=== PATIENT | female | born 1955 | race Caucasian/White ===

== ENCOUNTER 2020-10-29 08:35 | Outpatient (RCR) | payer MEDICARE, SELFPAY ==
[2016-06-02 07:59] VITALS: BMI 36.8
[2020-10-29] MEDS: COVID-19 VACC, MRNA(PFIZER)/PF 30 MCG/0.3 ML SYRINGE IM (10:51)
[2020-11-19] MEDS: COVID-19 VACC, MRNA(PFIZER)/PF 30 MCG/0.3 ML SYRINGE IM (10:34)
== END 2021-01-28 23:59 ==
LOC: IMMUN 08:35
PROVIDERS: PCP Family Medicine; Visit Provider Family Medicine
DX: Z23 Encounter for immunization (principal)
CPT/HCPCS: 0001A; 0002A; 91300

== ENCOUNTER → 2021-12-22 | Outpatient (CLI) | payer MEDICARE, SELFPAY ==
[2021-12-22 12:14] LABS: Absolute Lymphocyte Count 1.18 X10^3/uL (0.83-4.51); Absolute Neutrophil Count 2.2 X10^3/uL (2.0-7.7); Basophil# 0.01 X10^3/uL; Basophil% 0.3 % (0-1); Eosinophil# 0.08 X10^3/uL; Eosinophils% 2.1 % (0-5); Hematocrit 43.2 % (37-47); Hemoglobin 14.1 g/dL (12.0-15.0); Lymphocyte # 1.18 X10^3/ul (0.83-4.51); Lymphocyte % 31.6 % (19-41); Mean Corp Hgb Conc 32.6 g/dL (32-36); Mean Corpuscular Volume 101.2 fL (81-99); Mean Platelet Vol. 10.6 fl (6.2-12.0); Monocyte# 0.26 X10^3/uL; NRBC Flagged by Analyzer 0 % (0-5); Neutrophil # 2.18 X10^3/uL (2.7-7.7); Neutrophil % 58.5 % (47-70); Platelet Count 210 K/mm3 (150-450); RBC Distribution Width CV 13.7 % (11.6-14.6); RBC Distribution Width SD 51.3 fl (35.1-43.9); Red Blood Count 4.27 M/mm3 (4.2-5.4); White Blood Count 3.7 K/mm3 (4.4-11.0)
[2021-12-22 12:43] LABS: ALB/GLOB Ratio 1.3 RATIO (0.9-2.4); AST(SGOT) 22 U/L (15-37); Alanine Aminotransfer ALT/SGPT 19 U/L (13-56); Albumin, Serum 4.2 g/dL (3.2-5.0); Alkaline Phosphatase 92 U/L (45-117); Anion Gap 7 (5-15); BUN 16 mg/dL (7-18); BUN/Creat Ratio 21.7 RATIO (10-20); Calcium,Total 9.1 mg/dL (8.5-10.1); Chloride 104 mmol/L (98-107); Creatinine, Serum 0.74 mg/dL (0.55-1.02); EST Glomerular Filtration Rate 83 mL/min (>60); Est Glom Filt Rate - Afr Amer 101 mL/min (>60); Globulin 3.2 g/dL (2.2-4.2); Glucose 99 mg/dL (74-106); Potassium 3.7 mmol/L (3.5-5.1); Protein, Total 7.4 g/dL (6.4-8.2); Sodium Level 139 mmol/L (136-145)
== END | disposition home or self-care (01) ==
LOC: MTLAB 09:18
PROVIDERS: PCP Family Medicine; Referring Provider Internal Medicine Rheumatology; Visit Provider Internal Medicine Rheumatology
DX: M06.4 Inflammatory polyarthropathy (principal); R76.8 Other specified abnormal immunological findings in serum; M79.7 Fibromyalgia; M18.0 Bilateral primary osteoarthritis of first carpometacarpal joints; M19.041 Primary osteoarthritis, right hand; M47.897 Other spondylosis, lumbosacral region; M85.80 Other specified disorders of bone density and structure, unspecified site; I10 Essential (primary) hypertension; Z79.899 Other long term (current) drug therapy
CPT/HCPCS: 36415; 80053; 85025

== ENCOUNTER → 2022-02-16 | Outpatient (CLI) | payer MEDICARE, SELFPAY ==
[2022-02-16 12:36] LABS: Absolute Lymphocyte Count 1.22 X10^3/uL (0.83-4.51); Absolute Neutrophil Count 2.1 X10^3/uL (2.0-7.7); Basophil# 0.02 X10^3/uL; Basophil% 0.5 % (0-1); Eosinophil# 0.11 X10^3/uL; Hematocrit 42.7 % (37-47); Hemoglobin 14.2 g/dL (12.0-15.0); Lymphocyte # 1.22 X10^3/ul (0.83-4.51); Lymphocyte % 33.2 % (19-41); Mean Corp Hgb Conc 33.3 g/dL (32-36); Mean Corpuscular Hgb 33.5 pg (27.0-32.0); Mean Corpuscular Volume 100.7 fL (81-99); Mean Platelet Vol. 10.9 fl (6.2-12.0); Monocyte# 0.27 X10^3/uL; Monocyte% 7.3 % (0-10); NRBC Flagged by Analyzer 0 % (0-5); Neutrophil # 2.05 X10^3/uL (2.7-7.7); Neutrophil % 55.7 % (47-70); Platelet Count 196 K/mm3 (150-450); RBC Distribution Width CV 12.8 % (11.6-14.6); RBC Distribution Width SD 47.5 fl (35.1-43.9); Red Blood Count 4.24 M/mm3 (4.2-5.4); White Blood Count 3.7 K/mm3 (4.4-11.0)
[2022-02-16 12:55] LABS: ALB/GLOB Ratio 1.2 RATIO (0.9-2.4); AST(SGOT) 21 U/L (15-37); Alanine Aminotransfer ALT/SGPT 16 U/L (13-56); Alkaline Phosphatase 96 U/L (45-117); Anion Gap 7 (5-15); BUN 20 mg/dL (7-18); BUN/Creat Ratio 29.2 RATIO (10-20); Calcium,Total 9.3 mg/dL (8.5-10.1); Chloride 106 mmol/L (98-107); Creatinine, Serum 0.69 mg/dL (0.55-1.02); EST Glomerular Filtration Rate 91 mL/min (>60); Est Glom Filt Rate - Afr Amer 110 mL/min (>60); Globulin 3.2 g/dL (2.2-4.2); Glucose 102 mg/dL (74-106); Potassium 3.8 mmol/L (3.5-5.1); Protein, Total 7.2 g/dL (6.4-8.2); Sodium Level 140 mmol/L (136-145)
== END | disposition home or self-care (01) ==
LOC: MTLAB 09:34
PROVIDERS: PCP Family Medicine; Referring Provider Internal Medicine Rheumatology; Visit Provider Internal Medicine Rheumatology
DX: M06.4 Inflammatory polyarthropathy (principal); R76.8 Other specified abnormal immunological findings in serum; M18.0 Bilateral primary osteoarthritis of first carpometacarpal joints; M19.041 Primary osteoarthritis, right hand; M47.897 Other spondylosis, lumbosacral region; M85.80 Other specified disorders of bone density and structure, unspecified site; I10 Essential (primary) hypertension; L30.9 Dermatitis, unspecified; K57.90 Diverticulosis of intestine, part unspecified, without perforation or abscess without bleeding; L71.9 Rosacea, unspecified; Z79.899 Other long term (current) drug therapy
CPT/HCPCS: 36415; 80053; 85025

== ENCOUNTER → 2022-04-10 | Outpatient (CLI) | payer MEDICARE, SELFPAY ==
--- NOTE | 2022-04-10 10:05 | RAD_ITS ---
STUDY: X-RAY - LEFT KNEE REASON FOR EXAM: Female, 66 years old. Pain. TECHNIQUE: 4 view(s) of the knee. COMPARISON: None. FINDINGS: Osteopenia. Mild medial compartmental arthrosis. Mild arthrosis of the lateral compartment. Mild arthrosis of the patellofemoral compartment. Normal lateral femorotibial compartment.Vascular calcification. RAD/Knee 4 or More Views IMPRESSION: Osteopenia with tricompartmental arthrosis, most marked medially. No acute abnormality, chondrocalcinosis or erosive changes. Electronically Signed: Javier Epstein, at 10:45 EDT ,
--- NOTE | 2022-04-10 10:05 | RAD_ITS ---
STUDY: X-RAY - RIGHT KNEE REASON FOR EXAM: Female, 66 years old. Pain. TECHNIQUE: 4 view(s) of the knee. COMPARISON: None. FINDINGS: Osteopenia. Mild medial compartmental arthrosis. Mild arthrosis of the lateral compartment. Mild arthrosis of the patellofemoral compartment. Vascular calcification. RAD/Knee 4 or More Views IMPRESSION: Osteopenia with tricompartmental arthrosis, most marked medially. No acute abnormality, chondrocalcinosis or erosive changes. Electronically Signed: Javier Epstein, at 10:45 EDT ,
[2022-04-10 12:34] LABS: Absolute Lymphocyte Count 1.16 X10^3/uL (0.83-4.51); Absolute Neutrophil Count 2.4 X10^3/uL (2.0-7.7); Basophil# 0.02 X10^3/uL; Basophil% 0.5 % (0-1); Eosinophil# 0.12 X10^3/uL; Hematocrit 41.7 % (37-47); Hemoglobin 13.8 g/dL (12.0-15.0); Lymphocyte # 1.16 X10^3/ul (0.83-4.51); Lymphocyte % 28.9 % (19-41); Mean Corp Hgb Conc 33.1 g/dL (32-36); Mean Corpuscular Volume 102.7 fL (81-99); Mean Platelet Vol. 10.3 fl (6.2-12.0); Monocyte# 0.33 X10^3/uL; Monocyte% 8.2 % (0-10); NRBC Flagged by Analyzer 0 % (0-5); Neutrophil # 2.36 X10^3/uL (2.7-7.7); Neutrophil % 58.7 % (47-70); Platelet Count 209 K/mm3 (150-450); RBC Distribution Width CV 13.2 % (11.6-14.6); RBC Distribution Width SD 49.1 fl (35.1-43.9); Red Blood Count 4.06 M/mm3 (4.2-5.4)
[2022-04-10 12:56] LABS: ALB/GLOB Ratio 1.1 RATIO (0.9-2.4); AST(SGOT) 27 U/L (15-37); Alanine Aminotransfer ALT/SGPT 26 U/L (13-56); Albumin, Serum 3.9 g/dL (3.2-5.0); Alkaline Phosphatase 91 U/L (45-117); Anion Gap 5 (5-15); BUN 16 mg/dL (7-18); BUN/Creat Ratio 21.5 RATIO (10-20); Chloride 103 mmol/L (98-107); Creatinine, Serum 0.74 mg/dL (0.55-1.02); EST Glomerular Filtration Rate 82 mL/min (>60); Est Glom Filt Rate - Afr Amer 100 mL/min (>60); Globulin 3.5 g/dL (2.2-4.2); Glucose 108 mg/dL (74-106); Potassium 4.2 mmol/L (3.5-5.1); Protein, Total 7.4 g/dL (6.4-8.2); Sodium Level 137 mmol/L (136-145)
== END | disposition home or self-care (01) ==
PROVIDERS: PCP Family Medicine; Referring Provider Internal Medicine Rheumatology; Visit Provider Internal Medicine Rheumatology
DX: M06.4 Inflammatory polyarthropathy (principal); R76.8 Other specified abnormal immunological findings in serum; M79.7 Fibromyalgia; M18.0 Bilateral primary osteoarthritis of first carpometacarpal joints; M19.041 Primary osteoarthritis, right hand; M47.897 Other spondylosis, lumbosacral region; M85.80 Other specified disorders of bone density and structure, unspecified site; Z79.899 Other long term (current) drug therapy
CPT/HCPCS: 36415; 73564; 80053; 85025

== ENCOUNTER → 2022-06-02 | Outpatient (CLI) | payer MEDICARE, SELFPAY ==
[2022-06-02 10:14] LABS: Absolute Lymphocyte Count 1.08 X10^3/uL (0.83-4.51); Absolute Neutrophil Count 2.7 X10^3/uL (2.0-7.7); Basophil# 0.03 X10^3/uL; Basophil% 0.7 % (0-1); Eosinophil# 0.11 X10^3/uL; Eosinophils% 2.6 % (0-5); Hematocrit 40.1 % (37-47); Hemoglobin 13.2 g/dL (12.0-15.0); Lymphocyte # 1.08 X10^3/ul (0.83-4.51); Lymphocyte % 25.8 % (19-41); Mean Corp Hgb Conc 32.9 g/dL (32-36); Mean Corpuscular Hgb 34.4 pg (27.0-32.0); Mean Corpuscular Volume 104.4 fL (81-99); Mean Platelet Vol. 10.3 fl (6.2-12.0); Monocyte# 0.31 X10^3/uL; Monocyte% 7.4 % (0-10); NRBC Flagged by Analyzer 0 % (0-5); Neutrophil # 2.65 X10^3/uL (2.7-7.7); Neutrophil % 63.3 % (47-70); Platelet Count 222 K/mm3 (150-450); RBC Distribution Width CV 13.3 % (11.6-14.6); Red Blood Count 3.84 M/mm3 (4.2-5.4); White Blood Count 4.2 K/mm3 (4.4-11.0)
[2022-06-02 10:37] LABS: ALB/GLOB Ratio 1.1 RATIO (0.9-2.4); AST(SGOT) 25 U/L (15-37); Alanine Aminotransfer ALT/SGPT 23 U/L (13-56); Albumin, Serum 3.8 g/dL (3.2-5.0); Alkaline Phosphatase 93 U/L (45-117); Anion Gap 5 (5-15); BUN 26 mg/dL (7-18); BUN/Creat Ratio 37.2 RATIO (10-20); Calcium,Total 9.1 mg/dL (8.5-10.1); Chloride 108 mmol/L (98-107); EST Glomerular Filtration Rate 89 mL/min (>60); Est Glom Filt Rate - Afr Amer 107 mL/min (>60); Globulin 3.5 g/dL (2.2-4.2); Glucose 110 mg/dL (74-106); Protein, Total 7.3 g/dL (6.4-8.2); Sodium Level 142 mmol/L (136-145)
== END | disposition home or self-care (01) ==
LOC: MTLAB 08:33
PROVIDERS: PCP Family Medicine; Referring Provider Internal Medicine Rheumatology; Visit Provider Internal Medicine Rheumatology
DX: M06.4 Inflammatory polyarthropathy (principal); R76.8 Other specified abnormal immunological findings in serum; M79.7 Fibromyalgia; M17.0 Bilateral primary osteoarthritis of knee; M18.0 Bilateral primary osteoarthritis of first carpometacarpal joints; M19.041 Primary osteoarthritis, right hand; M47.897 Other spondylosis, lumbosacral region; M85.80 Other specified disorders of bone density and structure, unspecified site; I10 Essential (primary) hypertension; K21.9 Gastro-esophageal reflux disease without esophagitis; R51.9 Headache, unspecified; J30.9 Allergic rhinitis, unspecified; L30.9 Dermatitis, unspecified; K57.90 Diverticulosis of intestine, part unspecified, without perforation or abscess without bleeding; L71.9 Rosacea, unspecified; N39.46 Mixed incontinence; N95.2 Postmenopausal atrophic vaginitis; Z79.899 Other long term (current) drug therapy
CPT/HCPCS: 36415; 80053; 85025

== ENCOUNTER → 2022-08-26 | Outpatient (CLI) | payer MEDICARE, SELFPAY ==
[2022-08-26 10:07] LABS: Absolute Lymphocyte Count 1.09 X10^3/uL (0.83-4.51); Absolute Neutrophil Count 2.1 X10^3/uL (2.0-7.7); Basophil# 0.03 X10^3/uL; Basophil% 0.8 % (0-1); Eosinophil# 0.13 X10^3/uL; Eosinophils% 3.6 % (0-5); Hematocrit 42.2 % (37-47); Hemoglobin 13.7 g/dL (12.0-15.0); Lymphocyte # 1.09 X10^3/ul (0.83-4.51); Lymphocyte % 30.3 % (19-41); Mean Corp Hgb Conc 32.5 g/dL (32-36); Mean Corpuscular Hgb 34.3 pg (27.0-32.0); Mean Corpuscular Volume 105.5 fL (81-99); Mean Platelet Vol. 10.2 fl (6.2-12.0); Monocyte# 0.23 X10^3/uL; Monocyte% 6.4 % (0-10); NRBC Flagged by Analyzer 0 % (0-5); Neutrophil # 2.12 X10^3/uL (2.7-7.7); Neutrophil % 58.9 % (47-70); Platelet Count 184 K/mm3 (150-450); RBC Distribution Width CV 12.9 % (11.6-14.6); RBC Distribution Width SD 50.3 fl (35.1-43.9); White Blood Count 3.6 K/mm3 (4.4-11.0)
[2022-08-26 10:34] LABS: ALB/GLOB Ratio 1.4 RATIO (0.9-2.4); AST(SGOT) 19 U/L (15-37); Alanine Aminotransfer ALT/SGPT 20 U/L (13-56); Albumin, Serum 4.1 g/dL (3.2-5.0); Alkaline Phosphatase 81 U/L (45-117); Anion Gap 4 (5-15); BUN 15 mg/dL (7-18); BUN/Creat Ratio 17.7 RATIO (10-20); Calcium,Total 9.4 mg/dL (8.5-10.1); Chloride 104 mmol/L (98-107); Creatinine, Serum 0.85 mg/dL (0.55-1.02); EST Glomerular Filtration Rate 71 mL/min (>60); Est Glom Filt Rate - Afr Amer 86 mL/min (>60); Glucose 96 mg/dL (74-106); Potassium 4.1 mmol/L (3.5-5.1); Protein, Total 7.1 g/dL (6.4-8.2); Sodium Level 140 mmol/L (136-145)
== END | disposition home or self-care (01) ==
LOC: MTLAB 08:07
PROVIDERS: PCP Family Medicine; Referring Provider Internal Medicine Rheumatology; Visit Provider Internal Medicine Rheumatology
DX: M06.4 Inflammatory polyarthropathy (principal); R76.8 Other specified abnormal immunological findings in serum; Z79.899 Other long term (current) drug therapy
CPT/HCPCS: 36415; 80053; 85025

== ENCOUNTER → 2022-11-20 | Outpatient (CLI) | payer MEDICARE, SELFPAY ==
[2022-11-20 12:12] LABS: Absolute Lymphocyte Count 1.05 X10^3/uL (0.83-4.51); Absolute Neutrophil Count 2.1 X10^3/uL (2.0-7.7); Basophil# 0.03 X10^3/uL; Basophil% 0.8 % (0-1); Eosinophil# 0.11 X10^3/uL; Eosinophils% 3.1 % (0-5); Hematocrit 41.4 % (37-47); Hemoglobin 13.5 g/dL (12.0-15.0); Lymphocyte # 1.05 X10^3/ul (0.83-4.51); Lymphocyte % 29.2 % (19-41); Mean Corp Hgb Conc 32.6 g/dL (32-36); Mean Corpuscular Hgb 34.3 pg (27.0-32.0); Mean Corpuscular Volume 105.1 fL (81-99); Mean Platelet Vol. 10.4 fl (6.2-12.0); Monocyte# 0.32 X10^3/uL; Monocyte% 8.9 % (0-10); NRBC Flagged by Analyzer 0 % (0-5); Neutrophil # 2.08 X10^3/uL (2.7-7.7); Neutrophil % 57.7 % (47-70); Platelet Count 189 K/mm3 (150-450); RBC Distribution Width CV 12.7 % (11.6-14.6); RBC Distribution Width SD 48.8 fl (35.1-43.9); Red Blood Count 3.94 M/mm3 (4.2-5.4); White Blood Count 3.6 K/mm3 (4.4-11.0)
[2022-11-20 12:47] LABS: ALB/GLOB Ratio 1.3 RATIO (0.9-2.4); AST(SGOT) 22 U/L (15-37); Alanine Aminotransfer ALT/SGPT 21 U/L (13-56); Albumin, Serum 4.1 g/dL (3.2-5.0); Alkaline Phosphatase 86 U/L (45-117); Anion Gap 3 (5-15); BUN 17 mg/dL (7-18); BUN/Creat Ratio 20.3 RATIO (10-20); Calcium,Total 9.3 mg/dL (8.5-10.1); Chloride 105 mmol/L (98-107); Creatinine, Serum 0.84 mg/dL (0.55-1.02); EST Glomerular Filtration Rate 72 mL/min (>60); Est Glom Filt Rate - Afr Amer 87 mL/min (>60); Globulin 3.2 g/dL (2.2-4.2); Glucose 93 mg/dL (74-106); Potassium 3.8 mmol/L (3.5-5.1); Protein, Total 7.3 g/dL (6.4-8.2); Sodium Level 140 mmol/L (136-145)
== END | disposition home or self-care (01) ==
LOC: MTLAB 10:16
PROVIDERS: PCP Family Medicine; Referring Provider Internal Medicine Rheumatology; Visit Provider Internal Medicine Rheumatology
DX: M06.4 Inflammatory polyarthropathy (principal); R76.8 Other specified abnormal immunological findings in serum; M79.7 Fibromyalgia; M17.0 Bilateral primary osteoarthritis of knee; M18.0 Bilateral primary osteoarthritis of first carpometacarpal joints; M19.041 Primary osteoarthritis, right hand; M47.897 Other spondylosis, lumbosacral region; M85.80 Other specified disorders of bone density and structure, unspecified site; I10 Essential (primary) hypertension; K21.9 Gastro-esophageal reflux disease without esophagitis; R51.9 Headache, unspecified; J30.9 Allergic rhinitis, unspecified; L30.9 Dermatitis, unspecified; K57.90 Diverticulosis of intestine, part unspecified, without perforation or abscess without bleeding; L71.9 Rosacea, unspecified; N39.46 Mixed incontinence; N95.2 Postmenopausal atrophic vaginitis; Z79.899 Other long term (current) drug therapy
CPT/HCPCS: 36415; 80053; 85025

== ENCOUNTER → 2023-02-05 | Outpatient (CLI) | payer MEDICARE, SELFPAY ==
[2023-02-05 12:27] LABS: Absolute Neutrophil Count 1.9 X10^3/uL (2.0-7.7); Basophil# 0.03 X10^3/uL; Basophil% 0.9 % (0-1); Eosinophil# 0.09 X10^3/uL; Eosinophils% 2.7 % (0-5); Hematocrit 42.8 % (37-47); Hemoglobin 14.2 g/dL (12.0-15.0); Lymphocyte % 32.4 % (19-41); Mean Corp Hgb Conc 33.2 g/dL (32-36); Mean Corpuscular Hgb 35.1 pg (27.0-32.0); Mean Corpuscular Volume 105.9 fL (81-99); Mean Platelet Vol. 10.3 fl (6.2-12.0); Monocyte# 0.22 X10^3/uL; Monocyte% 6.5 % (0-10); NRBC Flagged by Analyzer 0 % (0-5); Neutrophil # 1.94 X10^3/uL (2.7-7.7); Neutrophil % 57.2 % (47-70); Platelet Count 204 K/mm3 (150-450); RBC Distribution Width CV 12.7 % (11.6-14.6); RBC Distribution Width SD 49.8 fl (35.1-43.9); Red Blood Count 4.04 M/mm3 (4.2-5.4); White Blood Count 3.4 K/mm3 (4.4-11.0)
[2023-02-05 12:54] LABS: ALB/GLOB Ratio 1.1 RATIO (0.9-2.4); AST(SGOT) 20 U/L (15-37); Alanine Aminotransfer ALT/SGPT 17 U/L (13-56); Alkaline Phosphatase 88 U/L (45-117); Anion Gap 6 (5-15); BUN 14 mg/dL (7-18); BUN/Creat Ratio 17.6 RATIO (10-20); Calcium,Total 9.4 mg/dL (8.5-10.1); Chloride 105 mmol/L (98-107); EST Glomerular Filtration Rate 76 mL/min (>60); Est Glom Filt Rate - Afr Amer 92 mL/min (>60); Globulin 3.6 g/dL (2.2-4.2); Glucose 134 mg/dL (74-106); Potassium 3.8 mmol/L (3.5-5.1); Protein, Total 7.6 g/dL (6.4-8.2); Sodium Level 140 mmol/L (136-145)
== END | disposition home or self-care (01) ==
LOC: MTLAB 10:50
PROVIDERS: PCP Family Medicine; Referring Provider Internal Medicine Rheumatology; Visit Provider Internal Medicine Rheumatology
DX: M06.4 Inflammatory polyarthropathy (principal); R76.8 Other specified abnormal immunological findings in serum; Z79.899 Other long term (current) drug therapy
CPT/HCPCS: 36415; 80053; 85025

== ENCOUNTER → 2023-05-07 | Outpatient (CLI) | payer MEDICARE, SELFPAY ==
[2023-05-07 12:04] LABS: Absolute Neutrophil Count 1.9 X10^3/uL (2.0-7.7); Basophil# 0.03 X10^3/uL; Basophil% 0.9 % (0-1); Eosinophil# 0.12 X10^3/uL; Eosinophils% 3.5 % (0-5); Hemoglobin 13.5 g/dL (12.0-15.0); Lymphocyte % 31.7 % (19-41); Mean Corp Hgb Conc 32.9 g/dL (32-36); Mean Corpuscular Hgb 34.8 pg (27.0-32.0); Mean Corpuscular Volume 105.7 fL (81-99); Mean Platelet Vol. 10.1 fl (6.2-12.0); Monocyte# 0.32 X10^3/uL; Monocyte% 9.2 % (0-10); NRBC Flagged by Analyzer 0 % (0-5); Neutrophil # 1.89 X10^3/uL (2.7-7.7); Neutrophil % 54.4 % (47-70); Platelet Count 190 K/mm3 (150-450); RBC Distribution Width SD 49.9 fl (35.1-43.9); Red Blood Count 3.88 M/mm3 (4.2-5.4); White Blood Count 3.5 K/mm3 (4.4-11.0)
[2023-05-07 12:45] LABS: ALB/GLOB Ratio 1.2 RATIO (0.9-2.4); AST(SGOT) 20 U/L (15-37); Alanine Aminotransfer ALT/SGPT 18 U/L (13-56); Alkaline Phosphatase 84 U/L (45-117); Anion Gap 5 (5-15); BUN 17 mg/dL (7-18); BUN/Creat Ratio 19.6 RATIO (10-20); Calcium,Total 9.1 mg/dL (8.5-10.1); Chloride 106 mmol/L (98-107); Creatinine, Serum 0.87 mg/dL (0.55-1.02); EST Glomerular Filtration Rate 69 mL/min (>60); Est Glom Filt Rate - Afr Amer 83 mL/min (>60); Globulin 3.2 g/dL (2.2-4.2); Glucose 104 mg/dL (74-106); Potassium 4.1 mmol/L (3.5-5.1); Protein, Total 7.2 g/dL (6.4-8.2); Sodium Level 139 mmol/L (136-145)
== END | disposition home or self-care (01) ==
LOC: MTLAB 10:36
PROVIDERS: PCP Family Medicine; Referring Provider Internal Medicine Rheumatology; Visit Provider Internal Medicine Rheumatology
DX: M06.4 Inflammatory polyarthropathy (principal); R76.8 Other specified abnormal immunological findings in serum; M79.7 Fibromyalgia; M17.0 Bilateral primary osteoarthritis of knee; M18.0 Bilateral primary osteoarthritis of first carpometacarpal joints; M19.041 Primary osteoarthritis, right hand; M47.897 Other spondylosis, lumbosacral region; I10 Essential (primary) hypertension; K21.9 Gastro-esophageal reflux disease without esophagitis; R51.9 Headache, unspecified; J30.9 Allergic rhinitis, unspecified; L30.9 Dermatitis, unspecified; K57.90 Diverticulosis of intestine, part unspecified, without perforation or abscess without bleeding; Z79.899 Other long term (current) drug therapy
CPT/HCPCS: 36415; 80053; 85025

== ENCOUNTER → 2023-07-23 | Outpatient (CLI) | payer MEDICARE, SELFPAY ==
[2023-07-23 12:27] LABS: Absolute Lymphocyte Count 0.92 X10^3/uL (0.83-4.51); Absolute Neutrophil Count 3.4 X10^3/uL (2.0-7.7); Basophil# 0.03 X10^3/uL; Basophil% 0.6 % (0-1); Eosinophil# 0.16 X10^3/uL; Eosinophils% 3.4 % (0-5); Hemoglobin 13.9 g/dL (12.0-15.0); Lymphocyte # 0.92 X10^3/ul (0.83-4.51); Lymphocyte % 19.4 % (19-41); Mean Corp Hgb Conc 32.3 g/dL (32-36); Mean Corpuscular Hgb 34.7 pg (27.0-32.0); Mean Corpuscular Volume 107.2 fL (81-99); Mean Platelet Vol. 10.2 fl (6.2-12.0); Monocyte# 0.27 X10^3/uL; Monocyte% 5.7 % (0-10); NRBC Flagged by Analyzer 0 % (0-5); Neutrophil # 3.36 X10^3/uL (2.7-7.7); Neutrophil % 70.7 % (47-70); Platelet Count 196 K/mm3 (150-450); RBC Distribution Width CV 12.7 % (11.6-14.6); RBC Distribution Width SD 50.3 fl (35.1-43.9); Red Blood Count 4.01 M/mm3 (4.2-5.4); White Blood Count 4.8 K/mm3 (4.4-11.0)
[2023-07-23 13:22] LABS: ALB/GLOB Ratio 1.1 RATIO (0.9-2.4); AST(SGOT) 18 U/L (15-37); Alanine Aminotransfer ALT/SGPT 17 U/L (13-56); Alkaline Phosphatase 83 U/L (45-117); Anion Gap 4 (5-15); BUN 18 mg/dL (7-18); BUN/Creat Ratio 21.1 RATIO (10-20); Calcium,Total 9.1 mg/dL (8.5-10.1); Chloride 106 mmol/L (98-107); Creatinine, Serum 0.85 mg/dL (0.55-1.02); EST Glomerular Filtration Rate 70 mL/min (>60); Est Glom Filt Rate - Afr Amer 85 mL/min (>60); Globulin 3.5 g/dL (2.2-4.2); Glucose 103 mg/dL (74-106); Potassium 3.7 mmol/L (3.5-5.1); Protein, Total 7.5 g/dL (6.4-8.2); Sodium Level 141 mmol/L (136-145)
== END | disposition home or self-care (01) ==
LOC: MTLAB 11:00
PROVIDERS: PCP Family Medicine; Referring Provider Internal Medicine Rheumatology; Visit Provider Internal Medicine Rheumatology
DX: M06.4 Inflammatory polyarthropathy (principal); R76.8 Other specified abnormal immunological findings in serum; M79.7 Fibromyalgia; M17.0 Bilateral primary osteoarthritis of knee; M18.0 Bilateral primary osteoarthritis of first carpometacarpal joints; M19.041 Primary osteoarthritis, right hand; Z79.899 Other long term (current) drug therapy
CPT/HCPCS: 36415; 80053; 85025

== ENCOUNTER → 2023-10-22 | Outpatient (CLI) | payer MEDICARE, SELFPAY ==
--- OUTSIDE RECORDS SUMMARY | 2023-10-22 11:23 | XMS RPT_ITS | CCD ---
Author Name Unknown Address [address] [place] [address] Organization [facility] Care Team Providers Care Art Objects Supervisor Name Role Phone Leola Fry MD Primary Care Provider LEOLA FRY Primary Care Unavailable GINO CISSE Referring Unavailab GINO Downey Attending LEOLA Malagon Primary Care Unavailable MAGNO AGUIAR Referring Unavailable LEOLA FRY Primary Care Unavailable LEOLA FRY Primary Care Unavailable MAGNO AGUIAR Attending Unavailable LEOLA FRY Primary Care Unavailable MAGNO AGUIAR Referring Unavailable LEOLA FRY Primary Care Unavailable GINO CISSE Attending Unavailab correa Allergies Allergy Classification Reported Allergen(s) Allergy Type Date of Onset Reaction(s) Facility (16 sources) diphenhydrAMINE; Translations: [DIPHENHYDRAMINE HCL] Drug Allergy 6 Other: See Comments [facility] Work Phone: (16 sources) lansoprazole; Translations: [LANSOPRAZOLE] Drug Allergy 6 Hives [facility] Work Phone: (16 sources) Latex; Translations: [LATEX] Propensity to adverse reactions to drug 0 Unknown [facility] Work Phone: (14 sources) environmental [Other] Propensity to adverse reactions 0 Unknown [facility] Work Phone: (14 sources) Adhesive agent; Translations: [ADHESIVE] Drug Allergy 6 Unknown [facility] (1 source) OTHER; Translations: [OTHER] Propensity to adverse reactions (disorder) 0 [facility] Repository Medications Current Medications Medication Drug Class(es) Dates Sig (Normalized) Sig (Original) doxycycline monohydrate 100 mg oral capsule (1 source) Tetracycline-clas s Drug Start: 06-18-2022 End: 06-18-2022 take 2 capsules by mouth once doxycycline monohydrate (MONODOX) 100 mg capsule Indications: Tick bite of right thigh, initial encounter Take 2 capsules by mouth one time only for 1 dose. 2 capsule 0 06/18/2022 06/18/2022 Active Completed/Discontinued Medications Medication Drug Class(es) Dates Sig (Normalized) Sig (Original) ascorbic acid 1000 mg oral tablet (15 sources) Vitamin C Start: 09-27-2018 take 1 tablet by mouth once daily Ascorbic Acid 1,000 mg tablet Take 1,000 mg by mouth once daily. 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 Disorders of lipid metabolism (18 sources) Mixed hyperlipidemia; Translations: [Mixed hyperlipidemia] Onset: 0 08-28-2019 Chronic Diverticulosis and diverticulitis (16 sources) Diverticular disease; Translations: [Diverticulosis of intestine, part unspecified, without perforation or abscess without bleeding] Chronic E Codes: Natural/environment (1 source) Bitten by cat, initial encounter; Translations: [Cat bite of left hand, initial encounter] Onset: 4 Episodic Esophageal disorders (16 sources) Gastroesophageal reflux disease without esophagitis; Translations: [Gastro-esophageal reflux disease without esophagitis] Onset: 0 08-28-2019 Chronic Essential hypertension (20 sources) Essential hypertension; Translations: [Essential (primary) hypertension] Onset: 0 08-28-2019 Chronic Genitourinary symptoms and ill-defined conditions (20 sources) Mixed urinary incontinence; Translations: [Mixed incontinence] Onset: 2 08-28-2019 Chronic Hemorrhoids (16 sources) Internal hemorrhoids; Translations: [Other hemorrhoids] Episodic Menopausal disorders (15 sources) Atrophic vaginitis; Translations: [Postmenopausal atrophic vaginitis] Onset: 2 08-28-2019 Chronic Mycoses (1 source) Onychomycosis; Translations: [Tinea unguium] Episodic Open wounds of extremities (1 source) Open bite of left hand, initial encounter; Translations: [Cat bite of left hand, initial encounter] Onset: 4 Episodic Osteoarthritis (11 sources) Arthritis; Translations: [Unspecified osteoarthritis, unspecified site] Onset: 3 Chronic Other gastrointestinal disorders (1 source) Dysphagia; Translations: [Dysphagia, unspecified] Episodic Other inflammatory condition of skin (15 sources) Rosacea; Translations: [Rosacea, unspecified] 08-28-2019 Chronic Other nutritional; endocrine; and metabolic disorders (1 source) Severe obesity; Translations: [Morbid (severe) obesity due to excess calories] Onset: 4 09-21-2023 Chronic Other upper respiratory disease (15 sources) Allergic rhinitis; Translations: [Allergic rhinitis, unspecified] Onset: 0 08-28-2019 Chronic Residual codes; unclassified (1 source) Menopause present; Translations: [Asymptomatic menopausal state] 10-06-2023 Episodic Skin and subcutaneous tissue infections (1 source) Cellulitis, unspecified; Translations: [Cellulitis of skin] Onset: 4 Episodic Superficial injury; contusion (1 source) Tick bite; Translations: [Insect bite (nonvenomous), right thigh, initial encounter] Episodic Thyroid disorders (17 sources) Cassidy thyroiditis; Translations: [Autoimmune thyroiditis] Onset: 2 10-21-2021 Chronic Unclassified (15 sources) Herniated urinary bladder; Translations: [Cystocele] Onset: 3 08-28-2019 Past or Other Problems Problem Classification Problem Date Documented Da te Episodic/Chronic Administrative/social admission (11 sources) Advance directive discussed with patient; Translations: [Other specified counseling] Onset: 09-21-2022 Episodic Allergic reactions (15 sources) Eczema; Translations: [Dermatitis, unspecified] Onset: 08-28-2019 08-28-2019 Episodic Diabetes mellitus without complication (12 sources) Increased glucose level; Translations: [Other abnormal glucose] Onset: 09-21-2022 Episodic Headache; including migraine (15 sources) Sinus headache; Translations: [Sinus headache] Onset: 08-28-2019 08-28-2019 Episodic Immunizations and screening for infectious disease (14 sources) Anti-nuclear factor positive; Translations: [Other specified abnormal immunological findings in serum] Onset: 09-25-2021 09-25-2021 Episodic Other acquired deformities (15 sources) Lumbar spondylolisthesis; Translations: [Spondylolisthesis, lumbar region] Onset: 09-23-2021 09-23-2021 Episodic Other aftercare (20 sources) Patient encounter status; Translations: [Other summer analyst (current) drug therapy] Onset: 08-28-2019 08-28-2019 Episodic Other and unspecified benign neoplasm (15 sources) History of polyp of colon; Translations: [Personal history of colonic polyps] Onset: 09-19-2021 09-19-2021 Episodic Other bone disease and musculoskeletal deformities (15 sources) Senile osteopenia; Translations: [Other specified disorders of bone density and structure, unspecified site] Onset: 08-31-2019 10-17-2021 Episodic Other connective tissue disease (15 sources) Calcaneal spur; Translations: [Calcaneal spur, unspecified foot] Onset: 07-14-2005 08-28-2019 Episodic Other connective tissue disease (16 sources) Fibromyalgia; Translations: [Fibromyalgia] Onset: 08-28-2019 08-28-2019 Episodic Other connective tissue disease (15 sources) Pain in bilateral legs; Translations: [Pain in right leg] Onset: 09-19-2021 09-19-2021 Episodic Other screening for suspected conditions (not mental disorders or infectious disease) (1 source) Encounter for screening mammogram for malignant neoplasm of breast; Translations: [Encounter for screening mammogram for breast cancer] Onset: 08-28-2019 Episodic Residual codes; unclassified (15 sources) FH: Thyroid disorder; Translations: [Family history of other endocrine, nutritional and metabolic diseases] Onset: 08-28-2019 08-28-2019 Episodic Residual codes; unclassified (1 source) Family history of other endocrine, nutritional and metabolic diseases; Translations: [Family history of thyroid disease] Onset: 08-28-2019 Episodic Spondylosis; intervertebral disc disorders; other back problems (15 sources) Low back pain; Translations: [Lumbago] Onset: 02-20-2008 08-28-2019 Episodic Results Test Name Value Interpretation Reference Range Facil ity Vital Signs Date Time Vital Sign Value Performing Clinician Seda galicia 09-21-2022 09:12-0500 Body height 157 cm Magno Aguiar PA-C Work Phone: [facility] 09-21-2022 09:12-0500 Body weight 87.73 kg Magno RICHARDSON-C Work Phone: [facility] 09-21-2022 09:12-0500 Diastolic blood pressure 80 mm[Hg] Magno RICHARDSON-C Work Phone: [facility] 09-21-2022 09:12-0500 Heart rate 68 /min Magno RICHARDSON-C Work Phone: [facility] 09-21-2022 09:12-0500 Respiratory rate 16 /min Magno RICHARDSON-C Work Phone: [facility] 09-21-2022 09:12-0500 Systolic blood pressure 132 mm[Hg] Magno RICHARDSON-C Work Phone: [facility] 06-18-2022 10:05-0400 Body temperature 97.7 [degF] Chapis Sherley SAP BODS DEVELOPER.VENDOR MANAGEMENT ASSOCIATE Work Phone: [facility] 06-18-2022 10:05-0400 Body weight 87.54 kg Chapismariah Lepe SAP BODS DEVELOPER.VENDOR MANAGEMENT ASSOCIATE Work Phone: [facility] 06-18-2022 10:05-0400 Diastolic blood pressure 88 mm[Hg] Chapis Sherley SAP BODS DEVELOPER.VENDOR MANAGEMENT ASSOCIATE Work Phone: [facility] 06-18-2022 10:05-0400 Heart rate 80 /min Chapis Sherley SAP BODS DEVELOPER.VENDOR MANAGEMENT ASSOCIATE Work Phone: [facility] 06-18-2022 10:05-0400 Respiratory rate 18 /min Chapis Sherley SAP BODS DEVELOPER.VENDOR MANAGEMENT ASSOCIATE Work Phone: [facility] 06-18-2022 10:05-0400 SaO2% (BldA) [Mass fraction] 98 % Chapis Sherley SAP BODS DEVELOPER.VENDOR MANAGEMENT ASSOCIATE Work Phone: [facility] 06-18-2022 10:05-0400 Systolic blood pressure 162 mm[Hg] Chapismariah Cavanaughk SAP BODS DEVELOPER.VENDOR MANAGEMENT ASSOCIATE Work Phone: [facility] 11-12-2021 10:03-0400 Body height 154.9 cm Sayra Katey PA-C Work Phone: [facility] 11-12-2021 10:03-0400 Body temperature 98.01 [degF] Sayra [place] PA-C Work Phone: [facility] 11-12-2021 10:03-0400 Body weight 84.37 kg Sayra Katey PA-C Work Phone: [facility] 11-12-2021 10:03-0400 Diastolic blood pressure 78 mm[Hg] Sayra [place] PA-C Work Phone: [facility] 11-12-2021 10:03-0400 Heart rate 72 /min Sayra Katey PA-C Work Phone: [facility] 11-12-2021 10:03-0400 SaO2% (BldA) [Mass fraction] 96 % Sayra Katey PA-C Work Phone: [facility] 11-12-2021 10:03-0400 Systolic blood pressure 122 mm[Hg] Syara [place] PA-C Work Phone: [facility] Encounters Encounter Date Encounter Type Care Provider Facility Start: 10-06-2023 Telephone encounter Leola Fry MD Work Phone: [facility] Procedures Date Procedure Procedure Detail Performing Clinician Start: 09-20-2023 Lipid 1996 panel - S fabiano or Plasma Leola Fry MD Work Phone: Start: 11-06-2022 End: 11-06-2022 Mammography Magno RICHARDSON- C Work Phone: Start: 09-21-2022 Hemoglobin A1c/Hemoglobin.total in Blood Magno RICHARDSON-C Work Phone: Start: 09-10-2022 Lipid 1996 panel - S fabiano or Plasma Leola Fry MD Work Phone: Start: 10-29-2021 Colonoscopy Sayra toribio PA-C Work Phone: Start: 10-07-2021 Mammography Sayra toribio PA-C Work Phone: Plan of Treatment Date Care Activity Detail Author Start: 08-24-2033 Urine microalbumin profile DTa P,Tdap,Td Vaccine (2 - Td or Tdap) [facility] Start: 09-20-2028 Lipid panel Lipid Screening [facility] Start: 09-10-2027 Lipid 1996 panel - S fabiano or Plasma Lipid Screening [facility] Start: 09-10-2027 LIPID SCREEN LIPID SCREEN [facility] Start: 09-20-2026 Diabetes Screening Diabetes Screenin g [facility] Start: 09-02-2026 LIPID SCREEN LIPID SCREEN [facility] Start: 09-21-2025 DIABETES SCREEN DIABETES SCREEN [facility] Start: 09-21-2025 Diabetes Screening Diabetes Screenin g [facility] Start: 10-06-2024 DIABETES SCREEN DIABETES SCREEN [facility] Start: 09-21-2024 Annual PCP Team Informatics Nurse lito Disease Visit Annual PCP Team Chronic Disease Visit [facility] Start: 09-21-2024 BP Controlled (<130/80) BP Controlle d (<130/80) [facility] Start: 09-21-2024 Covid-19 Vaccine ( season) Covid-19 Vaccine ( season) [facility] Immunizations Immunization Date Immunization Notes Care Provider Fa cility 08-24-2023 tetanus toxoid, redu angelic diphtheria toxoid, and acellular pertussis vaccine, adsorbed Leola Fry MD Work Phone: [facility] 06-21-2023 influenza (aIIV4) vaccine, age 65+ yr, quadrivalent, PF (FLUAD QUAD) Leola Fry MD Work Phone: [facility] Work Phone: 05-18-2022 influenza (aIIV4) vaccine, age 65+ yr, quadrivalent, PF (FLUAD QUAD) Leola Fry MD Work Phone: [facility] Work Phone: 05-18-2022 influenza virus vacc ine, unspecified formulation Leola Fry MD Work Phone: [facility] 05-01-2021 influenza (HD-IIV4) vaccine, age 65+ yr, high dose, quadrivalent, PF (FLUZONE HIGH-DOSE) Leola Fry MD Work Phone: [facility] Work Phone: 05-01-2021 influenza, high dose seasonal, preservative-free Sayra Katey PA-C Work Phone: [facility] 04-23-2021 zoster vaccine recombinant Sayra [place] PA-C Work Phone: [facility] 01-21-2021 zoster vaccine recombinant Sayra [place] PA-C Work Phone: [facility] 11-19-2020 COVID-19 vaccine, ag e 12+ yr (PFIZER-BIONTECH - PURPLE TOP) Sayra Katey PA-C Work Phone: [facility] 10-29-2020 COVID-19 vaccine, ag e 12+ yr (PFIZER-BIONTECH - PURPLE TOP) Sayra Katey PA-C Work Phone: [facility] 09-18-2020 pneumococcal polysaccharide vaccine, 23 valent Sayra Katey PA-C Work Phone: [facility] 05-25-2020 influenza, high-dose , quadrivalent vaccine (FLUZONE HIGH DOSE QUADRIVALENT) Sayra [place] PA-C Work Phone: [facility] 08-28-2019 pneumococcal conjuga te vaccine, 13 valent Sayra [place] PA-C Work Phone: [facility] Work Phone: 06-17-2019 influenza, high dose seasonal, preservative-free Sayra [place] PA-C Work Phone: [facility] 05-02-2018 influenza, injectabl e, quadrivalent, contains preservative Sayra [place] PA-C Work Phone: [facility] 07-06-2017 influenza, seasonal, injectable Sayra Katey PA-C Work Phone: [facility] 08-12-2016 influenza, seasonal, injectable Sayra [place] PA-C Work Phone: [facility] 05-23-2014 influenza, seasonal, injectable Sayra [place] PA-C Work Phone: [facility] Work Phone: 05-23-2012 influenza virus vacc ine, unspecified formulation Sayra Katey PA-C Work Phone: [facility] Payers Date Payer Category Payer Medicare AENA MEDICARE A ETNA MEDICARE PPO [id number] 2021-Present [phone] [address] [place] [address] PPO [id number] 2021 Medicare AETNA MEDICARE A ETNA MEDICARE PPO [id number] 2021-Present [phone] [address] [place] [address] PPO [id number] 2021 Medicare [id number] Social History Date Type Detail Facility Start: 06-18-2022 Tobacco smoking stat us NMIS Never smoked tobacco [facility] Start: 11-12-2021 End: 09-21-2023 Alcohol intake Current non-drinker of alcohol (finding) [facility] Start: 1955 Sex Assigned At Not on file [facility] Start: 11-02-2021 End: 06-18-2022 Exposure to SARS-CoV-2 (event) Not sure [facility] Start: 06-18-2022 Tobacco use and exposure Smokeless tobacco non-user [facility] Start: 09-21-2022 End: 01-04-2024 History of Social function [facility] Work Phone: Start: 09-21-2022 End: 08-26-2023 Tobacco use panel [facility] Work Phone: Adult Depression Screening Assessment 0 [facility] Work Phone: Clinical Notes 08-03-2012 to 10-06-2023 Telephone Encounter - Magno Aguiar PA-C - 10/06/2023 2:34 PM ESTTelephone Encounter - Pamela Tate RN - 10/06/2023 2:13 PM Sita Norton LPN - 07/27/2023 8:39 AM EST Note Date & Type Note Facility 10-06-2023 Miscellaneous Notes New orders placed. Sabine calling from [facility] regarding pt's order. Sabine notes pt has been ordered DXA-AXIAL SKELETON WITH VFA. Sabine states typically a VFA scan is used in pt's with history of organ transplant and recommends pt have a regular DXA scan completed. Sabine states she will complete whatever testing the provider wishes. No call back needed to Sabine-she states she will monitor for pt's new order, if placed. Pamela Tate RN documented in this encounter [facility] 09-21-2023 Note HNO ID: [id number] Author: MAGNO AGUIAR PA-C Service: ? Author Type: Physician Circular Knitter Helper Type: Progress Notes Filed: 09/21/2023 10:37 Note Text: Irivn Fernandez is a 68 year old female here for a Medicare wellness visit. Medicare Health Risk Assessment General Health Fair Exercise: Minutes/Day no Exercise: Days/Week no Alcohol: Daily Use no Alcohol: Drinks/Day no Alcohol: 6 or more drinks never Feel off balance Yes-vertigo Concerns: Teeth/Dentures no Concerns: Sexual function no Troubled by feelings no Frequency: Eating healthy diet sometimes ADLs requiring help no Safety precautions in home/vehicle yes Smoke, vape, chews tobacco no Difficulty hearing yes Difficulty seeing Yes- is scheduled with eye dr. Current Providers Specialists: I have reviewed specialist-related care of the patient in the medical record. Medical/Family history review Reviewed and updated problem list, medical/surgical/family/social history, medications, and allergies. Opioid use review Opioid Medications (last 90 days) Some values may be hidden. Unless noted otherwise, only the newest values recorded on each date are displayed. Opioid Medications No data to display. Depression screening Depression Screening PHQ-2 Score 09/21/2023 0 Depression screening tool completed and reviewed. Based on score and interview, patient is not at risk for depression. Screening tool discussed with patient, and I recommended no further intervention at this time. Cognitive screening Mini Cog Score: 5 Cognitive screening reviewed and no further action needed (score 3-5) Functional Observation Was the patient's Timed Up AND Go test unsteady or ? 12 seconds? No Advance Care Planning Patient did not wish or was not able to name a surrogate decision maker or provide an advance care plan Measurements BP 112/80 Pulse 67 Temp 97.2 Resp 16 Ht 5' 1.22 (1.56m) Wt 190 lb (86.2kg) BMI 35.64 kg/(m2). Additional screenings: No results found. Assessment/Plan Medicare annual wellness visit, subsequent (Z00.00) - Counseled on healthy diet and regular exercise - Fall avoidance information provided - Personalized prevention plan provided Chief Complaint Patient presents with: Medicare Wellness Exam HPI Irvin Fernandez is a 68 year old female who presents here today for extensive exam. Patient with hx of HTN,hyperlipidemia, inflammatory arthritis, GERD, Fibro, chronic back pain, osteopenia, and those as below No specific concerns today. Past medical history, appointments, medications, allergies reviewed. 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: Thyroid peroxidase Ab's elevated but thyroid labs ok, recheck 01/2022 Hemorrhage of gastrointestinal tract, unspecified History of colonic polyps 09/19/2021 Internal hemorrhoids without mention of complication Lumbago 02/20/2008 Mixed hyperlipidemia Mixed stress and urge urinary incontinence 08/03/2012 Osteopenia, senile 08/31/2019 Pain in both lower extremities 09/19/2021 Suspect RLS PMH - PAST MEDICAL HISTORY OF mi[place] Prolapse of vaginal vault after hysterectomy 07/10/2013 Rosacea Sinus headache 08/28/2019 Spondylolisthesis at L4-L5 level 09/23/2021 Symptomatic menopausal or female climacteric states Previous Surgical History PAST SURGICAL HISTORY Procedure Laterality Date APPENDECTOMY HX BREAST BIOPSY CMBND ANTERPOST COLPORRAPHY W/CYSTO 09/20/2012 COLONOSCOPY 10/29/2021 repeat in 3 years, with MAC at [facility] COLONOSCOPY FLX DX W/COLLJ SPEC WHEN PFRMD 02/22/2006 COLONOSCOPY FLX DX W/COLLJ SPEC WHEN PFRMD 03/23/2016 Colonoscopy, repeat 5 years EGD W/O BRSH SPEC VARICIES INJ 10/29/2021 ESOPHAGOGASTRODUODENOSCOPY TRANSORAL DIAGNOSTIC 12/23/1998 EGD LAPAROSCOPIC APPENDECTOMY 07/12/2007 Early acute LIG/TRNSXJ FLP TUBE ABDL/VAG APPR UNI/BI Tubal ligation PAST SURGICAL HISTORY OF lipoma back, left back PAST SURGICAL HISTORY OF Right 06/02/2016 Dr. Matthew COATS, Right Knee Scope SLING OPER STRES INCONTINENCE 09/20/2012 [place] and cystoscopy TONSILLECTOMY HX TONSILLECTOMY PRIMARY/SECONDARY Tonsillectomy VAG HYST 250 GM/< W/RMVL TUBEAND/OVARY 09/20/2012 TVH/BSO, for prolapse w/ Santos's VAGINAL HYSTERECTOMY Family History FAMILY HISTORY Problem Relation Age of Onset Diabetes Mother Hypertension Mother Arthritis Mother Cancer Mother uterine cancer Allergies Mother other (cholesterol) Mother Heart Father at 45 Cancer Maternal Grandmother colon Thyroid Maternal Gr (more content not included)... [facility] 08-26-2023 Note HNO ID: [id number] Author: GINO CISSE MD Service: ? Author Type: Physician Type: Progress Notes Filed: 08/26/2023 09:17 Note Text: Chief Complaint Patient presents with: Follow Up: Cat bite/scratch HPI Irvin Fernandez is a 68 year old female who presents here today for Above Complaints.. Patient started on augmentin 2 days ago for cat bite/scratch to left hand. Taking abx as prescribed without side effects. Redness and swelling has improved significantly. Still has some redness over the left thumb MCP joint, but pain and ROM is much improved. Feels like this area is healing slowly. Did call vet and her cat was vaccinated for rabies. Patient states she had a tetanus booster 2 days ago at [facility] in [place]. Holding her methotrexate and hydroxychloroquine. Past medical history, appointments, medications, allergies reviewed. 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: Thyroid peroxidase Ab's elevated but thyroid labs ok, recheck 01/2022 Hemorrhage of gastrointestinal tract, unspecified History of colonic polyps 09/19/2021 Internal hemorrhoids without mention of complication Lumbago 02/20/2008 Mixed hyperlipidemia Mixed stress and urge urinary incontinence 08/03/2012 Osteopenia, senile 08/31/2019 Pain in both lower extremities 09/19/2021 Suspect RLS PMH - PAST MEDICAL HISTORY OF [place] Prolapse of vaginal vault after hysterectomy 07/10/2013 Rosacea Sinus headache 08/28/2019 Spondylolisthesis at L4-L5 level 09/23/2021 Symptomatic menopausal or female climacteric states Previous Surgical History PAST SURGICAL HISTORY Procedure Laterality Date APPENDECTOMY HX BREAST BIOPSY CMBND ANTERPOST COLPORRAPHY W/CYSTO 09/20/2012 COLONOSCOPY 10/29/2021 repeat in 3 years, with MAC at [facility] COLONOSCOPY FLX DX W/COLLJ SPEC WHEN PFRMD 02/22/2006 COLONOSCOPY FLX DX W/COLLJ SPEC WHEN PFRMD 03/23/2016 Colonoscopy, repeat 5 years EGD W/O [facility] SPEC VARICIES INJ 10/29/2021 ESOPHAGOGASTRODUODENOSCOPY TRANSORAL DIAGNOSTIC 12/23/1998 EGD LAPAROSCOPIC APPENDECTOMY 07/12/2007 Early acute LIG/TRNSXJ FLP TUBE ABDL/VAG APPR UNI/BI Tubal ligation PAST SURGICAL HISTORY OF lipoma back, left back PAST SURGICAL HISTORY OF Right 06/02/2016 Dr. Matthew COATS, Right Knee Scope SLING OPER STRES INCONTINENCE 09/20/2012 [place] and cystoscopy TONSILLECTOMY HX TONSILLECTOMY PRIMARY/SECONDARY Tonsillectomy VAG HYST 250 GM/< W/RMVL TUBEAND/OVARY 09/20/2012 TVH/BSO, for prolapse w/ Santos's VAGINAL HYSTERECTOMY Family History FAMILY HISTORY Problem Relation Age of Onset Diabetes Mother Hypertension Mother Arthritis Mother Cancer Mother uterine cancer Allergies Mother other (cholesterol) Mother Heart Father at 45 Cancer Maternal Grandmother colon Thyroid Maternal Grandmother Diabetes Brother Heart Brother at 56 or 58 Cancer Sister uterine Cancer Maternal Aunt breast Allergies Brother Allergies Other nephew Allergies Son Asthma Brother Patient Allergies ALLERGIES Allergen Reactions Prevacid [Lansopraz* Hives Adhesive Unknown Benadryl [Diphenhyd* Other: See Comments makes her feel weird Latex Unknown Current Medications Current Outpatient Medications on File Prior to Visit Medication Sig amoxicillin-clavulanate potassium (AUGMENTIN) 875-125 mg per tablet Take 1 tablet by mouth two times a day for 10 days. ramipril (ALTACE) 5 mg capsule Take 1 capsule by mouth once daily. docosahexaenoic acid/epa (FISH OIL ORAL) Take 1,000 mg by mouth once daily. hydrOXYchloroQUINE (PLAQUENIL) 200 mg tablet Take by mouth twice daily. clobetasol (TEMOVATE) 0.05 % ointment Apply to affected area twice daily. pantoprazole DR (PROTONIX) 40 mg tablet Take 1 tablet by mouth daily before breakfast. Take on empty stomach, 1/2 hr before meal. folic acid 1 mg tablet Take 2 mg by mouth once daily. methotrexate 2.5 mg tablet TAKE 5 TABLETS BY MOUTH ONCE A WEEK AFTER TAKING 4 TABLETS ONCE A WEEK FOR 2 WEEKS ibuprofen (MOTRIN) 800 mg tablet Take 1 tablet by mouth every 8 hours as needed. FOR PAIN. ZINC ORAL Take 1 capsule by mouth once daily. vitamin E mixed/tocotrienol (VITAMIN E COMPLEX ORAL) Take 1 capsule by mouth once daily. olopatadine (PATANOL) 0.1 % ophthalmic solution 1 Drop twice daily. pataday Cholecalciferol, Vitamin D3, (VITAMIN D) 25 mcg (1,000 unit) cap Take 2 capsules by mouth once daily. (Patient taking differently: Take 2,000 Units by mouth once daily. 50 mcg daily) Calcium-Cholecalciferol, D3, (CALCIUM 6 (more content not included)... [facility] 08-24-2023 Note HNO ID: [id number] Author: Sangeetha Chang RT(R) Service: Radiology Author Type: Technologist Type: Progress Notes Filed: 08/24/2023 10:14 AM Note Text: Radiology Service Progress Note PATIENT NAME: Irvin Fernandez DATE OF SERVICE: August 24, 2023 TIME: 10:05 AM PATIENT IDENTITY VERIFICATION COMPLETED USING TWO (2) IDENTIFIERS: Name and Date of confirmed by patient verbally. FALL SCREENING: Has the patient had 2 falls in the last year or 1 fall with injury or currently using an Ambulatory Assistive Device (Walker, Cane, Wheelchair, Crutches, etc.)? No PATIENT GENDER DATA: Female. status: : No status: NO. PATIENT RELEVANT IMPLANT DATA REVIEWED: Not Applicable RADIOLOGY DEPARTMENT: General X-ray: Exam(s) Completed: Upper Extremity X-Ray(s): Hand, left PERIPHERAL IV DATA: Not applicable SIGNED BY: RT Jeffrey(R) August 24, 2023 10:05 AM [facility] 08-24-2023 Note HNO ID: [id number] Author: Gino Cisse MD Service: ? Author Type: Physician Type: Progress Notes Filed: 08/24/2023 10:24 AM Note Text: Chief Complaint Patient presents with: Derm Problem: Patient reports cat scratch or bite on 08/22/23 with redness, swelling and warmth. HPI Irvin Fernandez is a 68 year old female who presents here today for Above Complaints.. 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 Treated by running under water for less than 5 minutes and the applied hydrogen peroxide and polysporin. Reapplying polysporin BID since. Developed redness and swelling yesterday which has not changed much since. Admits to limited ROM in fingers and thumbs due to swelling. Denies fever/chills, purulent drainage. Past medical history, appointments, medications, allergies reviewed. 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: Thyroid peroxidase Ab's elevated but thyroid labs ok, recheck 01/2022 Hemorrhage of gastrointestinal tract, unspecified History of colonic polyps 09/19/2021 Internal hemorrhoids without mention of complication Lumbago 02/20/2008 Mixed hyperlipidemia Mixed stress and urge urinary incontinence 08/03/2012 Osteopenia, senile 08/31/2019 Pain in both lower extremities 09/19/2021 Suspect RLS PMH - PAST MEDICAL HISTORY OF miagraines Prolapse of vaginal vault after hysterectomy 07/10/2013 Rosacea Sinus headache 08/28/2019 Spondylolisthesis at L4-L5 level 09/23/2021 Symptomatic menopausal or female climacteric states Previous Surgical History PAST SURGICAL HISTORY Procedure Laterality Date APPENDECTOMY HX BREAST BIOPSY CMBND ANTERPOST COLPORRAPHY W/CYSTO 09/20/2012 COLONOSCOPY 10/29/2021 repeat in 3 years, with MAC at [facility] COLONOSCOPY FLX DX W/COLLJ SPEC WHEN PFRMD 02/22/2006 COLONOSCOPY FLX DX W/COLLJ SPEC WHEN PFRMD 03/23/2016 Colonoscopy, repeat 5 years EGD W/O [facility] SPEC VARICIES INJ 10/29/2021 ESOPHAGOGASTRODUODENOSCOPY TRANSORAL DIAGNOSTIC 12/23/1998 EGD LAPAROSCOPIC APPENDECTOMY 07/12/2007 Early acute LIG/TRNSXJ FLP TUBE ABDL/VAG APPR UNI/BI Tubal ligation PAST SURGICAL HISTORY OF lipoma back, left back PAST SURGICAL HISTORY OF Right 06/02/2016 Dr. Matthew COATS, Right Knee Scope SLING OPER STRES INCONTINENCE 09/20/2012 [place] and cystoscopy TONSILLECTOMY HX TONSILLECTOMY PRIMARY/SECONDARY Tonsillectomy VAG HYST 250 GM/< W/RMVL TUBEAND/OVARY 09/20/2012 TVH/BSO, for prolapse w/ Santos's VAGINAL HYSTERECTOMY Family History FAMILY HISTORY Problem Relation Age of Onset Diabetes Mother Hypertension Mother Arthritis Mother Cancer Mother uterine cancer Allergies Mother other (cholesterol) Mother Heart Father at 45 Cancer Maternal Grandmother colon Thyroid Maternal Grandmother Diabetes Brother Heart Brother at 56 or 58 Cancer Sister uterine Cancer Maternal Aunt breast Allergies Brother Allergies Other nephew Allergies Son Asthma Brother Patient Allergies ALLERGIES Allergen Reactions Environmental [Othe* Unknown Cockroach, Dust mites, Molds, Trees, Weeds Prevacid [Lansopraz* Hives Adhesive Unknown Benadryl [Diphenhyd* Other: See Comments makes her feel weird Latex Unknown Current Medications Current Outpatient Medications on File Prior to Visit Medication Sig ramipril (ALTACE) 5 mg capsule Take 1 capsule by mouth once daily. docosahexaenoic acid/epa (FISH OIL ORAL) Take 1,000 mg by mouth once daily. hydrOXYchloroQUINE (PLAQUENIL) 200 mg tablet Take by mouth twice daily. clobetasol (TEMOVATE) 0.05 % ointment Apply to affected area twice daily. pantoprazole DR (PROTONIX) 40 mg tablet Take 1 tablet by mouth daily before breakfast. Take on empty stomach, 1/2 hr before meal. folic acid 1 mg tablet Take 2 mg by mouth once daily. methotrexate 2.5 mg tablet TAKE 5 TABLETS BY MOUTH ONCE A WEEK AFTER TAKING 4 TABLETS ONCE A WEEK FOR 2 WEEKS ibuprofen (MOTRIN) 800 mg tablet Take 1 tablet by mouth every 8 hours as needed. FOR PAIN. ZINC ORAL Take 1 capsule by mouth once daily. vitamin E mixed/tocotrienol (VITAMIN E COMPLEX ORAL) Take 1 capsule by mouth once daily. olopatadine (PATANOL) 0.1 % ophthalmic solution 1 Drop twice daily. pataday Cholecalciferol, Vitamin D3, (VITAMIN D) 25 mcg (1,000 unit) cap Take 2 capsules by mouth once daily. (Patient taking differently: Take 2,000 Units by mouth once daily. 50 mcg daily) Calcium-Cholecalciferol, D3, (CALCIUM 600 + D) 600-125 mg-unit (more content not included)... [facility] 07-27-2023 Note HNO ID: [id number] Author: Sita Abbott LPN Service: ? Author Type: ? Type: Progress Notes Filed: 07/27/2023 3:54 PM Note Text: Scan on 07/23/2023 12:38 PM by Provider, EDDIE BranchC: Hematology Scan on 07/23/2023 1:38 PM by Provider, EDDIE BranchC: Chemistry [facility] 07-27-2023 History of Present illness Narrative Scan on 07/23/2023 12:38 PM by Provider, EDDIE BranchC: Hematology Scan on 07/23/2023 1:38 PM by ProviderJose Carlos PA-C: Chemistry documented in this encounter [facility] 07-21-2023 Miscellaneous Notes The following approved medication requests have been transmitted electronically. Requested Prescriptions Signed Prescriptions Disp Refills ramipril (ALTACE) 5 mg capsule 90 capsule 1 Sig: Take 1 capsule by mouth once daily. Authorizing Provider: LEOLA FRY MD Patient last visit with PCP 09/21/22 Follow up appointment scheduled 09/21/23 Shelby Brown Ma Patient has been identified by name and date of : Yes Requested Prescriptions Pending Prescriptions Disp Refills ramipril (ALTACE) 5 mg capsule 90 capsule 1 Sig: Take 1 capsule by mouth once daily. RX INSTRUCTIONS: Patient aware RX escripted to mail away pharmacy. No need to notify patient. Rosamaria Moody Pss documented in this encounter [facility] 05-07-2023 Note HNO ID: [id number] Author: Sita Abbott LPN Service: ? Author Type: ? Type: Progress Notes Filed: 05/09/2023 3:48 PM Note Text: Scan on 05/07/2023 1:21 PM by ProviderJose Carlos PA-C: Chemistry Scan on 05/07/2023 12:39 PM by Jose Carlos Phelps PA-C: Hematology [facility] 05-07-2023 History of Present illness Narrative Scan on 05/07/2023 1:21 PM by ProviderJose Carlos PA-C: Chemistry Scan on 05/07/2023 12:39 PM by Jose Carlos Phelps PA-C: Hematology documented in this encounter [facility] 01-26-2023 Note HNO ID: [id number] Author: Addie Bess Pss Service: ? Author Type: ? Type: Progress Notes Filed: 01/27/2023 12:11 PM Note Text: POPULATION HEALTH NAVIGATION OUTREACH Action/FYI 01/26/23 Discuss/due [employer] Care Gaps: ~Colorectal Cancer screening ~MyChart Activation Outcome: ~Spoke with patient who declined scheduling at this time however stated she ' wouldn't mind being called back in the future'. Patient Identified by Name and : YES, via phone Outreach Outcome/Action Spoke to patient / parent / legal guardian: Patient declined Did you use a PCP flex slot to schedule this appointment? N/A Reason for Outreach Care Gap or Scheduling/Wellness visits Payer: Payor: [employer] MEDICARE / Plan: [employer] MEDICARE PPO / Product Type: PPO / Care Gap Reviewed:: Colorectal Cancer Screening Reminder: Reminder note to check Health Maintenance for items below Health Maintenance items due: DTAP,TDAP,TD(1 - Tdap) Never done COLORECTAL CANCER SCREENING due on 10/29/2022 Navigation Signature: Addie Bess Population Health Navigator January 26, 2023 12:28 PM [facility] 01-26-2023 Note Patient Outreach (HAMILTON NORMAN) IRVIN FERNANDEZ ([id number]) 1955 F Date Time Provider Department 01/26/23 ADDIE BESS (PSS) DEBBIENAV During your visit today, we recorded the following information about you: Addie Bess Pss 01/27/2023 12:11 PM Signed POPULATION HEALTH NAVIGATION OUTREACH Action/FYI 01/26/23 Discuss/due [employer] Care Gaps: ~Colorectal Cancer screening ~MyChart Activation Outcome: ~Spoke with patient who declined scheduling at this time however stated she ' wouldn't mind being called back in the future'. Patient Identified by Name and : YES, via phone Outreach Outcome/Action Spoke to patient / parent / legal guardian: Patient declined Did you use a PCP flex slot to schedule this appointment? N/A Reason for Outreach Care Gap or Scheduling/Wellness visits Payer: Payor: AET MEDICARE / Plan: [employer] MEDICARE PPO / Product Type: PPO / Care Gap Reviewed:: Colorectal Cancer Screening Reminder: Reminder note to check Health Maintenance for items below Health Maintenance items due: DTAP,TDAP,TD(1 - Tdap) Never done COLORECTAL CANCER SCREENING due on 10/29/2022 Navigation Signature: Addei Bess Population Health Navigator January 26, 2023 12:28 PM Allergies As of Date: 01/26/2023 Noted Allergy Reaction environmental [Other] 02/06/2010 16 - Unknown Comments: Cockroach, Dust mites, Molds, Trees, Weeds PREVACID (LANSOPRAZOLE) 01/01/2006 4 - Hives ADHESIVE 03/18/2016 16 - Unknown BENADRYL (DIPHENHYDRAMINE HCL) 01/01/2006 14 - Other: See Comments Comments: makes her feel weird LATEX 01/14/2010 16 - Unknown Date Reviewed: 09/21/2022 Reviewed by: Sangita Jay LPN - Fully Assessed Reason for Visit: Population Health Navigation Outreach [3910] Cmt: [employer] Care Gaps Prescriptions as of 01/27/2023 - ramipril (ALTACE) 5 mg capsule Take 1 capsule by mouth once daily. - docosahexaenoic acid/epa (FISH OIL ORAL) Take 1,000 mg by mouth once daily. - hydrOXYchloroQUINE (PLAQUENIL) 200 mg tablet Take by mouth twice daily. - clobetasol (TEMOVATE) 0.05 % ointment Apply to affected area twice daily. - pantoprazole DR (PROTONIX) 40 mg tablet Take 1 tablet by mouth daily before breakfast. Take on empty stomach, 1/2 hr before meal. - folic acid 1 mg tablet Take 2 mg by mouth once daily. - methotrexate 2.5 mg tablet TAKE 5 TABLETS BY MOUTH ONCE A WEEK AFTER TAKING 4 TABLETS ONCE A WEEK FOR 2 WEEKS - ibuprofen (MOTRIN) 800 mg tablet Take 1 tablet by mouth every 8 hours as needed. FOR PAIN. - ZINC ORAL Take 1 capsule by mouth once daily. - vitamin E mixed/tocotrienol (VITAMIN E COMPLEX ORAL) Take 1 capsule by mouth once daily. - olopatadine (PATANOL) 0.1 % ophthalmic solution 1 Drop twice daily. pataday - Cholecalciferol, Vitamin D3, (VITAMIN D) 25 mcg (1,000 unit) cap Take 2 capsules by mouth once daily. - Calcium-Cholecalciferol, D3, (CALCIUM 600 + D) 600-125 mg-unit tab Take one twice a day. - sodium chloride-aloe vera (AYR SALINE) topical nasal gel by INTRANASAL route as needed. - Artificial Tear, Hypromellose, (SYSTANE GEL) 0.3 % gel 1 Drop as needed (bedtime). - Ascorbic Acid 1,000 mg tablet Take 1,000 mg by mouth once daily. - budesonide (RHINOCORT ALLERGY) 32 mcg/actuation nasal spray Use 1 Beacon in each nostril once daily. - fexofenadine hcl(DANIEL 180 MG TAB) Take one(1) tablet daily. - vitamin b complex(B COMPLEX CAP) Take one(1) tablet daily. - aspirin(ECOTRIN LOW STRENGTH 81 MG TAB) one tablet 3 times a week - multivitamins w-minerals/lut(CENTRUM SILVER TAB) Take one(1) tablet daily. Meds Comments as of 09/27/2018: Using OTC eye drop/gel Problem List As Of Date 01/26/2023 Noted Resolved Calcaneal spur [M77.30] 07/14/2005 Hemorrhage of gastrointestinal tract, unspecifi* 08/28/2019 Internal hemorrhoids without mention of complic* Diverticulosis of colon [K57.30] Acute appendicitis without mention of peritonit*07/16/2007 09/19/2012 Lumbago [M54.50] 02/20/2008 Essential hypertension [I10] 12/14/2009 Allergic rhinitis [J30.9] 03/31/2010 Mixed stress and urge urinary incontinence [N39*08/03/2012 Atrophic vaginitis [N95.2] 08/03/2012 Cystocele, midline [N81.11] 08/03/2012 10/31/2012 Rectocele [N81.6] 08/03/2012 10/31/2012 Uterine prolapse without mention of vaginal wal*08/03/2012 10/31/2012 Prolapse of vaginal vault after hysterectomy [N*07/10/2013 Cystocele [RFT8847] 07/17/2013 Female stress incontinence [N39.3] 07/17/2013 Mixed hyperlipidemia [E78.2] Rosacea [L71.9] Eczema [L30.9] 08/28/2019 GERD without esophagitis [K21.9] 08/28/2019 Fibromyalgia [M79.7] 08/28/2019 Sinus headache [R51.9] 08/28/2019 Medicare annual wellness visit, initial [Z00.00]08/28/2019 Screening for osteoporosis [Z13.820] 08/28/2019 Encounter for screening mammogram for breast ca*08/28/2019 Family history of thyroid disease [Z83.49] 08/28 (more content not included)... [facility] 01-26-2023 History of Present illness Narrative POPULATION HEALTH NAVIGATION OUTREACH Action/I 01/26/23 Discuss/due [employer] Care Gaps: ~Colorectal Cancer screening ~MyChart Activation Outcome: ~Spoke with patient who declined scheduling at this time however stated she ' wouldn't mind being called back in the future'. Patient Identified by Name and : YES, via phone Outreach Outcome/Action Spoke to patient / parent / legal guardian: Patient declined Did you use a PCP flex slot to schedule this appointment? N/A Reason for Outreach Care Gap or Scheduling/Wellness visits Payer: Payor: AET MEDICARE / Plan: [employer] MEDICARE PPO / Product Type: PPO / Care Gap Reviewed:: Colorectal Cancer Screening Reminder: Reminder note to check Health Maintenance for items below Health Maintenance items due: DTAP,TDAP,TD(1 - Tdap) Never done COLORECTAL CANCER SCREENING due on 10/29/2022 Navigation Signature: Addie Bess Population Health Navigator January 26, 2023 12:28 PM documented in this encounter [facility] 11-26-2022 Note HNO ID: [id number] Author: Juanita Reilly MA Service: ? Author Type: Ground Operations Crew Member Type: Progress Notes Filed: 11/26/2022 4:28 PM Note Text: Scan on 11/20/2022 12:37 PM by External Provider: Hematology Juanita Reilly MA [facility] 11-26-2022 History of Present illness Narrative Scan on 11/20/2022 12:37 PM by External Provider: Hematology Juanita Reilly MA documented in this encounter [facility] 11-09-2022 Miscellaneous Notes Patient notified and verbalized understanding Kacey Lou Cma Please let patient know her mammogram is normal. She should continue yearly screenings. documented in this encounter [facility] 11-09-2022 Miscellaneous Notes November 10, 2022 PID: [id number] Irvin Fernandez [address] [place] [address] Dear Ms. Fernandez, We are pleased to inform you that the results of your recent breast imaging exam on 11/06/2022 are normal. Early detection of cancer is very important. We also understand recommendations regarding breast cancer screening are controversial. Please discuss with your primary care provider which strategy is best for you and whether a mammogram is right for you. Your imaging studies and report will be kept on file at [facility] as part of your permanent medical record and are available for your continuing care. Thank you for allowing us to help in meeting your health care needs. Sincerely, Dr. Hoyt Interpreting Radiologist [facility] (Normal over 40) documented in this encounter [facility] 11-06-2022 Note HNO ID: [id number] Author: RT Alek(Kevin) Service: ? Author Type: Technologist Type: Progress Notes Filed: 11/06/2022 1:44 PM Note Text: Radiology Service Progress Note PATIENT NAME: Irvin Fernandez DATE OF SERVICE: November 06, 2022 TIME: 1:44 PM PATIENT IDENTITY VERIFICATION COMPLETED USING TWO (2) IDENTIFIERS: Name and Date of confirmed by patient verbally. FALL SCREENING: Has the patient had 2 falls in the last year or 1 fall with injury or currently using an Ambulatory Assistive Device (Walker, Cane, Wheelchair, Crutches, etc.)? No PATIENT GENDER DATA: Female. status: : No status: NO. PATIENT RELEVANT IMPLANT DATA REVIEWED: Not Applicable RADIOLOGY DEPARTMENT: Mammography PERIPHERAL IV DATA: Not applicable SIGNED BY: RT Alek(R) November 06, 2022 1:44 PM [facility] 11-06-2022 History of Present illness Narrative Radiology Service Progress Note PATIENT NAME: Irvin Fernandez DATE OF SERVICE: November 06, 2022 TIME: 1:44 PM PATIENT IDENTITY VERIFICATION COMPLETED USING TWO (2) IDENTIFIERS: Name and Date of confirmed by patient verbally. FALL SCREENING: Has the patient had 2 falls in the last year or 1 fall with injury or currently using an Ambulatory Assistive Device (Walker, Cane, Wheelchair, Crutches, etc.)? No PATIENT GENDER DATA: Female. status: : No status: NO. PATIENT RELEVANT IMPLANT DATA REVIEWED: Not Applicable RADIOLOGY DEPARTMENT: Mammography PERIPHERAL IV DATA: Not applicable SIGNED BY: RT Alek(R) November 06, 2022 1:44 PM documented in this encounter [facility] 09-21-2022 Instructions Magno Aguiar PA-C - 09/21/2022 9:44 AM EST Aquaphor for dry skin. Can mix this with the steroid ointment as needed for increased treatment benefit. documented in this encounter [facility] 09-21-2022 History of Present illness Narrative Medicare Yearly Visit Medical B eligibilty date 03/23/19 Date of last exam 09/18/21 PAST MEDICAL HISTORY Diagnosis Date BAUTISTA positive 09/25/2021 Arthritis Atrophic vaginitis 08/03/2012 Calcaneal spur 07/14/2005 Cystocele 07/17/2013 Diverticulosis of colon (without mention of hemorrhage) Eczema 08/28/2019 Essential hypertension 12/14/2009 Female stress incontinence 07/17/2013 Fibromyalgia 08/28/2019 GERD without esophagitis 08/28/2019 Cassidy's thyroiditis 10/21/202109/2021: Thyroid peroxidase Ab's elevated but thyroid labs ok, recheck 01/2022 Hemorrhage of gastrointestinal tract, unspecified History of colonic polyps 09/19/2021 Internal hemorrhoids without mention of complication Lumbago 02/20/2008 Mixed hyperlipidemia Mixed stress and urge urinary incontinence 08/03/2012 Osteopenia, senile 08/31/2019 Pain in both lower extremities 09/19/2021 Suspect RLS PMH - PAST MEDICAL HISTORY OF [place] Prolapse of vaginal vault after hysterectomy 07/10/2013 Rosacea Sinus headache 08/28/2019 Spondylolisthesis at L4-L5 level 09/23/2021 Symptomatic menopausal or female climacteric states PAST SURGICAL HISTORY Procedure Laterality Date APPENDECTOMY HX BREAST BIOPSY CMBND ANTERPOST COLPORRAPHY W/CYSTO 09/20/2012 COLONOSCOPY 10/29/2021 repeat in 3 years, with MAC at [facility] COLONOSCOPY FLX DX W/COLLJ SPEC WHEN PFRMD 02/22/2006 COLONOSCOPY FLX DX W/COLLJ SPEC WHEN PFRMD 03/23/2016 Colonoscopy, repeat 5 years EGD W/O [facility] SPEC VARICIES INJ 10/29/2021 ESOPHAGOGASTRODUODENOSCOPY TRANSORAL DIAGNOSTIC 12/23/1998 EGD LAPAROSCOPIC APPENDECTOMY 07/12/2007 Early acute LIG/TRNSXJ FLP TUBE ABDL/VAG APPR UNI/BI Tubal ligation PAST SURGICAL HISTORY OF lipoma back, left back PAST SURGICAL HISTORY OF Right 06/02/2016 Dr. Matthew COATS, Right Knee Scope SLING OPER STRES INCONTINENCE 09/20/2012 [place] and cystoscopy TONSILLECTOMY HX TONSILLECTOMY PRIMARY/SECONDARY <AGE 12 Tonsillectomy VAG HYST 250 GM/< W/RMVL TUBE&/OVARY 09/20/2012 TV[facility]/BSO, for prolapse w/ Santos's VAGINAL HYSTERECTOMY ALLERGIES: Environmental [Other], Prevacid [Lansoprazole], Adhesive, Benadryl [Diphenhydramine Hcl], and Latex Medications reviewed: Yes FAMILY HISTORY Problem Relation Age of Onset Diabetes Mother Hypertension Mother Arthritis Mother Cancer Mother uterine cancer Allergies Mother other (cholesterol) Mother Heart Father at 45 Cancer Maternal Grandmother colon Thyroid Maternal Grandmother Diabetes Brother Heart Brother at 56 or 58 Cancer Sister uterine Cancer Maternal Aunt breast Allergies Brother Allergies Other nephew Allergies Son Asthma Brother SOCIAL HISTORY: Social History Tobacco Use Smoking status: Never Smokeless tobacco: Never Vaping Use Vaping Use: Never used Substance Use Topics Alcohol use: No Drug use: No Irvin likes to exercise by trying to stay active but not exercising routinely like she used to. She watches her diet for sodium, low fat and low cholesterol some of the time. List of current specialists seen: Rheumatology. Ophthalmology End of Live Planning discussed including patients advanced directive wishes: Yes I am willing to follow Irvin's advanced directives. Depression Screening 08/19/2016 02/17/2017 09/27/2018 09/21/2022 PHQ-2 Score 0 0 0 0 Depression screening tool completed and reviewed. Based on score and interview, patient is not at risk for depression. Screening tool discussed with patient, and I recommended no further intervention at this time. Functional Ability/Safety Screen 1. Was the patient's timed Up and Go test unsteady or longer than 30 seconds? No 2. Does the patient need help with the phone, transportation, shopping,preparing meals, housework, laundry, medications or managing money? No 3. Does your home have rugs in the hallway, lack of grab bars in the bathroom, lack of handrails on the stairs or have poor lighting? No Hearing Evaluation: normal PHYSICAL EXAM BP 132/80 (BP Site: Left Arm, BP Position: Sitting, BP Cuff Size: Large Adult) Pulse 68 Resp 16 Ht 157 cm (5' 1.81 ) Wt 87.7 kg (193 lb 6.4 oz) BMI 35.59 kg/m Alert and oriented X 3: YES Body mass index is 35.59 kg/m . Visual acuity: sees Ophthalmology ASSESSMENT/PLAN: 67 year old female The following prevention plan was discussed during the office visit and provided to the patient: See below. Magno Aguiar PA-C Chief Complaint Patient presents with: Yearly Exam HPI Irvin Fernandez is a 67 year old female who presents here today for extensive exam. Patient with hx of HTN, hyperlipidemia, GERD, urge incontinence, thyroiditis, allergies, osteopenia, inflammatory arthritis, fibro and those as below. Patient denies concerns today. Patient would like to wait another year before repeat c-scope. States she had a bad experience with last one. Past medical history, appointments, medications, allergies reviewed. 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: Thyroid peroxidase Ab's elevated but thyroid labs ok, recheck 01/2022 Hemorrhage of gastrointestinal tract, unspecified History of colonic polyps 09/19/2021 Internal hemorrhoids without mention of complication Lumbago 02/20/2008 Mixed hyperlipidemia Mixed stress and urge urinary incontinence 08/03/2012 Osteopenia, senile 08/31/2019 Pain in both lower extremities 09/19/2021 Suspect RLS PMH - PAST MEDICAL HISTORY OF [place] Prolapse of vaginal vault after hysterectomy 07/10/2013 Rosacea Sinus headache 08/28/2019 Spondylolisthesis at L4-L5 level 09/23/2021 Symptomatic menopausal or female climacteric states Previous Surgical History PAST SURGICAL HISTORY Procedure Laterality Date APPENDECTOMY HX BREAST BIOPSY CMBND ANTERPOST COLPORRAPHY W/CYSTO 09/20/2012 COLONOSCOPY 10/29/2021 repeat in 3 years, with MAC at [facility] COLONOSCOPY FLX DX W/COLLJ SPEC WHEN PFRMD 02/22/2006 COLONOSCOPY FLX DX W/COLLJ SPEC WHEN PFRMD 03/23/2016 Colonoscopy, repeat 5 years EGD W/O BRSH SPEC VARICIES INJ 10/29/2021 ESOPHAGOGASTRODUODENOSCOPY TRANSORAL DIAGNOSTIC 12/23/1998 EGD LAPAROSCOPIC APPENDECTOMY 07/12/2007 Early acute LIG/TRNSXJ FLP TUBE ABDL/VAG APPR UNI/BI Tubal ligation PAST SURGICAL HISTORY OF lipoma back, left back PAST SURGICAL HISTORY OF Right 06/02/2016 Dr. Matthew COATS, Right Knee Scope SLING OPER STRES INCONTINENCE 09/20/2012 [place] and cystoscopy TONSILLECTOMY HX TONSILLECTOMY PRIMARY/SECONDARY <AGE 12 Tonsillectomy VAG HYST 250 GM/< W/RMVL TUBE&/OVARY 09/20/2012 TVH/BSO, for prolapse w/ Santos's VAGINAL HYSTERECTOMY Family History FAMILY HISTORY Problem Relation Age of Onset Diabetes Mother Hypertension Mother Arthritis Mother Cancer Mother uterine cancer Allergies Mother other (cholesterol) Mother Heart Father at 45 Cancer Maternal Grandmother colon Thyroid Maternal Grandmother Diabetes Brother Heart Brother at 56 or 58 Cancer Sister uterine Cancer Maternal Aunt breast Allergies Brother Allergies Other nephew Allergies Son Asthma Brother Patient Allergies ALLERGIES Allergen Reactions Environmental [Othe* Unknown Cockroach, Dust mites, Molds, Trees, Weeds Prevacid [Lansopraz* Hives Adhesive Unknown Benadryl [Diphenhyd* Other: See Comments makes her feel weird Latex Unknown Current Medications Current Outpatient Medications on File Prior to Visit Medication Sig docosahexaenoic acid/epa (FISH OIL ORAL) Take 1,000 mg by mouth once daily. clobetasol (TEMOVATE) 0.05 % ointment Apply to affected area twice daily. hydrOXYchloroQUINE (PLAQUENIL) 200 mg tablet Take by mouth twice daily. ramipril (ALTACE) 5 mg capsule Take 1 capsule by mouth once daily. folic acid 1 mg tablet Take 2 mg by mouth once daily. methotrexate 2.5 mg tablet TAKE 5 TABLETS BY MOUTH ONCE A WEEK AFTER TAKING 4 TABLETS ONCE A WEEK FOR [address] (PROTONIX) 40 mg tablet Take 1 tablet by mouth daily before breakfast. Take on empty stomach, 1/2 hr before meal. ibuprofen (MOTRIN) 800 mg tablet Take 1 tablet by mouth every 8 hours as needed. FOR PAIN. ZINC ORAL Take 1 capsule by mouth once daily. vitamin E mixed/tocotrienol (VITAMIN E COMPLEX ORAL) Take 1 capsule by mouth once daily. olopatadine (PATANOL) 0.1 % ophthalmic solution 1 Drop twice daily. pataday Cholecalciferol, Vitamin D3, (VITAMIN D) 25 mcg (1,000 unit) cap Take 2 capsules by mouth once daily. (Patient taking differently: Take 2,000 Units by mouth once daily. 50 mcg daily) Calcium-Cholecalciferol, D3, (CALCIUM 600 + D) 600-125 mg-unit tab Take one twice a day. sodium chloride-aloe vera (AYR SALINE) topical nasal gel by INTRANASAL route as needed. Artificial Tear, Hypromellose, (SYSTANE GEL) 0.3 % gel 1 Drop as needed (bedtime). Ascorbic Acid 1,000 mg tablet Take 1,000 mg by mouth once daily. budesonide (RHINOCORT ALLERGY) 32 mcg/actuation nasal spray Use 1 Beacon in each nostril once daily. (Patient taking differently: Use 1 Beacon in each nostril as needed.) fexofenadine hcl(DANIEL 180 MG TAB) Take one(1) tablet daily. vitamin b complex(B COMPLEX CAP) Take one(1) tablet daily. aspirin(ECOTRIN LOW STRENGTH 81 MG TAB) one tablet 3 times a week multivitamins w-minerals/lut(CENTRUM SILVER TAB) Take one(1) tablet daily. No current facility-administered medications on file prior to visit. Social History Social History Tobacco Use Smoking status: Never Smokeless tobacco: Never Vaping Use Vaping Use: Never used Substance Use Topics Alcohol use: No Drug use: No Review of Symptoms REVIEW OF SYSTEMS GENERAL: No weight loss, malaise or fevers HEENT: No changes in hearing or vision, no nose bleeds or other nasal problems NECK: Negative for lumps, goiter, pain and significant neck swelling RESPIRATORY: Negative for cough, hemoptysis, wheezing, COPD, dyspnea or shortness of breath CARDIOVASCULAR: Negative for chest pain, leg swelling, CHF or palpitations GI: Negative for abdominal discomfort, blood in stools or black stools, change in bowel habit, heart burn, nausea, vomiting : No history of dysuria, frequency or incontinence FR[employer]: Negative for abnormal vaginal bleeding, abnormal vaginal discharge MUSCULOSKELETAL: chronic joint/muscle pain SKIN: dry skin and toenail fungus PSYCH: Negative for sleep disturbance, mood disorder and recent psychosocial stressors HEMATOLOGY/LYMPHOLOGY: Negative for prolonged bleeding, bruising easily or swollen nodes ENDOCRINE: Negative for cold or heat intolerance, polyuria, polydipsia and goiter NEURO: No history of headaches, syncope, paralysis, seizures or tremors EXAM: BP 132/80 (BP Site: Left Arm, BP Position: Sitting, BP Cuff Size: Large Adult) Pulse 68 Resp 16 Ht 157 cm (5' 1.81 ) Wt 87.7 kg (193 lb 6.4 oz) BMI 35.59 kg/m General Appearance: Well appearing, alert, in no acute distress, well-hydrated, well nourished.. Skin: Skin color, texture, turgor normal, no suspicious rashes or lesions on exposed skin Head: Normocephalic, no masses, lesions, tenderness or abnormalities. Eyes: Anicteric sclera. Pupils are equally round and reactive to light. Extraocular movements are intact. . Ears: External ears normal, canals clear, TMs pearly lundberg. Neck: Supple, no adenopathy; thyroid symmetric, normal size, no bruits. Lungs: Lungs clear to auscultation. No wheezing, rhonchi, rales.. Heart: RRR without murmur, gallop, or rubs. No ectopy. Abdomen: Normal abdominal exam, Abdomen soft, non-tender. Bowel sounds normal. No masses, organomegaly. Extremities: No deformities, edema, skin discoloration, clubbing or cyanosis. Good capillary refill. . Peripheral Pulses: Normal. Neurologic: Gait normal. Reflexes normal and symmetric. Sensation grossly intact.. Right big toenail with toenail deformity. Thick, yellowing deformed shape. . Health Maintenance List DTAP,TDAP,TD(1 - Tdap) Never done ADVANCE DIRECTIVE DISCUSSION Never done DEPRESSION ASSESSMENT Never done ANNUAL PCP TEAM CHRONIC DISEASE VISIT due on 09/19/2022 BP CONTROLLED (<130/80) due on 09/19/2022 MAMMOGRAM due on 10/07/2022 COLORECTAL CANCER SCREENING due on 10/29/2022 DIABETES SCREEN due on 09/10/2025 LIPID SCREEN due on 09/10/2027 BONE DENSITY Completed INFLUENZA Completed HEPATITIS C SCREENING Completed SHINGRIX VACCINE Completed COVID-19 VACCINE Completed PNEUMOCOCCAL: 65+ Completed Data reviewed Component Latest Ref Rng & Units 09/10/2022 09/21/2022 WBC 3.70 - 11.00 k/uL 4.19 RBC 3.90 - 5.20 m/uL 3.91 Hemoglobin 11.5 - 15.5 g/dL 13.6 Hematocrit 36.0 - 46.0 % 40.9 MCV 80.0 - 100.0 fL 104.6 (H) MCH 26.0 - 34.0 pg 34.8 (H) MCHC 30.5 - 36.0 g/dL 33.3 RDW-CV 11.5 - 15.0 % 13.2 Platelet Count 150 - 400 k/uL 189 MPV 9.0 - 12.7 fL 10.6 Neut% % 61.1 Abs Neut (ANC) 1.45 - 7.50 k/uL 2.56 Lymph% % 26.5 Abs Lymph 1.00 - 4.00 k/uL 1.11 [place]% % 7.6 Abs [place] <0.87 k/uL 0.32 Eosin% % 3.3 Abs Eosin <0.46 k/uL 0.14 Baso% % 1.0 Abs Baso <0.11 k/uL 0.04 Immature Gran % % 0.5 IMMATURE GRANS (ABS) <0.10 k/uL <0.03 NRBC /100 WBC 0.0 Absolute nRBC <0.01 k/uL <0.01 DTYPE Auto Protein, Total 6.3 - 8.0 g/dL 6.9 Albumin 3.9 - 4.9 g/dL 4.5 Calcium 8.5 - 10.2 mg/dL 9.6 Bilirubin, Total 0.2 - 1.3 mg/dL 0.5 Alkaline Phosphatase 34 - 123 U/L 82 AST 13 - 35 U/L 24 ALT 7 - 38 U/L 15 Glucose 74 - 99 mg/dL 103 (H) BUN 7 - 21 mg/dL 15 Creatinine 0.58 - 0.96 mg/dL 0.81 Sodium 136 - 144 mmol/L 143 Potassium 3.7 - 5.1 mmol/L 3.9 Chloride 97 - 105 mmol/L 104 CO2 22 - 30 mmol/L 30 Anion Gap 9 - 18 mmol/L 9 eGFR >=60 mL/min/1.73m 79 Color Yellow Colorless Clarity Clear Clear Glucose, Urine Trace, Negative Negative Bilirubin, Urine Negative Negative Ketones, Urine Trace, Negative Negative Specific [place], Ur 1.005 - 1.030 1.008 Hemoglobin/Blood,Ur Negative, Trace Negative pH, Urine 5.0 - 8.0 6.5 Protein, Urine Trace, Negative Negative Urobilinogen Negative Negative Nitrites Negative Negative Leukest Negative, 25 Samir/mL 25 Samir/mL WBC, Urine 0-5 /HPF 0-5 /HPF RBC, Urine 0-3 /HPF 0-3 /HPF Epithelial Cells /HPF Few Cholesterol, Total <200 mg/dL 165 Triglyceride <150 mg/dL 176 (H) HDL Cholesterol >39 mg/dL 49 Non HDL Cholesterol <130 mg/dL 116 Fasting Time hrs 12 VLDL Cholesterol <30 mg/dL 35 (H) TC:HDL Ratio <5.10 3.37 LDL Cholesterol <100 mg/dL 81 LDL:HDL Ratio <2.54 1.65 TSH 0.270 - 4.200 mIU/L 3.060 Magnesium 1.7 - 2.3 mg/dL 2.3 Free T4 0.9 - 1.7 ng/dL 1.2 Hemoglobin A1C (POCT) 4.2 - 5.6 % 5.5 ASSESSMENT/PLAN: 1. Medicare annual wellness visit, initial - ICD9: V70.0, ICD10: Z00.00 (primary diagnosis) - Counseled on healthy diet and regular exercise - Calcium intake with supplements or by diet of 1000 mg/day for under 50, 8231-7198 mg/day for 50+ - Colorectal cancer screening recommended - screening declined - Mammogram ordered - exam recommended once yearly - Follow up for annual exam in one year 2. Advance directive discussed with patient - ICD9: V65.49, ICD10: Z71.89 Patient and are considering stetting up living will. Will bring copies if done. 3. Essential hypertension - ICD9: 401.9, ICD10: I10 - fair control - Continue current medication(s) - Recommended regular aerobic exercise. - Recommend home blood pressure monitoring, to bring results in on next visit - Goal of BP <130/80 4. Mixed hyperlipidemia - ICD9: 272.2, ICD10: E78.2 - good control - Encouraged following a low carbohydrate, healthy oil intake diet. - Continue current therapy. 5. GERD without esophagitis - ICD9: 530.81, ICD10: K21.9 stable - PANTOPRAZOLE 40 MG TABLET,DELAYED RELEASE 6. Inflammatory arthritis - ICD9: 714.9, ICD10: M19.90 Cont with rheum 7. 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 Mixed stress and urge urinary incontinence - ICD9: 788.33, ICD10: N39.46 stable 10. Elevated glucose - ICD9: 790.29, ICD10: R73.09 A1c wnl. Watch diet - HEMOGLOBIN A1C (POC) 11. Encounter for screening mammogram for breast cancer - ICD9: V76.12, ICD10: Z12.31 - LEIGH SCREENING 12. Screening for colon cancer - ICD9: V76.51, ICD10: Z12.11 Patient declines at this time 13. Onychomycosis - ICD9: 110.1, ICD10: B35.1 Recommend consult to podiatry for possible removal. Patient will consider. Follow up yearly. Return sooner prn. Magno Aguiar PA-C documented in this encounter [facility] 09-09-2022 Miscellaneous Notes Patient notified and voiced understanding. Juanita Reilly MA Placed. Magno Aguiar PA-C Pt called in and reports she has an appointment on 09/21/22 and would like labs ordered. Please call once they are placed. documented in this encounter [facility] 08-05-2022 Miscellaneous Notes The following approved medication requests have been transmitted electronically. Requested Prescriptions Signed Prescriptions Disp Refills ramipril (ALTACE) 5 mg capsule 90 capsule 1 Sig: Take 1 capsule by mouth once daily. Authorizing Provider: LEOLA FRY MD Patient has been identified by name and date of : Yes Patient phones for refill(s): Requested Prescriptions Pending Prescriptions Disp Refills ramipril (ALTACE) 5 mg capsule 90 capsule 3 Sig: Take 1 capsule by mouth once daily. Date of last office visit in primary care: 09/19/21 Last 2 Encounter Wt Readings: Date: Wt: 06/18/2022 87.5 kg (193 lb) 11/12/2021 84.4 kg (186 lb) Previous labs/tests for medication: Cholesterol: HDL Cholesterol (mg/dL) Date Value 09/09/2020 36 HDL Cholesterol, Nonfasting (mg/dL) Date Value 09/02/2021 41 LDL Cholesterol (mg/dL) Date Value 09/09/2020 73 LDL Cholesterol, Nonfasting (mg/dL) Date Value 09/02/2021 98 ALT (U/L) Date Value 10/06/2021 12 Non HDL Cholesterol, Nonfasting (mg/dL) Date Value 09/02/2021 127 Blood Pressure: BUN (mg/dL) Date Value 10/06/2021 16 Sodium (mmol/L) Date Value 10/06/2021 139 Last 1 Encounter BP Readings: Date: BP: 06/18/2022 162/88 Blood Counts: WBC (k/uL) Date Value 10/06/2021 4.96 RBC (m/uL) Date Value 10/06/2021 4.56 Hematocrit (%) Date Value 10/06/2021 43.6 Hemoglobin (g/dL) Date Value 10/06/2021 14.8 Platelet Count (k/uL) Date Value 10/06/2021 201 Liver Function: ALT (U/L) Date Value 10/06/2021 12 AST (U/L) Date Value 10/06/2021 23 Please advise. Thank you. Pamela Tate RN documented in this encounter [facility] 06-18-2022 Instructions Chapis Lepe APRN.VENDOR MANAGEMENT ASSOCIATE - 06/18/2022 10:21 AM EDT Avoiding Tick Bites How can I avoid tick bites? If you are planning an outdoor activity, especially those in a heavily wooded area, it is important to follow a few simple precautions to protect yourself from tick bites. Wear long sleeved, light-colored clothing, with tightly woven fabric. This gives ticks less area to target and allows you to see ticks on your clothing. When traveling through the [place] or grassy [place], stay near the center of the trails. At home, make sure that you keep your lawn mowed and bushes and trees trimmed as short as possible. If you choose to apply tick repellents, such as those containing DEET, try to avoid spraying them directly to your bare skin. (high concentrations of DEET may have harmful effects on the nervous system.) Apply the spray to your clothing, socks, shoes, tents and backpacks. When returning from the outdoors, check for ticks. Be especially observant of hair, body folds, ears, underarms and the back. Check your clothes and gear for ticks and wash these items immediately. What if I have been bitten by a tick? If you discover a tick, remove it immediately. The longer the tick feeds, the greater chance that it can transmit its bacteria to you. The easiest removal method is to use a pair of tweezers, grasp the tick as close to your skin as possible, and gently pull the tick off. Then, thoroughly wash your hands and the bite area with rubbing alcohol to prevent transmission to other areas of your body. When should I call the doctor? It is best to wait and see whether you develop any signs or symptoms. If a large red liat forms around the tick bite or if you develop fever, flu-like symptoms, rash, or more severe illness, contact your doctor right away. Your doctor can determine whether these symptoms might be caused by a tick-borne disease, and whether antibiotics will be needed. Is there a vaccine for preventing tick-borne disease in humans? Currently there are vaccines being tested, but there are no guarantees that they will be effective. The best option is to take precautions so that tick bites do not occur in the first place. Early Signs and Symptoms (3 to 30 days after tick bite) Fever, chills, headache, fatigue, muscle and joint aches, and swollen lymph nodes Erythema migrans (EM) rash: Occurs in approximately 70 to 80 percent of infected persons Begins at the site of a tick bite after a delay of 3 to 30 days (average is about 7 days) Expands gradually over a period of days reaching up to 12 inches or more (30 cm) across May feel warm to the touch but is rarely itchy or painful Sometimes clears as it enlarges, resulting in a target or bull's-eye appearance May appear on any area of the body Later Signs and Symptoms (days to months after tick bite) Severe headaches and neck stiffness Additional EM rashes on other areas of the body Arthritis with severe joint pain and swelling, particularly the knees and other large joints. Facial or Blum's palsy (loss of muscle tone or droop on one or both sides of the face) Intermittent pain in tendons, muscles, joints, and bones Heart palpitations or an irregular heart beat (Lyme carditis) Episodes of dizziness or shortness of breath Inflammation of the brain and spinal cord Nerve pain Shooting pains, numbness, or tingling in the hands or feet Problems with short-term memory documented in this encounter [facility] 06-18-2022 History of Present illness Narrative Images from the original note were not included. Subjective Trauma Pertinent negatives include no chills, fever, myalgias or rash. NAV Fernandez is a 67 year old female who presents today for CC of tick on back of right upper leg. She noticed this today. She was out in the [place] 3 days ago. She denies any fever chills body aches. BP 162/88 Pulse 80 Temp 36.5 C (97.7 F) Resp 18 Wt 87.5 kg (193 lb) SpO2 98% BMI 36.47 kg/m Social History Tobacco Use Smoking status: Never Smokeless tobacco: Never Vaping Use Vaping Use: Never used Substance Use Topics Alcohol use: No Drug use: No PAST MEDICAL HISTORY Diagnosis Date BAUTISTA positive 09/25/2021 Arthritis Atrophic vaginitis 08/03/2012 Calcaneal spur 07/14/2005 Cystocele 07/17/2013 Diverticulosis of colon (without mention of hemorrhage) Eczema 08/28/2019 Essential hypertension 12/14/2009 Female stress incontinence 07/17/2013 Fibromyalgia 08/28/2019 GERD without esophagitis 08/28/2019 Cassidy's thyroiditis 10/21/202109/2021: Thyroid peroxidase Ab's elevated but thyroid labs ok, recheck 01/2022 Hemorrhage of gastrointestinal tract, unspecified History of colonic polyps 09/19/2021 Internal hemorrhoids without mention of complication Lumbago 02/20/2008 Mixed hyperlipidemia Mixed stress and urge urinary incontinence 08/03/2012 Osteopenia, senile 08/31/2019 Pain in both lower extremities 09/19/2021 Suspect RLS H - PAST MEDICAL HISTORY OF [place] Prolapse of vaginal vault after hysterectomy 07/10/2013 Rosacea Sinus headache 08/28/2019 Spondylolisthesis at L4-L5 level 09/23/2021 Symptomatic menopausal or female climacteric states I have confirmed and edited as necessary, the [facility] Review of Systems Constitutional: Negative for chills and fever. Musculoskeletal: Negative for joint pain and myalgias. Skin: Negative for itching and rash. Tick on back of leg. All other systems reviewed and are negative. Objective Physical Exam Vitals and nursing note reviewed. Pulmonary: Effort: Pulmonary effort is normal. Skin: General: Skin is warm and dry. Comments: Tick visible, easily removed intact, patient tolerated well, small amount of redness around tick. No rash Neurological: Mental Status: She is alert and oriented to person, place, and time. Psychiatric: Mood and Affect: Affect normal. ASSESSMENT/PLAN: 1. Tick bite of right thigh, initial encounter - ICD9: 916.4, E906.4, ICD10: S70.361A, W57.XXXA Prophylaxis treatment prescribed Precaution given Follow up as needed - DOXYCYCLINE MONOHYDRATE 100 MG CAPSULE Diagnosis and treatment plan were discussed and questions were answered to the patient's satisfaction. Pt acknowledged understanding of concepts and follow up plan. Specific signs and symptoms that would indicate the need for higher level of care were discussed in detail warranting prompt ER evaluation. Chapis Lepe APRN.VENDOR MANAGEMENT ASSOCIATE documented in this encounter [facility] 12-22-2021 History of Present illness Narrative Please see external labs. Juanita Reilly MA Scan on 12/22/2021 2:23 PM by External Provider: Hematology documented in this encounter [facility] 11-12-2021 Instructions Sayra Del Toro PA-C - 11/12/2021 10:46 AM EDT -Recommend repeat colonoscopy in 1-2 years with Monitored Anesthetic Care -Recommend daily fiber supplement and plenty of fluids -Call immediately if any changes in bowel habits or new concerns The following instructions are important for you related to your office visit today with the [facility]. INSTRUCTIONS FOR PEPTIC ULCER DISEASE/GASTRITIS I discussed with you the findings of your upper endoscopy. Your upper endoscopy demonstrated signs of peptic ulcer disease or irritation. This can be seen as a range of issues from actual ulcers in the stomach or duodenum (first part of the small bowel) or irritation ranging from redness to more significant irritation with erosions of the stomach or duodenum. These conditions are usually caused from a combination of too much acid production or too little protective mucus production in the stomach. Factors that increase acid production include smoking and stress. If you smoke, stopping smoking will often cure these issues without needing other medications. Factors that decrease the stomach's production of protective mucus include alcohol consumption, smoking, aspirin and other anti-inflammatory use. Over the counter medications including antiacids and acid reducing medications including H2 blockers (Zantac and the like) and proton pump inhibitors (prilosec, prevacid and the like) neutralize or prevent acid production. Prescription strength proton pump inhibitors (PPIs) may be necessary if your symptoms persist. Carafate may be added to PPI treatment in refractory cases. Avoiding smoking, alcohol and antiinflammatory medications are important in the successful treatment of peptic diseases. New or worsening symptoms such are epigastric pain, burning, difficulty swallowing or food sticking should be relayed to your physician. Feeling full early after eating, or black, tarry, foul smelling stools are also worrisome. If you have any difficulties or concerns, you should contact our office immediately. If you note any additional difficulties, questions, or concerns, you should contact our office immediately @ [phone] and ask to be transferred to the General Surgery department. documented in this encounter [facility] 11-12-2021 History of Present illness Narrative FOLLOW UP VISIT - ENDOSCOPY NAME: Irvin Fernandez [facility] NO.: [id number] DATE OF SERVICE: 11/12/2021 : 1955 REFERRING PHYSICIAN: Leola Fry MD Irvin is a patient I am following for screening colonoscopy, history of colon polyps, and dysphagia. Dr. Godinez performed upper and lower endoscopy on 10/29/21. The patient was found to have sigmoid diverticulosis and internal hemorrhoids, with otherwise normal colonoscopy. EGD showed erythematous mucosa in antrum. Esophagus appeared normal. Pathology demonstrated: FINAL DIAGNOSIS A. Stomach, antrum, biopsy: - Gastric antral mucosa with chronic inactive gastritis. - An immunohistochemical stain for Helicobacter pylori organisms has been ordered and will be reported in an addendum. B. Esophagus, mid, biopsy: - Squamous mucosa with no diagnostic abnormality. Gross Description A. ANTRUM (STOMACH) BIOPSY. Received in formalin are two pieces of rajput, soft tissue aggregating to 0.6 x 0.3 x 0.1 cm. Totally submitted in one cassette. B. ESOPHAGUS MID BIOPSY. Received in formalin are multiple pieces of rajput-white, soft tissue aggregating to 0.9 x 0.2 x <0.1 cm. Totally submitted in one cassette issue. Gross examination performed at [facility], [address] [place], [place] [address] [place] [address] FF 10/29/2021 10:08 PM Performing Lab Diagnostic interpretation performed [facility] [address] [facility] [address] CLIA# [id number] Front Office Secretary: Remy Yuan M.D. Addendum Given the background of chronic gastritis a Helicobacter pylori immunostain was performed on block A1 and is negative for Helicobacter pylori organisms. The patient notes she had significant lower abdominal cramping and discomfort for several days following the procedure, and notes was also constipated for several days as well. VITALS: Blood pressure 122/78, pulse 72, temperature 36.7 C (98 F), height 154.9 cm (5' 1 ), weight 84.4 kg (186 lb), SpO2 96 %. General: patient is alert, cooperative, pleasant and in no acute distress On examination, the abdomen is benign. Assessment IMPRESSION: s/p EGD and incomplete colonoscopy-limited due to very tortuous colon. Recommend MAC for next colonoscopy PLAN: The operative findings and pathology report were reviewed with the patient, and the patient has had the opportunity to ask questions and have questions answered. -Reviewed options of completion barium enema vs scheduling a repeat colonoscopy with MAC. Patient declines to proceed with either option at this time, wants to wait. Reviewed risk of colon polyp or malignancy in the remaining part of colon which was not able to be visualized. Patient verbalized understanding -Discussed with Dr. Godinez. We have recommended a repeat colonoscopy in 1-2 years to be done at [facility] under Monitored Anesthetic Care. Patient agreeable to this Reviewed dietary and lifestyle modifications for reflux symptoms. If patient continues to note swallowing issues, would recommend GI evaluation for possible swallowing study If the patient notes any problems or changes in bowel function, the patient should contact me immediately. Recommend daily fiber supplement and plenty of fluids, as well as a probiotic. HM updated and recall letter generated. 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 Sayra Del Toro PA-C documented in this encounter [facility] documented as of this encounter (statuses as of 10/06/2023) [facility]12-[facility]-2012 History of Past illness Narrative* Problem Noted Date Resolved Date Cystocele, midline 08/03/2012 10/31/2012 Rectocele 08/03/2012 10/31/2012 Uterine prolapse without mention of vaginal wall prolapse 08/03/2012 10/31/2012 Acute appendicitis without mention of peritoniti s 07/16/2007 09/19/2012 Hemorrhage of gastrointestinal tract, unspecifie d 08/28/2019 documented as of this encounter (statuses as of 11/12/2021) [facility] History of Past illness Narrative* Problem Noted Date Resolved Date Cystocele, midline 08/03/2012 10/31/2012 Rectocele 08/03/2012 10/31/2012 Uterine prolapse without mention of vaginal wall prolapse 08/03/2012 10/31/2012 Acute appendicitis without mention of peritoniti s 07/16/2007 09/19/2012 Hemorrhage of gastrointestinal tract, unspecifie d 08/28/2019 documented as of this encounter (statuses as of 12/22/2021) [facility] History of Past illness Narrative* Problem Noted Date Resolved Date Cystocele, midline 08/03/2012 10/31/2012 Rectocele 08/03/2012 10/31/2012 Uterine prolapse without mention of vaginal wall prolapse 08/03/2012 10/31/2012 Acute appendicitis without mention of peritoniti s 07/16/2007 09/19/2012 Hemorrhage of gastrointestinal tract, unspecifie d 08/28/2019 documented as of this encounter (statuses as of 06/18/2022) [facility] History of Past illness Narrative* Problem Noted Date Resolved Date Cystocele, midline 08/03/2012 10/31/2012 Rectocele 08/03/2012 10/31/2012 Uterine prolapse without mention of vaginal wall prolapse 08/03/2012 10/31/2012 Acute appendicitis without mention of peritoniti s 07/16/2007 09/19/2012 Hemorrhage of gastrointestinal tract, unspecifie d 08/28/2019 documented as of this encounter (statuses as of 08/06/2022) [facility] History of Past illness Narrative* Problem Noted Date Resolved Date Cystocele, midline 08/03/2012 10/31/2012 Rectocele 08/03/2012 10/31/2012 Uterine prolapse without mention of vaginal wall prolapse 08/03/2012 10/31/2012 Acute appendicitis without mention of peritoniti s 07/16/2007 09/19/2012 Hemorrhage of gastrointestinal tract, unspecifie d 08/28/2019 documented as of this encounter (statuses as of 09/09/2022) [facility] History of Past illness Narrative* Problem Noted Date Resolved Date Cystocele, midline 08/03/2012 10/31/2012 Rectocele 08/03/2012 10/31/2012 Uterine prolapse without mention of vaginal wall prolapse 08/03/2012 10/31/2012 Acute appendicitis without mention of peritoniti s 07/16/2007 09/19/2012 Hemorrhage of gastrointestinal tract, unspecifie d 08/28/2019 documented as of this encounter (statuses as of 09/21/2022) [facility] History of Past illness Narrative* Problem Noted Date Resolved Date Cystocele, midline 08/03/2012 10/31/2012 Rectocele 08/03/2012 10/31/2012 Uterine prolapse without mention of vaginal wall prolapse 08/03/2012 10/31/2012 Acute appendicitis without mention of peritoniti s 07/16/2007 09/19/2012 Hemorrhage of gastrointestinal tract, unspecifie d 08/28/2019 documented as of this encounter (statuses as of 11/10/2022) [facility] History of Past illness Narrative* Problem Noted Date Resolved Date Cystocele, midline 08/03/2012 10/31/2012 Rectocele 08/03/2012 10/31/2012 Uterine prolapse without mention of vaginal wall prolapse 08/03/2012 10/31/2012 Acute appendicitis without mention of peritoniti s 07/16/2007 09/19/2012 Hemorrhage of gastrointestinal tract, unspecifie d 08/28/2019 documented as of this encounter (statuses as of 11/11/2022) [place] [address]-12-2012 History of Past illness Narrative* Problem Noted Date Resolved Date Cystocele, midline 08/03/2012 10/31/2012 Rectocele 08/03/2012 10/31/2012 Uterine prolapse without mention of vaginal wall prolapse 08/03/2012 10/31/2012 Acute appendicitis without mention of peritoniti s 07/16/2007 09/19/2012 Hemorrhage of gastrointestinal tract, unspecifie d 08/28/2019 documented as of this encounter (statuses as of 11/27/2022) [facility] History of Past illness Narrative* Problem Noted Date Resolved Date Cystocele, midline 08/03/2012 10/31/2012 Rectocele 08/03/2012 10/31/2012 Uterine prolapse without mention of vaginal wall prolapse 08/03/2012 10/31/2012 Acute appendicitis without mention of peritoniti s 07/16/2007 09/19/2012 Hemorrhage of gastrointestinal tract, unspecifie d 08/28/2019 documented as of this encounter (statuses as of 01/27/2023) [facility] History of Past illness Narrative* Problem Noted Date Diagnosed Date Resolved Date Cystocele, midline 08/03/2012 3 Rectocele 08/03/2012 10/31/2012 Uterine prolapse without men tion of vaginal wall prolapse 08/03/2012 10/31/2012 Acute appendicitis without m ention of peritonitis 07/16/2007 09/19/2012 Hemorrhage of gastrointestin al tract, unspecified 08/28/2019 documented as of this encounter (statuses as of 05/09/2023) [facility] History of Past illness Narrative* Problem Noted Date Diagnosed Date Resolved Date Cystocele, midline 08/03/2012 3 Rectocele 08/03/2012 10/31/2012 Uterine prolapse without men tion of vaginal wall prolapse 08/03/2012 10/31/2012 Acute appendicitis without m ention of peritonitis 07/16/2007 09/19/2012 Hemorrhage of gastrointestin al tract, unspecified 08/28/2019 documented as of this encounter (statuses as of 06/27/2023) [facility] History of Past illness Narrative* Problem Noted Date Diagnosed Date Resolved Date Cystocele, midline 08/03/2012 3 Rectocele 08/03/2012 10/31/2012 Uterine prolapse without men tion of vaginal wall prolapse 08/03/2012 10/31/2012 Acute appendicitis without m ention of peritonitis 07/16/2007 09/19/2012 Hemorrhage of gastrointestin al tract, unspecified 08/28/2019 documented as of this encounter (statuses as of 07/22/2023) [facility] History of Past illness Narrative* Problem Noted Date Diagnosed Date Resolved Date Cystocele, midline 08/03/2012 3 Rectocele 08/03/2012 10/31/2012 Uterine prolapse without men tion of vaginal wall prolapse 08/03/2012 10/31/2012 Acute appendicitis without m ention of peritonitis 07/16/2007 09/19/2012 Hemorrhage of gastrointestin al tract, unspecified 08/28/2019 documented as of this encounter (statuses as of 07/28/2023) [facility] Diagnosis Tortuous colon- Primary Volvulus Internal hemorrhoids Internal hemorrhoids without mention of complication Diverticulosis Diverticulosis of colon (without mention of hemorrhage) Dysphagia, unspecified type [facility] Diagnosis Tick bite of right thigh, initial encounter- Primary [facility] Diagnosis Hypertension, unspecified type [facility] Diagnosis Essential hypertension- Primary Unspecified essential hypertension Mixed hyperlipidemia Cassidy's thyroiditis Chronic lymphocytic thyroiditis Medication management Encounter for long-term (current) use of other medications [facility] Diagnosis Medicare annual wellness visit, initial- Primary Routine general medical examination at a health care facility Advance directive discussed with patient Other specified counseling Essential hypertension Unspecified essential hypertension Mixed hyperlipidemia GERD without esophagitis Esophageal reflux Inflammatory arthritis Unspecified inflammatory polyarthropathy Fibromyalgia Mylagia and myositis, unspecified Cassidy's thyroiditis Chronic lymphocytic 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 Mixed incontinence urge and stress (male)(female) Elevated glucose Other abnormal glucose Encounter for screening mammogram for breast cancer Screening for colon cancer Special screening for malignant neoplasms, colon Onychomycosis Dermatophytosis of nail [facility] Diagnosis Encounter for screening mammogram for breast cancer [facility] Diagnosis Hypertension, unspecified type [facility] Diagnosis Asymptomatic menopause- Primary documented in this encounter [facility] for referral (narrative)* Diagnostic Procedure Only (Routine) - Authorized Specialty Diagnoses / Procedures Referred By Karishma canas Referred To Contact [facility] Diagnoses Encounter for screening mammogram for breast cancer Procedures LEIGH SCREENING SCREENING MAMMOGRAPHY BI 2-VIEW BREAST INC Magno Vasques PA-C [address] [place] [address] [facility] [address] [place] [address] Referral ID Status Reason Start Date Expiration Date Visits Requested Visits Authorized [id number] Authorized Auto-Generat ed Referral 09/21/2022 10/21/2023 1 1 [facility] for referral (narrative)* Diagnostic Procedure Only (Routine) - Closed Specialty Diagnoses / Procedures Referred By Karishma canas Referred To Contact [facility] Diagnoses Encounter for screening mammogram for breast cancer Procedures LEIGH SCREENING SCREENING MAMMOGRAPHY BI 2-VIEW BREAST INC Magno Vasques PA-C [address] [place] [address] [facility] [address] [place] [address] Referral ID Status Reason Start Date Expiration Date V isits Requested Visits Authorized [id number] Closed Auto-Generate d Referral 09/21/2022 10/21/2023 1 1 [facility] for visit Narrative* Diagnostic Procedure Only (Routine) - Closed Specialty Diagnoses / Procedures Referred By Karishma canas Referred To Contact [facility] Diagnoses Encounter for screening mammogram for breast cancer Procedures LEIGH SCREENING SCREENING MAMMOGRAPHY BI 2-VIEW BREAST INC Magno Vasques PA-C [address] [place] [address] [facility] [address] [place] [address] Referral ID Status Reason Start Date Expiration Date V isits Requested Visits Authorized [id number] Closed Auto-Generate d Referral 09/21/2022 10/21/2023 1 1 [facility] Advance Directives No Advanced Directives Records FoundDocuments on File Type Date Recorded 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 Advance Directive(s) 10/29/2021 6:46 AM Advance Directive(s) 03/23/2016 11:38 AM Summary Purpose Family History No Family History Records Found Additional Source Comments Source Comments (unrecognize d section and content) In the event this informatio n is protected by the Federal Confidentiality of Alcohol and Drug Abuse Patient Records regulations: The Federal rules restrict any use of the information to criminally investigate or prosecute any alcohol or drug abuse patient.[facility] the event this information is protected by the Federal Confidentiality of Alcohol and Drug Abuse Patient Records regulations: The Federal rules restrict any use of the information to criminally investigate or prosecute any alcohol or drug abuse patient.[facility] the event this information is protected by the Federal Confidentiality of Alcohol and Drug Abuse Patient Records regulations: The Federal rules restrict any use of the information to criminally investigate or prosecute any alcohol or drug abuse patient.[facility] the event this information is protected by the Federal Confidentiality of Alcohol and Drug Abuse Patient Records regulations: The Federal rules restrict any use of the information to criminally investigate or prosecute any alcohol or drug abuse patient.[facility] the event this information is protected by the Federal Confidentiality of Alcohol and Drug Abuse Patient Records regulations: The Federal rules restrict any use of the information to criminally investigate or prosecute any alcohol or drug abuse patient.[facility] the event this information is protected by the Federal Confidentiality of Alcohol and Drug Abuse Patient Records regulations: The Federal rules restrict any use of the information to criminally investigate or prosecute any alcohol or drug abuse patient.[facility] the event this information is protected by the Federal Confidentiality of Alcohol and Drug Abuse Patient Records regulations: The Federal rules restrict any use of the information to criminally investigate or prosecute any alcohol or drug abuse patient.[facility] the event this information is protected by the Federal Confidentiality of Alcohol and Drug Abuse Patient Records regulations: The Federal rules restrict any use of the information to criminally investigate or prosecute any alcohol or drug abuse patient.[facility] the event this information is protected by the Federal Confidentiality of Alcohol and Drug Abuse Patient Records regulations: The Federal rules restrict any use of the information to criminally investigate or prosecute any alcohol or drug abuse patient.[facility] the event this information is protected by the Federal Confidentiality of Alcohol and Drug Abuse Patient Records regulations: The Federal rules restrict any use of the information to criminally investigate or prosecute any alcohol or drug abuse patient.[facility] the event this information is protected by the Federal Confidentiality of Alcohol and Drug Abuse Patient Records regulations: The Federal rules restrict any use of the information to criminally investigate or prosecute any alcohol or drug abuse patient.[facility] the event this information is protected by the Federal Confidentiality of Alcohol and Drug Abuse Patient Records regulations: The Federal rules restrict any use of the information to criminally investigate or prosecute any alcohol or drug abuse patient.[facility] the event this information is protected by the Federal Confidentiality of Alcohol and Drug Abuse Patient Records regulations: The Federal rules restrict any use of the information to criminally investigate or prosecute any alcohol or drug abuse patient.[facility] the event this information is protected by the Federal Confidentiality of Alcohol and Drug Abuse Patient Records regulations: The Federal rules restrict any use of the information to criminally investigate or prosecute any alcohol or drug abuse patient.[facility] the event this information is protected by the Federal Confidentiality of Alcohol and Drug Abuse Patient Records regulations: The Federal rules restrict any use of the information to criminally investigate or prosecute any alcohol or drug abuse patient.[facility] Reason for Visit (unrecogniz ed section and content) Reason Comments external labs Reason Comments Trauma Pt reported tick emb edded (RT) thigh, denied pain. Reason Onset Date Comments Refill Request 08/05/2022 Reason Comments Lab Orders Reason Comments Yearly Exam Reason Comments Results Reason Comments Results, Lab Reason Onset Date Comments Population Health Navigation Outreach 01/26/2023 [employer] Care Gaps Reason Comments Outside [id number] Ordered Reason Onset Date Comments Refill Request 07/21/2023 Reason Comments Bone Density Test Question Care Teams (unrecognized sec tion and content) Art Objects Supervisor Relationship Specialty Start Date End Date Leola Fry MD [address] [place] [id number] PCP - General Family Practice 08/28/19 Art Objects Supervisor Relationship Specialty Start Date End Date Leola Fry MD [address] [place] [id number] PCP - General Family Medicine 08/28/19 Art Objects Supervisor Relationship Specialty Start Date End Date Leola Fry MD [address] [place] [address] PCP - General Family Medicine 08/28/19 Art Objects Supervisor Relationship Specialty Start Date End Date Leola Fry MD [address] [place] [id number] PCP - General Family Medicine 08/28/19 Art Objects Supervisor Relationship Specialty Start Date End Date Leola Fry MD [address] [place] [address] PCP - General Family Medicine 08/28/19 Art Objects Supervisor Relationship Specialty Start Date End Date Leola Fry MD [address] [place] [id number] PCP - General Family Medicine 08/28/19 Art Objects Supervisor Relationship Specialty Start Date End Date Leola Fry MD [address] [place] [address] PCP - General Family Medicine 08/28/19 Art Objects Supervisor Relationship Specialty Start Date End Date Leola Fry MD [address] [place] [address] PCP - General Family Medicine 08/28/19 Art Objects Supervisor Relationship Specialty Start Date End Date Leola Fry MD [address] [place] [address] PCP - General Family [facility] 08/28/19 Art Objects Supervisor Relationship Specialty Start Date End Date Leola Fry MD [address] [place] [address] PCP - [facility] 08/28/19 Art Objects Supervisor Relationship Specialty Start Date End Date Leola Fry MD [address] [place] [address] PCP - General Family Medicine 08/28/19 INFORMATION SOURCE (unrecogn ized section and content) FOR RECORDS PERTAINING TO PATIENTS WHO ARE OR HAVE BEEN ENROLLED IN A CHEMICAL DEPENDENCY/SUBSTANCEABUSE PROGRAM, SOME INFORMATION MAY BE OMITTED. This clinical summary was aggregated from multiple sources. Caution should be exercised in using it in the provision of clinical care. This summary normalizes information from multiple sources, and as a consequence, information in this document may materially change the coding, format and clinical context of patient data. In addition, data may be omitted in some cases. CLINICAL DECISIONS SHOULD BE BASED ON THE PRIMARY CLINICAL RECORDS. [employer] provides no warranty or guarantee of the accuracy or completeness of information in this document.
[2023-10-22 12:25] LABS: Absolute Lymphocyte Count 0.62 X10^3/uL (0.83-4.51); Absolute Neutrophil Count 2.5 X10^3/uL (2.0-7.7); Basophil# 0.03 X10^3/uL; Basophil% 0.9 % (0-1); Eosinophil# 0.11 X10^3/uL; Eosinophils% 3.2 % (0-5); Hematocrit 40.7 % (37-47); Hemoglobin 13.2 g/dL (12.0-15.0); Lymphocyte # 0.62 X10^3/ul (0.83-4.51); Mean Corp Hgb Conc 32.4 g/dL (32-36); Mean Corpuscular Volume 104.9 fL (81-99); Mean Platelet Vol. 10.2 fl (6.2-12.0); Monocyte# 0.23 X10^3/uL; Monocyte% 6.7 % (0-10); NRBC Flagged by Analyzer 0 % (0-5); Neutrophil # 2.45 X10^3/uL (2.7-7.7); Neutrophil % 70.9 % (47-70); Platelet Count 167 K/mm3 (150-450); RBC Distribution Width CV 12.7 % (11.6-14.6); RBC Distribution Width SD 48.8 fl (35.1-43.9); Red Blood Count 3.88 M/mm3 (4.2-5.4); White Blood Count 3.5 K/mm3 (4.4-11.0)
[2023-10-22 12:33] LABS: ALB/GLOB Ratio 1.3 RATIO (0.9-2.4); AST(SGOT) 15 U/L (15-37); Alanine Aminotransfer ALT/SGPT 15 U/L (13-56); Albumin, Serum 3.9 g/dL (3.2-5.0); Alkaline Phosphatase 86 U/L (45-117); Anion Gap 2 (5-15); BUN 16 mg/dL (7-18); BUN/Creat Ratio 18.2 RATIO (10-20); Calcium,Total 9.1 mg/dL (8.5-10.1); Chloride 106 mmol/L (98-107); Creatinine, Serum 0.88 mg/dL (0.55-1.02); EST Glomerular Filtration Rate 68 mL/min (>60); Est Glom Filt Rate - Afr Amer 82 mL/min (>60); Globulin 3.1 g/dL (2.2-4.2); Glucose 128 mg/dL (74-106); Sodium Level 140 mmol/L (136-145)
== END | disposition home or self-care (01) ==
LOC: MTLAB 10:56
PROVIDERS: PCP Family Medicine; Referring Provider Internal Medicine Rheumatology; Visit Provider Internal Medicine Rheumatology
DX: M06.4 Inflammatory polyarthropathy (principal); R76.8 Other specified abnormal immunological findings in serum; M79.7 Fibromyalgia; M17.0 Bilateral primary osteoarthritis of knee; M18.0 Bilateral primary osteoarthritis of first carpometacarpal joints; M19.041 Primary osteoarthritis, right hand; M47.897 Other spondylosis, lumbosacral region; I10 Essential (primary) hypertension; K21.9 Gastro-esophageal reflux disease without esophagitis; J30.9 Allergic rhinitis, unspecified; K57.90 Diverticulosis of intestine, part unspecified, without perforation or abscess without bleeding; Z79.899 Other long term (current) drug therapy
CPT/HCPCS: 36415; 80053; 85025

== ENCOUNTER → 2024-01-21 | Outpatient (CLI) | payer MEDICARE, SELFPAY ==
[2024-01-21 10:18] LABS: Absolute Lymphocyte Count 0.91 X10^3/uL (0.83-4.51); Absolute Neutrophil Count 1.9 X10^3/uL (2.0-7.7); Basophil# 0.02 X10^3/uL; Basophil% 0.6 % (0-1); Eosinophil# 0.12 X10^3/uL; Eosinophils% 3.7 % (0-5); Hematocrit 39.4 % (37-47); Hemoglobin 12.9 g/dL (12.0-15.0); Lymphocyte # 0.91 X10^3/ul (0.83-4.51); Lymphocyte % 28.1 % (19-41); Mean Corp Hgb Conc 32.7 g/dL (32-36); Mean Corpuscular Hgb 34.5 pg (27.0-32.0); Mean Corpuscular Volume 105.3 fL (81-99); Mean Platelet Vol. 10.2 fl (6.2-12.0); Monocyte% 9.3 % (0-10); NRBC Flagged by Analyzer 0 % (0-5); Neutrophil # 1.88 X10^3/uL (2.7-7.7); Platelet Count 181 K/mm3 (150-450); RBC Distribution Width CV 13.2 % (11.6-14.6); RBC Distribution Width SD 51.1 fl (35.1-43.9); Red Blood Count 3.74 M/mm3 (4.2-5.4); White Blood Count 3.2 K/mm3 (4.4-11.0)
[2024-01-21 10:41] LABS: ALB/GLOB Ratio 1.3 RATIO (0.9-2.4); AST(SGOT) 24 U/L (15-37); Alanine Aminotransfer ALT/SGPT 17 U/L (13-56); Albumin, Serum 3.9 g/dL (3.2-5.0); Alkaline Phosphatase 67 U/L (45-117); Anion Gap 3 (5-15); BUN 12 mg/dL (7-18); BUN/Creat Ratio 14.1 RATIO (10-20); Calcium,Total 8.8 mg/dL (8.5-10.1); Chloride 109 mmol/L (98-107); Creatinine, Serum 0.85 mg/dL (0.55-1.02); EST Glomerular Filtration Rate 70 mL/min (>60); Est Glom Filt Rate - Afr Amer 85 mL/min (>60); Glucose 96 mg/dL (74-106); Potassium 3.8 mmol/L (3.5-5.1); Protein, Total 6.9 g/dL (6.4-8.2); Sodium Level 141 mmol/L (136-145)
== END | disposition home or self-care (01) ==
LOC: MTLAB 08:23
PROVIDERS: PCP Family Medicine; Referring Provider Internal Medicine Rheumatology; Visit Provider Internal Medicine Rheumatology
DX: M06.4 Inflammatory polyarthropathy (principal); R76.8 Other specified abnormal immunological findings in serum; M79.7 Fibromyalgia; M17.0 Bilateral primary osteoarthritis of knee; Z79.899 Other long term (current) drug therapy
CPT/HCPCS: 36415; 80053; 85025

== ENCOUNTER → 2024-04-17 | Outpatient (CLI) | payer MEDICARE, SELFPAY ==
[2024-04-17 10:20] LABS: Absolute Lymphocyte Count 0.73 X10^3/uL (0.83-4.51); Absolute Neutrophil Count 1.5 X10^3/uL (2.0-7.7); Basophil# 0.03 X10^3/uL; Basophil% 1.2 % (0-1); Eosinophil# 0.06 X10^3/uL; Eosinophils% 2.3 % (0-5); Hematocrit 43.1 % (37-47); Hemoglobin 14.4 g/dL (12.0-15.0); Lymphocyte # 0.73 X10^3/ul (0.83-4.51); Lymphocyte % 28.4 % (19-41); Mean Corp Hgb Conc 33.4 g/dL (32-36); Mean Corpuscular Hgb 35.3 pg (27.0-32.0); Mean Corpuscular Volume 105.6 fL (81-99); Mean Platelet Vol. 9.9 fl (6.2-12.0); Monocyte% 7.8 % (0-10); NRBC Flagged by Analyzer 0 % (0-5); Neutrophil # 1.54 X10^3/uL (2.7-7.7); Neutrophil % 59.9 % (47-70); Platelet Count 171 K/mm3 (150-450); RBC Distribution Width CV 12.6 % (11.6-14.6); RBC Distribution Width SD 49.2 fl (35.1-43.9); Red Blood Count 4.08 M/mm3 (4.2-5.4); White Blood Count 2.6 K/mm3 (4.4-11.0)
[2024-04-17 11:15] LABS: ALB/GLOB Ratio 1.3 RATIO (0.9-2.4); AST(SGOT) 23 U/L (15-37); Alanine Aminotransfer ALT/SGPT 21 U/L (13-56); Albumin, Serum 4.1 g/dL (3.2-5.0); Alkaline Phosphatase 81 U/L (45-117); Anion Gap 7 (5-15); BUN 13 mg/dL (7-18); BUN/Creat Ratio 13.4 RATIO (10-20); Calcium,Total 9.4 mg/dL (8.5-10.1); Chloride 105 mmol/L (98-107); Creatinine, Serum 0.97 mg/dL (0.55-1.02); EST Glomerular Filtration Rate 61 mL/min (>60); Est Glom Filt Rate - Afr Amer 73 mL/min (>60); Globulin 3.2 g/dL (2.2-4.2); Glucose 118 mg/dL (74-106); Potassium 3.7 mmol/L (3.5-5.1); Protein, Total 7.3 g/dL (6.4-8.2); Sodium Level 140 mmol/L (136-145)
== END | disposition home or self-care (01) ==
LOC: MTLAB 09:06
PROVIDERS: PCP Family Medicine; Referring Provider Internal Medicine Rheumatology; Visit Provider Internal Medicine Rheumatology
DX: M06.4 Inflammatory polyarthropathy (principal); R76.8 Other specified abnormal immunological findings in serum; M79.7 Fibromyalgia; M17.0 Bilateral primary osteoarthritis of knee; M18.0 Bilateral primary osteoarthritis of first carpometacarpal joints; M19.041 Primary osteoarthritis, right hand; Z79.899 Other long term (current) drug therapy
CPT/HCPCS: 36415; 80053; 85025

== ENCOUNTER → 2024-05-19 | Outpatient (CLI) | payer MEDICARE, SELFPAY ==
[2024-05-19 12:46] LABS: Absolute Lymphocyte Count 1.07 X10^3/uL (0.83-4.51); Absolute Neutrophil Count 2.5 X10^3/uL (2.0-7.7); Basophil# 0.02 X10^3/uL; Basophil% 0.5 % (0-1); Eosinophils% 2.6 % (0-5); Hematocrit 38.8 % (37-47); Hemoglobin 12.6 g/dL (12.0-15.0); Lymphocyte # 1.07 X10^3/ul (0.83-4.51); Lymphocyte % 27.4 % (19-41); Mean Corp Hgb Conc 32.5 g/dL (32-36); Mean Corpuscular Hgb 34.7 pg (27.0-32.0); Mean Corpuscular Volume 106.9 fL (81-99); Mean Platelet Vol. 10.3 fl (6.2-12.0); Monocyte# 0.25 X10^3/uL; Monocyte% 6.4 % (0-10); NRBC Flagged by Analyzer 0 % (0-5); Neutrophil # 2.45 X10^3/uL (2.7-7.7); Neutrophil % 62.8 % (47-70); Platelet Count 187 K/mm3 (150-450); RBC Distribution Width CV 13.1 % (11.6-14.6); RBC Distribution Width SD 51.5 fl (35.1-43.9); Red Blood Count 3.63 M/mm3 (4.2-5.4); White Blood Count 3.9 K/mm3 (4.4-11.0)
== END | disposition home or self-care (01) ==
LOC: MTLAB 09:54
PROVIDERS: PCP Family Medicine; Referring Provider Internal Medicine Rheumatology; Visit Provider Internal Medicine Rheumatology
DX: M06.4 Inflammatory polyarthropathy (principal); Z79.899 Other long term (current) drug therapy; R76.8 Other specified abnormal immunological findings in serum; M79.7 Fibromyalgia
CPT/HCPCS: 36415; 85025

== ENCOUNTER → 2024-07-14 | Outpatient (CLI) | payer MEDICARE, SELFPAY ==
[2024-07-14 10:32] LABS: Absolute Lymphocyte Count 1.01 X10^3/uL (0.83-4.51); Absolute Neutrophil Count 2.5 X10^3/uL (2.0-7.7); Basophil# 0.03 X10^3/uL; Basophil% 0.8 % (0-1); Eosinophil# 0.09 X10^3/uL; Eosinophils% 2.3 % (0-5); Hematocrit 41.3 % (37-47); Hemoglobin 14.1 g/dL (12.0-15.0); Lymphocyte # 1.01 X10^3/ul (0.83-4.51); Lymphocyte % 26.2 % (19-41); Mean Corp Hgb Conc 34.1 g/dL (32-36); Mean Corpuscular Hgb 35.7 pg (27.0-32.0); Mean Corpuscular Volume 104.6 fL (81-99); Mean Platelet Vol. 10.2 fl (6.2-12.0); Monocyte# 0.21 X10^3/uL; Monocyte% 5.5 % (0-10); NRBC Flagged by Analyzer 0 % (0-5); Neutrophil # 2.49 X10^3/uL (2.7-7.7); Neutrophil % 64.7 % (47-70); Platelet Count 179 K/mm3 (150-450); RBC Distribution Width CV 12.6 % (11.6-14.6); RBC Distribution Width SD 48.3 fl (35.1-43.9); Red Blood Count 3.95 M/mm3 (4.2-5.4); White Blood Count 3.9 K/mm3 (4.4-11.0)
[2024-07-14 10:52] LABS: ALB/GLOB Ratio 1.2 RATIO (0.9-2.4); AST(SGOT) 17 U/L (15-37); Alanine Aminotransfer ALT/SGPT 18 U/L (13-56); Alkaline Phosphatase 81 U/L (45-117); Anion Gap 6 (5-15); BUN 17 mg/dL (7-18); BUN/Creat Ratio 20.1 RATIO (10-20); Calcium,Total 9.2 mg/dL (8.5-10.1); Chloride 104 mmol/L (98-107); Creatinine, Serum 0.85 mg/dL (0.55-1.02); EST Glomerular Filtration Rate 71 mL/min (>60); Est Glom Filt Rate - Afr Amer 85 mL/min (>60); Globulin 3.3 g/dL (2.2-4.2); Glucose 193 mg/dL (74-106); Potassium 3.6 mmol/L (3.5-5.1); Protein, Total 7.3 g/dL (6.4-8.2); Sodium Level 140 mmol/L (136-145)
== END | disposition home or self-care (01) ==
LOC: MTLAB 09:30
PROVIDERS: PCP Family Medicine; Referring Provider Internal Medicine Rheumatology; Visit Provider Internal Medicine Rheumatology
DX: M06.4 Inflammatory polyarthropathy (principal); Z79.899 Other long term (current) drug therapy; R76.8 Other specified abnormal immunological findings in serum; M79.7 Fibromyalgia
CPT/HCPCS: 36415; 80053; 85025

== ENCOUNTER → 2024-10-03 | Outpatient (CLI) | payer MEDICARE, SELFPAY ==
[2024-10-03 10:14] LABS: Absolute Lymphocyte Count 0.98 X10^3/uL (0.83-4.51); Absolute Neutrophil Count 2.4 X10^3/uL (2.0-7.7); Basophil# 0.03 X10^3/uL; Basophil% 0.8 % (0-1); Eosinophils% 2.7 % (0-5); Hematocrit 40.5 % (37-47); Hemoglobin 13.7 g/dL (12.0-15.0); Lymphocyte # 0.98 X10^3/ul (0.83-4.51); Lymphocyte % 26.1 % (19-41); Mean Corp Hgb Conc 33.8 g/dL (32-36); Mean Corpuscular Hgb 35.1 pg (27.0-32.0); Mean Corpuscular Volume 103.8 fL (81-99); Mean Platelet Vol. 10.1 fl (6.2-12.0); Monocyte# 0.25 X10^3/uL; Monocyte% 6.6 % (0-10); NRBC Flagged by Analyzer 0 % (0-5); Neutrophil # 2.39 X10^3/uL (2.7-7.7); Neutrophil % 63.5 % (47-70); Platelet Count 189 K/mm3 (150-450); RBC Distribution Width CV 13.1 % (11.6-14.6); RBC Distribution Width SD 49.7 fl (35.1-43.9); White Blood Count 3.8 K/mm3 (4.4-11.0)
[2024-10-03 10:59] LABS: ALB/GLOB Ratio 1.2 RATIO (0.9-2.4); AST(SGOT) 20 U/L (15-37); Alanine Aminotransfer ALT/SGPT 16 U/L (13-56); Albumin, Serum 3.9 g/dL (3.2-5.0); Alkaline Phosphatase 84 U/L (45-117); Anion Gap 7 (5-15); BUN 19 mg/dL (7-18); BUN/Creat Ratio 23.5 RATIO (10-20); Calcium,Total 9.3 mg/dL (8.5-10.1); Chloride 104 mmol/L (98-107); Creatinine, Serum 0.81 mg/dL (0.55-1.02); EST Glomerular Filtration Rate 74 mL/min (>60); Est Glom Filt Rate - Afr Amer 90 mL/min (>60); Globulin 3.3 g/dL (2.2-4.2); Glucose 133 mg/dL (74-106); Potassium 3.5 mmol/L (3.5-5.1); Protein, Total 7.2 g/dL (6.4-8.2); Sodium Level 140 mmol/L (136-145)
== END | disposition home or self-care (01) ==
LOC: MTLAB 07:53
PROVIDERS: PCP Family Medicine; Referring Provider Internal Medicine Rheumatology; Visit Provider Internal Medicine Rheumatology
DX: M06.4 Inflammatory polyarthropathy (principal); Z79.899 Other long term (current) drug therapy; R76.8 Other specified abnormal immunological findings in serum; M79.7 Fibromyalgia
CPT/HCPCS: 36415; 80053; 85025

== ENCOUNTER → 2024-11-14 | Outpatient (CLI) | payer MEDICARE, SELFPAY ==
--- NOTE | 2024-11-14 11:31 | NEURO ---
NCS and/or EMG Patient Report Ordering Doctor: Manoj Cook DATE OF SERVICE: 11/14/24 Clinical Summary: 69 year old female with symptoms of possible numbness in the fingers of the left hand. Nerve Conduction Studies Summary: Nerve conduction studies were performed in the left upper extremity. The left median-D2 SNAP distal latency was prolonged. The left median motor conduction velocity was decreased in the forearm segment. Needle Examination Summary: Needle examination of select muscles of the left upper extremity was normal. Impression: This is an abnormal study. There is electrodiagnostic evidence of a mild, left median mononeuropathy at the wrist (carpal tunnel syndrome), with sensory fiber demyelination There is no electrodiagnostic evidence of a left ulnar neuropathy or cervical radiculopathy. Multi Select Codes Neurology Neurology Interp Codes: 35491-57 Musc test done w/n test comp (interp) (1) and 58060-60 Nrv cndj test 7-8 studies (interp)
== END | disposition home or self-care (01) ==
LOC: PSN 10:26
PROVIDERS: PCP Family Medicine; Referring Provider Orthopaedic Surgery; Visit Provider Orthopaedic Surgery
DX: R20.0 Anesthesia of skin (principal); R20.2 Paresthesia of skin; G56.02 Carpal tunnel syndrome, left upper limb
CPT/HCPCS: 95886; 95910

== ENCOUNTER → 2024-11-27 | Outpatient (CLI) | payer MEDICARE, SELFPAY ==
[2024-11-27 10:26] LABS: Erythrocyte Sedimentation Rate 4 mm/hr (0-30)
[2024-11-27 10:56] LABS: Vitamin B12 747 pg/mL (180-914)
[2024-11-27 11:21] LABS: CRP 3.68 mg/L (0.0-3.0); LDH 264 U/L (84-246)
[2024-11-30 06:08] LABS: Alpha-1-Globulins 0.3 g/dL (0.0-0.4); Alpha-2-Globulins 0.7 g/dL (0.4-1.0); Anti-Parietal Cell AB, QN 1.4 Units (0.0-20.0); Deamidated Gliadin IgA 8 units (0-19); Deamidated Gliadin IgG 5 units (0-19); Endomysial Antibody IgA Negative (Negative); Gamma Globulin 1.2 g/dL (0.4-1.8); Gastrin, Serum 665 pg/mL (0-115); Immunoglobulin A 91 mg/dL (87-352); Immunoglobulin G 1053 mg/dL (586-1602); Immunoglobulin M 122 mg/dL (26-217); t-Transglutaminase IgA 3 U/mL (0-3)
== END | disposition home or self-care (01) ==
LOC: LAB 09:39
PROVIDERS: PCP Family Medicine; Referring Provider Internal Medicine Gastroenterology; Visit Provider Internal Medicine Gastroenterology
DX: K21.9 Gastro-esophageal reflux disease without esophagitis (principal); E03.9 Hypothyroidism, unspecified
CPT/HCPCS: 36415; 82607; 82784; 82941; 83516; 83615; 84165; 84443; 85652; 86140; 86255; 86334; 86340

== ENCOUNTER → 2024-12-18 | Outpatient (CLI) | payer MEDICARE, SELFPAY ==
--- NOTE | 2024-12-18 12:34 | NM_ITS ---
PROCEDURE: GASTRIC EMPTYING STUDY 12/18/2024 REASON FOR EXAM: BLOATING COMPARISON: None. TECHNIQUE: The patient ingested a standard meal of cooked egg whites mixed with , toasted white bread, jelly, and water. Total time taken to ingest the meal was minutes. Approximately % of the meal was ingested. There was no vomiting postprandially. Anterior and posterior planar images of the upper abdomen were obtained for 1 minute immediately following the meal at 1h, 2h and 4h if more than 10% of the activity persisted within the stomach. Regions of interest were drawn, and a geometric mean was used to calculate a [id number]. Fasting Blood Glucose (if diabetic): mg/dL. Medications taken in the past 24 hours that may affect gastric emptying: None RADIOPHARMACEUTICAL: 1 mCi of technetium 99 M sulfur colloid FINDINGS: Percent activity remaining in stomach: 1 hour 35 % (normal 37-90%) 2 hours: % (normal 30-60%) 4 hours: % (normal 0-10%) NM/Gastric Emptying Study IMPRESSION: Normal gastric emptying Reading Location: [id number]
== END | disposition home or self-care (01) ==
PROVIDERS: PCP Family Medicine; Referring Provider Internal Medicine Gastroenterology; Visit Provider Internal Medicine Gastroenterology
DX: K21.9 Gastro-esophageal reflux disease without esophagitis (principal)
CPT/HCPCS: 78264; A9541

== ENCOUNTER → 2024-12-26 | Outpatient (CLI) | payer MEDICARE, SELFPAY ==
[2024-12-26 10:26] LABS: Absolute Lymphocyte Count 1.02 X10^3/uL (0.83-4.51); Basophil# 0.02 X10^3/uL; Basophil% 0.6 % (0-1); Eosinophil# 0.11 X10^3/uL; Eosinophils% 3.2 % (0-5); Hematocrit 38.7 % (37-47); Hemoglobin 13.2 g/dL (12.0-15.0); Lymphocyte # 1.02 X10^3/ul (0.83-4.51); Lymphocyte % 29.9 % (19-41); Mean Corp Hgb Conc 34.1 g/dL (32-36); Mean Corpuscular Hgb 35.4 pg (27.0-32.0); Mean Corpuscular Volume 103.8 fL (81-99); Mean Platelet Vol. 10.2 fl (6.2-12.0); Monocyte# 0.28 X10^3/uL; Monocyte% 8.2 % (0-10); NRBC Flagged by Analyzer 0 % (0-5); Neutrophil # 1.97 X10^3/uL (2.7-7.7); Neutrophil % 57.8 % (47-70); Platelet Count 198 K/mm3 (150-450); RBC Distribution Width CV 12.7 % (11.6-14.6); RBC Distribution Width SD 48.5 fl (35.1-43.9); Red Blood Count 3.73 M/mm3 (4.2-5.4); White Blood Count 3.4 K/mm3 (4.4-11.0)
[2024-12-26 11:04] LABS: ALB/GLOB Ratio 1.7 RATIO (0.9-2.4); AST(SGOT) 25 U/L (<=31); Alanine Aminotransfer ALT/SGPT 10 U/L (<=34); Albumin, Serum 4.3 g/dL (3.4-4.8); Alkaline Phosphatase 89 U/L (35-104); Anion Gap 10 (5-15); BUN 18 mg/dL (4-19); BUN/Creat Ratio 22.8 RATIO (10-20); Calcium,Total 9.6 mg/dL (7.6-11.0); Carbon Dioxide 27.8 mmol/L (21.0-32.0); Chloride 103 mmol/L (98-108); EST Glomerular Filtration Rate 79 (>60); Globulin 2.6 g/dL (2.2-4.2); Glucose 110 mg/dL (70-99); Potassium 4.3 mmol/L (3.3-5.1); Protein, Total 6.9 g/dL (5.9-8.4); Sodium Level 141 mmol/L (133-145); Total Bilirubin 0.68 mg/dL (0.00-1.30)
== END | disposition home or self-care (01) ==
LOC: MTLAB 08:27
PROVIDERS: PCP Family Medicine; Referring Provider Internal Medicine Rheumatology; Visit Provider Internal Medicine Rheumatology
DX: M06.09 Rheumatoid arthritis without rheumatoid factor, multiple sites (principal); Z79.899 Other long term (current) drug therapy; R76.8 Other specified abnormal immunological findings in serum
CPT/HCPCS: 36415; 80053; 85025

== ENCOUNTER 2025-02-12 08:46 | Day surgery (SDC) | payer MEDICARE, SELFPAY ==
[2025-02-12] VITALS (9 sets, daily range): BP systolic 112–151; BP diastolic 55–81; PULSE 44–74; RESP 16; TEMP 36.1–36.6; O2SAT 97–99; BMI 36.1
[2025-02-12] MEDS: Lactated Ringers 1,000 ML 15 ML IV (09:25)
--- NOTE | 2025-02-12 09:41 | PCM.HP.STD ---
HPI - General General Date of Admission: 02/12/25 Date of Service: 02/12/25 Chief Complaint: GERD and personal history of polyps HPI Narrative ELISHA GODFREY, is a 69 F who presents for an EGD and colonoscopy. *[facility] established 4.7.25 pt reports that she is here to transfer care and to discuss scheduling for EGD and colonoscopy. Pt reports her last scopes were in 2021 and it was recommended she repeat within 1-2 years. Pt reports a burning sensation in her abdomen that comes in clusters, and is unable to identify trigger. Pt reports difficulty swallowing dry foods like bread and chicken. Pt continues with pantoprazole 40mg daily, thinks it is helpful, but not fully effective. [facility] Medical History Wears glasses Rheumatoid arthritis TIA (transient ischemic attack) History of hiatal hernia Difficulty swallowing Non-smoker Shortness of breath on exertion Leg cramps History of edema GERD (gastroesophageal reflux disease) Osteopenia Osteoarthritis Hypertension Problems with hearing Migraines Cataracts, bilateral History of back problems Arthritis Seasonal allergies Home Medications ?Medication ?Instructions ?Recorded ?Last Taken ?Type Ibuprofen [Motrin] 800 mg PO TID PRN PRN Pain 05/26/16 Unknown History aspirin 81 mg tablet,delayed 81 mg PO MOWEFR 05/26/16 02/07/25 History release calcium carbonate (Oyster Shell 500 mg PO BID 05/26/16 02/11/25 History Calcium 500) cholecalciferol (vitamin D3) 25 2,000 unit PO BID 05/26/16 02/11/25 History mcg (1,000 unit) tablet (Vitamin D3) fexofenadine-pseudoephedrine ER 1 ea PO DAILY 05/26/16 02/11/25 History 180 mg-240 mg tablet,ext.release 24 hr (Carmelita-D 24 Hour) omega-3 fatty acids-fish oil 340 1 ea PO DAILY 05/26/16 02/06/25 History mg-1,000 mg capsule (Fish Oil) ramipril 5 mg capsule 5 mg PO DAILY 05/26/16 02/11/25 History vitamin B complex 1 ea PO DAILY 05/26/16 02/11/25 History ascorbic acid (vitamin C) 1,000 mg 1 g PO QDAY 11/21/24 02/11/25 History capsule methotrexate sodium 2.5 mg tablet 20 mg PO SA 11/21/24 02/03/25 History pantoprazole 40 mg tablet,delayed 40 mg PO QDAY 11/21/24 02/11/25 History release folic acid 1 mg tablet 2 mg PO QDAY 11/27/24 02/11/25 History Allergy/AdvReac Type Severity Reaction Status Date / Time lansoprazole (From Prevacid) Allergy Hives Verified 02/12/25 09:25 latex Allergy Unknown Verified 02/12/25 09:25 alendronate sodium (From AdvReac Unknown heartburn Verified 02/12/25 09:25 Fosamax) adhesive AdvReac Unknown Verified 02/12/25 09:25 diphenhydramine (From AdvReac FEEL Verified 02/12/25 09:25 Benadryl) WEIRD Family History Mother Arthritis Brother Arthritis Colon cancer Diabetes Heart disease Surgical History History of esophagogastroduodenoscopy (EGD) History of colonoscopy History of tubal ligation H/O: hysterectomy History of appendectomy History of tonsillectomy Social History Smoking Status: Never smoker alcohol intake: never substance use type: does not use what type of physical activity do you participate in: none ROS Constitutional Constitutional: Denies fatigue, fever(s), poor appetite, weight gain or weight loss Gastrointestinal Gastrointestinal: Denies belching, bloating, change in bowel habits, change in stool character, chewing difficulty, coffee ground emesis, constipation, cramping, diarrhea, dyspepsia, dysphagia, early satiety, excessive flatus, fecal incontinence, heartburn, hematemesis, hematochezia, hemorrhoids, loose stools, melena, nausea, odynophagia, rectal bleeding, tenesmus, vomiting or weight changes Vital Signs Vital Signs Vital Signs: 02/12/25 09:26 02/12/25 09:26 Temperature 96.9 F L Temperature Source Temporal Pulse Rate 63 Respiratory Rate 16 Respiratory Pattern Normal Blood Pressure 151/81 H Blood Pressure Mean 104 Blood Pressure Source Monitor Blood Pressure Position Semi-Fowlers Blood Pressure Location Left Arm Pulse Ox 99 Oxygen Delivery Method Room Air Weight Weight: 191 lb 2.252 oz Body Mass Index (BMI) 36.1 Physical Exam Const alert, oriented x3, no apparent distress and healthy appearing General Appearance: cooperative GI normal to inspection, nondistended, normoactive bowel sounds, soft to palpation, non-tender and non-distended Percussion: normal to percussion Rectal Exam: deferred Assessment & Plan Assessment/Plan (1) Personal history of colon polyps, unspecified: (2) GERD (gastroesophageal reflux disease): (3) Abdominal pain: PLAN: Assessment and Plan Assessment and Plan (1) Gastroesophageal reflux disease: Status: Acute (2) Personal history of colon polyps, unspecified: Status: Acute (3) Abdominal pain: Status: Acute Plan: Elisha is a very pleasant 69-year-old with past medical history of rheumatoid arthritis mostly involving her hands and upper extremities on methotrexate and folic acid, fibromyalgia, gastroesophageal reflux disease and intermittent left lower quadrant pain. She also has a personal history of adenomatous polyp and a family history of gastric cancer. She comes in today for initial evaluation regarding her ongoing gastral intestinal symptoms. We had previously ordered multiple PPIs in the past. Currently she is on pantoprazole 40 mg a day and she does have some good symptom control of what she calls her lower esophageal pain. She denies any esophageal dysphagia. She denies any chest pain or shortness of breath. She says she has had a cardiac workup in the past which has been normal. She does not take any NSAIDs on a daily basis for her rheumatoid arthritis. He did have a colonoscopy approximately 2 years ago which was incomplete. She has been getting intermittent left lower quadrant pain which lasts about 2 or 3 days but gets better spontaneously. This pain is associated with incomplete evacuation. She denies any bleeding per rectum. She denies any chest pain, shortness of breath or other change in bowel habits. Admitting diagnosis for upper GI symptoms with the autoimmune gastritis, gastroparesis, celiac disease, peptic ulcer disease, atypical GERD The diagnosis for lower GI symptoms would be a segment of colitis associated with diverticulosis, mild ischemic colitis, IBS with intermittent constipation Recommendation: Gastric emptying study consider CT scan abdomen pelvis because she has never had an Her blood work including inflammatory markers, thyroid studies, gastrin, antibodies for autoimmune gastritis EGD and colonoscopy. Orders: Orders Vitamin B12 Today K21.9 - Gastro-esophageal reflux disease without esophagitis FOLATES,SERUM (FOLIC ACID) Today K21.9 - Gastro-esophageal reflux disease without esophagitis Gastrin, Serum Today K21.9 - Gastro-esophageal reflux disease without esophagitis Thyroid Stim Hormone (TSH) Today E03.9 - Hypothyroidism, unspecified, K21.9 - Gastro-esophageal reflux disease without esophagitis Anti-Parietal Cell AB, QN Today K21.9 - Gastro-esophageal reflux disease without esophagitis Intrinsic Factor Ab Today K21.9 - Gastro-esophageal reflux disease without esophagitis Celiac AB,Comprehensive Today K21.9 - Gastro-esophageal reflux disease without esophagitis Erythrocyte Sed Rate Today K21.9 - Gastro-esophageal reflux disease without esophagitis CRP Today K21.9 - Gastro-esophageal reflux disease without esophagitis Gastric Emptying Study Today K21.9 - Gastro-esophageal reflux disease without esophagitis DI + Protein Elect, Serum Today K21.9 - Gastro-esophageal reflux disease without esophagitis LDH Today K21.9 - Gastro-esophageal reflux disease without esophagitis
--- NOTE | 2025-02-12 09:53 | PCM.PRE.AN2 ---
ASA Classification* ASA Classification ASA Classification: 2 Assessment & Plan Anesthesia* Anesthesia Assessment Anesthesia Assessment: Discussed sedation and/or anesthesia options, risks, benefits, and alternatives with patient/parents/legal guardian/POA. Questions invited. The patient/parents/legal guardian/POA seems to understand and agrees to proceed with anesthesia plan. Reviewed the physical assessment, medical history, allergy history and patient home medications list prior to surgery/procedure/anesthetic and documented any changes. Performed airway and anesthesia risk assessments. Anesthesia Type Anesthesia Type: MAC History Source History Obtained from:: Patient Anesthesia Focused Assessment* Temperature: 96.9 F Pulse Rate: 63 Blood Pressure: 151/81 Respiratory Rate: 16 Pulse Ox: 99 Oxygen Delivery Method: Room Air Airway Assessment Mouth opens: >3 cm Mallampati Score: II Teeth Condition: Intact Neck Range of motion (ROM): Full ROM Labs Anesthesia Preop lab: CBC WBC 3.4 K/mm3 (4.4-11.0) L 12/26/24 08:30 12/26/24 RBC 3.73 M/mm3 (4.2-5.4) L 12/26/24 08:30 12/26/24 Hgb 13.2 g/dL (12.0-15.0) 12/26/24 08:30 12/26/24 Hct 38.7 % (37-47) 12/26/24 08:30 12/26/24 Plt Count 198 K/mm3 (150-450) 12/26/24 08:30 12/26/24 CHEMISTRY Potassium 4.3 mmol/L (3.3-5.1) 12/26/24 08:30 12/26/24 Sodium 141 mmol/L (133-145) 12/26/24 08:30 12/26/24 BUN 18 mg/dL (4-19) 12/26/24 08:30 12/26/24 Creatinine 0.80 mg/dL (0.70-1.20) 12/26/24 08:30 12/26/24 Glucose 110 mg/dL (70-99) H 12/26/24 08:30 12/26/24 TSH 2.340 uIU/mL (0.300-4.200) 11/27/24 09:42 11/27/24 COAG Pre-Assessment Diagnosis/Proposed Procedure Planned Operative Procedure(s): EGD, COLONOSCOPY Anesthesia History Anesthesia History - traffic incident management manager: Anesthesia History - traffic incident management manager Hx Hospitalization No 02/08/25 11:46 Any Problems With Anesthesia Yes: DIFFICULT TO WAKE 02/08/25 11:46 Cholinesterase deficiency No 02/08/25 11:46 You/Your Family Experience No 02/08/25 11:46 fever (hyperthermia) with Relationship Recent Exposure to Contagious No 02/12/25 09:26 Disease Does patient have nerve No 02/08/25 11:46 stimulator Patient instructed to have device shut off --Does patient have Pacemaker No 02/12/25 09:26 or ICD? When Was Last Pacemaker Check QUESTION #4 FULL TEXT: You/Your Family Experience fever (hyperthermia) with Anesthesia Last Oral Intake Last Oral intake: Last Oral Intake NPO since 05:00 02/12/25 09:26 Meds taken in AM with sips of No 02/12/25 09:26 water? Meds patient instructed to take am of surgery PONV PONV - traffic incident management manager: PONV - traffic incident management manager Female Yes 02/08/25 11:46 HX of Motion Sickness No 02/08/25 11:46 HX of N/V After Surgery No 02/08/25 11:46 Non-Smoker Yes 02/08/25 11:46 Duration of Surgery greater No 02/08/25 11:46 than 60 minutes Number of Risk Factors 2 02/08/25 11:46 PONV Score Moderate Risk 02/08/25 11:46 Height & Weight Height & Weight: Anesthesia: Height & Weight Height 5 ft 1 in 02/12/25 09:26 Weight: 86.7 kg 02/12/25 09:26 Body Mass Index (BMI) 36.1 02/12/25 09:26 Respiratory Assessment Respiratory Assessment - traffic incident management manager: Respiratory Tract Infection Hx - traffic incident management manager Hx Respiratory Tract Infection No 02/08/25 11:46 STOP Sleep Apnea STOP Sleep Apnea - traffic incident management manager: STOP Sleep Apnea - traffic incident management manager Hx Hypertension Yes: PER PT, CONTROLLED ON 02/08/25 11:46 MED Hx Sleep Apnea No 02/08/25 11:46 CPAP BIPAP Do you snore loudly (louder Yes 02/08/25 11:46 than talking or can be heard Do you often feel tired/ No 02/08/25 11:46 fatigued/ sleepy during daytime? Has anyone observed you stop No 02/08/25 11:46 breathing during sleep? STOP Results Positive 02/08/25 11:46 QUESTION #5 FULL TEXT : Do you snore loudly (louder than talking or can be heard through closed doors)? 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 Specify any problems Hx of Preganancy in last 3 No 02/08/25 11:46 Months Nurse Filling Out Transfusion MGRIFFITH 02/08/25 11:46 & Questions: Date: 02/08/25 02/08/25 11:46 Time: 11:48 02/08/25 11:46 Patient unable to answer at this time (ie. confused, unrespo /Reproduction History /Reproductive History - traffic incident management manager: /Reproductive Hx- traffic incident management manager Hx Now No 02/08/25 11:46 Gestational Age (in weeks): EDC: Hx Hx Para Hx Section SAB No 02/08/25 11:46 Active Medications Active Medications: Current Medications Generic Name Dose Route Start Last Admin Trade Name Freq PRN Reason Stop Dose Admin Lactated Ringer's 1,000 mls @ 15 mls/hr 02/12/25 09:15 02/12/25 09:25 IV 15 mls/hr .Q48H KIRIT Administration PFSH Medical History Wears glasses Rheumatoid arthritis TIA (transient ischemic attack) History of hiatal hernia Difficulty swallowing Non-smoker Shortness of breath on exertion Leg cramps History of edema GERD (gastroesophageal reflux disease) Osteopenia Osteoarthritis Hypertension Problems with hearing Migraines Cataracts, bilateral History of back problems Arthritis Seasonal allergies Home Medications ?Medication ?Instructions ?Recorded ?Last Taken ?Type Ibuprofen [Motrin] 800 mg PO TID PRN PRN Pain 05/26/16 Unknown History aspirin 81 mg tablet,delayed 81 mg PO MOWEFR 05/26/16 02/07/25 History release calcium carbonate (Oyster Shell 500 mg PO BID 05/26/16 02/11/25 History Calcium 500) cholecalciferol (vitamin D3) 25 2,000 unit PO BID 05/26/16 02/11/25 History mcg (1,000 unit) tablet (Vitamin D3) fexofenadine-pseudoephedrine ER 1 ea PO DAILY 05/26/16 02/11/25 History 180 mg-240 mg tablet,ext.release 24 hr (Carmelita-D 24 Hour) omega-3 fatty acids-fish oil 340 1 ea PO DAILY 05/26/16 02/06/25 History mg-1,000 mg capsule (Fish Oil) ramipril 5 mg capsule 5 mg PO DAILY 05/26/16 02/11/25 History vitamin B complex 1 ea PO DAILY 05/26/16 02/11/25 History ascorbic acid (vitamin C) 1,000 mg 1 g PO QDAY 11/21/24 02/11/25 History capsule methotrexate sodium 2.5 mg tablet 20 mg PO SA 11/21/24 02/03/25 History pantoprazole 40 mg tablet,delayed 40 mg PO QDAY 11/21/24 02/11/25 History release folic acid 1 mg tablet 2 mg PO QDAY 11/27/24 02/11/25 History Allergy/AdvReac Type Severity Reaction Status Date / Time lansoprazole (From Prevacid) Allergy Hives Verified 02/12/25 09:25 latex Allergy Unknown Verified 02/12/25 09:25 alendronate sodium (From AdvReac Unknown heartburn Verified 02/12/25 09:25 Fosamax) adhesive AdvReac Unknown Verified 02/12/25 09:25 diphenhydramine (From AdvReac FEEL Verified 02/12/25 09:25 Benadryl) WEIRD Family History Mother Arthritis Brother Arthritis Colon cancer Diabetes Heart disease Surgical History History of esophagogastroduodenoscopy (EGD) History of colonoscopy History of tubal ligation H/O: hysterectomy History of appendectomy History of tonsillectomy Social History Smoking Status: Never smoker alcohol intake: never substance use type: does not use what type of physical activity do you participate in: none Review of Systems (Anesthesia) ROS Narrative System reviewed and no additional complaints, except as documented.
--- NOTE | 2025-02-12 10:15 | COLBX_PTH ---
PATIENT: IRVIN GODFREY LOC: EN U#:[id number] AGE/SX: 69/F ROOM: RE02/12/[address]: Dr. Darrin Lozoya DO : 1955 BED: DIS: 02/12/2025 SPEC #: [id number] RECD: 02/12/25 11:10 STATUS: MARLENI SAMANTHA #: [id number] BIBI: 02/12/25 10:[address]: Darrin Lozoya DEPT: SURGICAL PATHOLOGY RECD BY: Cortes Eric ENTERED: 02/12/25 11:44 SP TYPE: COLON BX OTHR DR: Dr. Kade Frances MD Tissues: A - Esophagus, NOS B - Gastric mucous membrane Procedures: Immunohistochemical Stains Surgery Specimen Level IV HEADER OPERATION: Colonoscopy (unable to complete procedure past sigmoid) PRE-OP DIAGNOSIS: History of colon polyps, abdominal pain, GERD TISSUE SUBMITTED: A- Distal esophagus biopsy, B- Gastric body biopsy MICROSCOPIC DIAGNOSIS A. Distal esophagus, biopsy: - Benign squamous mucosa. - Columnar mucosa negative for goblet cell metaplasia. B. Stomach, body, biopsy: - Oxyntic mucosa with features of reactive gastropathy. - IHC negative for H.pylori organisms. MICROSCOPIC DESCRIPTION Slides are reviewed. All matched controls reacted appropriately. These tests were developed and their performance characteristics determined by [facility]. They may not have been cleared or approved by the U.S. Food and Drug Administration. The FDA has determined that such clearance or approval is not necessary. The above immunohistochemical/dualISH markers are viewed by the Pathologist. GROSS DESCRIPTION A. Received in fixative is one container labeled with the patient's name and designated Distal esophagus biopsy. The specimen consists of two irregular fragments of light rajput soft tissue, each measuring 0.3 cm. The specimen is totally submitted in one cassette. B. Received in fixative is one container labeled with the patient's name and designated Gastric body biopsy. The specimen consists of multiple irregular fragments of light rajput soft tissue that in aggregate measure 0.1 to 0.5 cm. The specimen is totally submitted in one cassette. SU/ 02/12/2025 CPT:18400n7,96519
--- NOTE | 2025-02-12 11:06 | OP.CCLET_ITS ---
02/12/2025 Kade Frances MD Re : Upper GI endoscopy procedure for Elisha Fernandez Dear Dr. Frances This procedure was performed on Wednesday, February 12, 2025. My impressions and recommendations are as follows: Impressions : - Z-line irregular, 40 cm from the incisors. Biopsied. - Erythematous mucosa in the gastric body. Biopsied. - No gross lesions in the second portion of the duodenum. Recommendations : - Discharge patient to home. - Resume previous diet. - Continue present medications. - Await pathology results. My findings are described in the full procedure note, which is enclosed. If I can be of further assistance, please feel free to contact me at . Sincerely, Darrin Lozoya, 02/12/2025 11:05:56 AM This report has been signed electronically.
--- NOTE | 2025-02-12 11:06 | OP.EGD_ITS ---
Patient Name: Elisha Fernandez Procedure Date: 02/12/2025 10:04 AM Date of : 1955 Age: 69 Procedure: Upper GI endoscopy Indications: Functional Dyspepsia, Heartburn Providers: Darrin Lozoya DO Referring MD: Kade Frances MD Medicines: Monitored Anesthesia Care Patient Profile: This is a 69 year old female. Refer to note in patient chart for documentation of history and physical. Patient has symptoms of acute left lower quadrant abdominal pain, chronic epigastric abdominal pain and chronic heartburn. Complications: No immediate complications. Procedure: Pre-Anesthesia Assessment: - Prior to the procedure, a History and Physical was performed, and patient medications and allergies were reviewed. The patient is competent. The risks and benefits of the procedure and the sedation options and risks were discussed with the patient. All questions were answered and informed consent was obtained. Patient identification and proposed procedure were verified. Mental Status Examination: alert and oriented. Airway Examination: normal oropharyngeal airway and neck mobility. Respiratory Examination: clear to auscultation. CV Examination: normal. Prophylactic Antibiotics: The patient does not require prophylactic antibiotics. Prior Anticoagulants: The patient has taken no anticoagulant or antiplatelet agents except for NSAID medication. ASA Grade Assessment: II - A patient with mild systemic disease. After reviewing the risks and benefits, the patient was deemed in satisfactory condition to undergo the procedure. The anesthesia plan was to use monitored anesthesia care (MAC). Immediately prior to administration of medications, the patient was re-assessed for adequacy to receive sedatives. The heart rate, respiratory rate, oxygen saturations, blood pressure, adequacy of pulmonary ventilation, and response to care were monitored throughout the procedure. The physical status of the patient was re-assessed after the procedure. After obtaining informed consent, the endoscope was passed under direct vision. Throughout the procedure, the patient's blood pressure, pulse, and oxygen saturations were monitored continuously. The Colonoscope was introduced through the mouth, and advanced to the second part of duodenum. The upper GI endoscopy was accomplished without difficulty. The patient tolerated the procedure well. Scope In: 10:16:41 AM Scope Out: 10:21:15 AM Total Procedure Duration Time 0 hours 4 minutes 34 seconds Findings: The Z-line was irregular and was found 40 cm from the incisors. Biopsies were taken with a cold forceps for histology. Verification of patient identification for the specimen was done. Estimated blood loss was minimal. Patchy mildly erythematous mucosa without bleeding was found in the gastric body. Biopsies were taken with a cold forceps for histology. Verification of patient identification for the specimen was done. Estimated blood loss was minimal. Biopsies were taken with a cold forceps for Helicobacter pylori testing. Verification of patient identification for the specimen was done. Estimated blood loss was minimal. No gross lesions were noted in the second portion of the duodenum. Impression: - Z-line irregular, 40 cm from the incisors. Biopsied. - Erythematous mucosa in the gastric body. Biopsied. - No gross lesions in the second portion of the duodenum. Recommendation: - Discharge patient to home. - Resume previous diet. - Continue present medications. - Await pathology results. Procedure Code(s): --- Professional --- 15271, Esophagogastroduodenoscopy, flexible, transoral; with biopsy, single or multiple CPT copyright 2021 [employer]. All rights reserved. The codes documented in this report are preliminary and upon embossing press operator apprentice review may be revised to meet current compliance requirements. Darrin Lozoya DO 02/12/2025 11:05:56 AM This report has been signed electronically. Number of Addenda: 0 Note Initiated On: 02/12/2025 10:04 AM
--- NOTE | 2025-02-12 11:08 | PCM.POST.ANE ---
Anesthesia: Postop Eval I Current Vital Signs Temperature: 97.2 F Pulse Rate: 74 Blood Pressure: 112/55 Respiratory Rate: 16 Pulse Ox: 99 Oxygen Delivery Method: Room Air Assessment Airway patent: Yes Spontaneous unlabored respirations: Yes Mental status: Awake and Calm nausea: No Vomiting: No Anesthesia Complication: No Fluid Hydration Crystalloid volume administer (ml): 700 Total IV fluid infused: 700 Progress Note Anesthesia document: Postop Eval 1 completed: Yes
--- NOTE | 2025-02-12 11:11 | OP.CCLET_ITS ---
02/12/2025 Kade Frances MD Re : Colonoscopy procedure for Elisha Fernandez Dear Dr. Frances This procedure was performed on Wednesday, February 12, 2025. My impressions and recommendations are as follows: Impressions : - Stricture in the sigmoid colon. - No specimens collected. Recommendations : - Discharge patient to home. - Resume previous diet. - Continue present medications. - CT scan of the abdomen pelvis with oral and IV contrast - Repeat colonoscopy to evaluate the response to therapy. My findings are described in the full procedure note, which is enclosed. If I can be of further assistance, please feel free to contact me at . Sincerely, Darrin Lozoya, 02/12/2025 11:10:50 AM This report has been signed electronically.
--- NOTE | 2025-02-12 11:11 | OP.COLON_ITS ---
Patient Name: Elisha Fernandez Procedure Date: 02/12/2025 10:21 AM Date of : 1955 Age: 69 Procedure: Colonoscopy Indications: High risk colon cancer surveillance: Personal history of colonic polyps Providers: Darrin Lozoya DO Referring MD: Kade Frances MD Medicines: Monitored Anesthesia Care Patient Profile: This is a 69 year old female. Refer to note in patient chart for documentation of history and physical. Patient has symptoms of acute left lower quadrant abdominal pain, chronic epigastric abdominal pain and chronic heartburn. Last Colonoscopy: 3 years ago. Complications: No immediate complications. Procedure: Pre-Anesthesia Assessment: - Prior to the procedure, a History and Physical was performed, and patient medications and allergies were reviewed. The patient is competent. The risks and benefits of the procedure and the sedation options and risks were discussed with the patient. All questions were answered and informed consent was obtained. Patient identification and proposed procedure were verified. Mental Status Examination: alert and oriented. Airway Examination: normal oropharyngeal airway and neck mobility. Respiratory Examination: clear to auscultation. CV Examination: normal. Prophylactic Antibiotics: The patient does not require prophylactic antibiotics. Prior Anticoagulants: The patient has taken no anticoagulant or antiplatelet agents except for NSAID medication. ASA Grade Assessment: II - A patient with mild systemic disease. After reviewing the risks and benefits, the patient was deemed in satisfactory condition to undergo the procedure. The anesthesia plan was to use monitored anesthesia care (MAC). Immediately prior to administration of medications, the patient was re-assessed for adequacy to receive sedatives. The heart rate, respiratory rate, oxygen saturations, blood pressure, adequacy of pulmonary ventilation, and response to care were monitored throughout the procedure. The physical status of the patient was re-assessed after the procedure. After I obtained informed consent, the scope was passed under direct vision. Throughout the procedure, the patient's blood pressure, pulse, and oxygen saturations were monitored continuously. The Colonoscope was introduced through the anus and advanced to the sigmoid colon. The Endoscope was introduced through the and advanced to. The colonoscopy was extremely difficult due to restricted mobility of the colon. Successful completion of the procedure was aided by changing endoscopes. The patient tolerated the procedure well. The quality of the bowel preparation was good. Sigmoid colon were photographed. Scope In: 10:22:54 AM Scope Out: 10:56:19 AM Total Procedure Duration Time 0 hours 33 minutes 25 seconds Findings: The perianal and digital rectal examinations were normal. A benign-appearing, intrinsic severe stenosis measuring 6 cm (in length) was found in the sigmoid colon and was non-traversed. Impression: - Stricture in the sigmoid colon. - No specimens collected. Recommendation: - Discharge patient to home. - Resume previous diet. - Continue present medications. - CT scan of the abdomen pelvis with oral and IV contrast - Repeat colonoscopy to evaluate the response to therapy. Procedure Code(s): --- Professional --- 35014, Colonoscopy, flexible; diagnostic, including collection of specimen(s) by brushing or washing, when performed (separate procedure) CPT copyright 2021 [employer]. All rights reserved. The codes documented in this report are preliminary and upon cpc coder review may be revised to meet current compliance requirements. Darrin Lozoya DO 02/12/2025 11:10:50 AM This report has been signed electronically. Number of Addenda: 0 Note Initiated On: 02/12/2025 10:21 AM
--- NOTE | 2025-02-12 11:49 | PCM.POSTANE2 ---
Anesthesia Postop Eval I Sum Postop Eval Completion status Anesthesia document: Postop Eval 1 completed: Yes Anesthesia Postop Eval I Summary Anesthesia Postop Eval I Summary: Anesthesia Postop Eval I: Assessment Summary Airway patent Yes 02/12/25 11:09 [email or web address] Spontaneous unlabored Yes 02/12/25 11:09 [email or web address] respirations Mental status Awake,Calm 02/12/25 11:09 [email or web address] nausea No 02/12/25 11:09 [email or web address] Vomiting No 02/12/25 11:09 [email or web address] Anesthesia Postop Eval I: Fluid Summary Crystalloid volume administer 700 02/12/25 11:09 [email or web address] (ml) Colloids volume administered ( ml) Blood Product volume administered (ml) Total IV fluid infused 700 02/12/25 11:09 [email or web address] Anesthesia Postop Eval I: Summary Notes Anesthesia Complication No 02/12/25 11:09 [email or web address] Anesthesia Complication Comment: Post-operative progress note Anesthesia: Postop Eval II Evaluation Mental status: Awake and Calm Pain Level: 0 nausea: No Vomiting: No Complications Anesthesia Complication: No
== END 2025-02-12 12:17 | disposition home or self-care (01) ==
LOC: EN 08:47 → AC 08:48
PROVIDERS: PCP Family Medicine; Referring Provider Family Medicine; Visit Provider Internal Medicine Gastroenterology
PROC: 0DJD8ZZ Inspection of Lower Intestinal Tract, Via Natural or Artificial Opening Endoscopic (ICD-10-PCS; CPT 45378; principal; 2025-02-12 10:10)
DX: K56.609 Unspecified intestinal obstruction, unspecified as to partial versus complete obstruction (principal); K21.9 Gastro-esophageal reflux disease without esophagitis; R10.9 Unspecified abdominal pain; Z86.0100 Personal history of colon polyps, unspecified; Z79.899 Other long term (current) drug therapy; E03.9 Hypothyroidism, unspecified; I10 Essential (primary) hypertension; Z79.82 Long term (current) use of aspirin
CPT/HCPCS: 43239; 45378; 88305; 88342; J2405

== ENCOUNTER → 2025-03-27 | Outpatient (CLI) | payer MEDICARE, SELFPAY ==
[2025-03-27 15:56] LABS: AST(SGOT) 29 U/L (<=31); Alanine Aminotransfer ALT/SGPT 13 U/L (<=34); Albumin, Serum 4.5 g/dL (3.4-4.8); Alkaline Phosphatase 97 U/L (35-104); Anion Gap 13 (5-15); BUN 19 mg/dL (4-19); BUN/Creat Ratio 23.9 RATIO (10-20); Calcium,Total 9.5 mg/dL (7.6-11.0); Carbon Dioxide 24.9 mmol/L (21.0-32.0); Chloride 102 mmol/L (98-108); Globulin 2.5 g/dL (2.2-4.2); Glucose 164 mg/dL (70-99); Potassium 3.9 mmol/L (3.3-5.1)
[2025-03-27 16:15] LABS: Hematocrit 41.4 % (37-47); Hemoglobin 13.9 g/dL (12.0-15.0); Immature Granulocytes Count 0.020 X10^3/uL (0.0-0.0); Mean Corp Hgb Conc 33.6 g/dL (32-36); Mean Corpuscular Volume 104.3 fL (81-99); Mean Platelet Vol. 11.2 fl (6.2-12.0); NRBC Flagged by Analyzer 0 % (0-5); Platelet Count 206 K/mm3 (150-450); RBC Distribution Width CV 12.6 % (11.6-14.6); RBC Distribution Width SD 48.4 fl (35.1-43.9); Red Blood Count 3.97 M/mm3 (4.2-5.4); White Blood Count 4.6 K/mm3 (4.4-11.0)
== END | disposition home or self-care (01) ==
LOC: MTLAB 12:41
PROVIDERS: PCP Family Medicine; Referring Provider Internal Medicine Rheumatology; Visit Provider Internal Medicine Rheumatology
DX: M06.09 Rheumatoid arthritis without rheumatoid factor, multiple sites (principal); Z79.899 Other long term (current) drug therapy; R76.8 Other specified abnormal immunological findings in serum; M79.7 Fibromyalgia
CPT/HCPCS: 36415; 80053; 85025

== ENCOUNTER → 2025-04-02 | Outpatient (CLI) | payer MEDICARE, SELFPAY ==
--- NOTE | 2025-04-02 15:05 | CT_ITS ---
PROCEDURE: ABDOMEN/PELVIS WITH CONTRAST 04/02/2025 REASON FOR EXAM: COLON STENOSIS SEEN W/COLONOSCOPY Intermittent left lower quadrant pain. TECHNIQUE: ABDOMEN/PELVIS WITH CONTRAST Coronal and Sagittal reconstruction series were provided. CONTRAST: Isovue-300 VOLUME: 100 mL One or more dose reduction techniques were used (e.g., Automated exposure control, adjustment of the mA and/or kV according to patient size, use of iterative reconstruction technique. RADIATION DOSE SUMMARY: CTDlvol: 16.1 mGy DLP: 1220.77 mGycm COMPARISON: None FINDINGS: Lung bases: The lung bases are clear. No significant coronary artery calcification seen. Liver: Diffuse fatty infiltration. Gallbladder: Solitary gallstone measuring 1.7 cm. Spleen: Normal size. Pancreas: Normal size without evidence of mass surrounding inflammation or ductal dilation. Adrenals: Unremarkable. Kidneys: Normal renal sizes. No hydronephrosis. Bladder: Mildly distended urinary bladder. Reproductive Organs: Prior hysterectomy. Adnexal regions are unremarkable. Bowel: No evidence of bowel obstruction. Sigmoid diverticulosis. Appendix: The appendix is not identified. There is no inflammatory process identified in the right lower quadrant to suggest appendicitis. Lymph nodes: Unremarkable. Vasculature: Mild diffuse atherosclerotic calcifications are noted. Peritoneum / Retroperitoneum: Left-sided spigelian hernia containing fat and nondilated small bowel loops. Bones: Degenerative changes of the spine. Grade 1 anterior listhesis of L4 on L5. CT/Abdomen/Pelvis WITH Contrast IMPRESSION: Solitary gallstone. Left-sided spigelian hernia containing fat and nondilated small bowel loops. Sigmoid diverticulosis. Reading Location: [place] [id number]
== END | disposition home or self-care (01) ==
LOC: CT 14:52
PROVIDERS: PCP Family Medicine
DX: K56.699 Other intestinal obstruction unspecified as to partial versus complete obstruction (principal); R10.9 Unspecified abdominal pain
CPT/HCPCS: 74177; Q9967

== ENCOUNTER → 2025-05-03 | Outpatient (CLI) | payer MEDICARE, SELFPAY | END | disposition home or self-care (01) | LOC: LABSPEC 14:31 | PROVIDERS: PCP Family Medicine; Referring Provider Surgery; Visit Provider Surgery | DX: K43.9 Ventral hernia without obstruction or gangrene (principal) | CPT/HCPCS: 87077; 87081 ==

== ENCOUNTER 2025-05-28 06:02 | Day surgery (SDC) | payer MEDICARE, SELFPAY ==
--- NOTE | 2025-05-15 08:00 | EKG12_ITS ---
Test Reason : PREOP Blood Pressure : */* mmHG Vent. Rate : 59 BPM Atrial Rate : 59 BPM P-R Int : 166 ms QRS Dur : 86 ms QT Int : 414 ms P-R-T Axes : 59 3 23 degrees QTcB Int : 409 ms Sinus bradycardia Otherwise normal ECG When compared with ECG of 12-Sep-2012 14:24, No significant change was found Confirmed by LASHAE PEARSON, RONN ([id number]), supervising film or videotape editor SANDEEP PHIPPS ([id number]) on 05/15/2025 1:50:53 PM Referred By: Tavon Beauchamp Confirmed By: RONN BHARDWAJ MD
[2025-05-28] VITALS (14 sets, daily range): BP systolic 118–176; BP diastolic 64–87; PULSE 56–81; RESP 16–20; TEMP 36.1–36.7; O2SAT 93–100; BMI 31.0
--- OUTSIDE RECORDS SUMMARY | 2025-05-28 06:07 | XMS RPT_ITS | CCD ---
Author Organization [facility] CliniSyde Care Team Providers Care Fitting Room Supervisor Name Role Phone Kade Fry MD Primary Care Provider Kade Fry MD Primary Care Provider Vinnie OCAMPO.ROSHAN, Addie Unavailable Ena Aguiar PA-C Unavailable Ang PEARSON, Dr. Braun Primary Care Provider [phone] Nabil PEARSON, Dr. Arroyo Attending Provider Nabil PEARSON, Dr. Arroyo Referring Provider Joey PEARSON, Dr. Aranda Attending Provider Joey PEARSON, Dr. Aranda Referring Provider Dr. Manoj Gamino MD Other Provider Eugenia PEARSON, Dr. Doherty Attending Provider Ang PEARSON, Kade Edwards Primary Care Provider Ang PEARSON, Dr. Braun Referring Provider Dr. Darrin Lozoya DO Attending Provider Dr. Darrin Lozoya DO Referring Provider Ang PEARSON, Dr. Braun Primary Care Provider Nabil PEARSON, Dr. Arroyo Attending Provider Nabil PEARSON, Dr. Arroyo Referring Provider Devora NGUYEN, Dr. Clifford Other Provider [phone] Vinnie OCAMPO.ROSHAN, Addie Unavailable Ena Aguiar PA-C Unavailable Zulma Haile Attending Provider Ang PEARSON, Dr. Braun Primary Care Provider Devora NGUYEN, Dr. Clifford Attending Provider Devora NGUYEN, Dr. Clifford Referring Provider Ang PEARSON, Dr. Braun Referring Provider Sammy TRAFFIC LIEUTENANT-C, Zulma Referring Provider [phone] Ang PEARSON, Dr. Braun Primary Care Provider [phone] Devora NGUYEN, Dr. Clifford Attending Provider Nabil PEARSON, Dr. Arroyo Attending Provider Nabil PEARSON, Dr. Arroyo Referring Provider Quynh PEARSON, Dr. Montes De Oca Attending Provider Quynh PEARSON, Dr. Montes De Oca Referring Provider KADE FRY Attending Unavailable ANG, KADE A Primary Care Unavailable ENA AGUIAR Referring Unavailable ANG, KADE A Referring Unavailable ANG, KADE A Primary Care Unavailable MANOJ GAMINO Attending Unavailable ANG, KADE A Referring Unavailable CHETAN BHAGAT Attending Unavailable ANG, KADE A Primary Care Unavailable ANG, KADE A Primary Care Unavailable CHETAN BHAGAT Referring Unavailable TESTCHETAN BELL Attending Unavailable ANG, KADE A Primary Care Unavailable ANG, KADE A Referring Unavailable ANG, KADE A Primary Care Unavailable CHETAN BHAGAT Attending Unavailable ANG, KADE A Primary Care Unavailable MANOJ GAMINO Referring Unavailable MANOJ GAMINO Attending Unavailable ANG, KADE A Referring Unavailable ANG, KADE A Primary Care Unavailable ANG, KADE A Referring Unavailable ANG, KADE A Primary Care Unavailable ANG, KADE A Referring Unavailable ANG, KADE A Primary Care Unavailable Manoj Gamino Referring Unavailable Manoj Gamino Attending Unavailable Ang, Kade Primary Care Unavailable Dina Ferrer Attending Unavailable Dina Ferrer Referring Unavailable Ang, Kade Primary Care Unavailable Agn, Kade Primary Care Unavailable Ang, Kade Referring Unavailable Zulma Christianson Attending Unavailable AngKade apodaca Referring Unavailable Darrin Lozoya Attending Unavailable Ang, Kade Primary Care Unavailable Tavon Beauchamp Attending Unavailable Ang, Kade Primary Care Unavailable Ang, Kade Referring Unavailable Ang, Kade Primary Care Unavailable Ang, Kade Referring Unavailable Sammy, Zulma Attending Unavailable Joey, Manoj Referring Unavailable Manoj Gamino Consulting Unavailable Ang, Kade Primary Care Unavailable Chas Bello Attending Unavailable Ang, Kade Referring Unavailable Friend, Darrin Consulting Unavailable Friend, Darrin Attending Unavailable Ang, Kade Primary Care Unavailable Vellanki, Dina Referring Unavailable Vellanki, Dina Attending Unavailable Ang, Kade Primary Care Unavailable BorTavon carreno Attending Unavailable Ang, Kade Primary Care Unavailable Borwai, Tavon Referring Unavailable Friend, Darrin Referring Unavailable Friend, Darrin Attending Unavailable Ang, Kade Primary Care Unavailable Friend, Darrin Referring Unavailable Friend, Darrin Attending Unavailable Ang, Kade Primary Care Unavailable Ang, Kade Primary Care Unavailable BorTavon carreno Referring Unavailable Tavon Beauchamp Attending Unavailable Ang, Kade Primary Care Unavailable Vellanki, Dina Referring Unavailable Vellanki, Dina Attending Unavailable Ang, Kade Referring Unavailable Friend, Darrin Attending Unavailable Ang, Kade Primary Care Unavailable Ang, Kade Primary Care Unavailable Vellanki, Dina Attending Unavailable Vellanki, Dina Referring Unavailable Ang, Kade Primary Care Unavailable Zulma Christianson Referring Unavailable Zulma Christianson Attending Unavailable Vellanki, Dina Attending Unavailable Vellanki, Dian Referring Unavailable Ang, Kade Primary Care Unavailable Ang PEARSON, Dr. Braun Primary Care Physician Dr. Darrin Lozoya DO Attending Physician Dr. Darrin Lozoya DO Nurse Practitioner Sammy TRAFFIC LIEUTENANT-CZulma Attending Physician Dr. Dina Ferrer MD Attending Physician Dr. Tavon Beauchamp MD Attending Physician Jesse PEARSON, Dr. Bauer Attending Physician Dr. El Gomez MD Referring Provider Unavailable Unavailable Unavailable Allergies Allergy Classification Reported Allergen(s) Allergy Type Date of Onset Reaction(s) Facility Alendronate (1 source) Alendronate Drug Allergy 12-13-19 24 Other: See Comments [facility] diphenhydrAMINE (1 source) diphenhydrAMINE Drug Allergy 01-02-20 Other: See Comments [facility] Work Phone: Latex (1 source) Latex Substance Allergy 01-15-20 10 Unknown [facility] Proton Pump Inhibitors (1 source) lansoprazole Drug Allergy 01-02-20 06 [facility] (20 sources) Adhesive agent; Translations: [ADHESIVE] Propensity to adverse reactions 03-18-20 16 Unknown [facility] (20 sources) diphenhydrAMINE Drug Allergy 05-26-20 16 [facility] (20 sources) lansoprazole; Translations: [LANSOPRAZOLE] Drug Allergy 01-02-20 06 [facility] Work Phone: (20 sources) Latex; Translations: [LATEX] Allergy to substance 01-15-20 10 Unknown [facility] Work Phone: (20 sources) diphenhydrAMINE; Translations: [DIPHENHYDRAMINE HCL] Drug Allergy 01-02-20 06 Other: See Comments [facility] Work Phone: (14 sources) environmental [Other] Propensity to adverse reactions 02-07-20 10 Unknown [facility] Work Phone: [phone] (20 sources) Alendronate; Translations: [ALENDRONATE] Drug Allergy 12-13-19 24 Other: See Comments [facility] (1 source) Alendronate Drug Allergy 05-14-20 25 [facility] (1 source) diphenhydrAMINE Drug Allergy 05-14-20 25 [facility] (1 source) lansoprazole Drug Allergy 05-14-20 25 [facility] (1 source) Latex Drug allergy (disorder) 05-14-20 25 [facility] Repository Medications Current Medications Medication Drug Class(es) Dates Sig (Normalized) Sig (Original) ascorbic acid 1000 mg oral capsule (20 sources) Vitamin C Start: 11-21-2024 take 1 g by mouth once daily Ascorbic Acid (Vitamin C) 1,000 mg capsule Active 1 g PO daily November 21, 2024 12:00am Complies with drug therapy Start: 09-27-2018 take 1 tablet by felipe th once daily Ascorbic Acid 1,000 mg tablet Take 1,000 mg by mouth once daily. 09/27/2018 Active Comment on above: Take 1,000 mg by felipe th once daily. aspirin 81 mg delayed release oral tablet (20 sources) Platelet Aggregation Inhibitor, Nonsteroidal Anti-inflammatory Drug Start: 01-10-2008 Aspirin 81 MG tablet Active 81 mg PO MOWEFR May 26, 2016 12:00am Complies with drug therapy Comment on above: one tablet 3 times a week budesonide 0.032 mg/actuat metered dose nasal spray (20 sources) Corticosteroid Start: 05-14-2025 Budesonide 32 mcg/actuation spray,non-aerosol Active 2 NMA INTRANASAL AT BEDTIME May 14, 2025 12:00am administer into each nostril Complies with drug therapy Start: 09-21-2024 budesonide (RH INOCORT ALLERGY) 32 mcg/actuation nasal spray Use 1 [place] in each nostril as needed. 09/21/2024 Active Start: 08-24-2017 End: 09-21-2024 take 1 spray(s) nasal route once daily budesonide (RHINOCORT ALLERGY) 32 mcg/actuation nasal spray Indications: Seasonal allergic rhinitis due to other allergic trigger, unspecified chronicity Use 1 [place] in each nostril once daily. 3 Bottle 3 08/24/2017 09/21/2024 Discontinued Comment on above: Use 1 [place] in each nostril once daily. calcium carbonate 1250 mg oral tablet (20 sources) Start: 6 Calcium Carbonate (Os-[place] 500) 500 MG tablet Active 500 mg PO TWICE A DAY May 26, 2016 12:00am Complies with drug therapy calcium carbonate 600 mg / cholecalciferol 125 unt oral tablet (20 sources) Vitamin D Start: 0 Calcium-Cholecalci ferol, D3, (CALCIUM 600 + D) 600-125 mg-unit tab Take one twice a day. 08/31/2019 Active Comment on above: Take one twice a day . cholecalciferol 0.025 mg oral capsule (20 sources) Vitamin D Start: 0 End: 5 take 2 capsules by mouth once daily Cholecalciferol, Vitamin D3, (VITAMIN D) 25 mcg (1,000 unit) cap Take 2 capsules by mouth once daily. 50 mcg daily 09/21/2024 Active Start: 05-26-2016 take 2 tablets by mo [facility] twice daily Cholecalciferol (Vitamin D3) (Vitamin D3) 1,000 UNIT tablet Active 2000 U PO TWICE A DAY May 26, 2016 12:00am Complies with drug therapy Start: 05-26-2016 Cholecalcifero l (Vitamin D3) (Vitamin D) 1,000 UNIT tablet Active 2000 U PO DAILY May 26, 2016 12:00am Comment on above: Take 2 capsules by m [facility] once daily. clobetasol propionate 0.0005 mg/mg topical ointment (20 sources) Corticosteroid Start: 09-21-2022 End: 09-21-2023 clobetasol (TEMOVATE) 0.05 % ointment Apply to affected area two times a day. 60 g 5 09/21/2023 Active End: 09-21-2022 clobetasol (TEMOVATE) 0.05 % ointment Apply to affected area twice daily. 0 09/21/2022 Discontinued Comment on above: Apply to affected ar ea twice daily. Apply to affected ar ea two times a day. dicyclomine hydrochloride 10 mg oral capsule (6 sources) Anticholinergic Start: 025 take 1 capsule by mouth twice daily as needed for pain Dicyclomine 10 mg capsule Active 10 mg PO TWICE A DAY as needed for abdominal pain 14 0 March 09, 2025 12:00am Complies with drug therapy docosahexaenoic acid/epa (FISH OIL ORAL) (20 sources) take 1000 mg by mouth once daily docosahexaenoic acid/epa (FISH OIL ORAL) Take 1,000 mg by mouth once daily. Active take 1000 mg by mouth once daily docosahexaenoic acid/epa (FISH OIL ORAL) Take 1,000 mg by mouth once daily. 0 Active Comment on above: [facility] do[facility]ine monohydrate 100 mg oral capsule (1 source) Tetracycline-class Drug Start: 06-18-20 End: 06-18-20 take 2 capsules by mouth once doxycycline monohydrate (MONODOX) 100 mg capsule Indications: Tick bite of right thigh, initial encounter Take 2 capsules by mouth one time only for 1 dose. 2 capsule 0 06/18/2022 06/18/2022 Active Comment on above: Take 2 capsules by m outh one time only for 1 dose. fexofenadine hydrochloride 180 mg oral tablet (20 sources) Histamine-1 Receptor Antagonist Start: 12-17-19 10 fexofenadine hcl(CARMELITA 180 MG TAB) Indications: Allergic rhinitis, cause unspecified Take one(1) tablet daily. 90 3 12/16/2009 Active Comment on above: Take one(1) tablet d aily. 24 hr fexofenadine hydrochloride 180 mg / pseudoephedrine hydrochloride 240 mg extended release oral tablet (14 sources) alpha-Adrenergic Agonist, Histamine-1 Receptor Antagonist Start: 05-26-20 16 take 1 tablet by mouth every twenty-four hours Fexofenadine-Pseudoe phedrine (Carmelita-D 24 Hour Tablet) 1 EACH tablet extended release 24 hr Active 1 NMA PO DAILY May 26, 2016 12:00am Complies with drug therapy Start: 05-26-2016 Fexofenadine-P seudoephedrine (Carmelita-D 24 Hour Tablet) 1 EACH Tab.Er.24h Active 1 EACH PO DAILY May 25, 2016 11:00pm Fexofenadine-Pseudoephedrine (Carmelita-D 24 Hour Tablet) 1 EACH tablet extended release 24 hr (6 sources) Start: 05-26-2016 take 1 tablet by mouth every twenty-four hours Fexofenadine-Pseudoephedrine (Carmelita-D 24 Hour Tablet) 1 EACH tablet extended release 24 hr Active 1 NMA PO DAILY May 26, 2016 12:00am folic acid 1 mg oral tablet (20 sources) Start: 10-28-2021 take 2 tablets by mouth once daily Folic Acid 1 mg tablet Active 2 mg PO daily November 27, 2024 12:00am Complies with drug therapy Comment on above: Take 2 mg by mouth o nce daily. hypromellose 0.003 mg/mg ophthalmic gel (20 sources) Artificial Tear, Hypromellose, (SYSTANE GEL) 0.3 % gel 1 Drop as needed (bedtime). Active Comment on above: 1 Drop as needed (be dtime). ibuprofen 800 mg oral tablet (20 sources) Nons tero idal Anti -inf esther ator y Drug Start: 12-19-2020 take 1 tablet by mouth every eight hours as needed ibuprofen (MOTRIN) 800 mg tablet Take 1 tablet by mouth every 8 hours as needed. FOR PAIN. 90 tablet 2 12/19/2020 Active Start: 05-26-2016 take 1 tablet by felipe three times daily as needed for pain Ibuprofen (Motrin) 800 MG tablet Active 800 mg PO 3 TIMES DAILY NEEDED as needed for Pain May 26, 2016 12:00am Complies with drug therapy Comment on above: Take 1 tablet by felipe every 8 hours as needed. FOR PAIN. methotrexate 2.5 mg oral tablet (20 sources) Folate Analog Metabolic Inhibitor Start: 11-21-2024 Methotrexate Sodium 2.5 mg tablet Active 20 mg PO SA November 21, 2024 12:00am Complies with drug therapy Start: 10-30-2021 take 1 tablet by mouth once me thotrexate 2.5 mg tablet Take 2.5 mg by mouth every Wednesday. Taking 8 tablets weekly 10/30/2021 Active Start: 10-30-2021 take 5 tablets by [facility] every week, then take 4 tablets by mouth every week methotrexate 2.5 mg tablet TAKE 5 TABLETS BY MOUTH ONCE A WEEK AFTER TAKING 4 TABLETS ONCE A WEEK FOR 2 WEEKS 10/30/2021 Active Comment on above: TAKE 5 TABLETS BY [facility] ONCE A WEEK AFTER TAKING 4 TABLETS ONCE A WEEK FOR 2 WEEKS Multivitamin With Folic Acid (Thera) 1 TABLET tablet (19 sources) Start: 05-26-2016 take 1 tablet by mouth once daily Multivitamin With Folic Acid (Thera) 1 TABLET tablet Active 1 TABLET PO DAILY May 26, 2016 10:57am Start: 05-26-2016 End: 11-21-2024 take 1 tablet by mouth once daily Multivitamin With Folic Acid (Thera) 1 TABLET tablet Discontinued 1 {tbl} PO DAILY May 26, 2016 12:00am November 21, 2024 3:31pm Start: 05-26-2016 take 1 tablet by felipe once daily Multivitamin With Folic Acid (Thera) 1 TABLET tablet Active 1 {tbl} PO DAILY May 26, 2016 12:00am Start: 05-26-2016 take 1 tablet by felipe once daily Multivitamin With Folic Acid (Thera) 1 TABLET tablet Active 1 TABLET PO DAILY May 25, 2016 11:00pm Start: 05-26-2016 take 1 tablet by felipe th once daily Multivitamin With Folic Acid (Thera) 1 TABLET tablet Active 1 TABLET PO DAILY May 26, 2016 12:00am multivitamins w-minerals/lut(CENTRUM SILVER TAB) (20 sources) Start: 01-10-2008 multivitamins w-minerals/lut(CENTRUM SILVER TAB) Take one(1) tablet daily. 0 01/10/2008 Active Comment on above: Take one(1) tablet d aily. Multivitamins,Therapeutic (Multivitamin) 1 TABLET Tablet (1 source) Start: 05-26-2016 take 1 tablet by mouth once daily Multivitamins,Therapeutic (Multivitamin) 1 TABLET Tablet Active 1 TABLET PO DAILY May 26, 2016 10:57am olopatadine 1 mg/ml ophthalmic solution (20 sources) Histamine-1 Receptor Inhibitor take 1 drop(s) into the eye(s) twice daily olopatadine (PATANOL) 0.1 % ophthalmic solution 1 Drop twice daily. pataday Active Comment on above: 1 Drop twice daily. pat [place]-3 Fatty Acids-Fish Oil (Fish Oil 1,000 Mg Capsule) 1 EACH capsule (12 sources) Start: 05-26-2016 [place]-3 Fatty Acids-Fish Oil (Fish Oil 1,000 Mg Capsule) 1 EACH capsule Active 3 EACH PO DAILY May 26, 2016 10:57am Start: 05-26-2016 [place]-3 Fatty Acids-Fish Oil (Fish Oil 1,000 Mg Capsule) 1 EACH capsule Active 3 NMA PO DAILY May 26, 2016 12:00am Start: 05-26-2016 [place]-3 Fatty Acids-Fish Oil (Fish Oil 1,000 Mg Capsule) 1 EACH capsule Active 3 EACH PO DAILY May 25, 2016 11:00pm Start: 05-26-2016 [place]-3 Fatty Acids-Fish Oil (Fish Oil 1,000 Mg Capsule) 1 EACH capsule Active 3 EACH PO DAILY May 26, 2016 12:00am [place]-3 Fatty Acids-Fish Oil (Fish Oil) 1 EACH capsule (7 sources) Start: 05-26-2016 [place]-3 Fatty Acids-Fish Oil (Fish Oil) 1 EACH capsule Active 1 NMA PO DAILY May 26, 2016 12:00am Complies with drug therapy Start: 05-26-2016 [place]-3 Fatty Acids-Fish Oil (Fish Oil) 1 EACH capsule Active 1 NMA PO DAILY May 26, 2016 12:00am [place]-3 Fatty Acids/Fish Oil (Fish Oil 1,000 Mg Capsule) 1 EACH Capsule (1 source) Start: 05-26-2016 [place]-3 Fatty Acids/Fish Oil (Fish Oil 1,000 Mg Capsule) 1 EACH Capsule Active 3 EACH PO DAILY May 26, 2016 10:57am pantoprazole 40 mg delayed release oral tablet (20 sources) Proton Pump Inhibitor Start: 05-07-2025 End: 05-14-2025 Pantoprazole 40 mg tablet,delayed release (DR/EC) Active 40 mg PO MOTUWETH May 14, 2025 12:00am GERD Complies with drug therapy Start: 09-19-2021 End: 03-09-2025 take 1 tablet by mouth once daily Pantoprazole 40 mg tablet,delayed release (DR/EC) Discontinued 40 mg PO daily November 21, 2024 12:00am March 09, 2025 9:11am Comment on above: Take 1 tablet by felipe th daily before breakfast. Take on empty stomach, 1/2 hr before meal. ramipril 5 mg oral capsule (20 sources) Angiotensin Converting Enzyme Inhibitor Start: 05-26-2016 End: 01-19-2026 take 1 capsule by mouth once daily Ramipril 5 MG capsule Active 5 mg PO DAILY May 26, 2016 12:00am Complies with drug therapy Comment on above: Take 1 capsule by mo [facility] once daily. sodium chloride-aloe vera (AYR SALINE) topical nasal gel (20 sources) sodium chloride-aloe vera (AYR SALINE) topical nasal gel by INTRANASAL route as needed. Active sodium chloride- aloe vera (AYR SALINE) topical nasal gel by INTRANASAL route as needed. 0 Active Comment on above: by INTRANASAL route as needed. Vitamin B Complex (20 sources) Start: 05-26-2016 Vitamin B Complex Active 1 EACH PO DAILY May 26, 2016 10:57am Start: 05-26-2016 Vitamin B Comp nick Active 1 EACH PO DAILY May 25, 2016 11:00pm Start: 05-26-2016 Vitamin B Comp nick Active 1 EACH PO DAILY May 26, 2016 12:00am Start: 03-21-2009 vitamin b comp nick(B COMPLEX CAP) Take one(1) tablet daily. 0 0 03/21/2009 Active Comment on above: Take one(1) tablet d aily. Vitamin B Complex 1 EACH capsule (10 sources) Start: 05-26-2016 Vitamin B Complex 1 EACH capsule Active 1 NMA PO DAILY May 26, 2016 12:00am Complies with drug therapy Start: 05-26-2016 Vitamin B Comp nick 1 EACH capsule Active 1 NMA PO DAILY May 26, 2016 12:00am vitamin E mixed/tocotrienol (VITAMIN E COMPLEX ORAL) (20 sources) take 1 capsule by mouth once daily vitamin E mixed/tocotrienol (VITAMIN E COMPLEX ORAL) Take 1 capsule by mouth once daily. Active take 1 capsule by mouth once melvin ly vitamin E mixed/tocotrienol (VITAMIN E COMPLEX ORAL) Take 1 capsule by mouth once daily. 0 Active Comment on above: Take 1 capsule by mo uth once daily. Zinc (20 sources) take 1 capsule by mouth once daily ZINC ORAL Take 1 capsule by mouth once daily. Active take 1 capsule by mouth once melvin ly ZINC ORAL Take 1 capsule by mouth once daily. 0 Active Comment on above: Take 1 capsule by mo uth once daily. zinc gluconate 50 mg oral tablet (1 source) Start: 05-14-2025 take 1 tablet by mouth once daily Zinc Gluconate 50 mg tablet Active 50 mg PO DAILY May 14, 2025 12:00am Complies with drug therapy Completed/Discontinued Medications Medication Drug Class(es) Dates Sig (Normalized) Sig (Original) acetaminophen 325 mg / oxyCODONE hydrochloride 5 mg oral tablet (20 sources) Opioid Agonist Start: 06-02-2016 End: 11-21-2024 Oxycodone-Acetamino phen 1 TABLET tablet Discontinued 1 - 2 {tbl} PO EVERY 4 HOURS NEEDED as needed for Pain 60 June 02, 2016 12:00am November 21, 2024 3:31pm Start: 06-02-2016 take 1 tablet by felipe th every four hours as needed Oxycodone-Acetaminophen Active 1 - 2 TABLET PO EVERY 4 HOURS NEEDED 60 June 01, 2016 11:00pm alendronic acid 70 mg oral tablet (4 sources) Bisphosphonate Start: 10-18-2023 End: 12-13-2023 take 1 tablet by mouth every week in the morning alendronate (FOSAMAX) 70 mg tablet Take 1 tablet by mouth one time a week. In AM with cup of water on empty stomach. Nothing else by mouth and stay upright for 30 min. 4 tablet 11 10/18/2023 12/13/2023 Discontinued (Adverse Reaction) Comment on above: Take 1 tablet by felipe one time a week. In AM with cup of water on empty stomach. Nothing else by mouth and stay upright for 30 min. amoxicillin 875 mg / clavulanate 125 mg oral tablet (1 source) Penicillin-class Antibacterial Start: 08-24-2023 End: 09-03-2023 take 1 tablet by mouth twice daily amoxicillin-clavul anate potassium (AUGMENTIN) 875-125 mg per tablet Take 1 tablet by mouth two times a day for 10 days. 20 tablet 08/24/2023 09/03/2023 betamethasone 3 mg/ml / betamethasone acetate 3 mg/ml injectable suspension (2 sources) Corticosteroid Start: 10-16-2024 End: 10-16-2024 betamethasone acetate-betamethas one sodium phosphate 3 mg injection (CELESTONE) Start: 10-16-2024 End: 10-16-2024 3 mg, Injection - FOR ORTHO USE ONLY, ONCE, 1 dose, Starting on Wed10/16/24 at 0944, Until Wed10/16/24 at 0944 chlorhexidine gluconate 40 mg/ml medicated liquid soap (1 source) Start: 05-07-2025 End: 05-14-2025 Chlorhexidine Gluconate (Hibiclens) 4 % liquid Discontinued 1 NMA TOPICAL ONCE 473 May 07, 2025 12:00am May 14, 2025 12:58pm Shower with once daily for one week docusate sodium 100 mg oral capsule (20 sources) Start: 06-02-2016 End: 11-21-2024 take 1 capsule by mouth twice daily as needed for constipation Docusate Sodium (Dok) 100 MG capsule Discontinued 100 mg PO TWICE DAILY NEEDED as needed for Constipation 10 June 02, 2016 12:00am November 21, 2024 3:32pm epinastine hydrochloride 0.5 mg/ml ophthalmic solution (20 sources) Histamine-1 Receptor Inhibitor, Adrenergic Receptor Agonist Start: 05-26-2016 End: 11-21-2024 Epinastine Hcl (Elestat 0.05%) 1 DROP drops Discontinued 1 NMA Each Eye TWICE A DAY May 26, 2016 12:00am November 21, 2024 3:32pm esomeprazole 40 mg delayed release oral capsule (20 sources) Proton Pump Inhibitor Start: 05-26-2016 End: 11-21-2024 take 1 capsule by mouth once daily Esomeprazole Magnesium (Nexium) 40 MG capsule Discontinued 40 mg PO DAILY May 26, 2016 12:00am November 21, 2024 3:31pm famotidine 40 mg oral tablet (2 sources) Histamine-2 Receptor Antagonist Start: 04-13-2025 End: 05-07-2025 take 1 tablet by mouth once daily Famotidine 40 mg tablet Discontinued 40 mg PO daily 30 0 April 13, 2025 12:00am May 07, 2025 1:39pm fluticasone furoate 0.0275 mg/actuat metered dose nasal spray (20 sources) Corticosteroid Start: 05-26-2016 End: 11-21-2024 Fluticasone Furoate (Veramyst) 10 GM spray,suspension Discontinued 2 NMA NS DAILY May 26, 2016 12:00am November 21, 2024 3:31pm Start: 05-26-2016 Fluticasone Fu roate (Veramyst) 10 GM spray,suspension Active 2 SPRAY NS DAILY May 25, 2016 11:00pm halobetasol propionate 0.0005 mg/mg topical ointment (20 sources) Corticosteroid Start: 05-26-2016 End: 11-21-2024 Halobetasol Propionate (Ultravate) 50 GM ointment Discontinued 15 g TP NEEDED as needed for SKIN IRRITATION May 26, 2016 12:00am November 21, 2024 3:31pm hydroxychloroquine sulfate 200 mg oral tablet (20 sources) Antimalarial, Antirheumatic Agent End: 09-21-2024 hydrOXYchloroQUINE (PLAQUENIL) 200 mg tablet Take by mouth twice daily. 09/21/2024 Discontinued (Discontinued by another Health Care Provider) Comment on above: Take by mouth twice daily. 10 ml lidocaine hydrochloride 10 mg/ml injection (2 sources) Antiarrhythmic, Amide Local Anesthetic Start: 10-16-2024 End: 10-16-2024 lidocaine (PF) 10 mg/mL (1 %) 0.5 mL injection (XYLOCAINE) Start: 10-16-2024 End: 10-16-2024 0.5 mL, Injection - FOR ORTH O USE ONLY, ONCE, 1 dose, Starting on Wed10/16/24 at 0944, Until Wed10/16/24 at 0944 methylPREDNISolone (2 sources) Corticosteroid Start: 09-19-2021 End: 09-25-2021 methylPREDNISolone (MEDROL, NEYMAR,) 4 mg Dose-Pack Follow dosing instructions, take with food. 1 Package 09/19/2021 09/25/2021 mupirocin 0.02 mg/mg topical ointment (1 source) RNA Synthetase Inhibitor Antibacterial Start: 05-07-2025 End: 05-14-2025 Mupirocin (Centany) 2 % ointment Discontinued 1 NMA TOPICAL TWICE A DAY 15 May 07, 2025 12:00am May 14, 2025 12:56pm Apply to a qtip into bilateral nares BID for one week omeprazole 40 mg delayed release oral capsule (9 sources) Proton Pump Inhibitor Start: 04-06-2025 End: 04-13-2025 take 1 capsule by mouth once daily Omeprazole 40 mg capsule,delayed release(DR/EC) Discontinued 40 mg PO daily 90 April 06, 2025 12:00am April 13, 2025 11:10am Take 30minutes before eating. Start: 03-09-2025 End: 04-06-2025 take 1 capsule by mouth twice daily Omeprazole 20 mg capsule,delayed release(DR/EC) Discontinued 20 mg PO TWICE A DAY 60 0 March 09, 2025 12:00am April 06, 2025 1:44pm Take 30 minutes before eating promethazine hydrochloride 25 mg oral tablet (20 sources) Phenothiazine Start: 06-02-2016 End: 11-21-2024 take 1 tablet by mouth every four hours as needed for nausea Promethazine 25 MG tablet Discontinued 25 mg PO EVERY 4 HOURS NEEDED as needed for Nausea 10 June 02, 2016 12:00am November 21, 2024 3:31pm Problems Active Problems Problem Classification Problem Date Documented Da te Episodic/Chronic Abdominal hernia (11 sources) Spigelian hernia; Translations: [Ventral hernia without obstruction or gangrene] Onset: Episodic Comment on above: Patient is a 70-year -old female who presents for a number of complaints today including newly diagnosed left spigelian hernia, newly diagnosed cholelithiasis, and history of inability to complete colonoscopy due to a reportedly narrowed colon. After careful review of patient's history and imaging with CT abdomen pelvis on 04/02/2025 I believe patient is primarily symptomatic from her spigelian hernia. Further, I defer with radiology and find that it is not her small bowel that is contained within her hernia but actually her sigmoid colon. With this finding it is understandable why gastroenterology would have such a difficult time navigating the sigmoid colon to complete a colonoscopy given the hairpin turn stat would otherwise not be present if the colon were not prone to trapping in the hernia defect. I reviewed patient's CT imaging with her and shared this hypothesis. I was careful to point out the relevant anatomy and the size of the hernia defect which appears to measure 3 cm x 4 cm in the left lower quadrant. According to patient's history she started to notice drooping in the postoperative period following her appendectomy. Therefore this raises the possibility that her hernia is less a spontaneous event and perhaps more appropriately considered an incisional hernia. However, given its location at the linea semilunaris we will continue to regarded as a spigelian hernia. Either way, I believe operative repair is indicated based on patient's symptoms and, further, believe repair may allow gastroenterology to finally complete a colonoscopy. A procedure for robot-assisted spigelian hernia repair with mesh placement was then discussed in detail. Patient is receptive and wishes to be underway once the schedule allows. She was informed of expected activity restrictions to minimize her risk for recurrence postoperatively. Abdominal pain (20 sources) Abdominal pain; Translations: [Unspecified abdominal pain] Onset: 5 11-27-2024 Episodic Biliary tract disease (2 sources) Biliary calculus; Translations: [Calculus of gallbladder without cholecystitis without obstruction] 05-03-2025 Episodic Comment on above: Patient with choleli thiasis seen on CT imaging. According to patient's history and exam this appears to be more of an incidental finding. Again, I differ with radiology and measure patient's gallstone diameter at at least 2.7 cm (rather than 1.7 cm as reported). I shared there is a relative indication to complete cholecystectomy for gallstones 3 cm or greater as there is an association with gallbladder cancer. I believe patient benefits from this gallstone being located primarily in the fundal portion of the gallbladder rather than the infundibular or neck portion of the gallbladder. I do not recommend undertaking cholecystectomy concurrent with spigelian hernia repair due to the risk for cross-contamination and perioperative infectious concerns. That being said patient may require cholecystectomy in the future. Patient was advised of symptoms to be watchful towards. Complications of surgical procedures or medical care (20 sources) Prolapse of vaginal vault after hysterectomy; Translations: [Prolapse of vaginal vault after hysterectomy] Onset: 3 08-28-2019 Chronic Digestive congenital anomalies (1 source) Tortuous colon; Translations: [Other specified congenital malformations of intestine] Chronic Disorders of lipid metabolism (20 sources) Mixed hyperlipidemia; Translations: [Mixed hyperlipidemia] Onset: 0 08-28-2019 Chronic Diverticulosis and diverticulitis (20 sources) Diverticular disease; Translations: [Diverticulosis of intestine, part unspecified, without perforation or abscess without bleeding] Chronic Esophageal disorders (20 sources) Gastroesophageal reflux disease without esophagitis; Translations: [Gastro-esophageal reflux disease without esophagitis] Onset: 0 08-28-2019 Chronic Comment on above: CONTROLLED AT THIS T [facility] WITH MED Essential hypertension (20 sources) Essential hypertension; Translations: [Essential (primary) hypertension] Onset: 0 08-28-2019 Chronic Genitourinary symptoms and ill-defined conditions (20 sources) Mixed urinary incontinence; Translations: [Mixed incontinence] Onset: 2 08-28-2019 Chronic Hemorrhoids (20 sources) Internal hemorrhoids; Translations: [Other hemorrhoids] Episodic Intestinal obstruction without hernia (15 sources) Stenosis of colon; Translations: [Other intestinal obstruction unspecified as to partial versus complete obstruction] Onset: 5 03-09-2025 Episodic Menopausal disorders (20 sources) Atrophic vaginitis; Translations: [Postmenopausal atrophic vaginitis] Onset: 2 08-28-2019 Chronic Mycoses (1 source) Onychomycosis; Translations: [Tinea unguium] Episodic Open wounds of extremities (2 sources) Cat bite - wound; Translations: [Open bite of left hand, initial encounter] 08-24-2023 Episodic Osteoarthritis (20 sources) Arthritis; Translations: [Unspecified osteoarthritis, unspecified site] Onset: 3 Chronic Other and unspecified benign neoplasm (20 sources) History of polyp of colon; Translations: [Personal history of colonic polyps] Onset: 2 09-19-2021 Episodic Other circulatory disease (1 source) Raynaud's syndrome without gangrene; Translations: [Autoimmune disease, not elsewhere classified] 10-16-2024 Chronic Other circulatory disease (2 sources) Abnormal peripheral pulse; Translations: [Other specified symptoms and signs involving the circulatory and respiratory systems] 10-16-2024 Episodic Other connective tissue disease (3 sources) Trigger thumb of left hand; Translations: [Trigger thumb, left thumb] 09-21-2024 Episodic Other connective tissue disease (3 sources) Pain of toes of bilateral feet; Translations: [Pain in right toe(s)] 09-21-2024 Episodic Other gastrointestinal disorders (2 sources) Dysphagia; Translations: [Dysphagia, unspecified] Episodic Other inflammatory condition of skin (20 sources) Rosacea; Translations: [Rosacea, unspecified] 08-28-2019 Chronic Other nervous system disorders (3 sources) Carpal tunnel syndrome of left wrist; Translations: [Carpal tunnel syndrome, left upper limb] 10-16-2024 Chronic Other nervous system disorders (1 source) Carpal tunnel syndrome, left upper limb; Translations: [Carpal tunnel syndrome, left upper limb] Onset: 5 Chronic Other nervous system disorders (3 sources) Paresthesia of hand ; Translations: [Anesthesia of skin] 09-21-2024 Episodic Other nutritional; endocrine; and metabolic disorders (20 sources) Severe obesity; Translations: [Morbid (severe) obesity due to excess calories] Onset: 4 09-21-2023 Chronic Other nutritional; endocrine; and metabolic disorders (1 source) Morbid (severe) obesity due to excess calories; Translations: [Severe obesity (BMI 35.0-39.9) with comorbidity (HCC)] Onset: 4 Chronic Other skin disorders (3 sources) Dystrophia unguium; Translations: [Nail dystrophy] 10-16-2024 Episodic Other upper respiratory disease (20 sources) Allergic rhinitis; Translations: [Allergic rhinitis, unspecified] Onset: 0 08-28-2019 Chronic Residual codes; unclassified (1 source) Menopause present; Translations: [Asymptomatic menopausal state] 10-06-2023 Episodic Rheumatoid arthritis and related disease (2 sources) Rheumatoid arthritis without rheumatoid factor, multiple sites; Translations: [Inflammatory polyarthropathy] Onset: 5 Chronic Superficial injury; contusion (1 source) Tick bite; Translations: [Insect bite (nonvenomous), right thigh, initial encounter] Episodic Thyroid disorders (20 sources) Cassidy thyroiditis; Translations: [Autoimmune thyroiditis] Onset: 2 10-21-2021 Chronic Unclassified (20 sources) Herniated urinary bladder; Translations: [Cystocele] Onset: 3 08-28-2019 Unclassified (2 sources) Stenosis of colon Unclassified (3 sources) K43.9 - Ventral hernia without obstruction or gangrene,R10.32 - Left lower quadrant pain,K56.699 - Other intestinal obstruction unspecified as to partial versus complete obstruction Unclassified (2 sources) Personal history of colon polyps, unspecified; Translations: [Personal history of colon polyps, unspecified] Onset: 5 Past or Other Problems Problem Classification Problem Date Documented Da te Episodic/Chronic Administrative/social admission (20 sources) Advance directive discussed with patient; Translations: [Other specified counseling] Onset: 3 Episodic Allergic reactions (20 sources) Eczema; Translations: [Dermatitis, unspecified] Onset: 0 08-28-2019 Episodic Appendicitis and other appendiceal conditions (20 sources) Acute appendicitis; Translations: [Unspecified acute appendicitis] Onset: 7 Resolved: 3 09-19-2012 Episodic Diabetes mellitus without complication (20 sources) Increased glucose level; Translations: [Other abnormal glucose] Onset: 3 Episodic Gastrointestinal hemorrhage (20 sources) Gastrointestinal hemorrhage; Translations: [Gastrointestinal hemorrhage, unspecified] Resolved: 0 08-28-2019 Episodic Headache; including migraine (20 sources) Sinus headache; Translations: [Sinus headache] Onset: 0 08-28-2019 Episodic Immunizations and screening for infectious disease (20 sources) Anti-nuclear factor positive; Translations: [Other specified abnormal immunological findings in serum] Onset: 2 Resolved: 4 02-03-2022 Episodic Other acquired deformities (20 sources) Lumbar spondylolisthesis; Translations: [Spondylolisthesis, lumbar region] Onset: 2 09-23-2021 Episodic Other aftercare (20 sources) Patient encounter status; Translations: [Other intermediate project manager (current) drug therapy] Onset: 0 08-28-2019 Episodic Other aftercare (1 source) Other intermediate project manager (current) drug therapy; Translations: [Medication management] Onset: 0 Episodic Other bone disease and musculoskeletal deformities (20 sources) Senile osteopenia; Translations: [Other specified disorders of bone density and structure, unspecified site] Onset: 0 10-17-2021 Episodic Other bone disease and musculoskeletal deformities (1 source) Other specified disorders of bone density and structure, unspecified site; Translations: [Osteopenia, senile] Onset: 5 Episodic Other circulatory disease (1 source) Other specified symptoms and signs involving the circulatory and respiratory systems; Translations: [Diminished pulses in lower extremity] Onset: 5 Episodic Other connective tissue disease (20 sources) Calcaneal spur; Translations: [Calcaneal spur, unspecified foot] Onset: 5 08-28-2019 Episodic Other connective tissue disease (20 sources) Fibromyalgia; Translations: [Fibromyalgia] Onset: 0 08-28-2019 Episodic Other connective tissue disease (20 sources) Pain in bilateral legs; Translations: [Pain in right leg] Onset: 2 09-19-2021 Episodic Other connective tissue disease (1 source) Fibromyalgia; Translations: [Fibromyalgia] Onset: 0 Episodic Other connective tissue disease (1 source) Trigger thumb, left thumb; Translations: [Trigger finger of left thumb] Onset: 5 Episodic Other connective tissue disease (1 source) Pain in right toe(s); Translations: [Pain in toes of both feet] Onset: 5 Episodic Other connective tissue disease (1 source) Pain in left toe(s); Translations: [Pain in toes of both feet] Onset: 5 Episodic Other gastrointestinal disorders (1 source) Dysphagia, unspecified; Translations: [Dysphagia, unspecified type] Onset: 5 Episodic Other nervous system disorders (3 sources) Anesthesia of skin; Translations: [Numbness and tingling in left hand] Onset: 5 Episodic Other nervous system disorders (2 sources) Paresthesia of skin; Translations: [Numbness and tingling in left hand] Onset: 5 Episodic Other screening for suspected conditions (not mental disorders or infectious disease) (12 sources) Mammography abnormal; Translations: [Other abnormal and inconclusive findings on diagnostic imaging of breast] Onset: 0 11-15-2024 Episodic Other skin disorders (1 source) Nail dystrophy; Translations: [Onychodystrophy] Onset: 5 Episodic Prolapse of female genital organs (20 sources) Midline cystocele; Translations: [Cystocele, midline] Onset: 2 Resolved: 3 10-31-2012 Chronic Residual codes; unclassified (20 sources) FH: Thyroid disorder; Translations: [Family history of other endocrine, nutritional and metabolic diseases] Onset: 0 08-28-2019 Episodic Screening and history of mental health and substance abuse codes (2 sources) Encounter for screening examination for other mental health and behavioral disorders; Translations: [Encounter for screening for depression] Onset: 5 Episodic Spondylosis; intervertebral disc disorders; other back problems (20 sources) Low back pain; Translations: [Lumbago] Onset: 8 08-28-2019 Episodic Unclassified (1 source) Patient encounter status 11-13-2024 Results Test Name Value Interpretation Reference Range Facility 12 Lead EKGon 05-15-2025 12 Lead EKG [facility] [address] [place] [address] 12 Lead EKG 05/15/25 0809 MR#: [id number] Acct: [id number] Name: ELISHA GODFREY Rep #: [id number] : 1955 70 From: Juancarlos Molina MD Attending Dr: Dr. Tavon Beauchamp MD Status: PRE [facility] Ordering Dr: El Gomez MD Date: 05/15/25 Location: [facility] Sex: F C Admitted: Test Reason : PREOP Blood Pressure : */* mmHG Vent. Rate : 59 BPM Atrial Rate : 59 BPM P-R Int : 166 ms QRS Dur : 86 ms QT Int : 414 ms P-R-T Axes : 59 3 23 degrees QTcB Int : 409 ms Sinus bradycardia Otherwise normal ECG When compared with ECG of 12-Sep-2012 14:24, No significant change was found Confirmed by JESSE PEARSON, JUANCARLOS ([id number]), newspaper managing editor SANDEEP PHIPPS ([id number]) on 05/15/2025 1:50:53 PM Referred By: Tavon Beauchamp Confirmed By: JUANCARLOS MOLINA MD 05/15/25 1350 Date Juancarlos Molina MD CC: Dr. El Gomez MD; Dr. Kade Fry MD; Dr. Tavon Beauchamp MD Signed Normal [facility] MRSA/SAID NASAL SCREENon MRSA+SAID SCRN Copy of report sent to Infection Control Printer [id number] [facility]04/[facility] MRSA Negative S. AUREUS S. aureus PositiveA Normal [facility] Comment on above: Performed By: #### M [id number] ####[facility] [id number] [place], [address] MRSA screenOrdered By: Erwin Beauchamp on 05-03-2025 MRSA DNA JOSELUIS+probe Ql (Unsp spec) [facility] Surgery Visit Reporton 05-03 Surgery Visit Report [facility] [address] [place] [address] OFFICE VISIT Date of Service: 05/03/25 MR#: [id number] Acct: [id number] Name: ELISHA GODFREY Gray Rep #: [id number] : 1955 Provider: Dr. Tavon andrew MD Age/Sex: 70/F Location: [facility] Status: Signed Intake Vital Signs 02/12/25 09:26 05/03/25 13:36 Height 5 ft 1 in 5 ft 1 in Weight: 192 lb BMI 36.2 BP 172/84 H Blood Pressure Location Lt brachial Position Sitting Respiration 17 Pulse 67 Pulse Source Monitor Pulse Oximetry (%) 97 Oxygen Delivery Method room air Intake Visit Reasons: HERNIA/ GALLSTONE Chief Complaint: hernia and gallstone Is patient in pain?: No Allergies lansoprazole (From Prevacid) Allergy (Verified 05/03/25 13:37) Hives latex Allergy (Verified 05/03/25 13:37) Unknown alendronate sodium (From Fosamax) Adverse Reaction (Unknown, Verified 05/03/25 13:37) heartburn adhesive Adverse Reaction (Verified 05/03/25 13:37) Unknown diphenhydramine (From Benadryl) Adverse Reaction (Verified 05/03/25 13:37) FEEL WEIRD Medications ???Medication ???Instructions ???Recorded ???Confirmed ???Type Ibuprofen [Motrin] 800 mg PO TID PRN PRN Pain 6 05/03/25 History aspirin 81 mg tablet,delayed 81 mg PO MOWEFR 05/26/16 05/03/25 History release calcium carbonate (Oyster Shell 500 mg PO BID 05/26/16 05/03/25 Hi story Calcium 500) cholecalciferol (vitamin D3) 25 2,000 unit PO BID 05/26/16 5 History mcg (1,000 unit) tablet (Vitamin D3) fexofenadine-pseudoephedrin e ER 1 ea PO DAILY 05/26/16 05/03/25 Hi story 180 mg-240 mg tablet,ext.release 24 hr (Carmelita-D 24 Hour) omega-3 fatty acids-fish oil 340 1 ea PO DAILY 05/26/16 05/03/25 Hi story mg-1,000 mg capsule (Fish Oil) ramipril 5 mg capsule 5 mg PO DAILY 05/26/16 05/03/25 Hi story vitamin B complex 1 ea PO DAILY 05/26/16 05/03/25 Hi story ascorbic acid (vitamin C) 1,000 mg 1 g PO QDAY 11/21/24 05/03/25 Hi story capsule methotrexate sodium 2.5 mg tablet 20 mg PO SA 11/21/24 05/03/25 His tory folic acid 1 mg tablet 2 mg PO QDAY 11/27/24 05/03/25 His tory dicyclomine 10 mg capsule 10 mg PO BID PRN abdominal pain 05/03/25 Rx #14 caps famotidine 40 mg tablet 40 mg PO QDAY #30 tabs 04/13/25 Rx Have you fallen in the past year?: No PFSH Medical History Wears glasses Rheumatoid arthritis TIA (transient ischemic attack) History of hiatal hernia Difficulty swallowing Non-smoker Shortness of breath on exertion Leg cramps History of edema GERD (gastroesophageal reflux disease) Osteopenia Osteoarthritis Hypertension Problems with hearing Migraines Cataracts, bilateral History of back problems Arthritis Seasonal allergies Surgical History History of esophagogastroduodenoscopy (EGD) History of colonoscopy History of tubal ligation H/O: hysterectomy History of appendectomy History of tonsillectomy Family History (Updated 05/03/25 @ 13:36 by Tova Cramer) Mother Arthritis Brother Arthritis Diabetes Heart disease Bleeding disorder Brother Colon cancer Bleeding disorder Social History Smoking Status: Never smoker alcohol intake: never substance use type: does not use what type of physical activity do you participate in: none HPI HPI HPI: Patient is a 70-year old female who presents for evaluation of a recently diagnosed left-sided spigelian hernia as well as gallstones. She is referred from PCP, Dr. Fry and from gastroenterology. She reports that she has had left lower quadrant pain for years. She initially ascribed it to a ovarian source, although she confesses that this did not make complete sense as she believes she underwent oophorectomy along with her hysterectomy completed remotely. She shares that this pain seems to come and go. She also adds that she has had no pain since she started going for further evaluation. She reports when the pain was present it was a sharp pain that would double you over. She wishes to know how this might be connected back to the fact that despite a history of uneventful colonoscopy she has presented twice now for colonoscopy with 2 separate gastroenterologists and neither procedure was able to be completed due to the narrowness of her colon. Ms. Godfrey denies any history of an inciting event such as lifting or straining. She denies any history of skin infections. Later in the visit she remarks that there was drooping of her abdominal wall following her appendix surgery. She is uncertain when her laparoscopic appendectomy was undertake (more content not included)... Normal [facility] Gastroenterology Visit Repor ton 04-06-2025 Gastroenterology Visit Report [facility] [address] [place] [address] OFFICE VISIT Date of Service: 04/06/25 MR#: [id number] Acct: [id number] Name: ELISHA GODFREY Rep #: [id number] : 1955 Provider: ANY matta Age/Sex: 69/F Location: [facility] Status: Signed Intake Vital Signs 02/12/25 09:26 Height 5 ft 1 in Intake Visit Reasons: Test Result-CT SCAN Allergies lansoprazole (From Prevacid) Allergy (Verified 04/06/25 13:15) Hives latex Allergy (Verified 04/06/25 13:15) Unknown alendronate sodium (From Fosamax) Adverse Reaction (Unknown, Verified 04/06/25 13:15) heartburn adhesive Adverse Reaction (Verified 04/06/25 13:15) Unknown diphenhydramine (From Benadryl) Adverse Reaction (Verified 04/06/25 13:15) FEEL WEIRD Medications ???Medication ???Instructions ???Recorded ???Confirmed ???Type Ibuprofen [Motrin] 800 mg PO TID PRN PRN Pain 6 04/06/25 History aspirin 81 mg tablet,delayed 81 mg PO MOWEFR 05/26/16 04/06/25 History release calcium carbonate (Oyster Shell 500 mg PO BID 05/26/16 04/06/25 Hi story Calcium 500) cholecalciferol (vitamin D3) 25 2,000 unit PO BID 05/26/16 5 History mcg (1,000 unit) tablet (Vitamin D3) fexofenadine-pseudoephedrin e ER 1 ea PO DAILY 05/26/16 04/06/25 Hi story 180 mg-240 mg tablet,ext.release 24 hr (Carmelita-D 24 Hour) omega-3 fatty acids-fish oil 340 1 ea PO DAILY 05/26/16 04/06/25 Hi story mg-1,000 mg capsule (Fish Oil) ramipril 5 mg capsule 5 mg PO DAILY 05/26/16 04/06/25 Hi story vitamin B complex 1 ea PO DAILY 05/26/16 04/06/25 Hi story ascorbic acid (vitamin C) 1,000 mg 1 g PO QDAY 11/21/24 04/06/25 Hi story capsule methotrexate sodium 2.5 mg tablet 20 mg PO SA 11/21/24 04/06/25 His tory folic acid 1 mg tablet 2 mg PO QDAY 11/27/24 04/06/25 His tory dicyclomine 10 mg capsule 10 mg PO BID PRN abdominal pain 04/06/25 Rx #14 caps omeprazole 40 mg capsule,delayed 40 mg PO QDAY #90 caps 04/06/25 Rx release Have you fallen in the past year?: No PFSH Medical History Wears glasses Rheumatoid arthritis TIA (transient ischemic attack) History of hiatal hernia Difficulty swallowing Non-smoker Shortness of breath on exertion Leg cramps History of edema GERD (gastroesophageal reflux disease) Osteopenia Osteoarthritis Hypertension Problems with hearing Migraines Cataracts, bilateral History of back problems Arthritis Seasonal allergies Surgical History History of esophagogastroduodenoscopy (EGD) History of colonoscopy History of tubal ligation H/O: hysterectomy History of appendectomy History of tonsillectomy Family History Mother Arthritis Brother Arthritis Colon cancer Diabetes Heart disease Social History Smoking Status: Never smoker alcohol intake: never substance use type: does not use what type of physical activity do you participate in: none HPI HPI Details: ELISHA GODFREY, is a 69 F who presents to the office today for FU. 11.27.24 OV *BGI established, pt reports that she is here to transfer care and to discuss scheduling for EGD and colonoscopy. Pt reports her last scopes were in 2021 and it was recommended she repeat within 1-2 years. Pt reports a burning sensation in her abdomen that comes in clusters, and is unable to identify trigger. Pt reports difficulty swallowing dry foods like bread and chicken. Pt continues with pantoprazole 40mg daily, thinks it is helpful, but not fully effective. *PLAN- past medical history of rheumatoid arthritis mostly involving her hands and upper extremities on methotrexate and folic acid, fibromyalgia, gastroesophageal reflux disease and intermittent left lower quadrant pain. She also has a personal history of adenomatous polyp and a family history of gastric cancer. She comes in today for initial evaluation regarding her ongoing gastral intestinal symptoms. We had previously ordered multiple PPIs in the past. Currently she is on pantoprazole 40 mg a day and she does have some good symptom control of what she calls her lower esophageal pain. She denies any esophageal dysphagia. She denies any chest pain or shortness of breath. She says she has had a cardiac workup in the past which has been normal. She does not take any NSAIDs on a daily basis for her rheumatoid arthritis. SHe did have a colonoscopy approximately 2 years ago which was incomplete. She has been getting intermittent left lower quadrant pain which lasts about 2 or 3 days but gets better spontaneously. This pain is associated with incomplete (more content not included)... Normal [facility] Abdomen/Pelvis WITH Contrast on 04-02-2025 Abdomen/Pelvis WITH Contrast [facility] Imaging Services [address] [place] [address] Abdomen/Pelvis WITH Contrast MR#: [id number] Acct: [id number] Name: ELISHA GODFREY Rep #: [id number] : 1955 F 69 From: Ry soto MD PCP: Dr. Kade Fry MD Status: REG [facility] Study: Abdomen/Pelvis WITH Contrast Date of Exam: 07/17 Exam# [id number] Ordering Dr: Zulma Christianson [employer]-C PROCEDURE: ABDOMEN/PELVIS WITH CONTRAST 04/02/2025 REASON FOR EXAM: COLON STENOSIS SEEN W/COLONOSCOPY Intermittent left lower quadrant pain. TECHNIQUE: ABDOMEN/PELVIS WITH CONTRAST Coronal and Sagittal reconstruction series were provided. CONTRAST: Isovue-300 VOLUME: 100 mL One or more dose reduction techniques were used (e.g., Automated exposure control, adjustment of the mA and/or kV according to patient size, use of iterative reconstruction technique. RADIATION DOSE SUMMARY: CTDlvol: 16.1 mGy DLP: 1220.77 mGycm COMPARISON: None FINDINGS: Lung bases: The lung bases are clear. No significant coronary artery calcification seen. Liver: Diffuse fatty infiltration. Gallbladder: Solitary gallstone measuring 1.7 cm. Spleen: Normal size. Pancreas: Normal size without evidence of mass surrounding inflammation or ductal dilation. Adrenals: Unremarkable. Kidneys: Normal renal sizes. No hydronephrosis. Bladder: Mildly distended urinary bladder. Reproductive Organs: Prior hysterectomy. Adnexal regions are unremarkable. Bowel: No evidence of bowel obstruction. Sigmoid diverticulosis. Appendix: The appendix is not identified. There is no inflammatory process identified in the right lower quadrant to suggest appendicitis. Lymph nodes: Unremarkable. Vasculature: Mild diffuse atherosclerotic calcifications are noted. Peritoneum / Retroperitoneum: Left-sided spigelian hernia containing fat and nondilated small bowel loops. Bones: Degenerative changes of the spine. Grade 1 anterior listhesis of L4 on L5. CT/Abdomen/Pelvis WITH Contrast IMPRESSION: Solitary gallstone. Left-sided spigelian hernia containing fat and nondilated small bowel loops. Sigmoid diverticulosis. Reading Location: [place] [address] CC: ANY Christianson; Dr. Kade Fry MD Professional Wrestler: Signed Normal [facility] Absolute lymphocyte countOrd ered By: Dina Ferrer on 03-27-2025 Lymphocytes Auto (Unsp spec) [#/Vol] 1.20 10*3/uL 0.83-4.51 [facility] Absolute neutrophil countOrd ered By: Dina Ferrer on 03-27-2025 Neutrophils (Bld) [#/Vol] 3.0 10*3/uL 2.0-7.7 [facility] Anion gap in Serum or Plasma Ordered By: Dina Ferrer on 03-27-2025 Anion gap [Moles/Vol] 13 mmol/L 5-15 [facility] Automated lymphocyte count a s percentage of total leukocytesOrdered By: Dina Ferrer on 03-27-2025 Lymphocytes/100 WBC Auto (Unsp spec) 25.9 % 19-41 [facility] BUN/creatinine ratioOrdered By: Dinadahiana Ferrer on 03-27-2025 Urea nitrogen/Creatinine [Mass ratio] 23.9 mg/mg High 10-20 [facility] Basophil percentageOrdered B y: Dina Ferrer on 03-27-2025 Basophils/100 WBC (Bld) 0.4 % 0-1 [facility] Bilirubin, totalOrdered By: Dina Nabil on 03-27-2025 Bilirubin [Mass/Vol] 0.72 mg/dL 0.00-1.30 [facility] CBC W/Diff, Automatedon Absolute Lymph 1.20 X10 3/uL Normal 0.83-4.51 [facility] Comment on above: Performed By: #### L 100.0100, L500.4050 ####[facility] [address] [place], [address] Absolute Neut 3.0 X10 3/uL Normal 2.0-7.7 [facility] Comment on above: Performed By: #### L 100.0100, L500.4050 ####[facility] [address] [place], [address] Basophils/100 WBC (Bld) 0.4 % Normal 0-1 [facility] Comment on above: Performed By: #### L 100.0100, L500.4050 ####[facility] [address] [place], [address] Eosinophils/100 WBC (Bld) 1.7 % Normal 0-5 [facility] Comment on above: Performed By: #### L 100.0100, L500.4050 ####[facility] [address] [place], [address] Erythrocyte distribution width (RBC) [Ratio] 12.6 % Normal 11.6-14.6 [facility] Comment on above: Performed By: #### L 100.0100, L500.4050 ####[facility] [address] [place], [address] Hematocrit (Bld) [Volume fraction] 41.4 % Normal 37-47 [facility] Comment on above: Performed By: #### L 100.0100, L500.4050 ####[facility] [address] [place], [address] Hemoglobin (Bld) [Mass/Vol] 13.9 g/dL Normal 12.0-15.0 [facility] Comment on above: Performed By: #### L 100.0100, L500.4050 ####[facility] [address] [place], [address] IG% 0.400 Normal 0.0-0.9 [facility] Comment on above: Result Comment: IG% - Immature Granulocytes (promyelocytes, myelocytes and metamyelocytes) > 1% indicates that a LEFT SHIFT is Present. Performed By: #### L 100.0100, L500.4050 ####[facility] [address] [place], [address] Lymphocytes/100 WBC (Bld) 25.9 % Normal 19-41 [facility] Comment on above: Performed By: #### L 100.0100, L500.4050 ####[facility] [address] [place], [address] MCH (RBC) [Entitic mass] 35.0 pg High 27.0-32.0 [facility] Comment on above: Performed By: #### L 100.0100, L500.4050 ####[facility] [address] [place], [address] MCHC (RBC) [Mass/Vol] 33.6 g/dL Normal 32-36 [facility] Comment on above: Performed By: #### L 100.0100, L500.4050 ####[facility] [address] [place], [address] MCV (RBC) [Entitic vol] 104.3 fL High 81-99 [facility] Comment on above: Performed By: #### L 100.0100, L500.4050 ####[facility] [address] [place], [address] Monocytes/100 WBC (Bld) 6.3 % Normal 0-10 [facility] Comment on above: Performed By: #### L 100.0100, L500.4050 ####[facility] [address] [place], [address] Neutrophils/100 WBC (Bld) 65.3 % Normal 47-70 [facility] Comment on above: Performed By: #### L 100.0100, L500.4050 ####[facility] [address] [place], [address] Nucleated RBC (Bld) [#/Vol] 0 10*3/uL Normal 0-5 [facility] Comment on above: Performed By: #### L 100.0100, L500.4050 ####[facility] [address] [place], [address] Platelet mean volume (Bld) [Entitic vol] 11.2 fL Normal 6.2-12.0 [facility] Comment on above: Performed By: #### L 100.0100, L500.4050 ####[facility] [address] [place], [address] Platelets (Bld) [#/Vol] 206 10*3/uL Normal 150-450 [facility] Comment on above: Performed By: #### L 100.0100, L500.4050 ####[facility] [address] [place], [address] RBC (Bld) [#/Vol] 3.97 10*6/uL Low 4.2-5.4 [facility] Comment on above: Performed By: #### L 100.0100, L500.4050 ####[facility] [address] [place], [address] RDW SD 48.4 fl High 35.1-43.9 [facility] Comment on above: Performed By: #### L 100.0100, L500.4050 ####[facility] [address] [place], [address] WBC (Bld) [#/Vol] 4.6 10*3/uL Normal 4.4-11.0 [facility] Comment on above: Performed By: #### L 100.0100, L500.4050 ####[facility] [address] [place], [address] Carbon dioxide, total [Moles /volume] in Central venous bloodOrdered By: Dina Ferrer on 03-27-2025 CO2 [Moles/Vol] 24.9 mmol/L 21.0-32.0 [facility] Chloride assayOrdered By: Ba Ferrer on 03-27-2025 Chloride [Moles/Vol] 102 mmol/L 98-108 [facility] Comprehensive Metabolic Prof ilon 03-27-2025 Albumin [Mass/Vol] 4.5 g/dL Normal 3.4-4.8 [facility] Comment on above: Performed By: #### L 100.0100, L500.4050 ####[facility] [address] [place], [address] Albumin/Globulin [Mass ratio] 1.8 {ratio} Normal 0.9-2.4 [facility] Comment on above: Performed By: #### L 100.0100, L500.4050 ####[facility] [address] [place], [address] ALK PHOS 97 U/L Normal 35-104 [facility] Comment on above: Performed By: #### L 100.0100, L500.4050 ####[facility] [address] [place], [address] ALT [Catalytic activity/Vol] 13 U/L Normal <=34 [facility] Comment on above: Performed By: #### L 100.0100, L500.4050 ####[facility] [address] [place], [address] AST [Catalytic activity/Vol] 29 U/L Normal <=31 [facility] Comment on above: Performed By: #### L 100.0100, L500.4050 ####[facility] [address] [place], [address] Bilirubin [Mass/Vol] 0.72 mg/dL Normal 0.00-1.30 [facility] Comment on above: Performed By: #### L 100.0100, L500.4050 ####[facility] [address] [place], [address] BUN/CRE 23.9 RATIO High 10-20 [facility] Comment on above: Performed By: #### L 100.0100, L500.4050 ####[facility] [address] [place], [address] Calcium [Mass/Vol] 9.5 mg/dL Normal 7.6-11.0 [facility] Comment on above: Performed By: #### L 100.0100, L500.4050 ####[facility] [address] [place], [address] Chloride [Moles/Vol] 102 mmol/L Normal 98-108 [facility] Comment on above: Performed By: #### L 100.0100, L500.4050 ####[facility] [address] [place], [address] CO2 [Moles/Vol] 24.9 mmol/L Normal 21.0-32.0 [facility] Comment on above: Performed By: #### L 100.0100, L500.4050 ####[facility] [address] [place], [address] Creatinine [Mass/Vol] 0.77 mg/dL Normal 0.70-1.20 [facility] Comment on above: Performed By: #### L 100.0100, L500.4050 ####[facility] [address] [place], [address] GAP 13 Normal 5-15 [facility] Comment on above: Performed By: #### L 100.0100, L500.4050 ####[facility] [address] [place], [address] GFR/1.73 sq M.predicted among non-blacks MDRD (S/P/Bld) [Vol rate/Area] 83 mL/min/{1.73_m2} Normal >60 [facility] Comment on above: Result Comment: mL/m in/1.73m2 CKD-EPI Creatinine Equation (2020) Performed By: #### L 100.0100, L500.4050 ####[facility] [address] [place], [address] Globulin (S) [Mass/Vol] 2.5 g/dL Normal 2.2-4.2 [facility] Comment on above: Performed By: #### L 100.0100, L500.4050 ####[facility] [address] [place], [address] Glucose [Mass/Vol] 164 mg/dL High 70-99 [facility] Comment on above: Performed By: #### L 100.0100, L500.4050 ####[facility] [address] [place], [address] Potassium [Moles/Vol] 3.9 mmol/L Normal 3.3-5.1 [facility] Comment on above: Performed By: #### L 100.0100, L500.4050 ####[facility] [address] [place], [address] Sodium [Moles/Vol] 139 mmol/L Normal 133-145 [facility] Comment on above: Performed By: #### L 100.0100, L500.4050 ####[facility] [address] [place], [address] T PROT 7.0 g/dL Normal 5.9-8.4 [facility] Comment on above: Performed By: #### L 100.0100, L500.4050 ####[facility] [address] [place], [address] Urea nitrogen [Mass/Vol] 19 mg/dL Normal 4-19 [facility] Comment on above: Performed By: #### L 100.0100, L500.4050 ####[facility] [address] [place], [address] Eosinophil percentageOrdered By: Dina Ferrer on 03-27-2025 Eosinophils/100 WBC (Bld) 1.7 % 0-5 [facility] Erythrocyte distribution wid th ratioOrdered By: Dina Ferrer on 03-27-2025 Erythrocyte distribution width (RBC) [Ratio] 12.6 % 11.6-14.6 [facility] Erythrocyte distribution wid th standard deviationOrdered By: Dina Ferrer on 03-27-2025 Erythrocyte distribution width (RBC) [Ratio] 48.4 fl High 35.1-43.9 [facility] Glomerular filtration rate ( GFR) estimation/1.73 sq m using serum, plasma, or whole bOrdered By: Dina Ferrer on 03-27-2025 GFR/1.73 sq M.predicted among non-blacks MDRD (S/P/Bld) [Vol rate/Area] 83 mL/min/{1.73_m2} >60 [facility] Comment on above: mL/min/1.73m2 CKD-EP I Creatinine Equation (2020) Hematocrit Auto (Bld) [Volum e fraction]Ordered By: Dina Ferrer on 03-27-2025 Hematocrit (Bld) [Volume fraction] 41.4 % 37-47 [facility] Hemoglobin measurementOrdere d By: Dina Ferrer on 03-27-2025 Hemoglobin (Bld) [Mass/Vol] 13.9 g/dL 12.0-15.0 [facility] Immature granulocytes/100 WB C Auto (Bld)Ordered By: Dina Ferrer on 03-27-2025 Immature granulocytes/100 WBC (Bld) 0.400 % 0.0-0.9 [facility] Comment on above: IG% - Immature Granu locytes (promyelocytes, myelocytes and metamyelocytes) > 1% indicates that a LEFT SHIFT is Present. Laboratory - Chemistry and C hemistry - challengeOrdered By: Dina Ferrer on 03-27-2025 AST [Catalytic activity/Vol] 29 U/L <32 [facility] MCV (mean corpuscular volume ) determinationOrdered By: Dina Ferrer on 03-27-2025 MCV (RBC) [Entitic vol] 104.3 fL High 81-99 [facility] Mean corpuscular hemoglobin (MCH) determinationOrdered By: Dina Ferrer on 03-27-2025 MCH (RBC) [Entitic mass] 35.0 pg High 27.0-32.0 [facility] Mean corpuscular hemoglobin concentration (MCHC) determinationOrdered By: Dina Ferrer on 03-27-2025 MCHC (RBC) [Mass/Vol] 33.6 g/dL 32-36 [facility] Mean platelet volume determi nationOrdered By: Dina Ferrer on 03-27-2025 Platelet mean volume (Bld) [Entitic vol] 11.2 fL 6.2-12.0 [facility] Monocyte percentageOrdered B y: Dina Ferrer on 03-27-2025 Monocytes/100 WBC (Bld) 6.3 % 0-10 [facility] Neutrophil percentageOrdered By: Dina Ferrer on 03-27-2025 Neutrophils/100 WBC (Bld) 65.3 % 47-70 [facility] Nucleated red blood cell per centageOrdered By: Dina Ferrer on 03-27-2025 Nucleated RBC/100 WBC (Bld) [Ratio] 0 % 0-5 [facility] Platelet countOrdered By: Ba Ferrer on 03-27-2025 Platelets (Bld) [#/Vol] 206 10*3/uL 150-450 [facility] Potassium measurement (mass/ volume)Ordered By: Dina Ferrer on 03-27-2025 Potassium (Unsp spec) [Mass/Vol] 3.9 mmol/L 3.3-5.1 [facility] RBC Auto (Bld) [#/Vol]Ordere d By: Dina Ferrer on 03-27-2025 RBC (Bld) [#/Vol] 3.97 10*6/uL Low 4.2-5.4 [facility] Serum creatinine measurement (mass/volume)Ordered By: Dina Ferrer on 03-27-2025 Creatinine [Mass/Vol] 0.77 mg/dL 0.70-1.20 [facility] Serum globulin measurementOr dered By: Dina Ferrer on 03-27-2025 Globulin (S) [Mass/Vol] 2.5 g/dL 2.2-4.2 [facility] Serum glucose measurement (m ass/volume)Ordered By: Dina Fererr on 03-27-2025 Glucose [Mass/Vol] 164 mg/dL High 70-99 [facility] Serum or plasma alanine abraham otransferase (ALT) measurementOrdered By: Dina Ferrer on 03-27-2025 ALT [Catalytic activity/Vol] 13 U/L <35 [facility] Serum or plasma albumin shira urement (mass/volume)Ordered By: Dina Ferrer on 03-27-2025 Albumin [Mass/Vol] 4.5 g/dL 3.4-4.8 [facility] Serum or plasma albumin/glob ulin mass ratioOrdered By: Dina Ferrer on 03-27-2025 Albumin/Globulin [Mass ratio] 1.8 {ratio} 0.9-2.4 [facility] Serum or plasma alkaline ramone sphatase measurementOrdered By: Dnia Ferrer on 03-27-2025 ALP [Catalytic activity/Vol] 97 U/L 35-104 [facility] Serum or plasma calcium shira urement (mass/volume)Ordered By: Dina Ferrer on 03-27-2025 Calcium [Mass/Vol] 9.5 mg/dL 7.6-11.0 [facility] Serum or plasma urea nitroge n measurement (mass/volume)Ordered By: Dina Ferrer on 03-27-2025 Urea nitrogen [Mass/Vol] 19 mg/dL 4-19 [facility] Sodium levelOrdered By: Shaila Ferrer on 03-27-2025 Sodium [Moles/Vol] 139 mmol/L 133-145 [facility] Total proteinOrdered By: Issac Ferrer on 03-27-2025 Protein [Mass/Vol] 7.0 g/dL 5.9-8.4 [facility] White blood cell (WBC) count Ordered By: Dina Ferrer on 03-27-2025 WBC (Bld) [#/Vol] 4.6 10*3/uL 4.4-11.0 [facility] Gastroenterology Visit Repor ton 03-09-2025 Gastroenterology Visit Report [facility] Gastroenterology [address] [place] [address] OFFICE VISIT Date of Service: 03/09/25 MR#: [id number] Acct: [id number] Name: ELISHA GODFREY Rep #: [id number] : 1955 Provider: ANY matta Age/Sex: 69/F Location: [facility] Status: Signed Intake Vital Signs 06/02/16 07:59 02/12/25 09:26 Height 5 ft 1.5 in 5 ft 1 in Intake Visit Reasons: Test Result Allergies lansoprazole (From Prevacid) Allergy (Verified 03/09/25 08:57) Hives latex Allergy (Verified 03/09/25 08:57) Unknown alendronate sodium (From Fosamax) Adverse Reaction (Unknown, Verified 03/09/25 08:57) heartburn adhesive Adverse Reaction (Verified 03/09/25 08:57) Unknown diphenhydramine (From Benadryl) Adverse Reaction (Verified 03/09/25 08:57) FEEL WEIRD Medications ???Medication ???Instructions ???Recorded ???Confirmed ???Type Ibuprofen [Motrin] 800 mg PO TID PRN PRN Pain 6 03/09/25 History aspirin 81 mg tablet,delayed 81 mg PO MOWEFR 05/26/16 03/09/25 History release calcium carbonate (Oyster Shell 500 mg PO BID 05/26/16 03/09/25 Hi story Calcium 500) cholecalciferol (vitamin D3) 25 2,000 unit PO BID 05/26/16 5 History mcg (1,000 unit) tablet (Vitamin D3) fexofenadine-pseudoephedrin e ER 1 ea PO DAILY 05/26/16 03/09/25 Hi story 180 mg-240 mg tablet,ext.release 24 hr (Carmelita-D 24 Hour) omega-3 fatty acids-fish oil 340 1 ea PO DAILY 05/26/16 03/09/25 Hi story mg-1,000 mg capsule (Fish Oil) ramipril 5 mg capsule 5 mg PO DAILY 05/26/16 03/09/25 Hi story vitamin B complex 1 ea PO DAILY 05/26/16 03/09/25 Hi story ascorbic acid (vitamin C) 1,000 mg 1 g PO QDAY 11/21/24 03/09/25 Hi story capsule methotrexate sodium 2.5 mg tablet 20 mg PO SA 11/21/24 03/09/25 His tory folic acid 1 mg tablet 2 mg PO QDAY 11/27/24 03/09/25 His tory dicyclomine 10 mg capsule 10 mg PO BID PRN abdominal pain 03/09/25 Rx #14 caps omeprazole 20 mg capsule,delayed 20 mg PO BID #60 caps 03/09/25 Rx release Have you fallen in the past year?: No PFSH Medical History Wears glasses Rheumatoid arthritis TIA (transient ischemic attack) History of hiatal hernia Difficulty swallowing Non-smoker Shortness of breath on exertion Leg cramps History of edema GERD (gastroesophageal reflux disease) Osteopenia Osteoarthritis Hypertension Problems with hearing Migraines Cataracts, bilateral History of back problems Arthritis Seasonal allergies Surgical History History of esophagogastroduodenoscopy (EGD) History of colonoscopy History of tubal ligation H/O: hysterectomy History of appendectomy History of tonsillectomy Family History Mother Arthritis Brother Arthritis Colon cancer Diabetes Heart disease Social History Smoking Status: Never smoker alcohol intake: never substance use type: does not use what type of physical activity do you participate in: none HPI HPI Details: ELISHA GODFREY, is a 69 F who presents to the office today for FU. 11.27.24 OV *BGI established, pt reports that she is here to transfer care and to discuss scheduling for EGD and colonoscopy. Pt reports her last scopes were in 2021 and it was recommended she repeat within 1-2 years. Pt reports a burning sensation in her abdomen that comes in clusters, and is unable to identify trigger. Pt reports difficulty swallowing dry foods like bread and chicken. Pt continues with pantoprazole 40mg daily, thinks it is helpful, but not fully effective. *PLAN- past medical history of rheumatoid arthritis mostly involving her hands and upper extremities on methotrexate and folic acid, fibromyalgia, gastroesophageal reflux disease and intermittent left lower quadrant pain. She also has a personal history of adenomatous polyp and a family history of gastric cancer. She comes in today for initial evaluation regarding her ongoing gastral intestinal symptoms. We had previously ordered multiple PPIs in the past. Currently she is on pantoprazole 40 mg a day and she does have some good symptom control of what she calls her lower esophageal pain. She denies any esophageal dysphagia. She denies any chest pain or shortness of breath. She says she has had a cardiac workup in the past which has been normal. She does not take any NSAIDs on a daily basis for her rheumatoid arthritis. SHe did have a colonoscopy approximately 2 years ago which was incomplete. She has been getting intermittent left lower quadrant pain which lasts about 2 or 3 days but gets better spontaneously. This pain is associ (more content not included)... Normal [facility] Colonoscopy Reporton 025 Colonoscopy Report [facility] Medical Records Department [address] [place] [address] Colonoscopy Report MR#: [id number] Acct: [id number] Name: ELISHA GODFREY Rep #: [id number] : 1955 69 From: Darrin Lozoya DO PCP: Dr. Kade Fry MD Status:REG [facility] Patient Name: Elisha Godfrey Procedure Date: 02/12/2025 10:21 AM Date of : 1955 Age: 69 Procedure: Colonoscopy Indications: High risk colon cancer surveillance: Personal history of colonic polyps Providers: Darrin Lozoya DO Referring MD: Kade Fry MD Medicines: Monitored Anesthesia Care Patient Profile: This is a 69 year old female. Refer to note in patient chart for documentation of history and physical. Patient has symptoms of acute left lower quadrant abdominal pain, chronic epigastric abdominal pain and chronic heartburn. Last Colonoscopy: 3 years ago. Complications: No immediate complications. Procedure: Pre-Anesthesia Assessment: - Prior to the procedure, a History and Physical was performed, and patient medications and allergies were reviewed. The patient is competent. The risks and benefits of the procedure and the sedation options and risks were discussed with the patient. All questions were answered and informed consent was obtained. Patient identification and proposed procedure were verified. Mental Status Examination: alert and oriented. Airway Examination: normal oropharyngeal airway and neck mobility. Respiratory Examination: clear to auscultation. CV Examination: normal. Prophylactic Antibiotics: The patient does not require prophylactic antibiotics. Prior Anticoagulants: The patient has taken no anticoagulant or antiplatelet agents except for NSAID medication. ASA Grade Assessment: II - A patient with mild systemic disease. After reviewing the risks and benefits, the patient was deemed in satisfactory condition to undergo the procedure. The anesthesia plan was to use monitored anesthesia care (MAC). Immediately prior to administration of medications, the patient was re-assessed for adequacy to receive sedatives. The heart rate, respiratory rate, oxygen saturations, blood pressure, adequacy of pulmonary ventilation, and response to care were monitored throughout the procedure. The physical status of the patient was re-assessed after the procedure. After I obtained informed consent, the scope was passed under direct vision. Throughout the procedure, the patient's blood pressure, pulse, and oxygen saturations were monitored continuously. The Colonoscope was introduced through the anus and advanced to the sigmoid colon. The Endoscope was introduced through the and advanced to. The colonoscopy was extremely difficult due to restricted mobility of the colon. Successful completion of the procedure was aided by changing endoscopes. The patient tolerated the procedure well. The quality of the bowel preparation was good. Sigmoid colon were photographed. Scope In: 10:22:54 AM Scope Out: 10:56:19 AM Total Procedure Duration Time 0 hours 33 minutes 25 seconds Findings: The perianal and digital rectal examinations were normal. A benign-appearing, intrinsic severe stenosis measuring 6 cm (in length) was found in the sigmoid colon and was non-traversed. Impression: - Stricture in the sigmoid colon. - No specimens collected. Recommendation: - Discharge patient to home. - Resume previous diet. - Continue present medications. - CT scan of the abdomen pelvis with oral and IV contrast - Repeat colonoscopy to evaluate the response to therapy. Procedure Code(s): --- Professional --- 97512, Colonoscopy, flexible; diagnostic, including collection of specimen(s) by brushing or washing, when performed (separate procedure) CPT copyright 2021 [employer]. All rights reserved. The codes documented in this report are preliminary and upon medical billing coder review may be revised to meet current compliance requirements. Darrin Lozoya DO 02/12/2025 11:10:50 AM This report has been signed electronically. Number of Addenda: 0 Note Initiated On: 02/12/2025 10:21 AM 02/12/25 1111 Date Darrin Lozoya DO Cosigner Signature: Date (if indicated) CC: Dr. Kade Fry MD; Darrin Lozoya DO Date Dictated: 02/12/25 1021 Date Transcribed: Professional Wrestler: ABUNDIO Signed Normal [facility] EGD Reporton 02-12-2025 EGD Report [facility] Medical Records Department [address] [place] [address] EGD Report MR#: [id number] Acct: [id number] Name: ELISHA GODFREY Rep #: [id number] : 1955 69 From: Darrin Lozoya DO PCP: Dr. Kade Fry MD Status:REG [facility] Patient Name: Elisha Godfrey Procedure Date: 02/12/2025 10:04 AM Date of : 1955 Age: 69 Procedure: Upper GI endoscopy Indications: Functional Dyspepsia, Heartburn Providers: Darrin Lozoya DO Referring MD: Kade Fry MD Medicines: Monitored Anesthesia Care Patient Profile: This is a 69 year old female. Refer to note in patient chart for documentation of history and physical. Patient has symptoms of acute left lower quadrant abdominal pain, chronic epigastric abdominal pain and chronic heartburn. Complications: No immediate complications. Procedure: Pre-Anesthesia Assessment: - Prior to the procedure, a History and Physical was performed, and patient medications and allergies were reviewed. The patient is competent. The risks and benefits of the procedure and the sedation options and risks were discussed with the patient. All questions were answered and informed consent was obtained. Patient identification and proposed procedure were verified. Mental Status Examination: alert and oriented. Airway Examination: normal oropharyngeal airway and neck mobility. Respiratory Examination: clear to auscultation. CV Examination: normal. Prophylactic Antibiotics: The patient does not require prophylactic antibiotics. Prior Anticoagulants: The patient has taken no anticoagulant or antiplatelet agents except for NSAID medication. ASA Grade Assessment: II - A patient with mild systemic disease. After reviewing the risks and benefits, the patient was deemed in satisfactory condition to undergo the procedure. The anesthesia plan was to use monitored anesthesia care (MAC). Immediately prior to administration of medications, the patient was re-assessed for adequacy to receive sedatives. The heart rate, respiratory rate, oxygen saturations, blood pressure, adequacy of pulmonary ventilation, and response to care were monitored throughout the procedure. The physical status of the patient was re-assessed after the procedure. After obtaining informed consent, the endoscope was passed under direct vision. Throughout the procedure, the patient's blood pressure, pulse, and oxygen saturations were monitored continuously. The Colonoscope was introduced through the mouth, and advanced to the second part of duodenum. The upper GI endoscopy was accomplished without difficulty. The patient tolerated the procedure well. Scope In: 10:16:41 AM Scope Out: 10:21:15 AM Total Procedure Duration Time 0 hours 4 minutes 34 seconds Findings: The Z-line was irregular and was found 40 cm from the incisors. Biopsies were taken with a cold forceps for histology. Verification of patient identification for the specimen was done. Estimated blood loss was minimal. Patchy mildly erythematous mucosa without bleeding was found in the gastric body. Biopsies were taken with a cold forceps for histology. Verification of patient identification for the specimen was done. Estimated blood loss was minimal. Biopsies were taken with a cold forceps for Helicobacter pylori testing. Verification of patient identification for the specimen was done. Estimated blood loss was minimal. No gross lesions were noted in the second portion of the duodenum. Impression: - Z-line irregular, 40 cm from the incisors. Biopsied. - Erythematous mucosa in the gastric body. Biopsied. - No gross lesions in the second portion of the duodenum. Recommendation: - Discharge patient to home. - Resume previous diet. - Continue present medications. - Await pathology results. Procedure Code(s): --- Professional --- 64577, Esophagogastroduodenoscopy, flexible, transoral; with biopsy, single or multiple CPT copyright 2021 [employer]. All rights reserved. The codes documented in this report are preliminary and upon medical billing coder review may be revised to meet current compliance requirements. Darrin Lozoya DO 02/12/2025 11:05:56 AM This report has been signed electronically. Number of Addenda: 0 Note Initiated On: 02/12/2025 10:04 AM 02/12/25 1106 Date Darrin Lozoya DO Cosigner Signature: Date (if indicated) CC: Dr. Kade Fry MD; Darrin Lozoya DO Date Dictated: 02/12/25 1004 Date Transcribed: Professional Wrestler: ABUNDIO Signed [facility] Immunohistochemical Stainson 02-12-2025 Immunohistochemical Stains Patient Age/Sex Location Account Attending Physician ELISHA GODFREY 69/F EN [id number] Darrin Lozoya DO Specimen: [id number] Received: 02/12/25 Status: MARLENI Rowley Num: [id number] Spec Type: COLON BX Subm Dr: Darrin Lozoya DO HEADER OPERATION: Colonoscopy (unable to complete procedure past sigmoid) PRE-OP DIAGNOSIS: History of colon polyps, abdominal pain, GERD TISSUE SUBMITTED: A- Distal esophagus biopsy, B- Gastric body biopsy MICROSCOPIC DIAGNOSIS A. Distal esophagus, biopsy: - Benign squamous mucosa. - Columnar mucosa negative for goblet cell metaplasia. B. Stomach, body, biopsy: - Oxyntic mucosa with features of reactive gastropathy. - IHC negative for H.pylori organisms. MICROSCOPIC DESCRIPTION Slides are reviewed. All matched controls reacted appropriately. These tests were developed and their performance characteristics determined by [facility]. They may not have been cleared or approved by the U.S. Food and Drug Administration. The FDA has determined that such clearance or approval is not necessary. The above immunohistochemical/dualISH markers are viewed by the Pathologist. GROSS DESCRIPTION A. Received in fixative is one container labeled with the patient's name and designated Distal esophagus biopsy. The specimen consists of two irregular fragments of light rajput soft tissue, each measuring 0.3 cm. The specimen is totally submitted in one cassette. B. Received in fixative is one container labeled with the patient's name and designated Gastric body biopsy. The specimen consists of multiple irregular fragments of light rajput soft tissue that in aggregate measure 0.1 to 0.5 cm. The specimen is totally submitted in one cassette. Jose 02/12/2025 CPT:20569u5,71766 Patient Age/Sex Location Account Attending Physician ELISHA GODFREY 69/F EN [id number] Darrin Lozoya DO Signed (signature on file) Dr. Georgette Clement MD 02/28/25 1435 Normal [facility] Comment on above: Performed By: #### P [facility] ####[facility] [address] [facility] [place], [address] MR/POSTOP.ANEhakeem 02-12-2025 MR/POSTOP.[facility] Medical Records Department [address] [place] [address] Anesthesia Postop Eval I 02/12/25 1108 MR#: [id number] Acct: [id number] Name: ELISHA GODFREY Rep #: [id number] : 1955 69 From: Javier Cat PCP: Dr. Kade Fry MD Status:REG SDC Y Race: C Location: [place] [address] Anesthesia: Postop Eval I Current Vital Signs Temperature: 97.2 F Pulse Rate: 74 Blood Pressure: 112/55 Respiratory Rate: 16 Pulse Ox: 99 Oxygen Delivery Method: Room Air Assessment Airway patent: Yes Spontaneous unlabored respirations: Yes Mental status: Awake and Calm nausea: No Vomiting: No Anesthesia Complication: No Fluid Hydration Crystalloid volume administer (ml): 700 Total IV fluid infused: 700 Progress Note Anesthesia document: Postop Eval 1 completed: Yes 02/12/25 1109 Date Javier Ruelas Signature: Date CC: Signed Normal [facility] MR/[id number] 02-12-2025 MR/POSTOPAN2 [facility] Medical Records Department [address] [place] [address] Anesthesia Postop Eval II 02/12/25 1149 MR#: [id number] Acct: [id number] Name: ELISHA GODFREY Rep #: [id number] : 1955 69 From: Jimmy Gillis MD PCP: Dr. Kade Fry MD Status:REG SDC Y Race: C Location: [place] [address] Anesthesia Postop Eval I Sum Postop Eval Completion status Anesthesia document: Postop Eval 1 completed: Yes Anesthesia Postop Eval I Summary Anesthesia Postop Eval I Summary: Anesthesia Postop Eval I: Assessment Summary Airway patent Yes 02/12/25 11:09 [email or web address] Spontaneous unlabored Yes 02/12/25 11:09 [email or web address] respirations Mental status Awake,Calm 02/12/25 11:09 [email or web address] nausea No 02/12/25 11:09 [email or web address] Vomiting No 02/12/25 11:09 [email or web address] Anesthesia Postop Eval I: Fluid Summary Crystalloid volume administer 700 02/12/25 11:09 [email or web address] (ml) Colloids volume administered ( ml) Blood Product volume administered (ml) Total IV fluid infused 700 02/12/25 11:09 [email or web address] Anesthesia Postop Eval I: Summary Notes Anesthesia Complication No 02/12/25 11:09 [email or web address] Anesthesia Complication Comment: Post-operative progress note Anesthesia: Postop Eval II Evaluation Mental status: Awake and Calm Pain Level: 0 nausea: No Vomiting: No Complications Anesthesia Complication: No 02/12/25 1149 Date [facility] Date CC: Signed Normal [facility] Absolute lymphocyte countOrd ered By: Dina Ferrer on 12-26-2024 Lymphocytes Auto (Unsp spec) [#/Vol] 1.02 10*3/uL 0.83-4.51 [facility] Absolute neutrophil countOrd ered By: Dina Ferrer on 12-26-2024 Neutrophils (Bld) [#/Vol] 2.0 10*3/uL 2.0-7.7 [facility] Anion gap in Serum or Plasma Ordered By: Dina Ferrer on 12-26-2024 Anion gap [Moles/Vol] 10 mmol/L 5-15 [facility] Automated lymphocyte count a s percentage of total leukocytesOrdered By: Dina Ferrer on 12-26-2024 Lymphocytes/100 WBC Auto (Unsp spec) 29.9 % 19-41 [facility] BUN/creatinine ratioOrdered By: Dina Ferrer on 12-26-2024 Urea nitrogen/Creatinine [Mass ratio] 22.8 mg/mg High 10-20 [facility] Basophil percentageOrdered B y: Dina Ferrer on 12-26-2024 Basophils/100 WBC (Bld) 0.6 % 0-1 [facility] Bilirubin, totalOrdered By: Dina Ferrer on 12-26-2024 Bilirubin [Mass/Vol] 0.68 mg/dL 0.00-1.30 [facility] CBC W/Diff, Automatedon Absolute Lymph 1.02 X10 3/uL Normal 0.83-4.51 [facility] Comment on above: Performed By: #### L 100.0100, L500.4050 ####[facility] [address] [place], [address] Absolute Neut 2.0 X10 3/uL Normal 2.0-7.7 [facility] Comment on above: Performed By: #### L 100.0100, L500.4050 ####[facility] [address] [place], [address] Basophils/100 WBC (Bld) 0.6 % Normal 0-1 [facility] Comment on above: Performed By: #### L 100.0100, L500.4050 ####[facility] [address] [place], [address] Eosinophils/100 WBC (Bld) 3.2 % Normal 0-5 [facility] Comment on above: Performed By: #### L 100.0100, L500.4050 ####[facility] [address] [place], [address] Erythrocyte distribution width (RBC) [Ratio] 12.7 % Normal 11.6-14.6 [facility] Comment on above: Performed By: #### L 100.0100, L500.4050 ####[facility] [address] [place], [address] Hematocrit (Bld) [Volume fraction] 38.7 % Normal 37-47 [facility] Comment on above: Performed By: #### L 100.0100, L500.4050 ####[facility] [address] [place], [address] Hemoglobin (Bld) [Mass/Vol] 13.2 g/dL Normal 12.0-15.0 [facility] Comment on above: Performed By: #### L 100.0100, L500.4050 ####[facility] [address] [place], [address] IG% 0.300 Normal 0.0-0.9 [facility] Comment on above: Result Comment: IG% - Immature Granulocytes (promyelocytes, myelocytes and metamyelocytes) > 1% indicates that a LEFT SHIFT is Present. Performed By: #### L 100.0100, L500.4050 ####[facility] [address] [place], [address] Lymphocytes/100 WBC (Bld) 29.9 % Normal 19-41 [facility] Comment on above: Performed By: #### L 100.0100, L500.4050 ####[facility] [address] [place], [address] MCH (RBC) [Entitic mass] 35.4 pg High 27.0-32.0 [facility] Comment on above: Performed By: #### L 100.0100, L500.4050 ####[facility] [address] [place], [address] MCHC (RBC) [Mass/Vol] 34.1 g/dL Normal 32-36 [facility] Comment on above: Performed By: #### L 100.0100, L500.4050 ####[facility] [address] [place], [address] MCV (RBC) [Entitic vol] 103.8 fL High 81-99 [facility] Comment on above: Performed By: #### L 100.0100, L500.4050 ####[facility] [address] [place], [address] Monocytes/100 WBC (Bld) 8.2 % Normal 0-10 [facility] Comment on above: Performed By: #### L 100.0100, L500.4050 ####[facility] [address] [place], [address] Neutrophils/100 WBC (Bld) 57.8 % Normal 47-70 [facility] Comment on above: Performed By: #### L 100.0100, L500.4050 ####[facility] [address] [place], [address] Nucleated RBC (Bld) [#/Vol] 0 10*3/uL Normal 0-5 [facility] Comment on above: Performed By: #### L 100.0100, L500.4050 ####[facility] [address] [place], [address] Platelet mean volume (Bld) [Entitic vol] 10.2 fL Normal 6.2-12.0 [facility] Comment on above: Performed By: #### L 100.0100, L500.4050 ####[facility] [address] [place], [address] Platelets (Bld) [#/Vol] 198 10*3/uL Normal 150-450 [facility] Comment on above: Performed By: #### L 100.0100, L500.4050 ####[facility] [address] [place], [address] RBC (Bld) [#/Vol] 3.73 10*6/uL Low 4.2-5.4 [facility] Comment on above: Performed By: #### L 100.0100, L500.4050 ####[facility] [address] [place], [address] RDW SD 48.5 fl High 35.1-43.9 [facility] Comment on above: Performed By: #### L 100.0100, L500.4050 ####[facility] [address] [place], [address] WBC (Bld) [#/Vol] 3.4 10*3/uL Low 4.4-11.0 [facility] Comment on above: Performed By: #### L 100.0100, L500.4050 ####[facility] [address] [place], [address] Carbon dioxide, total [Moles /volume] in Central venous bloodOrdered By: Dina Ferrer on 12-26-2024 CO2 [Moles/Vol] 27.8 mmol/L 21.0-32.0 [facility] Chloride assayOrdered By: Ba Ferrer on 12-26-2024 Chloride [Moles/Vol] 103 mmol/L 98-108 [facility] Comprehensive Metabolic Prof ilon 12-26-2024 Albumin [Mass/Vol] 4.3 g/dL Normal 3.4-4.8 [facility] Comment on above: Performed By: #### L 100.0100, L500.4050 ####[facility] [address] [place], [address] Albumin/Globulin [Mass ratio] 1.7 {ratio} Normal 0.9-2.4 [facility] Comment on above: Performed By: #### L 100.0100, L500.4050 ####[facility] [address] [place], [address] ALK PHOS 89 U/L Normal 35-104 [facility] Comment on above: Performed By: #### L 100.0100, L500.4050 ####[facility] [address] [place], [address] ALT [Catalytic activity/Vol] 10 U/L Normal <=34 [facility] Comment on above: Performed By: #### L 100.0100, L500.4050 ####[facility] [address] [place], [address] AST [Catalytic activity/Vol] 25 U/L Normal <=31 [facility] Comment on above: Performed By: #### L 100.0100, L500.4050 ####[facility] [address] [place], [address] Bilirubin [Mass/Vol] 0.68 mg/dL Normal 0.00-1.30 [facility] Comment on above: Performed By: #### L 100.0100, L500.4050 ####[facility] [address] [place], [address] BUN/CRE 22.8 RATIO High 10-20 [facility] Comment on above: Performed By: #### L 100.0100, L500.4050 ####[facility] [address] [place], [address] Calcium [Mass/Vol] 9.6 mg/dL Normal 7.6-11.0 [facility] Comment on above: Performed By: #### L 100.0100, L500.4050 ####[facility] [address] [place], [address] Chloride [Moles/Vol] 103 mmol/L Normal 98-108 [facility] Comment on above: Performed By: #### L 100.0100, L500.4050 ####[facility] [address] [place], [address] CO2 [Moles/Vol] 27.8 mmol/L Normal 21.0-32.0 [facility] Comment on above: Performed By: #### L 100.0100, L500.4050 ####[facility] [address] [place], [address] Creatinine [Mass/Vol] 0.80 mg/dL Normal 0.70-1.20 [facility] Comment on above: Performed By: #### L 100.0100, L500.4050 ####[facility] [address] [place], [address] GAP 10 Normal 5-15 [facility] Comment on above: Performed By: #### L 100.0100, L500.4050 ####[facility] [address] [place], [address] GFR/1.73 sq M.predicted among non-blacks MDRD (S/P/Bld) [Vol rate/Area] 79 mL/min/{1.73_m2} Normal >60 [facility] Comment on above: Result Comment: mL/m in/1.73m2 CKD-EPI Creatinine Equation (2020) Performed By: #### L 100.0100, L500.4050 ####[facility] [address] [place], [address] Globulin (S) [Mass/Vol] 2.6 g/dL Normal 2.2-4.2 [facility] Comment on above: Performed By: #### L 100.0100, L500.4050 ####[facility] [address] [place], [address] Glucose [Mass/Vol] 110 mg/dL High 70-99 [facility] Comment on above: Performed By: #### L 100.0100, L500.4050 ####[facility] [address] [place], [address] Potassium [Moles/Vol] 4.3 mmol/L Normal 3.3-5.1 [facility] Comment on above: Performed By: #### L 100.0100, L500.4050 ####[facility] [address] [place], [address] Sodium [Moles/Vol] 141 mmol/L Normal 133-145 [facility] Comment on above: Performed By: #### L 100.0100, L500.4050 ####[facility] [address] [place], [address] T PROT 6.9 g/dL Normal 5.9-8.4 [facility] Comment on above: Performed By: #### L 100.0100, L500.4050 ####[facility] [address] [place], [address] Urea nitrogen [Mass/Vol] 18 mg/dL Normal 4-19 [facility] Comment on above: Performed By: #### L 100.0100, L500.4050 ####[facility] [address] [place], [address] Eosinophil percentageOrdered By: Dina Ferrer on 12-26-2024 Eosinophils/100 WBC (Bld) 3.2 % 0-5 [facility] Erythrocyte distribution wid th ratioOrdered By: Dina Ferrer on 12-26-2024 Erythrocyte distribution width (RBC) [Ratio] 12.7 % 11.6-14.6 [facility] Erythrocyte distribution wid th standard deviationOrdered By: Dina Ferrer on 12-26-2024 Erythrocyte distribution width (RBC) [Ratio] 48.5 fl High 35.1-43.9 [facility] Glomerular filtration rate ( GFR) estimation/1.73 sq m using serum, plasma, or whole bOrdered By: Dina Ferrer on 12-26-2024 GFR/1.73 sq M.predicted among non-blacks MDRD (S/P/Bld) [Vol rate/Area] 79 mL/min/{1.73_m2} >60 [facility] Comment on above: mL/min/1.73m2 CKD-EP I Creatinine Equation (2020) Hematocrit Auto (Bld) [Volum e fraction]Ordered By: Dina Ferrer on 12-26-2024 Hematocrit (Bld) [Volume fraction] 38.7 % 37-47 [facility] Hemoglobin measurementOrdere d By: Dina Ferrer on 12-26-2024 Hemoglobin (Bld) [Mass/Vol] 13.2 g/dL 12.0-15.0 [facility] Immature granulocytes/100 WB C Auto (Bld)Ordered By: Dina Ferrer on 12-26-2024 Immature granulocytes/100 WBC (Bld) 0.300 % 0.0-0.9 [facility] Comment on above: IG% - Immature Granu locytes (promyelocytes, myelocytes and metamyelocytes) > 1% indicates that a LEFT SHIFT is Present. Laboratory - Chemistry and C hemistry - challengeOrdered By: Dina Ferrer on 12-26-2024 AST [Catalytic activity/Vol] 25 U/L <32 [facility] MCV (mean corpuscular volume ) determinationOrdered By: Dina Ferrer on 12-26-2024 MCV (RBC) [Entitic vol] 103.8 fL High 81-99 [facility] Mean corpuscular hemoglobin (MCH) determinationOrdered By: Dina Ferrer on 12-26-2024 MCH (RBC) [Entitic mass] 35.4 pg High 27.0-32.0 [facility] Mean corpuscular hemoglobin concentration (MCHC) determinationOrdered By: Dina Ferrer on 12-26-2024 MCHC (RBC) [Mass/Vol] 34.1 g/dL 32-36 [facility] Mean platelet volume determi nationOrdered By: Dina Ferrer on 12-26-2024 Platelet mean volume (Bld) [Entitic vol] 10.2 fL 6.2-12.0 [facility] Monocyte percentageOrdered B y: Dina Ferrer on 12-26-2024 Monocytes/100 WBC (Bld) 8.2 % 0-10 [facility] Neutrophil percentageOrdered By: Dina Ferrer on 12-26-2024 Neutrophils/100 WBC (Bld) 57.8 % 47-70 [facility] Nucleated red blood cell per centageOrdered By: Dina Ferrer on 12-26-2024 Nucleated RBC/100 WBC (Bld) [Ratio] 0 % 0-5 [facility] Platelet countOrdered By: Ba Ferrer on 12-26-2024 Platelets (Bld) [#/Vol] 198 10*3/uL 150-450 [facility] Potassium measurement (mass/ volume)Ordered By: Dina Ferrer on 12-26-2024 Potassium (Unsp spec) [Mass/Vol] 4.3 mmol/L 3.3-5.1 [facility] RBC Auto (Bld) [#/Vol]Ordere d By: Dina Ferrer on 12-26-2024 RBC (Bld) [#/Vol] 3.73 10*6/uL Low 4.2-5.4 [facility] Serum creatinine measurement (mass/volume)Ordered By: Dina Ferrer on 12-26-2024 Creatinine [Mass/Vol] 0.80 mg/dL 0.70-1.20 [facility] Serum globulin measurementOr dered By: Dina Ferrer on 12-26-2024 Globulin (S) [Mass/Vol] 2.6 g/dL 2.2-4.2 [facility] Serum glucose measurement (m ass/volume)Ordered By: Dina Ferrer on 12-26-2024 Glucose [Mass/Vol] 110 mg/dL High 70-99 [facility] Serum or plasma alanine abraham otransferase (ALT) measurementOrdered By: Dina Ferrer on 12-26-2024 ALT [Catalytic activity/Vol] 10 U/L <35 [facility] Serum or plasma albumin shira urement (mass/volume)Ordered By: Dina Ferrer on 12-26-2024 Albumin [Mass/Vol] 4.3 g/dL 3.4-4.8 [facility] Serum or plasma albumin/glob ulin mass ratioOrdered By: Dina Ferrer on 12-26-2024 Albumin/Globulin [Mass ratio] 1.7 {ratio} 0.9-2.4 [facility] Serum or plasma alkaline ramone sphatase measurementOrdered By: Dina Ferrer on 12-26-2024 ALP [Catalytic activity/Vol] 89 U/L 35-104 [facility] Serum or plasma calcium shira urement (mass/volume)Ordered By: Dina Ferrer on 12-26-2024 Calcium [Mass/Vol] 9.6 mg/dL 7.6-11.0 [facility] Serum or plasma urea nitroge n measurement (mass/volume)Ordered By: Dina Ferrer on 12-26-2024 Urea nitrogen [Mass/Vol] 18 mg/dL 4-19 [facility] Sodium levelOrdered By: Shaila Ferrer on 12-26-2024 Sodium [Moles/Vol] 141 mmol/L 133-145 [facility] Total proteinOrdered By: Issac Ferrer on 12-26-2024 Protein [Mass/Vol] 6.9 g/dL 5.9-8.4 [facility] White blood cell (WBC) count Ordered By: Dina Ferrer on 12-26-2024 WBC (Bld) [#/Vol] 3.4 10*3/uL Low 4.4-11.0 [facility] Gastric Emptying Studyon Gastric Emptying Study [facility] Imaging Services [address] [place] [id number] Gastric Emptying Study MR#: [id number] Acct: [id number] Name: ELISHA GODFREY Rep #: [id number] : 1955 F 69 From: Sammy Hercules MD PCP: Dr. Kade Fry MD Status: DEP CLI Study: Gastric Emptying Study Date of Exam: 12/18/24 Exam# [id number] Ordering Dr: Darrin Lozoya DO ADDENDUM by Dr. Chetan Pierre MD on 02/20/25 at 0118 1 hr gastric with oatmeal Reading Location: [id number] 02/20/25 0119 Date cc: Dr. Kade Fry MD; Darrin Lozoya DO * Signed PROCEDURE: GASTRIC EMPTYING STUDY 12/18/2024 REASON FOR EXAM: BLOATING COMPARISON: None. TECHNIQUE: The patient ingested a standard meal of cooked egg whites mixed with , toasted white bread, jelly, and water. Total time taken to ingest the meal was minutes. Approximately % of the meal was ingested. There was no vomiting postprandially. Anterior and posterior planar images of the upper abdomen were obtained for 1 minute immediately following the meal at 1h, 2h and 4h if more than 10% of the activity persisted within the stomach. Regions of interest were drawn, and a geometric mean was used to calculate a hsjw-hezhizzv-naxkf. Fasting Blood Glucose (if diabetic): mg/dL. Medications taken in the past 24 hours that may affect gastric emptying: None RADIOPHARMACEUTICAL: 1 mCi of technetium 99 M sulfur colloid FINDINGS: Percent activity remaining in stomach: 1 hour 35 % (normal 37-90%) 2 hours: % (normal 30-60%) 4 hours: % (normal 0-10%) NM/Gastric Emptying Study IMPRESSION: Normal gastric emptying Reading Location: [id number] CC: Dr. Kade Fry MD; Darrin Lozoya DO Professional Wrestler: Signed Normal [facility] DBT Breast - right diagnosti c for implanton 12-05-2024 IMPRESSION: The 0.5 cm asymmetry in the right breast is probably benign. A follow-up in 6 months is recommended. BI-RADS Category 3: Probably Benign RISK: Based on the Tyrer-Cuzick (TC) risk assessment model, this patient has a 2.8% lifetime risk of developing breast cancer, meaning they are at average risk for developing breast cancer. However, this is only an estimate based on available history provided on the patient's questionnaire. We encourage all patients to talk with their providers about these results, further recommendations for managing breast health, and appropriate supplemental screening options if the patient has dense breast tissue. Interpreting Radiologist: Azra De M.D. Electronically signed on: 12/05/2024 Professional Wrestler: RUI Transcribe Date/Time: Dec 05 2024 1:03P Dictated by: AZRA DE MD This examination was interpreted and the report reviewed and electronically signed by: AZRA DE MD on Dec 05 2024 1:56PM [facility] DIVISION OF RADIOLOGY * * *Final Report* * * DATE OF EXAM: Dec 05 2024 1:21PM [facility] 0629 - [facility] DIAG W IRISH RT / PROCEDURE REASON: Abnormal mammogram * * * * Physician Interpretation * * * * RESULT: [place] [address] #[id number] - LEIGH DIAG W IRISH RT #[id number] - [facility] BREAST LTD RT HISTORY: 69 year-old patient seen for diagnostic evaluation of the finding(s) described on prior mammogram in the right breast. Patient states no personal history of breast cancer. The patient has a family history of breast cancer. COMPARISON STUDIES: The present examination has been compared to prior imaging studies dated 09/20/2020 (mammogram), 10/07/2021 (mammogram), 11/06/2022 (mammogram), 11/12/2023 (mammogram) and 11/13/2024 (mammogram). MAMMOGRAM TECHNIQUE: The study was acquired using full field digital technology and interpreted from soft copy. Digital Breast Tomosynthesis (DBT) images were obtained and used to assist in the interpretation of this examination. MAMMOGRAM FINDINGS: The breast is almost entirely fatty. There is an asymmetry measuring 0.5 cm with circumscribed margins in the right breast. This is best visualized on tomosynthesis MLO view slice # 40. ULTRASOUND TECHNIQUE: Targeted ultrasound of the indicated area was performed. Tineo scale images were saved. ULTRASOUND FINDINGS: No abnormality is seen at the site of mammographic concern. DIVISION OF RADIOLOGY Provider, [facility] [place] - 12/05/2024 * * *Final Report* * * DATE OF EXAM: Dec 05 2024 1:21PM [facility] 0629 - [facility] DIAG W IRISH RT / PROCEDURE REASON: Abnormal mammogram * * * * Physician Interpretation * * * * RESULT: [address] [address] [place] [address] #[id number] - LEIGH DIAG W IRISH RT #[id number] - [facility] US BREAST LTD RT HISTORY: 69 year-old patient seen for diagnostic evaluation of the finding(s) described on prior mammogram in the right breast. Patient states no personal history of breast cancer. The patient has a family history of breast cancer. COMPARISON STUDIES: The present examination has been compared to prior imaging studies dated 09/20/2020 (mammogram), 10/07/2021 (mammogram), 11/06/2022 (mammogram), 11/12/2023 (mammogram) and 11/13/2024 (mammogram). MAMMOGRAM TECHNIQUE: The study was acquired using full field digital technology and interpreted from soft copy. Digital Breast Tomosynthesis (DBT) images were obtained and used to assist in the interpretation of this examination. MAMMOGRAM FINDINGS: The breast is almost entirely fatty. There is an asymmetry measuring 0.5 cm with circumscribed margins in the right breast. This is best visualized on tomosynthesis MLO view slice # 40. ULTRASOUND TECHNIQUE: Targeted ultrasound of the indicated area was performed. Tineo scale images were saved. ULTRASOUND FINDINGS: No abnormality is seen at the site of mammographic concern. IMPRESSION IMPRESSION: The 0.5 cm asymmetry in the right breast is probably benign. A follow-up in 6 months is recommended. BI-RADS Category 3: Probably Benign RISK: Based on the Tyrer-Cuzick (TC) risk assessment model, this patient has a 2.8% lifetime risk of developing breast cancer, meaning they are at average risk for developing breast cancer. However, this is only an estimate based on available history provided on the patient's questionnaire. We encourage all patients to talk with their providers about these results, further recommendations for managing breast health, and appropriate supplemental screening options if the patient has dense breast tissue. Interpreting Radiologist: Azra De M.D. Electronically signed on: 12/05/2024 Professional Wrestler: RUI Transcribe Date/Time: Dec 05 2024 1:03P Dictated by: AZRA DE MD This examination was interpreted and the report reviewed and electronically signed by: AZRA DE MD on Dec 05 2024 1:56PM EST [facility] LEIGH DIAG W IRISH RTon 025 LEIGH DIAG W IRISH RT * * *Final Report* * * DATE OF EXAM: Dec 05 2024 1:21PM [facility] 0629 - LEIGH DIAG W IRISH RT / PROCEDURE REASON: Abnormal mammogram * * * * Physician Interpretation * * * * RESULT: [place] [address] #[id number] - LEIGH DIAG W IRISH RT #[id number] - LEIGH US BREAST LTD RT HISTORY: 69 year-old patient seen for diagnostic evaluation of the finding(s) described on prior mammogram in the right breast. Patient states no personal history of breast cancer. The patient has a family history of breast cancer. COMPARISON STUDIES: The present examination has been compared to prior imaging studies dated 09/20/2020 (mammogram), 10/07/2021 (mammogram), 11/06/2022 (mammogram), 11/12/2023 (mammogram) and 11/13/2024 (mammogram). MAMMOGRAM TECHNIQUE: The study was acquired using full field digital technology and interpreted from soft copy. Digital Breast Tomosynthesis (DBT) images were obtained and used to assist in the interpretation of this examination. MAMMOGRAM FINDINGS: The breast is almost entirely fatty. There is an asymmetry measuring 0.5 cm with circumscribed margins in the right breast. This is best visualized on tomosynthesis MLO view slice # 40. ULTRASOUND TECHNIQUE: Targeted ultrasound of the indicated area was performed. Tineo scale images were saved. ULTRASOUND FINDINGS: No abnormality is seen at the site of mammographic concern. IMPRESSION: The 0.5 cm asymmetry in the right breast is probably benign. A follow-up in 6 months is recommended. BI-RADS Category 3: Probably Benign RISK: Based on the Tyrer-Cuzick (TC) risk assessment model, this patient has a 2.8% lifetime risk of developing breast cancer, meaning they are at average risk for developing breast cancer. However, this is only an estimate based on available history provided on the patient's questionnaire. We encourage all patients to talk with their providers about these results, further recommendations for managing breast health, and appropriate supplemental screening options if the patient has dense breast tissue. Interpreting Radiologist: Azra De M.D. Electronically signed on: 12/05/2024 Professional Wrestler: RUI Transcribe Date/Time: Dec 05 2024 1:03P Dictated by: AZRA DE MD This examination was interpreted and the report reviewed and electronically signed by: AZRA DE MD on Dec 05 2024 1:56PM EST [id number] Normal [facility] US BREAST LTD RTon 12-05 [facility] [email or web address] BREAST LTD RT * * *Final Report* * * DATE OF EXAM: Dec 05 2024 1:48PM [facility] 0594 - [facility] [email or web address] BREAST [place] RT / PROCEDURE REASON: Abnormal mammogram * * * * Physician Interpretation * * * * [place] [address] #[id number] - [facility] RAMON W IRISH RT #[id number] - [facility] [email or web address] BREAST LTD RT HISTORY: 69 year-old patient seen for diagnostic evaluation of the finding(s) described on prior mammogram in the right breast. Patient states no personal history of breast cancer. The patient has a family history of breast cancer. COMPARISON STUDIES: The present examination has been compared to prior imaging studies dated 09/20/2020 (mammogram), 10/07/2021 (mammogram), 11/06/2022 (mammogram), 11/12/2023 (mammogram) and 11/13/2024 (mammogram). MAMMOGRAM TECHNIQUE: The study was acquired using full field digital technology and interpreted from soft copy. Digital Breast Tomosynthesis (DBT) images were obtained and used to assist in the interpretation of this examination. MAMMOGRAM FINDINGS: The breast is almost entirely fatty. There is an asymmetry measuring 0.5 cm with circumscribed margins in the right breast. This is best visualized on tomosynthesis MLO view slice # 40. ULTRASOUND TECHNIQUE: Targeted ultrasound of the indicated area was performed. Tineo scale images were saved. ULTRASOUND FINDINGS: No abnormality is seen at the site of mammographic concern. IMPRESSION: The 0.5 cm asymmetry in the right breast is probably benign. A follow-up in 6 months is recommended. BI-RADS Category 3: Probably Benign RISK: Based on the Tyrer-Cuzick (TC) risk assessment model, this patient has a 2.8% lifetime risk of developing breast cancer, meaning they are at average risk for developing breast cancer. However, this is only an estimate based on available history provided on the patient's questionnaire. We encourage all patients to talk with their providers about these results, further recommendations for managing breast health, and appropriate supplemental screening options if the patient has dense breast tissue. Interpreting Radiologist: Azra De M.D. Electronically signed on: 12/05/2024 Professional Wrestler: RUI Transcribe Date/Time: Dec 05 2024 1:28P Dictated by : AZRA DE MD This examination was interpreted and the report reviewed and electronically signed by: AZRA DE MD on Dec 05 2024 1:56PM EST [id number] Normal [facility] No Panel InformationOrdered By: [facility] Provider on 12-05-2024 [facility] No Panel Informationon 12-05 Radiology Study observation (narrative) [facility] US Breast - right limitedon 12-05-2024 IMPRESSION: The 0.5 cm asymmetry in the right breast is probably benign. A follow-up in 6 months is recommended. BI-RADS Category 3: Probably Benign RISK: Based on the Tyrer-Cuzick (TC) risk assessment model, this patient has a 2.8% lifetime risk of developing breast cancer, meaning they are at average risk for developing breast cancer. However, this is only an estimate based on available history provided on the patient's questionnaire. We encourage all patients to talk with their providers about these results, further recommendations for managing breast health, and appropriate supplemental screening options if the patient has dense breast tissue. Interpreting Radiologist: Azra De M.D. Electronically signed on: 12/05/2024 Professional Wrestler: RUI Transcrimoe Date/Time: Dec 05 2024 1:28P Dictated by : AZRA DE MD This examination was interpreted and the report reviewed and electronically signed by: AZRA DE MD on Dec 05 2024 1:56PM [facility] DIVISION OF RADIOLOGY * * *Final Report* * * DATE OF EXAM: Dec 05 2024 1:48PM [facility] 0594 - [facility] [email or web address] BREAST LTD RT / PROCEDURE REASON: Abnormal mammogram * * * * Physician Interpretation * * * * [place] [address] #[id number] - [facility] DIAG W IRISH RT #[id number] - [facility] [email or web address] BREAST LTD RT HISTORY: 69 year-old patient seen for diagnostic evaluation of the finding(s) described on prior mammogram in the right breast. Patient states no personal history of breast cancer. The patient has a family history of breast cancer. COMPARISON STUDIES: The present examination has been compared to prior imaging studies dated 09/20/2020 (mammogram), 10/07/2021 (mammogram), 11/06/2022 (mammogram), 11/12/2023 (mammogram) and 11/13/2024 (mammogram). MAMMOGRAM TECHNIQUE: The study was acquired using full field digital technology and interpreted from soft copy. Digital Breast Tomosynthesis (DBT) images were obtained and used to assist in the interpretation of this examination. MAMMOGRAM FINDINGS: The breast is almost entirely fatty. There is an asymmetry measuring 0.5 cm with circumscribed margins in the right breast. This is best visualized on tomosynthesis MLO view slice # 40. ULTRASOUND TECHNIQUE: Targeted ultrasound of the indicated area was performed. Tineo scale images were saved. ULTRASOUND FINDINGS: No abnormality is seen at the site of mammographic concern. DIVISION OF RADIOLOGY Provider, [facility] - 12/05/2024 * * *Final Report* * * DATE OF EXAM: Dec 05 2024 1:48PM [facility] 0594 - [facility] [email or web address] BREAST LTD RT / PROCEDURE REASON: Abnormal mammogram * * * * Physician Interpretation * * * * [place] [address] #[id number] - LEIGH RAMON W IRISH RT #[id number] - [facility] US BREAST LTD RT HISTORY: 69 year-old patient seen for diagnostic evaluation of the finding(s) described on prior mammogram in the right breast. Patient states no personal history of breast cancer. The patient has a family history of breast cancer. COMPARISON STUDIES: The present examination has been compared to prior imaging studies dated 09/20/2020 (mammogram), 10/07/2021 (mammogram), 11/06/2022 (mammogram), 11/12/2023 (mammogram) and 11/13/2024 (mammogram). MAMMOGRAM TECHNIQUE: The study was acquired using full field digital technology and interpreted from soft copy. Digital Breast Tomosynthesis (DBT) images were obtained and used to assist in the interpretation of this examination. MAMMOGRAM FINDINGS: The breast is almost entirely fatty. There is an asymmetry measuring 0.5 cm with circumscribed margins in the right breast. This is best visualized on tomosynthesis MLO view slice # 40. ULTRASOUND TECHNIQUE: Targeted ultrasound of the indicated area was performed. Tineo scale images were saved. ULTRASOUND FINDINGS: No abnormality is seen at the site of mammographic concern. IMPRESSION IMPRESSION: The 0.5 cm asymmetry in the right breast is probably benign. A follow-up in 6 months is recommended. BI-RADS Category 3: Probably Benign RISK: Based on the Tyrer-Cuzick (TC) risk assessment model, this patient has a 2.8% lifetime risk of developing breast cancer, meaning they are at average risk for developing breast cancer. However, this is only an estimate based on available history provided on the patient's questionnaire. We encourage all patients to talk with their providers about these results, further recommendations for managing breast health, and appropriate supplemental screening options if the patient has dense breast tissue. Interpreting Radiologist: Azra De M.D. Electronically signed on: 12/05/2024 Professional Wrestler: RUI Transcribe Date/Time: Dec 05 2024 1:28P Dictated by : AZRA DE MD This examination was interpreted and the report reviewed and electronically signed by: AZRA DE MD on Dec 05 2024 1:56PM EST [facility] Anti-Parietal Cell AB, [facility] 11-30-2024 ANTIPARIET CELL 1.4 Units Normal 0.0-20.0 [facility] Comment on above: Result Comment: Nega tive 0.0 - 20.0 Equivocal 20.1 - 24.9 Positive >24.9 Parietal Cell Antibodies are found in 90% of patients with pernicious anemia and 30% of first degree relatives with pernicious anemia. Performed By: #### L 501.9520, L3100.3425, L101.9900, L3410.2350, L3410.1000, L501.6710, L503.0106, L504.2610, L3300.1800, L3410.0900 ####[facility] [address] [place], [place], [id number] Celiac AB,Comprehensiveon ANTIGLIADIN IGA 8 units Normal 0-19 [facility] Comment on above: Result Comment: Nega tive 0 - 19 Weak Positive 20 - 30 Moderate to Strong Positive >30 Performed By: #### L 501.9520, L3100.3425, L101.9900, L3410.2350, L3410.1000, L501.6710, L503.0106, L504.2610, L3300.1800, L3410.0900 ####[facility] [address] [place], [address] ANTIGLIADIN IGG 5 units Normal 0-19 [facility] Comment on above: Result Comment: Nega tive 0 - 19 Weak Positive 20 - 30 Moderate to Strong Positive >30 Performed By: #### L 501.9520, L3100.3425, L101.9900, L3410.2350, L3410.1000, L501.6710, L503.0106, L504.2610, L3300.1800, L3410.0900 ####[facility] [address] [place], [address] ENDOMYSIAL IGA Negative Normal Negative [facility] Comment on above: Performed By: #### L 501.9520, L3100.3425, L101.9900, L3410.2350, L3410.1000, L501.6710, L503.0106, L504.2610, L3300.1800, L3410.0900 ####[facility] [address] [place], [address] tTG IGA 3 U/mL Normal 0-3 [facility] Comment on above: Result Comment: Nega tive 0 - 3 Weak Positive 4 - 10 Positive >10 Tissue Transglutaminase (tTG) has been identified as the endomysial antigen. Studies have demonstr- ated that endomysial IgA antibodies have over 99% specificity for gluten sensitive enteropathy. Performed By: #### L 501.9520, L3100.3425, L101.9900, L3410.2350, L3410.1000, L501.6710, L503.0106, L504.2610, L3300.1800, L3410.0900 ####[facility] [address] [place], [address] tTG IGG 4 U/mL Normal 0-5 [facility] Comment on above: Result Comment: Nega tive 0 - 5 Weak Positive 6 - 9 Positive >9 Performed By: #### L 501.9520, L3100.3425, L101.9900, L3410.2350, L3410.1000, L501.6710, L503.0106, L504.2610, L3300.1800, L3410.0900 ####[facility] [address] [place], [address] Gastrin, Serumon 11-30-2024 GASTRIN 665 pg/mL High 0-115 [facility] Comment on above: Result Comment: [facility] [employer] 2000 Immunochemiluminometric assay (ICMA) Values obtained with different assay methods or kits cannot be used interchangeably. Results cannot be interpreted as absolute evidence of the presence or absence of malignant disease. Performed By: #### L 501.9520, L3100.3425, L101.9900, L3410.2350, L3410.1000, L501.6710, L503.0106, L504.2610, L3300.1800, L3410.0900 ####[facility] [address] [place], [address] DI + Protein Elect, Serumon 11-30-2024 Albumin [Mass/Vol] 4.0 g/dL Normal 2.9-4.4 [facility] Comment on above: Order Comment: N Performed By: #### L 501.9520, L3100.3425, L101.9900, L3410.2350, L3410.1000, L501.6710, L503.0106, L504.2610, L3300.1800, L3410.0900 ####[facility] [address] [place], [address] Albumin/Globulin [Mass ratio] 1.4 {ratio} Normal 0.7-1.7 [facility] Comment on above: Order Comment: N Performed By: #### L 501.9520, L3100.3425, L101.9900, L3410.2350, L3410.1000, L501.6710, L503.0106, L504.2610, L3300.1800, L3410.0900 ####[facility] [address] [place], [address] HKOAA-6-FNSB 0.3 g/dL Normal 0.0-0.4 [facility] Comment on above: Order Comment: N Performed By: #### L 501.9520, L3100.3425, L101.9900, L3410.2350, L3410.1000, L501.6710, L503.0106, L504.2610, L3300.1800, L3410.0900 ####[facility] [address] [place], [address] XHDQL-0-TIWW 0.7 g/dL Normal 0.4-1.0 [facility] Comment on above: Order Comment: N Performed By: #### L 501.9520, L3100.3425, L101.9900, L3410.2350, L3410.1000, L501.6710, L503.0106, L504.2610, L3300.1800, L3410.0900 ####[facility] [address] [place], [address] BETA GLOBULIN 0.9 g/dL Normal 0.7-1.3 [facility] Comment on above: Order Comment: N Performed By: #### L 501.9520, L3100.3425, L101.9900, L3410.2350, L3410.1000, L501.6710, L503.0106, L504.2610, L3300.1800, L3410.0900 ####[facility] [address] [place], [address] GAMMA GLOBULIN 1.2 g/dL Normal 0.4-1.8 [facility] Comment on above: Order Comment: N Performed By: #### L 501.9520, L3100.3425, L101.9900, L3410.2350, L3410.1000, L501.6710, L503.0106, L504.2610, L3300.1800, L3410.0900 ####[facility] [address] [place], [address] Globulin (S) [Mass/Vol] 3.0 g/dL Normal 2.2-3.9 [facility] Comment on above: Order Comment: N Performed By: #### L 501.9520, L3100.3425, L101.9900, L3410.2350, L3410.1000, L501.6710, L503.0106, L504.2610, L3300.1800, L3410.0900 ####[facility] [address] [place], [address] DI RESULT,S Comment Normal . [facility] Comment on above: Order Comment: N Result Comment: No m onoclonality detected. Performed By: #### L 501.9520, L3100.3425, L101.9900, L3410.2350, L3410.1000, L501.6710, L503.0106, L504.2610, L3300.1800, L3410.0900 ####[facility] [address] [place], [place], [id number](154) IMMUNOGLOB A QN 91 mg/dL Normal 87-352 [facility] Comment on above: Order Comment: N Performed By: #### L 501.9520, L3100.3425, L101.9900, L3410.2350, L3410.1000, L501.6710, L503.0106, L504.2610, L3300.1800, L3410.0900 ####[facility] [address] [place], [place], [address](714) IMMUNOGLOB G QN 1053 mg/dL Normal 586-1602 [facility] Comment on above: Order Comment: N Performed By: #### L 501.9520, L3100.3425, L101.9900, L3410.2350, L3410.1000, L501.6710, L503.0106, L504.2610, L3300.1800, L3410.0900 ####[facility] [address] [place], [address] IMMUNOGLOB M QN 122 mg/dL Normal 26-217 [facility] Comment on above: Order Comment: N Performed By: #### L 501.9520, L3100.3425, L101.9900, L3410.2350, L3410.1000, L501.6710, L503.0106, L504.2610, L3300.1800, L3410.0900 ####[facility] [address] [place], [address] M-Raffaele Not Observed Normal Not Observed [facility] Comment on above: Order Comment: N Performed By: #### L 501.9520, L3100.3425, L101.9900, L3410.2350, L3410.1000, L501.6710, L503.0106, L504.2610, L3300.1800, L3410.0900 ####[facility] [address] [place], [address] NOTE: Comment Normal . [facility] Comment on above: Order Comment: N Result Comment: Prot ein electrophoresis scan will follow via computer, mail, or potter or ceramic artist delivery. Performed By: #### L 501.9520, L3100.3425, L101.9900, L3410.2350, L3410.1000, L501.6710, L503.0106, L504.2610, L3300.1800, L3410.0900 ####[facility] [address] [place], [address] Protein [Mass/Vol] 7.0 g/dL Normal 6.0-8.5 [facility] Comment on above: Order Comment: N Performed By: #### L 501.9520, L3100.3425, L101.9900, L3410.2350, L3410.1000, L501.6710, L503.0106, L504.2610, L3300.1800, L3410.0900 ####[facility] [address] [place], [address] Intrinsic Factor Abon 2024 INTRINS FACT AB 1.0 AU/mL Normal 0.0-1.1 [facility] Comment on above: Result Comment: Perf ormed at: - [facility] [address] [id number] Hr Business Partner Consultant: Eliazar Posadas PhD, Phone: [phone] Performed at: [facility] [address] [id number] Hr Business Partner Consultant: Praveen Khan MD, Phone: [phone] Performed By: #### L 501.4878, L3100.3425, L101.9900, L3410.2350, L3410.1000, L501.6710, L503.0106, L504.2610, L3300.1800, L3410.0900 ####[facility] [address] [place], [address] Addendum DocumentOrdered By: Darrin Lozoya on 11-27-2024 Serum Immunofixation Comments Comment . [facility] Comment on above: Protein electrophore sis scan will follow via computer,mail, or potter or ceramic artist delivery. Albumin Elph [Mass/Vol]Order ed By: Darrin Lozoya on 11-27-2024 Albumin [Mass/Vol] 4.0 g/dL 2.9-4.4 [facility] Alpha 1 globulin Elph [Mass/ Vol]Ordered By: Darrin Lozoya on 11-27-2024 Xkrwz-4-Lxidkiwxj (DI) 0.3 g/dL 0.0-0.4 [facility] Aszpw-2-Gepcrqdnp (DI) 0.7 g/dL 0.4-1.0 [facility] Beta globulin Elph [Mass/Vol ]Ordered By: Darrin Lozoya on 11-27-2024 Beta-Globulins (DI) 0.9 g/dL 0.7-1.3 [facility] CNOVon 11-27-2024 CNOV Office Visit (ORTHWS ) ELISHA GODFREY ([id number]) 1955 F Date Time Provider Department 11/27/24 2:30 PM MANOJ GAMINO During your visit today, we recorded the following information about you: Manoj Gamino MD 11/27/2024 6:41 PM Signed Manoj Gamino MD Department of Orthopaedics Orth[facility] [address] [place] [address] Dept: [phone] Dept November 27, 2024 CHIEF COMPLAINT: Established Patient and Follow Up of the Left Hand HPI Elisha is a 69-year-old female presenting for follow-up on left hand paresthesia and trigger thumb. Elisha reports improvement in left thumb symptoms following a recent cortisone injection, noting significant relief within 3 days post-injection. Initially, the thumb exhibited catching and clicking for the first 2 days post-injection, but these symptoms have since resolved. She describes the thumb as functioning better than it has in a long time. However, she continues to experience intermittent paresthesia in the left hand, particularly when holding her phone or driving. These episodes are less severe than prior to the injection and no longer disrupt her sleep. She has noticed that elevating her hand exacerbates the paresthesia, prompting her to reposition it during sleep to avoid symptoms. Additionally, she reports episodic discoloration of the left ring finger, which turns purple with minimal trauma. ASSESSMENT: G56.02 Carpal tunnel syndrome of left wrist (primary encounter diagnosis) M65.312 Trigger thumb, left thumb PLAN: 1. Carpal tunnel syndrome of left wrist (G56.02) EMG/NCS results indicate mild carpal tunnel syndrome with no evidence of cervical radiculopathy or ulnar neuropathy. Symptoms include intermittent paresthesia, which has improved but not completely resolved. Nocturnal symptoms have decreased. - Provided a wrist cock-up splint to be worn at night and during activities that exacerbate symptoms, such as driving. - Discussed potential benefits of a corticosteroid injection to reduce perineural edema, but patient prefers to monitor symptoms before proceeding with injection. - Educated on surgical options, including minimally invasive carpal tunnel release, if symptoms worsen or become intolerable. - Advised to monitor symptoms and report any worsening or persistent issues. 2. Trigger thumb, left thumb (M65.312) Significant improvement following corticosteroid injection; no longer experiencing triggering or locking of the thumb. Continue to monitor for any recurrence of symptoms. Will continue to monitor patient for Carpal tunnel syndrome of left wrist (primary encounter diagnosis) Trigger thumb, left thumb, patient to schedule visit as per follow up discussed. OBJECTIVE: Ms. Elisha Godfrey is a pleasant 69 year old in no apparent distress. Gen:There were no vitals taken for this visit. nl development, obese, no deformities ENT: Normocephalic, normal hearing, moist mucosa CV: Pulses:Radial= 2+ and symmetric, capillary refill < 2 secs, no peripheral edema/varicosities Skin: no rash, bruising or lesions. Good turgor. Psych: cooperative and appropriate, alert and oriented x 3, good mood and affect. Musculoskeletal: - Musculoskeletal: - Left Hand: - No catching or clicking in the thumb. Mild, persistent numbness in Median nerve Imaging: Tests: - Nerve conduction study: Mild carpal tunnel syndrome noted. No evidence of nerve root compromise in the cervical region or entrapment at the elbow. 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 Normal [facility] CRPon 11-27-2024 C-REACTIVE PROT 3.68 mg/L High 0.0-3.0 [facility] Comment on above: Performed By: #### L 501.9520, L3100.3425, L101.9900, L3410.2350, L3410.1000, L501.6710, L503.0106, L504.2610, L3300.1800, L3410.0900 #### [facility] [address] [place], [place], [id number] CRP [Mass/Vol]Ordered By: Ra glen Lozoya on 11-27-2024 C-Reactive Protein Extended Range 3.68 mg/L High 0.0-3.0 [facility] Deamidated gliadin IgA antib elton assayOrdered By: Darrin Lozoya on 11-27-2024 Anti-Gliadin IgA Antibody 8 units 0-19 [facility] Comment on above: Negative 0 - 19 Weak Positive 20 - 30 Moderate to Strong Positive >30 Deamidated gliadin IgG antib elton assayOrdered By: Darrin Lozoya on 11-27-2024 Anti-Gliadin IgG Antibody 5 units 0-19 [facility] Comment on above: Negative 0 - 19 Weak Positive 20 - 30 Moderate to Strong Positive >30 Endomysial IgA antibody assa yOrdered By: Darrin Lozoya on 11-27-2024 Endomysial IgA Antibody Negative Negative [facility] Erythrocyte Sed Rateon 11-27 SED RATE 4 mm/hr Normal 0-30 [facility] Comment on above: Performed By: #### L 501.9520, L3100.3425, L101.9900, L3410.2350, L3410.1000, L501.6710, L503.0106, L504.2610, L3300.1800, L3410.0900 #### [facility] [address] [place], [place], [id number] Erythrocyte sedimentation ra teOrdered By: Darrin Lozoya on 11-27-2024 ESR (Bld) [Velocity] 4 mm/h 0-30 [facility] Gamma globulin Elph [Mass/Vo l]Ordered By: Darrin Lozoya on 11-27-2024 Gamma Globulins (DI) 1.2 g/dL 0.4-1.8 [facility] Gastrin [Mass/Vol]Ordered By : Darrin Lozoya on 11-27-2024 Gastrin 665 pg/mL High 0-115 [facility] Comment on above: Siemens Immulite 200 0 Immunochemiluminometric assay (ICMA)Values obtained with different assay methods or kits cannotbe used interchangeably. Results cannot be interpreted asabsolute evidence of the presence or absence of malignantdisease. Gastrin, serumOrdered By: Ra glen Lozoya on 11-27-2024 Gastrin [Mass/Vol] 665 pg/mL High 0-115 [facility] Comment on above: Siemens Immulite 200 0 Immunochemiluminometric assay (ICMA)Values obtained with different assay methods or kits cannotbe used interchangeably. Results cannot be interpreted asabsolute evidence of the presence or absence of malignantdisease. Gastroenterology Visit Repor ton 11-27-2024 Gastroenterology Visit Report [facility] [address] [place] [address] OFFICE VISIT Date of Service: 11/27/24 MR#: [id number] Acct: [id number] Name: ELISHA GODFREY Rep #: [id number] : 1955 Provider: Darrin Lozoya DO Age/Sex: 69/F [place] [facility] [place]: Signed Intake Vital Signs 06/02/16 07:59 Height 5 ft 1.5 in Intake Visit Reasons: Gastroesophageal reflux disease (GERD) Allergies lansoprazole (From Prevacid) Allergy (Verified 05/26/16 10:57) Hives latex Allergy (Verified 05/26/16 10:57) Unknown alendronate sodium (From Fosamax) Adverse Reaction (Unknown, Verified 11/21/24 15:25) heartburn adhesive Adverse Reaction (Verified 03/18/16 08:07) Unknown diphenhydramine (From Benadryl) Adverse Reaction (Verified 05/26/16 10:57) FEEL WEIRD Medications ???Medication ???Instructions ???Recorded ???Confirmed ???Type Ibuprofen [Motrin] 800 mg PO TID PRN PRN Pain 6 11/21/24 History aspirin 81 mg tablet,delayed 81 mg PO MOWEFR 05/26/16 11/21/24 History release calcium carbonate (Oyster Shell 500 mg PO BID 05/26/16 11/21/24 Hi story Calcium 500) cholecalciferol (vitamin D3) 25 2,000 unit PO DAILY 05/26/1611/21 History mcg (1,000 unit) tablet (Vitamin D3) fexofenadine-pseudoephedrin e ER 1 ea PO DAILY 05/26/16 11/21/24 Hi story 180 mg-240 mg tablet,ext.release 24 hr (Carmelita-D 24 Hour) omega-3 fatty acids-fish oil 340 3 ea PO DAILY 05/26/16 11/21/24 Hi story mg-1,000 mg capsule (Fish Oil) ramipril 5 mg capsule 5 mg PO DAILY 05/26/16 11/21/24 Hi story vitamin B complex 1 ea PO DAILY 05/26/16 11/21/24 Hi story ascorbic acid (vitamin C) 1,000 mg 1 g PO QDAY 11/21/24 11/21/24 Hi story capsule methotrexate sodium 2.5 mg tablet 20 mg PO QWEEK 11/21/24 11/21/24 History pantoprazole 40 mg tablet,delayed 40 mg PO QDAY 11/21/24 11/21/24 H istory release folic acid 1 mg tablet 2 mg PO QDAY 11/27/24 11/27/24 His tory Have you fallen in the past year?: No Nurse's Note: Pt was scheduled for EGD and Colonoscopy on 02.12.25 at the end of their appt today. Reviewed prep instructions and which medications to hold prior to procedure with pt in office. A paper copy of Miralax prep instructions were given to pt. Pt denies any questions or concerns at this time. [facility] Medical History (Updated 11/27/24 @ 09:[address] Clifford Friend, DO) GERD (gastroesophageal reflux disease) Osteopenia Osteoarthritis Hypertension Problems with hearing Migraines Cataracts, bilateral History of back problems Arthritis Seasonal allergies Surgical History (Updated 11/21/24 @ 15:36 by Adelina Royal) H/O: hysterectomy History of appendectomy History of tonsillectomy Family History (Updated 11/21/24 @ 15:39 by Adelina Royal) Mother Arthritis Brother Arthritis Colon cancer Diabetes Heart disease Social History Smoking Status: Never smoker alcohol intake: never substance use type: does not use what type of physical activity do you participate in: none HPI HPI Details: ELISHA GODFREY, is a 69 F who presents to the office today for initial consult. *[facility] established 4.7.25 pt reports that she is here to transfer care and to discuss scheduling for EGD and colonoscopy. Pt reports her last scopes were in 2021 and it was recommended she repeat within 1-2 years. Pt reports a burning sensation in her abdomen that comes in clusters, and is unable to identify trigger. Pt reports difficulty swallowing dry foods like bread and chicken. Pt continues with pantoprazole 40mg daily, thinks it is helpful, but not fully effective. ROS Const Constitutional: Positive for fatigue and headache(s); No fever(s) or weight change ENT ENT: Positive for headache(s) and difficulty swallowing Gastro GI: Positive for abdominal pain, bloating, heartburn, difficulty swallowing and excessive flatus; No belching, change in bowel habits, change in stool character, coffee ground emesis, constipation, cramping, diarrhea, feeling full early, incontinent of stools, Vomiting blood/hematemesis, Blood in stool, loose stools, Black,tarry stools, nausea/dyspepsia, pain with swallowing, vomiting or other Musc Musculoskeletal: Positive for abnormal gait, joint pain, back pain, joint swelling, muscle cramps, stiffness, Arthritis, restless legs and leg pain at night Skin Skin: Positive for dry skin; No yellowing of the eye or itchy eyes Neuro Neurology: Positive for abnormal gait, headache(s) and restless legs Psych Psychiatric: No anxiety and No depression Endo Endocrine: Positive for fatigue; No weight change Aller/Imm Allergy/Immunologic: No itchy eyes Doe/Lymp Hematologic/Lymphatic: Positive for easy bruising; No easy bleedi (more content not included)... Normal [facility] IgA [Mass/Vol]Ordered By: Ra hsaan Friend on 11-27-2024 Immunoglobulin A 91 mg/dL 87-352 [facility] IgG [Mass/Vol]Ordered By: Ra glen Lozoya on 11-27-2024 Immunoglobulin G 1053 mg/dL 586-1602 [facility] Immunoglobulin M measurement Ordered By: Darrinmichelle Lozoya on 11-27-2024 Immunoglobulin M 122 mg/dL 26-217 [facility] Interpretation IEP [Interp]O rdered By: Darrin Lozoya on 11-27-2024 Immunofixation Screen Comment . [facility] Comment on above: No monoclonality det ected. Interpretation of serum or p lasma protein pattern by immunofixation (narrative resultOrdered By: Darrin Lozoya on 11-27-2024 Protein Fractions Immunofixation Jordi [Interp] Not Observed g/dL Not Observed [facility] Intrinsic factor abOrdered B y: Darrin Lozoya on 11-27-2024 Intrinsic Factor Antibody 1.0 AU/mL 0.0-1.1 [facility] Comment on above: Performed at: [employer] [facility] [employer] [address] [id number] Director: Eliazar Posadas PhD, Phone: [phone] at: [facility] [address] [id number] Director: Praveen Khan MD, Phone: [phone] LDHon 11-27-2024 LDH 264 U/L High 84-246 [facility] Comment on above: Order Comment: 1 Result Comment: Hemo lysis present, Results??could be affected. ?? Performed By: #### L 501.9520, L3100.3425, L101.9900, L3410.2350, L3410.1000, L501.6710, L503.0106, L504.2610, L3300.1800, L3410.0900 #### [facility] [address] [place], [place], [id number] Lactate dehydrogenase (LDH) measurementOrdered By: Darrin Lozoya on 11-27-2024 LDH [Catalytic activity/Vol] 264 U/L High 84-246 [facility] Comment on above: Hemolysis present, R esults could be affected. No Panel InformationOrdered By: Darrin Lozoya on 11-27-2024 Addendum Document Comment . [facility] Comment on above: Protein electrophore sis scan will follow via computer,mail, or potter or ceramic artist delivery. Tissue Transglutaminase IgG Ab 4 U/mL 0-5 [facility] Comment on above: Negative 0 - 5 Weak Positive 6 - 9 Positive >9 Parietal cell Ab Qn (S)Order ed By: Darrin Lozoya on 11-27-2024 Anti-Parietal Cell Antibody 1.4 Units 0.0-20.0 [facility] Comment on above: Negative 0.0 - 20.0 Equivocal 20.1 - 24.9 Positive >24.9Parietal Cell Antibodies are found in 90% of patientswith pernicious anemia and 30% of first degreerelatives with pernicious anemia. Protein Fractions Immunofixa tion Jordi [Interp]Ordered By: Darrin Lozoya on 11-27-2024 M-Raffaele (DI) Not Observed g/dL Not Observed [facility] Serum albumin/globulin ratio Ordered By: Darrin Lozoya on 11-27-2024 Albumin/Globulin (DI) 1.4 0.7-1.7 [facility] Serum globulin measurement ( mass/volume)Ordered By: Darrin Lozoya on 11-27-2024 Globulin (S) [Mass/Vol] 3.0 g/dL 2.2-3.9 [facility] Serum or plasma C reactive p rotein measurement (mass/volume)Ordered By: Darrin Lozoya on 11-27-2024 CRP [Mass/Vol] 3.68 mg/L High 0.0-3.0 [facility] Serum or plasma IgA measurem ent (mass/volume)Ordered By: Darrin Lozoya on 11-27-2024 IgA [Mass/Vol] 91 mg/dL 87-352 [facility] Serum or plasma IgG measurem ent (mass/volume)Ordered By: Darrin Lozoya on 11-27-2024 IgG [Mass/Vol] 1053 mg/dL 586-1602 [facility] Serum or plasma alpha 1 glob ulin measurement by electrophoresis (mass/volume)Ordered By: Darrni Lozoya on 11-27-2024 Alpha 1 globulin Elph [Mass/Vol] 0.3 g/dL 0.0-0.4 [facility] Alpha 1 globulin Elph [Mass/Vol] 0.7 g/dL 0.4-1.0 [facility] Serum or plasma beta globuli n measurement by electrophoresis (mass/volume)Ordered By: Darrin Lozoya on 11-27-2024 Beta globulin Elph [Mass/Vol] 0.9 g/dL 0.7-1.3 [facility] Serum or plasma gamma globul in measurement by electrophoresis (mass/volume)Ordered By: Darrin Lozoya on 11-27-2024 Gamma globulin Elph [Mass/Vol] 1.2 g/dL 0.4-1.8 [facility] Serum or plasma immunoelectr ophoresis interpretation (nominal result)Ordered By: Darrin Lozoya on 11-27-2024 Interpretation IEP [Interp] Comment . [facility] Comment on above: No monoclonality det ected. Serum or plasma protein shira urement (mass/volume)Ordered By: Darrin Lozoya on 11-27-2024 Protein [Mass/Vol] 7.0 g/dL 6.0-8.5 [facility] Serum parietal cell antibody assay (units/volume)Ordered By: Darrin Lozoya on 11-27-2024 Parietal cell Ab Qn (S) 1.4 Units 0.0-20.0 [facility] Comment on above: Negative 0.0 - 20.0 Equivocal 20.1 - 24.9 Positive >24.9Parietal Cell Antibodies are found in 90% of patientswith pernicious anemia and 30% of first degreerelatives with pernicious anemia. Serum tissue transglutaminas e (tTG) IgA antibody assay (units/volume)Ordered By: Darrin Lozoya on 11-27-2024 tTG IgA Qn (S) 3 U/mL 0-3 [facility] Comment on above: Negative 0 - 3 Weak Positive 4 - 10 Positive >10 Tissue Transglutaminase (tTG) has been identified as the endomysial antigen. Studies have demonstr- ated that endomysial IgA antibodies have over 99% specificity for gluten sensitive enteropathy. TSH DL <= 0.005 mIU/L QnOrde red By: Darrin Lozoya on 11-27-2024 Thyroid Stimulating Hormone (TSH) 2.340 uIU/mL 0.300-4.20 0 [facility] TSH Qn 2.340 uIU/mL 0.300-4.20 0 [facility] Thyroid Stim Hormone (TSH)on 11-27-2024 TSH 2.340 uIU/mL Normal 0.300-4.20 0 [facility] Comment on above: Performed By: #### L 501.9520, L3100.3425, L101.9900, L3410.2350, L3410.1000, L501.6710, L503.0106, L504.2610, L3300.1800, L3410.0900 #### [facility] [address] [place], [address] Vitamin B12on 11-27-2024 Cobalamin (Vitamin B12) [Mass/Vol] 747 pg/mL Normal 180-914 [facility] Comment on above: Performed By: #### L 501.9520, L3100.3425, L101.9900, L3410.2350, L3410.1000, L501.6710, L503.0106, L504.2610, L3300.1800, L3410.0900 #### [facility] [address] [place], [place], [id number] Vitamin B12 ser/plasOrdered By: Darrin Lozoya on 11-27-2024 Cobalamin (Vitamin B12) [Mass/Vol] 747 pg/mL 180-914 [facility] tTG IgA Qn (S)Ordered By: Ra glen Lozoay on 11-27-2024 Tissue Transglutaminase IgA Ab 3 U/mL 0-3 [facility] Comment on above: Negative 0 - 3 Weak Positive 4 - 10 Positive >10 Tissue Transglutaminase (tTG) has been identified as the endomysial antigen. Studies have demonstr- ated that endomysial IgA antibodies have over 99% specificity for gluten sensitive enteropathy. CNOVon 11-23-2024 CNOV Office Visit (PODIWS ) BEKAHELISHA Gray ([id number]) 1955 F Date Time Provider Department 11/23/24 10:15 AM CHETAN BHAGAT PODIWS During your visit today, we recorded the following information about you: Carol Hartman MA 11/23/2024 10:15 AM Signed Patient presents with: Right Foot - Follow Up Left Foot - Follow Up AMB ROOMING INTAKE FLOWSHEET DATA Pain Pain Level: 4 Pain Location: (Bilateral feet L>R) Description: Sharp Duration Amount of Time: 3 Duration Units: Weeks Frequency: Intermittent Intervention/Comfort measure: (None) Patient here for follow up right great toe, left great toe and 2nd toenail avulsions. Patient states she has been continuing epsom salts, dreft and applying polysporin to her toes. Patient feels her pain is from her shoes and the dressings. Chetan Bhagat 11/23/2024 10:15 AM Signed FOLLOW UP PODIATRIC OFFICE VISIT Chief Complaint: This 69 year old who presents for follow up:total nail matrixectomy of b/l hallux and left 2nd toe Patient doing very well Denies any redness or drainage Does report some pain with dressing changes PAIN EVALUATION 11/23/2024 0959 Pain Level: 4 Pain Location: -- Bilateral feet L>R Description: Sharp Duration Amount of Time: 3 Duration Units: Weeks Frequency: Intermittent Intervention/Comfort measure: -- None Hemoglobin A1C Date Value Ref Range Status 09/14/2024 5.7 (H) 4.3 - 5.6 % Final Comment: [place] Diabetes [employer] guidelines indicate that patients with HgbA1c in the range 5.7-6.4% are at increased risk for development of diabetes, and intervention by lifestyle modification may be beneficial. HgbA1c greater or equal to 6.5% is considered diagnostic of diabetes. 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 Ferrer Internal hemorrhoids without mention of complication Lumbago 02/20/2008 Mixed hyperlipidemia Mixed stress and urge urinary incontinence 08/03/2012 Osteopenia, senile 08/31/2019 Pain in both lower extremities 09/19/2021 Suspect RLS PMH - PAST MEDICAL HISTORY OF miagraines Prolapse of vaginal vault after hysterectomy 07/10/2013 Rosacea Severe obesity (BMI 35.0-39.9) with comorbidity (HCC) 09/21/2023 Sinus headache 08/28/2019 Spondylolisthesis at L4-L5 level 09/23/2021 Symptomatic menopausal or female climacteric states Current Outpatient Medications Medication Sig pantoprazole DR (PROTONIX) 40 mg tablet Take 1 tablet by mouth daily before breakfast. Take on empty stomach, 1/2 hr before meal. Cholecalciferol, Vitamin D3, (VITAMIN D) 25 mcg (1,000 unit) cap Take 2 capsules by mouth once daily. 50 mcg daily budesonide (RHINOCORT ALLERGY) 32 mcg/actuation nasal spray Use 1 [place] in each nostril as needed. ramipril (ALTACE) 5 mg capsule Take 1 capsule by mouth once daily. clobetasol (TEMOVATE) 0.05 % ointment Apply to affected area two times a day. docosahexaenoic acid/epa (FISH OIL ORAL) Take 1,000 mg by mouth once daily. folic acid 1 mg tablet Take 2 mg by mouth once daily. methotrexate 2.5 mg tablet Take 2.5 mg by mouth every Wednesday. Taking 8 tablets weekly ibuprofen (MOTRIN) 800 mg tablet Take 1 tablet by mouth every 8 hours as needed. FOR PAIN. ZINC ORAL Take 1 capsule by mouth once daily. vitamin E mixed/tocotrienol (VITAMIN E COMPLEX ORAL) Take 1 capsule by mouth once daily. olopatadine (PATANOL) 0.1 % ophthalmic solution 1 Drop twice daily. pataday Calcium-Cholecalciferol, D3, (CALCIUM 600 + D) 600-125 mg-unit tab Take one twice a day. sodium chloride-aloe vera (AYR SALINE) topical nasal gel by INTRANASAL route as needed. Artificial Tear, Hypromellose, (SYSTANE GEL) 0.3 % gel 1 Drop as needed (bedtime). Ascorbic Acid 1,000 mg tablet Take 1,000 mg by mouth once daily. fexofenadine hcl(CARMELITA 180 MG TAB) Take one(1) tablet daily. vitamin b complex(B COMPLEX CAP) Take one(1) tablet daily. aspirin(ECOTRIN LOW STRENGTH 81 MG TAB) one tablet 3 times a week multivitamins w-minerals/lut(CENTRUM SILVER TAB) Take one(1) tablet daily. No current facility-administered medications for this visit. ALLERGIES Allergen Reactions Prevacid [Lansopraz* Hives Adhesive Unknown Benadryl [Diphenhyd* Other: See Comments makes her fe (more content not included)... Normal [facility] 11-15-2024 [facility] Telephone (ImpactRxMN) ELISHA GODFREY ([id number]) 1955 F Date Time Provider Department 11/15/24 ISIDRA ANDRADE [facility] During your visit today, we recorded the following information about you: Allergies As of Date: 11/15/2024 Noted Allergy Reaction PREVACID (LANSOPRAZOLE) 01/01/2006 4 - Hives ADHESIVE 03/18/2016 16 - Unknown BENADRYL (DIPHENHYDRAMINE HCL) 01/01/2006 14 - Other: See Comments Comments: makes her feel weird FOSAMAX (ALENDRONATE) 12/13/2023 14 - Other: See Comments Comments: GERD LATEX 01/14/2010 16 - Unknown Date Reviewed: 10/31/2024 Reviewed by: Maureen De La Torre LPN - Fully Assessed Reason for Visit: Mammogram Result Call Back [[id number]] Cmt: right breast diag mamm and us cb per Prescriptions as of 11/15/2024 - pantoprazole DR (PROTONIX) 40 mg tablet Take 1 tablet by mouth daily before breakfast. Take on empty stomach, 1/2 hr before meal. - Cholecalciferol, Vitamin D3, (VITAMIN D) 25 mcg (1,000 unit) cap Take 2 capsules by mouth once daily. 50 mcg daily - budesonide (RHINOCORT ALLERGY) 32 mcg/actuation nasal spray Use 1 [place] in each nostril as needed. - ramipril (ALTACE) 5 mg capsule Take 1 capsule by mouth once daily. - clobetasol (TEMOVATE) 0.05 % ointment Apply to affected area two times a day. - docosahexaenoic acid/epa (FISH OIL ORAL) Take 1,000 mg by mouth once daily. - folic acid 1 mg tablet Take 2 mg by mouth once daily. - methotrexate 2.5 mg tablet Take 2.5 mg by mouth every Wednesday. Taking 8 tablets weekly - ibuprofen (MOTRIN) 800 mg tablet Take 1 tablet by mouth every 8 hours as needed. FOR PAIN. - ZINC ORAL Take 1 capsule by mouth once daily. - vitamin E mixed/tocotrienol (VITAMIN E COMPLEX ORAL) Take 1 capsule by mouth once daily. - olopatadine (PATANOL) 0.1 % ophthalmic solution 1 Drop twice daily. pataday - Calcium-Cholecalciferol, D3, (CALCIUM 600 + D) 600-125 mg-unit tab Take one twice a day. - sodium chloride-aloe vera (AYR SALINE) topical nasal gel by INTRANASAL route as needed. - Artificial Tear, Hypromellose, (SYSTANE GEL) 0.3 % gel 1 Drop as needed (bedtime). - Ascorbic Acid 1,000 mg tablet Take 1,000 mg by mouth once daily. - fexofenadine hcl(CARMELITA 180 MG TAB) Take one(1) tablet daily. - vitamin b complex(B COMPLEX CAP) Take one(1) tablet daily. - aspirin(ECOTRIN LOW STRENGTH 81 MG TAB) one tablet 3 times a week - multivitamins w-minerals/lut(CENTRUM SILVER TAB) Take one(1) tablet daily. Meds Comments as of 09/27/2018: Using OTC eye drop/gel Problem List As Of Date 11/15/2024 Noted Resolved Calcaneal spur [M77.30] 07/14/2005 Hemorrhage [...] of vaginal vault after hysterectomy [N*07/10/2013 Cystocele [EFH3836] 07/17/2013 Female stress incontinence [N39.3] 07/17/2013 Mixed hyperlipidemia [E78.2] Rosacea [L71.9] Eczema [L30.9] 08/28/2019 GERD without esophagitis [K21.9] 08/28/2019 Fibromyalgia [M79.7] 08/28/2019 Sinus headache [R51.9] 08/28/2019 Encounter for Medicare annual wellness exam [Z0*08/28/2019 Encounter for screening mammogram for breast ca*08/28/2019 Family history of thyroid disease [Z83.49] 08/28/2019 Medication management [Z79.899] 08/28/2019 Osteopenia, senile [M85.80] 08/31/2019 History of colonic polyps [Z86.0100] 09/19/2021 Screening for colon cancer [Z12.11] 09/19/2021 Pain in both lower extremities [M79.604, M79.60*09/19/2021 Spondylolisthesis at L4-L5 level [M43.16] 09/23/2021 BAUTISTA positive [R76.8] 09/25/2021 09/21/2023 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] 10/21/2021 Inflammatory arthritis [M19.90] 09/21/2022 Elevated blood sugar [R73.9] 09/21/2022 Advance directive discussed with patient [Z71.8*09/21/2022 Severe obesity (BMI 35.0-39.9) with comorbidity*09/21/2023 Encounter Status:Closed by MATILDA WRIGHT on 11/15/24 Normal [facility] NCS and/or EMG Patienton NCS and/or EMG Patient [facility] Pulmonary Services/Neurology [address] [place] [address] MR#: [id number] Acct: [id number] Name: ELISHA GODFREY Gray Rep #: [id number] : 1955 69 From: Chas Bello MD Referring Dr: Manoj Gamino MD Status: REG CLI Location: PSN Date: 11/14/24 Sex: F C NCS and/or EMG Patient Report Ordering Doctor: Manoj Gamino DATE OF SERVICE: 11/14/24 Clinical Summary: 69 year old female with symptoms of possible numbness in the fingers of the left hand. Nerve Conduction Studies Summary: Nerve conduction studies were performed in the left upper extremity. The left median-D2 SNAP distal latency was prolonged. The left median motor conduction velocity was decreased in the forearm segment. Needle Examination Summary: Needle examination of select muscles of the left upper extremity was normal. Impression: This is an abnormal study. There is electrodiagnostic evidence of a mild, left median mononeuropathy at the wrist (carpal tunnel syndrome), with sensory fiber demyelination There is no electrodiagnostic evidence of a left ulnar neuropathy or cervical radiculopathy. Multi Select Codes Neurology Neurology Interp Codes: 06648-56 Musc test done w/n test comp (interp) (1) and 46132-03 Nrv cndj test 7-8 studies (interp) 11/14/24 1346 Date Chas Bello MD CC: Dr. Chas Bello MD; Dr. Manoj Gamino MD; Dr. Kade Fry MD Date Dictated: 11/14/241130 Date Transcribed: 11/14/241130 Professional Wrestler: Signed Normal [facility] DBT Breast - bilateral moustapha fuentes 11-13-2024 IMPRESSION: The asymmetry in the inferior right breast, anterior depth requires additional evaluation. Diagnostic mammogram is recommended. BI-RADS Category 0: Incomplete: Needs Additional Imaging Evaluation RISK: Based on the Tyrer-Cuzick (TC) risk assessment model, this patient has a 2.7% lifetime risk of developing breast cancer, meaning they are at average risk for developing breast cancer. However, this is only an estimate based on available history provided on the patient's questionnaire. We encourage all patients to talk with their providers about these results, further recommendations for managing breast health, and appropriate supplemental screening options if the patient has dense breast tissue. Interpreting Radiologist: Sari Sol M.D. Electronically signed on: 11/13/2024 Professional Wrestler: RUI Transcrimoe Date/Time: Nov 13 2024 10:08A Dictated by: SARI SOL MD This examination was interpreted and the report reviewed and electronically signed by: SARI SOL MD on Nov 13 2024 2:32PM [facility] DIVISION OF RADIOLOGY * * *Final Report* * * DATE OF EXAM: Nov 13 2024 10:31AM [facility] 0582 - LEIGH SCREENING W IRISH / PROCEDURE REASON: Encounter for screening mammogram for breast cancer * * * * Physician Interpretation * * * * RESULT: [facility] [address] [place] [address] #[id number] - LEIGH SCREENING W IRISH HISTORY: 69 year-old patient seen for screening. Patient is asymptomatic in both breasts. Patient states no personal history of breast cancer. The patient has a family history of breast cancer. COMPARISON STUDIES: The present examination has been compared to prior imaging studies dated 03/26/2020 (mammogram), 09/20/2020 (mammogram), 10/07/2021 (mammogram), 11/06/2022 (mammogram) and 11/12/2023 (mammogram). MAMMOGRAM TECHNIQUE: The study was acquired using full field digital technology and interpreted from soft copy. Digital Breast Tomosynthesis (DBT) images were obtained and used to assist in the interpretation of this examination. MAMMOGRAM FINDINGS: The breasts are almost entirely fatty. There is an asymmetry in the inferior right breast, anterior depth. This is best visualized on tomosynthesis MLO view slice # 33. No suspicious masses, calcifications or other abnormalities are seen in the left breast. DIVISION OF RADIOLOGY Provider, [facility] - 11/13/2024 * * *Final Report* * * DATE OF EXAM: Nov 13 2024 10:31AM [facility] 0582 - LEIGH SCREENING W IRISH / PROCEDURE REASON: Encounter for screening mammogram for breast cancer * * * * Physician Interpretation * * * * RESULT: [place] [address] #[id number] - LEIGH SCREENING W IRISH HISTORY: 69 year-old patient seen for screening. Patient is asymptomatic in both breasts. Patient states no personal history of breast cancer. The patient has a family history of breast cancer. COMPARISON STUDIES: The present examination has been compared to prior imaging studies dated 03/26/2020 (mammogram), 09/20/2020 (mammogram), 10/07/2021 (mammogram), 11/06/2022 (mammogram) and 11/12/2023 (mammogram). MAMMOGRAM TECHNIQUE: The study was acquired using full field digital technology and interpreted from soft copy. Digital Breast Tomosynthesis (DBT) images were obtained and used to assist in the interpretation of this examination. MAMMOGRAM FINDINGS: The breasts are almost entirely fatty. There is an asymmetry in the inferior right breast, anterior depth. This is best visualized on tomosynthesis MLO view slice # 33. No suspicious masses, calcifications or other abnormalities are seen in the left breast. IMPRESSION IMPRESSION: The asymmetry in the inferior right breast, anterior depth requires additional evaluation. Diagnostic mammogram is recommended. BI-RADS Category 0: Incomplete: Needs Additional Imaging Evaluation RISK: Based on the Tyrer-Cuzick (TC) risk assessment model, this patient has a 2.7% lifetime risk of developing breast cancer, meaning they are at average risk for developing breast cancer. However, this is only an estimate based on available history provided on the patient's questionnaire. We encourage all patients to talk with their providers about these results, further recommendations for managing breast health, and appropriate supplemental screening options if the patient has dense breast tissue. Interpreting Radiologist: Sari Sol M.D. Electronically signed on: 11/13/2024 Professional Wrestler: RUI Transcribe Date/Time: Nov 13 2024 10:08A Dictated by: SARI SOL MD This examination was interpreted and the report reviewed and electronically signed by: SARI SOL MD on Nov 13 2024 2:32PM EST [facility] Radiology Study observation (narrative) [facility] DBT Breast - bilateral scree ningOrdered By: [facility] Provider on 11-13-2024 [facility] LEIGH SCREENING W TOMOon 11-13 LEIGH SCREENING W IRISH * * *Final Report* * * DATE OF EXAM: Nov 13 2024 10:31AM [facility] 0582 - LEIGH SCREENING W IRISH / PROCEDURE REASON: Encounter for screening mammogram for breast cancer * * * * Physician Interpretation * * * * RESULT: [place] [address] #[id number] - LEIGH SCREENING W IRISH HISTORY: 69 year-old patient seen for screening. Patient is asymptomatic in both breasts. Patient states no personal history of breast cancer. The patient has a family history of breast cancer. COMPARISON STUDIES: The present examination has been compared to prior imaging studies dated 03/26/2020 (mammogram), 09/20/2020 (mammogram), 10/07/2021 (mammogram), 11/06/2022 (mammogram) and 11/12/2023 (mammogram). MAMMOGRAM TECHNIQUE: The study was acquired using full field digital technology and interpreted from soft copy. Digital Breast Tomosynthesis (DBT) images were obtained and used to assist in the interpretation of this examination. MAMMOGRAM FINDINGS: The breasts are almost entirely fatty. There is an asymmetry in the inferior right breast, anterior depth. This is best visualized on tomosynthesis MLO view slice # 33. No suspicious masses, calcifications or other abnormalities are seen in the left breast. IMPRESSION: The asymmetry in the inferior right breast, anterior depth requires additional evaluation. Diagnostic mammogram is recommended. BI-RADS Category 0: Incomplete: Needs Additional Imaging Evaluation RISK: Based on the Tyrer-Cuzick (TC) risk assessment model, this patient has a 2.7% lifetime risk of developing breast cancer, meaning they are at average risk for developing breast cancer. However, this is only an estimate based on available history provided on the patient's questionnaire. We encourage all patients to talk with their providers about these results, further recommendations for managing breast health, and appropriate supplemental screening options if the patient has dense breast tissue. Interpreting Radiologist: Sari Sol M.D. Electronically signed on: 11/13/2024 Professional Wrestler: RUI Transcribe Date/Time: Nov 13 2024 10:08A Dictated by: SARI SOL MD This examination was interpreted and the report reviewed and electronically signed by: SARI SOL MD on Nov 13 2024 2:32PM EST [id number] Normal [facility] CNOVon 10-31-2024 CNOV Office Visit (PODIWS ) ELISHA GODFREY ([id number]) 1955 F Date Time Provider Department 10/31/24 10:45 AM CHETAN BHAGATS During your visit today, we recorded the following information about you: Maureen De La Torre LPN 10/31/2024 12:51 PM Signed AMB ROOMING INTAKE FLOWSHEET DATA Patient presents with: Left Foot - Established Patient, Procedure: Great toe and 2nd toe Right Foot - Established Patient, Procedure: Great toe LISA Boyd Amanda FÉLIX 10/31/2024 11:02 AM Signed Post-Op Nail Instructions Minimize activity until the anesthesia wears off (about 2-8 hours). Increase activity to tolerance Remove bandage tomorrow Soak affected toe/foot in epsom salts for 15-20 minutes twice daily After soaking, apply antibiotic ointment (OTC Neosporin) to affected toe and re bandage OTC Ibuprofen if having pain, provided you have no allergies or intolerance to NSAIDS Mild drainage, redness, and blood is expected, but if you expeirence severe pain, increase in drainage, swelling, or red streaking please contact our office immediately Feel free to contact office as well if you have any questions/concerns [phone], ask for Podiatry Nurse Chetan Bhagat 10/31/2024 12:51 PM Signed FOLLOW UP PODIATRIC OFFICE VISIT Chief Complaint: This 69 year old who presents for follow up:nail thickening of b/l hallux and left 2nd toe Patient presents to clinic for follow-up b/l hallux and left 2nd toenail thickening These cause her pain and at times, has developed infection She has no infection currently She is here today requesting nail removal PAIN EVALUATION No data found in the last 1 encounters. Hemoglobin A1C Date Value Ref Range Status 09/14/2024 5.7 (H) 4.3 - 5.6 % Final Comment: [place] Diabetes [employer] guidelines indicate that patients with HgbA1c in the range 5.7-6.4% are at increased risk for development of diabetes, and intervention by lifestyle modification may be beneficial. HgbA1c greater or equal to 6.5% is considered diagnostic of diabetes. 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 Ferrer Internal hemorrhoids without mention of complication Lumbago 02/20/2008 Mixed hyperlipidemia Mixed stress and urge urinary incontinence 08/03/2012 Osteopenia, senile 08/31/2019 Pain in both lower extremities 09/19/2021 Suspect RLS PMH - PAST MEDICAL HISTORY OF miagraines Prolapse of vaginal vault after hysterectomy 07/10/2013 Rosacea Severe obesity (BMI 35.0-39.9) with comorbidity (HCC) 09/21/2023 Sinus headache 08/28/2019 Spondylolisthesis at L4-L5 level 09/23/2021 Symptomatic menopausal or female climacteric states Current Outpatient Medications Medication Sig pantoprazole DR (PROTONIX) 40 mg tablet Take 1 tablet by mouth daily before breakfast. Take on empty stomach, 1/2 hr before meal. Cholecalciferol, Vitamin D3, (VITAMIN D) 25 mcg (1,000 unit) cap Take 2 capsules by mouth once daily. 50 mcg daily budesonide (RHINOCORT ALLERGY) 32 mcg/actuation nasal spray Use 1 [place] in each nostril as needed. ramipril (ALTACE) 5 mg capsule Take 1 capsule by mouth once daily. clobetasol (TEMOVATE) 0.05 % ointment Apply to affected area two times a day. docosahexaenoic acid/epa (FISH OIL ORAL) Take 1,000 mg by mouth once daily. folic acid 1 mg tablet Take 2 mg by mouth once daily. methotrexate 2.5 mg tablet Take 2.5 mg by mouth every Wednesday. Taking 8 tablets weekly ibuprofen (MOTRIN) 800 mg tablet Take 1 tablet by mouth every 8 hours as needed. FOR PAIN. ZINC ORAL Take 1 capsule by mouth once daily. vitamin E mixed/tocotrienol (VITAMIN E COMPLEX ORAL) Take 1 capsule by mouth once daily. olopatadine (PATANOL) 0.1 % ophthalmic solution 1 Drop twice daily. pataday Calcium-Cholecalciferol, D3, (CALCIUM 600 + D) 600-125 mg-unit tab Take one twice a day. sodium chloride-aloe vera (AYR SALINE) topical nasal gel by INTRANASAL route as needed. Artificial Tear, Hypromellose, (SYSTANE GEL) 0.3 % gel 1 Drop as needed (bedtime). Ascorbic Acid 1,000 mg tablet Take 1,000 mg by mouth once daily. fexofenadine hcl(CARMELITA 180 MG TAB) Take one(1) tablet daily. vitamin b complex(B COMPLEX CAP) Take one(1) tablet daily. aspirin(ECO (more content not included)... Normal [facility] PVR ANK PRESS JOSE VAS LABon 10-17-2024 PVR ANK PRESS JOSE VAS LAB Non-Invasive Vascular Laboratory [facility] Lower Extremity Arterial Physiology Study Bilateral/Complete Date of service/time: 10/17/2024 9:58:37 AM Name: MRS. ELISHA GODFREY Date of : 1955 Age: 69 years Gender: F Clinical Indication Absent pulses. TECHNIQUE -------- An arterial physiological examination was performed, including measurement of blood pressures using continuous wave Doppler and recording of plethysmographic with or without Doppler waveforms at the below-mentioned limb segments. FINDINGS -------- RIGHT SIDE AT REST Right Doppler Waveforms Dorsalis pedis: Multiphasic. Post tibial: Multiphasic. Right Pressures Brachial: 153 mmHg Ankle dorsalis pedis: 157 mmHg KIRAN: 1.02 Ankle posterior tibial: 174 mmHg KIRAN: 1.13 Digit: 108 mmHg Right PVR Waveforms Ankle: Normal. Digit: Mildly dampened. LEFT SIDE AT REST Left Doppler Waveforms Dorsalis pedis: Multiphasic. Post tibial: Multiphasic. Left Pressures Brachial: 154 mmHg Ankle dorsalis pedis: 154 mmHg KIRAN: 1.00 Ankle posterior tibial: 172 mmHg KIRAN: 1.12 Digit: 109 mmHg Left PVR Waveforms Ankle: Normal. Digit: Mildly dampened. IMPRESSION RIGHT SIDE Resting right ankle brachial index: 1.13 Right toe brachial index: 0.70 Normal ankle brachial index at rest in the right leg. Normal toe brachial index at rest in the right leg. Right ankle: Normal at rest. LEFT SIDE Resting left ankle brachial index: 1.12 Left toe brachial index: 0.71 Normal ankle brachial index at rest in the left leg. Normal toe brachial index at rest in the left leg. Left ankle: Normal at rest. Technologist: Sarah Ferrera RVT RDMS Ordering physician: CHETAN BHAGAT Interpreting physician: MOOSE Daugherty DO Final CC [employer] : [id number] See Link below for Image Normal [facility] Additional Injections: L lisset joiner A1on 10-16-2024 Manoj Gamino MD 10/16/2024 12:26 PM Additional Injections: L thumb A1 for trigger finger 10/16/2024 9:44 AM The procedure site was prepped in the usual sterile fashion. Medications: 3 mg betamethasone acetate-betamethasone sodium phosphate 6 mg/mL Anesthetics: 0.5 mL lidocaine (PF) 10 mg/mL (1 %) Outcome: tolerated well, no immediate complications Post-injection instructions were reviewed with the patient and the patient voiced understanding of these instructions. Informed Consent Consent Obtained: Verbal [place] Protocol A moment to CARE was completed. SIGN IN Personnel directly involved with the procedure wore the appropriate PPE. Special Equipment: N/A Patient/Surrogate Stated/Verified: Patient name, Date of , Relevant allergies and Intended procedure TIME OUT Relevant labs, photos, and/or imaging studies have been reviewed. Intended patient and procedure match the source document(s). Consent documented and matches the intended procedure. Correct side/site marked and visible. Medications required for procedure verified. No fire risk assessment and interventions applicable. No implant(s) inserted. SIGN OUT No specimen collected. No instruments, equipment or retained foreign bodies applicable. Post-procedure follow-up management communicated and Plan of Care Visit completed when applicable [facility] CNOVon 10-16-2024 CNOV Office Visit (PODIWS ) ELISHA GODFREY ([id number]) 1955 F Date Time Provider Department 10/16/24 10:45 AM CHETAN BHAGAT During your visit today, we recorded the following information about you: Sayra Clifford, RN 10/16/2024 11:28 AM Signed Patient presents with: Left Foot - New, Pain, Nail Fungus Right Foot - New, Pain, Nail Fungus Patient presents for possible nail fungus that has been ongoing for about 6-7 years. Currently affecting right big toenail and left 1st and 2nd. Had used apple cider vinegar soaks in the past. States that nails seem loose which causes some discomfort. Nails are also thick and discolored and have been hard to trim so they are long which is also uncomfortable. Chetan Bhagat 10/16/2024 11:28 AM Signed Consultation requested by Dr. Fry for an opinion regarding nail deformity. My final recommendations will be communicated back to the requesting physician by way of shared Medical record or letter to requesting physician via US mail. Initial Podiatric Office Visit: Chief Complaint: This 69 year old female who presents with chief complaint:deformed toenail of b/l hallux and left 2nd toe HPI Patient presents to clinic for evaluation of b/l feet. Her primary issue is painful/dystrophic toenail of b/l hallux and left 2nd toe The nails have been deformed for 6-7 years. Does report prior trauma to the nails. Believes a piece of wood fell on her toe. Has tried apple cider vinegar soaks but no improvement. Here to discuss options. PAIN EVALUATION No data found in the last 1 encounters. Hemoglobin A1C (%) Date Value 09/14/2024 5.7 09/20/2023 5.5 09/09/2018 5.6 08/17/2017 6.1 08/20/2016 6.2 HBA1C, [place] (%) Date Value 03/07/2011 5.5 Hemoglobin A1C (POCT) (%) Date Value 09/21/2022 5.5 PCP: Kade Fry MD PAST MEDICAL HISTORY Diagnosis Date BAUTISTA positive 09/25/2021 Arthritis Atrophic vaginitis 08/03/2012 Calcaneal spur 07/14/2005 Cystocele 07/17/2013 Diverticulosis of colon (without mention of hemorrhage) Eczema 08/28/2019 Elevated blood sugar 09/21/2022 Essential hypertension 12/14/2009 Female stress incontinence 07/17/2013 Fibromyalgia 08/28/2019 GERD without esophagitis 08/28/2019 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 Ferrer Internal hemorrhoids without mention of complication Lumbago 02/20/2008 Mixed hyperlipidemia Mixed stress and urge urinary incontinence 08/03/2012 Osteopenia, senile 08/31/2019 Pain in both lower extremities 09/19/2021 Suspect RLS PMH - PAST MEDICAL HISTORY OF [place] Prolapse of vaginal vault after hysterectomy 07/10/2013 Rosacea Severe obesity (BMI 35.0-39.9) with comorbidity (HCC) 09/21/2023 Sinus headache 08/28/2019 Spondylolisthesis at L4-L5 level 09/23/2021 Symptomatic menopausal or female climacteric states Current Outpatient Medications Medication Sig pantoprazole DR (PROTONIX) 40 mg tablet Take 1 tablet by mouth daily before breakfast. Take on empty stomach, 1/2 hr before meal. Cholecalciferol, Vitamin D3, (VITAMIN D) 25 mcg (1,000 unit) cap Take 2 capsules by mouth once daily. 50 mcg daily budesonide (RHINOCORT ALLERGY) 32 mcg/actuation nasal spray Use 1 [place] in each nostril as needed. ramipril (ALTACE) 5 mg capsule Take 1 capsule by mouth once daily. clobetasol (TEMOVATE) 0.05 % ointment Apply to affected area two times a day. docosahexaenoic acid/epa (FISH OIL ORAL) Take 1,000 mg by mouth once daily. folic acid 1 mg tablet Take 2 mg by mouth once daily. methotrexate 2.5 mg tablet Take 2.5 mg by mouth every Wednesday. Taking 8 tablets weekly ibuprofen (MOTRIN) 800 mg tablet Take 1 tablet by mouth every 8 hours as needed. FOR PAIN. ZINC ORAL Take 1 capsule by mouth once daily. vitamin E mixed/tocotrienol (VITAMIN E COMPLEX ORAL) Take 1 capsule by mouth once daily. olopatadine (PATANOL) 0.1 % ophthalmic solution 1 Drop twice daily. pataday Calcium-Cholecalciferol, D3, (CALCIUM 600 + D) 600-125 mg-unit tab Take one twice a day. sodium chloride-aloe vera (AYR SALINE) topical nasal gel by INTRANASAL route as needed. Artificial Tear, Hypromellose, (SYSTANE GEL) 0.3 % gel 1 Drop as needed (bedtime). Ascorbic Acid 1,000 mg tablet Take 1,000 mg by mouth once daily. fexofenadine hcl(CARMELITA 180 MG TAB) Take one(1) tablet daily. vitamin b complex(B COMPLEX CAP) Take one(1) tablet daily. aspirin(ECOTRIN LOW STRENGTH 81 MG TAB) one tablet 3 times a week multivitamins w-minerals/lut(CENTRUM SILVER TAB) Take one(1) tablet daily. No current facility-administered medications for this visit. ALLERGIES Allergen Reactions Prevacid [Lansop (more content not included)... Normal [facility] CNOV Office Visit (FOREIGN ) ELISHA GODFREY ([id number]) 1955 F Date Time Provider Department 10/16/24 9:15 AM MANOJ GAMINO During your visit today, we recorded the following information about you: Manoj Gamino MD 10/16/2024 12:26 PM Signed Manoj Gamino MD Department of Orthopaedics Orthopaedics [address] [facility] [address] Dept: [phone] Dept October 16, 2024 CHIEF COMPLAINT: New and Numbness of the Left Hand and Trigger Finger of the Left Thumb (Referred by Dr. Fry) HPI Patient here for evaluation left hand numbness and tingling. Her left thumb has also been locking. Patient states she has had the numbness and tingling for about 3 months. 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 Patient states her 4th finger will turn purple like it is bruised and them it will turn white. Patient states her thumb does lock at times. It is worse in the mornings and evenings. She has to help unlock it. Taking no med's for the pain. Patient is right handed dominant and is retired. 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 I suspect she may have a little bit of rainout secondary to her prior rheumatologic issues but rewarming and some gentle massage sounds like it is keeping it at bay. She certainly has a bit of a trigger finger and we will give her a cortisone injection for that today. I have also ordered an electrodiagnostic exam of her left upper extremity due to her numbness, tingling, nighttime symptoms, etc. FOLLOW UP INSTRUCTIONS: After nerve testing OBJECTIVE: Ms. Elisha Godfrey is a pleasant 69 year old in no apparent distress. Gen:There were no vitals taken for this visit. nl development, obese, no deformities ENT: Normocephalic, normal hearing, moist mucosa CV: Pulses:Radial= 2+ and symmetric, capillary refill < 2 secs, no peripheral edema/varicosities Skin: no rash, bruising or lesions. Good turgor. Psych: cooperative and appropriate, alert and oriented x 3, good mood and affect. Musculoskeletal: No discoloration today. TTP at thumb A1 jax. Clicking without any catching of the digit. Mild, diminished light touch sensation in the median nerve distribution in the left hand. Positive Tinel's and positive median nerve compression testing. IMAGING: IMPRESSION: No acute osseous abnormality Professional Wrestler: PATO Transcribe Date/Time: Aug 24 2023 10:23A Dictated by : ZULMA ROE MD This examination was interpreted and the report reviewed and electronically signed by: ZULMA ROE MD on Aug 24 2023 10:24AM EST Results-Findings * * *Final Report* * * DATE OF EXAM: Aug 24 2023 10:14AM WOX [id number] - XR HAND 3V PA/LAT/OBL LT / PROCEDURE REASON: multiple diagnoses * * * * Physician Interpretation * * * * EXAMINATION: XR HAND 3V PA/LAT/OBL LT CLINICAL HISTORY: Cat bite Technique: XR HAND 3V PA/LAT/OBL LT -- LEFT with 3 views on 3 images Comparison: None RESULT: No acute fracture or dislocation. Small marginal osteophytes at multiple interphalangeal joints. No destructive osseous lesion. No radiodense foreign body. Additional Injections: L thumb A1 for trigger finger 10/16/2024 9:44 AM The procedure site was prepped in the usual sterile fashion. Medications: 3 mg betamethasone acetate-betamethasone sodium phosphate 6 mg/mL Anesthetics: 0.5 mL lidocaine (PF) 10 mg/mL (1 %) Outcome: tolerated well, no immediate complications Post-injection instructions were reviewed with the patient and the patient voiced understanding of these instructions. Informed Consent Consent Obtained: Verbal [place] Protocol A moment to CARE was completed. SIGN IN Personnel directly involved with the procedure wore the appropriate PPE. Special Equipment: N/A Patient/Surrogate Stated/Verified: Patient name, Date of , Relevant allergies and Intended procedure TIME OUT Relevant labs, photos, and/or imaging studies have been reviewed. Intended patient and procedure match the source document(s). Consent documented and matches the intended procedure. Correct side/site marked and visible. Medications required for procedure verified. No fire risk assessment and interventions applicable. No implant(s) inserted. SIGN OUT No specimen collected. No instruments, equipment or retained foreign bodies applicable. Post-procedure follow-up management communicated and Plan of Care Visit completed when applicable Supporting Subjective Information Below: Past Medical History: PAST MEDICAL HISTORY Diagnosis Date BAUTISTA positive 09/25/2021 Art (more content not included)... Normal [facility] Absolute lymphocyte countOrd ered By: Dina Ferrer on 10-03-2024 Lymphocytes Auto (Unsp spec) [#/Vol] 0.98 10*3/uL 0.83-4.51 [facility] Absolute neutrophil countOrd ered By: Dina Ferrer on 10-03-2024 Neutrophils (Bld) [#/Vol] 2.4 10*3/uL 2.0-7.7 [facility] Albumin to globulin ratioOrd ered By: Dina Ferrer on 10-03-2024 Albumin/Globulin [Mass ratio] 1.2 {ratio} 0.9-2.4 [facility] Automated lymphocyte count a s percentage of total leukocytesOrdered By: Dina Ferrer on 10-03-2024 Lymphocytes/100 WBC Auto (Unsp spec) 26.1 % 19-41 [facility] Basophil percentageOrdered B y: Dina Ferrer on 10-03-2024 Basophils/100 WBC (Bld) 0.8 % 0-1 [facility] Bilirubin, totalOrdered By: Dina Ferrer on 10-03-2024 Bilirubin [Mass/Vol] 0.80 mg/dL 0.20-1.00 [facility] Comment on above: For patients on eltr ombopag therapy, use of Dimension [place] TBIL is not recommended. Blood urea nitrogen (BUN)/cr eatinine ratioOrdered By: Dina Ferrer on 10-03-2024 Urea nitrogen/Creatinine [Mass ratio] 23.5 mg/mg High 10-20 [facility] CBC W/Diff, Automatedon 09-23 Absolute Lymph 0.98 X10 3/uL Normal 0.83-4.51 [facility] Comment on above: Performed By: #### L 100.0100, L500.4050 ####[facility] [address] [place], [address] Absolute Neut 2.4 X10 3/uL Normal 2.0-7.7 [facility] Comment on above: Performed By: #### L 100.0100, L500.4050 ####[facility] [address] [place], [address] Basophils/100 WBC (Bld) 0.8 % Normal 0-1 [facility] Comment on above: Performed By: #### L 100.0100, L500.4050 ####[facility] [address] [place], [address] Eosinophils/100 WBC (Bld) 2.7 % Normal 0-5 [facility] Comment on above: Performed By: #### L 100.0100, L500.4050 ####[facility] [address] [place], [address] Erythrocyte distribution width (RBC) [Ratio] 13.1 % Normal 11.6-14.6 [facility] Comment on above: Performed By: #### L 100.0100, L500.4050 ####[facility] [address] [place], [address] Hematocrit (Bld) [Volume fraction] 40.5 % Normal 37-47 [facility] Comment on above: Performed By: #### L 100.0100, L500.4050 ####[facility] [address] [place], [address] Hemoglobin (Bld) [Mass/Vol] 13.7 g/dL Normal 12.0-15.0 [facility] Comment on above: Performed By: #### L 100.0100, L500.4050 ####[facility] [address] [place], [address] IG% 0.300 Normal 0.0-0.9 [facility] Comment on above: Result Comment: IG% - Immature Granulocytes (promyelocytes, myelocytes and metamyelocytes) > 1% indicates that a LEFT SHIFT is Present. Performed By: #### L 100.0100, L500.4050 ####[facility] [address] [place], [address] Lymphocytes/100 WBC (Bld) 26.1 % Normal 19-41 [facility] Comment on above: Performed By: #### L 100.0100, L500.4050 ####[facility] [address] [place], [address] MCH (RBC) [Entitic mass] 35.1 pg High 27.0-32.0 [facility] Comment on above: Performed By: #### L 100.0100, L500.4050 ####[facility] [address] [place], [address] MCHC (RBC) [Mass/Vol] 33.8 g/dL Normal 32-36 [facility] Comment on above: Performed By: #### L 100.0100, L500.4050 ####[facility] [address] [place], [address] MCV (RBC) [Entitic vol] 103.8 fL High 81-99 [facility] Comment on above: Performed By: #### L 100.0100, L500.4050 ####[facility] [address] [place], [address] Monocytes/100 WBC (Bld) 6.6 % Normal 0-10 [facility] Comment on above: Performed By: #### L 100.0100, L500.4050 ####[facility] [address] [place], [address] Neutrophils/100 WBC (Bld) 63.5 % Normal 47-70 [facility] Comment on above: Performed By: #### L 100.0100, L500.4050 ####[facility] [address] [place], [address] Nucleated RBC (Bld) [#/Vol] 0 10*3/uL Normal 0-5 [facility] Comment on above: Performed By: #### L 100.0100, L500.4050 ####[facility] [address] [place], [address] Platelet mean volume (Bld) [Entitic vol] 10.1 fL Normal 6.2-12.0 [facility] Comment on above: Performed By: #### L 100.0100, L500.4050 ####[facility] [address] [place], [address] Platelets (Bld) [#/Vol] 189 10*3/uL Normal 150-450 [facility] Comment on above: Performed By: #### L 100.0100, L500.4050 ####[facility] [address] [place], [address] RBC (Bld) [#/Vol] 3.90 10*6/uL Low 4.2-5.4 [facility] Comment on above: Performed By: #### L 100.0100, L500.4050 ####[facility] [address] [place], [address] RDW SD 49.7 fl High 35.1-43.9 [facility] Comment on above: Performed By: #### L 100.0100, L500.4050 ####[facility] [address] [place], [address] WBC (Bld) [#/Vol] 3.8 10*3/uL Low 4.4-11.0 [facility] Comment on above: Performed By: #### L 100.0100, L500.4050 ####[facility] [address] [place], [address] Carbon dioxide measurementOr dered By: Dina Ferrer on 10-03-2024 CO2 [Moles/Vol] 29.0 mmol/L 21.0-32.0 [facility] Chloride measurementOrdered By: Dina Ferrer on 10-03-2024 Chloride [Moles/Vol] 104 mmol/L 98-107 [facility] Comprehensive Metabolic Prof ilon 10-03-2024 Albumin [Mass/Vol] 3.9 g/dL Normal 3.2-5.0 [facility] Comment on above: Performed By: #### L 100.0100, L500.4050 ####[facility] [address] [place], [address] Albumin/Globulin [Mass ratio] 1.2 {ratio} Normal 0.9-2.4 [facility] Comment on above: Performed By: #### L 100.0100, L500.4050 ####[facility] [address] [place], [address] ALK P 84 U/L Normal 45-117 [facility] Comment on above: Performed By: #### L 100.0100, L500.4050 ####[facility] [address] [place], [address] ALT [Catalytic activity/Vol] 16 U/L Normal 13-56 [facility] Comment on above: Performed By: #### L 100.0100, L500.4050 ####[facility] [address] [place], [address] AST [Catalytic activity/Vol] 20 U/L Normal 15-37 [facility] Comment on above: Performed By: #### L 100.0100, L500.4050 ####[facility] [address] [place], [address] Bilirubin [Mass/Vol] 0.80 mg/dL Normal 0.20-1.00 [facility] Comment on above: Result Comment: For patients on eltrombopag therapy, use of Dimension [place] TBIL is not recommended. Performed By: #### L 100.0100, L500.4050 ####[facility] [address] [place], [address] BUN/CRE 23.5 RATIO High 10-20 [facility] Comment on above: Performed By: #### L 100.0100, L500.4050 ####[facility] [address] [place], [address] CA,Total 9.3 mg/dL Normal 8.5-10.1 [facility] Comment on above: Performed By: #### L 100.0100, L500.4050 ####[facility] [address] [place], [address] Chloride [Moles/Vol] 104 mmol/L Normal 98-107 [facility] Comment on above: Performed By: #### L 100.0100, L500.4050 ####[facility] [address] [place], [address] CO2 [Moles/Vol] 29.0 mmol/L Normal 21.0-32.0 [facility] Comment on above: Performed By: #### L 100.0100, L500.4050 ####[facility] [address] [place], [address] Creatinine [Mass/Vol] 0.81 mg/dL Normal 0.55-1.02 [facility] Comment on above: Result Comment: The validity of the calculated GFR GFRAA in patients over 70 years has not been determined. Clinical correlation is essential. Performed By: #### L 100.0100, L500.4050 ####[facility] [address] [place], [address] EST GFR - AA 90 mL/min Normal >60 [facility] Comment on above: Result Comment: Afri can Thai GFR Calc Performed By: #### L 100.0100, L500.4050 ####[facility] [address] [place], [address] GAP 7 Normal 5-15 [facility] Comment on above: Performed By: #### L 100.0100, L500.4050 ####[facility] [address] [place], [address] GFR/1.73 sq M.predicted among non-blacks MDRD (S/P/Bld) [Vol rate/Area] 74 mL/min/{1.73_m2} Normal >60 [facility] Comment on above: Result Comment: Non- GFR Calc Performed By: #### L 100.0100, L500.4050 ####[facility] [address] [place], [address] Globulin (S) [Mass/Vol] 3.3 g/dL Normal 2.2-4.2 [facility] Comment on above: Performed By: #### L 100.0100, L500.4050 ####[facility] [address] [place], [address] Glucose [Mass/Vol] 133 mg/dL High 74-106 [facility] Comment on above: Result Comment: Fast ing Glucose result greater than or equal to 126 mg/dL suggests DIABETES MELLITUS per A.D.A. criteria. Performed By: #### L 100.0100, L500.4050 ####[facility] [address] [place], [address] Potassium [Moles/Vol] 3.5 mmol/L Normal 3.5-5.1 [facility] Comment on above: Performed By: #### L 100.0100, L500.4050 ####[facility] [address] [place], [address] Sodium [Moles/Vol] 140 mmol/L Normal 136-145 [facility] Comment on above: Performed By: #### L 100.0100, L500.4050 ####[facility] [address] [place], [address] T PROT 7.2 g/dL Normal 6.4-8.2 [facility] Comment on above: Performed By: #### L 100.0100, L500.4050 ####[facility] [address] [place], [address] Urea nitrogen [Mass/Vol] 19 mg/dL High 7-18 [facility] Comment on above: Performed By: #### L 100.0100, L500.4050 ####[facility] [address] [place], [address] Eosinophil percentageOrdered By: Dina Ferrer on 10-03-2024 Eosinophils/100 WBC (Bld) 2.7 % 0-5 [facility] Erythrocyte distribution wid th ratioOrdered By: Dina Ferrer on 10-03-2024 Erythrocyte distribution width (RBC) [Ratio] 13.1 % 11.6-14.6 [facility] Erythrocyte distribution wid th standard deviationOrdered By: Dina Ferrer on 10-03-2024 Erythrocyte distribution width (RBC) [Entitic vol] 49.7 fL High 35.1-43.9 [facility] Erythrocyte distribution width (RBC) [Ratio] 49.7 fl High 35.1-43.9 [facility] Estimated glomerular filtrat ion rate (GFR) AmericanOrdered By: Dina Ferrer on 10-03-2024 Estimated GFR (MDRD) Amer 90 mL/min >60 [facility] Comment on above: GFR Calc Glomerular filtration rate ( GFR) estimationOrdered By: Dina Ferrer on 10-03-2024 Estimated GFR (MDRD) Non-Af Amer 74 mL/min >60 [facility] Comment on above: Non- GFR Calc GFR/1.73 sq M.predicted among non-blacks MDRD (S/P/Bld) [Vol rate/Area] 74 mL/min/{1.73_m2} >60 [facility] Comment on above: Non- GFR Calc Glucose measurementOrdered B y: Dina Ferrer on 10-03-2024 Glucose [Mass/Vol] 133 mg/dL High 74-106 [facility] Comment on above: Fasting Glucose resu lt greater than or equal to 126 mg/dL suggests DIABETES MELLITUS per A.D.A. criteria. Hematocrit Auto (Bld) [Volum e fraction]Ordered By: Dina Ferrer on 10-03-2024 Hematocrit (Bld) [Volume fraction] 40.5 % 37-47 [facility] Hemoglobin measurementOrdere d By: Dina Ferrer on 10-03-2024 Hemoglobin (Bld) [Mass/Vol] 13.7 g/dL 12.0-15.0 [facility] Immature granulocytes/100 WB C Auto (Bld)Ordered By: Dina Ferrer on 10-03-2024 Immature granulocytes/100 WBC (Bld) 0.300 % 0.0-0.9 [facility] Comment on above: IG% - Immature Granu locytes (promyelocytes, myelocytes and metamyelocytes) > 1% indicates that a LEFT SHIFT is Present. Laboratory - Chemistry and C hemistry - challengeOrdered By: Dina Ferrer on 10-03-2024 AST [Catalytic activity/Vol] 20 U/L 15-37 [facility] Lymphocytes Auto (Unsp spec) [#/Vol]Ordered By: Dina Ferrer on 10-03-2024 Lymphocytes (Bld) [#/Vol] 0.98 10*3/uL 0.83-4.51 [facility] Lymphocytes/100 WBC Auto (Un sp spec)Ordered By: Dina Ferrer on 10-03-2024 Lymphocytes/100 WBC (Bld) 26.1 % 19-41 [facility] MCV (mean corpuscular volume ) determinationOrdered By: Dina Ferrer on 10-03-2024 MCV (RBC) [Entitic vol] 103.8 fL High 81-99 [facility] Mean corpuscular hemoglobin (MCH) determinationOrdered By: Dina Ferrer on 10-03-2024 MCH (RBC) [Entitic mass] 35.1 pg High 27.0-32.0 [facility] Mean corpuscular hemoglobin concentration (MCHC) determinationOrdered By: Dina Ferrer on 10-03-2024 MCHC (RBC) [Mass/Vol] 33.8 g/dL 32-36 [facility] Mean platelet volume determi nationOrdered By: Dina Ferrer on 10-03-2024 Platelet mean volume (Bld) [Entitic vol] 10.1 fL 6.2-12.0 [facility] Monocyte percentageOrdered B y: Dina Ferrer on 10-03-2024 Monocytes/100 WBC (Bld) 6.6 % 0-10 [facility] Neutrophil percentageOrdered By: Dina Ferrer on 10-03-2024 Neutrophils/100 WBC (Bld) 63.5 % 47-70 [facility] Nucleated red blood cell per centageOrdered By: Dina Ferrer on 10-03-2024 Nucleated RBC/100 WBC (Bld) [Ratio] 0 % 0-5 [facility] Platelet countOrdered By: Ba Ferrer on 10-03-2024 Platelets (Bld) [#/Vol] 189 10*3/uL 150-450 [facility] Potassium measurementOrdered By: Dina Ferrer on 10-03-2024 Potassium [Moles/Vol] 3.5 mmol/L 3.5-5.1 [facility] RBC Auto (Bld) [#/Vol]Ordere d By: Dina Ferrer on 10-03-2024 RBC (Bld) [#/Vol] 3.90 10*6/uL Low 4.2-5.4 [facility] Serum anion gap measurementO rdered By: Dina Ferrer on 10-03-2024 Anion gap [Moles/Vol] 7 mmol/L 5-15 [facility] Serum globulin measurementOr dered By: Dina Ferrer on 10-03-2024 Globulin (S) [Mass/Vol] 3.3 g/dL 2.2-4.2 [facility] Serum or plasma alanine abraham otransferase (ALT) measurementOrdered By: Dina Ferrer on 10-03-2024 ALT [Catalytic activity/Vol] 16 U/L 13-56 [facility] Serum or plasma albumin shira urement (mass/volume)Ordered By: Dina Ferrer on 10-03-2024 Albumin [Mass/Vol] 3.9 g/dL 3.2-5.0 [facility] Serum or plasma alkaline ramone sphatase measurementOrdered By: Dina Ferrer on 10-03-2024 ALP [Catalytic activity/Vol] 84 U/L 45-117 [facility] Serum or plasma calcium shira urement (mass/volume)Ordered By: Dina Ferrer on 10-03-2024 Calcium [Mass/Vol] 9.3 mg/dL 8.5-10.1 [facility] Serum or plasma creatinine m easurement (mass/volume)Ordered By: Dina Ferrer on 10-03-2024 Creatinine [Mass/Vol] 0.81 mg/dL 0.55-1.02 [facility] Comment on above: The validity of the calculated GFR & GFRAA in patients over 70 years has not been determined. Clinical correlation is essential. Serum or plasma urea nitroge n measurement (mass/volume)Ordered By: Dina Ferrer on 10-03-2024 Urea nitrogen [Mass/Vol] 19 mg/dL High 7-18 [facility] Sodium levelOrdered By: Shaila Ferrer on 10-03-2024 Sodium [Moles/Vol] 140 mmol/L 136-145 [facility] Total proteinOrdered By: Issac Ferrer on 10-03-2024 Protein [Mass/Vol] 7.2 g/dL 6.4-8.2 [facility] White blood cell (WBC) count Ordered By: Dina Ferrer on 10-03-2024 WBC (Bld) [#/Vol] 3.8 10*3/uL Low 4.4-11.0 [facility] CNOVon 09-21-2024 [facility] ELISHA GODFREY ([id number]) 1955 F Date Time Provider Department 09/21/24 8:40 [facility] During your visit today, we recorded the following information about you: Pulse Blood pressure Weight Height 58/minute 138/78 88.4 kg 1.562 m Kade Fry MD 09/21/2024 8:32 PM Signed Elisha Godfrey is a 69 year old female here for a Medicare wellness visit. Medicare Health Risk Assessment General Health good Exercise: Minutes/Day none Exercise: Days/Week none Alcohol: Daily Use none Alcohol: Drinks/Day none Alcohol: 6 or more drinks none Feel off balance At times with her sinus congestion. Concerns: Teeth/Dentures no Concerns: Sexual function no Troubled by feelings Some stress Frequency: Eating healthy diet daily ADLs requiring help none Safety precautions in home/vehicle No loose rugs, has grab bars, has stair rails and wears seat belts. Smoke, vape, chews tobacco never Difficulty hearing Yes, putting off seeing specialist. Difficulty seeing Wears glasses Current Providers Specialists: I have reviewed specialist-related care of the patient in the medical record. Current care team: Patient Care Team: Kade Fry MD as PCP - General (Family Medicine) Addie Birmingham APRN.ROSHAN as Atg Architect (Family Medicine) Ena Aguiar PA-C as Atg Architect (Family Medicine) Dr. Crockett: Rheum Medical/Family history review Reviewed and updated problem list, medical/surgical/family/soc ial history, medications, and allergies. Opioid use review Opioid Medications (last 90 days) No data to display Anxiety/Depression screening Recommendation: no further intervention at this time Cognitive screening Mini Cog Score: 5 Cognitive screening reviewed and No further action needed (score 3-5). Functional Observation Was the patient's Timed Up AND Go test unsteady or >= 12 seconds? No Advance Care Planning Patient did not wish or was not able to name a surrogate decision maker or provide an advance care plan Measurements BP 144/82 Pulse (!) 58 Ht 156.2 cm (5' 1.5) Wt 88.4 kg (194 lb 12.8 oz) BMI 36.21 kg/m? Vision Screening: Follows with optometry/ophthalmology Assessment/Plan Medicare annual wellness visit, subsequent (Z00.00) - Counseled on healthy diet and regular exercise - Fall avoidance information provided - Personalized prevention plan provided See below Chief Complaint Patient presents with: Medicare Wellness Exam HPI Elisha Godfrey is a 69 year old female who presents here today for Chronic Medical Conditions. and Medicare Annual Visit. Patient with hx of HTN,hyperlipidemia, inflammatory arthritis, GERD, Fibro, chronic back pain, osteopenia, and those as below Patient has been doing ok. Has had some family related issues causing some stress bu does not feel depressed or anxious. Past medical history, appointments, medications, allergies reviewed. Previous Medical History PAST MEDICAL HISTORY Diagnosis Date BAUTISTA positive 09/25/2021 Arthritis Atrophic vaginitis 08/03/2012 Calcaneal spur 07/14/2005 Cystocele 07/17/2013 Diverticulosis of colon (without mention of hemorrhage) Eczema 08/28/2019 Elevated blood sugar 09/21/2022 Elevated glucose 09/21/2022 Essential hypertension 12/14/2009 Female stress incontinence 07/17/2013 [...] repeat in 3 years, with MAC at [facility] COLONOSCOPY FLX DX W/COLLJ SPEC WHEN PFRMD 02/22/2006 COLONOSCOPY FLX DX W/COLLJ SPEC WHEN PFRMD 03/23/2016 Colonoscopy, repeat 5 years EGD W/O [facility] SPEC VARICIES INJ 10/29/2021 ESOPHAGOGASTRODUODENOSCOPY TRANSORAL DIAGNOSTIC 12/23/1998 EGD LAPAROSCOPIC APPENDECTOMY 07/12/2007 Early acute LIG/TRNSXJ FLP TUBE ABDL/VAG APPR UNI/BI Tubal ligation PAST SURGICAL HISTORY OF lipoma back, left back PAST SURGICAL HISTORY OF Right 06/02/2016 Dr. Matthew COATS, Right Knee Scope SLING OPER STRES INCONTINENCE 09/20/2012 (more content not included)... Normal [facility] CBC W Auto Differential pane l (Bld)on 09-14-2024 Basophils (Bld) [#/Vol] 0.04 10*3/uL Normal <0.11 [facility] Comment on above: Order Comment: Speci men Type: BLOOD SPECIMEN Ordering Facility: [facility] Address: [address] [place] [address] Performed By: #### 5 7021-8 #### [facility] CLIA [id number] [address] [place] [address] [place] Basophils/100 WBC (Bld) 1.0 % Normal [facility] Comment on above: Order Comment: Speci men Type: BLOOD SPECIMEN Ordering Facility: [facility] Address: [address] [place] [address] Performed By: #### 5 7021-8 #### [facility] CLIA [id number] [address] [place] [address] [place] Differential cell count method Nom (Bld) Auto Normal [facility] Comment on above: Order Comment: Speci men Type: BLOOD SPECIMEN Ordering Facility: [facility] Address: [address] [place] [address] Performed By: #### 5 7021-8 #### [facility] CLIA [id number] [address] [place] [address] [place] Eosinophils (Bld) [#/Vol] 0.13 10*3/uL Normal <0.46 [facility] Comment on above: Order Comment: Speci men Type: BLOOD SPECIMEN Ordering Facility: [facility] Address: [address] [place] [address] Performed By: #### 5 7021-8 #### [facility] CLIA [id number] [address] [place] [address] [place] Eosinophils/100 WBC (Bld) 3.2 % Normal [facility] Comment on above: Order Comment: Speci men Type: BLOOD SPECIMEN Ordering Facility: [facility] Address: [address] [place] [address] Performed By: #### 5 7021-8 #### [facility] CLIA [id number] [address] [place] [address] [place] Erythrocyte distribution width (RBC) [Ratio] 13.1 % Normal 11.5-15.0 [facility] Comment on above: Order Comment: Speci men Type: BLOOD SPECIMEN Ordering Facility: [facility] Address: [address] [place] [address] Performed By: #### 5 7021-8 #### [facility] CLIA [id number] [address] [place] [address] [place] Hematocrit (Bld) [Volume fraction] 41.3 % Normal 36.0-46.0 [facility] Comment on above: Order Comment: Speci men Type: BLOOD SPECIMEN Ordering Facility: [facility] Address: [address] [place] [address] Performed By: #### 5 7021-8 #### [facility] CLIA [id number] [address] [place] [address] [place] Hemoglobin (Bld) [Mass/Vol] 13.7 g/dL Normal 11.5-15.5 [facility] Comment on above: Order Comment: Speci men Type: BLOOD SPECIMEN Ordering Facility: [facility] Address: [address] [place] [address] Performed By: #### 5 7021-8 #### [facility] CLIA [id number] [address] [place] [address] [place] Immature granulocytes (Bld) [#/Vol] 10*3/uL Normal <0.10 [facility] Comment on above: Order Comment: Speci men Type: BLOOD SPECIMEN Ordering Facility: [facility] Address: [address] [place] [address] Performed By: #### 5 7021-8 #### [facility] CLIA [id number] [address] [place] [address] [place] Immature granulocytes/100 WBC (Bld) 0.2 % Normal [facility] Comment on above: Order Comment: Speci men Type: BLOOD SPECIMEN Ordering Facility: [facility] Address: [address] [place] [address] Performed By: #### 5 7021-8 #### [facility] CLIA [id number] [address] [place] [address] [place] Lymphocytes (Bld) [#/Vol] 1.12 10*3/uL Normal 1.00-4.00 [facility] Comment on above: Order Comment: Speci men Type: BLOOD SPECIMEN Ordering Facility: [facility] Address: [address] [place] [address] Performed By: #### 5 7021-8 #### [facility] CLIA [id number] [address] [place] [address] [place] Lymphocytes/100 WBC (Bld) 27.5 % Normal [facility] Comment on above: Order Comment: Speci men Type: BLOOD SPECIMEN Ordering Facility: [facility] Address: [address] [place] [address] Performed By: #### 5 7021-8 #### [facility] CLIA [id number] [address] [place] [address] [place] MCH (RBC) [Entitic mass] 35.1 pg High 26.0-34.0 [facility] Comment on above: Order Comment: Speci men Type: BLOOD SPECIMEN Ordering Facility: [facility] Address: [address] [place] [address] Performed By: #### 5 7021-8 #### [facility] CLIA [id number] [address] [place] [address] [place] MCHC (RBC) [Mass/Vol] 33.2 g/dL Normal 30.5-36.0 [facility] Comment on above: Order Comment: Speci men Type: BLOOD SPECIMEN Ordering Facility: [facility] Address: [address] [place] [address] Performed By: #### 5 7021-8 #### [facility] CLIA [id number] [address] [place] [address] [place] MCV (RBC) [Entitic vol] 105.9 fL High 80.0-100.0 [facility] Comment on above: Order Comment: Speci men Type: BLOOD SPECIMEN Ordering Facility: [facility] Address: [address] [place] [address] Performed By: #### 5 7021-8 #### [facility] CLIA [id number] [address] [place] [address] [place] Monocytes (Bld) [#/Vol] 0.25 10*3/uL Normal <0.87 [facility] Comment on above: Order Comment: Speci men Type: BLOOD SPECIMEN Ordering Facility: [facility] Address: [address] [place] [address] Performed By: #### 5 7021-8 #### [facility] CLIA [id number] [address] [place] [address] [place] Monocytes/100 WBC (Bld) 6.1 % Normal [facility] Comment on above: Order Comment: Speci men Type: BLOOD SPECIMEN Ordering Facility: [facility] Address: [address] [place] [address] Performed By: #### 5 7021-8 #### [facility] CLIA [id number] [address] [place] [address] [place] Neutrophils (Bld) [#/Vol] 2.52 10*3/uL Normal 1.45-7.50 [facility] Comment on above: Order Comment: Speci men Type: BLOOD SPECIMEN Ordering Facility: [facility] Address: [address] [place] [address] Performed By: #### 5 7021-8 #### [facility] CLIA [id number] [address] [place] [address] [place] Neutrophils/100 WBC (Bld) 62.0 % Normal [facility] Comment on above: Order Comment: Speci men Type: BLOOD SPECIMEN Ordering Facility: [facility] Address: [address] [place] [address] Performed By: #### 5 7021-8 #### [facility] CLIA [id number] [address] [place] [address] [place] Nucleated RBC (Bld) [#/Vol] 10*3/uL Normal <0.01 [facility] Comment on above: Order Comment: Speci men Type: BLOOD SPECIMEN Ordering Facility: [facility] Address: [address] [place] [address] Performed By: #### 5 7021-8 #### [facility] CLIA [id number] [address] [place] [address] [place] Nucleated RBC/100 WBC (Bld) [Ratio] 0.0 /100 WBC Normal [facility] Comment on above: Order Comment: Speci men Type: BLOOD SPECIMEN Ordering Facility: [facility] Address: [address] [place] [address] Performed By: #### 5 7021-8 #### [facility] CLIA [id number] [address] [place] [address] [place] Platelet mean volume (Bld) [Entitic vol] 10.7 fL Normal 9.0-12.7 [facility] Comment on above: Order Comment: Speci men Type: BLOOD SPECIMEN Ordering Facility: [facility] Address: [address] [place] [address] Performed By: #### 5 7021-8 #### [facility] CLIA [id number] [address] [place] [address] [place] Platelets (Bld) [#/Vol] 197 10*3/uL Normal 150-400 [facility] Comment on above: Order Comment: Speci men Type: BLOOD SPECIMEN Ordering Facility: [facility] Address: [address] [place] [address] Performed By: #### 5 7021-8 #### [facility] CLIA [id number] [address] [place] [address] [place] RBC (Bld) [#/Vol] 3.90 10*6/uL Normal 3.90-5.[address] [facility] Comment on above: Order Comment: Speci men Type: BLOOD SPECIMEN Ordering Facility: [facility] Address: [address] [place] [address] Performed By: #### 5 7021-8 #### [facility] CLIA [id number] [address] [place] [address] [place] WBC (Bld) [#/Vol] 4.07 10*3/uL Normal 3.70-11.[address] [facility] Comment on above: Order Comment: Speci men Type: BLOOD SPECIMEN Ordering Facility: [facility] Address: [address] [place] [address] Performed By: #### 5 7021-8 #### [facility] CLIA [id number] [address] [place] [address] [place] Comprehensive metabolic 2000 panelon 09-14-2024 Albumin [Mass/Vol] 4.7 g/dL Normal 3.9-4.9 [facility] Comment on above: Order Comment: Speci men Type: BLOOD SPECIMENOrdering Facility: [facility] Address: [address] [place] [address] Performed By: #### 2 4323-8, LIPNF, 44835-6, 3016-3 ####[facility] [id number] [place] [address] [place] ALP [Catalytic activity/Vol] 90 U/L Normal 34-123 [facility] Comment on above: Order Comment: Speci men Type: BLOOD SPECIMENOrdering Facility: [facility] Address: [address] [place] [address] Performed By: #### 2 4323-8, LIPNF, 52674-7, 3016-3 ####[facility] [id number] [place] [address] [place] ALT [Catalytic activity/Vol] 16 U/L Normal 7-38 [facility] Comment on above: Order Comment: Speci men Type: BLOOD SPECIMENOrdering Facility: [facility] Address: [address] [place] [address] Performed By: #### 2 4323-8, LIPNF, , 3015-3 ####[facility] [id number] [place] [address] [place] Anion gap [Moles/Vol] 9 mmol/L Normal 8-15 [facility] Comment on above: Order Comment: Speci men Type: BLOOD SPECIMENOrdering Facility: [facility] Address: [address] [place] [address] Performed By: #### 2 4323-8, LIPNF, , 3 ####[facility] [id number] [place] [address] [place] AST [Catalytic activity/Vol] 31 U/L Normal 13-35 [facility] Comment on above: Order Comment: Speci men Type: BLOOD SPECIMENOrdering Facility: [facility] Address: [address] [place] [address] Performed By: #### 2 4323-8, LIPNF, , 3 ####[facility] [id number] [place] [address] [place] Bilirubin [Mass/Vol] 0.5 mg/dL Normal 0.2-1.3 [facility] Comment on above: Order Comment: Speci men Type: BLOOD SPECIMENOrdering Facility: [facility] Address: [address] [place] [address] Performed By: #### 2 4323-8, LIPNF, , 3015-3 ####[facility] [id number] [address] [address] [place] Calcium [Mass/Vol] 9.7 mg/dL Normal 8.5-10.2 [facility] Comment on above: Order Comment: Speci men Type: BLOOD SPECIMENOrdering Facility: [facility] Address: [address] [place] [address] Performed By: #### 2 4323-8, LIPNF, , 3015-3 ####[facility] [id number] [place] [address] [place] Chloride [Moles/Vol] 105 mmol/L Normal 98-107 [facility] Comment on above: Order Comment: Speci men Type: BLOOD SPECIMENOrdering Facility: [facility] Address: [address] [place] [address] Performed By: #### 2 4323-8, LIPNF, , 3 ####[facility] [id number] [place] [address] [place] CO2 [Moles/Vol] 28 mmol/L Normal 22-30 [facility] Comment on above: Order Comment: Speci men Type: BLOOD SPECIMENOrdering Facility: [facility] Address: [address] [place] [address] Performed By: #### 2 4323-8, LIPNF, , 3 ####[facility] [id number] [place] [address] [place] Creatinine [Mass/Vol] 0.75 mg/dL Normal 0.58-0.96 [facility] Comment on above: Order Comment: Speci men Type: BLOOD SPECIMENOrdering Facility: [facility] Address: [address] [place] [address] Performed By: #### 2 4323-8, LIPNF, , 3015-3 ####[facility] [id number] [address] [address] [place] Creatinine and Glomerular filtration rate.predicted panel (S/P/Bld) 86 mL/min/1.73m??? Normal >=60 [facility] Comment on above: Order Comment: Hayrachel childs Type: BLOOD SPECIMENOrdering Facility: [facility] Address: [address] [place] [address] Result Comment: Niru mated Glomerular Filtration Rate (eGFR) is calculated using the 2020 CKD-EPI creatinine equation. This equation utilizes serum creatinine, sex, and age as parameters. The creatinine assay has traceable calibration to isotope dilution-mass spectrometry. Refer to KDIGO guidelines for clinical interpretation. In patients with unstable renal function, e.g. those with acute kidney injury, the eGFR may not accurately reflect actual GFR. Performed By: #### 2 4323-8, LIPJULIETA, 80902-0, 3015-3 ####[facility] [id number] [place] [address] [place] Glucose [Mass/Vol] 112 mg/dL High 74-99 [facility] Comment on above: Order Comment: Edith childs Type: BLOOD SPECIMENOrdering Facility: [facility] Address: [address] [place] [address] Result Comment: The [place] Diabetes Association (ADA) provides guidance for cutoff values for fasting glucose and random glucose. The ADA defines fasting as no caloric intake for at least 8 hours. Fasting plasma glucose results between 100 to 125 mg/dL indicate increased risk for diabetes (prediabetes). Fasting plasma glucose results greater than or equal to 126 mg/dL meet the criteria for diagnosis of diabetes. In the absence of unequivocal hyperglycemia, results should be confirmed by repeat testing. In a patient with classic symptoms of hyperglycemia or hyperglycemic crisis, random plasma glucose results greater than or equal to 200 mg/dL meet the criteria for diagnosis of diabetes. Reference: Standards of Medical Care in Diabetes 2016, [place] [employer] Association. Diabetes Care. 2016.39(Suppl 1). Performed By: #### 2 4323-8, LIPNF, 41614-2, 3015-3 ####[facility] [id number] [place] [address] [place] Potassium [Moles/Vol] 4.4 mmol/L Normal 3.7-5.1 [facility] Comment on above: Order Comment: Speci men Type: BLOOD SPECIMENOrdering Facility: [facility] Address: [address] [place] [address] Performed By: #### 2 4323-8, LIPNF, , 3015-3 ####[facility] [id number] [address] [address] [place] Protein [Mass/Vol] 7.2 g/dL Normal 6.3-8.0 [facility] Comment on above: Order Comment: Speci men Type: BLOOD SPECIMENOrdering Facility: [facility] Address: [address] [place] [address] Performed By: #### 2 4323-8, LIPNF, , 3 ####[facility] [id number] [place] [address] [place] Sodium [Moles/Vol] 142 mmol/L Normal 136-144 [facility] Comment on above: Order Comment: Speci men Type: BLOOD SPECIMENOrdering Facility: [facility] Address: [address] [place] [address] Performed By: #### 2 4323-8, LIPNF, , 3 ####[facility] [id number] [place] [address] [place] Urea nitrogen [Mass/Vol] 19 mg/dL Normal 7-21 [facility] Comment on above: Order Comment: Speci men Type: BLOOD SPECIMENOrdering Facility: [facility] Address: [address] [place] [address] Performed By: #### 2 4323-8, LIPNF, , 3015-3 ####[facility] [id number] [address] [address] [place] HbA1c (Bld)on 09-14-2024 Average glucose Estimated from glycated hemoglobin (Bld) [Mass/Vol] 117 mg/dL Normal [facility] Comment on above: Order Comment: Edith childs Type: BLOOD SPECIMEN Ordering Facility: [facility] Address: [address] [place] [address] Result Comment: eAG: (Estimated average glucose) is a calculated value from HgbA1c and is outbound sales representative of the average blood glucose level in the last 2-3 month period. Performed By: #### 5 5454-3 #### [facility] CLIA [id number] [address] [place] [address] [place] HbA1c (Bld) [Mass fraction] 5.7 % High 4.3-5.6 [facility] Comment on above: Order Comment: Edith childs Type: BLOOD SPECIMEN [facility] [facility] Address: [address] [place] [address] Result Comment: Amer [place] Diabetes Association guidelines indicate that patients with HgbA1c in the range 5.7-6.4% are at increased risk for development of diabetes, and intervention by lifestyle modification may be beneficial. HgbA1c greater or equal to 6.5% is considered diagnostic of diabetes. Performed By: #### 5 5454-3 #### [facility] CLIA [id number] [address] [place] [address] [place] LIPID PANEL, NONFASTINGon Cholesterol [Mass/Vol] 184 mg/dL Normal <200 [facility] Comment on above: Order Comment: Edith childs Type: BLOOD SPECIMENOrdering Facility: [facility] Address: [address] [place] [address] Result Comment: <200 mg/dL, Desirable 200-239 mg/dL, Borderline high >239 mg/dL, High Performed By: #### 2 4323-8, LIPNF, 55728-1, 3016-3 ####[facility]IA [id number] [place] [address] [place] HDL CHOLESTEROL, NF 49 mg/dL Normal >[address] [facility] Comment on above: Order Comment: Edith childs Type: BLOOD SPECIMENOrdering Facility: [facility] Address: [address] [place] [address] Result Comment: 40-5 9 mg/dL, Acceptable >59 mg/dL, High: Negative risk factor for coronary heart disease <40 mg/dL, Low: Positive risk factor for coronary heart disease Performed By: #### 2 4323-8, LIPNF, 29674-0, 6-3 ####[facility]IA [id number] [place] [address] [place] LDL CHOLESTEROL, NF 114 mg/dL High <[address] [facility] Comment on above: Order Comment: Speci men Type: BLOOD SPECIMENOrdering Facility: [facility] Address: [address] [place] [address] Result Comment: <100 mg/dL, Optimal 100-129 mg/dL, Near optimal/above optimal 130-159 mg/dL, Borderline high 160-189 mg/dL, High >189 mg/dL, Very high Secondary prevention optimal LDL Cholesterol levels are recommended to be < 70 mg/dL Performed By: #### 2 4323-8, LIPNF, 67020-7, 3015-3 ####[facility]IA [id number] [place] [address] [place] LDL/HDL RATIO, NF 2.33 mg/dL Normal <2.54 [facility] Comment on above: Order Comment: Speci men Type: BLOOD SPECIMENOrdering Facility: [facility] Address: [address] [place] [address] Result Comment: Reftresa coello: 1. National Cholesterol Education Program ATP III Guideline At-A-Glance Quick Desk Reference: National Heart, Lung, and Blood [place]. National Institutes of Health. 2001: NIH Publication No. 01-3305. 2. An International Atherosclerosis Society position paper: global recommendations for the management of dyslipidemia: executive summary, Atherosclerosis. 2014: 232(2):410-413. Performed By: #### 2 4323-8, LIPNF, 28611-3, 3015-3 ####[facility] [id number] [place] [address] [place] NON HDL CHOL, NF 135 mg/dL High <130 [facility] Comment on above: Order Comment: Speci men Type: BLOOD SPECIMENOrdering Facility: [facility] Address: [address] [place] [address] Result Comment: <130 mg/dL, Optimal 130-159 mg/dL, Near optimal/above optimal 160-189 mg/dL, Borderline high 190-219 mg/dL, High >219 mg/dL, Very high Secondary prevention optimal non HDL Cholesterol levels are recommended to be <100 mg/dL Performed By: #### 2 4323-8, LIPNF, 67260-1, 6-3 ####[facility] [id number] [place] [address] [place] T CHOL/HDL RATIO NF 3.76 mg/dL Normal <5.[address] [facility] Comment on above: Order Comment: Speci men Type: BLOOD SPECIMENOrdering Facility: [facility] Address: [address] [place] [address] Performed By: #### 2 4323-8, LIPNF, 20526-6, 6-3 ####[facility]IA [id number] [place] [address] [place] TRIGLYCERIDES, NF 106 mg/dL Normal <150 [facility] Comment on above: Order Comment: Speci men Type: BLOOD SPECIMENOrdering Facility: [facility] Address: [address] [place] [address] Result Comment: <150 mg/dL, Normal 150-199 mg/dL, Borderline high 200-499 mg/dL, High >499 mg/dL, Very high Performed By: #### 2 4323-8, LIPNF, 07306-3, 6-3 ####[facility]CLIA [id number] [place] [address] [place] VLDL CHOLESTEROL, NF 21 mg/dL Normal <30 [facility] Comment on above: Order Comment: Speci men Type: BLOOD SPECIMENOrdering Facility: [facility] Address: [address] [place] [address] Performed By: #### 2 4323-8, LIPNF, , 6-3 ####[facility]IA [id number] [place] [id number] [place] Magnesium SerPl-mCncon 09-14 Magnesium [Mass/Vol] 2.3 mg/dL Normal 1.7-2.3 [facility] Comment on above: Order Comment: Speci men Type: BLOOD SPECIMENOrdering Facility: [facility] Address: [address] [place] [address] Performed By: #### 2 4323-8, LIPNF, , 6-3 ####[facility]IA [id number] [place] [address] [place] TSH SerPl-aCncon 09-14-2024 TSH Qn 2.520 m[IU]/L Normal 0.270-4.20 0 [facility] Comment on above: Order Comment: Speci men Type: BLOOD SPECIMENOrdering Facility: [facility] Address: [address] [place] [address] Performed By: #### 2 4323-8, LIPNF, , 6-3 ####[facility]IA [id number] [place] [address] [place] Urinalysis complete panel (U )on 09-14-2024 Bacteria LM.HPF (Urine sed) [#/Area] Negative Normal Negative [facility] Comment on above: Order Comment: Speci men Type: URINE SPECIMENOrdering Facility: [facility] Address: [address] [place] [address] Performed By: #### 2 4356-8 ####[facility]IA [id number] [place] [address] [place] Bilirubin Ql (U) Negative Normal Negative [facility] Comment on above: Order Comment: Speci men Type: URINE SPECIMENOrdering Facility: [facility] Address: [address] [place] [address] Performed By: #### 2 4356-8 ####[facility]CLIA [id number] [address] [address] [place] Clarity (Unsp spec) Clear Normal Clear [facility] Comment on above: Order Comment: Speci men Type: URINE SPECIMENOrdering Facility: [facility] Address: [address] [place] [address] Performed By: #### 2 4356-8 ####[facility]CLIA [id number] [place] [address] [place] Color (U) Yellow Normal Yellow [facility] Comment on above: Order Comment: Speci men Type: URINE SPECIMENOrdering Facility: [facility] Address: [address] [place] [address] Performed By: #### 2 4356-8 ####[facility]IA [id number] [place] [address] [place] Epithelial cells LM.HPF (Urine sed) [#/Area] None Seen Normal [facility] Comment on above: Order Comment: Speci men Type: URINE SPECIMENOrdering Facility: [facility] Address: [address] [place] [address] Performed By: #### 2 4356-8 ####[facility]CLIA [id number] [place] [address] [place] Glucose Test strip (U) [Mass/Vol] Negative Normal Negative [facility] Comment on above: Order Comment: Speci men Type: URINE SPECIMENOrdering Facility: [facility] Address: [address] [place] [address] Performed By: #### 2 4356-8 ####[facility]CLIA [id number] [place] [address] [place] Hemoglobin Ql (U) Negative Normal Negative [facility] Comment on above: Order Comment: Speci men Type: URINE SPECIMENOrdering Facility: [facility] Address: [address] [place] [address] Performed By: #### 2 4356-8 ####[facility]CLIA [id number] [place] [address] [place] Hyaline casts (Urine sed) [#/Area] 0 /[LPF] Normal 0 /LPF [facility] Comment on above: Order Comment: Speci men Type: URINE SPECIMENOrdering Facility: [facility] Address: [address] [place] [address] Performed By: #### 2 4356-8 ####[facility]CLIA [id number] [place] [address] [place] Ketones Ql (U) Negative Normal Negative [facility] Comment on above: Order Comment: Speci men Type: URINE SPECIMENOrdering Facility: [facility] Address: [address] [place] [address] Performed By: #### 2 4356-8 ####[facility]CLIA [id number] [place] [address] [place] Leukocyte esterase Test strip Ql (U) Trace Abnormal Negative [facility] Comment on above: Order Comment: Speci men Type: URINE SPECIMENOrdering Facility: [facility] Address: [address] [place] [address] Performed By: #### 2 4356-8 ####[facility]CLIA [id number] [place] [address] [place] Nitrite Ql (U) Negative Normal Negative [facility] Comment on above: Order Comment: Speci men Type: URINE SPECIMENOrdering Facility: [facility] Address: [address] [place] [address] Performed By: #### 2 4356-8 ####[facility]CLIA [id number] [place] [address] [place] pH (U) 6.0 [pH] Normal <8.5 [facility] Comment on above: Order Comment: Speci men Type: URINE SPECIMENOrdering Facility: [facility] Address: [address] [place] [address] Performed By: #### 2 4356-8 ####[facility]IA [id number] [place] [address] [place] Protein (U) [Mass/Vol] Negative Normal Negative [facility] Comment on above: Order Comment: Speci men Type: URINE SPECIMENOrdering Facility: [facility] Address: [address] [place] [address] Performed By: #### 2 4356-8 ####[facility] [id number] [place] [address] [place] RBC LM.HPF (Urine sed) [#/Area] 0-2 /HPF Normal 0-2 /HPF [facility] Comment on above: Order Comment: Speci men Type: URINE SPECIMENOrdering Facility: [facility] Address: [address] [place] [address] Performed By: #### 2 4356-8 ####[facility] [id number] [place] [address] [place] Specific gravity (U) [Rel density] 1.011 Normal 1.005-1.03 0 [facility] Comment on above: Order Comment: Speci men Type: URINE SPECIMENOrdering Facility: [facility] Address: [address] [place] [address] Performed By: #### 2 4356-8 ####[facility] [id number] [place] [address] [place] Urobilinogen Ql (U) 0.2 EU/dL Normal 0.2-1.0 EU/dL [facility] Comment on above: Order Comment: Speci men Type: URINE SPECIMENOrdering Facility: [facility] Address: [address] [place] [address] Performed By: #### 2 4356-8 ####[facility]IA [id number] [place] [address] [place] WBC LM.HPF (Urine sed) [#/Area] 0-5 /HPF Normal 0-5 /HPF [facility] Comment on above: Order Comment: Speci men Type: URINE SPECIMENOrdering Facility: [facility] Address: [address] [place] [address] Performed By: #### 2 4356-8 ####[facility]IA [id number] [place] [address] [place] Vit B12 [facility]Pl[facility]2 025 Cobalamin (Vitamin B12) [Mass/Vol] 840 pg/mL Normal 232-1245 [facility] Comment on above: Order Comment: Speci men Type: BLOOD SPECIMENOrdering Facility: [facility] Address: [address] [place] [address] Performed By: #### 2 132-9 ####[facility]IA [id number] [place] [address] [place] CNPLoren 08-11-2024 [facility] ELISHA GODFREY ([id number]) 1955 F Date Time Provider Department 08/11/24 [facility] During your visit today, we recorded the following information about you: Lisa Watt RN 08/11/2024 10:14 AM Signed Pt calling in and states her Ramipril was recalled. She usually uses mail order. When she spoke to them, they told her that she needed to call her provider to get a short term supply sent to local pharmacy until they can get her med mailed back out to her. Short term prescription pended. Also pt has an appt 09/21/24 and would like to get labs drawn prior. Orders pended. Kade Fry MD 08/11/2024 10:33 AM Signed The following approved medication requests have been transmitted electronically. Requested Prescriptions Signed Prescriptions Disp Refills ramipril (ALTACE) 5 mg capsule 14 capsule 0 Sig: Take 1 capsule by mouth once daily. Authorizing Provider: KADE FRY MD Labs placed Allergies As of Date: 08/11/2024 Noted Allergy Reaction PREVACID (LANSOPRAZOLE) 01/01/2006 4 - Hives ADHESIVE 03/18/2016 16 - Unknown BENADRYL (DIPHENHYDRAMINE HCL) 01/01/2006 14 - Other: See Comments Comments: makes her feel weird FOSAMAX (ALENDRONATE) 12/13/2023 14 - Other: See Comments Comments: GERD LATEX 01/14/2010 16 - Unknown Date Reviewed: 09/21/2023 Reviewed by: Remington Pereyra LPN - Fully Assessed Reason for Visit: Medication Problem [65] Orders [681] Primary Visit Diagnosis:Hyperlipidemia, mixed [E78.2] Other Visit Diagnoses:Hypertension, essential [I10] Family history of thyroid disease [Z83.49] Elevated glucose [R73.09] Essential hypertension [I10] Mixed hyperlipidemia [E78.2] GERD without esophagitis [K21.9] 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] Medication management [Z79.899] Elevated blood sugar [R73.9] Order(s):ramipril (ALTACE) 5 mg capsuleTake 1 capsule by mouth once daily.Disp: 14 capsuleRfl: 0 VITAMIN B12 [SQB12] Order #: [id number] FUTURE COMPREHENSIVE METABOLIC PANEL [SQCMP] Order #: [id number] FUTURE HEMOGLOBIN A1C [AVNMS0L] Order #: [id number] FUTURE THYROID STIMULATING HORMONE [SQTSH] Order #: [id number] FUTURE URINALYSIS, WITH MICROSCOPIC [SQUAWMIC] Order #: [id number] FUTURE LIPID PANEL, NONFASTING [SQLIPNF] Order #: [id number] FUTURE MAGNESIUM [SQMG1] Order #: [id number] FUTURE COMPLETE BLOOD COUNT AND DIFFERENTIAL [SQCBCDIF] Order #: [id number] FUTURE Prescriptions as of 08/11/2024 - ramipril (ALTACE) 5 mg capsule Take 1 capsule by mouth once daily. - ramipril (ALTACE) 5 mg capsule Take 1 capsule by mouth once daily. - pantoprazole DR (PROTONIX) 40 mg tablet Take 1 tablet by mouth daily before breakfast. Take on empty stomach, 1/2 hr before meal. - clobetasol (TEMOVATE) 0.05 % ointment Apply to affected area two times a day. - docosahexaenoic acid/epa (FISH OIL ORAL) Take 1,000 mg by mouth once daily. - hydrOXYchloroQUINE (PLAQUENIL) 200 mg tablet Take by mouth twice daily. - folic acid 1 mg tablet Take [...] ALLERGY) 32 mcg/actuation nasal spray Use 1 [place] in each nostril once daily. - fexofenadine hcl(CARMELITA 180 MG TAB) Take one(1) tablet daily. - vitamin b complex(B COMPLEX CAP) Take one(1) tablet daily. - aspirin(ECOTRIN LOW STRENGTH 81 MG TAB) one tablet 3 times a week - multivitamins w-minerals/lut(CENTRUM SILVER TAB) Take one(1) tablet daily. Meds Comments as of 09/27/2018: Using OTC eye drop/gel Problem List As Of Date 08/11/2024 Noted Resolved Calcaneal spur [M77.30] 07/14/2005 Hemorrhage of gastrointestinal tract, unspecifi* 08/28/2019 Internal hemorrhoids without mention of complic* Diverticulosis of colon [K57.30] Acute appendicitis without mention of peritonit*07/16/2007 09/19/2012 Lumbago [M54.50] 02/20/2008 Essential hypertension [I10] 12/14/2009 Allergic rhinitis [J30.9] 03/31/2010 Mixed stress and urge urinary incontinence [N39* (more content not included)... Normal [facility] CBC W/Diff, Automatedon 06-24 Absolute Lymph 1.01 X10 3/uL Normal 0.83-4.51 [facility] Comment on above: Performed By: #### L 100.0100, L500.4050 ####[facility] [address] [place], [address] Absolute Neut 2.5 X10 3/uL Normal 2.0-7.7 [facility] Comment on above: Performed By: #### L 100.0100, L500.4050 ####[facility] [address] [place], [address] Basophils/100 WBC (Bld) 0.8 % Normal 0-1 [facility] Comment on above: Performed By: #### L 100.0100, L500.4050 ####[facility] [address] [place], [address] Eosinophils/100 WBC (Bld) 2.3 % Normal 0-5 [facility] Comment on above: Performed By: #### L 100.0100, L500.4050 ####[facility] [address] [place], [address] Erythrocyte distribution width (RBC) [Ratio] 12.6 % Normal 11.6-14.6 [facility] Comment on above: Performed By: #### L 100.0100, L500.4050 ####[facility] [address] [place], [address] Hematocrit (Bld) [Volume fraction] 41.3 % Normal 37-47 [facility] Comment on above: Performed By: #### L 100.0100, L500.4050 ####[facility] [address] [place], [address] Hemoglobin (Bld) [Mass/Vol] 14.1 g/dL Normal 12.0-15.0 [facility] Comment on above: Performed By: #### L 100.0100, L500.4050 ####[facility] [address] [place], [address] IG% 0.500 Normal 0.0-0.9 [facility] Comment on above: Result Comment: IG% - Immature Granulocytes (promyelocytes, myelocytes and metamyelocytes) > 1% indicates that a LEFT SHIFT is Present. Performed By: #### L 100.0100, L500.4050 ####[facility] [address] [place], [address] Lymphocytes/100 WBC (Bld) 26.2 % Normal 19-41 [facility] Comment on above: Performed By: #### L 100.0100, L500.4050 ####[facility] [address] [place], [address] MCH (RBC) [Entitic mass] 35.7 pg High 27.0-32.0 [facility] Comment on above: Performed By: #### L 100.0100, L500.4050 ####[facility] [address] [place], [address] MCHC (RBC) [Mass/Vol] 34.1 g/dL Normal 32-36 [facility] Comment on above: Performed By: #### L 100.0100, L500.4050 ####[facility] [address] [place], [address] MCV (RBC) [Entitic vol] 104.6 fL High 81-99 [facility] Comment on above: Performed By: #### L 100.0100, L500.4050 ####[facility] [address] [place], [address] Monocytes/100 WBC (Bld) 5.5 % Normal 0-10 [facility] Comment on above: Performed By: #### L 100.0100, L500.4050 ####[facility] [address] [place], [address] Neutrophils/100 WBC (Bld) 64.7 % Normal 47-70 [facility] Comment on above: Performed By: #### L 100.0100, L500.4050 ####[facility] [address] [place], [address] Nucleated RBC (Bld) [#/Vol] 0 10*3/uL Normal 0-5 [facility] Comment on above: Performed By: #### L 100.0100, L500.4050 ####[facility] [address] [place], [address] Platelet mean volume (Bld) [Entitic vol] 10.2 fL Normal 6.2-12.0 [facility] Comment on above: Performed By: #### L 100.0100, L500.4050 ####[facility] [address] [place], [address] Platelets (Bld) [#/Vol] 179 10*3/uL Normal 150-450 [facility] Comment on above: Performed By: #### L 100.0100, L500.4050 ####[facility] [address] [place], [address] RBC (Bld) [#/Vol] 3.95 10*6/uL Low 4.2-5.4 [facility] Comment on above: Performed By: #### L 100.0100, L500.4050 ####[facility] [address] [place], [address] RDW SD 48.3 fl High 35.1-43.9 [facility] Comment on above: Performed By: #### L 100.0100, L500.4050 ####[facility] [address] [place], [address] WBC (Bld) [#/Vol] 3.9 10*3/uL Low 4.4-11.0 [facility] Comment on above: Performed By: #### L 100.0100, L500.4050 ####[facility] [address] [place], [address] Comprehensive Metabolic Prof [facility] 07-14-2024 Albumin [Mass/Vol] 4.0 g/dL Normal 3.2-5.0 [facility] Comment on above: Performed By: #### L 100.0100, L500.4050 ####[facility] [address] [place], [address] Albumin/Globulin [Mass ratio] 1.2 {ratio} Normal 0.9-2.4 [facility] Comment on above: Performed By: #### L 100.0100, L500.4050 ####[facility] [address] [place], [address] ALK P 81 U/L Normal 45-117 [facility] Comment on above: Performed By: #### L 100.0100, L500.4050 ####[facility] [address] [place], [address] ALT [Catalytic activity/Vol] 18 U/L Normal 13-56 [facility] Comment on above: Performed By: #### L 100.0100, L500.4050 ####[facility] [address] [place], [address] AST [Catalytic activity/Vol] 17 U/L Normal 15-37 [facility] Comment on above: Performed By: #### L 100.0100, L500.4050 ####[facility] [address] [place], [address] Bilirubin [Mass/Vol] 0.60 mg/dL Normal 0.20-1.00 [facility] Comment on above: Result Comment: For patients on eltrombopag therapy, use of Dimension [place] TBIL is not recommended. Performed By: #### L 100.0100, L500.4050 ####[facility] [address] [place], [address] BUN/CRE 20.1 RATIO High 10-20 [facility] Comment on above: Performed By: #### L 100.0100, L500.4050 ####[facility] [address] [place], [address] CA,Total 9.2 mg/dL Normal 8.5-10.1 [facility] Comment on above: Performed By: #### L 100.0100, L500.4050 ####[facility] [address] [place], [address] Chloride [Moles/Vol] 104 mmol/L Normal 98-107 [facility] Comment on above: Performed By: #### L 100.0100, L500.4050 ####[facility] [address] [place], [address] CO2 [Moles/Vol] 29.0 mmol/L Normal 21.0-32.0 [facility] Comment on above: Performed By: #### L 100.0100, L500.4050 ####[facility] [address] [place], [address] Creatinine [Mass/Vol] 0.85 mg/dL Normal 0.55-1.02 [facility] Comment on above: Result Comment: The validity of the calculated GFR GFRAA in patients over 70 years has not been determined. Clinical correlation is essential. Performed By: #### L 100.0100, L500.4050 ####[facility] [address] [place], [address] EST GFR - AA 85 mL/min Normal >60 [facility] Comment on above: Result Comment: Afri can Thai GFR Calc Performed By: #### L 100.0100, L500.4050 ####[facility] [address] [place], [address] GAP 6 Normal 5-15 [facility] Comment on above: Performed By: #### L 100.0100, L500.4050 ####[facility] [address] [place], [address] GFR/1.73 sq M.predicted among non-blacks MDRD (S/P/Bld) [Vol rate/Area] 71 mL/min/{1.73_m2} Normal >60 [facility] Comment on above: Result Comment: Non- GFR Calc Performed By: #### L 100.0100, L500.4050 ####[facility] [id number] [place], [address] Globulin (S) [Mass/Vol] 3.3 g/dL Normal 2.2-4.2 [facility] Comment on above: Performed By: #### L 100.0100, L500.4050 ####[facility] [address] [place], [address] Glucose [Mass/Vol] 193 mg/dL High 74-106 [facility] Comment on above: Result Comment: Fast ing Glucose result greater than or equal to 126 mg/dL suggests DIABETES MELLITUS per A.D.A. criteria. Performed By: #### L 100.0100, L500.4050 ####[facility] [address] [place], [address] Potassium [Moles/Vol] 3.6 mmol/L Normal 3.5-5.1 [facility] Comment on above: Performed By: #### L 100.0100, L500.4050 ####[facility] [address] [place], [address] Sodium [Moles/Vol] 140 mmol/L Normal 136-145 [facility] Comment on above: Performed By: #### L 100.0100, L500.4050 ####[facility] [address] [place], [address] T PROT 7.3 g/dL Normal 6.4-8.2 [facility] Comment on above: Performed By: #### L 100.0100, L500.4050 ####[facility] [address] [place], [address] Urea nitrogen [Mass/Vol] 17 mg/dL Normal 7-18 [facility] Comment on above: Performed By: #### L 100.0100, L500.4050 ####[facility] [address] [place], [address] CBC W/Diff, Automatedon 09-2 Absolute Lymph 1.07 X10 3/uL Normal 0.83-4.51 [facility] Comment on above: Performed By: #### L 100.0100 #### [facility] [address] [place], [address] Absolute Neut 2.5 X10 3/uL Normal 2.0-7.7 [facility] Comment on above: Performed By: #### L 100.0100 #### [facility] [address] [place], [address] Basophils/100 WBC (Bld) 0.5 % Normal 0-1 [facility] Comment on above: Performed By: #### L 100.0100 #### [facility] [address] [place], [address] Eosinophils/100 WBC (Bld) 2.6 % Normal 0-5 [facility] Comment on above: Performed By: #### L 100.0100 #### [facility] [address] [place], [address] Erythrocyte distribution width (RBC) [Ratio] 13.1 % Normal 11.6-14.6 [facility] Comment on above: Performed By: #### L 100.0100 #### [facility] [address] [place], [address] Hematocrit (Bld) [Volume fraction] 38.8 % Normal 37-47 [facility] Comment on above: Performed By: #### L 100.0100 #### [facility] [address] [place], [address] Hemoglobin (Bld) [Mass/Vol] 12.6 g/dL Normal 12.0-15.0 [facility] Comment on above: Performed By: #### L 100.0100 #### [facility] [address] [place], [address] IG% 0.300 Normal 0.0-0.9 [facility] Comment on above: Result Comment: IG% - Immature Granulocytes (promyelocytes, myelocytes and metamyelocytes) > 1% indicates that a LEFT SHIFT is Present. Performed By: #### L 100.0100 #### [facility] [address] [place], [address] Lymphocytes/100 WBC (Bld) 27.4 % Normal 19-41 [facility] Comment on above: Performed By: #### L 100.0100 #### [facility] [address] [place], [address] MCH (RBC) [Entitic mass] 34.7 pg High 27.0-32.0 [facility] Comment on above: Performed By: #### L 100.0100 #### [facility] [address] [place], [address] MCHC (RBC) [Mass/Vol] 32.5 g/dL Normal 32-36 [facility] Comment on above: Performed By: #### L 100.0100 #### [facility] [address] [place], [address] MCV (RBC) [Entitic vol] 106.9 fL High 81-99 [facility] Comment on above: Performed By: #### L 100.0100 #### [facility] [address] [place], [address] Monocytes/100 WBC (Bld) 6.4 % Normal 0-10 [facility] Comment on above: Performed By: #### L 100.0100 #### [facility] [address] [place], [address] Neutrophils/100 WBC (Bld) 62.8 % Normal 47-70 [facility] Comment on above: Performed By: #### L 100.0100 #### [facility] [address] [place], [address] Nucleated RBC (Bld) [#/Vol] 0 10*3/uL Normal 0-5 [facility] Comment on above: Performed By: #### L 100.0100 #### [facility] [address] [place], [address] Platelet mean volume (Bld) [Entitic vol] 10.3 fL Normal 6.2-12.0 [facility] Comment on above: Performed By: #### L 100.0100 #### [facility] [address] [place], [address] Platelets (Bld) [#/Vol] 187 10*3/uL Normal 150-450 [facility] Comment on above: Performed By: #### L 100.0100 #### [facility] [address] [place], [address] RBC (Bld) [#/Vol] 3.63 10*6/uL Low 4.2-5.4 [facility] Comment on above: Performed By: #### L 100.0100 #### [facility] [address] [place], [address] RDW SD 51.5 fl High 35.1-43.9 [facility] Comment on above: Performed By: #### L 100.0100 #### [facility] [address] [place], [address] WBC (Bld) [#/Vol] 3.9 10*3/uL Low 4.4-11.0 [facility] Comment on above: Performed By: #### L 100.0100 #### [facility] [address] [place], [address] MG Breast Screeningon 2023 [facility] Absolute lymphocyte countOrd ered By: Dina Ferrer on 10-22-2023 Lymphocytes Auto (Unsp spec) [#/Vol] 0.62 10*3/uL 0.83-4.51 [facility] Automated lymphocyte count a s percentage of total leukocytesOrdered By: Dina Ferrer on 10-22-2023 Lymphocytes/100 WBC Auto (Unsp spec) 18.0 % 19-41 [facility] Basophil percentageOrdered B y: Dina Ferrer on 10-22-2023 Basophils/100 WBC (Bld) 0.9 % 0-1 [facility] Bilirubin [Mass/Vol] 0.70 mg/dL 0.20-1.00 [facility] Comment on above: For patients on eltr ombopag therapy, use of Dimension [place] TBIL is not recommended. Chloride [Moles/Vol] 106 mmol/L 98-107 [facility] Eosinophils/100 WBC (Bld) 3.2 % 0-5 [facility] Glucose [Mass/Vol] 128 mg/dL 74-106 [facility] Comment on above: Fasting Glucose resu lt greater than or equal to 126 mg/dL suggests DIABETES MELLITUS per A.D.A. criteria. Hemoglobin (Bld) [Mass/Vol] 13.2 g/dL 12.0-15.0 [facility] Monocytes/100 WBC (Bld) 6.7 % 0-10 [facility] Neutrophils (Bld) [#/Vol] 2.5 10*3/uL 2.0-7.7 [facility] Neutrophils/100 WBC (Bld) 70.9 % 47-70 [facility] Potassium [Moles/Vol] 4.0 mmol/L 3.5-5.1 [facility] Protein [Mass/Vol] 7.0 g/dL 6.4-8.2 [facility] Sodium [Moles/Vol] 140 mmol/L 136-145 [facility] WBC (Bld) [#/Vol] 3.5 10*3/uL 4.4-11.0 [facility] Determination of erythrocyte mean corpuscular volume (MCV)Ordered By: Dina Ferrer on 10-22-2023 MCV (RBC) [Entitic vol] 104.9 fL 81-99 [facility] Erythrocyte distribution wid th ratioOrdered By: Dina Ferrer on 10-22-2023 Erythrocyte distribution width (RBC) [Ratio] 12.7 % 11.6-14.6 [facility] Erythrocyte distribution wid th standard deviationOrdered By: Dina Ferrer on 10-22-2023 Erythrocyte distribution width (RBC) [Entitic vol] 48.8 fL 35.1-43.9 [facility] Hematocrit Auto (Bld) [Volum e fraction]Ordered By: Dina Ferrer on 10-22-2023 Hematocrit (Bld) [Volume fraction] 40.7 % 37-47 [facility] Immature granulocytes/100 WB C Auto (Bld)Ordered By: Dina Ferrer on 10-22-2023 Immature granulocytes/100 WBC (Bld) 0.300 % 0.0-0.9 [facility] Comment on above: IG% - Immature Granu locytes (promyelocytes, myelocytes and metamyelocytes) > 1% indicates that a LEFT SHIFT is Present. Laboratory - Chemistry and C hemistry - challengeOrdered By: Dina Ferrer on 10-22-2023 Albumin/Globulin [Mass ratio] 1.3 {ratio} 0.9-2.4 [facility] ALP [Catalytic activity/Vol] 86 U/L 45-117 [facility] ALT [Catalytic activity/Vol] 15 U/L 13-56 [facility] CO2 [Moles/Vol] 32.0 mmol/L 21.0-32.0 [facility] Globulin (S) [Mass/Vol] 3.1 g/dL 2.2-4.2 [facility] Urea nitrogen/Creatinine [Mass ratio] 18.2 mg/mg 10-20 [facility] Laboratory - Hematology and Cell countsOrdered By: Dina Ferrer on 10-22-2023 MCH (RBC) [Entitic mass] 34.0 pg 27.0-32.0 [facility] MCHC (RBC) [Mass/Vol] 32.4 g/dL 32-36 [facility] Nucleated RBC/100 WBC (Bld) [Ratio] 0 % 0-5 [facility] Platelet mean volume (Bld) [Entitic vol] 10.2 fL 6.2-12.0 [facility] Platelets (Bld) [#/Vol] 167 10*3/uL 150-450 [facility] No Panel InformationOrdered By: Dina Ferrer on 10-22-2023 Estimated GFR (MDRD) Amer 82 mL/min >60 [facility] Comment on above: GFR Calc Estimated GFR (MDRD) Non-Af Amer 68 mL/min >60 [facility] Comment on above: Non- GFR Calc RBC Auto (Bld) [#/Vol]Ordere d By: Dina Ferrer on 10-22-2023 RBC (Bld) [#/Vol] 3.88 10*6/uL 4.2-5.4 [facility] Serum or plasma calcium shira urement (mass/volume)Ordered By: Dina Ferrer on 10-22-2023 Calcium [Mass/Vol] 9.1 mg/dL 8.5-10.1 [facility] Serum or plasma creatinine m easurement (mass/volume)Ordered By: Dina Ferrer on 10-22-2023 Creatinine [Mass/Vol] 0.88 mg/dL 0.55-1.02 [facility] Comment on above: The validity of the calculated GFR & GFRAA in patients over 70 years has not been determined. Clinical correlation is essential. Serum or plasma urea nitroge n measurement (mass/volume)Ordered By: Dina Ferrer on 10-22-2023 Urea nitrogen [Mass/Vol] 16 mg/dL 7-18 [facility] Thin prep Papanicolaou smear with manual screeningOrdered By: Dina Ferrer on 10-22-2023 Thin prep Papanicolaou smear with manual screening 3.9 g/dL 3.2-5.0 [facility] Thin prep Papanicolaou smear with manual screening 15 U/L 15-37 [facility] Thin prep Papanicolaou smear with manual screening 2 5-15 [facility] XR Hand - left PA and Latera l and Obliqueon 08-24-2023 IMPRESSION: No acute osseous abnormality Professional Wrestler: PATO Transcribe Date/Time: Aug 24 2023 10:23A Dictated by : ZULMA ROE MD This examination was interpreted and the report reviewed and electronically signed by: ZULMA ROE MD on Aug 24 2023 10:24AM [facility] DIVISION OF RADIOLOGY * * *Final Report* * * DATE OF EXAM: Aug 24 2023 10:14AM WOX [id number] - XR HAND 3V PA/LAT/OBL LT / PROCEDURE REASON: multiple diagnoses * * * * Physician Interpretation * * * * EXAMINATION: XR HAND 3V PA/LAT/OBL LT CLINICAL HISTORY: Cat bite Technique: XR HAND 3V PA/LAT/OBL LT -- LEFT with 3 views on 3 images Comparison: None RESULT: No acute fracture or dislocation. Small marginal osteophytes at multiple interphalangeal joints. No destructive osseous lesion. No radiodense foreign body. DIVISION OF RADIOLOGY Provider, Cc Saurav melo [place] - 08/24/2023 * * *Final Report* * * DATE OF EXAM: Aug 24 2023 10:14AM WOX [id number] - XR HAND 3V PA/LAT/OBL LT / PROCEDURE REASON: multiple diagnoses * * * * Physician Interpretation * * * * EXAMINATION: XR HAND 3V PA/LAT/OBL LT CLINICAL HISTORY: Cat bite Technique: XR HAND 3V PA/LAT/OBL LT -- LEFT with 3 views on 3 images Comparison: None RESULT: No acute fracture or dislocation. Small marginal osteophytes at multiple interphalangeal joints. No destructive osseous lesion. No radiodense foreign body. IMPRESSION IMPRESSION: No acute osseous abnormality Professional Wrestler: PATO Transcribe Date/Time: Aug 24 2023 10:23A Dictated by : ZULMA ROE MD This examination was interpreted and the report reviewed and electronically signed by: ZULMA ROE MD on Aug 24 2023 10:24AM EST [facility] Radiology Study observation (narrative) [facility] XR Hand - left PA and Latera l and ObliqueOrdered By: Ccf Provider on 08-24-2023 [facility] Absolute lymphocyte countOrd ered By: Dina Ferrer on 07-23-2023 Lymphocytes Auto (Unsp spec) [#/Vol] 0.92 10*3/uL 0.83-4.51 [facility] Basophil percentageOrdered B y: Dina Ferrer on 07-23-2023 Basophils/100 WBC (Bld) 0.6 % 0-1 [facility] Bilirubin [Mass/Vol] 0.80 mg/dL 0.20-1.00 [facility] Comment on above: For patients on eltr ombopag therapy, use of Dimension [place] TBIL is not recommended. Chloride [Moles/Vol] 106 mmol/L 98-107 [facility] Eosinophils/100 WBC (Bld) 3.4 % 0-5 [facility] Glucose [Mass/Vol] 103 mg/dL 74-106 [facility] Comment on above: Fasting Glucose resu lt from 100 to 125 mg/dL suggests IMPAIRED HOMEOSTASIS per A.D.A. criteria. Neutrophils (Bld) [#/Vol] 3.4 10*3/uL 2.0-7.7 [facility] Neutrophils/100 WBC (Bld) 70.7 % 47-70 [facility] Potassium [Moles/Vol] 3.7 mmol/L 3.5-5.1 [facility] Protein [Mass/Vol] 7.5 g/dL 6.4-8.2 [facility] Sodium [Moles/Vol] 141 mmol/L 136-145 [facility] WBC (Bld) [#/Vol] 4.8 10*3/uL 4.4-11.0 [facility] Blood erythrocytes count (nu mber/volume)Ordered By: Dina Ferrer on 07-23-2023 RBC (Bld) [#/Vol] 4.01 10*6/uL 4.2-5.4 [facility] Blood hemoglobin measurement (mass/volume)Ordered By: Dina Ferrer on 07-23-2023 Hemoglobin (Bld) [Mass/Vol] 13.9 g/dL 12.0-15.0 [facility] Blood lymphocytes/100 leukoc ytesOrdered By: Dina Ferrer on 07-23-2023 Lymphocytes/100 WBC (Bld) 19.4 % 19-41 [facility] Blood monocytes/100 leukocyt esOrdered By: Dina Ferrer on 07-23-2023 Monocytes/100 WBC (Bld) 5.7 % 0-10 [facility] Blood platelet mean volumeOr dered By: Dina Ferrer on 07-23-2023 Platelet mean volume (Bld) [Entitic vol] 10.2 fL 6.2-12.0 [facility] Determination of erythrocyte mean corpuscular volume (MCV)Ordered By: Dina Ferrer on 07-23-2023 MCV (RBC) [Entitic vol] 107.2 fL 81-99 [facility] Hematocrit Auto (Bld) [Volum e fraction]Ordered By: Dina Ferrer on 07-23-2023 Hematocrit (Bld) [Volume fraction] 43.0 % 37-47 [facility] Laboratory - Chemistry and C hemistry - challengeOrdered By: Dina Ferrer on 07-23-2023 ALP [Catalytic activity/Vol] 83 U/L 45-117 [facility] ALT [Catalytic activity/Vol] 17 U/L 13-56 [facility] CO2 [Moles/Vol] 31.0 mmol/L 21.0-32.0 [facility] Globulin (S) [Mass/Vol] 3.5 g/dL 2.2-4.2 [facility] Urea nitrogen/Creatinine [Mass ratio] 21.1 mg/mg 10-20 [facility] Laboratory - Hematology and Cell countsOrdered By: Dina Ferrer on 07-23-2023 Erythrocyte distribution width (RBC) [Entitic vol] 50.3 fL 35.1-43.9 [facility] Erythrocyte distribution width (RBC) [Ratio] 12.7 % 11.6-14.6 [facility] Immature granulocytes/100 WBC (Bld) 0.200 % 0.0-0.9 [facility] Comment on above: IG% - Immature Granu locytes (promyelocytes, myelocytes and metamyelocytes) > 1% indicates that a LEFT SHIFT is Present. MCH (RBC) [Entitic mass] 34.7 pg 27.0-32.0 [facility] Nucleated RBC/100 WBC (Bld) [Ratio] 0 % 0-5 [facility] MCHC Auto (RBC) [Mass/Vol]Or dered By: Dina Ferrer on 07-23-2023 MCHC (RBC) [Mass/Vol] 32.3 g/dL 32-36 [facility] No Panel InformationOrdered By: Dina Ferrer on 07-23-2023 Estimated GFR (MDRD) Amer 85 mL/min >60 [facility] Comment on above: GFR Calc Estimated GFR (MDRD) Non-Af Amer 70 mL/min >60 [facility] Comment on above: Non- GFR Calc Platelets bldOrdered By: Issac Ferrer on 07-23-2023 Platelets (Bld) [#/Vol] 196 10*3/uL 150-450 [facility] Serum or plasma albumin shira urement (mass/volume)Ordered By: Dina Ferrer on 07-23-2023 Albumin [Mass/Vol] 4.0 g/dL 3.2-5.0 [facility] Serum or plasma albumin/glob ulin mass ratioOrdered By: Dina Ferrer on 07-23-2023 Albumin/Globulin [Mass ratio] 1.1 {ratio} 0.9-2.4 [facility] Serum or plasma calcium shira urement (mass/volume)Ordered By: Dina Ferrer on 07-23-2023 Calcium [Mass/Vol] 9.1 mg/dL 8.5-10.1 [facility] Serum or plasma creatinine m easurement (mass/volume)Ordered By: Dina Ferrer on 07-23-2023 Creatinine [Mass/Vol] 0.85 mg/dL 0.55-1.02 [facility] Comment on above: The validity of the calculated GFR & GFRAA in patients over 70 years has not been determined. Clinical correlation is essential. Serum or plasma urea nitroge n measurement (mass/volume)Ordered By: Dina Ferrer on 07-23-2023 Urea nitrogen [Mass/Vol] 18 mg/dL 7-18 [facility] Thin prep Papanicolaou smear with manual screeningOrdered By: Dinadahiana Ferrer on 07-23-2023 Thin prep Papanicolaou smear with manual screening 18 U/L 15-37 [facility] Thin prep Papanicolaou smear with manual screening 4 5-15 [facility] Absolute lymphocyte countOrd ered By: Dina Ferrer on 05-07-2023 Lymphocytes Auto (Unsp spec) [#/Vol] 1.10 10*3/uL 0.83-4.51 [facility] Basophil percentageOrdered B y: Dina Ferrer on 05-07-2023 Basophils/100 WBC (Bld) 0.9 % 0-1 [facility] Bilirubin [Mass/Vol] 0.60 mg/dL 0.20-1.00 [facility] Comment on above: For patients on eltr ombopag therapy, use of Dimension [place] TBIL is not recommended. Chloride [Moles/Vol] 106 mmol/L 98-107 [facility] Eosinophils/100 WBC (Bld) 3.5 % 0-5 [facility] Glucose [Mass/Vol] 104 mg/dL 74-106 [facility] Comment on above: Fasting Glucose resu lt from 100 to 125 mg/dL suggests IMPAIRED HOMEOSTASIS per A.D.A. criteria. Neutrophils (Bld) [#/Vol] 1.9 10*3/uL 2.0-7.7 [facility] Neutrophils/100 WBC (Bld) 54.4 % 47-70 [facility] Potassium [Moles/Vol] 4.1 mmol/L 3.5-5.1 [facility] Protein [Mass/Vol] 7.2 g/dL 6.4-8.2 [facility] Sodium [Moles/Vol] 139 mmol/L 136-145 [facility] WBC (Bld) [#/Vol] 3.5 10*3/uL 4.4-11.0 [facility] Blood erythrocytes count (nu mber/volume)Ordered By: Dina Ferrer on 05-07-2023 RBC (Bld) [#/Vol] 3.88 10*6/uL 4.2-5.4 [facility] Blood hemoglobin measurement (mass/volume)Ordered By: Dina Ferrer on 05-07-2023 Hemoglobin (Bld) [Mass/Vol] 13.5 g/dL 12.0-15.0 [facility] Blood lymphocytes/100 leukoc ytesOrdered By: Dina Ferrer on 05-07-2023 Lymphocytes/100 WBC (Bld) 31.7 % 19-41 [facility] Blood monocytes/100 leukocyt esOrdered By: Dina Ferrer on 05-07-2023 Monocytes/100 WBC (Bld) 9.2 % 0-10 [facility] Blood platelet mean volumeOr dered By: Dina Ferrer on 05-07-2023 Platelet mean volume (Bld) [Entitic vol] 10.1 fL 6.2-12.0 [facility] Determination of erythrocyte mean corpuscular volume (MCV)Ordered By: Dina Ferrer on 05-07-2023 MCV (RBC) [Entitic vol] 105.7 fL 81-99 [facility] Hematocrit Auto (Bld) [Volum e fraction]Ordered By: Dina Ferrer on 05-07-2023 Hematocrit (Bld) [Volume fraction] 41.0 % 37-47 [facility] Laboratory - Chemistry and C hemistry - challengeOrdered By: Dina Ferrer on 05-07-2023 ALP [Catalytic activity/Vol] 84 U/L 45-117 [facility] ALT [Catalytic activity/Vol] 18 U/L 13-56 [facility] CO2 [Moles/Vol] 28.0 mmol/L 21.0-32.0 [facility] Globulin (S) [Mass/Vol] 3.2 g/dL 2.2-4.2 [facility] Urea nitrogen/Creatinine [Mass ratio] 19.6 mg/mg 10-20 [facility] Laboratory - Hematology and Cell countsOrdered By: Dina Ferrer on 05-07-2023 Erythrocyte distribution width (RBC) [Entitic vol] 49.9 fL 35.1-43.9 [facility] Erythrocyte distribution width (RBC) [Ratio] 13.0 % 11.6-14.6 [facility] Immature granulocytes/100 WBC (Bld) 0.300 % 0.0-0.9 [facility] Comment on above: IG% - Immature Granu locytes (promyelocytes, myelocytes and metamyelocytes) > 1% indicates that a LEFT SHIFT is Present. MCH (RBC) [Entitic mass] 34.8 pg 27.0-32.0 [facility] Nucleated RBC/100 WBC (Bld) [Ratio] 0 % 0-5 [facility] MCHC Auto (RBC) [Mass/Vol]Or dered By: Dina Ferrer on 05-07-2023 MCHC (RBC) [Mass/Vol] 32.9 g/dL 32-36 [facility] No Panel InformationOrdered By: Dina Ferrer on 05-07-2023 Estimated GFR (MDRD) Amer 83 mL/min >60 [facility] Comment on above: GFR Calc Estimated GFR (MDRD) Non-Af Amer 69 mL/min >60 [facility] Comment on above: Non- GFR Calc Platelets bldOrdered By: Issac Ferrer on 05-07-2023 Platelets (Bld) [#/Vol] 190 10*3/uL 150-450 [facility] Serum or plasma albumin shira urement (mass/volume)Ordered By: Dina Ferrer on 05-07-2023 Albumin [Mass/Vol] 4.0 g/dL 3.2-5.0 [facility] Serum or plasma albumin/glob ulin mass ratioOrdered By: Dina Ferrer on 05-07-2023 Albumin/Globulin [Mass ratio] 1.2 {ratio} 0.9-2.4 [facility] Serum or plasma calcium shira urement (mass/volume)Ordered By: Dina Ferrer on 05-07-2023 Calcium [Mass/Vol] 9.1 mg/dL 8.5-10.1 [facility] Serum or plasma creatinine m easurement (mass/volume)Ordered By: Dina Ferrer on 05-07-2023 Creatinine [Mass/Vol] 0.87 mg/dL 0.55-1.02 [facility] Comment on above: The validity of the calculated GFR & GFRAA in patients over 70 years has not been determined. Clinical correlation is essential. Serum or plasma urea nitroge n measurement (mass/volume)Ordered By: Dina Ferrer on 05-07-2023 Urea nitrogen [Mass/Vol] 17 mg/dL 7-18 [facility] Thin prep Papanicolaou smear with manual screeningOrdered By: Dina Ferrer on 05-07-2023 Thin prep Papanicolaou smear with manual screening 20 U/L 15-37 [facility] Thin prep Papanicolaou smear with manual screening 5 5-15 [facility] Absolute lymphocyte countOrd ered By: Dr. Ferrer on 02-05-2023 Lymphocytes Auto (Unsp spec) [#/Vol] 1.10 10*3/uL 0.83-4.51 [facility] Basophil percentageOrdered B y: Dr. Ferrer on 02-05-2023 Basophils/100 WBC (Bld) 0.9 % 0-1 [facility] Bilirubin [Mass/Vol] 0.60 mg/dL 0.20-1.00 [facility] Comment on above: For patients on eltr ombopag therapy, use of Dimension [place] TBIL is not recommended. Chloride [Moles/Vol] 105 mmol/L 98-107 [facility] Eosinophils/100 WBC (Bld) 2.7 % 0-5 [facility] Glucose [Mass/Vol] 134 mg/dL 74-106 [facility] Comment on above: Fasting Glucose resu lt greater than or equal to 126 mg/dL suggests DIABETES MELLITUS per A.D.A. criteria. Neutrophils (Bld) [#/Vol] 1.9 10*3/uL 2.0-7.7 [facility] Neutrophils/100 WBC (Bld) 57.2 % 47-70 [facility] Potassium [Moles/Vol] 3.8 mmol/L 3.5-5.1 [facility] Protein [Mass/Vol] 7.6 g/dL 6.4-8.2 [facility] Sodium [Moles/Vol] 140 mmol/L 136-145 [facility] WBC (Bld) [#/Vol] 3.4 10*3/uL 4.4-11.0 [facility] Blood erythrocytes count (nu mber/volume)Ordered By: Dr. Ferrer on 02-05-2023 RBC (Bld) [#/Vol] 4.04 10*6/uL 4.2-5.4 [facility] Blood hemoglobin measurement (mass/volume)Ordered By: Dr. Ferrer on 02-05-2023 Hemoglobin (Bld) [Mass/Vol] 14.2 g/dL 12.0-15.0 [facility] Blood lymphocytes/100 leukoc ytesOrdered By: Dr. Ferrer on 02-05-2023 Lymphocytes/100 WBC (Bld) 32.4 % 19-41 [facility] Blood monocytes/100 leukocyt esOrdered By: Dr. Ferrer on 02-05-2023 Monocytes/100 WBC (Bld) 6.5 % 0-10 [facility] Blood platelet mean volumeOr dered By: Dr. Ferrer on 02-05-2023 Platelet mean volume (Bld) [Entitic vol] 10.3 fL 6.2-12.0 [facility] Determination of erythrocyte mean corpuscular volume (MCV)Ordered By: Dr. Ferrer on 02-05-2023 MCV (RBC) [Entitic vol] 105.9 fL 81-99 [facility] Hematocrit Auto (Bld) [Volum e fraction]Ordered By: Dr. Ferrer on 02-05-2023 Hematocrit (Bld) [Volume fraction] 42.8 % 37-47 [facility] Laboratory - Chemistry and C hemistry - challengeOrdered By: Dr. Ferrer on 02-05-2023 ALP [Catalytic activity/Vol] 88 U/L 45-117 [facility] ALT [Catalytic activity/Vol] 17 U/L 13-56 [facility] CO2 [Moles/Vol] 29.0 mmol/L 21.0-32.0 [facility] Globulin (S) [Mass/Vol] 3.6 g/dL 2.2-4.2 [facility] Urea nitrogen/Creatinine [Mass ratio] 17.6 mg/mg 10-20 [facility] Laboratory - Hematology and Cell countsOrdered By: Dr. Ferrer on 02-05-2023 Erythrocyte distribution width (RBC) [Entitic vol] 49.8 fL 35.1-43.9 [facility] Erythrocyte distribution width (RBC) [Ratio] 12.7 % 11.6-14.6 [facility] Immature granulocytes/100 WBC (Bld) 0.300 % 0.0-0.9 [facility] Comment on above: IG% - Immature Granu locytes (promyelocytes, myelocytes and metamyelocytes) > 1% indicates that a LEFT SHIFT is Present. MCH (RBC) [Entitic mass] 35.1 pg 27.0-32.0 [facility] Nucleated RBC/100 WBC (Bld) [Ratio] 0 % 0-5 [facility] MCHC Auto (RBC) [Mass/Vol]Or dered By: Dr. Ferrer on 02-05-2023 MCHC (RBC) [Mass/Vol] 33.2 g/dL 32-36 [facility] No Panel InformationOrdered By: Dr. Ferrer on 02-05-2023 Estimated GFR (MDRD) Amer 92 mL/min >60 [facility] Comment on above: GFR Calc Estimated GFR (MDRD) Non-Af Amer 76 mL/min >60 [facility] Comment on above: Non- GFR Calc Platelets bldOrdered By: Dr. Ferrer on 02-05-2023 Platelets (Bld) [#/Vol] 204 10*3/uL 150-450 [facility] Serum or plasma albumin shira urement (mass/volume)Ordered By: Dr. Ferrer on 02-05-2023 Albumin [Mass/Vol] 4.0 g/dL 3.2-5.0 [facility] Serum or plasma albumin/glob ulin mass ratioOrdered By: Dr. Ferrer on 02-05-2023 Albumin/Globulin [Mass ratio] 1.1 {ratio} 0.9-2.4 [facility] Serum or plasma calcium shira urement (mass/volume)Ordered By: Dr. Fererr on 02-05-2023 Calcium [Mass/Vol] 9.4 mg/dL 8.5-10.1 [facility] Serum or plasma creatinine m easurement (mass/volume)Ordered By: Dr. Ferrer on 02-05-2023 Creatinine [Mass/Vol] 0.80 mg/dL 0.55-1.02 [facility] Comment on above: The validity of the calculated GFR & GFRAA in patients over 70 years has not been determined. Clinical correlation is essential. Serum or plasma urea nitroge n measurement (mass/volume)Ordered By: Dr. Ferrer on 02-05-2023 Urea nitrogen [Mass/Vol] 14 mg/dL 7-18 [facility] Thin prep Papanicolaou smear with manual screeningOrdered By: Dr. Ferrer on 02-05-2023 Thin prep Papanicolaou smear with manual screening 20 U/L 15-37 [facility] Thin prep Papanicolaou smear with manual screening 6 5-15 [facility] Absolute lymphocyte countOrd ered By: Dr. Ferrer on 11-20-2022 Lymphocytes Auto (Unsp spec) [#/Vol] 1.05 10*3/uL 0.83-4.51 [facility] Basophil percentageOrdered B y: Dr. Ferrer on 11-20-2022 Basophils/100 WBC (Bld) 0.8 % 0-1 [facility] Bilirubin [Mass/Vol] 0.60 mg/dL 0.20-1.00 [facility] Comment on above: For patients on eltr ombopag therapy, use of Dimension [place] TBIL is not recommended. Chloride [Moles/Vol] 105 mmol/L 98-107 [facility] Eosinophils/100 WBC (Bld) 3.1 % 0-5 [facility] Glucose [Mass/Vol] 93 mg/dL 74-106 [facility] Neutrophils (Bld) [#/Vol] 2.1 10*3/uL 2.0-7.7 [facility] Neutrophils/100 WBC (Bld) 57.7 % 47-70 [facility] Potassium [Moles/Vol] 3.8 mmol/L 3.5-5.1 [facility] Protein [Mass/Vol] 7.3 g/dL 6.4-8.2 [facility] Sodium [Moles/Vol] 140 mmol/L 136-145 [facility] WBC (Bld) [#/Vol] 3.6 10*3/uL 4.4-11.0 [facility] Blood erythrocytes count (nu mber/volume)Ordered By: Dr. Ferrer on 11-20-2022 RBC (Bld) [#/Vol] 3.94 10*6/uL 4.2-5.4 [facility] Blood hemoglobin measurement (mass/volume)Ordered By: Dr. Ferrer on 11-20-2022 Hemoglobin (Bld) [Mass/Vol] 13.5 g/dL 12.0-15.0 [facility] Blood lymphocytes/100 leukoc ytesOrdered By: Dr. Ferrer on 11-20-2022 Lymphocytes/100 WBC (Bld) 29.2 % 19-41 [facility] Blood monocytes/100 leukocyt esOrdered By: Dr. Ferrer on 11-20-2022 Monocytes/100 WBC (Bld) 8.9 % 0-10 [facility] Blood platelet mean volumeOr dered By: Dr. Ferrer on 11-20-2022 Platelet mean volume (Bld) [Entitic vol] 10.4 fL 6.2-12.0 [facility] Determination of erythrocyte mean corpuscular volume (MCV)Ordered By: Dr. Ferrer on 11-20-2022 MCV (RBC) [Entitic vol] 105.1 fL 81-99 [facility] Hematocrit Auto (Bld) [Volum e fraction]Ordered By: Dr. Ferrer on 11-20-2022 Hematocrit (Bld) [Volume fraction] 41.4 % 37-47 [facility] Laboratory - Chemistry and C hemistry - challengeOrdered By: Dr. Ferrer on 11-20-2022 ALP [Catalytic activity/Vol] 86 U/L 45-117 [facility] ALT [Catalytic activity/Vol] 21 U/L 13-56 [facility] CO2 [Moles/Vol] 32.0 mmol/L 21.0-32.0 [facility] Globulin (S) [Mass/Vol] 3.2 g/dL 2.2-4.2 [facility] Urea nitrogen/Creatinine [Mass ratio] 20.3 mg/mg 10-20 [facility] Laboratory - Hematology and Cell countsOrdered By: Dr. Ferrer on 11-20-2022 Erythrocyte distribution width (RBC) [Entitic vol] 48.8 fL 35.1-43.9 [facility] Erythrocyte distribution width (RBC) [Ratio] 12.7 % 11.6-14.6 [facility] Immature granulocytes/100 WBC (Bld) 0.300 % 0.0-0.9 [facility] Comment on above: IG% - Immature Granu locytes (promyelocytes, myelocytes and metamyelocytes) > 1% indicates that a LEFT SHIFT is Present. MCH (RBC) [Entitic mass] 34.3 pg 27.0-32.0 [facility] Nucleated RBC/100 WBC (Bld) [Ratio] 0 % 0-5 [facility] MCHC Auto (RBC) [Mass/Vol]Or dered By: Dr. Ferrer on 11-20-2022 MCHC (RBC) [Mass/Vol] 32.6 g/dL 32-36 [facility] No Panel InformationOrdered By: Dr. Ferrer on 11-20-2022 Estimated GFR (MDRD) Amer 87 mL/min >60 [facility] Comment on above: GFR Calc Estimated GFR (MDRD) Non-Af Amer 72 mL/min >60 [facility] Comment on above: Non- GFR Calc Platelets bldOrdered By: Dr. Ferrer on 11-20-2022 Platelets (Bld) [#/Vol] 189 10*3/uL 150-450 [facility] Serum or plasma albumin shira urement (mass/volume)Ordered By: Dr. Ferrer on 11-20-2022 Albumin [Mass/Vol] 4.1 g/dL 3.2-5.0 [facility] Serum or plasma albumin/glob ulin mass ratioOrdered By: Dr. eFrrer on 11-20-2022 Albumin/Globulin [Mass ratio] 1.3 {ratio} 0.9-2.4 [facility] Serum or plasma calcium shira urement (mass/volume)Ordered By: Dr. Ferrer on 11-20-2022 Calcium [Mass/Vol] 9.3 mg/dL 8.5-10.1 [facility] Serum or plasma creatinine m easurement (mass/volume)Ordered By: Dr. Ferrer on 11-20-2022 Creatinine [Mass/Vol] 0.84 mg/dL 0.55-1.02 [facility] Comment on above: The validity of the calculated GFR & GFRAA in patients over 70 years has not been determined. Clinical correlation is essential. Serum or plasma urea nitroge n measurement (mass/volume)Ordered By: Dr. Ferrer on 11-20-2022 Urea nitrogen [Mass/Vol] 17 mg/dL 7-18 [facility] Thin prep Papanicolaou smear with manual screeningOrdered By: Dr. Ferrer on 11-20-2022 Thin prep Papanicolaou smear with manual screening 22 U/L 15-37 [facility] Thin prep Papanicolaou smear with manual screening 3 5-15 [facility] LEIGH SCREENINGon 11-06-2022 [facility] HEMOGLOBIN A1C (POC)on 09-21 HbA1c (Bld) [Mass fraction] 5.5 % 4.2 - 5.6 % [facility] Absolute lymphocyte countOrd ered By: Dr. Ferrer on 08-26-2022 Lymphocytes Auto (Unsp spec) [#/Vol] 1.09 10*3/uL 0.83-4.51 [facility] Basophil percentageOrdered B y: Dr. Ferrer on 08-26-2022 Basophils/100 WBC (Bld) 0.8 % 0-1 [facility] Bilirubin [Mass/Vol] 0.60 mg/dL 0.20-1.00 [facility] Comment on above: For patients on eltr ombopag therapy, use of Dimension [place] TBIL is not recommended. Chloride [Moles/Vol] 104 mmol/L 98-107 [facility] Eosinophils/100 WBC (Bld) 3.6 % 0-5 [facility] Glucose [Mass/Vol] 96 mg/dL 74-106 [facility] Neutrophils (Bld) [#/Vol] 2.1 10*3/uL 2.0-7.7 [facility] Neutrophils/100 WBC (Bld) 58.9 % 47-70 [facility] Potassium [Moles/Vol] 4.1 mmol/L 3.5-5.1 [facility] Protein [Mass/Vol] 7.1 g/dL 6.4-8.2 [facility] Sodium [Moles/Vol] 140 mmol/L 136-145 [facility] WBC (Bld) [#/Vol] 3.6 10*3/uL 4.4-11.0 [facility] Blood erythrocytes count (nu mber/volume)Ordered By: Dr. Ferrer on 08-26-2022 RBC (Bld) [#/Vol] 4.00 10*6/uL 4.2-5.4 [facility] Blood hemoglobin measurement (mass/volume)Ordered By: Dr. Ferrer on 08-26-2022 Hemoglobin (Bld) [Mass/Vol] 13.7 g/dL 12.0-15.0 [facility] Blood lymphocytes/100 leukoc ytesOrdered By: Dr. Ferrer on 08-26-2022 Lymphocytes/100 WBC (Bld) 30.3 % 19-41 [facility] Blood monocytes/100 leukocyt esOrdered By: Dr. Ferrer on 08-26-2022 Monocytes/100 WBC (Bld) 6.4 % 0-10 [facility] Blood platelet mean volumeOr dered By: Dr. Ferrer on 08-26-2022 Platelet mean volume (Bld) [Entitic vol] 10.2 fL 6.2-12.0 [facility] Determination of erythrocyte mean corpuscular volume (MCV)Ordered By: Dr. Ferrer on 08-26-2022 MCV (RBC) [Entitic vol] 105.5 fL 81-99 [facility] Hematocrit Auto (Bld) [Volum e fraction]Ordered By: Dr. Ferrer on 08-26-2022 Hematocrit (Bld) [Volume fraction] 42.2 % 37-47 [facility] Laboratory - Chemistry and C hemistry - challengeOrdered By: Dr. Ferrer on 08-26-2022 ALP [Catalytic activity/Vol] 81 U/L 45-117 [facility] ALT [Catalytic activity/Vol] 20 U/L 13-56 [facility] CO2 [Moles/Vol] 32.0 mmol/L 21.0-32.0 [facility] Globulin (S) [Mass/Vol] 3.0 g/dL 2.2-4.2 [facility] Urea nitrogen/Creatinine [Mass ratio] 17.7 mg/mg 10-20 [facility] Laboratory - Hematology and Cell countsOrdered By: Dr. Ferrer on 08-26-2022 Erythrocyte distribution width (RBC) [Entitic vol] 50.3 fL 35.1-43.9 [facility] Erythrocyte distribution width (RBC) [Ratio] 12.9 % 11.6-14.6 [facility] Immature granulocytes/100 WBC (Bld) 0.000 % 0.0-0.9 [facility] Comment on above: IG% - Immature Granu locytes (promyelocytes, myelocytes and metamyelocytes) > 1% indicates that a LEFT SHIFT is Present. MCH (RBC) [Entitic mass] 34.3 pg 27.0-32.0 [facility] Nucleated RBC/100 WBC (Bld) [Ratio] 0 % 0-5 [facility] MCHC Auto (RBC) [Mass/Vol]Or dered By: Dr. Ferrer on 08-26-2022 MCHC (RBC) [Mass/Vol] 32.5 g/dL 32-36 [facility] No Panel InformationOrdered By: Dr. Ferrer on 08-26-2022 Estimated GFR (MDRD) Amer 86 mL/min >60 [facility] Comment on above: GFR Calc Estimated GFR (MDRD) Non-Af Amer 71 mL/min >60 [facility] Comment on above: Non- GFR Calc Platelets bldOrdered By: Dr. Ferrer on 08-26-2022 Platelets (Bld) [#/Vol] 184 10*3/uL 150-450 [facility] Serum or plasma albumin shira urement (mass/volume)Ordered By: Dr. Ferrer on 08-26-2022 Albumin [Mass/Vol] 4.1 g/dL 3.2-5.0 [facility] Serum or plasma albumin/glob ulin mass ratioOrdered By: Dr. Ferrer on 08-26-2022 Albumin/Globulin [Mass ratio] 1.4 {ratio} 0.9-2.4 [facility] Serum or plasma calcium shira urement (mass/volume)Ordered By: Dr. Ferrer on 08-26-2022 Calcium [Mass/Vol] 9.4 mg/dL 8.5-10.1 [facility] Serum or plasma creatinine m easurement (mass/volume)Ordered By: Dr. Ferrer on 08-26-2022 Creatinine [Mass/Vol] 0.85 mg/dL 0.55-1.02 [facility] Comment on above: The validity of the calculated GFR & GFRAA in patients over 70 years has not been determined. Clinical correlation is essential. Serum or plasma urea nitroge n measurement (mass/volume)Ordered By: Dr. Ferrer on 08-26-2022 Urea nitrogen [Mass/Vol] 15 mg/dL 7-18 [facility] Thin prep Papanicolaou smear with manual screeningOrdered By: Dr. Ferrer on 08-26-2022 Thin prep Papanicolaou smear with manual screening 19 U/L 15-37 [facility] Thin prep Papanicolaou smear with manual screening 4 5-15 [facility] Absolute lymphocyte countOrd ered By: Dr. Ferrer on 06-02-2022 Lymphocytes Auto (Unsp spec) [#/Vol] 1.08 10*3/uL 0.83-4.51 [facility] Basophil percentageOrdered B y: Dr. Ferrer on 06-02-2022 Basophils/100 WBC (Bld) 0.7 % 0-1 [facility] Bilirubin [Mass/Vol] 0.60 mg/dL 0.20-1.00 [facility] Comment on above: For patients on eltr ombopag therapy, use of Dimension [place] TBIL is not recommended. Chloride [Moles/Vol] 108 mmol/L 98-107 [facility] Eosinophils/100 WBC (Bld) 2.6 % 0-5 [facility] Glucose [Mass/Vol] 110 mg/dL 74-106 [facility] Comment on above: Fasting Glucose resu lt from 100 to 125 mg/dL suggests IMPAIRED HOMEOSTASIS per A.D.A. criteria. Neutrophils (Bld) [#/Vol] 2.7 10*3/uL 2.0-7.7 [facility] Neutrophils/100 WBC (Bld) 63.3 % 47-70 [facility] Potassium [Moles/Vol] 4.0 mmol/L 3.5-5.1 [facility] Protein [Mass/Vol] 7.3 g/dL 6.4-8.2 [facility] Sodium [Moles/Vol] 142 mmol/L 136-145 [facility] WBC (Bld) [#/Vol] 4.2 10*3/uL 4.4-11.0 [facility] Blood erythrocytes count (nu mber/volume)Ordered By: Dr. Ferrer on 06-02-2022 RBC (Bld) [#/Vol] 3.84 10*6/uL 4.2-5.4 [facility] Blood hemoglobin measurement (mass/volume)Ordered By: Dr. Ferrer on 06-02-2022 Hemoglobin (Bld) [Mass/Vol] 13.2 g/dL 12.0-15.0 [facility] Blood lymphocytes/100 leukoc ytesOrdered By: Dr. Ferrer on 06-02-2022 Lymphocytes/100 WBC (Bld) 25.8 % 19-41 [facility] Blood monocytes/100 leukocyt esOrdered By: Dr. Ferrer on 06-02-2022 Monocytes/100 WBC (Bld) 7.4 % 0-10 [facility] Blood platelet mean volumeOr dered By: Dr. Ferrer on 06-02-2022 Platelet mean volume (Bld) [Entitic vol] 10.3 fL 6.2-12.0 [facility] Determination of erythrocyte mean corpuscular volume (MCV)Ordered By: Dr. Ferrer on 06-02-2022 MCV (RBC) [Entitic vol] 104.4 fL 81-99 [facility] Hematocrit Auto (Bld) [Volum e fraction]Ordered By: Dr. Ferrer on 06-02-2022 Hematocrit (Bld) [Volume fraction] 40.1 % 37-47 [facility] Laboratory - Chemistry and C hemistry - challengeOrdered By: Dr. Ferrer on 06-02-2022 ALP [Catalytic activity/Vol] 93 U/L 45-117 [facility] ALT [Catalytic activity/Vol] 23 U/L 13-56 [facility] CO2 [Moles/Vol] 29.0 mmol/L 21.0-32.0 [facility] Globulin (S) [Mass/Vol] 3.5 g/dL 2.2-4.2 [facility] Urea nitrogen/Creatinine [Mass ratio] 37.2 mg/mg 10-20 [facility] Laboratory - Hematology and Cell countsOrdered By: Dr. Ferrer on 06-02-2022 Erythrocyte distribution width (RBC) [Entitic vol] 51.0 fL 35.1-43.9 [facility] Erythrocyte distribution width (RBC) [Ratio] 13.3 % 11.6-14.6 [facility] Immature granulocytes/100 WBC (Bld) 0.200 % 0.0-0.9 [facility] Comment on above: IG% - Immature Granu locytes (promyelocytes, myelocytes and metamyelocytes) > 1% indicates that a LEFT SHIFT is Present. MCH (RBC) [Entitic mass] 34.4 pg 27.0-32.0 [facility] Nucleated RBC/100 WBC (Bld) [Ratio] 0 % 0-5 [facility] MCHC Auto (RBC) [Mass/Vol]Or dered By: Dr. Ferrer on 06-02-2022 MCHC (RBC) [Mass/Vol] 32.9 g/dL 32-36 [facility] No Panel InformationOrdered By: Dr. Ferrer on 06-02-2022 Estimated GFR (MDRD) Amer 107 mL/min >60 [facility] Comment on above: GFR Calc Estimated GFR (MDRD) Non-Af Amer 89 mL/min >60 [facility] Comment on above: Non- GFR Calc Platelets bldOrdered By: Dr. Ferrer on 06-02-2022 Platelets (Bld) [#/Vol] 222 10*3/uL 150-450 [facility] Serum or plasma albumin shira urement (mass/volume)Ordered By: Dr. Ferrer on 06-02-2022 Albumin [Mass/Vol] 3.8 g/dL 3.2-5.0 [facility] Serum or plasma albumin/glob ulin mass ratioOrdered By: Dr. Ferrer on 06-02-2022 Albumin/Globulin [Mass ratio] 1.1 {ratio} 0.9-2.4 [facility] Serum or plasma calcium shira urement (mass/volume)Ordered By: Dr. Ferrer on 06-02-2022 Calcium [Mass/Vol] 9.1 mg/dL 8.5-10.1 [facility] Serum or plasma creatinine m easurement (mass/volume)Ordered By: Dr. Ferrer on 06-02-2022 Creatinine [Mass/Vol] 0.70 mg/dL 0.55-1.02 [facility] Comment on above: The validity of the calculated GFR & GFRAA in patients over 70 years has not been determined. Clinical correlation is essential. Serum or plasma urea nitroge n measurement (mass/volume)Ordered By: Dr. Ferrer on 06-02-2022 Urea nitrogen [Mass/Vol] 26 mg/dL 7-18 [facility] Thin prep Papanicolaou smear with manual screeningOrdered By: Dr. Ferrer on 06-02-2022 Thin prep Papanicolaou smear with manual screening 25 U/L 15-37 [facility] Thin prep Papanicolaou smear with manual screening 5 5-15 [facility] Absolute lymphocyte counton 04-10-2022 Lymphocytes Auto (Unsp spec) [#/Vol] 1.16 10*3/uL 0.83-4.51 [facility] Work Phone: Basophil percentageon 2021 Basophils/100 WBC (Bld) 0.5 % 0-1 [facility] Work Phone: [phone] Bilirubin [Mass/Vol] 0.50 mg/dL 0.20-1.00 [facility] Work Phone: [phone] Comment on above: For patients on eltr ombopag therapy, use of Dimension [place] TBIL is not recommended. Chloride [Moles/Vol] 103 mmol/L 98-107 [facility] Work Phone: [phone] Eosinophils/100 WBC (Bld) 3.0 % 0-5 [facility] Work Phone: [phone] Glucose [Mass/Vol] 108 mg/dL 74-106 [facility] Work Phone: [phone] Comment on above: Fasting Glucose resu lt from 100 to 125 mg/dL suggests IMPAIRED HOMEOSTASIS per A.D.A. criteria. Neutrophils (Bld) [#/Vol] 2.4 10*3/uL 2.0-7.7 [facility] Work Phone: [phone] Neutrophils/100 WBC (Bld) 58.7 % 47-70 [facility] Work Phone: [phone] Potassium [Moles/Vol] 4.2 mmol/L 3.5-5.1 [facility] Work Phone: [phone] Protein [Mass/Vol] 7.4 g/dL 6.4-8.2 [facility] Work Phone: [phone] Sodium [Moles/Vol] 137 mmol/L 136-145 [facility] Work Phone: [phone] WBC (Bld) [#/Vol] 4.0 10*3/uL 4.4-11.0 [facility] Work Phone: [phone] Blood erythrocytes count (nu mber/volume)on 04-10-2022 RBC (Bld) [#/Vol] 4.06 10*6/uL 4.2-5.4 [facility] Work Phone: [phone] Blood hemoglobin measurement (mass/volume)on 04-10-2022 Hemoglobin (Bld) [Mass/Vol] 13.8 g/dL 12.0-15.0 [facility] Work Phone: Blood lymphocytes/100 leukoc yteson 04-10-2022 Lymphocytes/100 WBC (Bld) 28.9 % 19-41 [facility] Work Phone: Blood monocytes/100 leukocyt eson 04-10-2022 Monocytes/100 WBC (Bld) 8.2 % 0-10 [facility] Work Phone: Blood platelet mean volumeon 04-10-2022 Platelet mean volume (Bld) [Entitic vol] 10.3 fL 6.2-12.0 [facility] Work Phone: [phone] Determination of erythrocyte mean corpuscular volume (MCV)on 04-10-2022 MCV (RBC) [Entitic vol] 102.7 fL 81-99 [facility] Work Phone: Hematocrit Auto (Bld) [Volum e fraction]on 04-10-2022 Hematocrit (Bld) [Volume fraction] 41.7 % 37-47 [facility] Work Phone: [phone] Laboratory - Chemistry and C hemistry - challengeon 04-10-2022 ALP [Catalytic activity/Vol] 91 U/L 45-117 [facility] Work Phone: ALT [Catalytic activity/Vol] 26 U/L 13-56 [facility] Work Phone: [phone] CO2 [Moles/Vol] 29.0 mmol/L 21.0-32.0 [facility] Work Phone: Globulin (S) [Mass/Vol] 3.5 g/dL 2.2-4.2 [facility] Work Phone: Urea nitrogen/Creatinine [Mass ratio] 21.5 mg/mg 10-20 [facility] Work Phone: Laboratory - Hematology and Cell countson 04-10-2022 Erythrocyte distribution width (RBC) [Entitic vol] 49.1 fL 35.1-43.9 [facility] Work Phone: Erythrocyte distribution width (RBC) [Ratio] 13.2 % 11.6-14.6 [facility] Work Phone: Immature granulocytes/100 WBC (Bld) 0.700 % 0.0-0.9 [facility] Work Phone: Comment on above: IG% - Immature Granu locytes (promyelocytes, myelocytes and metamyelocytes) > 1% indicates that a LEFT SHIFT is Present. MCH (RBC) [Entitic mass] 34.0 pg 27.0-32.0 [facility] Work Phone: Nucleated RBC/100 WBC (Bld) [Ratio] 0 % 0-5 [facility] Work Phone: MCHC Auto (RBC) [Mass/Vol]on 04-10-2022 MCHC (RBC) [Mass/Vol] 33.1 g/dL 32-36 [facility] Work Phone: No Panel Informationon 04-10 Estimated GFR (MDRD) Amer 100 mL/min >60 [facility] Work Phone: Comment on above: GFR Calc Estimated GFR (MDRD) Non-Af Amer 82 mL/min >60 [facility] Work Phone: Comment on above: Non- GFR Calc Platelets bldon 04-10-2022 Platelets (Bld) [#/Vol] 209 10*3/uL 150-450 [facility] Work Phone: Serum or plasma albumin hsira urement (mass/volume)on 04-10-2022 Albumin [Mass/Vol] 3.9 g/dL 3.2-5.0 [facility] Work Phone: [phone] Serum or plasma albumin/glob ulin mass ratioon 04-10-2022 Albumin/Globulin [Mass ratio] 1.1 {ratio} 0.9-2.4 [facility] Work Phone: Serum or plasma calcium shira urement (mass/volume)on 04-10-2022 Calcium [Mass/Vol] 9.0 mg/dL 8.5-10.1 [facility] Work Phone: Serum or plasma creatinine m easurement (mass/volume)on 04-10-2022 Creatinine [Mass/Vol] 0.74 mg/dL 0.55-1.02 [facility] Work Phone: Comment on above: The validity of the calculated GFR & GFRAA in patients over 70 years has not been determined. Clinical correlation is essential. Serum or plasma urea nitroge n measurement (mass/volume)on 04-10-2022 Urea nitrogen [Mass/Vol] 16 mg/dL 7-18 [facility] Work Phone: Thin prep Papanicolaou smear with manual screeningon 04-10-2022 Thin prep Papanicolaou smear with manual screening 27 U/L 15-37 [facility] Work Phone: Thin prep Papanicolaou smear with manual screening 5 5-15 [facility] Work Phone: Absolute lymphocyte counton 02-16-2022 Lymphocytes Auto (Unsp spec) [#/Vol] 1.22 10*3/uL 0.83-4.51 [facility] Work Phone: Basophil percentageon 2021 Basophils/100 WBC (Bld) 0.5 % 0-1 [facility] Work Phone: Bilirubin [Mass/Vol] 0.70 mg/dL 0.20-1.00 [facility] Work Phone: Comment on above: For patients on eltr ombopag therapy, use of Dimension [place] TBIL is not recommended. Chloride [Moles/Vol] 106 mmol/L 98-107 [facility] Work Phone: Eosinophils/100 WBC (Bld) 3.0 % 0-5 [facility] Work Phone: Glucose [Mass/Vol] 102 mg/dL 74-106 [facility] Work Phone: Comment on above: Fasting Glucose resu lt from 100 to 125 mg/dL suggests IMPAIRED HOMEOSTASIS per A.D.A. criteria. Neutrophils (Bld) [#/Vol] 2.1 10*3/uL 2.0-7.7 [facility] Work Phone: Neutrophils/100 WBC (Bld) 55.7 % 47-70 [facility] Work Phone: Potassium [Moles/Vol] 3.8 mmol/L 3.5-5.1 [facility] Work Phone: Protein [Mass/Vol] 7.2 g/dL 6.4-8.2 [facility] Work Phone: Sodium [Moles/Vol] 140 mmol/L 136-145 [facility] Work Phone: WBC (Bld) [#/Vol] 3.7 10*3/uL 4.4-11.0 [facility] Work Phone: Blood erythrocytes count (nu mber/volume)on 02-16-2022 RBC (Bld) [#/Vol] 4.24 10*6/uL 4.2-5.4 [facility]: Blood hemoglobin measurement (mass/volume)on 02-16-2022 Hemoglobin (Bld) [Mass/Vol] 14.2 g/dL 12.0-15.0 [facility] Work Phone: Blood lymphocytes/100 leukoc yteson 02-16-2022 Lymphocytes/100 WBC (Bld) 33.2 % 19-41 [facility] Work Phone: Blood monocytes/100 leukocyt eson 02-16-2022 Monocytes/100 WBC (Bld) 7.3 % 0-10 [facility] Work Phone: Blood platelet mean volumeon 02-16-2022 Platelet mean volume (Bld) [Entitic vol] 10.9 fL 6.2-12.0 [facility] Work Phone: Determination of erythrocyte mean corpuscular volume (MCV)on 02-16-2022 MCV (RBC) [Entitic vol] 100.7 fL 81-99 [facility] Work Phone: [phone] Hematocrit Auto (Bld) [Volum e fraction]on 02-16-2022 Hematocrit (Bld) [Volume fraction] 42.7 % 37-47 [facility] Work Phone: [phone] Laboratory - Chemistry and C hemistry - challengeon 02-16-2022 ALP [Catalytic activity/Vol] 96 U/L 45-117 [facility] Work Phone: ALT [Catalytic activity/Vol] 16 U/L 13-56 [facility] Work Phone: CO2 [Moles/Vol] 27.0 mmol/L 21.0-32.0 [facility] Work Phone: [phone] Globulin (S) [Mass/Vol] 3.2 g/dL 2.2-4.2 [facility] Work Phone: [phone] Urea nitrogen/Creatinine [Mass ratio] 29.2 mg/mg 10-20 [facility] Work Phone: [phone] Laboratory - Hematology and Cell countson 02-16-2022 Erythrocyte distribution width (RBC) [Entitic vol] 47.5 fL 35.1-43.9 [facility] Work Phone: [phone] Erythrocyte distribution width (RBC) [Ratio] 12.8 % 11.6-14.6 [facility] Work Phone: [phone] Immature granulocytes/100 WBC (Bld) 0.300 % 0.0-0.9 [facility] Work Phone: [phone] Comment on above: IG% - Immature Granu locytes (promyelocytes, myelocytes and metamyelocytes) > 1% indicates that a LEFT SHIFT is Present. MCH (RBC) [Entitic mass] 33.5 pg 27.0-32.0 [facility] Work Phone: [phone] Nucleated RBC/100 WBC (Bld) [Ratio] 0 % 0-5 [facility] Work Phone: MCHC Auto (RBC) [Mass/Vol]on 02-16-2022 MCHC (RBC) [Mass/Vol] 33.3 g/dL 32-36 [facility] Work Phone: No Panel Informationon 02-16 Estimated GFR (MDRD) Amer 110 mL/min >60 [facility] Work Phone: Comment on above: GFR Calc Estimated GFR (MDRD) Non-Af Amer 91 mL/min >60 [facility] Work Phone: Comment on above: Non- GFR Calc Platelets bldon 02-16-2022 Platelets (Bld) [#/Vol] 196 10*3/uL 150-450 [facility] Work Phone: Serum or plasma albumin shira urement (mass/volume)on 02-16-2022 Albumin [Mass/Vol] 4.0 g/dL 3.2-5.0 [facility] Work Phone: Serum or plasma albumin/glob ulin mass ratioon 02-16-2022 Albumin/Globulin [Mass ratio] 1.2 {ratio} 0.9-2.4 [facility] Work Phone: Serum or plasma calcium shira urement (mass/volume)on 02-16-2022 Calcium [Mass/Vol] 9.3 mg/dL 8.5-10.1 [facility] Work Phone: Serum or plasma creatinine m easurement (mass/volume)on 02-16-2022 Creatinine [Mass/Vol] 0.69 mg/dL 0.55-1.02 [facility] Work Phone: Comment on above: The validity of the calculated GFR & GFRAA in patients over 70 years has not been determined. Clinical correlation is essential. Serum or plasma urea nitroge n measurement (mass/volume)on 02-16-2022 Urea nitrogen [Mass/Vol] 20 mg/dL 7-18 [facility] Work Phone: Thin prep Papanicolaou smear with manual screeningon 02-16-2022 Thin prep Papanicolaou smear with manual screening 21 U/L 15-37 [facility] Work Phone: Thin prep Papanicolaou smear with manual screening 7 5-15 [facility] Work Phone: Absolute lymphocyte counton 12-22-2021 Lymphocytes Auto (Unsp spec) [#/Vol] 1.18 10*3/uL 0.83-4.51 [facility] Work Phone: Basophil percentageon 2021 Basophils/100 WBC (Bld) 0.3 % 0-1 [facility] Work Phone: Bilirubin [Mass/Vol] 1.00 mg/dL 0.20-1.00 [facility] Work Phone: Comment on above: For patients on eltr ombopag therapy, use of Dimension [place] TBIL is not recommended. Chloride [Moles/Vol] 104 mmol/L 98-107 [facility] Work Phone: Eosinophils/100 WBC (Bld) 2.1 % 0-5 [facility] Work Phone: Glucose [Mass/Vol] 99 mg/dL 74-106 [facility] Work Phone: Neutrophils (Bld) [#/Vol] 2.2 10*3/uL 2.0-7.7 [facility] Work Phone: Neutrophils/100 WBC (Bld) 58.5 % 47-70 [facility] Work Phone: Potassium [Moles/Vol] 3.7 mmol/L 3.5-5.1 [facility] Work Phone: Protein [Mass/Vol] 7.4 g/dL 6.4-8.2 [facility] Work Phone: Sodium [Moles/Vol] 139 mmol/L 136-145 [facility] Work Phone: WBC (Bld) [#/Vol] 3.7 10*3/uL 4.4-11.0 [facility] Work Phone: Blood erythrocytes count (nu mber/volume)on 12-22-2021 RBC (Bld) [#/Vol] 4.27 10*6/uL 4.2-5.4 [facility] Work Phone: Blood hemoglobin measurement (mass/volume)on 12-22-2021 Hemoglobin (Bld) [Mass/Vol] 14.1 g/dL 12.0-15.0 [facility] Work Phone: Blood lymphocytes/100 leukoc yteson 12-22-2021 Lymphocytes/100 WBC (Bld) 31.6 % 19-41 [facility] Work Phone: Blood monocytes/100 leukocyt eson 12-22-2021 Monocytes/100 WBC (Bld) 7.0 % 0-10 [facility] Work Phone: [phone] Blood platelet mean volumeon 12-22-2021 Platelet mean volume (Bld) [Entitic vol] 10.6 fL 6.2-12.0 [facility] Work Phone: Determination of erythrocyte mean corpuscular volume (MCV)on 12-22-2021 MCV (RBC) [Entitic vol] 101.2 fL 81-99 [facility] Work Phone: [phone] Hematocrit Auto (Bld) [Volum e fraction]on 12-22-2021 Hematocrit (Bld) [Volume fraction] 43.2 % 37-47 [facility] Work Phone: Laboratory - Chemistry and C hemistry - challengeon 12-22-2021 ALP [Catalytic activity/Vol] 92 U/L 45-117 [facility] Work Phone: [phone] ALT [Catalytic activity/Vol] 19 U/L 13-56 [facility] Work Phone: [phone] CO2 [Moles/Vol] 28.0 mmol/L 21.0-32.0 [facility] Work Phone: [phone] Globulin (S) [Mass/Vol] 3.2 g/dL 2.2-4.2 [facility] Work Phone: [phone] Urea nitrogen/Creatinine [Mass ratio] 21.7 mg/mg 10-20 [facility] Work Phone: Laboratory - Hematology and Cell countson 12-22-2021 Erythrocyte distribution width (RBC) [Entitic vol] 51.3 fL 35.1-43.9 [facility] Work Phone: Erythrocyte distribution width (RBC) [Ratio] 13.7 % 11.6-14.6 [facility] Work Phone: Immature granulocytes/100 WBC (Bld) 0.500 % 0.0-0.9 [facility] Work Phone: Comment on above: IG% - Immature Granu locytes (promyelocytes, myelocytes and metamyelocytes) > 1% indicates that a LEFT SHIFT is Present. MCH (RBC) [Entitic mass] 33.0 pg 27.0-32.0 [facility] Work Phone: Nucleated RBC/100 WBC (Bld) [Ratio] 0 % 0-5 [facility] Work Phone: MCHC Auto (RBC) [Mass/Vol]on 12-22-2021 MCHC (RBC) [Mass/Vol] 32.6 g/dL 32-36 [facility] Work Phone: No Panel Informationon 12-22 Estimated GFR (MDRD) Amer 101 mL/min >60 [facility] Work Phone: Comment on above: GFR Calc Estimated GFR (MDRD) Non-Af Amer 83 mL/min >60 [facility] Work Phone: Comment on above: Non- GFR Calc Platelets bldon 12-22-2021 Platelets (Bld) [#/Vol] 210 10*3/uL 150-450 [facility] Work Phone: Serum or plasma albumin shira urement (mass/volume)on 12-22-2021 Albumin [Mass/Vol] 4.2 g/dL 3.2-5.0 [facility] Work Phone: Serum or plasma albumin/glob ulin mass ratioon 12-22-2021 Albumin/Globulin [Mass ratio] 1.3 {ratio} 0.9-2.4 [facility] Work Phone: Serum or plasma calcium shira urement (mass/volume)on 12-22-2021 Calcium [Mass/Vol] 9.1 mg/dL 8.5-10.1 [facility] Work Phone: Serum or plasma creatinine m easurement (mass/volume)on 12-22-2021 Creatinine [Mass/Vol] 0.74 mg/dL 0.55-1.02 [facility] Work Phone: Comment on above: The validity of the calculated GFR & GFRAA in patients over 70 years has not been determined. Clinical correlation is essential. Serum or plasma urea nitroge n measurement (mass/volume)on 12-22-2021 Urea nitrogen [Mass/Vol] 16 mg/dL 7-18 [facility] Work Phone: Thin prep Papanicolaou smear with manual screeningon 12-22-2021 Thin prep Papanicolaou smear with manual screening 22 U/L 15-37 [facility] Work Phone: Thin prep Papanicolaou smear with manual screening 7 5-15 [facility] Work Phone: XR Lumbar spine 2 Viewson IMPRESSION: Degenera tive changes as detailed in report. Anterolisthesis of L4 on L5 does not change on flexion and extension and compared to prior examination. No obvious pars interarticularis defect. Professional Wrestler[facility] Transcribe Date/Time: Sep 23 2021 2:17P Dictated by : BILL PAULINO MD This examination was interpreted and the report reviewed and electronically signed by: BILL PAULINO MD on Sep 23 2021 2:20PM [facility] DIVISION OF RADIOLOGY * * *Final Report* * * DATE OF EXAM: Sep 23 2021 1:59PM WOX [id number] - XR LUMBAR 2V FLEX/EXT / PROCEDURE REASON: Spondylolisthesis at L4-L5 level * * * * Physician Interpretation * * * * EXAMINATION: XR LUMBAR 2V FLEX/EXT HISTORY: Lower back pain follow up to x-rays 09/19/21. Spondylolisthesis at L4-L5 level. TECHNIQUE: XR LUMBAR 2V FLEX/EXT Laterality: NOT APPLICABLE Number of different views (projections): 2 M: XB_1 COMPARISON: Comparison is made to prior study dated 09/19/2021 RESULT: Lateral standing flexion and extension radiographs of the lumbosacral spine again demonstrate multilevel degenerative change with hypertrophic facet change at the lower 3 levels. There is grade 1 anterior spondylolisthesis of L4 with respect to L5. There is no obvious associated pars interarticularis defect. There is no evidence of instability on flexion and extension. Soft tissues are within normal limits with aortoiliac calcification and cholelithiasis. DIVISION OF RADIOLOGY Provider, [facility] - 09/23/2021 * * *Final Report* * * DATE OF EXAM: Sep 23 2021 1:59PM WOX [id number] - XR LUMBAR 2V FLEX/EXT / PROCEDURE REASON: Spondylolisthesis at L4-L5 level * * * * Physician Interpretation * * * * EXAMINATION: XR LUMBAR 2V FLEX/EXT HISTORY: Lower back pain follow up to x-rays 09/19/21. Spondylolisthesis at L4-L5 level. TECHNIQUE: XR LUMBAR 2V FLEX/EXT Laterality: NOT APPLICABLE Number of different views (projections): 2 M: XB_1 COMPARISON: Comparison is made to prior study dated 09/19/2021 RESULT: Lateral standing flexion and extension radiographs of the lumbosacral spine again demonstrate multilevel degenerative change with hypertrophic facet change at the lower 3 levels. There is grade 1 anterior spondylolisthesis of L4 with respect to L5. There is no obvious associated pars interarticularis defect. There is no evidence of instability on flexion and extension. Soft tissues are within normal limits with aortoiliac calcification and cholelithiasis. IMPRESSION IMPRESSION: Degenerative changes as detailed in report. Anterolisthesis of L4 on L5 does not change on flexion and extension and compared to prior examination. No obvious pars interarticularis defect. 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 Professional Wrestler: PATO Transcribe Date/Time: Sep 19 2021 1:05P Dictated by : MELVIN MOON MD This examination was interpreted and the report reviewed and electronically signed by: MELVIN MOON MD on Sep 19 2021 1:07PM [facility] DIVISION OF RADIOLOGY * * *Final Report* * * DATE OF EXAM: Sep 19 2021 12:01PM WOX [id number] - XR LUMBAR PARS 4V AP/LAT/OBL X2 / PROCEDURE REASON: multiple diagnoses * * * * Physician Interpretation * * * * EXAM TITLE: XR LUMBAR PARS 4V AP/LAT/OBL X2 EXAM DATE/TIME: 09/19/2021 12:01 PM COMPARISON: None. CLINICAL INDICATION/HISTORY: Low back pain. TECHNIQUE: AP, lateral, oblique and cone down lateral views of the lumbar spine are presented. FINDINGS: There are five coh-opg-ywkgfwj lumbar vertebrae. No acute fracture seen. There is grade 1 L4 on L5 anterolisthesis. The disc spaces are grossly preserved. There is mild osteophyte formation, with facet arthrosis in the lower lumbar spine. Kissing spine seen on lateral view. Others: There is a 3.3 cm ovoid opacity in the right lateral abdomen, presumably representing gallbladder stone. DIVISION OF RADIOLOGY Provider, [facility] - 09/19/2021 * * *Final Report* * * DATE OF EXAM: Sep 19 2021 12:01PM WOX [id number] - XR LUMBAR PARS 4V AP/LAT/OBL X2 / PROCEDURE REASON: multiple diagnoses * * * * Physician Interpretation * * * * EXAM TITLE: XR LUMBAR PARS 4V AP/LAT/OBL X2 EXAM DATE/TIME: 09/19/2021 12:01 PM COMPARISON: None. CLINICAL INDICATION/HISTORY: Low back pain. TECHNIQUE: AP, lateral, oblique and cone down lateral views of the lumbar spine are presented. FINDINGS: There are five aaf-ddi-ykubypu lumbar vertebrae. No acute fracture seen. There is grade 1 L4 on L5 anterolisthesis. The disc spaces are grossly preserved. There is mild osteophyte formation, with facet arthrosis in the lower lumbar spine. Kissing spine seen on lateral view. Others: There is a 3.3 cm ovoid opacity in the right lateral abdomen, presumably representing gallbladder stone. IMPRESSION IMPRESSION: Lumbar spine degenerative changes as described above. Professional Wrestler: PATO Transcribe Date/Time: Sep 19 2021 1:05P Dictated by : MELVIN MOON MD This examination was interpreted and the report reviewed and electronically signed by: MELVIN MOON MD on Sep 19 2021 1:07PM EST [facility] Radiology Study observation (narrative) [facility] XR Lumbar spine AP and Later al and obliqueOrdered By: [facility] Provider on 09-19-2021 [facility] Vital Signs Date Time Vital Sign Value Performing Clinician Facility 05-03-2025 13:36-0400 Body height 154.[address] Kade Fry MD Work Phone: 3(086)829-403582 [place] [address] 05-03-2025 13:36-0400 Body mass index (BMI) [Ratio] 36.2 kg/m2 Dr. Kade Fry MD Work Phone: 3(687)124-588329 [place] [address] 05-03-2025 13:36-0400 Body weight 87.[address] Kade Fry MD Work Phone: 0(753)432-297729 [place] [address] 05-03-2025 13:36-0400 Diastolic blood pressure 84 mm[Hg] Dr. Kade Fry MD Work Phone: 1(084)868-830929 [place] [address] 05-03-2025 13:36-0400 Heart rate 67 /min Dr. Kade Fry MD Work Phone: 6(314)930-189182 [place] [address] 05-03-2025 13:36-0400 Respiratory rate 17 /min Dr. Kade Fry MD Work Phone: 9(031)961-646929 [place] [address] 05-03-2025 13:36-0400 SaO2% (BldA) [Mass fraction] 97 % Dr. Kade Fry MD Work Phone: 6(391)184-313782 [place] [address] 05-03-2025 13:36-0400 Systolic blood pressure 172 mm[Hg] Dr. Kade Fry MD Work Phone: 8(946)376-592082 [place] [address] 02-12-2025 11:23-0400 Body temperature 97.8 [degF] Dr. Kade Fry MD Work Phone: 9(992)667-941682 [place] [address] 02-12-2025 11:23-0400 Diastolic blood pressure 68 mm[Hg] Dr. Kade Fry MD Work Phone: 5(239)798-748129 [place] [address] 02-12-2025 11:23-0400 Heart rate 53 /min Dr. Kade Fry MD Work Phone: 6(375)371-023229 [place] [address] 02-12-2025 11:23-0400 Respiratory rate 16 /min Dr. Kade Fry MD Work Phone: 5(027)041-576329 [place] [address] 02-12-2025 11:23-0400 SaO2% (BldA) [Mass fraction] 98 % Dr. Kaed Fry MD Work Phone: 4(536)458-747782 [place] [address] 02-12-2025 11:23-0400 Systolic blood pressure 123 mm[Hg] Dr. Kade Fry MD Work Phone: 7(819)081-844029 [place] [address] 02-12-2025 09:26-0400 Body height 154.[address] Kade Fry MD Work Phone: 9(872)166-736629 [place] [address] 02-12-2025 09:26-0400 Body mass index (BMI) [Ratio] 36.1 kg/m2 Dr. Kade Fry MD Work Phone: 5(819)663-132282 [place] [address] 02-12-2025 09:26-0400 Body weight 86.[address] Kade Fry MD Work Phone: 1(538)303-967182 [place] [address] 09-21-2024 09:29-0500 Diastolic blood pressure 78 mm[Hg] Kade Fry MD Work Phone: [facility] 09-21-2024 09:29-0500 Systolic blood pressure 138 mm[Hg] Kade Fry MD Work Phone: 0(316)422-924816 [place] [address] 09-21-2024 08:36-0500 Body height 156.2 cm Kade Fry MD Work Phone: [facility] 09-21-2024 08:36-0500 Body mass index (BMI) [Ratio] 36.21 kg/m2 Kade Fry MD Work Phone: [facility] 09-21-2024 08:36-0500 Body weight 88.36 kg Kade Fry MD Work Phone: [facility] 09-21-2024 08:36-0500 Heart rate 58 /min Kade Fry MD Work Phone: [facility] 09-21-2022 09:12-0500 Body height 157 cm Ena Aguiar PA-C Work Phone: [facility] 09-21-2022 09:12-0500 Body weight 87.73 kg Ena Aguiar PA-C Work Phone: [facility] 09-21-2022 09:12-0500 Diastolic blood pressure 80 mm[Hg] Ena Aguiar PA-C Work Phone: [facility] 09-21-2022 09:12-0500 Heart rate 68 /min Enajoseph Aguiar PA-C Work Phone: [facility] 09-21-2022 09:12-0500 Respiratory rate 16 /min Ena Aguiar PA-C Work Phone: [facility] 09-21-2022 09:12-0500 Systolic blood pressure 132 mm[Hg] Ena Aguiar PA-C Work Phone: [facility] 06-18-2022 10:05-0400 Body temperature 97.7 [degF] Chapis Sherley COLLEGE PROFESSOR.DEVELOPER DESIGNER Work Phone: [facility] 06-18-2022 10:05-0400 Body weight 87.54 kg Chapis Sherley COLLEGE PROFESSOR.DEVELOPER DESIGNER Work Phone: [facility] 06-18-2022 10:05-0400 Diastolic blood pressure 88 mm[Hg] Chapis Sherley COLLEGE PROFESSOR.DEVELOPER DESIGNER Work Phone: [facility] 06-18-2022 10:05-0400 Heart rate 80 /min Chapis Sherley COLLEGE PROFESSOR.DEVELOPER DESIGNER Work Phone: [facility] 06-18-2022 10:05-0400 Respiratory rate 18 /min Chapis Sherley COLLEGE PROFESSOR.DEVELOPER DESIGNER Work Phone: [facility] 06-18-2022 10:05-0400 SaO2% (BldA) [Mass fraction] 98 % Chapis Sherley COLLEGE PROFESSOR.DEVELOPER DESIGNER Work Phone: [facility] 06-18-2022 10:05-0400 Systolic blood pressure 162 mm[Hg] Chapis Sherley COLLEGE PROFESSOR.DEVELOPER DESIGNER Work Phone: [facility] 11-12-2021 10:03-0400 Body height 154.9 cm Sayra Zachary PA-C Work Phone: [facility] 11-12-2021 10:03-0400 Body temperature 98.01 [degF] Sayra Katey PA-C Work Phone: [facility] 11-12-2021 10:03-0400 Body weight 84.37 kg Sayra Katey PA-C Work Phone: [facility] 11-12-2021 10:03-0400 Diastolic blood pressure 78 mm[Hg] Sayra Katey PA-C Work Phone: [facility] 11-12-2021 10:03-0400 Heart rate 72 /min Sayra Katey PA-C Work Phone: [facility] 11-12-2021 10:03-0400 SaO2% (BldA) [Mass fraction] 96 % Sayra Zachary PA-C Work Phone: [facility] 11-12-2021 10:03-0400 Systolic blood pressure 122 mm[Hg] Sayra Zachary PA-C Work Phone: [facility] Encounters Encounter Date Encounter Type Care Provider Facility Start: 05-28-2025 ambulatory Tavon Beauchamp Facility: [facility] Start: 05-15-2025 Non-patient / Non-visit Dr. Bauer Of srini [facility] -[facility] Work Phone: Start: 05-15-2025 Encounter for other preprocedural examination Tavon Beauchamp [facility] Start: 05-04-2025 End: 05-07-2025 Chart abstracting Ree Ng MA Family [facility] [address] Comment on above: ext document (Surger y note); Outside [id number] Ordered Start: 05-03-2025 End: 05-03-[address] Kade Fry MD Work Phone: -Laboratory Specimen Start: 05-03-2025 End: 05-03-[address] Tavon Beauchamp MD -Laboratory Specimen Work Phone: Start: 05-03-2025 End: 05-03-[address] Tavon Beauchamp MD -[facility] Work Phone: Start: 05-03-2025 End: 05-03-[address] Kade Fry MD Work Phone: -[facility] Start: 05-03-2025 End: 05-03-2025 ambulatory Kade Fry Facility:[facility] Start: 04-06-2025 End: 04-06-2025 Patient encounter procedure Zulma AGARWAL -[facility] Work Phone: Start: 04-06-2025 End: 04-06-[address] Kade Fry MD Work Phone: -[facility] Start: 04-02-2025 End: 04-02-[address] Kade Fry MD Work Phone: -Cat Scan [facility] Start: 04-02-2025 End: 04-02-2025 Patient encounter procedure Zulma AGARWAL -Cat Scan [facility] Work Phone: Start: 04-02-2025 End: 04-02-2025 ambulatory Kade Fry Facility:[facility] Start: 03-27-2025 End: 03-27-[address] Kade Fry MD Work Phone: -[facility] [place] Start: 03-27-2025 End: 03-27-[address] Dina Ferrer MD -[facility] Work Phone: Start: 03-27-2025 End: 03-27-2025 ambulatory Kade Fry Facility:[facility] Start: 03-09-2025 End: 03-09-2025 Patient encounter procedure Zulma AGARWAL -[facility] Work Phone: Start: 03-09-2025 End: 03-09-[address] Kade Fry MD Work Phone: [facility] Start: 02-12-2025 End: 02-12-2025 Chart abstracting Kade Fry MD Work Phone: [facility] Comment on above: Outside Testing (EGD , Colonoscopy, and GI OV note) Start: 02-12-2025 Non-patient / Non-visit Darrin Garcia nd, DO -[facility] Start: 02-12-2025 End: 02-12-2025 Admission to same day surgery center Darrin Lozoya DO -Endoscopy Work Phone: Start: 02-12-2025 End: 02-12-[address] Kade Fry MD Work Phone: [facility] Work Phone: Start: 01-19-2025 End: 01-19-2025 Refill Kade Fry MD Work Phone: [facility] Comment on above: Refill Request Start: 12-26-2024 End: 12-26-[address] Kade Fry MD Work Phone: [facility] Work Phone: Start: 12-26-2024 End: 12-26-[address] Dina Ferrer MD -Laboratory, [place] Work Phone: Start: 12-26-2024 End: 12-26-2024 ambulatory Dina Ferrer Facility:[facility] Start: 12-19-2024 End: 12-19-2024 Chart abstracting Kade Fry MD Work Phone: [facility] [place] Comment on above: Outside Gastric Empt radha Study Start: 12-18-2024 End: 12-18-2024 Patient encounter procedure Darrinmichelle Lozoya DO -Nuclear Medicine, [facility] Work Phone: Start: 12-18-2024 End: 12-18-2024 ambulatory Darrin Devora Facility:[facility] Start: 12-05-2024 End: 12-06-2024 Follow-up encounter Kade Fry MD Work Phone: Family [facility] Start: 12-05-2024 End: 12-05-2024 ambulatory KADE FRY Facility:[facility] Start: 12-05-2024 End: 12-05-2024 Subsequent hospital visit by physician Diagnostic Mammo [facility] Comment on above: Abnormal mammogram [ R92.8] Start: 12-01-2024 End: 12-01-2024 Chart abstracting Kade Fry MD Work Phone: [facility] [place] Comment on above: Outside Bdwo-Rxy-WJN Ordered Start: 11-29-2024 End: 11-29-2024 Chart abstracting Feliciano Leahy MA [facility] Comment on above: Results (Outside fac ility labs /) Start: 11-27-2024 End: 11-27-2024 ambulatory MANOJ GAMINO Facility:[facility] Start: 11-27-2024 End: 11-27-2024 Patient encounter procedure Manoj Gamino MD Work Phone: Orthopaedics Comment on above: Carpal tunnel syndro me of left wrist (Primary Dx); Trigger thumb, left thumb Start: 11-27-2024 End: 11-27-[address] Kade Fry MD Work Phone: [facility] Work Phone: Start: 11-27-2024 End: 11-27-2024 Patient encounter procedure Darrin Devora DO -Laboratory Work Phone: Start: 11-27-2024 End: 11-27-2024 Patient encounter procedure Darrin Lozoya [facility] Work Phone: Start: 11-27-2024 End: 11-27-2024 ambulatory Kade Fry Facility:[facility] Start: 11-27-2024 End: 11-27-2024 ambulatory Darrin Devora Facility:[facility] Start: 11-23-2024 End: 11-23-2024 ambulatory CHETAN BHAGAT Facility:[facility] Start: 11-23-2024 End: 11-23-2024 Patient encounter procedure Chetan Bhagat Work Phone: Podiatry Comment on above: Open wound of toe, i nitial encounter (Primary Dx) Start: 11-15-2024 End: 11-15-2024 Chart abstracting Feliciano Leahy MA Family [facility] Comment on above: Consult (Outside Mike rology /) Start: 11-15-2024 End: 11-15-2024 Telephone encounter Isidra Andrade MD Work Phone: Mammography Comment on above: Mammogram Result Carrington l Back (right breast diag mamm and us cb per ym) Start: 11-14-2024 ambulatory Manoj Gamino Facility :[facility] Start: 11-14-2024 Non-patient / Non-visit Dr. Audrey Bello MD -[facility]- Start: 11-14-2024 End: 11-14-[address] Kade Fry MD Work Phone: [facility] Work Phone: Start: 11-14-2024 End: 11-14-[address] Manoj Gamino MD -Pulmonary Services/Neurology Work Phone: Start: 11-13-2024 End: 11-15-2024 Follow-up encounter Kade Fry MD Work Phone: [facility] [place] Comment on above: Results Start: 11-13-2024 End: 11-14-2024 ambulatory KADE FRY Facility:[facility] Start: 11-13-2024 End: 11-13-2024 Subsequent hospital visit by physician Screen Mammo [facility] Comment on above: Encounter for screen ing mammogram for breast cancer [Z12.31] Start: 10-31-2024 End: 10-31-2024 ambulatory CHETAN BHAGAT Facility:[facility] Start: 10-31-2024 End: 10-31-2024 Patient encounter procedure Chetan Bhagat Work Phone: Podiatry Comment on above: Onychodystrophy (Christianne tova Dx) Start: 10-17-2024 End: 10-18-2024 Follow-up encounter Chetan Bhagat Work Phone: Podiatry Start: 10-17-2024 End: 10-17-2024 ambulatory KADE FRY Facility:[facility] Start: 10-16-2024 End: 10-16-2024 ambulatory KADE FRY Facility:[facility] Start: 10-16-2024 End: 10-16-2024 Patient encounter procedure Chetan Bhagat Work Phone: Podiatry Comment on above: Onychodystrophy (Christianne tova Dx); Pain in toes of both feet; Diminished pulses in lower extremity Start: 10-16-2024 End: 10-16-2024 ambulatory KADE FRY Facility:[facility] Start: 10-16-2024 End: 10-16-2024 Patient encounter procedure Manoj Gamino MD Work Phone: Orthopaedics Comment on above: 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 Dina Ferrer MD -Laboratory, [place] Work Phone: Start: 10-03-2024 End: 10-03-2024 [facility] Facility:[facility] Start: 09-25-2024 End: 09-25-2024 Refill Kade Fry MD Work Phone: [facility] [place] Comment on above: Refill Request Start: 09-21-2024 Patient encounter procedure KADE FRY [facility] Start: 09-21-2024 End: 09-21-2024 Patient encounter procedure Kade Fry MD Work Phone: [facility] [place] Comment on above: Encounter for Medica re annual wellness exam (Primary Dx); Essential hypertension; Mixed hyperlipidemia; Elevated blood sugar; GERD without esophagitis; Dysphagia, unspecified type; Cassidy's thyroiditis; Fibromyalgia; Mixed stress and urge urinary incontinence; Osteopenia, senile; Inflammatory arthritis; Severe obesity (BMI 35.0-39.9) with comorbidity (HCC); Numbness and tingling in left hand; Trigger finger of left thumb; Pain in toes of both feet; Advance directive discussed with patient; Encounter for screening mammogram for breast cancer; Encounter for screening examination for other mental health and behavioral disorders; Screening for depression; Screening for colon cancer Start: 09-21-2024 End: 09-21-2024 [facility] KADE FRY Facility:[facility] Start: 09-14-2024 End: 09-14-2024 [facility] KADE FRY [facility] Services:[facility] Start: 08-11-2024 End: 08-11-2024 Telephone encounter Kade Fry MD Work Phone: [facility] [place] Comment on above: Medication Problem; Orders Start: 07-14-2024 End: 07-14-2024 [facility] Facility:[facility] Start: 05-22-2024 End: 05-22-2024 Chart abstracting Kade Fry MD Work Phone: [facility] Comment on above: Outside Reeq-Wrg-UCD Ordered Start: 05-19-2024 End: 05-19-2024 [facility] Kade Fry Facility:[facility] Start: 04-17-2024 End: 04-17-2024 Chart abstracting Feliciano Leahy MA [facility] [place] Comment on above: Results (Outside lab s /) Start: 02-11-2024 ambulatory Kade apodaca MD Work Phone: [facility] Comment on above: Allied Health Visit (Medication Adherence Outreach/) Start: 01-21-2024 Chart abstracting Kade contreras MD Work Phone: [facility] Start: 01-18-2024 Refill Kade apodaca MD Work Phone: [facility] Comment on above: Refill Request Start: 12-13-2023 Telephone encounter Kade Fry MD Work Phone: [facility] Comment on above: Medication Problem Start: 11-12-2023 Documentation procedure Mammog yvonne Coordinator [facility] Start: 11-12-2023 Letter encounter Mammography Coordinator [facility] Department Start: 11-12-2023 Telephone encounter Kade Fry MD Work Phone: [facility] Comment on above: Results Start: 11-12-2023 End: 11-12-2023 Subsequent hospital visit by physician Screen Mammo [facility] Comment on above: Encounter for screen ing mammogram for breast cancer [Z12.31] Start: 10-22-2023 End: 10-22-2023 ambulatory [facility] Work Phone: Start: 10-22-2023 End: 10-22-2023 Patient encounter procedure [facility] Work Phone: Start: 10-06-2023 Telephone encounter Kade Fry MD Work Phone: [facility] Comment on above: Bone Density Test Qu estion Start: 09-21-2023 Patient encounter procedure Kade Fry MD Work Phone: [facility] Work Phone: Start: 08-24-2023 End: 08-24-2023 Subsequent hospital visit by physician [facility] Work Phone: Radiology Comment on above: Cat bite of left kirsty oscar, initial encounter [S61.452A, W55.01XA] Start: 07-27-2023 Chart abstracting Kade contreras MD Work Phone: [facility] Comment on above: Outside Pudo-Mgj-BHK Ordered Start: 07-23-2023 End: 07-23-2023 ambulatory [facility] Work Phone: Start: 07-23-2023 End: 07-23-2023 Patient encounter procedure [facility] Work Phone: Start: 07-21-2023 Refill Kade apodaca MD Work Phone: [facility] Comment on above: Refill Request Start: 05-07-2023 Chart abstracting Kade contreras MD Work Phone: [facility] Comment on above: Outside Rybc-Zce-XJG Ordered Start: 05-07-2023 End: 05-07-2023 ambulatory [facility] Work Phone: Start: 05-07-2023 End: 05-07-2023 Patient encounter procedure [facility] Work Phone: Start: 02-05-2023 End: 02-05-2023 ambulatory [facility] Work Phone: Start: 02-05-2023 End: 02-05-2023 Patient encounter procedure [facility] Start: 01-26-2023 [facility] Comment on above: Population Health Na vigation Outreach ([employer] Care Gaps) Start: 11-26-2022 Chart abstracting Kade contreras MD Work Phone: [facility] Comment on above: Results, Lab Start: 11-20-2022 End: 11-20-2022 ambulatory [facility] Work Phone: Start: 11-20-2022 End: 11-20-2022 Patient encounter procedure [facility] Start: 11-09-2022 Documentation procedure Mammog yvonne Coordinator [facility] Start: 11-09-2022 Letter encounter Mammography Coordinator [facility] Department Start: 11-09-2022 Telephone encounter Addie mondragon APRN.DEVELOPER DESIGNER Work Phone: [facility] [place] Comment on above: Results Start: 11-06-2022 End: 11-06-2022 Subsequent hospital visit by physician Screen Mammo [facility] Comment on above: Encounter for screen ing mammogram for breast cancer [Z12.31] Start: 09-21-2022 End: 09-21-2022 Patient encounter procedure Ena Aguiar PA-C Work Phone: [facility] Comment on above: Medicare annual well ness visit, initial (Primary Dx); Advance directive discussed with patient; Essential hypertension; Mixed hyperlipidemia; GERD without esophagitis; Inflammatory arthritis; Fibromyalgia; Cassidy's thyroiditis; Mixed stress and urge urinary incontinence; Elevated glucose; Encounter for screening mammogram for breast cancer; Screening for colon cancer; Onychomycosis Start: 09-08-2022 Telephone encounter Kade Fry MD Work Phone: [facility] Comment on above: Lab Orders Start: 08-26-2022 End: 08-26-2022 ambulatory [facility] Work Phone: Start: 08-26-2022 End: 08-26-2022 Patient encounter procedure [facility] Start: 08-05-2022 Refill Kade apodaca MD Work Phone: [facility] Comment on above: Refill Request Start: 06-18-2022 End: 06-18-2022 Patient encounter procedure Chapis Sherley OCAMPO.DEVELOPER DESIGNER Work Phone: [place] [facility] Comment on above: Tick bite of right t high, initial encounter (Primary Dx) Start: 06-02-2022 End: 06-02-2022 Patient encounter procedure [facility] Start: 04-10-2022 End: 04-10-2022 ambulatory [facility] Work Phone: Start: 04-10-2022 End: 04-10-2022 Patient encounter procedure [facility] Start: 02-16-2022 End: 02-16-2022 Patient encounter procedure [facility] Start: 12-22-2021 Chart abstracting Kade contreras MD Work Phone: [facility] Comment on above: external labs Start: 12-22-2021 End: 12-22-2021 Patient encounter procedure [facility] Start: 11-12-2021 End: 11-12-2021 Patient encounter procedure Sayra Graf RICHARDSON-Kalie Work Phone: General Surgery Comment on above: Tortuous colon (Prim adriel Dx); Internal hemorrhoids; Diverticulosis; Dysphagia, unspecified type Start: 09-23-2021 End: 09-23-2021 Subsequent hospital visit by physician X[facility] Work Phone: Radiology Comment on above: Spondylolisthesis at L4-L5 level [M43.16] Start: 09-19-2021 Patient encounter procedure Sayra Graf RICHARDSON-Kalie Work Phone: [facility] Work Phone: Start: 09-19-2021 End: 09-19-2021 Subsequent hospital visit by physician X[facility] Work Phone: Radiology Comment on above: Chronic low back charles n without sciatica, unspecified back pain laterality [M54.50, G89.29] Start: 10-29-2020 End: 10-29-2020 Discharged Recurring [facility]-Immunizations Procedures Date Procedure Procedure Detail Performing Clinician Start: 05-03-2025 Methicillin resistan t Staphylococcus aureus screening test Dr. Kade Fry MD Work Phone: Start: 04-02-2025 Computed tomography of abdomen and pelvis with contrast Dr. Kade Fry MD Work Phone: Start: 02-12-2025 End: 02-12-[address] Kade Oscar Work Phone: Start: 12-18-2024 Radionuclide gastric emptying study Dr. Kade Fry MD Work Phone: Start: 12-05-2024 Us breast uni real t neelam with image limited Kade Fry MD Work Phone: Start: 12-05-2024 Digital breast tomosynthesis unilateral Kade Fry MD Work Phone: Start: 11-27-2024 Albumin/Globulin ratio Dr. Kade Fry MD Work Phone: Start: 11-27-2024 Endomysial antibody IgA level Dr. Kade Fry MD Work Phone: Start: 11-27-2024 Gliadin antibody, Ig A measurement Dr. Kade Fry MD Work Phone: Comment on above: Negative 0 - 19 Weak Positive 20 - 30 Moderate to Strong Positive >30 Start: 11-27-2024 Gliadin antibody, Ig G measurement Dr. Kade Fry MD Work Phone: Comment on above: Negative 0 - 19 Weak Positive 20 - 30 Moderate to Strong Positive >30 Start: 11-27-[address] M [address] Dr. Kade Fry MD Work Phone: Start: 11-27-2024 Intrinsic factor ant ibody measurement Dr. Kade Fry MD Work Phone: Comment on above: Performed at: [address] [id number] Director: Eliazar Posadas PhD, Phone: [phone] at: [employer] [facility] [address] [id number] Director: Praveen Khan MD, Phone: [phone] Start: 11-13-2024 Screening digital br east tomosynthesis bi Kade Fry MD Work Phone: Start: 10-16-2024 Injection 1 tendon sheath/ligament aponeurosis Manoj Gamino MD Work Phone: Start: 10-03-2024 Measurement of renal function Dr. Kade Fry MD Work Phone: Comment on above: GFR Calc Start: 09-21-2024 Adult depression scr eening assessment Kade Fry MD Work Phone: Start: 09-14-2024 Lipid 1995 panel - S fabiano or Plasma Kade Fry MD Work Phone: Start: 11-12-2023 Screening mammograph y bi 2-view breast inc cad Ena Aguiar PA-C Work Phone: Start: 09-20-2023 Lipid 1995 panel - S fabiano or Plasma Kade Fry MD Work Phone: Start: 08-24-2023 Radex hand minimum 3 views Yonas Cisse MD Work Phone: Start: 11-06-2022 End: 11-06-2022 Mammography Ena Jade Work Phone: Start: 09-21-2022 Hemoglobin A1c/Hemoglobin.total in Blood Ena Aguiar PA-C Work Phone: Start: 09-10-2022 Lipid 1996 panel - S fabiano or Plasma Kade Fry MD Work Phone: Start: 04-10-2022 Radiologic examinati on of knee Start: 10-29-2021 Colonoscopy Sayra toribio PA-C Work Phone: Start: 10-07-2021 Mammography Sayra toribio PA-C Work Phone: Start: 09-23-2021 Radex spine lumbosac ral 2/3 views Kade Fry MD Work Phone: Start: 09-19-2021 Radex spine lumbosac ral minimum 4 views Kade Fry MD Work Phone: Plan of Treatment Date Care Activity Detail Author Start: 08-24-2033 Urine microalbumin profile DTaP,Tdap,Td Vaccine (2 - Td or Tdap) [facility] Start: 09-14-2029 Lipid panel Lipid Screening [facility] Start: 09-20-2028 Lipid panel Lipid Screening [facility] Start: 02-13-2028 Screening for malignant neoplasm of colon [facility] Start: 09-14-2027 Diabetes Screening Diabetes Screening [facility] Start: 09-10-2027 Lipid 1996 panel - Serum or Plasma Lipid Screening [facility] Start: 09-10-2027 LIPID SCREEN LIPID SCREEN [facility] Start: 09-20-2026 Diabetes Screening Diabetes Screening [facility] Start: 09-02-2026 LIPID SCREEN LIPID SCREEN [facility] Start: 11-13-2025 Screening for malignant neoplasm of breast Mammogram Screening [facility] Start: 09-21-2025 Annual PCP Team Chronic Disease Visit Annual PCP Team Chronic Disease Visit [facility] Start: 09-21-2025 Anxiety Screening Anxiety Screening [facility] Start: 09-21-2025 BP Controlled (<130/80) BP Controlled (<130/80) [facility] Start: 09-21-2025 Depression Screening Depression Screening [facility] Start: 09-21-2025 DIABETES SCREEN DIABETES SCREEN [facility] Start: 09-21-2025 Diabetes Screening Diabetes Screening [facility] Start: 09-21-2025 End: 09-21-2025 Patient encounter procedure [facility] [place] Comment on above: medicare wellness Start: 08-23-2025 Screening for malignant neoplasm of colon Colorectal Cancer Screening [facility] Comment on above: Postponed from 1999 (Declined at t his time) Start: 07-03-2025 End: 07-03-2025 Patient encounter procedure Mammogram Comment on above: Dx: Abnormal mammogram [R92.8] Start: 06-12-2025 End: 06-12-2025 Patient encounter procedure Mammogram Comment on above: Dx: Abnormal mammogram [R92.8] Start: 06-06-2025 End: 01-04-2026 MG Breast - right Diagnostic for implant LEIGH DIAGNOSTIC RIGHT Radiology Routine Abnormal mammogram Expected: 06/06/2025, Expires: 01/04/2026 [facility] Work Phone: Comment on above: Expected: 06/06/2025, Expires: Start: 05-03-2025 Methicillin resistant Staphylococcus aureus screening test [facility] Start: 05-03-2025 Nasal Screen MRSA/MSSA Nasal Screen MRSA/MSSA [facility] Start: 04-23-2025 Influenza vaccination Influenza Vaccine (#1) [facility] Start: 04-02-2025 Computed tomography of abdomen and pelvis with contrast Abdomen/Pelvis WITH Contrast [facility] Start: 04-02-2025 CT Abdomen and Pelvis W contrast IV [facility] Start: 02-12-2025 Colonoscopy DIAGNOSTIC COLONOSCOPY [facility] Start: 02-12-2025 Colonoscopy flx dx w/collj spec when pfrmd DIAGNOSTIC COLONOSCOPY [facility] Start: 02-12-2025 Egd transoral biopsy single/multiple EGD BIOPSY SINGLE/MULTIPLE [facility] Start: 02-12-2025 Patient discharge [facility] Start: 12-08-2024 Covid-19 Vaccine () Covid-19 Vaccine () [facility] Comment on above: Postponed from 08/04/2024 (Postponed - N ot Clinically Indicated) Start: 12-08-2024 Covid-19 Vaccine (6 - Pfizer risk ) Covid-19 Vaccine (6 - Pfizer risk ) [facility] Start: 12-05-2024 End: 12-05-2024 Patient encounter procedure Mammogram Comment on above: right breast diag mamm and us cb per ym Comp- RT CB Start: 11-27-2024 End: 11-27-2024 Patient encounter procedure 11/27/2024 2:30 PM EDT Office Visit Orthopaedics [address] [place] [address] Manoj Gamino MD [address] [place] [address] folllow up for results Orthopaedics Comment on above: folllow up for results Start: 11-23-2024 End: 11-23-2024 Patient encounter procedure Podiatry Comment on above: 3 wk follow up Start: 11-13-2024 End: 11-13-2024 Patient encounter procedure 11/13/2024 10:10 AM EDT Appointment Mammogram [address] [place] [address] Encounter for screening mammogram for breast cancer [Z12.31] Mammogram Comment on above: Encounter for screening mammogram for br east cancer [Z12.31] Start: 11-11-2024 Screening for malignant neoplasm of breast Mammogram Screening [facility] Start: 10-31-2024 End: 10-31-2024 Patient encounter procedure 10/31/2024 10:45 AM EDT Office Visit Podiatry [address] [place] [address] Chetan Bhagat [address] [address] Remove 3 toenails -- make appt 45 min per nurse. Podiatry Comment on above: Remove 3 toenails -- make appt 45 min pe r nurse. Start: 10-17-2024 End: 10-17-2024 Patient encounter procedure 10/17/2024 10:00 AM EST Office Visit Vasculary Surgery [address] [address] : Pain in toes of both feet [M79.674, M79.675]; Onychodystrophy [L60.3]; Diminished pulses in lower extremity [R09.89] Vasculary Surgery Comment on above: : Pain in toes of both feet [M79.674, M7 9.675]; Onychodystrophy [L60.3]; Diminished pulses in lower extremity [R09.89] Start: 10-16-2024 End: 10-16-2024 Patient encounter procedure 10/16/2024 10:45 AM EST Office Visit Podiatry [address] [place] [address] Chetan Bhagat [address] [address] Pain in toes of both feet [M79.674, M79.675] Podiatry Comment on above: Pain in toes of both feet [M79.674, M79. 675] Start: 10-16-2024 End: 10-16-2024 Patient encounter procedure 10/16/2024 9:15 AM EST Office Visit Orthopaedics [address] [place] [address] Manoj Gamino MD [address] [place] [address] Numbness and tingling in left hand [R20.0, R20.2]; Trigger finger of left thumb [M65.312] Orthopaedics Comment on above: Numbness and tingling in left hand [R20. 0, R20.2]; Trigger finger of left thumb [M65.312] Start: 10-06-2024 DIABETES SCREEN DIABETES SCREEN [facility] Start: 09-21-2024 Annual PCP Team Chronic Disease Visit Annual PCP Team Chronic Disease Visit [facility] Start: 09-21-2024 BP Controlled (<130/80) BP Controlled (<130/80) [facility] Start: 09-21-2024 Covid-19 Vaccine () Covid-19 Vaccine () [facility] Comment on above: Postponed from 04/23/2023 (Declined at t his time) Start: 09-21-2024 End: 09-21-2024 Patient encounter procedure 09/21/2024 8:40 AM EST Office Visit Family [facility] [place] [address] [place] [address] Kade Fry MD [address] [place] [address] Medicare Wellness [facility] Medicine [place] Comment on above: Medicare Wellness Start: 09-06-2024 Screening for malignant neoplasm of colon [facility] [facility] Comment on above: Postponed from 1999 (Declined at t his time) Start: 08-11-2024 End: 11-10-2024 CBC W Auto Differential panel - Blood COMPLETE BLOOD COUNT AND DIFFERENTIAL Lab Routine Cassidy's thyroiditis Medication management Expected: 08/11/2024, Expires: 11/10/2024 [facility] Comment on above: Expected: 08/11/2024, Expires: Start: 08-11-2024 End: 11-10-2024 Cobalamin (Vitamin B12) [Mass/volume] in Serum or Plasma VITAMIN B12 Lab Routine GERD without esophagitis Medication management Expected: 08/11/2024, Expires: 11/10/2024 [facility] Work Phone: Comment on above: Expected: 08/11/2024, Expires: Start: 08-11-2024 End: 11-10-2024 Comprehensive metabolic 2000 panel - Serum or Plasma COMPREHENSIVE METABOLIC PANEL Lab Routine Essential hypertension Mixed hyperlipidemia Elevated blood sugar Expected: 08/11/2024, Expires: 11/10/2024 [facility] Comment on above: Expected: 08/11/2024, Expires: Start: 08-11-2024 End: 11-10-2024 Hemoglobin A1c in Blood HEMOGLOBIN A1C Lab Routine Elevated blood sugar Expected: 08/11/2024, Expires: 11/10/2024 [facility] Comment on above: Expected: 08/11/2024, Expires: Start: 08-11-2024 End: 11-10-2024 LIPID PANEL, NONFASTING LIPID PANEL, NONFASTING Lab Routine Essential hypertension Mixed hyperlipidemia Expected: 08/11/2024, Expires: 11/10/2024 [facility] Comment on above: Expected: 08/11/2024, Expires: Start: 08-11-2024 End: 11-10-2024 Magnesium [Mass/volume] in Serum or Plasma MAGNESIUM Lab Routine GERD without esophagitis Medication management Expected: 08/11/2024, Expires: 11/10/2024 [facility] Comment on above: Expected: 08/11/2024, Expires: Start: 08-11-2024 End: 11-10-2024 Thyrotropin [Units/volume] in Serum or Plasma THYROID STIMULATING HORMONE Lab Routine Cassidy's thyroiditis Expected: 08/11/2024, Expires: 11/10/2024 [facility] Comment on above: Expected: 08/11/2024, Expires: Start: 08-11-2024 End: 11-10-2024 Urinalysis complete panel - Urine URINALYSIS, WITH MICROSCOPIC Lab Routine Essential hypertension Mixed hyperlipidemia Expected: 08/11/2024, Expires: 11/10/2024 [facility] Comment on above: Expected: 08/11/2024, Expires: Start: 04-23-2024 Covid-19 Vaccine () Covid-19 Vaccine () [facility] Start: 04-23-2024 Covid-19 Vaccine () Covid-19 Vaccine () [facility] Start: 04-23-2024 Influenza vaccination Influenza Vaccine (#1) [facility] Start: 11-07-2023 Mammography [facility] Start: 11-07-2023 Screening for malignant neoplasm of breast Mammogram Screening [facility] Start: 09-21-2023 ANNUAL PCP TEAM CHRONIC DISEASE VISIT ANNUAL PCP TEAM CHRONIC DISEASE VISIT [facility] Start: 09-21-2023 BP CONTROLLED (<130/80) BP CONTROLLED (<130/80) [facility] Start: 08-23-2023 Behavioral Health Screening Behavioral Health Screening [facility] Start: 04-23-2023 Covid-19 Vaccine () Covid-19 Vaccine () [facility] Start: 04-23-2023 Influenza vaccination Influenza Vaccine (#1) [facility] Start: 11-12-2022 BP CONTROLLED (<130/80) BP CONTROLLED (<130/80) [facility] Start: 10-29-2022 Colonoscopy COLONOSCOPY [facility] Start: 10-29-2022 COLORECTAL CANCER SCREENING COLORECTAL CANCER SCREENING [facility] Start: 10-29-2022 Screening for malignant neoplasm of colon Colonoscopy [facility] Start: 10-07-2022 Mammography MAMMOGRAM [facility] Start: 09-19-2022 ANNUAL PCP TEAM CHRONIC DISEASE VISIT ANNUAL PCP TEAM CHRONIC DISEASE VISIT [facility] Start: 09-19-2022 BP CONTROLLED (<130/80) BP CONTROLLED (<130/80) [facility] Start: 09-19-2022 Urine microalbumin profile DTAP,TDAP,TD (1 - Tdap) [facility] Comment on above: Postponed from 1973 (Insurance Cov erage) Start: 09-09-2022 End: 11-09-2022 CBC W Auto Differential panel - Blood CBC + DIFF Lab Routine Essential hypertension Mixed hyperlipidemia Cassidy's thyroiditis Medication management Expected: 09/09/2022, Expires: 11/09/2022 [facility] Work Phone: Comment on above: Expected: 09/09/2022, Expires: 3 Start: 09-09-2022 End: 11-09-2022 Comprehensive metabolic 2000 panel - Serum or Plasma COMP METABOLIC PANEL Lab Routine Essential hypertension Expected: 09/09/2022, Expires: 11/09/2022 [facility] Work Phone: Comment on above: Expected: 09/09/2022, Expires: 3 Start: 09-09-2022 End: 11-09-2022 Lipid 1996 panel - Serum or Plasma LIPID PANEL BASIC Lab Routine Mixed hyperlipidemia Expected: 09/09/2022, Expires: 11/09/2022 [facility] Work Phone: Comment on above: Expected: 09/09/2022, Expires: 3 Start: 09-09-2022 End: 11-09-2022 Magnesium [Mass/volume] in Serum or Plasma MAGNESIUM BLD Lab Routine Medication management Expected: 09/09/2022, Expires: 11/09/2022 [facility] Work Phone: Comment on above: Expected: 09/09/2022, Expires: 3 Start: 09-09-2022 End: 11-09-2022 Thyrotropin [Units/volume] in Serum or Plasma TSH BLD Lab Routine Cassidy's thyroiditis Expected: 09/09/2022, Expires: 11/09/2022 [facility] Work Phone: Comment on above: Expected: 09/09/2022, Expires: 3 Start: 09-09-2022 End: 11-09-2022 Thyroxine (T4) free [Mass/volume] in Serum or Plasma T4 FREE/FREE THYROX Lab Routine Cassidy's thyroiditis Expected: 09/09/2022, Expires: 11/09/2022 [facility] Work Phone: Comment on above: Expected: 09/09/2022, Expires: 3 Start: 09-09-2022 End: 11-09-2022 Urinalysis complete panel - Urine URINALYSIS, WITH MICROSCOPIC Lab Routine Essential hypertension Expected: 09/09/2022, Expires: 11/09/2022 [facility] Work Phone: Comment on above: Expected: 09/09/2022, Expires: 3 Start: 08-23-2022 ADVANCE DIRECTIVE DISCUSSION ADVANCE DIRECTIVE DISCUSSION [facility] Start: 08-23-2022 DEPRESSION ASSESSMENT DEPRESSION ASSESSMENT [facility] Start: 07-13-2022 Covid-19 Vaccine (5 - Pfizer risk series) Covid-19 Vaccine (5 - Pfizer risk series) [facility] Start: 10-03-2021 COVID-19 VACCINE (4 - Booster for Pfizer series) COVID-19 VACCINE (4 - Booster for Pfizer series) [facility] Start: 08-23-2021 ADVANCE DIRECTIVE DISCUSSION ADVANCE DIRECTIVE DISCUSSION [facility] Start: 08-23-2021 DEPRESSION ASSESSMENT DEPRESSION ASSESSMENT [facility] Start: 2014 RSV Vaccine (1 - 1-dose 60+ series) RSV Vaccine (1 - 1-dose 60+ series) [facility] Start: 2014 RSV Vaccine (1 - Risk 60-74 years 1-dose series) RSV Vaccine (1 - Risk 60-74 years 1-dose series) [facility] Start: 1999 COLOGUARD (FIT-DNA) COLOGUARD (FIT-DNA) [facility] Start: [address] COLONOGRAPHY [facility] Start: 1999 FECAL OCCULT BLOOD FECAL OCCULT BLOOD [facility] Start: 1999 Screening for malignant neoplasm of colon [facility] Start: 1999 SIGMOIDOSCOPY SIGMOIDOSCOPY [facility] Start: 1973 Urine microalbumin profile [facility] Start: 1972 Anxiety Screening Anxiety Screening [facility] Start: 1972 Depression Screening Depression Screening [facility] End: 11-04-2024 BD DXA TRABECULAR BONE SCORE (TBS) BD DXA TRABECULAR BONE SCORE (TBS) Radiology Routine Asymptomatic menopause 1 Occurrences starting 10/06/2023 until 11/04/2024 [facility] Work Phone: Comment on above: 1 Occurrences starting 10/06/2023 until 11/04/2024 CT Abdomen and Pelvi s W contrast IV [facility] End: 10-20-2025 DBT Breast - bilateral screening LEIGH SCREENING W IRISH Radiology Routine Encounter for screening mammogram for breast cancer 1 Occurrences starting 09/21/2024 until 10/20/2025 [facility] Work Phone: Comment on above: 1 Occurrences starting 09/21/2024 until 10/20/2025 End: 11-04-2024 DXA Skeletal system.axial Views for bone density DXA-AXIAL SKELETON Radiology Routine Asymptomatic menopause 1 Occurrences starting 10/06/2023 until 11/04/2024 [facility] Work Phone: Comment on above: 1 Occurrences starting 10/06/2023 until 11/04/2024 End: 10-16-2025 EMG(NEURO/NI) EMG(NEURO/NI) EMG Routine Numbness and tingling in left hand Carpal tunnel syndrome of left wrist 1 Occurrences starting 10/16/2024 until 10/16/2025 [facility] Work Phone: Comment on above: 1 Occurrences starting 10/16/2024 until 10/16/2025 Folate [Moles/volume ] in Serum or Plasma [facility] Hemoglobin A1c/Hemoglobin.total in Blood HEMOGLOBIN A1C (POC) Lab Routine Elevated glucose Ordered: 09/21/2022 [facility] Work Phone: Comment on above: Ordered: 09/21/2022 End: 10-21-2023 LEIGH SCREENING LEIGH SCREENING Radiology Routine Encounter for screening mammogram for breast cancer 1 Occurrences starting 09/21/2022 until 10/21/2023 [facility] Work Phone: Comment on above: 1 Occurrences starting 09/21/2022 until 10/21/2023 End: 12-13-2025 MG Breast - right Diagnostic for implant LEIGH DIAGNOSTIC RIGHT Radiology Routine Abnormal mammogram 1 Occurrences starting 11/13/2024 until 12/13/2025 [facility] Work Phone: Comment on above: 1 Occurrences starting 11/13/2024 until 12/13/2025 Patient referral [facility] Work Phone: Radionuclide gastric emptying study [facility] End: 12-13-2025 US Breast - right limited US BREAST LTD RIGHT Radiology Routine Abnormal mammogram 1 Occurrences starting 11/13/2024 until 12/13/2025 [facility] Comment on above: 1 Occurrences starting 11/13/2024 until 12/13/2025 End: 01-04-2026 US Breast - right limited US BREAST LTD RIGHT Radiology Routine Abnormal mammogram 1 Occurrences starting 12/05/2024 until 01/04/2026 [facility] Comment on above: 1 Occurrences starting 12/05/2024 until 01/04/2026 End: 10-16-2025 US.doppler Extremity arteries - bilateral for physiologic artery study PVR ANK [facility] Routine Pain in toes of both feet Onychodystrophy Diminished pulses in lower extremity 1 Occurrences starting 10/16/2024 until 10/16/2025 [facility] Work Phone: Comment on above: 1 Occurrences starting 10/16/2024 until 10/16/2025 [facility] Immunizations Immunization Date Immunization Notes Care Provider [facility] 06-09-2024 influenza, high dose seasonal, preservative-free Kade Fry MD Work Phone: [facility] 06-09-2024 respiratory syncytia l virus (RSV) vaccine, bivalent (ABRYSVO) Kade Fry MD Work Phone: [facility] 06-09-2024 influenza virus vacc ine, unspecified formulation Ree Ng MA [facility] 08-24-2023 tetanus toxoid, redu angelic diphtheria toxoid, and acellular pertussis vaccine, adsorbed Kade Fry MD Work Phone: [facility] 06-21-2023 influenza (aIIV4) vaccine, age 65+ yr, quadrivalent, PF (FLUAD QUAD) Kade Fry MD Work Phone: [facility] Work Phone: 06-21-2023 influenza virus vacc ine, unspecified formulation Feliciano Leahy MA [facility] 05-18-2022 influenza (aIIV4) vaccine, age 65+ yr, quadrivalent, PF (FLUAD QUAD) Kade Fry MD Work Phone: [facility] Work Phone: 05-18-2022 influenza virus vacc ine, unspecified formulation Kade Fry MD Work Phone: [facility] 05-01-2021 influenza (HD-IIV4) vaccine, age 65+ yr, high dose, quadrivalent, PF (FLUZONE HIGH-DOSE) Kade Fry MD Work Phone: [facility] Work Phone: 05-01-2021 influenza, high dose seasonal, preservative-free Sayra Katey PA-C Work Phone: [facility] 04-23-2021 zoster vaccine recombinant Sayra Katey PA-C Work Phone: [facility] 01-21-2021 zoster vaccine recombinant Sayra Katey PA-C Work Phone: [facility] 11-19-2020 Covid (Pfizer) [facility] 10-29-2020 Covid (Pfizer) [facility] 09-18-2020 pneumococcal polysaccharide vaccine, 23 valent Sayra Katey PA-C Work Phone: [facility] 05-25-2020 influenza, high-dose , quadrivalent vaccine (FLUZONE HIGH DOSE QUADRIVALENT) Sayra Katey PA-C Work Phone: [facility] 08-28-2019 pneumococcal conjuga te vaccine, 13 valent Sayra Katey PA-C Work Phone: [facility] Work Phone: 06-17-2019 influenza, high dose seasonal, preservative-free Sayra Zachary PA-C Work Phone: [facility] 05-02-2018 influenza, injectabl e, quadrivalent, contains preservative Sayra Ktaey PA-C Work Phone: [facility] 07-06-2017 influenza, seasonal, injectable Sayra Katey PA-C Work Phone: [facility] 08-12-2016 influenza, seasonal, injectable Sayra Del Toro PA-C Work Phone: [facility] 05-23-2014 influenza, seasonal, injectable Sayrasilvana eDl Toro PA-C Work Phone: [facility] Work Phone: 05-23-2012 influenza virus vacc ine, unspecified formulation Sayra Del Toro PA-C Work Phone: [facility] Payers Date Payer Category Payer Self-pay [id number] 2021 Medicare AET[employer] MEDICARE A ETNA MEDICARE PPO [id number] 2021-Present [phone] [address] [place] [address] PP [id number] 2021 Medicare AET[employer] MEDICARE A ETNA MEDICARE PPO [id number] 2021-Present [phone] [address] [place] [address] PP [id number] 2021 Medicare (Managed Care) [place] [id number] 2021 Private Health Insurance [facility] [id number] 2016 Private Health Insurance [id number] 2016 Unknown [id number] Medicare [id number] Unknown [id number]. 462 Unknown [id number] 2.16.840.1.215652.3.579.2. 462 Unknown [id number] 2.16.840.1.123927.3.579.2. 462 Unknown [id number] 2.16.840.1.887051.3.579.2. 462 Unknown [id number] 2.16.840.1.468181.3.579.2. 462 Unknown [id number] 2.16.840.1.653472.3.579.2. 462 Unknown [id number] 2.16.840.1.080079.3.579.2. 462 Unknown [id number] 2.16.840.1.199571.3.579.2. 462 Unknown [id number] 2.16.840.1.549476.3.579.2. 462 Unknown [id number] 2.16.840.1.270928.3.579.2. 462 Unknown [id number] 2.16.840.1.895831.3.579.2. 462 Unknown [id number] 2.16.840.1.283093.3.579.2. 462 Unknown [id number] 2.16.840.1.440314.3.579.2. 462 Unknown [id number] 2.16.840.1.123664.3.579.2. 462 Unknown [id number] 2.16.840.1.308545.3.579.2. 462 Unknown [id number] 2..840.1.157288.3.579.2. 462 Unknown [id number] 2..840.1.962545.3.579.2. 462 Unknown [id number] 2..840.1.148879.3.579.2. 462 Social History Date Type Detail Facility Start: 05-26-2016 End: 05-26-2016 Tobacco smoking status NHIS Unknown if ever smoked [facility] Start: 1955 Sex Assigned At Female [facility] Start: 06-18-2022 End: 05-14-2025 Tobacco smoking status NHIS Never smoked tobacco [facility] Start: 11-12-2021 End: 11-27-2024 Alcohol intake Current non-drinker of alcohol (finding) [facility] Start: 1955 Sex Assigned At Not on file [facility] Start: 08-20-2021 End: 06-18-2022 Exposure to SARS-CoV-2 (event) Not sure [facility] Start: 05-21-2011 End: 06-18-2022 Tobacco use and exposure Smokeless tobacco non-user [facility] Start: 09-21-2022 End: 08-26-2023 History of Social function [facility] Work Phone: Start: 09-21-2022 End: 08-26-2023 Tobacco use panel [facility] Work Phone: Start: 07-24-2012 Adult Depression Screening Assessment 0 [facility] Work Phone: Start: 11-18-2024 End: 11-30-2024 Sex Female (finding) [facility] NEGATED: Highlighted row Not [facility] Goals Date Patient Goal Desired Activity /State Functional Status Date Assessment Result Facility 11-12-2014 Are you deaf, or do you have serious difficulty hearing No 11/12/2014 4:53 PM Carole Jordan RN No [facility] 11-12-2014 Are you blind, or do you have serious difficulty seeing, even when wearing glasses No 11/12/2014 4:53 PM Carole Jordan RN [facility] 11-12-2014 Do you have serious difficulty walking or climbing stairs No 11/12/2014 4:53 PM EDT Carole Perez RN No [facility] 11-12-2014 Do you have difficul ty dressing or bathing No 11/12/2014 4:53 PM EDT Carole Perez RN No [facility] 11-12-2014 Because of a physica l, mental, or emotional condition, do you have difficulty doing errands alone such as visiting a physician's office or shopping No 11/12/2014 4:53 PM EDT Carole Perez RN No [facility] Mental Status Date Assessment Result Facility 02-12-2025 Cognitive function Voice/Name;To [facility] Work Phone: 11-12-2014 Because of a physica l, mental, or emotional condition, do you have serious difficulty concentrating, remembering, or making decisions No 11/12/2014 4:53 PM EDT Carole Perez RN No [facility] Clinical Notes 08-03-2012 to 05-07-2025 Nano Richard MA - 05/07/2025 12:59 PM Ree Cole MA - 05/04/2025 12:37 PM AMYTNano Richard MA - 02/12/2025 1:52 PM EDT Note Date & Type Note Facility 05-07-2025 Note HNO ID: [id number] Author: NANO RICHARD MA Service: ? Author Type: Ribbon Inker Type: Progress Notes Filed: 05/07/2025 13:00 Note Text: Scan on 05/04/2025 4:35 PM by Jose Carlos Phelps PA-C: MRSA screening [facility] 05-07-2025 History of Present illness Narrative Scan on 05/04/2025 4:35 PM by Jose Carlos Phelps PA-C: MRSA screening Scan on 05/03/2025 8:17 PM by Jose Carlos Phelps PA-C: Grady documented in this encounter [facility] 05-04-2025 Note HNO ID: [id number] Author: REE NG MA Service: ? Author Type: Ribbon Inker Type: Progress Notes Filed: 05/07/2025 13:00 Note Text: Scan on 05/03/2025 8:17 PM by Provider, External, PA-C: [facility] 04-03-2025 Note HNO ID: [id number] Author: NANO RICHARD MA Service: ? Author Type: Ribbon Inker Type: Progress Notes Filed: 04/03/2025 16:31 Note Text: Outside imaging CT Abd/Pelv. Nano Richard MA View External Imaging - Abdomen Pelvis [ID [id number]] [facility] 04-03-2025 Radiology Diagnostic study note [facility] Imaging Services [address], [place] [address] Abdomen/Pelvis WITH Contrast MR#: [id number] Acct: [id number] Name: ELISHA GODFREY Rep #: [id number] : 1955 F 69 From: Froylan Javier MD PCP: Dr. Kade Fry MD Status: REG CLI Study:Abdomen/Pelvis WITH Contrast Date of Ex am: 04/02/25 Exam# [id number] Ordering Dr: Stew Christianson [employer]-C PROCEDURE: ABDOMEN/PELVIS WITH CONTRAST 04/02/2025 REASON FOR EXAM: COLON STENOSIS SEEN W/COLONOSCOPY Intermittent left lower quadrant pain. TECHNIQUE: ABDOMEN/PELVIS WITH CONTRAST Coronal and Sagittal reconstruction series were provided. CONTRAST: Isovue-300 VOLUME: 100 mL One or more dose reduction techniques were used (e.g., Automated exposure control, adjustment of the mA and/or kV according to patient size, use of iterative reconstruction technique. RADIATION DOSE SUMMARY: CTDlvol: 16.1 mGy DLP: 1220.77 mGycm COMPARISON: None FINDINGS: Lung bases: The lung bases are clear. No significant coronary artery calcification seen. Liver: Diffuse fatty infiltration. Gallbladder: Solitary gallstone measuring 1.7 cm. Spleen: Normal size. Pancreas: Normal size without evidence of mass surrounding inflammation or ductal dilation. Adrenals: Unremarkable. Kidneys: Normal renal sizes. No hydronephrosis. Bladder: Mildly distended urinary bladder. Reproductive Organs: Prior hysterectomy. Adnexal regions are unremarkable. Bowel: No evidence of bowel obstruction. Sigmoid diverticulosis. Appendix: The appendix is not identified. There is no inflammatory process identified in the right lower quadrant to suggest appendicitis. Lymph nodes: Unremarkable. Vasculature: Mild diffuse atherosclerotic calcifications are noted. Peritoneum / Retroperitoneum: Left-sided spigelian hernia containing fat and nondilated small bowel loops. Bones: Degenerative changes of the spine. Grade 1 anterior listhesis of L4 on L5. CT/Abdomen/Pelvis WITH Contrast IMPRESSION: Solitary gallstone. Left-sided spigelian hernia containing fat and nondilated small bowel loops. Sigmoid diverticulosis. Reading Location: [place] [id number] CC: ANY Christianson; Dr. 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 Author Type: Ribbon Inker Type: Progress Notes Filed: 03/28/2025 09:00 Note Text: Outside labs, Non-[facility] ordered. Nano Richard MA View External Labs - CBCD [ID [id number]] View External Labs - CMP [ID [id number]] [facility] 02-12-2025 Note HNO ID: [id number] Author: NANO RICHARD MA Service: ? Author Type: Ribbon Inker Type: Progress Notes Filed: 02/21/2025 10:59 Note Text: View External Procedures - Colonoscopy report [ID [id number]] View External Procedures - EGD report [ID [id number]] GI HANDP Scan on 02/12/2025 9:49 AM by Provider, External, PASandraC: H\EANDE\P Gastric Study: View External Imaging - Gastric Emptying Study [ID [id number]] [facility] 02-12-2025 History of Present illness Narrative View External Procedures - Colonoscopy report [ID [id number]] View External Procedures - EGD report [ID [id number]] GI H&P Scan on 02/12/2025 9:49 AM by Provider, EDIS Branch: H\T\P documented in this encounter [facility] 02-12-2025 Consult note [facility] 02-12-2025 Consult note Note Date/Time February 12, 2025 9:56am [facility] Medical Records Department [address] [place] [address] Pre-Anesthesia Evaluation 02/12/25 0953 MR#: [id number] Acct: [id number] Name: ELISHA GODFREY Rep #:[id number] : 1955 69 From: Jimmy Oscar PCP: Dr. Kade Fry MD Status:REG SDC Y Race: C Location: [place] [address] ASA Classification* ASA Classification ASA Classification: 2 Assessment & Plan Anesthesia* Anesthesia Assessment Anesthesia Assessment: Discussed sedation and/or anesthesia options, risks, benefits, and alternatives with patient/parents/legal guardian/POA. Questions invited. The patient/parents/legal guardian/POA seems to understand and agrees to proceedwith anesthesia plan. Reviewed the physical assessment, medical history, allergy history and patient home medications list prior to surgery/procedure/anesthetic and documented any changes. Performed airway and anesthesia risk assessments. Anesthesia Type Anesthesia Type: MAC History Source History Obtained from:: Patient Anesthesia Focused Assessment* Temperature: 96.9 F Pulse Rate: 63 Blood Pressure: 151/81 Respiratory Rate: 16 Pulse Ox: 99 Oxygen Delivery Method: Room Air Airway Assessment Mouth opens: >3 cm Mallampati Score: II Teeth Condition: Intact Neck Range of motion (ROM): Full ROM Labs Anesthesia Preop lab: CBC WBC 3.4 K/mm3 (4.4-11.0) L 12/26/24 08:30 12/26/24 RBC 3.73 M/mm3 (4.2-5.4) L 12/26/24 08:30 12/26/24 Hgb 13.2 g/dL (12.0-15.0) 12/26/24 08:12/26/24 Hct 38.7 % (37-47) 12/26/24 08:30 12/26/24 Plt Count 198 K/mm3 (150-450) 12/26/24 08:30 12/26/24 CHEMISTRY Potassium 4.3 mmol/L (3.3-5.1) 12/26/24 08:30 12/26/24 Sodium 141 mmol/L (133-145) 12/26/24 08:30 12/26/24 BUN 18 mg/dL (4-19) 12/26/24 08:30 12/26/24 Creatinine 0.80 mg/dL (0.70-1.20) 12/26/24 08:30 12/26/24 Glucose 110 mg/dL (70-99) H 12/26/24 08:30 12/26/24 TSH 2.340 uIU/mL (0.300-4.200) 11/27/24 09:42 03/16 COAG Pre-Assessment Diagnosis/Proposed Procedure Planned Operative Procedure(s): EGD, COLONOSCOPY Anesthesia History Anesthesia History - workers compensation claims examiner: Anesthesia History - workers compensation claims examiner Hx Hospitalization No 02/08/25 11:46 Any Problems With Anesthesia Yes: DIFFICULT TO WAKE 02/08/25 11:46 Cholinesterase deficiency No 02/08/25 11:46 You/Your Family Experience No 02/08/25 11:46 fever (hyperthermia) with Relationship Recent Exposure to Contagious No 02/12/25 09:26 Disease Does patient have nerve No 02/08/25 11:46 stimulator Patient instructed to have device shut off --Does patient have Pacemaker No 02/12/25 09:26 or ICD? When Was Last Pacemaker Check QUESTION #4 FULL TEXT: You/Your Family Experience fever (hyperthermia) with Anesthesia Last Oral Intake Last Oral intake: Last Oral Intake NPO since 05:00 02/12/25 09:26 Meds taken in AM with sips of No 02/12/25 09:26 water? Meds patient instructed to take am of surgery PONV PONV - workers compensation claims examiner: PONV - workers compensation claims examiner Female Yes 02/08/25 11:46 HX of Motion Sickness No 02/08/25 11:46 HX of N/V After Surgery No 02/08/25 11:46 Non-Smoker Yes 02/08/25 11:46 Duration of Surgery greater No 02/08/25 11:46 than 60 minutes Number of Risk Factors 2 02/08/25 11:46 PONV Score Moderate Risk 02/08/25 11:46 Height & Weight Height & Weight: Anesthesia: Height & Weight Height 5 ft 1 in 02/12/25 09:26 Weight: 86.7 kg 02/12/25 09:26 Body Mass Index (BMI) 36.1 02/12/25 09:26 Respiratory Assessment Respiratory Assessment - workers compensation claims examiner: Respiratory Tract Infection Hx - workers compensation claims examiner Hx Respiratory Tract Infection No 02/08/25 11:46 STOP Sleep Apnea STOP Sleep Apnea - workers compensation claims examiner: STOP Sleep Apnea - workers compensation claims examiner Hx Hypertension Yes: PER PT, CONTROLLED ON 02/08/25 11:46 MED Hx Sleep Apnea No 02/08/25 11:46 CPAP BIPAP Do you snore loudly (louder Yes 02/08/25 11:46 than talking or can be heard Do you often feel tired/ No 02/08/25 11:46 fatigued/ sleepy during daytime? Has anyone observed you stop No 02/08/25 11:46 breathing during sleep? STOP Results Positive 02/08/25 11:46 QUESTION #5 FULL TEXT : Do you snore loudly (louder than talking or can be heard through closed doors)? 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 - workers compensation claims examiner: Tobacco Use History - workers compensation claims examiner Tobacco Use Smoking Status Never smoker 02/08/25 11:46 Hx Tobacco Use No 02/08/25 11:46 Years Smoking Packs Smoked per Day Smoking Cessation Date was within the last 15 years Hx Smoking Cessation Date Hx Smoking Cessation Counseling Hematologic Medial History Hematologic Hx - workers compensation claims examiner: Hematologic Medical Hx - cradle slide maker Hx of Blood Transfusion No 02/08/25 11:46 Hx of Transfusion in last 3 No 02/08/25 11:46 Months Date of Last Transfusion (if within last 3 months) Ever experience any problems No 02/08/25 11:46 with transfusion(s)? Specify any problems Hx of Preganancy in last 3 No 02/08/25 11:46 Months Nurse Filling Out Transfusion MGRIFFITH 02/08/25 11:46 & Questions: Date: 02/08/25 02/08/25 11:46 Time: 11:48 02/08/25 11:46 Patient unable to answer at this time (ie. confused, unrespo /Reproduction History /Reproductive History - workers compensation claims examiner: /Reproductive Hx- workers compensation claims examiner Hx Now No 02/08/25 11:46 Gestational Age (in weeks): EDC: Hx Hx Para Hx Section SAB No 02/08/25 11:46 Active Medications Active Medications: Current Medications Generic Name Dose Route Start Last Admin Trade Name Freq PRN Reason Stop Dose Admin Lactated Ringer's 1,000 mls @ 15 mls/hr 02/12/25 09:15 02/12/25 09:25 IV 15 mls/hr .Q48H KIRIT Administration PFSH Medical History Wears glasses Rheumatoid arthritis TIA (transient ischemic attack) History of hiatal hernia Difficulty swallowing Non-smoker Shortness of breath on exertion Leg cramps History of edema GERD (gastroesophageal reflux disease) Osteopenia Osteoarthritis Hypertension Problems with hearing Migraines Cataracts, bilateral History of back problems Arthritis Seasonal allergies Home Medications ?Medication ?Instructions ?Recorded ?Last Taken ?Type Ibuprofen [Motrin] 800 mg PO TID PRN PRN Pain 1 Unknown History aspirin 81 mg tablet,delayed 81 mg PO MOWEFR 05/26/16 02/07/25 History release calcium carbonate (Oyster Shell 500 mg PO BID 05/26/16 02/11/25 History Calcium 500) cholecalciferol (vitamin D3) 25 2,000 unit PO BID 12/0602/11/25 History mcg (1,000 unit) tablet (Vitamin D3) fexofenadine-pseudoephedrine ER 1 ea PO DAILY 05/26/16 02/11/25 History 180 mg-240 mg tablet,ext.release 24 hr (Carmelita-D 24 Hour) omega-3 fatty acids-fish oil 340 1 ea PO DAILY 6 02/06/25 History mg-1,000 mg capsule (Fish Oil) ramipril 5 mg capsule 5 mg PO DAILY 05/26/1602/11 History vitamin B complex 1 ea PO DAILY 05/26/1602/11 History ascorbic acid (vitamin C) 1,000 mg 1 g PO QDAY 5 02/11/25 History capsule methotrexate sodium 2.5 mg tablet 20 mg PO SA 11/21/24 02/03/25 History pantoprazole 40 mg tablet,delayed 40 mg PO QDAY 02/11/25 History release folic acid 1 mg tablet 2 mg PO QDAY 11/27/24 History Allergy/AdvReac Type Severity Reaction Status Date / Time lansoprazole (From Prevacid) Allergy Hives Verified 02/12/25 09:25 latex Allergy Unknown Verified 02/12/25 09:25 alendronate sodium (From AdvReac Unknown heartburn Verified 02/12/25 09:25 Fosamax) adhesive AdvReac Unknown Verified 02/12/25 09:25 diphenhydramine (From AdvReac FEEL Verified 02/12/25 09:25 Benadryl) WEIRD Family History Mother Arthritis Brother Arthritis Colon cancer Diabetes Heart disease Surgical History History of esophagogastroduodenoscopy (EGD) History of colonoscopy History of tubal ligation H/O: hysterectomy History of appendectomy History of tonsillectomy Social History Smoking Status: Never smoker alcohol intake: never substance use type: does not use what type of physical activity do you participate in: none Review of Systems (Anesthesia) ROS Narrative System reviewed and no additional complaints, except as documented. 02/12/2556 <Electronically signed by Jimmy Gillis MD> Date _ Jimmy Gillis MD Cosigner Signature: Date CC: ~ Signed [facility] Work Phone: [phone]) 231-230706-23-2025 History and physical note Author Darrin Lozoya [facility] Note Date/Time February 12, 2025 9:[address] [facility] Medical Records Department [address] [place] [address] History & Physical Exam 02/12/25 0941 MR#: [id number] Acct: [id number] Name: ELISHA GODFREY Rep #:[id number] : 1955 69 From: Darrin Lozoya DO PCP: Dr. Kade Fry MD Status:[facility] Location: [place] [id number] HPI - General General Date of Admission: 02/12/25 Date of Service: 02/12/25 Chief Complaint: GERD and personal history of polyps HPI Narrative ELISHA GODFREY, is a 69 F who presents for an EGD and colonoscopy. *[facility] established 4.7.25 pt reports that she is here to transfer care and to discuss scheduling for EGD and colonoscopy. Pt reports her last scopes were in 2021 and it was recommended she repeat within 1-2 years. Pt reports a burning sensation in her abdomen that comes in clusters, and is unable to identify trigger. Pt reports difficulty swallowing dry foods like bread and chicken. Pt continues with pantoprazole 40mg daily, thinks it is helpful, but not fully effective. [facility] Medical History Wears glasses Rheumatoid arthritis TIA (transient ischemic attack) History of hiatal hernia Difficulty swallowing Non-smoker Shortness of breath on exertion Leg cramps History of edema GERD (gastroesophageal reflux disease) Osteopenia Osteoarthritis Hypertension Problems with hearing Migraines Cataracts, bilateral History of back problems Arthritis Seasonal allergies Home Medications ?Medication ?Instructions ?Recorded ?Last Taken ?Type Ibuprofen [Motrin] 800 mg PO TID PRN PRN Pain 1 Unknown History aspirin 81 mg tablet,delayed 81 mg PO MOWEFR 05/26/16 02/07/25 History release calcium carbonate (Oyster Shell 500 mg PO BID 05/26/16 02/11/25 History Calcium 500) cholecalciferol (vitamin D3) 25 2,000 unit PO BID 12/0602/11/25 History mcg (1,000 unit) tablet (Vitamin D3) fexofenadine-pseudoephedrine ER 1 ea PO DAILY 05/26/16 02/11/25 History 180 mg-240 mg tablet,ext.release 24 hr (Carmelita-D 24 Hour) omega-3 fatty acids-fish oil 340 1 ea PO DAILY 6 02/06/25 History mg-1,000 mg capsule (Fish Oil) ramipril 5 mg capsule 5 mg PO DAILY 05/26/1602/11 History vitamin B complex 1 ea PO DAILY 05/26/1602/11 History ascorbic acid (vitamin C) 1,000 mg 1 g PO QDAY 5 02/11/25 History capsule methotrexate sodium 2.5 mg tablet 20 mg PO SA 11/21/24 02/03/25 History pantoprazole 40 mg tablet,delayed 40 mg PO QDAY 02/11/25 History release folic acid 1 mg tablet 2 mg PO QDAY 11/27/24 History Allergy/AdvReac Type Severity Reaction Status Date / Time lansoprazole (From Prevacid) Allergy Hives Verified 02/12/25 09:25 latex Allergy Unknown Verified 02/12/25 09:25 alendronate sodium (From AdvReac Unknown heartburn Verified 02/12/25 09:25 Fosamax) adhesive AdvReac Unknown Verified 02/12/25 09:25 diphenhydramine (From AdvReac FEEL Verified 02/12/25 09:25 Benadryl) WEIRD Family History Mother Arthritis Brother Arthritis Colon cancer Diabetes Heart disease Surgical History History of esophagogastroduodenoscopy (EGD) History of colonoscopy History of tubal ligation H/O: hysterectomy History of appendectomy History of tonsillectomy Social History Smoking Status: Never smoker alcohol intake: never substance use type: does not use what type of physical activity do you participate in: none ROS Constitutional Constitutional: Denies fatigue, fever(s), poor appetite, weight gain or weight loss Gastrointestinal Gastrointestinal: Denies belching, bloating, change in bowel habits, change in stool character, chewing difficulty, coffee ground emesis, constipation, cramping, diarrhea, dyspepsia, dysphagia, early satiety, excessive flatus, fecal incontinence, heartburn, hematemesis, hematochezia, hemorrhoids, loose stools, melena, nausea, odynophagia, rectal bleeding, tenesmus, vomiting or weight changes Vital Signs Vital Signs Vital Signs: 02/12/25 09:26 02/12/25 09:26 Temperature 96.9 F L Temperature Source Temporal Pulse Rate 63 Respiratory Rate 16 Respiratory Pattern Normal Blood Pressure 151/81 H Blood Pressure Mean 104 Blood Pressure Source Monitor Blood Pressure Position Semi-Fowlers Blood Pressure Location Left Arm Pulse Ox 99 Oxygen Delivery Method Room Air Weight Weight: 191 lb 2.252 oz Body Mass Index (BMI) 36.1 Physical Exam Const alert, oriented x3, no apparent distress and healthy appearing General Appearance: cooperative GI normal to inspection, nondistended, normoactive bowel sounds, soft to palpation, non-tender and non-distended Percussion: normal to percussion Rectal Exam: deferred Assessment & Plan Assessment/Plan (1) Personal history of colon polyps, unspecified: (2) GERD (gastroesophageal reflux disease): (3) Abdominal pain: PLAN: Assessment and Plan Assessment and Plan (1) Gastroesophageal reflux disease: Status: Acute (2) Personal history of colon polyps, unspecified: Status: Acute (3) Abdominal pain: Status: Acute Plan: Elisha is a very pleasant 69-year-old with past medical history of rheumatoid arthritis mostly involving her hands and upper extremities on methotrexate and folic acid, fibromyalgia, gastroesophageal reflux disease and intermittent left lower quadrant pain. She also has a personal history of adenomatous polyp and a family history of gastric cancer. She comes in today for initial evaluation regarding her ongoing gastral intestinal symptoms. We had previously ordered multiple PPIs in the past. Currently she is on pantoprazole 40 mg a day and she does have some good symptom control of what she calls her lower esophageal pain. She denies any esophageal dysphagia. She denies any chest pain or shortness of breath. She says she has had a cardiac workup in the past which has been normal. She does not take any NSAIDs on a daily basis for her rheumatoid arthritis. He did have a colonoscopy approximately 2 years ago which was incomplete. She has been getting intermittent left lower quadrant pain which lasts about 2 or 3 days but gets better spontaneously. This pain is associated with incomplete evacuation. She denies any bleeding per rectum. She denies any chest pain, shortness of breath or other change in bowel habits. Admitting diagnosis for upper GI symptoms with the autoimmune gastritis, gastroparesis, celiac disease, peptic ulcer disease, atypical GERD The diagnosis for lower GI symptoms would be a segment of colitis associated with diverticulosis, mild ischemic colitis, IBS with intermittent constipation Recommendation: Gastric emptying study consider CT scan abdomen pelvis because she has never had an Her blood work including inflammatory markers, thyroid studies, gastrin, antibodies for autoimmune gastritis EGD and colonoscopy. Orders: Orders Vitamin B12 Today K21.9 - Gastro-esophageal reflux disease without esophagitis FOLATES,SERUM (FOLIC ACID) Today K21.9 - Gastro-esophageal reflux disease without esophagitis Gastrin, Serum Today K21.9 - Gastro-esophageal reflux disease without esophagitis Thyroid Stim Hormone (TSH) Today E03.9 - Hypothyroidism, unspecified, K21.9 - Gastro-esophageal reflux disease without esophagitis Anti-Parietal Cell AB, QN Today K21.9 - Gastro-esophageal reflux disease without esophagitis Intrinsic Factor Ab Today K21.9 - Gastro-esophageal reflux disease without esophagitis Celiac AB,Comprehensive Today K21.9 - Gastro-esophageal reflux disease without esophagitis Erythrocyte Sed Rate Today K21.9 - Gastro-esophageal reflux disease without esophagitis CRP Today K21.9 - Gastro-esophageal reflux disease without esophagitis Gastric Emptying Study Today K21.9 - Gastro-esophageal reflux disease without esophagitis DI + Protein Elect, Serum Today K21.9 - Gastro-esophageal reflux disease without esophagitis LDH Today K21.9 - Gastro-esophageal reflux disease without esophagitis 02/12/25 0942 <Electronically signed by Darrin Lozoya DO> Cosigner Signature (if applicable): CC: Dr. Kade Fry MD; Darrin Lozoya DO~ Signed [facility] Work Phone: 1([phone]) 457-841306-23-2025 Procedure note [facility] Medical Records Department [address] [place] [address] Colonoscopy Report MR#: [id number] Acct: [id number] Name: ELISHA GODFREY Rep #:[id number] : 1955 69 From: Darrin Lozoya DO PCP: Dr. Kade Fry MD Status:[facility] Patient Name: Elisha Godfrey Procedure Date: 02/12/2025 10:21 AM Date of : 1955 Age: 69 Procedure: Colonoscopy Indications: High risk colon cancer surveillance: Personal history of colonic polyps Providers: Darrin Lozoya DO Referring MD: Kade Fry MD Medicines: Monitored Anesthesia Care Patient Profile: This is a 69 year old female. Refer to note in patient chart for documentation of history and physical. Patient has symptoms of acute left lower quadrant abdominal pain, chronic epigastric abdominal pain and chronic heartburn. Last Colonoscopy: 3 years ago. Complications: No immediate complications. Procedure: Pre-Anesthesia Assessment: - Prior to the procedure, a History and Physical was performed, and patient medications and allergies were reviewed. The patient is competent. The risks and benefits of the procedure and the sedation options and risks were discussed with the patient. All questions were answered and informed consent was obtained. Patient identification and proposed procedure were verified. Mental Status Examination: alert and oriented. Airway Examination: normal oropharyngeal airway and neck mobility. Respiratory Examination: clear to auscultation. CV Examination: normal. Prophylactic Antibiotics: The patient does not require prophylactic antibiotics. Prior Anticoagulants: The patient has taken no anticoagulant or antiplatelet agents except for NSAID medication. ASA Grade Assessment: II - A patient with mild systemic disease. After reviewing the risks and benefits, the patient was deemed in satisfactory condition to undergo the procedure. The anesthesia plan was to use monitored anesthesia care (MAC). Immediately prior to administration of medications, the patient was re-assessed for adequacy to receive sedatives. The heart rate, respiratory rate, oxygen saturations, blood pressure, adequacy of pulmonary ventilation, and response to care were monitored throughout the procedure. The physical status of the patient was re-assessed after the procedure. After I obtained informed consent, the scope was passed under direct vision. Throughout the procedure, the patient's blood pressure, pulse, and oxygen saturations were monitored continuously. The Colonoscope was introduced through the anus and advanced to the sigmoid colon. The Endoscope was introduced through the and advanced to. The colonoscopy was extremely difficult due to restricted mobility of the colon. Successful completion of the procedure was aided by changing endoscopes. The patient tolerated the procedure well. The quality of the bowel preparation was good. Sigmoid colon were photographed. Scope In: 10:22:54 AM Scope Out: 10:56:19 AM Total Procedure Duration Time 0 hours 33 minutes 25 seconds Findings: The perianal and digital rectal examinations were normal. A benign-appearing, intrinsic severe stenosis measuring 6 cm (in length) was found in the sigmoid colon and was non-traversed. Impression: - Stricture in the sigmoid colon. - No specimens collected. Recommendation: - Discharge patient to home. - Resume previous diet. - Continue present medications. - CT scan of the abdomen pelvis with oral and IV contrast - Repeat colonoscopy to evaluate the response to therapy. Procedure Code(s): --- Professional --- 14522, Colonoscopy, flexible; diagnostic, including collection of specimen(s) by brushing or washing, when performed (separate procedure) CPT copyright 2021 [employer]. All rights reserved. The codes documented in this report are preliminary and upon medical billing coder review may be revised to meet current compliance requirements. Darrin Lozoya DO 02/12/2025 11:10:50 AM This report has been signed electronically. Number of Addenda: 0 Note Initiated On: 02/12/2025 10:21 AM 02/12/25 1111 Date _ Darrin Lozoya DO Cosigner Signature: Date (if indicated) CC: Dr. Kade Fry MD; Darrin Lozoya DO ~ Date Dictated: 02/12/25 1021 Date Transcribed: Professional Wrestler: RF Signed [facility]06-23-2025 Procedure note [facility] Medical Records Department [address] [place] [address] Operative Report - CC Letter MR#: [id number] Acct: [id number] Name: ELISHA GODFREY Rep #:[id number] : 1955 69 From: Darrin Lozoya DO PCP: Dr. Kade Fry MD Status:[facility] 02/12/2025 Kade Fry MD Re : Colonoscopy procedure for Elisha Godfrey Dear Dr. Fry This procedure was performed on Wednesday, February 12, 2025. My impressions and recommendations are as follows: Impressions : - Stricture in the sigmoid colon. - No specimens collected. Recommendations : - Discharge patient to home. - Resume previous diet. - Continue present medications. - CT scan of the abdomen pelvis with oral and IV contrast - Repeat colonoscopy to evaluate the response to therapy. My findings are described in the full procedure note, which is enclosed. If I can be of further assistance, please feel free to contact me at . Sincerely, Darrin Lozoya DO 02/12/2025 11:10:50 AM This report has been signed electronically. 02/12/25 1111 Date _ Darrin Lozoya DO Cosignkaty Signature: Date (if indicated) CC: Dr. Kade Fry MD; Darrin Lozoya DO ~ Date Dictated: 02/12/25 1021 Date Transcribed: Professional Wrestler: RF Signed [facility]06-23-2025 Consult note [facility] Medical Records Department [address] [place] [address] Anesthesia Postop Eval I 02/12/25 1108 MR#: [id number] Acct: [id number] Name: ELISHA GODFREY Rep #:[id number] : 1955 69 From: Javier Cat PCP: Dr. Kade Fry MD Status:[facility] Y Race: C Location: [place] [address] Anesthesia: Postop Eval I Current Vital Signs Temperature: 97.2 F Pulse Rate: 74 Blood Pressure: 112/55 Respiratory Rate: 16 Pulse Ox: 99 Oxygen Delivery Method: Room Air Assessment Airway patent: Yes Spontaneous unlabored respirations: Yes Mental status: Awake and Calm nausea: No Vomiting: No Anesthesia Complication: No Fluid Hydration Crystalloid volume administer (ml): 700 Total IV fluid infused: 700 Progress Note Anesthesia document: Postop Eval 1 completed: Yes 02/12/25 1109 > Date _ Javier Ruelas Signature: Date CC: ~ Signed [facility]06-23-2025 Procedure note [facility] Medical Records Department [address] [place] [address] EGD Report MR#: [id number] Acct: [id number] Name: ELISHA GODFREY Rep #:[id number] : 1955 69 From: Darrin Lozoya DO PCP: Dr. Kade Fry MD Status:[facility] Patient Name: Elisha Godfrey Procedure Date: 02/12/2025 10:04 AM Date of : 1955 Age: 69 Procedure: Upper GI endoscopy Indications: Functional Dyspepsia, Heartburn Providers: Darrin Lozoya DO Referring MD: Kade Fry MD Medicines: Monitored Anesthesia Care Patient Profile: This is a 69 year old female. Refer to note in patient chart for documentation of history and physical. Patient has symptoms of acute left lower quadrant abdominal pain, chronic epigastric abdominal pain and chronic heartburn. Complications: No immediate complications. Procedure: Pre-Anesthesia Assessment: - Prior to the procedure, a History and Physical was performed, and patient medications and allergies were reviewed. The patient is competent. The risks and benefits of the procedure and the sedation options and risks were discussed with the patient. All questions were answered and informed consent was obtained. Patient identification and proposed procedure were verified. Mental Status Examination: alert and oriented. Airway Examination: normal oropharyngeal airway and neck mobility. Respiratory Examination: clear to auscultation. CV Examination: normal. Prophylactic Antibiotics: The patient does not require prophylactic antibiotics. Prior Anticoagulants: The patient has taken no anticoagulant or antiplatelet agents except for NSAID medication. ASA Grade Assessment: II - A patient with mild systemic disease. After reviewing the risks and benefits, the patient was deemed in satisfactory condition to undergo the procedure. The anesthesia plan was to use monitored anesthesia care (MAC). Immediately prior to administration of medications, the patient was re-assessed for adequacy to receive sedatives. The heart rate, respiratory rate, oxygen saturations, blood pressure, adequacy of pulmonary ventilation, and response to care were monitored throughout the procedure. The physical status of the patient was re-assessed after the procedure. After obtaining informed consent, the endoscope was passed under direct vision. Throughout the procedure, the patient's blood pressure, pulse, and oxygen saturations were monitored continuously. The Colonoscope was introduced through the mouth, and advanced to the second part of duodenum. The upper GI endoscopy was accomplished without difficulty. The patient tolerated the procedure well. Scope In: 10:16:41 AM Scope Out: 10:21:15 AM Total Procedure Duration Time 0 hours 4 minutes 34 seconds Findings: The Z-line was irregular and was found 40 cm from the incisors. Biopsies were taken with a cold forceps for histology. Verification of patient identification for the specimen was done. Estimated blood loss was minimal. Patchy mildly erythematous mucosa without bleeding was found in the gastric body. Biopsies were taken with a cold forceps for histology. Verification of patient identification for the specimen was done. Estimated blood loss was minimal. Biopsies were taken with a cold forceps for Helicobacter pylori testing. Verification of patient identification for the specimen was done. Estimated blood loss was minimal. No gross lesions were noted in the second portion of the duodenum. Impression: - Z-line irregular, 40 cm from the incisors. Biopsied. - Erythematous mucosa in the gastric body. Biopsied. - No gross lesions in the second portion of the duodenum. Recommendation: - Discharge patient to home. - Resume previous diet. - Continue present medications. - Await pathology results. Procedure Code(s): --- Professional --- 43363, Esophagogastroduodenoscopy, flexible, transoral; with biopsy, single or multiple CPT copyright 2021 [employer]. All rights reserved. The codes documented in this report are preliminary and upon medical billing coder review may be revised to meet current compliance requirements. Darrin Lozoya DO 02/12/2025 11:05:56 AM This report has been signed electronically. Number of Addenda: 0 Note Initiated On: 02/12/2025 10:04 AM 02/12/251105 Date _ Darrin Lozoya DO Cosigner Signature: Date (if indicated) CC: Dr. Kade Fry MD; Darrin Lozoya DO ~ Date Dictated: 02/12/25 1004 Date Transcribed: Professional Wrestler: RF Signed [facility]06-23-2025 Procedure note [facility] Medical Records Department [address] [place] [address] Operative Report - CC Letter MR#: [id number] Acct: [id number] Name: ELISHA GODFREY Rep #:[id number] : 1955 69 From: Darrin Lozoya DO PCP: Dr. Kade Fry MD Status:[facility] 02/12/2025 Kade Fry MD Re : Upper GI endoscopy procedure for Elisha Godfrey Dear Dr. Fry This procedure was performed on Wednesday, February 12, 2025. My impressions and recommendations are as follows: Impressions : - Z-line irregular, 40 cm from the incisors. Biopsied. - Erythematous mucosa in the gastric body. Biopsied. - No gross lesions in the second portion of the duodenum. Recommendations : - Discharge patient to home. - Resume previous diet. - Continue present medications. - Await pathology results. My findings are described in the full procedure note, which is enclosed. If I can be of further assistance, please feel free to contact me at . Sincerely, Darrin Lozoya DO 02/12/2025 11:05:56 AM This report has been signed electronically. 02/12/251105 Date _ Darrin Friend DO Lakiaignkaty Signature: Date (if indicated) CC: Dr. Kade Fry MD; Darrin Friend, DO ~ Date Dictated: 02/12/25 1004 Date Transcribed: Professional Wrestler: ABUNDIO Signed [facility]06-23-2025 Evaluation note* Diagnosis Onset Date Resolution Status Admit Date GERD (gastroesophageal reflu x disease) acute February 12, 2025 8:46am Personal history of colon polyps, unspecified acute February 12 8:46am Abdominal pain chronic February 12, 2025 8:46am Abdominal pain chronic March 09, 2025 8:53am Stenosis colon chronic March 09, 2025 8:53am [facility] Work Phone: 1(233) 524-458306-23-2025 Evaluation note* Diagnosis Onset Date Resolution Status Admit Date GERD (gastroesophageal reflu x disease) acute February 12, 2025 8:46am Personal history of colon polyps, unspecified acute February 12 8:46am Abdominal pain chronic February 12, 2025 8:46am Abdominal pain chronic March 09, 2025 8:53am Stenosis colon chronic March 09, 2025 8:53am Spigelian hernia acute March 232024 1:13pm Abdominal pain chronic March h2024 1:13pm Stenosis colon chronic March 1:13pm [facility] Work Phone: 1(682) 741-771706-23-2025 Evaluation note* Diagnosis Onset Date Resolution Status Admit Date GERD (gastroesophageal reflu x disease) acute February 12, 2025 8:46am Personal history of colon polyps, unspecified acute February 12 025 8:46am Abdominal pain chronic February 12, 2025 8:46am Abdominal pain chronic March 09, 2025 8:53am Stenosis colon chronic March 09, 2025 8:53am Spigelian hernia acute March 232024 1:13pm Abdominal pain chronic March h2024 1:13pm [facility] Work Phone: 1(244) 576-558206-23-2025 Evaluation note* Diagnosis Onset Date Resolution Status Admit Date GERD (gastroesophageal reflu x disease) acute February 12, 2025 8:46am Personal history of colon polyps, unspecified acute February 12, 2 025 8:46am Abdominal pain chronic February 12, 2025 8:46am Abdominal pain chronic March 09, 2025 8:53am Stenosis colon chronic March 09, 2025 8:53am Spigelian hernia acute March 232024 1:13pm Abdominal pain chronic March 1:13pm Cholelithiasis acute May 03, 2025 1:16pm Spigelian hernia acute 2024 1:16pm [facility] Work Phone: 1(705) 219-883406-23-2025 Consult note [facility] Medical Records Department [address] [place] [address] Pre-Anesthesia Evaluation 02/12/25 0953 MR#: [id number] Acct: [id number] Name: ELISHA GODFREY Rep #:[id number] : 1955 69 From: Jimmy Oscar PCP: Dr. Kade Fry MD Status:[facility] Y Race: C Location: [place] [address] ASA Classification* ASA Classification ASA Classification: 2 Assessment & Plan Anesthesia* Anesthesia Assessment Anesthesia Assessment: Discussed sedation and/or anesthesia options, risks, benefits, and alternatives with patient/parents/legal guardian/POA. Questions invited. The patient/parents/legal guardian/POA seems to understand and agrees to proceedwith anesthesia plan. Reviewed the physical assessment, medical history, allergy history and patient home medications list prior to surgery/procedure/anesthetic and documented any changes. Performed airway and anesthesia risk assessments. Anesthesia Type Anesthesia Type: MAC History Source History Obtained from:: Patient Anesthesia Focused Assessment* Temperature: 96.9 F Pulse Rate: 63 Blood Pressure: 151/81 Respiratory Rate: 16 Pulse Ox: 99 Oxygen Delivery Method: Room Air Airway Assessment Mouth opens: >3 cm Mallampati Score: II Teeth Condition: Intact Neck Range of motion (ROM): Full ROM Labs Anesthesia Preop lab: CBC WBC 3.4 K/mm3 (4.4-11.0) L 12/26/24 08:30 12/26/24 RBC 3.73 M/mm3 (4.2-5.4) L 12/26/24 08:30 12/26/24 Hgb 13.2 g/dL (12.0-15.0) 12/26/24 08:30 12/26/24 Hct 38.7 % (37-47) 12/26/24 08:30 12/26/24 Plt Count 198 K/mm3 (150-450) 12/26/24 08:30 12/26/24 CHEMISTRY Potassium 4.3 mmol/L (3.3-5.1) 12/26/24 08:30 12/26/24 Sodium 141 mmol/L (133-145) 12/26/24 08:30 12/26/24 BUN 18 mg/dL (4-19) 12/26/24 08:30 12/26/24 Creatinine 0.80 mg/dL (0.70-1.20) 12/26/24 08:30 12/26/24 Glucose 110 mg/dL (70-99) H 12/26/24 08:30 12/26/24 TSH 2.340 uIU/mL (0.300-4.200) 11/27/24 09:42 03/16 COAG Pre-Assessment Diagnosis/Proposed Procedure Planned Operative Procedure(s): EGD, COLONOSCOPY Anesthesia History Anesthesia History - workers compensation claims examiner: Anesthesia History - workers compensation claims examiner Hx Hospitalization No 02/08/25 11:46 Any Problems With Anesthesia Yes: DIFFICULT TO WAKE 02/08/25 11:46 Cholinesterase deficiency No 02/08/25 11:46 You/Your Family Experience No 02/08/25 11:46 fever (hyperthermia) with Relationship Recent Exposure to Contagious No 02/12/25 09:26 Disease Does patient have nerve No 02/08/25 11:46 stimulator Patient instructed to have device shut off --Does patient have Pacemaker No 02/12/25 09:26 or ICD? When Was Last Pacemaker Check QUESTION #4 FULL TEXT: You/Your Family Experience fever (hyperthermia) with Anesthesia Last Oral Intake Last Oral intake: Last Oral Intake NPO since 05:00 02/12/25 09:26 Meds taken in AM with sips of No 02/12/25 09:26 water? Meds patient instructed to take am of surgery PONV PONV - workers compensation claims examiner: PONV - workers compensation claims examiner Female Yes 02/08/25 11:46 HX of Motion Sickness No 02/08/25 11:46 HX of N/V After Surgery No 02/08/25 11:46 Non-Smoker Yes 02/08/25 11:46 Duration of Surgery greater No 02/08/25 11:46 than 60 minutes Number of Risk Factors 2 02/08/25 11:46 PONV Score Moderate Risk 02/08/25 11:46 Height & Weight Height & Weight: Anesthesia: Height & Weight Height 5 ft 1 in 02/12/25 09:26 Weight: 86.7 kg 02/12/25 09:26 Body Mass Index (BMI) 36.1 02/12/25 09:26 Respiratory Assessment Respiratory Assessment - workers compensation claims examiner: Respiratory Tract Infection Hx - workers compensation claims examiner Hx Respiratory Tract Infection No 02/08/25 11:46 STOP Sleep Apnea STOP Sleep Apnea - workers compensation claims examiner: STOP Sleep Apnea - workers compensation claims examiner Hx Hypertension Yes: PER PT, CONTROLLED ON 02/08/25 11:46 MED Hx Sleep Apnea No 02/08/25 11:46 CPAP BIPAP Do you snore loudly (louder Yes 02/08/25 11:46 than talking or can be heard Do you often feel tired/ No 02/08/25 11:46 fatigued/ sleepy during daytime? Has anyone observed you stop No 02/08/25 11:46 breathing during sleep? STOP Results Positive 02/08/25 11:46 QUESTION #5 FULL TEXT : Do you snore loudly (louder than talking or can be heard through closeddoors)? 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 - workers compensation claims examiner: Tobacco Use History - workers compensation claims examiner Tobacco Use Smoking Status Never smoker 02/08/25 11:46 Hx Tobacco Use No 02/08/25 11:46 Years Smoking Packs Smoked per Day Smoking Cessation Date was within the last 15 years Hx Smoking Cessation Date Hx Smoking Cessation Counseling Hematologic Medial History Hematologic Hx - workers compensation claims examiner: Hematologic Medical Hx - cradle slide maker Hx of Blood Transfusion No 02/08/25 11:46 Hx of Transfusion in last 3 No 02/08/25 11:46 Months Date of Last Transfusion (if within last 3 months) Ever experience any problems No 02/08/25 11:46 with transfusion(s)? Specify any problems Hx of Preganancy in last 3 No 02/08/25 11:46 Months Nurse Filling Out Transfusion MGRIFFITH 02/08/25 11:46 & Questions: Date: 02/08/25 02/08/25 11:46 Time: 11:48 02/08/25 11:46 Patient unable to answer at this time (ie. confused, unrespo /Reproduction History /Reproductive History - workers compensation claims examiner: /Reproductive Hx- workers compensation claims examiner Hx Now No 02/08/25 11:46 Gestational Age (in weeks): EDC: Hx Hx Para Hx Section SAB No 02/08/25 11:46 Active Medications Active Medications: Current Medications Generic Name Dose Route Start Last Admin Trade Name Freq PRN Reason Stop Dose Admin Lactated Ringer's 1,000 mls @ 15 mls/hr 02/12/25 09:15 02/12/25 09:25 IV 15 mls/hr .Q48H KIRIT Administration PFSH Medical History Wears glasses Rheumatoid arthritis TIA (transient ischemic attack) History of hiatal hernia Difficulty swallowing Non-smoker Shortness of breath on exertion Leg cramps History of edema GERD (gastroesophageal reflux disease) Osteopenia Osteoarthritis Hypertension Problems with hearing Migraines Cataracts, bilateral History of back problems Arthritis Seasonal allergies Home Medications ?Medication ?Instructions ?Recorded ?Last Taken ?Type Ibuprofen [Motrin] 800 mg PO TID PRN PRN Pain 1 Unknown History aspirin 81 mg tablet,delayed 81 mg PO MOWEFR 05/26/16 02/07/25 History release calcium carbonate (Oyster Shell 500 mg PO BID 05/26/16 02/11/25 History Calcium 500) cholecalciferol (vitamin D3) 25 2,000 unit PO BID 12/0602/11/25 History mcg (1,000 unit) tablet (Vitamin D3) fexofenadine-pseudoephedrine ER 1 ea PO DAILY 05/26/16 02/11/25 History 180 mg-240 mg tablet,ext.release 24 hr (Carmelita-D 24 Hour) omega-3 fatty acids-fish oil 340 1 ea PO DAILY 6 02/06/25 History mg-1,000 mg capsule (Fish Oil) ramipril 5 mg capsule 5 mg PO DAILY 05/26/1602/11 History vitamin B complex 1 ea PO DAILY 05/26/1602/11 History ascorbic acid (vitamin C) 1,000 mg 1 g PO QDAY 5 02/11/25 History capsule methotrexate sodium 2.5 mg tablet 20 mg PO SA 11/21/24 02/03/25 History pantoprazole 40 mg tablet,delayed 40 mg PO QDAY 02/11/25 History release folic acid 1 mg tablet 2 mg PO QDAY 11/27/24 History Allergy/AdvReac Type Severity Reaction Status Date / Time lansoprazole (From Prevacid) Allergy Hives Verified 02/12/25 09:25 latex Allergy Unknown Verified 02/12/25 09:25 alendronate sodium (From AdvReac Unknown heartburn Verified 02/12/25 09:25 Fosamax) adhesive AdvReac Unknown Verified 02/12/25 09:25 diphenhydramine (From AdvReac FEEL Verified 02/12/25 09:25 Benadryl) WEIRD Family History Mother Arthritis Brother Arthritis Colon cancer Diabetes Heart disease Surgical History History of esophagogastroduodenoscopy (EGD) History of colonoscopy History of tubal ligation H/O: hysterectomy History of appendectomy History of tonsillectomy Social History Smoking Status: Never smoker alcohol intake: never substance use type: does not use what type of physical activity do you participate in: none Review of Systems (Anesthesia) ROS Narrative System reviewed and no additional complaints, except as documented. 02/12/25 0956 > Date _ Jimmy Gillis MD Cosigner Signature: Date CC: ~ Signed [facility]06-23-2025 History and physical note [facility] Medical Records Department [address] [place] [address] History & Physical Exam 02/12/25 0941 MR#: [id number] Acct: [id number] Name: ELISHA GODFREY Rep #:[id number] : 1955 69 From: Darrin Lozoya DO PCP: Dr. Kade Fry MD Status:[facility] Location: [place] [address] HPI - General General Date of Admission: 02/12/25 Date of Service: 02/12/25 Chief Complaint: GERD and personal history of polyps HPI Narrative ELISHA GODFREY, is a 69 F who presents for an EGD and colonoscopy. *[facility] established 4.7.25 pt reports that she is here to transfer care and to discuss scheduling for EGD and colonoscopy. Pt reports her last scopes were in 2021 and it was recommended she repeat within 1-2 years. Pt reports a burning sensation in her abdomen that comes in clusters, and is unable to identify trigger. Pt reports difficulty swallowing dry foods like bread and chicken. Pt continues with pantoprazole 40mg daily, thinks it is helpful, but not fully effective. [facility] Medical History Wears glasses Rheumatoid arthritis TIA (transient ischemic attack) History of hiatal hernia Difficulty swallowing Non-smoker Shortness of breath on exertion Leg cramps History of edema GERD (gastroesophageal reflux disease) Osteopenia Osteoarthritis Hypertension Problems with hearing Migraines Cataracts, bilateral History of back problems Arthritis Seasonal allergies Home Medications ?Medication ?Instructions ?Recorded ?Last Taken ?Type Ibuprofen [Motrin] 800 mg PO TID PRN PRN Pain 1 Unknown History aspirin 81 mg tablet,delayed 81 mg PO MOWEFR 05/26/16 02/07/25 History release calcium carbonate (Oyster Shell 500 mg PO BID 05/26/16 02/11/25 History Calcium 500) cholecalciferol (vitamin D3) 25 2,000 unit PO BID 12/0602/11/25 History mcg (1,000 unit) tablet (Vitamin D3) fexofenadine-pseudoephedrine ER 1 ea PO DAILY 05/26/16 02/11/25 History 180 mg-240 mg tablet,ext.release 24 hr (Carmelita-D 24 Hour) omega-3 fatty acids-fish oil 340 1 ea PO DAILY 6 02/06/25 History mg-1,000 mg capsule (Fish Oil) ramipril 5 mg capsule 5 mg PO DAILY 05/26/1602/11 History vitamin B complex 1 ea PO DAILY 05/26/1602/11 History ascorbic acid (vitamin C) 1,000 mg 1 g PO QDAY 5 02/11/25 History capsule methotrexate sodium 2.5 mg tablet 20 mg PO SA 11/21/24 02/03/25 History pantoprazole 40 mg tablet,delayed 40 mg PO QDAY 02/11/25 History release folic acid 1 mg tablet 2 mg PO QDAY 11/27/24 History Allergy/AdvReac Type Severity Reaction Status Date / Time lansoprazole (From Prevacid) Allergy Hives Verified 02/12/25 09:25 latex Allergy Unknown Verified 02/12/25 09:25 alendronate sodium (From AdvReac Unknown heartburn Verified 02/12/25 09:25 Fosamax) adhesive AdvReac Unknown Verified 02/12/25 09:25 diphenhydramine (From AdvReac FEEL Verified 02/12/25 09:25 Benadryl) WEIRD Family History Mother Arthritis Brother Arthritis Colon cancer Diabetes Heart disease Surgical History History of esophagogastroduodenoscopy (EGD) History of colonoscopy History of tubal ligation H/O: hysterectomy History of appendectomy History of tonsillectomy Social History Smoking Status: Never smoker alcohol intake: never substance use type: does not use what type of physical activity do you participate in: none ROS Constitutional Constitutional: Denies fatigue, fever(s), poor appetite, weight gain or weight loss Gastrointestinal Gastrointestinal: Denies belching, bloating, change in bowel habits, change in stool character, chewing difficulty, coffee ground emesis, constipation, cramping, diarrhea, dyspepsia, dysphagia, earlysatiety, excessive flatus, fecal incontinence, heartburn, hematemesis, hematochezia, hemorrhoids, loose stools, melena, nausea, odynophagia, rectal bleeding, tenesmus, vomiting or weight changes Vital Signs Vital Signs Vital Signs: 02/12/25 09:26 02/12/25 09:26 Temperature 96.9 F L Temperature Source Temporal Pulse Rate 63 Respiratory Rate 16 Respiratory Pattern Normal Blood Pressure 151/81 H Blood Pressure Mean 104 Blood Pressure Source Monitor Blood Pressure Position Semi-Fowlers Blood Pressure Location Left Arm Pulse Ox 99 Oxygen Delivery Method Room Air Weight Weight: 191 lb 2.252 oz Body Mass Index (BMI) 36.1 Physical Exam Const alert, oriented x3, no apparent distress and healthy appearing General Appearance: cooperative GI normal to inspection, nondistended, normoactive bowel sounds, soft to palpation, non-tender and non-distended Percussion: normal to percussion Rectal Exam: deferred Assessment & Plan Assessment/Plan (1) Personal history of colon polyps, unspecified: (2) GERD (gastroesophageal reflux disease): (3) Abdominal pain: PLAN: Assessment and Plan Assessment and Plan (1) Gastroesophageal reflux disease: Status: Acute (2) Personal history of colon polyps, unspecified: Status: Acute (3) Abdominal pain: Status: Acute Plan: Elisha is a very pleasant 69-year-old with past medical history of rheumatoid arthritis mostly involving her hands and upper extremities on methotrexate and folic acid, fibromyalgia, gastroesophageal reflux disease and intermittent left lower quadrant pain. She also has a personal history of adenomatous polyp and a family history of gastric cancer. She comes in today for initial evaluation regarding her ongoing gastral intestinal symptoms. We had previously ordered multiple PPIs in the past. Currently she is on pantoprazole 40 mg a day and she does have some good symptom control of what she calls her lower esophageal pain. She denies any esophageal dysphagia. She denies any chest pain or shortness of breath. She says she has had a cardiac workup in the past which has been normal. She does not take any NSAIDs on a daily basis for her rheumatoid arthritis. He did have a colonoscopy approximately 2 years ago which was incomplete. She has been getting intermittent left lower quadrant pain which lasts about 2 or 3 days but gets better spontaneously. This pain is associated with incomplete evacuation. She denies any bleeding per rectum. She denies any chest pain, shortness of breath or other change in bowel habits. Admitting diagnosis for upper GI symptoms with the autoimmune gastritis, gastroparesis, celiac disease, peptic ulcer disease, atypical GERD The diagnosis for lower GI symptoms would be a segment of colitis associated with diverticulosis, mild ischemic colitis, IBS with intermittent constipation Recommendation: Gastric emptying study consider CT scan abdomen pelvis because she has never had an Her blood work including inflammatory markers, thyroid studies, gastrin, antibodies for autoimmune gastritis EGD and colonoscopy. Orders: Orders Vitamin B12 Today K21.9 - Gastro-esophageal reflux disease without esophagitis FOLATES,SERUM (FOLIC ACID) Today K21.9 - Gastro-esophageal reflux disease without esophagitis Gastrin, Serum Today K21.9 - Gastro-esophageal reflux disease without esophagitis Thyroid Stim Hormone (TSH) Today E03.9 - Hypothyroidism, unspecified, K21.9 - Gastro-esophageal reflux disease without esophagitis Anti-Parietal Cell AB, QN Today K21.9 - Gastro-esophageal reflux disease without esophagitis Intrinsic Factor Ab Today K21.9 - Gastro-esophageal reflux disease without esophagitis Celiac AB,Comprehensive Today K21.9 - Gastro-esophageal reflux disease without esophagitis Erythrocyte Sed Rate Today K21.9 - Gastro-esophageal reflux disease without esophagitis CRP Today K21.9 - Gastro-esophageal reflux disease without esophagitis Gastric Emptying Study Today K21.9 - Gastro-esophageal reflux disease without esophagitis DI + Protein Elect, Serum Today K21.9 - Gastro-esophageal reflux disease without esophagitis LDH Today K21.9 - Gastro-esophageal reflux disease without esophagitis 02/12/25 0942 Cosigner Signature (if applicable): CC: Dr. Kade Fry MD; Darrin Friend, ~ Signed [facility]06-23-2025 [facility] Medical Records Department [address] [place] [address] History Physical Exam 02/12/25 0941 MR#: [id number] Acct: [id number] Name: ELISHA GODFREY Rep #: [id number] : 1955 69 From: Darrin Lozoya DO PCP: Dr. Kade Fry MD Status:[facility] Location: [place] [address] HPI - General General Date of Admission: 02/12/25 Date of Service: 02/12/25 Chief Complaint: GERD and personal history of polyps HPI Narrative ELISHA GODFREY, is a 69 F who presents for an EGD and colonoscopy. *[facility] established 4.7.25 pt reports that she is here to transfer care and to discuss scheduling for EGD and colonoscopy. Pt reports her last scopes were in 2021 and it was recommended she repeat within 1-2 years. Pt reports a burning sensation in her abdomen that comes in clusters, and is unable to identify trigger. Pt reports difficulty swallowing dry foods like bread and chicken. Pt continues with pantoprazole 40mg daily, thinks it is helpful, but not fully effective. [facility] Medical History Wears glasses Rheumatoid arthritis TIA (transient ischemic attack) History of hiatal hernia Difficulty swallowing Non-smoker Shortness of breath on exertion Leg cramps History of edema GERD (gastroesophageal reflux disease) Osteopenia Osteoarthritis Hypertension Problems with hearing Migraines Cataracts, bilateral History of back problems Arthritis Seasonal allergies Home Medications ???Medication ???Instructions ???Recorded ???Last Taken ???Type Ibuprofen [Motrin] 800 mg PO TID PRN PRN Pain 6 Unknown History aspirin 81 mg tablet,delayed 81 mg PO MOWEFR 05/26/16 02/07/25 History release calcium carbonate (Oyster Shell 500 mg PO BID 05/26/16 02/11/25 Hi story Calcium 500) cholecalciferol (vitamin D3) 25 2,000 unit PO BID 05/26/16 5 History mcg (1,000 unit) tablet (Vitamin D3) fexofenadine-pseudoephedrine ER 1 ea PO DAILY 05/26/16 02/11/25 Hi story 180 mg-240 mg tablet,ext.release 24 hr (Carmelita-D 24 Hour) omega-3 fatty acids-fish oil 340 1 ea PO DAILY 05/26/16 02/06/25 Hi story mg-1,000 mg capsule (Fish Oil) ramipril 5 mg capsule 5 mg PO DAILY 05/26/16 02/11/25 Hi story vitamin B complex 1 ea PO DAILY 05/26/16 02/11/25 Hi story ascorbic acid (vitamin C) 1,000 mg 1 g PO QDAY 11/21/24 02/11/25 Hi story capsule methotrexate sodium 2.5 mg tablet 20 mg PO SA 11/21/24 02/03/25 His tory pantoprazole 40 mg tablet,delayed 40 mg PO QDAY 11/21/24 02/11/25 H istory release folic acid 1 mg tablet 2 mg PO QDAY 11/27/24 02/11/25 His tory Allergy/AdvReac Type Severity Reaction Status Date / Time lansoprazole (From Prevacid) Allergy Hives Verified 02/12/25 09:25 latex Allergy Unknown Verified 02/12/25 09:25 alendronate sodium (From AdvReac Unknown heartburn Verified 02/12/25 09:25 Fosamax) adhesive AdvReac Unknown Verified 02/12/25 09:25 diphenhydramine (From AdvReac FEEL Verified 02/12/25 09:25 Benadryl) WEIRD Family History Mother Arthritis Brother Arthritis Colon cancer Diabetes Heart disease Surgical History History of esophagogastroduodenoscopy (EGD) History of colonoscopy History of tubal ligation H/O: hysterectomy History of appendectomy History of tonsillectomy Social History Smoking Status: Never smoker alcohol intake: never substance use type: does not use what type of physical activity do you participate in: none ROS Constitutional Constitutional: Denies fatigue, fever(s), poor appetite, weight gain or weight loss Gastrointestinal Gastrointestinal: Denies belching, bloating, change in bowel habits, change in stool character, chewing difficulty, coffee ground emesis, constipation, cramping, diarrhea, dyspepsia, dysphagia, early satiety, excessive flatus, fecal incontinence, heartburn, hematemesis, hematochezia, hemorrhoids, loose stools, melena, nausea, odynophagia, rectal bleeding, tenesmus, vomiting or weight changes Vital Signs Vital Signs Vital Signs: 02/12/25 09:26 02/12/25 09:26 Temperature 96.9 F L Temperature Source Temporal Pulse Rate 63 Respiratory Rate 16 Respiratory Pattern Normal Blood Pressure 151/81 H Blood Pressure Mean 104 Blood Pressure Source Monitor Blood Pressure Position Semi-Fowlers Blood Pressure Location Left Arm Pulse Ox 99 Oxygen Delivery Method Room Air Weight Weight: 191 lb 2.252 oz Body Mass Index (BMI) 36.1 Physical Exam Const alert, oriented x3, no apparent distress and healthy appearing General Appeara (more content not included)...[facility] 01-19-2025 Telephone encounter Note* Telephone Encounter - Celia Temple - 01/19/2025 11:27 AM EDT Prescription Refill Information The patient has been identified by name and date of : Yes Caregiver verified no other encounters exist for this prescription request: Yes Caregiver confirmed with patient/requestor that no other refills are due, in the near future, with this provider at this time: Yes The last office visit in the department: 09-21-24 Does the patient have a future office visit with this provider/department: Yes Requested Prescriptions Pending Prescriptions Disp Refills ramipril (ALTACE) 5 mg capsule 90 capsule 3 Sig: Take 1 capsule by mouth once daily. Celia Chanel January 19, 2025 11:28 AM [facility]05-30-2025 Miscellaneous Notes* Telephone Encounter - Celia Temple - 01/19/2025 11:27 AM EDT Prescription Refill Information The patient has been identified by name and date of : Yes Caregiver verified no other encounters exist for this prescription request: Yes Caregiver confirmed with patient/requestor that no other refills are due, in the near future, with this provider at this time: Yes The last office visit in the department: 09-21-24 Does the patient have a future office visit with this provider/department: Yes Requested Prescriptions Pending Prescriptions Disp Refills ramipril (ALTACE) 5 mg capsule 90 capsule 3 Sig: Take 1 capsule by mouth once daily. Celia Chanel January 19, 2025 11:28 AM documented in this encounterUniversity [facility]als [facility]04-29-2025 NoteHNO ID: [id number] Author: REMINGTON PEREYRA LPN Service: ? Author Type: LICENSED NURSE Type: Progress Notes Filed: 12/19/2024 07:14 Note Text: Scan on 12/18/2024 7:57 PM by ProviderJose Carlos PA-C: [facility] History of Present illness Narrative* Remington Pereyra LPN - 12/19/2024 7:14 AM EDT Scan on 12/18/2024 7:57 PM by ProviderJose Carlos PA-C: GI documented in this encounterUniversity [facility]als [facility]04-16-2025 Telephone encounter Note * Telephone Encounter - Remington Pereyra LPN - 12/06/2024 9:39 AM EDT Patient notified of results and provider's instructions. Patient verbalizes understanding. Pt assisted in transfer to schedule repeat imaging in 6 months. Remington Pereyra LPN [facility]04-16-2025 Miscellaneous Notes* Telephone Encounter - Remington Pereyra LPN - 12/06/2024 9:39 AM EDT Patient notified of results and provider's instructions. Patient verbalizes understanding. Pt assisted in transfer to schedule repeat imaging in 6 months. Remington Pereyra LPN * Telephone Encounter - Kade Fry MD - 12/05/2024 9:15 PM EDT Let patient know a small asymmetry )0.5 cm) seen in the right breast on x-ray was not seen on US and suspected to be benign. However recommendation is to repeat imaging in 6 months. Order placed. documented in this encounterUniversity [facility]als [facility]04-15-2025 Telephone encounter Note * Telephone Encounter - Kade Fry MD - 12/05/2024 9:15 PM EDT Let patient know a small asymmetry )0.5 cm) seen in the right breast on x-ray was not seen on US and suspected to be benign. However recommendation is to repeat imaging in 6 months. Order placed. [facility]04-15-2025 History of Present illness Narrative* Enma Venegas RDMS - 12/05/2024 1:30 PM EDT Radiology Service Progress Note PATIENT NAME: Elisha Godfrey DATE OF SERVICE: December 05, 2024 TIME: 4:43 PM PATIENT IDENTITY VERIFICATION COMPLETED USING TWO (2) IDENTIFIERS: Name and Date of confirmedby patient verbally. FALL SCREENING: Has the patient had 2 falls in the last year or 1 fall with injury or currently using an Ambulatory Assistive Device (Walker, Cane, Wheelchair, Crutches, etc.)? No PATIENT GENDER DATA: Assigned female at . status: : No status:NO. PATIENT RELEVANT IMPLANT DATA REVIEWED: Not Applicable PATIENT PRESENTS WITH AN IMPLANTABLE OR ATTACHED GENERAL HARDWARE SALESPERSON: No RADIOLOGY DEPARTMENT: Ultrasound PERIPHERAL IV DATA: Not applicable SIGNED BY: Enma Venegas RDMS December 05, 2024 4:43 PM documented in this encounterUniversity Hospitals [facility]04-15-2025 NoteHNO ID: [id number] Author: ENMA VENEGAS RDMS Service: ? Author Type: Plugger Type: Progress Notes Filed: 12/05/2024 16:43 Note Text: Radiology Service Progress Note PATIENT NAME: Elisha Godfrey DATE OF SERVICE: December 05, 2024 TIME: 4:43 PM PATIENT IDENTITY VERIFICATION COMPLETED USING TWO (2) IDENTIFIERS: Name and Date of confirmed by patient verbally. FALL SCREENING: Has the patient had 2 falls in the last year or 1 fall with injury or currently using an Ambulatory Assistive Device (Walker, Cane, Wheelchair, Crutches, etc.)? No PATIENT GENDER DATA: Assigned female at . status: : No status: NO. PATIENT RELEVANT IMPLANT DATA REVIEWED: Not Applicable PATIENT PRESENTS WITH AN IMPLANTABLE OR ATTACHED GENERAL HARDWARE SALESPERSON: No RADIOLOGY DEPARTMENT: Ultrasound PERIPHERAL IV DATA: Not applicable SIGNED BY: Enma Venegas RDMS December 05, 2024 4:43 [facility]04-15-2025 History of Present illness Narrative* Todd Zuniga Mammo Tech - 12/05/2024 1:00 PM EDT Radiology Service Progress Note PATIENT NAME: Elisha Godfrey DATE OF SERVICE: December 05, 2024 TIME: 1:01 PM PATIENT IDENTITY VERIFICATION COMPLETED USING TWO (2) IDENTIFIERS: Name and Date of confirmedby patient verbally. FALL SCREENING: Has the patient had 2 falls in the last year or 1 fall with injury or currently using an Ambulatory Assistive Device (Walker, Cane, Wheelchair, Crutches, etc.)? No PATIENT GENDER DATA: Assigned female at . status: : No status:NO. PATIENT RELEVANT IMPLANT DATA REVIEWED: Not Applicable PATIENT PRESENTS WITH AN IMPLANTABLE OR ATTACHED GENERAL HARDWARE SALESPERSON: No RADIOLOGY DEPARTMENT: Mammography PERIPHERAL IV DATA: Not applicable SIGNED BY: Jimbo Silva December 05, 2024 1:01 PM documented in this encounterUniversity Hospitals [facility]04-15-2025 NoteHNO ID: [id number] Author: TODD ZUNIGA Mammo Tech Service: ? Author Type: Plugger Type: Progress Notes Filed: 12/05/2024 13:02 Note Text: Radiology Service Progress Note PATIENT NAME: Elisha Godfrey DATE OF SERVICE: December 05, 2024 TIME: 1:01 PM PATIENT IDENTITY VERIFICATION COMPLETED USING TWO (2) IDENTIFIERS: Name and Date of confirmed by patient verbally. FALL SCREENING: Has the patient had 2 falls in the last year or 1 fall with injury or currently using an Ambulatory Assistive Device (Walker, Cane, Wheelchair, Crutches, etc.)? No PATIENT GENDER DATA: Assigned female at . status: : No status: NO. PATIENT RELEVANT IMPLANT DATA REVIEWED: Not Applicable PATIENT PRESENTS WITH AN IMPLANTABLE OR ATTACHED GENERAL HARDWARE SALESPERSON: No RADIOLOGY DEPARTMENT: Mammography PERIPHERAL IV DATA: Not applicable SIGNED BY: Todd Zuniga [employer] December 05, 2024 1:01 [facility]04-11-2025 NoteHNO ID: [id number] Author: REMINGTON PEREYRA LPN Service: ? Author Type: LICENSED NURSE Type: Progress Notes Filed: 12/01/2024 16:13 Note Text: Scan on 11/30/2024 10:38 AM by Jose Carlos Phelps PA-C: Miscellaneous Lab [facility]04-11-2025 History of Present illness Narrative* Remington Pereyra LPN - 12/01/2024 4:13 PM EDT Scan on 11/30/2024 10:38 AM by Jose Carlos Phelps PA-C: Miscellaneous Lab documented in this encounterUniversity Hospitals [facility]04-09-2025 NoteHNO ID: [id number] Author: FELICIANO LEAHY MA Service: ? Author Type: Ribbon Inker Type: Progress Notes Filed: 11/29/2024 13:46 Note Text: Scan on 11/27/2024 10:35 AM by Jose Carlos Phelps PA-C: Chemistry Scan on 11/27/2024 11:41 AM by Jose Carlos Phelps PA-C: Chemistry Feliciano Leahy [facility]04-09-2025 History of Present illness Narrative* Feliciano Leahy MA - 11/29/2024 1:46 PM EDT Scan on 11/27/2024 10:35 AM by Jose Carlos Phelps PA-C: Chemistry Scan on 11/27/2024 11:41 AM by Jose Carlos Phelps PA-C: Chemistry Feliciano Leahy MA documented in this encounterUniversity Hospitals [facility]04-07-2025 NoteHNO ID: [id number] Author: CAROL HARTMAN MA Service: ? Author Type: Ribbon Inker Type: Progress Notes Filed: 11/27/2024 18:41 Note Text: PT ASSESSMENT - CASTING ROOM Elisha presents for Application of brace. Applied Huma and Andersen Modabber wrist brace to Left wrist. Patient tolerated well. Patient has been instructed in Care and proper application of brace. Patient verbalized understanding. Carol Hartman [facility]04-07-2025 History of Present illness Narrative* Carol Hartman MA - 11/27/2024 3:10 PM EDT PT ASSESSMENT - CASTING ROOM Elisha presents for Application of brace. Applied Huma and Andersen Modabber wrist brace to Left wrist. Patient tolerated well. Patient has been instructed in Care and proper application of brace. Patient verbalized understanding. Carol Hartman MA * Manoj Gamino MD - 11/27/2024 2:47 PM EDT Manoj Gamino MD Department of Orthopaedics Orthopaedics [address] [place] [address] Dept: [phone] Dept November 27, 2024 CHIEF COMPLAINT: Established Patient and Follow Up of the Left Hand HPI Elisha is a 69-year-old female presenting for follow-up on left hand paresthesia and trigger thumb. Elisha reports improvement in left thumb symptoms following a recent cortisone injection, noting significant relief within 3 days post-injection. Initially, the thumb exhibited catching and clicking for the first 2 days post-injection, but these symptoms have since resolved. She describes the thumb as functioning better than it has in a long time. However, she continues to experience intermittent paresthesia in the left hand, particularly when holding her phone or driving. These episodes are less severe than prior to the injection and no longer disrupt her sleep. She has noticed that elevating her hand exacerbates the paresthesia, prompting her to reposition it during sleep to avoid symptoms. Additionally, she reports episodic discoloration of the left ring finger, which turns purple with minimal trauma. ASSESSMENT: G56.02 Carpal tunnel syndrome of left wrist (primary encounter diagnosis) M65.312 Trigger thumb, left thumb PLAN: 1. Carpal tunnel syndrome of left wrist (G56.02) EMG/NCS results indicate mild carpal tunnel syndrome with no evidence of cervical radiculopathy or ulnar neuropathy. Symptoms include intermittent paresthesia, which has improved but not completely resolved. Nocturnal symptoms have decreased. - Provided a wrist cock-up splint to be worn at night and during activities that exacerbate symptoms, such as driving. - Discussed potential benefits of a corticosteroid injection to reduce perineural edema, but patient prefers to monitor symptoms before proceeding with injection. - Educated on surgical options, including minimally invasive carpal tunnel release, if symptoms worsen or become intolerable. - Advised to monitor symptoms and report any worsening or persistent issues. 2. Trigger thumb, left thumb (M65.312) Significant improvement following corticosteroid injection; no longer experiencing triggering or locking of the thumb. Continue to monitor for any recurrence of symptoms. Will continue to monitor patient for Carpal tunnel syndrome of left wrist (primary encounter diagnosis) Trigger thumb, left thumb, patient to schedule visit as per follow up discussed. OBJECTIVE: Ms. Elisha Godfrey is a pleasant 69 year old in no apparent distress. Gen:There were no vitals taken for this visit. nl development, obese, no deformities ENT: Normocephalic, normal hearing, moist mucosa CV: Pulses:Radial= 2+ and symmetric, capillary refill < 2 secs, no peripheral edema/varicosities Skin: no rash, bruising or lesions. Good turgor. Psych: cooperative and appropriate, alert and oriented x 3, good mood and affect. Musculoskeletal: - Musculoskeletal: - Left Hand: - No catching or clicking in the thumb. Mild, persistent numbness in Median nerve Imaging: Tests: - Nerve conduction study: Mild carpal tunnel syndrome noted. No evidence of nerve root compromise in the cervical region or entrapment at the elbow. 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 Ferrer Internal hemorrhoids without mention of complication Lumbago 02/20/2008 Mixed hyperlipidemia Mixed stress and urge urinary incontinence 08/03/2012 Osteopenia, senile 08/31/2019 Pain in both lower extremities 09/19/2021 Suspect RLS PMH - PAST MEDICAL HISTORY OF [place] Prolapse of vaginal vault after hysterectomy 07/10/2013 Rosacea Severe obesity (BMI 35.0-39.9) with comorbidity (HCC) 09/21/2023 Sinus headache 08/28/2019 Spondylolisthesis at L4-L5 level 09/23/2021 Symptomatic menopausal or female climacteric states Past Surgical History: PAST SURGICAL HISTORY Procedure Laterality Date APPENDECTOMY HX BREAST BIOPSY CMBND ANTERPOST COLPORRAPHY W/CYSTO 09/20/2012 COLONOSCOPY 10/29/2021 repeat in 3 years, with MAC at [facility] COLONOSCOPY FLX DX W/COLLJ SPEC WHEN PFRMD 02/22/2006 COLONOSCOPY FLX DX W/COLLJ SPEC WHEN PFRMD 03/23/2016 Colonoscopy, repeat 5 years EGD W/O [facility] SPEC VARICIES INJ 10/29/2021 ESOPHAGOGASTRODUODENOSCOPY TRANSORAL DIAGNOSTIC 12/23/1998 EGD LAPAROSCOPIC APPENDECTOMY 07/12/2007 Early acute LIG/TRNSXJ FLP TUBE ABDL/VAG APPR UNI/BI Tubal ligation PAST SURGICAL HISTORY OF lipoma back, left back PAST SURGICAL HISTORY OF Right 06/02/2016 Dr. Matthew COATS, Right Knee Scope PAST SURGICAL HISTORY OF Left bone spur and cyst removal left thumb SLING OPER STRES INCONTINENCE 09/20/2012 [place] and cystoscopy TONSILLECTOMY HX TONSILLECTOMY PRIMARY/SECONDARY <AGE 12 Tonsillectomy VAG HYST 250 GM/< W/RMVL TUBE&/OVARY 09/20/2012 TVH/BSO, for prolapse w/ Santos's VAGINAL HYSTERECTOMY Medications: Current Outpatient Medications Medication Sig pantoprazole DR (PROTONIX) 40 mg tablet Take 1 tablet by mouth daily before breakfast. Take on empty stomach, 1/2 hr before meal. Cholecalciferol, Vitamin D3, (VITAMIN D) 25 mcg (1,000 unit) cap Take 2 capsules by mouth once daily. 50 mcg daily budesonide (RHINOCORT ALLERGY) 32 mcg/actuation nasal spray Use 1 [place] in each nostril as needed. ramipril (ALTACE) 5 mg capsule Take 1 capsule by mouth once daily. clobetasol (TEMOVATE) 0.05 % ointment Apply to affected area two times a day. docosahexaenoic acid/epa (FISH OIL ORAL) Take 1,000 mg by mouth once daily. folic acid 1 mg tablet Take 2 mg by mouth once daily. methotrexate 2.5 mg tablet Take 2.5 mg by mouth every Wednesday. Taking 8 tablets weekly ibuprofen (MOTRIN) 800 mg tablet Take 1 tablet by mouth every 8 hours as needed. FOR PAIN. ZINC ORAL Take 1 capsule by mouth once daily. vitamin E mixed/tocotrienol (VITAMIN E COMPLEX ORAL) Take 1 capsule by mouth once daily. olopatadine (PATANOL) 0.1 % ophthalmic solution 1 Drop twice daily. pataday Calcium-Cholecalciferol, D3, (CALCIUM 600 + D) 600-125 mg-unit tab Take one twice a day. sodium chloride-aloe vera (AYR SALINE) topical nasal gel by INTRANASAL route as needed. Artificial Tear, Hypromellose, (SYSTANE GEL) 0.3 % gel 1 Drop as needed (bedtime). Ascorbic Acid 1,000 mg tablet Take 1,000 mg by mouth once daily. fexofenadine hcl(CARMELITA 180 MG TAB) Take one(1) tablet daily. vitamin b complex(B COMPLEX CAP) Take one(1) tablet daily. aspirin(ECOTRIN LOW STRENGTH 81 MG TAB) one tablet 3 times a week multivitamins w-minerals/lut(CENTRUM SILVER TAB) Take one(1) tablet daily. No current facility-administered medications for this visit. Allergies: Prevacid [Lansoprazole], Adhesive, Benadryl [Diphenhydramine Hcl], Fosamax [Alendronate], and Latex ROS: General (negative for fatigue, malaise, weight loss/gain) HEENT (negative for headache, earache, recent vision changes, sinus pain, sore throat) Respiratory (no recent shortness of breath, hemoptysis) CV (negative for chest tightness, palpitations) Musculoskeletal (see HPI) Psych (no depression, anxiety) Musculoskeletal: (-) trigger thumb locking/catching Skin: (+) color changes (left ring finger) Neurological: (+) tingling (left hand), (-) nighttime awakenings Psychiatric: (+) sleep disturbance The patient consented to the use of [employer] software for draft documentation of the visit consistent with [facility] s Notice of Privacy Practices. Maonj Gamino MD documented in this encounterUniversity Hospitals [facility]04-07-2025 NoteHNO ID: [id number] Author: MANOJ GAMINO MD Service: ? Author Type: Physician Type: Progress Notes Filed: 11/27/2024 18:41 Note Text: Manoj Gamino MD Department of Orthopaedics Orthopaedics [address] [facility] [address] Dept: [phone] Dept November 27, 2024 CHIEF COMPLAINT: Established Patient and Follow Up of the Left Hand HPI Elisha is a 69-year-old female presenting for follow-up on left hand paresthesia and trigger thumb. Elisha reports improvement in left thumb symptoms following a recent cortisone injection, noting significant relief within 3 days post-injection. Initially, the thumb exhibited catching and clicking for the first 2 days post-injection, but these symptoms have since resolved. She describes the thumb as functioning better than it has in a long time. However, she continues to experience intermittent paresthesia in the left hand, particularly when holding her phone or driving. These episodes are less severe than prior to the injection and no longer disrupt her sleep. She has noticed that elevating her hand exacerbates the paresthesia, prompting her to reposition it during sleep to avoid symptoms. Additionally, she reports episodic discoloration of the left ring finger, which turns purple with minimal trauma. ASSESSMENT: G56.02 Carpal tunnel syndrome of left wrist (primary encounter diagnosis) M65.312 Trigger thumb, left thumb PLAN: 1. Carpal tunnel syndrome of left wrist (G56.02) EMG/NCS results indicate mild carpal tunnel syndrome with no evidence of cervical radiculopathy or ulnar neuropathy. Symptoms include intermittent paresthesia, which has improved but not completely resolved. Nocturnal symptoms have decreased. - Provided a wrist cock-up splint to be worn at night and during activities that exacerbate symptoms, such as driving. - Discussed potential benefits of a corticosteroid injection to reduce perineural edema, but patient prefers to monitor symptoms before proceeding with injection. - Educated on surgical options, including minimally invasive carpal tunnel release, if symptoms worsen or become intolerable. - Advised to monitor symptoms and report any worsening or persistent issues. 2. Trigger thumb, left thumb (M65.312) Significant improvement following corticosteroid injection; no longer experiencing triggering or locking of the thumb. Continue to monitor for any recurrence of symptoms. Will continue to monitor patient for Carpal tunnel syndrome of left wrist (primary encounter diagnosis) Trigger thumb, left thumb, patient to schedule visit as per follow up discussed. OBJECTIVE: Ms. Elisha Godfrey is a pleasant 69 year old in no apparent distress. Gen:There were no vitals taken for this visit. nl development, obese, no deformities ENT: Normocephalic, normal hearing, moist mucosa CV: Pulses:Radial= 2+ and symmetric, capillary refill < 2 secs, no peripheral edema/varicosities Skin: no rash, bruising or lesions. Good turgor. Psych: cooperative and appropriate, alert and oriented x 3, good mood and affect. Musculoskeletal: - Musculoskeletal: - Left Hand: - No catching or clicking in the thumb. Mild, persistent numbness in Median nerve Imaging: Tests: - Nerve conduction study: Mild carpal tunnel syndrome noted. No evidence of nerve root compromise in the cervical region or entrapment at the elbow. 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 Ferrer Internal hemorrhoids without mention of complication Lumbago 02/20/2008 Mixed hyperlipidemia Mixed stress and urge urinary incontinence 08/03/2012 Osteopenia, senile 08/31/2019 Pain in both lower extremities 09/19/2021 Suspect RLS PMH - PAST MEDICAL HISTORY OF [place] Prolapse of vaginal vault after hysterectomy 07/10/2013 Rosacea Severe obesity (BMI 35.0-39.9) with comorbidity (HCC) 09/21/2023 Sinus headache 08/28/2019 Spondylolisthesis at L4-L5 level 09/23/2021 Symptomatic menopausal or female climacteric states Past Surgical History: PAST SURGICAL HISTORY Procedure Laterality Date APPENDECTOMY HX BREAST BIOPSY CMBND ANTERPOST COLPORRAPHY W/CYSTO 09/20/2012 COLONOSCOPY 10/29/2021 repeat in 3 years, with MAC at [facility] (more content not included)...[facility]04-07-2025 Evaluation note* Diagnosis Onset Date Resolution Status Admit Date Abdominal pain acute November 27, 2024 8:21am GERD (gastroesophageal reflu x disease) acute November 27, 2024 8:21am Personal history of colon po lyps, unspecified acute November 27, 2024 8:21am [facility] Work Phone: 1(744) 368-827604-07-2025 Evaluation note* Diagnosis Onset Date Resolution Status Admit Date Abdominal pain acute November 27, 2024 8:21am GERD (gastroesophageal reflu x disease) acute November 27, 2024 8:21am Personal history of colon po lyps, unspecified acute November 27, 2024 8:21am Abdominal pain acute February 12, 2025 8:46am GERD (gastroesophageal reflu x disease) acute February 12, 2025 8:46am Personal history of colon po lyps, unspecified acute February 12, 2025 8:46am [facility] Work Phone: 1(250) 849-921304-07-2025 Evaluation note* Diagnosis Onset Date Resolution Status Admit Date Abdominal pain acute November 27, 2024 8:21am GERD (gastroesophageal reflu x disease) acute November 27, 2024 8:21am Personal history of colon po lyps, unspecified acute November 27, 2024 8:21am Abdominal pain acute February 12, 2025 8:46am GERD (gastroesophageal reflu x disease) acute February 12, 2025 8:46am Personal history of colon po lyps, unspecified acute February 12, 2025 8:46am Abdominal pain acute March 09, 2025 8:53am Stenosis colon acute March 09, 2025 8:53am [facility] Work Phone: 1(765) 613-740004-03-2025 Instructions* Patient Instructions* Chetan Bhagat - 11/23/2024 10:12 AM EDT Your wounds are healing nicely Continue with band aide during the day for a few more days Once completely dry, can go without band aide Ok to air-out the toe at night documented in this encounter[facility] NoteHNO ID: [id number] Author: CHETAN BHAGAT, ? Service: ? Author Type: Physician Type: Progress Notes Filed: 11/23/2024 10:15 Note Text: FOLLOW UP PODIATRIC OFFICE VISIT Chief Complaint: This 69 year old who presents for follow up:total nail matrixectomy of b/l hallux and left 2nd toe Patient doing very well Denies any redness or drainage Does report some pain with dressing changes PAIN EVALUATION 11/23/2024 0959 Pain Level: 4 Pain Location: -- Bilateral feet L>R Description: Sharp Duration Amount of Time: 3 Duration Units: Weeks Frequency: Intermittent Intervention/Comfort measure: -- None Hemoglobin A1C Date Value Ref Range Status 09/14/2024 5.7 (H) 4.3 - 5.6 % Final Comment: [place] Diabetes [employer] guidelines indicate that patients with HgbA1c in the range 5.7-6.4% are at increased risk for development of diabetes, and intervention by lifestyle modification may be beneficial. HgbA1c greater or equal to 6.5% is considered diagnostic of diabetes. 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 Ferrer Internal hemorrhoids without mention of complication Lumbago 02/20/2008 Mixed hyperlipidemia Mixed stress and urge urinary incontinence 08/03/2012 Osteopenia, senile 08/31/2019 Pain in both lower extremities 09/19/2021 Suspect RLS PMH - PAST MEDICAL HISTORY OF [place] Prolapse of vaginal vault after hysterectomy 07/10/2013 Rosacea Severe obesity (BMI 35.0-39.9) with comorbidity (HCC) 09/21/2023 Sinus headache 08/28/2019 Spondylolisthesis at L4-L5 level 09/23/2021 Symptomatic menopausal or female climacteric states Current Outpatient Medications Medication Sig pantoprazole DR (PROTONIX) 40 mg tablet Take 1 tablet by mouth daily before breakfast. Take on empty stomach, 1/2 hr before meal. Cholecalciferol, Vitamin D3, (VITAMIN D) 25 mcg (1,000 unit) cap Take 2 capsules by mouth once daily. 50 mcg daily budesonide (RHINOCORT ALLERGY) 32 mcg/actuation nasal spray Use 1 [place] in each nostril as needed. ramipril (ALTACE) 5 mg capsule Take 1 capsule by mouth once daily. clobetasol (TEMOVATE) 0.05 % ointment Apply to affected area two times a day. docosahexaenoic acid/epa (FISH OIL ORAL) Take 1,000 mg by mouth once daily. folic acid 1 mg tablet Take 2 mg by mouth once daily. methotrexate 2.5 mg tablet Take 2.5 mg by mouth every Wednesday. Taking 8 tablets weekly ibuprofen (MOTRIN) 800 mg tablet Take 1 tablet by mouth every 8 hours as needed. FOR PAIN. ZINC ORAL Take 1 capsule by mouth once daily. vitamin E mixed/tocotrienol (VITAMIN E COMPLEX ORAL) Take 1 capsule by mouth once daily. olopatadine (PATANOL) 0.1 % ophthalmic solution 1 Drop twice daily. pataday Calcium-Cholecalciferol, D3, (CALCIUM 600 + D) 600-125 mg-unit tab Take one twice a day. sodium chloride-aloe vera (AYR SALINE) topical nasal gel by INTRANASAL route as needed. Artificial Tear, Hypromellose, (SYSTANE GEL) 0.3 % gel 1 Drop as needed (bedtime). Ascorbic Acid 1,000 mg tablet Take 1,000 mg by mouth once daily. fexofenadine hcl(CARMELITA 180 MG TAB) Take one(1) tablet daily. vitamin b complex(B COMPLEX CAP) Take one(1) tablet daily. aspirin(ECOTRIN LOW STRENGTH 81 MG TAB) one tablet 3 times a week multivitamins w-minerals/lut(CENTRUM SILVER TAB) Take one(1) tablet daily. No current facility-administered medications for this visit. ALLERGIES Allergen Reactions Prevacid [Lansopraz* Hives Adhesive Unknown Benadryl [Diphenhyd* Other: See Comments makes her feel weird Fosamax [Alendronat* Other: See Comments GERD Latex Unknown PAST SURGICAL HISTORY Procedure Laterality Date APPENDECTOMY HX BREAST BIOPSY CMBND ANTERPOST COLPORRAPHY W/CYSTO 09/20/2012 COLONOSCOPY 10/29/2021 repeat in 3 years, with MAC at [facility] COLONOSCOPY FLX DX W/COLLJ SPEC WHEN PFRMD 02/22/2006 COLONOSCOPY FLX DX W/COLLJ SPEC WHEN PFRMD 03/23/2016 Colonoscopy, repeat 5 years EGD W/O [facility] SPEC VARICIES INJ 10/29/2021 ESOPHAGOGASTRODUODENOSCOPY TRANSORAL DIAGNOSTIC 12/23/1998 EGD LAPAROSCOPIC APPENDECTOMY 07/12/2007 Early acute LIG/TRNSXJ FLP TUBE ABDL/VAG APPR UNI/BI Tubal ligation PAST SURGICAL HISTORY OF lipoma back, left back PAST SURGICAL HISTORY OF Right 06/02/2016 Dr. Matthew COATS, Right Knee Scope PAST SURGICAL HIS (more content not included)...[facility] 11-23-2024 History of Present illness Narrative* Chetan Bhagat - 11/23/2024 10:08 AM EDT Images from the original note were not included. FOLLOW UP PODIATRIC OFFICE VISIT Chief Complaint: This 69 year old who presents for follow up:total nail matrixectomy of b/l hallux and left 2nd toe Patient doing very well Denies any redness or drainage Does report some pain with dressing changes PAIN EVALUATION 11/23/2024 0959 Pain Level: 4 Pain Location: -- Bilateral feet L>R Description: Sharp Duration Amount of Time: 3 Duration Units: Weeks Frequency: Intermittent Intervention/Comfort measure: -- None Hemoglobin A1C Date Value Ref Range Status 09/14/2024 5.7 (H) 4.3 - 5.6 % Final Comment: [place] [employer] guidelines indicate that patients with HgbA1c in the range 5.7-6.4% are at increased risk for development of diabetes, and intervention by lifestyle modification may be beneficial. HgbA1c greater or equal to 6.5% is considered diagnostic of diabetes. 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 Ferrer Internal hemorrhoids without mention of complication Lumbago 02/20/2008 Mixed hyperlipidemia Mixed stress and urge urinary incontinence 08/03/2012 Osteopenia, senile 08/31/2019 Pain in both lower extremities 09/19/2021 Suspect RLS PMH - PAST MEDICAL HISTORY OF [place] Prolapse of vaginal vault after hysterectomy 07/10/2013 Rosacea Severe obesity (BMI 35.0-39.9) with comorbidity (HCC) 09/21/2023 Sinus headache 08/28/2019 Spondylolisthesis at L4-L5 level 09/23/2021 Symptomatic menopausal or female climacteric states Current Outpatient Medications Medication Sig pantoprazole DR (PROTONIX) 40 mg tablet Take 1 tablet by mouth daily before breakfast. Take on empty stomach, 1/2 hr before meal. Cholecalciferol, Vitamin D3, (VITAMIN D) 25 mcg (1,000 unit) cap Take 2 capsules by mouth once daily. 50 mcg daily budesonide (RHINOCORT ALLERGY) 32 mcg/actuation nasal spray Use 1 [place] in each nostril as needed. ramipril (ALTACE) 5 mg capsule Take 1 capsule by mouth once daily. clobetasol (TEMOVATE) 0.05 % ointment Apply to affected area two times a day. docosahexaenoic acid/epa (FISH OIL ORAL) Take 1,000 mg by mouth once daily. folic acid 1 mg tablet Take 2 mg by mouth once daily. methotrexate 2.5 mg tablet Take 2.5 mg by mouth every Wednesday. Taking 8 tablets weekly ibuprofen (MOTRIN) 800 mg tablet Take 1 tablet by mouth every 8 hours as needed. FOR PAIN. ZINC ORAL Take 1 capsule by mouth once daily. vitamin E mixed/tocotrienol (VITAMIN E COMPLEX ORAL) Take 1 capsule by mouth once daily. olopatadine (PATANOL) 0.1 % ophthalmic solution 1 Drop twice daily. pataday Calcium-Cholecalciferol, D3, (CALCIUM 600 + D) 600-125 mg-unit tab Take one twice a day. sodium chloride-aloe vera (AYR SALINE) topical nasal gel by INTRANASAL route as needed. Artificial Tear, Hypromellose, (SYSTANE GEL) 0.3 % gel 1 Drop as needed (bedtime). Ascorbic Acid 1,000 mg tablet Take 1,000 mg by mouth once daily. fexofenadine hcl(CARMELITA 180 MG TAB) Take one(1) tablet daily. vitamin b complex(B COMPLEX CAP) Take one(1) tablet daily. aspirin(ECOTRIN LOW STRENGTH 81 MG TAB) one tablet 3 times a week multivitamins w-minerals/lut(CENTRUM SILVER TAB) Take one(1) tablet daily. No current facility-administered medications for this visit. ALLERGIES Allergen Reactions Prevacid [Lansopraz* Hives Adhesive Unknown Benadryl [Diphenhyd* Other: See Comments makes her feel weird Fosamax [Alendronat* Other: See Comments GERD Latex Unknown PAST SURGICAL HISTORY Procedure Laterality Date APPENDECTOMY HX BREAST BIOPSY CMBND ANTERPOST COLPORRAPHY W/CYSTO 09/20/2012 COLONOSCOPY 10/29/2021 repeat in 3 years, with MAC at [facility] COLONOSCOPY FLX DX W/COLLJ SPEC WHEN PFRMD 02/22/2006 COLONOSCOPY FLX DX W/COLLJ SPEC WHEN PFRMD 03/23/2016 Colonoscopy, repeat 5 years EGD W/O [facility] SPEC VARICIES INJ 10/29/2021 ESOPHAGOGASTRODUODENOSCOPY TRANSORAL DIAGNOSTIC 12/23/1998 EGD LAPAROSCOPIC APPENDECTOMY 07/12/2007 Early acute LIG/TRNSXJ FLP TUBE ABDL/VAG APPR UNI/BI Tubal ligation PAST SURGICAL HISTORY OF lipoma back, left back PAST SURGICAL HISTORY OF Right 06/02/2016 Dr. Matthew COATS, Right Knee Scope PAST SURGICAL HISTORY OF Left bone spur and cyst removal left thumb SLING OPER STRES INCONTINENCE 09/20/2012 [place] and cystoscopy TONSILLECTOMY HX TONSILLECTOMY PRIMARY/SECONDARY <AGE 12 Tonsillectomy VAG HYST 250 GM/< W/RMVL TUBE&/OVARY 09/20/2012 TVH/BSO, for prolapse w/ Santos's VAGINAL HYSTERECTOMY Physical Exam: OBJECTIVE: Constitutional: Pt is a well developed 69 year old female who is alert, oriented, cooperative and in no apparent distress. Eyes: Following during examination. No redness or drainage. Respiratory: RR normal and nonlabored. Even breathing. No evidence of distress. Psychology: Patient is engaged during conversation. Normal affect and mood. Does not appear depressed or anxious. NVSI unchanged from previous visit. Dermatological: B/l hallux and left 2nd nail bed appears to be healing without signs of infection Musculoskeletal/Orthopaedic: Patient has no pain to palpation of b/l feet ASSESSMENT: (S91.109A) Open wound of toe, initial encounter (primary encounter diagnosis) PLAN: Toes of b/l hallux and left 2nd toe appears to be healing Continue with local wound care until the toes are completely healed Can follow-up prn Patient is very happy with outcome Chetan Bhagat DPM * Carol Hartman MA - 11/23/2024 9:53 AM EDT Patient presents with: Right Foot - Follow Up Left Foot - Follow Up AMB ROOMING INTAKE FLOWSHEET DATA Pain Pain Level: 4 Pain Location: (Bilateral feet L>R) Description: Sharp Duration Amount of Time: 3 Duration Units: Weeks Frequency: Intermittent Intervention/Comfort measure: (None) Patient here for follow up right great toe, left great toe and 2nd toenail avulsions. Patient states she has been continuing epsom salts, dreft and applying polysporin to her toes. Patient feels her pain is from her shoes and the dressings. documented in this encounterUniversity [facility]04-03-2025 NoteHNO ID: [id number] Author: CAROL HARTMAN MA Service: ? Author Type: Ribbon Inker Type: Progress Notes Filed: 11/23/2024 10:15 Note Text: Patient presents with: Right Foot - Follow Up Left Foot - Follow Up AMB ROOMING INTAKE FLOWSHEET DATA Pain Pain Level: 4 Pain Location: (Bilateral feet L>R) Description: Sharp Duration Amount of Time: 3 Duration Units: Weeks Frequency: Intermittent Intervention/Comfort measure: (None) Patient here for follow up right great toe, left great toe and 2nd toenail avulsions. Patient states she has been continuing epsom salts, dreft and applying polysporin to her toes. Patient feels her pain is from her shoes and the dressings.[facility]03-26-2025 NoteHNO ID: [id number] Author: FELICIANO LEAHY MA Service: ? Author Type: Ribbon Inker Type: Progress Notes Filed: 11/15/2024 16:12 Note Text: Scan on 11/14/2024 1:49 PM by Provider, External, PA-C: Neurology Feliciano Leahy [facility]03-26-2025 History of Present illness Narrative* Feliciano Leahy MA - 11/15/2024 4:06 PM EDT Scan on 11/14/2024 1:49 PM by Provider, External, EDIS: Neurology Feliciano Leahy MA documented in this encounterUniversity Hospitals [facility]03-26-2025 Telephone encounter Note * Telephone Encounter - Maci Borja - 11/15/2024 3:24 PM EDT Spoke with patient and transferred to the [facility] for scheduling. Maci Borja [facility]03-26-2025 Miscellaneous Notes* Telephone Encounter - Maci Borja - 11/15/2024 3:24 PM EDT Spoke with patient and transferred to the [facility] for scheduling. Maci Borja * Telephone Encounter - Feliciano Leahy MA - 11/14/2024 10:31 AM EDT Patient notified and voiced understanding. Patient was unable to be transfer at another appointment. Please contact patient to schedule. Feliciano Leahy MA * Telephone Encounter - Kade Fry MD - 11/13/2024 3:46 PM EDT Let patient know her mammogram showed an asymmetry in the right breast that needs additional imaging. Orders placed. documented in this encounterUniversity Hospitals [facility]03-25-2025 Procedure note [facility] Pulmonary Services/Neurology [address] [place] [address] MR#: [id number] Acct: [id number] Name: ELISHA GODFREY Rep #:[id number] : 1955 69 From: Chas Bello MD Referring Dr: Manoj Gamino MD Sta tus: REG CLI Location: [facility] Date: 11/14/24 Sex: F C NCS and/or EMG Patient Report Ordering Doctor: Manoj Gamino DATE OF SERVICE: 11/14/24 Clinical Summary: 69 year old female with symptoms of possible numbness in the fingers of the lefthand. Nerve Conduction Studies Summary: Nerve conduction studies were performed in the left upper extremity. The left median-D2 SNAP distallatency was prolonged. The left median motor conduction velocity was decreased in the forearm segment. Needle Examination Summary: Needle examination of select muscles of the left upper extremity was normal. Impression: This is an abnormal study. There is electrodiagnostic evidence of a mild, left median mononeuropathy at thewrist (carpal tunnel syndrome), with sensory fiber demyelination There is no electrodiagnostic evidence of a left ulnar neuropathy or cervical radiculopathy. Multi Select Codes Neurology Neurology Interp Codes: 58059-16 Musc test done w/n test comp (interp) (1) and 99500-32 Nrv cndj test 7-8 studies (interp) 11/14/24 1346 MD> Date _ Chas Bello MD CC: Dr. Chas Bello MD; Dr. Manoj Gamino MD; Dr. Kade Fry MD ~ Date Dictated: 11/14/24 1131 Date Transcribed: 11/14/24 1131 Professional Wrestler: Signed [facility]03-25-2025 Telephone encounter Note* Telephone Encounter - Feliciano Leahy MA - 11/14/2024 10:31 AM EDT Patient notified and voiced understanding. Patient was unable to be transfer at another appointment. Please contact patient to schedule. Feliciano Leahy MA [facility]03-24-2025 Telephone encounter Note* Telephone Encounter - Kade Fry MD - 11/13/2024 3:46 PM EDT Let patient know her mammogram showed an asymmetry in the right breast that needs additional imaging. Orders placed. [facility]03-24-[facility] History of Present illness Narrative* Todd Zuniga Mammo Tech - 11/13/2024 10:10 AM EDT Radiology Service Progress Note PATIENT NAME: Elisha Godfrey DATE OF SERVICE: November 13, 2024 TIME: 11:00 AM PATIENT IDENTITY VERIFICATION COMPLETED USING TWO (2) IDENTIFIERS: Name and Date of confirmedby patient verbally. FALL SCREENING: Has the patient had 2 falls in the last year or 1 fall with injury or currently using an Ambulatory Assistive Device (Walker, Cane, Wheelchair, Crutches, etc.)? No PATIENT GENDER DATA: Assigned female at . status: : No status:NO. PATIENT RELEVANT IMPLANT DATA REVIEWED: Not Applicable PATIENT PRESENTS WITH AN IMPLANTABLE OR ATTACHED GENERAL HARDWARE SALESPERSON: No RADIOLOGY DEPARTMENT: Mammography PERIPHERAL IV DATA: Not applicable SIGNED BY: Jimbo Silva November 13, 2024 11:00 AM documented in this encounterUniversity Hospitals [facility]03-24-2025 NoteHNO ID: [id number] Author: TODD ZUNIGA Mammo Tech Service: ? Author Type: Plugger Type: Progress Notes Filed: 11/13/2024 11:00 Note Text: Radiology Service Progress Note PATIENT NAME: Elisha Godfrey DATE OF SERVICE: November 13, 2024 TIME: 11:00 AM PATIENT IDENTITY VERIFICATION COMPLETED USING TWO (2) IDENTIFIERS: Name and Date of confirmed by patient verbally. FALL SCREENING: Has the patient had 2 falls in the last year or 1 fall with injury or currently using an Ambulatory Assistive Device (Walker, Cane, Wheelchair, Crutches, etc.)? No PATIENT GENDER DATA: Assigned female at . status: : No status: NO. PATIENT RELEVANT IMPLANT DATA REVIEWED: Not Applicable PATIENT PRESENTS WITH AN IMPLANTABLE OR ATTACHED GENERAL HARDWARE SALESPERSON: No RADIOLOGY DEPARTMENT: Mammography PERIPHERAL IV DATA: Not applicable SIGNED BY: Todd Zuniga [employer] November 13, 2024 11:00 [facility]03-11-2025 NoteHNO ID: [id number] Author: MAUREEN DE LA TORRE LPN Service: ? Author Type: LICENSED NURSE Type: Progress Notes Filed: 10/31/2024 12:51 Note Text: UNIVERSAL PROTOCOL / SAFETY CHECKLIST Procedure to be Performed: Total nail chemical matrixectomy, left great toe, right great toe, left second toe Sign In: A Moment of CARE was completed. Appropriate PPE (Personal Protective Equipment) worn by all providers involved with the procedure. Special equipment not required. Patient/Surrogate Stated/Verified: Patient name, Date of , Relevant allergies, and The intended procedure Time Out: Relevant labs, photos, and/or imaging studies have been reviewed. Intended patient and procedure match the source document(s) (e.g. consent, HANDP, associated studies [imaging, pathology]) match the intended patient and procedure. Consent obtained and matches the intended procedure. Yes. Correct side/site has been marked and visible. Medications required for this procedure are verified. Fire risk assessed and is not applicable. Implants: are not applicable. Sign Out: Specimens not collected. All instruments, equipment, possible retained foreign bodies are accounted for. Yes. The post-procedure plan of care has been communicated to the patient or surrogate.[facility]03-[facility] History of Present illness Narrative* Maureen De La Torre LPN - 10/31/2024 11:32 AM EDT UNIVERSAL PROTOCOL / SAFETY CHECKLIST Procedure to be Performed: Total nail chemical matrixectomy, left great toe, right great toe, left second toe Sign In: A Moment of CARE was completed. Appropriate PPE (Personal Protective Equipment) worn by all providers involved with the procedure. Special equipment not required. Patient/Surrogate Stated/Verified: Patient name, Date of , Relevant allergies, and The intended procedure Time Out: Relevant labs, photos, and/or imaging studies have been reviewed. Intended patient and procedure match the source document(s) (e.g. consent, H&P, associated studies [imaging, pathology]) match the intended patient and procedure. Consent obtained and matches the intended procedure. Yes. Correct side/site has been marked and visible. Medications required for this procedure are verified. Fire risk assessed and is not applicable. Implants: are not applicable. Sign Out: Specimens not collected. All instruments, equipment, possible retained foreign bodies are accounted for. Yes. The post-procedure plan of care has been communicated to the patient or surrogate. * Chetan Bhagat - 10/31/2024 11:13 AM EDT FOLLOW UP PODIATRIC OFFICE VISIT Chief Complaint: This 69 year old who presents for follow up:nail thickening of b/l hallux and [id number] toe Patient presents to clinic for follow-up b/l hallux and left 2nd toenail thickening These cause her pain and at times, has developed infection She has no infection currently She is here today requesting nail removal PAIN EVALUATION No data found in the last 1 encounters. Hemoglobin A1C Date Value Ref Range Status 09/14/2024 5.7 (H) 4.3 - 5.6 % Final Comment: [place] [employer] guidelines indicate that patients with HgbA1c in the range 5.7-6.4% are at increased risk for development of diabetes, and intervention by lifestyle modification may be beneficial. HgbA1c greater or equal to 6.5% is considered diagnostic of diabetes. 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 Ferrer Internal hemorrhoids without mention of complication Lumbago 02/20/2008 Mixed hyperlipidemia Mixed stress and urge urinary incontinence 08/03/2012 Osteopenia, senile 08/31/2019 Pain in both lower extremities 09/19/2021 Suspect RLS PMH - PAST MEDICAL HISTORY OF [place] Prolapse of vaginal vault after hysterectomy 07/10/2013 Rosacea Severe obesity (BMI 35.0-39.9) with comorbidity (HCC) 09/21/2023 Sinus headache 08/28/2019 Spondylolisthesis at L4-L5 level 09/23/2021 Symptomatic menopausal or female climacteric states Current Outpatient Medications Medication Sig pantoprazole DR (PROTONIX) 40 mg tablet Take 1 tablet by mouth daily before breakfast. Take on empty stomach, 1/2 hr before meal. Cholecalciferol, Vitamin D3, (VITAMIN D) 25 mcg (1,000 unit) cap Take 2 capsules by mouth once daily. 50 mcg daily budesonide (RHINOCORT ALLERGY) 32 mcg/actuation nasal spray Use 1 [place] in each nostril as needed. ramipril (ALTACE) 5 mg capsule Take 1 capsule by mouth once daily. clobetasol (TEMOVATE) 0.05 % ointment Apply to affected area two times a day. docosahexaenoic acid/epa (FISH OIL ORAL) Take 1,000 mg by mouth once daily. folic acid 1 mg tablet Take 2 mg by mouth once daily. methotrexate 2.5 mg tablet Take 2.5 mg by mouth every Wednesday. Taking 8 tablets weekly ibuprofen (MOTRIN) 800 mg tablet Take 1 tablet by mouth every 8 hours as needed. FOR PAIN. ZINC ORAL Take 1 capsule by mouth once daily. vitamin E mixed/tocotrienol (VITAMIN E COMPLEX ORAL) Take 1 capsule by mouth once daily. olopatadine (PATANOL) 0.1 % ophthalmic solution 1 Drop twice daily. pataday Calcium-Cholecalciferol, D3, (CALCIUM 600 + D) 600-125 mg-unit tab Take one twice a day. sodium chloride-aloe vera (AYR SALINE) topical nasal gel by INTRANASAL route as needed. Artificial Tear, Hypromellose, (SYSTANE GEL) 0.3 % gel 1 Drop as needed (bedtime). Ascorbic Acid 1,000 mg tablet Take 1,000 mg by mouth once daily. fexofenadine hcl(CARMELITA 180 MG TAB) Take one(1) tablet daily. vitamin b complex(B COMPLEX CAP) Take one(1) tablet daily. aspirin(ECOTRIN LOW STRENGTH 81 MG TAB) one tablet 3 times a week multivitamins w-minerals/lut(CENTRUM SILVER TAB) Take one(1) tablet daily. No current facility-administered medications for this visit. ALLERGIES Allergen Reactions Prevacid [Lansopraz* Hives Adhesive Unknown Benadryl [Diphenhyd* Other: See Comments makes her feel weird Fosamax [Alendronat* Other: See Comments GERD Latex Unknown PAST SURGICAL HISTORY Procedure Laterality Date APPENDECTOMY HX BREAST BIOPSY CMBND ANTERPOST COLPORRAPHY W/CYSTO 09/20/2012 COLONOSCOPY 10/29/2021 repeat in 3 years, with MAC at [facility] COLONOSCOPY FLX DX W/COLLJ SPEC WHEN PFRMD 02/22/2006 COLONOSCOPY FLX DX W/COLLJ SPEC WHEN PFD 03/23/2016 Colonoscopy, repeat 5 years EGD W/O [facility] SPEC VARICIES INJ 10/29/2021 ESOPHAGOGASTRODUODENOSCOPY TRANSORAL DIAGNOSTIC 12/23/1998 EGD LAPAROSCOPIC APPENDECTOMY 07/12/2007 Early acute LIG/TRNSXJ FLP TUBE ABDL/VAG APPR UNI/BI Tubal ligation PAST SURGICAL HISTORY OF lipoma back, left back PAST SURGICAL HISTORY OF Right 06/02/2016 Dr. Matthew COATS, Right Knee Scope PAST SURGICAL HISTORY OF Left bone spur and cyst removal left thumb SLING OPER STRES INCONTINENCE 09/20/2012 [place] and cystoscopy TONSILLECTOMY HX TONSILLECTOMY PRIMARY/SECONDARY <AGE 12 Tonsillectomy VAG HYST 250 GM/< W/RMVL TUBE&/OVARY 09/20/2012 [facility]/BSO, for prolapse w/ Santos's VAGINAL HYSTERECTOMY Physical Exam: OBJECTIVE: Constitutional: Pt is a well developed 69 year old female who is alert, oriented, cooperative and in no apparent distress. Eyes: Following during examination. No redness or drainage. Respiratory: RR normal and nonlabored. Even breathing. No evidence of distress. Psychology: Patient is engaged during conversation. Normal affect and mood. Does not appear depressed or anxious. Vascular: Non-Invasive Vascular Laboratory [facility] Lower Extremity Arterial Physiology Study Bilateral/Complete Date of service/time: 10/17/2024 9:58:37 AM Name: MRS. ELISHA GODFREY Date of : 1955 Age: 69 years Gender: F Clinical Indication Absent pulses. TECHNIQUE -------- An arterial physiological examination was performed, including measurement of blood pressures using continuous wave Doppler and recording of plethysmographic with or without Doppler waveforms at the below-mentioned limb segments. FINDINGS -------- RIGHT SIDE AT REST Right Doppler Waveforms Dorsalis pedis: Multiphasic. Post tibial: Multiphasic. Right Pressures Brachial: 153 mmHg Ankle dorsalis pedis: 157 mmHg KIRAN: 1.02 Ankle posterior tibial: 174 mmHg KIRAN: 1.13 Digit: 108 mmHg Right PVR Waveforms Ankle: Normal. Digit: Mildly dampened. LEFT SIDE AT REST Left Doppler Waveforms Dorsalis pedis: Multiphasic. Post tibial: Multiphasic. Left Pressures Brachial: 154 mmHg Ankle dorsalis pedis: 154 mmHg KIRAN: 1.00 Ankle posterior tibial: 172 mmHg KIRAN: 1.12 Digit: 109 mmHg Left PVR Waveforms Ankle: Normal. Digit: Mildly dampened. IMPRESSION RIGHT SIDE Resting right ankle brachial index: 1.13 Right toe brachial index: 0.70 Normal ankle brachial index at rest in the right leg. Normal toe brachial index at rest in the right leg. Right ankle: Normal at rest. LEFT SIDE Resting left ankle brachial index: 1.12 Left toe brachial index: 0.71 Normal ankle brachial index at rest in the left leg. Normal toe brachial index at rest in the left leg. Left ankle: Normal at rest. Technologist: Sarah Ferrera RVT, [facility] Ordering physician: CHETAN BHAGAT Interpreting physician: MOOSE Daugherty DO Dermatological: B/l hallux and left 2nd toenail is severely dystrophic, deformed, painful. Musculoskeletal/Orthopaedic: Patient has pain to palpation of b/l hallux and left 2nd toenail ASSESSMENT: (L60.3) Onychodystrophy (primary encounter diagnosis) PLAN: Discussed dystrophic toenails of b/l hallux and left 2nd toe. Options include periodic debridement vs removal. Could even consider topical vs oral medication This patient has elected to proceed with total nail chemical matrixectomy of b/l hallux and left 2nd toe She is on methotrexate for RA. We discussed options to reschedule procedure to take time to come off this medication. We reviewed the minor procedure that is being performed. We discussed pro/cons ofcoming off methotrexate. She has elected to proceed with removal of toenails today without holding methotrexate Reviewed pvr. She has adequate perfusion to heal a toenail procedure Discussed risks of procedure not limited to infection, pain, swelling, bleeding, slow wound healing, blistering from chemical, recurrent nail growth, loss of toe. Patient consents to proceed with nail procedure. Discussed risks of toenail procedure not limited to infection, pain, swelling, bleeding, painful scarring, recurrence, need for revised procedure. Patient consented to proceed. Patient was properly identified by name and procedure. The left hallux was then injected with 3 cc of 1% lidocaine plain. The toe was then prepped and draped in the usual aseptic technique. A digital tournicot was applied to the toe. The entire border was then freed and removed. Careful inspection was performed to assureno remaining spicule present. 3 applications of phenol were then administered x 30 seconds each followed by alcohol rinse. Sterile dressing was then applied consisting of amerigel, guaze, graciela and co ban. Tournicot was removed and hyperemic response was noted. Patient tolerated well. Patient will f/u in 1 weeks. Discussed risks of toenail procedure not limited to infection, pain, swelling, bleeding, painful scarring, recurrence, need for revised procedure. Patient consented to proceed. Patient was properly identified by name and procedure. The right hallux was then injected with 3 cc of 1% lidocaine plain.The toe was then prepped and draped in the usual aseptic technique. A digital tournicot was appliedto the toe. The entire border was then freed and removed. Careful inspection was performed to assure no remaining spicule present. 3 applications of phenol were then administered x 30 seconds each followed by alcohol rinse. Sterile dressing was then applied consisting of amerigel, guaze, graciela and c oban. Tournicot was removed and hyperemic response was noted. Patient tolerated well. Patient will f/u in 1 weeks. Discussed risks of toenail procedure not limited to infection, pain, swelling, bleeding, painful scarring, recurrence, need for revised procedure. Patient consented to proceed. Patient was properly identified by name and procedure. The left 2nd toe was then injected with 2.5 cc of 1% lidocaine plain. The toe was then prepped and draped in the usual aseptic technique. A digital tournicot was applied to the toe. The entire border was then freed and removed. Careful inspection was performed to assure no remaining spicule present. 3 applications of phenol were then administered x 30 seconds each followed by alcohol rinse. Sterile dressing was then applied consisting of amerigel, guaze, graciela and coban. Tournicot was removed and hyperemic response was noted. Patient tolerated well. Patient will f/u in 1 weeks. Chetan Bhagat DPM * Maureen De La Torre LPN - 10/31/2024 10:36 AM EDT AMB ROOMING INTAKE FLOWSHEET DATA Patient presents with: Left Foot - Established Patient, Procedure: Great toe and 2nd toe Right Foot - Established Patient, Procedure: Great toe Maureen De La Torre LPN documented in this encounterUniversity [facility]als [facility]03-11-2025 NoteHNO ID: [id number] Author: CHETAN BHAGAT, ? Service: ? Author Type: Physician Type: Progress Notes Filed: 10/31/2024 12:51 Note Text: FOLLOW UP PODIATRIC OFFICE VISIT Chief Complaint: This 69 year old who presents for follow up:nail thickening of b/l hallux and left 2nd toe Patient presents to clinic for follow-up b/l hallux and left 2nd toenail thickening These cause her pain and at times, has developed infection She has no infection currently She is here today requesting nail removal PAIN EVALUATION No data found in the last 1 encounters. Hemoglobin A1C Date Value Ref Range Status 09/14/2024 5.7 (H) 4.3 - 5.6 % Final Comment: [place] [employer] guidelines indicate that patients with HgbA1c in the range 5.7-6.4% are at increased risk for development of diabetes, and intervention by lifestyle modification may be beneficial. HgbA1c greater or equal to 6.5% is considered diagnostic of diabetes. 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 Ferrer Internal hemorrhoids without mention of complication Lumbago 02/20/2008 Mixed hyperlipidemia Mixed stress and urge urinary incontinence 08/03/2012 Osteopenia, senile 08/31/2019 Pain in both lower extremities 09/19/2021 Suspect RLS PMH - PAST MEDICAL HISTORY OF [place] Prolapse of vaginal vault after hysterectomy 07/10/2013 Rosacea Severe obesity (BMI 35.0-39.9) with comorbidity (HCC) 09/21/2023 Sinus headache 08/28/2019 Spondylolisthesis at L4-L5 level 09/23/2021 Symptomatic menopausal or female climacteric states Current Outpatient Medications Medication Sig pantoprazole DR (PROTONIX) 40 mg tablet Take 1 tablet by mouth daily before breakfast. Take on empty stomach, 1/2 hr before meal. Cholecalciferol, Vitamin D3, (VITAMIN D) 25 mcg (1,000 unit) cap Take 2 capsules by mouth once daily. 50 mcg daily budesonide (RHINOCORT ALLERGY) 32 mcg/actuation nasal spray Use 1 [place] in each nostril as needed. ramipril (ALTACE) 5 mg capsule Take 1 capsule by mouth once daily. clobetasol (TEMOVATE) 0.05 % ointment Apply to affected area two times a day. docosahexaenoic acid/epa (FISH OIL ORAL) Take 1,000 mg by mouth once daily. folic acid 1 mg tablet Take 2 mg by mouth once daily. methotrexate 2.5 mg tablet Take 2.5 mg by mouth every Wednesday. Taking 8 tablets weekly ibuprofen (MOTRIN) 800 mg tablet Take 1 tablet by mouth every 8 hours as needed. FOR PAIN. ZINC ORAL Take 1 capsule by mouth once daily. vitamin E mixed/tocotrienol (VITAMIN E COMPLEX ORAL) Take 1 capsule by mouth once daily. olopatadine (PATANOL) 0.1 % ophthalmic solution 1 Drop twice daily. pataday Calcium-Cholecalciferol, D3, (CALCIUM 600 + D) 600-125 mg-unit tab Take one twice a day. sodium chloride-aloe vera (AYR SALINE) topical nasal gel by INTRANASAL route as needed. Artificial Tear, Hypromellose, (SYSTANE GEL) 0.3 % gel 1 Drop as needed (bedtime). Ascorbic Acid 1,000 mg tablet Take 1,000 mg by mouth once daily. fexofenadine hcl(CARMELITA 180 MG TAB) Take one(1) tablet daily. vitamin b complex(B COMPLEX CAP) Take one(1) tablet daily. aspirin(ECOTRIN LOW STRENGTH 81 MG TAB) one tablet 3 times a week multivitamins w-minerals/lut(CENTRUM SILVER TAB) Take one(1) tablet daily. No current facility-administered medications for this visit. ALLERGIES Allergen Reactions Prevacid [Lansopraz* Hives Adhesive Unknown Benadryl [Diphenhyd* Other: See Comments makes her feel weird Fosamax [Alendronat* Other: See Comments GERD Latex Unknown PAST SURGICAL HISTORY Procedure Laterality Date APPENDECTOMY HX BREAST BIOPSY CMBND ANTERPOST COLPORRAPHY W/CYSTO 09/20/2012 COLONOSCOPY 10/29/2021 repeat in 3 years, with MAC at [facility] COLONOSCOPY FLX DX W/COLLJ SPEC WHEN PFRMD 02/22/2006 COLONOSCOPY FLX DX W/COLLJ SPEC WHEN PFRMD 03/23/2016 Colonoscopy, repeat 5 years EGD W/O [facility] SPEC VARICIES INJ 10/29/2021 ESOPHAGOGASTRODUODENOSCOPY TRANSORAL DIAGNOSTIC 12/23/1998 EGD LAPAROSCOPIC APPENDECTOMY 07/12/2007 Early acute LIG/TRNSXJ FLP TUBE ABDL/VAG APPR UNI/BI Tubal ligation PAST SURGICAL HISTORY OF lipoma back, left back PAST SURGICAL HISTORY OF Right 06/02/2016 Dr. Matthew COATS, Right Knee Scope PAST SURGICAL HISTORY OF Left bone spur and cyst removal left thumb SLING O (more content not included)...[facility]03-11-2025 Instructions* Patient Instructions* aSyra Clifford RN - 10/31/2024 11:02 AM EDT Post-Op Nail Instructions Minimize activity until the anesthesia wears off (about 2-8 hours). Increase activity to tolerance Remove bandage tomorrow Soak affected toe/foot in epsom salts for 15-20 minutes twice daily After soaking, apply antibiotic ointment (OTC Neosporin) to affected toe and re bandage OTC Ibuprofen if having pain, provided you have no allergies or intolerance to NSAIDS Mild drainage, redness, and blood is expected, but if you expeirence severe pain, increase in drainage, swelling, or red streaking please contact our office immediately Feel free to contact office as well if you have any questions/concerns [phone], ask for Podiatry Nurse documented in this encounterUniversity Hospitals [facility]03-11-2025 NoteHNO ID: [id number] Author: MAUREEN DE LA TORRE LPN Service: ? Author Type: LICENSED NURSE Type: Progress Notes Filed: 10/31/2024 12:51 Note Text: AMB ROOMING INTAKE FLOWSHEET DATA Patient presents with: Left Foot - Established Patient, Procedure: Great toe and 2nd toe Right Foot - Established Patient, Procedure: Great toe [facility] Telephone encounter Note* Telephone Encounter - Maureen De La Torre LPN - 10/18/2024 8:44 AM EST Patient notified of results and provider's instructions. Patient verbalizes understanding. Maureen De La Torre LPN [facility] Work Phone: [phone]) 282-447502-26-2025 Miscellaneous Notes* Telephone Encounter - Maureen De La Torre LPN - 10/18/2024 8:44 AM EST Patient notified of results and provider's instructions. Patient verbalizes understanding. Maureen De La Torre LPN documented in this encounterUniversity Hospitals [facility]02-24-2025 NoteHNO ID: [id number] Author: CHETAN BHAGAT, ? Service: ? Author Type: Physician Type: Progress Notes Filed: 10/16/2024 11:28 Note Text: Consultation requested by Dr. Fry for an opinion regarding nail deformity. My final recommendations will be communicated back to the requesting physician by way of shared Medical record or letter to requesting physician via [place] mail. Initial Podiatric Office Visit: Chief Complaint: This 69 year old female who presents with chief complaint:deformed toenail of b/l hallux and left 2nd toe HPI Patient presents to clinic for evaluation of b/l feet. Her primary issue is painful/dystrophic toenail of b/l hallux and left 2nd toe The nails have been deformed for 6-7 years. Does report prior trauma to the nails. Believes a piece of wood fell on her toe. Has tried apple cider vinegar soaks but no improvement. Here to discuss options. PAIN EVALUATION No data found in the last 1 encounters. Hemoglobin A1C (%) Date Value 09/14/2024 5.7 09/20/2023 5.5 09/09/2018 5.6 08/17/2017 6.1 08/20/2016 6.2 HBA1C, [place] (%) Date Value 03/07/2011 5.5 Hemoglobin A1C (POCT) (%) Date Value 09/21/2022 5.5 PCP: Kade Fry MD PAST MEDICAL HISTORY Diagnosis Date BAUTISTA positive 09/25/2021 Arthritis Atrophic vaginitis 08/03/2012 Calcaneal spur 07/14/2005 Cystocele 07/17/2013 Diverticulosis of colon (without mention of hemorrhage) Eczema 08/28/2019 Elevated blood sugar 09/21/2022 Essential hypertension 12/14/2009 Female stress incontinence 07/17/2013 Fibromyalgia 08/28/2019 GERD without esophagitis 08/28/2019 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 Ferrer Internal hemorrhoids without mention of complication Lumbago 02/20/2008 Mixed hyperlipidemia Mixed stress and urge urinary incontinence 08/03/2012 Osteopenia, senile 08/31/2019 Pain in both lower extremities 09/19/2021 Suspect RLS PMH - PAST MEDICAL HISTORY OF [place] Prolapse of vaginal vault after hysterectomy 07/10/2013 Rosacea Severe obesity (BMI 35.0-39.9) with comorbidity (HCC) 09/21/2023 Sinus headache 08/28/2019 Spondylolisthesis at L4-L5 level 09/23/2021 Symptomatic menopausal or female climacteric states Current Outpatient Medications Medication Sig pantoprazole DR (PROTONIX) 40 mg tablet Take 1 tablet by mouth daily before breakfast. Take on empty stomach, 1/2 hr before meal. Cholecalciferol, Vitamin D3, (VITAMIN D) 25 mcg (1,000 unit) cap Take 2 capsules by mouth once daily. 50 mcg daily budesonide (RHINOCORT ALLERGY) 32 mcg/actuation nasal spray Use 1 [place] in each nostril as needed. ramipril (ALTACE) 5 mg capsule Take 1 capsule by mouth once daily. clobetasol (TEMOVATE) 0.05 % ointment Apply to affected area two times a day. docosahexaenoic acid/epa (FISH OIL ORAL) Take 1,000 mg by mouth once daily. folic acid 1 mg tablet Take 2 mg by mouth once daily. methotrexate 2.5 mg tablet Take 2.5 mg by mouth every Wednesday. Taking 8 tablets weekly ibuprofen (MOTRIN) 800 mg tablet Take 1 tablet by mouth every 8 hours as needed. FOR PAIN. ZINC ORAL Take 1 capsule by mouth once daily. vitamin E mixed/tocotrienol (VITAMIN E COMPLEX ORAL) Take 1 capsule by mouth once daily. olopatadine (PATANOL) 0.1 % ophthalmic solution 1 Drop twice daily. pataday Calcium-Cholecalciferol, D3, (CALCIUM 600 + D) 600-125 mg-unit tab Take one twice a day. sodium chloride-aloe vera (AYR SALINE) topical nasal gel by INTRANASAL route as needed. Artificial Tear, Hypromellose, (SYSTANE GEL) 0.3 % gel 1 Drop as needed (bedtime). Ascorbic Acid 1,000 mg tablet Take 1,000 mg by mouth once daily. fexofenadine hcl(CARMELITA 180 MG TAB) Take one(1) tablet daily. vitamin b complex(B COMPLEX CAP) Take one(1) tablet daily. aspirin(ECOTRIN LOW STRENGTH 81 MG TAB) one tablet 3 times a week multivitamins w-minerals/lut(CENTRUM SILVER TAB) Take one(1) tablet daily. No current facility-administered medications for this visit. ALLERGIES Allergen Reactions Prevacid [Lansopraz* Hives Adhesive Unknown Benadryl [Diphenhyd* Other: See Comments makes her feel weird Fosamax [Alendronat* Other: See Comments GERD Latex Unknown PAST SURGICAL HISTORY Procedure Laterality Date APPENDECTOMY HX BREAST BIOPSY CMBND ANTERPOST COLPORRAPHY W/CYSTO 09/20/2012 COLONOSCOPY 10/29/2021 repeat in 3 years, with MAC at [facility] COLONOSCOPY FLX DX W/COLLJ SPEC WHEN PFRMD 02/22/2006 COLONOSCOPY FLX DX W/COLLJ SPEC WHEN PFRMD 03/23/2016 Colonoscopy, repeat 5 years EGD W/O [facility] SPEC VARICIES INJ 10/29/2021 ESOPHAGOGASTRODUODENOSCOPY TRANSORAL DIAGNOSTIC 12/23/1998 EGD LAPAROSCOPIC APPENDECTOMY 07/12/2007 Early acute LIG/TRNSXJ FLP TUBE ABDL/VAG APPR UN (more content not included)...[facility]02-[facility] History of Present illness Narrative* [place]athe[place]an - 10/16/2024 11:08 AM EST Consultation requested by Dr. Fry for an opinion regarding nail deformity. My final recommendations will be communicated back to the requesting physician by way of shared Medical record or letter to requesting physician via [place] mail. Initial Podiatric Office Visit: Chief Complaint: This 69 year old female who presents with chief complaint:deformed toenail of b/l hallux and left 2nd toe HPI Patient presents to clinic for evaluation of b/l feet. Her primary issue is painful/dystrophic toenail of b/l hallux and left 2nd toe The nails have been deformed for 6-7 years. Does report prior trauma to the nails. Believes a piece of wood fell on her toe. Has tried apple cider vinegar soaks but no improvement. Here to discuss options. PAIN EVALUATION No data found in the last 1 encounters. Hemoglobin A1C (%) Date Value 09/14/2024 5.7 09/20/2023 5.5 09/09/2018 5.6 08/17/2017 6.1 08/20/2016 6.2 HBA1C, [place] (%) Date Value 03/07/2011 5.5 Hemoglobin A1C (POCT) (%) Date Value 09/21/2022 5.5 PCP: Kade Fry MD PAST MEDICAL HISTORY Diagnosis Date BAUTISTA positive 09/25/2021 Arthritis Atrophic vaginitis 08/03/2012 Calcaneal spur 07/14/2005 Cystocele 07/17/2013 Diverticulosis of colon (without mention of hemorrhage) Eczema 08/28/2019 Elevated blood sugar 09/21/2022 Essential hypertension 12/14/2009 Female stress incontinence 07/17/2013 Fibromyalgia 08/28/2019 GERD without esophagitis 08/28/2019 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 Ferrer Internal hemorrhoids without mention of complication Lumbago 02/20/2008 Mixed hyperlipidemia Mixed stress and urge urinary incontinence 08/03/2012 Osteopenia, senile 08/31/2019 Pain in both lower extremities 09/19/2021 Suspect RLS PMH - PAST MEDICAL HISTORY OF [place] Prolapse of vaginal vault after hysterectomy 07/10/2013 Rosacea Severe obesity (BMI 35.0-39.9) with comorbidity (HCC) 09/21/2023 Sinus headache 08/28/2019 Spondylolisthesis at L4-L5 level 09/23/2021 Symptomatic menopausal or female climacteric states Current Outpatient Medications Medication Sig pantoprazole DR (PROTONIX) 40 mg tablet Take 1 tablet by mouth daily before breakfast. Take on empty stomach, 1/2 hr before meal. Cholecalciferol, Vitamin D3, (VITAMIN D) 25 mcg (1,000 unit) cap Take 2 capsules by mouth once daily. 50 mcg daily budesonide (RHINOCORT ALLERGY) 32 mcg/actuation nasal spray Use 1 [place] in each nostril as needed. ramipril (ALTACE) 5 mg capsule Take 1 capsule by mouth once daily. clobetasol (TEMOVATE) 0.05 % ointment Apply to affected area two times a day. docosahexaenoic acid/epa (FISH OIL ORAL) Take 1,000 mg by mouth once daily. folic acid 1 mg tablet Take 2 mg by mouth once daily. methotrexate 2.5 mg tablet Take 2.5 mg by mouth every Wednesday. Taking 8 tablets weekly ibuprofen (MOTRIN) 800 mg tablet Take 1 tablet by mouth every 8 hours as needed. FOR PAIN. ZINC ORAL Take 1 capsule by mouth once daily. vitamin E mixed/tocotrienol (VITAMIN E COMPLEX ORAL) Take 1 capsule by mouth once daily. olopatadine (PATANOL) 0.1 % ophthalmic solution 1 Drop twice daily. pataday Calcium-Cholecalciferol, D3, (CALCIUM 600 + D) 600-125 mg-unit tab Take one twice a day. sodium chloride-aloe vera (AYR SALINE) topical nasal gel by INTRANASAL route as needed. Artificial Tear, Hypromellose, (SYSTANE GEL) 0.3 % gel 1 Drop as needed (bedtime). Ascorbic Acid 1,000 mg tablet Take 1,000 mg by mouth once daily. fexofenadine hcl(CARMELITA 180 MG TAB) Take one(1) tablet daily. vitamin b complex(B COMPLEX CAP) Take one(1) tablet daily. aspirin(ECOTRIN LOW STRENGTH 81 MG TAB) one tablet 3 times a week multivitamins w-minerals/lut(CENTRUM SILVER TAB) Take one(1) tablet daily. No current facility-administered medications for this visit. ALLERGIES Allergen Reactions Prevacid [Lansopraz* Hives Adhesive Unknown Benadryl [Diphenhyd* Other: See Comments makes her feel weird Fosamax [Alendronat* Other: See Comments GERD Latex Unknown PAST SURGICAL HISTORY Procedure Laterality Date APPENDECTOMY HX BREAST BIOPSY CMBND ANTERPOST COLPORRAPHY W/CYSTO 09/20/2012 COLONOSCOPY 10/29/2021 repeat in 3 years, with MAC at [facility] COLONOSCOPY FLX DX W/COLLJ SPEC WHEN PFRMD 02/22/2006 COLONOSCOPY FLX DX W/COLLJ SPEC WHEN PFRMD 03/23/2016 Colonoscopy, repeat 5 years EGD W/O [facility] SPEC VARICIES INJ 10/29/2021 ESOPHAGOGASTRODUODENOSCOPY TRANSORAL DIAGNOSTIC 12/23/1998 EGD LAPAROSCOPIC APPENDECTOMY 07/12/2007 Early acute LIG/TRNSXJ FLP TUBE ABDL/VAG APPR UNI/BI Tubal ligation PAST SURGICAL HISTORY OF lipoma back, left back PAST SURGICAL HISTORY OF Right 06/02/2016 Dr. Matthew COATS, Right Knee Scope PAST SURGICAL HISTORY OF Left bone spur and cyst removal left thumb SLING OPER STRES INCONTINENCE 09/20/2012 [place] and cystoscopy TONSILLECTOMY HX TONSILLECTOMY PRIMARY/SECONDARY <AGE 11 Tonsillectomy VAG HYST 250 GM/< W/RMVL TUBE&/OVARY 09/20/2012 TVH/BSO, for prolapse w/ Santos's VAGINAL HYSTERECTOMY FAMILY HISTORY Problem Relation Age of Onset Diabetes Mother Hypertension Mother Arthritis Mother Cancer Mother uterine cancer Allergies Mother other (cholesterol) Mother Heart Father at 45 other (Heart) Father Uterine Cancer Sister Dementia Sister Diabetes Brother Blood Disease Brother possible clotting disorder Heart Brother at 56 or 58 Kidney Disease Brother Diabetes Brother Gout Brother Allergies Brother Asthma Brother GERD Brother Blood Disease Brother possible clotting issue other (lyme's disease) Brother Cancer Maternal Grandmother colon Thyroid Maternal Grandmother Allergies Son Cancer Maternal Aunt breast Allergies Other nephew Social History Tobacco Use Smoking status: Never Smokeless tobacco: Never Vaping Use Vaping status: Never Used Substance Use Topics Alcohol use: No Drug use: No REVIEW OF SYSTEMS GENERAL: Negative for Malaise, significant weight loss, fever RESPIRATORY: Negative for cough, wheezing and shortness of breath CARDIOVASCULAR: Negative for chest pain, leg swelling and palpitations GI: Negative for abdominal discomfort, blood in stools or black stools and change in bowel habits : Negative for dysuria, frequency and incontinence MUSCULOSKELETAL: Negative for joint pain or swelling, back pain, and muscle pain. SKIN: Negative for lesions, rash, and itching. HEMATOLOGY/LYMPHOLOGY Negative for prolonged bleeding, bruising easily, and swollen nodes. ENDOCRINE: Negative for cold or heat intolerance, polyuria, polydipsia and goiter. NEURO: negative Physical Exam: Constitutional: Pt is a well developed 69 year old female who is alert, oriented and cooperative Eyes: Following during examination. No redness or drainage. Respiratory: RR normal and nonlabored. Even breathing. No evidence of distress or shortness of breath. Psychology: Patient is engaged during conversation. Normal affect and mood. Does not appear depressed or anxious during encounter. Vascular: Dorsalis pedis and posterior tibial pulses nonpalpable b/l Capillary Fill time < 5 seconds to digits 1-5 b/l Skin temperature warm to cool proximal to distal b/l Hair growth present to digits Neurological: intact light touch/epicritic sensation Vibratory sensation intact to hallux b/l intact protective sensation no significant neurological deficits Dermatological: Nails 1 b/l and left 2nd toenail are yellow and deformed. Remaining nails appear normal. Webspaces clean and dry 1-4 b/l. Skin appears well hydrated and supple. good color, texture, turgor. No open lesions present. No callosities present. Musculoskeletal/Orthopaedic: Patient has no pain to palpation of b/l feet Radiographs: n/a ASSESSMENT: (L60.3) Onychodystrophy (primary encounter diagnosis) (M79.674, M79.675) Pain in toes of both feet (R09.89) Diminished pulses in lower extremity PLAN: A review of the patient's PMH and Podiatric physical exam was completed. We discussed the possible etiologies of discolored, dystrophic, and thickened nails including fungus, yeast, mold as well as in some instances, prior trauma, or mechanical causes such as repetitive microtrauma in shoe gear. Wediscussed topical medication for discolored toenails which has very low success but no major side effects. We discussed oral medication. Patient will need hepatic testing prior to use. Patient informed of risks associated with Lamisil. We discussed removal of toenails. Patient does report prior trauma where wood fell on her foot and also reports having part of the great toenail removed in the past. I favor more trauma. If she wishes to have removed via chemical matrixectomy, I would obtain pvr prior as her foot is cold to touch and pulses are nonpapable. Offered debridement. Patient declined today. Consider removal of toenails pending pvr Chetan Bhagat DPM Podiatry [address] [facility] [address] Dept: [phone] Dept * Sayra Clifford RN - 10/16/2024 10:53 AM EST Patient presents with: Left Foot - New, Pain, Nail Fungus Right Foot - New, Pain, Nail Fungus Patient presents for possible nail fungus that has been ongoing for about 6-7 years. Currently affecting right big toenail and left 1st and 2nd. Had used apple cider vinegar soaks in the past. Statesthat nails seem loose which causes some discomfort. Nails are also thick and discolored and have been hard to trim so they are long which is also uncomfortable. documented in this encounterUniversity [facility] NoteHNO ID: [id number] Author: SAYRA CLIFFORD RN Service: ? Author Type: Registered Nurse Type: Progress Notes Filed: 10/16/2024 11:28 Note Text: Patient presents with: Left Foot - New, Pain, Nail Fungus Right Foot - New, Pain, Nail Fungus Patient presents for possible nail fungus that has been ongoing for about 6-7 years. Currently affecting right big toenail and left 1st and 2nd. Had used apple cider vinegar soaks in the past. States that nails seem loose which causes some discomfort. Nails are also thick and discolored and have been hard to trim so they are long which is also uncomfortable.[facility] 10-16-2024 NoteHNO ID: [id number] Author: MANOJ GAMINO MD Service: ? Author Type: Physician Type: Progress Notes Filed: 10/16/2024 12:26 Note Text: Manoj Gamino MD Department of Orthopaedics Orthopaedics [address] [facility] [address] Dept: [phone] Dept October 16, 2024 CHIEF COMPLAINT: New and Numbness of the Left Hand and Trigger Finger of the Left Thumb (Referred by Dr. Fry) HPI Patient here for evaluation left hand numbness and tingling. Her left thumb has also been locking. Patient states she has had the numbness and tingling for about 3 months. 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 Patient states her 4th finger will turn purple like it is bruised and them it will turn white. Patient states her thumb does lock at times. It is worse in the mornings and evenings. She has to help unlock it. Taking no med's for the pain. Patient is right handed dominant and is retired. 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 I suspect she may have a little bit of rainout secondary to her prior rheumatologic issues but rewarming and some gentle massage sounds like it is keeping it at bay. She certainly has a bit of a trigger finger and we will give her a cortisone injection for that today. I have also ordered an electrodiagnostic exam of her left upper extremity due to her numbness, tingling, nighttime symptoms, etc. FOLLOW UP INSTRUCTIONS: After nerve testing OBJECTIVE: Ms. Elisha Godfrey is a pleasant 69 year old in no apparent distress. Gen:There were no vitals taken for this visit. nl development, obese, no deformities ENT: Normocephalic, normal hearing, moist mucosa CV: Pulses:Radial= 2+ and symmetric, capillary refill < 2 secs, no peripheral edema/varicosities Skin: no rash, bruising or lesions. Good turgor. Psych: cooperative and appropriate, alert and oriented x 3, good mood and affect. Musculoskeletal: No discoloration today. TTP at thumb A1 jax. Clicking without any catching of the digit. Mild, diminished light touch sensation in the median nerve distribution in the left hand. Positive Tinel's and positive median nerve compression testing. IMAGING: IMPRESSION: No acute osseous abnormality Professional Wrestler: PATO Transcribe Date/Time: Aug 24 2023 10:23A Dictated by : ZULMA ROE MD This examination was interpreted and the report reviewed and electronically signed by: ZULMA ROE MD on Aug 24 2023 10:24AM EST Results-Findings * * *Final Report* * * DATE OF EXAM: Aug 24 2023 10:14AM WOX [id number] - XR HAND 3V PA/LAT/OBL LT / PROCEDURE REASON: multiple diagnoses * * * * Physician Interpretation * * * * EXAMINATION: XR HAND 3V PA/LAT/OBL LT CLINICAL HISTORY: Cat bite Technique: XR HAND 3V PA/LAT/OBL LT -- LEFT with 3 views on 3 images Comparison: None RESULT: No acute fracture or dislocation. Small marginal osteophytes at multiple interphalangeal joints. No destructive osseous lesion. No radiodense foreign body. Additional Injections: L thumb A1 for trigger finger 10/16/2024 9:44 AM The procedure site was prepped in the usual sterile fashion. Medications: 3 mg betamethasone acetate-betamethasone sodium phosphate 6 mg/mL Anesthetics: 0.5 mL lidocaine (PF) 10 mg/mL (1 %) Outcome: tolerated well, no immediate complications Post-injection instructions were reviewed with the patient and the patient voiced understanding of these instructions. Informed Consent Consent Obtained: Verbal [place] Protocol A moment to CARE was completed. SIGN IN Personnel directly involved with the procedure wore the appropriate PPE. Special Equipment: N/A Patient/Surrogate Stated/Verified: Patient name, Date of , Relevant allergies and Intended procedure TIME OUT Relevant labs, photos, and/or imaging studies have been reviewed. Intended patient and procedure match the source document(s). Consent documented and matches the intended procedure. Correct side/site marked and visible. Medications required for procedure verified. No fire risk assessment and interventions applicable. No implant(s) inserted. SIGN OUT No specimen collected. No instruments, equipment or retained foreign bodies applicable. Post-procedure follow-up management communicated and Plan of Care Visit completed when applicable Supporting Subjective Information Below: Past Medical History: PAST MEDICAL HISTORY Diagnosis Date BAUTISTA positive 09/25/2021 Arthritis Atrophic vaginitis 08/03/2012 Calcaneal spur 07/14/2005 Cystocele 07/17/2013 Diverticulosis of colon (without mention of hemorrhage) Eczema 08/28/2019 Elevated blood sugar 09/21 (more content not included)...[facility]02-24-2025 History of Present illness Narrative* Manoj Gamino MD - 10/16/2024 9:03 AM ESTAssociated Order(s): Additional Injections: L thumb A1 Post-Procedure Diagnose(s): Trigger finger of left thumb Manoj Gamino MD Department of Orthopaedics Orthopaedics [address] [place] [address] Dept: [phone] Dept October 16, 2024 CHIEF COMPLAINT: New and Numbness of the Left Hand and Trigger Finger of the Left Thumb (Referred by Dr. Fry) HPI Patient here for evaluation left hand numbness and tingling. Her left thumb has also been locking. Patient states she has had the numbness and tingling for about 3 months. 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 Patient states her 4th finger will turn purple like it is bruised and them it will turn white. Patient states her thumb does lock at times. It is worse in the mornings and evenings. She has to help unlock it. Taking no med's for the pain. Patient is right handed dominant and is retired. 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 I suspect she may have a little bit of rainout secondary to her prior rheumatologic issues but rewarming and some gentle massage sounds likeit is keeping it at bay. She certainly has a bit of a trigger finger and we will give her a cortisone injection for that today. I have also ordered an electrodiagnostic exam of her left upper extremity due to her numbness, tingling, nighttime symptoms, etc. FOLLOW UP INSTRUCTIONS: After nerve testing OBJECTIVE: Ms. Elisha Godfrey is a pleasant 69 year old in no apparent distress. Gen:There were no vitals taken for this visit. nl development, obese, no deformities ENT: Normocephalic, normal hearing, moist mucosa CV: Pulses:Radial= 2+ and symmetric, capillary refill < 2 secs, no peripheral edema/varicosities Skin: no rash, bruising or lesions. Good turgor. Psych: cooperative and appropriate, alert and oriented x 3, good mood and affect. Musculoskeletal: No discoloration today. TTP at thumb A1 jax. Clicking without any catching of the digit. Mild, diminished light touch sensation in the median nerve distribution in the left hand. Positive Tinel's and positive median nerve compression testing. IMAGING: IMPRESSION: No acute osseous abnormality Professional Wrestler: PSCB Transcribe Date/Time: Aug 24 2023 10:23A Dictated by : ZULMA ROE MD This examination was interpreted and the report reviewed and electronically signed by: ZULMA ROE MD on Aug 24 2023 10:24AM EST Results-Findings * * *Final Report* * * DATE OF EXAM: Aug 24 2023 10:14AM WOX [id number] - XR HAND 3V PA/LAT/OBL LT / PROCEDURE REASON: multiple diagnoses * * * * Physician Interpretation * * * * EXAMINATION: XR HAND 3V PA/LAT/OBL LT CLINICAL HISTORY: Cat bite Technique: XR HAND 3V PA/LAT/OBL LT -- LEFT with 3 views on 3 images Comparison: None RESULT: No acute fracture or dislocation. Small marginal osteophytes at multiple interphalangeal joints. No destructive osseous lesion. No radiodense foreign body. Additional Injections: L thumb A1 for trigger finger 10/16/2024 9:44 AM The procedure site was prepped in the usual sterile fashion. Medications: 3 mg betamethasone acetate-betamethasone sodium phosphate 6 mg/mL Anesthetics: 0.5 mL lidocaine (PF) 10 mg/mL (1 %) Outcome: tolerated well, no immediate complications Post-injection instructions were reviewed with the patient and the patient voiced understanding of these instructions. Informed Consent Consent Obtained: Verbal [place] Protocol A moment to CARE was completed. SIGN IN Personnel directly involved with the procedure wore the appropriate PPE. Special Equipment: N/A Patient/Surrogate Stated/Verified: Patient name, Date of , Relevant allergies and Intended procedure TIME OUT Relevant labs, photos, and/or imaging studies have been reviewed. Intended patient and procedure match the source document(s). Consent documented and matches the intended procedure. Correct side/site marked and visible. Medications required for procedure verified. No fire risk assessment and interventions applicable. No implant(s) inserted. SIGN OUT No specimen collected. No instruments, equipment or retained foreign bodies applicable. Post-procedure follow-up management communicated and Plan of Care Visit completed when applicable Supporting Subjective Information Below: Past Medical History: PAST MEDICAL HISTORY Diagnosis Date BAUTISTA positive 09/25/2021 Arthritis Atrophic vaginitis 08/03/2012 Calcaneal spur 07/14/2005 Cystocele 07/17/2013 Diverticulosis of colon (without mention of hemorrhage) Eczema 08/28/2019 Elevated blood sugar 09/21/2022 Essential hypertension 12/14/2009 Female stress incontinence 07/17/2013 Fibromyalgia 08/28/2019 GERD without esophagitis 08/28/2019 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 Ferrer Internal hemorrhoids without mention of complication Lumbago 02/20/2008 Mixed hyperlipidemia Mixed stress and urge urinary incontinence 08/03/2012 Osteopenia, senile 08/31/2019 Pain in both lower extremities 09/19/2021 Suspect RLS PMH - PAST MEDICAL HISTORY OF [place] Prolapse of vaginal vault after hysterectomy 07/10/2013 Rosacea Severe obesity (BMI 35.0-39.9) with comorbidity (HCC) 09/21/2023 Sinus headache 08/28/2019 Spondylolisthesis at L4-L5 level 09/23/2021 Symptomatic menopausal or female climacteric states Past Surgical History: PAST SURGICAL HISTORY Procedure Laterality Date APPENDECTOMY HX BREAST BIOPSY CMBND ANTERPOST COLPORRAPHY W/CYSTO 09/20/2012 COLONOSCOPY 10/29/2021 repeat in 3 years, with MAC at [facility] COLONOSCOPY FLX DX W/COLLJ SPEC WHEN PFRMD 02/22/2006 COLONOSCOPY FLX DX W/COLLJ SPEC WHEN PFRMD 03/23/2016 Colonoscopy, repeat 5 years EGD W/O [facility] SPEC VARICIES INJ 10/29/2021 ESOPHAGOGASTRODUODENOSCOPY TRANSORAL DIAGNOSTIC 12/23/1998 EGD LAPAROSCOPIC APPENDECTOMY 07/12/2007 Early acute LIG/TRNSXJ FLP TUBE ABDL/VAG APPR UNI/BI Tubal ligation PAST SURGICAL HISTORY OF lipoma back, left back PAST SURGICAL HISTORY OF Right 06/02/2016 Dr. Matthew COATS, Right Knee Scope PAST SURGICAL HISTORY OF Left bone spur and cyst removal left thumb SLING OPER STRES INCONTINENCE 09/20/2012 [place] and cystoscopy TONSILLECTOMY HX TONSILLECTOMY PRIMARY/SECONDARY <AGE 11 Tonsillectomy VAG HYST 250 GM/< W/RMVL TUBE&/OVARY 09/20/2012 TVH/BSO, for prolapse w/ Santos's VAGINAL HYSTERECTOMY Family History: FAMILY HISTORY Problem Relation Age of Onset Diabetes Mother Hypertension Mother Arthritis Mother Cancer Mother uterine cancer Allergies Mother other (cholesterol) Mother Heart Father at 45 other (Heart) Father Uterine Cancer Sister Dementia Sister Diabetes Brother Blood Disease Brother possible clotting disorder Heart Brother at 56 or 58 Kidney Disease Brother Diabetes Brother Gout Brother Allergies Brother Asthma Brother GERD Brother Blood Disease Brother possible clotting issue other (lyme's disease) Brother Cancer Maternal Grandmother colon Thyroid Maternal Grandmother Allergies Son Cancer Maternal Aunt breast Allergies Other nephew Social History: Social History Tobacco Use Smoking status: Never Smokeless tobacco: Never Vaping Use Vaping status: Never Used Substance Use Topics Alcohol use: No Drug use: No Medications: Current Outpatient Medications Medication Sig pantoprazole DR (PROTONIX) 40 mg tablet Take 1 tablet by mouth daily before breakfast. Take on empty stomach, 1/2 hr before meal. Cholecalciferol, Vitamin D3, (VITAMIN D) 25 mcg (1,000 unit) cap Take 2 capsules by mouth once daily. 50 mcg daily budesonide (RHINOCORT ALLERGY) 32 mcg/actuation nasal spray Use 1 [place] in each nostril as needed. ramipril (ALTACE) 5 mg capsule Take 1 capsule by mouth once daily. clobetasol (TEMOVATE) 0.05 % ointment Apply to affected area two times a day. docosahexaenoic acid/epa (FISH OIL ORAL) Take 1,000 mg by mouth once daily. folic acid 1 mg tablet Take 2 mg by mouth once daily. ibuprofen (MOTRIN) 800 mg tablet Take 1 tablet by mouth every 8 hours as needed. FOR PAIN. ZINC ORAL Take 1 capsule by mouth once daily. vitamin E mixed/tocotrienol (VITAMIN E COMPLEX ORAL) Take 1 capsule by mouth once daily. olopatadine (PATANOL) 0.1 % ophthalmic solution 1 Drop twice daily. pataday Calcium-Cholecalciferol, D3, (CALCIUM 600 + D) 600-125 mg-unit tab Take one twice a day. sodium chloride-aloe vera (AYR SALINE) topical nasal gel by INTRANASAL route as needed. Artificial Tear, Hypromellose, (SYSTANE GEL) 0.3 % gel 1 Drop as needed (bedtime). Ascorbic Acid 1,000 mg tablet Take 1,000 mg by mouth once daily. fexofenadine hcl(CARMELITA 180 MG TAB) Take one(1) tablet daily. vitamin b complex(B COMPLEX CAP) Take one(1) tablet daily. aspirin(ECOTRIN LOW STRENGTH 81 MG TAB) one tablet 3 times a week multivitamins w-minerals/lut(CENTRUM SILVER TAB) Take one(1) tablet daily. methotrexate 2.5 mg tablet Take 2.5 mg by mouth every Wednesday. Taking 8 tablets weekly No current facility-administered medications for this visit. Allergies: Prevacid [Lansoprazole], Adhesive, Benadryl [Diphenhydramine Hcl], Fosamax [Alendronate], and Latex ROS: General (negative for fatigue, malaise, weight loss/gain) HEENT (negative for headache, earache, recent vision changes, sinus pain, sore throat) Respiratory (no recent shortness of breath, hemoptysis) CV (negative for chest tightness, palpitations) Musculoskeletal (see HPI) Psych (no depression, anxiety) Manoj Gamino MD documented in this encounterUniversity [facility]02-11-2025 NoteHNO ID: [id number] Author: REMINGTON PEREYRA LPN Service: ? Author Type: LICENSED NURSE Type: Progress Notes Filed: 10/03/2024 12:07 Note Text: Scan on 10/03/2024 11:20 AM by ProviderJose Carlos PA-C: Chemistry Scan on 10/03/2024 10:46 AM by ProviderJose Carlos PA-C: [facility] History of Present illness Narrative* Remington Pereyra LPN - 10/03/2024 12:06 PM EST Scan on 10/03/2024 11:20 AM by ProviderJose Carlos PA-C: Chemistry Scan on 10/03/2024 10:46 AM by Jose Carlos Phelps PA-C: Hematology documented in this encounterUniversity Hospitals [facility]02-03-2025 Telephone encounter Note * Telephone Encounter - Sayra Naik RN - 09/25/2024 9:24 AM EST The patient has been identified by name and date of : Yes Caregiver verified no other encounters exist for this prescription request: Yes Caregiver confirmed with patient/requestor that no other refills are due, in the near future, with this provider at this time: Yes The last office visit in the department: 09/21/2024 Does the patient have a future office visit with this provider/department: Yes 09/21/2025 Requested Prescriptions Pending Prescriptions Disp Refills pantoprazole DR (PROTONIX) 40 mg tablet 90 tablet 3 Sig: Take 1 tablet by mouth daily before breakfast. Take on empty stomach, 1/2 hr before meal. Sayra Naik RN September 25, 2024 9:24 AM [facility]02-03-[facility]25 Miscellaneous Notes* Telephone Encounter - Sayra Naik RN - 09/25/2024 9:24 AM EST The patient has been identified by name and date of : Yes Caregiver verified no other encounters exist for this prescription request: Yes Caregiver confirmed with patient/requestor that no other refills are due, in the near future, with this provider at this time: Yes The last office visit in the department: 09/21/2024 Does the patient have a future office visit with this provider/department: Yes 09/21/2025 Requested Prescriptions Pending Prescriptions Disp Refills pantoprazole DR (PROTONIX) 40 mg tablet 90 tablet 3 Sig: Take 1 tablet by mouth daily before breakfast. Take on empty stomach, 1/2 hr before meal. Sayra Naik RN September 25, 2024 9:24 AM documented in this encounterUniversity Hospitals [facility]01-30-2025 Instructions* Patient Instructions* Kade Fry MD - 09/21/2024 8:44 AM EST Talk with Dr. Crockett about other treatments for osteopenia since intolerant to Fosamax. Screening schedule The following prevention plan is recommended: Depression Screening Never done Anxiety Screening Never done Colorectal Cancer Screening due on 10/29/2022 Covid-19 Vaccine() due on 08/04/2024 Advance Directive Discussion due on 08/23/2024 BP Controlled (<130/80) due on 09/21/2024 Mammogram Screening due on 11/11/2024 WHAT YOU CAN DO TO PREVENT FALLS Many falls can be prevented. By making some changes, you can lower your chances of falling. Four things YOU can do to prevent falls for you* and your caregiver 1. Begin a regular exercise program Exercise is one of the most important ways to lower your chances of falling. It makes you stronger and helps you feel better. Exercises that improve balance and coordination (like Boby Chi) are the most helpful. Lack of exercise leads to weakness and increases your chances of falling. Ask your doctor or health care provider about the best type of exercise program for you. 2. Have your health care provider review your medicines Have your doctor or pharmacist review all the medicines you take, even sznc-hky-thnergo medicines. As you get older, the way medicines work in your body can change. Some medicines, or combinations of medicines, can make you sleepy or dizzy andcan cause you to fall. 3. Have your vision checked Have your eyes checked by an eye doctor at least once a year. You may be wearing the wrong glasses or have a condition like glaucoma or cataracts that limits your vision. Poor vision can increase your chances of falling. 4. Make your home safer About half of all falls happen at home. To make your home safer: Remove things you can trip over (like papers, books, clothes, and shoes) from stairs and places where you walk. Remove small throw rugs or use double-sided tape to keep the rugs from slipping. Keep items you use often in cabinets you can reach easily without using a step stool. Have grab bars put in next to your toilet and in the tub or shower. Use non-slip mats in the bathtub and on shower floors. Improve the lighting in your home. As you get older, you need brighter lights to see well. Hang light-weight curtains or shades to reduce glare. Have handrails and lights put in on all staircases. Wear shoes both inside and outside the house. Avoid going barefoot or wearing slippers. For more information, contact: Centers for Disease Control and Prevention www.cdc.gov/injury * This information may not apply if you have certain medical conditions. documented in this encounterUniversity Hospitals [facility]01-30-2025 History of Present illness Narrative* Kade Fry MD - 09/21/2024 8:40 AM EST Images from the original note were not included. Elisha Godfrey is a 69 year old female here for a Medicare wellness visit. Medicare Health Risk Assessment General Health good Exercise: Minutes/Day none Exercise: Days/Week none Alcohol: Daily Use none Alcohol: Drinks/Day none Alcohol: 6 or more drinks none Feel off balance At times with her sinus congestion. Concerns: Teeth/Dentures no Concerns: Sexual function no Troubled by feelings Some stress Frequency: Eating healthy diet daily ADLs requiring help none Safety precautions in home/vehicle No loose rugs, has grab bars, has stair rails and wears seat belts. Smoke, vape, chews tobacco never Difficulty hearing Yes, putting off seeing specialist. Difficulty seeing Wears glasses Current Providers Specialists: I have reviewed specialist-related care of the patient in the medical record. Current care team: Patient Care Team: Kade Fry MD as PCP - General (Family Medicine) Addie Birmingham APRN.ROSHAN as Atg Architect (Family Medicine) Ena Aguiar PA-C as Atg Architect (Family Medicine) Dr. Crockett: Rheum Medical/Family history review Reviewed and updated problem list, medical/surgical/family/social history, medications, and allergies. Opioid use review Opioid Medications (last 90 days) No data to display Anxiety/Depression screening Recommendation: no further intervention at this time Cognitive screening Mini Cog Score: 5 Cognitive screening reviewed and No further action needed (score 3-5). Functional Observation Was the patient's Timed Up & Go test unsteady or >= 12 seconds? No Advance Care Planning Patient did not wish or was not able to name a surrogate decision maker or provide an advance care plan Measurements BP 144/82 Pulse (!) 58 Ht 156.2 cm (5' 1.5) Wt 88.4 kg (194 lb 12.8 oz) BMI 36.21 kg/m Vision Screening: Follows with optometry/ophthalmology Assessment/Plan Medicare annual wellness visit, subsequent (Z00.00) - Counseled on healthy diet and regular exercise - Fall avoidance information provided - Personalized prevention plan provided See below Chief Complaint Patient presents with: Medicare Wellness Exam HPI Elisha Godfrey is a 69 year old female who presents here today for Chronic Medical Conditions. andMedicare Annual Visit. Patient with hx of HTN,hyperlipidemia, inflammatory arthritis, GERD, Fibro, chronic back pain, osteopenia, and those as below Patient has been doing ok. Has had some family related issues causing some stress bu does not feel depressed or anxious. Past medical history, appointments, medications, allergies reviewed. Previous Medical History PAST MEDICAL HISTORY Diagnosis Date BAUTISTA positive 09/25/2021 Arthritis Atrophic vaginitis 08/03/2012 Calcaneal spur 07/14/2005 Cystocele 07/17/2013 Diverticulosis of colon (without mention of hemorrhage) Eczema 08/28/2019 Elevated blood sugar 09/21/2022 Elevated glucose 09/21/2022 Essential hypertension 12/14/2009 Female stress incontinence 07/17/2013 [...] repeat in 3 years, with MAC at [facility] COLONOSCOPY FLX DX W/COLLJ SPEC WHEN [...] Knee Scope SLING OPER STRES INCONTINENCE 09/20/2012 [place] and cystoscopy TONSILLECTOMY HX TONSILLECTOMY PRIMARY/SECONDARY <AGE [...] Other: See Comments makes her feel weird Fosamax [Alendronat* Other: See Comments GERD Latex Unknown Current Medications Current Outpatient Medications on File Prior to Visit Medication Sig ramipril (ALTACE) 5 mg capsule Take 1 capsule by mouth once daily. ramipril (ALTACE) 5 mg capsule Take 1 capsule by mouth once daily. pantoprazole DR (PROTONIX) 40 mg tablet Take 1 tablet by mouth daily before breakfast. Take on empty stomach, 1/2 hr before meal. clobetasol (TEMOVATE) 0.05 % ointment Apply to affected area two times a day. docosahexaenoic acid/epa (FISH OIL ORAL) Take 1,000 mg by mouth once daily. hydrOXYchloroQUINE (PLAQUENIL) 200 mg tablet Take by mouth twice daily. folic acid 1 mg tablet Take [...] ALLERGY) 32 mcg/actuation nasal spray Use 1 [place] in each nostril once daily.(Patient taking differently: Use 1 [place] in each nostril as needed.) fexofenadine hcl(CARMELITA 180 MG TAB) Take one(1) tablet daily. vitamin b complex(B COMPLEX CAP) Take one(1) tablet daily. aspirin(ECOTRIN LOW STRENGTH 81 MG TAB) one tablet 3 times a week multivitamins w-minerals/lut(CENTRUM SILVER TAB) Take one(1) tablet daily. No current facility-administered medications on file prior to visit. Social History Social History Tobacco Use Smoking status: Never Smokeless tobacco: Never Vaping Use Vaping status: Never Used Substance Use Topics Alcohol use: No Drug use: No Review of Symptoms REVIEW OF SYSTEMS GENERAL: No weight loss, malaise or fevers HEENT: Negative for frequent or significant headaches, No changes in vision. Has hearing loss.does not want vitor aids. Has a sore on the right side of her nose and thinks its do to her rhinorrhea. Sometimes will bleed. Slight sore throat with her post nasal drainage. NECK: Negative for lumps, goiter, pain and significant neck swelling RESPIRATORY: Negative for cough, hemoptysis, wheezing, COPD, increased dyspnea or shortness of breath CARDIOVASCULAR: Negative for changes in the occasional chest pain she has had off and on for years.No leg swelling, hypertension, CHF. Some nights wakes with what she thinks is palpitations but not sure and no associated symptoms. GI: No vomiting, or diarrhea . Has had increased heartburn or reflux symptoms and occasionally has nausea. Patient continues to have difficulty swallowing and after her EGD in 10/2021 it was stated ifpersists needs to see gastro. At that time her colonoscopy was incomplete and was advised to have repeated in 2 years under MAC due to tortuous colon. : No history of dysuria, frequency or blood. MUSCULOSKELETAL: Negative for new or changes in her typical joint pain or swelling, back pain or muscle pain. Gets triggering on the left thumb and pain with it. Having pain in her toes and thinks she has a loose nail. SKIN: concerned about some lesions on her face. PSYCH: has some family stress. Not always sleeping well but says it has not been new. HEMATOLOGY/LYMPHOLOGY: Negative for prolonged bleeding, bruising easily or swollen nodes ENDOCRINE: Negative for cold or heat intolerance, polyuria, polydipsia and goiter NEURO: No history of headaches, syncope, paralysis, seizures or tremors. C/o numbness in the left hand and arm. EXAM: BP 144/82 Pulse (!) 58 Ht 156.2 cm (5' 1.5) Wt 88.4 kg (194 lb 12.8 oz) BMI 36.21 kg/m BP 138/78 Pulse (!) 58 Ht 156.2 cm (5' 1.5) Wt 88.4 kg (194 lb 12.8 oz) BMI 36.21 kg/m Last 5 Encounter Wt Readings: Date: Wt: 09/21/2024 88.4 kg (194 lb 12.8 oz) 09/21/2023 86.2 kg (190 lb) 08/24/2023 86.3 kg (190 lb 3.2 oz) 09/21/2022 87.7 kg (193 lb 6.4 oz) 06/18/2022 87.5 kg (193 lb) General Appearance: Well appearing, alert, in no acute distress, well-hydrated, well nourished.. Skin: Skin color, texture, turgor normal, no suspicious rashes or lesions. Head: Normocephalic, no masses, lesions, tenderness or abnormalities. Eyes: Anicteric sclera. Pupils are equally round and reactive to light. Extraocular movements are intact. . Ears: External ears, TM's normal, canals clear. Nose/Sinuses: Nares normal except slight sore on anterior inner right nares from moisture. , septummidline, mucosa normal, no drainage or sinus tenderness. Oropharynx: Lips, mucosa, and tongue normal, teeth and gums normal, oropharynx normal. Neck: Supple, no adenopathy; thyroid symmetric, normal size, no bruits. Lungs: Lungs clear to auscultation. No wheezing, rhonchi, rales.. Heart: RRR without murmur, gallop, or rubs. No ectopy. Abdomen: Normal abdominal exam, Abdomen soft, non-tender. Bowel sounds normal. No masses, organomegaly. Extremities: No deformities, edema, skin discoloration, Good capillary refill. . Musculoskeletal: Muscular strength intact, No joint swelling, deformity, or tenderness. Peripheral Pulses: Normal. Neurologic: Gait normal. Reflexes normal and symmetric. Sensation to light touch and crainal nerves2-12 intact.. Health Maintenance List Depression Screening Never done Anxiety Screening Never done Colorectal Cancer Screening due on 10/29/2022 Covid-19 Vaccine( season) due on 08/04/2024 Advance Directive Discussion due on 08/23/2024 Mammogram Screening due on 11/11/2024 Annual PCP Team Chronic Disease Visit due on 09/21/2024 BP Controlled (<130/80) due on 09/21/2024 Diabetes Screening due on 09/14/2027 Lipid Screening due on 09/14/2029 DTaP,Tdap,Td Vaccine(2 - Td or Tdap) due on 08/24/2033 Bone Density Screening Completed Influenza Vaccine Completed RSV Vaccine Completed Hepatitis C Screening Completed Shingrix Vaccine Completed Pneumococcal Vaccine: 50+ Completed Cervical Cancer Screening Discontinued Data reviewed Latest Ref Rng 09/20/2023 09/14/2024 WBC 3.70 - 11.00 k/uL 3.62 (L) 4.07 RBC 3.90 - 5.20 m/uL 3.89 (L) 3.90 Hemoglobin 11.5 - 15.5 g/dL 13.6 13.7 Hematocrit 36.0 - 46.0 % 40.5 41.3 MCV 80.0 - 100.0 fL 104.1 (H) 105.9 (H) MCH 26.0 - 34.0 pg 35.0 (H) 35.1 (H) MCHC 30.5 - 36.0 g/dL 33.6 33.2 RDW-CV 11.5 - 15.0 % 12.6 13.1 Platelet Count 150 - 400 k/uL 187 197 MPV 9.0 - 12.7 fL 10.2 10.7 Neut% % 55.8 62.0 Abs Neut (ANC) 1.45 - 7.50 k/uL 2.02 2.52 Lymph% % 33.1 27.5 Abs Lymph 1.00 - 4.00 k/uL 1.20 1.12 Banner% % 6.6 6.1 Abs Banner <0.87 k/uL 0.24 0.25 Eosin% % 3.6 3.2 Abs Eosin <0.46 k/uL 0.13 0.13 Baso% % 0.6 1.0 Abs Baso <0.11 k/uL <0.03 0.04 Immature Gran % % 0.3 0.2 IMMATURE GRANS (ABS) <0.10 k/uL <0.03 <0.03 NRBC /100 WBC 0.0 0.0 Absolute nRBC <0.01 k/uL <0.01 <0.01 DTYPE Auto Auto Color Yellow Yellow Clarity Clear Clear Glucose, Urine Negative Negative Bilirubin, Urine Negative Negative Ketones, Urine Negative Negative Specific Barnes, Ur 1.005 - 1.030 1.011 Hemoglobin/Blood,Ur Negative Negative pH, Urine <8.5 6.0 Protein, Urine Negative Negative Urobilinogen 0.2-1.0 EU/dL 0.2 EU/dL Nitrites Negative Negative Leukest Negative Trace ! WBC, Urine 0-5 /HPF 0-5 /HPF RBC, Urine 0-2 /HPF 0-2 /HPF Bacteria Negative /HPF Negative Epithelial Cells /HPF None Seen Hyaline Cast 0 /LPF 0 /LPF Protein, Total 6.3 - 8.0 g/dL 6.9 7.2 Albumin 3.9 - 4.9 g/dL 4.4 4.7 Calcium 8.5 - 10.2 mg/dL 9.7 9.7 Bilirubin, Total 0.2 - 1.3 mg/dL 0.6 0.5 Alkaline Phosphatase 34 - 123 U/L 78 90 AST 13 - 35 U/L 30 31 ALT 7 - 38 U/L 15 16 Glucose 74 - 99 mg/dL 101 (H) 112 (H) BUN 7 - 21 mg/dL 14 19 Creatinine 0.58 - 0.96 mg/dL 0.77 0.75 Sodium 136 - 144 mmol/L 140 142 Potassium 3.7 - 5.1 mmol/L 4.0 4.4 Chloride 98 - 107 mmol/L 102 105 CO2 22 - 30 mmol/L 29 28 Anion Gap 8 - 15 mmol/L 9 9 eGFR >=60 mL/min/1.73m 84 86 Cholesterol, Total <200 mg/dL 170 Triglyceride <150 mg/dL 194 (H) HDL Cholesterol >39 mg/dL 46 Non HDL Cholesterol <130 mg/dL 124 Fasting Time hrs 14 VLDL Cholesterol <30 mg/dL 39 (H) TC:HDL Ratio <5.10 3.70 LDL Cholesterol <100 mg/dL 85 LDL:HDL Ratio <2.54 1.85 Total Cholesterol, Nonfasting <200 mg/dL 184 Triglycerides, Nonfasting <150 mg/dL 106 HDL Cholesterol, Nonfasting >39 mg/dL 49 LDL Cholesterol, Nonfasting <100 mg/dL 114 (H) Non HDL Cholesterol, Nonfasting <130 mg/dL 135 (H) VLDL Cholesterol, Nonfasting <30 mg/dL 21 Total Chol/HDL Ratio, Nonfasting <5.10 mg/dL 3.76 LDL/HDL Ratio, Nonfasting <2.54 mg/dL 2.33 Hemoglobin A1C 4.3 - 5.6 % 5.5 5.7 (H) Estimated Average Glucose mg/dL 111 117 TSH 0.270 - 4.200 mIU/L 3.080 2.520 Vitamin B12 232 - 1,245 pg/mL 840 Magnesium 1.7 - 2.3 mg/dL 2.3 A/P ASSESSMENT/PLAN: 1. Encounter for Medicare annual wellness exam - ICD9: V70.0, ICD10: Z00.00 (primary diagnosis) - Counseled on healthy diet and regular exercise - Discussed need and benefit for weight loss. BMI 36.21 kg/(m^2) - Follow up for annual exam in one year 2. Essential hypertension - ICD9: 401.9, ICD10: I10 - Controlled - Continue current medications - Recommend home blood pressure monitoring, to bring results to next visit - Encouraged sodium restriction, DASH or Mediterranean diet - Recommend regular aerobic exercise - Discussed need for and benefit of weight loss. BMI 36.21 kg/(m^2) 3. Mixed hyperlipidemia - ICD9: 272.2, ICD10: E78.2 - Controlled - Continue current medications - Counseled on healthy diet and regular exercise - Discussed need for and benefit of weight loss. BMI 36.21 kg/(m^2) 4. Elevated blood sugar - ICD9: 790.29, ICD10: R73.9 - discussed dietary changes or improved control 5. GERD without esophagitis - ICD9: 530.81, ICD10: K21.9 - Continue treatment with Protonix 40 mg QD - CONSULT TO GASTROENTEROLOGY: Dr. Lozoya 6. Dysphagia, unspecified type - ICD9: 787.20, ICD10: R13.10 - CONSULT TO GASTROENTEROLOGY: Dr. Lozoya 7. 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 Still no need for Med Tx. 8. Fibromyalgia - ICD9: 729.1, ICD10: M79.7 - stable and seeing Rheum. 9. Mixed stress and urge urinary incontinence - ICD9: 788.33, ICD10: N39.46 - stable 10. Osteopenia, senile - ICD9: 733.90, ICD10: M85.80 - Reviewed the need for Calcium and Vitamin D supplements and weight bearing exercise as tolerated 11. Inflammatory arthritis - ICD9: 714.9, ICD10: M19.90 - management per Rheum. 12. Severe obesity (BMI 35.0-39.9) with comorbidity (HCC) - ICD9: 278.01, ICD10: E66.01 Weight increasing - Behavioral intervention 13. Numbness and tingling in left hand - ICD9: 782.0, ICD10: R20.0, R20.2 - CONSULT TO ORTHOPAEDICS 14. Trigger finger of left thumb - ICD9: 727.03, ICD10: M65.312 - CONSULT TO ORTHOPAEDICS 15. Pain in toes of both feet - ICD9: 729.5, ICD10: M79.674, M79.675 - CONSULT TO PODIATRY 16. Advance directive discussed with patient - ICD9: V65.49, ICD10: Z71.89 - has packets. 17. Encounter for screening mammogram for breast cancer - ICD9: V76.12, ICD10: Z12.31 Check - LEIGH SCREENING W IRISH 18. Encounter for screening examination for other mental health and behavioral disorders - ICD9: V79.8, ICD10: Z13.39 - ANXIETY SCREENING 19. Screening for depression - ICD9: V79.0, ICD10: Z13.31 - DEPRESSION SCREENING 20. Screening for colon cancer - ICD9: V76.51, ICD10: Z12.11 - CONSULT TO GASTROENTEROLOGY F/u in a year for extensive visit or sooner if issues. I spent a total of 83 minutes on the date of the service which included preparing to see the patient, [id number] patient care, completing clinical documentation, performing a medically appropriate examination, counseling and educating the patient/family/caregiver and ordering medications, tests, or procedures. Kade Fry MD documented in this encounterUniversity Hospitals [facility]01-30-2025 NoteHNO ID: [id number] Author: KADE FRY MD Service: ? Author Type: Physician Type: Progress Notes Filed: 09/21/2024 20:32 Note Text: Elisha Godfrey is a 69 year old female here for a Medicare wellness visit. Medicare Health Risk Assessment General Health good Exercise: Minutes/Day none Exercise: Days/Week none Alcohol: Daily Use none Alcohol: Drinks/Day none Alcohol: 6 or more drinks none Feel off balance At times with her sinus congestion. Concerns: Teeth/Dentures no Concerns: Sexual function no Troubled by feelings Some stress Frequency: Eating healthy diet daily ADLs requiring help none Safety precautions in home/vehicle No loose rugs, has grab bars, has stair rails and wears seat belts. Smoke, vape, chews tobacco never Difficulty hearing Yes, putting off seeing specialist. Difficulty seeing Wears glasses Current Providers Specialists: I have reviewed specialist-related care of the patient in the medical record. Current care team: Patient Care Team: Kade Fry MD as PCP - General (Family Medicine) Addie Birmingham APRN.ROSHAN as Atg Architect (Family Medicine) Ena Aguiar PA-C as Atg Architect (Family Medicine) Dr. Crockett: Rheum Medical/Family history review Reviewed and updated problem list, medical/surgical/family/social history, medications, and allergies. Opioid use review Opioid Medications (last 90 days) No data to display Anxiety/Depression screening Recommendation: no further intervention at this time Cognitive screening Mini Cog Score: 5 Cognitive screening reviewed and No further action needed (score 3-5). Functional Observation Was the patient's Timed Up AND Go test unsteady or >= 12 seconds? No Advance Care Planning Patient did not wish or was not able to name a surrogate decision maker or provide an advance care plan Measurements BP 144/82 Pulse (!) 58 Ht 156.2 cm (5' 1.5) Wt 88.4 kg (194 lb 12.8 oz) BMI 36.21 kg/m? Vision Screening: Follows with optometry/ophthalmology Assessment/Plan Medicare annual wellness visit, subsequent (Z00.00) - Counseled on healthy diet and regular exercise - Fall avoidance information provided - Personalized prevention plan provided See below Chief Complaint Patient presents with: Medicare Wellness Exam HPI Elisha Godfrey is a 69 year old female who presents here today for Chronic Medical Conditions. and Medicare Annual Visit. Patient with hx of HTN,hyperlipidemia, inflammatory arthritis, GERD, Fibro, chronic back pain, osteopenia, and those as below Patient has been doing ok. Has had some family related issues causing some stress bu does not feel depressed or anxious. Past medical history, appointments, medications, allergies reviewed. Previous Medical History PAST MEDICAL HISTORY Diagnosis Date BAUTISTA positive 09/25/2021 Arthritis Atrophic vaginitis 08/03/2012 Calcaneal spur 07/14/2005 Cystocele 07/17/2013 Diverticulosis of colon (without mention of hemorrhage) Eczema 08/28/2019 Elevated blood sugar 09/21/2022 Elevated glucose 09/21/2022 Essential hypertension 12/14/2009 Female stress incontinence 07/17/2013 [...] repeat in 3 years, with MAC at [facility] COLONOSCOPY FLX DX W/COLLJ SPEC WHEN [...] Knee Scope SLING OPER STRES INCONTINENCE 09/20/2012 [place] and cystoscopy TONSILLECTOMY HX TONSILLECTOMY PRIMARY/SECONDARY Tonsillectomy VAG HYST 250 GM/< W/RMVL TUBEAND/OVARY 09/20/2012 [facility], for prolapse w/ Santos's VAGINAL HYSTERECTOMY Family History FAMILY HISTORY Problem Relation Age of Onset (more content not included)...[facility]12-20-2024 Telephone encounter Note* Telephone Encounter - Kade Fry MD - 08/11/2024 10:32 AM EST The following approved medication requests have been transmitted electronically. Requested Prescriptions Signed Prescriptions Disp Refills ramipril (ALTACE) 5 mg capsule 14 capsule 0 Sig: Take 1 capsule by mouth once daily. Authorizing Provider: KADE FRY MD Labs placed [facility]12-20-[facility] Miscellaneous Notes* Telephone Encounter - Kade Fry MD - 08/11/2024 10:32 AM EST The following approved medication requests have been transmitted electronically. Requested Prescriptions Signed Prescriptions Disp Refills ramipril (ALTACE) 5 mg capsule 14 capsule 0 Sig: Take 1 capsule by mouth once daily. Authorizing Provider: KADE FRY MD Labs placed * Telephone Encounter - Lisa Watt RN - 08/11/2024 9:51 AM EST Pt calling in and states her Ramipril was recalled. She usually uses mail order. When she spoke to them, they told her that she needed to call her provider to get a short term supply sent to local pharmacy until they can get her med mailed back out to her. Short term prescription pended. Also pt has an appt 09/21/24 and would like to get labs drawn prior. Orders pended. documented in this encounterUniversity Hospitals [facility] Center12-20-2024 Telephone encounter Note * Telephone Encounter - Lisa Watt RN - 08/11/2024 9:51 AM EST Pt calling in and states her Ramipril was recalled. She usually uses mail order. When she spoke to them, they told her that she needed to call her provider to get a short term supply sent to local pharmacy until they can get her med mailed back out to her. Short term prescription pended. Also pt has an appt 09/21/24 and would like to get labs drawn prior. Orders pended. [facility]09-30-[facility]24 NoteHNO ID: [id number] Author: REMINGTON PEREYRA LPN Service: ? Author Type: LICENSED NURSE Type: Progress Notes Filed: 05/22/2024 06:49 Note Text: Scan on 05/19/2024 1:16 PM by ProviderJose Carlos PA-C: [facility] History of Present illness Narrative* Remington Pereyra LPN - 05/22/2024 6:49 AM EDT Scan on 05/19/2024 1:16 PM by ProviderJose Carlos PA-C: Hematology documented in this encounterUniversity Hospitals Beach[facility] Center08-26-2024 History of Present illness Narrative* Feliciano Leahy MA - 04/17/2024 4:10 PM EDT Scan on 04/17/2024 10:47 AM by ProviderJose Carlos PA-C: Hematology Scan on 04/17/2024 11:42 AM by ProviderJose Carlos PA-C: Chemistry Feliciano Leahy MA' documented in this encounterUniversity Hospitals [facility]06-21-2024 History of Present illness Narrative* Mesha Urias - 02/11/2024 9:04 AM EDT Elisha Godfrey is identified through a medication adherence outreach initiative based on pharmacy claims data from [employer] (insurer) for ROLLY medication(s). Patient is reviewed 02/11/24 due to medication adherence concerns with the following medications (name, strength, sig): Ramipril 5 mg 1 capsule every day . Per data/report, last fill date and days supply: Due 01/02/2024 Per reconcile dispense, last fill date and days supply: 01/18/2024 for 90 days Per call to pharmacy, last picked up date and days supply: NA Outcome of review/outreach: (choose outcome source and status) - Filled later than 7 days after Next fill date per reconcile dispense Mesha Urias documented in this encounterUniversity Hospitals [facility]05-31-2024 History of Present illness Narrative* Sangita Jay LPN - 01/21/2024 12:47 PM EDT Scan on 01/21/2024 11:11 AM by ProviderJose Carlos PA-C: Chemistry Scan on 01/21/2024 10:36 AM by Jose Carlos Phelps PA-C: Chemistry Sangita Jay LPN documented in this encounterUniversity Hospitals [facility] Center05-28-2024 Telephone encounter Note * Telephone Encounter - Sandra Gleason - 01/18/2024 1:18 PM EDT Patient has been identified by name and date of : Yes, Provider Kade Fry MD Date 01/18/2024 Time 1:20 pm Patient phones for refill(s): Requested Prescriptions Pending Prescriptions Disp Refills ramipril (ALTACE) 5 mg capsule 90 capsule 3 Sig: Take 1 capsule by mouth once daily. Date of last office visit in primary care: 09/21/2023 Date of next office visit in primary care: Please advise. Thank you. Sandra Ramirez. [facility]05-28-2024 Miscellaneous Notes* Telephone Encounter - Sandra Gleason - 01/18/2024 1:18 PM EDT Patient has been identified by name and date of : Yes, Provider Kade Fry MD Date 01/18/2024 Time 1:20 pm Patient phones for refill(s): Requested Prescriptions Pending Prescriptions Disp Refills ramipril (ALTACE) 5 mg capsule 90 capsule 3 Sig: Take 1 capsule by mouth once daily. Date of last office visit in primary care: 09/21/2023 Date of next office visit in primary care: Please advise. Thank you. Sandra Souza [facility]. documented in this encounterUniversity Hospitals Beach[facility] Center04-22-2024 Telephone encounter Note * Telephone Encounter - Sangita Jay LPN - 12/13/2023 1:27 PM EDT Pt notified of message, pt states she is not sure which route to take, states she will think about it & call back with her choice. Sangita Jay LPN [facility]04-22-2024 Miscellaneous Notes* Telephone Encounter - Sangita Jay LPN - 12/13/2023 1:27 PM EDT Pt notified of message, pt states she is not sure which route to take, states she will think about it & call back with her choice. Sangita Jay LPN * Telephone Encounter - Kade Fry MD - 12/13/2023 12:37 PM EDT Let patient know we can try a different once a week medication or I can refer her to Endocrinology to discuss injection options. * Telephone Encounter - Gray Thorne RN - 12/13/2023 9:58 AM EDT Patient reports she started taking fosamax, prescribed in Sep. At that time she got really sick andstopped taking them. Once she felt better, started taking fosamax again on November 23. Reports it put her acid reflex in high gear, and she continued to take it. Developed burning and pain in stomach,that woke her up during sleep. Stopped taking fosamax on December 07. States she cannot take this medication. Asking pcp to please advise patient. documented in this encounterUniversity Hospitals [facility] Center04-22-2024 Telephone encounter Note * Telephone Encounter - Kade Fry MD - 12/13/2023 12:37 PM EDT Let patient know we can try a different once a week medication or I can refer her to Endocrinology to discuss injection options. [facility]04-22-2024 Telephone encounter Note* Telephone Encounter - Gray Thorne RN - 12/13/2023 9:58 AM EDT Patient reports she started taking fosamax, prescribed in Sep. At that time she got really sick andstopped taking them. Once she felt better, started taking fosamax again on November 23. Reports it put her acid reflex in high gear, and she continued to take it. Developed burning and pain in stomach,that woke her up during sleep. Stopped taking fosamax on December 07. States she cannot take this medication. Asking pcp to please advise patient. [facility]03-22-2024 Miscellaneous Notes* Telephone Encounter - Ree Ng MA - 11/12/2023 2:36 PM EDT Letter mailed to pt home of results. Ree Ng MA * Telephone Encounter - Ree Ng MA - 11/12/2023 2:29 PM EDT ----- Message from Ena Aguiar PA-C sent at 11/12/2023 12:27 PM EDT ----- Normal mammogram. Repeat in 1 year. documented in this encounterUniversity Hospitals Beach[facility] Center03-22-2024 Miscellaneous Notes* Letter - Rasheeda Valencia - 11/12/2023 12:11 PM EDT November 12, 2023 PID: [id number] Elisha Godfrey [address] [place] [address] Dear Ms. Godfrey, We are pleased to inform you that the results of your recent breast imaging exam on 11/12/2023 are normal. Early detection of cancer is very important. We also understand recommendations regarding breast cancer screening are controversial. Please discuss with your primary care provider which strategy is best for you and whether a mammogram is right for you. Your imaging studies and report will be kept on file at [facility] as part of your permanent medical record and are available for your continuing care. Thank you for allowing us to help in meeting your health care needs. Sincerely, Dr. Jeronimo Interpreting Radiologist [facility] (Normal over 40) documented in this encounterUniversity Hospitals Beachwood [facility] Center03-22-2024 History of Present illness Narrative* Rosa Akbar Mammo Tech - 11/12/2023 7:10 AM EDT Radiology Service Progress Note PATIENT NAME: Elisha Godfrey DATE OF SERVICE: November 12, 2023 TIME: 7:14 AM PATIENT IDENTITY VERIFICATION COMPLETED USING TWO (2) IDENTIFIERS: Name and Date of confirmedby patient verbally. FALL SCREENING: Has the patient had 2 falls in the last year or 1 fall with injury or currently using an Ambulatory Assistive Device (Walker, Cane, Wheelchair, Crutches, etc.)? No PATIENT GENDER DATA: Female. status: : No status: NO. PATIENT RELEVANT IMPLANT DATA REVIEWED: Not Applicable PATIENT PRESENTS WITH AN IMPLANTABLE OR ATTACHED GENERAL HARDWARE SALESPERSON: No RADIOLOGY DEPARTMENT: Mammography PERIPHERAL IV DATA: Not applicable SIGNED BY: Jimbo Marmolejo November 12, 2023 7:14 AM documented in this encounterUniversity Hospitals Beach[facility] Center02-14-2024 Miscellaneous Notes* Telephone Encounter - Ena Aguiar PA-C - 10/06/2023 2:34 PM EST New orders placed. * Telephone Encounter - Pamela Tate RN - 10/06/2023 2:13 PM EST Sabine calling from [facility] regarding pt's order. [...] placed. Pamela Tate RN documented in this encounterUniversity Hospitals Beachwood [facility] Center01-02-2024 History of Present illness Narrative* Sangeetha Chang RT(R) - 08/24/2023 10:00 AM EST Radiology Service Progress Note PATIENT NAME: Elisha Godfrey DATE OF SERVICE: August 24, 2023 TIME: 10:05 AM PATIENT IDENTITY VERIFICATION COMPLETED USING TWO (2) IDENTIFIERS: Name and Date of confirmedby patient verbally. FALL SCREENING: Has the patient had 2 falls in the last year or 1 fall with injury or currently using an Ambulatory Assistive Device (Walker, Cane, Wheelchair, Crutches, etc.)? No PATIENT GENDER DATA: Female. status: : No status: NO. PATIENT RELEVANT IMPLANT DATA REVIEWED: Not Applicable RADIOLOGY DEPARTMENT: General X-ray: Exam(s) Completed: Upper Extremity X- Ray(s): Hand, left PERIPHERAL IV DATA: Not applicable SIGNED BY: RT Jeffrey(R) August 24, 2023 10:05 AM documented in this encounterUniversity Hospitals Beachwood [facility] Center12-05-2023 History of Present illness Narrative* Remington Pereyra LPN - 07/27/2023 8:39 AM EST Scan on 07/23/2023 12:38 PM by Provider, EDIS Branch: Hematology Scan on 07/23/2023 1:38 PM by Provider, External, EDIS: Chemistry documented in this encounterUniversity Hospitals Beachwood Medical Center11-29-2023 Miscellaneous Notes* Telephone Encounter - Kade Fry MD - 07/21/2023 8:17 PM EST The following approved medication requests have been transmitted electronically. Requested Prescriptions Signed Prescriptions Disp Refills ramipril (ALTACE) 5 mg capsule 90 capsule 1 Sig: Take 1 capsule by mouth once daily. Authorizing Provider: KADE FRY MD * Telephone Encounter - Shelby Brown Ma - 07/21/2023 3:20 PM EST Patient last visit with PCP 09/21/22 Follow up appointment scheduled 09/21/23 Shelby Brown Ma * Telephone Encounter - Rosamaria Calvert - 07/21/2023 3:01 PM EST Patient has been identified by name and date of : Yes Requested Prescriptions Pending Prescriptions Disp Refills ramipril (ALTACE) 5 mg capsule 90 capsule 1 Sig: Take 1 capsule by mouth once daily. RX INSTRUCTIONS: Patient aware RX escripted to mail away pharmacy. No need to notify patient. Rosamaria Chanel documented in this encounterUniversity Hospitals [facility] Center09-15-2023 History of Present illness Narrative* Remington Pereyra LPN - 05/07/2023 1:30 PM EDT Scan on 05/07/2023 1:21 PM by Provider, Jose Carlos, EDIS: Chemistry Scan on 05/07/2023 12:39 PM by Provider, External, PASandraC: Hematology documented in this encounterUniversity Hospitals [facility] Center06-06-2023 History of Present illness Narrative* Addie Pugh Pss - 01/26/2023 12:28 PM EDT POPULATION HEALTH NAVIGATION OUTREACH Action/FYI 01/26/23 Discuss/due Connortna Care Gaps: ~Colorectal Cancer screening ~MyChart Activation [...] SCREENING due on 10/29/2022 Navigation Signature: Addie Pugh Population Health Navigator January 26, 2023 12:28 PM documented in this encounterUniversity Hospitals Beachwood Medical Center04-06-2023 History of Present illness Narrative* Feliciano Leahy MA - 11/26/2022 11:34 AM EDT Scan on 11/20/2022 12:37 PM by External Provider: Hematology Feliciano Leahy MA documented in this encounterUniversity Hospitals Beachwood Medical Center03-20-2023 Miscellaneous Notes* Telephone Encounter - Kacey Lou Cma - 11/09/2022 3:59 PM EDT Patient notified and verbalized understanding Kacey Lou Cma * Telephone Encounter - Addie Birmingham APRN.CNP - 11/09/2022 3:46 PM EDT Please let patient know her mammogram is normal. She should continue yearly screenings. documented in this encounterUniversity Hospitals Beachwood Medical Center03-20-2023 Miscellaneous Notes* Letter - Mammography Coordinator - 11/09/2022 1:49 PM EDT November 10, 2022 PID: [id number] Elisha Sin Godfrey [address] [place] [address] Dear Ms. Godfrey, We are pleased to inform you that [...] report will be [facility] as part of your permanent medical record and are available for your continuing care. Thank you for allowing us to help in meeting your health care needs. Sincerely, Dr. Hoyt Interpreting Radiologist [facility] (Normal over 40) documented in this encounterUniversity Hospitals Beachwood [facility] Center03-17-2023 History of Present illness Narrative* Shwetha Gregg RT(R) - 11/06/2022 2:10 PM EDT Radiology Service Progress Note PATIENT NAME: Elisha Godfrey DATE OF SERVICE: November 06, 2022 TIME: 1:44 PM PATIENT IDENTITY VERIFICATION COMPLETED USING TWO (2) IDENTIFIERS: Name and Date of confirmedby patient verbally. FALL SCREENING: Has the patient [...] 06, 2022 1:44 PM documented in this encounterUniversity Hospitals Beachwood Medical Center01-30-2023 Instructions* Patient Instructions* Ena Aguiar PA-C - 09/21/2022 9:44 AM EST Aquaphor for dry skin. Can mix this with the steroid ointment as needed for increased treatment benefit. documented in this encounterUniversity Hospitals Beachwood Medical Center01-30-2023 History of Present illness Narrative* Ena Aguiar PA-C - 09/21/2022 9:20 AM EST Medicare Yearly Visit Medical B eligibilty date [...] repeat in 3 years, with MAC at [facility] COLONOSCOPY FLX DX W/COLLJ SPEC WHEN [...] Knee Scope SLING OPER STRES INCONTINENCE 09/20/2012 [place] and cystoscopy TONSILLECTOMY HX TONSILLECTOMY PRIMARY/SECONDARY <AGE [...] Topics Alcohol use: No Drug use: No Elisha likes to exercise by trying to stay active but not exercising routinely like she used to. Shewatches her diet for sodium, low fat and low cholesterol some of the time. List of current specialists seen: Rheumatology. Ophthalmology End of Live Planning discussed including patients advanced directive wishes: Yes I am willing to follow Elisha's advanced directives. Depression Screening 08/19/2016 02/17/2017 09/27/2018 09/21/2022 PHQ-2 Score 0 0 0 0 Depression screening tool completed and reviewed. Based on score and interview, patient is not at risk for depression. Screening tool discussed with patient, and I recommended no further interventionat this time. Functional Ability/Safety Screen 1. Was the patient's timed Up and Go test unsteady or longer than 30 seconds? No 2. Does the patient need help with the phone, transportation, shopping,preparing meals, housework, laundry, medications or managing money? No 3. Does your home have rugs in the hallway, lack of grab bars in the bathroom, lack of handrails onthe stairs or have poor lighting? No Hearing Evaluation: normal PHYSICAL EXAM BP 132/80 (BP Site: Left Arm, BP Position: Sitting, BP Cuff Size: Large Adult) Pulse 68 Resp 16 Ht 157 cm (5' 1.81) Wt 87.7 kg (193 lb 6.4 oz) BMI 35.59 kg/m Alert and oriented X 3: YES Body mass index is 35.59 kg/m . Visual acuity: sees Ophthalmology ASSESSMENT/PLAN: 67 year old female The following prevention plan was discussed during the office visit and provided to the patient: See below. Ena Aguiar PA-C Chief Complaint Patient presents with: Yearly Exam HPI Elisha Godfrey is a 67 year old female who presents here today for extensive exam. Patient with hx of HTN, hyperlipidemia, GERD, urge incontinence, thyroiditis, allergies, osteopenia, inflammatory arthritis, fibro and those as below. Patient denies concerns today. Patient would like to wait another year before repeat c-scope. States she had a bad experience withlast one. Past medical history, appointments, medications, allergies [...] repeat in 3 years, with MAC at [facility] COLONOSCOPY FLX DX W/COLLJ SPEC WHEN PFRMD 02/22/2006 COLONOSCOPY FLX DX W/COLLJ SPEC WHEN PFRMD 03/23/2016 Colonoscopy, repeat 5 years EGD W/O [facility] SPEC VARICIES INJ 10/29/2021 ESOPHAGOGASTRODUODENOSCOPY TRANSORAL DIAGNOSTIC 12/23/1998 EGD LAPAROSCOPIC APPENDECTOMY 07/12/2007 Early acute LIG/TRNSXJ FLP TUBE ABDL/VAG APPR UNI/BI Tubal ligation PAST SURGICAL HISTORY OF lipoma back, left back PAST SURGICAL HISTORY OF Right 06/02/2016 Dr. Matthew COATS, Right Knee Scope SLING OPER STRES INCONTINENCE 09/20/2012 [place] and cystoscopy TONSILLECTOMY HX TONSILLECTOMY PRIMARY/SECONDARY <AGE [...] ALLERGY) 32 mcg/actuation nasal spray Use 1 [place] in each nostril once daily.(Patient taking differently: Use 1 [place] in each nostril as needed.) fexofenadine hcl(CARMELITA 180 MG TAB) Take one(1) tablet daily. [...] No history of dysuria, frequency or incontinence VOLUNTEER SERVICES SPECIALIST: Negative for abnormal vaginal bleeding, abnormal vaginal [...] 68 Resp 16 Ht 157 cm (5' 1.81) Wt 87.7 kg (193 lb 6.4 oz) [...] Abs Lymph 1.00 - 4.00 k/uL 1.11 Banner% % 7.6 Abs Banner <0.87 k/uL 0.32 Eosin% % 3.3 Abs [...] Negative Ketones, Urine Trace, Negative Negative Specific Barnes, Ur 1.005 - 1.030 1.008 Hemoglobin/Blood,Ur Negative, [...] diet of 1000 mg/day for under 50, 1200- 1500 mg/day for 50+ - Colorectal cancer screening [...] 729.1, ICD10: M79.7 Continue with rheum 8. 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 Follow up yearly. Return sooner prn. Ena Aguiar PA-C documented in this encounterEmily Ville [id number] Miscellaneous Notes* Telephone Encounter - Feliciano Leahy MA - 09/09/2022 11:53 AM EST Patient notified and voiced understanding. Feliciano Leahy MA * Telephone Encounter - Ena Aguiar PA-C - 09/09/2022 10:56 AM EST Placed. Ena Aguiar PA-C * Telephone Encounter - Sayra Naik RN - 09/08/2022 3:51 PM EST Pt called in and reports she has an appointment on 09/21/22 and would like labs ordered. Please callonce they are placed. documented in this encounterUniversity Hospitals Beach[facility] Center12-14-2022 Miscellaneous Notes* Telephone Encounter - Kade Fry MD - 08/05/2022 8:57 PM EST The following approved medication requests have been transmitted electronically. Requested Prescriptions Signed Prescriptions Disp Refills ramipril (ALTACE) 5 mg capsule 90 capsule 1 Sig: Take 1 capsule by mouth once daily. Authorizing Provider: KADE FRY MD * Telephone Encounter - Pamela Tate RN - 08/05/2022 2:29 PM EST Patient has been identified by name and [...] you. Pamela Tate RN documented in this encounterUniversity Hospitals [facility] Center10-27-2022 Instructions* Patient Instructions* Chapis Lepe APRN.DEVELOPER DESIGNER - 06/18/2022 10:21 AM EDT Avoiding Tick Bites How can I avoid tick bites? If you are planning an outdoor activity, especially those in a heavily wooded area, it is importantto follow a few simple precautions to protect yourself from tick bites. Wear long sleeved, light-colored clothing, with tightly woven fabric. This gives ticks less area totarget and allows you to see ticks on [...] are no guarantees that they will be effective.The best option is to take precautions so [...] Problems with short-term memory documented in this encounterUniversity Hospitals Beachwood [facility] Center10-27-2022 History of Present illness Narrative* Chapis Lepe APRN.ROSHAN - 06/18/2022 10:20 AM EDT Images from the original note were not included. Subjective Trauma Pertinent negatives include no chills, fever, myalgias or rash. HPI Elisha Godfrey is a 67 year old female who presents today for CC of tick on back of right upper leg. She noticed this today. She was out in the [place] 3 days ago. She denies any fever chills bodyaches. BP 162/88 Pulse 80 Temp 36.5 C [...] have confirmed and edited as necessary, the [facility] Review of Systems Constitutional: Negative for chills [...] for higher level of care were discussed indetail warranting prompt ER evaluation. Chapis Lepe APRN.DEVELOPER DESIGNER documented in this encounterUniversity Hospitals Beach[facility] Center05-02-2022 History of Present illness Narrative* Feliciano Leahy MA - 12/22/2021 4:24 PM EDT Please see external labs. Feliciano Leahy MA Scan on 12/22/2021 2:23 PM by External Provider: Hematology documented in this encounterUniversity Hospitals Beachwood Medical Center03-23-2022 Instructions* Patient Instructions* Sayra Del Toro PA-C - 11/12/2021 10:46 AM EDT -Recommend repeat colonoscopy in 1-2 years with Monitored Anesthetic Care -Recommend daily fiber supplement and plenty of fluids -Call immediately if any changes in bowel habits or new concerns The following instructions are important for you related to your office visit today with the [facility] General Surgeons. INSTRUCTIONS FOR PEPTIC ULCER DISEASE/GASTRITIS [...] epigastric pain, burning, difficulty swallowing or food stickingshould be relayed to your physician. Feeling full early after eating, or black, tarry, foul smelling stools are also worrisome. If you have any difficulties or concerns, you should contact our office immediately. If you note any additional difficulties, questions, or concerns, you should contact our office immediately @ [phone] and ask to be transferred to the General Surgery department. documented in this encounterUniversity Hospitals Beachwood Medical Center03-23-2022 History of Present illness Narrative* Sayra Del Toro PA-C - 11/12/2021 10:10 AM EDT FOLLOW UP VISIT - ENDOSCOPY NAME: Elisha Godfrey [facility] NO.: [id number] DATE OF SERVICE: 11/12/2021 : 1955 REFERRING PHYSICIAN: Kade Fry MD Elisha is a patient I am following for [...] one cassette issue. Gross examination performed at [facility], [email or web address] 10/29/2021 10:08 PM Performing Lab Diagnostic interpretation performed at [facility], [facility] [address]IA[address] [id number] Vehicle Return Associate: Remy Yuan M.D. Addendum Given the background [...] C (98 F), height 154.9 cm (5' 1), haedau55.4 kg (186 lb), SpO2 96 %. General: patient is alert, cooperative, pleasant and in no acute distress On examination, the abdomen is benign. Assessment IMPRESSION: s/p EGD and incomplete colonoscopy-limited due to very tortuous colon. Recommend MAC for next colonoscopy PLAN: The operative findings and pathology report were reviewed with the patient, and the patient has hadthe opportunity to ask questions and have questions [...] in 1-2 years to be done at [facility] under Monitored Anesthetic Care. Patient agreeable [...] which included preparing to see the patient, [id number] patient care, completing clinical documentation, obtaining and/or reviewing separately obtained history, counseling and educating the patient/family/caregiver, communicating with other HCPs (not separately reported), independently interpreting results (not separately reported) and communicating results to the patient/family/caregiver. Sayra Del Toro PA-C documented in this encounterUniversity Hospitals Beachwood Medical Center02-03-2022 History of Past illness Narrative* Problem Noted Date Diagnosed Date Resolved Date BAUTISTA positive 09/25/2021 09/21/2023 Overview: Consult to Rheum 09/2021 Cystocele, midline 08/03/2012 3 Rectocele 08/03/2012 10/31/2012 Uterine prolapse without men tion of vaginal wall prolapse 08/03/2012 10/31/2012 Acute appendicitis without m ention of peritonitis 07/16/2007 09/19/2012 Hemorrhage of gastrointestin al tract, unspecified 08/28/2019 documented as of this encounter (statuses as of 10/06/2023) [facility] History of Past illness Narrative* Problem Noted Date Diagnosed Date Resolved Date BAUTISTA positive 09/25/2021 09/21/2023 Overview: Consult to Rheum 09/2021 Cystocele, midline 08/03/2012 3 Rectocele 08/03/2012 10/31/2012 Uterine prolapse without men tion of vaginal wall prolapse 08/03/2012 10/31/2012 Acute appendicitis without m ention of peritonitis 07/16/2007 09/19/2012 Hemorrhage of gastrointestin al tract, unspecified 08/28/2019 documented as of this encounter (statuses as of 11/12/2023) [facility] History of Past illness Narrative* Problem Noted Date Diagnosed Date Resolved Date BAUTISTA positive 09/25/2021 09/21/2023 Overview: Consult to Rheum 09/2021 Cystocele, midline 08/03/2012 3 Rectocele 08/03/2012 10/31/2012 Uterine prolapse without men tion of vaginal wall prolapse 08/03/2012 10/31/2012 Acute appendicitis without m ention of peritonitis 07/16/2007 09/19/2012 Hemorrhage of gastrointestin al tract, unspecified 08/28/2019 documented as of this encounter (statuses as of 11/13/2023) [facility] History of Past illness Narrative* Problem Noted Date Diagnosed Date Resolved Date BAUTISTA positive 09/25/2021 09/21/2023 Overview: Consult to Rheum 09/2021 Cystocele, midline 08/03/2012 3 Rectocele 08/03/2012 10/31/2012 Uterine prolapse without men tion of vaginal wall prolapse 08/03/2012 10/31/2012 Acute appendicitis without m ention of peritonitis 07/16/2007 09/19/2012 Hemorrhage of gastrointestin al tract, unspecified 08/28/2019 documented as of this encounter (statuses as of 11/16/2023) [facility] History of Present illness Narrative* Nadine Chaudhary RT(R) - 09/23/2021 1:50 PM EST Radiology Service Progress Note PATIENT NAME: Elisha Godfrey DATE OF SERVICE: September 23, 2021 TIME: 1:48 PM PATIENT IDENTITY VERIFICATION COMPLETED USING TWO (2) IDENTIFIERS: Name and Date of confirmedby patient verbally. FALL SCREENING: Has the patient had 2 falls in the last year or 1 fall with injury or currently using an Ambulatory Assistive Device (Walker, Cane, Wheelchair, Crutches, etc.)? No PATIENT GENDER DATA: Female. status: : No status: NO. PATIENT RELEVANT IMPLANT DATA REVIEWED: Yes RADIOLOGY DEPARTMENT: General X-ray: Exam(s) Completed: Spine X-Ray(s): Lumbar AP / LAT / L5-S1 / FLEX-EXT Flex- Ext only PERIPHERAL IV DATA: Not applicable SIGNED BY: RT Marian(R) September 23, 2021 1:48 PM documented in this encounterUniversity Hospitals Beachwood Medical Center01-28-2022 History of Present illness Narrative* Nadine Chaudhary RT(R) - 09/19/2021 11:50 AM EST Radiology Service Progress Note PATIENT NAME: Elisha Godfrey DATE OF SERVICE: September 19, 2021 TIME: 11:48 AM PATIENT IDENTITY VERIFICATION COMPLETED USING TWO (2) IDENTIFIERS: Name and Date of confirmedby patient verbally. FALL SCREENING: Has the patient had 2 falls in the last year or 1 fall with injury or currently using an Ambulatory Assistive Device (Walker, Cane, Wheelchair, Crutches, etc.)? No PATIENT GENDER DATA: Female. status: : No status: NO. PATIENT RELEVANT IMPLANT DATA REVIEWED: Yes RADIOLOGY DEPARTMENT: General X-ray: Exam(s) Completed: Spine X-Ray(s): Lumbar AP / LAT / L5-S1 / OBL PERIPHERAL IV DATA: Not applicable SIGNED BY: RT Marian(R) September 19, 2021 11:48 AM [facility] History of Past illness Narrative* Problem Noted Date Resolved Date Cystocele, midline 08/03/2012 10/31/2012 Rectocele 08/03/2012 10/31/2012 Uterine prolapse without mention of vaginal wall prolapse 08/03/2012 10/31/2012 Acute appendicitis without mention of peritoniti s 07/16/2007 09/19/2012 Hemorrhage of gastrointestinal tract, unspecifie d 08/28/2019 documented as of this encounter (statuses as of 11/12/2021) [facility] of Past illness Narrative* Problem Noted Date Resolved Date Cystocele, midline 08/03/2012 10/31/2012 Rectocele 08/03/2012 10/31/2012 Uterine prolapse without mention of vaginal wall prolapse 08/03/2012 10/31/2012 Acute appendicitis without mention of peritoniti s 07/16/2007 09/19/2012 Hemorrhage of gastrointestinal tract, unspecifie d 08/28/2019 documented as of this encounter (statuses as of 12/22/2021) [facility] of [facility] illness Narrative* Problem Noted Date Resolved Date Cystocele, midline 08/03/2012 10/31/2012 Rectocele 08/03/2012 10/31/2012 Uterine prolapse without mention of vaginal wall prolapse 08/03/2012 10/31/2012 Acute appendicitis without mention of peritoniti s 07/16/2007 09/19/2012 Hemorrhage of gastrointestinal tract, unspecifie d 08/28/2019 documented as of this encounter (statuses as of 06/18/2022) [facility] of [facility] illness Narrative* Problem Noted Date Resolved Date Cystocele, midline 08/03/2012 10/31/2012 Rectocele 08/03/2012 10/31/2012 Uterine prolapse without mention of vaginal wall prolapse 08/03/2012 10/31/2012 Acute appendicitis without mention of peritoniti s 07/16/2007 09/19/2012 Hemorrhage of gastrointestinal tract, unspecifie d 08/28/2019 documented as of this encounter (statuses as of 08/06/2022) [facility] Narrative* Problem Noted Date Resolved Date Cystocele, midline 08/03/2012 10/31/2012 Rectocele 08/03/2012 10/31/2012 Uterine prolapse without mention of vaginal wall prolapse 08/03/2012 10/31/2012 Acute appendicitis without mention of peritoniti s 07/16/2007 09/19/2012 Hemorrhage of gastrointestinal tract, unspecifie d 08/28/2019 documented as of this encounter (statuses as of 09/09/2022) [facility] of [facility] illness Narrative* Problem Noted Date Resolved Date Cystocele, midline 08/03/2012 10/31/2012 Rectocele 08/03/2012 10/31/2012 Uterine prolapse without mention of vaginal wall prolapse 08/03/2012 10/31/2012 Acute appendicitis without mention of peritoniti s 07/16/2007 09/19/2012 Hemorrhage of gastrointestinal tract, unspecifie d 08/28/2019 documented as of this encounter (statuses as of 09/21/2022) [facility] of [facility] illness Narrative* Problem Noted Date Resolved Date Cystocele, midline 08/03/2012 10/31/2012 Rectocele 08/03/2012 10/31/2012 Uterine prolapse without mention of vaginal wall prolapse 08/03/2012 10/31/2012 Acute appendicitis without mention of peritoniti s 07/16/2007 09/19/2012 Hemorrhage of gastrointestinal tract, unspecifie d 08/28/2019 documented as of this encounter (statuses as of 11/10/2022) [facility] of [facility] Narrative* Problem Noted Date Resolved Date Cystocele, midline 08/03/2012 10/31/2012 Rectocele 08/03/2012 10/31/2012 Uterine prolapse without mention of vaginal wall prolapse 08/03/2012 10/31/2012 Acute appendicitis without mention of peritoniti s 07/16/2007 09/19/2012 Hemorrhage of gastrointestinal tract, unspecifie d 08/28/2019 documented as of this encounter (statuses as of 11/11/2022) [facility] Narrative* Problem Noted Date Resolved Date Cystocele, midline 08/03/2012 10/31/2012 Rectocele 08/03/2012 10/31/2012 Uterine prolapse without mention of vaginal wall prolapse 08/03/2012 10/31/2012 Acute appendicitis without mention of peritoniti s 07/16/2007 09/19/2012 Hemorrhage of gastrointestinal tract, unspecifie d 08/28/2019 documented as of this encounter (statuses as of 11/27/2022) [facility] of [facility] illness Narrative* Problem Noted Date Resolved Date Cystocele, midline 08/03/2012 10/31/2012 Rectocele 08/03/2012 10/31/2012 Uterine prolapse without mention of vaginal wall prolapse 08/03/2012 10/31/2012 Acute appendicitis without mention of peritoniti s 07/16/2007 09/19/2012 Hemorrhage of gastrointestinal tract, unspecifie d 08/28/2019 documented as of this encounter (statuses as of 01/27/2023) [facility] of [facility] illness Narrative* Problem Noted Date Diagnosed Date Resolved Date Cystocele, midline 08/03/2012 3 Rectocele 08/03/2012 10/31/2012 Uterine prolapse without men tion of vaginal wall prolapse 08/03/2012 10/31/2012 Acute appendicitis without m ention of peritonitis 07/16/2007 09/19/2012 Hemorrhage of gastrointestin al tract, unspecified 08/28/2019 documented as of this encounter (statuses as of 05/09/2023) [facility] Narrative* Problem Noted Date Diagnosed Date Resolved Date Cystocele, midline 08/03/2012 3 Rectocele 08/03/2012 10/31/2012 Uterine prolapse without men tion of vaginal wall prolapse 08/03/2012 10/31/2012 Acute appendicitis without m ention of peritonitis 07/16/2007 09/19/2012 Hemorrhage of gastrointestin al tract, unspecified 08/28/2019 documented as of this encounter (statuses as of 06/27/2023) [facility] of [facility] illness Narrative* Problem Noted Date Diagnosed Date Resolved Date Cystocele, midline 08/03/2012 3 Rectocele 08/03/2012 10/31/2012 Uterine prolapse without men tion of vaginal wall prolapse 08/03/2012 10/31/2012 Acute appendicitis without m ention of peritonitis 07/16/2007 09/19/2012 Hemorrhage of gastrointestin al tract, unspecified 08/28/2019 documented as of this encounter (statuses as of 07/22/2023) [facility] of [facility] illness Narrative* Problem Noted Date Diagnosed Date Resolved Date Cystocele, midline 08/03/2012 3 Rectocele 08/03/2012 10/31/2012 Uterine prolapse without men tion of vaginal wall prolapse 08/03/2012 10/31/2012 Acute appendicitis without m ention of peritonitis 07/16/2007 09/19/2012 Hemorrhage of gastrointestin al tract, unspecified 08/28/2019 documented as of this encounter (statuses as of 07/28/2023) [facility]ult [facility] Author Javier Cat [facility] Note Date/Time February 12, 2025 11:0 9am [facility] Medical Records Department [address] [place] [address] Anesthesia Postop Eval I 02/12/25 1108 MR#: [id number] Acct: [id number] Name: ELISHA GODFREY Rep #:[id number] : 1955 69 From: Javier Cat PCP: Dr. Kade Fry MD Status:REG SDC Y Race: C Location: [place] [address] Anesthesia: Postop Eval I Current Vital Signs Temperature: 97.2 F Pulse Rate: 74 Blood Pressure: 112/55 Respiratory Rate: 16 Pulse Ox: 99 Oxygen Delivery Method: Room Air Assessment Airway patent: Yes Spontaneous unlabored respirations: Yes Mental status: Awake and Calm nausea: No Vomiting: No Anesthesia Complication: No Fluid Hydration Crystalloid volume administer (ml): 700 Total IV fluid infused: 700 Progress Note Anesthesia document: Postop Eval 1 completed: Yes 02/12/25 1109 <Electronically signed by Javier Cat > Date _ Javier Ruelas Signature: Date CC: ~ Signed [facility] Work Phone: Consult note Author Jimmy Gillis [facility] Note Date/Time February 12, 2025 12:1 7pm [facility] Medical Records Department [address] [place] [address] Anesthesia Postop Eval II 02/12/25 1149 MR#: [id number] Acct: [id number] Name: ELISHA GODFREY Rep #:[id number] : 1955 69 From: Jimmy Oscar PCP: Dr. Kade Fry MD Status:REG SDC Y Race: C Location: [place] [address] Anesthesia Postop Eval I Sum Postop Eval Completion status Anesthesia document: Postop Eval 1 completed: Yes Anesthesia Postop Eval I Summary Anesthesia Postop Eval I Summary: Anesthesia Postop Eval I: Assessment Summary Airway patent Yes 02/12/25 11:09 [email or web address] Spontaneous unlabored Yes 02/12/25 11:09 [email or web address] respirations Mental status Awake,Calm 02/12/25 11:09 [email or web address] nausea No 02/12/25 11:09 [email or web address] Vomiting No 02/12/25 11:09 [email or web address] Anesthesia Postop Eval I: Fluid Summary Crystalloid volume administer 700 02/12/25 11:09 [email or web address] (ml) Colloids volume administered ( ml) Blood Product volume administered (ml) Total IV fluid infused 700 02/12/25 11:09 [email or web address] Anesthesia Postop Eval I: Summary Notes Anesthesia Complication No 02/12/25 11:09 [email or web address] Anesthesia Complication Comment: Post-operative progress note Anesthesia: Postop Eval II Evaluation Mental status: Awake and Calm Pain Level: 0 nausea: No Vomiting: No Complications Anesthesia Complication: No 02/12/25 1149 <Electronically signed by Jimmy Gillis MD> Date _ Jimmy Gillis MD Cosigner Signature: Date CC: ~ Signed [facility] Work Phone: evaluation note* Diagnosis Tortuous colon- Primary Volvulus Internal hemorrhoids Internal hemorrhoids without mention of complication Diverticulosis Diverticulosis of colon (without mention of hemorrhage) Dysphagia, unspecified type documented in this encounter [facility] CenterEvalunemours foundation noteNo assessment information availableWFayette County Memorial Hospital Work Phone: Evaluation note* Diagnosis Tick bite of right thigh, initial encounter- Primary [facility] Hypertension, unspecified type [facility] Diagnosis Essential hypertension- Primary Unspecified essential hypertension Mixed hyperlipidemia Cassidy's thyroiditis Chronic lymphocytic thyroiditis Medication management Encounter for long-term (current) use of other medications [facility] Diagnosis Medicare annual wellness visit, initial- Primary Routine general medical examination at a [facility] facility Advance directive discussed with patient Other [...] Dermatophytosis of nail [facility] Diagnosis Encounter for screening mammogram for breast cancer [facility] Hypertension, unspecified type [facility] Diagnosis Asymptomatic menopause- Primary [facility] Diagnosis Encounter for screening mammogram for breast cancer [facility] Diagnosis Hypertension, unspecified type [facility] Diagnosis Cat bite of left hand, initial encounter [facility] Diagnosis Spondylolisthesis at L4-L5 level [facility]* Diagnosis Chronic low back pain without sciatica, unspecified back pain laterality [facility] Diagnosis Hyperlipidemia, mixed- Primary Mixed hyperlipidemia Hypertension, essential Unspecified essential hypertension Family history of thyroid disease Family history of other endocrine and metabolic diseases Elevated glucose Other abnormal glucose Essential hypertension Unspecified essential hypertension Mixed hyperlipidemia GERD without esophagitis Esophageal reflux Cassidy's thyroiditis Chronic lymphocytic thyroiditis Medication management Encounter for long-term (current) use of other medications Elevated blood sugar Other abnormal glucose [facility] Diagnosis Encounter for Medicare annual wellness exam- Primary Routine general medical examination at a health care facility Essential hypertension Unspecified essential hypertension Mixed hyperlipidemia Elevated blood sugar Other abnormal glucose GERD without esophagitis Esophageal reflux Dysphagia, unspecified type Cassidy's thyroiditis Chronic lymphocytic thyroiditis Fibromyalgia Mylagia and myositis, unspecified Mixed stress and urge urinary incontinence Mixed incontinence urge and stress (male)(female) Osteopenia, senile Disorder of bone and cartilage, unspecified Inflammatory arthritis Unspecified inflammatory polyarthropathy Severe obesity (BMI 35.0-39.9) with comorbidity (HCC) Morbid obesity Numbness and tingling in left hand Disturbance of skin sensation Trigger finger of left thumb Pain in toes of both feet Advance directive discussed with patient Other specified counseling Encounter for screening mammogram for breast cancer Encounter for screening examination for other mental health and behavioral disorders Screening for depression Screening for colon cancer Special screening for malignant neoplasms, colon [facility] Diagnosis GERD without esophagitis Esophageal reflux [facility] Diagnosis Onychodystrophy- Primary Other specified disease of nail Pain in toes of both feet Diminished pulses in lower extremity Other symptoms involving cardiovascular system [facility] Diagnosis Raynaud phenomenon due to autoimmune disease (HCC)- Primary Numbness and tingling in left hand Disturbance of skin sensation Trigger finger of left thumb Carpal tunnel syndrome of left wrist Carpal tunnel syndrome [facility] Diagnosis Onychodystrophy- Primary Other specified disease of nail [facility] Diagnosis Abnormal mammogram- Primary Abnormal mammogram, unspecified [facility] Diagnosis Open wound of toe, initial encounter- Primary [facility] Diagnosis Carpal tunnel syndrome of left wrist- Primary Carpal tunnel syndrome Trigger thumb, left thumb [facility]* Diagnosis Abnormal mammogram Abnormal mammogram, unspecified [facility] Diagnosis Abnormal mammogram Abnormal mammogram, unspecified [facility]* Diagnosis Abnormal mammogram- Primary Abnormal mammogram, unspecified [facility]* General [facility] Location: None [facility] Work Phone: Reason for referral (narrative)* Diagnostic Procedure Only (Routine) - Authorized Specialty Diagnoses / Procedures Referred By Karishma canas Referred To Contact [facility] Diagnoses Encounter for screening mammogram for breast cancer Procedures LEIGH SCREENING SCREENING MAMMOGRAPHY BI 2-VIEW BREAST INC Ena Vasques PA-C [address] [place] [address] Imaging [address] [address] Referral ID Status Reason Start Date Expiration Date Visits Requested Visits Authorized [id number] Authorized Auto-Generat ed Referral 09/21/2022 10/21/2023 1 1 [facility] for referral (narrative)* Diagnostic Procedure Only (Routine) - Closed Specialty Diagnoses / Procedures Referred By Karishma canas Referred To Contact [facility] Diagnoses Encounter for screening mammogram for breast cancer Procedures LEIGH SCREENING SCREENING MAMMOGRAPHY BI 2-VIEW BREAST INC Ena Vasques PA-C [address] [place] [address] [facility] [address] [place] [address] Referral ID Status Reason Start Date Expiration Date V isits Requested Visits Authorized [id number] Closed Auto-Generate d Referral 09/21/2022 10/21/2023 1 1 [facility] for referral (narrative)* Diagnostic Procedure Only (Routine) - Closed Specialty Diagnoses / Procedures Referred By Contac t Referred To Contact [facility] Diagnoses Encounter for screening mammogram for breast cancer Procedures LEIGH SCREENING SCREENING MAMMOGRAPHY BI 2-VIEW BREAST INC Ena Vasques PA-C [address] [place] [address] [facility] [address] [place] [address] Referral ID Status Reason Start Date Expiration Date V isits Requested Visits Authorized [id number] Closed Auto-Generate d Referral 09/21/2023 10/20/2024 1 1 [facility] for referral (narrative)* Diagnostic Procedure Only (Urgent) - Closed Specialty Diagnoses / Procedures Referred By Contac t Referred To Contact [facility] IMAGING Diagnoses Cat bite of left hand, initial encounter Procedures XR HAND GENERAL 3V PA/LAT/OBL LEFT RADEX HAND MINIMUM 3 VIEWS Yonas Cisse MD [facility] [place] [address] [place] [address] Referral ID Status Reason Start Date Expiration Date V isits Requested Visits Authorized [id number] Closed Auto-Generate d Referral 08/24/2023 09/22/2024 1 1 [facility] for referral (narrative)* Diagnostic Procedure Only (Routine) - Closed Specialty Diagnoses / Procedures Referred By Contac t Referred To Contact XR IMAGING Diagnoses Spondylolisthesis at L4-L5 level Procedures XR LUMBAR LIMITED 2V FLEX/EXT RADEX SPINE LUMBOSACRAL 2/3 VIEWS Kade Fry MD [facility] [place] [address] [place] [address] Referral ID Status Reason Start Date Expiration Date V isits Requested Visits Authorized [id number] Closed Auto-Generate d Referral 09/23/2021 10/23/2022 1 1 [facility] for referral (narrative)* Diagnostic Procedure Only (Routine) - Closed Specialty Diagnoses / Procedures Referred By Contac t Referred To Contact XR IMAGING Diagnoses Chronic low back pain without sciatica, unspecified back pain laterality Procedures XR LUMBAR PARS DEFECT 4V AP/LAT/BOTH OBL RADEX SPINE LUMBOSACRAL MINIMUM 4 VIEWS Kade Fry MD [address] [place] [address] [place] [address] Referral ID Status Reason Start Date Expiration Date V isits Requested Visits Authorized [id number] Closed Auto-Generate d Referral 09/19/2021 10/19/2022 1 1 [facility] for referral (narrative)No reason for referral information availableWFayette County Memorial Hospital Work Phone: Reason for visit Narrative* Diagnostic Procedure Only (Routine) - Closed Specialty Diagnoses / Procedures Referred By Contac t Referred To Contact [facility] Diagnoses Encounter for screening mammogram for breast cancer Procedures LEIGH SCREENING SCREENING MAMMOGRAPHY BI 2-VIEW BREAST INC CAD Ena Aguiar PA-C [address] [place] [address] [facility] [address] [place] [address] Referral ID Status Reason Start Date Expiration Date V isits Requested Visits Authorized [id number] Closed Auto-Generate d Referral 09/21/2022 10/21/2023 1 1 [facility] for visit Narrative* Diagnostic Procedure Only (Routine) - Closed Specialty Diagnoses / Procedures Referred By Contac t Referred To Contact [facility] Diagnoses Encounter for screening mammogram for breast cancer Procedures LEIGH SCREENING SCREENING MAMMOGRAPHY BI 2-VIEW BREAST INC Ena Vasques PA-C [address] [place] [address] [facility] [address] [place] [address] Referral ID Status Reason Start Date Expiration Date V isits Requested Visits Authorized [id number] Closed Auto-Generate d Referral 09/21/2023 10/20/2024 1 1 [facility] for visit Narrative* Diagnostic Procedure Only (Urgent) - Closed Specialty Diagnoses / Procedures Referred By Contac t Referred To Contact XR IMAGING Diagnoses Cat bite of left hand, initial encounter Procedures XR HAND GENERAL 3V PA/LAT/OBL LEFT RADEX HAND MINIMUM 3 VIEWS Yonas Cisse MD [address] [place] [address] [place] [address] Referral ID Status Reason Start Date Expiration Date V isits Requested Visits Authorized [id number] Closed Auto-Generate d Referral 08/24/2023 09/22/2024 1 1 [facility] for visit Narrative* Diagnostic Procedure Only (Routine) - Closed Specialty Diagnoses / Procedures Referred By Contac t Referred To Contact XR IMAGING Diagnoses Spondylolisthesis at L4-L5 level Procedures XR LUMBAR LIMITED 2V FLEX/EXT RADEX SPINE LUMBOSACRAL 2/3 VIEWS Kade Fry MD [address] [place] [address] [place] [address] Referral ID Status Reason Start Date Expiration Date V isits Requested Visits Authorized [id number] Closed Auto-Generate d Referral 09/23/2021 10/23/2022 1 1 [facility] for visit Narrative* Diagnostic Procedure Only (Routine) - Closed Specialty Diagnoses / Procedures Referred By Contac t Referred To Contact XR IMAGING Diagnoses Chronic low back pain without sciatica, unspecified back pain laterality Procedures XR LUMBAR PARS DEFECT 4V AP/LAT/BOTH OBL RADEX SPINE LUMBOSACRAL MINIMUM 4 VIEWS Kade Fry MD [facility] [place] [address] [place] [address] Referral ID Status Reason Start Date Expiration Date V isits Requested Visits Authorized [id number] Closed Auto-Generate d Referral 09/19/2021 10/19/2022 1 1 [facility] for visit Narrative* Diagnostic Procedure Only (Routine) - Closed Specialty Diagnoses / Procedures Referred By Contac t Referred To Contact [facility] Diagnoses Encounter for screening mammogram for breast cancer Procedures LEIGH SCREENING W IRISH SCREENING DIGITAL BREAST TOMOSYNTHESIS BI SCREENING MAMMOGRAPHY BI 2-[place] [address] [place] [address] Phone: tel: fax: [facility] [address] [place] [address] Referral ID Status Reason Start Date Expiration Date V isits Requested Visits Authorized [id number] Closed Auto-Generate d Referral 09/21/2024 10/20/2025 1 1 [facility] for visit Narrative* Diagnostic Procedure Only (Routine) - Closed Specialty Diagnoses / Procedures Referred By Contac t Referred To Contact [facility] Diagnoses Abnormal mammogram Procedures LEIGH DIAGNOSTIC RIGHT DIAGNOSTIC MAMMOGRAPHY COMPUTER-AIDED DETCJ UNI Kade Fry MD [address] [place] [address] Phone: tel: fax: [facility] [address] [place] [address] Referral ID Status Reason Start Date Expiration Date V isits Requested Visits Authorized [id number] Closed Auto-Generate d Referral 11/13/2024 12/13/2025 1 1 [facility] for visit Narrative* Diagnostic Procedure Only (Routine) - Closed Specialty Diagnoses / Procedures Referred By Karishma canas Referred To Contact [facility] Diagnoses Abnormal mammogram Procedures US BREAST LTD RIGHT US BREAST UNI REAL TIME WITH IMAGE LIMITED Kade Fry MD [address] [place] [address] Phone: tel: fax: [facility] [address] [place] [address] Referral ID Status Reason Start Date Expiration Date V isits Requested Visits Authorized [id number] Closed Auto-Generate d Referral 11/13/2024 12/13/2025 1 1 [facility] Chief Complaint and Reason for Visit Chief Complaint PFIZER VACCINE Chief Complaint PAIN- COPY PCP- LABS AND XRAY Chief Complaint PAIN- COPY PCP Chief Complaint PAIN- COPY PCP PAIN- COPY PCP Chief Complaint PAIN- COPY PCP pain- copy pcp Chief Complaint pain- copy pcp PAIN- COPY PCP Chief Complaint Admit Date PAIN- COPY PCP October 03, 2024 7:52am LUE; NUMBNESS AND TINGLING IN LEFT HAND November 14, 2024 10:21am LUE; NUMBNESS AND TINGLING IN LEFT HAND November 14, 2024 11:31am Chief Complaint Admit Date PAIN- COPY PCP October 03, 2024 7:52am LUE; NUMBNESS AND TINGLING IN LEFT HAND November 14, 2024 10:21am LUE; NUMBNESS AND TINGLING IN LEFT HAND November 14, 2024 11:31am Gastroesophageal reflux disease (GERD) [facility] 2024 8:21am Reason for Visit Admit Date Abdominal pain November 27, 2024 8:21 am GERD (gastroesophageal reflux disease) A pri 2024 8:21am Personal history of colon polyps, unspec ified November 27, 2024 8:21am Chief Complaint Admit Date PAIN- COPY PCP October 03, 2024 7:52am LUE; NUMBNESS AND TINGLING IN LEFT HAND November 14, 2024 10:21am LUE; NUMBNESS AND TINGLING IN LEFT HAND November 14, 2024 11:31am Gastroesophageal reflux disease (GERD) A [facility] 2024 8:21am BLOATING, GERD December 18, 2024 12: 30pm PAIN- COPY PCP December 26, 2024 8:27am Chief Complaint Admit Date LUE; NUMBNESS AND TINGLING IN LEFT HAND November 14, 2024 10:21am LUE; NUMBNESS AND TINGLING IN LEFT HAND November 14, 2024 11:31am Gastroesophageal reflux disease (GERD) A [facility] 2024 8:21am BLOATING, GERD December 18, 2024 12: 30pm PAIN- COPY PCP December 26, 2024 8:27am Reason for Visit Admit Date Abdominal pain November 27, 2024 8:21 am GERD (gastroesophageal reflux disease) A [email or web address] 8:21am Personal history of colon polyps, unspec ified November 27, 2024 8:21am Abdominal pain February 12, 2025 8:46 am GERD (gastroesophageal reflux disease) J formerly [facility] 2024 8:46am Personal history of colon polyps, unspec ified February 12, 2025 8:46am Chief Complaint Admit Date LUE; NUMBNESS AND TINGLING IN LEFT HAND November 14, 2024 10:21am LUE; NUMBNESS AND TINGLING IN LEFT HAND November 14, 2024 11:31am Gastroesophageal reflux disease (GERD) A [facility] 2024 8:21am BLOATING, GERD December 18, 2024 12: 30pm PAIN- COPY PCP December 26, 2024 8:27am Test Result March 09, 2025 8:53 am Reason for Visit Admit Date Abdominal pain November 27, 2024 8:21 am GERD (gastroesophageal reflux disease) A pril 2024 8:21am Personal history of colon polyps, unspec ified November 27, 2024 8:21am Abdominal pain February 12, 2025 8:46 am GERD (gastroesophageal reflux disease) J une 2024 8:46am Personal history of colon polyps, unspec ified February 12, 2025 8:46am Abdominal pain March 09, 2025 8:53 am Stenosis colon March 09, 2025 8:53 am Chief Complaint Admit Date BLOATING, GERD December 18, 2024 12: 30pm PAIN- COPY PCP December 26, 2024 8:27am Test Result March 09, 2025 8:53 am PAIN- COPY PCP March 27, 2025 12: 40pm colon stenosis seen w/ colonoscopy Augus t 2024 2:47pm Reason for Visit Admit Date GERD (gastroesophageal reflux disease) J formerly [facility] 2024 8:46am Personal history of colon polyps, unspec ified February 12, 2025 8:46am Abdominal pain February 12, 2025 8:46 am Abdominal pain March 09, 2025 8:53 am Stenosis colon March 09, 2025 8:53 am Chief Complaint Admit Date BLOATING, GERD December 18, 2024 12: 30pm PAIN- COPY PCP December 26, 2024 8:27am Test Result March 09, 2025 8:53 am PAIN- COPY PCP March 27, 2025 12: 40pm colon stenosis seen w/ colonoscopy Augus t 2024 2:47pm Test Result-CT SCAN April 06, 2025 1: 13pm Reason for Visit Admit Date GERD (gastroesophageal reflux disease) J formerly [facility] 2024 8:46am Personal history of colon polyps, unspec ified February 12, 2025 8:46am Abdominal pain February 12, 2025 8:46 am Abdominal pain March 09, 2025 8:53 am Stenosis colon March 09, 2025 8:53 am Spigelian hernia April 06, 2025 1: 13pm Abdominal pain April 06, 2025 1: 13pm Stenosis colon April 06, 2025 1: 13pm Chief Complaint Admit Date Test Result March 09, 2025 8:53 am PAIN- COPY PCP March 27, 2025 12: 40pm colon stenosis seen w/ colonoscopy Augus t 2024 2:47pm Test Result-CT SCAN April 06, 2025 1: 13pm HERNIA/ GALLSTONE May 03, 2025 1:16pm Reason for Visit Admit Date GERD (gastroesophageal reflux disease) J une 2024 8:46am Personal history of colon polyps, unspec ified February 12, 2025 8:46am Abdominal pain February 12, 2025 8:46 am Abdominal pain March 09, 2025 8:53 am Stenosis colon March 09, 2025 8:53 am Spigelian hernia April 06, 2025 1: 13pm Abdominal pain April 06, 2025 1: 13pm Chief Complaint Admit Date Test Result March 09, 2025 8:53 am PAIN- COPY PCP March 27, 2025 12: 40pm colon stenosis seen w/ colonoscopy Augus t 2024 2:47pm Test Result-CT SCAN April 06, 2025 1: 13pm HERNIA/ GALLSTONE May 03, 2025 1:16pm PREOP May 15, 2025 8:09am Reason for Visit Admit Date GERD (gastroesophageal reflux disease) J formerly [facility] 2024 8:46am Personal history of colon polyps, unspec ified February 12, 2025 8:46am Abdominal pain February 12, 2025 8:46 am Abdominal pain March 09, 2025 8:53 am Stenosis colon March 09, 2025 8:53 am Spigelian hernia April 06, 2025 1: 13pm Abdominal pain April 06, 2025 1: 13pm Cholelithiasis May 03, 2025 1:16pm Spigelian hernia May 03, 2025 1:16pm Advance Directives Advance Directive Response Recorded Date/ Time Advance Directives No May 26, 2016 11:02am Living Will No May 26 11:02am Power of Emergency Management Coordinator No May 26 11:02am Documents on File Type Date Recorded Patient Stain Wiper Expl anation Advance Directive(s) 10/29/2021 6:46 AM Advance Directive(s) 03/23/2016 11:38 AM Advance Directive Response Recorded Date/ Time Advance Directives No May 26, 2016 10:02am Living Will No October 4th, 201 6 10:02am Power of Emergency Management Coordinator No May 26 016 10:02am Advance Directive Response Recorded Date/ Time Advance Directives No May 26, 2016 11:02am Advance Directive Response Recorded Date/ Time Do you have a Healthcare Power of Emergency Management Coordinator? No February 08, 2025 11:46am Advance Directives No May 26, 2016 11:02am Assessments No Assessments Information Available Reason for Referral Specialty Diagnoses / Procedures Referred By Contac t Referred To Contact Podiatry Diagnoses Pain in toes of both feet Procedures CONSULT TO PODIATRY OFFICE/OUTPATIENT [facility] 60 MINUTES Kade Fry MD [address] [place] [address] Referral ID Status Reason Start Date Expiration Date Visits Requested Visits Authorized [id number] Authorized PCP Requested Referral 09/21/2024 09/21/2025 1 1 Specialty Diagnoses / Procedures Referred By Contac t Referred To Contact Orthopedics Diagnoses Numbness and tingling in left hand Trigger finger of left thumb Procedures CONSULT TO ORTHOPAEDICS OFFICE/OUTPATIENT [facility] 60 MINUTES Kade Fry MD [address] [place] [address] Referral ID Status Reason Start Date Expiration Date Visits Requested Visits Authorized [id number] Authorized PCP Requested Referral 09/21/2024 09/21/2025 1 1 Specialty Diagnoses / Procedures Referred By Contac t Referred To Contact Gastroenterology Diagnoses GERD without esophagitis Screening for colon cancer Dysphagia, unspecified type Procedures CONSULT TO GASTROENTEROLOGY OFFICE/OUTPATIENT [facility] 60 MINUTES Kade Fry MD [address] [place] [address] Referral ID Status Reason Start Date Expiration Date Visits Requested Visits Authorized [id number] Authorized PCP Requested Referral 09/21/2024 09/21/2025 1 1 Specialty Diagnoses / Procedures Referred By Contac t Referred To Contact [facility] Diagnoses Encounter for screening mammogram for breast cancer Procedures LEIGH SCREENING W IRIHS SCREENING DIGITAL BREAST TOMOSYNTHESIS BI SCREENING MAMMOGRAPHY BI 2-VIEW BREAST INC CAD Kade Fry MD [address] [place] [address] [facility] [address] [place] [address] Referral ID Status Reason Start Date Expiration Date Visits Requested Visits Authorized [id number] Authorized Auto-Generat ed Referral 09/21/2024 10/20/2025 1 1 Family History Relationship Condition Age at Onset Recorded Date/T neelam mother Arthritis Unknown brother Arthritis Unknown Malignant neoplasm of colon Unknown Diabetes mellitus Unknown Cardiac disease Unknown Relationship Condition Age at Onset Recorded Date/T neelam mother Arthritis Unknown brother Arthritis Unknown Diabetes mellitus Unknown Cardiac disease Unknown Hemorrhagic disorder Unknown brother Malignant neoplasm of colon Unknown Summary Purpose Additional Source Comments Source Comments (unrecognize d section and content) In the event this informatio n is protected by the Federal Confidentiality of Alcohol and Drug Abuse Patient Records regulations: The Federal rules restrict any use of the information to criminally investigate or prosecute any alcohol or drug abuse patient.[facility] CenterIn the event this information is protected by the Federal Confidentiality of Alcohol and Drug Abuse Patient Records regulations: The Federal rules restrict any use of the information to criminally investigate or prosecute any alcohol or drug abuse patient.[facility] CenterIn the event this information is protected by the Federal Confidentiality of Alcohol and Drug Abuse Patient Records regulations: The Federal rules restrict any use of the information to criminally investigate or prosecute any alcohol or drug abuse patient.[facility] CenterIn the event this information is protected by the Federal Confidentiality of Alcohol and Drug Abuse Patient Records regulations: The Federal rules restrict any use of the information to criminally investigate or prosecute any alcohol or drug abuse patient.[facility] CenterIn the event this information is protected by the Federal Confidentiality of Alcohol and Drug Abuse Patient Records regulations: The Federal rules restrict any use of the information to criminally investigate or prosecute any alcohol or drug abuse patient.[facility] CenterIn the event this information is protected by the Federal Confidentiality of Alcohol and Drug Abuse Patient Records regulations: The Federal rules restrict any use of the information to criminally investigate or prosecute any alcohol or drug abuse patient.[facility] CenterIn the event this information is protected by the Federal Confidentiality of Alcohol and Drug Abuse Patient Records regulations: The Federal rules restrict any use of the information to criminally investigate or prosecute any alcohol or drug abuse patient.[facility] CenterIn the event this information is protected by the Federal Confidentiality of Alcohol and Drug Abuse Patient Records regulations: The Federal rules restrict any use of the information to criminally investigate or prosecute any alcohol or drug abuse patient.[facility] CenterIn the event this information is protected by the Federal Confidentiality of Alcohol and Drug Abuse Patient Records regulations: The Federal rules restrict any use of the information to criminally investigate or prosecute any alcohol or drug abuse patient.[facility] CenterIn the event this information is protected by the Federal Confidentiality of Alcohol and Drug Abuse Patient Records regulations: The Federal rules restrict any use of the information to criminally investigate or prosecute any alcohol or drug abuse patient.[facility] CenterIn the event this information is protected by the Federal Confidentiality of Alcohol and Drug Abuse Patient Records regulations: The Federal rules restrict any use of the information to criminally investigate or prosecute any alcohol or drug abuse patient.[facility] CenterIn the event this information is protected by the Federal Confidentiality of Alcohol and Drug Abuse Patient Records regulations: The Federal rules restrict any use of the information to criminally investigate or prosecute any alcohol or drug abuse patient.[facility] CenterIn the event this information is protected by the Federal Confidentiality of Alcohol and Drug Abuse Patient Records regulations: The Federal rules restrict any use of the information to criminally investigate or prosecute any alcohol or drug abuse patient.[facility] CenterIn the event this information is protected by the Federal Confidentiality of Alcohol and Drug Abuse Patient Records regulations: The Federal rules restrict any use of the information to criminally investigate or prosecute any alcohol or drug abuse patient.[facility] CenterIn the event this information is protected by the Federal Confidentiality of Alcohol and Drug Abuse Patient Records regulations: The Federal rules restrict any use of the information to criminally investigate or prosecute any alcohol or drug abuse patient.[facility] CenterIn the event this information is protected by the Federal Confidentiality of Alcohol and Drug Abuse Patient Records regulations: The Federal rules restrict any use of the information to criminally investigate or prosecute any alcohol or drug abuse patient.[facility] CenterIn the event this information is protected by the Federal Confidentiality of Alcohol and Drug Abuse Patient Records regulations: The Federal rules restrict any use of the information to criminally investigate or prosecute any alcohol or drug abuse patient.[facility] CenterIn the event this information is protected by the Federal Confidentiality of Alcohol and Drug Abuse Patient Records regulations: The Federal rules restrict any use of the information to criminally investigate or prosecute any alcohol or drug abuse patient.[facility] CenterIn the event this information is protected by the Federal Confidentiality of Alcohol and Drug Abuse Patient Records regulations: The Federal rules restrict any use of the information to criminally investigate or prosecute any alcohol or drug abuse patient.[facility] CenterIn the event this information is protected by the Federal Confidentiality of Alcohol and Drug Abuse Patient Records regulations: The Federal rules restrict any use of the information to criminally investigate or prosecute any alcohol or drug abuse patient.[facility] CenterIn the event this information is protected by the Federal Confidentiality of Alcohol and Drug Abuse Patient Records regulations: The Federal rules restrict any use of the information to criminally investigate or prosecute any alcohol or drug abuse patient.[facility] CenterIn the event this information is protected by the Federal Confidentiality of Alcohol and Drug Abuse Patient Records regulations: The Federal rules restrict any use of the information to criminally investigate or prosecute any alcohol or drug abuse patient.[facility] CenterIn the event this information is protected by the Federal Confidentiality of Alcohol and Drug Abuse Patient Records regulations: The Federal rules restrict any use of the information to criminally investigate or prosecute any alcohol or drug abuse patient.[facility] CenterIn the event this information is protected by the Federal Confidentiality of Alcohol and Drug Abuse Patient Records regulations: The Federal rules restrict any use of the information to criminally investigate or prosecute any alcohol or drug abuse patient.[facility] CenterIn the event this information is protected by the Federal Confidentiality of Alcohol and Drug Abuse Patient Records regulations: The Federal rules restrict any use of the information to criminally investigate or prosecute any alcohol or drug abuse patient.[facility] CenterIn the event this information is protected by the Federal Confidentiality of Alcohol and Drug Abuse Patient Records regulations: The Federal rules restrict any use of the information to criminally investigate or prosecute any alcohol or drug abuse patient.[facility] CenterIn the event this information is protected by the Federal Confidentiality of Alcohol and Drug Abuse Patient Records regulations: The Federal rules restrict any use of the information to criminally investigate or prosecute any alcohol or drug abuse patient.[facility] CenterIn the event this information is protected by the Federal Confidentiality of Alcohol and Drug Abuse Patient Records regulations: The Federal rules restrict any use of the information to criminally investigate or prosecute any alcohol or drug abuse patient.[facility] CenterIn the event this information is protected by the Federal Confidentiality of Alcohol and Drug Abuse Patient Records regulations: The Federal rules restrict any use of the information to criminally investigate or prosecute any alcohol or drug abuse patient.[facility] CenterIn the event this information is protected by the Federal Confidentiality of Alcohol and Drug Abuse Patient Records regulations: The Federal rules restrict any use of the information to criminally investigate or prosecute any alcohol or drug abuse patient.[facility] CenterIn the event this information is protected by the Federal Confidentiality of Alcohol and Drug Abuse Patient Records regulations: The Federal rules restrict any use of the information to criminally investigate or prosecute any alcohol or drug abuse patient.[facility] CenterIn the event this information is protected by the Federal Confidentiality of Alcohol and Drug Abuse Patient Records regulations: The Federal rules restrict any use of the information to criminally investigate or prosecute any alcohol or drug abuse patient.[facility] CenterIn the event this information is protected by the Federal Confidentiality of Alcohol and Drug Abuse Patient Records regulations: The Federal rules restrict any use of the information to criminally investigate or prosecute any alcohol or drug abuse patient.[facility] CenterIn the event this information is protected by the Federal Confidentiality of Alcohol and Drug Abuse Patient Records regulations: The Federal rules restrict any use of the information to criminally investigate or prosecute any alcohol or drug abuse patient.[facility] CenterIn the event this information is protected by the Federal Confidentiality of Alcohol and Drug Abuse Patient Records regulations: The Federal rules restrict any use of the information to criminally investigate or prosecute any alcohol or drug abuse patient.[facility] CenterIn the event this information is protected by the Federal Confidentiality of Alcohol and Drug Abuse Patient Records regulations: The Federal rules restrict any use of the information to criminally investigate or prosecute any alcohol or drug abuse patient.[facility] CenterIn the event this information is protected by the Federal Confidentiality of Alcohol and Drug Abuse Patient Records regulations: The Federal rules restrict any use of the information to criminally investigate or prosecute any alcohol or drug abuse patient.[facility] CenterIn the event this information is protected by the Federal Confidentiality of Alcohol and Drug Abuse Patient Records regulations: The Federal rules restrict any use of the information to criminally investigate or prosecute any alcohol or drug abuse patient.[facility] CenterIn the event this information is protected by the Federal Confidentiality of Alcohol and Drug Abuse Patient Records regulations: The Federal rules restrict any use of the information to criminally investigate or prosecute any alcohol or drug abuse patient.[facility] CenterIn the event this information is protected by the Federal Confidentiality of Alcohol and Drug Abuse Patient Records regulations: The Federal rules restrict any use of the information to criminally investigate or prosecute any alcohol or drug abuse patient.[facility] CenterIn the event this information is protected by the Federal Confidentiality of Alcohol and Drug Abuse Patient Records regulations: The Federal rules restrict any use of the information to criminally investigate or prosecute any alcohol or drug abuse patient.[facility] CenterIn the event this information is protected by the Federal Confidentiality of Alcohol and Drug Abuse Patient Records regulations: The Federal rules restrict any use of the information to criminally investigate or prosecute any alcohol or drug abuse patient.[facility] CenterIn the event this information is protected by the Federal Confidentiality of Alcohol and Drug Abuse Patient Records regulations: The Federal rules restrict any use of the information to criminally investigate or prosecute any alcohol or drug abuse patient.[facility] CenterIn the event this information is protected by the Federal Confidentiality of Alcohol and Drug Abuse Patient Records regulations: The Federal rules restrict any use of the information to criminally investigate or prosecute any alcohol or drug abuse patient.[facility] CenterIn the event this information is protected by the Federal Confidentiality of Alcohol and Drug Abuse Patient Records regulations: The Federal rules restrict any use of the information to criminally investigate or prosecute any alcohol or drug abuse patient.[facility] CenterIn the event this information is protected by the Federal Confidentiality of Alcohol and Drug Abuse Patient Records regulations: The Federal rules restrict any use of the information to criminally investigate or prosecute any alcohol or drug abuse patient.[facility] CenterIn the event this information is protected by the Federal Confidentiality of Alcohol and Drug Abuse Patient Records regulations: The Federal rules restrict any use of the information to criminally investigate or prosecute any alcohol or drug abuse patient.[facility] CenterIn the event this information is protected by the Federal Confidentiality of Alcohol and Drug Abuse Patient Records regulations: The Federal rules restrict any use of the information to criminally investigate or prosecute any alcohol or drug abuse patient.[facility] CenterIn the event this information is protected by the Federal Confidentiality of Alcohol and Drug Abuse Patient Records regulations: The Federal rules restrict any use of the information to criminally investigate or prosecute any alcohol or drug abuse patient.[facility] CenterIn the event this information is protected by the Federal Confidentiality of Alcohol and Drug Abuse Patient Records regulations: The Federal rules restrict any use of the information to criminally investigate or prosecute any alcohol or drug abuse patient.[facility] Reason for Visit (unrecogniz ed section and content) Reason Comments Follow Up EGD and Colonoscopy Reason Comments external labs Reason Comments Trauma Pt reported tick emb edded (RT) thigh, denied pain. Reason Onset Date Comments Refill Request 08/05/2022 Reason Comments Lab Orders Reason Comments Yearly Exam Reason Comments Results Reason Comments Results, Lab Reason Onset Date Comments Population Health Navigation Outreach 01/26/2023 [employer] Care Gaps Reason Comments Outside [id number] Ordered Reason Onset Date Comments Refill Request 07/21/2023 Reason Comments Bone Density Test Question Reason Comments Medication Problem Reason Comments Refill Request Reason Onset Date Comments Allied Health Visit 02/11/2024 Medication A dherence Outreach Reason Comments Results Outside labs Reason Onset Date Comments Medication Problem 08/11/2024 Orders 08/11/2024 Reason Comments Medicare Wellness Exam Reason Onset Date Comments Refill Request 09/25/2024 Reason Comments New Pain Nail Fungus Specialty Diagnoses / Procedures Referred By Karishma canas Referred To Contact Podiatry Diagnoses Pain in toes of both feet Procedures CONSULT TO PODIATRY OFFICE/OUTPATIENT [facility] 60 MINUTES Kade Fry MD [address] [place] [address] Phone: tel: fax: Referral ID Status Reason Start Date Expiration Date V isits Requested Visits Authorized [id number] Closed PCP Requested Referral 09/21/2024 09/21/2025 1 1 Reason Comments New Numbness Trigger Finger Referred by Dr. Steve apodaca Specialty Diagnoses / Procedures Referred By Karishma canas Referred To Contact Orthopedics Diagnoses Numbness and tingling in left hand Trigger finger of left thumb Procedures CONSULT TO ORTHOPAEDICS OFFICE/OUTPATIENT [facility]DM 60 MINUTES Kade Fry MD [address] [place] [address] Phone: tel: fax: Referral ID Status Reason Start Date Expiration Date V isits Requested Visits Authorized [id number] Closed PCP Requested Referral 09/21/2024 09/21/2025 1 1 Reason Comments Established Patient Great toe and 2nd to e Procedure Great toe and 2nd to e Established Patient Great toe Procedure Great toe Reason Comments Mammogram Result Call Back right breast diag mamm and us cb per ym Reason Onset Date Comments Results 11/13/2024 Reason Comments Consult Outside Neurology Reason Comments Follow Up Reason Comments Established Patient Follow Up Reason Comments Results Outside facility lab s Reason Comments Outside Gastric Emptying Study Reason Onset Date Comments Refill Request 01/19/2025 Reason Comments Outside Testing EGD, Colonoscopy, an d GI OV note Reason Comments ext document Surgery note Outside [id number] Ordered Care Teams (unrecognized sec tion and content) Fitting Room Supervisor Relationship Specialty Start Date End Date Kade Fry MD [address] [place] [address] PCP - General Family Practice 08/28/19 Fitting Room Supervisor Relationship Specialty Start Date End Date Kade Fry MD [address] [place] [address] PCP - General Family Practice 08/28/19 Fitting Room Supervisor Relationship Specialty Start Date End Date Kade Fry MD [facility] [place] [address] PCP - General Family Medicine 08/28/19 Fitting Room Supervisor Relationship Specialty Start Date End Date Kade Fry MD [address] [place] [address] PCP - General Family Medicine 08/28/19 Fitting Room Supervisor Relationship Specialty Start Date End Date Kade Fry MD [address] [place] [address] [phone] PCP - General Family Medicine 08/28/19 Team Status: Active Member Role Status Dates No Primary Care Physician Family Provider Active Dr. Kade Fry MD Primary Care Provider Active Team Status: Inactive Member Role Status Dates Dr. Kade Fry MD Primary Care Provider Active Dr. Dina Ferrer MD Attending Provider, Referring Provider Active Fitting Room Supervisor Relationship Specialty Start Date End Date Kade Fry MD [address] [place] [address] PCP - General Family Medicine 08/28/19 Fitting Room Supervisor Relationship Specialty Start Date End Date Kade Fry MD [address] [place] [address] PCP - General Family Medicine 08/28/19 Fitting Room Supervisor Relationship Specialty Start Date End Date Kade Fry MD [address] [place] [address] PCP - General Family Medicine 08/28/19 Fitting Room Supervisor Relationship Specialty Start Date End Date Kade Fry MD [address] [place] [address] PCP - General Family Medicine 08/28/19 Fitting Room Supervisor Relationship Specialty Start Date End Date Kade Fry MD [address] [place] [address] PCP - General Family Medicine 08/28/19 Fitting Room Supervisor Relationship Specialty Start Date End Date Kade Fry MD [address] [place] [address] PCP - General Family Medicine 08/28/19 Fitting Room Supervisor Relationship Specialty Start Date End Date Kade Fry MD [address] [place] [address] PCP - General Family Medicine 08/28/19 Fitting Room Supervisor Relationship Specialty Start Date End Date Kade Fry MD [address] [place] [address] PCP - General Family Medicine 08/28/19 Fitting Room Supervisor Relationship Specialty Start Date End Date Kade Fry MD [address] [place] [address] PCP - General Family Medicine 08/28/19 Fitting Room Supervisor Relationship Specialty Start Date End Date Kade Fry MD [address] [place] [address] PCP - General Family Medicine 08/28/19 Fitting Room Supervisor Relationship Specialty Start Date End Date Kade Fry MD [address] [place] [address] PCP - General Family Medicine 08/28/19 Fitting Room Supervisor Relationship Specialty Start Date End Date Kade Fry MD [address] [place] [address] PCP - General Family Medicine 08/28/19 Fitting Room Supervisor Relationship Specialty Start Date End Date Kdae Fry MD [address] [place] [address] PCP - General Family Medicine 08/28/19 Fitting Room Supervisor Relationship Specialty Start Date End Date Kade Fry MD [address] [place] [address] PCP - General Family Medicine 08/28/19 Fitting Room Supervisor Relationship Specialty Start Date End Date Kade Fry MD [address] [place] [address] PCP - General Family Medicine 08/28/19 Fitting Room Supervisor Relationship Specialty Start Date End Date Kade Fry MD [address] [place] [address] PCP - General Family Medicine 08/28/19 Fitting Room Supervisor Relationship Specialty Start Date End Date Kade Fry MD [address] [place] [address] PCP - General Family Medicine 08/28/19 Fitting Room Supervisor Relationship Specialty Start Date End Date Kade Fry MD [address] [place] [address] PCP - General Family Medicine 08/28/19 Addie Birmingham, DAMARIS.DEVELOPER DESIGNER [address] [place] [address] Atg Architect Family Medicine 07/29/24 Ena Aguiar PA-C [address] [place] [address] Atg Architect Family Medicine 07/29/24 Fitting Room Supervisor Relationship Specialty Start Date End Date Kade Fry MD [address] [place] [address] PCP - General Family Medicine 08/28/19 Addie Birmingham, COLLEGE PROFESSOR.DEVELOPER DESIGNER [address] [place] [address] Atg Architect Family Medicine 07/29/24 Ena Aguiar PA-C [address] [place] [address] Atg Architect Family Medicine 07/29/24 Fitting Room Supervisor Relationship Specialty Start Date End Date Kade Fry MD [address] [facility] [place] [address] PCP - General Family Medicine 08/28/19 Addie Birmingham, DAMARIS.DEVELOPER DESIGNER [address] [place] [address] Atg Architect Family Medicine 07/29/24 Ena Aguiar PA-C [address] [facility] [place] [address] Atg Architect Family Medicine 07/29/24 Fitting Room Supervisor Relationship Specialty Start Date End Date Kade Fry MD [address] [facility] [place] [address] PCP - General Family Medicine 08/28/19 Addie Birmingham, COLLEGE PROFESSOR.DEVELOPER DESIGNER [address] [place] [address] Atg Architect Family Medicine 07/29/24 Ena Aguiar PA-C [address] [facility] [place] [address] Atg Architect Family Medicine 07/29/24 Fitting Room Supervisor Relationship Specialty Start Date End Date Kade Fry MD [address] [facility] [place] [address] PCP - General Family Medicine 08/28/19 Addie Birmingham, COLLEGE PROFESSOR.DEVELOPER DESIGNER [address] [place] [address] Atg Architect Family Medicine 07/29/24 Ena Aguiar PA-C [address] [facility] [place] [address] Atg Architect Family Medicine 07/29/24 Fitting Room Supervisor Relationship Specialty Start Date End Date Kade Fry MD [address] [place] [address] PCP - General Family Medicine 08/28/19 Addie Birmingham, DAMARIS.DEVELOPER DESIGNER [address] [place] [address] Atg Architect Family Medicine 07/29/24 Ena Aguiar PA-C [address] [place] [address] Atg Architect Family Medicine 07/29/24 Fitting Room Supervisor Relationship Specialty Start Date End Date Kade Fry MD [address] [place] [address] PCP - General Family Medicine 08/28/19 Addie Birmingham, COLLEGE PROFESSOR.DEVELOPER DESIGNER [address] [place] [address] Atg Architect Family Medicine 07/29/24 Ena Aguiar PA-C [address] [place] [address] Atg Architect Family Medicine 07/29/24 Fitting Room Supervisor Relationship Specialty Start Date End Date Kade Fry MD [address] [place] [address] PCP - General Family Medicine 08/28/19 Addie Birmingham, COLLEGE PROFESSOR.DEVELOPER DESIGNER [address] [place] [address] Atg Architect Family Medicine 07/29/24 Ena Aguiar PA-C [address] [place] [address] [facility] 07/29/24 Fitting Room Supervisor Relationship Specialty Start Date End Date Kade Fry MD [address] [place] [address] PCP - General Family Medicine 08/28/19 Addie Birmingham APRN.DEVELOPER DESIGNER [address] [place] [address] [facility] Family Medicine 07/29/24 Ena Aguiar PA-C [address] [place] [address] [facility] Fitting Room Supervisor Relationship Specialty Start Date End Date Kade Fry MD [address] [place] [address] PCP - General Family Medicine 08/28/19 Addie Birmingham, DAMARIS.DEVELOPER DESIGNER [address] [place] [address] Atg Architect Family Medicine 07/29/24 Ena Aguiar PA-C [address] [place] [address] Atg Architect Family Medicine 07/29/24 Fitting Room Supervisor Relationship Specialty Start Date End Date Kade Fry MD [address] [place] [address] PCP - General Family Medicine 08/28/19 Addie Birmingham, COLLEGE PROFESSOR.DEVELOPER DESIGNER [address] [place], [place] [address] Atg Architect Family [facility] 07/29/24 Ena Aguiar PA-C [address] [place], [place] [address] Atg Architect Family [facility] 07/29/24 Team Status: Active Member Role Status Dates Dr. Kade Fry MD Primary Care Provider Active Team Status: Inactive Member Role Status Dates Dr. Kade Fry MD Primary Care Provider Active Start: October 03, 2024 End: October 03, 2024 Dr. Dina Ferrer MD Attending Provider Active Start: October 03, 2024 End: October 03, 2024 Dr. Dina Ferrer MD Referring Provider Active Start: October 03, 2024 End: October 03, 2024 Team Status: Inactive Member Role Status Dates Dr. Kade Fry MD Primary Care Provider Active Start: November 14, 2024 End: November 14, 2024 Dr. Manoj Gamino MD Attending Provider Active Start: November 14, 2024 End: November 14, 2024 Dr. Manoj Gamino MD Referring Provider Active Start: November 14, 2024 End: November 14, 2024 Team Status: Active Member Role Status Dates Dr. Kade Fry MD Primary Care Provider Active Start: November 14, 2024 Dr. Manoj Gamino MD Referring Provider Active Start: November 14, 2024 Dr. Manoj Gamino MD Other Provider Active St art: November 14, 2024 Dr. Chas Bello MD Attending Provider Active Start: November 14, 2024 Fitting Room Supervisor Relationship Specialty Start Date End Date Kade Fry MD [address] [place], [place] [id number] PCP - General Family Medicine 08/28/19 Addie Birmingham APRN.CNP [address] [place], [place] [id number] Atg Architect Family Medicine 07/29/24 Ena Aguiar PA-C [address] [place] [address] [facility] 07/29/24 Fitting Room Supervisor Relationship Specialty Start Date End Date Kade Fry MD [address] [place] [address] PCP - General Family Medicine 11/27/24 Addie Birmingham APRN.DEVELOPER DESIGNER [address] [place] [address] [facility] 07/29/24 Ena Aguiar PA-C [address] [place] [address] [facility] 07/29/24 Fitting Room Supervisor Relationship Specialty Start Date End Date Kade Fry MD [address] [place] [address] PCP - General Family Medicine 11/27/24 Addie Birmingham APRN.DEVELOPER DESIGNER [facility] [place] [address] [facility] 07/29/24 Ena Aguiar PA-C [address] [place] [address] [facility] 07/29/24 Team Status: Inactive Member Role Status Dates Dr. Kade Fry MD Primary Care Provider Active Start: November 27, 2024 End: November 27, 2024 Dr. Kade Fry MD Referring Provider Active Start: November 27, 2024 End: November 27, 2024 Dr. Darrin Lozoya DO Attending Provider Active Start: November 27, 2024 End: November 27, 2024 Team Status: Inactive Member Role Status Dates Dr. Kade Fry MD Primary Care Provider Active Start: November 27, 2024 End: November 27, 2024 Dr. Darrin Lozoya DO Attending Provider Active Start: November 27, 2024 End: November 27, 2024 Dr. Darrin Lozoya DO Referring Provider Active Start: November 27, 2024 End: November 27, 2024 Fitting Room Supervisor Relationship Specialty Start Date End Date Kade Fry MD [address] [place] [address] PCP - General Family Medicine 11/27/24 Addie Birmingham APRN.DEVELOPER DESIGNER [address] [place] [address] [facility] 07/29/24 Ena Aguiar PA-C [address] [place] [address] [facility] 07/29/24 Fitting Room Supervisor Relationship Specialty Start Date End Date Kade Fry MD [address] [place] [address] PCP - General Family Medicine 11/27/24 Addie Birmingham APRN.DEVELOPER DESIGNER [address] [place] [address] [facility] Medicine 07/29/24 Ena Aguiar PA-C [address] [place] [address] [facility] Medicine 07/29/24 Fitting Room Supervisor Relationship Specialty Start Date End Date Kade Fry MD [address] [place] [address] PCP - General Family Medicine 11/27/24 Addie Birmingham APRN.DEVELOPER DESIGNER [address] [place] [address] [id number] [facility] 07/29/24 Ena Aguiar PA-C [address] [place] [address] [id number] [facility] 07/29/24 Team Status: Inactive Member Role Status Dates Dr. Kade Fry MD Primary Care Provider Active Start: December 18, 2024 End: December 18, 2024 Dr. Darrin Lozoya DO Attending Provider Active Start: December 18, 2024 End: December 18, 2024 Dr. Darrin Lozoya DO Referring Provider Active Start: December 18, 2024 End: December 18, 2024 Team Status: Inactive Member Role Status Dates Dr. Kade Fry MD Primary Care Provider Active Start: December 26, 2024 End: December 26, 2024 Dr. Dina Ferrer MD Attending Provider Active Start: December 26, 2024 End: December 26, 2024 Dr. Dina Ferrer MD Referring Provider Active Start: December 26, 2024 End: December 26, 2024 Fitting Room Supervisor Relationship Specialty Start Date End Date Kade Fry MD [address] [place] [address] PCP - General Family Medicine 11/27/24 Ena Aguiar PA-C [address] [place] [id number] [facility] 07/29/24 Team Status: Inactive Member Role Status Dates Dr. Kade Fry MD Primary Care Provider Active Start: February 12, 2025 End: February 12, 2025 Dr. Kade Fry MD Referring Provider Active Start: February 12, 2025 End: February 12, 2025 Dr. Darrin Lozoya DO Attending Provider Active Start: February 12, 2025 End: February 12, 2025 Team Status: Active Member Role Status Dates Dr. Kade Fry MD Primary Care Provider Active Start: February 12, 2025 Dr. Kade Fry MD Referring Provider Active Start: February 12, 2025 Dr. Darrin Lozoya DO Attending Provider Active Start: February 12, 2025 Dr. Darrin Lozoya DO Other Provider Active St art: February 12, 2025 Fitting Room Supervisor Relationship Specialty Start Date End Date Kade Fry MD [address] [place] [address] PCP - General Family Medicine 11/27/24 Addie Birmingham APRN.[facility] [address] [place] [address] [phone] Atg Architect [facility] 01/22/25 Ena Aguiar PA-C [address] [place] [phone] Atg Architect [facility] 01/22/25 Team Status: Active Member Role/Relationship Status Dates Dr. Kade Fry MD Primary Care Provider Active Team Status: Inactive Member Role/Relationship Status Dates Dr. Kade Fry MD Primary Care Provider Active Start: November 14, 2024 End: November 14, 2024 Dr. Manoj Gamino MD Attending Provider Active Start: November 14, 2024 End: November 14, 2024 Dr. Manoj Gamino MD Referring Provider Active Start: November 14, 2024 End: November 14, 2024 Team Status: Active Member Role/Relationship Status Dates Dr. Kade Fry MD Primary Care Provider Active Start: November 14, 2024 Dr. Manoj Gamino MD Referring Provider Active Start: November 14, 2024 Dr. Manoj Gamino MD Other Provider Active St art: November 14, 2024 Dr. Chas Bello MD Attending Provider Active Start: November 14, 2024 Team Status: Inactive Member Role/Relationship Status Dates Dr. Kade Fry MD Primary Care Provider Active Start: November 27, 2024 End: November 27, 2024 Dr. Kade Fry MD Referring Provider Active Start: November 27, 2024 End: November 27, 2024 Dr. Darrin Lozoya DO Attending Provider Active Start: November 27, 2024 End: November 27, 2024 Team Status: Inactive Member Role/Relationship Status Dates Dr. Kade Fry MD Primary Care Provider Active Start: November 27, 2024 End: November 27, 2024 Dr. Darrin Lozoya DO Attending Provider Active Start: November 27, 2024 End: November 27, 2024 Dr. Darrin Lozoya DO Referring Provider Active Start: November 27, 2024 End: November 27, 2024 Team Status: Inactive Member Role/Relationship Status Dates Dr. Kade Fry MD Primary Care Provider Active Start: December 18, 2024 End: December 18, 2024 Dr. Darrin Lozoya DO Attending Provider Active Start: December 18, 2024 End: December 18, 2024 Dr. Darrin Lozoya DO Referring Provider Active Start: December 18, 2024 End: December 18, 2024 Team Status: Inactive Member Role/Relationship Status Dates Dr. Kade Fry MD Primary Care Provider Active Start: December 26, 2024 End: December 26, 2024 Dr. Dina Ferrer MD Attending Provider Active Start: December 26, 2024 End: December 26, 2024 Dr. Dina Ferrer MD Referring Provider Active Start: December 26, 2024 End: December 26, 2024 Team Status: Inactive Member Role/Relationship Status Dates Dr. Kade Fry MD Primary Care Provider Active Start: February 12, 2025 End: February 12, 2025 Dr. Kade Fry MD Referring Provider Active Start: February 12, 2025 End: February 12, 2025 Dr. Darrin Lozoya DO Attending Provider Active Start: February 12, 2025 End: February 12, 2025 Team Status: Active Member Role/Relationship Status Dates Dr. Kade Fry MD Primary Care Provider Active Start: February 12, 2025 Dr. Kade Fry MD Referring Provider Active Start: February 12, 2025 Dr. Darrin Lozoya DO Attending Provider Active Start: February 12, 2025 Dr. Darrin Lozoya DO Other Provider Active St art: February 12, 2025 Team Status: Inactive Member Role/Relationship Status Dates Dr. Kade Fry MD Primary Care Provider Active Start: March 09, 2025 End: March 09, 2025 Dr. Kade Fry MD Referring Provider Active Start: March 09, 2025 End: March 09, 2025 ANY Paulino Attending Provider Active S tart: March 09, 2025 End: March 09, 2025 Team Status: Inactive Member Role/Relationship Status Dates Dr. Kade Fry MD Primary Care Provider Active Start: December 18, 2024 End: December 18, 2024 Dr. Darrin Lozoya DO Attending Provider Active Start: December 18, 2024 End: December 18, 2024 Dr. Darrin Lozoya DO Referring Provider Active Start: December 18, 2024 End: December 18, 2024 Team Status: Inactive Member Role/Relationship Status Dates Dr. Kade Fry MD Primary Care Provider Active Start: December 26, 2024 End: December 26, 2024 Dr. Dina Ferrer MD Attending Provider Active Start: December 26, 2024 End: December 26, 2024 Dr. Dina Ferrer MD Referring Provider Active Start: December 26, 2024 End: December 26, 2024 Team Status: Inactive Member Role/Relationship Status Dates Dr. Kade Fry MD Primary Care Provider Active Start: February 12, 2025 End: February 12, 2025 Dr. Kade Fyr MD Referring Provider Active Start: February 12, 2025 End: February 12, 2025 Dr. Darrin Lozoya DO Attending Provider Active Start: February 12, 2025 End: February 12, 2025 Team Status: Active Member Role/Relationship Status Dates Dr. Kade Fry MD Primary Care Provider Active Start: February 12, 2025 Dr. Kade Fry MD Referring Provider Active Start: February 12, 2025 Dr. Darrin Lozoya DO Attending Provider Active Start: February 12, 2025 Dr. Darrin Lozoya DO Other Provider Active St art: February 12, 2025 Team Status: Inactive Member Role/Relationship Status Dates Dr. Kade Fry MD Primary Care Provider Active Start: March 09, 2025 End: March 09, 2025 Dr. Kade Fry MD Referring Provider Active Start: March 09, 2025 End: March 09, 2025 Zulma Christianson TRAFFIC LIEUTENANT-C Attending Provider Active S tart: March 09, 2025 End: March 09, 2025 Team Status: Inactive Member Role/Relationship Status Dates Dr. Kade Fry MD Primary Care Provider Active Start: March 27, 2025 End: March 27, 2025 Dr. Dina Ferrer MD Attending Provider Active Start: March 27, 2025 End: March 27, 2025 Dr. Dina Ferrer MD Referring Provider Active Start: March 27, 2025 End: March 27, 2025 Team Status: Active Member Role/Relationship Status Dates Dr. Kade Fry MD Primary Care Provider Active Start: April 02, 2025 Zulma Christianson TRAFFIC LIEUTENANT-C Attending Provider Active S tart: April 02, 2025 Zulmaher Christianson , TRAFFIC LIEUTENANT-C Referring Provider Active S tart: April 02, 2025 Team Status: Inactive Member Role/Relationship Status Dates Dr. Kade Fry MD Primary Care Provider Active Start: April 02, 2025 End: April 02, 2025 Zulma Christianson TRAFFIC LIEUTENANT-C Attending Provider Active S tart: April 02, 2025 End: April 02, 2025 Zulma Christianson , TRAFFIC LIEUTENANT-C Referring Provider Active S tart: April 02, 2025 End: April 02, 2025 Team Status: Inactive Member Role/Relationship Status Dates Dr. Kade Fry MD Primary Care Provider Active Start: April 06, 2025 End: April 06, 2025 Dr. Kade Fry MD Referring Provider Active Start: April 06, 2025 End: April 06, 2025 Zulma Christianson TRAFFIC LIEUTENANT-C Attending Provider Active S tart: April 06, 2025 End: April 06, 2025 Team Status: Inactive Member Role/Relationship Status Dates Dr. Kade Fry MD Primary Care Provider Active Start: February 12, 2025 End: February 12, 2025 Dr. Kade Fry MD Referring Provider Active Start: February 12, 2025 End: February 12, 2025 Dr. Darrin Lozoya DO Attending Provider Active Start: February 12, 2025 End: February 12, 2025 Team Status: Active Member Role/Relationship Status Dates Dr. Kade Fry MD Primary Care Provider Active Start: February 12, 2025 Dr. Kade Fry MD Referring Provider Active Start: February 12, 2025 Dr. Darrin Lozoya DO Attending Provider Active Start: February 12, 2025 Dr. Darrin Lozoya DO Other Provider Active St art: February 12, 2025 Team Status: Inactive Member Role/Relationship Status Dates Dr. Kade Fry MD Primary Care Provider Active Start: March 09, 2025 End: March 09, 2025 Dr. Kade Fry MD Referring Provider Active Start: March 09, 2025 End: March 09, 2025 ANY Paulino Attending Provider Active S tart: March 09, 2025 End: March 09, 2025 Team Status: Inactive Member Role/Relationship Status Dates Dr. Kade Fry MD Primary Care Provider Active Start: March 27, 2025 End: March 27, 2025 Dr. Dina Ferrer MD Attending Provider Active Start: March 27, 2025 End: March 27, 2025 Dr. Dina Ferrer MD Referring Provider Active Start: March 27, 2025 End: March 27, 2025 Team Status: Inactive Member Role/Relationship Status Dates Dr. Kade Fry MD Primary Care Provider Active Start: April 02, 2025 End: April 02, 2025 ANY Paulino Attending Provider Active S tart: April 02, 2025 End: April 02, 2025 ANY Paulino Referring Provider Active S tart: April 02, 2025 End: April 02, 2025 Team Status: Inactive Member Role/Relationship Status Dates Dr. Kade Fry MD Primary Care Provider Active Start: April 06, 2025 End: April 06, 2025 Dr. Kade Fry MD Referring Provider Active Start: April 06, 2025 End: April 06, 2025 ANY Paulino Attending Provider Active S tart: April 06, 2025 End: April 06, 2025 Team Status: Inactive Member Role/Relationship Status Dates Dr. Kade Fry MD Primary Care Provider Active Start: May 03, 2025 End: May 03, 2025 Dr. Kade Fry MD Referring Provider Active Start: May 03, 2025 End: May 03, 2025 Dr. Tavon Beauchamp MD Attending Provider Active Start: May 03, 2025 End: May 03, 2025 Team Status: Active Member Role/Relationship Status Dates Dr. Kade Fry MD Primary Care Provider Active Start: May 03, 2025 Dr. Tavon Beauchamp MD Attending Provider Active Start: May 03, 2025 Dr. Tavon Beauchamp MD Referring Provider Active Start: May 03, 2025 Fitting Room Supervisor Relationship Specialty Start Date End Date Kade Fry MD [address] [place] [id number] PCP - General Family Medicine 11/27/24 Addie Birmingham APRN.[facility] [address] [place] [id number] Atg Architect Family Medicine 01/22/25 Ena Aguiar PA-C [address] [place] [id number] Atg Architect Family [facility] 01/22/25 Team Status: Active Member Role/Relationship Status Dates Dr. Kade Fry MD Primary care physician Active Team Status: Inactive Member Role/Relationship Status Dates Dr. Kade Fry MD Primary care physician Active Start: February 12, 2025 End: February 12, 2025 Dr. Kade Fry MD Referring Provider Active Start: February 12, 2025 End: February 12, 2025 Dr. Darrin Lozoya DO Attending physician Active Start: February 12, 2025 End: February 12, 2025 Team Status: Active Member Role/Relationship Status Dates Dr. Kade Fry MD Primary care physician Active Start: February 12, 2025 Dr. Kade Fry MD Referring Provider Active Start: February 12, 2025 Dr. Darrin Lozoya DO Attending physician Active Start: February 12, 2025 Dr. Darrin Lozoya DO Nurse Practitioner Active Start: February 12, 2025 Team Status: Inactive Member Role/Relationship Status Dates Dr. Kade Fry MD Primary care physician Active Start: March 09, 2025 End: March 09, 2025 Dr. Kade Fry MD Referring Provider Active Start: March 09, 2025 End: March 09, 2025 ANY Paulino Attending physician Active Start: March 09, 2025 End: March 09, 2025 Team Status: Inactive Member Role/Relationship Status Dates Dr. Kade Fry MD Primary care physician Active Start: March 27, 2025 End: March 27, 2025 Dr. Dina Ferrer MD Attending physician Active Start: March 27, 2025 End: March 27, 2025 Dr. Dina Ferrer MD Referring Provider Active Start: March 27, 2025 End: March 27, 2025 Team Status: Inactive Member Role/Relationship Status Dates Dr. Kade Fry MD Primary care physician Active Start: April 02, 2025 End: April 02, 2025 ANY Paulino Attending physician Active Start: April 02, 2025 End: April 02, 2025 ANY Paulino Referring Provider Active S tart: April 02, 2025 End: April 02, 2025 Team Status: Inactive Member Role/Relationship Status Dates Dr. Kade Fry MD Primary care physician Active Start: April 06, 2025 End: April 06, 2025 Dr. Kade Fry MD Referring Provider Active Start: April 06, 2025 End: April 06, 2025 ANY Paulino Attending physician Active Start: April 06, 2025 End: April 06, 2025 Team Status: Inactive Member Role/Relationship Status Dates Dr. Kade Fry MD Primary care physician Active Start: May 03, 2025 End: May 03, 2025 Dr. Kade Fry MD Referring Provider Active Start: May 03, 2025 End: May 03, 2025 Dr. Tavon Beauchamp MD Attending physician Active Start: May 03, 2025 End: May 03, 2025 Team Status: Inactive Member Role/Relationship Status Dates Dr. Kade Fry MD Primary care physician Active Start: May 03, 2025 End: May 03, 2025 Dr. Tavon Beauchamp MD Attending physician Active Start: May 03, 2025 End: May 03, 2025 Dr. Tavon Beauchamp MD Referring Provider Active Start: May 03, 2025 End: May 03, 2025 Team Status: Active Member Role/Relationship Status Dates Dr. Kade Fry MD Primary care physician Active Start: May 15, 2025 Dr. Juancarlos Molina MD Attending physician Active Start: May 15, 2025 Dr. El Gomez MD Referring Provider Active St art: May 15, 2025 Goals (unrecognized section and content) Goals may be documented in a n alternate sectionGoals may be documented in an alternate sectionGoals may be documented in an alternate sectionGoals may be documented in an alternate sectionGoals may be documented in an alternate sectionGoals may be documented in an alternate sectionGoals may be documented in an alternate sectionGoals may be documented in an alternate sectionGoals may be documented in an alternate sectionGoals may be documented in an alternate sectionGoals may be documented in an alternate sectionGoals may be documented in an alternate section INFORMATION SOURCE (unrecogn ized section and content) DATE CREATED AUTHOR 05/08/2025 [facility] DATE CREATED AUTHOR AUTHOR'S ORGANIZ ATION 05/17/2025 [facility] FOR RECORDS PERTAINING TO PATIENTS WHO ARE [...] BE BASED ON THE PRIMARY CLINICAL RECORDS. [employer] provides no warranty or guarantee of the accuracy or completeness of information in this document.
[2025-05-28] MEDS: Lactated Ringers 1,000 ML 15 ML IV (06:37)
--- NOTE | 2025-05-28 07:00 | PCM.PRE.AN2 ---
ASA Classification* ASA Classification ASA Classification: 3 Assessment & Plan Anesthesia* Anesthesia Assessment Anesthesia Assessment: Discussed sedation and/or anesthesia options, risks, benefits, and alternatives with patient/parents/legal guardian/POA. Questions invited. The patient/parents/legal guardian/POA seems to understand and agrees to proceed with anesthesia plan. Reviewed the physical assessment, medical history, allergy history and patient home medications list prior to surgery/procedure/anesthetic and documented any changes. Performed airway and anesthesia risk assessments. Anesthesia Type Anesthesia Type: General History Source History Obtained from:: Patient and Chart Anesthesia Focused Assessment* Temperature: 98.1 F Pulse Rate: 62 Blood Pressure: 176/74 Respiratory Rate: 16 Pulse Ox: 99 Oxygen Delivery Method: Room Air Airway Assessment Mouth opens: >3 cm Mallampati Score: II Teeth Condition: Caps/Crowns (Patient has couple crowns. They are tight.) and Missing (Patient has a missing tooth.) Neck Range of motion (ROM): Full ROM Labs Anesthesia Preop lab: CBC WBC, (4.4-11.0) 4.6 K/mm3 03/27/25, 12:44 RBC, (4.2-5.4) 3.97 M/mm3 L 03/27/25, 12:44 Hgb, (12.0-15.0) 13.9 g/dL 03/27/25, 12:44 Hct, (37-47) 41.4 % 03/27/25, 12:44 Plt Count, (150-450) 206 K/mm3 03/27/25, 12:44 CHEMISTRY Potassium, (3.3-5.1) 3.9 mmol/L 03/27/25, 12:44 Sodium, (133-145) 139 mmol/L 03/27/25, 12:44 BUN, (4-19) 19 mg/dL 03/27/25, 12:44 Creatinine, (0.70-1.20) 0.77 mg/dL 03/27/25, 12:44 Glucose, (70-99) 164 mg/dL H 03/27/25, 12:44 TSH, (0.300-4.200) 2.340 uIU/mL 11/27/24, 09:42 COAG Pre-Assessment Diagnosis/Proposed Procedure Planned Operative Procedure(s): LAP ROBOTIC INGUINAL HERNIA LEFT WITH MESH Anesthesia History Anesthesia History - pediatric licensed practical nurse: Anesthesia History - pediatric licensed practical nurse Hx Hospitalization No 05/14/25 13:02 Any Problems With Anesthesia Yes: SLOW TO AWAKEN 05/14/25 13:02 Cholinesterase deficiency No 05/14/25 13:02 You/Your Family Experience No 05/14/25 13:02 fever (hyperthermia) with Relationship Recent Exposure to Contagious No 05/28/25 06:24 Disease Does patient have nerve No 05/14/25 13:02 stimulator Patient instructed to have device shut off --Does patient have Pacemaker or ICD? When Was Last Pacemaker Check QUESTION #4 FULL TEXT: You/Your Family Experience fever (hyperthermia) with Anesthesia Last Oral Intake Last Oral intake: Last Oral Intake NPO since 18:30 05/28/25 06:24 Meds taken in AM with sips of Yes 05/28/25 06:24 water? Meds patient instructed to 0500 PANTOPRAZOLE 05/28/25 06:24 take am of surgery Any additional information?: Yes Meds taken in AM with sips of water?: Yes PONV PONV - pediatric licensed practical nurse: PONV - pediatric licensed practical nurse Female Yes 05/14/25 13:02 HX of Motion Sickness No 05/14/25 13:02 HX of N/V After Surgery No 05/14/25 13:02 Non-Smoker Yes 05/14/25 13:02 Duration of Surgery greater Yes 05/14/25 13:02 than 60 minutes Number of Risk Factors 3 05/14/25 13:02 PONV Score Moderate Risk 05/14/25 13:02 Height & Weight Height & Weight: Anesthesia: Height & Weight Height 5 ft 5.5 in 05/28/25 06:24 Weight: 86 kg 05/28/25 06:24 Body Mass Index (BMI) 31.0 05/28/25 06:24 Respiratory Assessment Respiratory Assessment - pediatric licensed practical nurse: Respiratory Tract Infection Hx - pediatric licensed practical nurse Hx Respiratory Tract Infection No 05/14/25 13:02 STOP Sleep Apnea STOP Sleep Apnea - pediatric licensed practical nurse: STOP Sleep Apnea - pediatric licensed practical nurse Hx Hypertension Yes: ON MEDS BP CONTROLLED 05/14/25 13:02 Hx Sleep Apnea No 05/14/25 13:02 CPAP BIPAP Do you snore loudly (louder Yes 05/14/25 13:02 than talking or can be heard Do you often feel tired/ Yes 05/14/25 13:02 fatigued/ sleepy during daytime? Has anyone observed you stop No 05/14/25 13:02 breathing during sleep? STOP Results Positive 05/14/25 13:02 QUESTION #5 FULL TEXT : Do you snore loudly (louder than talking or can be heard through closed doors)? 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 - pediatric licensed practical nurse: Tobacco Use History - pediatric licensed practical nurse Tobacco Use Smoking Status Never smoker 05/14/25 13:02 Hx Tobacco Use No 05/14/25 13:02 Years Smoking Packs Smoked per Day Smoking Cessation Date was within the last 15 years Hx Smoking Cessation Date Hx Smoking Cessation Counseling Hematologic Medial History Hematologic Hx - pediatric licensed practical nurse: Hematologic Medical Hx - legal executive assistant Hx of Blood Transfusion No 05/14/25 13:02 Hx of Transfusion in last 3 No 05/14/25 13:02 Months Date of Last Transfusion (if within last 3 months) Ever experience any problems No 05/14/25 13:02 with transfusion(s)? Specify any problems Hx of Preganancy in last 3 No 05/14/25 13:02 Months Nurse Filling Out Transfusion DSCHRIBER 05/14/25 13:02 & Questions: Date: 05/14/25 05/14/25 13:02 Time: 13:06 05/14/25 13:02 Patient unable to answer at this time (ie. confused, unrespo /Reproduction History /Reproductive History - pediatric licensed practical nurse: /Reproductive Hx- pediatric licensed practical nurse Hx Now Gestational Age (in weeks): EDC: Hx Hx Para Hx Section SAB No 05/14/25 13:02 Active Medications Active Medications: Current Medications Generic Name Dose Route Start Last Admin Trade Name Freq PRN Reason Stop Dose Admin Cefazolin Sodium 2 gm/ Sodium 110 mls @ 200 mls/hr 05/28/25 07:30 Chloride IV 05/28/25 08:02 INTRAOP ONE Lactated Ringer's 1,000 mls @ 15 mls/hr 05/28/25 06:15 05/28/25 06:37 IV 15 mls/hr .Q48H KIRIT Administration PFSH Medical History Loss of hearing Post-menopausal Bladder disease Easy bruising Back pain Injury of back History of diverticulitis History of stress test Wears glasses Rheumatoid arthritis TIA (transient ischemic attack) History of hiatal hernia Difficulty swallowing Non-smoker Shortness of breath on exertion Leg cramps History of edema GERD (gastroesophageal reflux disease) Osteopenia Hypertension Migraines Arthritis Home Medications ?Medication ?Instructions ?Recorded ?Last Taken ?Type Ibuprofen [Motrin] 800 mg PO TID PRN PRN Pain 05/26/16 05/27/25 History aspirin 81 mg tablet,delayed 81 mg PO MOWEFR 05/26/16 05/27/25 History release calcium carbonate (Oyster Shell 500 mg PO BID 05/26/16 05/27/25 History Calcium 500) cholecalciferol (vitamin D3) 25 2,000 unit PO BID 05/26/16 05/27/25 History mcg (1,000 unit) tablet (Vitamin D3) fexofenadine-pseudoephedrine ER 1 ea PO DAILY 05/26/16 05/27/25 History 180 mg-240 mg tablet,ext.release 24 hr (Carmelita-D 24 Hour) omega-3 fatty acids-fish oil 340 1 ea PO DAILY 05/26/16 05/27/25 History mg-1,000 mg capsule (Fish Oil) ramipril 5 mg capsule 5 mg PO DAILY 05/26/16 05/27/25 History vitamin B complex 1 ea PO DAILY 05/26/16 05/27/25 History ascorbic acid (vitamin C) 1,000 mg 1 g PO QDAY 11/21/24 05/27/25 History capsule methotrexate sodium 2.5 mg tablet 20 mg PO SA 11/21/24 05/27/25 History folic acid 1 mg tablet 2 mg PO QDAY 11/27/24 05/27/25 History dicyclomine 10 mg capsule 10 mg PO BID PRN abdominal pain 03/09/25 05/27/25 Rx #14 caps budesonide 32 mcg/actuation nasal 2 spray intranasal QHS 05/14/25 05/27/25 History spray pantoprazole 40 mg tablet,delayed 40 mg PO MOTUWETH GERD 05/14/25 05/28/25 05:00 History release zinc gluconate 50 mg tablet 50 mg PO DAILY 05/14/25 05/27/25 History Allergy/AdvReac Type Severity Reaction Status Date / Time lansoprazole (From Prevacid) Allergy Hives Verified 05/14/25 12:54 latex Allergy Unknown Verified 05/14/25 12:54 alendronate sodium (From AdvReac Unknown heartburn Verified 05/14/25 12:54 Fosamax) adhesive AdvReac Unknown Verified 05/14/25 12:54 diphenhydramine (From AdvReac FEEL Verified 05/14/25 12:54 Benadryl) WEIRD Family History Mother Arthritis Brother Arthritis Diabetes Heart disease Bleeding disorder Brother Colon cancer Bleeding disorder Surgical History History of esophagogastroduodenoscopy (EGD) History of colonoscopy History of tubal ligation H/O: hysterectomy History of appendectomy History of tonsillectomy Social History Smoking Status: Never smoker alcohol intake: never substance use type: does not use what type of physical activity do you participate in: none Review of Systems (Anesthesia) ROS Narrative System reviewed and no additional complaints, except as documented.
--- NOTE | 2025-05-28 07:15 | HP.PCM_ITS ---
History and Physical Date of Admission: 05/28/25 Date of Service: 05/03/25 MR#: [id number] Acct: [id number] Name: IRVIN GODFREY Rep #: [id number] : 1955 Provider: Dr. Tavon Beauchamp MD Age/Sex: 70/F Location: [facility] Status: Signed Intake Vital Signs 02/12/2509:26 05/03/2513:36 Height 5 ft 1 in 5 ft 1 in Weight: 192 lb BMI 36.2 BP 172/84 H Blood Pressure Location Lt brachial Position Sitting Respiration 17 Pulse 67 Pulse Source Monitor Pulse Oximetry (%) 97 Oxygen Delivery Method room air Intake Visit Reasons: HERNIA/ GALLSTONE Chief Complaint: hernia and gallstone Is patient in pain?: No Allergies lansoprazole (From Prevacid) Allergy (Verified 05/03/25 13:37) Hives latex Allergy (Verified 05/03/25 13:37) Unknown alendronate sodium (From Fosamax) Adverse Reaction (Unknown, Verified 05/03/25 13:37) heartburn adhesive Adverse Reaction (Verified 05/03/25 13:37) Unknown diphenhydramine (From Benadryl) Adverse Reaction (Verified 05/03/25 13:37) FEEL WEIRD Medications ?Medication ?Instructions ?Recorded ?Confirmed ?Type Ibuprofen [Motrin] 800 mg PO TID PRN PRN Pain 05/26/1604/23 History aspirin 81 mg tablet,delayed 81 mg PO MOWEFR 05/26/16 05/03/25 Histor y release calcium carbonate (Oyster Shell 500 mg PO BID 05/26/16 05/03/25 History Calcium 500) cholecalciferol (vitamin D3) 25 2,000 unit PO BID 05/26/16 05/03/25 Hist ory mcg (1,000 unit) tablet (Vitamin D3) fexofenadine-pseudoephedrine ER 1 ea PO DAILY 05/26/16 05/03/25 History 180 mg-240 mg tablet,ext.release 24 hr (Carmelita-D 24 Hour) omega-3 fatty acids-fish oil 340 1 ea PO DAILY 05/26/16 05/03/25 History mg-1,000 mg capsule (Fish Oil) ramipril 5 mg capsule 5 mg PO DAILY 05/26/16 05/03/25 History vitamin B complex 1 ea PO DAILY 05/26/16 05/03/25 History ascorbic acid (vitamin C) 1,000 mg 1 g PO QDAY 11/21/24 05/03/25 History capsule methotrexate sodium 2.5 mg tablet 20 mg PO SA 11/21/24 05/03/25 History folic acid 1 mg tablet 2 mg PO QDAY 11/27/24 05/03/25 History dicyclomine 10 mg capsule 10 mg PO BID PRN abdominal pain 03/09/25 05/03/25 Rx #14 caps famotidine 40 mg tablet 40 mg PO QDAY #30 tabs 04/13/25 05/03/25 Rx Have you fallen in the past year?: No PFSH Medical History Wears glasses Rheumatoid arthritis TIA (transient ischemic attack) History of hiatal hernia Difficulty swallowing Non-smoker Shortness of breath on exertion Leg cramps History of edema GERD (gastroesophageal reflux disease) Osteopenia Osteoarthritis Hypertension Problems with hearing Migraines Cataracts, bilateral History of back problems Arthritis Seasonal allergies Surgical History History of esophagogastroduodenoscopy (EGD) History of colonoscopy History of tubal ligation H/O: hysterectomy History of appendectomy History of tonsillectomy Family History (Updated 05/03/25 @ 13:36 by Avani Cramer) Mother Arthritis Brother Arthritis Diabetes Heart disease Bleeding disorder Brother Colon cancer Bleeding disorder Social History Smoking Status: Never smoker alcohol intake: never substance use type: does not use what type of physical activity do you participate in: none HPI HPI HPI: Patient is a 70-year old female who presents for evaluation of a recently diagnosed left-sided spigelian hernia as well as gallstones. She is referred from PCP, Dr. Frances and from gastroenterology. She reports that she has had left lower quadrant pain for years. She initially ascribed it to a ovarian source, although she confesses that this did not make complete sense as she believes she underwent oophorectomy along with her hysterectomy completed remotely. She shares that this pain seems to come and go. She also adds that she has had no pain since she started going for further evaluation. She reports when the pain was present it was a sharp pain that would double you over. She wishes to know how this might be connected back to the fact that despite a history of uneventful colonoscopy she has presented twice now for colonoscopy with 2 separate gastroenterologists and neither procedure was able to be completed due to the narrowness of her colon. Ms. Godfrey denies any history of an inciting event such as lifting or straining. She denies any history of skin infections. Later in the visit she remarks that there was drooping of her abdominal wall following her appendix surgery. She is uncertain when her laparoscopic appendectomy was undertaken but estimates it to have been at least 12 years ago. Outside of the above hernia considerations, Mr. Godfrey reports that she does experience right upper quadrant pain at times. Once again she notes this pain comes and goes. She states that sometimes when she bends over she gets a muscle spasm in this area. She has not linked the symptoms in any particular way to mealtime. She does confirm a history of nausea but has always previously connected this to her history of heartburn. Patient has past surgical history inclusive of hysterectomy, tubal ligation, appendectomy, and bladder sling procedure. ROS General General: Yes fatigue; No weight change, appetite, colon cancer, breast cancer or weakness HEENT HEENT: Yes difficulty swallowing; No eye injury, eye surgery, swollen glands or hoarseness Additional Details: C/o dry food items can be difficult ie bread, crackers Endo Endocrine: No thyroid disease, diabetes mellitus, thyroid cancer, Hair loss, heat intolerance or cold intolerance Skin Skin: No rash or changing moles Musc Musculoskeletal: Yes back problems, arthritis and rheumatoid arthritis; No gout or joint pain Cardio Cardiovascular: Yes high blood pressure; No murmur, pacemaker, heart disease, atrial fibrillation, heart attack, heart stent, palpitations, shortness of breath with exertion or chest pain Psych Psychiatric: No depression, anxiety or hearing voices Resp Respiratory: Yes shortness of breath, No sleep apnea, Yes cough, No COPD, No asthma, No emphysema and No wheezing Gastro Gastrointestinal: Yes abdominal pain, Yes nausea or vomiting, No diarrhea, No constipation, No blood in stool, Yes acid reflux, Yes hemorrhoids, No ulcers, No gallbladder problem and No black,tarry stools Doe Hematologic: No blood thinners, No blood disorders, No bleeding, No anemia and No blood clots Neuro Neurologic: No system reviewed and no additional complaints, except as docum ented, No as per HPI, No abnormal gait, No abnormal hearing, No abnormal movements, No abnormal speech, No behavioral changes, No burning sensations, No confusion, No convulsions, No disequilibrium, No dizziness, No localized weakness, No frequent falls, No headache(s), No lack of coordination, No loss of vision, No memory loss, Yes numbness, No other visual disturbances, No radicular pain, No restless legs, No sensory deficit, No syncope, Yes tingling, No tremor(s), No weakness and No other ROS Narrative h/o TIA in her 20's Exam Const General: cooperative Nutritional Appearance: obese Orientation: alert, awake and oriented x3 Resp Effort & Inspection: normal respiratory effort GI Other: Obese, nondistended, soft, mild tenderness with palpation in the left lower quadrant. With deeper palpation I do believe I palpate at least part of the fascial defect and patient confirms tenderness is greatest in intensity in this location. I do not palpate any herniated bowel contents. In the right upper quadrant there is a negative Love sign. Assessment and Plan Assessment and Plan (1) Spigelian hernia: Status: Acute Comment: Patient is a 70-year-old female who presents for a number of complaints today including newly diagnosed left spigelian hernia, newly diagnosed cholelithiasis, and history of inability to complete colonoscopy due to a reportedly narrowed colon. After careful review of patient's history and imaging with CT abdomen pelvis on 04/02/2025 I believe patient is primarily symptomatic from her spigelian hernia. Further, I defer with radiology and find that it is not her small bowel that is contained within her hernia but actually her sigmoid colon. With this finding it is understandable why gastroenterology would have such a difficult time navigating the sigmoid colon to complete a colonoscopy given the hairpin turn stat would otherwise not be present if the colon were not prone to trapping in the hernia defect. I reviewed patient's CT imaging with her and shared this hypothesis. I was careful to point out the relevant anatomy and the size of the hernia defect which appears to measure 3 cm x 4 cm in the left lower quadrant. According to patient's history she started to notice drooping in the postoperative period following her appendectomy. Therefore this raises the possibility that her hernia is less a spontaneous event and perhaps more appropriately considered an incisional hernia. However, given its location at the linea semilunaris we will continue to regarded as a spigelian hernia. Either way, I believe operative repair is indicated based on patient's symptoms and, further, believe repair may allow gastroenterology to finally complete a colonoscopy. A procedure for robot-assisted spigelian hernia repair with mesh placement was then discussed in detail. Patient is receptive and wishes to be underway once the schedule allows. She was informed of expected activity restrictions to minimize her risk for recurrence postoperatively. Plan: ? Left Robot-assisted spigelian hernia repair with mesh placement. Procedure to be completed with outpatient disposition planned ? MRSA swab in the naris to exclude MRSA colonization and need for preoperative eradication protocol. (2) Cholelithiasis: Status: Acute Comment: Patient with cholelithiasis seen on CT imaging. According to patient's history and exam this appears to be more of an incidental finding. Again, I differ with radiology and measure patient's gallstone diameter at at least 2.7 cm (rather than 1.7 cm as reported). I shared there is a relative indication to complete cholecystectomy for gallstones 3 cm or greater as there is an association with gallbladder cancer. I believe patient benefits from this gallstone being located primarily in the fundal portion of the gallbladder rather than the infundibular or neck portion of the gallbladder. I do not recommend undertaking cholecystectomy concurrent with spigelian hernia repair due to the risk for cross-contamination and perioperative infectious concerns. That being said patient may require cholecystectomy in the future. Patient was advised of symptoms to be watchful towards. Plan: ? No surgical intervention currently planned or indicated for patient's 2.7 cm gallstone. Orders: Orders MRSA/SAID SCREEN (PRE SURG) Today K43.9 - Ventral hernia without obstruction or gangrene Pt presents for L spigelian hernia repair with mesh. She remains in stable state of health. Goals of procedure reviewed w pt and her . Post procedure activity restrictions also reviewed. Ab exam benign and site marked. Consents confirmed. Proceed to OR as planned.
[2025-05-28] MEDS: Midazolam 2 MG/2 ML Syringe IV (07:40)
[2025-05-28] MEDS: Cefazolin 1 GM/5 ML Vial 2 GM IV (07:45)
[2025-05-28] MEDS: Lidocaine 1% (5 ml sdv) 5 ML Vial IV (07:45)
[2025-05-28] MEDS: Bupiv/Epi 0.25% 30 ML Vial (08:04)
[2025-05-28] MEDS: fentaNYL 100 MCG/2 ML Ampul 200 MCG IV (08:07)
--- NOTE | 2025-05-28 10:57 | PCM.OPRPT ---
Operative Report (Standard) Operative Information Date of Procedure: 05/28/25 Pre-Operative Diagnosis: Left spigelian hernia containing colon Post-Operative Diagnosis: Left spigelian hernia containing sigmoid colon Surgery/Procedure Performed: Robot-assisted transabdominal preperitoneal repair of spigelian hernia with mesh placement applied behavior science specialist: Yes Rug Inspector Helper: Avani Gilbert Tasks completed by assistant professor of archaeology: Opening & closing and Other (Material and instrument exchange at the robot) Type of Anesthesia: General/Supplemental RN Documented Start/Stop Times: Operation Date: 05/28/25 07:30 Case Time Into Pre-Op 05/28/25 06:11 Out of Pre-Op 05/28/25 07:34 Anesthesia Start 05/28/25 07:40 Into Room 05/28/25 07:40 Procedure Start 05/28/25 08:04 Procedure End 05/28/25 11:06 Anesthesia End 05/28/25 11:11 Out of Room 05/28/25 11:11 Into Recovery 05/28/25 11:14 Out of Recovery 05/28/25 13:08 Into Phase II Recovery 05/28/25 13:12 Out of Phase II 05/28/25 16:05 Procedure Start Time: 08:04 Procedure Stop Time: 11:06 Select all DRAINS/GRAFTS/IMPLANTS that apply: None and Prosthetic device (ProGrip 16 x 12 cm mesh (cut to 12 x 12 cm)) Prosthetic device details: LOT [id number], reference [id number] Estimated Blood Loss: 25 Specimen collected: No Description of surgery: After appropriate identification in the preoperative holding area the patient was brought to the operating room where she was positioned supine on the operating table. Preoperative antibiotics were completed and the patient was administered a general anesthetic. Patient's abdomen was then prepped and draped in usual sterile fashion. Formal timeout followed to confirm patient and procedure. Procedure was begun with an optical entry facilitated by Veress insufflation at Catalan's point. Once pneumoperitoneum reached a set point pressure of 15 mmHg a 8 mm robotic trocar was placed with a careful Optiview technique. Follow-up laparoscopic investigation revealed no inadvertent injury to the viscera below. A second port was placed in the right upper quadrant followed by a third port through the epigastrium?both under laparoscopic visualization. The robot was docked in standard fashion. In this positioning I could visualize the patient's known left spigelian defect. I proceeded to take advantage of the laparoscopic visualization to produce a local block lateral to the area of the hernia defect prior to dissection infiltrating quarter percent bupivacaine. Robotically, a peritoneal flap was created on the left, entering into the lateral visceral compartment approximately 4cm proximal to the visualized abdominal wall defect. This flap was extended inferiorly until I came down over the hernia sac. Perforating vessels were addressed with monopolar and bipolar energy from the robot depending on the vessel size to minimize the risk for bleeding in the pocket. Gentle traction was applied to the hernia sac as I used the robotic scissors to sweep upward. However, it felt as though I had limited traction on the hernia contents which prolapsed back through their defect. My manipulation of the hernia contents was further limited both by the inclusion of colon in the defect as well as the abutment to the inferior epigastric vein medially. Noting these limitations I elected to open the hernia sac circumferentially and reduced the hernia contents to the preperitoneal pocket and then to the peritoneum via a peritoneal rent. A significant amount of subcutaneous tissue and sigmoid colon was reduced with the hernia sac. The colon was inspected and I found a single serosal injury laterally which I designated for repair following remainder of the hernia repair. For the present time I extended my dissection approximately 5cm inferior to the hernia defect. I used a ruler to confirm adequate dissection within the preperitoneal pocket and then obtained a 1 STRATAFIX suture to close the abdominal wall defect transversely and running the suture back upon itself. I then placed a ProGrip mesh (originally 12 x 16 cm) cut to 12 x 12 cm into the pocket and pressed this in the place overlying the hernia defect. Two point fixation, medially and laterally, was used with interrupted 3-0 Vicryl to prevent translation of the mesh. The peritoneal flap was closed superiorly with a running 3-0 V-Loc suture. I then used a second 3-0 V-Loc suture to close the peritoneal rent laterally where the colon remained loose adherent to the peritoneal surface. A final 3-0 V-Loc suture was used to close the peritoneal rent from the hernia defect. I then set about a Lembert type repair of the serosal injury on the sigmoid colon using a remnant of our 3-0 Vicryl suture to approximate the serosa and the neighboring epiploic in a [id number] fashion over the serosal defect. This brought about closure and hemostasis. This marked the conclusion of the case and all needles, and inserted ruler, and 2 Ray-Patricia gauzes were extracted. All counts were correct. Then pneumoperitoneum was released and the port sites were closed with 4-0 Monocryl suture. Steri-Strips and OpSite Telfa dressings were placed over each port site. Patient was then awoken from anesthetic and transferred to PACU for ongoing recovery. Surgical Findings: ? No ability to reduce hernia sac contents from preperitoneal space for hernia sac. Sac. Hernia contents were separately required peritoneal defect with 3 separate 3-0 V-Loc sutures ? Defect medially abutting the inferior epigastric vein ? 12 x 16 ProGrip mesh cut to 12 x 12 cm tacked medially and laterally. ? Serosal tear of the sigmoid colon requiring Lembert type sutures with 3-0 Vicryl following peritoneal flap closure Complications Complications: No Admit VTE Documentation VTE Mechan Device Prophylaxis: SCD's
[2025-05-28] MEDS: Lactated Ringers 3,000 ML 3000 ML IV (11:01)
--- NOTE | 2025-05-28 11:02 | DCINST_ITS ---
Discharge Instructions Diet Discharge Diet: No restrictions Activity Discharge Activity: May Not Drive (While taking narcotic pain medication) and May Shower May shower in (days): 2 Ice area for (Minutes): 20 Lifting Restrictions: No lifting greater than 10 pounds for the next 5 weeks Dressing / Incision Call your doctor if your incision/area has: Continuous Slow Oozing, Increased Pain/ Swelling, Increased Redness, Foul Smelling Discharge and Swelling at the incision site Call your doctor if you observe: Fever of 101 or Higher, Inability to urinate and Inability to have a bowel movement Change Dressing in: 2 days (Please leave Steri-Strips intact until they fall off spontaneously or are taken off at your follow-up visit) Remove Dressing in: 2 days Cleanse incision/area with: Soap & Water and Keep Dressing Clean & Dry Follow Up Care Please Follow Up With: Tavon Beauchamp MD When: 1 week postop Test Results: Test results from this visit will be discussed in further detail at your follow- up appointment, if applicable. Discharge Plan Admission Primary Reason for Your Visit: Left ventral hernia repair Attending Provider: Tavon Beauchamp Primary Care Provider: Kade Frances Instructions Print Language: Vietnamese Discharge Orders/Prescriptions Prescriptions: New oxycodone 5 mg tablet 5 mg PO Q6H PRN (Reason: pain) 5 Days Qty: 10 0RF Continued ascorbic acid (vitamin C) 1,000 mg capsule 1 g PO QDAY methotrexate sodium 2.5 mg tablet 20 mg PO SA folic acid 1 mg tablet 2 mg PO QDAY dicyclomine 10 mg capsule 10 mg PO BID PRN (Reason: abdominal pain) Qty: 14 0RF aspirin 81 MG tablet 81 mg PO MOWEFR Patient Comments: LAST DOSE 02/07/25 FOR COLONOSCOPY 02/12/25 calcium carbonate [Oyster Shell Calcium 500] 500 MG tablet 500 mg PO BID ramipril 5 MG capsule 5 mg PO DAILY vitamin B complex 1 EACH capsule 1 ea PO DAILY fexofenadine-pseudoephedrine [Carmelita-D 24 Hour] 1 EACH tablet extended release 24 hr 1 ea PO DAILY cholecalciferol (vitamin D3) [Vitamin D3] 1,000 UNIT tablet 2,000 unit PO BID Fish Oil 1 EACH capsule 1 ea PO DAILY Ibuprofen [Motrin] 800 MG tablet 800 mg PO TID PRN PRN (Reason: Pain) budesonide 32 mcg/actuation spray,non-aerosol 2 spray intranasal QHS Rx Instructions: administer into each nostril zinc gluconate 50 mg tablet 50 mg PO DAILY pantoprazole 40 mg tablet,delayed release (DR/EC) 40 mg PO DESIRE Referrals / Follow Up: Kade Frances MD [Primary Care Provider, Family Practice] Disposition Disposition (needs filled in before D/C Order can be placed): Home, Self Care
--- NOTE | 2025-05-28 11:17 | PCM.POST.ANE ---
Anesthesia: Postop Eval I Current Vital Signs Temperature: 97.3 F Pulse Rate: 81 Blood Pressure: 144/70 Respiratory Rate: 20 Pulse Ox: 100 Oxygen Delivery Method: Room Air Assessment Airway patent: Yes Spontaneous unlabored respirations: Yes Mental status: Awake and Calm nausea: No Vomiting: No Anesthesia Complication: No Fluid Hydration Crystalloid volume administer (ml): 2,000 Total IV fluid infused: 2,000 Progress Note Anesthesia document: Postop Eval 1 completed: Yes
--- NOTE | 2025-05-28 12:36 | POSTOPAN2_ITS ---
Anesthesia Postop Eval I Sum Postop Eval Completion status Anesthesia document: Postop Eval 1 completed: Yes Anesthesia Postop Eval I Summary Anesthesia Postop Eval I Summary: Anesthesia Postop Eval I: Assessment Summary Airway patent Yes 05/28/25 11:18 [email or web address] Spontaneous unlabored Yes 05/28/25 11:18 CHEMICAL [email or web address] respirations Mental status Awake,Calm 05/28/25 11:18 [email or web address] nausea No 05/28/25 11:18 CHEMICAL [email or web address] Vomiting No 05/28/25 11:18 CHEMICAL [email or web address] Anesthesia Postop Eval I: Fluid Summary Crystalloid volume administer 2,000 05/28/25 11:18 CHEMICAL [email or web address] (ml) Colloids volume administered ( ml) Blood Product volume administered (ml) Total IV fluid infused 2,000 05/28/25 11:18 CHEMICAL [email or web address] Anesthesia Postop Eval I: Summary Notes Anesthesia Complication No 05/28/25 11:18 [email or web address] Anesthesia Complication Comment: Post-operative progress note Anesthesia: Postop Eval II Evaluation Mental status: Awake and Calm Pain Level: 1 nausea: No Vomiting: No Complications Anesthesia Complication: No
--- NOTE | 2025-05-28 12:36 | PCM.POSTANE2 ---
Anesthesia Postop Eval I Sum Postop Eval Completion status Anesthesia document: Postop Eval 1 completed: Yes Anesthesia Postop Eval I Summary Anesthesia Postop Eval I Summary: Anesthesia Postop Eval I: Assessment Summary Airway patent Yes 05/28/25 11:18 DIRECTOR OF MANAGED [email or web address] Spontaneous unlabored Yes 05/28/25 11:18 DIRECTOR OF MANAGED SERVICES.[email or web address] respirations Mental status Awake,Calm 05/28/25 11:18 DIRECTOR OF MANAGED [email or web address] nausea No 05/28/25 11:18 DIRECTOR OF MANAGED SERVICES.[email or web address] Vomiting No 05/28/25 11:18 DIRECTOR OF MANAGED [email or web address] Anesthesia Postop Eval I: Fluid Summary Crystalloid volume administer 2,000 05/28/25 11:18 DIRECTOR OF MANAGED [email or web address] (ml) Colloids volume administered ( ml) Blood Product volume administered (ml) Total IV fluid infused 2,000 05/28/25 11:18 DIRECTOR OF MANAGED [email or web address] Anesthesia Postop Eval I: Summary Notes Anesthesia Complication No 05/28/25 11:18 DIRECTOR OF MANAGED [email or web address] Anesthesia Complication Comment: Post-operative progress note Anesthesia: Postop Eval II Evaluation Mental status: Awake and Calm Pain Level: 1 nausea: No Vomiting: No Complications Anesthesia Complication: No
== END 2025-05-28 16:05 | disposition home or self-care (01) ==
LOC: SDC 06:03 → AC 06:04
PROVIDERS: PCP Family Medicine; Referring Provider Surgery; Visit Provider Surgery
PROC: 0YQ64ZZ Repair Left Inguinal Region, Percutaneous Endoscopic Approach (ICD-10-PCS; CPT 49593; principal; 2025-05-28 07:10)
DX: K43.9 Ventral hernia without obstruction or gangrene (principal); K21.9 Gastro-esophageal reflux disease without esophagitis; K80.20 Calculus of gallbladder without cholecystitis without obstruction; I10 Essential (primary) hypertension; Z79.82 Long term (current) use of aspirin; Z79.899 Other long term (current) drug therapy
CPT/HCPCS: 49593; S2900; 00840; 93005; C1781; J2405

== ENCOUNTER → 2025-06-29 | Outpatient (CLI) | payer MEDICARE, SELFPAY ==
--- OUTSIDE RECORDS SUMMARY | 2025-06-29 07:44 | XMS RPT_ITS | CCD ---
Author Organization [facility] CliniSynj Care Team Providers Care Tyre Fitter Name Role Phone Ang PEARSON, Kade Edwards Primary Care Provider Ang PEARSON, Kade Edwards Primary Care Provider Vinnie OCAMPO.Addie ISLAS Unavailable Ena Aguiar PA-C Unavailable Ang PEARSON, Dr. Braun Primary Care Provider [phone] Nabil PEARSON, Dr. Arroyo Attending Provider Nabil PEARSON, Dr. Arroyo Referring Provider Joey PEARSON, Dr. Aranda Attending Provider Joey PEARSON, Dr. Aranda Referring Provider Joey PEARSON, Dr. Aranda Other Provider Eugenia PEARSON, Dr. Doherty Attending Provider Ang PEARSON, Kade Edwards Primary Care Provider Dr. Kade Fry MD Referring Provider Dr. Darrin Lozoya DO Attending Provider Devora NGUYEN, Dr. Clifford Referring Provider Ang PEARSON, Dr. Braun Primary Care Provider Nabil PEARSON, Dr. Arroyo Attending Provider Nabil PEARSON, Dr. Arroyo Referring Provider Devora NGUYEN, Dr. Clifford Other Provider [phone] Vinnie OCAMPO.Addie ISLAS Unavailable Ena Aguiar PA-C Unavailable Sammy AGARWAL, Zulma Attending Provider [phone] Ang PEARSON, Dr. Braun Primary Care Provider Devora NGUYEN, Dr. Clifford Attending Provider Friend , Dr. Clifford Referring Provider Ang PEARSON, Dr. Braun Referring Provider Sammy BACK LINE COOK-C, Zulma Referring Provider [phone] Ang PEARSON, Dr. Braun Primary Care Provider Devora NGUYEN, Dr. Clifford Attending Provider Nabil PEARSON, Dr. Arroyo Attending Provider Nabil PEARSON, Dr. Arroyo Referring Provider Quynh PEARSON, Dr. Montes De Oca Attending Provider Quynh PEARSON, Dr. Montes De Oca Referring Provider Ang PEARSON, Dr. Braun Primary Care Physician [phone] Devora NGUYEN, Dr. Clifford Attending Physician [phone] Devora NGUYEN, Dr. Clifford Nurse Practitioner Sammy BACK LINE COOK-C, Zulma Attending Physician Nabil PEARSON, Dr. Aroryo Attending Physician Quynh PEARSON, Dr. Montes De Oca Attending Physician Jesse PEARSON, Dr. Bauer Attending Physician Jason PEARSON, Dr. Gallegos Referring Provider Quynh PEARSON, Dr. Montes De Oca Nurse Practitioner KADE FRY Referring Unavailable ANG, KADE A Primary Care Unavailable MANOJ GAMINO Referring Unavailable MANOJ GAMINO Attending Unavailable CHETAN BHAGAT Attending Unavailable ANG, KADE A Primary Care Unavailable ANG, KADE A Referring Unavailable ANG, KADE A Primary Care Unavailable TESTCHETAN BELL Attending Unavailable ANG, KADE A Primary Care Unavailable ANG, KADE A Primary Care Unavailable TESTCHETAN BELL Referring Unavailable ANG, KADE A Referring Unavailable TESTCHETAN BELL Attending Unavailable ANG, KADE A Primary Care Unavailable ANG, KADE A Referring Unavailable ANG, KADE A Primary Care Unavailable MANOJ GAMINO Attending Unavailable ANG, KADE A Attending Unavailable ANG, KADE A Primary Care Unavailable ENA AGUIAR Referring Unavailable ANG, KADE A Referring Unavailable ANG, KADE A Primary Care Unavailable ANG, KADE A Referring Unavailable ANG, KADE A Primary Care Unavailable Ang PEARSON, Dr. Braun Primary Care Physician [phone] Dr. Kade Fry MD Referring Provider Tavon Beauchamp Referring Unavailable Tavon Beauchamp Attending Unavailable Ang, Kade Primary Care Unavailable Vellanki, Dina Referring Unavailable Vellanki, Dina Attending Unavailable Ang, Kade Primary Care Unavailable Vellanki, Dina Referring Unavailable Vellanliu, Dina Attending Unavailable Ang, Kade Primary Care Unavailable Manoj Gamino Referring Unavailable Manoj Gamino Consulting Unavailable Ang, Kade Primary Care Unavailable Chas Bello Attending Unavailable Tavon Beauchamp Attending Unavailable Ang, Kade Primary Care Unavailable Tavon Beauchamp Consulting Unavailable Tavon Beauchamp Referring Unavailable Ang, Kade Primary Care Unavailable Ang, Kade Referring Unavailable Zulma Christianson Attending Unavailable Ang, Kade Primary Care Unavailable Ang, Kade Referring Unavailable Zulma Christianson Attending Unavailable Ang, Kade Referring Unavailable Friend, Darrin Attending Unavailable Ang, Kade Primary Care Unavailable Tavon Beauchamp Attending Unavailable Ang, Kade Referring Unavailable Ang, Kade Primary Care Unavailable Ang, Kade Primary Care Unavailable Ang, Kade Referring Unavailable Tavon Beauchamp Attending Unavailable Vellanki, Dina Referring Unavailable Vellanki, Dina Attending Unavailable Ang, Kade Primary Care Unavailable Friend, Darrin Referring Unavailable Friend, Darrin Attending Unavailable Ang, Kade Primary Care Unavailable Friend, Darrin Referring Unavailable Friend, Darrin Attending Unavailable Ang, Kade Primary Care Unavailable Tavon Beauchamp Referring Unavailable Tavon Beauchamp Attending Unavailable Ang, Kade Primary Care Unavailable Ang, Kade Primary Care Unavailable Ang, Kade Referring Unavailable Friend, Darrin Consulting Unavailable Friend, Darrin Attending Unavailable Ang, Kade Referring Unavailable Friend, Darrin Attending Unavailable Ang, Kade Primary Care Unavailable Ang, Kade Primary Care Unavailable Dina Ferrer Attending Unavailable Dina Ferrer Referring Unavailable Kade Fry Primary Care Unavailable Zulma Christianson Referring Unavailable Zulma Christianson Attending Unavailable Manoj Gamino Referring Unavailable Manoj Gamino Attending Unavailable Kade Fry Primary Care Unavailable Unavailable Unavailable Unavailable Allergies Allergy Classification Reported Allergen(s) Allergy Type Date of Onset Reaction(s) Facility Alendronate (1 source) Alendronate Drug Allergy 12-13-19 24 Other: See Comments [facility] diphenhydrAMINE (1 source) diphenhydrAMINE Drug Allergy 01-02-20 06 Other: See Comments [facility] Work Phone: Latex (1 source) Latex Substance Allergy 01-15-20 10 Unknown [facility] Proton Pump Inhibitors (1 source) lansoprazole Drug Allergy 01-02-20 06 [facility] (20 sources) Adhesive agent; Translations: [ADHESIVE] Propensity to adverse reactions 03-18-20 16 Unknown [facility] (20 sources) diphenhydrAMINE Drug Allergy 05-26-20 16 "FEEL WEIRD" [facility] (20 sources) lansoprazole; Translations: [LANSOPRAZOLE] Drug Allergy 01-02-20 06 [facility] Work Phone: (20 sources) Latex; Translations: [LATEX] Allergy to substance 01-15-20 10 Unknown [facility] Work Phone: [phone] (20 sources) diphenhydrAMINE; Translations: [DIPHENHYDRAMINE HCL] Drug Allergy 01-02-20 06 Other: See Comments [facility] Work Phone: [phone] (14 sources) environmental [Other] Propensity to adverse reactions 02-07-20 10 Unknown [facility] Work Phone: [phone] (20 sources) Alendronate; Translations: [ALENDRONATE] Drug Allergy 12-13-19 24 Other: See Comments [facility] (1 source) Alendronate Drug Allergy 05-14-20 25 [facility] Repository (1 source) diphenhydrAMINE Drug Allergy 05-14-20 25 [facility] Repository (1 source) lansoprazole Drug Allergy 05-14-20 25 [facility] Repository (1 source) Latex Drug allergy (disorder) 05-14-20 [facility] Repository Medications Current Medications Medication Drug Class(es) Dates Sig (Normalized) Sig (Original) ascorbic acid 1000 mg oral capsule (20 sources) Vitamin C Start: 11-21-2024 take 1 g by mouth once daily Start: 09-27-2018 take 1 tablet by felipe th once daily Ascorbic Acid 1,000 mg tablet Take 1,000 mg by mouth once daily. 09/27/2018 Active Comment on above: Take 1,000 mg by felipe th once daily. aspirin 81 mg delayed releas e oral tablet (20 sources) Platelet Aggregation Inhibitor, Nonsteroidal Anti-inflammatory Drug Start: 01-10-2008 Comment on above: one tablet 3 times a week budesonide 0.032 mg/actuat metered dose nasal spray (20 sources) Corticosteroid Start: 05-14-2025 Start: 09-21-2024 budesonide (RH INOCORT ALLERGY) 32 mcg/actuation nasal spray Use 1 [place] in each nostril as needed. 09/21/2024 Active Start: 08-24-2017 End: 09-21-2024 take 1 spray(s) nasal route once daily budesonide (RHINOCORT ALLERGY) 32 mcg/actuation nasal spray Indications: Seasonal allergic rhinitis due to other allergic trigger, unspecified chronicity Use 1 [place] in each nostril once daily. 3 Bottle 3 08/24/2017 09/21/2024 Discontinued Comment on above: Use 1 [place] in each nostril once daily. calcium carbonate 1250 mg oral tablet (20 sources) Start: 6 calcium carbonate 600 mg / cholecalciferol 125 unt oral tablet (20 sources) Vitamin D Start: 0 Calcium-Cholecalc iferol, D3, (CALCIUM 600 + D) 600-125 mg-unit [...] Start: 05-26-2016 take 2 tablets by mo ut twice daily Start: 05-26-2016 Cholecalcifero l (Vitamin D3) (Vitamin D) 1,000 UNIT tablet Active 2000 U PO DAILY May 26, 2016 12:00am Comment on above: Take 2 capsules by m outh once daily. clobetasol propionate 0.0005 mg/mg topical [...] affected ar ea two times a day. docosahexaenoic acid/epa (FISH OIL ORAL) (20 sources) take 1000 mg by mouth once daily docosahexaenoic acid/epa (FISH OIL ORAL) Take 1,000 mg by mouth once daily. Active take 1000 mg by mouth once daily docosahexaenoic acid/epa (FISH OIL ORAL) Take 1,000 mg by mouth once daily. 0 Active Comment on above: Take 1,000 mg by [facility] once daily. doxycycline monohydrate 100 mg oral capsule (1 source) Tetracycline-class Drug Start: 06-18-20 End: 06-18-20 take 2 capsules by mouth once doxycycline monohydrate (MONODOX) 100 mg capsule Indications: Tick bite of right thigh, initial encounter Take 2 capsules by mouth one time only for 1 dose. 2 capsule 0 06/18/2022 06/18/2022 Active Comment on above: Take 2 capsules by m out one time only for 1 dose. fexofenadine hydrochloride 180 mg oral tablet (20 sources) Histamine-1 Receptor Antagonist Start: 12-17-19 10 fexofenadine hcl(CARMELITA 180 MG TAB) Indications: Allergic rhinitis, cause unspecified Take one(1) tablet daily. 90 3 12/16/2009 Active Comment on above: Take one(1) tablet d aily. 24 hr fexofenadine hydrochloride 180 mg / pseudoephedrine hydrochloride 240 mg extended release oral tablet (16 sources) alpha-Adrenergic Agonist, Histamine-1 Receptor Antagonist Start: 05-26-20 take 1 tablet by mouth every twenty-four hours Start: 05-26-2016 Fexofenadine-P seudoephedrine (Carmelita-D 24 Hour [...] take 2 tablets by mouth once daily Comment on above: Take 2 mg by [...] Active Start: 05-26-2016 take 1 tablet by mouth three t imes daily as needed for pain Comment on above: Take 1 tablet by felipe every 8 hours as needed. FOR PAIN. methotrexate 2.5 mg oral tab let (20 sources) Folate Analog Metabolic Inhibitor Start: 11-21-2024 Start: 10-30-2021 take 1 tablet by mouth once me thotrexate 2.5 mg tablet Take 2.5 mg by mouth every Wednesday. Taking 8 tablets weekly 10/30/2021 Active Start: 10-30-2021 take 5 tablets by mo uth every week, then take 4 tablets by mouth every week methotrexate 2.5 mg tablet TAKE 5 TABLETS BY MOUTH ONCE A WEEK AFTER TAKING 4 TABLETS ONCE A WEEK FOR 2 WEEKS 10/30/2021 Active Comment on above: TAKE 5 TABLETS BY MO [facility] ONCE A WEEK AFTER TAKING 4 TABLETS ONCE A WEEK FOR 2 WEEKS Multivitamin With Folic Acid (Thera) 1 TABLET tablet (20 sources) Start: 05-26-2016 take 1 tablet by [...] Comment on above: 1 Drop twice daily. pataday Whitefield-3 Fatty Acids-Fish Oil (Fish Oil 1,000 Mg Capsule) 1 EACH capsule (12 sources) Start: 05-26-2016 Whitefield-3 Fatty Acids-Fish Oil (Fish Oil 1,000 Mg Capsule) 1 EACH capsule Active 3 EACH PO DAILY May 26, 2016 10:57am Start: 05-26-2016 Whitefield-3 Fatty Acids-Fish Oil (Fish Oil 1,000 Mg Capsule) 1 EACH capsule Active 3 NMA PO DAILY May 26, 2016 12:00am Start: 05-26-2016 Whitefield-3 Fatty Acids-Fish Oil (Fish Oil 1,000 Mg Capsule) 1 EACH capsule Active 3 EACH PO DAILY May 25, 2016 11:00pm Start: 05-26-2016 Whitefield-3 Fatty Acids-Fish Oil (Fish Oil 1,000 Mg Capsule) 1 EACH capsule Active 3 EACH PO DAILY May 26, 2016 12:00am Whitefield-3 Fatty Acids-Fish Oil (Fish Oil) 1 EACH capsule (9 sources) Start: 05-26-2016 Start: 05-26-2016 Whitefield-3 Fatty Acids-Fish Oil (Fish Oil) 1 EACH capsule Active 1 NMA PO DAILY May 26, 2016 12:00am Complies with drug therapy Start: 05-26-2016 Whitefield-3 Fatty Acids-Fish Oil (Fish Oil) 1 EACH capsule Active 1 NMA PO DAILY May 26, 2016 12:00am Whitefield-3 Fatty Acids/Fish Oil (Fish Oil 1,000 Mg Capsule) 1 EACH Capsule (1 source) Start: 05-26-2016 Whitefield-3 Fatty Acids/Fish Oil (Fish Oil 1,000 Mg Capsule) 1 EACH Capsule Active 3 EACH PO DAILY May 26, 2016 10:57am pantoprazole 40 mg delayed release oral tablet (20 sources) Proton Pump Inhibitor Start: 05-07-2025 End: 05-14-2025 Start: 09-19-2021 End: 03-09-2025 take 1 tablet [...] take 1 capsule by mouth once daily Comment on above: Take 1 capsule by mo ut once daily. sodium chloride-aloe vera (AYR SALINE) [...] d aily. Vitamin B Complex 1 EACH cap jordy (12 sources) Start: 05-26-2016 Start: 05-26-2016 Vitamin B Comp nick 1 [...] daily. zinc gluconate 50 mg oral tablet (3 sources) Start: 05-14-2025 take 1 tablet by mouth once daily Completed/Discontinued Medications Medication Drug Class(es) Dates Sig [...] above: Take 1 tablet by felipe th one time a week. In AM with [...] chlorhexidine gluconate 40 mg/ml medicated liquid soap (3 sources) Start: 05-07-2025 End: 05-14-2025 Chlorhexidine Gluconate (Hibiclens) 4 % liquid Discontinued 1 NMA TOPICAL ONCE 473 0 May 07, 2025 12:00am May 14, 2025 12:58pm Shower with once daily for one week dicyclomine hydrochloride 10 mg oral capsule (8 sources) Anticholinergic Start: 03-09-2025 End: 06-06-2025 take 1 capsule by mouth twice daily as needed for pain Dicyclomine 10 mg capsule Discontinued 10 mg PO TWICE A DAY as needed for abdominal pain 14 0 March 09, 2025 12:00am June 06, 2025 9:40am docusate sodium 100 mg oral capsule (20 [...] 2024 3:31pm famotidine 40 mg oral tablet (4 sources) Histamine-2 Receptor Antagonist Start: 04-13-2025 End: [...] 09/19/2021 09/25/2021 mupirocin 0.02 mg/mg topical ointment (3 sources) RNA Synthetase Inhibitor Antibacterial Start: 05-07-2025 End: 05-14-2025 Mupirocin (Centany) 2 % ointment Discontinued 1 NMA TOPICAL TWICE A DAY 15 0 May 07, 2025 12:00am May 14, 2025 12:56pm Apply to a qtip into bilateral nares BID for one week omeprazole 40 mg delayed release oral capsule (13 sources) Proton Pump Inhibitor Start: 04-06-2025 End: 04-13-2025 take 1 capsule by mouth once daily Omeprazole 40 mg capsule,delayed release(DR/EC) Discontinued 40 mg PO daily 90 3 April 06, 2025 12:00am April 13, 2025 11:10am Take 30minutes before eating. Start: 03-09-2025 End: 04-06-2025 take 1 capsule by mouth twice daily Omeprazole 20 mg capsule,delayed release(DR/EC) Discontinued 20 mg PO TWICE A DAY 60 0 March 09, 2025 12:00am April 06, 2025 1:44pm Take 30 minutes before eating oxyCODONE hydrochloride 5 mg oral tablet (2 sources) Opioid Agonist Start: 05-28-2025 End: 06-06-2025 take 1 tablet by mouth every six hours as needed for pain Oxycodone 5 mg tablet Discontinued 5 mg PO EVERY 6 HOURS as needed for pain 10 May 28, 2025 June 06, 2025 9:40am Stenosis of colon promethazine hydrochloride 25 mg oral tablet (20 sources) Phenothiazine Start: 06-02-2016 End: 11-21-2024 take 1 tablet by mouth every four hours as needed for nausea Promethazine 25 MG tablet Discontinued 25 mg PO EVERY 4 HOURS NEEDED as needed for Nausea 10 June 02, 2016 12:00am November 21, 2024 3:31pm Problems Active Problems Problem Classification Problem Date Documented Da te Episodic/Chronic Abdominal hernia (19 sources) Spigelian hernia; Translations: [Ventral hernia without [...] Onset: 5 11-27-2024 Episodic Biliary tract disease (6 sources) Biliary calculus; Translations: [Calculus of gallbladder [...] Comment on above: CONTROLLED AT THIS T NEELAM WITH MED Essential hypertension (20 sources) Essential hypertension; Translations: [Essential (primary) hypertension] Onset: 0 08-28-2019 Chronic Genitourinary symptoms and ill-defined conditions (20 sources) Mixed urinary incontinence; Translations: [Mixed incontinence] Onset: 2 08-28-2019 Chronic Hemorrhoids (20 sources) Internal hemorrhoids; Translations: [Other hemorrhoids] Episodic Intestinal obstruction without hernia (20 sources) Stenosis of colon; Translations: [Other intestinal [...] osteoarthritis, unspecified site] Onset: 3 Chronic Other aftercare (2 sources) History of hernia repair; Translations: [Encounter for follow-up examination after completed treatment for conditions other than malignant neoplasm] 06-06-2025 Episodic Comment on above: Patient is a 70-year -old female who is now 9 days status post robot-assisted left spigelian hernia repair with mesh placement. She is doing very well in her recovery and is pleased with some tangential results that have amounted to resolution of previously unconnected symptoms. I reviewed pictures from her operation with her and her . She is well-healing on exam. I have encouraged her to apply triple antibiotic ointment to her incisions once daily as a means of trying to heal them quickly and thereby protect her mesh further. She is also encouraged to continue adherence to activity restrictions. Examples of activity were provided. She is cleared to return to driving which she had avoided to this point. Request follow-up visit in 5 weeks to review healing further. 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 [address] [place] [address] OFFICE VISIT Date of Service: 06/06/25 MR#: [id number] Acct: [id number] Name: ELISHA GODFREY Rep #: [id number] : 1955 Provider: Dr. Tavon andrew MD Age/Sex: 70/F Location: [facility] Status: Signed Intake Vital Signs 05/28/25 06:24 Height 5 ft 5.5 in Intake Visit Reasons: INGUINAL HERNIA 05-28 Chief Complaint: spigelian hernia f/u Accompanied by: Is patient in pain?: No Allergies lansoprazole (From Prevacid) Allergy (Verified 05/14/25 12:54) Hives latex Allergy (Verified 05/14/25 12:54) Unknown alendronate sodium (From Fosamax) Adverse Reaction (Unknown, Verified 05/14/25 12:54) heartburn adhesive Adverse Reaction (Verified 05/14/25 12:54) Unknown diphenhydramine (From Benadryl) Adverse Reaction (Verified 05/14/25 12:54) FEEL WEIRD Medications ???Medication ???Instructions ???Recorded ???Confirmed ???Type Ibuprofen [Motrin] 800 mg PO TID PRN PRN Pain 6 05/28/25 History aspirin 81 mg tablet,delayed 81 mg PO MOWEFR 05/26/16 05/28/25 History release calcium carbonate (Oyster Shell 500 mg PO BID 05/26/16 05/28/25 Hi story Calcium 500) cholecalciferol (vitamin D3) 25 2,000 unit PO BID 05/26/16 5 History mcg (1,000 unit) tablet (Vitamin D3) fexofenadine-pseudoephedrin e ER 1 ea PO DAILY 05/26/16 05/28/25 Hi story 180 mg-240 mg tablet,ext.release 24 hr (Carmelita-D 24 Hour) omega-3 fatty acids-fish oil 340 1 ea PO DAILY 05/26/16 05/28/25 Hi story mg-1,000 mg capsule (Fish Oil) ramipril 5 mg capsule 5 mg PO DAILY 05/26/16 05/28/25 Hi story vitamin B complex 1 ea PO DAILY 05/26/16 05/28/25 Hi story ascorbic acid (vitamin C) 1,000 mg 1 g PO QDAY 11/21/24 05/28/25 Hi story capsule methotrexate sodium 2.5 mg tablet 20 mg PO SA 11/21/24 05/28/25 His tory folic acid 1 mg tablet 2 mg PO QDAY 11/27/24 05/28/25 His tory budesonide 32 mcg/actuation nasal 2 spray intranasal QHS 05/14/25 1 History spray pantoprazole 40 mg tablet,delayed 40 mg PO MOTUWETH GERD 05/14/25 1 History release zinc gluconate 50 mg tablet 50 mg PO DAILY 05/14/25 05/28/25 H istory Have you fallen in the past year?: No Subjective Details: Patient presents following robot-assisted left spigelian hernia repair with mesh on 05/28/2025. Patient presents today with her . Since hospital discharge they have been doing well and she reports that she is feeling "a lot better". She states she noticed a difference with her stomach "right away". They report minimal postoperative pain and did not require any of the prescribed pain medication during her recovery. She shares that her bowels are "doing good" and adds that they are better than what they had been". They had no wound concerns. They confirm that they are abiding by lifting restrictions. In addition to the above she is pleased to report that she had some "issues" with her legs and describes that she frequently felt as though someone needed to pull on them to relieve the discomfort. She also adds that she had some symptoms of sciatica in both of these symptoms have been nearly completely alleviated since undergoing her operation. Objective Details: Constitutional: Appreciative, cooperative Abdomen: Ecchymotic changes about 3 port site incisions with some increased erythema for the medial portion of patient's left upper quadrant port site. Abdomen is soft, nondistended and generally nontender to palpation otherwise. She describes some very mild tenderness over her prior hernia site left lower quadrant but there is no bulging or fluid collected in this location. Coding Level of Care Code Global Post Op Diagnoses Status post spigelian hernia repair, follow-up exam Z09 [facility] Medical History Loss of hearing Post-menopausal Bladder disease Easy bruising Back pain Injury of back History of diverticulitis History of stress test Wears glasses Rheumatoid arthritis TIA (transient ischemic attack) History of hiatal hernia Difficulty swallowing Non-smoker Shortness of breath on exertion Leg cramps History of edema GERD (gastroesophageal reflux disease) Osteopenia Hypertension Migraines Arthritis Surgical History (Updated 06/06/25 @ 17:[address] Tavon Beauchamp MD) Status post spigelian hernia repair, follow-up exam History of esophagogastroduodenoscopy (EGD) History of colonoscopy History of tubal ligation H/O: hysterectomy History of appendectomy History of tonsillectomy Family History Mother Arthritis Brother Arthritis Diabetes Heart disease Bleeding disord (more content not included)... Normal [facility] Discharge Instructionon Discharge Instruction [facility] Medical Records Department [address] [place] [address] Instructions for Home/Discharge Instructions 05/28/25 1102 MR#: [id number] Acct: [id number] Name: ELISHA GODFREY Rep #: [id number] : 1955 70 From: Tavon Beauchamp MD PCP: Dr. Kade Fry MD Status:DEP [facility] Discharge Instructions Diet Discharge Diet: No restrictions Activity Discharge Activity: May Not Drive (While taking narcotic pain medication) and May Shower May shower in (days): 2 Ice area for (Minutes): 20 Lifting Restrictions: No lifting greater than 10 pounds for the next 5 weeks Dressing / Incision Call your doctor if your incision/area has: Continuous Slow Oozing, Increased Pain/ Swelling, Increased Redness, Foul Smelling Discharge and Swelling at the incision site Call your doctor if you observe: Fever of 101 or Higher, Inability to urinate and Inability to have a bowel movement Change Dressing in: 2 days (Please leave Steri-Strips intact until they fall off spontaneously or are taken off at your follow-up visit) Remove Dressing in: 2 days Cleanse incision/area with: Soap Water and Keep Dressing Clean Dry Follow Up Care Please Follow Up With: Tavon Beauchamp MD When: 1 week postop Test Results: Test results from this visit will be discussed in further detail at your follow-up appointment, if applicable. Discharge Plan Admission Primary Reason for Your Visit: Left ventral hernia repair Attending Provider: Tavon Beauchamp Primary Care Provider: Kade Fry Instructions Print Language: Setswana Discharge Orders/Prescriptions Prescriptions: New oxycodone 5 mg tablet 5 mg PO Q6H PRN (Reason: pain) 5 Days Qty: 10 0RF Continued ascorbic acid (vitamin C) 1,000 mg capsule 1 g PO QDAY methotrexate sodium 2.5 mg tablet 20 mg PO SA folic acid 1 mg tablet 2 mg PO QDAY dicyclomine 10 mg capsule 10 mg PO BID PRN (Reason: abdominal pain) Qty: 14 0RF aspirin 81 MG tablet 81 mg PO MOWEFR Patient Comments: LAST DOSE 02/07/25 FOR COLONOSCOPY 02/12/25 calcium carbonate [Oyster Shell Calcium 500] 500 MG tablet 500 mg PO BID ramipril 5 MG capsule 5 mg PO DAILY vitamin B complex 1 EACH capsule 1 ea PO DAILY fexofenadine-pseudoephedrin e [Carmelita-D 24 Hour] 1 EACH tablet extended release 24 hr 1 ea PO DAILY cholecalciferol (vitamin D3) [Vitamin D3] 1,000 UNIT tablet 2,000 unit PO BID Fish Oil 1 EACH capsule 1 ea PO DAILY Ibuprofen [Motrin] 800 MG tablet 800 mg PO TID PRN PRN (Reason: Pain) budesonide 32 mcg/actuation spray,non-aerosol 2 spray intranasal QHS Rx Instructions: administer into each nostril zinc gluconate 50 mg tablet 50 mg PO DAILY pantoprazole 40 mg tablet,delayed release (DR/EC) 40 mg PO MOTUWETH Referrals / Follow Up: Kade Fry MD [Primary Care Provider, Family Practice] Disposition Disposition (needs filled in before D/C Order can be placed): Home, Self Care 05/28/251922 Tavon Beauchamp MD CC: Dr. Kade Fry MD Signed [facility] MR/POSTOP.[facility] 05-28-2025 MR/POSTOP.[facility] Medical Records Department [address] [place] [address] Anesthesia Postop Eval I 05/28/25 1117 MR#: [id number] Acct: [id number] Name: ELISHA GODFREY Rep #: [id number] : 1955 70 From: Eddie Miller CRNA PCP: Dr. Kade Fry MD Status:REG SDC Y Race: C Location: [place] [address]- Anesthesia: Postop Eval I Current Vital Signs Temperature: 97.3 F Pulse Rate: 81 Blood Pressure: 144/70 Respiratory Rate: 20 Pulse Ox: 100 Oxygen Delivery Method: Room Air Assessment Airway patent: Yes Spontaneous unlabored respirations: Yes Mental status: Awake and Calm nausea: No Vomiting: No Anesthesia Complication: No Fluid Hydration Crystalloid volume administer (ml): 2,000 Total IV fluid infused: 2,000 Progress Note Anesthesia document: Postop Eval 1 completed: Yes 05/28/25 1118 Date Eddie Angela PLASTERER SPOT Cosigner Signature: Date CC: Signed Normal [facility] MR/EAFLZCKT6ov 05-28-2025 MR/POSTOPAN2 [facility] Medical Records Department [address] [place] [address] Anesthesia Postop Eval II 05/28/25 1236 MR#: [id number] Acct: [id number] Name: BEKAHELISHA M Rep #: [id number] : 1955 70 From: Mikaela Bustamante CRNA PCP: Dr. Kade Fry MD Status:REG SDC Y Race: C Location: [address] Anesthesia Postop Eval I Sum Postop Eval Completion status Anesthesia document: Postop Eval 1 completed: Yes Anesthesia Postop Eval I Summary Anesthesia Postop Eval I Summary: Anesthesia Postop Eval I: Assessment Summary Airway patent Yes 05/28/25 11:18 [email or web address] [email or web address].[email or web address] Spontaneous unlabored Yes 05/28/25 11:18 [email or web address] SPOT.PKEL respirations Mental status Awake,Calm 05/28/25 11:18 [email or web address] SPOT.PKEL nausea No 05/28/25 11:18 PLASTERER SPOT.PKEL Vomiting No 05/28/25 11:18 [email or web address] SPOT.PKEL Anesthesia Postop Eval I: Fluid Summary Crystalloid volume administer 2,000 05/28/25 11:18 [email or web address] SPOT.PKEL (ml) Colloids volume administered ( ml) Blood Product volume administered (ml) Total IV fluid infused 2,000 05/28/25 11:18 [email or web address].PKEL Anesthesia Postop Eval I: Summary Notes Anesthesia Complication No 05/28/25 11:18 [email or web address] SPOT.PKJACY Anesthesia Complication Comment: Post-operative progress note Anesthesia: Postop Eval II Evaluation Mental status: Awake and Calm Pain Level: 1 nausea: No Vomiting: No Complications Anesthesia Complication: No 05/28/25 1236 Date Mikaela Bustamante PLASTERER SPOT Cosigner Signature: Date CC: Signed Normal [facility] Operative Reporton 5 Operative Report [facility] Medical Records Department [address] [facility] [place] [address] Operative Report 05/28/25 1057 MR#: [id number] Acct: [id number] Name: ELISHA GODFREY Gray Rep #: [id number] : 1955 70 From: Tavon Beauchamp MD PCP: Dr. Kade Fry MD Status:[facility] Location: [facility] Operative Report (Standard) Operative Information Date of Procedure: 05/28/25 Pre-Operative Diagnosis: Left spigelian hernia containing colon Post-Operative Diagnosis: Left spigelian hernia containing sigmoid colon Surgery/Procedure Performed: Robot-assisted transabdominal preperitoneal repair of spigelian hernia with mesh placement manager commercial: Yes Houseman: Avani Gilbert Tasks completed by recruitment and outreach assistant: Opening closing and Other (Material and instrument exchange at the robot) Type of Anesthesia: General/Supplemental RN Documented Start/Stop Times: Operation Date: 05/28/25 07:30 Case Time Into Pre-Op 05/28/25 06:11 Out of Pre-Op 05/28/25 07:34 Anesthesia Start 05/28/25 07:40 Into Room 05/28/25 07:40 Procedure Start 05/28/25 08:04 Procedure End 05/28/25 11:06 Anesthesia End 05/28/25 11:11 Out of Room 05/28/25 11:11 Into Recovery 05/28/25 11:14 Out of Recovery 05/28/25 13:08 Into Phase II Recovery 05/28/25 13:12 Out of Phase II 05/28/25 16:05 Procedure Start Time: 08:04 Procedure Stop Time: 11:06 Select all DRAINS/GRAFTS/IMPLANTS that apply: None and Prosthetic device (ProGrip 16 x 12 cm mesh (cut to 12 x 12 cm)) Prosthetic device details: LOT [id number], reference [id number] Estimated Blood Loss: 25 Specimen collected: No Description of surgery: After appropriate identification in the preoperative holding area the patient was brought to the operating room where she was positioned supine on the operating table. Preoperative antibiotics were completed and the patient was administered a general anesthetic. Patient's abdomen was then prepped and draped in usual sterile fashion. Formal timeout followed to confirm patient and procedure. Procedure was begun with an optical entry facilitated by Veress insufflation at Catalan's point. Once pneumoperitoneum reached a set point pressure of 15 mmHg a 8 mm robotic trocar was placed with a careful Optiview technique. Follow-up laparoscopic investigation revealed no inadvertent injury to the viscera below. A second port was placed in the right upper quadrant followed by a third port through the epigastrium???both under laparoscopic visualization. The robot was docked in standard fashion. In this positioning I could visualize the patient's known left spigelian defect. I proceeded to take advantage of the laparoscopic visualization to produce a local block lateral to the area of the hernia defect prior to dissection infiltrating quarter percent bupivacaine. Robotically, a peritoneal flap was created on the left, entering into the lateral visceral compartment approximately 4cm proximal to the visualized abdominal wall defect. This flap was extended inferiorly until I came down over the hernia sac. Perforating vessels were addressed with monopolar and bipolar energy from the robot depending on the vessel size to minimize the risk for bleeding in the pocket. Gentle traction was applied to the hernia sac as I used the robotic scissors to sweep upward. However, it felt as though I had limited traction on the hernia contents which prolapsed back through their defect. My manipulation of the hernia contents was further limited both by the inclusion of colon in the defect as well as the abutment to the inferior epigastric vein medially. Noting these limitations I elected to open the hernia sac circumferentially and reduced the hernia contents to the preperitoneal pocket and then to the peritoneum via a peritoneal rent. A significant amount of subcutaneous tissue and sigmoid colon was reduced with the hernia sac. The colon was inspected and I found a single serosal injury laterally which I designated for repair following remainder of the hernia repair. For the present time I extended my dissection approximately 5cm inferior to the hernia defect. I used a ruler to confirm adequate dissection within the preperitoneal pocket and then obtained a 1 STRATAFIX suture to close the abdominal wall defect transversely and running the suture back upon itself. I then placed a ProGrip mesh (originally 12 x 16 cm) cut to 12 x 12 cm into the pocket and pressed this in the place overlying the hernia defect. Two point fixation, medially and laterally, was used with interrupted 3-0 Vicryl to prevent translation of the mesh. The peritoneal flap was closed superiorly with a running 3-0 V-Loc suture. I then used a second 3-0 V-Loc suture to close the peritoneal rent laterally where the colon remained loose adherent to the peritoneal surface. A final 3-0 V-Loc suture was used to close the p (more content not included)... Normal [facility] 12 Lead EKGon 05-15-2025 12 Lead EKG [facility] Cardiovascular Services [address] [place] [address] 12 Lead EKG 05/15/25 0809 MR#: [id number] Acct: [id number] Name: ELISHA GODFREY Rep #: [id number] : 1955 70 From: Juancarlos Molina MD Attending Dr: Dr. Tavon Beauchamp MD Status: PRE [facility] Ordering Dr: El Gomez MD Date: 05/15/25 Location: [facility] Sex: F C Admitted: Test Reason : [...] was found Confirmed by JESSE PEARSON, JUANCARLOS ([id number]), videotape editor SANDEEP PHIPPS ([id number]) on 05/15/2025 1:50:53 PM Referred By: Tavon Beauchamp Confirmed By: JUANCARLOS MOLINA MD 05/15/25 1350 Date Juancarlos Molina MD CC: Dr. El Gomez MD; Dr. Kade Fry MD; Dr. Tavon Beauchamp MD Signed Normal [facility] Electrocardiogram reportOrde red By: Juancarlos Molina on 05-15-2025 EKG study [facility] Cardiovascular Services [address] [place] [address] 12 Lead EKG 05/15/25 0809 MR#: [id number] Acct: [id number] Name: ELISHA GODFREY Rep #:[id number] : 1955 70 From: Juancarlos Molina MD Attending Dr: Dr. Tavon Beauchamp MD Status: PRE SDC Ordering Dr: El Gomez MD Date: 04/24 11/14 Location: [facility] Sex: F C Admitted: Test Reason : [...] was found Confirmed by JESSE PEARSON, JUANCARLOS ([id number]), videotape editor SANDEEP PHIPPS ([id number]) on 05/15/2025 1:50:53 PM Referred By: Tavon Beauchamp Confirmed By: JUANCARLOS MOLINA MD 05/15/25 1350 Date _ Juancarlos Molina MD CC: Dr. El Gomez MD; Dr. Kade Fry MD; Dr. Tavon Beauchamp MD ~ Signed [facility] Work Phone: MRSA/SAID NASAL SCREENon MRSA+SAID SCRN Copy of report sent to Infection Control Printer MS#[id number] 05/04/25 9023 LUKE. MRSA MRSA Negative S. AUREUS S. aureus PositiveA Normal [facility] Comment on above: Performed By: #### M 100.651 ####[facility] [address] [place], [address] MRSA screenOrdered By: Erwin Beauchamp on 05-03-2025 MRSA DNA JOSELUIS+probe Ql (Unsp spec) [facility] Surgery Visit Reporton 05-03 Surgery Visit Report [facility] [address] [place], [place] [address] OFFICE VISIT Date of Service: 05/03/25 MR#: [id number] Acct: [id number] Name: ELISHA GODFREY Rep #: [id number] : 1955 Provider: Dr. Tavon andrew MD Age/Sex: 70/F Location: [facility] Status: Signed Intake Vital Signs 02/12/25 [...] She shares that this pain seems to "come and go". She also adds that she has had no pain since she started going for further evaluation. She reports when the pain was present it was a "sharp pain" that would "double you over". She wishes to know how this might be connected back to the fact that despite a history of uneventful colonoscopy she has presented twice now for colonoscopy with 2 separate gastroenterologists and neither procedure was able to be completed due to "the narrowness" of her colon. Ms. Godfrey denies any history of an inciting event such as lifting or straining. She denies any history of skin infections. Later in the visit she remarks that there was "drooping" of her abdominal wall following her appendix surgery. She is uncertain when her laparoscopic appendectomy was undertake (more content not included)... Normal [facility] Gastroenterology Visit Repor ton 04-06-2025 Gastroenterology Visit Report [facility] Gastroenterology [address] [place] [address] OFFICE VISIT Date of Service: 04/06/25 MR#: [id number] Acct: [id number] Name: ELISHA GODFREY Rep #: [id number] : 1955 Provider: ANY matta Age/Sex: 69/F Location: [facility] Status: Signed Intake Vital Signs 02/12/25 [...] presents to the office today for FU. 4.7.25 OV *BGI established, pt reports that she [...] with incomplete (more content not included)... Normal [facility] Abdomen/Pelvis WITH Contrast on 04-02-2025 Abdomen/Pelvis WITH Contrast [facility] Imaging Services [address] [place] [address] Abdomen/Pelvis WITH Contrast MR#: [id number] Acct: [id number] Name: ELISHA GODFREY Rep #: [id number] : 1955 F 69 From: Ry soto MD PCP: Dr. Kade Fry MD Status: REG CLI Study: Abdomen/Pelvis WITH Contrast Date of Exam: 07/17 Exam# [id number] Ordering Dr: Zulma Christianson BACK LINE COOK-C PROCEDURE: ABDOMEN/PELVIS WITH CONTRAST 04/02/2025 REASON FOR [...] small bowel loops. Sigmoid diverticulosis. Reading Location: [place] [address] CC: ANY Christianson; Dr. Kade Fry MD [employer] Hcm Developer: Signed Normal [facility] Absolute lymphocyte countOrd ered By: Dinadahiana Ferrer on 03-27-2025 Lymphocytes Auto (Unsp spec) [#/Vol] 1.20 10*3/uL 0.83-4.51 [facility] Absolute neutrophil countOrd ered By: [facility] on 03-27-2025 Neutrophils (Bld) [#/Vol] 3.0 10*3/uL 2.0-7.7 [facility] Anion gap in Serum or Plasma Ordered By: Dina Ferrer on 03-27-2025 Anion gap [Moles/Vol] 13 mmol/L 5-15 [facility] Automated lymphocyte count a s percentage of total leukocytesOrdered By: Dina Ferrer on 03-27-2025 Lymphocytes/100 WBC Auto (Unsp spec) 25.9 % 19-41 [facility] BUN/creatinine ratioOrdered By: [facility] Nabil on 03-27-2025 Urea nitrogen/Creatinine [Mass ratio] 23.9 mg/mg High 10-20 [facility] Basophil percentageOrdered B y: Dina Ferrer on 03-27-2025 Basophils/100 WBC (Bld) 0.4 % 0-1 [facility] Bilirubin, totalOrdered By: Dina Ferrer on 03-27-2025 Bilirubin [Mass/Vol] 0.72 mg/dL 0.00-1.30 [facility] CBC W/Diff, Automatedon Absolute Lymph 1.20 X10 3/uL Normal 0.83-4.51 [facility] Comment on above: Performed By: #### L 100.0100, L500.4050 ####[facility] [address] [place], [place], [id number] Absolute Neut 3.0 X10 3/uL Normal 2.0-7.7 [facility] Comment on above: Performed By: #### L 100.0100, L500.4050 ####[facility] [address] [place], [address] Basophils/100 WBC (Bld) 0.4 % Normal 0-1 [facility] Comment on above: Performed By: #### L 100.0100, L500.4050 ####[facility] [address] [place], [address] Eosinophils/100 WBC (Bld) 1.7 % Normal 0-5 [facility] Comment on above: Performed By: #### L 100.0100, L500.4050 ####[facility] [address] [place], [address] Erythrocyte distribution width (RBC) [Ratio] 12.6 % Normal 11.6-14.6 [facility] Comment on above: Performed By: #### L 100.0100, L500.4050 ####[facility] [address] [place], [address] Hematocrit (Bld) [Volume fraction] 41.4 % Normal 37-47 [facility] Comment on above: Performed By: #### L 100.0100, L500.4050 ####[facility] [address] [place], [address] Hemoglobin (Bld) [Mass/Vol] 13.9 g/dL Normal 12.0-15.0 [facility] Comment on above: Performed By: #### L 100.0100, L500.4050 ####[facility] [address] [place], [address] IG% 0.400 Normal 0.0-0.9 [facility] Comment on above: Result Comment: IG% - Immature Granulocytes (promyelocytes, myelocytes and metamyelocytes) > 1% indicates that a LEFT SHIFT is Present. Performed By: #### L 100.0100, L500.4050 ####[facility] [address] [place], [address] Lymphocytes/100 WBC (Bld) 25.9 % Normal 19-41 [facility] Comment on above: Performed By: #### L 100.0100, L500.4050 ####[facility] [address] [place], [address] MCH (RBC) [Entitic mass] 35.0 pg High 27.0-32.0 [facility] Comment on above: Performed By: #### L 100.0100, L500.4050 ####[facility] [address] [place], [address] MCHC (RBC) [Mass/Vol] 33.6 g/dL Normal 32-36 [facility] Comment on above: Performed By: #### L 100.0100, L500.4050 ####[facility] [address] [place], [address] MCV (RBC) [Entitic vol] 104.3 fL High 81-99 [facility] Comment on above: Performed By: #### L 100.0100, L500.4050 ####[facility] [address] [place], [address] Monocytes/100 WBC (Bld) 6.3 % Normal 0-10 [facility] Comment on above: Performed By: #### L 100.0100, L500.4050 ####[facility] [address] [place], [address] Neutrophils/100 WBC (Bld) 65.3 % Normal 47-70 [facility] Comment on above: Performed By: #### L 100.0100, L500.4050 ####[facility] [address] [place], [address] Nucleated RBC (Bld) [#/Vol] 0 10*3/uL Normal 0-5 [facility] Comment on above: Performed By: #### L 100.0100, L500.4050 ####[facility] [address] [place], [address] Platelet mean volume (Bld) [Entitic vol] 11.2 fL Normal 6.2-12.0 [facility] Comment on above: Performed By: #### L 100.0100, L500.4050 ####[facility] [address] [place], [address] Platelets (Bld) [#/Vol] 206 10*3/uL Normal 150-450 [facility] Comment on above: Performed By: #### L 100.0100, L500.4050 ####[facility] [address] [place], [address] RBC (Bld) [#/Vol] 3.97 10*6/uL Low 4.2-5.4 [facility] Comment on above: Performed By: #### L 100.0100, L500.4050 ####[facility] [address] [place], [address] RDW SD 48.4 fl High 35.1-43.9 [facility] Comment on above: Performed By: #### L 100.0100, L500.4050 ####[facility] [address] [place], [address] WBC (Bld) [#/Vol] 4.6 10*3/uL Normal 4.4-11.0 [facility] Comment on above: Performed By: #### L 100.0100, L500.4050 ####[facility] [address] [place], [address] Carbon dioxide, total [Moles /volume] in Central venous bloodOrdered By: Dina Ferrer on 08-05-2025 CO2 [Moles/Vol] 24.9 mmol/L 21.0-32.0 [facility] Chloride assayOrdered By: Ba Ferrer on 03-27-2025 Chloride [Moles/Vol] 102 mmol/L 98-108 [facility] Comprehensive Metabolic Prof ilon 03-27-2025 Albumin [Mass/Vol] 4.5 g/dL Normal 3.4-4.8 [facility] Comment on above: Performed By: #### L 100.0100, L500.4050 #### [facility] Laboratory [address] [place], [address] Albumin/Globulin [Mass ratio] 1.8 {ratio} Normal 0.9-2.4 [facility] Comment on above: Performed By: #### L 100.0100, L500.4050 #### [facility] [address] [place], [address] ALK PHOS 97 U/L Normal 35-104 [facility] Comment on above: Performed By: #### L 100.0100, L500.4050 #### [facility] [address] [place], [address] ALT [Catalytic activity/Vol] 13 U/L Normal <=34 [facility] Comment on above: Performed By: #### L 100.0100, L500.4050 #### [facility] [address] [place], [address] AST [Catalytic activity/Vol] 29 U/L Normal <=31 [facility] Comment on above: Performed By: #### L 100.0100, L500.4050 #### [facility] [address] [place], [address] Bilirubin [Mass/Vol] 0.72 mg/dL Normal 0.00-1.30 [facility] Comment on above: Performed By: #### L 100.0100, L500.4050 #### [facility] [address] [place], [address] BUN/CRE 23.9 RATIO High 10-20 [facility] Comment on above: Performed By: #### L 100.0100, L500.4050 #### [facility] [address] [place], [address] Calcium [Mass/Vol] 9.5 mg/dL Normal 7.6-11.0 [facility] Comment on above: Performed By: #### L 100.0100, L500.4050 #### [facility] [address] [place], [address] Chloride [Moles/Vol] 102 mmol/L Normal 98-108 [facility] Comment on above: Performed By: #### L 100.0100, L500.4050 #### [facility] [address] [place], [address] CO2 [Moles/Vol] 24.9 mmol/L Normal 21.0-32.0 [facility] Comment on above: Performed By: #### L 100.0100, L500.4050 #### [facility] [address] [place], [address] Creatinine [Mass/Vol] 0.77 mg/dL Normal 0.70-1.20 [facility] Comment on above: Performed By: #### L 100.0100, L500.4050 #### [facility] [address] [place], [address] GAP 13 Normal 5-15 [facility] Comment on above: Performed By: #### L 100.0100, L500.4050 #### [facility] [address] [place], [address] GFR/1.73 sq M.predicted among non-blacks MDRD (S/P/Bld) [Vol rate/Area] 83 mL/min/{1.73_m2} Normal >60 [facility] Comment on above: Result Comment: mL/m in/1.73m2 CKD-EPI Creatinine Equation (2020) Performed By: #### L 100.0100, L500.4050 #### [facility] [address] [place], [address] Globulin (S) [Mass/Vol] 2.5 g/dL Normal 2.2-4.2 [facility] Comment on above: Performed By: #### L 100.0100, L500.4050 #### [facility] [address] [place], [address] Glucose [Mass/Vol] 164 mg/dL High 70-99 [facility] Comment on above: Performed By: #### L 100.0100, L500.4050 #### [facility] [address] [place], [address] Potassium [Moles/Vol] 3.9 mmol/L Normal 3.3-5.1 [facility] Comment on above: Performed By: #### L 100.0100, L500.4050 #### [facility] [address] [place], [address] Sodium [Moles/Vol] 139 mmol/L Normal 133-145 [facility] Comment on above: Performed By: #### L 100.0100, L500.4050 #### [facility] [address] [place], [address] T PROT 7.0 g/dL Normal 5.9-8.4 [facility] Comment on above: Performed By: #### L 100.0100, L500.4050 #### [facility] [facility] [address] [place], [address] Urea nitrogen [Mass/Vol] 19 mg/dL Normal 4-19 [facility] Comment on above: Performed By: #### L 100.0100, L500.4050 #### [facility] [address] [place], [address] Eosinophil percentageOrdered By: Dina Ferrer on 03-27-2025 Eosinophils/100 WBC (Bld) 1.7 % 0-5 [facility] Erythrocyte distribution wid th ratioOrdered By: Dina Ferrer on 03-27-2025 Erythrocyte distribution width (RBC) [Ratio] 12.6 % 11.6-14.6 [facility] Erythrocyte distribution wid th standard deviationOrdered By: Dina Ferrer on 03-27-2025 Erythrocyte distribution width (RBC) [Ratio] 48.4 fl High 35.1-43.9 [facility] Glomerular filtration rate ( GFR) estimation/1.73 sq m using serum, plasma, or whole bOrdered By: Dina Ferrer on 03-27-2025 GFR/1.73 sq M.predicted among non-blacks MDRD (S/P/Bld) [Vol rate/Area] 83 mL/min/{1.73_m2} >60 [facility] Comment on above: mL/min/1.73m2 CKD-EP I Creatinine Equation (2020) Hematocrit Auto (Bld) [Volum e fraction]Ordered By: Dina Ferrer on 03-27-2025 Hematocrit (Bld) [Volume fraction] 41.4 % 37-47 [facility] Hemoglobin measurementOrdere d By: Dina Ferrer on 03-27-2025 Hemoglobin (Bld) [Mass/Vol] 13.9 g/dL 12.0-15.0 [facility] Immature granulocytes/100 WB C Auto (Bld)Ordered By: Dina Ferrer on 03-27-2025 Immature granulocytes/100 WBC (Bld) 0.400 % 0.0-0.9 [facility] Comment on above: IG% - Immature Granu locytes (promyelocytes, myelocytes and metamyelocytes) > 1% indicates that a LEFT SHIFT is Present. Laboratory - Chemistry and C hemistry - challengeOrdered By: Dina Ferrer on 03-27-2025 AST [Catalytic activity/Vol] 29 U/L <32 [facility] MCV (mean corpuscular volume ) determinationOrdered By: Dina Ferrer on 03-27-2025 MCV (RBC) [Entitic vol] 104.3 fL High 81-99 [facility] Mean corpuscular hemoglobin (MCH) determinationOrdered By: Dina Ferrer on 03-27-2025 MCH (RBC) [Entitic mass] 35.0 pg High 27.0-32.0 [facility] Mean corpuscular hemoglobin concentration (MCHC) determinationOrdered By: Dina Ferrer on 03-27-2025 MCHC (RBC) [Mass/Vol] 33.6 g/dL 32-36 [facility] Mean platelet volume determi nationOrdered By: Dina Ferrer on 03-27-2025 Platelet mean volume (Bld) [Entitic vol] 11.2 fL 6.2-12.0 [facility] Monocyte percentageOrdered B y: Dina Ferrer on 03-27-2025 Monocytes/100 WBC (Bld) 6.3 % 0-10 [facility] Neutrophil percentageOrdered By: Dina Ferrer on 03-27-2025 Neutrophils/100 WBC (Bld) 65.3 % 47-70 [facility] Nucleated red blood cell per centageOrdered By: Dina Ferrer on 03-27-2025 Nucleated RBC/100 WBC (Bld) [Ratio] 0 % 0-5 [facility] Platelet countOrdered By: Ba Ferrer on 03-27-2025 Platelets (Bld) [#/Vol] 206 10*3/uL 150-450 [facility] Potassium measurement (mass/ volume)Ordered By: Dina eFrrer on 03-27-2025 Potassium (Unsp spec) [Mass/Vol] 3.9 mmol/L 3.3-5.1 [facility] RBC Auto (Bld) [#/Vol]Ordere d By: Dina Ferrer on 03-27-2025 RBC (Bld) [#/Vol] 3.97 10*6/uL Low 4.2-5.4 [facility] Serum creatinine measurement (mass/volume)Ordered By: Dina Ferrer on 03-27-2025 Creatinine [Mass/Vol] 0.77 mg/dL 0.70-1.20 [facility] Serum globulin measurementOr dered By: Dina Ferrer on 03-27-2025 Globulin (S) [Mass/Vol] 2.5 g/dL 2.2-4.2 [facility] Serum glucose measurement (m ass/volume)Ordered By: Dina Ferrer on 03-27-2025 Glucose [Mass/Vol] 164 mg/dL High 70-99 [facility] Serum or plasma alanine abraham otransferase (ALT) measurementOrdered By: Dina Ferrer on 03-27-2025 ALT [Catalytic activity/Vol] 13 U/L <35 [facility] Serum or plasma albumin shira urement (mass/volume)Ordered By: Dina Ferrer on 03-27-2025 Albumin [Mass/Vol] 4.5 g/dL 3.4-4.8 [facility] Serum or plasma albumin/glob ulin mass ratioOrdered By: Dina Ferrer on 03-27-2025 Albumin/Globulin [Mass ratio] 1.8 {ratio} 0.9-2.4 [facility] Serum or plasma alkaline ramone sphatase measurementOrdered By: Dina Ferrer on 03-27-2025 ALP [Catalytic activity/Vol] 97 U/L 35-104 [facility] Serum or plasma calcium shira urement (mass/volume)Ordered By: Dina Ferrer on 03-27-2025 Calcium [Mass/Vol] 9.5 mg/dL 7.6-11.0 [facility] Serum or plasma urea nitroge n measurement (mass/volume)Ordered By: Dina Ferrer on 03-27-2025 Urea nitrogen [Mass/Vol] 19 mg/dL 4-19 [facility] Sodium levelOrdered By: Shaila Ferrer on 03-27-2025 Sodium [Moles/Vol] 139 mmol/L 133-145 [facility] Total proteinOrdered By: Issac Ferrer on 03-27-2025 Protein [Mass/Vol] 7.0 g/dL 5.9-8.4 [facility] White blood cell (WBC) count Ordered By: Dina Ferrer on 03-27-2025 WBC (Bld) [#/Vol] 4.6 10*3/uL 4.4-11.0 [facility] Gastroenterology Visit Repor ton 03-09-2025 Gastroenterology Visit Report [facility]enterology [address] [place] [address] OFFICE VISIT Date of Service: 03/09/25 MR#: [id number] Acct: [id number] Name: ELISHA GODFREY Rep #: [id number] : 1955 Provider: ANY matta Age/Sex: 69/F Location: [facility] Status: Signed Intake Vital Signs 06/02/16 07:59 [...] is associ (more content not included)... Normal [facility] Colonoscopy Reporton 025 Colonoscopy Report [facility] Medical Records Department [address] [place] [address] Colonoscopy Report MR#: [id number] Acct: [id number] Name: ELISHA GODFREY Rep #: [id number] : 1955 69 From: Darrin Lozoya DO PCP: Dr. Kade Fry MD Status:[facility] Patient Name: Elisha Godfrey Procedure Date: 02/12/2025 [...] to therapy. Procedure Code(s): --- Professional --- 60461, Colonoscopy, flexible; diagnostic, including collection of specimen(s) by brushing or washing, when performed (separate procedure) CPT copyright 2021 [employer]. All rights reserved. The codes documented in this report are preliminary and upon lastex operator review may be revised to meet current compliance requirements. Darrin Lozoya DO 02/12/2025 11:10:50 AM This report has been signed electronically. Number of Addenda: 0 Note Initiated On: 02/12/2025 10:21 AM 02/12/25 1111 Date Darrin Lozoya DO Cosigner Signature: Date (if indicated) CC: Dr. Kade Fry MD; Darrin Lozoya DO Date Dictated: 02/12/25 1021 Date Transcribed: Pe[employer] Hcm Developer: RF Signed Normal [facility] EGD Reporton 02-12-2025 EGD Report [facility] Medical Records Department [address] [place] [address] EGD Report MR#: [id number] Acct: [id number] Name: ELISHA GODFREY Rep #: [id number] : 1955 69 From: Darrin Lozoya DO PCP: Dr. Kade Fry MD Status:[facility] Patient Name: Elisha Godfrey Procedure Date: 02/12/2025 [...] pathology results. Procedure Code(s): --- Professional --- 41544, Esophagogastroduodenoscopy, flexible, transoral; with biopsy, single or multiple CPT copyright 2021 [employer]. All rights reserved. The codes documented in this report are preliminary and upon lastex operator review may be revised to meet current compliance requirements. Darrin Lozoya DO 02/12/2025 11:05:56 AM This report has been signed electronically. Number of Addenda: 0 Note Initiated On: 02/12/2025 10:04 AM 02/12/25 1106 Date Darirn Lozoya DO Cosigner Signature: Date (if indicated) CC: Dr. Kade Fry MD; Darrin Lozoya DO Date Dictated: 02/12/25 1004 Date Transcribed: [employer] Hcm Developer: ABUNDIO Signed Normal [facility] Immunohistochemical Stainson 02-12-2025 Immunohistochemical Stains Patient Age/Sex Location Account Attending Physician ELISHA GODFREY 69/F EN [id number] Darrin Lozoya DO Specimen: [id number] Received: 02/12/25 Status: MARLENI Rowley Num: [id number] Spec Type: COLON BX Subm Dr: Darrin Lozoya, HEADER OPERATION: Colonoscopy (unable to complete procedure [...] developed and their performance characteristics determined by [facility]. They may not have been cleared [...] labeled with the patient's name and designated "Gastric body biopsy." The specimen consists of multiple irregular fragments of light rajput soft tissue that in aggregate measure 0.1 to 0.5 cm. The specimen is totally submitted in one cassette. SU/ 02/12/2025 CPT:36988i6,31777 Patient Age/Sex Location Account Attending Physician ELISHA GODFREY 69/F EN [id number] Darrin Lozoya DO Signed (signature on file) Dr. Georgette Clement MD 02/28/25 1435 Normal [facility] Comment on above: Performed By: #### P MARGARITO ####[facility] [address] [place], [place], [id number] MR/POSTOP.Jose Luis 02-12-2025 MR/POSTOP.[facility] Records Department [address] [place] [address] Anesthesia Postop Eval I 02/12/25 1108 MR#: [id number] Acct: [id number] Name: ELISHA GODFREY Rep #: [id number] : 1955 69 From: Javier Cat PCP: Dr. Kade Fry MD Status:REG SDC Y Race: C Location: [place] [address] Anesthesia: Postop Eval I Current Vital Signs [...] Javier Ruelas Signature: Date CC: Signed Normal [facility] MR/[id number] 02-12-20[facility] Medical Records Department [address] [place] [address] Anesthesia Postop Eval II 02/12/25 1149 MR#: [id number] Acct: [id number] Name: ELISHA GDOFREY Rep #: [id number] : 1955 69 From: Jimmy Gillis MD PCP: Dr. Kade Fry MD Status:REG SDC Y Race: C Location: [place] [address] Anesthesia Postop Eval I Sum Postop Eval [...] No 02/12/25 1149 Date Jimmy Gillis MD Cosigner Signature: Date CC: Signed Normal [facility] Absolute lymphocyte countOrd ered By: Dina Ferrer on 12-26-2024 Lymphocytes Auto (Unsp spec) [#/Vol] 1.02 10*3/uL 0.83-4.51 [facility] Absolute neutrophil countOrd ered By: Dina Ferrer on 12-26-2024 Neutrophils (Bld) [#/Vol] 2.0 10*3/uL 2.0-7.7 [facility] Anion gap in Serum or Plasma Ordered By: Dina Fererr on 12-26-2024 Anion gap [Moles/Vol] 10 mmol/L 5-15 [facility] Automated lymphocyte count a s percentage of total leukocytesOrdered By: Dina Ferrer on 12-26-2024 Lymphocytes/100 WBC Auto (Unsp spec) 29.9 % 19-41 [facility] BUN/creatinine ratioOrdered By: Dina Nabil on 12-26-2024 Urea nitrogen/Creatinine [Mass ratio] 22.8 mg/mg High 10-20 [facility] Basophil percentageOrdered B y: Dina Ferrer on 12-26-2024 Basophils/100 WBC (Bld) 0.6 % 0-1 [facility] Bilirubin, totalOrdered By: Dinadahiana Ferrer on 12-26-2024 Bilirubin [Mass/Vol] 0.68 mg/dL 0.00-1.30 [facility] CBC W/Diff, Automatedon Absolute Lymph 1.02 X10 3/uL Normal 0.83-4.51 [facility] Comment on above: Performed By: #### L 100.0100, L500.4050 ####[facility] [address] [place], [address] Absolute Neut 2.0 X10 3/uL Normal 2.0-7.7 [facility] Comment on above: Performed By: #### L 100.0100, L500.4050 ####[facility] [address] [place], [address] Basophils/100 WBC (Bld) 0.6 % Normal 0-1 [facility] Comment on above: Performed By: #### L 100.0100, L500.4050 ####[facility] [address] [place], [address] Eosinophils/100 WBC (Bld) 3.2 % Normal 0-5 [facility] Comment on above: Performed By: #### L 100.0100, L500.4050 ####[facility] [address] [place], [address] Erythrocyte distribution width (RBC) [Ratio] 12.7 % Normal 11.6-14.6 [facility] Comment on above: Performed By: #### L 100.0100, L500.4050 ####[facility] [address] [place], [address] Hematocrit (Bld) [Volume fraction] 38.7 % Normal 37-47 [facility] Comment on above: Performed By: #### L 100.0100, L500.4050 ####[facility] [address] [place], [address] Hemoglobin (Bld) [Mass/Vol] 13.2 g/dL Normal 12.0-15.0 [facility] Comment on above: Performed By: #### L 100.0100, L500.4050 ####[facility] [address] [place], [address] IG% 0.300 Normal 0.0-0.9 [facility] Comment on above: Result Comment: IG% - Immature Granulocytes (promyelocytes, myelocytes and metamyelocytes) > 1% indicates that a LEFT SHIFT is Present. Performed By: #### L 100.0100, L500.4050 ####[facility] [address] [place], [address] Lymphocytes/100 WBC (Bld) 29.9 % Normal 19-41 [facility] Comment on above: Performed By: #### L 100.0100, L500.4050 ####[facility] [address] [place], [address] MCH (RBC) [Entitic mass] 35.4 pg High 27.0-32.0 [facility] Comment on above: Performed By: #### L 100.0100, L500.4050 ####[facility] [address] [place], [address] MCHC (RBC) [Mass/Vol] 34.1 g/dL Normal 32-36 [facility] Comment on above: Performed By: #### L 100.0100, L500.4050 ####[facility] [address] [place], [address] MCV (RBC) [Entitic vol] 103.8 fL High 81-99 [facility] Comment on above: Performed By: #### L 100.0100, L500.4050 ####[facility] [address] [place], [address] Monocytes/100 WBC (Bld) 8.2 % Normal 0-10 [facility] Comment on above: Performed By: #### L 100.0100, L500.4050 ####[facility] [address] [place], [address] Neutrophils/100 WBC (Bld) 57.8 % Normal 47-70 [facility] Comment on above: Performed By: #### L 100.0100, L500.4050 ####[facility] [address] [place], [address] Nucleated RBC (Bld) [#/Vol] 0 10*3/uL Normal 0-5 [facility] Comment on above: Performed By: #### L 100.0100, L500.4050 ####[facility] [address] [place], [address] Platelet mean volume (Bld) [Entitic vol] 10.2 fL Normal 6.2-12.0 [facility] Comment on above: Performed By: #### L 100.0100, L500.4050 ####[facility] [address] [place], [address] Platelets (Bld) [#/Vol] 198 10*3/uL Normal 150-450 [facility] Comment on above: Performed By: #### L 100.0100, L500.4050 ####[facility] [address] [place], [address] RBC (Bld) [#/Vol] 3.73 10*6/uL Low 4.2-5.4 [facility] Comment on above: Performed By: #### L 100.0100, L500.4050 ####[facility] [address] [place], [address] RDW SD 48.5 fl High 35.1-43.9 [facility] Comment on above: Performed By: #### L 100.0100, L500.4050 ####[facility] [address] [place], [address] WBC (Bld) [#/Vol] 3.4 10*3/uL Low 4.4-11.0 [facility] Comment on above: Performed By: #### L 100.0100, L500.4050 ####[facility] [address] [place], [address] Carbon dioxide, total [Moles /volume] in Central venous bloodOrdered By: Dina Ferrer on 12-26-2024 CO2 [Moles/Vol] 27.8 mmol/L 21.0-32.0 [facility] Chloride assayOrdered By: Ba Ferrer on 12-26-2024 Chloride [Moles/Vol] 103 mmol/L 98-108 [facility] Comprehensive Metabolic Prof ilon 12-26-2024 Albumin [Mass/Vol] 4.3 g/dL Normal 3.4-4.8 [facility] Comment on above: Performed By: #### L 100.0100, L500.4050 ####[facility] [address] [place], [address] Albumin/Globulin [Mass ratio] 1.7 {ratio} Normal 0.9-2.4 [facility] Comment on above: Performed By: #### L 100.0100, L500.4050 ####[facility] [address] [place], [address] ALK PHOS 89 U/L Normal 35-104 [facility] Comment on above: Performed By: #### L 100.0100, L500.4050 ####[facility] [address] [place], [address] ALT [Catalytic activity/Vol] 10 U/L Normal <=34 [facility] Comment on above: Performed By: #### L 100.0100, L500.4050 ####[facility] [address] [place], [address] AST [Catalytic activity/Vol] 25 U/L Normal <=31 [facility] Comment on above: Performed By: #### L 100.0100, L500.4050 ####[facility] [address] [place], [address] Bilirubin [Mass/Vol] 0.68 mg/dL Normal 0.00-1.30 [facility] Comment on above: Performed By: #### L 100.0100, L500.4050 ####[facility] [address] [place], [address] BUN/CRE 22.8 RATIO High 10-20 [facility] Comment on above: Performed By: #### L 100.0100, L500.4050 ####[facility] [address] [place], [address] Calcium [Mass/Vol] 9.6 mg/dL Normal 7.6-11.0 [facility] Comment on above: Performed By: #### L 100.0100, L500.4050 ####[facility] [address] [place], [address] Chloride [Moles/Vol] 103 mmol/L Normal 98-108 [facility] Comment on above: Performed By: #### L 100.0100, L500.4050 ####[facility] [address] [place], [address] CO2 [Moles/Vol] 27.8 mmol/L Normal 21.0-32.0 [facility] Comment on above: Performed By: #### L 100.0100, L500.4050 ####[facility] [address] [place], [address] Creatinine [Mass/Vol] 0.80 mg/dL Normal 0.70-1.20 [facility] Comment on above: Performed By: #### L 100.0100, L500.4050 ####[facility] [address] [place], [address] GAP 10 Normal 5-15 [facility] Comment on above: Performed By: #### L 100.0100, L500.4050 ####[facility] [address] [place], [address] GFR/1.73 sq M.predicted among non-blacks MDRD (S/P/Bld) [Vol rate/Area] 79 mL/min/{1.73_m2} Normal >60 [facility] Comment on above: Result Comment: mL/m in/1.73m2 CKD-EPI Creatinine Equation (2020) Performed By: #### L 100.0100, L500.4050 ####[facility] [address] [place], [address] Globulin (S) [Mass/Vol] 2.6 g/dL Normal 2.2-4.2 [facility] Comment on above: Performed By: #### L 100.0100, L500.4050 ####[facility] [address] [place], [address] Glucose [Mass/Vol] 110 mg/dL High 70-99 [facility] Comment on above: Performed By: #### L 100.0100, L500.4050 ####[facility] [address] [place], [address] Potassium [Moles/Vol] 4.3 mmol/L Normal 3.3-5.1 [facility] Comment on above: Performed By: #### L 100.0100, L500.4050 ####[facility] [address] [place], [address] Sodium [Moles/Vol] 141 mmol/L Normal 133-145 [facility] Comment on above: Performed By: #### L 100.0100, L500.4050 ####[facility] [address] [place], [address] T PROT 6.9 g/dL Normal 5.9-8.4 [facility] Comment on above: Performed By: #### L 100.0100, L500.4050 ####[facility] [address] [place], [address] Urea nitrogen [Mass/Vol] 18 mg/dL Normal 4-19 [facility] Comment on above: Performed By: #### L 100.0100, L500.4050 ####[facility] [address] [place], [address] Eosinophil percentageOrdered By: Dina Ferrer on 12-26-2024 Eosinophils/100 WBC (Bld) 3.2 % 0-5 [facility] Erythrocyte distribution wid th ratioOrdered By: Dina Ferrer on 12-26-2024 Erythrocyte distribution width (RBC) [Ratio] 12.7 % 11.6-14.6 [facility] Erythrocyte distribution wid th standard deviationOrdered By: Dina Ferrer on 12-26-2024 Erythrocyte distribution width (RBC) [Ratio] 48.5 fl High 35.1-43.9 [facility] Glomerular filtration rate ( GFR) estimation/1.73 sq m using serum, plasma, or whole bOrdered By: Dina Ferrer on 12-26-2024 GFR/1.73 sq M.predicted among non-blacks MDRD (S/P/Bld) [Vol rate/Area] 79 mL/min/{1.73_m2} >60 [facility] Comment on above: mL/min/1.73m2 CKD-EP I Creatinine Equation (2020) Hematocrit Auto (Bld) [Volum e fraction]Ordered By: Dina Ferrer on 12-26-2024 Hematocrit (Bld) [Volume fraction] 38.7 % 37-47 [facility] Hemoglobin measurementOrdere d By: Dina Ferrer on 12-26-2024 Hemoglobin (Bld) [Mass/Vol] 13.2 g/dL 12.0-15.0 [facility] Immature granulocytes/100 WB C Auto (Bld)Ordered By: Dina Ferrer on 12-26-2024 Immature granulocytes/100 WBC (Bld) 0.300 % 0.0-0.9 [facility] Comment on above: IG% - Immature Granu locytes (promyelocytes, myelocytes and metamyelocytes) > 1% indicates that a LEFT SHIFT is Present. Laboratory - Chemistry and C hemistry - challengeOrdered By: Dina Ferrer on 12-26-2024 AST [Catalytic activity/Vol] 25 U/L <32 [facility] MCV (mean corpuscular volume ) determinationOrdered By: Dina Ferrer on 12-26-2024 MCV (RBC) [Entitic vol] 103.8 fL High 81-99 [facility] Mean corpuscular hemoglobin (MCH) determinationOrdered By: Dina Ferrer on 12-26-2024 MCH (RBC) [Entitic mass] 35.4 pg High 27.0-32.0 [facility] Mean corpuscular hemoglobin concentration (MCHC) determinationOrdered By: Dina Ferrer on 12-26-2024 MCHC (RBC) [Mass/Vol] 34.1 g/dL 32-36 [facility] Mean platelet volume determi nationOrdered By: Dina Ferrer on 12-26-2024 Platelet mean volume (Bld) [Entitic vol] 10.2 fL 6.2-12.0 [facility] Monocyte percentageOrdered B y: Dina Ferrer on 12-26-2024 Monocytes/100 WBC (Bld) 8.2 % 0-10 [facility] Neutrophil percentageOrdered By: Dina Ferrer on 12-26-2024 Neutrophils/100 WBC (Bld) 57.8 % 47-70 [facility] Nucleated red blood cell per centageOrdered By: iDna Ferrer on 12-26-2024 Nucleated RBC/100 WBC (Bld) [Ratio] 0 % 0-5 [facility] Platelet countOrdered By: Ba Ferrer on 12-26-2024 Platelets (Bld) [#/Vol] 198 10*3/uL 150-450 [facility] Potassium measurement (mass/ volume)Ordered By: Dina Ferrer on 12-26-2024 Potassium (Unsp spec) [Mass/Vol] 4.3 mmol/L 3.3-5.1 [facility] RBC Auto (Bld) [#/Vol]Ordere d By: Dina Ferrer on 12-26-2024 RBC (Bld) [#/Vol] 3.73 10*6/uL Low 4.2-5.4 [facility] Serum creatinine measurement (mass/volume)Ordered By: Dina Ferrer on 12-26-2024 Creatinine [Mass/Vol] 0.80 mg/dL 0.70-1.20 [facility] Serum globulin measurementOr dered By: Dina Ferrer on 12-26-2024 Globulin (S) [Mass/Vol] 2.6 g/dL 2.2-4.2 [facility] Serum glucose measurement (m ass/volume)Ordered By: Dina Ferrer on 12-26-2024 Glucose [Mass/Vol] 110 mg/dL High 70-99 [facility] Serum or plasma alanine abraham otransferase (ALT) measurementOrdered By: Dina Ferrer on 12-26-2024 ALT [Catalytic activity/Vol] 10 U/L <35 [facility] Serum or plasma albumin shira urement (mass/volume)Ordered By: Dina Ferrer on 12-26-2024 Albumin [Mass/Vol] 4.3 g/dL 3.4-4.8 [facility] Serum or plasma albumin/glob ulin mass ratioOrdered By: Dina Ferrer on 12-26-2024 Albumin/Globulin [Mass ratio] 1.7 {ratio} 0.9-2.4 [facility] Serum or plasma alkaline ramone sphatase measurementOrdered By: Dina Ferrer on 12-26-2024 ALP [Catalytic activity/Vol] 89 U/L 35-104 [facility] Serum or plasma calcium shira urement (mass/volume)Ordered By: Dina Ferrer on 12-26-2024 Calcium [Mass/Vol] 9.6 mg/dL 7.6-11.0 [facility] Serum or plasma urea nitroge n measurement (mass/volume)Ordered By: Dina Ferrer on 12-26-2024 Urea nitrogen [Mass/Vol] 18 mg/dL 4-19 [facility] Sodium levelOrdered By: Shaila Ferrer on 12-26-2024 Sodium [Moles/Vol] 141 mmol/L 133-145 [facility] Total proteinOrdered By: Issac Ferrer on 12-26-2024 Protein [Mass/Vol] 6.9 g/dL 5.9-8.4 [facility] White blood cell (WBC) count Ordered By: Dina Ferrer on 12-26-2024 WBC (Bld) [#/Vol] 3.4 10*3/uL Low 4.4-11.0 [facility] Gastric Emptying Studyon Gastric Emptying Study [facility] Imaging Services [address] [place] [address] [id number] Gastric Emptying Study MR#: [id number] Acct: [id number] Name: ELISHA GODFREY Rep #: [id number] : 1955 F 69 From: Sammy Hercules MD PCP: Dr. Kade Fry MD Status: DEP CLI Study: Gastric Emptying Study Date of Exam: 12/18/24 Exam# [id number] Ordering Dr: Darrin Lozoya DO ADDENDUM by Dr. Chetan Pierre MD on 02/20/25 at 0118 1 hr gastric with oatmeal Reading Location: [id number] 02/20/25118 Date cc: Dr. Kade Fry MD; Darrin [...] geometric mean was used to calculate a zvpj-glswtysj-vodso. Fasting Blood Glucose (if diabetic): mg/dL. Medications taken in the past 24 hours that may affect gastric emptying: None RADIOPHARMACEUTICAL: 1 mCi of technetium 99 M sulfur colloid FINDINGS: Percent activity remaining in stomach: 1 hour 35 % (normal 37-90%) 2 hours: % (normal 30-60%) 4 hours: % (normal 0-10%) NM/Gastric Emptying Study IMPRESSION: Normal gastric emptying Reading Location: [facility] CC: Dr. Kade Fry MD; Darrin Lozoya DO [employer] H[employer] Developer: Signed Normal [facility] DBT Breast - right diagnosti c for [...] Azra De M.D. Electronically signed on: 12/05/2024 [employer] H[employer] Developer: RUI Transcrimoe Date/Time: Dec 05 2024 1:03P Dictated by: AZRA DE MD This examination was interpreted and the report reviewed and electronically signed by: AZRA DE MD on Dec 05 2024 1:56PM [facility] DIVISION OF RADIOLOGY * * *Final Report* * * DATE OF EXAM: Dec 05 2024 1:21PM [facility] 0629 - LEIGH DIAG W IRISH RT / PROCEDURE REASON: Abnormal mammogram * * * * Physician Interpretation * * * * RESULT: [address] [address] #[id number] - LEIGH DIAG W IRISH RT #[id number] - [facility] US BREAST LTD RT HISTORY: 69 [...] of mammographic concern. DIVISION OF RADIOLOGY Provider, [facility] - 12/05/2024 * * *Final Report* * * DATE OF EXAM: Dec 05 2024 1:21PM [facility] 0629 - LEIGH DIAG W IRISH RT / PROCEDURE REASON: Abnormal mammogram * * * * Physician Interpretation * * * * RESULT: [facility] [address] [place] [address] #[id number] - LEIGH DIAG W IRISH RT #[id number] - [facility] US BREAST LTD RT HISTORY: 69 [...] Azra De M.D. Electronically signed on: 12/05/2024 [employer] H[employer] Developer: RUI Transcribe Date/Time: Dec 05 2024 1:03P Dictated by: AZRA DE MD This examination was interpreted and the report reviewed and electronically signed by: AZRA DE MD on Dec 05 2024 1:56PM [facility] LEIGH COBURN RTon 12-05- 025 LEIGH COBURN RT * * *Final Report* * * DATE OF EXAM: Dec 05 2024 1:21PM W 0629 - LEIGH COBURN RT / PROCEDURE REASON: Abnormal mammogram * * * * Physician Interpretation * * * * RESULT: [facility] [address] [id number] #[id number] - [facility] RAMON W IRISH RT #[id number] - [facility] US BREAST LTD RT HISTORY: 69 [...] Azra De M.D. Electronically signed on: 12/05/2024 [employer] H[employer] Developer: RUI Transcribe Date/Time: Dec 05 2024 1:03P Dictated by: AZRA DE MD This examination was interpreted and the report reviewed and electronically signed by: AZRA DE MD on Dec 05 2024 1:56PM EST [id number] Normal [facility] US BREAST LTD RTon 12-05 [facility] US BREAST LTD RT * * *Final Report* * * DATE OF EXAM: Dec 05 2024 1:48PM [facility] 0594 - [facility] US BREAST LTD RT / PROCEDURE REASON: Abnormal mammogram * * * * Physician Interpretation * * * * [place] [address] #[id number] - [facility] DIAG W IRISH RT #[id number] - [facility] US BREAST LTD RT HISTORY: 69 [...] Azra De M.D. Electronically signed on: 12/05/2024 [employer] H[employer] Developer: RUI Transcribe Date/Time: Dec 05 2024 1:28P Dictated by : AZRA DE MD This examination was interpreted and the report reviewed and electronically signed by: AZRA DE MD on Dec 05 2024 1:56PM EST [id number] Normal [facility] No Panel InformationOrdered By: [facility] Provider on 12-05-2024 [facility] No Panel Informationon 12-05 Radiology Study observation (narrative) [facility] US Breast - right limitedon 12-05-2024 IMPRESSION: [...] Azra De M.D. Electronically signed on: 12/05/2024 [employer] H[employer] Developer: RUI Transcribe Date/Time: Dec 05 2024 1:28P Dictated by : AZRA DE MD This examination was interpreted and the report reviewed and electronically signed by: AZRA DE MD on Dec 05 2024 1:56PM EST DIVISION OF RADIOLOGY * * *Final Report* * * DATE OF EXAM: Dec 05 2024 1:48PM [facility] 0594 - [facility] Roomixer BREAST LTD RT / PROCEDURE REASON: Abnormal mammogram * * * * Physician Interpretation * * * * [place] [address] #[id number] - [facility] DIAG W IRISH RT #[id number] - [facility] US BREAST LTD RT HISTORY: 69 [...] of mammographic concern. DIVISION OF RADIOLOGY Provider, [facility] - 12/05/2024 * * *Final Report* * * DATE OF EXAM: Dec 05 2024 1:48PM U 0594 - [facility] Parantez RT / PROCEDURE REASON: Abnormal mammogram * * * * Physician Interpretation * * * * [place] [address] #[id number] - [facility] DIAG W IRISH RT #[id number] - [facility] Parantez RT HISTORY: 69 year-old patient seen for [...] Azra De M.D. Electronically signed on: 12/05/2024 [employer] H[employer] Developer: RUI Transcribe Date/Time: Dec 05 2024 1:28P Dictated by : AZRA DE MD This examination was interpreted and the report reviewed and electronically signed by: AZRA DE MD on Dec 05 2024 1:56PM [facility] Anti-Parietal Cell AB, QNon 11-30-2024 ANTIPARIET CELL 1.4 Units Normal 0.0-20.0 [facility] Comment on above: Result Comment: Nega tive 0.0 - 20.0 Equivocal 20.1 - 24.9 Positive >24.9 Parietal Cell Antibodies are found in 90% of patients with pernicious anemia and 30% of first degree relatives with pernicious anemia. Performed By: #### L 501.9520, L3100.3425, L101.9900, L3410.2350, L3410.1000, L501.6710, L503.0106, L504.2610, L3300.1800, L3410.0900 ####[facility] [address] [place], [address] Celiac AB,[facility] [place] ANTIGLIADIN IGA 8 units Normal 0-19 [facility] Comment on above: Result Comment: Nega tive 0 - 19 Weak Positive 20 - 30 Moderate to Strong Positive >30 Performed By: #### L 501.9520, L3100.3425, L101.9900, L3410.2350, L3410.1000, L501.6710, L503.0106, L504.2610, L3300.1800, L3410.0900 ####[facility] [address] [place], [address] ANTIGLIADIN IGG 5 units Normal 0-19 [facility] Comment on above: Result Comment: Nega tive 0 - 19 Weak Positive 20 - 30 Moderate to Strong Positive >30 Performed By: #### L 501.9520, L3100.3425, L101.9900, L3410.2350, L3410.1000, L501.6710, L503.0106, L504.2610, L3300.1800, L3410.0900 ####[facility] [address] [place], [address] ENDOMYSIAL IGA Negative Normal Negative [facility] Comment on above: Performed By: #### L 501.9520, L3100.3425, L101.9900, L3410.2350, L3410.1000, L501.6710, L503.0106, L504.2610, L3300.1800, L3410.0900 ####[facility] [address] [place], [address] tTG IGA 3 U/mL Normal 0-3 [facility] Comment on above: Result Comment: Nega tive 0 - 3 Weak Positive 4 - 10 Positive >10 Tissue Transglutaminase (tTG) has been identified as the endomysial antigen. Studies have demonstr- ated that endomysial IgA antibodies have over 99% specificity for gluten sensitive enteropathy. Performed By: #### L 501.9520, L3100.3425, L101.9900, L3410.2350, L3410.1000, L501.6710, L503.0106, L504.2610, L3300.1800, L3410.0900 ####[facility] [address] [place], [address] tTG IGG 4 U/mL Normal 0-5 [facility] Comment on above: Result Comment: Nega tive 0 - 5 Weak Positive 6 - 9 Positive >9 Performed By: #### L 501.9520, L3100.3425, L101.9900, L3410.2350, L3410.1000, L501.6710, L503.0106, L504.2610, L3300.1800, L3410.0900 ####[facility] [address] [place], [address] Gastrin, Serumon 11-30-2024 GASTRIN 665 pg/mL High 0-115 [facility] Comment on above: Result Comment: Siem ens Immulite 2000 Immunochemiluminometric assay (ICMA) Values obtained with different assay methods or kits cannot be used interchangeably. Results cannot be interpreted as absolute evidence of the presence or absence of malignant disease. Performed By: #### L 501.9520, L3100.3425, L101.9900, L3410.2350, L3410.1000, L501.6710, L503.0106, L504.2610, L3300.1800, L3410.0900 ####[facility] [address] [place], [address] DI + Protein Elect, Serumon 11-30-2024 Albumin [Mass/Vol] 4.0 g/dL Normal 2.9-4.4 [facility] Comment on above: Order Comment: N Performed By: #### L 501.9520, L3100.3425, L101.9900, L3410.2350, L3410.1000, L501.6710, L503.0106, L504.2610, L3300.1800, L3410.0900 ####[facility] [address] [place], [address] Albumin/Globulin [Mass ratio] 1.4 {ratio} Normal 0.7-1.7 [facility] Comment on above: Order Comment: N Performed By: #### L 501.9520, L3100.3425, L101.9900, L3410.2350, L3410.1000, L501.6710, L503.0106, L504.2610, L3300.1800, L3410.0900 ####[facility] [address] [place], [address] BBDQI-9-CQSV 0.3 g/dL Normal 0.0-0.4 [facility] Comment on above: Order Comment: N Performed By: #### L 501.9520, L3100.3425, L101.9900, L3410.2350, L3410.1000, L501.6710, L503.0106, L504.2610, L3300.1800, L3410.0900 ####[facility] [address] [place], [address] KBEQN-2-NABV 0.7 g/dL Normal 0.4-1.0 [facility] Comment on above: Order Comment: N Performed By: #### L 501.9520, L3100.3425, L101.9900, L3410.2350, L3410.1000, L501.6710, L503.0106, L504.2610, L3300.1800, L3410.0900 ####[facility] [address] [place], [address] BETA GLOBULIN 0.9 g/dL Normal 0.7-1.3 [facility] Comment on above: Order Comment: N Performed By: #### L 501.9520, L3100.3425, L101.9900, L3410.2350, L3410.1000, L501.6710, L503.0106, L504.2610, L3300.1800, L3410.0900 ####[facility] [address] [place], [address] GAMMA GLOBULIN 1.2 g/dL Normal 0.4-1.8 [facility] Comment on above: Order Comment: N Performed By: #### L 501.9520, L3100.3425, L101.9900, L3410.2350, L3410.1000, L501.6710, L503.0106, L504.2610, L3300.1800, L3410.0900 ####[facility] [address] [place], [address] Globulin (S) [Mass/Vol] 3.0 g/dL Normal 2.2-3.9 [facility] Comment on above: Order Comment: N Performed By: #### L 501.9520, L3100.3425, L101.9900, L3410.2350, L3410.1000, L501.6710, L503.0106, L504.2610, L3300.1800, L3410.0900 ####[facility] [address] [place], [address] DI RESULT,S Comment Normal . [facility] Comment on above: Order Comment: N Result Comment: No m onoclonality detected. Performed By: #### L 501.9520, L3100.3425, L101.9900, L3410.2350, L3410.1000, L501.6710, L503.0106, L504.2610, L3300.1800, L3410.0900 ####[facility] [address] [place], [address] IMMUNOGLOB A QN 91 mg/dL Normal 87-352 [facility] Comment on above: Order Comment: N Performed By: #### L 501.9520, L3100.3425, L101.9900, L3410.2350, L3410.1000, L501.6710, L503.0106, L504.2610, L3300.1800, L3410.0900 ####[facility] [address] [place], [place], [phone]) IMMUNOGLOB G QN 1053 mg/dL Normal 586-1602 [facility] Comment on above: Order Comment: N Performed By: #### L 501.9520, L3100.3425, L101.9900, L3410.2350, L3410.1000, L501.6710, L503.0106, L504.2610, L3300.1800, L3410.0900 ####[facility] [address] [place], [place], [id number] IMMUNOGLOB M QN 122 mg/dL Normal 26-217 [facility] Comment on above: Order Comment: N Performed By: #### L 501.9520, L3100.3425, L101.9900, L3410.2350, L3410.1000, L501.6710, L503.0106, L504.2610, L3300.1800, L3410.0900 ####[facility] [address] [place], [place], [id number] M-Raffaele Not Observed Normal Not Observed [facility] Comment on above: Order Comment: N Performed By: #### L 501.9520, L3100.3425, L101.9900, L3410.2350, L3410.1000, L501.6710, L503.0106, L504.2610, L3300.1800, L3410.0900 ####[facility] [address] [place], [place], [id number] NOTE: Comment Normal . [facility] Comment on above: Order Comment: N Result Comment: Prot ein electrophoresis scan will follow via computer, mail, or turret punch press operator delivery. Performed By: #### L 501.9520, L3100.3425, L101.9900, L3410.2350, L3410.1000, L501.6710, L503.0106, L504.2610, L3300.1800, L3410.0900 ####[facility] [address] [place], [place], [phone] Protein [Mass/Vol] 7.0 g/dL Normal 6.0-8.5 [facility] Comment on above: Order Comment: N Performed By: #### L 501.9520, L3100.3425, L101.9900, L3410.2350, L3410.1000, L501.6710, L503.0106, L504.2610, L3300.1800, L3410.0900 ####[facility] [address] [place], [address] Intrinsic Factor Abon 2024 INTRINS FACT AB 1.0 AU/mL Normal 0.0-1.1 [facility] Comment on above: Result Comment: Perf ormed at: - [facility] [id number] Health Record Technician: Eliazar Posadas PhD, Phone: [phone] Performed at: [facility] [id number] Health Record Technician: Praveen Khan MD, Phone: [phone] Performed By: #### L 501.9520, L3100.3425, L101.9900, L3410.2350, L3410.1000, L501.6710, L503.0106, L504.2610, L3300.1800, L3410.0900 ####[facility] [address] [place], [address] Addendum DocumentOrdered By: Darrin Lozoya on 11-27-2024 Serum Immunofixation Comments Comment . [facility] Comment on above: Protein electrophore sis scan will follow via computer,mail, or turret punch press operator delivery. Albumin Elph [Mass/Vol]Order ed By: Darrin Lozoya on 11-27-2024 Albumin [Mass/Vol] 4.0 g/dL 2.9-4.4 [facility] Alpha 1 globulin Elph [Mass/ Vol]Ordered By: Darrin Lozoya on 11-27-2024 Ypczp-2-Iisiatsmu (DI) 0.3 g/dL 0.0-0.4 [facility] Jpnfs-4-Vzrefsfde (DI) 0.7 g/dL 0.4-1.0 [facility] Beta globulin Elph [Mass/Vol ]Ordered By: Darrin Lozoya on 11-27-2024 Beta-Globulins (DI) 0.9 g/dL 0.7-1.3 [facility] CNOVon 11-27-2024 CNOV Office Visit (ORTHWS ) ELISHA GODFREY ([id number]) 1955 F Date Time Provider Department 11/27/24 2:30 PM MANOJ GAMINO During your visit today, we recorded the following information about you: Manoj Gamino MD 11/27/2024 6:41 PM Signed Manoj Gamino MD Department of Orthopaedics Orthopaedics [address] [facility] [address] Dept: [phone] Dept November 27, 2024 CHIEF COMPLAINT: Established Patient and Follow Up of the Left Hand NAV Tello is a 69-year-old female presenting for follow-up [...] SURGICAL HIS (more content not included)... Normal [facility] CRPon 11-27-2024 C-REACTIVE PROT 3.68 mg/L High 0.0-3.0 [facility] Comment on above: Performed By: #### L 501.9520, L3100.3425, L101.9900, L3410.2350, L3410.1000, L501.6710, L503.0106, L504.2610, L3300.1800, L3410.0900 ####[facility] [address] [place], [address] CRP [Mass/Vol]Ordered By: Ra glen Lozoya on 11-27-2024 C-Reactive Protein Extended Range 3.68 mg/L High 0.0-3.0 [facility] Deamidated gliadin IgA antib elton assayOrdered By: Darrin Lozoya on 11-27-2024 Anti-Gliadin IgA Antibody 8 units 0-19 [facility] Comment on above: Negative 0 - 19 Weak Positive 20 - 30 Moderate to Strong Positive >30 Deamidated gliadin IgG antib elton assayOrdered By: Darrin Lozoya on 11-27-2024 Anti-Gliadin IgG Antibody 5 units 0-19 [facility] Comment on above: Negative 0 - 19 Weak Positive 20 - 30 Moderate to Strong Positive >30 Endomysial IgA antibody assa yOrdered By: Darrin Lozoya on 11-27-2024 Endomysial IgA Antibody Negative Negative [facility] Erythrocyte Sed Rateon 11-27 SED RATE 4 mm/hr Normal 0-30 [facility] Comment on above: Performed By: #### L 501.9520, L3100.3425, L101.9900, L3410.2350, L3410.1000, L501.6710, L503.0106, L504.2610, L3300.1800, L3410.0900 ####[facility] [address] [place], [address] Erythrocyte sedimentation ra teOrdered By: Darrin Lozoya on 11-27-2024 ESR (Bld) [Velocity] 4 mm/h 0-30 [facility] Gamma globulin Elph [Mass/Vo l]Ordered By: Darrin Lozoya on 11-27-2024 Gamma Globulins (DI) 1.2 g/dL 0.4-1.8 [facility] Gastrin [Mass/Vol]Ordered By : Darrin Lozoya on 11-27-2024 Gastrin 665 pg/mL High 0-115 [facility] Comment on above: Siemens Immulite 200 0 Immunochemiluminometric assay (ICMA)Values obtained with different assay methods or kits cannotbe used interchangeably. Results cannot be interpreted asabsolute evidence of the presence or absence of malignantdisease. Gastrin, serumOrdered By: Ra glen Lozoya on 11-27-2024 Gastrin [Mass/Vol] 665 pg/mL High 0-115 [facility] Comment on above: Siemens Immulite 200 0 Immunochemiluminometric assay (ICMA)Values obtained with different assay methods or kits cannotbe used interchangeably. Results cannot be interpreted asabsolute evidence of the presence or absence of malignantdisease. Gastroenterology Visit Repor ton 11-27-2024 Gastroenterology Visit Report [facility] Gastroenterology [address] [place] [address] OFFICE VISIT Date of Service: 11/27/24 MR#: [id number] Acct: [id number] Name: ELISHA GODFREY Rep #: [id number] : 1955 Provider: Darrin Lozoya DO Age/Sex: 69/F Location: [facility] Status: Signed Intake Vital Signs 06/02/16 07:59 [...] any questions or concerns at this time. [facility] Medical History (Updated 11/27/24 @ 09:42 by [...] to the office today for initial consult. *I established 4.7. pt reports that she is here to [...] easy bleedi (more content not included)... Normal [facility] IgA [Mass/Vol]Ordered By: Ra glen Lozoya on 11-27-2024 Immunoglobulin A 91 mg/dL 87-352 [facility] IgG [Mass/Vol]Ordered By: Ra glen Lozoya on 11-27-2024 Immunoglobulin G 1053 mg/dL 586-1602 [facility] Immunoglobulin M measurement Ordered By: Darrin Lozoya on 11-27-2024 Immunoglobulin M 122 mg/dL 26-217 [facility] Interpretation IEP [Interp]O rdered By: Darrin Lozoya on 11-27-2024 Immunofixation Screen Comment . [facility] Comment on above: No monoclonality det ected. Interpretation of serum or p lasma protein pattern by immunofixation (narrative resultOrdered By: Darrin Lozoya on 11-27-2024 Protein Fractions Immunofixation Jordi [Interp] Not Observed g/dL Not Observed [facility] Intrinsic factor abOrdered B y: Darrin Lozoya on 11-27-2024 Intrinsic Factor Antibody 1.0 AU/mL 0.0-1.1 [facility] Comment on above: Performed at: CB - [facility] [address] [place], [place] [id number] Director: Eliazar Posadas PhD, Phone: [phone] at: - [facility] [address] [place], [place] [id number] Director: Praveen Khan MD, Phone: [phone] LDHon 11-27-2024 LDH 264 U/L High 84-246 [facility] Comment on above: Order Comment: 1 Result Comment: Hemo lysis present, Results??could be affected. ?? Performed By: #### L 501.9520, L3100.3425, L101.9900, L3410.2350, L3410.1000, L501.6710, L503.0106, L504.2610, L3300.1800, L3410.0900 ####[facility] [address] [place], [place], [id number] Lactate dehydrogenase (LDH) measurementOrdered By: Darrin Lozoya on 11-27-2024 LDH [Catalytic activity/Vol] 264 U/L High 84-246 [facility] Comment on above: Hemolysis present, R esults could be affected. No Panel InformationOrdered By: Darrin Lozoya on 11-27-2024 Addendum Document Comment . [facility] Comment on above: Protein electrophore sis scan will follow via computer,mail, or turret punch press operator delivery. Tissue Transglutaminase IgG Ab 4 U/mL 0-5 [facility] Comment on above: Negative 0 - 5 Weak Positive 6 - 9 Positive >9 Parietal cell Ab Qn (S)Order ed By: Darrin Lozoya on 11-27-2024 Anti-Parietal Cell Antibody 1.4 Units 0.0-20.0 [facility] Comment on above: Negative 0.0 - 20.0 Equivocal 20.1 - 24.9 Positive >24.9Parietal Cell Antibodies are found in 90% of patientswith pernicious anemia and 30% of first degreerelatives with pernicious anemia. Protein Fractions Immunofixa tion Jordi [Interp]Ordered By: Darrin Lozoya on 11-27-2024 M-Raffaele (DI) Not Observed g/dL Not Observed [facility] Serum albumin/globulin ratio Ordered By: Darrin Lozoya on 11-27-2024 Albumin/Globulin (DI) 1.4 0.7-1.7 [facility] Serum globulin measurement ( mass/volume)Ordered By: Darrin Lozoya on 11-27-2024 Globulin (S) [Mass/Vol] 3.0 g/dL 2.2-3.9 [facility] Serum or plasma C reactive p rotein measurement (mass/volume)Ordered By: Darrin Lozoya on 11-27-2024 CRP [Mass/Vol] 3.68 mg/L High 0.0-3.0 [facility] Serum or plasma IgA measurem ent (mass/volume)Ordered By: Darrin Lozoya on 11-27-2024 IgA [Mass/Vol] 91 mg/dL 87-352 [facility] Serum or plasma IgG measurem ent (mass/volume)Ordered By: Darrin Lozoya on 11-27-2024 IgG [Mass/Vol] 1053 mg/dL 586-1602 [facility] Serum or plasma alpha 1 glob ulin measurement by electrophoresis (mass/volume)Ordered By: Darrin Lozoya on 11-27-2024 Alpha 1 globulin Elph [Mass/Vol] 0.3 g/dL 0.0-0.4 [facility] Alpha 1 globulin Elph [Mass/Vol] 0.7 g/dL 0.4-1.0 [facility] Serum or plasma beta globuli n measurement by electrophoresis (mass/volume)Ordered By: Darrin Lozoya on 11-27-2024 Beta globulin Elph [Mass/Vol] 0.9 g/dL 0.7-1.3 [facility] Serum or plasma gamma globul in measurement by electrophoresis (mass/volume)Ordered By: Darrin Lozoya on 11-27-2024 Gamma globulin Elph [Mass/Vol] 1.2 g/dL 0.4-1.8 [facility] Serum or plasma immunoelectr ophoresis interpretation (nominal result)Ordered By: Darrin Lozoya on 11-27-2024 Interpretation IEP [Interp] Comment . [facility] Comment on above: No monoclonality det ected. Serum or plasma protein shira urement (mass/volume)Ordered By: Darrin Lozoya on 11-27-2024 Protein [Mass/Vol] 7.0 g/dL 6.0-8.5 [facility] Serum parietal cell antibody assay (units/volume)Ordered By: Darrin Lozoya on 11-27-2024 Parietal cell Ab Qn (S) 1.4 Units 0.0-20.0 [facility] Comment on above: Negative 0.0 - 20.0 Equivocal 20.1 - 24.9 Positive >24.9Parietal Cell Antibodies are found in 90% of patientswith pernicious anemia and 30% of first degreerelatives with pernicious anemia. Serum tissue transglutaminas e (tTG) IgA antibody assay (units/volume)Ordered By: Darrin Lozoya on 11-27-2024 tTG IgA Qn (S) 3 U/mL 0-3 [facility] Comment on above: Negative 0 - 3 Weak Positive 4 - 10 Positive >10 Tissue Transglutaminase (tTG) has been identified as the endomysial antigen. Studies have demonstr- ated that endomysial IgA antibodies have over 99% specificity for gluten sensitive enteropathy. TSH DL <= 0.005 mIU/L QnOrde red By: Darrin Lozoya on 11-27-2024 Thyroid Stimulating Hormone (TSH) 2.340 uIU/mL 0.300-4.20 0 [facility] TSH Qn 2.340 uIU/mL 0.300-4.20 0 [facility] Thyroid Stim Hormone (TSH)on 11-27-2024 TSH 2.340 uIU/mL Normal 0.300-4.20 0 [facility] Comment on above: Performed By: #### L 501.9520, L3100.3425, L101.9900, L3410.2350, L3410.1000, L501.6710, L503.0106, L504.2610, L3300.1800, L3410.0900 ####[facility] [address] [place], [place], [id number] Vitamin B12on 11-27-2024 Cobalamin (Vitamin B12) [Mass/Vol] 747 pg/mL Normal 180-914 [facility] Comment on above: Performed By: #### L 501.9520, L3100.3425, L101.9900, L3410.2350, L3410.1000, L501.6710, L503.0106, L504.2610, L3300.1800, L3410.0900 ####[facility] [address] [place], [place], [address] Vitamin B12 ser/plasOrdered By: Darrin Friend on 11-27-2024 Cobalamin (Vitamin B12) [Mass/Vol] 747 pg/mL 180-914 [facility] tTG IgA Qn (S)Ordered By: Ra carroll Friend on 11-27-2024 Tissue Transglutaminase IgA Ab 3 U/mL 0-3 [facility] Comment on above: Negative 0 - 3 Weak Positive 4 - 10 Positive >10 Tissue Transglutaminase (tTG) has been identified as the endomysial antigen. Studies have demonstr- ated that endomysial IgA antibodies have over 99% specificity for gluten sensitive enteropathy. CNOVon 11-23-2024 CNOV Office Visit (PODIWS ) ELISHA GODFREY ([id number]) 1955 F Date Time Provider Department 11/23/24 [...] (H) 4.3 - 5.6 % Final Comment: [place] Diabetes [employer] guidelines indicate that patients with [...] ALLERGY) 32 mcg/actuation nasal spray Use 1 [place] in each nostril as needed. ramipril (ALTACE) [...] her fe (more content not included)... Normal [facility] CNPNon 11-15-2024 [facility] Telephone (RADMN) ELISHA GODFREY ([id number]) 1955 F Date Time Provider Department 11/15/24 ISIDRA ANDRADE RADNJ During your visit today, we recorded the [...] ALLERGY) 32 mcg/actuation nasal spray Use 1 [place] in each nostril as needed. 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 [N*07/10/2013 Cystocele [[id number]] 07/17/2013 Female stress incontinence [N39.3] 07/17/2013 Mixed [...] Status:Closed by MATILDA WRIGHT on 11/15/24 Normal [facility] NCS and/or EMG Patienton NCS and/or EMG Patient [facility] Pulmonary Services/Neurology [address] [place] [address] MR#: [id number] Acct: [id number] Name: ELISHA GODFREY Rep #: [id number] : 1955 69 From: Chas Bello MD [...] Multi Select Codes Neurology Neurology Interp Codes: 46137-92 Musc test done w/n test comp (interp) (1) and 34017-16 Nrv cndj test 7-8 studies (interp) 11/14/24 1346 Date Chas Bello MD CC: Dr. Chas Bello MD; Dr. Manoj Gamino MD; Dr. Kade Fry MD Date Dictated: 11/14/24 1131 Date Transcribed: 11/14/24 1131 [employer] H[employer] Developer: Signed Normal [facility] DBT Breast - bilateral scree alfredo 11-13-2024 IMPRESSION: The asymmetry in the inferior [...] Sari Sol M.D. Electronically signed on: 11/13/2024 [employer] H[employer] Developer: RUI Evansrimoe Date/Time: Nov 13 2024 10:08A Dictated by: SARI SOL MD This examination was interpreted and the report reviewed and electronically signed by: SARI SOL MD on Nov 13 2024 2:32PM [facility] DIVISION OF RADIOLOGY * * *Final Report* * * DATE OF EXAM: Nov 13 2024 10:31AM [facility] 0582 - [facility] SCREENING W IRISH / PROCEDURE REASON: Encounter for screening mammogram for breast cancer * * * * Physician Interpretation * * * * RESULT: [place] [address] #[id number] - LEIGH SCREENING W IRISH HISTORY: 69 [...] the left breast. DIVISION OF RADIOLOGY Provider, [facility] - 11/13/2024 * * *Final Report* * * DATE OF EXAM: Nov 13 2024 10:31AM W 0582 - LEIGH SCREENING W IRISH / PROCEDURE REASON: Encounter for screening mammogram for breast cancer * * * * Physician Interpretation * * * * RESULT: [facility] [address] [id number] #[id number] - [facility] SCREENING W IRISH HISTORY: 69 year-old patient [...] Sari Sol M.D. Electronically signed on: 11/13/2024 [employer] H[employer] Developer: RUI Transcrimoe Date/Time: Nov 13 2024 10:08A Dictated by: SARI SOL MD This examination was interpreted and the report reviewed and electronically signed by: SARI SOL MD on Nov 13 2024 2:32PM EST [facility] Radiology Study observation (narrative) Eladia oscar [facility] DBT Breast - bilateral scree ningOrdered By: [facility] Provider on 11-13-2024 [facility] LEIGH SCREENING W TOMOon 11-13 LEIGH SCREENING W IRISH * * *Final Report* * * DATE OF EXAM: Nov 13 2024 10:31AM [facility] 0582 - LEIGH SCREENING W IRISH / PROCEDURE REASON: Encounter for screening mammogram for breast cancer * * * * Physician Interpretation * * * * RESULT: [place] [address] [id number] #[id number] - LEIGH SCREENING W IRISH HISTORY: 69 [...] Sari Sol M.D. Electronically signed on: 11/13/2024 [employer] H[employer] Developer: RUI Transcribe Date/Time: Nov 13 2024 10:08A Dictated by: SARI SOL MD This examination was interpreted and the report reviewed and electronically signed by: SARI SOL MD on Nov 13 2024 2:32PM EST [id number] Normal [facility] CNOVon 10-31-2024 CNOV Office Visit (PODIWS ) ELISHA GODFREY ([id number]) 1955 F Date Time Provider Department 10/31/24 10:45 AM CHETAN BHAGAT PODIWS During your visit today, we recorded the following information about you: Maureen De La Torre LPN 10/31/2024 12:51 PM Signed AMB ROOMING INTAKE FLOWSHEET DATA Patient presents with: Left Foot - Established Patient, Procedure: Great toe and 2nd toe Right Foot - Established Patient, Procedure: Great toe LISA Boyd Amanda, FÉLIX 10/31/2024 11:02 AM Signed Post-Op Nail [...] as well if you have any questions/concerns [phone], ask for Podiatry Nurse Chetan Bhagat 10/31/2024 [...] (H) 4.3 - 5.6 % Final Comment: [place] Diabetes [employer] guidelines indicate that patients with [...] ALLERGY) 32 mcg/actuation nasal spray Use 1 [place] in each nostril as needed. ramipril (ALTACE) [...] daily. aspirin(ECO (more content not included)... Normal [facility] PVR ANK PRESS JOSE VAS LABon 10-17-2024 PVR ANK PRESS JOSE VAS LAB Non-Invasive Vascular Laboratory [facility] Lower Extremity Arterial Physiology Study Bilateral/Complete Date [...] Normal at rest. Technologist: Sarah Ferrera RVT, RDAK Ordering physician: CHETAN BHAGAT Interpreting physician: MOOSE Daugherty DO Final CC [facility] : [id number] See Link below for Image Normal [facility] Additional Injections: L lisset joiner A1on 10-16-2024 [...] these instructions. Informed Consent Consent Obtained: Verbal [place] Protocol A moment to CARE was completed. [...] Plan of Care Visit completed when applicable [facility] CNOVon 10-16-2024 CNOV Office Visit (PODIWS ) ELISHA GODFREY ([id number]) 1955 F Date Time Provider Department 10/16/24 10:45 AM CHETAN BHAGAT PODIWS During your visit today, we recorded the following information about you: Sayra Clifford RN 10/16/2024 11:28 AM Signed Patient presents [...] ALLERGY) 32 mcg/actuation nasal spray Use 1 [place] in each nostril as needed. ramipril (ALTACE) [...] Prevacid [Lansop (more content not included)... Normal [facility] CNOV Office Visit (ORTHWS ) BEKAHELISHA ([id number]) 1955 F Date Time Provider Department 10/16/24 9:15 AM MANOJ GAMINO During your visit today, we recorded the following information about you: Manoj Gamino MD 10/16/2024 12:26 PM Signed Manoj Gamino MD Department of [facility]opaedics [facility] [address] [facility] [address] Dept: [phone] Dept October 16, 2024 CHIEF COMPLAINT: New and Numbness of the Left Hand and Trigger Finger of the Left Thumb (Referred by Dr. Fry) HPI Patient here for evaluation left hand numbness and tingling. Her left thumb has also been locking. Patient states she has had the numbness and tingling for about 3 months. 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 IMAGING: IMPRESSION: No acute osseous abnormality [employer] H[employer] Developer: [facility] Transcribe Date/Time: Aug 24 2023 10:23A Dictated [...] these instructions. Informed Consent Consent Obtained: Verbal [place] Protocol A moment to CARE was completed. [...] 09/25/2021 Art (more content not included)... Normal [facility] Absolute lymphocyte countOrd ered By: Dina Ferrer on 10-03-2024 Lymphocytes Auto (Unsp spec) [#/Vol] 0.98 10*3/uL 0.83-4.51 [facility] Absolute neutrophil countOrd ered By: [facility] Nabil on 10-03-2024 Neutrophils (Bld) [#/Vol] 2.4 10*3/uL 2.0-7.7 [facility] Albumin to globulin ratioOrd ered By: Dina Nabil on 10-03-2024 Albumin/Globulin [Mass ratio] 1.2 {ratio} 0.9-2.4 [facility] Automated lymphocyte count a s percentage of total leukocytesOrdered By: Dina Ferrer on 10-03-2024 Lymphocytes/100 WBC Auto (Unsp spec) 26.1 % 19-41 [facility] Basophil percentageOrdered B y: Dina Ferrer on 10-03-2024 Basophils/100 WBC (Bld) 0.8 % 0-1 [facility] Bilirubin, totalOrdered By: Dina Ferrer on 10-03-2024 Bilirubin [Mass/Vol] 0.80 mg/dL 0.20-1.00 [facility] Comment on above: For patients on eltr ombopag therapy, use of Dimension [place] TBIL is not recommended. Blood urea nitrogen (BUN)/cr eatinine ratioOrdered By: Dina Ferrer on 10-03-2024 Urea nitrogen/Creatinine [Mass ratio] 23.5 mg/mg High 10-20 [facility] CBC W/Diff, Automatedon - Absolute Lymph 0.98 X10 3/uL Normal 0.83-4.51 [facility] Comment on above: Performed By: #### L 100.0100, L500.4050 #### [facility] Laboratory [address] [place], [address] Absolute Neut 2.4 X10 3/uL Normal 2.0-7.7 [facility] Comment on above: Performed By: #### L 100.0100, L500.4050 #### [facility] [address] [place], [address] Basophils/100 WBC (Bld) 0.8 % Normal 0-1 [facility] Comment on above: Performed By: #### L 100.0100, L500.4050 #### [facility] [address] [place], [address] Eosinophils/100 WBC (Bld) 2.7 % Normal 0-5 [facility] Comment on above: Performed By: #### L 100.0100, L500.4050 #### [facility] [address] [place], [address] Erythrocyte distribution width (RBC) [Ratio] 13.1 % Normal 11.6-14.6 [facility] Comment on above: Performed By: #### L 100.0100, L500.4050 #### [facility] [address] [place], [address] Hematocrit (Bld) [Volume fraction] 40.5 % Normal 37-47 [facility] Comment on above: Performed By: #### L 100.0100, L500.4050 #### [facility] [address] [place], [address] Hemoglobin (Bld) [Mass/Vol] 13.7 g/dL Normal 12.0-15.0 [facility] Comment on above: Performed By: #### L 100.0100, L500.4050 #### [facility] [address] [place], [address] IG% 0.300 Normal 0.0-0.9 [facility] Comment on above: Result Comment: IG% - Immature Granulocytes (promyelocytes, myelocytes and metamyelocytes) > 1% indicates that a LEFT SHIFT is Present. Performed By: #### L 100.0100, L500.4050 #### [facility] [address] [place], [address] Lymphocytes/100 WBC (Bld) 26.1 % Normal 19-41 [facility] Comment on above: Performed By: #### L 100.0100, L500.4050 #### [facility] [address] [place], [address] MCH (RBC) [Entitic mass] 35.1 pg High 27.0-32.0 [facility] Comment on above: Performed By: #### L 100.0100, L500.4050 #### [facility] [address] [place], [address] MCHC (RBC) [Mass/Vol] 33.8 g/dL Normal 32-36 [facility] Comment on above: Performed By: #### L 100.0100, L500.4050 #### [facility] [address] [place], [address] MCV (RBC) [Entitic vol] 103.8 fL High 81-99 [facility] Comment on above: Performed By: #### L 100.0100, L500.4050 #### [facility] [address] [place], [address] Monocytes/100 WBC (Bld) 6.6 % Normal 0-10 [facility] Comment on above: Performed By: #### L 100.0100, L500.4050 #### [facility] [address] [place], [address] Neutrophils/100 WBC (Bld) 63.5 % Normal 47-70 [facility] Comment on above: Performed By: #### L 100.0100, L500.4050 #### [facility] [address] [place], [address] Nucleated RBC (Bld) [#/Vol] 0 10*3/uL Normal 0-5 [facility] Comment on above: Performed By: #### L 100.0100, L500.4050 #### [facility] [address] [place], [address] Platelet mean volume (Bld) [Entitic vol] 10.1 fL Normal 6.2-12.0 [facility] Comment on above: Performed By: #### L 100.0100, L500.4050 #### [facility] [address] [place], [address] Platelets (Bld) [#/Vol] 189 10*3/uL Normal 150-450 [facility] Comment on above: Performed By: #### L 100.0100, L500.4050 #### [facility] [address] [place], [address] RBC (Bld) [#/Vol] 3.90 10*6/uL Low 4.2-5.4 [facility] Comment on above: Performed By: #### L 100.0100, L500.4050 #### [facility] [address] [place], [address] RDW SD 49.7 fl High 35.1-43.9 [facility] Comment on above: Performed By: #### L 100.0100, L500.4050 #### [facility] [address] [place], [address] WBC (Bld) [#/Vol] 3.8 10*3/uL Low 4.4-11.0 [facility] Comment on above: Performed By: #### L 100.0100, L500.4050 #### [facility] [address] [place], [address] Carbon dioxide measurementOr dered By: Dina Ferrer on 10-03-2024 CO2 [Moles/Vol] 29.0 mmol/L 21.0-32.0 [facility] Chloride measurementOrdered By: Dina Ferrer on 10-03-2024 Chloride [Moles/Vol] 104 mmol/L 98-107 [facility] Comprehensive Metabolic Prof ilon 10-03-2024 Albumin [Mass/Vol] 3.9 g/dL Normal 3.2-5.0 [facility] Comment on above: Performed By: #### L 100.0100, L500.4050 #### [facility] [address] [place], [address] Albumin/Globulin [Mass ratio] 1.2 {ratio} Normal 0.9-2.4 [facility] Comment on above: Performed By: #### L 100.0100, L500.4050 #### [facility] [address] [place], [address] ALK P 84 U/L Normal 45-117 [facility] Comment on above: Performed By: #### L 100.0100, L500.4050 #### [facility] [address] [place], [address] ALT [Catalytic activity/Vol] 16 U/L Normal 13-56 [facility] Comment on above: Performed By: #### L 100.0100, L500.4050 #### [facility] [address] [place], [address] AST [Catalytic activity/Vol] 20 U/L Normal 15-37 [facility] Comment on above: Performed By: #### L 100.0100, L500.4050 #### [facility] [address] [place], [address] Bilirubin [Mass/Vol] 0.80 mg/dL Normal 0.20-1.00 [facility] Comment on above: Result Comment: For patients on eltrombopag therapy, use of Dimension [place] TBIL is not recommended. Performed By: #### L 100.0100, L500.4050 #### [facility] [address] [place], [address] BUN/CRE 23.5 RATIO High 10-20 [facility] Comment on above: Performed By: #### L 100.0100, L500.4050 #### [facility] [address] [place], [address] CA,Total 9.3 mg/dL Normal 8.5-10.1 [facility] Comment on above: Performed By: #### L 100.0100, L500.4050 #### [facility] [address] [place], [address] Chloride [Moles/Vol] 104 mmol/L Normal 98-107 [facility] Comment on above: Performed By: #### L 100.0100, L500.4050 #### [facility] [address] [place], [address] CO2 [Moles/Vol] 29.0 mmol/L Normal 21.0-32.0 [facility] Comment on above: Performed By: #### L 100.0100, L500.4050 #### [facility] [address] [place], [address] Creatinine [Mass/Vol] 0.81 mg/dL Normal 0.55-1.02 [facility] Comment on above: Result Comment: The validity of the calculated GFR GFRAA in patients over 70 years has not been determined. Clinical correlation is essential. Performed By: #### L 100.0100, L500.4050 #### [facility] [address] [place], [address] EST GFR - AA 90 mL/min Normal >60 [facility] Comment on above: Result Comment: Afri can Filipino GFR Calc Performed By: #### L 100.0100, L500.4050 #### [facility] [address] [place], [address] GAP 7 Normal 5-15 [facility] Comment on above: Performed By: #### L 100.0100, L500.4050 #### [facility] [address] [place], [address] GFR/1.73 sq M.predicted among non-blacks MDRD (S/P/Bld) [Vol rate/Area] 74 mL/min/{1.73_m2} Normal >60 [facility] Comment on above: Result Comment: Non- GFR Calc Performed By: #### L 100.0100, L500.4050 #### [facility] [address] [place], [address] Globulin (S) [Mass/Vol] 3.3 g/dL Normal 2.2-4.2 [facility] Comment on above: Performed By: #### L 100.0100, L500.4050 #### [facility] [address] [place], [address] Glucose [Mass/Vol] 133 mg/dL High 74-106 [facility] Comment on above: Result Comment: Fast ing Glucose result greater than or equal to 126 mg/dL suggests DIABETES MELLITUS per A.D.A. criteria. Performed By: #### L 100.0100, L500.4050 #### [facility] [address] [place], [address] Potassium [Moles/Vol] 3.5 mmol/L Normal 3.5-5.1 [facility] Comment on above: Performed By: #### L 100.0100, L500.4050 #### [facility] [address] [place], [address] Sodium [Moles/Vol] 140 mmol/L Normal 136-145 [facility] Comment on above: Performed By: #### L 100.0100, L500.4050 #### [facility] [address] [place], [address] T PROT 7.2 g/dL Normal 6.4-8.2 [facility] Comment on above: Performed By: #### L 100.0100, L500.4050 #### [facility] [address] [place], [address] Urea nitrogen [Mass/Vol] 19 mg/dL High 7-18 [facility] Comment on above: Performed By: #### L 100.0100, L500.4050 #### [facility] [address] [place], [address] Eosinophil percentageOrdered By: Dina Ferrer on 10-03-2024 Eosinophils/100 WBC (Bld) 2.7 % 0-5 [facility] Erythrocyte distribution wid th ratioOrdered By: Dina Ferrer on 10-03-2024 Erythrocyte distribution width (RBC) [Ratio] 13.1 % 11.6-14.6 [facility] Erythrocyte distribution wid th standard deviationOrdered By: Dina Ferrer on 10-03-2024 Erythrocyte distribution width (RBC) [Entitic vol] 49.7 fL High 35.1-43.9 [facility] Erythrocyte distribution width (RBC) [Ratio] 49.7 fl High 35.1-43.9 [facility] Estimated glomerular filtrat ion rate (GFR) AmericanOrdered By: Dina Ferrer on 10-03-2024 Estimated GFR (MDRD) Amer 90 mL/min >60 [facility] Comment on above: GFR Calc Glomerular filtration rate ( GFR) estimationOrdered By: Dina Ferrer on 10-03-2024 Estimated GFR (MDRD) Non-Af Amer 74 mL/min >60 [facility] Comment on above: Non- GFR Calc GFR/1.73 sq M.predicted among non-blacks MDRD (S/P/Bld) [Vol rate/Area] 74 mL/min/{1.73_m2} >60 [facility] Comment on above: Non- GFR Calc Glucose measurementOrdered B y: Dina Ferrer on 10-03-2024 Glucose [Mass/Vol] 133 mg/dL High 74-106 [facility] Comment on above: Fasting Glucose resu lt greater than or equal to 126 mg/dL suggests DIABETES MELLITUS per A.D.A. criteria. Hematocrit Auto (Bld) [Volum e fraction]Ordered By: Dina Ferrer on 10-03-2024 Hematocrit (Bld) [Volume fraction] 40.5 % 37-47 [facility] Hemoglobin measurementOrdere d By: Dina Ferrer on 10-03-2024 Hemoglobin (Bld) [Mass/Vol] 13.7 g/dL 12.0-15.0 [facility] Immature granulocytes/100 WB C Auto (Bld)Ordered By: Dina Ferrer on 10-03-2024 Immature granulocytes/100 WBC (Bld) 0.300 % 0.0-0.9 [facility] Comment on above: IG% - Immature Granu locytes (promyelocytes, myelocytes and metamyelocytes) > 1% indicates that a LEFT SHIFT is Present. Laboratory - Chemistry and C hemistry - challengeOrdered By: Dina Ferrer on 10-03-2024 AST [Catalytic activity/Vol] 20 U/L 15-37 [facility] Lymphocytes Auto (Unsp spec) [#/Vol]Ordered By: Dina Ferrer on 10-03-2024 Lymphocytes (Bld) [#/Vol] 0.98 10*3/uL 0.83-4.51 [facility] [facility] Lymphocytes/100 WBC Auto (Un sp spec)Ordered By: Dina Ferrer on 10-03-2024 Lymphocytes/100 WBC (Bld) 26.1 % 19-41 [facility] MCV (mean corpuscular volume ) determinationOrdered By: Dina Ferrer on 10-03-2024 MCV (RBC) [Entitic vol] 103.8 fL High 81-99 [facility] Mean corpuscular hemoglobin (MCH) determinationOrdered By: Dina Ferrer on 10-03-2024 MCH (RBC) [Entitic mass] 35.1 pg High 27.0-32.0 [facility] Mean corpuscular hemoglobin concentration (MCHC) determinationOrdered By: Dina Ferrer on 10-03-2024 MCHC (RBC) [Mass/Vol] 33.8 g/dL 32-36 [facility] Mean platelet volume determi nationOrdered By: Dina Ferrer on 10-03-2024 Platelet mean volume (Bld) [Entitic vol] 10.1 fL 6.2-12.0 [facility] Monocyte percentageOrdered B y: Dina Ferrer on 10-03-2024 Monocytes/100 WBC (Bld) 6.6 % 0-10 [facility] Neutrophil percentageOrdered By: Dina Ferrer on 10-03-2024 Neutrophils/100 WBC (Bld) 63.5 % 47-70 [facility] Nucleated red blood cell per centageOrdered By: Dina Ferrer on 10-03-2024 Nucleated RBC/100 WBC (Bld) [Ratio] 0 % 0-5 [facility] Platelet countOrdered By: Ba Ferrer on 10-03-2024 Platelets (Bld) [#/Vol] 189 10*3/uL 150-450 [facility] Potassium measurementOrdered By: Dina Ferrer on 10-03-2024 Potassium [Moles/Vol] 3.5 mmol/L 3.5-5.1 [facility] RBC Auto (Bld) [#/Vol]Ordere d By: Dina Ferrer on 10-03-2024 RBC (Bld) [#/Vol] 3.90 10*6/uL Low 4.2-5.4 [facility] Serum anion gap measurementO rdered By: Dina Ferrer on 10-03-2024 Anion gap [Moles/Vol] 7 mmol/L 5-15 [facility] Serum globulin measurementOr dered By: Dina Ferrer on 10-03-2024 Globulin (S) [Mass/Vol] 3.3 g/dL 2.2-4.2 [facility] Serum or plasma alanine abraham otransferase (ALT) measurementOrdered By: Dina Ferrer on 10-03-2024 ALT [Catalytic activity/Vol] 16 U/L 13-56 [facility] Serum or plasma albumin shira urement (mass/volume)Ordered By: Dina Ferrer on 10-03-2024 Albumin [Mass/Vol] 3.9 g/dL 3.2-5.0 [facility] Serum or plasma alkaline ramone sphatase measurementOrdered By: Dina Ferrer on 10-03-2024 ALP [Catalytic activity/Vol] 84 U/L 45-117 [facility] Serum or plasma calcium shira urement (mass/volume)Ordered By: Dina Ferrer on 10-03-2024 Calcium [Mass/Vol] 9.3 mg/dL 8.5-10.1 [facility] Serum or plasma creatinine m easurement (mass/volume)Ordered By: Dina Ferrer on 10-03-2024 Creatinine [Mass/Vol] 0.81 mg/dL 0.55-1.02 [facility] Comment on above: The validity of the calculated GFR & GFRAA in patients over 70 years has not been determined. Clinical correlation is essential. Serum or plasma urea nitroge n measurement (mass/volume)Ordered By: Dina Ferrer on 10-03-2024 Urea nitrogen [Mass/Vol] 19 mg/dL High 7-18 [facility] Sodium levelOrdered By: Shaila Ferrer on 10-03-2024 Sodium [Moles/Vol] 140 mmol/L 136-145 [facility] Total proteinOrdered By: Issac Ferrer on 10-03-2024 Protein [Mass/Vol] 7.2 g/dL 6.4-8.2 [facility] White blood cell (WBC) count Ordered By: Dina Ferrer on 10-03-2024 WBC (Bld) [#/Vol] 3.8 10*3/uL Low 4.4-11.0 [facility] CNOVon 09-21-2024 CNOV Office Visit (FAMPWS ) ELISHA GODFREY ([id number]) 1955 F Date Time Provider Department 09/21/24 8:40 AM [facility] FAMPWS During your visit today, we recorded the [...] PCP - General (Family Medicine) Addie Birmingham APRN.CNP as [employer] (Family Medicine) Ena Aguiar PA-C as [employer] (Family Medicine) Dr. Crockett: Rheum Medical/Family history [...] Pulse (!) 58 Ht 156.2 cm (5' 1.5") Wt 88.4 kg (194 lb 12.8 oz) [...] repeat in 3 years, with [facility] at [facility] COLONOSCOPY FLX DX W/COLLJ SPEC WHEN PFRMD [...] INCONTINENCE 09/20/2012 (more content not included)... Normal [facility] CBC W Auto Differential pane l (Bld)on 09-14-2024 Basophils (Bld) [#/Vol] 0.04 10*3/uL Normal <0.11 [facility] Comment on above: Order Comment: Speci men Type: BLOOD SPECIMENOrdering Facility: [facility] Address: [address] [place] [address] Performed By: #### 5 7021-8 ####[facility] LABCLIA [id number] [place] [address] [place] Basophils/100 WBC (Bld) 1.0 % Normal [facility] Comment on above: Order Comment: Speci men Type: BLOOD SPECIMENOrdering Facility: [facility] Address: [address] [place] [address] Performed By: #### 5 7021-8 ####[facility] LABCLIA [id number] [place] [address] [place] Differential cell count method Nom (Bld) Auto Normal [facility] Comment on above: Order Comment: Speci men Type: BLOOD SPECIMENOrdering Facility: [facility] Address: [address] [place] [address] Performed By: #### 5 7021-8 ####[facility] LABCLIA [id number] [place] [address] [place] Eosinophils (Bld) [#/Vol] 0.13 10*3/uL Normal <0.46 [facility] Comment on above: Order Comment: Speci men Type: BLOOD SPECIMENOrdering Facility: [facility] Address: [address] [place] [address] Performed By: #### 5 7021-8 ####[facility] LABCLIA [id number] [place] [address] [place] Eosinophils/100 WBC (Bld) 3.2 % Normal [facility] Comment on above: Order Comment: Speci men Type: BLOOD SPECIMENOrdering Facility: [facility] Address: [address] [place] [address] Performed By: #### 5 7021-8 ####[facility] LABIA [id number] [place] [address] [place] Erythrocyte distribution width (RBC) [Ratio] 13.1 % Normal 11.5-15.0 [facility] Comment on above: Order Comment: Speci men Type: BLOOD SPECIMENOrdering Facility: [facility] Address: [address] [place] [address] Performed By: #### 5 7021-8 ####[facility] LABCLIA [id number] [place] [address] [place] Hematocrit (Bld) [Volume fraction] 41.3 % Normal 36.0-46.0 [facility] Comment on above: Order Comment: Speci men Type: BLOOD SPECIMENOrdering Facility: [facility] Address: [address] [place] [address] Performed By: #### 5 7021-8 ####[facility] LABCLIA [id number] [place] [address] [place] Hemoglobin (Bld) [Mass/Vol] 13.7 g/dL Normal 11.5-15.5 [facility] Comment on above: Order Comment: Speci men Type: BLOOD SPECIMENOrdering Facility: [facility] Address: [address] [place] [address] Performed By: #### 5 7021-8 ####[facility] LABCLIA [id number] [place] [address] [place] Immature granulocytes (Bld) [#/Vol] 10*3/uL Normal <0.10 [facility] Comment on above: Order Comment: Speci men Type: BLOOD SPECIMENOrdering Facility: [facility] Address: [address] [place] [address] Performed By: #### 5 7021-8 ####[facility] LABCLIA [id number] [place] [address] [place] Immature granulocytes/100 WBC (Bld) 0.2 % Normal [facility] Comment on above: Order Comment: Speci men Type: BLOOD SPECIMENOrdering Facility: [facility] Address: [address] [place] [address] Performed By: #### 5 7021-8 ####[facility] LABCLIA [id number] [place] [address] [place] Lymphocytes (Bld) [#/Vol] 1.12 10*3/uL Normal 1.00-4.00 [facility] Comment on above: Order Comment: Speci men Type: BLOOD SPECIMENOrdering Facility: [facility] Address: [address] [place] [address] Performed By: #### 5 7021-8 ####[facility] LABCLIA [id number] [place] [address] [place] Lymphocytes/100 WBC (Bld) 27.5 % Normal [facility] Comment on above: Order Comment: Speci men Type: BLOOD SPECIMENOrdering Facility: [facility] Address: [address] [place] [address] Performed By: #### 5 7021-8 ####[facility] LABIA [id number] [place] [address] [place] MCH (RBC) [Entitic mass] 35.1 pg High 26.0-34.0 [facility] Comment on above: Order Comment: Speci men Type: BLOOD SPECIMENOrdering Facility: [facility] Address: [address] [place] [address] Performed By: #### 5 7021-8 ####[facility] LABIA [id number] [place] [address] [place] MCHC (RBC) [Mass/Vol] 33.2 g/dL Normal 30.5-36.0 [facility] Comment on above: Order Comment: Speci men Type: BLOOD SPECIMENOrdering Facility: [facility] Address: [address] [place] [address] Performed By: #### 5 7021-8 ####[facility] [id number] [place] [address] [place] MCV (RBC) [Entitic vol] 105.9 fL High 80.0-100.0 [facility] Comment on above: Order Comment: Speci men Type: BLOOD SPECIMENOrdering Facility: [facility] Address: [address] [place] [address] Performed By: #### 5 7021-8 ####[facility]BR[facility] [id number] [place] [address] [place] Monocytes (Bld) [#/Vol] 0.25 10*3/uL Normal <0.87 [facility] Comment on above: Order Comment: Speci men Type: BLOOD SPECIMENOrdering Facility: [facility] Address: [address] [place] [address] Performed By: #### 5 7021-8 ####[facility]BRATTLEB[facility] [id number] [place] [address] [place] Monocytes/100 WBC (Bld) 6.1 % Normal C [facility] Comment on above: Order Comment: Speci men Type: BLOOD SPECIMENOrdering Facility: [facility] Address: [address] [place] [address] Performed By: #### 5 7021-8 ####[facility] LABCLIA [id number] [address] [address] [place] Neutrophils (Bld) [#/Vol] 2.52 10*3/uL Normal 1.45-7.50 [facility] Comment on above: Order Comment: Speci men Type: BLOOD SPECIMENOrdering Facility: [facility] Address: [address] [place] [address] Performed By: #### 5 7021-8 ####[facility] LABCLIA [id number] [place] [address] [place] Neutrophils/100 WBC (Bld) 62.0 % Normal [facility] Comment on above: Order Comment: Speci men Type: BLOOD SPECIMENOrdering Facility: [facility] Address: [address] [place] [address] Performed By: #### 5 7021-8 ####[facility] LABCLIA [id number] [place] [address] [place] Nucleated RBC (Bld) [#/Vol] 10*3/uL Normal <0.01 [facility] Comment on above: Order Comment: Speci men Type: BLOOD SPECIMENOrdering Facility: [facility] Address: [address] [place] [address] Performed By: #### 5 7021-8 ####[facility] LABCLIA [id number] [place] [address] [place] Nucleated RBC/100 WBC (Bld) [Ratio] 0.0 /100 WBC Normal [facility] Comment on above: Order Comment: Speci men Type: BLOOD SPECIMENOrdering Facility: [facility] Address: [address] [place] [address] Performed By: #### 5 7021-8 ####[facility] LABCLIA [id number] [place] [address] [place] Platelet mean volume (Bld) [Entitic vol] 10.7 fL Normal 9.0-12.7 [facility] Comment on above: Order Comment: Speci men Type: BLOOD SPECIMENOrdering Facility: [facility] Address: [address] [place] [address] Performed By: #### 5 7021-8 ####[facility] LABCLIA [id number] [place] [address] [place] Platelets (Bld) [#/Vol] 197 10*3/uL Normal 150-400 [facility] Comment on above: Order Comment: Speci men Type: BLOOD SPECIMENOrdering Facility: [facility] Address: [address] [place] [address] Performed By: #### 5 7021-8 ####[facility] LABIA [id number] [place] [address] [place] RBC (Bld) [#/Vol] 3.90 10*6/uL Normal 3.90-5.20 [facility] Comment on above: Order Comment: Speci men Type: BLOOD SPECIMENOrdering Facility: [facility] Address: [address] [place] [address] Performed By: #### 5 7021-8 ####[facility] LABCLIA [id number] [place] [id number] [place] WBC (Bld) [#/Vol] 4.07 10*3/uL Normal 3.70-11.00 [facility] Comment on above: Order Comment: Speci men Type: BLOOD SPECIMENOrdering Facility: [facility] Address: [address] [place] [address] Performed By: #### 5 7021-8 ####[facility] LABCLIA [id number] [address] [address] [place] Comprehensive metabolic 2000 panelon 09-14-2024 Albumin [Mass/Vol] 4.7 g/dL Normal 3.9-4.9 [facility] Comment on above: Order Comment: Speci men Type: BLOOD SPECIMENOrdering Facility: [facility] Address: [address] [place] [address] Performed By: #### 2 4323-8, LIPNF, 14732-5, 6-3 ####[facility] LABCLIA [id number] [place] [address] [place] ALP [Catalytic activity/Vol] 90 U/L Normal 34-123 [facility] Comment on above: Order Comment: Speci men Type: BLOOD SPECIMENOrdering Facility: [facility] Address: [address] [place] [address] Performed By: #### 2 4323-8, LIPNF, , 6-3 ####[facility] LABCLIA [id number] [place] [address] [place] ALT [Catalytic activity/Vol] 16 U/L Normal 7-38 [facility] Comment on above: Order Comment: Speci men Type: BLOOD SPECIMENOrdering Facility: [facility] Address: [address] [place] [address] Performed By: #### 2 4323-8, LIPNF, 90811-6, 6-3 ####[facility] LABCLIA [id number] [place] [id number] [place] Anion gap [Moles/Vol] 9 mmol/L Normal 8-15 [facility] Comment on above: Order Comment: Speci men Type: BLOOD SPECIMENOrdering Facility: [facility] Address: [address] [place] [address] Performed By: #### 2 4323-8, LIPNF, 82448-1, 6-3 ####[facility] LABCLIA [id number] [place] [address] [place] AST [Catalytic activity/Vol] 31 U/L Normal 13-35 [facility] Comment on above: Order Comment: Speci men Type: BLOOD SPECIMENOrdering Facility: [facility] Address: [address] [place] [address] Performed By: #### 2 4323-8, LIPNF, 71850-2, 6-3 ####[facility] LABCLIA [id number] [place] [address] [place] Bilirubin [Mass/Vol] 0.5 mg/dL Normal 0.2-1.3 [facility] Comment on above: Order Comment: Speci men Type: BLOOD SPECIMENOrdering Facility: [facility] Address: [address] [place] [address] Performed By: #### 2 4323-8, LIPNF, 91628-4, 6-3 ####[facility] LABCLIA [id number] [place] [address] [place] Calcium [Mass/Vol] 9.7 mg/dL Normal 8.5-10.2 [facility] Comment on above: Order Comment: Speci men Type: BLOOD SPECIMENOrdering Facility: [facility] Address: [address] [place] [address] Performed By: #### 2 4323-8, LIPNF, 27368-3, 6-3 ####[facility] LABCLIA [id number] [place] [id number] [place] Chloride [Moles/Vol] 105 mmol/L Normal 98-107 [facility] Comment on above: Order Comment: Speci men Type: BLOOD SPECIMENOrdering Facility: [facility] Address: [address] [place] [address] Performed By: #### 2 4323-8, LIPNF, 50327-8, 6-3 ####[facility] LABCLIA [id number] [place] [id number] [place] CO2 [Moles/Vol] 28 mmol/L Normal 22-30 [facility] Comment on above: Order Comment: Specrachel childs Type: BLOOD SPECIMENOrdering Facility: [facility] Address: [address] [place] [address] Performed By: #### 2 4323-8, LIPNF, 99944-5, 3015-3 ####[facility] LABCLIA [id number] [place] [address] [place] Creatinine [Mass/Vol] 0.75 mg/dL Normal 0.58-0.96 [facility] Comment on above: Order Comment: Speci men Type: BLOOD SPECIMENOrdering Facility: [facility] Address: [address] [place] [address] Performed By: #### 2 4323-8, LIPNF, , 3 ####[facility] LABCLIA [id number] [place] [address] [place] Creatinine and Glomerular filtration rate.predicted panel (S/P/Bld) 86 mL/min/1.73m??? Normal >=60 [facility] Comment on above: Order Comment: Edith childs Type: BLOOD SPECIMENOrdering Facility: [facility] Address: [address] [place] [address] Result Comment: Niru mated Glomerular Filtration Rate [...] actual GFR. Performed By: #### 2 4323-8, LIPNF, 82842-7, 3015-3 ####[facility] LABCLIA [id number] [place] [id number] [place] Glucose [Mass/Vol] 112 mg/dL High 74-99 [facility] Comment on above: Order Comment: Edith childs Type: BLOOD SPECIMENOrdering Facility: [facility] Address: [address] [place] [address] Result Comment: The [place] Diabetes Association (ADA) provides guidance for cutoff [...] Standards of Medical Care in Diabetes 2016, [place] [employer]. Diabetes Care. 2016.39(Suppl 1). Performed By: #### 2 4323-8, LIPNF, 15795-7, 6-3 ####[facility] LABCLIA [id number] [place] [address] [place] Potassium [Moles/Vol] 4.4 mmol/L Normal 3.7-5.1 [facility] Comment on above: Order Comment: Edith childs Type: BLOOD SPECIMENOrdering Facility: [facility] Address: [address] [place] [address] Performed By: #### 2 4323-8, LIPNF, 28500-7, 6-3 ####[facility] LABCLIA [id number] [place] [id number] [place] Protein [Mass/Vol] 7.2 g/dL Normal 6.3-8.0 [facility] Comment on above: Order Comment: Edith childs Type: BLOOD SPECIMENOrdering Facility: [facility] Address: [address] [place] [address] Performed By: #### 2 4323-8, LIPNF, 89310-6, 3016-3 ####[facility] LABCLIA [id number] [place] [id number] [place] Sodium [Moles/Vol] 142 mmol/L Normal 136-144 [facility] Comment on above: Order Comment: Speci men Type: BLOOD SPECIMENOrdering Facility: [facility] Address: [address] [place] [address] Performed By: #### 2 4323-8, LIPNF, 52087-1, 3016-3 ####[facility] LABCLIA [id number] [place] [address] [place] Urea nitrogen [Mass/Vol] 19 mg/dL Normal 7-21 [facility] Comment on above: Order Comment: Speci men Type: BLOOD SPECIMENOrdering Facility: [facility] Address: [address] [place] [address] Performed By: #### 2 4323-8, LIPNF, 81958-9, 3016-3 ####[facility] LABIA [id number] [place] [address] [place] HbA1c (Bld)on 09-14-2024 Average glucose Estimated from glycated hemoglobin (Bld) [Mass/Vol] 117 mg/dL Normal [facility] Comment on above: Order Comment: Hayi men Type: BLOOD SPECIMENOrdering Facility: [facility] Address: [address] [place] [address] Result Comment: eAG: (Estimated average glucose) is a calculated value from HgbA1c and is loss control representative of the average blood glucose level in the last 2-3 month period. Performed By: #### 5 5454-3 ####[facility] LABCLIA [id number] [place] [address] [place] HbA1c (Bld) [Mass fraction] 5.7 % High 4.3-5.6 [facility] Comment on above: Order Comment: Hayi men Type: BLOOD SPECIMENOrdering Facility: [facility] Address: [address] [place] [address] Result Comment: Amer [place] Diabetes Association guidelines indicate that patients with HgbA1c in the range 5.7-6.4% are at increased risk for development of diabetes, and intervention by lifestyle modification may be beneficial. HgbA1c greater or equal to 6.5% is considered diagnostic of diabetes. Performed By: #### 5 5454-3 ####[facility] LABCLIA [id number] [place] [address] [place] LIPID PANEL, NONFASTINGon Cholesterol [Mass/Vol] 184 mg/dL Normal <200 [facility] Comment on above: Order Comment: Speci men Type: BLOOD SPECIMENOrdering Facility: [facility] Address: [address] [place] [address] Result Comment: <200 mg/dL, Desirable 200-239 mg/dL, Borderline high >239 mg/dL, High Performed By: #### 2 4323-8, LIPNF, 13451-1, 6-3 ####[facility] LABIA [id number] [place] [address] [place] HDL CHOLESTEROL, NF 49 mg/dL Normal >39 [facility] Comment on above: Order Comment: Hayi men Type: BLOOD SPECIMENOrdering Facility: [facility] Address: [address] [place] [address] Result Comment: 40-5 9 mg/dL, Acceptable >59 mg/dL, High: Negative risk factor for coronary heart disease <40 mg/dL, Low: Positive risk factor for coronary heart disease Performed By: #### 2 4323-8, LIPNF, , 6-3 ####[facility] LABIA [id number] [place] [address] [place] LDL CHOLESTEROL, NF 114 mg/dL High <100 [facility] Comment on above: Order Comment: Hayi men Type: BLOOD SPECIMENOrdering Facility: [facility] Address: [address] [place] [address] Result Comment: <100 mg/dL, Optimal 100-129 mg/dL, Near optimal/above optimal 130-159 mg/dL, Borderline high 160-189 mg/dL, High >189 mg/dL, Very high Secondary prevention optimal LDL Cholesterol levels are recommended to be < 70 mg/dL Performed By: #### 2 4323-8, LIPNF, 54644-8, 3015-3 ####[facility] LABCLIA [id number] [place] [address] [place] LDL/HDL RATIO, NF 2.33 mg/dL Normal <2.54 [facility] Comment on above: Order Comment: Speci men Type: BLOOD SPECIMENOrdering Facility: [facility] Address: [address] [place] [address] Result Comment: Refe rence: 1. National Cholesterol Education Program ATP III Guideline At-A-Glance Quick Desk Reference: National Heart, Lung, and Blood [place]. National Institutes of Health. 2001: NIH Publication No. 01-3305. 2. An International Atherosclerosis Society position paper: global recommendations for the management of dyslipidemia: executive summary, Atherosclerosis. 2014: 232(2):410-413. Performed By: #### 2 4323-8, LIPNF, , 3015-10 ####[facility] LABCLIA [id number] [place] [address] [place] NON HDL CHOL, NF 135 mg/dL High <130 [facility] Comment on above: Order Comment: Speci men Type: BLOOD SPECIMENOrdering Facility: [facility] Address: [address] [place] [address] Result Comment: <130 mg/dL, Optimal 130-159 mg/dL, Near optimal/above optimal 160-189 mg/dL, Borderline high 190-219 mg/dL, High >219 mg/dL, Very high Secondary prevention optimal non HDL Cholesterol levels are recommended to be <100 mg/dL Performed By: #### 2 4323-8, LIPNF, 83888-0, 3015-3 ####[facility] LABCLIA [id number] [place] [address] [place] T CHOL/HDL RATIO NF 3.76 mg/dL Normal <5.10 [facility] Comment on above: Order Comment: Speci men Type: BLOOD SPECIMENOrdering Facility: [facility] Address: [address] [place] [address] Performed By: #### 2 4323-8, LIPNF, , 3 ####[facility] LABCLIA [id number] [address] [address] [place] TRIGLYCERIDES, NF 106 mg/dL Normal <150 [facility] Comment on above: Order Comment: Speci men Type: BLOOD SPECIMENOrdering Facility: [facility] Address: [address] [place] [address] Result Comment: <150 mg/dL, Normal 150-199 mg/dL, Borderline high 200-499 mg/dL, High >499 mg/dL, Very high Performed By: #### 2 4323-8, LIPNF, , 3 ####[facility] LABCLIA [id number] [place] [address] [place] VLDL CHOLESTEROL, NF 21 mg/dL Normal <30 [facility] Comment on above: Order Comment: Speci men Type: BLOOD SPECIMENOrdering Facility: [facility] Address: [address] [place] [address] Performed By: #### 2 4323-8, LIPNF, , 3 ####[facility] LABCLIA [id number] [place] [address] [place] Magnesium SerPl-mCncon 09-14 Magnesium [Mass/Vol] 2.3 mg/dL Normal 1.7-2.3 [facility] Comment on above: Order Comment: Speci men Type: BLOOD SPECIMENOrdering Facility: [facility] Address: [address] [place] [address] Performed By: #### 2 4323-8, LIPNF, , 3 ####[facility] LABCLIA [id number] [place] [address] [place] TSH SerPl-aCncon 09-14-2024 TSH Qn 2.520 m[IU]/L Normal 0.270-4.20 0 [facility] Comment on above: Order Comment: Speci men Type: BLOOD SPECIMENOrdering Facility: [facility] Address: [address] [place] [address] Performed By: #### 2 4323-8, LIPNF, 49452-4, 3016-3 ####[facility] LABCLIA [id number] [place] [address] [place] Urinalysis complete panel (U )on 09-14-2024 Bacteria LM.HPF (Urine sed) [#/Area] Negative Normal Negative [facility] Comment on above: Order Comment: Speci men Type: URINE SPECIMENOrdering Facility: [facility] Address: [address] [place] [address] Performed By: #### 2 4356-8 ####[facility] LABCLIA [id number] [place] [address] [place] Bilirubin Ql (U) Negative Normal Negative [facility] Comment on above: Order Comment: Speci men Type: URINE SPECIMENOrdering Facility: [facility] Address: [address] [place] [address] Performed By: #### 2 4356-8 ####[facility] LABCLIA [id number] [place] [address] [place] Clarity (Unsp spec) Clear Normal Clear [facility] Comment on above: Order Comment: Speci men Type: URINE SPECIMENOrdering Facility: [facility] Address: [address] [place] [address] Performed By: #### 2 4356-8 ####[facility] LABCLIA [id number] [place] [address] [place] Color (U) Yellow Normal Yellow [facility] Comment on above: Order Comment: Speci men Type: URINE SPECIMENOrdering Facility: [facility] Address: [address] [place] [address] Performed By: #### 2 4356-8 ####[facility] LABCLIA [id number] [address] Epithelial cells LM.HPF (Urine sed) [#/Area] None Seen Normal [facility] Comment on above: Order Comment: Speci men Type: URINE SPECIMENOrdering Facility: [facility] Address: [address] [place] [address] Performed By: #### 2 4356-8 ####[facility] LABCLIA [id number] [address] [place] Glucose Test strip (U) [Mass/Vol] Negative Normal Negative [facility] Comment on above: Order Comment: Speci men Type: URINE SPECIMENOrdering Facility: [facility] Address: [address] [place] [address] Performed By: #### 2 4356-8 ####[facility] LABCLIA [id number] [place] [address] [place] Hemoglobin Ql (U) Negative Normal Negative [facility] Comment on above: Order Comment: Speci men Type: URINE SPECIMENOrdering Facility: [facility] Address: [address] [place] [address] Performed By: #### 2 4356-8 ####[facility] LABCLIA [id number] [address] [place] Hyaline casts (Urine sed) [#/Area] 0 /[LPF] Normal 0 /LPF [facility] Comment on above: Order Comment: Speci men Type: URINE SPECIMENOrdering Facility: [facility] Address: [address] [place] [address] Performed By: #### 2 4356-8 ####[facility] LABCLIA [id number] [address] [place] Ketones Ql (U) Negative Normal Negative [facility] Comment on above: Order Comment: Speci men Type: URINE SPECIMENOrdering Facility: [facility] Address: [address] [place] [address] Performed By: #### 2 4356-8 ####[facility] LABCLIA [id number] [place] [address] [place] Leukocyte esterase Test strip Ql (U) Trace Abnormal Negative [facility] Comment on above: Order Comment: Speci men Type: URINE SPECIMENOrdering Facility: [facility] Address: [address] [place] [address] Performed By: #### 2 4356-8 ####[facility] LABCLIA [id number] [place] [address] [place] Nitrite Ql (U) Negative Normal Negative [facility] Comment on above: Order Comment: Speci men Type: URINE SPECIMENOrdering Facility: [facility] Address: [address] [place] [address] Performed By: #### 2 4356-8 ####[facility] LABCLIA [id number] [place] [address] [place] pH (U) 6.0 [pH] Normal <8.5 [facility] Comment on above: Order Comment: Speci men Type: URINE SPECIMENOrdering Facility: [facility] Address: [address] [place] [address] Performed By: #### 2 4356-8 ####[facility] LABCLIA [id number] [place] [address] [place] Protein (U) [Mass/Vol] Negative Normal Negative [facility] Comment on above: Order Comment: Speci men Type: URINE SPECIMENOrdering Facility: [facility] Address: [address] [place] [address] Performed By: #### 2 4356-8 ####[facility] LABCLIA [id number] [place] [address] [place] RBC LM.HPF (Urine sed) [#/Area] 0-2 /HPF Normal 0-2 /HPF [facility] Comment on above: Order Comment: Speci men Type: URINE SPECIMENOrdering Facility: [facility] Address: [address] [place] [address] Performed By: #### 2 4356-8 ####[facility] LABIA [id number] [place] [address] [place] Specific gravity (U) [Rel density] 1.011 Normal 1.005-1.03 0 [facility] Comment on above: Order Comment: Speci men Type: URINE SPECIMENOrdering Facility: [facility] Address: [address] [place] [address] Performed By: #### 2 4356-8 ####[facility] [id number] [place] [address] [place] Urobilinogen Ql (U) 0.2 EU/dL Normal 0.2-1.0 EU/dL [facility] Comment on above: Order Comment: Speci men Type: URINE SPECIMENOrdering Facility: [facility] Address: [address] [place] [address] Performed By: #### 2 4356-8 ####[facility] [id number] [place] [address] [place] WBC LM.HPF (Urine sed) [#/Area] 0-5 /HPF Normal 0-5 /HPF [facility] Comment on above: Order Comment: Speci men Type: URINE SPECIMENOrdering Facility: [facility] Address: [address] [place] [address] Performed By: #### 2 4356-8 ####[facility] LABIA [id number] [place] [address] [place] Vit B12 [facility] -23-2 025 Cobalamin (Vitamin B12) [Mass/Vol] 840 pg/mL Normal 232-1245 [facility] Comment on above: Order Comment: Speci men Type: BLOOD SPECIMENOrdering Facility: [facility] Address: [address] [place] [address] Performed By: #### 2 132-9 ####[facility] LABCLIA [id number] [id number] [id number] [place] CNPNon 08-11-2024 CNPN Telephone ([facility]) ELISHA GODFREY ([id number]) 1955 F Date Time Provider Department 08/11[facility] today, we recorded [...] capsuleRfl: 0 VITAMIN B12 [SQB12] Order #: [id number] FUTURE COMPREHENSIVE METABOLIC PANEL [SQCMP] Order #: [id number] FUTURE HEMOGLOBIN A1C [CMWPN8A] Order #: [id number] FUTURE THYROID STIMULATING HORMONE [SQTSH] Order #: [id number] FUTURE URINALYSIS, WITH MICROSCOPIC [SQUAWMIC] Order #: [id number] FUTURE LIPID PANEL, NONFASTING [SQLIPNF] Order #: [id number] FUTURE MAGNESIUM [SQMG1] Order #: [id number] FUTURE COMPLETE BLOOD COUNT AND DIFFERENTIAL [SQCBCDIF] Order #: [id number] FUTURE Prescriptions as of 08/11/2024 - ramipril [...] ALLERGY) 32 mcg/actuation nasal spray Use 1 [place] in each nostril once daily. - fexofenadine [...] incontinence [N39* (more content not included)... Normal [facility] CBC W/Diff, Automatedon 11-2 Absolute Lymph 1.01 X10 3/uL Normal 0.83-4.51 [facility] Comment on above: Performed By: #### L 100.0100, L500.4050 #### [facility] [address] [place], [address] Absolute Neut 2.5 X10 3/uL Normal 2.0-7.7 [facility] Comment on above: Performed By: #### L 100.0100, L500.4050 #### [facility] [address] [place], [address] Basophils/100 WBC (Bld) 0.8 % Normal 0-1 [facility] Comment on above: Performed By: #### L 100.0100, L500.4050 #### [facility] [address] [place], [address] Eosinophils/100 WBC (Bld) 2.3 % Normal 0-5 [facility] Comment on above: Performed By: #### L 100.0100, L500.4050 #### [facility] [address] [place], [address] Erythrocyte distribution width (RBC) [Ratio] 12.6 % Normal 11.6-14.6 [facility] Comment on above: Performed By: #### L 100.0100, L500.4050 #### [facility] [address] [place], [address] Hematocrit (Bld) [Volume fraction] 41.3 % Normal 37-47 [facility] Comment on above: Performed By: #### L 100.0100, L500.4050 #### [facility] [address] [place], [address] Hemoglobin (Bld) [Mass/Vol] 14.1 g/dL Normal 12.0-15.0 [facility] Comment on above: Performed By: #### L 100.0100, L500.4050 #### [facility] [address] [place], [address] IG% 0.500 Normal 0.0-0.9 [facility] Comment on above: Result Comment: IG% - Immature Granulocytes (promyelocytes, myelocytes and metamyelocytes) > 1% indicates that a LEFT SHIFT is Present. Performed By: #### L 100.0100, L500.4050 #### [facility] [address] [place], [address] Lymphocytes/100 WBC (Bld) 26.2 % Normal 19-41 [facility] Comment on above: Performed By: #### L 100.0100, L500.4050 #### [facility] [address] [place], [address] MCH (RBC) [Entitic mass] 35.7 pg High 27.0-32.0 [facility] Comment on above: Performed By: #### L 100.0100, L500.4050 #### [facility] [address] [place], [address] MCHC (RBC) [Mass/Vol] 34.1 g/dL Normal 32-36 [facility] Comment on above: Performed By: #### L 100.0100, L500.4050 #### [facility] [address] [place], [address] MCV (RBC) [Entitic vol] 104.6 fL High 81-99 [facility] Comment on above: Performed By: #### L 100.0100, L500.4050 #### [facility] [address] [place], [address] Monocytes/100 WBC (Bld) 5.5 % Normal 0-10 [facility] Comment on above: Performed By: #### L 100.0100, L500.4050 #### [facility] [address] [place], [address] Neutrophils/100 WBC (Bld) 64.7 % Normal 47-70 [facility] Comment on above: Performed By: #### L 100.0100, L500.4050 #### [facility] [address] [place], [address] Nucleated RBC (Bld) [#/Vol] 0 10*3/uL Normal 0-5 [facility] Comment on above: Performed By: #### L 100.0100, L500.4050 #### [facility] [address] [place], [address] Platelet mean volume (Bld) [Entitic vol] 10.2 fL Normal 6.2-12.0 [facility] Comment on above: Performed By: #### L 100.0100, L500.4050 #### [facility] [address] [place], [address] Platelets (Bld) [#/Vol] 179 10*3/uL Normal 150-450 [facility] Comment on above: Performed By: #### L 100.0100, L500.4050 #### [facility] [address] [place], [address] RBC (Bld) [#/Vol] 3.95 10*6/uL Low 4.2-5.4 [facility] Comment on above: Performed By: #### L 100.0100, L500.4050 #### [facility] [address] [place], [address] RDW SD 48.3 fl High 35.1-43.9 [facility] Comment on above: Performed By: #### L 100.0100, L500.4050 #### [facility] [address] [place], [address] WBC (Bld) [#/Vol] 3.9 10*3/uL Low 4.4-11.0 [facility] Comment on above: Performed By: #### L 100.0100, L500.4050 #### [facility] [address] [place], [address] Comprehensive Metabolic Prof ilon 07-14-2024 Albumin [Mass/Vol] 4.0 g/dL Normal 3.2-5.0 [facility] Comment on above: Performed By: #### L 100.0100, L500.4050 #### [facility] [address] [place], [address] Albumin/Globulin [Mass ratio] 1.2 {ratio} Normal 0.9-2.4 [facility] Comment on above: Performed By: #### L 100.0100, L500.4050 #### [facility] [address] [place], [address] ALK P 81 U/L Normal 45-117 [facility] Comment on above: Performed By: #### L 100.0100, L500.4050 #### [facility] [address] [place], [address] ALT [Catalytic activity/Vol] 18 U/L Normal 13-56 [facility] Comment on above: Performed By: #### L 100.0100, L500.4050 #### [facility] [address] [place], [address] AST [Catalytic activity/Vol] 17 U/L Normal 15-37 [facility] Comment on above: Performed By: #### L 100.0100, L500.4050 #### [facility] [address] [place], [address] Bilirubin [Mass/Vol] 0.60 mg/dL Normal 0.20-1.00 [facility] Comment on above: Result Comment: For patients on eltrombopag therapy, use of Dimension [place] TBIL is not recommended. Performed By: #### L 100.0100, L500.4050 #### [facility] [address] [place], [address] BUN/CRE 20.1 RATIO High 10-20 [facility] Comment on above: Performed By: #### L 100.0100, L500.4050 #### [facility] [address] [place], [address] CA,Total 9.2 mg/dL Normal 8.5-10.1 [facility] Comment on above: Performed By: #### L 100.0100, L500.4050 #### [facility] [address] [place], [address] Chloride [Moles/Vol] 104 mmol/L Normal 98-107 [facility] Comment on above: Performed By: #### L 100.0100, L500.4050 #### [facility] [address] [place], [address] CO2 [Moles/Vol] 29.0 mmol/L Normal 21.0-32.0 [facility] Comment on above: Performed By: #### L 100.0100, L500.4050 #### [facility] [address] [place], [address] Creatinine [Mass/Vol] 0.85 mg/dL Normal 0.55-1.02 [facility] Comment on above: Result Comment: The validity of the calculated GFR GFRAA in patients over 70 years has not been determined. Clinical correlation is essential. Performed By: #### L 100.0100, L500.4050 #### [facility] [address] [place], [address] EST GFR - AA 85 mL/min Normal >60 [facility] Comment on above: Result Comment: Afri can [place] GFR Calc Performed By: #### L 100.0100, L500.4050 #### [facility] [address] [place], [address] GAP 6 Normal 5-15 [facility] Comment on above: Performed By: #### L 100.0100, L500.4050 #### [facility] [address] [place], [address] GFR/1.73 sq M.predicted among non-blacks MDRD (S/P/Bld) [Vol rate/Area] 71 mL/min/{1.73_m2} Normal >60 [facility] Comment on above: Result Comment: Non- GFR Calc Performed By: #### L 100.0100, L500.4050 #### [facility] [address] [place], [address] Globulin (S) [Mass/Vol] 3.3 g/dL Normal 2.2-4.2 [facility] Comment on above: Performed By: #### L 100.0100, L500.4050 #### [facility] [address] [place], [address] Glucose [Mass/Vol] 193 mg/dL High 74-106 [facility] Comment on above: Result Comment: Fast ing Glucose result greater than or equal to 126 mg/dL suggests DIABETES MELLITUS per A.D.A. criteria. Performed By: #### L 100.0100, L500.4050 #### [facility] [address] [place], [address] Potassium [Moles/Vol] 3.6 mmol/L Normal 3.5-5.1 [facility] Comment on above: Performed By: #### L 100.0100, L500.4050 #### [facility] [address] [place], [address] Sodium [Moles/Vol] 140 mmol/L Normal 136-145 [facility] Comment on above: Performed By: #### L 100.0100, L500.4050 #### [facility] [address] [place], [address] T PROT 7.3 g/dL Normal 6.4-8.2 [facility] Comment on above: Performed By: #### L 100.0100, L500.4050 #### [facility] [address] [place], [address] Urea nitrogen [Mass/Vol] 17 mg/dL Normal 7-18 [facility] Comment on above: Performed By: #### L 100.0100, L500.4050 #### [facility] [address] [place], [address] MG Breast Screeningon 2023 [facility] Absolute lymphocyte countOrd ered By: Dina Ferrer on 10-22-2023 Lymphocytes Auto (Unsp spec) [#/Vol] 0.62 10*3/uL 0.83-4.51 [facility] Automated lymphocyte count a s percentage of total leukocytesOrdered By: Dina Ferrer on 10-22-2023 Lymphocytes/100 WBC Auto (Unsp spec) 18.0 % 19-41 [facility] Basophil percentageOrdered B y: Dina Ferrer on 10-22-2023 Basophils/100 WBC (Bld) 0.9 % 0-1 [facility] Bilirubin [Mass/Vol] 0.70 mg/dL 0.20-1.00 [facility] Comment on above: For patients on eltr ombopag therapy, use of Dimension [place] TBIL is not recommended. Chloride [Moles/Vol] 106 mmol/L 98-107 [facility] Eosinophils/100 WBC (Bld) 3.2 % 0-5 [facility] Glucose [Mass/Vol] 128 mg/dL 74-106 [facility] Comment on above: Fasting Glucose resu lt greater than or equal to 126 mg/dL suggests DIABETES MELLITUS per A.D.A. criteria. Hemoglobin (Bld) [Mass/Vol] 13.2 g/dL 12.0-15.0 [facility] Monocytes/100 WBC (Bld) 6.7 % 0-10 [facility] Neutrophils (Bld) [#/Vol] 2.5 10*3/uL 2.0-7.7 [facility] Neutrophils/100 WBC (Bld) 70.9 % 47-70 [facility] Potassium [Moles/Vol] 4.0 mmol/L 3.5-5.1 [facility] Protein [Mass/Vol] 7.0 g/dL 6.4-8.2 [facility] Sodium [Moles/Vol] 140 mmol/L 136-145 [facility] WBC (Bld) [#/Vol] 3.5 10*3/uL 4.4-11.0 [facility] Determination of erythrocyte mean corpuscular volume (MCV)Ordered By: Dina Ferrer on 10-22-2023 MCV (RBC) [Entitic vol] 104.9 fL 81-99 [facility] Erythrocyte distribution wid th ratioOrdered By: Dina Ferrer on 10-22-2023 Erythrocyte distribution width (RBC) [Ratio] 12.7 % 11.6-14.6 [facility] Erythrocyte distribution wid th standard deviationOrdered By: Dina Ferrer on 10-22-2023 Erythrocyte distribution width (RBC) [Entitic vol] 48.8 fL 35.1-43.9 [facility] Hematocrit Auto (Bld) [Volum e fraction]Ordered By: Dina Ferrer on 10-22-2023 Hematocrit (Bld) [Volume fraction] 40.7 % 37-47 [facility] Immature granulocytes/100 WB C Auto (Bld)Ordered By: Dina Ferrer on 10-22-2023 Immature granulocytes/100 WBC (Bld) 0.300 % 0.0-0.9 [facility] Comment on above: IG% - Immature Granu locytes (promyelocytes, myelocytes and metamyelocytes) > 1% indicates that a LEFT SHIFT is Present. Laboratory - Chemistry and C hemistry - challengeOrdered By: Dina Ferrer on 10-22-2023 Albumin/Globulin [Mass ratio] 1.3 {ratio} 0.9-2.4 [facility] ALP [Catalytic activity/Vol] 86 U/L 45-117 [facility] ALT [Catalytic activity/Vol] 15 U/L 13-56 [facility] CO2 [Moles/Vol] 32.0 mmol/L 21.0-32.0 [facility] Globulin (S) [Mass/Vol] 3.1 g/dL 2.2-4.2 [facility] Urea nitrogen/Creatinine [Mass ratio] 18.2 mg/mg 10-20 [facility] Laboratory - Hematology and Cell countsOrdered By: Dina Ferrer on 10-22-2023 MCH (RBC) [Entitic mass] 34.0 pg 27.0-32.0 [facility] MCHC (RBC) [Mass/Vol] 32.4 g/dL 32-36 [facility] Nucleated RBC/100 WBC (Bld) [Ratio] 0 % 0-5 [facility] Platelet mean volume (Bld) [Entitic vol] 10.2 fL 6.2-12.0 [facility] Platelets (Bld) [#/Vol] 167 10*3/uL 150-450 [facility] No Panel InformationOrdered By: Dina Ferrer on 10-22-2023 Estimated GFR (MDRD) Amer 82 mL/min >60 [facility] Comment on above: GFR Calc Estimated GFR (MDRD) Non-Af Amer 68 mL/min >60 [facility] Comment on above: Non- GFR Calc RBC Auto (Bld) [#/Vol]Ordere d By: Dina Ferrer on 10-22-2023 RBC (Bld) [#/Vol] 3.88 10*6/uL 4.2-5.4 [facility] Serum or plasma calcium shira urement (mass/volume)Ordered By: Dina Ferrer on 10-22-2023 Calcium [Mass/Vol] 9.1 mg/dL 8.5-10.1 [facility] Serum or plasma creatinine m easurement (mass/volume)Ordered By: Dina Ferrer on 10-22-2023 Creatinine [Mass/Vol] 0.88 mg/dL 0.55-1.02 [facility] Comment on above: The validity of the calculated GFR & GFRAA in patients over 70 years has not been determined. Clinical correlation is essential. Serum or plasma urea nitroge n measurement (mass/volume)Ordered By: Dina Ferrer on 10-22-2023 Urea nitrogen [Mass/Vol] 16 mg/dL 7-18 [facility] Thin prep Papanicolaou smear with manual screeningOrdered By: Dina Ferrer on 10-22-2023 Thin prep Papanicolaou smear with manual screening 3.9 g/dL 3.2-5.0 [facility] Thin prep Papanicolaou smear with manual screening 15 U/L 15-37 [facility] Thin prep Papanicolaou smear with manual screening 2 5-15 [facility] XR Hand - left PA and Latera l and Obliqueon 08-24-2023 IMPRESSION: No acute osseous abnormality [employer] H[employer] Developer: PATO Transcribe Date/Time: Aug 24 2023 10:23A Dictated by : ZULMA ROE MD This examination was interpreted and the report reviewed and electronically signed by: ZULMA ROE MD on Aug 24 2023 10:24AM [facility] DIVISION OF RADIOLOGY * * *Final Report* [...] radiodense foreign body. DIVISION OF RADIOLOGY Provider, [facility] - 08/24/2023 * * *Final Report* * [...] body. IMPRESSION IMPRESSION: No acute osseous abnormality [employer] H[employer] Developer: PSCB Transcribe Date/Time: Aug 24 2023 10:23A Dictated by : ZULMA ROE MD This examination was interpreted and the report reviewed and electronically signed by: ZULMA ROE MD on Aug 24 2023 10:24AM EST [facility] Radiology Study observation (narrative) [facility] XR Hand - left PA and Latera l and ObliqueOrdered By: [facility] Provider on 08-24-2023 [facility] Absolute lymphocyte countOrd ered By: Dina Ferrer on 07-23-2023 Lymphocytes Auto (Unsp spec) [#/Vol] 0.92 10*3/uL 0.83-4.51 [facility] Basophil percentageOrdered B y: Dina Ferrer on 07-23-2023 Basophils/100 WBC (Bld) 0.6 % 0-1 [facility] Bilirubin [Mass/Vol] 0.80 mg/dL 0.20-1.00 [facility] Comment on above: For patients on eltr ombopag therapy, use of Dimension [place] TBIL is not recommended. Chloride [Moles/Vol] 106 mmol/L 98-107 [facility] Eosinophils/100 WBC (Bld) 3.4 % 0-5 [facility] Glucose [Mass/Vol] 103 mg/dL 74-106 [facility] Comment on above: Fasting Glucose resu lt from 100 to 125 mg/dL suggests IMPAIRED HOMEOSTASIS per A.D.A. criteria. Neutrophils (Bld) [#/Vol] 3.4 10*3/uL 2.0-7.7 [facility] Neutrophils/100 WBC (Bld) 70.7 % 47-70 [facility] Potassium [Moles/Vol] 3.7 mmol/L 3.5-5.1 [facility] Protein [Mass/Vol] 7.5 g/dL 6.4-8.2 [facility] Sodium [Moles/Vol] 141 mmol/L 136-145 [facility] WBC (Bld) [#/Vol] 4.8 10*3/uL 4.4-11.0 [facility] Blood erythrocytes count (nu mber/volume)Ordered By: Dina Ferrer on 07-23-2023 RBC (Bld) [#/Vol] 4.01 10*6/uL 4.2-5.4 [facility] Blood hemoglobin measurement (mass/volume)Ordered By: Dina Ferrer on 07-23-2023 Hemoglobin (Bld) [Mass/Vol] 13.9 g/dL 12.0-15.0 [facility] Blood lymphocytes/100 leukoc ytesOrdered By: Dina Ferrer on 07-23-2023 Lymphocytes/100 WBC (Bld) 19.4 % 19-41 [facility] Blood monocytes/100 leukocyt esOrdered By: Dina Ferrer on 07-23-2023 Monocytes/100 WBC (Bld) 5.7 % 0-10 [facility] Blood platelet mean volumeOr dered By: Dina Ferrer on 07-23-2023 Platelet mean volume (Bld) [Entitic vol] 10.2 fL 6.2-12.0 [facility] Determination of erythrocyte mean corpuscular volume (MCV)Ordered By: Dina Ferrer on 07-23-2023 MCV (RBC) [Entitic vol] 107.2 fL 81-99 [facility] Hematocrit Auto (Bld) [Volum e fraction]Ordered By: Dina Ferrer on 07-23-2023 Hematocrit (Bld) [Volume fraction] 43.0 % 37-47 [facility] Laboratory - Chemistry and C hemistry - challengeOrdered By: Dina Ferrer on 07-23-2023 ALP [Catalytic activity/Vol] 83 U/L 45-117 [facility] ALT [Catalytic activity/Vol] 17 U/L 13-56 [facility] CO2 [Moles/Vol] 31.0 mmol/L 21.0-32.0 [facility] Globulin (S) [Mass/Vol] 3.5 g/dL 2.2-4.2 [facility] Urea nitrogen/Creatinine [Mass ratio] 21.1 mg/mg 10-20 [facility] Laboratory - Hematology and Cell countsOrdered By: Dina Ferrer on 07-23-2023 Erythrocyte distribution width (RBC) [Entitic vol] 50.3 fL 35.1-43.9 [facility] Erythrocyte distribution width (RBC) [Ratio] 12.7 % 11.6-14.6 [facility] Immature granulocytes/100 WBC (Bld) 0.200 % 0.0-0.9 [facility] Comment on above: IG% - Immature Granu locytes (promyelocytes, myelocytes and metamyelocytes) > 1% indicates that a LEFT SHIFT is Present. MCH (RBC) [Entitic mass] 34.7 pg 27.0-32.0 [facility] Nucleated RBC/100 WBC (Bld) [Ratio] 0 % 0-5 [facility] MCHC Auto (RBC) [Mass/Vol]Or dered By: Dina Ferrer on 07-23-2023 MCHC (RBC) [Mass/Vol] 32.3 g/dL 32-36 [facility] No Panel InformationOrdered By: Dina Ferrer on 07-23-2023 Estimated GFR (MDRD) Amer 85 mL/min >60 [facility] Comment on above: GFR Calc Estimated GFR (MDRD) Non-Af Amer 70 mL/min >60 [facility] Comment on above: Non- GFR Calc Platelets bldOrdered By: Issac Ferrer on 07-23-2023 Platelets (Bld) [#/Vol] 196 10*3/uL 150-450 [facility] Serum or plasma albumin shira urement (mass/volume)Ordered By: Dina Ferrer on 07-23-2023 Albumin [Mass/Vol] 4.0 g/dL 3.2-5.0 [facility] Serum or plasma albumin/glob ulin mass ratioOrdered By: Dina Ferrer on 07-23-2023 Albumin/Globulin [Mass ratio] 1.1 {ratio} 0.9-2.4 [facility] Serum or plasma calcium shira urement (mass/volume)Ordered By: Dina Ferrer on 07-23-2023 Calcium [Mass/Vol] 9.1 mg/dL 8.5-10.1 [facility] Serum or plasma creatinine m easurement (mass/volume)Ordered By: Dina Ferrer on 07-23-2023 Creatinine [Mass/Vol] 0.85 mg/dL 0.55-1.02 [facility] Comment on above: The validity of the calculated GFR & GFRAA in patients over 70 years has not been determined. Clinical correlation is essential. Serum or plasma urea nitroge n measurement (mass/volume)Ordered By: Dina Ferrer on 07-23-2023 Urea nitrogen [Mass/Vol] 18 mg/dL 7-18 [facility] Thin prep Papanicolaou smear with manual screeningOrdered By: Dina Ferrer on 07-23-2023 Thin prep Papanicolaou smear with manual screening 18 U/L 15-37 [facility] Thin prep Papanicolaou smear with manual screening 4 5-15 [facility] Absolute lymphocyte countOrd ered By: Dina Ferrer on 05-07-2023 Lymphocytes Auto (Unsp spec) [#/Vol] 1.10 10*3/uL 0.83-4.51 [facility] Basophil percentageOrdered B y: Dina Ferrer on 05-07-2023 Basophils/100 WBC (Bld) 0.9 % 0-1 [facility] Bilirubin [Mass/Vol] 0.60 mg/dL 0.20-1.00 [facility] Comment on above: For patients on eltr ombopag therapy, use of Dimension [place] TBIL is not recommended. Chloride [Moles/Vol] 106 mmol/L 98-107 [facility] Eosinophils/100 WBC (Bld) 3.5 % 0-5 [facility] Glucose [Mass/Vol] 104 mg/dL 74-106 [facility] Comment on above: Fasting Glucose resu lt from 100 to 125 mg/dL suggests IMPAIRED HOMEOSTASIS per A.D.A. criteria. Neutrophils (Bld) [#/Vol] 1.9 10*3/uL 2.0-7.7 [facility] Neutrophils/100 WBC (Bld) 54.4 % 47-70 [facility] Potassium [Moles/Vol] 4.1 mmol/L 3.5-5.1 [facility] Protein [Mass/Vol] 7.2 g/dL 6.4-8.2 [facility] Sodium [Moles/Vol] 139 mmol/L 136-145 [facility] WBC (Bld) [#/Vol] 3.5 10*3/uL 4.4-11.0 [facility] Blood erythrocytes count (nu mber/volume)Ordered By: Dina Ferrer on 05-07-2023 RBC (Bld) [#/Vol] 3.88 10*6/uL 4.2-5.4 [facility] Blood hemoglobin measurement (mass/volume)Ordered By: Dina Ferrer on 05-07-2023 Hemoglobin (Bld) [Mass/Vol] 13.5 g/dL 12.0-15.0 [facility] Blood lymphocytes/100 leukoc ytesOrdered By: Dinadahiana Ferrer on 05-07-2023 Lymphocytes/100 WBC (Bld) 31.7 % 19-41 [facility] Blood monocytes/100 leukocyt esOrdered By: Dinadahiana Ferrer on 05-07-2023 Monocytes/100 WBC (Bld) 9.2 % 0-10 [facility] Blood platelet mean volumeOr dered By: Dina Ferrer on 05-07-2023 Platelet mean volume (Bld) [Entitic vol] 10.1 fL 6.2-12.0 [facility] Determination of erythrocyte mean corpuscular volume (MCV)Ordered By: Dina Ferrer on 05-07-2023 MCV (RBC) [Entitic vol] 105.7 fL 81-99 [facility] Hematocrit Auto (Bld) [Volum e fraction]Ordered By: Dina Ferrer on 05-07-2023 Hematocrit (Bld) [Volume fraction] 41.0 % 37-47 [facility] Laboratory - Chemistry and C hemistry - challengeOrdered By: Dina Ferrer on 05-07-2023 ALP [Catalytic activity/Vol] 84 U/L 45-117 [facility] ALT [Catalytic activity/Vol] 18 U/L 13-56 [facility] CO2 [Moles/Vol] 28.0 mmol/L 21.0-32.0 [facility] Globulin (S) [Mass/Vol] 3.2 g/dL 2.2-4.2 [facility] Urea nitrogen/Creatinine [Mass ratio] 19.6 mg/mg 10-20 [facility] Laboratory - Hematology and Cell countsOrdered By: Dina Ferrer on 05-07-2023 Erythrocyte distribution width (RBC) [Entitic vol] 49.9 fL 35.1-43.9 [facility] Erythrocyte distribution width (RBC) [Ratio] 13.0 % 11.6-14.6 [facility] Immature granulocytes/100 WBC (Bld) 0.300 % 0.0-0.9 [facility] Comment on above: IG% - Immature Granu locytes (promyelocytes, myelocytes and metamyelocytes) > 1% indicates that a LEFT SHIFT is Present. MCH (RBC) [Entitic mass] 34.8 pg 27.0-32.0 [facility] Nucleated RBC/100 WBC (Bld) [Ratio] 0 % 0-5 [facility] MCHC Auto (RBC) [Mass/Vol]Or dered By: Dina Ferrer on 05-07-2023 MCHC (RBC) [Mass/Vol] 32.9 g/dL 32-36 [facility] No Panel InformationOrdered By: Dina Ferrer on 05-07-2023 Estimated GFR (MDRD) Amer 83 mL/min >60 [facility] Comment on above: GFR Calc Estimated GFR (MDRD) Non-Af Amer 69 mL/min >60 [facility] Comment on above: Non- GFR Calc Platelets bldOrdered By: Issac Ferrer on 05-07-2023 Platelets (Bld) [#/Vol] 190 10*3/uL 150-450 [facility] Serum or plasma albumin shira urement (mass/volume)Ordered By: Dina Ferrer on 05-07-2023 Albumin [Mass/Vol] 4.0 g/dL 3.2-5.0 [facility] Serum or plasma albumin/glob ulin mass ratioOrdered By: Dina Ferrer on 05-07-2023 Albumin/Globulin [Mass ratio] 1.2 {ratio} 0.9-2.4 [facility] Serum or plasma calcium shira urement (mass/volume)Ordered By: Dina Ferrer on 05-07-2023 Calcium [Mass/Vol] 9.1 mg/dL 8.5-10.1 [facility] Serum or plasma creatinine m easurement (mass/volume)Ordered By: Dina Ferrer on 05-07-2023 Creatinine [Mass/Vol] 0.87 mg/dL 0.55-1.02 [facility] Comment on above: The validity of the calculated GFR & GFRAA in patients over 70 years has not been determined. Clinical correlation is essential. Serum or plasma urea nitroge n measurement (mass/volume)Ordered By: Dina Ferrer on 05-07-2023 Urea nitrogen [Mass/Vol] 17 mg/dL 7-18 [facility] Thin prep Papanicolaou smear with manual screeningOrdered By: Dina Ferrer on 05-07-2023 Thin prep Papanicolaou smear with manual screening 20 U/L 15-37 [facility] Thin prep Papanicolaou smear with manual screening 5 5-15 [facility] Absolute lymphocyte countOrd ered By: Dr. Ferrer on 02-05-2023 Lymphocytes Auto (Unsp spec) [#/Vol] 1.10 10*3/uL 0.83-4.51 [facility] Basophil percentageOrdered B y: Dr. Ferrer on 02-05-2023 Basophils/100 WBC (Bld) 0.9 % 0-1 [facility] Bilirubin [Mass/Vol] 0.60 mg/dL 0.20-1.00 [facility] Comment on above: For patients on eltr ombopag therapy, use of Dimension [place] TBIL is not recommended. Chloride [Moles/Vol] 105 mmol/L 98-107 [facility] Eosinophils/100 WBC (Bld) 2.7 % 0-5 [facility] Glucose [Mass/Vol] 134 mg/dL 74-106 [facility] Comment on above: Fasting Glucose resu lt greater than or equal to 126 mg/dL suggests DIABETES MELLITUS per A.D.A. criteria. Neutrophils (Bld) [#/Vol] 1.9 10*3/uL 2.0-7.7 [facility] Neutrophils/100 WBC (Bld) 57.2 % 47-70 [facility] Potassium [Moles/Vol] 3.8 mmol/L 3.5-5.1 [facility] Protein [Mass/Vol] 7.6 g/dL 6.4-8.2 [facility] Sodium [Moles/Vol] 140 mmol/L 136-145 [facility] WBC (Bld) [#/Vol] 3.4 10*3/uL 4.4-11.0 [facility] Blood erythrocytes count (nu mber/volume)Ordered By: Dr. Ferrer on 02-05-2023 RBC (Bld) [#/Vol] 4.04 10*6/uL 4.2-5.4 [facility] Blood hemoglobin measurement (mass/volume)Ordered By: Dr. Ferrer on 02-05-2023 Hemoglobin (Bld) [Mass/Vol] 14.2 g/dL 12.0-15.0 [facility] Blood lymphocytes/100 leukoc ytesOrdered By: Dr. Ferrer on 02-05-2023 Lymphocytes/100 WBC (Bld) 32.4 % 19-41 [facility] Blood monocytes/100 leukocyt esOrdered By: Dr. Ferrer on 02-05-2023 Monocytes/100 WBC (Bld) 6.5 % 0-10 [facility] Blood platelet mean volumeOr dered By: Dr. Ferrer on 02-05-2023 Platelet mean volume (Bld) [Entitic vol] 10.3 fL 6.2-12.0 [facility] Determination of erythrocyte mean corpuscular volume (MCV)Ordered By: Dr. Ferrer on 02-05-2023 MCV (RBC) [Entitic vol] 105.9 fL 81-99 [facility] Hematocrit Auto (Bld) [Volum e fraction]Ordered By: Dr. Ferrer on 02-05-2023 Hematocrit (Bld) [Volume fraction] 42.8 % 37-47 [facility] Laboratory - Chemistry and C hemistry - challengeOrdered By: Dr. Ferrer on 02-05-2023 ALP [Catalytic activity/Vol] 88 U/L 45-117 [facility] ALT [Catalytic activity/Vol] 17 U/L 13-56 [facility] CO2 [Moles/Vol] 29.0 mmol/L 21.0-32.0 [facility] Globulin (S) [Mass/Vol] 3.6 g/dL 2.2-4.2 [facility] Urea nitrogen/Creatinine [Mass ratio] 17.6 mg/mg 10-20 [facility] Laboratory - Hematology and Cell countsOrdered By: Dr. Ferrer on 02-05-2023 Erythrocyte distribution width (RBC) [Entitic vol] 49.8 fL 35.1-43.9 [facility] Erythrocyte distribution width (RBC) [Ratio] 12.7 % 11.6-14.6 [facility] Immature granulocytes/100 WBC (Bld) 0.300 % 0.0-0.9 [facility] Comment on above: IG% - Immature Granu locytes (promyelocytes, myelocytes and metamyelocytes) > 1% indicates that a LEFT SHIFT is Present. MCH (RBC) [Entitic mass] 35.1 pg 27.0-32.0 [facility] Nucleated RBC/100 WBC (Bld) [Ratio] 0 % 0-5 [facility] MCHC Auto (RBC) [Mass/Vol]Or dered By: Dr. Ferrer on 02-05-2023 MCHC (RBC) [Mass/Vol] 33.2 g/dL 32-36 [facility] No Panel InformationOrdered By: Dr. Ferrer on 02-05-2023 Estimated GFR (MDRD) Amer 92 mL/min >60 [facility] Comment on above: GFR Calc Estimated GFR (MDRD) Non-Af Amer 76 mL/min >60 [facility] Comment on above: Non- GFR Calc Platelets bldOrdered By: Dr. Ferrer on 02-05-2023 Platelets (Bld) [#/Vol] 204 10*3/uL 150-450 [facility] Serum or plasma albumin shira urement (mass/volume)Ordered By: Dr. Ferrer on 02-05-2023 Albumin [Mass/Vol] 4.0 g/dL 3.2-5.0 [facility] Serum or plasma albumin/glob ulin mass ratioOrdered By: Dr. Ferrer on 02-05-2023 Albumin/Globulin [Mass ratio] 1.1 {ratio} 0.9-2.4 [facility] Serum or plasma calcium shira urement (mass/volume)Ordered By: Dr. Ferrer on 02-05-2023 Calcium [Mass/Vol] 9.4 mg/dL 8.5-10.1 [facility] Serum or plasma creatinine m easurement (mass/volume)Ordered By: Dr. Ferrer on 02-05-2023 Creatinine [Mass/Vol] 0.80 mg/dL 0.55-1.02 [facility] Comment on above: The validity of the calculated GFR & GFRAA in patients over 70 years has not been determined. Clinical correlation is essential. Serum or plasma urea nitroge n measurement (mass/volume)Ordered By: Dr. Ferrer on 02-05-2023 Urea nitrogen [Mass/Vol] 14 mg/dL 7-18 [facility] Thin prep Papanicolaou smear with manual screeningOrdered By: Dr. Ferrer on 02-05-2023 Thin prep Papanicolaou smear with manual screening 20 U/L 15-37 [facility] Thin prep Papanicolaou smear with manual screening 6 5-15 [facility] Absolute lymphocyte countOrd ered By: Dr. Ferrer on 11-20-2022 Lymphocytes Auto (Unsp spec) [#/Vol] 1.05 10*3/uL 0.83-4.51 [facility] Basophil percentageOrdered B y: Dr. Ferrer on 11-20-2022 Basophils/100 WBC (Bld) 0.8 % 0-1 [facility] Bilirubin [Mass/Vol] 0.60 mg/dL 0.20-1.00 [facility] Comment on above: For patients on eltr ombopag therapy, use of Dimension [place] TBIL is not recommended. Chloride [Moles/Vol] 105 mmol/L 98-107 [facility] Eosinophils/100 WBC (Bld) 3.1 % 0-5 [facility] Glucose [Mass/Vol] 93 mg/dL 74-106 [facility] Neutrophils (Bld) [#/Vol] 2.1 10*3/uL 2.0-7.7 [facility] Neutrophils/100 WBC (Bld) 57.7 % 47-70 [facility] Potassium [Moles/Vol] 3.8 mmol/L 3.5-5.1 [facility] Protein [Mass/Vol] 7.3 g/dL 6.4-8.2 [facility] Sodium [Moles/Vol] 140 mmol/L 136-145 [facility] WBC (Bld) [#/Vol] 3.6 10*3/uL 4.4-11.0 [facility] Blood erythrocytes count (nu mber/volume)Ordered By: Dr. Ferrer on 11-20-2022 RBC (Bld) [#/Vol] 3.94 10*6/uL 4.2-5.4 [facility] Blood hemoglobin measurement (mass/volume)Ordered By: Dr. Ferrer on 11-20-2022 Hemoglobin (Bld) [Mass/Vol] 13.5 g/dL 12.0-15.0 [facility] Blood lymphocytes/100 leukoc ytesOrdered By: Dr. Ferrer on 11-20-2022 Lymphocytes/100 WBC (Bld) 29.2 % 19-41 [facility] Blood monocytes/100 leukocyt esOrdered By: Dr. Ferrer on 11-20-2022 Monocytes/100 WBC (Bld) 8.9 % 0-10 [facility] Blood platelet mean volumeOr dered By: Dr. Ferrer on 11-20-2022 Platelet mean volume (Bld) [Entitic vol] 10.4 fL 6.2-12.0 [facility] Determination of erythrocyte mean corpuscular volume (MCV)Ordered By: Dr. Ferrer on 11-20-2022 MCV (RBC) [Entitic vol] 105.1 fL 81-99 [facility] Hematocrit Auto (Bld) [Volum e fraction]Ordered By: Dr. Ferrer on 11-20-2022 Hematocrit (Bld) [Volume fraction] 41.4 % 37-47 [facility] Laboratory - Chemistry and C hemistry - challengeOrdered By: Dr. Ferrer on 11-20-2022 ALP [Catalytic activity/Vol] 86 U/L 45-117 [facility] ALT [Catalytic activity/Vol] 21 U/L 13-56 [facility] CO2 [Moles/Vol] 32.0 mmol/L 21.0-32.0 [facility] Globulin (S) [Mass/Vol] 3.2 g/dL 2.2-4.2 [facility] Urea nitrogen/Creatinine [Mass ratio] 20.3 mg/mg 10-20 [facility] Laboratory - Hematology and Cell countsOrdered By: Dr. Ferrer on 11-20-2022 Erythrocyte distribution width (RBC) [Entitic vol] 48.8 fL 35.1-43.9 [facility] Erythrocyte distribution width (RBC) [Ratio] 12.7 % 11.6-14.6 [facility] Immature granulocytes/100 WBC (Bld) 0.300 % 0.0-0.9 [facility] Comment on above: IG% - Immature Granu locytes (promyelocytes, myelocytes and metamyelocytes) > 1% indicates that a LEFT SHIFT is Present. MCH (RBC) [Entitic mass] 34.3 pg 27.0-32.0 [facility] Nucleated RBC/100 WBC (Bld) [Ratio] 0 % 0-5 [facility] MCHC Auto (RBC) [Mass/Vol]Or dered By: Dr. Ferrer on 11-20-2022 MCHC (RBC) [Mass/Vol] 32.6 g/dL 32-36 [facility] No Panel InformationOrdered By: Dr. Ferrer on 11-20-2022 Estimated GFR (MDRD) Amer 87 mL/min >60 [facility] Comment on above: GFR Calc Estimated GFR (MDRD) Non-Af Amer 72 mL/min >60 [facility] Comment on above: Non- GFR Calc Platelets bldOrdered By: Dr. Ferrer on 11-20-2022 Platelets (Bld) [#/Vol] 189 10*3/uL 150-450 [facility] Serum or plasma albumin shira urement (mass/volume)Ordered By: Dr. Ferrer on 11-20-2022 Albumin [Mass/Vol] 4.1 g/dL 3.2-5.0 [facility] Serum or plasma albumin/glob ulin mass ratioOrdered By: Dr. Ferrer on 11-20-2022 Albumin/Globulin [Mass ratio] 1.3 {ratio} 0.9-2.4 [facility] Serum or plasma calcium shira urement (mass/volume)Ordered By: Dr. Ferrer on 11-20-2022 Calcium [Mass/Vol] 9.3 mg/dL 8.5-10.1 [facility] Serum or plasma creatinine m easurement (mass/volume)Ordered By: Dr. Ferrer on 11-20-2022 Creatinine [Mass/Vol] 0.84 mg/dL 0.55-1.02 [facility] Comment on above: The validity of the calculated GFR & GFRAA in patients over 70 years has not been determined. Clinical correlation is essential. Serum or plasma urea nitroge n measurement (mass/volume)Ordered By: Dr. Ferrer on 11-20-2022 Urea nitrogen [Mass/Vol] 17 mg/dL 7-18 [facility] Thin prep Papanicolaou smear with manual screeningOrdered By: Dr. Ferrer on 11-20-2022 Thin prep Papanicolaou smear with manual screening 22 U/L 15-37 [facility] Thin prep Papanicolaou smear with manual screening 3 5-15 [facility] LEIGH SCREENINGon 11-06-2022 [facility] HEMOGLOBIN A1C (POC)on 09-21 HbA1c (Bld) [Mass fraction] 5.5 % 4.2 - 5.6 % [facility] Absolute lymphocyte countOrd ered By: Dr. Ferrer on 08-26-2022 Lymphocytes Auto (Unsp spec) [#/Vol] 1.09 10*3/uL 0.83-4.51 [facility] Basophil percentageOrdered B y: Dr. Ferrer on 08-26-2022 Basophils/100 WBC (Bld) 0.8 % 0-1 [facility] Bilirubin [Mass/Vol] 0.60 mg/dL 0.20-1.00 [facility] Comment on above: For patients on eltr ombopag therapy, use of Dimension [place] TBIL is not recommended. Chloride [Moles/Vol] 104 mmol/L 98-107 [facility] Eosinophils/100 WBC (Bld) 3.6 % 0-5 [facility] Glucose [Mass/Vol] 96 mg/dL 74-106 [facility] Neutrophils (Bld) [#/Vol] 2.1 10*3/uL 2.0-7.7 [facility] Neutrophils/100 WBC (Bld) 58.9 % 47-70 [facility] Potassium [Moles/Vol] 4.1 mmol/L 3.5-5.1 [facility] Protein [Mass/Vol] 7.1 g/dL 6.4-8.2 [facility] Sodium [Moles/Vol] 140 mmol/L 136-145 [facility] WBC (Bld) [#/Vol] 3.6 10*3/uL 4.4-11.0 [facility] Blood erythrocytes count (nu mber/volume)Ordered By: Dr. Ferrer on 08-26-2022 RBC (Bld) [#/Vol] 4.00 10*6/uL 4.2-5.4 [facility] Blood hemoglobin measurement (mass/volume)Ordered By: Dr. Ferrer on 08-26-2022 Hemoglobin (Bld) [Mass/Vol] 13.7 g/dL 12.0-15.0 [facility] Blood lymphocytes/100 leukoc ytesOrdered By: Dr. Ferrer on 08-26-2022 Lymphocytes/100 WBC (Bld) 30.3 % 19-41 [facility] Blood monocytes/100 leukocyt esOrdered By: Dr. Ferrer on 08-26-2022 Monocytes/100 WBC (Bld) 6.4 % 0-10 [facility] Blood platelet mean volumeOr dered By: Dr. Ferrer on 08-26-2022 Platelet mean volume (Bld) [Entitic vol] 10.2 fL 6.2-12.0 [facility] Determination of erythrocyte mean corpuscular volume (MCV)Ordered By: Dr. Ferrer on 08-26-2022 MCV (RBC) [Entitic vol] 105.5 fL 81-99 [facility] Hematocrit Auto (Bld) [Volum e fraction]Ordered By: Dr. Ferrer on 08-26-2022 Hematocrit (Bld) [Volume fraction] 42.2 % 37-47 [facility] Laboratory - Chemistry and C hemistry - challengeOrdered By: Dr. Ferrer on 08-26-2022 ALP [Catalytic activity/Vol] 81 U/L 45-117 [facility] ALT [Catalytic activity/Vol] 20 U/L 13-56 [facility] CO2 [Moles/Vol] 32.0 mmol/L 21.0-32.0 [facility] Globulin (S) [Mass/Vol] 3.0 g/dL 2.2-4.2 [facility] Urea nitrogen/Creatinine [Mass ratio] 17.7 mg/mg 10-20 [facility] Laboratory - Hematology and Cell countsOrdered By: Dr. Ferrer on 08-26-2022 Erythrocyte distribution width (RBC) [Entitic vol] 50.3 fL 35.1-43.9 [facility] Erythrocyte distribution width (RBC) [Ratio] 12.9 % 11.6-14.6 [facility] Immature granulocytes/100 WBC (Bld) 0.000 % 0.0-0.9 [facility] Comment on above: IG% - Immature Granu locytes (promyelocytes, myelocytes and metamyelocytes) > 1% indicates that a LEFT SHIFT is Present. MCH (RBC) [Entitic mass] 34.3 pg 27.0-32.0 [facility] Nucleated RBC/100 WBC (Bld) [Ratio] 0 % 0-5 [facility] MCHC Auto (RBC) [Mass/Vol]Or dered By: Dr. Ferrer on 08-26-2022 MCHC (RBC) [Mass/Vol] 32.5 g/dL 32-36 [facility] No Panel InformationOrdered By: Dr. Ferrer on 08-26-2022 Estimated GFR (MDRD) Amer 86 mL/min >60 [facility] Comment on above: GFR Calc Estimated GFR (MDRD) Non-Af Amer 71 mL/min >60 [facility] Comment on above: Non- GFR Calc Platelets bldOrdered By: Dr. Ferrer on 08-26-2022 Platelets (Bld) [#/Vol] 184 10*3/uL 150-450 [facility] Serum or plasma albumin shira urement (mass/volume)Ordered By: Dr. Ferrer on 08-26-2022 Albumin [Mass/Vol] 4.1 g/dL 3.2-5.0 [facility] Serum or plasma albumin/glob ulin mass ratioOrdered By: Dr. Ferrer on 08-26-2022 Albumin/Globulin [Mass ratio] 1.4 {ratio} 0.9-2.4 [facility] Serum or plasma calcium shira urement (mass/volume)Ordered By: Dr. Ferrer on 08-26-2022 Calcium [Mass/Vol] 9.4 mg/dL 8.5-10.1 [facility] Serum or plasma creatinine m easurement (mass/volume)Ordered By: Dr. Ferrer on 08-26-2022 Creatinine [Mass/Vol] 0.85 mg/dL 0.55-1.02 [facility] Comment on above: The validity of the calculated GFR & GFRAA in patients over 70 years has not been determined. Clinical correlation is essential. Serum or plasma urea nitroge n measurement (mass/volume)Ordered By: Dr. Ferrer on 08-26-2022 Urea nitrogen [Mass/Vol] 15 mg/dL 7-18 [facility] Thin prep Papanicolaou smear with manual screeningOrdered By: Dr. Ferrer on 08-26-2022 Thin prep Papanicolaou smear with manual screening 19 U/L 15-37 [facility] Thin prep Papanicolaou smear with manual screening 4 5-15 [facility] Absolute lymphocyte countOrd ered By: Dr. Ferrer on 06-02-2022 Lymphocytes Auto (Unsp spec) [#/Vol] 1.08 10*3/uL 0.83-4.51 [facility] Basophil percentageOrdered B y: Dr. Ferrer on 06-02-2022 Basophils/100 WBC (Bld) 0.7 % 0-1 [facility] Bilirubin [Mass/Vol] 0.60 mg/dL 0.20-1.00 [facility] Comment on above: For patients on eltr ombopag therapy, use of [employer] [place] TBIL is not recommended. Chloride [Moles/Vol] 108 mmol/L 98-107 [facility] Eosinophils/100 WBC (Bld) 2.6 % 0-5 [facility] Glucose [Mass/Vol] 110 mg/dL 74-106 [facility] Comment on above: Fasting Glucose resu lt from 100 to 125 mg/dL suggests IMPAIRED HOMEOSTASIS per A.D.A. criteria. Neutrophils (Bld) [#/Vol] 2.7 10*3/uL 2.0-7.7 [facility] Neutrophils/100 WBC (Bld) 63.3 % 47-70 [facility] Potassium [Moles/Vol] 4.0 mmol/L 3.5-5.1 [facility] Protein [Mass/Vol] 7.3 g/dL 6.4-8.2 [facility] Sodium [Moles/Vol] 142 mmol/L 136-145 [facility] WBC (Bld) [#/Vol] 4.2 10*3/uL 4.4-11.0 [facility] Blood erythrocytes count (nu mber/volume)Ordered By: Dr. Ferrer on 06-02-2022 RBC (Bld) [#/Vol] 3.84 10*6/uL 4.2-5.4 [facility] Blood hemoglobin measurement (mass/volume)Ordered By: Dr. Ferrer on 06-02-2022 Hemoglobin (Bld) [Mass/Vol] 13.2 g/dL 12.0-15.0 [facility] Blood lymphocytes/100 leukoc ytesOrdered By: Dr. Ferrer on 06-02-2022 Lymphocytes/100 WBC (Bld) 25.8 % 19-41 [facility] Blood monocytes/100 leukocyt esOrdered By: Dr. Ferrer on 06-02-2022 Monocytes/100 WBC (Bld) 7.4 % 0-10 [facility] Blood platelet mean volumeOr dered By: Dr. Ferrer on 06-02-2022 Platelet mean volume (Bld) [Entitic vol] 10.3 fL 6.2-12.0 [facility] Determination of erythrocyte mean corpuscular volume (MCV)Ordered By: Dr. Ferrer on 06-02-2022 MCV (RBC) [Entitic vol] 104.4 fL 81-99 [facility] Hematocrit Auto (Bld) [Volum e fraction]Ordered By: Dr. Ferrer on 06-02-2022 Hematocrit (Bld) [Volume fraction] 40.1 % 37-47 [facility] Laboratory - Chemistry and C hemistry - challengeOrdered By: Dr. Ferrer on 06-02-2022 ALP [Catalytic activity/Vol] 93 U/L 45-117 [facility] ALT [Catalytic activity/Vol] 23 U/L 13-56 [facility] CO2 [Moles/Vol] 29.0 mmol/L 21.0-32.0 [facility] Globulin (S) [Mass/Vol] 3.5 g/dL 2.2-4.2 [facility] Urea nitrogen/Creatinine [Mass ratio] 37.2 mg/mg 10-20 [facility] Laboratory - Hematology and Cell countsOrdered By: Dr. Ferrer on 06-02-2022 Erythrocyte distribution width (RBC) [Entitic vol] 51.0 fL 35.1-43.9 [facility] Erythrocyte distribution width (RBC) [Ratio] 13.3 % 11.6-14.6 [facility] Immature granulocytes/100 WBC (Bld) 0.200 % 0.0-0.9 [facility] Comment on above: IG% - Immature Granu locytes (promyelocytes, myelocytes and metamyelocytes) > 1% indicates that a LEFT SHIFT is Present. MCH (RBC) [Entitic mass] 34.4 pg 27.0-32.0 [facility] Nucleated RBC/100 WBC (Bld) [Ratio] 0 % 0-5 [facility] MCHC Auto (RBC) [Mass/Vol]Or dered By: Dr. Ferrer on 06-02-2022 MCHC (RBC) [Mass/Vol] 32.9 g/dL 32-36 [facility] No Panel InformationOrdered By: Dr. Ferrer on 06-02-2022 Estimated GFR (MDRD) Amer 107 mL/min >60 [facility] Comment on above: GFR Calc Estimated GFR (MDRD) Non-Af Amer 89 mL/min >60 [facility] Comment on above: Non- GFR Calc Platelets bldOrdered By: Dr. Ferrer on 06-02-2022 Platelets (Bld) [#/Vol] 222 10*3/uL 150-450 [facility] Serum or plasma albumin shira urement (mass/volume)Ordered By: Dr. Ferrer on 06-02-2022 Albumin [Mass/Vol] 3.8 g/dL 3.2-5.0 [facility] Serum or plasma albumin/glob ulin mass ratioOrdered By: Dr. Ferrer on 06-02-2022 Albumin/Globulin [Mass ratio] 1.1 {ratio} 0.9-2.4 [facility] Serum or plasma calcium shira urement (mass/volume)Ordered By: Dr. Ferrer on 06-02-2022 Calcium [Mass/Vol] 9.1 mg/dL 8.5-10.1 [facility] Serum or plasma creatinine m easurement (mass/volume)Ordered By: Dr. Ferrer on 06-02-2022 Creatinine [Mass/Vol] 0.70 mg/dL 0.55-1.02 [facility] Comment on above: The validity of the calculated GFR & GFRAA in patients over 70 years has not been determined. Clinical correlation is essential. Serum or plasma urea nitroge n measurement (mass/volume)Ordered By: Dr. Ferrer on 06-02-2022 Urea nitrogen [Mass/Vol] 26 mg/dL 7-18 [facility] Thin prep Papanicolaou smear with manual screeningOrdered By: Dr. Ferrer on 06-02-2022 Thin prep Papanicolaou smear with manual screening 25 U/L 15-37 [facility] Thin prep Papanicolaou smear with manual screening 5 5-15 [facility] Absolute lymphocyte counton 04-10-2022 Lymphocytes Auto (Unsp spec) [#/Vol] 1.16 10*3/uL 0.83-4.51 [facility] Work Phone: Basophil percentageon 2021 Basophils/100 WBC (Bld) 0.5 % 0-1 [facility] Work Phone: Bilirubin [Mass/Vol] 0.50 mg/dL 0.20-1.00 [facility] Work Phone: Comment on above: For patients on eltr ombopag therapy, use of [employer] [place] TBIL is not recommended. Chloride [Moles/Vol] 103 mmol/L 98-107 [facility] Work Phone: Eosinophils/100 WBC (Bld) 3.0 % 0-5 [facility] Work Phone: Glucose [Mass/Vol] 108 mg/dL 74-106 [facility] Work Phone: [phone] Comment on above: Fasting Glucose resu lt from 100 to 125 mg/dL suggests IMPAIRED HOMEOSTASIS per A.D.A. criteria. Neutrophils (Bld) [#/Vol] 2.4 10*3/uL 2.0-7.7 [facility] Work Phone: Neutrophils/100 WBC (Bld) 58.7 % 47-70 [facility] Work Phone: Potassium [Moles/Vol] 4.2 mmol/L 3.5-5.1 [facility] Work Phone: Protein [Mass/Vol] 7.4 g/dL 6.4-8.2 [facility] Work Phone: Sodium [Moles/Vol] 137 mmol/L 136-145 [facility] Work Phone: WBC (Bld) [#/Vol] 4.0 10*3/uL 4.4-11.0 [facility] Work Phone: [phone] Blood erythrocytes count (nu mber/volume)on 04-10-2022 RBC (Bld) [#/Vol] 4.06 10*6/uL 4.2-5.4 [facility] Work Phone: Blood hemoglobin measurement (mass/volume)on 04-10-2022 Hemoglobin (Bld) [Mass/Vol] 13.8 g/dL 12.0-15.0 [facility] Work Phone: Blood lymphocytes/100 leukoc yteson 04-10-2022 Lymphocytes/100 WBC (Bld) 28.9 % 19-41 [facility] Work Phone: Blood monocytes/100 leukocyt eson 04-10-2022 Monocytes/100 WBC (Bld) 8.2 % 0-10 [facility] Work Phone: Blood platelet mean volumeon 04-10-2022 Platelet mean volume (Bld) [Entitic vol] 10.3 fL 6.2-12.0 [facility] Work Phone: Determination of erythrocyte mean corpuscular volume (MCV)on 04-10-2022 MCV (RBC) [Entitic vol] 102.7 fL 81-99 [facility] Work Phone: Hematocrit Auto (Bld) [Volum e fraction]on 04-10-2022 Hematocrit (Bld) [Volume fraction] 41.7 % 37-47 [facility] Work Phone: [phone] Laboratory - Chemistry and C hemistry - challengeon 04-10-2022 ALP [Catalytic activity/Vol] 91 U/L 45-117 [facility] Work Phone: ALT [Catalytic activity/Vol] 26 U/L 13-56 [facility] Work Phone: CO2 [Moles/Vol] 29.0 mmol/L 21.0-32.0 [facility] Work Phone: [phone] Globulin (S) [Mass/Vol] 3.5 g/dL 2.2-4.2 [facility] Work Phone: Urea nitrogen/Creatinine [Mass ratio] 21.5 mg/mg 10-20 [facility] Work Phone: Laboratory - Hematology and Cell countson 04-10-2022 Erythrocyte distribution width (RBC) [Entitic vol] 49.1 fL 35.1-43.9 [facility] Work Phone: Erythrocyte distribution width (RBC) [Ratio] 13.2 % 11.6-14.6 [facility] Work Phone: Immature granulocytes/100 WBC (Bld) 0.700 % 0.0-0.9 [facility] Work Phone: [phone] Comment on above: IG% - Immature Granu locytes (promyelocytes, myelocytes and metamyelocytes) > 1% indicates that a LEFT SHIFT is Present. MCH (RBC) [Entitic mass] 34.0 pg 27.0-32.0 [facility] Work Phone: Nucleated RBC/100 WBC (Bld) [Ratio] 0 % 0-5 [facility] Work Phone: MCHC Auto (RBC) [Mass/Vol]on 04-10-2022 MCHC (RBC) [Mass/Vol] 33.1 g/dL 32-36 [facility] Work Phone: No Panel Informationon 04-10 Estimated GFR (MDRD) Amer 100 mL/min >60 [facility] Work Phone: Comment on above: GFR Calc Estimated GFR (MDRD) Non-Af Amer 82 mL/min >60 [facility] Work Phone: Comment on above: Non- GFR Calc Platelets bldon 04-10-2022 Platelets (Bld) [#/Vol] 209 10*3/uL 150-450 [facility] Work Phone: Serum or plasma albumin shira urement (mass/volume)on 04-10-2022 Albumin [Mass/Vol] 3.9 g/dL 3.2-5.0 [facility] Work Phone: Serum or plasma albumin/glob ulin mass ratioon 04-10-2022 Albumin/Globulin [Mass ratio] 1.1 {ratio} 0.9-2.4 [facility] Work Phone: Serum or plasma calcium shira urement (mass/volume)on 04-10-2022 Calcium [Mass/Vol] 9.0 mg/dL 8.5-10.1 [facility] Work Phone: Serum or plasma creatinine m easurement (mass/volume)on 04-10-2022 Creatinine [Mass/Vol] 0.74 mg/dL 0.55-1.02 [facility] Work Phone: Comment on above: The validity of the calculated GFR & GFRAA in patients over 70 years has not been determined. Clinical correlation is essential. Serum or plasma urea nitroge n measurement (mass/volume)on 04-10-2022 Urea nitrogen [Mass/Vol] 16 mg/dL 7-18 [facility] Work Phone: Thin prep Papanicolaou smear with manual screeningon 04-10-2022 Thin prep Papanicolaou smear with manual screening 27 U/L 15-37 [facility] Work Phone: Thin prep Papanicolaou smear with manual screening 5 5-15 [facility] Work Phone: Absolute lymphocyte counton 02-16-2022 Lymphocytes Auto (Unsp spec) [#/Vol] 1.22 10*3/uL 0.83-4.51 [facility] Work Phone: Basophil percentageon 2021 Basophils/100 WBC (Bld) 0.5 % 0-1 [facility] Work Phone: Bilirubin [Mass/Vol] 0.70 mg/dL 0.20-1.00 [facility] Work Phone: [phone] Comment on above: For patients on eltr ombopag therapy, use of [employer] [place] TBIL is not recommended. Chloride [Moles/Vol] 106 mmol/L 98-107 [facility] Work Phone: Eosinophils/100 WBC (Bld) 3.0 % 0-5 [facility] Work Phone: Glucose [Mass/Vol] 102 mg/dL 74-106 [facility] Work Phone: [phone] Comment on above: Fasting Glucose resu lt from 100 to 125 mg/dL suggests IMPAIRED HOMEOSTASIS per A.D.A. criteria. Neutrophils (Bld) [#/Vol] 2.1 10*3/uL 2.0-7.7 [facility] Work Phone: Neutrophils/100 WBC (Bld) 55.7 % 47-70 [facility] Work Phone: Potassium [Moles/Vol] 3.8 mmol/L 3.5-5.1 [facility] Work Phone: Protein [Mass/Vol] 7.2 g/dL 6.4-8.2 [facility] Work Phone: [phone] Sodium [Moles/Vol] 140 mmol/L 136-145 [facility] Work Phone: [phone] WBC (Bld) [#/Vol] 3.7 10*3/uL 4.4-11.0 [facility] Work Phone: Blood erythrocytes count (nu mber/volume)on 02-16-2022 RBC (Bld) [#/Vol] 4.24 10*6/uL 4.2-5.4 [facility]: Blood hemoglobin measurement (mass/volume)on 02-16-2022 Hemoglobin (Bld) [Mass/Vol] 14.2 g/dL 12.0-15.0 [facility] Work Phone: Blood lymphocytes/100 leukoc yteson 02-16-2022 Lymphocytes/100 WBC (Bld) 33.2 % 19-41 [facility] Work Phone: Blood monocytes/100 leukocyt eson 02-16-2022 Monocytes/100 WBC (Bld) 7.3 % 0-10 [facility] Work Phone: Blood platelet mean volumeon 02-16-2022 Platelet mean volume (Bld) [Entitic vol] 10.9 fL 6.2-12.0 [facility] Work Phone: [phone] Determination of erythrocyte mean corpuscular volume (MCV)on 02-16-2022 MCV (RBC) [Entitic vol] 100.7 fL 81-99 [facility] Work Phone: Hematocrit Auto (Bld) [Volum e fraction]on 02-16-2022 Hematocrit (Bld) [Volume fraction] 42.7 % 37-47 [facility] Work Phone: Laboratory - Chemistry and C hemistry - challengeon 02-16-2022 ALP [Catalytic activity/Vol] 96 U/L 45-117 [facility] Work Phone: ALT [Catalytic activity/Vol] 16 U/L 13-56 [facility] Work Phone: CO2 [Moles/Vol] 27.0 mmol/L 21.0-32.0 [facility] Work Phone: Globulin (S) [Mass/Vol] 3.2 g/dL 2.2-4.2 [facility] Work Phone: Urea nitrogen/Creatinine [Mass ratio] 29.2 mg/mg 10-20 [facility] Work Phone: Laboratory - Hematology and Cell countson 02-16-2022 Erythrocyte distribution width (RBC) [Entitic vol] 47.5 fL 35.1-43.9 [facility] Work Phone: Erythrocyte distribution width (RBC) [Ratio] 12.8 % 11.6-14.6 [facility] Work Phone: Immature granulocytes/100 WBC (Bld) 0.300 % 0.0-0.9 [facility] Work Phone: Comment on above: IG% - Immature Granu locytes (promyelocytes, myelocytes and metamyelocytes) > 1% indicates that a LEFT SHIFT is Present. MCH (RBC) [Entitic mass] 33.5 pg 27.0-32.0 [facility] Work Phone: Nucleated RBC/100 WBC (Bld) [Ratio] 0 % 0-5 [facility] Work Phone: MCHC Auto (RBC) [Mass/Vol]on 02-16-2022 MCHC (RBC) [Mass/Vol] 33.3 g/dL 32-36 [facility] Work Phone: No Panel Informationon 02-16 Estimated GFR (MDRD) Amer 110 mL/min >60 [facility] Work Phone: Comment on above: GFR Calc Estimated GFR (MDRD) Non-Af Amer 91 mL/min >60 [facility] Work Phone: Comment on above: Non- GFR Calc Platelets bldon 02-16-2022 Platelets (Bld) [#/Vol] 196 10*3/uL 150-450 [facility] Work Phone: Serum or plasma albumin shira urement (mass/volume)on 02-16-2022 Albumin [Mass/Vol] 4.0 g/dL 3.2-5.0 [facility] Work Phone: Serum or plasma albumin/glob ulin mass ratioon 02-16-2022 Albumin/Globulin [Mass ratio] 1.2 {ratio} 0.9-2.4 [facility] Work Phone: Serum or plasma calcium shira urement (mass/volume)on 02-16-2022 Calcium [Mass/Vol] 9.3 mg/dL 8.5-10.1 [facility] Work Phone: Serum or plasma creatinine m easurement (mass/volume)on 02-16-2022 Creatinine [Mass/Vol] 0.69 mg/dL 0.55-1.02 [facility] Work Phone: Comment on above: The validity of the calculated GFR & GFRAA in patients over 70 years has not been determined. Clinical correlation is essential. Serum or plasma urea nitroge n measurement (mass/volume)on 02-16-2022 Urea nitrogen [Mass/Vol] 20 mg/dL 7-18 [facility] Work Phone: [phone] Thin prep Papanicolaou smear with manual screeningon 02-16-2022 Thin prep Papanicolaou smear with manual screening 21 U/L 15-37 [facility] Work Phone: Thin prep Papanicolaou smear with manual screening 7 5-15 [facility] Work Phone: Absolute lymphocyte counton 12-22-2021 Lymphocytes Auto (Unsp spec) [#/Vol] 1.18 10*3/uL 0.83-4.51 [facility] Work Phone: Basophil percentageon 2021 Basophils/100 WBC (Bld) 0.3 % 0-1 [facility] Work Phone: Bilirubin [Mass/Vol] 1.00 mg/dL 0.20-1.00 [facility] Work Phone: Comment on above: For patients on eltr ombopag therapy, use of [employer] [place] TBIL is not recommended. Chloride [Moles/Vol] 104 mmol/L 98-107 [facility]: Eosinophils/100 WBC (Bld) 2.1 % 0-5 [facility] Work Phone: Glucose [Mass/Vol] 99 mg/dL 74-106 [facility]: Neutrophils (Bld) [#/Vol] 2.2 10*3/uL 2.0-7.7 [facility] Work Phone: Neutrophils/100 WBC (Bld) 58.5 % 47-70 [facility] Work Phone: Potassium [Moles/Vol] 3.7 mmol/L 3.5-5.1 [facility] Work Phone: Protein [Mass/Vol] 7.4 g/dL 6.4-8.2 [facility] Work Phone: Sodium [Moles/Vol] 139 mmol/L 136-145 [facility] Work Phone: WBC (Bld) [#/Vol] 3.7 10*3/uL 4.4-11.0 [facility] Work Phone: Blood erythrocytes count (nu mber/volume)on 12-22-2021 RBC (Bld) [#/Vol] 4.27 10*6/uL 4.2-5.4 [facility] Work Phone: Blood hemoglobin measurement (mass/volume)on 12-22-2021 Hemoglobin (Bld) [Mass/Vol] 14.1 g/dL 12.0-15.0 [facility] Work Phone: Blood lymphocytes/100 leukoc yteson 12-22-2021 Lymphocytes/100 WBC (Bld) 31.6 % 19-41 [facility] Work Phone: Blood monocytes/100 leukocyt eson 12-22-2021 Monocytes/100 WBC (Bld) 7.0 % 0-10 [facility] Work Phone: Blood platelet mean volumeon 05-02-2022 Platelet mean volume (Bld) [Entitic vol] 10.6 fL 6.2-12.0 [facility] Work Phone: [phone] Determination of erythrocyte mean corpuscular volume (MCV)on 12-22-2021 MCV (RBC) [Entitic vol] 101.2 fL 81-99 [facility] Work Phone: Hematocrit Auto (Bld) [Volum e fraction]on 12-22-2021 Hematocrit (Bld) [Volume fraction] 43.2 % 37-47 [facility] Work Phone: [phone] Laboratory - Chemistry and C hemistry - challengeon 12-22-2021 ALP [Catalytic activity/Vol] 92 U/L 45-117 [facility] Work Phone: ALT [Catalytic activity/Vol] 19 U/L 13-56 [facility] Work Phone: CO2 [Moles/Vol] 28.0 mmol/L 21.0-32.0 [facility] Work Phone: Globulin (S) [Mass/Vol] 3.2 g/dL 2.2-4.2 [facility] Work Phone: Urea nitrogen/Creatinine [Mass ratio] 21.7 mg/mg 10-20 [facility] Work Phone: Laboratory - Hematology and Cell countson 12-22-2021 Erythrocyte distribution width (RBC) [Entitic vol] 51.3 fL 35.1-43.9 [facility] Work Phone: Erythrocyte distribution width (RBC) [Ratio] 13.7 % 11.6-14.6 [facility] Work Phone: Immature granulocytes/100 WBC (Bld) 0.500 % 0.0-0.9 [facility] Work Phone: Comment on above: IG% - Immature Granu locytes (promyelocytes, myelocytes and metamyelocytes) > 1% indicates that a LEFT SHIFT is Present. MCH (RBC) [Entitic mass] 33.0 pg 27.0-32.0 [facility] Work Phone: Nucleated RBC/100 WBC (Bld) [Ratio] 0 % 0-5 [facility] Work Phone: MCHC Auto (RBC) [Mass/Vol]on 12-22-2021 MCHC (RBC) [Mass/Vol] 32.6 g/dL 32-36 [facility] Work Phone: No Panel Informationon 12-22 Estimated GFR (MDRD) Amer 101 mL/min >60 [facility] Work Phone: Comment on above: GFR Calc Estimated GFR (MDRD) Non-Af Amer 83 mL/min >60 [facility] Work Phone: Comment on above: Non- GFR Calc Platelets bldon 12-22-2021 Platelets (Bld) [#/Vol] 210 10*3/uL 150-450 [facility] Work Phone: Serum or plasma albumin shira urement (mass/volume)on 12-22-2021 Albumin [Mass/Vol] 4.2 g/dL 3.2-5.0 [facility] Work Phone: Serum or plasma albumin/glob ulin mass ratioon 12-22-2021 Albumin/Globulin [Mass ratio] 1.3 {ratio} 0.9-2.4 [facility] Work Phone: Serum or plasma calcium shira urement (mass/volume)on 12-22-2021 Calcium [Mass/Vol] 9.1 mg/dL 8.5-10.1 [facility] Work Phone: Serum or plasma creatinine m easurement (mass/volume)on 12-22-2021 Creatinine [Mass/Vol] 0.74 mg/dL 0.55-1.02 [facility] Work Phone: Comment on above: The validity of the calculated GFR & GFRAA in patients over 70 years has not been determined. Clinical correlation is essential. Serum or plasma urea nitroge n measurement (mass/volume)on 12-22-2021 Urea nitrogen [Mass/Vol] 16 mg/dL 7-18 [facility] Work Phone: Thin prep Papanicolaou smear with manual screeningon 12-22-2021 Thin prep Papanicolaou smear with manual screening 22 U/L 15-37 [facility] Work Phone: Thin prep Papanicolaou smear with manual screening 7 5-15 [facility] Work Phone: XR Lumbar spine 2 Viewson IMPRESSION: Degenera tive changes as detailed in report. Anterolisthesis of L4 on L5 does not change on flexion and extension and compared to prior examination. No obvious pars interarticularis defect. [employer] Hcm Developer: PSCB Transcribe Date/Time: Sep 23 2021 2:17P Dictated by : BILL PAULINO MD This examination was interpreted and the report reviewed and electronically signed by: BILL PAULINO MD on Sep 23 2021 2:20PM [facility] DIVISION OF RADIOLOGY * * *Final Report* [...] calcification and cholelithiasis. DIVISION OF RADIOLOGY Provider, Clarence Stratton - 09/23/2021 * * *Final Report* * [...] prior examination. No obvious pars interarticularis defect. [employer] Hcm Developer: [employer] Transcribe Date/Time: Sep 23 2021 2:17P Dictated by : BILL PAULINO MD This examination was interpreted and the report reviewed and electronically signed by: BILL PAULINO MD on Sep 23 2021 2:20PM EST [facility] Radiology Study observation (narrative) [facility] XR Lumbar spine 2 ViewsOrder ed By: Ccf Provider on 09-23-2021 [facility] XR Lumbar spine AP and Later al and obliqueon 09-19-2021 IMPRESSION: Lumbar s pine degenerative changes as described above. [employer] Hcm Developer: [employer] Transcribe Date/Time: Sep 19 2021 1:05P Dictated by : MELVIN MOON MD This examination was interpreted and the report reviewed and electronically signed by: MELVIN MOON MD on Sep 19 2021 1:07PM [facility] DIVISION OF RADIOLOGY * * *Final Report* [...] spine are presented. FINDINGS: There are five zbf-wrb-sqdfuuz lumbar vertebrae. No acute fracture seen. There is grade 1 L4 on L5 anterolisthesis. The disc spaces are grossly preserved. There is mild osteophyte formation, with facet arthrosis in the lower lumbar spine. Kissing spine seen on lateral view. Others: There is a 3.3 cm ovoid opacity in the right lateral abdomen, presumably representing gallbladder stone. DIVISION OF RADIOLOGY Provider, [facility] - 09/19/2021 * * *Final Report* * [...] spine are presented. FINDINGS: There are five mwo-eff-onkttds lumbar vertebrae. No acute fracture seen. There [...] Lumbar spine degenerative changes as described above. [employer] Hcm Developer: PSCB Transcribe Date/Time: Sep 19 2021 1:05P Dictated by : MELVIN MOON MD This examination was interpreted and the report reviewed and electronically signed by: MELVIN MOON MD on Sep 19 2021 1:07PM EST [facility] Radiology Study observation (narrative) [facility] XR Lumbar spine AP and Later al and obliqueOrdered By: Ccf Provider on 09-19-2021 [facility] Vital Signs Date Time Vital Sign Value Performing Clinician Facility 05-28-2025 15:10-0400 Body temperature 97 [degF] Dr. Kade Fry MD Work Phone: 5(527)151-312243 [place] [address] 05-28-2025 15:10-0400 Diastolic blood pressure 65 mm[Hg] Dr. Kade Fry MD Work Phone: 6(448)765-500943 [place] [address] 05-28-2025 15:10-0400 Heart rate 56 /min Dr. Kade Fry MD Work Phone: 7(550)579-433943 [place] [address] 05-28-2025 15:10-0400 Respiratory rate 18 /min Dr. Kade Fry MD Work Phone: 4(354)125-290643 [place] [address] 05-28-2025 15:10-0400 SaO2% (BldA) [Mass fraction] 98 % Dr. Kade Fry MD Work Phone: 3(828)212-868843 [place] [address] 05-28-2025 15:10-0400 Systolic blood pressure 158 mm[Hg] Dr. Kade Fry MD Work Phone: 1(479)450-291743 [place] [address] 05-28-2025 12:15-0400 Inhaled oxygen flow rate 2 L/min Dr. Kade Fry MD Work Phone: 8(310)333-879243 [place] [address] 05-28-2025 06:24-0400 Body height 166.[address] Kade Fry MD Work Phone: 4(975)692-385843 [place] [address] 05-28-2025 06:24-0400 Body mass index (BMI) [Ratio] 31 kg/m2 Dr. Kade Fry MD Work Phone: 1(952)608-613243 [place] [address] 05-28-2025 06:24-0400 Body weight [address] Kade Fry MD Work Phone: 9(357)553-644543 [place] [address] 05-03-2025 13:36-0400 Body height 154.[address] Kade Fry MD Work Phone: 3(154)333-305143 [place] [address] 05-03-2025 13:36-0400 Body mass index (BMI) [Ratio] 36.2 kg/m2 Dr. Kade Fry MD Work Phone: 9(073)974-820443 [place] [address] 05-03-2025 13:36-0400 Body weight 87.[address] Kade Fry MD Work Phone: 4(112)960-731243 [place] [address] 05-03-2025 13:36-0400 Diastolic blood pressure 84 mm[Hg] Dr. Kade Fry MD Work Phone: 2(654)957-807443 [place] [address] 05-03-2025 13:36-0400 Heart rate 67 /min Dr. Kade Fry MD Work Phone: 8(435)910-920243 [place] [address] 05-03-2025 13:36-0400 Respiratory rate 17 /min Dr. Kade Fry MD Work Phone: 9(546)765-892443 [place] [address] 05-03-2025 13:36-0400 SaO2% (BldA) [Mass fraction] 97 % Dr. Kade Fry MD Work Phone: 2(146)723-204743 [place] [address] 05-03-2025 13:36-0400 Systolic blood pressure 172 mm[Hg] Dr. Kade Fry MD Work Phone: 6(733)579-819443 [place] [address] 02-12-2025 11:23-0400 Body temperature 97.8 [degF] Dr. Kade Fry MD Work Phone: 1(827)694-120543 [place] [address] 02-12-2025 11:23-0400 Diastolic blood pressure 68 mm[Hg] Dr. Kade Fry MD Work Phone: 4(127)203-412543 [place] [address] 02-12-2025 11:23-0400 Heart rate 53 /min Dr. Kade Fry MD Work Phone: 5(791)864-937743 [place] [address] 02-12-2025 11:23-0400 Respiratory rate 16 /min Dr. Kade Fry MD Work Phone: 0(079)698-632743 [place] [address] 02-12-2025 11:23-0400 SaO2% (BldA) [Mass fraction] 98 % Dr. Kade Fry MD Work Phone: 3(818)714-309043 [place] [address] 02-12-2025 11:23-0400 Systolic blood pressure 123 mm[Hg] Dr. Kade Fry MD Work Phone: [facility] 02-12-2025 09:26-0400 Body height 154.[address] Kade Fry MD Work Phone: [facility] 02-12-2025 09:26-0400 Body mass index (BMI) [Ratio] 36.1 kg/m2 Dr. Kade Fry MD Work Phone: [facility] 02-12-2025 09:26-0400 Body weight 86.[address] Kade Fry MD Work Phone: [facility] 09-21-2024 09:29-0500 Diastolic blood pressure 78 mm[Hg] Kade Fry MD Work Phone: [facility] 09-21-2024 09:29-0500 Systolic blood pressure 138 mm[Hg] Kade Fry MD Work Phone: [facility] 09-21-2024 08:36-0500 Body height 156.2 cm Kade Fry MD Work Phone: [facility] 09-21-2024 08:36-0500 Body mass index (BMI) [Ratio] 36.21 kg/m2 Kade Fry MD Work Phone: [facility] 09-21-2024 08:36-0500 Body weight 88.36 kg Kade Fry MD Work Phone: [facility] 09-21-2024 08:36-0500 Heart rate 58 /min Kade Fry MD Work Phone: [facility] 09-21-2022 09:12-0500 Body height 157 cm Ena Aguiar PA-C Work Phone: [facility] 09-21-2022 09:12-0500 Body weight 87.73 kg Ena Aguiar PA-C Work Phone: [facility] 09-21-2022 09:12-0500 Diastolic blood pressure 80 mm[Hg] Ena Aguiar PA-C Work Phone: [facility] 09-21-2022 09:12-0500 Heart rate 68 /min Ena Aguiar PA-C Work Phone: [facility] 09-21-2022 09:12-0500 Respiratory rate 16 /min Ena Aguiar PA-C Work Phone: [facility] 09-21-2022 09:12-0500 Systolic blood pressure 132 mm[Hg] Ena Aguiar PA-C Work Phone: [facility] 06-18-2022 10:05-0400 Body temperature 97.7 [degF] Chapis Sherley [employer] DIRECTOR[employer]CE [employer]BER Work Phone: [facility] 06-18-2022 10:05-0400 Body weight 87.54 kg Chapis Sherley [employer] DIRECTOR.PIECE JOBBER Work Phone: [facility] 06-18-2022 10:05-0400 Diastolic blood pressure 88 mm[Hg] Chapis Sherley [employer] DIRECTOR.PIECE JOBBER Work Phone: [facility] 06-18-2022 10:05-0400 Heart rate 80 /min Chapis Sherley [employer] DIRECTOR.PIECE JOBBER Work Phone: [facility] 06-18-2022 10:05-0400 Respiratory rate 18 /min Chapis Sherley [employer] DIRECTOR.PIECE JOBBER Work Phone: [facility] 06-18-2022 10:05-0400 SaO2% (BldA) [Mass fraction] 98 % Chapis Sherley [employer] DIRECTOR.PIECE [employer]OBBER Work Phone: [facility] 06-18-2022 10:05-0400 Systolic blood pressure 162 mm[Hg] Chapis Sherley [employer] DIRECTOR.[employer]ECE [employer]OBBER Work Phone: [facility] 11-12-2021 10:03-0400 Body height 154.9 cm Sayra Matiasf PA-C Work Phone: [facility] 11-12-2021 10:03-0400 Body temperature 98.01 [degF] Sayrasilvana Matiasf PA-C Work Phone: [facility] 11-12-2021 10:03-0400 Body weight 84.37 kg Sayra Katey PA-C Work Phone: [facility] 11-12-2021 10:03-0400 Diastolic blood pressure 78 mm[Hg] Sayra [place] PA-C Work Phone: [facility] 11-12-2021 10:03-0400 Heart rate 72 /min Sayra Katey PA-C Work Phone: [facility] 11-12-2021 10:03-0400 SaO2% (BldA) [Mass fraction] 96 % Sayra [place] PA-C Work Phone: [facility] 11-12-2021 10:03-0400 Systolic blood pressure 122 mm[Hg] Sayra [place] PA-C Work Phone: [facility] Encounters Encounter Date Encounter Type Care Provider Facility Start: 06-20-2025 Encounter for other preprocedural examination Tavon Beauchamp [facility] Start: 06-06-2025 End: 06-06-[address] Tavon Beauchamp MD -[facility] Work Phone: Start: 06-06-2025 End: 06-06-[address] Kade Fry MD Work Phone: -[facility] Start: 05-28-2025 ambulatory Tavon Beauchamp Facility: [facility] Start: 05-28-2025 Non-patient / Non-visit Dr. Fatoumata Beauchamp MD -[facility] Start: 05-28-2025 End: 05-28-2025 Admission to same day surgery center Dr. Tavon Beauchamp [facility] Start: 05-28-2025 End: 05-28-[address] Kade Fry MD Work Phone: [facility] Start: 05-15-2025 Non-patient / Non-visit Dr. Yari PEARSON -[facility] Work Phone: Start: 05-04-2025 End: 05-07-2025 Chart abstracting Ree Ng MA [facility] Medicine [facility] Comment on above: ext document (Surger y note); Outside Ugnm-Psy-JJN Ordered Start: 05-03-2025 End: 05-03-[address] Kade Fry MD Work Phone: -Laboratory Specimen Start: 05-03-2025 End: 05-03-[address] Tavon Beauchamp MD -[facility]atory Specimen Work Phone: Start: 05-03-2025 End: 05-03-[address] Tavon Beauchamp MD -[facility] Work Phone: Start: 05-03-2025 End: 05-03-[address] Kade Fry MD Work Phone: -[facility] Start: 05-03-2025 End: 05-03-2025 ambulatory Tavon Beauchamp Facility:[facility] Start: 04-06-2025 End: 04-06-2025 Patient encounter procedure Zulma AGARWAL -[facility] Work Phone: Start: 04-06-2025 End: 04-06-[address] Kade Fry MD Work Phone: -[facility] Start: 04-02-2025 End: 04-02-[address] Kade Fry MD Work Phone: -Cat Scan [facility] Start: 04-02-2025 End: 04-02-2025 Patient encounter procedure Zulma AGARWAL -Cat Scan [facility] Work Phone: Start: 04-02-2025 End: 04-02-2025 ambulatory Kade Fry Facility:[facility] Start: 03-27-2025 End: 03-27-[address] Kade Fry MD Work Phone: -[facility]atory [facility] Start: 03-27-2025 End: 03-27-[address] Dina Ferrer MD -[facility] Work Phone: Start: 03-27-2025 End: 03-27-2025 ambulatory Kade Fry Facility:[facility] Start: 03-09-2025 End: 03-09-2025 Patient encounter procedure Zulma AGARWAL -[facility] Work Phone: Start: 03-09-2025 End: 03-09-[address] Kade Fry MD Work Phone: -[facility] Start: 02-12-2025 End: 02-12-2025 Chart abstracting Kade Fry MD Work Phone: [facility] [place] Comment on above: Outside Testing (EGD , Colonoscopy, and GI OV note) Start: 02-12-2025 Non-patient / Non-visit Darrin Garcia nd, DO -[facility] Start: 02-12-2025 End: 02-12-2025 Admission to same day surgery center Darrin Lozoya DO -Endoscopy Work Phone: Start: 02-12-2025 End: 02-12-[address] Kade Fry MD Work Phone: [facility] Work Phone: Start: 01-19-2025 End: 01-19-2025 Refill Kade Fry MD Work Phone: [facility] Comment on above: Refill Request Start: 12-26-2024 End: 12-26-[address] Kade Fry MD Work Phone: [facility] Work Phone: Start: 12-26-2024 End: 12-26-[address] Dina Ferrer MD -Laboratory, [facility] Work Phone: Start: 12-26-2024 End: 12-26-2024 ambulatory Dina Ferrer Facility:[facility] Start: 12-19-2024 End: 12-19-2024 Chart abstracting Kade Fry MD Work Phone: [facility] Comment on above: Outside Gastric Empt radha Study Start: 12-18-2024 End: 12-18-2024 Patient encounter [facility] Start: 12-18-2024 End: 12-18-[address]arin Lozoya Facility:[facility] Start: 12-05-2024 End: 12-06-2024 Follow-up encounter Kade Fry MD Work Phone: [facility] Start: 12-05-2024 End: 12-05-2024 ambulatory KADE FRY Facility:[facility] Start: 12-05-2024 End: 12-05-2024 Subsequent hospital visit by physician Diagnostic Mammo [facility] Comment on above: Abnormal mammogram [ R92.8] Start: 12-01-2024 End: 12-01-2024 Chart abstracting Kade Fry MD Work Phone: [facility] [place] Comment on above: Outside Oqin-Qna-ZXK Ordered Start: 11-29-2024 End: 11-29-2024 Chart abstracting Feliciano Leahy MA [facility] Comment on above: Results (Outside fac ility labs /) Start: 11-27-2024 End: 11-27-2024 ambulatory MANOJ GAMINO Facility:[facility] Start: 11-27-2024 End: 11-27-2024 Patient encounter procedure Manoj Gamino MD Work Phone: Orthopaedics Comment on above: Carpal tunnel syndro me of left wrist (Primary Dx); Trigger thumb, left thumb Start: 11-27-2024 End: 11-27-[address] Kade Fry MD Work Phone: [facility] Work Phone: Start: 11-27-2024 End: 11-27-2024 Patient encounter procedure Darrinmichelle Lozoya DO -Laboratory Work Phone: Start: 11-27-2024 End: 11-27-2024 Patient encounter procedure Darrin Lozoya DO -[facility] Work Phone: Start: 11-27-2024 End: 11-27-2024 ambulatory Kade Fry Facility:[facility] Start: 11-27-2024 End: 11-27-2024 ambulatory Darrin Lozoya Facility:[facility] Start: 11-23-2024 End: 11-23-2024 ambulatory CHETAN BHAGAT Facility:[facility] Start: 11-23-2024 End: 11-23-2024 Patient encounter procedure Chetan Guanakomatheus Work Phone: Podiatry Comment on above: Open wound of toe, i nitial encounter (Primary Dx) Start: 11-15-2024 End: 11-15-2024 Chart abstracting Feliciano Leahy MA Family Medicine [facility] Comment on above: Consult (Outside Mike rology /) Start: 11-15-2024 End: 11-15-2024 Telephone encounter Isidra Andrade MD Work Phone: Mammography Comment on above: Mammogram Result Carrington l Back (right breast diag mamm and us cb per ym) Start: 11-14-2024 ambulatory Manoj Gamino Facility :[facility] Start: 11-14-2024 Non-patient / Non-visit Dr. Audrey Bello MD -[facility]- Start: 11-14-2024 End: 11-14-[address] Kade Fry MD Work Phone: [facility] Work Phone: Start: 11-14-2024 End: 11-14-[address] Manoj Gamino MD -Pulmonary Services/Neurology Work Phone: Start: 11-13-2024 End: 11-15-2024 Follow-up encounter Kade Fry MD Work Phone: [facility] [place] Comment on above: Results Start: 11-13-2024 End: 11-14-2024 ambulatory KADE FRY Facility:[facility] Start: 11-13-2024 End: 11-13-2024 Subsequent hospital visit by physician Screen Mammo [facility] Comment on above: Encounter for screen ing mammogram for breast cancer [Z12.31] Start: 10-31-2024 End: 10-31-2024 ambulatory CHETAN BHAGAT Facility:[facility] Start: 10-31-2024 End: 10-31-2024 Patient encounter procedure Chetan Bhagat Work Phone: Podiatry Comment on above: Onychodystrophy (Christianne tova Dx) Start: 10-17-2024 End: 10-18-2024 Follow-up encounter Chetan Bhagat Work Phone: Podiatry Start: 10-17-2024 End: 10-17-2024 ambulatory KADE FRY Facility:[facility] Start: 10-16-2024 End: 10-16-2024 ambulatory KADE FRY Facility:[facility] Start: 10-16-2024 End: 10-16-2024 Patient encounter procedure Chetan Mujicamatheus Work Phone: Podiatry Comment on above: Onychodystrophy (Christianne tova Dx); Pain in toes of both feet; Diminished pulses in lower extremity Start: 10-16-2024 End: 10-16-2024 ambulatory KAED FRY Facility:[facility] Start: 10-16-2024 End: 10-16-2024 Patient encounter procedure Manoj Gamino MD Work Phone: Orthopaedics Comment on above: 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 Dina Ferrer MD -Laboratory, [facility] Work Phone: Start: 10-03-2024 End: 10-03-2024 ambulatory Dina Ferrer Facility:[facility] Start: 09-25-2024 End: 09-25-2024 Refill Kade Fry MD Work Phone: [facility] Comment on above: Refill Request Start: 09-21-2024 Patient encounter procedure KADE FRY [facility] Start: 09-21-2024 End: 09-21-2024 Patient encounter procedure Kade Fry MD Work Phone: Family [facility] Comment on above: Encounter for Medica re [...] for colon cancer Start: 09-21-2024 End: 09-21-2024 ambulatory KADE FRY Facility:[facility] Start: 09-14-2024 End: 09-14-2024 ambulatory KADE FRY Facility:[facility] Start: 08-11-2024 End: 08-11-2024 Telephone encounter Kade Fry MD Work Phone: [facility] Comment on above: Medication Problem; Orders Start: 07-14-2024 End: 07-14-20[facility] Start: 05-22-2024 End: 05-22-2024 Chart abstracting Kade Fry MD Work Phone: [facility] Comment on above: Outside Yvdk-Vwd-PEG Ordered Start: 04-17-2024 End: 04-17-2024 Chart abstracting Feliciano Leahy MA Family [facility] Comment on above: Results (Outside lab s /) Start: 02-11-2024 ambulatory Kade apodaca MD Work Phone: [facility] Comment on above: Allied Health Visit (Medication Adherence Outreach/) Start: 01-21-2024 Chart abstracting [facility] Start: 01-18-2024 Refill Kade apodaca MD Work Phone: [facility] Comment on above: Refill Request Start: 12-13-2023 Telephone encounter [facility] Comment on above: Medication Problem Start: 11-12-2023 Documentation procedure Mammog yvonne Coordinator [facility] Start: 11-12-2023 Letter encounter Mammography Coordinator [facility] Department Start: 11-12-2023 Telephone encounter Kade Fry MD Work Phone: [facility] Comment on above: Results Start: 11-12-2023 End: 11-12-2023 Subsequent hospital visit by physician Screen Mammo [facility] Comment on above: Encounter for screen ing mammogram for breast cancer [Z12.31] Start: 10-22-2023 End: 10-22-2023 ambulatory [facility] Work Phone: Start: 10-22-2023 End: 10-22-2023 Patient encounter procedure [facility] Work Phone: Start: 10-06-2023 Telephone encounter Kade Fry MD Work Phone: [facility] Comment on above: Bone Density Test Qu estion Start: 09-21-2023 Patient encounter procedure Kade Fry MD Work Phone: [facility] Work Phone: Start: 08-24-2023 End: 08-24-2023 Subsequent hospital visit by physician Xr [facility] Work Phone: Radiology Comment on above: Cat bite of left lofton d, initial encounter [S61.452A, W55.01XA] Start: 07-27-2023 Chart abstracting Kade contreras MD Work Phone: [facility] Comment on above: Outside Jeim-Rji-GVE Ordered Start: 07-23-2023 End: 07-23-2023 ambulatory [facility] Work Phone: Start: 07-23-2023 End: 07-23-2023 Patient encounter procedure [facility] Work Phone: Start: 07-21-2023 Refill Kade apodaca MD Work Phone: [facility] Comment on above: Refill Request Start: 05-07-2023 Chart abstracting Kade contreras MD Work Phone: [facility] Comment on above: Outside Vlom-Wfa-LHE Ordered Start: 05-07-2023 End: 05-07-2023 ambulatory [facility] Work Phone: Start: 05-07-2023 End: 05-07-2023 Patient encounter procedure [facility] Work Phone: Start: 02-05-2023 End: 02-05-2023 ambulatory [facility] Work Phone: Start: 02-05-2023 End: 02-05-2023 Patient encounter procedure [facility] Start: 01-26-2023 ambulatory Addie ([facility] Lexy [facility] Comment on above: Population Health Na vigation Outreach ([employer] Gaps) Start: 11-26-2022 Chart abstracting Kade contreras MD Work Phone: [facility] Comment on above: Results, Lab Start: 11-20-2022 End: 11-20-2022 ambulatory [facility] Work Phone: Start: 11-20-2022 End: 11-20-2022 Patient encounter procedure [facility] Start: 11-09-2022 Documentation procedure Mammog yvonne Coordinator [facility] Start: 11-09-2022 Letter encounter Mammography Coordinator [facility] Department Start: 11-09-2022 Telephone encounter Addie mondragon APRN.CNP Work Phone: [facility] Comment on above: Results Start: 11-06-2022 End: 11-06-2022 Subsequent hospital visit by physician Screen Mammo [facility] Comment on above: Encounter for screen ing mammogram for breast cancer [Z12.31] Start: 09-21-2022 End: 09-21-2022 Patient encounter procedure Ena Aguiar PA-C Work Phone: [facility] Comment on above: Medicare annual well ness visit, initial (Primary Dx); Advance directive discussed with patient; Essential hypertension; Mixed hyperlipidemia; GERD without esophagitis; Inflammatory arthritis; Fibromyalgia; Cassidy's thyroiditis; Mixed stress and urge urinary incontinence; Elevated glucose; Encounter for screening mammogram for breast cancer; Screening for colon cancer; Onychomycosis Start: 09-08-2022 Telephone encounter Kade Fry MD Work Phone: [facility] Comment on above: Lab Orders Start: 08-26-2022 End: 08-26-2022 ambulatory [facility] Work Phone: Start: 08-26-2022 End: 08-26-2022 Patient encounter procedure [facility] Start: 08-05-2022 Refill Kade apodaca MD Work Phone: [facility] Comment on above: Refill Request Start: 06-18-2022 End: 06-18-2022 Patient encounter procedure Chapis Lepe [facility] Work Phone: [facility] Comment on above: Tick bite of right t high, initial encounter (Primary Dx) Start: 06-02-2022 End: 06-02-2022 Patient encounter procedure [facility] Start: 04-10-2022 End: 04-10-2022 ambulatory [facility] Work Phone: Start: 04-10-2022 End: 04-10-2022 Patient encounter procedure [facility] Start: 02-16-2022 End: 02-16-2022 Patient encounter procedure [facility] Start: 12-22-2021 Chart abstracting Kade contreras MD Work Phone: [facility] Comment on above: external labs Start: 12-22-2021 End: 12-22-2021 Patient encounter procedure [facility] Start: 11-12-2021 End: 11-12-2021 Patient encounter procedure Sayra Del Toro EDIS Work Phone: General Surgery Comment on above: Tortuous colon (Prim adriel Dx); Internal hemorrhoids; Diverticulosis; Dysphagia, unspecified type Start: 09-23-2021 End: 09-23-2021 Subsequent hospital visit by physician [facility] Work Phone: Radiology Comment on above: Spondylolisthesis at L4-L5 level [M43.16] Start: 09-19-2021 Patient encounter procedure Sayra Del Toro EDIS Work Phone: [facility] Work Phone: Start: 09-19-2021 End: 09-19-2021 Subsequent hospital visit by physician [facility] Work Phone: Radiology Comment on above: Chronic low back charles n without sciatica, unspecified back pain laterality [M54.50, G89.29] Start: 10-29-2020 End: 10-29-2020 Discharged [facility]-Immunizations Procedures Date Procedure Procedure Detail Performing Clinician Start: 05-28-[address] Kade Fry MD Work Phone: Start: 05-03-2025 Methicillin resistan t Staphylococcus aureus [...] Work Phone: Comment on above: Performed at: [address] [id number] Director: Eliazar Posadas PhD, Phone: [phone] at: [facility] Lab[address] [id number] Director: Praveen Khan MD, Phone: [phone] Start: 11-13-2024 Screening digital br east tomosynthesis bi Kade Fry MD Work Phone: Start: 10-16-2024 Injection 1 tendon sheath/ligament aponeurosis Manoj Gamino MD Work Phone: Start: 10-03-2024 Measurement of renal function Dr. Kade Fry MD Work Phone: Comment on above: GFR Calc Start: 09-21-2024 Adult depression scr eening assessment Kade Fry MD Work Phone: Start: 09-14-2024 Lipid 1996 panel - S fabiano or Plasma Kade Fry MD Work Phone: Start: 11-12-2023 Screening mammograph y bi 2-view breast inc cad Ena Aguiar PA-C Work Phone: Start: 09-20-2023 Lipid 1996 panel - S [...] examinati on of knee Start: 10-29-2021 Colonoscopy Sayrasilvana toribio PA-C Work Phone: Start: 10-07-2021 Mammography Sayrasilvana toribio PA-C Work Phone: Start: 09-23-2021 Radex spine lumbosac ral 2/3 views Kade Fry MD Work Phone: Start: 09-19-2021 Radex spine lumbosac ral minimum 4 views Kade Fry MD Work Phone: Plan of Treatment Date Care Activity Detail Author Start: 08-24-2033 Urine microalbumin profile DTaP,Tdap,Td Vaccine (2 - Td or Tdap) [facility] Start: 09-14-2029 Lipid panel Lipid Screening [facility] Start: 09-20-2028 Lipid panel Lipid Screening [facility] Start: 02-13-2028 Screening for malignant neoplasm of colon [facility] Start: 09-14-2027 Diabetes Screening Diabetes Screening [facility] Start: 09-10-2027 Lipid 1996 panel - Serum or Plasma Lipid Screening [facility] Start: 09-10-2027 LIPID SCREEN LIPID SCREEN [facility] Start: 09-20-2026 Diabetes Screening Diabetes Screening [facility] Start: 09-02-2026 LIPID SCREEN LIPID SCREEN [facility] Start: 11-13-2025 Screening for malignant neoplasm of breast Mammogram Screening [facility] Start: 09-21-2025 Annual PCP Team Chronic Disease Visit Annual PCP Team Chronic Disease Visit [facility] Start: 09-21-2025 Anxiety Screening Anxiety Screening [facility] Start: 09-21-2025 BP Controlled (<130/80) BP Controlled (<130/80) [facility] Start: 09-21-2025 Depression Screening Depression Screening [facility] Start: 09-21-2025 DIABETES SCREEN DIABETES SCREEN [facility] Start: 09-21-2025 Diabetes Screening Diabetes Screening [facility] Start: 09-21-2025 End: 09-21-2025 Patient encounter procedure [facility] [place] Comment on above: medicare wellness Start: 08-23-2025 Screening for malignant neoplasm of colon Colorectal Cancer Screening [facility] Comment on above: Postponed from [...] Routine Abnormal mammogram Expected: 06/06/2025, Expires: 01/04/2026 [facility] Work Phone: Comment on above: Expected: 06/06/2025, Expires: Start: 05-28-2025 Anesthesia intraperitoneal lower abd w/laps nos ANESTH SURG LOWER ABDOMEN [facility] Start: 05-28-2025 RPR AA HRN 1ST 3-10 RDC RPR AA HRN 1ST 3-10 RDC [facility] Start: 05-28-2025 Patient discharge [facility] Start: 05-03-2025 Methicillin resistant Staphylococcus aureus screening test [facility] Start: 05-03-2025 Nasal Screen MRSA/MSSA Nasal Screen MRSA/MSSA [facility] Start: 04-23-2025 Influenza vaccination Influenza Vaccine (#1) [facility] Start: 04-02-2025 Computed tomography of abdomen and pelvis with contrast Abdomen/Pelvis WITH Contrast [facility] Start: 04-02-2025 CT Abdomen and Pelvis W contrast IV [facility] Start: 02-12-2025 Colonoscopy DIAGNOSTIC COLONOSCOPY [facility] Start: 02-12-2025 Colonoscopy flx dx w/collj spec when pfrmd DIAGNOSTIC COLONOSCOPY [facility] Start: 02-12-2025 Egd transoral biopsy single/multiple EGD BIOPSY SINGLE/MULTIPLE [facility] Start: 02-12-2025 Patient discharge [facility] Start: 12-08-2024 Covid-19 Vaccine () Covid-19 Vaccine () [facility] Comment on above: Postponed from 08/04/2024 (Postponed - N ot Clinically Indicated) Start: 12-08-2024 Covid-19 Vaccine (6 - Pfizer risk ) Covid-19 Vaccine (6 - Pfizer risk ) [facility] Start: 12-05-2024 End: 12-05-2024 Patient encounter procedure Mammogram Comment on above: right breast diag mamm and us cb per Comp- RT CB Start: 11-27-2024 End: 11-27-2024 Patient encounter procedure 11/27/2024 2:30 PM EDT Office Visit Orthopaedics [address] [place] [address] Manoj Gamino MD [address] [place] [address] folllow up for results Orthopaedics Comment on above: folllow up for results Start: 11-23-2024 End: 11-23-2024 Patient encounter procedure Podiatry Comment on above: 3 wk follow up Start: 11-13-2024 End: 11-13-2024 Patient encounter procedure 11/13/2024 10:10 AM EDT Appointment Mammogram [address] [place] [address] Encounter for screening mammogram for breast cancer [Z12.31] Mammogram Comment on above: Encounter for screening mammogram for br east cancer [Z12.31] Start: 11-11-2024 Screening for malignant neoplasm of breast Mammogram Screening [facility] Start: 10-31-2024 End: 10-31-2024 Patient encounter procedure 10/31/2024 10:45 AM EDT Office Visit Podiatry [address] [place] [address] Chetan Bhagat [address] [address] Remove 3 toenails -- make appt 45 min per nurse. Podiatry Comment on above: Remove 3 toenails -- make appt 45 min pe r nurse. Start: 10-17-2024 End: 10-17-2024 Patient encounter procedure 10/17/2024 10:00 AM EST Office Visit Vasculary Surgery [address] [place] [address] : Pain in toes of both feet [M79.674, M79.675]; Onychodystrophy [L60.3]; Diminished pulses in lower extremity [R09.89] [facility] Comment on above: : Pain in toes of both feet [M79.674, M7 9.675]; Onychodystrophy [L60.3]; Diminished pulses in lower extremity [R09.89] Start: 10-16-2024 End: 10-16-2024 Patient encounter procedure 10/16/2024 10:45 AM EST Office Visit Podiatry [address] [place] [address] Chetan Bhagat [address] [address] Pain in toes of both feet [M79.674, M79.675] Podiatry Comment on above: Pain in toes of both feet [M79.674, M79. 675] Start: 10-16-2024 End: 10-16-2024 Patient encounter procedure 10/16/2024 9:15 AM EST Office Visit Orthopaedics [address] [place] [address] Manoj Gamino MD [address] [place] [address] Numbness and tingling in left hand [R20.0, R20.2]; Trigger finger of left thumb [M65.312] Orthopaedics Comment on above: Numbness and tingling in left hand [R20. 0, R20.2]; Trigger finger of left thumb [M65.312] Start: 10-06-2024 DIABETES SCREEN DIABETES SCREEN [facility] Start: 09-21-2024 Annual PCP Team Chronic Disease Visit Annual PCP Team Chronic Disease Visit [facility] Start: 09-21-2024 BP Controlled (<130/80) BP Controlled (<130/80) [facility] Start: 09-21-2024 Covid-19 Vaccine () Covid-19 Vaccine () [facility] Comment on above: Postponed from 04/23/2023 (Declined at t his time) Start: 09-21-2024 End: 09-21-2024 Patient encounter procedure 09/21/2024 8:40 AM EST Office Visit [facility] [place] [address] [place] [address] Kade Fry MD [address] [place] [address] Medicare Wellness Family [facility] Comment on above: Medicare Wellness Start: 09-06-2024 Screening for malignant neoplasm of colon Colorectal Cancer Screening [facility] Comment on above: Postponed from 1999 (Declined at t his time) Start: 08-11-2024 End: 11-10-2024 CBC W Auto Differential panel - Blood COMPLETE BLOOD COUNT AND DIFFERENTIAL Lab Routine Cassidy's thyroiditis Medication management Expected: 08/11/2024, Expires: 11/10/2024 [facility] Comment on above: Expected: 08/11/2024, Expires: Start: 08-11-2024 End: 11-10-2024 Cobalamin (Vitamin B12) [Mass/volume] in Serum or Plasma VITAMIN B12 Lab Routine GERD without esophagitis Medication management Expected: 08/11/2024, Expires: 11/10/2024 [facility] Work Phone: Comment on above: Expected: 08/11/2024, Expires: Start: 08-11-2024 End: 11-10-2024 Comprehensive metabolic 2000 panel - Serum or Plasma COMPREHENSIVE METABOLIC PANEL Lab Routine Essential hypertension Mixed hyperlipidemia Elevated blood sugar Expected: 08/11/2024, Expires: 11/10/2024 [facility] Comment on above: Expected: 08/11/2024, Expires: Start: 08-11-2024 End: 11-10-2024 Hemoglobin A1c in Blood HEMOGLOBIN A1C Lab Routine Elevated blood sugar Expected: 08/11/2024, Expires: 11/10/2024 [facility] Comment on above: Expected: 08/11/2024, Expires: Start: 08-11-2024 End: 11-10-2024 LIPID PANEL, NONFASTING LIPID PANEL, NONFASTING Lab Routine Essential hypertension Mixed hyperlipidemia Expected: 08/11/2024, Expires: 11/10/2024 [facility] Comment on above: Expected: 08/11/2024, Expires: Start: 08-11-2024 End: 11-10-2024 Magnesium [Mass/volume] in Serum or Plasma MAGNESIUM Lab Routine GERD without esophagitis Medication management Expected: 08/11/2024, Expires: 11/10/2024 [facility] Comment on above: Expected: 08/11/2024, Expires: Start: 08-11-2024 End: 11-10-2024 Thyrotropin [Units/volume] in Serum or Plasma THYROID STIMULATING HORMONE Lab Routine Cassidy's thyroiditis Expected: 08/11/2024, Expires: 11/10/2024 [facility] Comment on above: Expected: 08/11/2024, Expires: Start: 08-11-2024 End: 11-10-2024 Urinalysis complete panel - Urine URINALYSIS, WITH MICROSCOPIC Lab Routine Essential hypertension Mixed hyperlipidemia Expected: 08/11/2024, Expires: 11/10/2024 [facility] Comment on above: Expected: 08/11/2024, Expires: Start: 04-23-2024 Covid-19 Vaccine () Covid-19 Vaccine () [facility] Start: 04-23-2024 Covid-19 Vaccine () Covid-19 Vaccine () [facility] Start: 04-23-2024 Influenza vaccination Influenza Vaccine (#1) [facility] Start: 11-07-2023 Mammography [facility] Start: 11-07-2023 Screening for malignant neoplasm of breast Mammogram Screening [facility] Start: 09-21-2023 ANNUAL PCP TEAM CHRONIC DISEASE VISIT ANNUAL PCP TEAM CHRONIC DISEASE VISIT [facility] Start: 09-21-2023 BP CONTROLLED (<130/80) BP CONTROLLED (<130/80) [facility] Start: 08-23-2023 Behavioral Health Screening Behavioral Health Screening [facility] Start: 04-23-2023 Covid-19 Vaccine () Covid-19 Vaccine () [facility] Start: 04-23-2023 Influenza vaccination Influenza Vaccine (#1) [facility] Start: 11-12-2022 BP CONTROLLED (<130/80) BP CONTROLLED (<130/80) [facility] Start: 10-29-2022 Colonoscopy COLONOSCOPY [facility] Start: 10-29-2022 COLORECTAL CANCER SCREENING COLORECTAL CANCER SCREENING [facility] Start: 10-29-2022 Screening for malignant neoplasm of colon Colonoscopy [facility] Start: 10-07-2022 Mammography MAMMOGRAM [facility] Start: 09-19-2022 ANNUAL PCP TEAM CHRONIC DISEASE VISIT ANNUAL PCP TEAM CHRONIC DISEASE VISIT [facility] Start: 09-19-2022 BP CONTROLLED (<130/80) BP CONTROLLED (<130/80) [facility] in Start: 09-19-2022 Urine microalbumin profile DTAP,TDAP,TD (1 - Tdap) [facility] Comment on above: Postponed from 1973 (Insurance Cov erage) Start: 09-09-2022 End: 11-09-2022 CBC W Auto Differential panel - Blood CBC + DIFF Lab Routine Essential hypertension Mixed hyperlipidemia Cassidy's thyroiditis Medication management Expected: 09/09/2022, Expires: 11/09/2022 [facility] Work Phone: Comment on above: Expected: 09/09/2022, Expires: 3 Start: 09-09-2022 End: 11-09-2022 Comprehensive metabolic 2000 panel - Serum or Plasma COMP METABOLIC PANEL Lab Routine Essential hypertension Expected: 09/09/2022, Expires: 11/09/2022 [facility] Work Phone: Comment on above: Expected: 09/09/2022, Expires: 3 Start: 09-09-2022 End: 11-09-2022 Lipid 1996 panel - Serum or Plasma LIPID PANEL BASIC Lab Routine Mixed hyperlipidemia Expected: 09/09/2022, Expires: 11/09/2022 [facility] Work Phone: Comment on above: Expected: 09/09/2022, Expires: 3 Start: 09-09-2022 End: 11-09-2022 Magnesium [Mass/volume] in Serum or Plasma MAGNESIUM BLD Lab Routine Medication management Expected: 09/09/2022, Expires: 11/09/2022 [facility] Work Phone: Comment on above: Expected: 09/09/2022, Expires: 3 Start: 09-09-2022 End: 11-09-2022 Thyrotropin [Units/volume] in Serum or Plasma TSH BLD Lab Routine Cassidy's thyroiditis Expected: 09/09/2022, Expires: 11/09/2022 [facility] Work Phone: Comment on above: Expected: 09/09/2022, Expires: 3 Start: 09-09-2022 End: 11-09-2022 Thyroxine (T4) free [Mass/volume] in Serum or Plasma T4 FREE/FREE THYROX Lab Routine Cassidy's thyroiditis Expected: 09/09/2022, Expires: 11/09/2022 [facility] Work Phone: Comment on above: Expected: 09/09/2022, Expires: 3 Start: 09-09-2022 End: 11-09-2022 Urinalysis complete panel - Urine URINALYSIS, WITH MICROSCOPIC Lab Routine Essential hypertension Expected: 09/09/2022, Expires: 11/09/2022 [facility] Work Phone: Comment on above: Expected: 09/09/2022, Expires: 3 Start: 08-23-2022 ADVANCE DIRECTIVE DISCUSSION ADVANCE DIRECTIVE DISCUSSION [facility] Start: 08-23-2022 DEPRESSION ASSESSMENT DEPRESSION ASSESSMENT [facility] Start: 07-13-2022 Covid-19 Vaccine (5 - Pfizer risk series) Covid-19 Vaccine (5 - Pfizer risk series) [facility] Start: 10-03-2021 COVID-19 VACCINE (4 - Booster for Pfizer series) COVID-19 VACCINE (4 - Booster for Pfizer series) [facility] Start: 08-23-2021 ADVANCE DIRECTIVE DISCUSSION ADVANCE DIRECTIVE DISCUSSION [facility] Start: 08-23-2021 DEPRESSION ASSESSMENT DEPRESSION ASSESSMENT [facility] Start: 2014 RSV Vaccine (1 - 1-dose 60+ series) RSV Vaccine (1 - 1-dose 60+ series) [facility] Start: 2014 RSV Vaccine (1 - Risk 60-74 years 1-dose series) RSV Vaccine (1 - Risk 60-74 years 1-dose series) [facility] Start: 1999 COLOGUARD (FIT-DNA) COLOGUARD (FIT-DNA) [facility] Start: [address] COLONOGRAPHY [facility] Start: 1999 FECAL OCCULT BLOOD FECAL OCCULT BLOOD [facility] Start: 1999 Screening for malignant neoplasm of colon [facility] Start: 1999 SIGMOIDOSCOPY SIGMOIDOSCOPY [facility] Start: 1973 Urine microalbumin profile [facility] Start: 1972 Anxiety Screening Anxiety Screening [facility] Start: 1972 Depression Screening Depression Screening [facility] End: 11-04-2024 BD DXA TRABECULAR BONE SCORE (TBS) BD DXA TRABECULAR BONE SCORE (TBS) Radiology Routine Asymptomatic menopause 1 Occurrences starting 10/06/2023 until 11/04/2024 [facility] Work Phone: Comment on above: 1 Occurrences starting 10/06/2023 until 11/04/2024 CT Abdomen and Pelvi s W contrast IV [facility] End: 10-20-2025 DBT Breast - bilateral screening LEIGH SCREENING W IRISH Radiology Routine Encounter for screening mammogram for breast cancer 1 Occurrences starting 09/21/2024 until 10/20/2025 [facility] Work Phone: Comment on above: 1 Occurrences starting 09/21/2024 until 10/20/2025 End: 11-04-2024 DXA Skeletal system.axial Views for bone density DXA-AXIAL SKELETON Radiology Routine Asymptomatic menopause 1 Occurrences starting 10/06/2023 until 11/04/2024 [facility] Work Phone: Comment on above: 1 Occurrences starting 10/06/2023 until 11/04/2024 End: 10-16-2025 EMG(NEURO/NI) EMG(NEURO/NI) EMG Routine Numbness and tingling in left hand Carpal tunnel syndrome of left wrist 1 Occurrences starting 10/16/2024 until 10/16/2025 [facility] Work Phone: Comment on above: 1 Occurrences starting 10/16/2024 until 10/16/2025 Folate [Moles/volume ] in Serum or Plasma [facility] Hemoglobin A1c/Hemoglobin.total in Blood HEMOGLOBIN A1C (POC) Lab Routine Elevated glucose Ordered: 09/21/2022 [facility] Work Phone: Comment on above: Ordered: 09/21/2022 End: 10-21-2023 LEIGH SCREENING LEIGH SCREENING Radiology Routine Encounter for screening mammogram for breast cancer 1 Occurrences starting 09/21/2022 until 10/21/2023 [facility] Work Phone: Comment on above: 1 Occurrences starting 09/21/2022 until 10/21/2023 End: 12-13-2025 MG Breast - right Diagnostic for implant LEIGH DIAGNOSTIC RIGHT Radiology Routine Abnormal mammogram 1 Occurrences starting 11/13/2024 until 12/13/2025 [facility] Work Phone: Comment on above: 1 Occurrences starting 11/13/2024 until 12/13/[address] [facility] Work Phone: Radionuclide gastric emptying study [facility] End: 12-13-2025 US Breast - right limited US BREAST LTD RIGHT Radiology Routine Abnormal mammogram 1 Occurrences starting 11/13/2024 until 12/13/2025 [facility] Comment on above: 1 Occurrences starting 11/13/2024 until 12/13/2025 End: 01-04-2026 US Breast - right limited US BREAST LTD RIGHT Radiology Routine Abnormal mammogram 1 Occurrences starting 12/05/2024 until 01/04/2026 [facility] Comment on above: 1 Occurrences starting 12/05/2024 until 01/04/2026 End: 10-16-2025 US.doppler Extremity arteries - bilateral for physiologic artery study PVR ANK PRESS [facility] Vascular Lab Routine Pain in toes of both feet Onychodystrophy Diminished pulses in lower extremity 1 Occurrences starting 10/16/2024 until 10/16/2025 [facility] Work Phone: Comment on above: 1 Occurrences starting 10/16/2024 until 10/16/[address] [facility] Immunization Date Immunization Notes Care Provider [facility] 06-09-2024 influenza, high dose seasonal, preservative-free Kade Fry MD Work Phone: [facility] 06-09-2024 respiratory syncytia l virus (RSV) vaccine, bivalent (ABRYSVO) Kade Fry MD Work Phone: [facility] 06-09-2024 influenza virus vacc ine, unspecified formulation Ree Ng MA [facility] 08-24-2023 tetanus toxoid, redu angelic diphtheria toxoid, and acellular pertussis vaccine, adsorbed Kade Fry MD Work Phone: [facility] 06-21-2023 influenza (aIIV4) vaccine, age 65+ yr, quadrivalent, PF (FLUAD QUAD) Kade Fry MD Work Phone: [facility] Work Phone: 06-21-2023 influenza virus vacc ine, unspecified formulation Feliciano Leahy MA [facility] 05-18-2022 influenza (aIIV4) vaccine, age 65+ yr, quadrivalent, PF (FLUAD QUAD) Kade Fry MD Work Phone: [facility] Work Phone: 05-18-2022 influenza virus vacc ine, unspecified formulation Kade Fry MD Work Phone: [facility] 05-01-2021 influenza (HD-IIV4) vaccine, age 65+ yr, high dose, quadrivalent, PF (FLUZONE HIGH-DOSE) Kade Fry MD Work Phone: [facility] Work Phone: 05-01-2021 influenza, high dose seasonal, preservative-free Sayra Katey PA-C Work Phone: [facility] 04-23-2021 zoster vaccine recombinant Sayra Katey PA-C Work Phone: [facility] 01-21-2021 zoster vaccine recombinant Sayra Katey PA-C Work Phone: [facility] 11-19-2020 Covid (Pfizer) [facility] 10-29-2020 Covid (Pfizer) [facility] 09-18-2020 pneumococcal polysaccharide vaccine, 23 valent Sayra Katey PA-C Work Phone: [facility] 05-25-2020 influenza, high-dose , quadrivalent vaccine (FLUZONE HIGH DOSE QUADRIVALENT) Sayra [place] PA-C Work Phone: [facility] 08-28-2019 pneumococcal conjuga te vaccine, 13 valent Sayra [place] PA-C Work Phone: [facility] Work Phone: 06-17-2019 influenza, high dose seasonal, preservative-free Sayra [place] PA-C Work Phone: [facility] 05-02-2018 influenza, injectabl e, quadrivalent, contains preservative Sayra Katey PA-C Work Phone: [facility] 07-06-2017 influenza, seasonal, injectable Sayra Katey PA-C Work Phone: [facility] 08-12-2016 influenza, seasonal, injectable Sayra Del Toro PA-C Work Phone: [facility] 05-23-2014 influenza, seasonal, injectable Sayrasilvana Del Toro PA-C Work Phone: [facility] Work Phone: 05-23-2012 influenza virus vacc ine, unspecified formulation Sayra Del Toro PA-C Work Phone: [facility] Payers Date Payer Category Payer Self-pay [id number] 2021 Medicare [employer] MEDICARE A ETNA MEDICARE PPO [id number] 2021-Present [phone] [address] [place] [address] PPO [id number] 2021 Medicare [employer] MEDICARE A ETNA MEDICARE PPO [id number] 2021-Present [phone] [address] [place] [address] PP [id number] 2021 Medicare (Managed Care) [place] [id number] [address] [facility] [id number] 2016 Private Health Insurance [id number] 2016 Unknown [id number] Medicare [id number] Unknown [id number] [id number]. 462 Unknown [id number] [id number]. 462 Unknown [id number] 2.16.840.1.532175.3.579.2. 462 Unknown [id number] 2.16.840.1.254998.3.579.2. 462 Unknown [id number] 2.16.840.1.801607.3.579.2. 462 Unknown [id number] 2.16.840.1.172485.3.579.2. 462 Unknown [id number] 2.16.840.1.967477.3.579.2. 462 Unknown [id number] 2.16.840.1.001749.3.579.2. 462 Unknown [id number] 2.16.840.1.566060.3.579.2. 462 Unknown [id number] 2.16.840.1.191471.3.579.2. 462 Unknown [id number] 2.16.840.1.948020.3.579.2. 462 Unknown [id number] 2.16.840.1.821849.3.579.2. 462 Unknown [id number] 2.16.840.1.328280.3.579.2. 462 Unknown [id number] 2.16.840.1.128369.3.579.2. 462 Unknown [id number] Unknown [id number] Unknown [id number] Unknown [id number] Unknown [id number] Social History Date Type Detail Facility Start: 05-26-2016 End: 05-26-2016 Tobacco smoking status NHIS Unknown if ever smoked [facility] Start: 1955 Sex Assigned At Female W [facility] Start: 06-18-2022 End: 05-14-2025 Tobacco smoking status SCIS Never smoked tobacco [facility] Start: 11-12-2021 End: 11-27-2024 Alcohol intake Current non-drinker of alcohol (finding) [facility] Start: 1955 Sex Assigned At Not on file C [facility] Start: 08-20-2021 End: 06-18-2022 Exposure to SARS-CoV-2 (event) Not sure [facility] Start: 05-21-2011 End: 06-18-2022 Tobacco use and exposure Smokeless tobacco non-user [facility] Start: 09-21-2022 End: 08-26-2023 History of Social function [facility] Work Phone: Start: 09-21-2022 End: 08-26-2023 Tobacco use panel [facility] Work Phone: Start: 07-24-2012 Adult Depression Screening Assessment 0 [facility] Work Phone: Start: 11-18-2024 End: 11-30-2024 Sex Female (finding) [facility] NEGATED: Highlighted row Not [facility] Medical Equipment Procedure Code Equipment Code Equipment Origin al Text Equipment Identifier Dates Extra-gynaecolog ical surgical mesh, composite-polymer [id number] FDA Start: 05-28-2025 Goals Date Patient Goal Desired Activity /State Functional Status Date Assessment Result Facility 11-12-2014 Are you deaf, or do you have serious difficulty hearing No 11/12/2014 4:53 PM EDCarole Monteiro RN No [facility] 11-12-2014 Are you blind, or do you have serious difficulty seeing, even when wearing glasses No 11/12/2014 4:53 PM EDCarole Monteiro RN No [facility] 11-12-2014 Do you have serious difficulty walking or climbing stairs No 11/12/2014 4:53 PM EDT Carole Perez RN No [facility] 11-12-2014 Do you have difficul ty dressing or bathing No 11/12/2014 4:53 PM EDCarole Monteiro RN No [facility] 11-12-2014 Because of a physica l, mental, or emotional condition, do you have difficulty doing errands alone such as visiting a physician's office or shopping No 11/12/2014 4:53 PM EDCarole Monteiro RN No [facility] Mental Status Date Assessment Result Facility 05-28-2025 Cognitive function Voice/Name [facility] Work Phone: 02-12-2025 Cognitive function Voice/Name;To [facility] Work Phone: 11-12-2014 Because of a physica l, mental, or emotional condition, do you have serious difficulty concentrating, remembering, or making decisions No 11/12/2014 4:53 PM EDCarole Monteiro RN No [facility] Clinical Notes 08-03-2012 to 06-07-2025 Note Date & Type Note Facility 06-07-2025 Note HNO ID: [id number] Author: REMINGTON PEREYRA LPN Service: ? Author Type: Licensed Nurse Type: Progress Notes Filed: 06/07/2025 07:09 Note Text: Scan on 06/06/2025 5:39 PM by Provider, EDIS Branch: Consultation - General Surgery [facility] 06-06-2025 Progress note [facility] 05-29-2025 Note HNO ID: [id number] Author: NANO RICHARD MA Service: ? Author Type: Licensed Nurse Type: Progress Notes Filed: 05/30/2025 09:38 Note Text: Scan on 05/28/2025 7:26 PM by Provider, EDIS Branch: Discharge Summary Scan on 05/29/2025 8:13 PM by Provider, EDIS Branch: Hernia Repair with mesh placement [facility] 05-28-2025 Consult note [facility] 05-28-2025 Consult note Note Date/Time May 28, 2025 4:05pm [facility] Medical Records Department [address] [place] [address] Anesthesia Postop Eval II 05/28/25 1236 MR#: [id number] Acct: [id number] Name: ELISHA GODFREY Rep #:[id number] : 1955 70 From: Mikaela SHINE PCP: Dr. Kade Fry MD Status:REG [facility] Y Race: C Location: [place] [address] Anesthesia Postop Eval I Sum Postop Eval Completion status Anesthesia document: Postop Eval 1 completed: Yes Anesthesia Postop Eval I Summary Anesthesia Postop Eval I Summary: Anesthesia Postop Eval I: Assessment Summary Airway patent Yes 05/28/25 11:18 [email or web address] Spontaneous unlabored Yes 05/28/25 11:18 [email or web address] [email or web address] respirations Mental status Awake,Calm 05/28/25 11:18 [email or web address] nausea No 05/28/25 11:18 [email or web address] SPOT.[email or web address] Vomiting No 05/28/25 11:18 [email or web address].[email or web address] Anesthesia Postop Eval I: Fluid Summary Crystalloid volume administer 2,000 05/28/25 11:18 [email or web address].PKEL (ml) Colloids volume administered ( ml) Blood Product volume administered (ml) Total IV fluid infused 2,000 05/28/25 11:18 [email or web address] Anesthesia Postop Eval I: Summary Notes Anesthesia Complication No 05/28/25 11:18 [email or web address] Anesthesia Complication Comment: Post-operative progress note Anesthesia: Postop Eval II Evaluation Mental status: Awake and Calm Pain Level: 1 nausea: No Vomiting: No Complications Anesthesia Complication: No 05/28/25 1236 <Electronically signed by Mikaela Bustamante PLASTERER SPOT> Date _ Mikaela Bustamante PLASTERER SPOT Cosigner Signature: Date CC: ~ Signed [facility] Work Phone: 1(336) 484-104910-06-2025 Consult note Author Eddie Miller [facility] Note Date/Time May 28, 2025 11 :18am [facility] Medical Records Department [address] [place] [address] Anesthesia Postop Eval I 05/28/25 1117 MR#: [id number] Acct: [id number] Name: ELISHA GODFREY Rep #:[id number] : 1955 70 From: Eddie Miller CRNA PCP: Dr. Kade Fry MD Status:REG [facility] Y Race: C Location: [place] [address] Anesthesia: Postop Eval I Current Vital Signs Temperature: 97.3 F Pulse Rate: 81 Blood Pressure: 144/70 Respiratory Rate: 20 Pulse Ox: 100 Oxygen Delivery Method: Room Air Assessment Airway patent: Yes Spontaneous unlabored respirations: Yes Mental status: Awake and Calm nausea: No Vomiting: No Anesthesia Complication: No Fluid Hydration Crystalloid volume administer (ml): 2,000 Total IV fluid infused: 2,000 Progress Note Anesthesia document: Postop Eval 1 completed: Yes 05/28/25 1118 <Electronically signed by Eddie garcía PLASTERER SPOT> Date _ Eddie Miller PLASTERER SPOT Lakiaigner Signature: Date CC: ~ Signed [facility] Work Phone: 1(729) 451-810910-06-2025 Consult note [facility] Medical Records Department [address] [place] [address] Anesthesia Postop Eval I 05/28/25 1117 MR#: [id number] Acct: [id number] Name: ELISHA GODFREY Rep #:[id number] : 1955 70 From: Eddie Miller CRNA PCP: Dr. Kade Fry MD Status:REG [facility] Y Race: C Location: [place] [address] Anesthesia: Postop Eval I Current Vital Signs Temperature: 97.3 F Pulse Rate: 81 Blood Pressure: 144/70 Respiratory Rate: 20 Pulse Ox: 100 Oxygen Delivery Method: Room Air Assessment Airway patent: Yes Spontaneous unlabored respirations: Yes Mental status: Awake and Calm nausea: No Vomiting: No Anesthesia Complication: No Fluid Hydration Crystalloid volume administer (ml): 2,000 Total IV fluid infused: 2,000 Progress Note Anesthesia document: Postop Eval 1 completed: Yes 05/28/25 1118 y PLASTERER SPOT> Date _ Eddie Miller PLASTERER SPOT Cosigner Signature: Date CC: ~ Signed [facility]10-06-2025 Consult note Author Michael [facility] Note Date/Time May 28, 2025 7: 33am [facility] Medical Records Department [address] [place] [address] Pre-Anesthesia Evaluation 05/28/25 0700 MR#: [id number] Acct: [id number] Name: ELISHA GODFREY Rep #:[id number] : 1955 70 From: Michael Spear MD PCP: Dr. Kade Fry MD Status:REG [facility] Y Race: C Location: [place] [address] ASA Classification* ASA Classification ASA Classification: 3 Assessment & Plan Anesthesia* Anesthesia Assessment Anesthesia [...] anesthesia risk assessments. Anesthesia Type Anesthesia Type: General History Source History Obtained from:: Patient and Chart Anesthesia Focused Assessment* Temperature: 98.1 F Pulse Rate: 62 Blood Pressure: 176/74 Respiratory Rate: 16 Pulse Ox: 99 Oxygen Delivery Method: Room Air Airway Assessment Mouth opens: >3 cm Mallampati Score: II Teeth Condition: Caps/Crowns (Patient has couple crowns. They are tight.) and Missing (Patient has a missing tooth.) Neck Range of motion (ROM): Full ROM Labs Anesthesia Preop lab: CBC WBC, (4.4-11.0) 4.6 K/mm3 03/27/25, 12:44 RBC, (4.2-5.4) 3.97 M/mm3 L 03/27/25, 12:44 Hgb, (12.0-15.0) 13.9 g/dL 03/27/25, 12:44 Hct, (37-47) 41.4 % 03/27/25, 12:44 Plt Count, (150-450) 206 K/mm3 03/27/25, 12:44 CHEMISTRY Potassium, (3.3-5.1) 3.9 mmol/L 03/27/25, 12:44 Sodium, (133-145) 139 mmol/L 03/27/25, 12:44 BUN, (4-19) 19 mg/dL 03/27/25, 12:44 Creatinine, (0.70-1.20) 0.77 mg/dL 03/27/25, 12:44 Glucose, (70-99) 164 mg/dL H 03/27/25, 12:44 TSH, (0.300-4.200) 2.340 uIU/mL 11/27/24, 09:42 COAG Pre-Assessment Diagnosis/Proposed Procedure Planned Operative Procedure(s): LAP ROBOTIC INGUINAL HERNIA LEFT WITH MESH Anesthesia History 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 When Was Last Pacemaker Check QUESTION #4 FULL TEXT: You/Your Family Experience fever (hyperthermia) with Anesthesia Last Oral Intake Last Oral intake: Last Oral Intake NPO since 18:30 05/28/25 06:24 Meds taken in AM with sips of Yes 05/28/25 06:24 water? 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 Female Yes 05/14/25 13:02 HX of Motion Sickness No 05/14/25 13:02 HX of N/V After Surgery No 05/14/25 13:02 Non-Smoker Yes 05/14/25 13:02 Duration of Surgery greater Yes 05/14/25 13:02 than 60 minutes Number of Risk Factors 3 05/14/25 13:02 PONV Score Moderate Risk 05/14/25 13:02 Height & Weight Height & Weight: Anesthesia: Height & Weight Height 5 ft 5.5 in 05/28/25 06:24 Weight: 86 kg 05/28/25 06:24 Body Mass Index (BMI) 31.0 05/28/25 06:24 Respiratory Assessment Respiratory Assessment - 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: Respiratory Tract Infection Hx - 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 Hx Respiratory Tract Infection No 05/14/25 13:02 STOP Sleep Apnea STOP Sleep Apnea - 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: STOP Sleep Apnea - 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 Hx Hypertension Yes: ON MEDS BP CONTROLLED 05/14/25 13:02 Hx Sleep Apnea No 05/14/25 13:02 CPAP BIPAP Do you snore loudly (louder Yes 05/14/25 13:02 than talking or can be heard Do you often feel tired/ Yes 05/14/25 13:02 fatigued/ sleepy during daytime? Has anyone observed you stop No 05/14/25 13:02 breathing during sleep? STOP Results Positive 05/14/25 13:02 QUESTION #5 FULL TEXT : Do you snore loudly (louder than talking or can be heard through closed doors)? 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 Specify any problems Hx of Preganancy in last 3 No 05/14/25 13:02 Months Nurse Filling Out Transfusion DSCHRIBER 05/14/25 13:02 & Questions: Date: 05/14/25 05/14/25 13:02 Time: 13:06 05/14/25 13:02 Patient unable to answer at this time (ie. 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: /Reproductive Hx- 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 Hx Now Gestational Age (in weeks): EDC: Hx Hx Para Hx Section SAB No 05/14/25 13:02 Active Medications Active Medications: Current Medications Generic Name Dose Route Start Last Admin Trade Name Freq PRN Reason Stop Dose Admin Cefazolin Sodium 2 gm/ Sodium 110 mls @ 200 mls/hr 05/28/25 07:30 Chloride IV 05/28/25 08:02 INTRAOP ONE Lactated Ringer's 1,000 mls @ 15 mls/hr 05/28/25 06:15 05/28/25 06:37 IV 15 mls/hr .Q48H KIRIT Administration PFSH Medical History Loss of hearing Post-menopausal Bladder disease Easy bruising Back pain Injury of back History of diverticulitis History of stress test Wears glasses Rheumatoid arthritis TIA (transient ischemic attack) History of hiatal hernia Difficulty swallowing Non-smoker Shortness of breath on exertion Leg cramps History of edema GERD (gastroesophageal reflux disease) Osteopenia Hypertension Migraines Arthritis Home Medications ?Medication ?Instructions ?Recorded ?Last Taken ?Type Ibuprofen [Motrin] 800 mg PO TID PRN PRN Pain 1 05/27/25 History aspirin 81 mg tablet,delayed 81 mg PO MOWEFR 05/26/16 05/27/25 History release calcium carbonate (Oyster Shell 500 mg PO BID 05/26/16 05/27/25 History Calcium 500) cholecalciferol (vitamin D3) 25 2,000 unit PO BID 12/0605/27/25 History mcg (1,000 unit) tablet (Vitamin D3) fexofenadine-pseudoephedrine ER 1 ea PO DAILY 05/26/16 05/27/25 History 180 mg-240 mg tablet,ext.release 24 hr (Carmelita-D 24 Hour) omega-3 fatty acids-fish oil 340 1 ea PO DAILY 6 05/27/25 History mg-1,000 mg capsule (Fish Oil) ramipril 5 mg capsule 5 mg PO DAILY 05/26/1605/27 History vitamin B complex 1 ea PO DAILY 05/26/1605/27 History ascorbic acid (vitamin C) 1,000 mg 1 g PO QDAY 5 05/27/25 History capsule methotrexate sodium 2.5 mg tablet 20 mg PO SA 11/21/24 05/27/25 History folic acid 1 mg tablet 2 mg PO QDAY 11/27/24 History dicyclomine 10 mg capsule 10 mg PO BID PRN abdominal p ain 03/09/25 05/27/25 Rx #14 caps budesonide 32 mcg/actuation nasal 2 spray intranasal Q HS 05/14/25 05/27/25 History spray pantoprazole 40 mg tablet,delayed [address] PO [address] 05/14/25 05/28/25 05:00 History release zinc gluconate 50 mg tablet 50 mg PO DAILY 05/14/25 History Allergy/AdvReac Type Severity Reaction Status Date / Time lansoprazole (From Prevacid) Allergy Hives Verified 05/14/25 12:54 latex Allergy Unknown Verified 05/14/25 12:54 alendronate sodium (From AdvReac Unknown heartburn Verified 05/14/25 12:54 Fosamax) adhesive AdvReac Unknown Verified 05/14/25 12:54 diphenhydramine (From AdvReac "FEEL Verified 05/14/25 12:54 Benadryl) WEIRD" Family History Mother Arthritis Brother Arthritis Diabetes Heart disease Bleeding disorder Brother Colon cancer Bleeding disorder Surgical History History of esophagogastroduodenoscopy (EGD) History of colonoscopy History of tubal ligation H/O: hysterectomy History of appendectomy History of tonsillectomy Social History Smoking Status: Never smoker alcohol intake: never substance use type: does not use what type of physical activity do you participate in: none Review of Systems (Anesthesia) ROS Narrative System reviewed and no additional complaints, except as documented. 05/28/25732 <Electronically signed by Michael subramanian MD> Date _ Michael Spear MD Cosigner Signature: Date CC: ~ Signed [facility] Work Phone: 1(797) 854-258510-06-2025 History and physical note Author Tavon Beauchamp [facility] Note Date/Time May 28, 2025 7: 17am [facility] Medical Records Department [address] [place] [address] History & Physical Exam 05/28/25714 MR#: [id number] Acct: [id number] Name: ELISHA GODFREY Rep #:[id number] : 1955 70 From: Tavon Oscar PCP: Dr. Kade Fry MD Status:REG [facility] Location: [facility] History and Physical Date of Admission: 05/28/25 Date of Service: 05/03/25 MR#: [id number] Acct: [id number] Name: ELISHA GODFREY Rep #: [id number] : 1955 Provider: Dr. Tavon Beauchamp MD Age/Sex: 70/F Location: [facility] Status: Signed Intake Vital Signs 02/12/2509:26 05/03/2513:36 Height 5 ft 1 in 5 ft [...] Reaction (Verified 05/03/25 13:37) FEEL WEIRD Medications ?Medication ?Instructions ?Recorded ?Confirmed ?Type Ibuprofen [Motrin] 800 mg PO TID PRN PRN Pain 05/26/1604/23 History aspirin 81 mg tablet,delayed 81 mg PO MOWEFR 05/26/16 05/03/25 Histor y release calcium carbonate (Oyster Shell 500 mg PO BID 05/26/16 05/03/25 History Calcium 500) cholecalciferol (vitamin D3) 25 2,000 unit PO BID 05/26/16 05/03/25 Hist ory mcg (1,000 unit) tablet (Vitamin D3) fexofenadine-pseudoephedrine ER 1 ea PO DAILY 05/26/16 05/03/25 History 180 mg-240 mg tablet,ext.release 24 hr (Carmelita-D 24 Hour) omega-3 fatty acids-fish oil 340 1 ea PO DAILY 05/26/16 05/03/25 History mg-1,000 mg capsule (Fish Oil) ramipril 5 mg capsule 5 mg PO DAILY 05/26/16 05/03/25 History vitamin B complex 1 ea PO DAILY 05/26/16 05/03/25 History ascorbic acid (vitamin C) 1,000 mg 1 g PO QDAY 11/21/24 05/03/25 History capsule methotrexate sodium 2.5 mg tablet 20 mg PO SA 11/21/24 05/03/25 History folic acid 1 mg tablet 2 mg PO QDAY 11/27/24 05/03/25 History dicyclomine 10 mg capsule 10 mg PO BID PRN abdominal pain 03/09/25 05/03/25 Rx #14 caps famotidine 40 mg tablet 40 mg PO QDAY #30 tabs 04/13/25 05/03/25 Rx Have you fallen in the past [...] She shares that this pain seems to "come and go". She also adds that she has had no pain since she started going for further evaluation. She reports when the pain was present it was a "sharp pain" that would "double you over". She wishes to know how this might be connected back to the fact that despite a history of uneventful colonoscopy she has presented twice now for colonoscopy with 2 separate gastroenterologists and neither procedure was able to be completed due to "the narrowness" of her colon. Ms. Godfrey denies any history of an inciting event such as lifting or straining. She denies any history of skin infections. Later in the visit she remarks that there was "drooping" of her abdominal wall following her appendix surgery. She is uncertain when her laparoscopic appendectomy was undertaken but estimates it to have been at least 12 years ago. Outside of the above hernia considerations, Mr. Godfrey reports that she does experience right upper quadrant pain "at times". Once again she notes this pain "comes and goes". She states that sometimes when she bends over she gets a muscle spasm in this area. She has not linked the symptoms in any particular way to mealtime. She does confirm a history of nausea but has always previously connected this to her history of heartburn. Patient has past surgical history inclusive of hysterectomy, tubal ligation, appendectomy, and bladder sling procedure. ROS General General: Yes fatigue; No weight change, appetite, colon cancer, breast cancer or weakness HEENT HEENT: Yes difficulty swallowing; No eye injury, eye surgery, swollen glands or hoarseness Additional Details: C/o dry food items can be difficult ie bread, crackers Endo Endocrine: No thyroid disease, diabetes mellitus, thyroid cancer, Hair loss, heat intolerance or cold intolerance Skin Skin: No rash or changing moles Musc Musculoskeletal: Yes back problems, arthritis and rheumatoid arthritis; No gout or joint pain Cardio Cardiovascular: Yes high blood pressure; No murmur, pacemaker, heart disease, atrial fibrillation, heart attack, heart stent, palpitations, shortness of breath with exertion or chest pain Psych Psychiatric: No depression, anxiety or hearing voices Resp Respiratory: Yes shortness of breath, No sleep apnea, Yes cough, No COPD, No asthma, No emphysema and No wheezing Gastro Gastrointestinal: Yes abdominal pain, Yes nausea or vomiting, No diarrhea, No constipation, No blood in stool, Yes acid reflux, Yes hemorrhoids, No ulcers, No gallbladder problem and No black,tarry stools Doe Hematologic: No blood thinners, No blood disorders, No bleeding, No anemia and No blood clots Neuro Neurologic: No system reviewed and no additional complaints, except as documented, No as per HPI, No abnormal gait, No abnormal hearing, No abnormal movements, No abnormal speech, No behavioral changes, No burning sensations, No confusion, No convulsions, No disequilibrium, No dizziness, No localized weakness, No frequent falls, No headache(s), No lack of coordination, No loss of vision, No memory loss, Yes numbness, No other visual disturbances, No radicular pain, No restless legs, No sensory deficit, No syncope, Yes tingling, No tremor(s), No weakness and No other ROS Narrative h/o TIA in her 20's Exam Const General: cooperative Nutritional Appearance: obese Orientation: alert, awake and oriented x3 Resp Effort & Inspection: normal respiratory effort GI Other: Obese, nondistended, soft, mild tenderness with palpation in the left lower quadrant. With deeper palpation I do believe I palpate at least part of the fascial defect and patient confirms tenderness is greatest in intensity in this location. I do not palpate any herniated bowel contents. In the right upper quadrant there is a negative Love sign. Assessment and Plan Assessment and Plan (1) Spigelian hernia: Status: Acute Comment: Patient is a 70-year-old female who presents for a number of [...] to minimize her risk for recurrence postoperatively. Plan: ? Left Robot-assisted spigelian hernia repair with mesh placement. Procedure to be completed with outpatient disposition planned ? MRSA swab in the naris to exclude MRSA colonization and need for preoperative eradication protocol. (2) Cholelithiasis: Status: Acute Comment: Patient with cholelithiasis seen on CT imaging. According to patient's [...] advised of symptoms to be watchful towards. Plan: ? No surgical intervention currently planned or indicated for patient's 2.7 cm gallstone. Orders: Orders MRSA/SAID SCREEN (PRE SURG) Today K43.9 - Ventral hernia without obstruction or gangrene Pt presents for L spigelian hernia repair with mesh. She remains in stable state of health. Goals of procedure reviewed w pt and her . Post procedure activity restrictions also reviewed. Ab exam benign and site marked. Consents confirmed. Proceed to OR as planned. 05/28/25 9838 <Electronically signed by Tavon Beauchamp MD> Cosigner Signature (if applicable): CC: Dr. Kade Fry MD; Dr. Tavon Beauchamp MD~ Signed [facility] Work Phone: 1(459) 759-464410-06-2025 NoteHNO ID: [id number] Author: NANO RICHARD MA Service: ? Author Type: Acds Block 1 Operator Type: Progress Notes Filed: 05/28/2025 08:39 Note Text: Scan on 05/28/2025 7:32 AM by Provider, External, PA-C: [facility] Consult note [facility] Medical Records Department [address] [place] [address] Pre-Anesthesia Evaluation 05/28/25 0700 MR#: [id number] Acct: [id number] Name: ELISHA GODFREY Rep #:[id number] : 1955 70 From: Michael Spear MD PCP: Dr. Kade Fry MD Status:REG SDC Y Race: C Location: [place] [address] ASA Classification* ASA Classification ASA Classification: 3 Assessment & Plan Anesthesia* Anesthesia Assessment Anesthesia [...] anesthesia risk assessments. Anesthesia Type Anesthesia Type: General History Source History Obtained from:: Patient and Chart Anesthesia Focused Assessment* Temperature: 98.1 F Pulse Rate: 62 Blood Pressure: 176/74 Respiratory Rate: 16 Pulse Ox: 99 Oxygen Delivery Method: Room Air Airway Assessment Mouth opens: >3 cm Mallampati Score: II Teeth Condition: Caps/Crowns (Patient has couple crowns. They are tight.) and Missing (Patient has a missing tooth.) Neck Range of motion (ROM): Full ROM Labs Anesthesia Preop lab: CBC WBC, (4.4-11.0) 4.6 K/mm3 03/27/25, 12:44 RBC, (4.2-5.4) 3.97 M/mm3 L 03/27/25, 12:44 Hgb, (12.0-15.0) 13.9 g/dL 03/27/25, 12:44 Hct, (37-47) 41.4 % 03/27/25, 12:44 Plt Count, (150-450) 206 K/mm3 03/27/25, 12:44 CHEMISTRY Potassium, (3.3-5.1) 3.9 mmol/L 03/27/25, 12:44 Sodium, (133-145) 139 mmol/L 03/27/25, 12:44 BUN, (4-19) 19 mg/dL 03/27/25, 12: Creatinine, (0.70-1.20) 0.77 mg/dL 03/27/25, 12: Glucose, (70-99) 164 mg/dL H 03/27/25, 12: TSH, (0.300-4.200) 2.340 uIU/mL 11/27/24, 09:42 COAG Pre-Assessment Diagnosis/Proposed Procedure Planned Operative Procedure(s): LAP ROBOTIC INGUINAL HERNIA LEFT WITH MESH Anesthesia History 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 When Was Last Pacemaker Check QUESTION #4 FULL TEXT: You/Your Family Experience fever (hyperthermia) with Anesthesia Last Oral Intake Last Oral intake: Last Oral Intake NPO since 18:30 05/28/25 06:24 Meds taken in AM with sips of Yes 05/28/25 06:24 water? 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 Female Yes 05/14/25 13:02 HX of Motion Sickness No 05/14/25 13:02 HX of N/V After Surgery No 05/14/25 13:02 Non-Smoker Yes 05/14/25 13:02 Duration of Surgery greater Yes 05/14/25 13:02 than 60 minutes Number of Risk Factors 3 05/14/25 13:02 PONV Score Moderate Risk 05/14/25 13:02 Height & Weight Height & Weight: Anesthesia: Height & Weight Height 5 ft 5.5 in 05/28/25 06:24 Weight: 86 kg 05/28/25 06:24 Body Mass Index (BMI) 31.0 05/28/25 06:24 Respiratory Assessment Respiratory Assessment - 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: Respiratory Tract Infection Hx - 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 Hx Respiratory Tract Infection No 05/14/25 13:02 STOP Sleep Apnea STOP Sleep Apnea - 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: STOP Sleep Apnea - 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 Hx Hypertension Yes: ON MEDS BP CONTROLLED 05/14/25 13:02 Hx Sleep Apnea No 05/14/25 13:02 CPAP BIPAP Do you snore loudly (louder Yes 05/14/25 13:02 than talking or can be heard Do you often feel tired/ Yes 05/14/25 13:02 fatigued/ sleepy during daytime? Has anyone observed you stop No 05/14/25 13:02 breathing during sleep? STOP Results Positive 05/14/25 13:02 QUESTION #5 FULL TEXT : Do you snore loudly (louder than talking or can be heard through closeddoors)? 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 Specify any problems Hx of Preganancy in last 3 No 05/14/25 13:02 Months Nurse Filling Out Transfusion DSCHRIBER 05/14/25 13:02 & Questions: Date: 05/14/25 05/14/25 13:02 Time: 13:06 05/14/25 13:02 Patient unable to answer at this time (ie. 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: /Reproductive Hx- 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 Hx Now Gestational Age (in weeks): EDC: Hx Hx Para Hx Section SAB No 05/14/25 13:02 Active Medications Active Medications: Current Medications Generic Name Dose Route Start Last Admin Trade Name Freq PRN Reason Stop Dose Admin Cefazolin Sodium 2 gm/ Sodium 110 mls @ 200 mls/hr 05/28/25 07:30 Chloride IV 05/28/25 08:02 INTRAOP ONE Lactated Ringer's 1,000 mls @ 15 mls/hr 05/28/25 06:15 05/28/25 06:37 IV 15 mls/hr .Q48H KIRIT Administration PFSH Medical History Loss of hearing Post-menopausal Bladder disease Easy bruising Back pain Injury of back History of diverticulitis History of stress test Wears glasses Rheumatoid arthritis TIA (transient ischemic attack) History of hiatal hernia Difficulty swallowing Non-smoker Shortness of breath on exertion Leg cramps History of edema GERD (gastroesophageal reflux disease) Osteopenia Hypertension Migraines Arthritis Home Medications ?Medication ?Instructions ?Recorded ?Last Taken ?Type Ibuprofen [Motrin] 800 mg PO TID PRN PRN Pain 1 05/27/25 History aspirin 81 mg tablet,delayed 81 mg PO MOWEFR 05/26/16 05/27/25 History release calcium carbonate (Oyster Shell 500 mg PO BID 05/26/16 05/27/25 History Calcium 500) cholecalciferol (vitamin D3) 25 2,000 unit PO BID 12/0605/27/25 History mcg (1,000 unit) tablet (Vitamin D3) fexofenadine-pseudoephedrine ER 1 ea PO DAILY 05/26/16 05/27/25 History 180 mg-240 mg tablet,ext.release 24 hr (Carmelita-D 24 Hour) omega-3 fatty acids-fish oil 340 1 ea PO DAILY 6 05/27/25 History mg-1,000 mg capsule (Fish Oil) ramipril 5 mg capsule 5 mg PO DAILY 05/26/1605/27 History vitamin B complex 1 ea PO DAILY 05/26/1605/27 History ascorbic acid (vitamin C) 1,000 mg 1 g PO QDAY 5 05/27/25 History capsule methotrexate sodium 2.5 mg tablet 20 mg PO SA 11/21/24 05/27/25 History folic acid 1 mg tablet 2 mg PO QDAY 11/27/24 History dicyclomine 10 mg capsule 10 mg PO BID PRN abdominal p ain 03/09/25 05/27/25 Rx #14 caps budesonide 32 mcg/actuation nasal 2 spray intranasal Q HS 05/14/25 05/27/25 History spray pantoprazole 40 mg tablet,delayed 40 [address] PO [address] 05/14/25 05/28/25 05:00 History release zinc gluconate 50 mg tablet 50 mg PO DAILY 05/14/25 History Allergy/AdvReac Type Severity Reaction Status Date / Time lansoprazole (From Prevacid) Allergy Hives Verified 05/14/25 12:54 latex Allergy Unknown Verified 05/14/25 12:54 alendronate sodium (From AdvReac Unknown heartburn Verified 05/14/25 12:54 Fosamax) adhesive AdvReac Unknown Verified 05/14/25 12:54 diphenhydramine (From AdvReac "FEEL Verified 05/14/25 12:54 Benadryl) WEIRD" Family History Mother Arthritis Brother Arthritis Diabetes Heart disease Bleeding disorder Brother Colon cancer Bleeding disorder Surgical History History of esophagogastroduodenoscopy (EGD) History of colonoscopy History of tubal ligation H/O: hysterectomy History of appendectomy History of tonsillectomy Social History Smoking Status: Never smoker alcohol intake: never substance use type: does not use what type of physical activity do you participate in: none Review of Systems (Anesthesia) ROS Narrative System reviewed and no additional complaints, except as documented. 05/28/25 0733 moris PEARSON> Date _ Michael Spear MD Cosigner Signature: Date CC: ~ Signed [facility]10-06-2025 History and physical note [facility] Medical Records Department [address] [place] [address] History & Physical Exam 05/28/25714 MR#: [id number] Acct: [id number] Name: ELISHA GODFREY Rep #:[id number] : 1955 70 From: Tavon Oscar PCP: Dr. Kade Fry MD Status:[facility] Location: [place] [address] History and Physical Date of Admission: 05/28/25 Date of Service: 05/03/25 MR#: [id number] Acct: [id number] Name: ELISHA GODFREY Rep #: [id number] : 1955 Provider: Dr. Tavon Beauchamp MD Age/Sex: 70/F Location: [facility] Status: Signed Intake Vital Signs 02/12/2509:26 05/03/2513:36 Height 5 ft 1 in 5 ft [...] Reaction (Verified 05/03/25 13:37) FEEL WEIRD Medications ?Medication ?Instructions ?Recorded ?Confirmed ?Type Ibuprofen [Motrin] 800 mg PO TID PRN PRN Pain 05/26/1604/23 History aspirin 81 mg tablet,delayed 81 mg PO MOWEFR 05/26/16 05/03/25 Histor y release calcium carbonate (Oyster Shell 500 mg PO BID 05/26/16 05/03/25 History Calcium 500) cholecalciferol (vitamin D3) 25 2,000 unit PO BID 05/26/16 05/03/25 Hist ory mcg (1,000 unit) tablet (Vitamin D3) fexofenadine-pseudoephedrine ER 1 ea PO DAILY 05/26/16 05/03/25 History 180 mg-240 mg tablet,ext.release 24 hr (Carmelita-D 24 Hour) omega-3 fatty acids-fish oil 340 1 ea PO DAILY 05/26/16 05/03/25 History mg-1,000 mg capsule (Fish Oil) ramipril 5 mg capsule 5 mg PO DAILY 05/26/16 05/03/25 History vitamin B complex 1 ea PO DAILY 05/26/16 05/03/25 History ascorbic acid (vitamin C) 1,000 mg 1 g PO QDAY 11/21/24 05/03/25 History capsule methotrexate sodium 2.5 mg tablet 20 mg PO SA 11/21/24 05/03/25 History folic acid 1 mg tablet 2 mg PO QDAY 11/27/24 05/03/25 History dicyclomine 10 mg capsule 10 mg PO BID PRN abdominal pain 03/09/25 05/03/25 Rx #14 caps famotidine 40 mg tablet 40 mg PO QDAY #30 tabs 04/13/25 05/03/25 Rx Have you fallen in the past [...] She shares that this pain seems to "come and go". She also adds that she has had no pain since she started going for further evaluation.She reports when the pain was present it was a "sharp pain" that would "double you over". She wishes to know how this might be connected back to the fact that despite a history of uneventful colonoscopy she has presented twice now for colonoscopy with 2 separate gastroenterologists and neither procedure was able to be completed due to "the narrowness" of her colon. Ms. Godfrey denies any history o f an inciting event such as lifting or straining. She denies any history of skin infections. Later in the visit she remarks that there was "drooping" of her abdominal wall following her appendix surgery. She is uncertain when her laparoscopic appendectomy was undertaken but estimates it to have been at least 12 years ago. Outside of the above hernia considerations, Mr. Godfrey reports that she does experience right upper quadrant pain "at times". Once again she notes this pain "comes and goes". She states that sometimes when she bends over she gets a muscle spasm in this area. She has not linked the symptoms in any particular way to mealtime. She does confirm a history of nausea but has always previously connectedthis to her history of heartburn. Patient has past surgical history inclusive of hysterectomy, tubal ligation, appendectomy, and bladder sling procedure. ROS General General: Yes fatigue; No weight change, appetite, colon cancer, breast cancer or weakness HEENT HEENT: Yes difficulty swallowing; No eye injury, eye surgery, swollen glands or hoarseness Additional Details: C/o dry food items can be difficult ie bread, crackers Endo Endocrine: No thyroid disease, diabetes mellitus, thyroid cancer, Hair loss, heat intolerance or cold intolerance Skin Skin: No rash or changing moles Musc Musculoskeletal: Yes back problems, arthritis and rheumatoid arthritis; No gout or joint pain Cardio Cardiovascular: Yes high blood pressure; No murmur, pacemaker, heart disease, atrial fibrillation, heart attack, heart stent, palpitations, shortness of breath with exertion or chest pain Psych Psychiatric: No depression, anxiety or hearing voices Resp Respiratory: Yes shortness of breath, No sleep apnea, Yes cough, No COPD, No asthma, No emphysema and No wheezing Gastro Gastrointestinal: Yes abdominal pain, Yes nausea or vomiting, No diarrhea, No constipation, No blood in stool, Yes acid reflux, Yes hemorrhoids, No ulcers, No gallbladder problem and No black,tarry stools Doe Hematologic: No blood thinners, No blood disorders, No bleeding, No anemia and No blood clots Neuro Neurologic: No system reviewed and no additional complaints, except as documented, No as per HPI, No abnormal gait, No abnormal hearing, No abnormal movements, No abnormal speech, No behavioral changes, No burning sensations, No confusion, No convulsions, No disequilibrium, No dizziness, No localized weakness, No frequent falls, No headache(s), No lack of coordination, No loss of vision, No memory loss, Yes numbness, No other visual disturbances, No radicular pain, No restless legs, No sensory deficit, No syncope, Yes tingling, No tremor(s), No weakness and No other ROS Narrative h/o TIA in her 20's Exam Const General: cooperative Nutritional Appearance: obese Orientation: alert, awake and oriented x3 Resp Effort & Inspection: normal respiratory effort GI Other: Obese, nondistended, soft, mild tenderness with palpation in the left lower quadrant. With deeper palpation I do believe I palpate at least part of the fascial defect and patient confirms tenderness is greatest in intensity in this location. I do not palpate any herniated bowel contents. In the right upper quadrant there is a negative Love sign. Assessment and Plan Assessment and Plan (1) Spigelian hernia: Status: Acute Comment: Patient is a 70-year-old female who presents for a number of [...] indicated based on patient's symptoms and, further, believerepair may allow gastroenterology to finally complete a colonoscopy. A procedure for robot-assistedspigelian hernia repair with mesh placement was then discussed in detail. Patient is receptive and wishes to be underway once the schedule allows. She was informed of expected activity restrictions to minimize her risk for recurrence postoperatively. Plan: ? Left Robot-assisted spigelian hernia repair with mesh placement. Procedure to be completed with outpatient disposition planned ? MRSA swab in the naris to exclude MRSA colonization and need for preoperative eradication protocol. (2) Cholelithiasis: Status: Acute Comment: Patient with cholelithiasis seen on CT imaging. According to patient's [...] neck portion of the gallbladder. I do notrecommend undertaking cholecystectomy concurrent with spigelian hernia repair due to the risk for cr oss-contamination and perioperative infectious concerns. That being said patient may require cholecystectomy in the future. Patient was advised of symptoms to be watchful towards. Plan: ? No surgical intervention currently planned or indicated for patient's 2.7 cm gallstone. Orders: Orders MRSA/SAID SCREEN (PRE SURG) Today K43.9 - Ventral hernia without obstruction or gangrene Pt presents for L spigelian hernia repair with mesh. She remains in stable state of health. Goals of procedure reviewed w pt and her . Post procedure activity restrictions also reviewed. Ab exam benign and site marked. Consents confirmed. Proceed to OR as planned. 05/28/25716 Cosigner Signature (if applicable): CC: Dr. Kade Fry MD; Dr. Tavon Beauchamp MD~ Signed [facility]10-06-2025 [facility] Medical Records Department [address] [place] [address] History Physical Exam 05/28/25714 MR#: [id number] Acct: [id number] Name: ELISHA GODFREY Rep #: [id number] : 1955 70 From: Tavon Beauchamp MD PCP: Dr. Kade Fry MD Status:[facility] Location: [place] [address] History and Physical Date of Admission: 05/28/25 Date of Service: 05/03/25 MR#: [id number] Acct: [id number] Name: ELISHA GODFREY Rep #: [id number] : 1955 Provider: Dr. Tavon Beauchamp MD Age/Sex: 70/F Location: [facility] Status: Signed Intake Vital Signs 02/12/2509:26 05/03/2513:36 Height 5 ft 1 in 5 ft [...] 800 mg PO TID PRN PRN Pain 05/26/16 05/03/25 Histo ry aspirin 81 mg tablet,delayed 81 mg PO MOWEFR 05/26/16 05/03/25 History release calcium carbonate (Oyster Shell 500 mg PO BID 05/26/16 05/03/25 History Calcium 500) cholecalciferol (vitamin D3) 25 2,000 unit PO BID 05/26/16 05/03/25 History mcg (1,000 unit) tablet (Vitamin D3) fexofenadine-pseudoephedrine ER 1 ea PO DAILY 05/26/16 05/03/25 History 180 mg-240 mg tablet,ext.release 24 hr (Carmelita-D 24 Hour) omega-3 fatty acids-fish oil 340 1 ea PO DAILY 05/26/16 05/03/25 History mg-1,000 mg capsule (Fish Oil) ramipril 5 mg capsule 5 mg PO DAILY 05/26/16 05/03/25 History vitamin B complex 1 ea PO DAILY 05/26/16 05/03/25 History ascorbic acid (vitamin C) 1,000 mg 1 g PO QDAY 11/21/24 05/03/25 History capsule methotrexate sodium 2.5 mg tablet 20 mg PO SA 11/21/24 05/03/25 History folic acid 1 mg tablet 2 mg PO QDAY 11/27/24 05/03/25 History dicyclomine 10 mg capsule 10 mg PO BID PRN abdominal pain 03/09/25 05/03/25 Rx #14 caps famotidine 40 mg tablet 40 mg PO QDAY #30 tabs 04/13/25 05/03/25 Rx Have you fallen in the past [...] referred from PCP, Dr. 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 She reports that she has had left lower quadrant pain for years. She initially ascribed it to a ovarian source, although she confesses that this did not make complete sense as she believes she underwent oophorectomy along with her hysterectomy completed remotely. She shares that this pain seems to "come and go". She also adds that she has had no pain since she started going for further evaluation. She reports when the pain was present it was a "sharp pain" that would "double you over". She wishes to know how this might be connected back to the fact that despite a history of uneventful colonoscopy she has presented twice now for colonoscopy with 2 separate won (more content not included)...[facility]09-15-2025 NoteHNO ID: [id number] Author: NANO RICHARD MA Service: ? Author Type: Acds Block 1 Operator Type: Progress Notes Filed: 05/07/2025 13:00 Note Text: Scan on 05/04/2025 4:35 PM by Provider, External, PA-C: [facility] History of Present illness Narrative* Nano Richard MA - 05/07/2025 12:59 PM EDT Scan on 05/04/2025 4:35 PM by ProviderJose Carlos PA-C: MRSA screening * Ree Ng MA - 05/04/2025 12:37 PM EDT Scan on 05/03/2025 8:17 PM by ProviderJose Carlos PA-C: Tristan documented in [facility]Day[facility]25 NoteHNO ID: [id number] Author: REE NG MA Service: ? Author Type: Acds Block 1 Operator Type: Progress Notes Filed: 05/07/2025 13:00 Note Text: Scan on 05/03/2025 8:17 PM by ProviderJose Carlos PA-C: [facility]08-12-2025 NoteHNO ID: [id number] Author: NANO RICHARD MA Service: ? Author Type: Acds Block 1 Operator Type: Progress Notes Filed: 04/03/2025 16:31 Note Text: Outside imaging CT Abd/Pelv. Nano Richard MA View External Imaging - Abdomen Pelvis [ID [id number]][facility] 04-03-2025 Radiology Diagnostic study note [facility] Imaging Services [address] [place] [address] Abdomen/Pelvis WITH Contrast MR#: [id number] Acct: [id number] Name: BEKAHELISHA M Rep #: [id number] : 1955 F 69 From: Froylan Javier MD PCP: Dr. Kade Fry MD Status: REG CLI Study:Abdomen/Pelvis WITH Contrast Date of Ex am: 04/02/25 Exam# [id number] Ordering Dr: Stew Christianson BACK LINE COOK-C PROCEDURE: ABDOMEN/PELVIS WITH CONTRAST 04/02/2025 REASON FOR [...] spigelian hernia containing fat and nondilated small bowelloops. Bones: Degenerative changes of the spine. Grade 1 anterior listhesis of L4 on L5. CT/Abdomen/Pelvis WITH Contrast IMPRESSION: Solitary gallstone. Left-sided spigelian hernia containing fat and nondilated small bowel loops. Sigmoid diverticulosis. Reading Location: [facility] CC: ANY Christianson; Dr. Kade Fry MD ~ [employer] Hcm Developer: Signed [facility]08-06-2025 NoteHNO ID: [id number] Author: NANO RICHARD MA Service: ? Author Type: Acds Block 1 Operator Type: Progress Notes Filed: 03/28/2025 09:00 Note Text: Outside labs, Non-[facility] ordered. Nano Richard MA View External Labs - CBCD [ID [id number]] View External Labs - CMP [ID [id number]][facility]07-18-2025 Evaluation note* Diagnosis Onset Date Resolution Status Admit Date Abdominal pain chronic March 09, 2025 8:53am Stenosis colon chronic March 09, 2025 8:53am Spigelian hernia acute March 232024 1:13pm Abdominal pain chronic March 1:13pm Cholelithiasis acute May 03, 2025 1:16pm Spigelian hernia acute Septembe r 2024 1:16pm Status post spigelian hernia repair, follow-up exam acute May 232024 9:32am [employer] Work Phone: [phone] NoteHNO ID: [id number] Author: NANO RICHARD MA Service: ? Author Type: Acds Block 1 Operator Type: Progress Notes Filed: 02/21/2025 10:59 Note Text: View External Procedures - Colonoscopy report [ID [id number]] View External Procedures - EGD report [ID [id number]] GI HANDP Scan on 02/12/2025 9:49 AM by ProviderJose Carlos PA-C: H\\EANDE\\P Gastric Study: View External Imaging - Gastric Emptying Study [ID [id number]][facility]06-23-[facility] History of Present illness Narrative* Nano Richard MA - 02/12/2025 1:52 PM EDT View External Procedures - Colonoscopy report [ID [id number]] View External Procedures - EGD report [ID [id number]] GI H&P Scan on 02/12/2025 9:49 AM by ProviderJose Carlos PA-C: H\\T\\P documented in [facility]Day[facility]06-23-2025 Consult note [facility] Medical Records Department [address] [place] [address] Anesthesia Postop Eval II 02/12/25 1149 MR#: [id number] Acct: [id number] Name: ELISHA GODFREY Rep #:[id number] : 1955 69 From: Jimmy Oscar PCP: Dr. Kade Fry MD Status:REG SDC Y Race: C Location: [place] [address] Anesthesia Postop Eval I Sum Postop Eval [...] No Complications Anesthesia Complication: No 02/12/25 1149 MD> Date _ Jimmy Gillis MD Cosigner Signature: Date CC: ~ Signed [facility]06-23-2025 Consult note Author Jimmy Gillis [facility] Note Date/Time February 12, 2025 9:56 am [facility] Medical Records Department [address] [place] [address] Pre-Anesthesia Evaluation 02/12/2553 MR#: [id number] Acct: [id number] Name: ELISHA GODFREY Rep #:[id number] : 1955 69 From: Jimmy Oscar PCP: Dr. 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 Hx Hospitalization No 02/08/25 11:46 Any Problems [...] take am of surgery PONV 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: 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 Female Yes 02/08/25 11:46 HX of Motion [...] 02/12/25 09:26 Respiratory Assessment Respiratory Assessment - 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: Respiratory Tract Infection Hx - 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 Hx Respiratory Tract Infection No 02/08/25 11:46 STOP Sleep Apnea STOP Sleep Apnea - 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: STOP Sleep Apnea - 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 Hx Hypertension Yes: PER PT, CONTROLLED ON [...] 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: 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 Tobacco Use Smoking Status Never smoker 02/08/25 11:46 Hx Tobacco Use No 02/08/25 11:46 Years Smoking Packs Smoked per Day Smoking Cessation Date was within the last 15 years Hx Smoking Cessation Date Hx Smoking Cessation Counseling Hematologic Medial History Hematologic 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 02/12/25 0956 <Electronically signed by Jimmy Gillis MD> Date _ Jimmy Gillis MD Cosigner Signature: Date CC: ~ Signed [facility] Work Phone: 1(600) 670-567406-23-2025 History and physical note Author Darrin Friend [facility] Note Date/Time February 12, 2025 9:42 am [facility] Medical Records Department [address] [place] [address] History & Physical Exam 02/12/25 0941 MR#: [id number] Acct: [id number] Name: ELISHA GODFREY Rep #:[id number] : 1955 69 From: Darrin Lozoya DO PCP: Dr. Kade Fry MD Status:[facility] Location: [place] [address] HPI - General General Date of Admission: 02/12/25 Date of Service: 02/12/25 Chief Complaint: GERD and personal history of polyps HPI Narrative ELISHA GODFREY, is a 69 F who presents for an EGD and colonoscopy. *I established 4.7.25 pt reports that she is [...] it is helpful, but not fully effective. [facility] Medical History Wears glasses Rheumatoid arthritis TIA [...] Unknown Verified 02/12/25 09:25 diphenhydramine (From AdvReac "FEEL Verified 02/12/25 09:25 Benadryl) WEIRD" Family History Mother Arthritis Brother Arthritis Colon [...] Kade Fry MD; Darrin Lozoya DO~ Signed [facility] Work Phone: 1(866) 753-400806-23-2025 Procedure note [facility] Medical Records Department [address] [place] [address] Colonoscopy Report MR#: [id number] Acct: [id number] Name: ELISHA GODFREY Rep #:[id number] : 1955 69 From: Darrin Lozoya DO PCP: Dr. aKde Fry MD Status:[facility] Patient Name: Elisha Godfrey Procedure Date: 02/12/2025 [...] to therapy. Procedure Code(s): --- Professional --- 97705, Colonoscopy, flexible; diagnostic, including collection of specimen(s) by brushing or washing, when performed (separate procedure) CPT copyright 2021 [employer]. All rights reserved. The codes documented in this report are preliminary and upon lastex operator review may be revised to meet current compliance requirements. Darrin Lozoya DO 02/12/2025 11:10:50 AM This report has been signed electronically. Number of Addenda: 0 Note Initiated On: 02/12/2025 10:21 AM 02/12/25 1111 Date _ Darrin Lozoya DO Cosigner Signature: Date (if indicated) CC: Dr. Kade Fry MD; Darrin Lozoya DO ~ Date Dictated: 02/12/25 1021 Date Transcribed: Peoplesoft Hcm Developer: RF Signed [facility]06-23-2025 Procedure note [facility] Medical Records Department [address] [place] [address] Operative Report - CC Letter MR#: [id number] Acct: [id number] Name: ELISHA GODFREY Rep #:[id number] : 1955 69 From: Darrin Lozoya DO PCP: Dr. Kade Fry MD Status:[facility] 02/12/2025 Kade Fry MD Re : Colonoscopy [...] signed electronically. 02/12/25 1111 Date _ Darrin Sauceda Signature: Date (if indicated) CC: Dr. Kade Fry MD; Darrin Lozoya DO ~ Date Dictated: 02/12/25 1021 Date Transcribed: Peoplesoft Hcm Developer: RF Signed [facility]06-23-2025 Consult note [facility] Medical Records Department [address] [place] [address] Anesthesia Postop Eval I 02/12/251107 MR#: [id number] Acct: [id number] Name: ELISHA GODFREY Rep #:[id number] : 1955 69 From: Javier Cat PCP: Dr. Kade Fry MD Status:REG [facility] Y Race: C Location: [place] [address] Anesthesia: Postop Eval I Current Vital Signs [...] document: Postop Eval 1 completed: Yes 02/12/25 110 > Date _ Javier Ruelas Signature: Date CC: ~ Signed [facility]06-23-2025 Procedure note [facility] Medical Records Department [address] [place] [address] EGD Report MR#: [id number] Acct: [id number] Name: ELISHA GODFREY Rep #:[id number] : 1955 69 From: Darrin Lozoya DO PCP: Dr. Kade Fry MD Status:[facility] Patient Name: Elisha Godfrey Procedure Date: 02/12/2025 [...] pathology results. Procedure Code(s): --- Professional --- 41813, Esophagogastroduodenoscopy, flexible, transoral; with biopsy, single or multiple CPT copyright 2021 [employer]. All rights reserved. The codes documented in this report are preliminary and upon lastex operator review may be revised to meet current compliance requirements. Darrin Lozoya DO 02/12/2025 11:05:56 AM This report has been signed electronically. Number of Addenda: 0 Note Initiated On: 02/12/2025 10:04 AM 02/12/25 1106 Date _ Darrin Lozoya DO Cosigner Signature: Date (if indicated) CC: Dr. Kade Fry MD; Darrin Lozoya DO ~ Date Dictated: 02/12/25 1004 Date Transcribed: Peoplesoft Hcm Developer: ABUNDIO Signed [facility]06-23-2025 Procedure note [facility] Medical Records Department [address] [place] [address] Operative Report - CC Letter MR#: [id number] Acct: [id number] Name: ELISHA GODFREY Rep #:[id number] : 1955 69 From: Darrin Lozoya DO PCP: Dr. Kade Fry MD Status:[facility] 02/12/2025 Kade Fry MD Re : Upper [...] This report has been signed electronically. 02/12/25 1106 Date _ Darrin Lozoya DO Cosigner Signature: Date (if indicated) CC: Dr. Kade Fry MD; Darrin Lozoya DO ~ Date Dictated: 02/12/25 1004 Date Transcribed: Peoplesoft Hcm Developer: RF Signed [facility]06-23-2025 Evaluation note* Diagnosis Onset Date Resolution Status Admit Date GERD (gastroesophageal reflu x disease) acute February 12, 2025 8:46am Personal history of colon polyps, unspecified acute February 12, 8:46am Abdominal pain chronic February 12, 2025 8:46am Abdominal pain chronic March 09, 2025 8:53am Stenosis colon chronic March 09, 2025 8:53am [facility] Work Phone: [phone]) 330-921506-23-2025 Evaluation note* Diagnosis Onset Date Resolution Status [...] March 1:13pm [facility] Work Phone: 1(650) 578-258006-23-2025 Evaluation note* Diagnosis Onset Date Resolution Status Admit Date GERD (gastroesophageal reflu x disease) acute February 12, 2025 8:46am Personal history of colon polyps, unspecified acute February 12 025 8:46am Abdominal pain chronic February 12, 2025 8:46am Abdominal pain chronic March 09, 2025 8:53am Stenosis colon chronic March 09, 2025 8:53am Spigelian hernia acute March 232024 1:13pm Abdominal pain chronic March 1:13pm [facility] Work Phone: 1(317) 458-857906-23-2025 Evaluation note* Diagnosis Onset Date Resolution Status [...] 2025 1:16pm Spigelian hernia acute 2024 1:16pm [facility] Work Phone: 1(259) [phone] Consult note [facility] Medical Records Department [address] [place] [address] Pre-Anesthesia Evaluation 02/12/25 0953 MR#: [id number] Acct: [id number] Name: ELISHA GODFREY Rep #:[id number] : 1955 69 From: Jimmy Oscar PCP: Dr. 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] 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: 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 Tobacco Use Smoking Status Never smoker 02/08/25 11:46 Hx Tobacco Use No 02/08/25 11:46 Years Smoking Packs Smoked per Day Smoking Cessation Date was within the last 15 years Hx Smoking Cessation Date Hx Smoking Cessation Counseling Hematologic Medial History Hematologic 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 02/12/25 0956 MD> Date _ Jimmy Gillis MD Cosigner Signature: Date CC: ~ Signed [facility]06-23-2025 History and physical note [facility] Medical Records Department [address] [place] [address] History & Physical Exam 02/12/25 0941 MR#: [id number] Acct: [id number] Name: ELISHA GODFREY Gray Rep #:[id number] : 1955 69 From: Darrin Friend DO PCP: Dr. Kade Fry MD Status:[facility] Location: [place] [address] HPI - General General Date of Admission: 02/12/25 Date of Service: 02/12/25 Chief Complaint: GERD and personal history of polyps HPI Narrative ELISHA GODFREY, is a 69 F who presents for an EGD and colonoscopy. *[facility] established 4.7.25 pt reports that she [...] it is helpful, but not fully effective. [facility] Medical History Wears glasses Rheumatoid arthritis TIA [...] Unknown Verified 02/12/25 09:25 diphenhydramine (From AdvReac "FEEL Verified 02/12/25 09:25 Benadryl) WEIRD" Family History Mother Arthritis Brother Arthritis Colon [...] Kade Fry MD; Darrin Lozoya DO~ Signed [facility]06-23-2025 [facility] Medical Records Department [address] [place] [address] History Physical Exam 02/12/25 0941 MR#: [id number] Acct: [id number] Name: ELISHA GODFREY Rep #: [id number] : 1955 69 From: Darrin Lozoya DO PCP: Dr. Kade Fry MD Status:[facility] Location: [place] [address] HPI - General General Date of Admission: 02/12/25 Date of Service: 02/12/25 Chief Complaint: GERD and personal history of polyps HPI Narrative ELISHA GODFREY, is a 69 F who presents for an EGD and colonoscopy. *[facility] established 4.7.25 pt reports that she [...] it is helpful, but not fully effective. [facility] Medical History Wears glasses Rheumatoid arthritis TIA [...] Unknown Verified 02/12/25 09:25 diphenhydramine (From AdvReac "FEEL Verified 02/12/25 09:25 Benadryl) WEIRD" Family History Mother Arthritis Brother Arthritis Colon [...] healthy appearing General Appeara (more content not included)...[facility] 01-19-2025 Telephone encounter Note* Telephone Encounter - [...] Celia Chanel January 19, 2025 11:28 AM [facility]05-30-2025 Miscellaneous Notes* Telephone Encounter - [...] 19, 2025 11:28 AM documented in this encounterDay[facility]04-29-2025 NoteHNO ID: [id number] Author: REMINGTON PEREYRA LPN Service: ? Author Type: LICENSED NURSE Type: Progress Notes Filed: 12/19/2024 07:14 Note Text: Scan on 12/18/2024 7:57 PM by Provider, External, PASandraC: [facility]04-29-2025 History of Present illness Narrative* Remington Pereyra LPN - 12/19/2024 7:14 AM EDT Scan on 12/18/2024 7:57 PM by Provider, External, EDIS: GI documented in this encounterDayton [facility]04-16-2025 Telephone encounter Note * Telephone Encounter - Remington Pereyra LPN - 12/06/2024 9:39 AM EDT Patient notified of results and provider's instructions. Patient verbalizes understanding. Pt assisted in transfer to schedule repeat imaging in 6 months. Remington Pereyra LPN [facility]04-16-2025 Miscellaneous Notes* Telephone Encounter - [...] 6 months. Order placed. documented in this encounterDayton [facility]04-15-2025 Telephone encounter Note * Telephone Encounter - Kade Fry MD - 12/05/2024 9:15 PM EDT Let patient know a small asymmetry )0.5 cm) seen in the right breast on x-ray was not seen on US and suspected to be benign. However recommendation is to repeat imaging in 6 months. Order placed. 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 Author Type: LICENSED NURSE Type: Progress Notes Filed: 12/01/2024 16:13 Note Text: Scan on 11/30/2024 10:38 AM by Jose Carlos Phelps PA-C: Miscellaneous Lab [facility]04-11-2025 History of Present illness Narrative* Remington Pereyra LPN - 12/01/2024 4:13 PM EDT Scan on 11/30/2024 10:38 AM by Jose Carlos Phelps PA-C: Miscellaneous Lab documented in this encounterDayton [facility] Medical Center04-09-2025 NoteHNO ID: [id number] Author: FELICIANO LEAHY MA Service: ? Author Type: Acds Block 1 Operator Type: Progress Notes Filed: 11/29/2024 13:46 Note Text: Scan on 11/27/2024 10:35 AM by Jose Carlos Phelps PA-C: Chemistry Scan on 11/27/2024 11:41 AM by Jose Carlos Phelps PA-C: Chemistry Feliciano Leahy [facility]04-09-2025 History of Present illness Narrative* Feliciano Leahy MA - 11/29/2024 1:46 PM EDT Scan on 11/27/2024 10:35 AM by Jose Carlos Phelps PA-C: Chemistry Scan on 11/27/2024 11:41 AM by Jose Carlos Phelps PA-C: Chemistry Feliciano Leahy MA documented in this encounterDayton [facility] Medical Center04-07-2025 NoteHNO ID: [id number] Author: CAROL HARTMAN MA Service: ? Author Type: Acds Block 1 Operator Type: Progress Notes Filed: 11/27/2024 18:41 Note Text: PT ASSESSMENT - CASTING ROOM Elisha presents for Application of brace. Applied Huma and Andersen Modabber wrist brace to Left wrist. Patient tolerated well. Patient has been instructed in Care and proper application of brace. Patient verbalized understanding. Carol Hartman [facility]04-07-2025 History of Present illness Narrative* Carol Hartman [...] Manoj Gamino MD Department of Orthopaedics Orthopaedics [facility][note 3] [address] [facility] [address] Dept: [phone] Dept November 27, 2024 CHIEF COMPLAINT: Established [...] repeat in 3 years, with MAC at [facility] COLONOSCOPY FLX DX W/COLLJ SPEC WHEN PFRMD 02/22/2006 COLONOSCOPY FLX DX W/COLLJ SPEC WHEN PFRMD 03/23/2016 Colonoscopy, repeat 5 years EGD W/O [facility] SPEC VARICIES INJ 10/29/2021 ESOPHAGOGASTRODUODENOSCOPY TRANSORAL DIAGNOSTIC 12/23/1998 EGD LAPAROSCOPIC APPENDECTOMY 07/12/2007 Early acute LIG/TRNSXJ FLP TUBE ABDL/VAG APPR UNI/BI Tubal ligation PAST SURGICAL HISTORY OF lipoma back, left back PAST SURGICAL HISTORY OF Right 06/02/2016 Dr. Matthew COATS, Right Knee Scope PAST SURGICAL HISTORY OF Left bone spur and cyst removal left thumb SLING OPER STRES INCONTINENCE 09/20/2012 [place] and cystoscopy TONSILLECTOMY HX TONSILLECTOMY PRIMARY/SECONDARY <AGE [...] ALLERGY) 32 mcg/actuation nasal spray Use 1 [place] in each nostril as needed. ramipril (ALTACE) [...] The patient consented to the use of ambient AI software for draft documentation of the visit consistent with [facility] s Notice of Privacy Practices. Manoj Gamino MD documented in this encounterDayton Va Medical Center04-07-2025 NoteHNO ID: [id number] Author: MANOJ GAMINO MD Service: ? Author Type: Physician Type: Progress Notes Filed: 11/27/2024 18:41 Note Text: Manoj Gamino MD Department of Orthopaedics Orthopaedics [address] [facility] [address] Dept: [phone] Dept November 27, 2024 CHIEF COMPLAINT: Established Patient and Follow Up of the Left Hand NAV Tello is a 69-year-old female presenting for follow-up [...] repeat in 3 years, with MAC at [facility] (more content not included)...[facility]04-07-2025 Evaluation note* Diagnosis Onset Date Resolution Status Admit Date Abdominal pain acute November 27, 2024 8:21am GERD (gastroesophageal reflu x disease) acute November 27, 2024 8:21am Personal history of colon po lyps, unspecified acute November 27, 2024 8:21am [facility] Work Phone: 1(738) 527-470004-07-2025 Evaluation note* Diagnosis Onset Date Resolution Status [...] lyps, unspecified acute February 12, 2025 8:46am [facility] Work Phone: 1(532) [phone] Evaluation note* Diagnosis Onset Date Resolution Status [...] 2025 8:53am [facility] Work Phone: 1(590) 506-427304-03-2025 Instructions* Patient Instructions* Chetan Bhagat - 11/23/2024 10:12 AM EDT Your wounds are healing nicely Continue with band aide during the day for a few more days Once completely dry, can go without band aide Ok to "air-out" the toe at night documented in this encounterDayton [facility] Medical Center04-03-2025 NoteHNO ID: [id number] Author: HCETAN BHAGAT, ? Service: ? Author Type: Physician [...] (H) 4.3 - 5.6 % Final Comment: [employer] guidelines indicate that patients with [...] ALLERGY) 32 mcg/actuation nasal spray Use 1 [place] in each nostril as needed. ramipril (ALTACE) [...] [Diphenhyd* Other: See Comments makes her feel "weird" Fosamax [Alendronat* Other: See Comments GERD Latex Unknown PAST SURGICAL HISTORY Procedure Laterality Date APPENDECTOMY HX BREAST BIOPSY CMBND ANTERPOST COLPORRAPHY W/CYSTO 09/20/2012 COLONOSCOPY 10/29/2021 repeat in 3 years, with MAC at [facility] COLONOSCOPY FLX DX W/COLLJ SPEC WHEN PFRMD 02/22/2006 COLONOSCOPY FLX DX W/COLLJ SPEC WHEN PFRMD 03/23/2016 Colonoscopy, repeat 5 years EGD W/O [facility] SPEC VARICIES INJ 10/29/2021 ESOPHAGOGASTRODUODENOSCOPY TRANSORAL DIAGNOSTIC 12/23/1998 EGD LAPAROSCOPIC APPENDECTOMY 07/12/2007 Early acute LIG/TRNSXJ FLP TUBE ABDL/VAG APPR UNI/BI Tubal ligation PAST SURGICAL HISTORY OF lipoma back, left back PAST SURGICAL HISTORY OF Right 06/02/2016 Dr. Matthew COATS, Right Knee Scope PAST SURGICAL HIS (more content not included)...[facility] 11-23-2024 History of Present illness Narrative* Chetan [...] (H) 4.3 - 5.6 % Final Comment: [employer] guidelines indicate that patients with [...] ALLERGY) 32 mcg/actuation nasal spray Use 1 [place] in each nostril as needed. ramipril (ALTACE) [...] [Diphenhyd* Other: See Comments makes her feel "weird" Fosamax [Alendronat* Other: See Comments GERD Latex Unknown PAST SURGICAL HISTORY Procedure Laterality Date APPENDECTOMY HX BREAST BIOPSY CMBND ANTERPOST COLPORRAPHY W/CYSTO 09/20/2012 COLONOSCOPY 10/29/2021 repeat in 3 years, with MAC at [facility] COLONOSCOPY FLX DX W/COLLJ SPEC WHEN PFRMD 02/22/2006 COLONOSCOPY FLX DX W/COLLJ SPEC WHEN PFRMD 03/23/2016 Colonoscopy, repeat 5 years EGD W/O [facility] SPEC VARICIES INJ 10/29/2021 ESOPHAGOGASTRODUODENOSCOPY TRANSORAL DIAGNOSTIC 12/23/1998 EGD LAPAROSCOPIC APPENDECTOMY 07/12/2007 Early acute LIG/TRNSXJ FLP TUBE ABDL/VAG APPR UNI/BI Tubal ligation PAST SURGICAL HISTORY OF lipoma back, left back PAST SURGICAL HISTORY OF Right 06/02/2016 Dr. Matthew COATS, Right Knee Scope PAST SURGICAL HISTORY OF Left bone spur and cyst removal left thumb SLING OPER STRES INCONTINENCE 09/20/2012 [place] and cystoscopy TONSILLECTOMY HX TONSILLECTOMY PRIMARY/SECONDARY <AGE [...] shoes and the dressings. documented in this encounterDayton [facility] Medical Center04-03-2025 NoteHNO ID: [id number] Author: CAROL HARTMAN MA Service: ? Author Type: Acds Block 1 Operator Type: Progress Notes Filed: 11/23/2024 10:15 Note [...] pain is from her shoes and the dressings.[facility]03-26-2025 NoteHNO ID: [id number] Author: FELICIANO LEAHY MA Service: ? Author Type: Acds Block 1 Operator Type: Progress Notes Filed: 11/15/2024 16:12 Note Text: Scan on 11/14/2024 1:49 PM by ProviderJose Carlos PA-C: Neurology Feliciano Leahy [facility]03-26-2025 History of Present illness Narrative* Feliciano Leahy MA - 11/15/2024 4:06 PM EDT Scan on 11/14/2024 1:49 PM by ProviderJose Carlos PASandraC: Neurology Feliciano Leahy MA documented in this encounterDayton [facility] Medical Center03-26-2025 Telephone encounter Note * Telephone Encounter - Maci Borja - 11/15/2024 3:24 PM EDT Spoke with patient and transferred to the Breast Center for scheduling. Maci Borja [facility]03-26-2025 Miscellaneous Notes* Telephone Encounter - Maci Borja - 11/15/2024 3:24 PM EDT Spoke with patient and transferred to the Breast Center for scheduling. Maci Borja * Telephone Encounter [...] additional imaging. Orders placed. documented in this encounterDayton Va Medical Center03-25-2025 Procedure note [facility] Pulmonary Services/Neurology [address] [place] [address] MR#: [id number] Acct: [id number] Name: ELISHA GODFREY Rep #:[id number] : 1955 69 From: Chas Bello MD Referring Dr: Manoj Gamino MD Sta tus: REG CLI Location: [facility] Date: 11/14/24 Sex: F C NCS and/or [...] Multi Select Codes Neurology Neurology Interp Codes: 37004-01 Musc test done w/n test comp (interp) (1) and 02513-81 Nrv cndj test 7-8 studies (interp) 11/14/24 1346 MD> Date _ Chas Bello MD CC: Dr. Chas Bello MD; Dr. Manoj Gamino MD; Dr. Kade Fry MD ~ Date Dictated: 11/14/24 1131 Date Transcribed: 11/14/24 113 Peoplesoft Hcm Developer: Signed [facility]03-25-2025 Telephone encounter Note* Telephone Encounter - Feliciano Leahy MA - 11/14/2024 10:31 AM EDT Patient notified and voiced understanding. Patient was unable to be transfer at another appointment. Please contact patient to schedule. Feliciano Leahy MA [facility]03-24-2025 Telephone encounter Note* Telephone Encounter - Kade Fry MD - 11/13/2024 3:46 PM EDT Let patient know her mammogram showed an asymmetry in the right breast that needs additional imaging. Orders placed. [facility]03-24-2025 History of Present illness Narrative* [...] PATIENT PRESENTS WITH AN IMPLANTABLE OR ATTACHED SQL SERVER BI DEVELOPER: No RADIOLOGY DEPARTMENT: Mammography PERIPHERAL IV DATA: Not applicable SIGNED BY: Jimbo Silva November 13, 2024 11:00 AM documented in this encounterDayton Va Medical Center03-24-2025 NoteHNO ID: [id number] Author: TODD ZUNIGA Mammo Tech Service: ? Author Type: Academic Affairs Vice President Type: Progress Notes Filed: 11/13/2024 11:00 Note [...] PATIENT PRESENTS WITH AN IMPLANTABLE OR ATTACHED SQL SERVER BI DEVELOPER: No RADIOLOGY DEPARTMENT: Mammography PERIPHERAL IV DATA: Not applicable SIGNED BY: Jimbo Silva November 13, 2024 11:00 [facility]03-11-2025 NoteHNO ID: [id number] Author: MAUREEN DE LA TORRE LPN Service: [...] has been communicated to the patient or surrogate.[facility]03-11-2025 History of Present illness Narrative* Maureen De [...] follow up:nail thickening of b/l hallux and ickg2go toe Patient presents to clinic for follow-up b/l hallux and left 2nd toenail thickening These cause her pain and at times, has developed infection She has no infection currently She is here today requesting nail removal PAIN EVALUATION No data found in the last 1 encounters. Hemoglobin A1C Date Value Ref Range Status 09/14/2024 5.7 (H) 4.3 - 5.6 % Final Comment: [place] [employer] guidelines indicate that patients with [...] ALLERGY) 32 mcg/actuation nasal spray Use 1 [place] in each nostril as needed. ramipril (ALTACE) [...] [Diphenhyd* Other: See Comments makes her feel "weird" Fosamax [Alendronat* Other: See Comments GERD Latex Unknown PAST SURGICAL HISTORY Procedure Laterality Date APPENDECTOMY HX BREAST BIOPSY CMBND ANTERPOST COLPORRAPHY W/CYSTO 09/20/2012 COLONOSCOPY 10/29/2021 repeat in 3 years, with MAC at [facility] COLONOSCOPY FLX DX W/COLLJ SPEC WHEN PFRMD 02/22/2006 COLONOSCOPY FLX DX W/COLLJ SPEC WHEN PFRMD 03/23/2016 Colonoscopy, repeat 5 years EGD W/O [facility] SPEC VARICIES INJ 10/29/2021 ESOPHAGOGASTRODUODENOSCOPY TRANSORAL DIAGNOSTIC 12/23/1998 EGD LAPAROSCOPIC APPENDECTOMY 07/12/2007 Early acute LIG/TRNSXJ FLP TUBE ABDL/VAG APPR UNI/BI Tubal ligation PAST SURGICAL HISTORY OF lipoma back, left back PAST SURGICAL HISTORY OF Right 06/02/2016 Dr. Matthew COATS, Right Knee Scope PAST SURGICAL HISTORY OF Left bone spur and cyst removal left thumb SLING OPER STRES INCONTINENCE 09/20/2012 [place] and cystoscopy TONSILLECTOMY HX TONSILLECTOMY PRIMARY/SECONDARY <AGE [...] depressed or anxious. Vascular: Non-Invasive Vascular Laboratory [facility] Lower Extremity Arterial Physiology Study Bilateral/Complete Date [...] Normal at rest. Technologist: Sarah Ferrera RVT, [facility] Ordering physician: CHETAN BHAGAT Interpreting physician: [...] De La Torre LPN documented in this encounterDayton [facility] Center03-11-2025 NoteHNO ID: [id number] Author: CHETAN BHAGAT, ? Service: ? Author [...] (H) 4.3 - 5.6 % Final Comment: [place] [employer] guidelines indicate that patients with [...] ALLERGY) 32 mcg/actuation nasal spray Use 1 [place] in each nostril as needed. ramipril (ALTACE) [...] [Diphenhyd* Other: See Comments makes her feel "weird" Fosamax [Alendronat* Other: See Comments GERD Latex Unknown PAST SURGICAL HISTORY Procedure Laterality Date APPENDECTOMY HX BREAST BIOPSY CMBND ANTERPOST COLPORRAPHY W/CYSTO 09/20/2012 COLONOSCOPY 10/29/2021 repeat in 3 years, with MAC at [facility] COLONOSCOPY FLX DX W/COLLJ SPEC WHEN PFRMD 02/22/2006 COLONOSCOPY FLX DX W/COLLJ SPEC WHEN PFRMD 03/23/2016 Colonoscopy, repeat 5 years EGD W/O [facility] SPEC VARICIES INJ 10/29/2021 ESOPHAGOGASTRODUODENOSCOPY TRANSORAL DIAGNOSTIC 12/23/1998 EGD LAPAROSCOPIC APPENDECTOMY 07/12/2007 Early acute LIG/TRNSXJ FLP TUBE ABDL/VAG APPR UNI/BI Tubal ligation PAST SURGICAL HISTORY OF lipoma back, left back PAST SURGICAL HISTORY OF Right 06/02/2016 Dr. Matthew COATS, Right Knee Scope PAST SURGICAL HISTORY OF Left bone spur and cyst removal left thumb SLING O (more content not included)...[facility]03-11-2025 Instructions* Patient Instructions* Sayra Clifford RN - 10/31/2024 11:02 AM EDT [...] as well if you have any questions/concerns [phone], ask for Podiatry Nurse documented in this encounterDayton Va Medical Center03-11-2025 NoteHNO ID: [id number] Author: MAUREEN DE LA TORRE LPN Service: ? Author Type: LICENSED NURSE Type: Progress Notes Filed: 10/31/2024 12:51 Note Text: AMB ROOMING INTAKE FLOWSHEET DATA Patient presents with: Left Foot - Established Patient, Procedure: Great toe and 2nd toe Right Foot - Established Patient, Procedure: Great toe [facility] Tele[facility] encounter Note* Telephone Encounter - Maureen De La Torre LPN - 10/18/2024 8:44 AM EST Patient notified of results and provider's instructions. Patient verbalizes understanding. Maureen De La Torre LPN [facility] Work Phone: [phone] Miscellaneous Notes* Telephone Encounter - Maureen De La Torre LPN - 10/18/2024 8:44 AM EST Patient notified of results and provider's instructions. Patient verbalizes understanding. Maureen De La Torre LPN documented in this encounterDayton Va Medical Center02-24-2025 NoteHNO ID: [id number] Author: CHETAN BHAGAT, ? Service: ? Author [...] ALLERGY) 32 mcg/actuation nasal spray Use 1 [place] in each nostril as needed. ramipril (ALTACE) [...] [Diphenhyd* Other: See Comments makes her feel "weird" Fosamax [Alendronat* Other: See Comments GERD Latex Unknown PAST SURGICAL HISTORY Procedure Laterality Date APPENDECTOMY HX BREAST BIOPSY CMBND ANTERPOST COLPORRAPHY W/CYSTO 09/20/2012 COLONOSCOPY 10/29/2021 repeat in 3 years, with MAC at [facility] COLONOSCOPY FLX DX W/COLLJ SPEC WHEN PFRMD 02/22/2006 COLONOSCOPY FLX DX W/COLLJ SPEC WHEN PFRMD 03/23/2016 Colonoscopy, repeat 5 years EGD W/O [facility] SPEC VARICIES INJ 10/29/2021 ESOPHAGOGASTRODUODENOSCOPY TRANSORAL DIAGNOSTIC 12/23/1998 EGD LAPAROSCOPIC APPENDECTOMY 07/12/2007 Early acute LIG/TRNSXJ FLP TUBE ABDL/VAG APPR UN (more content not included)...[facility]02-24-2025 History of Present illness Narrative* Chetan Bhagat - 10/16/2024 11:08 AM EST Consultation requested [...] ALLERGY) 32 mcg/actuation nasal spray Use 1 [place] in each nostril as needed. ramipril (ALTACE) [...] [Diphenhyd* Other: See Comments makes her feel "weird" Fosamax [Alendronat* Other: See Comments GERD Latex Unknown PAST SURGICAL HISTORY Procedure Laterality Date APPENDECTOMY HX BREAST BIOPSY CMBND ANTERPOST COLPORRAPHY W/CYSTO 09/20/2012 COLONOSCOPY 10/29/2021 repeat in 3 years, with MAC at [facility] COLONOSCOPY FLX DX W/COLLJ SPEC WHEN PFRMD 02/22/2006 COLONOSCOPY FLX DX W/COLLJ SPEC WHEN PFRMD 03/23/2016 Colonoscopy, repeat 5 years EGD W/O [facility] SPEC VARICIES INJ 10/29/2021 ESOPHAGOGASTRODUODENOSCOPY TRANSORAL DIAGNOSTIC 12/23/1998 EGD LAPAROSCOPIC APPENDECTOMY 07/12/2007 Early acute LIG/TRNSXJ FLP TUBE ABDL/VAG APPR UNI/BI Tubal ligation PAST SURGICAL HISTORY OF lipoma back, left back PAST SURGICAL HISTORY OF Right 06/02/2016 Dr. Matthew COATS, Right Knee Scope PAST SURGICAL HISTORY OF Left bone spur and cyst removal left thumb SLING OPER STRES INCONTINENCE 09/20/2012 [place] and cystoscopy TONSILLECTOMY HX TONSILLECTOMY PRIMARY/SECONDARY <AGE [...] pvr Chetan Bhagat DPM Podiatry [address] [address] Dept: [phone] Dept * Sayra Clifford RN - 10/16/2024 [...] which is also uncomfortable. documented in this encounterDayton Va Medical Center02-24-2025 NoteHNO ID: [id number] Author: SAYRA CLIFFORD RN Service: ? Author [...] so they are long which is also uncomfortable.[facility] 10-16-2024 NoteHNO ID: [id number] Author: MANOJ GAMINO MD Service: ? Author Type: Physician Type: Progress Notes Filed: 10/16/2024 12:26 Note Text: Manoj Gamino MD Department of Orthopaedics Orthopaedics [address] [address] Dept: [phone] Dept October 16, 2024 CHIEF COMPLAINT: New and Numbness of the Left Hand and Trigger Finger of the Left Thumb (Referred by Dr. Fry) HPI Patient here for evaluation left hand numbness and tingling. Her left thumb has also been locking. Patient states she has had the numbness and tingling for about 3 months. 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 IMAGING: IMPRESSION: No acute osseous abnormality [employer] Hcm Developer: PATO Transcribe Date/Time: Aug 24 2023 10:23A [...] these instructions. Informed Consent Consent Obtained: Verbal [place] Protocol A moment to CARE was completed. [...] Elevated blood sugar 09/21 (more content not included)...[facility]02-24-2025 History of Present illness Narrative* Manoj Gamino MD - 10/16/2024 9:03 AM ESTAssociated Order(s): Additional Injections: L thumb A1 Post-Procedure Diagnose(s): Trigger finger of left thumb Manoj Gamino MD Department of Orthopaedics Orthopaedics [address] [address] Dept: [phone] Dept October 16, 2024 CHIEF COMPLAINT: New and Numbness of the Left Hand and Trigger Finger of the Left Thumb (Referred by Dr. Fry) HPI Patient here for evaluation left hand numbness and tingling. Her left thumb has also been locking. Patient states she has had the numbness and tingling for about 3 months. 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 IMAGING: IMPRESSION: No acute osseous abnormality [employer] Hcm Developer: PATO Transcribe Date/Time: Aug 24 2023 10:23A [...] these instructions. Informed Consent Consent Obtained: Verbal [place] Protocol A moment to CARE was completed. [...] repeat in 3 years, with MAC at [facility] COLONOSCOPY FLX DX W/COLLJ SPEC WHEN PFRMD 02/22/2006 COLONOSCOPY FLX DX W/COLLJ SPEC WHEN PFRMD 03/23/2016 Colonoscopy, repeat 5 years EGD W/O [facility] SPEC VARICIES INJ 10/29/2021 ESOPHAGOGASTRODUODENOSCOPY TRANSORAL DIAGNOSTIC 12/23/1998 EGD LAPAROSCOPIC APPENDECTOMY 07/12/2007 Early acute LIG/TRNSXJ FLP TUBE ABDL/VAG APPR UNI/BI Tubal ligation PAST SURGICAL HISTORY OF lipoma back, left back PAST SURGICAL HISTORY OF Right 06/02/2016 Dr. Matthew COATS, Right Knee Scope PAST SURGICAL HISTORY OF Left bone spur and cyst removal left thumb SLING OPER STRES INCONTINENCE 09/20/2012 [place] and cystoscopy TONSILLECTOMY HX TONSILLECTOMY PRIMARY/SECONDARY <AGE [...] ALLERGY) 32 mcg/actuation nasal spray Use 1 [place] in each nostril as needed. ramipril (ALTACE) [...] anxiety) Manoj Gamino MD documented in this encounterDayton Va Medical Center02-11-2025 NoteHNO ID: [id number] Author: REMINGTON PEREYRA LPN Service: ? Author Type: LICENSED NURSE Type: Progress Notes Filed: 10/03/2024 12:07 Note Text: Scan on 10/03/2024 11:20 AM by Jose Carlos Phelps PA-C: Chemistry Scan on 10/03/2024 10:46 AM by Jose Carlos Phelps PA-C: [facility]ologySum[facility]02-11-20[facility] History of Present illness Narrative* Remington Pereyra LPN - 10/03/2024 12:06 PM EST Scan on 10/03/2024 11:20 AM by Jose Carlos Phelps PA-C: Chemistry Scan on 10/03/2024 10:46 AM by Jose Carlos Phelps PA-C: Hematology documented in this encounterDayton Va Medical Center02-03-2025 Telephone encounter Note * Telephone [...] Naik RN September 25, 2024 9:24 AM [facility]02-03-2025 Miscellaneous Notes* Telephone Encounter - [...] 25, 2024 9:24 AM documented in this encounterDayton Va Medical Center01-30-2025 Instructions* Patient Instructions* Kade Fry [...] review all the medicines you take, even eknm-pwk-flrsaaz medicines. As you get older, the way [...] have certain medical conditions. documented in this encounterDayton Va Medical Center01-30-2025 History of Present illness Narrative* [...] General (Family Medicine) Addie Birmingham APRN.ROSHAN as Drafter Geological (Family Medicine) Ena Aguiar PA-C as Drafter Geological (Family Medicine) Dr. Crockett: Rheum Medical/Family history [...] Pulse (!) 58 Ht 156.2 cm (5' 1.5") Wt 88.4 kg (194 lb 12.8 oz) [...] repeat in 3 years, with MAC at [facility] COLONOSCOPY FLX DX W/COLLJ SPEC WHEN PFRMD 02/22/2006 COLONOSCOPY FLX DX W/COLLJ SPEC WHEN PFRMD 03/23/2016 Colonoscopy, repeat 5 years EGD W/O [facility] SPEC VARICIES INJ 10/29/2021 ESOPHAGOGASTRODUODENOSCOPY TRANSORAL DIAGNOSTIC 12/23/1998 EGD LAPAROSCOPIC APPENDECTOMY 07/12/2007 Early acute LIG/TRNSXJ FLP TUBE ABDL/VAG APPR UNI/BI Tubal ligation PAST SURGICAL HISTORY OF lipoma back, left back PAST SURGICAL HISTORY OF Right 06/02/2016 Dr. Matthew COATS, Right Knee Scope SLING OPER STRES INCONTINENCE 09/20/2012 [place] and cystoscopy TONSILLECTOMY HX TONSILLECTOMY PRIMARY/SECONDARY <AGE [...] [Diphenhyd* Other: See Comments makes her feel "weird" Fosamax [Alendronat* Other: See Comments GERD Latex [...] ALLERGY) 32 mcg/actuation nasal spray Use 1 [place] in each nostril once daily.(Patient taking differently: Use 1 [place] in each nostril as needed.) fexofenadine hcl(CARMELITA [...] Pulse (!) 58 Ht 156.2 cm (5' 1.5") Wt 88.4 kg (194 lb 12.8 oz) BMI 36.21 kg/m BP 138/78 Pulse (!) 58 Ht 156.2 cm (5' 1.5") Wt 88.4 kg (194 lb 12.8 oz) [...] Colorectal Cancer Screening due on 10/29/2022 Covid-19 Vaccine(2023- season) due on 08/04/2024 Advance Directive Discussion [...] Lymph 1.00 - 4.00 k/uL 1.20 1.12 [place]% % 6.6 6.1 Abs [place] <0.87 k/uL 0.24 0.25 E[place]% % 3.6 [...] Negative Negative Ketones, Urine Negative Negative Specific [place], Ur 1.005 - 1.030 1.011 Hemoglobin/Blood,Ur Negative [...] which included preparing to see the patient, weys-aj-qibl patient care, completing clinical documentation, performing a medically appropriate examination, counseling and educating the patient/family/caregiver and ordering medications, tests, or procedures. Kade Fry MD documented in this encounterDayton Va Medical Center01-30-2025 NoteHNO ID: [id number] Author: KADE FRY MD Service: ? Author [...] PCP - General (Family Medicine) Addie Birmingham APRN.CNP as Drafter Geological (Family Medicine) Ena Aguiar PA-C as Drafter Geological (Family Medicine) Dr. Crockett: Rheum Medical/Family history [...] Pulse (!) 58 Ht 156.2 cm (5' 1.5") Wt 88.4 kg (194 lb 12.8 oz) [...] repeat in 3 years, with MAC at [facility] COLONOSCOPY FLX DX W/COLLJ SPEC WHEN PFRMD [...] Knee Scope SLING OPER STRES INCONTINENCE 09/20/2012 [place] and cystoscopy TONSILLECTOMY HX TONSILLECTOMY PRIMARY/SECONDARY Tonsillectomy VAG HYST 250 GM/< W/RMVL TUBEAND/OVARY 09/20/2012 TVH/BSO, for prolapse w/ Santos's VAGINAL HYSTERECTOMY Family History FAMILY HISTORY Problem Relation Age of Onset (more content not included)...[facility]12-20-2024 Telephone encounter Note* Telephone Encounter - Kade Fry MD - 08/11/2024 10:32 AM EST The following approved medication requests have been transmitted electronically. Requested Prescriptions Signed Prescriptions Disp Refills ramipril (ALTACE) 5 mg capsule 14 capsule 0 Sig: Take 1 capsule by mouth once daily. Authorizing Provider: KADE FRY MD Labs placed [facility]12-20-2024 Miscellaneous Notes* Telephone Encounter - [...] drawn prior. Orders pended. documented in this encounterDayton Va Medical Center12-20-2024 Telephone encounter Note * Telephone [...] to get labs drawn prior. Orders pended. [facility]09-30-2024 History of Present illness Narrative* Remington Pereyra LPN - 05/22/2024 6:49 AM EDT Scan on 05/19/2024 1:16 PM by Provider, EDIS Branch: Hematology documented in this encounterDayton Va Medical Center08-26-2024 History of Present illness Narrative* Feliciano Leahy MA - 04/17/2024 4:10 PM EDT Scan on 04/17/2024 10:47 AM by ProviderJose Carlso PA-C: Hematology Scan on 04/17/2024 11:42 AM by Jose Carlos Phelps PA-C: Chemistry Feliciano Leahy MA' documented in this encounterDayton Va Medical Center06-21-2024 History of Present illness Narrative* Mesha Urias - 02/11/2024 9:04 AM EDT Elisha Godfrey is identified through a medication adherence outreach initiative based on pharmacy claims data from [employer] (insurer) for ROLLY medication(s). Patient is reviewed [...] reconcile dispense Mesha Urias documented in this encounterDayton Va Medical Center05-31-2024 History of Present illness Narrative* Sangita Jay LPN - 01/21/2024 12:47 PM EDT Scan on 01/21/2024 11:11 AM by ProviderJose Carlos PA-C: Chemistry Scan on 01/21/2024 10:36 AM by Jose Carlos Phelps PA-C: Chemistry Sangita Jay LPN documented in this encounterDayton Va Medical Center05-28-2024 Telephone encounter Note * Telephone Encounter - Libby Ramirez Sandra - 01/18/2024 1:18 PM EDT Patient has [...] care: Please advise. Thank you. Sandra Ramirez. [facility]05-28-2024 Miscellaneous Notes* Telephone Encounter - [...] care: Please advise. Thank you. Sandra Ramirez. documented in this encounterDayton Va Medical Center04-22-2024 Telephone encounter Note * Telephone Encounter - Sangita Jay LPN - 12/13/2023 1:27 PM EDT Pt notified of message, pt states she is not sure which route to take, states she will think about it & call back with her choice. Sangita Jay LPN [facility]04-22-2024 Miscellaneous Notes* Telephone Encounter - [...] to please advise patient. documented in this encounterDayton Va Medical Center04-22-2024 Telephone encounter Note * Telephone Encounter - Kade Fry MD - 12/13/2023 12:37 PM EDT Let patient know we can try a different once a week medication or I can refer her to Endocrinology to discuss injection options. [facility]04-22-2024 Telephone encounter Note* Telephone Encounter [...] medication. Asking pcp to please advise patient. [facility]03-22-2024 Miscellaneous Notes* Telephone Encounter - Ree Ng MA - 11/12/2023 2:36 PM EDT Letter mailed to pt home of results. Ree Ng MA * Telephone Encounter - Ree Ng MA - 11/12/2023 2:29 PM EDT ----- Message from Ena Aguiar PA-C sent at 11/12/2023 12:27 PM EDT ----- Normal mammogram. Repeat in 1 year. documented in this encounterDayton Va Medical Center03-22-2024 Miscellaneous Notes* Letter - Annie, Mammography - 11/12/2023 12:11 PM EDT November 12, 2023 PID: [id number] Elisha Godfrey [address] [place] [address] Dear Ms. Godfrey, We are pleased to [...] report will be kept on [facility] at [facility] as part of your permanent medical record and are available for your continuing care. Thank you for allowing us to help in meeting your health care needs. Sincerely, Dr. Jeronimo Interpreting Radiologist [facility] (Normal over 40) documented in this encounterDayton Va Medical Center03-22-2024 History of Present illness Narrative* [...] PATIENT PRESENTS WITH AN IMPLANTABLE OR ATTACHED SQL SERVER BI DEVELOPER: No RADIOLOGY DEPARTMENT: Mammography PERIPHERAL IV DATA: Not applicable SIGNED BY: Jimbo Marmolejo November 12, 2023 7:14 AM documented in this encounterDayton Va Medical Center02-14-2024 Miscellaneous Notes* Telephone Encounter - Ena Aguiar PA-C - 10/06/2023 2:34 PM EST New orders placed. * Telephone Encounter - Pamela Tate RN - 10/06/2023 2:13 PM EST Sabine calling from [facility] regarding pt's order. Sabine notes pt has been ordered DXA-AXIAL SKELETON WITH VFA. Sabine states typically a "VFA" scan is used in pt's with history of organ transplant and recommends pt have "a regular DXA" scan completed. Sabine states she will complete whatever testing the provider wishes. No call back needed to Sabine-she states she will monitor for pt's new order, if placed. Pamela Tate RN documented in this encounterDayton Va Medical Center01-02-2024 History of Present illness Narrative* [...] 24, 2023 10:05 AM documented in this encounterDayton Va Medical Center12-05-2023 History of Present illness Narrative* Remington Pereyra LPN - 07/27/2023 8:39 AM EST Scan on 07/23/2023 12:38 PM by ProviderJose Carlos PA-C: Hematology Scan on 07/23/2023 1:38 PM by Jose Carlos Phelps PA-C: Chemistry documented in this encounterDayton Va Medical Center11-29-2023 Miscellaneous Notes* Telephone Encounter - [...] Shelby Brown Ma * Telephone Encounter - Lowell Rosamaria Chanel - 07/21/2023 3:01 PM EST Patient has been identified by name and date of : Yes Requested Prescriptions Pending Prescriptions Disp Refills ramipril (ALTACE) 5 mg capsule 90 capsule 1 Sig: Take 1 capsule by mouth once daily. RX INSTRUCTIONS: Patient aware RX escripted to mail away pharmacy. No need to notify patient. Rosamaria Moody Pss documented in this encounterDayton Va Medical Center09-15-2023 History of Present illness Narrative* Remington Pereyra LPN - 05/07/2023 1:30 PM EDT Scan on 05/07/2023 1:21 PM by ProviderJose Carlos PA-C: Chemistry Scan on 05/07/2023 12:39 PM by ProviderJose Carlso PA-C: Hematology documented in this encounterDayton Va Medical Center06-06-2023 History of Present illness Narrative* [...] Care Gap or Scheduling/Wellness visits Payer: Payor: [employer] MEDICARE / Plan: [employer] MEDICARE PPO / Product Type: PPO / Care Gap Reviewed:: Colorectal Cancer Screening Reminder: Reminder note to check Health Maintenance for items below Health Maintenance items due: DTAP,TDAP,TD(1 - Tdap) Never done COLORECTAL CANCER SCREENING due on 10/29/2022 Navigation Signature: Addie Pugh Population Health Navigator January 26, 2023 12:28 PM documented in this encounterDayton Va Medical Center04-06-2023 History of Present illness Narrative* Feliciano Leahy MA - 11/26/2022 11:34 AM EDT Scan on 11/20/2022 12:37 PM by External Provider: Hematology Feliciano Leahy MA documented in this encounterDayton Va Medical Center03-20-2023 Miscellaneous Notes* Telephone Encounter - Kacey Lou Cma - 11/09/2022 3:59 PM EDT Patient notified and verbalized understanding Kacey Lou Cma * Telephone Encounter - Addie Birmingham APRN.CNP - 11/09/2022 3:46 PM EDT Please let patient know her mammogram is normal. She should continue yearly screenings. documented in this encounterDayton Va Medical Center03-20-2023 Miscellaneous Notes* Letter - Mammography Coordinator - 11/09/2022 1:49 PM EDT November 10, 2022 PID: [id number] Elisha Godfrey [address] [place] [address] Dear Ms. Bekah, We are pleased to inform you that [...] report will be kept on [facility] at [facility] as part of your permanent medical record and are available for your continuing care. Thank you for allowing us to help in meeting your health care needs. Sincerely, Dr. Hoyt Interpreting Radiologist [facility] (Normal over 40) documented in this encounterDayton Va Medical Center03-17-2023 History of Present illness Narrative* [...] 06, 2022 1:44 PM documented in this encounterDayton Va Medical Center01-30-2023 Instructions* Patient Instructions* Ena Aguiar PA-C - 09/21/2022 9:44 AM EST Aquaphor for dry skin. Can mix this with the steroid ointment as needed for increased treatment benefit. documented in this encounterDayton Va Medical Center01-30-2023 History of Present illness Narrative* [...] repeat in 3 years, with MAC at [facility] COLONOSCOPY FLX DX W/COLLJ SPEC WHEN PFRMD 02/22/2006 COLONOSCOPY FLX DX W/COLLJ SPEC WHEN PFRMD 03/23/2016 Colonoscopy, repeat 5 years EGD W/O [facility] SPEC VARICIES INJ 10/29/2021 ESOPHAGOGASTRODUODENOSCOPY TRANSORAL DIAGNOSTIC 12/23/1998 EGD LAPAROSCOPIC APPENDECTOMY 07/12/2007 Early acute LIG/TRNSXJ FLP TUBE ABDL/VAG APPR UNI/BI Tubal ligation PAST SURGICAL HISTORY OF lipoma back, left back PAST SURGICAL HISTORY OF Right 06/02/2016 Dr. Matthew COATS, Right Knee Scope SLING OPER STRES INCONTINENCE 09/20/2012 [place] and cystoscopy TONSILLECTOMY HX TONSILLECTOMY PRIMARY/SECONDARY <AGE [...] 67 Resp 16 Ht 157 cm (5' 1.81") Wt 87.7 kg (193 lb 6.4 oz) [...] repeat in 3 years, with MAC at [facility] COLONOSCOPY FLX DX W/COLLJ SPEC WHEN PFRMD 02/22/2006 COLONOSCOPY FLX DX W/COLLJ SPEC WHEN PFRMD 03/23/2016 Colonoscopy, repeat 5 years EGD W/O [facility] SPEC VARICIES INJ 10/29/2021 ESOPHAGOGASTRODUODENOSCOPY TRANSORAL DIAGNOSTIC 12/23/1998 EGD LAPAROSCOPIC APPENDECTOMY 07/12/2007 Early acute LIG/TRNSXJ FLP TUBE ABDL/VAG APPR UNI/BI Tubal ligation PAST SURGICAL HISTORY OF lipoma back, left back PAST SURGICAL HISTORY OF Right 06/02/2016 Dr. Matthew COATS, Right Knee Scope SLING OPER STRES INCONTINENCE 09/20/2012 [place] and cystoscopy TONSILLECTOMY HX TONSILLECTOMY PRIMARY/SECONDARY <AGE [...] [Diphenhyd* Other: See Comments makes her feel "weird" Latex Unknown Current Medications Current Outpatient Medications [...] ALLERGY) 32 mcg/actuation nasal spray Use 1 [place] in each nostril once daily.(Patient taking differently: Use 1 [place] in each nostril as needed.) fexofenadine hcl(CARMELITA [...] No history of dysuria, frequency or incontinence FOOD SAFETY COORDINATOR: Negative for abnormal vaginal bleeding, abnormal vaginal [...] 68 Resp 16 Ht 157 cm (5' 1.81") Wt 87.7 kg (193 lb 6.4 oz) [...] Abs Lymph 1.00 - 4.00 k/uL 1.11 [place]% % 7.6 Abs [place] <0.87 k/uL 0.32 Eosin% % 3.3 Abs [...] Negative Ketones, Urine Trace, Negative Negative Specific [place], Ur 1.005 - 1.030 1.008 Hemoglobin/Blood,Ur Negative, [...] prn. Ena Aguiar PA-C [facility] Miscellaneous Notes* Telephone Encounter - Feliciano Leahy [...] callonce they are placed. documented in this [facility]Day[facility]12[facility]14-[facility]22 Miscellaneous Notes* Telephone Encounter - [...] you. Pamela Tate RN documented in this encounterDay[facility]10-27-2022 Instructions* Patient Instructions* Chapis Lepe APRN.PIECE JOBBER - 06/18/2022 10:21 AM EDT Avoiding Tick [...] Problems with short-term memory documented in this encounterDayton [facility] Center10-27-2022 History of Present illness Narrative* Chapis Lepe APRN.CNP - 06/18/2022 10:20 AM EDT Images from [...] have confirmed and edited as necessary, the [facility] Review of Systems Constitutional: Negative for [...] indetail warranting prompt ER evaluation. Chapis Lepe APRN.PIECE JOBBER documented in this encounterDay[facility]05-02-2022 History of Present illness Narrative* Feliciano Leahy MA - 12/22/2021 4:24 PM EDT Please see external labs. Feliciano Leahy MA Scan on 12/22/2021 2:23 PM by External Provider: Hematology documented in this encounterDay[facility]03-23-2022 Instructions* Patient Instructions* Sayra Del Toro PA-C - 11/12/2021 10:46 AM EDT -Recommend repeat colonoscopy in 1-2 years with Monitored Anesthetic Care -Recommend daily fiber supplement and plenty of fluids -Call immediately if any changes in bowel habits or new concerns The following instructions are important for you related to your office visit today with the [facility] General Surgeons. INSTRUCTIONS FOR PEPTIC [...] you should contact our office immediately @ [phone] and ask to be transferred to the General Surgery department. documented in this encounterDayton [facility]03-23-2022 History of Present illness Narrative* Sayra Del Toro PA-C - 11/12/2021 10:10 AM EDT FOLLOW UP VISIT - ENDOSCOPY NAME: Elisha Castellano [facility] NO.: [id number] DATE OF SERVICE: 11/12/2021 : 1955 REFERRING PHYSICIAN: aKde Fry MD Elisha is a patient I [...] one cassette issue. Gross examination performed at [facility], [address] [place] [address] FFS 10/29/2021 10:08 PM Performing Lab Diagnostic interpretation performed at [facility], [facility] [address] CLIA# [id number] Unit Support Representative: Remy Yuan M.D. Addendum Given the background [...] C (89 F), height 154.9 cm (5' 1"), zukbzf78.4 kg (186 lb), SpO2 96 %. General: [...] in 1-2 years to be done at [facility] under Monitored Anesthetic Care. Patient agreeable to [...] which included preparing to see the patient, [id number] patient care, completing clinical documentation, obtaining and/or reviewing separately obtained history, counseling and educating the patient/family/caregiver, communicating with other HCPs (not separately reported), independently interpreting results (not separately reported) and communicating results to the patient/family/caregiver. Sayra Del Toro PA-C documented in this encounterDay[facility]02-03-2022 History of Past illness Narrative* [...] of this encounter (statuses as of 10/06/2023) [facility] of Past illness Narrative* [...] of this encounter (statuses as of 11/12/2023) [address]03-2022 History of Past illness Narrative* Problem Noted [...] of this encounter (statuses as of 11/13/2023) [facility] of Past illness Narrative* [...] of this encounter (statuses as of 11/16/2023) [facility] History of Present illness Narrative* Nadine Chaudhary, RT(R) - 09/23/2021 1:50 PM EST Radiology [...] 23, 2021 1:48 PM documented in this encounterDayton [facility] Center01-28-2022 History of Present illness Narrative* [...] 19, 2021 11:48 AM documented in this encounterDayton [facility] Center12-12-2012 History of Past illness Narrative* Problem Noted Date Resolved Date Cystocele, midline 08/03/2012 10/31/2012 Rectocele 08/03/2012 10/31/2012 Uterine prolapse without mention of vaginal wall prolapse 08/03/2012 10/31/2012 Acute appendicitis without mention of peritoniti s 07/16/2007 09/19/2012 Hemorrhage of gastrointestinal tract, unspecifie d 08/28/2019 documented as of this encounter (statuses as of 11/12/2021) [facility] Narrative* Problem Noted Date Resolved Date Cystocele, midline 08/03/2012 10/31/2012 Rectocele 08/03/2012 10/31/2012 Uterine prolapse without mention of vaginal wall prolapse 08/03/2012 10/31/2012 Acute appendicitis without mention of peritoniti s 07/16/2007 09/19/2012 Hemorrhage of gastrointestinal tract, unspecifie d 08/28/2019 documented as of this encounter (statuses as of 12/22/2021) [facility] Narrative* Problem Noted Date Resolved Date Cystocele, midline 08/03/2012 10/31/2012 Rectocele 08/03/2012 10/31/2012 Uterine prolapse without mention of vaginal wall prolapse 08/03/2012 10/31/2012 Acute appendicitis without mention of peritoniti s 07/16/2007 09/19/2012 Hemorrhage of gastrointestinal tract, unspecifie d 08/28/2019 documented as of this encounter (statuses as of 06/18/2022) [facility] Narrative* Problem Noted Date Resolved Date Cystocele, midline 08/03/2012 10/31/2012 Rectocele 08/03/2012 10/31/2012 Uterine prolapse without mention of vaginal wall prolapse 08/03/2012 10/31/2012 Acute appendicitis without mention of peritoniti s 07/16/2007 09/19/2012 Hemorrhage of gastrointestinal tract, unspecifie d 08/28/2019 documented as of this encounter (statuses as of 08/06/2022) [facility] Narrative* Problem Noted Date Resolved Date Cystocele, midline 08/03/2012 10/31/2012 Rectocele 08/03/2012 10/31/2012 Uterine prolapse without mention of vaginal wall prolapse 08/03/2012 10/31/2012 Acute appendicitis without mention of peritoniti s 07/16/2007 09/19/2012 Hemorrhage of gastrointestinal tract, unspecifie d 08/28/2019 documented as of this encounter (statuses as of 09/09/2022) [facility] Narrative* Problem Noted Date Resolved Date Cystocele, midline 08/03/2012 10/31/2012 Rectocele 08/03/2012 10/31/2012 Uterine prolapse without mention of vaginal wall prolapse 08/03/2012 10/31/2012 Acute appendicitis without mention of peritoniti s 07/16/2007 09/19/2012 Hemorrhage of gastrointestinal tract, unspecifie d 08/28/2019 documented as of this encounter (statuses as of 09/21/2022) [facility] Narrative* Problem Noted Date Resolved Date Cystocele, midline 08/03/2012 10/31/2012 Rectocele 08/03/2012 10/31/2012 Uterine prolapse without mention of vaginal wall prolapse 08/03/2012 10/31/2012 Acute appendicitis without mention of peritoniti s 07/16/2007 09/19/2012 Hemorrhage of gastrointestinal tract, unspecifie d 08/28/2019 documented as of this encounter (statuses as of 11/10/2022) [facility] Narrative* Problem Noted Date Resolved Date Cystocele, midline 08/03/2012 10/31/2012 Rectocele 08/03/2012 10/31/2012 Uterine prolapse without mention of vaginal wall prolapse 08/03/2012 10/31/2012 Acute appendicitis without mention of peritoniti s 07/16/2007 09/19/2012 Hemorrhage of gastrointestinal tract, unspecifie d 08/28/2019 documented as of this encounter (statuses as of 11/11/2022) [facility] Narrative* Problem Noted Date Resolved Date Cystocele, midline 08/03/2012 10/31/2012 Rectocele 08/03/2012 10/31/2012 Uterine prolapse without mention of vaginal wall prolapse 08/03/2012 10/31/2012 Acute appendicitis without mention of peritoniti s 07/16/2007 09/19/2012 Hemorrhage of gastrointestinal tract, unspecifie d 08/28/2019 documented as of this encounter (statuses as of 11/27/2022) [facility] Narrative* Problem Noted Date Resolved Date Cystocele, midline 08/03/2012 10/31/2012 Rectocele 08/03/2012 10/31/2012 Uterine prolapse without mention of vaginal wall prolapse 08/03/2012 10/31/2012 Acute appendicitis without mention of peritoniti s 07/16/2007 09/19/2012 Hemorrhage of gastrointestinal tract, unspecifie d 08/28/2019 documented as of this encounter (statuses as of 01/27/2023) [facility] Narrative* Problem Noted Date Diagnosed Date Resolved Date Cystocele, midline 08/03/2012 3 Rectocele 08/03/2012 10/31/2012 Uterine prolapse without men tion of vaginal wall prolapse 08/03/2012 10/31/2012 Acute appendicitis without m ention of peritonitis 07/16/2007 09/19/2012 Hemorrhage of gastrointestin al tract, unspecified 08/28/2019 documented as of this encounter (statuses as of 05/09/2023) [facility] Narrative* Problem Noted Date Diagnosed Date Resolved Date Cystocele, midline 08/03/2012 3 Rectocele 08/03/2012 10/31/2012 Uterine prolapse without men tion of vaginal wall prolapse 08/03/2012 10/31/2012 Acute appendicitis without m ention of peritonitis 07/16/2007 09/19/2012 Hemorrhage of gastrointestin al tract, unspecified 08/28/2019 documented as of this encounter (statuses as of 06/27/2023) [facility] Narrative* Problem Noted Date Diagnosed Date Resolved Date Cystocele, midline 08/03/2012 3 Rectocele 08/03/2012 10/31/2012 Uterine prolapse without men tion of vaginal wall prolapse 08/03/2012 10/31/2012 Acute appendicitis without m ention of peritonitis 07/16/2007 09/19/2012 Hemorrhage of gastrointestin al tract, unspecified 08/28/2019 documented as of this encounter (statuses as of 07/22/2023) [facility] Narrative* Problem Noted Date Diagnosed Date Resolved Date Cystocele, midline 08/03/2012 3 Rectocele 08/03/2012 10/31/2012 Uterine prolapse without men tion of vaginal wall prolapse 08/03/2012 10/31/2012 Acute appendicitis without m ention of peritonitis 07/16/2007 09/19/2012 Hemorrhage of gastrointestin al tract, unspecified 08/28/2019 documented as of this encounter (statuses as of 07/28/2023) [facility] Author Javier Cat [facility] Note Date/Time February 12, 2025 11:0 9am [facility] Medical Records Department [address] [place] [address] Anesthesia Postop Eval I 02/12/25 1108 MR#: [id number] Acct: [id number] Name: ELISHA GODFREY Rep #:[id number] : 1955 69 From: Javier Cat PCP: Dr. Kade Fry MD Status:REG SDC Y Race: C Location: [place] [address] Anesthesia: Postop Eval I Current Vital Signs [...] by Javier Cat > Date _ Javier Dormanignkaty Signature: Date CC: ~ Signed [facility] Work Phone: Consult note Author Jimmy [facility] Note Date/Time February 12, 2025 12:1 7pm [facility] Medical Records Department [address] [place] [address] Anesthesia Postop Eval II 02/12/25 1149 MR#: [id number] Acct: [id number] Name: ELISHA GODFREY Rep #:[id number] : 1955 69 From: Jimmy sOcar PCP: Dr. Kade Fry MD Status:REG AMAYA Y Race: C Location: [place] [address] Anesthesia Postop Eval I Sum Postop Eval [...] Gillis MD> Date _ Jimmy Gillis MD [facility] Signature: Date CC: ~ Signed [facility] Work Phone: Evaluation note* Diagnosis Tortuous colon- Primary Volvulus Internal hemorrhoids Internal hemorrhoids without mention of complication Diverticulosis Diverticulosis of colon (without mention of hemorrhage) Dysphagia, unspecified type documented in this encounter [facility] noteNo assessment information availableWAvita Health System Work Phone: Evaluation note* Diagnosis Tick bite of right thigh, initial encounter- Primary [facility] encounter [facility]* Diagnosis Hypertension, unspecified type documented in this encounter [facility] note* Diagnosis Essential hypertension- Primary Unspecified essential hypertension Mixed hyperlipidemia Cassidy's thyroiditis Chronic lymphocytic thyroiditis Medication management Encounter for long-term (current) use of other medications [facility]* Diagnosis Medicare annual wellness visit, initial- [...] Dermatophytosis of nail [facility] encounter [facility]* Diagnosis Encounter for screening mammogram for breast cancer documented [facility]* Diagnosis Hypertension, unspecified type [facility]* Diagnosis Asymptomatic menopause- Primary [facility]* Diagnosis Encounter for screening mammogram for breast cancer [facility]* Diagnosis Hypertension, unspecified type [facility]* Diagnosis Cat bite of left hand, initial encounter documented [facility] this encounter [facility]* Diagnosis Spondylolisthesis at L4-L5 level documented in this encounter [facility]* Diagnosis Chronic low back pain without sciatica, unspecified back pain laterality documented [facility] this encounter [facility]* Diagnosis Hyperlipidemia, mixed- Primary Mixed hyperlipidemia [...] Other abnormal glucose [facility] Diagnosis Encounter for Medicare annual wellness exam- Primary Routine general medical examination at a [facility] care facility Essential hypertension Unspecified essential hypertension [...] malignant neoplasms, colon [facility]* Diagnosis GERD without esophagitis Esophageal reflux documented [facility] this [facility]* Diagnosis Onychodystrophy- Primary Other specified disease of nail Pain in toes of both feet Diminished pulses in lower extremity Other symptoms involving cardiovascular system [facility]* Diagnosis Raynaud phenomenon due to autoimmune disease (HCC)- Primary Numbness and tingling in left hand Disturbance of skin sensation Trigger finger of left thumb Carpal tunnel syndrome of left wrist Carpal tunnel syndrome [facility]* Diagnosis Onychodystrophy- Primary Other specified disease of nail [facility]* Diagnosis Abnormal mammogram- Primary Abnormal mammogram, unspecified [facility]* Diagnosis Open wound of toe, initial encounter- Primary [facility]* Diagnosis Carpal tunnel syndrome of left wrist- Primary Carpal tunnel syndrome Trigger thumb, left thumb [facility]* Diagnosis Abnormal mammogram Abnormal mammogram, unspecified [facility]* Diagnosis Abnormal mammogram Abnormal mammogram, unspecified [facility] this [facility]* Diagnosis Abnormal mammogram- Primary Abnormal mammogram, unspecified documented in this encounter [facility] Discharge instructionsAmbulatory Orders* General Surgery Location: None [facility] Work Phone: Progress note Author Tavon Beauchamp [facility] Note Date/Time June 06, 2025 1 0:17am [facility] [address] [place] [address]. [address] [place] [address] OFFICE VISIT Date of Service: 06/06/25 MR#: [id number] Acct: [id number] Name: ELISHA GODFREY Rep #: [id number] : 1955 Provider: Dr. Rusty Beauchamp MD Age/Sex: 70/F Location: [facility] Status: Signed Intake Vital Signs 05/28/25 06:24 Height 5 ft 5.5 in Intake Visit Reasons: INGUINAL HERNIA 05-28 Chief Complaint: spigelian hernia f/u Accompanied by: Is patient in pain?: No Allergies lansoprazole (From Prevacid) Allergy (Verified 05/14/25 12:54) Hives latex Allergy (Verified 05/14/25 12:54) Unknown alendronate sodium (From Fosamax) Adverse Reaction (Unknown, Verified 05/14/25 12:54) heartburn adhesive Adverse Reaction (Verified 05/14/25 12:54) Unknown diphenhydramine (From Benadryl) Adverse Reaction (Verified 05/14/25 12:54) FEEL WEIRD Medications ?Medication ?Instructions ?Recorded ?Confirmed ?Type Ibuprofen [Motrin] 800 mg PO TID PRN PRN Pain 1 05/28/25 History aspirin 81 mg tablet,delayed 81 mg PO MOWEFR 05/26/16 05/28/25 History release calcium carbonate (Oyster Shell 500 mg PO BID 05/26/16 05/28/25 History Calcium 500) cholecalciferol (vitamin D3) 25 2,000 unit PO BID 12/0605/28/25 History mcg (1,000 unit) tablet (Vitamin D3) fexofenadine-pseudoephedrine ER 1 ea PO DAILY 05/26/16 05/28/25 History 180 mg-240 mg tablet,ext.release 24 hr (Carmelita-D 24 Hour) omega-3 fatty acids-fish oil 340 1 ea PO DAILY 6 05/28/25 History mg-1,000 mg capsule (Fish Oil) ramipril 5 mg capsule 5 mg PO DAILY 05/26/1605/28 History vitamin B complex 1 ea PO DAILY 05/26/1605/28 History ascorbic acid (vitamin C) 1,000 mg 1 g PO QDAY 11/21/2 5 05/28/25 History capsule methotrexate sodium 2.5 mg tablet 20 mg PO SA 11/21/24 05/28/25 History folic acid 1 mg tablet 2 mg PO QDAY 11/27/24 History budesonide 32 mcg/actuation nasal 2 spray intranasal Q HS 05/14/25 05/28/25 History spray pantoprazole 40 mg tablet,delayed [address] 05/14/25 05/28/25 History release zinc gluconate 50 mg tablet 50 mg PO DAILY 05/14/25 History Have you fallen in the past year?: No Subjective Details: Patient presents following robot-assisted left spigelian hernia repair with meshon 05/28/2025. Patient presents today with her . Since hospital discharge they have been doing well and she reports that she is feeling "a lot better". She states she noticed a difference with her stomach "right away". They report minimal postoperative pain and did not require any of the prescribedpain medication during her recovery. She shares that her bowels are "doing good" and adds that they are "better than what they had been". They had no wound concerns. They confirm that they are abiding by lifting restrictions. Inaddition to the above she is pleased to report that she had some "issues" with her legs and describes that she frequently felt as though someone needed to pullon them to relieve the discomfort. She also adds that she had some symptoms of sciatica in both of these symptoms have been nearly completely alleviated since undergoing her operation. Objective Details: Constitutional: Appreciative, cooperative Abdomen: Ecchymotic changes about 3 port site incisions with some increased erythema for the medial portion of patient's left upper quadrant port site. Abdomen is soft, nondistended and generally nontender to palpation otherwise. She describes some very mild tenderness over her prior hernia site left lower quadrant but there is no bulging or fluid collected in this location. Coding Level of Care Code Global Post Op Diagnoses Status post spigelian hernia repair, follow-up exam Z09 [facility] Medical History Loss of hearing Post-menopausal Bladder disease Easy bruising Back pain Injury of back History of diverticulitis History of stress test Wears glasses Rheumatoid arthritis TIA (transient ischemic attack) History of hiatal hernia Difficulty swallowing Non-smoker Shortness of breath on exertion Leg cramps History of edema GERD (gastroesophageal reflux disease) Osteopenia Hypertension Migraines Arthritis Surgical History (Updated 06/06/25 @ 17:[address] Tavon Beauchamp MD) Status post spigelian hernia repair, follow-up exam History of esophagogastroduodenoscopy (EGD) History of colonoscopy History of tubal ligation H/O: hysterectomy History of appendectomy History of tonsillectomy Family History Mother Arthritis Brother Arthritis Diabetes Heart disease Bleeding disorder Brother Colon cancer Bleeding disorder Social History Smoking Status: Never smoker alcohol intake: never substance use type: does not use what type of physical activity do you participate in: none Assessment and Plan (No Qualifiers) Assessment and Plan (1) Status post spigelian hernia repair, follow-up exam: Status: Acute Comment: Patient is a 70-year-old female who is now 9 days status post robot-assisted left spigelian hernia repair with mesh placement. She is doing very well in herrecovery and is pleased with some tangential results that have amounted to resolution of previously unconnected symptoms. I reviewed pictures from her operation with her and her . She is well-healing on exam. I have encouraged her to apply triple antibiotic ointment to her incisions once daily as a means of trying to heal them quickly and thereby protect her mesh further. She is also encouraged to continue adherence to activity restrictions. Examples of activity were provided. She is cleared to return to driving which she had avoided to this point. Request follow-up visit in 5 weeks to review healing further. Plan: ? Wound care as above ? Continue adherence to activity restrictions and lifting greater than 10 poundsfor full 5 weeks postop ? 5-week wound check visit in clinic ? 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 06/06/25 9292 <Electronically signed by Tavon Beauchamp MD> Date _ Tavon Beauchamp MD Cosigner Signature: Date (if applicable) CC: Dr. Kade Fry MD ~ [employer] Work Phone: [employer] for referral (narrative)* Diagnostic Procedure Only (Routine) - Authorized Specialty Diagnoses / Procedures Referred By Contac t Referred To Contact [facility] Diagnoses Encounter for screening mammogram for breast cancer Procedures LEIGH SCREENING SCREENING MAMMOGRAPHY BI 2-VIEW BREAST INC Ena Vasques PA-C [address] [place] [address] [facility] [address] [place] [address] Referral ID Status Reason Start Date Expiration Date Visits Requested Visits Authorized [id number] Authorized Auto-Generat ed Referral 09/21/2022 10/21/2023 1 1 [facility] for referral (narrative)* Diagnostic Procedure Only (Routine) - Closed Specialty Diagnoses / Procedures Referred By Karishma canas Referred To Contact [facility] Diagnoses Encounter for screening mammogram for breast cancer Procedures LEIGH SCREENING SCREENING MAMMOGRAPHY BI 2-VIEW BREAST INC Ena Vasques PA-C [address] [place] [address] [facility] [address] [address] Referral ID Status Reason Start Date Expiration Date V isits Requested Visits Authorized [id number] Closed Auto-Generate d Referral 09/21/2022 10/21/2023 1 1 [facility] for referral (narrative)* Diagnostic Procedure Only (Routine) - Closed Specialty Diagnoses / Procedures Referred By Contac t Referred To Contact BR IMAGING Diagnoses Encounter for screening mammogram for breast cancer Procedures LEIGH SCREENING SCREENING MAMMOGRAPHY BI 2-VIEW BREAST INC Ena Vasques PA-C [address] [place] [address] [facility] [address] [place] [address] Referral ID Status Reason Start Date Expiration Date V isits Requested Visits Authorized [id number] Closed Auto-Generate d Referral 09/21/2023 10/20/2024 1 1 [facility] for referral (narrative)* Diagnostic Procedure Only (Urgent) - Closed Specialty Diagnoses / Procedures Referred By Contac t Referred To Contact XR IMAGING Diagnoses Cat bite of left hand, initial encounter Procedures XR HAND GENERAL 3V PA/LAT/OBL LEFT RADEX HAND MINIMUM 3 VIEWS Yonas Cisse MD [address] [place] [id number] [place] [address] Referral ID Status Reason Start Date Expiration Date V isits Requested Visits Authorized [id number] Closed Auto-Generate d Referral 08/24/2023 09/22/2024 1 1 [facility] for referral (narrative)* Diagnostic Procedure Only (Routine) - Closed Specialty Diagnoses / Procedures Referred By Contac t Referred To Contact XR IMAGING Diagnoses Spondylolisthesis at L4-L5 level Procedures XR LUMBAR LIMITED 2V FLEX/EXT RADEX SPINE LUMBOSACRAL 2/3 VIEWS Kade Fry MD [address] [place] [address] [place] [address] Referral ID Status Reason Start Date Expiration Date V isits Requested Visits Authorized [id number] Closed Auto-Generate d Referral 09/23/2021 10/23/2022 1 1 [facility] for referral (narrative)* Diagnostic Procedure Only (Routine) - Closed Specialty Diagnoses / Procedures Referred By Contac t Referred To Contact XR IMAGING Diagnoses Chronic low back pain without sciatica, unspecified back pain laterality Procedures XR LUMBAR PARS DEFECT 4V AP/LAT/BOTH OBL RADEX SPINE LUMBOSACRAL MINIMUM 4 VIEWS Kade Fry MD [address] [place] [address] [place] [address] Referral ID Status Reason Start Date Expiration Date V isits Requested Visits Authorized [id number] Closed Auto-Generate d Referral 09/19/2021 10/19/2022 1 1 [facility] for referral (narrative)No reason for referral information [facility]WA[facility] Narrative* Diagnostic Procedure Only (Routine) - Closed Specialty Diagnoses / Procedures Referred By Karishma t Referred To Contact BR IMAGING Diagnoses Encounter for screening mammogram for breast cancer Procedures LEIGH SCREENING SCREENING MAMMOGRAPHY BI 2-VIEW BREAST INC CAD Ena Aguiar PA-C [address] [id number] [facility] [address] [place] [address] Referral ID Status Reason Start Date Expiration Date V isits Requested Visits Authorized [id number] Closed Auto-Generate d Referral 09/21/2022 10/21/2023 1 1 [facility] for visit Narrative* Diagnostic Procedure Only (Routine) - Closed Specialty Diagnoses / Procedures Referred By Karishma t Referred To Contact BR IMAGING Diagnoses Encounter for screening mammogram for breast cancer Procedures LEIGH SCREENING SCREENING MAMMOGRAPHY BI 2-VIEW BREAST INC CAD Ena Aguiar PA-C [address] [place] [address] [facility] Imaging [address] [place] [address] Referral ID Status Reason Start Date Expiration Date V isits Requested Visits Authorized [id number] Closed Auto-Generate d Referral 09/21/2023 10/20/2024 1 1 [facility] for visit Narrative* Diagnostic Procedure Only (Urgent) - Closed Specialty Diagnoses / Procedures Referred By Karishma t Referred To Contact XR IMAGING Diagnoses Cat bite of left hand, initial encounter Procedures XR HAND GENERAL 3V PA/LAT/OBL LEFT RADEX HAND MINIMUM 3 VIEWS Yonas Cisse MD [address] [place] [address] [place] [address] Referral ID Status Reason Start Date Expiration Date V isits Requested Visits Authorized [id number] Closed Auto-Generate d Referral 08/24/2023 09/22/2024 1 1 [facility] for visit Narrative* Diagnostic Procedure Only (Routine) - Closed Specialty Diagnoses / Procedures Referred By Contac t Referred To Contact XR IMAGING Diagnoses Spondylolisthesis at L4-L5 level Procedures XR LUMBAR LIMITED 2V FLEX/EXT RADEX SPINE LUMBOSACRAL 2/3 VIEWS Kade rFy MD [facility] [place] [address] [place] [address] Referral ID Status Reason Start Date Expiration Date V isits Requested Visits Authorized [id number] Closed Auto-Generate d Referral 09/23/2021 10/23/2022 1 1 [facility] for visit Narrative* Diagnostic Procedure Only (Routine) - Closed Specialty Diagnoses / Procedures Referred By Contac t Referred To Contact XR IMAGING Diagnoses Chronic low back pain without sciatica, unspecified back pain laterality Procedures XR LUMBAR PARS DEFECT 4V AP/LAT/BOTH OBL RADEX SPINE LUMBOSACRAL MINIMUM 4 VIEWS Kade Fry MD [address] [place] [address] Xr Imaging [facility] Referral ID Status Reason Start Date Expiration Date V isits Requested Visits Authorized [id number] Closed Auto-Generate d Referral 09/19/2021 10/19/2022 1 1 [facility] for visit Narrative* Diagnostic Procedure Only (Routine) - Closed Specialty Diagnoses / Procedures Referred By Contac t Referred To Contact BR IMAGING Diagnoses Encounter for screening mammogram for breast cancer Procedures LEIGH SCREENING W IRISH SCREENING DIGITAL BREAST TOMOSYNTHESIS BI SCREENING MAMMOGRAPHY BI 2-VIEW BREAST INC CAD Kade Fry MD [address] [place] [address] Phone: tel: fax: [facility] [address] [place] [address] Referral ID Status Reason Start Date Expiration Date V isits Requested Visits Authorized [id number] Closed Auto-Generate d Referral 09/21/2024 10/20/2025 1 1 [facility] for visit Narrative* Diagnostic Procedure Only (Routine) - Closed Specialty Diagnoses / Procedures Referred By Contac t Referred To Contact BR IMAGING Diagnoses Abnormal mammogram Procedures LEIGH DIAGNOSTIC RIGHT DIAGNOSTIC MAMMOGRAPHY COMPUTER-AIDED DETCJ UNI Kade Fry MD [address] [place] [address] Phone: tel: fax: [facility] [address] [place] [address] Referral ID Status Reason Start Date Expiration Date V isits Requested Visits Authorized [id number] Closed Auto-Generate d Referral 11/13/2024 12/13/2025 1 1 [facility] for visit Narrative* Diagnostic Procedure Only (Routine) - Closed Specialty Diagnoses / Procedures Referred By Karishma canas Referred To Contact BR IMAGING Diagnoses Abnormal mammogram Procedures US BREAST LTD RIGHT US BREAST UNI REAL TIME WITH IMAGE LIMITED Kade Fry MD [address] [place] [address] Phone: tel: fax: [facility] [address] [place] [address] Referral ID Status Reason Start Date Expiration Date V isits Requested Visits Authorized [id number] Closed Auto-Generate d Referral 11/13/2024 12/13/2025 1 1 [facility] Chief Complaint and Reason for [...] 2024 11:31am Gastroesophageal reflux disease (GERD) A pril 2024 8:21am Reason for Visit Admit Date [...] 2024 11:31am Gastroesophageal reflux disease (GERD) A pril 2024 8:21am BLOATING, GERD December 18, 2024 12: 30pm PAIN- COPY PCP December 26, 2024 8:27am Chief Complaint Admit Date LUE; NUMBNESS AND TINGLING IN LEFT HAND November 14, 2024 10:21am LUE; NUMBNESS AND TINGLING IN LEFT HAND November 14, 2024 11:31am Gastroesophageal reflux disease (GERD) A pri 2024 8:21am BLOATING, GERD December 18, 2024 12: 30pm PAIN- COPY PCP December 26, 2024 8:27am Reason for Visit Admit Date Abdominal pain November 27, 2024 8:21 am GERD (gastroesophageal reflux disease) A pri2024 8:21am Personal history of colon polyps, unspec ified November 27, 2024 8:21am Abdominal pain February 12, 2025 8:46 am GERD (gastroesophageal reflux disease) J [facility] 2024 8:46am Personal history of colon polyps, unspec ified February 12, 2025 8:46am Chief Complaint Admit Date LUE; NUMBNESS AND TINGLING IN LEFT HAND November 14, 2024 10:21am LUE; NUMBNESS AND TINGLING IN LEFT HAND November 14, 2024 11:31am Gastroesophageal reflux disease (GERD) A pri2024 8:21am BLOATING, GERD December 18, 2024 12: [...] Admit Date GERD (gastroesophageal reflux disease) J [facility] 2024 8:46am Personal history of colon [...] Admit Date GERD (gastroesophageal reflux disease) J [facility] 2024 8:46am Personal history of colon [...] Admit Date GERD (gastroesophageal reflux disease) J [facility] 2024 8:46am Personal history of colon polyps, unspec ified February 12, 2025 8:46am Abdominal pain February 12, 2025 8:46 am Abdominal pain March 09, 2025 8:53 am Stenosis colon March 09, 2025 8:53 am Spigelian hernia April 06, 2025 1: 13pm Abdominal pain April 06, 2025 1: 13pm Cholelithiasis May 03, 2025 1:16pm Spigelian hernia May 03, 2025 1:16pm Chief Complaint Admit Date Test Result March 09, 2025 8:53 am PAIN- COPY PCP March 27, 2025 12: 40pm colon stenosis seen w/ colonoscopy Augus t 2024 2:47pm Test Result-CT SCAN April 06, 2025 1: 13pm HERNIA/ GALLSTONE May 03, 2025 1:16pm PREOP May 15, 2025 8:09am Lap Robotic Inguinal Hernia w/mesh Octob er 2024 6:02am Lap Robotic Inguinal Hernia w/mesh Octob er 2024 7:15am Chief Complaint Admit Date Test Result March 09, 2025 8:53 am PAIN- COPY PCP March 27, 2025 12: 40pm colon stenosis seen w/ colonoscopy Augus t 2024 2:47pm Test Result-CT SCAN April 06, 2025 1: 13pm HERNIA/ GALLSTONE May 03, 2025 1:16pm PREOP May 15, 2025 8:09am Lap Robotic Inguinal Hernia w/mesh Octob er 2024 6:02am Lap Robotic Inguinal Hernia w/mesh Octob er 2024 7:15am INGUINAL HERNIA 10-6 June 06, 2025 9:32am Reason for Visit Admit Date Abdominal pain March 09, 2025 8:53 am Stenosis colon March 09, 2025 8:53 am Spigelian hernia April 06, 2025 1: 13pm Abdominal pain April 06, 2025 1: 13pm Cholelithiasis May 03, 2025 1:16pm Spigelian hernia May 03, 2025 1:16pm Status post spigelian hernia repair, fol low-up exam June 06, 2025 9:32am Advance Directives No Advanced Directives Records Found Advance Directive Response Recorded Date/ Time Advance Directives No May 26, 2016 11:02am Living Will No May 26 6 11:02am Power of Management Psychologist No May 26 016 11:02am Documents on File Type Date Recorded 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 No February 08, 2025 11:46am Advance Directives No May 26, 2016 11:02am Advance Directive Response Recorded Date/ Time Do you have a Healthcare Power of Management Psychologist? No February 08, 2025 11:46am Do you have a Healthcare Power of Management Psychologist? No May 14, 2025 1:02pm Advance Directives No May 26, 2016 11:02am Advance Directive Response Recorded Date/ Time Do you have a Healthcare Power of Management Psychologist? No Cami 22nd, 2025 1:02pm Advance Directives No May 26, 2016 11:02am Assessments No Assessments Information Available Reason for Referral Specialty Diagnoses / Procedures Referred By Contac t Referred To Contact Podiatry Diagnoses Pain in toes of both feet Procedures CONSULT TO PODIATRY OFFICE/OUTPATIENT [facility] 60 MINUTES Kade Fry MD [address] [place] [address] Referral ID Status Reason Start Date Expiration Date Visits Requested Visits Authorized [id number] Authorized PCP Requested Referral 09/21/2024 09/21/2025 1 1 Specialty Diagnoses / Procedures Referred By Contac t Referred To Contact Orthopedics Diagnoses Numbness and tingling in left hand Trigger finger of left thumb Procedures CONSULT TO ORTHOPAEDICS OFFICE/OUTPATIENT [facility] 60 MINUTES Kade Fry MD [address] [place] [address] Referral ID Status Reason Start Date Expiration Date Visits Requested Visits Authorized [id number] Authorized PCP Requested Referral 09/21/2024 09/21/2025 1 1 Specialty Diagnoses / Procedures Referred By Contac t Referred To Contact Gastroenterology Diagnoses GERD without esophagitis Screening for colon cancer Dysphagia, unspecified type Procedures CONSULT TO GASTROENTEROLOGY OFFICE/OUTPATIENT [facility] 60 MINUTES Kade Fry MD [address] [place] [address] Referral ID Status Reason Start Date Expiration Date Visits Requested Visits Authorized [id number] Authorized PCP Requested Referral 09/21/2024 09/21/2025 1 1 Specialty Diagnoses / Procedures Referred By Contac t Referred To Contact [facility] Diagnoses Encounter for screening mammogram for breast cancer Procedures LEIGH SCREENING W IRISH SCREENING DIGITAL BREAST TOMOSYNTHESIS BI SCREENING MAMMOGRAPHY BI 2-[place] [address] [place] [address] [facility] [address] [place] [address] Referral ID Status Reason Start Date Expiration Date Visits Requested Visits Authorized [id number] Authorized Auto-Generat ed Referral 09/21/2024 10/20/2025 1 1 Family History No Family History Records Found Relationship Condition Age at Onset Recorded Date/T [...] or prosecute any alcohol or drug abuse patient.[facility] the event this information is protected by the Federal Confidentiality of Alcohol and Drug Abuse Patient Records regulations: The Federal rules restrict any use of the information to criminally investigate or prosecute any alcohol or drug abuse patient.[facility] CenterIn the event this information is protected by the Federal Confidentiality of Alcohol and Drug Abuse Patient Records regulations: The Federal rules restrict any use of the information to criminally investigate or prosecute any alcohol or drug abuse patient.[facility] CenterIn the event this information is protected by the Federal Confidentiality of Alcohol and Drug Abuse Patient Records regulations: The Federal rules restrict any use of the information to criminally investigate or prosecute any alcohol or drug abuse patient.[facility] CenterIn the event this information is protected by the Federal Confidentiality of Alcohol and Drug Abuse Patient Records regulations: The Federal rules restrict any use of the information to criminally investigate or prosecute any alcohol or drug abuse patient.[facility] CenterIn the event this information is protected by the Federal Confidentiality of Alcohol and Drug Abuse Patient Records regulations: The Federal rules restrict any use of the information to criminally investigate or prosecute any alcohol or drug abuse patient.[facility] CenterIn the event this information is protected by the Federal Confidentiality of Alcohol and Drug Abuse Patient Records regulations: The Federal rules restrict any use of the information to criminally investigate or prosecute any alcohol or drug abuse patient.[facility] CenterIn the event this information is protected by the Federal Confidentiality of Alcohol and Drug Abuse Patient Records regulations: The Federal rules restrict any use of the information to criminally investigate or prosecute any alcohol or drug abuse patient.[facility] CenterIn the event this information is protected by the Federal Confidentiality of Alcohol and Drug Abuse Patient Records regulations: The Federal rules restrict any use of the information to criminally investigate or prosecute any alcohol or drug abuse patient.[facility] CenterIn the event this information is protected by the Federal Confidentiality of Alcohol and Drug Abuse Patient Records regulations: The Federal rules restrict any use of the information to criminally investigate or prosecute any alcohol or drug abuse patient.[facility] CenterIn the event this information is protected by the Federal Confidentiality of Alcohol and Drug Abuse Patient Records regulations: The Federal rules restrict any use of the information to criminally investigate or prosecute any alcohol or drug abuse patient.[facility] CenterIn the event this information is protected by the Federal Confidentiality of Alcohol and Drug Abuse Patient Records regulations: The Federal rules restrict any use of the information to criminally investigate or prosecute any alcohol or drug abuse patient.[facility] CenterIn the event this information is protected by the Federal Confidentiality of Alcohol and Drug Abuse Patient Records regulations: The Federal rules restrict any use of the information to criminally investigate or prosecute any alcohol or drug abuse patient.[facility] CenterIn the event this information is protected by the Federal Confidentiality of Alcohol and Drug Abuse Patient Records regulations: The Federal rules restrict any use of the information to criminally investigate or prosecute any alcohol or drug abuse patient.[facility] CenterIn the event this information is protected by the Federal Confidentiality of Alcohol and Drug Abuse Patient Records regulations: The Federal rules restrict any use of the information to criminally investigate or prosecute any alcohol or drug abuse patient.[facility] CenterIn the event this information is protected by the Federal Confidentiality of Alcohol and Drug Abuse Patient Records regulations: The Federal rules restrict any use of the information to criminally investigate or prosecute any alcohol or drug abuse patient.[facility] CenterIn the event this information is protected by the Federal Confidentiality of Alcohol and Drug Abuse Patient Records regulations: The Federal rules restrict any use of the information to criminally investigate or prosecute any alcohol or drug abuse patient.[facility] CenterIn the event this information is protected by the Federal Confidentiality of Alcohol and Drug Abuse Patient Records regulations: The Federal rules restrict any use of the information to criminally investigate or prosecute any alcohol or drug abuse patient.[facility] CenterIn the event this information is protected by the Federal Confidentiality of Alcohol and Drug Abuse Patient Records regulations: The Federal rules restrict any use of the information to criminally investigate or prosecute any alcohol or drug abuse patient.[facility] CenterIn the event this information is protected by the Federal Confidentiality of Alcohol and Drug Abuse Patient Records regulations: The Federal rules restrict any use of the information to criminally investigate or prosecute any alcohol or drug abuse patient.[facility] CenterIn the event this information is protected by the Federal Confidentiality of Alcohol and Drug Abuse Patient Records regulations: The Federal rules restrict any use of the information to criminally investigate or prosecute any alcohol or drug abuse patient.[facility] CenterIn the event this information is protected by the Federal Confidentiality of Alcohol and Drug Abuse Patient Records regulations: The Federal rules restrict any use of the information to criminally investigate or prosecute any alcohol or drug abuse patient.[facility] CenterIn the event this information is protected by the Federal Confidentiality of Alcohol and Drug Abuse Patient Records regulations: The Federal rules restrict any use of the information to criminally investigate or prosecute any alcohol or drug abuse patient.[facility] CenterIn the event this information is protected by the Federal Confidentiality of Alcohol and Drug Abuse Patient Records regulations: The Federal rules restrict any use of the information to criminally investigate or prosecute any alcohol or drug abuse patient.[facility] CenterIn the event this information is protected by the Federal Confidentiality of Alcohol and Drug Abuse Patient Records regulations: The Federal rules restrict any use of the information to criminally investigate or prosecute any alcohol or drug abuse patient.[facility] CenterIn the event this information is protected by the Federal Confidentiality of Alcohol and Drug Abuse Patient Records regulations: The Federal rules restrict any use of the information to criminally investigate or prosecute any alcohol or drug abuse patient.[facility] CenterIn the event this information is protected by the Federal Confidentiality of Alcohol and Drug Abuse Patient Records regulations: The Federal rules restrict any use of the information to criminally investigate or prosecute any alcohol or drug abuse patient.[facility] the event this information is protected by the Federal Confidentiality of Alcohol and Drug Abuse Patient Records regulations: The Federal rules restrict any use of the information to criminally investigate or prosecute any alcohol or drug abuse patient.[facility] CenterIn the event this information is protected by the Federal Confidentiality of Alcohol and Drug Abuse Patient Records regulations: The Federal rules restrict any use of the information to criminally investigate or prosecute any alcohol or drug abuse patient.[facility] CenterIn the event this information is protected by the Federal Confidentiality of Alcohol and Drug Abuse Patient Records regulations: The Federal rules restrict any use of the information to criminally investigate or prosecute any alcohol or drug abuse patient.[facility] CenterIn the event this information is protected by the Federal Confidentiality of Alcohol and Drug Abuse Patient Records regulations: The Federal rules restrict any use of the information to criminally investigate or prosecute any alcohol or drug abuse patient.[facility] CenterIn the event this information is protected by the Federal Confidentiality of Alcohol and Drug Abuse Patient Records regulations: The Federal rules restrict any use of the information to criminally investigate or prosecute any alcohol or drug abuse patient.[facility] CenterIn the event this information is protected by the Federal Confidentiality of Alcohol and Drug Abuse Patient Records regulations: The Federal rules restrict any use of the information to criminally investigate or prosecute any alcohol or drug abuse patient.[facility] CenterIn the event this information is protected by the Federal Confidentiality of Alcohol and Drug Abuse Patient Records regulations: The Federal rules restrict any use of the information to criminally investigate or prosecute any alcohol or drug abuse patient.[facility] CenterIn the event this information is protected by the Federal Confidentiality of Alcohol and Drug Abuse Patient Records regulations: The Federal rules restrict any use of the information to criminally investigate or prosecute any alcohol or drug abuse patient.[facility] CenterIn the event this information is protected by the Federal Confidentiality of Alcohol and Drug Abuse Patient Records regulations: The Federal rules restrict any use of the information to criminally investigate or prosecute any alcohol or drug abuse patient.[facility] CenterIn the event this information is protected by the Federal Confidentiality of Alcohol and Drug Abuse Patient Records regulations: The Federal rules restrict any use of the information to criminally investigate or prosecute any alcohol or drug abuse patient.[facility] CenterIn the event this information is protected by the Federal Confidentiality of Alcohol and Drug Abuse Patient Records regulations: The Federal rules restrict any use of the information to criminally investigate or prosecute any alcohol or drug abuse patient.[facility] CenterIn the event this information is protected by the Federal Confidentiality of Alcohol and Drug Abuse Patient Records regulations: The Federal rules restrict any use of the information to criminally investigate or prosecute any alcohol or drug abuse patient.[facility] CenterIn the event this information is protected by the Federal Confidentiality of Alcohol and Drug Abuse Patient Records regulations: The Federal rules restrict any use of the information to criminally investigate or prosecute any alcohol or drug abuse patient.[facility] CenterIn the event this information is protected by the Federal Confidentiality of Alcohol and Drug Abuse Patient Records regulations: The Federal rules restrict any use of the information to criminally investigate or prosecute any alcohol or drug abuse patient.[facility] CenterIn the event this information is protected by the Federal Confidentiality of Alcohol and Drug Abuse Patient Records regulations: The Federal rules restrict any use of the information to criminally investigate or prosecute any alcohol or drug abuse patient.[facility] CenterIn the event this information is protected by the Federal Confidentiality of Alcohol and Drug Abuse Patient Records regulations: The Federal rules restrict any use of the information to criminally investigate or prosecute any alcohol or drug abuse patient.[facility] CenterIn the event this information is protected by the Federal Confidentiality of Alcohol and Drug Abuse Patient Records regulations: The Federal rules restrict any use of the information to criminally investigate or prosecute any alcohol or drug abuse patient.[facility] CenterIn the event this information is protected by the Federal Confidentiality of Alcohol and Drug Abuse Patient Records regulations: The Federal rules restrict any use of the information to criminally investigate or prosecute any alcohol or drug abuse patient.[facility] CenterIn the event this information is protected by the Federal Confidentiality of Alcohol and Drug Abuse Patient Records regulations: The Federal rules restrict any use of the information to criminally investigate or prosecute any alcohol or drug abuse patient.[facility] CenterIn the event this information is protected by the Federal Confidentiality of Alcohol and Drug Abuse Patient Records regulations: The Federal rules restrict any use of the information to criminally investigate or prosecute any alcohol or drug abuse patient.[facility] CenterIn the event this information is protected by the Federal Confidentiality of Alcohol and Drug Abuse Patient Records regulations: The Federal rules restrict any use of the information to criminally investigate or prosecute any alcohol or drug abuse patient.[facility] CenterIn the event this information is protected by the Federal Confidentiality of Alcohol and Drug Abuse Patient Records regulations: The Federal rules restrict any use of the information to criminally investigate or prosecute any alcohol or drug abuse patient.[facility] CenterIn the event this information is protected by the Federal Confidentiality of Alcohol and Drug Abuse Patient Records regulations: The Federal rules restrict any use of the information to criminally investigate or prosecute any alcohol or drug abuse patient.[facility] Reason for Visit (unrecogniz ed [...] 01/26/2023 [employer] Gaps Reason Comments Outside [id number] Ordered Reason Onset Date Comments Refill Request [...] both feet Procedures CONSULT TO PODIATRY OFFICE/OUTPATIENT [facility] MDM 60 MINUTES Kade Fry MD [address] [place] [address] Phone: tel: fax: Referral ID Status Reason Start Date Expiration Date V isits Requested Visits Authorized [id number] Closed PCP Requested Referral 09/21/2024 09/21/2025 1 1 Reason Comments New Numbness Trigger Finger Referred by Dr. Steve apodaca Specialty Diagnoses / Procedures Referred By Karishma canas Referred To Contact Orthopedics Diagnoses Numbness and tingling in left hand Trigger finger of left thumb Procedures CONSULT TO ORTHOPAEDICS OFFICE/OUTPATIENT [facility] MDM 60 MINUTES Kade Fry MD [address] [place] [address] Phone: tel: fax: Referral ID Status Reason Start Date Expiration Date V isits Requested Visits Authorized [id number] Closed PCP Requested Referral 09/21/2024 09/21/2025 1 [...] Reason Comments ext document Surgery note Outside [id number] Ordered Care Teams (unrecognized sec tion and content) Tyre Fitter Relationship Specialty [place] [address] [place] [address] PCP - General Family Practice 08/28/19 Tyre Fitter Relationship Specialty Start Date End Date Kade Fry MD [address] [place] [address] PCP - General Family Practice 08/28/19 Tyre Fitter Relationship Specialty Start Date End Date Kade Fry MD [address] [place] [address] PCP - General Family Medicine 08/28/19 Tyre Fitter Relationship Specialty Start Date End Date Kade Fry MD [address] [place] [address] PCP - General Family Medicine 08/28/19 Tyre Fitter Relationship Specialty Start Date End Date Kade Fry MD [address] [place] [address] PCP - General Family Medicine 08/28/19 Team Status: Active Member Role Status Dates No Primary Care Physician Family Provider Active Dr. Kade Fry MD Primary Care Provider Active Team Status: Inactive Member Role Status Dates Dr. Kade Fry MD Primary Care Provider Active Dr. Dina Ferrer MD Attending Provider, Referring Provider Active Tyre Fitter Relationship Specialty Start Date End Date Kade Fry MD [address] [place] [address] PCP - General Family Medicine 08/28/19 Tyre Fitter Relationship Specialty Start Date End Date Kade Fry MD [address] [place] [address] PCP - General Family Medicine 08/28/19 Tyre Fitter Relationship Specialty Start Date End Date Kade Fry MD [address] [place] [address] PCP - General Family Medicine 08/28/19 Tyre Fitter Relationship Specialty Start Date End Date Kade Fry MD [address] [place] [address] PCP - General Family Medicine 08/28/19 Tyre Fitter Relationship Specialty Start Date End Date Kade Fry MD [address] [place] [address] PCP - General Family Medicine 08/28/19 Tyre Fitter Relationship Specialty Start Date End Date Kade Fry MD [address] [place] [address] PCP - General Family Medicine 08/28/19 Tyre Fitter Relationship Specialty Start Date End Date Kade Fry MD [address] [place] [address] PCP - General Family Medicine 08/28/19 Tyre Fitter Relationship Specialty Start Date End Date Kade Fry MD [address] [place] [address] PCP - General Family Medicine 08/28/19 Tyre Fitter Relationship Specialty Start Date End Date Kade Fry MD [address] [place] [address] PCP - General Family Medicine 08/28/19 Tyre Fitter Relationship Specialty Start Date End Date Kade Fry MD [address] [place] [address] PCP - General Family Medicine 08/28/19 Tyre Fitter Relationship Specialty Start Date End Date Kade Fry MD [address] [place] [address] PCP - General Family Medicine 08/28/19 Tyre Fitter Relationship Specialty Start Date End Date Kade Fry MD [address] [place] [address] PCP - General Family Medicine 08/28/19 Tyre Fitter Relationship Specialty Start Date End Date Kade Fry MD [address] [place] [address] PCP - General Family Medicine 08/28/19 Tyre Fitter Relationship Specialty Start Date End Date Kade Fry MD [address] [place] [address] PCP - General Family Medicine 08/28/19 Tyre Fitter Relationship Specialty Start Date End Date Kade Fry MD [address] [place] [address] PCP - General Family Medicine 08/28/19 Tyre Fitter Relationship Specialty Start Date End Date aKde Fry MD [address] [place] [address] PCP - General Family Medicine 08/28/19 Tyre Fitter Relationship Specialty Start Date End Date Kade Fry MD [address] [place] [address] PCP - General Family Medicine 08/28/19 Tyre Fitter Relationship Specialty Start Date End Date Kade Fry MD [address] [place] [address] PCP - General Family Medicine 08/28/19 Addie Birmingham APRN.PIECE JOBBER [address] [place] [address] [employer]fter [employer] [facility] 07/29/24 Ena Aguiar PA-C [address] [place] [address] [employer] [facility] 07/29/24 Tyre Fitter Relationship Specialty Start Date End Date Kade Fry MD [address] [place] [address] PCP - General Family Medicine 08/28/19 Addie Birmingham APRN.PIECE JOBBER [address] [place] [address] [employer] [facility] 07/29/24 Ena Aguiar PA-C [address] [place] [address] [employer] [facility] 07/29/24 Tyre Fitter Relationship Specialty Start Date End Date Kade Fry MD [address] [place] [address] PCP - General Family Medicine 08/28/19 Addie Birmingham, [employer] DIRECTOR.PIECE JOBBER [address] [place] [address] [employer] [facility] 07/29/24 Ena Aguiar PA-C [address] [place] [address] [employer] [facility] 07/29/24 Tyre Fitter Relationship Specialty Start Date End Date Kade Fry MD [address] [place] [address] PCP - General Family Medicine 08/28/19 Addie Birmingham, DAMARIS.PIECE JOBBER [address] [place] [address] [employer] [facility] 07/29/24 Ena Aguiar PA-C [address] [place] [address] [employer] [facility] 07/29/24 Tyre Fitter Relationship Specialty Start Date End Date Kade Fry MD [address] [place] [address] PCP - General Family Medicine 08/28/19 Addie Birmingham, [employer] DIRECTOR.PIECE JOBBER [address] [place] [address] [employer] [facility] 07/29/24 Ena Aguiar PA-C [address] [place] [address] [employer] [facility] 07/29/24 Tyre Fitter Relationship Specialty Start Date End Date Kade Fry MD [address] [place] [address] PCP - General Family Medicine 08/28/19 Addie Birmingham APRN.PIECE JOBBER [address] [place] [address] [employer] [facility] 07/29/24 Ena Aguiar PA-C [address] [place] [address] [employer] 07/29/24 Tyre Fitter Relationship Specialty Start Date End Date Kade Fry MD [address] [place] [address] PCP - General Family Medicine 08/28/19 Addie Birmingham APRN.PIECE JOBBER [address] [place] [address] [employer] [facility] [facility] 07/29/24 Ena Aguiar PA-C [address] [place] [address] [employer] [facility] 07/29/24 Tyre Fitter Relationship Specialty Start Date End Date Kade Fry MD [address] [place] [address] PCP - General Family Medicine 08/28/19 Addie Birmingham [employer] DIRECTOR.PIECE JOBBER [address] [place] [address] [employer] [facility] 07/29/24 Ena Aguiar PA-C [address] [place] [address] [employer] [facility] 07/29/24 Tyre Fitter Relationship Specialty Start Date End Date Kade Fry MD [address] [place] [address] PCP - General Family Medicine 08/28/19 Addie Birmingham, DAMARIS.PIECE JOBBER [address] [place] [address] [employer] [facility] 07/29/24 Ena Aguiar PA-C [address] [place] [address] [employer] [facility] 07/29/24 Tyre Fitter Relationship Specialty Start Date End Date Kade Fry MD [address] [place] [address] PCP - General Family Medicine 08/28/19 Addie Birmingham, DAMARIS.PIECE JOBBER [address] [place] [address] [employer] [facility] 07/29/24 Ena Aguiar PA-C [address] [place] [address] [employer] [facility] 07/29/24 Tyre Fitter Relationship Specialty Start Date End Date Kade Fry MD [address] [place] [address] PCP - General Family Medicine 08/28/19 Addie Birmingham APRN.PIECE JOBBER [address] [place] [address] [employer] [facility] 07/29/24 Ena Aguiar PA-C [address] [place], [place] 14[address]51 [facility] 07/29/24 Team Status: Active Member Role Status [...] Attending Provider Active Start: November 14, 2024 Tyre Fitter Relationship Specialty Start Date End Date Kade Fry MD [address] [place], [place] [address] PCP - General Family Medicine 08/28/19 Addie Birmingham, DAMARIS.ROSHAN [address] [place] [address] [id number] [facility] 07/29/24 Ena Aguiar PA-C [address] [place], [place] 439[address] [facility] 07/29/24 Tyre Fitter Relationship Specialty Start Date End Date Kade Fry MD [address] [place] [address] PCP - General Family Medicine 11/27/24 Addie Birmingham APRN.PIECE JOBBER [address] [place] [address] Drafter [employer] Family [facility] 07/29/24 Ena Aguiar PA-C [address] [place] [address] [facility] 07/29/24 Tyre Fitter Relationship Specialty Start Date End Date Kade Fry MD [address] [place] [address] PCP - General Family Medicine 11/27/24 Addie Birmingham APRN.PIECE JOBBER [address] [place] [address] [facility] 07/29/24 Ena Aguiar PA-C [address] [place] [address] [facility] 07/29/24 Team Status: Inactive Member Role Status [...] November 27, 2024 End: November 27, 2024 Tyre Fitter Relationship Specialty Start Date End Date Kade Fry MD [address] [place] [address] PCP - General Family Medicine 11/27/24 Addie Birmingham APRN.PIECE JOBBER [address] [place] [address] [facility] 07/29/24 Ena Aguiar PA-C [address] [place] [address] [facility] 07/29/24 Tyre Fitter Relationship Specialty Start Date End Date Kade Fry MD [address] [place] [address] PCP - General Family Medicine 11/27/24 Addie Birmingham APRN.PIECE JOBBER [facility] [place] [address] [facility] Medicine 07/29/24 Ena Aguiar PA-C [address] [place] [address] [facility] 07/29/24 Tyre Fitter Relationship Specialty Start Date End Date Kade Fry MD [address] [place] [address] PCP - General Family Medicine 11/27/24 Addie Birmingham APRN.PIECE JOBBER [address] [place] [address] [employer] 07/29/24 Ena Aguiar PA-C [address] [place] [address] [facility] 07/29/24 Team Status: Inactive Member Role Status [...] December 26, 2024 End: December 26, 2024 Tyre Fitter Relationship Specialty Start Date End Date Kade Fry MD [address] [place] [address] PCP - General Family Medicine 11/27/24 Ena Aguiar PA-C [address] [place] [address] [facility] 07/29/24 Team Status: Inactive Member Role Status [...] Provider Active St art: February 12, 2025 Tyre Fitter Relationship Specialty Start Date End Date Kade Fry MD [address] [place] [address] PCP - General Family Medicine 11/27/24 dAdie Birmingham APRN.PIECE JOBBER [address] [place] [id number] [facility] 01/22/25 Ena Aguiar PA-C [address] [place] [id number] [facility] 01/22/25 Team Status: Active Member Role/Relationship Status [...] Status: Inactive Member Role/Relationship Status Dates Dr. Kdae Fry MD Primary Care Provider Active Start: [...] Active Start: April 02, 2025 Zulma Christianson NP-C Attending Provider Active S tart: April 02, 2025 Zulma Christianson BACK LINE COOK-C Referring Provider Active S tart: April 02, 2025 Team Status: Inactive Member Role/Relationship Status Dates Dr. Kade Fry MD Primary Care Provider Active Start: April 02, 2025 End: April 02, 2025 Zulma Christianson NP-C Attending Provider Active S tart: April 02, 2025 End: April 02, 2025 Zulma Christianson BACK LINE COOK-C Referring Provider Active S tart: April 02, 2025 End: April 02, 2025 Team Status: Inactive Member Role/Relationship Status Dates Dr. Kade Fry MD Primary Care Provider Active Start: April 06, 2025 End: April 06, 2025 Dr. Kade Fry MD Referring Provider Active Start: April 06, 2025 End: April 06, 2025 Zulma Christianson NP-Kalie Attending Provider Active S tart: April 06, [...] March 09, 2025 End: March 09, 2025 DONNIE PaulinoC Attending Provider Active S tart: March 09, [...] 2025 End: April 02, 2025 Zulma Christianson NP-Kalie Attending Provider Active S tart: April 02, 2025 End: April 02, 2025 Zulma Christianson NP-C Referring Provider Active S tart: April 02, [...] Referring Provider Active Start: May 03, 2025 Tyre Fitter Relationship Specialty Start Date End Date Kade Fry MD [address] [place] [address] PCP - General Family Medicine 11/27/24 Addie Birmingham APRN.PIECE JOBBER [address] [place] [address] [facility] 01/22/25 Ena Aguiar PA-C [address] [place] [address] [facility] 01/22/25 Team Status: Active Member Role/Relationship Status [...] Provider Active St art: May 15, 2025 Team Status: Inactive Member Role/Relationship Status Dates Dr. Kdae Fry MD Primary care physician Active Start: May 28, 2025 End: May 28, 2025 Dr. Tavon Beauchamp MD Attending physician Active Start: May 28, 2025 End: May 28, 2025 Dr. Tavon Beauchamp MD Referring Provider Active Start: May 28, 2025 End: May 28, 2025 Team Status: Active Member Role/Relationship Status Dates Dr. Kade Fry MD Primary care physician Active Start: May 28, 2025 Dr. Tavon Beauchamp MD Attending physician Active Start: May 28, 2025 Dr. Tavon Beauchamp MD Referring Provider Active Start: May 28, 2025 Dr. Tavon Beauchamp MD Nurse Practitioner Active Start: May 28, 2025 Team Status: Inactive Member Role/Relationship Status Dates Dr. Kade Fry MD Primary care physician Active Start: March 09, 2025 End: March 09, 2025 Dr. Kade Fry MD Referring Provider Active Start: March 09, 2025 End: March 09, 2025 ANY Paulnio Attending physician Active Start: March 09, 2025 [...] Provider Active St art: May 15, 2025 Team Status: Inactive Member Role/Relationship Status Dates Dr. Kade Fry MD Primary care physician Active Start: May 28, 2025 End: May 28, 2025 Dr. Tavon Beauchamp MD Attending physician Active Start: May 28, 2025 End: May 28, 2025 Dr. Tavon Beauchamp MD Referring Provider Active Start: May 28, 2025 End: May 28, 2025 Team Status: Active Member Role/Relationship Status Dates Dr. Kade Fry MD Primary care physician Active Start: May 28, 2025 Dr. Tavon Beauchamp MD Attending physician Active Start: May 28, 2025 Dr. Tavon Beauchamp MD Referring Provider Active Start: May 28, 2025 Dr. Tavon Beauchamp MD Nurse Practitioner Active Start: May 28, 2025 Team Status: Inactive Member Role/Relationship Status Dates Dr. Kade Fry MD Primary care physician Active Start: June 06, 2025 End: June 06, 2025 Dr. Kade Fry MD Referring Provider Active Start: June 06, 2025 End: June 06, 2025 Dr. Tavon Beauchamp MD Attending physician Active Start: June 06, 2025 End: June 06, 2025 Goals (unrecognized section and content) Goals [...] ized section and content) DATE CREATED AUTHOR 06/08/2025 [facility] DATE CREATED AUTHOR AUTHOR'S ORGANIZ ATION 06/22/2025 [facility] FOR RECORDS PERTAINING TO PATIENTS WHO ARE [...] BE BASED ON THE PRIMARY CLINICAL RECORDS. [employer] provides no warranty or guarantee of the accuracy or completeness of information in this document.
[2025-06-29 10:15] LABS: Hematocrit 38.8 % (37-47); Hemoglobin 12.9 g/dL (12.0-15.0); Immature Granulocytes Count 0.010 X10^3/uL (0.0-0.0); Mean Corp Hgb Conc 33.2 g/dL (32-36); Mean Corpuscular Volume 104.9 fL (81-99); Mean Platelet Vol. 10.4 fl (6.2-12.0); NRBC Flagged by Analyzer 0 % (0-5); Platelet Count 181 K/mm3 (150-450); RBC Distribution Width CV 12.5 % (11.6-14.6); RBC Distribution Width SD 47.8 fl (35.1-43.9); Red Blood Count 3.70 M/mm3 (4.2-5.4); White Blood Count 3.3 K/mm3 (4.4-11.0)
[2025-06-29 10:40] LABS: AST(SGOT) 23 U/L (<=31); Alanine Aminotransfer ALT/SGPT 8 U/L (<=34); Albumin, Serum 4.3 g/dL (3.4-4.8); Alkaline Phosphatase 87 U/L (35-104); Anion Gap 10 (5-15); BUN 17 mg/dL (4-19); BUN/Creat Ratio 23.9 RATIO (10-20); Calcium,Total 8.8 mg/dL (7.6-11.0); Carbon Dioxide 27.4 mmol/L (21.0-32.0); Chloride 104 mmol/L (98-108); Globulin 2.2 g/dL (2.2-4.2); Glucose 96 mg/dL (70-99); Potassium 3.9 mmol/L (3.3-5.1)
== END | disposition home or self-care (01) ==
LOC: MTLAB 07:37
PROVIDERS: PCP Family Medicine; Referring Provider Internal Medicine Rheumatology; Visit Provider Internal Medicine Rheumatology
DX: M06.09 Rheumatoid arthritis without rheumatoid factor, multiple sites (principal); Z79.899 Other long term (current) drug therapy; R76.89 Other specified abnormal immunological findings in serum; M79.7 Fibromyalgia
CPT/HCPCS: 36415; 80053; 85025

== ENCOUNTER 2025-08-09 06:55 | Day surgery (SDC) | payer MEDICARE, SELFPAY ==
[2025-08-09] VITALS (8 sets, daily range): BP systolic 115–155; BP diastolic 59–83; PULSE 56–67; RESP 16; TEMP 36.2–36.4; O2SAT 96–100; BMI 34.8
--- OUTSIDE RECORDS SUMMARY | 2025-08-09 07:00 | XMS RPT_ITS | CCD ---
Author Organization 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 Braun Primary Care Provider [phone] Nabil PEARSON, Dr. Arroyo Attending Provider Nabil [...] Devora NGUYEN, Dr. Clifford Other Provider [phone] Vinnie OCAMPO.Addie ISLAS Unavailable Ena Aguiar PA-C Unavailable Sammy AGARWAL, Zulma Attending Provider [phone] Ang PEARSON, Dr. Braun Primary Care Provider Devora NGUYEN, Dr. Clifford Attending Provider Devora NGUYEN, Dr. Clifford Referring Provider Ang PEARSON, Dr. Braun Referring Provider Sammy THRASHER FEEDER-C, Zulma Referring Provider [phone] Ang PEARSON, Dr. Braun Primary Care Provider Devora NGUYEN, Dr. Clifford Attending Provider Nabil PEARSON, Dr. Arroyo Attending Provider Nabil PEARSON, Dr. Arroyo Referring Provider Quynh PEARSON, Dr. Montes De Oca Attending Provider Quynh PEARSON, Dr. Montes De Oca Referring Provider Ang PEARSON, Dr. Braun Primary Care Physician [phone] Devora NGUYEN, Dr. Clifford Attending Physician [phone] Devora NGUYEN, Dr. Clifford Nurse Practitioner Sammy THRASHER FEEDER-C, Zulma Attending Physician Nabil PEARSON, Dr. Arroyo Attending Physician Quynh PEARSON, Dr. Montes De Oca Attending Physician Jesse PEARSON, Dr. Bauer Attending Physician Dr. El Gomez MD Referring Provider Quynh PEARSON, Dr. Montes De Oca Nurse Practitioner Ang PEARSON, Dr. Braun Primary Care Physician Dr. Kade Fry MD Referring Provider Kade Fry Primary Care Unavailable Dina Ferrer Attending Unavailable Dina Ferrer Referring Unavailable Darrin Lozoya Referring Unavailable Darrin Lozoya Attending Unavailable Kade Fry Primary Care Unavailable Kade Fry Primary Care Unavailable Kade Fry Referring Unavailable Darrin Lozoya Attending Unavailable Ang, Kade Primary Care Unavailable Zulma Christianson Referring Unavailable Zulma Christianson Attending Unavailable Ang, Kade Primary Care Unavailable Vellanki, Dina Attending Unavailable Vellanliu, Dina Referring Unavailable Manoj Gamino Referring Unavailable Manoj Gamino Attending Unavailable Ang, Kade Primary Care Unavailable Friend, Darrin Referring Unavailable Ang, Kade Primary Care Unavailable Friend, Darrin Attending Unavailable Tavon Beauchamp Referring Unavailable Tavon Beauchamp Attending Unavailable Ang, Kade Primary Care Unavailable Tavon Beauchamp Referring Unavailable Tavon Beauchamp Attending Unavailable Ang, Kade Primary Care Unavailable Ang, Kade Primary Care Unavailable Ang, Kade Referring Unavailable Friend, Darrin Consulting Unavailable Friend, Darrin Attending Unavailable Tavon Beauchamp Attending Unavailable Ang, Kade Primary Care Unavailable Ang, Kade Referring Unavailable Vellanki, Dina Referring Unavailable Vellanki, Dina Attending Unavailable Ang, Kade Primary Care Unavailable Vellanki, Dina Referring Unavailable Vellanki, Dina Attending Unavailable Ang, Kade Primary Care Unavailable Vellanki, Dina Attending Unavailable Vellanki, Dina Referring Unavailable Ang, Kade Primary Care Unavailable Tavon Beauchamp Attending Unavailable Ang, Kade Referring Unavailable Ang, Kade Primary Care Unavailable Ang, Kade Referring Unavailable Friend, Darrin Attending Unavailable Ang, Kade Primary Care Unavailable Ang, Kade Primary Care Unavailable Ang, Kade Referring Unavailable Zulma Christianson Attending Unavailable Ang, Kade Primary Care Unavailable Ang, Kade Referring Unavailable Zulma Christianson Attending Unavailable Tavon Beauchamp Consulting Unavailable Tavon Beauchamp Referring Unavailable Tavon Beauchamp Attending Unavailable Ang, Kade Primary Care Unavailable Manoj Gamino Referring Unavailable Manoj Gamino Consulting Unavailable Ang, Kade Primary Care Unavailable Chas Bello Attending Unavailable CHETAN BHAGAT Attending Unavailable ANG, KADE A Primary Care Unavailable MANOJ GAMINO Attending Unavailable MANOJ GAMINO Referring Unavailable ANG, KADE A Referring Unavailable ANG, KADE A Primary Care Unavailable ANG, KADE A Referring Unavailable ANG, KADE A Primary Care Unavailable ANG, KADE A Referring Unavailable ANG, KADE A Primary Care Unavailable ANG, KADE A Referring Unavailable ANG, KADE A Primary Care Unavailable ANG, KADE A Attending Unavailable ENA AGUIAR Referring Unavailable ANG, KADE A Primary Care Unavailable MANOJ GAMINO Attending Unavailable ANGKADE APODACA Referring Unavailable ANGKADE APODACA Primary Care Unavailable CHETAN BHAGAT Attending Unavailable ANGTAL APODACAREY Grace Referring Unavailable ANGKADE APODACA Primary Care Unavailable TESTCHETAN BELL Referring Unavailable KADE FRY Primary Care Unavailable TESTCHETAN BELL Attending Unavailable KADE FRY Primary Care Unavailable KADE FRY Referring Unavailable KADE FRY Primary Care Unavailable Unavailable Unavailable Unavailable Allergies Allergy Classification Reported Allergen(s) Allergy Type Date of Onset Reaction(s) Facility Alendronate (1 source) Alendronate Drug Allergy 12-13-19 24 Other: See Comments [facility] diphenhydrAMINE (1 source) diphenhydrAMINE Drug Allergy 01-02-20 06 Other: See Comments [facility] Work Phone: Latex (1 source) Latex Substance Allergy 01-15-[address] [facility] Proton Pump Inhibitors (1 source) lansoprazole Drug Allergy 01-02-20 06 [facility] (20 sources) Adhesive agent; Translations: [adhesive] Propensity to adverse reactions 03-18-[address] [facility] (20 sources) diphenhydrAMINE Drug Allergy 05-26-20 16 [facility] (20 sources) lansoprazole; Translations: [LANSOPRAZOLE] Drug Allergy 01-02-20 06 [facility] Work Phone: (20 sources) Latex; Translations: [LATEX] Allergy to substance 01-15-[address] [facility] Work Phone: [phone] (20 sources) diphenhydrAMINE; Translations: [DIPHENHYDRAMINE HCL] Drug Allergy 01-02-20 06 Other: See Comments [facility] Work Phone: [phone] (14 sources) environmental [Other] Propensity to adverse reactions 02-07-[address] [facility] Work Phone: [phone] (20 sources) Alendronate; Translations: [ALENDRONATE] Drug Allergy 12-13-19 24 Other: See Comments [facility] (1 source) Alendronate Drug Allergy 05-14-20 25 [facility] Repository (1 source) diphenhydrAMINE Drug Allergy 05-14-20 [facility] Repository (1 source) lansoprazole Drug Allergy 05-14-20 [facility] Repository (1 source) Latex Drug allergy (disorder) 05-14-20 [facility] Repository Medications Current Medications Medication Drug Class(es) [...] ALLERGY) 32 mcg/actuation nasal spray Use 1 [place] in each nostril as needed. 09/21/2024 Active Start: 08-24-2017 End: 09-21-2024 take 1 spray(s) nasal route once daily budesonide (RHINOCORT ALLERGY) 32 mcg/actuation nasal spray Indications: Seasonal allergic rhinitis due to other allergic trigger, unspecified chronicity Use 1 [place] in each nostril once daily. 3 Bottle 3 08/24/2017 09/21/2024 Discontinued Comment on above: Use 1 [place] in each nostril once daily. calcium carbonate [...] Start: 05-26-2016 take 2 tablets by mo prh twice daily Start: 05-26-2016 Cholecalcifero l (Vitamin [...] Comment on above: [facility] doxycycline monohydrate 100 mg oral capsule (1 source) Tetracycline-class Drug Start: 06-18-20 End: 06-18-20 22 take 2 capsules by mouth once doxycycline [...] (20 sources) Histamine-1 Receptor Antagonist Start: 12-17-19 fexofenadine hcl(CARMELITA 180 MG TAB) Indications: Allergic [...] above: Take 1 tablet by felipe th every 8 hours as needed. FOR PAIN. [...] on above: TAKE 5 TABLETS BY MO [facility] ONCE A WEEK AFTER TAKING 4 [...] on above: 1 Drop twice daily. pataday [place]-3 Fatty Acids-Fish Oil (Fish Oil 1,000 Mg Capsule) 1 EACH capsule (12 sources) Start: 05-26-2016 [place]-3 Fatty Acids-Fish Oil (Fish Oil 1,000 Mg Capsule) 1 EACH capsule Active 3 EACH PO DAILY May 26, 2016 10:57am Start: 05-26-2016 [place]-3 Fatty Acids-Fish Oil (Fish Oil 1,000 Mg Capsule) 1 EACH capsule Active 3 NMA PO DAILY May 26, 2016 12:00am Start: 05-26-2016 [place]-3 Fatty Acids-Fish Oil (Fish Oil 1,000 Mg Capsule) 1 EACH capsule Active 3 EACH PO DAILY May 25, 2016 11:00pm Start: 05-26-2016 [place]-3 Fatty Acids-Fish Oil (Fish Oil 1,000 Mg Capsule) 1 EACH capsule Active 3 EACH PO DAILY May 26, 2016 12:00am [place]-3 Fatty Acids-Fish Oil (Fish Oil) 1 EACH capsule (9 sources) Start: 05-26-2016 Start: 05-26-2016 [place]-3 Fatty Acids-Fish Oil (Fish Oil) 1 EACH capsule Active 1 NMA PO DAILY May 26, 2016 12:00am Complies with drug therapy Start: 05-26-2016 [place]-3 Fatty Acids-Fish Oil (Fish Oil) 1 EACH capsule Active 1 NMA PO DAILY May 26, 2016 12:00am [place] Fatty Acids/Fish Oil (Fish Oil 1,000 Mg Capsule) 1 EACH Capsule (1 source) Start: 05-26-2016 [place]-3 Fatty Acids/Fish Oil (Fish Oil 1,000 Mg [...] 1 capsule by mo uth once daily. sodium chloride-aloe vera (AYR SALINE) [...] 6 HOURS as needed for pain 10 5 May 28, 2025 June 06, 2025 9:40am [...] Comment on above: CONTROLLED AT THIS T [facility] WITH MED Essential hypertension (20 sources) Essential hypertension; Translations: [Essential (primary) hypertension] Onset: 0 08-28-2019 Chronic Genitourinary symptoms and ill-defined conditions (20 sources) Mixed urinary incontinence; Translations: [Mixed incontinence] Onset: 2 08-28-2019 Chronic Hemorrhoids (20 sources) Internal hemorrhoids; Translations: [Other hemorrhoids] Episodic Immunizations and screening for infectious disease (20 sources) Anti-nuclear factor positive; Translations: [Other specified abnormal immunological findings in serum] Onset: 2 Resolved: 4 09-25-2021 Episodic Intestinal obstruction without hernia (20 sources) [...] 10-06-2023 Episodic Rheumatoid arthritis and related disease (3 sources) Rheumatoid arthritis without rheumatoid factor, multiple [...] Translations: [Sinus headache] Onset: 0 08-28-2019 Episodic Other acquired deformities (20 sources) Lumbar spondylolisthesis; Translations: [Spondylolisthesis, lumbar region] Onset: 2 09-23-2021 Episodic Other aftercare (20 sources) Patient encounter status; Translations: [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] Onset: 0 08-28-2019 Episodic Other aftercare (2 sources) Other group home (current) drug therapy; Translations: [Other group home (current) drug therapy] Onset: 0 Episodic Other bone disease and [...] 2 09-19-2021 Episodic Other connective tissue disease (2 sources) Fibromyalgia; Translations: [Fibromyalgia] Onset: 0 Episodic Other [...] disorders (3 sources) Anesthesia of skin; Translations: [Anesthesia of skin] Onset: 5 Episodic Other nervous system disorders (2 sources) Paresthesia of skin; Translations: [Paresthesia of skin] Onset: 5 Episodic Other screening for suspected [...] Test Name Value Interpretation Reference Range Facility [facility] RTon 025 [facility] * * *Final Report* * * DATE OF EXAM: Jul 03 2025 2:17PM [id number] - [facility] / PROCEDURE REASON: Abnormal mammogram * * * * Physician Interpretation * * * * RESULT: [place] [address]791 #[id number] - [facility] RAMON Lange IR[place] RT #[id number] - [facility] US BREAST LTD RT HISTORY: 70 year-old patient presents for short term follow-up of right breast findings described on prior mammogram and ultrasound. Patient states no personal history of breast cancer. The patient has a family history of breast cancer. COMPARISOnSTUDIES: The present examination has been compared to prior imaging studies dated 11/06/2022 (mammogram), 11/12/2023 (mammogram), 11/13/2024 (mammogram), 12/05/2024 (ultrasound) and 12/05/2024 (mammogram). MAMMOGRAM TECHNIQUE: The study was acquired using full field digital technology and interpreted from soft copy. Digital Breast Tomosynthesis (DBT) images were obtained and used to assist in the interpretation of this examination. MAMMOGRAM FINDINGS: There are scattered areas of fibroglandular density. There is a stable equal dense asymmetry measuring 0.4 cm with circumscribed margins in the subareolar region inferior right breast. No suspicious mass, calcifications, or other abnormality is seen in the right breast. ULTRASOUND TECHNIQUE: Targeted ultrasound of the indicated area was performed. Tineo scale images were saved. ULTRASOUND FINDINGS: No abnormality is seen at the site of mammographic concern. There are no suspicious findings in the imaged area. IMPRESSION: There is no mammographic or sonographic evidence of malignancy. Return to annual screening mammogram is recommended. Annual mammogram will be due in 5 months. BI-RADS Category 2: Benign RISK: Based on the Tyrer-Cuzick (TC) risk assessment model, this patient has a 5.5% lifetime risk of developing breast cancer, meaning [...] Radiologist: Azra De M.D. Electronically signed on: 07/03/2025 Senior Process Control Tech: RUI Transcribe Date/Time: Jul 03 2025 2:03P Dictated by: AZRA DE MD This examination was interpreted and the report reviewed and electronically signed by: AZRA DE MD on Jul 03 2025 2:58PM EST [id number] Normal [facility] US BREAST LTD RTon 07-03 [facility] US BREAST LTD RT * * *Final Report* * * DATE OF EXAM: Jul 03 2025 2:46PM WRU [id number] - [facility] US BREAST LTD RT / PROCEDURE REASON: Abnormal mammogram * * * * Physician Interpretation * * * * [place] [address] #[id number] - [facility] DIAG W IR[place] RT #[id number] - [facility] US BREAST LTD RT HISTORY: 70 year-old patient presents for short term follow-up of right breast findings described on prior mammogram and ultrasound. Patient states no personal history of breast cancer. The patient has a family history of breast cancer. COMPARISOnSTUDIES: The present examination has been compared to prior imaging studies dated 11/06/2022 (mammogram), 11/12/2023 (mammogram), 11/13/2024 (mammogram), 12/05/2024 (ultrasound) and 12/05/2024 (mammogram). MAMMOGRAM TECHNIQUE: The study was acquired using full field digital technology and interpreted from soft copy. Digital Breast Tomosynthesis (DBT) images were obtained and used to assist in the interpretation of this examination. MAMMOGRAM FINDINGS: There are scattered areas of fibroglandular density. There is a stable equal dense asymmetry measuring 0.4 cm with circumscribed margins in the subareolar region inferior right breast. No suspicious mass, calcifications, or other abnormality is seen in the right breast. ULTRASOUND TECHNIQUE: Targeted ultrasound of the indicated area was performed. Tineo scale images were saved. ULTRASOUND FINDINGS: No abnormality is seen at the site of mammographic concern. There are no suspicious findings in the imaged area. IMPRESSION: There is no mammographic or sonographic evidence of malignancy. Return to annual screening mammogram is recommended. Annual mammogram will be due in 5 months. BI-RADS Category 2: Benign RISK: Based on the Tyrer-Cuzick (TC) risk assessment model, this patient has a 5.5% lifetime risk of developing breast cancer, meaning [...] Radiologist: Azra De M.D. Electronically signed on: 07/03/2025 Senior Process Control Tech: RUI Transcribe Date/Time: Jul 03 2025 2:33P Dictated by : AZRA DE MD This examination was interpreted and the report reviewed and electronically signed by: AZRA DE MD on Jul 03 2025 2:58PM EST [id number] Normal [facility] CBC W/Diff, Automatedon 11-0 -2024 Absolute Lymph 0.95 X10 3/uL Normal 0.83-4.51 [facility] Comment on above: Performed By: #### L 500.4050, L100.0100 ####[facility] [address] [place], [address] Absolute Neut 1.9 X10 3/uL Low 2.0-7.7 [facility] Comment on above: Performed By: #### L 500.4050, L100.0100 ####[facility] [address] [place], [address] Basophils/100 WBC (Bld) 0.9 % Normal 0-1 [facility] Comment on above: Performed By: #### L 500.4050, L100.0100 ####[facility] [address] [place], [address] Eosinophils/100 WBC (Bld) 3.9 % Normal 0-5 [facility] Comment on above: Performed By: #### L 500.4050, L100.0100 ####[facility] [address] [place], [address] Erythrocyte distribution width (RBC) [Ratio] 12.5 % Normal 11.6-14.6 [facility] Comment on above: Performed By: #### L 500.4050, L100.0100 ####[facility] [address] [place], [address] Hematocrit (Bld) [Volume fraction] 38.8 % Normal 37-47 [facility] Comment on above: Performed By: #### L 500.4050, L100.0100 ####[facility] [address] [place], [address] Hemoglobin (Bld) [Mass/Vol] 12.9 g/dL Normal 12.0-15.0 [facility] Comment on above: Performed By: #### L 500.4050, L100.0100 ####[facility] [address] [place], [address] IG% 0.300 Normal 0.0-0.9 [facility] Comment on above: Result Comment: IG% - Immature Granulocytes (promyelocytes, myelocytes and metamyelocytes) > 1% indicates that a LEFT SHIFT is Present. Performed By: #### L 500.4050, L100.0100 ####[facility] [address] [place], [address] Lymphocytes/100 WBC (Bld) 28.8 % Normal 19-41 [facility] Comment on above: Performed By: #### L 500.4050, L100.0100 ####[facility] [address] [place], [address] MCH (RBC) [Entitic mass] 34.9 pg High 27.0-32.0 [facility] Comment on above: Performed By: #### L 500.4050, L100.0100 ####[facility] [address] [place], [address] MCHC (RBC) [Mass/Vol] 33.2 g/dL Normal 32-36 [facility] Comment on above: Performed By: #### L 500.4050, L100.0100 ####[facility] [address] [place], [address] MCV (RBC) [Entitic vol] 104.9 fL High 81-99 [facility] Comment on above: Performed By: #### L 500.4050, L100.0100 ####[facility] [address] [place], [address] Monocytes/100 WBC (Bld) 9.1 % Normal 0-10 [facility] Comment on above: Performed By: #### L 500.4050, L100.0100 ####[facility] [address] [place], [address] Neutrophils/100 WBC (Bld) 57.0 % Normal 47-70 [facility] Comment on above: Performed By: #### L 500.4050, L100.0100 ####[facility] [address] [place], [address] Nucleated RBC (Bld) [#/Vol] 0 10*3/uL Normal 0-5 [facility] Comment on above: Performed By: #### L 500.4050, L100.0100 ####[facility] [address] [place], [address] Platelet mean volume (Bld) [Entitic vol] 10.4 fL Normal 6.2-12.0 [facility] Comment on above: Performed By: #### L 500.4050, L100.0100 ####[facility] [address] [place], [address] Platelets (Bld) [#/Vol] 181 10*3/uL Normal 150-450 [facility] Comment on above: Performed By: #### L 500.4050, L100.0100 ####[facility] [address] [place], [address] RBC (Bld) [#/Vol] 3.70 10*6/uL Low 4.2-5.4 [facility] Comment on above: Performed By: #### L 500.4050, L100.0100 ####[facility] [address] [place], [address] RDW SD 47.8 fl High 35.1-43.9 [facility] Comment on above: Performed By: #### L 500.4050, L100.0100 ####[facility] [address] [place], [address] WBC (Bld) [#/Vol] 3.3 10*3/uL Low 4.4-11.0 [facility] Comment on above: Performed By: #### L 500.4050, L100.0100 ####[facility] [address] [place], [address] Comprehensive Metabolic Prof [facility] 06-29-2025 Albumin [Mass/Vol] 4.3 g/dL Normal 3.4-4.8 [facility] Comment on above: Performed By: #### L 500.4050, L100.0100 ####[facility] [address] [place], [address] Albumin/Globulin [Mass ratio] 2.0 {ratio} Normal 0.9-2.4 [facility] Comment on above: Performed By: #### L 500.4050, L100.0100 ####[facility] [address] [place], [address] ALK PHOS 87 U/L Normal 35-104 [facility] Comment on above: Performed By: #### L 500.4050, L100.0100 ####[facility] [address] [place], [address] ALT [Catalytic activity/Vol] 8 U/L Normal <=34 [facility] Comment on above: Performed By: #### L 500.4050, L100.0100 ####[facility] [address] [place], [address] AST [Catalytic activity/Vol] 23 U/L Normal <=31 [facility] Comment on above: Performed By: #### L 500.4050, L100.0100 ####[facility] [address] [place], [address] Bilirubin [Mass/Vol] 0.72 mg/dL Normal 0.00-1.30 [facility] Comment on above: Performed By: #### L 500.4050, L100.0100 ####[facility] [address] [place], [address] BUN/CRE 23.9 RATIO High 10-20 [facility] Comment on above: Performed By: #### L 500.4050, L100.0100 ####[facility] [address] [place], [address] Calcium [Mass/Vol] 8.8 mg/dL Normal 7.6-11.0 [facility] Comment on above: Performed By: #### L 500.4050, L100.0100 ####[facility] [address] [place], [address] Chloride [Moles/Vol] 104 mmol/L Normal 98-108 [facility] Comment on above: Performed By: #### L 500.4050, L100.0100 ####[facility] [address] [place], [address] CO2 [Moles/Vol] 27.4 mmol/L Normal 21.0-32.0 [facility] Comment on above: Performed By: #### L 500.4050, L100.0100 ####[facility] [address] [place], [address] Creatinine [Mass/Vol] 0.71 mg/dL Normal 0.70-1.20 [facility] Comment on above: Performed By: #### L 500.4050, L100.0100 ####[facility] [address] [place], [address] GAP 10 Normal 5-15 [facility] Comment on above: Performed By: #### L 500.4050, L100.0100 ####[facility] [address] [place], [address] GFR/1.73 sq M.predicted among non-blacks MDRD (S/P/Bld) [Vol rate/Area] 91 mL/min/{1.73_m2} Normal >60 [facility] Comment on above: Result Comment: mL/m in/1.73m2 CKD-EPI Creatinine Equation (2020) Performed By: #### L 500.4050, L100.0100 ####[facility] [address] [place], [address] Globulin (S) [Mass/Vol] 2.2 g/dL Normal 2.2-4.2 [facility] Comment on above: Performed By: #### L 500.4050, L100.0100 ####[facility] [address] [place], [address] Glucose [Mass/Vol] 96 mg/dL Normal 70-99 [facility] Comment on above: Performed By: #### L 500.4050, L100.0100 ####[facility] [address] [place], [address] Potassium [Moles/Vol] 3.9 mmol/L Normal 3.3-5.1 [facility] Comment on above: Performed By: #### L 500.4050, L100.0100 ####[facility] [address] [place], [address] Sodium [Moles/Vol] 141 mmol/L Normal 133-145 [facility] Comment on above: Performed By: #### L 500.4050, L100.0100 ####[facility] [address] [place], [address] T PROT 6.5 g/dL Normal 5.9-8.4 [facility] Comment on above: Performed By: #### L 500.4050, L100.0100 ####[facility] [address] [place], [address] Urea nitrogen [Mass/Vol] 17 mg/dL Normal 4-19 [facility] Comment on above: Performed By: #### L 500.4050, L100.0100 ####[facility] [address] [place], [address] Surgery Visit Reporton 06-06 Surgery Visit Report [facility] [address] [place] [address] OFFICE VISIT Date of Service: 06/06/25 MR#: [id number] Acct: [id number] Name: ELISHA GODFREY Rep #: [id number] : 1955 Provider: Dr. Tavon andrew MD Age/Sex: 70/F Location: [facility] Status: Signed Intake Vital Signs 05/28/25 06:24 [...] and she reports that she is feeling a lot better. She states she noticed a difference with her stomach right away. They report minimal postoperative pain and did not require any of the prescribed pain medication during her recovery. She shares that her bowels are doing good and adds that they are better than what they had been. They had no wound concerns. They confirm that they are abiding by lifting restrictions. In addition to the above she is pleased to report that she had some issues with her legs and describes that she [...] post spigelian hernia repair, follow-up exam Z09 [facility] Medical History Loss of hearing Post-menopausal Bladder [...] Bleeding disord (more content not included)... Normal [facility] Discharge Instructionon 10-0 Discharge Instruction [facility] Medical Records Department [address] [place] [address] Instructions for Home/Discharge Instructions 05/28/25 1102 MR#: [id number] Acct: [id number] Name: ELISHA GODFREY Rep #: [id number] : 1955 70 From: Tavon Beauchamp MD PCP: Dr. Kade Fry MD [place] [facility] [place]charge Instructions Diet Discharge Diet: No restrictions [...] Care Provider: Kade Fry Instructions Print Language: Trinidadian Discharge Orders/Prescriptions Prescriptions: New oxycodone 5 mg [...] MD CC: Dr. Kade Fry MD Signed [facility] MR/POSTOP.ANE 05-28-2025 MR/POSTOP.[facility] Medical Records Department [address] [place] [address] Anesthesia Postop Eval I 05/28/251116 MR#: [id number] Acct: [id number] Name: ELISHA GODFREY Gray Rep #: [id number] : 1955 70 From: Eddie Miller CRNA PCP: Dr. Kade Fry MD Status:REG SDC Y Race: C Location: [place] [address] Anesthesia: Postop Eval I Current Vital Signs [...] Anesthesia document: Postop Eval 1 completed: Yes 05/28/251117 Date Eddie Dormanignkaty Signature: Date CC: Signed [facility] MR/QCOCTBWE9on 05-28-2025 MR/POSTOPAN2 [facility] Medical Records Department [address] [place] [address] Anesthesia Postop Eval II 05/28/25 1236 MR#: [id number] Acct: [id number] Name: ELISHA GODFREY Rep #: [id number] : 1955 70 From: Mikaela Bustamante CRNA PCP: Dr. Kade Fry MD Status:REG SDC Y Race: C Location: [facility] Anesthesia Postop Eval I Sum Postop Eval Completion status Anesthesia document: Postop Eval 1 completed: Yes Anesthesia Postop Eval I Summary Anesthesia Postop Eval I Summary: Anesthesia Postop Eval I: Assessment Summary Airway patent Yes 05/28/25 11:18 DIVER [email or web address] Spontaneous unlabored Yes 05/28/25 11:18 DIVER [email or web address].PKEL respirations Mental status Awake,Calm 05/28/25 11:18 DIVER PUMPER.PKEL nausea No 05/28/25 11:18 DIVER [email or web address].PKEL Vomiting No 05/28/25 11:18 DIVER [email or web address].PKEL Anesthesia Postop Eval I: Fluid Summary Crystalloid volume administer 2,000 05/28/25 11:18 DIVER [email or web address].PKEL (ml) Colloids volume administered ( ml) Blood Product volume administered (ml) Total IV fluid infused 2,000 05/28/25 11:18 DIVER [email or web address].PKEL Anesthesia Postop Eval I: Summary Notes Anesthesia Complication No 05/28/25 11:18 DIVER [email or web address].PKEL Anesthesia Complication Comment: Post-operative progress note Anesthesia: Postop Eval II Evaluation Mental status: Awake and Calm Pain Level: 1 nausea: No Vomiting: No Complications Anesthesia Complication: No 05/28/25 1236 Date Mikaela Bustamante DIVER PUMPER Cosigner Signature: Date CC: Signed Normal [facility] Operative Reporton 5 Operative Report [facility] Medical Records Department [address] [place] [address] Operative Report 05/28/25 1057 MR#: [id number] Acct: [id number] Name: ELISHA GODFREY Rep #: [id number] : 1955 70 From: Tavon Beauchamp MD PCP: Dr. Kade Fry MD Status:[facility] [place] [facility] Operative Report (Standard) Operative Information Date of Procedure: 05/28/25 Pre-Operative Diagnosis: Left spigelian hernia containing colon Post-Operative Diagnosis: Left spigelian hernia containing sigmoid colon Surgery/Procedure Performed: Robot-assisted transabdominal preperitoneal repair of spigelian hernia with mesh placement tariff inspector: Yes Dry Pan Charger: Avani Gilbert Tasks completed by senior care assistant: Opening closing and Other (Material and [...] x 12 cm)) Prosthetic device details: LOT [id number], reference [id number] Estimated Blood Loss: 25 Specimen collected: No [...] the p (more content not included)... Normal [facility] 12 Lead EKGon 05-15-2025 12 Lead EKG [facility] Cardiovascular Services [address] [place] [address] 12 Lead EKG 05/15/25 0809 MR#: [id number] Acct: [id number] Name: ELISHA GODFREY Rep #: [id number] : 1955 70 From: Juancarlos Molina MD Attending Dr: Dr. Tavon Beauchamp MD Status: [facility] Ordering Dr: El Gomez MD Date: 05/15/25 [place] [facility] Sex: F C Admitted: Test Reason : [...] No significant change was found Confirmed by JUANCARLOS MOLINA MD ([id number]), editor index SANDEEP PHIPPS ([id number]) on 05/15/2025 1:50:53 PM Referred By: Tavon Beauchamp Confirmed By: JUANCARLOS MOLINA MD 05/15/25 1350 Date Juancalros Molina MD CC: Dr. El Gomez MD; Dr. Kade Fry MD; Dr. Tavon Beauchamp MD Signed [facility] Electrocardiogram reportOrde red By: Juancarlos Molina on 05-15-2025 EKG study [facility] Cardiovascular Services [address] [place] [address] 12 Lead EKG 05/15/25 0809 MR#: [id number] Acct: [id number] Name: ELISHA GODFREY Rep #:[id number] : 1955 70 From: Juancarlos Molina MD Attending Dr: Dr. Tavon Beauchamp MD Status: PRE [facility] Ordering Dr: El Gomez MD Date: 04/24 11/14 [place] [facility] Sex: F C Admitted: Test Reason : [...] was found Confirmed by JESSE PEARSON, JUANCARLOS ([id number]), editor index SANDEEP PHIPPS ([id number]) on 05/15/2025 1:50:53 PM Referred By: Tavon Beauchamp Confirmed By: JUANCARLOS MOLINA MD 05/15/25 1350 Date _ Juancarlos Molina MD CC: Dr. El Gomez MD; Dr. Kade Fry MD; Dr. Tavon Beauchamp MD ~ Signed [facility] Work Phone: MRSA/SAID NASAL SCREENon MRSA+SAID SCRN Copy of report sent to Infection Control Printer MS#[id number] 05/04/25 6453 [facility] MRSA MRSA Negative S. AUREUS S. aureus PositiveA Normal [facility] Comment on above: Performed By: #### M 100.651 ####[facility] [address] [place], [place], [id number] MRSA screenOrdered By: Erwin Beauchamp on 05-03-2025 MRSA DNA JOSELUIS+probe Ql (Unsp spec) [facility] Surgery Visit Reporton 05-03 Surgery Visit Report [facility] [address] [place], [place] [id number] OFFICE VISIT Date of Service: 05/03/25 MR#: [id number] Acct: [id number] Name: ELISHA GODFREY Rep #: [id number] : 1955 Provider: Dr. aTvon andrew MD Age/Sex: 70/F Location: [facility] Status: Signed Intake Vital Signs 02/12/25 09:26 [...] was undertake (more content not included)... Normal [facility] Gastroenterology Visit Repor ton 04-06-2025 Gastroenterology Visit Report [facility] Gastroenterology [address] [place] [address] OFFICE VISIT Date of Service: 04/06/25 MR#: [id number] Acct: [id number] Name: ELISHA GODFREY Rep #: [id number] : 1955 Provider: ANY matta Age/Sex: 69/F Location: [facility] Status: Signed Intake Vital Signs 02/12/25 [...] with incomplete (more content not included)... Normal [facility] Abdomen/Pelvis WITH Contrast on 04-02-2025 Abdomen/Pelvis WITH Contrast [facility] Imaging Services [address] [place] [address] Abdomen/Pelvis WITH Contrast MR#: [id number] Acct: [id number] Name: ELISHA GODFREY Rep #: [id number] : 1955 F 69 From: Ry soto MD PCP: Dr. Kade Fry MD Status: REG CLI Study: Abdomen/Pelvis WITH Contrast Date of Exam: 07/17 Exam# [id number] Ordering Dr: Zulma Christianson THRASHER FEEDER-C PROCEDURE: ABDOMEN/PELVIS WITH CONTRAST 04/02/2025 REASON FOR [...] small bowel loops. Sigmoid diverticulosis. Reading Location: [facility] CC: ANY Christianson; Dr. Kade Fry MD Senior Process Control Tech: Signed Normal [facility] Absolute lymphocyte countOrd ered By: Dina Ferrer on 03-27-2025 Lymphocytes Auto (Unsp spec) [#/Vol] 1.20 10*3/uL 0.83-4.51 [facility] Absolute neutrophil countOrd ered By: Dina Ferrer on 03-27-2025 Neutrophils (Bld) [#/Vol] 3.0 10*3/uL 2.0-7.7 [facility] Anion gap in Serum or Plasma Ordered By: Dina Ferrer on 03-27-2025 Anion gap [Moles/Vol] 13 mmol/L 5-15 [facility] Automated lymphocyte count a s percentage of total leukocytesOrdered By: Dina Ferrer on 03-27-2025 Lymphocytes/100 WBC Auto (Unsp spec) 25.9 % 19- [facility] BUN/creatinine ratioOrdered By: Dina Ferrer on 03-27-2025 Urea nitrogen/Creatinine [Mass ratio] 23.9 mg/mg High 10-20 [facility] Basophil percentageOrdered B y: Dina Ferrer on 03-27-2025 Basophils/100 WBC (Bld) 0.4 % 0-1 [facility] Bilirubin, totalOrdered By: Dina Ferrer on 03-27-2025 Bilirubin [Mass/Vol] 0.72 mg/dL 0.00-1.30 [facility] CBC W/Diff, Automatedon Absolute Lymph 1.20 X10 3/uL Normal 0.83-4.51 [facility] Comment on above: Performed By: #### L 100.0100, L500.4050 ####[facility] [address] [place], [address] Absolute Neut 3.0 X10 3/uL Normal 2.0-7.7 [facility] Comment on above: Performed By: #### L 100.0100, L500.4050 ####[facility] [address] [place], [address] Basophils/100 WBC (Bld) 0.4 % Normal 0-1 [facility] Comment on above: Performed By: #### L 100.0100, L500.4050 ####[facility] [address] [place], [address] Eosinophils/100 WBC (Bld) 1.7 % Normal 0-5 [facility] Comment on above: Performed By: #### L 100.0100, L500.4050 ####[facility] [address] [place], [address] Erythrocyte distribution width (RBC) [Ratio] 12.6 % Normal 11.6-14.6 [facility] Comment on above: Performed By: #### L 100.0100, L500.4050 ####[facility] [address] [place], [address] Hematocrit (Bld) [Volume fraction] 41.4 % Normal 37-47 [facility] Comment on above: Performed By: #### L 100.0100, L500.4050 ####[facility] [address] [place], [address] Hemoglobin (Bld) [Mass/Vol] 13.9 g/dL Normal 12.0-15.0 [facility] Comment on above: Performed By: #### L 100.0100, L500.4050 ####[facility] [address] [place], [address] IG% 0.400 Normal 0.0-0.9 [facility] Comment on above: Result Comment: IG% - Immature Granulocytes (promyelocytes, myelocytes and metamyelocytes) > 1% indicates that a LEFT SHIFT is Present. Performed By: #### L 100.0100, L500.4050 ####[facility] [address] [place], [address] Lymphocytes/100 WBC (Bld) 25.9 % Normal 19-41 [facility] Comment on above: Performed By: #### L 100.0100, L500.4050 ####[facility] [address] [place], [address] MCH (RBC) [Entitic mass] 35.0 pg High 27.0-32.0 [facility] Comment on above: Performed By: #### L 100.0100, L500.4050 ####[facility] [address] [place], [address] MCHC (RBC) [Mass/Vol] 33.6 g/dL Normal 32-36 [facility] Comment on above: Performed By: #### L 100.0100, L500.4050 ####[facility] [address] [place], [address] MCV (RBC) [Entitic vol] 104.3 fL High 81-99 [facility] Comment on above: Performed By: #### L 100.0100, L500.4050 ####[facility] [address] [place], [address] Monocytes/100 WBC (Bld) 6.3 % Normal 0-10 [facility] Comment on above: Performed By: #### L 100.0100, L500.4050 ####[facility] [address] [place], [address] Neutrophils/100 WBC (Bld) 65.3 % Normal 47-70 [facility] Comment on above: Performed By: #### L 100.0100, L500.4050 ####[facility] [address] [place], [address] Nucleated RBC (Bld) [#/Vol] 0 10*3/uL Normal 0-5 [facility] Comment on above: Performed By: #### L 100.0100, L500.4050 ####[facility] [address] [place], [address] Platelet mean volume (Bld) [Entitic vol] 11.2 fL Normal 6.2-12.0 [facility] Comment on above: Performed By: #### L 100.0100, L500.4050 ####[facility] [address] [place], [address] Platelets (Bld) [#/Vol] 206 10*3/uL Normal 150-450 [facility] Comment on above: Performed By: #### L 100.0100, L500.4050 ####[facility] [address] [place], [address] RBC (Bld) [#/Vol] 3.97 10*6/uL Low 4.2-5.4 [facility] Comment on above: Performed By: #### L 100.0100, L500.4050 ####[facility] [address] [place], [address] RDW SD 48.4 fl High 35.1-43.9 [facility] Comment on above: Performed By: #### L 100.0100, L500.4050 ####[facility] [address] [place], [address] WBC (Bld) [#/Vol] 4.6 10*3/uL Normal 4.4-11.0 [facility] Comment on above: Performed By: #### L 100.0100, L500.4050 ####[facility] [address] [place], [address] Carbon dioxide, total [Moles /volume] in Central venous bloodOrdered By: Dina Ferrer on 03-27-2025 CO2 [Moles/Vol] 24.9 mmol/L 21.0-32.0 [facility] Chloride assayOrdered By: Ba Ferrer on 03-27-2025 Chloride [Moles/Vol] 102 mmol/L 98-108 [facility] Comprehensive Metabolic Prof ilon 03-27-2025 Albumin [Mass/Vol] 4.5 g/dL Normal 3.4-4.8 [facility] Comment on above: Performed By: #### L 100.0100, L500.4050 ####[facility] [address] [place], [address] Albumin/Globulin [Mass ratio] 1.8 {ratio} Normal 0.9-2.4 [facility] Comment on above: Performed By: #### L 100.0100, L500.4050 ####[facility] [address] [place], [address] ALK PHOS 97 U/L Normal 35-104 [facility] Comment on above: Performed By: #### L 100.0100, L500.4050 ####[facility] [address] [place], [address] ALT [Catalytic activity/Vol] 13 U/L Normal <=34 [facility] Comment on above: Performed By: #### L 100.0100, L500.4050 ####[facility] [address] [place], [address] AST [Catalytic activity/Vol] 29 U/L Normal <=31 [facility] Comment on above: Performed By: #### L 100.0100, L500.4050 ####[facility] [address] [place], [address] Bilirubin [Mass/Vol] 0.72 mg/dL Normal 0.00-1.30 [facility] Comment on above: Performed By: #### L 100.0100, L500.4050 ####[facility] [address] [place], [address] BUN/CRE 23.9 RATIO High 10-20 [facility] Comment on above: Performed By: #### L 100.0100, L500.4050 ####[facility] [address] [place], [address] Calcium [Mass/Vol] 9.5 mg/dL Normal 7.6-11.0 [facility] Comment on above: Performed By: #### L 100.0100, L500.4050 ####[facility] [address] [place], [address] Chloride [Moles/Vol] 102 mmol/L Normal 98-108 [facility] Comment on above: Performed By: #### L 100.0100, L500.4050 ####[facility] [address] [place], [address] CO2 [Moles/Vol] 24.9 mmol/L Normal 21.0-32.0 [facility] Comment on above: Performed By: #### L 100.0100, L500.4050 ####[facility] [address] [place], [address] Creatinine [Mass/Vol] 0.77 mg/dL Normal 0.70-1.20 [facility] Comment on above: Performed By: #### L 100.0100, L500.4050 ####[facility] [address] [place], [address] GAP 13 Normal 5-15 [facility] Comment on above: Performed By: #### L 100.0100, L500.4050 ####[facility] [address] [place], [address] GFR/1.73 sq M.predicted among non-blacks MDRD (S/P/Bld) [Vol rate/Area] 83 mL/min/{1.73_m2} Normal >60 [facility] Comment on above: Result Comment: mL/m in/1.73m2 CKD-EPI Creatinine Equation (2020) Performed By: #### L 100.0100, L500.4050 ####[facility] [address] [place], [address] Globulin (S) [Mass/Vol] 2.5 g/dL Normal 2.2-4.2 [facility] Comment on above: Performed By: #### L 100.0100, L500.4050 ####[facility] [address] [place], [address] Glucose [Mass/Vol] 164 mg/dL High 70-99 [facility] Comment on above: Performed By: #### L 100.0100, L500.4050 ####[facility] [address] [place], [address] Potassium [Moles/Vol] 3.9 mmol/L Normal 3.3-5.1 [facility] Comment on above: Performed By: #### L 100.0100, L500.4050 ####[facility] [address] [place], [address] Sodium [Moles/Vol] 139 mmol/L Normal 133-145 [facility] Comment on above: Performed By: #### L 100.0100, L500.4050 ####[facility] [address] [place], [address] T PROT 7.0 g/dL Normal 5.9-8.4 [facility] Comment on above: Performed By: #### L 100.0100, L500.4050 ####[facility] [address] [place], [address] Urea nitrogen [Mass/Vol] 19 mg/dL Normal 4-19 [facility] Comment on above: Performed By: #### L 100.0100, L500.4050 ####[facility] [address] [place], [address] Eosinophil percentageOrdered By: Dina Ferrer on 03-27-2025 Eosinophils/100 WBC (Bld) 1.7 % 0-5 [facility] Erythrocyte distribution wid th ratioOrdered By: Dina Ferrer on 03-27-2025 Erythrocyte distribution width (RBC) [Ratio] 12.6 % 11.6-14.6 [facility] Erythrocyte distribution wid th standard deviationOrdered By: Dina Ferrer on 03-27-2025 Erythrocyte distribution width (RBC) [Ratio] 48.4 fl High 35.1-43.9 [facility] Glomerular filtration rate ( GFR) estimation/1.73 sq m using serum, plasma, or whole bOrdered By: Dina Ferrer on 03-27-2025 GFR/1.73 sq M.predicted among non-blacks MDRD (S/P/Bld) [Vol rate/Area] 83 mL/min/{1.73_m2} >60 [facility] Comment on above: mL/min/1.73m2 CKD-EP I Creatinine Equation (2020) Hematocrit Auto (Bld) [Volum e fraction]Ordered By: Dina Ferrer on 03-27-2025 Hematocrit (Bld) [Volume fraction] 41.4 % 37-47 [facility] Hemoglobin measurementOrdere d By: Dina Ferrer on 03-27-2025 Hemoglobin (Bld) [Mass/Vol] 13.9 g/dL 12.0-15.0 [facility] Immature granulocytes/100 WB C Auto (Bld)Ordered By: Dina Ferrer on 03-27-2025 Immature granulocytes/100 WBC (Bld) 0.400 % 0.0-0.9 [facility] Comment on above: IG% - Immature Granu locytes (promyelocytes, myelocytes and metamyelocytes) > 1% indicates that a LEFT SHIFT is Present. Laboratory - Chemistry and C hemistry - challengeOrdered By: Dina Ferrer on 03-27-2025 AST [Catalytic activity/Vol] 29 U/L <32 [facility] MCV (mean corpuscular volume ) determinationOrdered By: Dina Ferrer on 03-27-2025 MCV (RBC) [Entitic vol] 104.3 fL High 81-99 [facility] Mean corpuscular hemoglobin (MCH) determinationOrdered By: Dina Ferrer on 03-27-2025 MCH (RBC) [Entitic mass] 35.0 pg High 27.0-32.0 [facility] Mean corpuscular hemoglobin concentration (MCHC) determinationOrdered By: Dina Ferrer on 03-27-2025 MCHC (RBC) [Mass/Vol] 33.6 g/dL 32-36 [facility] Mean platelet volume determi nationOrdered By: Dina Ferrer on 03-27-2025 Platelet mean volume (Bld) [Entitic vol] 11.2 fL 6.2-12.0 [facility] Monocyte percentageOrdered B y: Dina Ferrer on 03-27-2025 Monocytes/100 WBC (Bld) 6.3 % 0-10 [facility] Neutrophil percentageOrdered By: Dina Ferrer on 03-27-2025 Neutrophils/100 WBC (Bld) 65.3 % 47-70 [facility] Nucleated red blood cell per centageOrdered By: Dina Ferrer on 03-27-2025 Nucleated RBC/100 WBC (Bld) [Ratio] 0 % 0-5 [facility] Platelet countOrdered By: Ba Ferrer on 03-27-2025 Platelets (Bld) [#/Vol] 206 10*3/uL 150-450 [facility] Potassium measurement (mass/ volume)Ordered By: Dina Ferrer on 03-27-2025 Potassium (Unsp spec) [Mass/Vol] 3.9 mmol/L 3.3-5.1 [facility] RBC Auto (Bld) [#/Vol]Ordere d By: Dina Ferrer on 03-27-2025 RBC (Bld) [#/Vol] 3.97 10*6/uL Low 4.2-5.4 [facility] Serum creatinine measurement (mass/volume)Ordered By: Dina Ferrer on 03-27-2025 Creatinine [Mass/Vol] 0.77 mg/dL 0.70-1.20 [facility] Serum globulin measurementOr dered By: Dina Ferrer on 03-27-2025 Globulin (S) [Mass/Vol] 2.5 g/dL 2.2-4.2 [facility] Serum glucose measurement (m ass/volume)Ordered By: Dina Ferrer on 03-27-2025 Glucose [Mass/Vol] 164 mg/dL High 70-99 [facility] Serum or plasma alanine abraham otransferase (ALT) measurementOrdered By: Dina Ferrer on 03-27-2025 ALT [Catalytic activity/Vol] 13 U/L <35 [facility] [facility] Serum or plasma albumin shira urement (mass/volume)Ordered By: Dina Ferrer on 03-27-2025 Albumin [Mass/Vol] 4.5 g/dL 3.4-4.8 [facility] Serum or plasma albumin/glob ulin mass ratioOrdered By: Dina Ferrer on 03-27-2025 Albumin/Globulin [Mass ratio] 1.8 {ratio} 0.9-2.4 [facility] Serum or plasma alkaline ramone sphatase measurementOrdered By: Dina Ferrer on 03-27-2025 ALP [Catalytic activity/Vol] 97 U/L 35-104 [facility] Serum or plasma calcium shira urement (mass/volume)Ordered By: Dina Ferrer on 03-27-2025 Calcium [Mass/Vol] 9.5 mg/dL 7.6-11.0 [facility] Serum or plasma urea nitroge n measurement (mass/volume)Ordered By: Dina Ferrer on 03-27-2025 Urea nitrogen [Mass/Vol] 19 mg/dL 4-19 [facility] Sodium levelOrdered By: Shaila Ferrer on 03-27-2025 Sodium [Moles/Vol] 139 mmol/L 133-145 [facility] Total proteinOrdered By: Issac Ferrer on 03-27-2025 Protein [Mass/Vol] 7.0 g/dL 5.9-8.4 [facility] White blood cell (WBC) count Ordered By: Dina Ferrer on 03-27-2025 WBC (Bld) [#/Vol] 4.6 10*3/uL 4.4-11.0 [facility] Gastroenterology Visit Repor ton 03-09-2025 Gastroenterology Visit Report [facility] Gastroenterology [address] [place] [address] OFFICE VISIT Date of Service: 03/09/25 MR#: [id number] Acct: [id number] Name: ELISHA GODFREY Rep #: [id number] : 1955 Provider: ANY matta Age/Sex: 69/F Location: [facility] Status: Signed Intake Vital Signs 06/02/16 07:59 [...] is associ (more content not included)... Normal [facility] Colonoscopy Reporton 025 Colonoscopy Report [facility] Medical Records Department [address] [place] [address] Colonoscopy Report MR#: [id number] Acct: [id number] Name: ELISHA GODFREY Rep #: [id number] : 1955 69 From: Darrin Lozoya DO PCP: Dr. Kade Fry MD [place] [facility] Name: Elisha Godfrey Procedure Date: 02/12/2025 [...] to therapy. Procedure Code(s): --- Professional --- 39960, Colonoscopy, flexible; diagnostic, including collection of specimen(s) by brushing or washing, when performed (separate procedure) CPT copyright 2021 [employer]. All rights reserved. The codes documented in this report are preliminary and upon veterinary receptionist review may be revised to meet current compliance requirements. Darrin Lozoya DO 02/12/2025 11:10:50 AM This report has been signed electronically. Number of Addenda: 0 Note Initiated On: 02/12/2025 10:21 AM 02/12/25 1111 Date Darrin Lozanoignkaty Signature: Date (if indicated) CC: Dr. Kade Fry MD; Darrin Lozoya DO Date Dictated: 02/12/25 1021 Date Transcribed: Senior Process Control Tech: ABUNDIO Signed Normal [facility] EGD Reporton 02-12-2025 EGD Report [facility] Medical Records Department [address] [place] [address] EGD Report MR#: [id number] Acct: [id number] Name: ELISHA GODFREY Rep #: [id number] : 1955 69 From: Darrin Lozoya DO PCP: Dr. Kade Fry MD Status[place] [facility] [place] Name: Elisha Godfrey Procedure Date: 02/12/2025 [...] pathology results. Procedure Code(s): --- Professional --- 75602, Esophagogastroduodenoscopy, flexible, transoral; with biopsy, single or multiple CPT copyright 2021 [employer]. All rights reserved. The codes documented in this report are preliminary and upon veterinary receptionist review may be revised to meet current compliance requirements. Darrin Lozoya DO 02/12/2025 11:05:56 AM This report has been signed electronically. Number of Addenda: 0 Note Initiated On: 02/12/2025 10:04 AM 02/12/25 1106 Date Darrin Sauceda Signature: Date (if indicated) CC: Dr. Kade Fry MD; Darrin Lozoya DO Date Dictated: 02/12/25 1004 Date Transcribed: Senior Process Control Tech: ABUNDIO Signed Normal [facility] Immunohistochemical Stainson 02-12-2025 Immunohistochemical Stains Patient Age/Sex Location Account Attending Physician ELISHA GODFREY 69/F EN [id number] Darrin Lozoya DO Specimen: [id number] Received: 02/12/25-1110 Status: MARLENI Rowley Num: [id number] Spec Type: COLON BX Subm Dr: Darrin [...] developed and their performance characteristics determined by [facility] Laboratory. They may not have been cleared [...] totally submitted in one cassette. Jose 02/12/2025 CPT:23586t7,55805 Patient Age/Sex Location Account Attending Physician ELISHA GODFREY 69/[place] EN [id number] Darrin Lozoya, DO Signed (signature on file) Dr. Georgette Clement MD 02/28/25 1435 Normal [facility] Comment on above: Performed By: #### [facility] ####[facility] [address] [place], [place], [address] MR/POSTOP.[facility] 02-12-2025 MR/POSTOP.[facility] Medical Records Department [address] [place] [address] Anesthesia Postop Eval I 02/12/25 1108 MR#: [id number] Acct: [id number] Name: ELISHA GODFREY Rep #: [id number] : 1955 69 From: Javier Cat PCP: Dr. Kade Fry MD Status:REG SDC Y Race: C Location: [place] [address] Anesthesia: Postop Eval I Current Vital Signs [...] Javier Ruelas Signature: Date CC: Signed Normal [facility] MR/UTKHSMUU2mx 02-12-2025 MR/POSTOPAN2 [facility] Medical Records Department [address] [facility] [place] [address] Anesthesia Postop Eval II 02/12/25 1149 MR#: [id number] Acct: [id number] Name: ELISHA GODFREY Rep #: [id number] : 1955 69 From: Jimmy Gillis MD PCP: Dr. Kade Fry MD Status:[facility] [place] Race: C Location: [place] [address] Anesthesia Postop Eval I Sum Postop Eval [...] Anesthesia Complication: No 02/12/25 1149 Date Jimmy Ruelas Signature: Date CC: Signed Normal [facility] Absolute lymphocyte countOrd ered By: Dinadahiana Ferrer on 12-26-2024 Lymphocytes Auto (Unsp spec) [#/Vol] 1.02 10*3/uL 0.83-4.51 [facility] Absolute neutrophil countOrd ered By: [facility] Nabil on 12-26-2024 Neutrophils (Bld) [#/Vol] 2.0 10*3/uL 2.0-7.7 [facility] Anion gap in Serum or Plasma Ordered By: Dina Ferrer on 12-26-2024 Anion gap [Moles/Vol] 10 mmol/L 5-15 [facility] Automated lymphocyte count a s percentage of total leukocytesOrdered By: Dina Ferrer on 12-26-2024 Lymphocytes/100 WBC Auto (Unsp spec) 29.9 % 19-41 [facility] BUN/creatinine ratioOrdered By: [facility] Nabil on 12-26-2024 Urea nitrogen/Creatinine [Mass ratio] 22.8 mg/mg High 10-20 [facility] Basophil percentageOrdered B y: Dina Ferrer on 12-26-2024 Basophils/100 WBC (Bld) 0.6 % 0-1 [facility] Bilirubin, totalOrdered By: Dinadahiana Ferrer on 12-26-2024 Bilirubin [Mass/Vol] 0.68 mg/dL 0.00-1.30 [facility] CBC W/Diff, Automatedon Absolute Lymph 1.02 X10 3/uL Normal 0.83-4.51 [facility] Comment on above: Performed By: #### L 100.0100, L500.4050 ####[facility] [address] [place], [address] Absolute Neut 2.0 X10 3/uL Normal 2.0-7.7 [facility] Comment on above: Performed By: #### L 100.0100, L500.4050 ####[facility] [address] [place], [address] Basophils/100 WBC (Bld) 0.6 % Normal 0-1 [facility] Comment on above: Performed By: #### L 100.0100, L500.4050 ####[facility] [address] [place], [address] Eosinophils/100 WBC (Bld) 3.2 % Normal 0-5 [facility] Comment on above: Performed By: #### L 100.0100, L500.4050 ####[facility] [address] [place], [address] Erythrocyte distribution width (RBC) [Ratio] 12.7 % Normal 11.6-14.6 [facility] Comment on above: Performed By: #### L 100.0100, L500.4050 ####[facility] [address] [place], [address] Hematocrit (Bld) [Volume fraction] 38.7 % Normal 37-47 [facility] Comment on above: Performed By: #### L 100.0100, L500.4050 ####[facility] [address] [place], [address] Hemoglobin (Bld) [Mass/Vol] 13.2 g/dL Normal 12.0-15.0 [facility] Comment on above: Performed By: #### L 100.0100, L500.4050 ####[facility] [address] [place], [address] IG% 0.300 Normal 0.0-0.9 [facility] Comment on above: Result Comment: IG% - Immature Granulocytes (promyelocytes, myelocytes and metamyelocytes) > 1% indicates that a LEFT SHIFT is Present. Performed By: #### L 100.0100, L500.4050 ####[facility] [address] [place], [address] Lymphocytes/100 WBC (Bld) 29.9 % Normal 19-41 [facility] Comment on above: Performed By: #### L 100.0100, L500.4050 ####[facility] [address] [place], [address] MCH (RBC) [Entitic mass] 35.4 pg High 27.0-32.0 [facility] Comment on above: Performed By: #### L 100.0100, L500.4050 ####[facility] [address] [place], [address] MCHC (RBC) [Mass/Vol] 34.1 g/dL Normal 32-36 [facility] Comment on above: Performed By: #### L 100.0100, L500.4050 ####[facility] [address] [place], [address] MCV (RBC) [Entitic vol] 103.8 fL High 81-99 [facility] Comment on above: Performed By: #### L 100.0100, L500.4050 ####[facility] [address] [place], [address] Monocytes/100 WBC (Bld) 8.2 % Normal 0-10 [facility] Comment on above: Performed By: #### L 100.0100, L500.4050 ####[facility] [address] [place], [address] Neutrophils/100 WBC (Bld) 57.8 % Normal 47-70 [facility] Comment on above: Performed By: #### L 100.0100, L500.4050 ####[facility] [address] [place], [address] Nucleated RBC (Bld) [#/Vol] 0 10*3/uL Normal 0-5 [facility] Comment on above: Performed By: #### L 100.0100, L500.4050 ####[facility] [address] [place], [address] Platelet mean volume (Bld) [Entitic vol] 10.2 fL Normal 6.2-12.0 [facility] Comment on above: Performed By: #### L 100.0100, L500.4050 ####[facility] [address] [place], [address] Platelets (Bld) [#/Vol] 198 10*3/uL Normal 150-450 [facility] Comment on above: Performed By: #### L 100.0100, L500.4050 ####[facility] [address] [place], [address] RBC (Bld) [#/Vol] 3.73 10*6/uL Low 4.2-5.4 [facility] Comment on above: Performed By: #### L 100.0100, L500.4050 ####[facility] [address] [place], [address] RDW SD 48.5 fl High 35.1-43.9 [facility] Comment on above: Performed By: #### L 100.0100, L500.4050 ####[facility] [address] [place], [address] WBC (Bld) [#/Vol] 3.4 10*3/uL Low 4.4-11.0 [facility] Comment on above: Performed By: #### L 100.0100, L500.4050 ####[facility] [address] [place], [address] Carbon dioxide, total [Moles /volume] in Central venous bloodOrdered By: Dina Ferrer on 12-26-2024 CO2 [Moles/Vol] 27.8 mmol/L 21.0-32.0 [facility] Chloride assayOrdered By: Ba Ferrer on 12-26-2024 Chloride [Moles/Vol] 103 mmol/L 98-108 [facility] Comprehensive Metabolic Prof ilon 12-26-2024 Albumin [Mass/Vol] 4.3 g/dL Normal 3.4-4.8 [facility] Comment on above: Performed By: #### L 100.0100, L500.4050 ####[facility] [address] [place], [address] Albumin/Globulin [Mass ratio] 1.7 {ratio} Normal 0.9-2.4 [facility] Comment on above: Performed By: #### L 100.0100, L500.4050 ####[facility] [address] [place], [address] ALK PHOS 89 U/L Normal 35-104 [facility] Comment on above: Performed By: #### L 100.0100, L500.4050 ####[facility] [address] [place], [address] ALT [Catalytic activity/Vol] 10 U/L Normal <=34 [facility] Comment on above: Performed By: #### L 100.0100, L500.4050 ####[facility] [address] [place], [address] AST [Catalytic activity/Vol] 25 U/L Normal <=31 [facility] Comment on above: Performed By: #### L 100.0100, L500.4050 ####[facility] [address] [place], [address] Bilirubin [Mass/Vol] 0.68 mg/dL Normal 0.00-1.30 [facility] Comment on above: Performed By: #### L 100.0100, L500.4050 ####[facility] [address] [place], [address] BUN/CRE 22.8 RATIO High 10-20 [facility] Comment on above: Performed By: #### L 100.0100, L500.4050 ####[facility] [address] [place], [address] Calcium [Mass/Vol] 9.6 mg/dL Normal 7.6-11.0 [facility] Comment on above: Performed By: #### L 100.0100, L500.4050 ####[facility] [address] [place], [address] Chloride [Moles/Vol] 103 mmol/L Normal 98-108 [facility] Comment on above: Performed By: #### L 100.0100, L500.4050 ####[facility] [address] [place], [address] CO2 [Moles/Vol] 27.8 mmol/L Normal 21.0-32.0 [facility] Comment on above: Performed By: #### L 100.0100, L500.4050 ####[facility] [address] [place], [address] Creatinine [Mass/Vol] 0.80 mg/dL Normal 0.70-1.20 [facility] Comment on above: Performed By: #### L 100.0100, L500.4050 ####[facility] [address] [place], [address] GAP 10 Normal 5-15 [facility] Comment on above: Performed By: #### L 100.0100, L500.4050 ####[facility] [address] [place], [address] GFR/1.73 sq M.predicted among non-blacks MDRD (S/P/Bld) [Vol rate/Area] 79 mL/min/{1.73_m2} Normal >60 [facility] Comment on above: Result Comment: mL/m in/1.73m2 CKD-EPI Creatinine Equation (2020) Performed By: #### L 100.0100, L500.4050 ####[facility] [address] [place], [address] Globulin (S) [Mass/Vol] 2.6 g/dL Normal 2.2-4.2 [facility] Comment on above: Performed By: #### L 100.0100, L500.4050 ####[facility] [address] [place], [address] Glucose [Mass/Vol] 110 mg/dL High 70-99 [facility] Comment on above: Performed By: #### L 100.0100, L500.4050 ####[facility] [address] [place], [address] Potassium [Moles/Vol] 4.3 mmol/L Normal 3.3-5.1 [facility] Comment on above: Performed By: #### L 100.0100, L500.4050 ####[facility] [address] [place], [address] Sodium [Moles/Vol] 141 mmol/L Normal 133-145 [facility] Comment on above: Performed By: #### L 100.0100, L500.4050 ####[facility] [address] [place], [address] T PROT 6.9 g/dL Normal 5.9-8.4 [facility] Comment on above: Performed By: #### L 100.0100, L500.4050 ####[facility] [address] [place], [address] Urea nitrogen [Mass/Vol] 18 mg/dL Normal 4-19 [facility] Comment on above: Performed By: #### L 100.0100, L500.4050 ####[facility] [address] [place], [address] Eosinophil percentageOrdered By: Dina Ferrer on 12-26-2024 Eosinophils/100 WBC (Bld) 3.2 % 0-5 [facility] Erythrocyte distribution wid th ratioOrdered By: Dina Ferrer on 12-26-2024 Erythrocyte distribution width (RBC) [Ratio] 12.7 % 11.6-14.6 [facility] Erythrocyte distribution wid th standard deviationOrdered By: Dina Ferrer on 12-26-2024 Erythrocyte distribution width (RBC) [Ratio] 48.5 fl High 35.1-43.9 [facility] Glomerular filtration rate ( GFR) estimation/1.73 sq m using serum, plasma, or whole bOrdered By: Dina Ferrer on 12-26-2024 GFR/1.73 sq M.predicted among non-blacks MDRD (S/P/Bld) [Vol rate/Area] 79 mL/min/{1.73_m2} >60 [facility] Comment on above: mL/min/1.73m2 CKD-EP I Creatinine Equation (2020) Hematocrit Auto (Bld) [Volum e fraction]Ordered By: Dina Ferrer on 12-26-2024 Hematocrit (Bld) [Volume fraction] 38.7 % 37-47 [facility] Hemoglobin measurementOrdere d By: Dina Ferrer on 12-26-2024 Hemoglobin (Bld) [Mass/Vol] 13.2 g/dL 12.0-15.0 [facility] Immature granulocytes/100 WB C Auto (Bld)Ordered By: Dina Ferrer on 12-26-2024 Immature granulocytes/100 WBC (Bld) 0.300 % 0.0-0.9 [facility] Comment on above: IG% - Immature Granu locytes (promyelocytes, myelocytes and metamyelocytes) > 1% indicates that a LEFT SHIFT is Present. Laboratory - Chemistry and C hemistry - challengeOrdered By: Dina Ferrer on 12-26-2024 AST [Catalytic activity/Vol] 25 U/L <32 [facility] MCV (mean corpuscular volume ) determinationOrdered By: Dina Ferrer on 12-26-2024 MCV (RBC) [Entitic vol] 103.8 fL High 81-99 [facility] Mean corpuscular hemoglobin (MCH) determinationOrdered By: Dina Ferrer on 12-26-2024 MCH (RBC) [Entitic mass] 35.4 pg High 27.0-32.0 [facility] Mean corpuscular hemoglobin concentration (MCHC) determinationOrdered By: Dina Ferrer on 12-26-2024 MCHC (RBC) [Mass/Vol] 34.1 g/dL 32-36 [facility] Mean platelet volume determi nationOrdered By: Dina Ferrer on 12-26-2024 Platelet mean volume (Bld) [Entitic vol] 10.2 fL 6.2-12.0 [facility] Monocyte percentageOrdered B y: Dina Ferrer on 12-26-2024 Monocytes/100 WBC (Bld) 8.2 % 0-10 [facility] Neutrophil percentageOrdered By: Dina Ferrer on 12-26-2024 Neutrophils/100 WBC (Bld) 57.8 % 47-70 [facility] Nucleated red blood cell per centageOrdered By: Dina Ferrer on 12-26-2024 Nucleated RBC/100 WBC (Bld) [Ratio] 0 % 0-5 [facility] Platelet countOrdered By: Ba Ferrer on 12-26-2024 Platelets (Bld) [#/Vol] 198 10*3/uL 150-450 [facility] Potassium measurement (mass/ volume)Ordered By: Dina Ferrer on 12-26-2024 Potassium (Unsp spec) [Mass/Vol] 4.3 mmol/L 3.3-5.1 [facility] RBC Auto (Bld) [#/Vol]Ordere d By: Dina Ferrer on 12-26-2024 RBC (Bld) [#/Vol] 3.73 10*6/uL Low 4.2-5.4 [facility] Serum creatinine measurement (mass/volume)Ordered By: Dina Ferrer on 12-26-2024 Creatinine [Mass/Vol] 0.80 mg/dL 0.70-1.20 [facility] Serum globulin measurementOr dered By: Dina Ferrer on 12-26-2024 Globulin (S) [Mass/Vol] 2.6 g/dL 2.2-4.2 [facility] Serum glucose measurement (m ass/volume)Ordered By: Dina Ferrer on 12-26-2024 Glucose [Mass/Vol] 110 mg/dL High 70-99 [facility] Serum or plasma alanine abraham otransferase (ALT) measurementOrdered By: Dina Ferrer on 12-26-2024 ALT [Catalytic activity/Vol] 10 U/L <35 [facility] Serum or plasma albumin shira urement (mass/volume)Ordered By: Dina Ferrer on 12-26-2024 Albumin [Mass/Vol] 4.3 g/dL 3.4-4.8 [facility] Serum or plasma albumin/glob ulin mass ratioOrdered By: Dina Ferrer on 12-26-2024 Albumin/Globulin [Mass ratio] 1.7 {ratio} 0.9-2.4 [facility] Serum or plasma alkaline ramone sphatase measurementOrdered By: Dina Ferrer on 12-26-2024 ALP [Catalytic activity/Vol] 89 U/L 35-104 [facility] Serum or plasma calcium shira urement (mass/volume)Ordered By: Dina Ferrer on 12-26-2024 Calcium [Mass/Vol] 9.6 mg/dL 7.6-11.0 [facility] Serum or plasma urea nitroge n measurement (mass/volume)Ordered By: Dina Ferrer on 12-26-2024 Urea nitrogen [Mass/Vol] 18 mg/dL 4-19 [facility] Sodium levelOrdered By: Shaila Ferrer on 12-26-2024 Sodium [Moles/Vol] 141 mmol/L 133-145 [facility] Total proteinOrdered By: Issac Ferrer on 12-26-2024 Protein [Mass/Vol] 6.9 g/dL 5.9-8.4 [facility] White blood cell (WBC) count Ordered By: Dina Ferrer on 12-26-2024 WBC (Bld) [#/Vol] 3.4 10*3/uL Low 4.4-11.0 [facility] Gastric Emptying Studyon Gastric Emptying Study [facility] Imaging Services [address] [place] [address] Gastric Emptying Study MR#: [id number] Acct: [id number] Name: ELISHA GODFREY Rep #: [id number] : 1955 F 69 From: Sammy Hercules MD PCP: Dr. Kade Fry MD Status: DEP CLI Study: Gastric Emptying Study Date of Exam: 12/18/24 Exam# [id number] Ordering Dr: Darrin Lozoya DO ADDENDUM by Dr. Chetan Pierre MD on 02/20/25 at 0118 1 hr gastric with oatmeal Reading Location: [id number] 02/20/25 0119 Date cc: Dr. Kade Fry [...] geometric mean was used to calculate a tplg-gbylitfh-ozuds. Fasting Blood Glucose (if diabetic): mg/dL. Medications taken in the past 24 hours that may affect gastric emptying: None RADIOPHARMACEUTICAL: 1 mCi of technetium 99 M sulfur colloid FINDINGS: Percent activity remaining in stomach: 1 hour 35 % (normal 37-90%) 2 hours: % (normal 30-60%) 4 hours: % (normal 0-10%) NM/Gastric Emptying Study IMPRESSION: Normal gastric emptying Reading Location: [facility] CC: Dr. Kade Fry MD; Darrin Lozoya DO Senior Process Control Tech: Signed Normal [facility] DBT Breast - right diagnosti c for [...] Azra De M.D. Electronically signed on: 12/05/2024 Senior Process Control Tech: RUI Transcrimoe Date/Time: Dec 05 2024 1:03P Dictated by: AZRA DE MD This examination was interpreted and the report reviewed and electronically signed by: AZRA DE MD on Dec 05 2024 1:56PM [facility] DIVISION OF RADIOLOGY * * *Final Report* * * DATE OF EXAM: Dec 05 2024 1:21PM [facility] 0629 - LEIGH RAMON W IRISH RT / PROCEDURE REASON: Abnormal mammogram * * * * Physician Interpretation * * * * RESULT: [place] [address] #[id number] - LEIGH DIAG W IRISH RT #[id number] - [facility] BREAST LTD RT HISTORY: 69 year-old patient [...] of mammographic concern. DIVISION OF RADIOLOGY Provider, [facility] - 12/05/2024 * * *Final Report* * * DATE OF EXAM: Dec 05 2024 1:21PM W 0629 - LEIGH DIAG W IRISH RT / PROCEDURE REASON: Abnormal mammogram * * * * Physician Interpretation * * * * RESULT: [place] [address] #[id number] - [facility] DIAG W IRISH RT #[id number] - [facility] BREAST LTD RT HISTORY: 69 year-old patient [...] Azra De M.D. Electronically signed on: 12/05/2024 Senior Process Control Tech: RUI Transcribe Date/Time: Dec 05 2024 1:03P Dictated by: AZRA DE MD This examination was interpreted and the report reviewed and electronically signed by: AZRA DE MD on Dec 05 2024 1:56PM EST [facility] LEIGH DIAG W IRISH RTon 025 LEIGH DIAG W IRISH RT * * *Final Report* * * DATE OF EXAM: Dec 05 2024 1:21PM W 0629 - LEIGH DIAG W IRISH RT / PROCEDURE REASON: Abnormal mammogram * * * * Physician Interpretation * * * * RESULT: [place] [address] #[id number] - LEIGH DIAG W IRISH RT #[id number] - [facility] US BREAST LTD RT HISTORY: [...] Azra De M.D. Electronically signed on: 12/05/2024 Senior Process Control Tech: RUI Transcribe Date/Time: Dec 05 2024 1:03P Dictated by: AZRA DE MD This examination was interpreted and the report reviewed and electronically signed by: AZRA DE MD on Dec 05 2024 1:56PM EST [id number] Normal [facility] Medefy BREAST Viewpost RTon 12-05 [facility] Medefy BREAST Viewpost RT * * *Final Report* * * DATE OF EXAM: Dec 05 2024 1:48PM WRU 0594 - [facility] Medefy BREAST Viewpost RT / PROCEDURE REASON: Abnormal mammogram * * * * Physician Interpretation * * * * [place] [address] #[id number] - [facility] RAMON W IRISH RT #[id number] - [facility] Medefy BREAST Viewpost RT HISTORY: 69 year-old patient seen for [...] Azra De M.D. Electronically signed on: 12/05/2024 Senior Process Control Tech: RUI Transcribe Date/Time: Dec 05 2024 1:28P Dictated by : AZRA DE MD This examination was interpreted and the report reviewed and electronically signed by: AZRA DE MD on Dec 05 2024 1:56PM EST [id number] Normal [facility] No Panel InformationOrdered By: Ccf Provider on 12-05-2024 [facility] No Panel Informationon 12-05 Radiology Study observation (narrative) [facility] [place] US Breast - right limitedon 12-05-2024 IMPRESSION: [...] Azra De M.D. Electronically signed on: 12/05/2024 Senior Process Control Tech: RUI Transcribe Date/Time: Dec 05 2024 1:28P Dictated by : AZRA DE MD This examination was interpreted and the report reviewed and electronically signed by: AZRA DE MD on Dec 05 2024 1:56PM [facility] DIVISION OF RADIOLOGY * * *Final Report* * * DATE OF EXAM: Dec 05 2024 1:48PM [facility] 0594 - [facility] Medefy BREAST Viewpost RT / PROCEDURE REASON: Abnormal mammogram * * * * Physician Interpretation * * * * [place] [address] #[id number] - LEIGH RAMON Lange IRISH RT #[id number] - [facility] Medefy BREAST Viewpost RT HISTORY: 69 year-old patient seen for [...] of mammographic concern. DIVISION OF RADIOLOGY Provider, Princess [facility] - 12/05/2024 * * *Final Report* * * DATE OF EXAM: Dec 05 2024 1:48PM U 0594 - [facility] Medefy BREAST LTD RT / PROCEDURE REASON: Abnormal mammogram * * * * Physician Interpretation * * * * [place] [address] #[id number] - [facility] DIAG W IRISH RT #[id number] - [facility] Medefy BREAST LTD RT HISTORY: 69 year-old patient [...] Azra De M.D. Electronically signed on: 12/05/2024 Senior Process Control Tech: RUI Transcribe Date/Time: Dec 05 2024 1:28P Dictated by : AZRA DE MD This examination was interpreted and the report reviewed and electronically signed by: AZRA DE MD on Dec 05 2024 1:56PM EST [facility] Anti-Parietal Cell AB, Non 11-30-2024 ANTIPARIET CELL 1.4 Units Normal 0.0-20.0 [facility] Comment on above: Result Comment: Nega tive 0.0 - 20.0 Equivocal 20.1 - 24.9 Positive >24.9 Parietal Cell Antibodies are found in 90% of patients with pernicious anemia and 30% of first degree relatives with pernicious anemia. Performed By: #### L 3410.0900, L501.9520, L3100.3425, L101.9900, L3410.2350, L3410.1000, L501.6710, L503.0106, L504.2610, L3300.1800 ####[facility] [address] [place], [place], [phone](892) Celiac AB,Comprehensiveon ANTIGLIADIN IGA 8 units Normal 0-19 [facility] Comment on above: Result Comment: Nega tive 0 - 19 Weak Positive 20 - 30 Moderate to Strong Positive >30 Performed By: #### L 3410.0900, L501.9520, L3100.3425, L101.9900, L3410.2350, L3410.1000, L501.6710, L503.0106, L504.2610, L3300.1800 ####[facility] [address] [place], [place], [phone] ANTIGLIADIN IGG 5 units Normal 0-19 [facility] Comment on above: Result Comment: Nega tive 0 - 19 Weak Positive 20 - 30 Moderate to Strong Positive >30 Performed By: #### L 3410.0900, L501.9520, L3100.3425, L101.9900, L3410.2350, L3410.1000, L501.6710, L503.0106, L504.2610, L3300.1800 ####[facility] [address] [place], [place], [phone](812) ENDOMYSIAL IGA Negative Normal Negative [facility] Comment on above: Performed By: #### L 3410.0900, L501.9520, L3100.3425, L101.9900, L3410.2350, L3410.1000, L501.6710, L503.0106, L504.2610, L3300.1800 ####[facility] [address] [place], [place], [phone]([phone] tTG IGA 3 U/mL Normal 0-3 [facility] Comment on above: Result Comment: Nega tive 0 - 3 Weak Positive 4 - 10 Positive >10 Tissue Transglutaminase (tTG) has been identified as the endomysial antigen. Studies have demonstr- ated that endomysial IgA antibodies have over 99% specificity for gluten sensitive enteropathy. Performed By: #### L 3410.0900, L501.9520, L3100.3425, L101.9900, L3410.2350, L3410.1000, L501.6710, L503.0106, L504.2610, L3300.1800 ####[facility] [address] [place], [address] tTG IGG 4 U/mL Normal 0-5 [facility] Comment on above: Result Comment: Nega tive 0 - 5 Weak Positive 6 - 9 Positive >9 Performed By: #### L 3410.0900, L501.9520, L3100.3425, L101.9900, L3410.2350, L3410.1000, L501.6710, L503.0106, L504.2610, L3300.1800 ####[facility] [address] [place], [address] Gastrin, Serumon 11-30-2024 GASTRIN 665 pg/mL High 0-115 [facility] Comment on above: Result Comment: Siem ens Immulite 2000 Immunochemiluminometric assay (ICMA) Values obtained with different assay methods or kits cannot be used interchangeably. Results cannot be interpreted as absolute evidence of the presence or absence of malignant disease. Performed By: #### L 3410.0900, L501.9520, L3100.3425, L101.9900, L3410.2350, L3410.1000, L501.6710, L503.0106, L504.2610, L3300.1800 ####[facility] [address] [place], [address] DI + Protein Elect, Serumon 11-30-2024 Albumin [Mass/Vol] 4.0 g/dL Normal 2.9-4.4 [facility] Comment on above: Order Comment: N Performed By: #### L 3410.0900, L501.9520, L3100.3425, L101.9900, L3410.2350, L3410.1000, L501.6710, L503.0106, L504.2610, L3300.1800 #### [facility] Laboratory [address] [place], [address] Albumin/Globulin [Mass ratio] 1.4 {ratio} Normal 0.7-1.7 [facility] Comment on above: Order Comment: N Performed By: #### L 3410.0900, L501.9520, L3100.3425, L101.9900, L3410.2350, L3410.1000, L501.6710, L503.0106, L504.2610, L3300.1800 #### [facility] Laboratory [address] [place], [address] YNIYN-7-PFKF 0.3 g/dL Normal 0.0-0.4 [facility] Comment on above: Order Comment: N Performed By: #### L 3410.0900, L501.9520, L3100.3425, L101.9900, L3410.2350, L3410.1000, L501.6710, L503.0106, L504.2610, L3300.1800 #### [facility] Laboratory [address] [place], [address] JRTRC-7-WIWS 0.7 g/dL Normal 0.4-1.0 [facility] Comment on above: Order Comment: N Performed By: #### L 3410.0900, L501.9520, L3100.3425, L101.9900, L3410.2350, L3410.1000, L501.6710, L503.0106, L504.2610, L3300.1800 #### [facility] Laboratory [address] [place], [address] ([phone]) BETA GLOBULIN 0.9 g/dL Normal 0.7-1.3 [facility] Comment on above: Order Comment: N Performed By: #### L 3410.0900, L501.9520, L3100.3425, L101.9900, L3410.2350, L3410.1000, L501.6710, L503.0106, L504.2610, L3300.1800 #### [facility] Laboratory [address] [place], [place], [phone] (909) GAMMA GLOBULIN 1.2 g/dL Normal 0.4-1.8 [facility] Comment on above: Order Comment: N Performed By: #### L 3410.0900, L501.9520, L3100.3425, L101.9900, L3410.2350, L3410.1000, L501.6710, L503.0106, L504.2610, L3300.1800 #### [facility] Laboratory [address] [place], [place], [phone] (780) Globulin (S) [Mass/Vol] 3.0 g/dL Normal 2.2-3.9 [facility] Comment on above: Order Comment: N Performed By: #### L 3410.0900, L501.9520, L3100.3425, L101.9900, L3410.2350, L3410.1000, L501.6710, L503.0106, L504.2610, L3300.1800 #### [facility] Laboratory [address] [place], [address] DI RESULT,S Comment Normal . [facility] Comment on above: Order Comment: N Result Comment: No m onoclonality detected. Performed By: #### L 3410.0900, L501.9520, L3100.3425, L101.9900, L3410.2350, L3410.1000, L501.6710, L503.0106, L504.2610, L3300.1800 #### [facility] Laboratory [address] [place], [address] IMMUNOGLOB A QN 91 mg/dL Normal 87-352 [facility] Comment on above: Order Comment: N Performed By: #### L 3410.0900, L501.9520, L3100.3425, L101.9900, L3410.2350, L3410.1000, L501.6710, L503.0106, L504.2610, L3300.1800 #### [facility] Laboratory [address] [place], [address] IMMUNOGLOB G QN 1053 mg/dL Normal 586-1602 [facility] Comment on above: Order Comment: N Performed By: #### L 3410.0900, L501.9520, L3100.3425, L101.9900, L3410.2350, L3410.1000, L501.6710, L503.0106, L504.2610, L3300.1800 #### [facility] Laboratory [address] [place], [place], [address] IMMUNOGLOB M QN 122 mg/dL Normal 26-217 [facility] Comment on above: Order Comment: N Performed By: #### L 3410.0900, L501.9520, L3100.3425, L101.9900, L3410.2350, L3410.1000, L501.6710, L503.0106, L504.2610, L3300.1800 #### [facility] Laboratory [address] [place], [place], [phone] M-Raffaele Not Observed Normal Not Observed [facility] Comment on above: Order Comment: N Performed By: #### L 3410.0900, L501.9520, L3100.3425, L101.9900, L3410.2350, L3410.1000, L501.6710, L503.0106, L504.2610, L3300.1800 #### [facility] Laboratory [address] [place], [address] NOTE: Comment Normal . [facility] Comment on above: Order Comment: N Result Comment: Prot ein electrophoresis scan will follow via computer, mail, or cone baker machine delivery. Performed By: #### L 3410.0900, L501.9520, L3100.3425, L101.9900, L3410.2350, L3410.1000, L501.6710, L503.0106, L504.2610, L3300.1800 #### [facility] Laboratory [address] [place], [place], [phone] Protein [Mass/Vol] 7.0 g/dL Normal 6.0-8.5 [facility] Comment on above: Order Comment: N Performed By: #### L 3410.0900, L501.9520, L3100.3425, L101.9900, L3410.2350, L3410.1000, L501.6710, L503.0106, L504.2610, L3300.1800 #### [facility] Laboratory [address] [place], [place], [phone] Intrinsic Factor Abon 2024 INTRINS FACT AB 1.0 AU/mL Normal 0.0-1.1 [facility] Comment on above: Result Comment: Perf ormed at: - [facility] [address] [id number] [employer]otive [employer] Manager: Eliazar Posadas PhD, Phone: [phone] Performed at: - [facility] [id number] [employer]otive [employer] Manager: Praveen Khan MD, Phone: [phone] Performed By: #### L 3410.0900, L501.9520, L3100.3425, L101.9900, L3410.2350, L3410.1000, L501.6710, L503.0106, L504.2610, L3300.1800 ####[facility] [address] [place], [place], [address] Addendum DocumentOrdered By: Darrin Lozoya on 11-27-2024 Serum Immunofixation Comments Comment . [facility] Comment on above: Protein electrophore sis scan will follow via computer,mail, or cone baker machine delivery. Albumin Elph [Mass/Vol]Order ed By: Darrin Lozoya on 11-27-2024 Albumin [Mass/Vol] 4.0 g/dL 2.9-4.4 [facility] Alpha 1 globulin Elph [Mass/ Vol]Ordered By: Darrin Lozoya on 11-27-2024 Ytupz-2-Qkhkyiarb (DI) 0.3 g/dL 0.0-0.4 [facility] Xwixm-1-Zojimhztx (DI) 0.7 g/dL 0.4-1.0 [facility] Beta globulin Elph [Mass/Vol ]Ordered By: Darrin Lozoya on 11-27-2024 Beta-Globulins (DI) 0.9 g/dL 0.7-1.3 [facility] CNOVon 11-27-2024 CNOV Office Visit (ORTHWS ) ELISHA GODFREY ([id number]) 1955 F Date Time Provider Department 11/27/24 2:30 PM MANOJ GAMINO During your visit today, we recorded the following information about you: Manoj Gamino MD 11/27/2024 6:41 PM Signed Manoj Gamino MD Department of Orthopaedics Orthopaedics [address] [facility] [address] Dept: [phone] Dept November 27, 2024 CHIEF COMPLAINT: Established [...] SURGICAL HIS (more content not included)... Normal [facility] CRPon 11-27-2024 C-REACTIVE PROT 3.68 mg/L High 0.0-3.0 [facility] Comment on above: Performed By: #### L 3410.0900, L501.9520, L3100.3425, L101.9900, L3410.2350, L3410.1000, L501.6710, L503.0106, L504.2610, L3300.1800 #### [facility] Laboratory [facility] [address] [place], [place], [phone] CRP [Mass/Vol]Ordered By: Ra glen Lozoya on 11-27-2024 C-Reactive Protein Extended Range 3.68 mg/L High 0.0-3.0 [facility] Deamidated gliadin IgA antib elton assayOrdered By: Darrin Lozoya on 11-27-2024 Anti-Gliadin IgA Antibody 8 units 0-19 [facility] Comment on above: Negative 0 - 19 Weak Positive 20 - 30 Moderate to Strong Positive >30 Deamidated gliadin IgG antib elton assayOrdered By: Darrin Lozoya on 11-27-2024 Anti-Gliadin IgG Antibody 5 units 0-19 [facility] Comment on above: Negative 0 - 19 Weak Positive 20 - 30 Moderate to Strong Positive >30 Endomysial IgA antibody assa yOrdered By: Darrin Lozoya on 11-27-2024 Endomysial IgA Antibody Negative Negative [facility] Erythrocyte Sed Rateon 11-27 SED RATE 4 mm/hr Normal 0-30 [facility] Comment on above: Performed By: #### L 3410.0900, L501.9520, L3100.3425, L101.9900, L3410.2350, L3410.1000, L501.6710, L503.0106, L504.2610, L3300.1800 #### [facility] Laboratory [address] [place], [address] Erythrocyte sedimentation ra teOrdered By: Darrin Lozoya on 11-27-2024 ESR (Bld) [Velocity] 4 mm/h 0-30 [facility] Gamma globulin Elph [Mass/Vo l]Ordered By: Darrin Lozoya on 11-27-2024 Gamma Globulins (DI) 1.2 g/dL 0.4-1.8 [facility] Gastrin [Mass/Vol]Ordered By : Darrin Lozoya on 11-27-2024 Gastrin 665 pg/mL High 0-115 [facility] Comment on above: Siemens Immulite 200 0 Immunochemiluminometric assay (ICMA)Values obtained with different assay methods or kits cannotbe used interchangeably. Results cannot be interpreted asabsolute evidence of the presence or absence of malignantdisease. Gastrin, serumOrdered By: Ra glen Lozoya on 11-27-2024 Gastrin [Mass/Vol] 665 pg/mL High 0-115 [facility] Comment on above: Siemens Immulite 200 0 Immunochemiluminometric assay (ICMA)Values obtained with different assay methods or kits cannotbe used interchangeably. Results cannot be interpreted asabsolute evidence of the presence or absence of malignantdisease. Gastroenterology Visit Repor ton 11-27-2024 Gastroenterology Visit Report [facility] Gastroenterology [address] [place] [address] OFFICE VISIT Date of Service: 11/27/24 MR#: [id number] Acct: [id number] Name: ELISHA GODFREY Rep #: [id number] : 1955 Provider: Darrin Lozoya DO Age/Sex: 69/F [place] [facility] [place]: Signed Intake Vital Signs 06/02/16 07:59 [...] any questions or concerns at this time. [facility] Medical History (Updated 11/27/24 @ 09:42 by [...] to the office today for initial consult. *[facility] established 4.7.25 pt reports that she [...] easy bleedi (more content not included)... Normal [facility] IgA [Mass/Vol]Ordered By: Ra glen Lozoya on 11-27-2024 Immunoglobulin A 91 mg/dL 87-352 [facility] IgG [Mass/Vol]Ordered By: Ra glen Lozoya on 11-27-2024 Immunoglobulin G 1053 mg/dL 586-1602 [facility] Immunoglobulin M measurement Ordered By: Darrin Lozoya on 11-27-2024 Immunoglobulin M 122 mg/dL 26-217 [facility] Interpretation IEP [Interp]O rdered By: Darrin Lozoya on 11-27-2024 Immunofixation Screen Comment . [facility] Comment on above: No monoclonality det ected. Interpretation of serum or p lasma protein pattern by immunofixation (narrative resultOrdered By: Darrin Lozoya on 11-27-2024 Protein Fractions Immunofixation Jordi [Interp] Not Observed g/dL Not Observed [facility] Intrinsic factor abOrdered B y: Darrin Lozoya on 11-27-2024 Intrinsic Factor Antibody 1.0 AU/mL 0.0-1.1 [facility] Comment on above: Performed at: - [address] [id number] Director: Eliazar Posadas PhD, Phone: [phone] at: [facility] [id number] Director: Praveen Khan MD, Phone: [phone] LDHon 11-27-2024 LDH 264 U/L High 84-246 [facility] Comment on above: Order Comment: 1 Result Comment: Hemo lysis present, Results??could be affected. ?? Performed By: #### L 3410.0900, L501.9520, L3100.3425, L101.9900, L3410.2350, L3410.1000, L501.6710, L503.0106, L504.2610, L3300.1800 #### [facility] Laboratory [place], [address] Lactate dehydrogenase (LDH) measurementOrdered By: Darrin Lozoya on 11-27-2024 LDH [Catalytic activity/Vol] 264 U/L High 84-246 [facility] Comment on above: Hemolysis present, R esults could be affected. No Panel InformationOrdered By: Darrin Lozoya on 11-27-2024 Addendum Document Comment . [facility] Comment on above: Protein electrophore sis scan will follow via computer,mail, or cone baker machine delivery. Tissue Transglutaminase IgG Ab 4 U/mL 0-5 [facility] Comment on above: Negative 0 - 5 Weak Positive 6 - 9 Positive >9 Parietal cell Ab Qn (S)Order ed By: Darrin Lozoya on 11-27-2024 Anti-Parietal Cell Antibody 1.4 Units 0.0-20.0 [facility] Comment on above: Negative 0.0 - 20.0 Equivocal 20.1 - 24.9 Positive >24.9Parietal Cell Antibodies are found in 90% of patientswith pernicious anemia and 30% of first degreerelatives with pernicious anemia. Protein Fractions Immunofixa tion Jordi [Interp]Ordered By: Darrin Lozoya on 11-27-2024 M-Raffaele (DI) Not Observed g/dL Not Observed [facility] Serum albumin/globulin ratio Ordered By: Darrin Lozoya on 11-27-2024 Albumin/Globulin (DI) 1.4 0.7-1.7 [facility] Serum globulin measurement ( mass/volume)Ordered By: Darrin Lozoya on 11-27-2024 Globulin (S) [Mass/Vol] 3.0 g/dL 2.2-3.9 [facility] Serum or plasma C reactive p rotein measurement (mass/volume)Ordered By: Darrin Lozoya on 11-27-2024 CRP [Mass/Vol] 3.68 mg/L High 0.0-3.0 [facility] Serum or plasma IgA measurem ent (mass/volume)Ordered By: Darrin Lozoya on 11-27-2024 IgA [Mass/Vol] 91 mg/dL 87-352 [facility] Serum or plasma IgG measurem ent (mass/volume)Ordered By: Darrin Lozoya on 11-27-2024 IgG [Mass/Vol] 1053 mg/dL 586-1602 [facility] Serum or plasma alpha 1 glob ulin measurement by electrophoresis (mass/volume)Ordered By: Darrin Lozoya on 11-27-2024 Alpha 1 globulin Elph [Mass/Vol] 0.3 g/dL 0.0-0.4 [facility] Alpha 1 globulin Elph [Mass/Vol] 0.7 g/dL 0.4-1.0 [facility] Serum or plasma beta globuli n measurement by electrophoresis (mass/volume)Ordered By: Darrin Lozoya on 11-27-2024 Beta globulin Elph [Mass/Vol] 0.9 g/dL 0.7-1.3 [facility] Serum or plasma gamma globul in measurement by electrophoresis (mass/volume)Ordered By: Darrin Lozoya on 11-27-2024 Gamma globulin Elph [Mass/Vol] 1.2 g/dL 0.4-1.8 [facility] Serum or plasma immunoelectr ophoresis interpretation (nominal result)Ordered By: Darrin Lozoya on 11-27-2024 Interpretation IEP [Interp] Comment . [facility] Comment on above: No monoclonality det ected. Serum or plasma protein shira urement (mass/volume)Ordered By: Darrin Lozoya on 11-27-2024 Protein [Mass/Vol] 7.0 g/dL 6.0-8.5 [facility] Serum parietal cell antibody assay (units/volume)Ordered By: Darrin Lozoya on 11-27-2024 Parietal cell Ab Qn (S) 1.4 Units 0.0-20.0 [facility] Comment on above: Negative 0.0 - 20.0 Equivocal 20.1 - 24.9 Positive >24.9Parietal Cell Antibodies are found in 90% of patientswith pernicious anemia and 30% of first degreerelatives with pernicious anemia. Serum tissue transglutaminas e (tTG) IgA antibody assay (units/volume)Ordered By: Darrin Lozoya on 11-27-2024 tTG IgA Qn (S) 3 U/mL 0-3 [facility] Comment on above: Negative 0 - 3 Weak Positive 4 - 10 Positive >10 Tissue Transglutaminase (tTG) has been identified as the endomysial antigen. Studies have demonstr- ated that endomysial IgA antibodies have over 99% specificity for gluten sensitive enteropathy. TSH DL <= 0.005 mIU/L QnOrde red By: Darrin Lozoya on 11-27-2024 Thyroid Stimulating Hormone (TSH) 2.340 uIU/mL 0.300-4.20 0 [facility] TSH Qn 2.340 uIU/mL 0.300-4.20 0 [facility] Thyroid Stim Hormone (TSH)on 11-27-2024 TSH 2.340 uIU/mL Normal 0.300-4.20 0 [facility] Comment on above: Performed By: #### L 3410.0900, L501.9520, L3100.3425, L101.9900, L3410.2350, L3410.1000, L501.6710, L503.0106, L504.2610, L3300.1800 #### [facility] Laboratory [address] [facility] [facility] [place], [place], [id number] Vitamin B12on 11-27-2024 Cobalamin (Vitamin B12) [Mass/Vol] 747 pg/mL Normal 180-914 [facility] Comment on above: Performed By: #### L 3410.0900, L501.9520, L3100.3425, L101.9900, L3410.2350, L3410.1000, L501.6710, L503.0106, L504.2610, L3300.1800 #### [facility] Laboratory [address] [place], [place], [id number] Vitamin B12 ser/plasOrdered By: Darrin Lozoya on 11-27-2024 Cobalamin (Vitamin B12) [Mass/Vol] 747 pg/mL 180-914 [facility] tTG IgA Qn (S)Ordered By: Ra glen Lozoya on 11-27-2024 Tissue Transglutaminase IgA Ab 3 U/mL 0-3 [facility] Comment on above: Negative 0 - 3 Weak Positive 4 - 10 Positive >10 Tissue Transglutaminase (tTG) has been identified as the endomysial antigen. Studies have demonstr- ated that endomysial IgA antibodies have over 99% specificity for gluten sensitive enteropathy. CNOVon 11-23-2024 CNOV Office Visit (PODIWS ) ELISHA GODFREY ([id number]) 1955 F Date Time Provider Department 11/23/24 [...] (H) 4.3 - 5.6 % Final Comment: [place] [employer] guidelines indicate that patients with [...] ALLERGY) 32 mcg/actuation nasal spray Use 1 [place] in each nostril as needed. ramipril (ALTACE) [...] her fe (more content not included)... Normal [facility] Vanessa 11-15-2024 [employer] [facility] Tele[facility] (RADMN[facility] ELISHA GODFREY ([id number]) 1955 F Date Time Provider Department 11/15/24 ISIDRA ANDRADEHI During your visit today, we recorded the [...] ALLERGY) 32 mcg/actuation nasal spray Use 1 [place] in each nostril as needed. 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 [N*07/10/2013 Cystocele [TJD4861] 07/17/2013 Female stress incontinence [N39.3] 07/17/2013 Mixed [...] Status:Closed by MATILDA WRIGHT on 11/15/24 Normal [facility] NCS and/or EMG Patienton NCS and/or EMG Patient [facility] Pulmonary Services/Neurology [address] [place] [address] MR#: [id number] Acct: [id number] Name: ELISHA GODFREY Rep #: [id number] : 1955 69 From: Chas Bello MD [...] Multi Select Codes Neurology Neurology Interp Codes: 30450-88 Musc test done w/n test comp (interp) (1) and 46344-48 Nrv cndj test 7-8 studies (interp) 11/14/24 1346 Date Chas Bello MD CC: Dr. Chas Bello MD; Dr. Manoj Gamino MD; Dr. Kade Fry MD Date Dictated: 11/14/24 113 Date Transcribed: 11/14/241130 Senior Process Control Tech: Signed Normal [facility] DBT Breast - bilateral moustapha fuentes 11-13-2024 [...] Sari Sol M.D. Electronically signed on: 11/13/2024 Senior Process Control Tech: RUI Evansrimoe Date/Time: Nov 13 2024 10:08A Dictated by: SARI SOL MD This examination was interpreted and the report reviewed and electronically signed by: SARI SOL MD on Nov 13 2024 2:32PM [facility] DIVISION OF RADIOLOGY * * *Final Report* * * DATE OF EXAM: Nov 13 2024 10:31AM [facility] 0582 - LEIGH SCREENING W IRISH / PROCEDURE REASON: Encounter for screening mammogram for breast cancer * * * * Physician Interpretation * * * * RESULT: [facility] [address] [place] [address] #[id number] - [facility] SCREENING W IRISH HISTORY: 69 [...] the left breast. DIVISION OF RADIOLOGY Provider, [facility] - 11/13/2024 * * *Final Report* * * DATE OF EXAM: Nov 13 2024 10:31AM [facility] 0582 - [facility] SCREENING W IRISH / PROCEDURE REASON: Encounter for screening mammogram for breast cancer * * * * Physician Interpretation * * * * RESULT: [place] [address] [place] [address] #[id number] - [facility] SCREENING W IRISH HISTORY: 69 [...] Sari Sol M.D. Electronically signed on: 11/13/2024 Senior Process Control Tech: RUI Transcribe Date/Time: Nov 13 2024 10:08A Dictated by: SARI SOL MD This examination was interpreted and the report reviewed and electronically signed by: SARI SOL MD on Nov 13 2024 2:32PM EST [facility] Rad[facility] DBT Breast - bilateral scree ningOrdered By: Ccasuncion Provider on 11-13-2024 [facility] LEIGH SCREENING W TOMOon 11-13 LEIGH SCREENING W IRISH * * *Final Report* * * DATE OF EXAM: Nov 13 2024 10:31AM [facility] 0582 - LEIGH SCREENING W IRISH / PROCEDURE REASON: Encounter for screening mammogram for breast cancer * * * * Physician Interpretation * * * * RESULT: [facility] [address] [place] [address] #[id number] - LEIGH SCREENING W IRISH HISTORY: 69 [...] Sari Sol M.D. Electronically signed on: 11/13/2024 Senior Process Control Tech: RUI Evansrimoe Date/Time: Nov 13 2024 10:08A Dictated by: SARI SOL MD This examination was interpreted and the report reviewed and electronically signed by: SARI SOL MD on Nov 13 2024 2:32PM EST [id number] Normal [facility] CNOVon 10-31-2024 CNOV Office Visit (PODIWS ) ELISHA GODFREY ([id number]) 1955 F Date Time Provider Department 10/31/24 10:45 AM CHETAN BHAGAT During your visit [...] as well if you have any questions/concerns [phone], ask for Podiatry Nurse Chetan Bhagat 10/31/2024 [...] (H) 4.3 - 5.6 % Final Comment: [place] [employer] guidelines indicate that patients with [...] ALLERGY) 32 mcg/actuation nasal spray Use 1 [place] in each nostril as needed. ramipril (ALTACE) [...] daily. aspirin(ECO (more content not included)... Normal [facility] PVR ANK PRESS JOSE VAS LABon 10-17-2024 PVR ANK PRESS JOSE VAS LAB Non-Invasive Vascular Laboratory [facility] Lower Extremity Arterial Physiology Study Bilateral/Complete Date [...] Normal at rest. Technologist: Sarah Ferrera RVT, RDNC Ordering physician: CHETAN BHAGTA Interpreting physician: MOOSE Daugherty DO Final CC [employer] [facility] Image : [id number] See Link below for Image Normal [facility] Additional Injections: L lisset mb A1on 10-16-2024 Manoj Gamino MD 10/16/2024 12:26 [...] these instructions. Informed Consent Consent Obtained: Verbal Buena Protocol A moment to CARE was completed. [...] Plan of Care Visit completed when applicable [facility] CNOVon 10-16-2024 CNOV Office Visit (PODIWS ) ELISHA GODFREY ([id number]) 1955 F Date Time Provider Department 10/16/24 10:45 AM CHETAN BHAGAT PODIWS During your visit today, we recorded the following information about you: Sayra Clifford, FÉLIX 10/16/2024 11:28 AM Signed Patient presents with: [...] 09/09/2018 5.6 08/17/2017 6.1 08/20/2016 6.2 HBA1C, [place] (%) Date Value 03/07/2011 5.5 Hemoglobin A1C [...] ALLERGY) 32 mcg/actuation nasal spray Use 1 [place] in each nostril as needed. ramipril (ALTACE) [...] Prevacid [Lansop (more content not included)... Normal [facility] CNOV Office Visit (FOREIGN ) ELISHA GODFREY ([id number]) 1955 F Date Time Provider Department 10/16/24 9:15 AM MANOJ GAMINO During your visit today, we recorded the following information about you: Manoj Gamino MD 10/16/2024 12:26 PM Signed Manoj Gamino MD Department of Orthopaedics Orthopaedics [address] [facility] [address] Dept: [phone] Dept October 16, 2024 CHIEF COMPLAINT: New and Numbness of the Left Hand and Trigger Finger of the Left Thumb (Referred by Dr. Fry) HPI Patient here for evaluation left hand numbness and tingling. Her left thumb has also been locking. Patient states she has had the numbness and tingling for about 3 months. 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 IMAGING: IMPRESSION: No acute osseous abnormality Senior Process Control Tech: PATO Transcribe Date/Time: Aug 24 2023 10:23A [...] these instructions. Informed Consent Consent Obtained: Verbal Buena Protocol A moment to CARE was completed. [...] 09/25/2021 Art (more content not included)... Normal [facility] Absolute lymphocyte countOrd ered By: Dina Ferrer on 10-03-2024 Lymphocytes Auto (Unsp spec) [#/Vol] 0.98 10*3/uL 0.83-4.51 [facility] Absolute neutrophil countOrd ered By: Dina Ferrer on 10-03-2024 Neutrophils (Bld) [#/Vol] 2.4 10*3/uL 2.0-7.7 [facility] Albumin to globulin ratioOrd ered By: Dina Ferrer on 10-03-2024 Albumin/Globulin [Mass ratio] 1.2 {ratio} 0.9-2.4 [facility] Automated lymphocyte count a s percentage of total leukocytesOrdered By: Dina Ferrer on 10-03-2024 Lymphocytes/100 WBC Auto (Unsp spec) 26.1 % 19-41 [facility] Basophil percentageOrdered B y: Dina Ferrer on 10-03-2024 Basophils/100 WBC (Bld) 0.8 % 0-1 [facility] Bilirubin, totalOrdered By: Dina Ferrer on 10-03-2024 Bilirubin [Mass/Vol] 0.80 mg/dL 0.20-1.00 [facility] Comment on above: For patients on eltr ombopag therapy, use of Dimension [place] TBIL is not recommended. Blood urea nitrogen (BUN)/cr eatinine ratioOrdered By: Dina Ferrer on 10-03-2024 Urea nitrogen/Creatinine [Mass ratio] 23.5 mg/mg High 10-20 [facility] CBC W/Diff, Automatedon 09-23 Absolute Lymph 0.98 X10 3/uL Normal 0.83-4.51 [facility] Comment on above: Performed By: #### L 100.0100, L500.4050 ####[facility] [address] [place], [address] Absolute Neut 2.4 X10 3/uL Normal 2.0-7.7 [facility] Comment on above: Performed By: #### L 100.0100, L500.4050 ####[facility] [address] [place], [address] Basophils/100 WBC (Bld) 0.8 % Normal 0-1 [facility] Comment on above: Performed By: #### L 100.0100, L500.4050 ####[facility] [address] [place], [address] Eosinophils/100 WBC (Bld) 2.7 % Normal 0-5 [facility] Comment on above: Performed By: #### L 100.0100, L500.4050 ####[facility] [address] [place], [address] Erythrocyte distribution width (RBC) [Ratio] 13.1 % Normal 11.6-14.6 [facility] Comment on above: Performed By: #### L 100.0100, L500.4050 ####[facility] [address] [place], [address] Hematocrit (Bld) [Volume fraction] 40.5 % Normal 37-47 [facility] Comment on above: Performed By: #### L 100.0100, L500.4050 ####[facility] [address] [place], [address] Hemoglobin (Bld) [Mass/Vol] 13.7 g/dL Normal 12.0-15.0 [facility] Comment on above: Performed By: #### L 100.0100, L500.4050 ####[facility] [address] [place], [address] IG% 0.300 Normal 0.0-0.9 [facility] Comment on above: Result Comment: IG% - Immature Granulocytes (promyelocytes, myelocytes and metamyelocytes) > 1% indicates that a LEFT SHIFT is Present. Performed By: #### L 100.0100, L500.4050 ####[facility] [address] [place], [address] Lymphocytes/100 WBC (Bld) 26.1 % Normal 19-41 [facility] Comment on above: Performed By: #### L 100.0100, L500.4050 ####[facility] [address] [place], [address] MCH (RBC) [Entitic mass] 35.1 pg High 27.0-32.0 [facility] Comment on above: Performed By: #### L 100.0100, L500.4050 ####[facility] [address] [place], [address] MCHC (RBC) [Mass/Vol] 33.8 g/dL Normal 32-36 [facility] Comment on above: Performed By: #### L 100.0100, L500.4050 ####[facility] [address] [place], [address] MCV (RBC) [Entitic vol] 103.8 fL High 81-99 [facility] Comment on above: Performed By: #### L 100.0100, L500.4050 ####[facility] [address] [place], [address] Monocytes/100 WBC (Bld) 6.6 % Normal 0-10 [facility] Comment on above: Performed By: #### L 100.0100, L500.4050 ####[facility] [address] [place], [address] Neutrophils/100 WBC (Bld) 63.5 % Normal 47-70 [facility] Comment on above: Performed By: #### L 100.0100, L500.4050 ####[facility] [address] [place], [address] Nucleated RBC (Bld) [#/Vol] 0 10*3/uL Normal 0-5 [facility] Comment on above: Performed By: #### L 100.0100, L500.4050 ####[facility] [address] [place], [address] Platelet mean volume (Bld) [Entitic vol] 10.1 fL Normal 6.2-12.0 [facility] Comment on above: Performed By: #### L 100.0100, L500.4050 ####[facility] [address] [place], [address] Platelets (Bld) [#/Vol] 189 10*3/uL Normal 150-450 [facility] Comment on above: Performed By: #### L 100.0100, L500.4050 ####[facility] [address] [place], [address] RBC (Bld) [#/Vol] 3.90 10*6/uL Low 4.2-5.4 [facility] Comment on above: Performed By: #### L 100.0100, L500.4050 ####[facility] [address] [place], [address] RDW SD 49.7 fl High 35.1-43.9 [facility] Comment on above: Performed By: #### L 100.0100, L500.4050 ####[facility] [address] [place], [address] WBC (Bld) [#/Vol] 3.8 10*3/uL Low 4.4-11.0 [facility] Comment on above: Performed By: #### L 100.0100, L500.4050 ####[facility] [address] [place], [address] Carbon dioxide measurementOr dered By: Dina Ferrer on 10-03-2024 CO2 [Moles/Vol] 29.0 mmol/L 21.0-32.0 [facility] Chloride measurementOrdered By: Dina Ferrer on 10-03-2024 Chloride [Moles/Vol] 104 mmol/L 98-107 [facility] Comprehensive Metabolic Prof ilon 10-03-2024 Albumin [Mass/Vol] 3.9 g/dL Normal 3.2-5.0 [facility] Comment on above: Performed By: #### L 100.0100, L500.4050 ####[facility] [address] [place], [address] Albumin/Globulin [Mass ratio] 1.2 {ratio} Normal 0.9-2.4 [facility] Comment on above: Performed By: #### L 100.0100, L500.4050 ####[facility] [address] [place], [address] ALK P 84 U/L Normal 45-117 [facility] Comment on above: Performed By: #### L 100.0100, L500.4050 ####[facility] [address] [place], [address] ALT [Catalytic activity/Vol] 16 U/L Normal 13-56 [facility] Comment on above: Performed By: #### L 100.0100, L500.4050 ####[facility] [address] [place], [address] AST [Catalytic activity/Vol] 20 U/L Normal 15-37 [facility] Comment on above: Performed By: #### L 100.0100, L500.4050 ####[facility] [address] [place], [address] Bilirubin [Mass/Vol] 0.80 mg/dL Normal 0.20-1.00 [facility] Comment on above: Result Comment: For patients on eltrombopag therapy, use of Dimension [place] TBIL is not recommended. Performed By: #### L 100.0100, L500.4050 ####[facility] [address] [place], [address] BUN/CRE 23.5 RATIO High 10-20 [facility] Comment on above: Performed By: #### L 100.0100, L500.4050 ####[facility] [address] [place], [address] CA,Total 9.3 mg/dL Normal 8.5-10.1 [facility] Comment on above: Performed By: #### L 100.0100, L500.4050 ####[facility] [address] [place], [address] Chloride [Moles/Vol] 104 mmol/L Normal 98-107 [facility] Comment on above: Performed By: #### L 100.0100, L500.4050 ####[facility] [address] [place], [address] CO2 [Moles/Vol] 29.0 mmol/L Normal 21.0-32.0 [facility] Comment on above: Performed By: #### L 100.0100, L500.4050 ####[facility] [address] [place], [address] Creatinine [Mass/Vol] 0.81 mg/dL Normal 0.55-1.02 [facility] Comment on above: Result Comment: The validity of the calculated GFR GFRAA in patients over 70 years has not been determined. Clinical correlation is essential. Performed By: #### L 100.0100, L500.4050 ####[facility] [address] [place], [address] EST GFR - AA 90 mL/min Normal >60 [facility] Comment on above: Result Comment: Afri can [place] GFR Calc Performed By: #### L 100.0100, L500.4050 ####[facility] [address] [place], [address] GAP 7 Normal 5-15 [facility] Comment on above: Performed By: #### L 100.0100, L500.4050 ####[facility] [address] [place], [address] GFR/1.73 sq M.predicted among non-blacks MDRD (S/P/Bld) [Vol rate/Area] 74 mL/min/{1.73_m2} Normal >60 [facility] Comment on above: Result Comment: Non- GFR Calc Performed By: #### L 100.0100, L500.4050 ####[facility] [address] [place], [address] Globulin (S) [Mass/Vol] 3.3 g/dL Normal 2.2-4.2 [facility] Comment on above: Performed By: #### L 100.0100, L500.4050 ####[facility] [address] [place], [address] Glucose [Mass/Vol] 133 mg/dL High 74-106 [facility] Comment on above: Result Comment: Fast ing Glucose result greater than or equal to 126 mg/dL suggests DIABETES MELLITUS per A.D.A. criteria. Performed By: #### L 100.0100, L500.4050 ####[facility] [address] [place], [address] Potassium [Moles/Vol] 3.5 mmol/L Normal 3.5-5.1 [facility] Comment on above: Performed By: #### L 100.0100, L500.4050 ####[facility] [address] [place], [address] Sodium [Moles/Vol] 140 mmol/L Normal 136-145 [facility] Comment on above: Performed By: #### L 100.0100, L500.4050 ####[facility] [address] [place], [address] T PROT 7.2 g/dL Normal 6.4-8.2 [facility] Comment on above: Performed By: #### L 100.0100, L500.4050 ####[facility] [address] [place], [place], [address] Urea nitrogen [Mass/Vol] 19 mg/dL High 7-18 [facility] Comment on above: Performed By: #### L 100.0100, L500.4050 ####[facility] [address] [place], [address] Eosinophil percentageOrdered By: Dina Ferrer on 10-03-2024 Eosinophils/100 WBC (Bld) 2.7 % 0-5 [facility] Erythrocyte distribution wid th ratioOrdered By: [facility] Nabil on 10-03-2024 Erythrocyte distribution width (RBC) [Ratio] 13.1 % 11.6-14.6 [facility] Erythrocyte distribution wid th standard deviationOrdered By: Dinadahiana Ferrer on 10-03-2024 Erythrocyte distribution width (RBC) [Entitic vol] 49.7 fL High 35.1-43.9 [facility] Erythrocyte distribution width (RBC) [Ratio] 49.7 fl High 35.1-43.9 [facility] Estimated glomerular filtrat ion rate (GFR) AmericanOrdered By: Dina Ferrer on 10-03-2024 Estimated GFR (MDRD) Amer 90 mL/min >60 [facility] Comment on above: GFR Calc Glomerular filtration rate ( GFR) estimationOrdered By: Dina Ferrer on 10-03-2024 Estimated GFR (MDRD) Non-Af Amer 74 mL/min >60 [facility] Comment on above: Non- GFR Calc GFR/1.73 sq M.predicted among non-blacks MDRD (S/P/Bld) [Vol rate/Area] 74 mL/min/{1.73_m2} >60 [facility] Comment on above: Non- GFR Calc Glucose measurementOrdered B y: Dina Ferrer on 10-03-2024 Glucose [Mass/Vol] 133 mg/dL High 74-106 [facility] Comment on above: Fasting Glucose resu lt greater than or equal to 126 mg/dL suggests DIABETES MELLITUS per A.D.A. criteria. Hematocrit Auto (Bld) [Volum e fraction]Ordered By: Dina Ferrer on 10-03-2024 Hematocrit (Bld) [Volume fraction] 40.5 % 37-47 [facility] Hemoglobin measurementOrdere d By: Dina Ferrer on 10-03-2024 Hemoglobin (Bld) [Mass/Vol] 13.7 g/dL 12.0-15.0 [facility] Immature granulocytes/100 WB C Auto (Bld)Ordered By: Dina Ferrer on 10-03-2024 Immature granulocytes/100 WBC (Bld) 0.300 % 0.0-0.9 [facility] Comment on above: IG% - Immature Granu locytes (promyelocytes, myelocytes and metamyelocytes) > 1% indicates that a LEFT SHIFT is Present. Laboratory - Chemistry and C hemistry - challengeOrdered By: Dina Ferrer on 10-03-2024 AST [Catalytic activity/Vol] 20 U/L 15-37 [facility] Lymphocytes Auto (Unsp spec) [#/Vol]Ordered By: Dina Ferrer on 10-03-2024 Lymphocytes (Bld) [#/Vol] 0.98 10*3/uL 0.83-4.51 [facility] Lymphocytes/100 WBC Auto (Un sp spec)Ordered By: Dina Ferrer on 10-03-2024 Lymphocytes/100 WBC (Bld) 26.1 % 19-41 [facility] MCV (mean corpuscular volume ) determinationOrdered By: Dina Ferrer on 10-03-2024 MCV (RBC) [Entitic vol] 103.8 fL High 81-99 [facility] Mean corpuscular hemoglobin (MCH) determinationOrdered By: Dina Ferrer on 10-03-2024 MCH (RBC) [Entitic mass] 35.1 pg High 27.0-32.0 [facility] Mean corpuscular hemoglobin concentration (MCHC) determinationOrdered By: Dina Ferrer on 10-03-2024 MCHC (RBC) [Mass/Vol] 33.8 g/dL 32-36 [facility] Mean platelet volume determi nationOrdered By: Dina Ferrer on 10-03-2024 Platelet mean volume (Bld) [Entitic vol] 10.1 fL 6.2-12.0 [facility] Monocyte percentageOrdered B y: Dina Ferrer on 10-03-2024 Monocytes/100 WBC (Bld) 6.6 % 0-10 [facility] Neutrophil percentageOrdered By: Dina Ferrer on 10-03-2024 Neutrophils/100 WBC (Bld) 63.5 % 47-70 [facility] Nucleated red blood cell per centageOrdered By: Dina Ferrer on 10-03-2024 Nucleated RBC/100 WBC (Bld) [Ratio] 0 % 0-5 [facility] Platelet countOrdered By: Ba Ferrer on 10-03-2024 Platelets (Bld) [#/Vol] 189 10*3/uL 150-450 [facility] Potassium measurementOrdered By: Dina Ferrer on 10-03-2024 Potassium [Moles/Vol] 3.5 mmol/L 3.5-5.1 [facility] RBC Auto (Bld) [#/Vol]Ordere d By: Dina Ferrer on 10-03-2024 RBC (Bld) [#/Vol] 3.90 10*6/uL Low 4.2-5.4 [facility] Serum anion gap measurementO rdered By: Dina Ferrer on 10-03-2024 Anion gap [Moles/Vol] 7 mmol/L 5-15 [facility] Serum globulin measurementOr dered By: Dina Ferrer on 10-03-2024 Globulin (S) [Mass/Vol] 3.3 g/dL 2.2-4.2 [facility] Serum or plasma alanine abraham otransferase (ALT) measurementOrdered By: Dina Ferrer on 10-03-2024 ALT [Catalytic activity/Vol] 16 U/L 13-56 [facility] Serum or plasma albumin shira urement (mass/volume)Ordered By: Dina Ferrer on 10-03-2024 Albumin [Mass/Vol] 3.9 g/dL 3.2-5.0 [facility] Serum or plasma alkaline ramone sphatase measurementOrdered By: Dina Ferrer on 10-03-2024 ALP [Catalytic activity/Vol] 84 U/L 45-117 [facility] Serum or plasma calcium shira urement (mass/volume)Ordered By: Dina Ferrer on 10-03-2024 Calcium [Mass/Vol] 9.3 mg/dL 8.5-10.1 [facility] Serum or plasma creatinine m easurement (mass/volume)Ordered By: Dina Ferrer on 10-03-2024 Creatinine [Mass/Vol] 0.81 mg/dL 0.55-1.02 [facility] Comment on above: The validity of the calculated GFR & GFRAA in patients over 70 years has not been determined. Clinical correlation is essential. Serum or plasma urea nitroge n measurement (mass/volume)Ordered By: Dina Ferrer on 10-03-2024 Urea nitrogen [Mass/Vol] 19 mg/dL High 7-18 [facility] Sodium levelOrdered By: Shaila Ferrer on 10-03-2024 Sodium [Moles/Vol] 140 mmol/L 136-145 [facility] Total proteinOrdered By: Issac Ferrer on 10-03-2024 Protein [Mass/Vol] 7.2 g/dL 6.4-8.2 [facility] White blood cell (WBC) count Ordered By: Dina Ferrer on 10-03-2024 WBC (Bld) [#/Vol] 3.8 10*3/uL Low 4.4-11.0 [facility] CNOVon 09-21-2024 CNOV Office Visit (FAMPWS ) ELISHA GODFREY ([id number]) 1955 F Date Time Provider Department 09/21/24 8:40 AM KADE FRYPWS During your visit today, we recorded the [...] General (Family Medicine) Addie [place] APRN.ROSHAN as Protection Consultant (Family Medicine) Ena Aguiar PA-C as Protection Consultant (Family Medicine) Dr. Crockett: Rheum Medical/Family history [...] repeat in 3 years, with MAC at [facility] COLONOSCOPY FLX DX W/COLLJ SPEC WHEN PFRMD 02/22/2006 COLONOSCOPY FLX DX W/COLLJ SPEC WHEN PFRMD 03/23/2016 Colonoscopy, repeat 5 years EGD W/O [facility] SPEC VARICIES INJ 10/29/2021 ESOPHAGOGASTRODUODENOSCOPY TRANSORAL DIAGNOSTIC 12/23/1998 EGD LAPAROSCOPIC APPENDECTOMY 07/12/2007 Early acute LIG/TRNSXJ FLP TUBE ABDL/VAG APPR UNI/BI Tubal ligation PAST SURGICAL HISTORY OF lipoma back, left back PAST SURGICAL HISTORY OF Right 06/02/2016 Dr. Matthew COATS, Right Knee Scope SLING OPER STRES INCONTINENCE 09/20/2012 (more content not included)... Normal [facility] CBC W Auto Differential pane l (Bld)on 09-14-2024 Basophils (Bld) [#/Vol] 0.04 10*3/uL Normal <0.11 [facility] Comment on above: Order Comment: Speci men Type: BLOOD SPECIMENOrdering Facility: [facility] Address: [address] [place] [address] Performed By: #### 5 7021-8 ####[facility] LABCLIA [id number] [place] [address] [place] Basophils/100 WBC (Bld) 1.0 % Normal [facility] Comment on above: Order Comment: Speci men Type: BLOOD SPECIMENOrdering Facility: [facility] Address: [address] [place] [address] Performed By: #### 5 7021-8 ####[facility] LABCLIA [id number] [place] [address] [place] Differential cell count method Nom (Bld) Auto Normal [facility] Comment on above: Order Comment: Speci men Type: BLOOD SPECIMENOrdering Facility: [facility] Address: [address] [place] [address] Performed By: #### 5 7021-8 ####[facility] LABCLIA [id number] [place] [address] [place] Eosinophils (Bld) [#/Vol] 0.13 10*3/uL Normal <0.46 [facility] Comment on above: Order Comment: Speci men Type: BLOOD SPECIMENOrdering Facility: [facility] Address: [address] [place] [address] Performed By: #### 5 7021-8 ####[facility] LABCLIA [id number] [place] [address] [place] Eosinophils/100 WBC (Bld) 3.2 % Normal [facility] Comment on above: Order Comment: Speci men Type: BLOOD SPECIMENOrdering Facility: [facility] Address: [address] [place] [address] Performed By: #### 5 7021-8 ####[facility] LABCLIA [id number] [place] [address] [place] Erythrocyte distribution width (RBC) [Ratio] 13.1 % Normal 11.5-15.0 [facility] Comment on above: Order Comment: Speci men Type: BLOOD SPECIMENOrdering Facility: [facility] Address: [address] [place] [address] Performed By: #### 5 7021-8 ####[facility] LABCLIA [id number] [place] [address] [place] Hematocrit (Bld) [Volume fraction] 41.3 % Normal 36.0-46.0 [facility] Comment on above: Order Comment: Speci men Type: BLOOD SPECIMENOrdering Facility: [facility] Address: [address] [place] [address] Performed By: #### 5 7021-8 ####[facility] LABIA [id number] [place] [address] [place] Hemoglobin (Bld) [Mass/Vol] 13.7 g/dL Normal 11.5-15.5 [facility] Comment on above: Order Comment: Speci men Type: BLOOD SPECIMENOrdering Facility: [facility] Address: [address] [place] [address] Performed By: #### 5 7021-8 ####[facility] LABCLIA [id number] [place] [address] [place] Immature granulocytes (Bld) [#/Vol] 10*3/uL Normal <0.10 [facility] Comment on above: Order Comment: Speci men Type: BLOOD SPECIMENOrdering Facility: [facility] Address: [address] [place] [address] Performed By: #### 5 7021-8 ####[facility] LABCLIA [id number] [place] [address] [place] Immature granulocytes/100 WBC (Bld) 0.2 % Normal [facility] Comment on above: Order Comment: Speci men Type: BLOOD SPECIMENOrdering Facility: [facility] Address: [address] [place] [address] Performed By: #### 5 7021-8 ####[facility] LABCLIA [id number] [place] [address] [place] Lymphocytes (Bld) [#/Vol] 1.12 10*3/uL Normal 1.00-4.00 [facility] Comment on above: Order Comment: Speci men Type: BLOOD SPECIMENOrdering Facility: [facility] Address: [address] [place] [address] Performed By: #### 5 7021-8 ####[facility] LABCLIA [id number] [place] [address] [place] Lymphocytes/100 WBC (Bld) 27.5 % Normal [facility] Comment on above: Order Comment: Speci men Type: BLOOD SPECIMENOrdering Facility: [facility] Address: [address] [place] [address] Performed By: #### 5 7021-8 ####[facility] LABCLIA [id number] [place] [address] [place] MCH (RBC) [Entitic mass] 35.1 pg High 26.0-34.0 [facility] Comment on above: Order Comment: Speci men Type: BLOOD SPECIMENOrdering Facility: [facility] Address: [address] [place] [address] Performed By: #### 5 7021-8 ####[facility] LABCLIA [id number] [place] [address] [place] MCHC (RBC) [Mass/Vol] 33.2 g/dL Normal 30.5-36.0 [facility] Comment on above: Order Comment: Speci men Type: BLOOD SPECIMENOrdering Facility: [facility] Address: [address] [place] [address] Performed By: #### 5 7021-8 ####[facility] LABCLIA [id number] [place] [address] [place] MCV (RBC) [Entitic vol] 105.9 fL High 80.0-100.0 [facility] Comment on above: Order Comment: Speci men Type: BLOOD SPECIMENOrdering Facility: [facility] Address: [address] [place] [address] Performed By: #### 5 7021-8 ####[facility] LABCLIA [id number] [place] [address] [place] Monocytes (Bld) [#/Vol] 0.25 10*3/uL Normal <0.87 [facility] Comment on above: Order Comment: Speci men Type: BLOOD SPECIMENOrdering Facility: [facility] Address: [address] [place] [address] Performed By: #### 5 7021-8 ####[facility] LABCLIA [id number] [place] [address] [place] Monocytes/100 WBC (Bld) 6.1 % Normal [facility] Comment on above: Order Comment: Speci men Type: BLOOD SPECIMENOrdering Facility: [facility] Address: [address] [place] [address] Performed By: #### 5 7021-8 ####[facility] LABCLIA [id number] [place] [address] [place] Neutrophils (Bld) [#/Vol] 2.52 10*3/uL Normal 1.45-7.50 [facility] Comment on above: Order Comment: Speci men Type: BLOOD SPECIMENOrdering Facility: [facility] Address: [address] [place] [address] Performed By: #### 5 7021-8 ####[facility] LABCLIA [id number] [place] [address] [place] Neutrophils/100 WBC (Bld) 62.0 % Normal [facility] Comment on above: Order Comment: Speci men Type: BLOOD SPECIMENOrdering Facility: [facility] Address: [address] [place] [address] Performed By: #### 5 7021-8 ####[facility] LABCLIA [id number] [place] [address] [place] Nucleated RBC (Bld) [#/Vol] 10*3/uL Normal <0.01 [facility] Comment on above: Order Comment: Speci men Type: BLOOD SPECIMENOrdering Facility: [facility] Address: [address] [place] [address] Performed By: #### 5 7021-8 ####[facility] LABCLIA [id number] [place] [address] [place] Nucleated RBC/100 WBC (Bld) [Ratio] 0.0 /100 WBC Normal [facility] Comment on above: Order Comment: Speci men Type: BLOOD SPECIMENOrdering Facility: [facility] Address: [address] [place] [address] Performed By: #### 5 7021-8 ####[facility] LABCLIA [id number] [place] [address] [place] Platelet mean volume (Bld) [Entitic vol] 10.7 fL Normal 9.0-12.7 [facility] Comment on above: Order Comment: Speci men Type: BLOOD SPECIMENOrdering Facility: [facility] Address: [address] [place] [address] Performed By: #### 5 7021-8 ####[facility] LABCLIA [id number] [place] [address] [place] Platelets (Bld) [#/Vol] 197 10*3/uL Normal 150-400 [facility] Comment on above: Order Comment: Speci men Type: BLOOD SPECIMENOrdering Facility: [facility] Address: [address] [place] [address] Performed By: #### 5 7021-8 ####[facility] LABCLIA [id number] [address] [address] [place] RBC (Bld) [#/Vol] 3.90 10*6/uL Normal 3.90-5.20 [facility] Comment on above: Order Comment: Speci men Type: BLOOD SPECIMENOrdering Facility: [facility] Address: [address] [place] [address] Performed By: #### 5 7021-8 ####[facility] LABCLIA [id number] [place] [address] [place] WBC (Bld) [#/Vol] 4.07 10*3/uL Normal 3.70-11.00 [facility] Comment on above: Order Comment: Speci men Type: BLOOD SPECIMENOrdering Facility: [facility] Address: [address] [place] [address] Performed By: #### 5 7021-8 ####[facility] LABCLIA [id number] [place] [address] [place] Comprehensive metabolic 2000 panelon 09-14-2024 Albumin [Mass/Vol] 4.7 g/dL Normal 3.9-4.9 [facility] Comment on above: Order Comment: Speci men Type: BLOOD SPECIMENOrdering Facility: [facility] Address: [address] [place] [address] Performed By: #### 3 016-3, 16647-3, LIPNF, 93404-7 ####[facility] LABCLIA [id number] [place] [address] [place] ALP [Catalytic activity/Vol] 90 U/L Normal 34-123 [facility] Comment on above: Order Comment: Speci men Type: BLOOD SPECIMENOrdering Facility: [facility] Address: [address] [place] [address] Performed By: #### 3 016-3, 02494-3, LIPNF, 04858-8 ####[facility] LABCLIA [id number] [place] [address] [place] ALT [Catalytic activity/Vol] 16 U/L Normal 7-38 [facility] Comment on above: Order Comment: Speci men Type: BLOOD SPECIMENOrdering Facility: [facility] Address: [address] [place] [address] Performed By: #### 3 016-3, 02376-9, LIPNF, 74817-8 ####[facility] LABCLIA [id number] [place] [address] [place] Anion gap [Moles/Vol] 9 mmol/L Normal 8-15 [facility] Comment on above: Order Comment: Speci men Type: BLOOD SPECIMENOrdering Facility: [facility] Address: [address] [place] [address] Performed By: #### 3 016-3, 88278-2, LIPNF, 58442-5 ####[facility] LABIA [id number] [place] [address] [place] AST [Catalytic activity/Vol] 31 U/L Normal 13-35 [facility] Comment on above: Order Comment: Speci men Type: BLOOD SPECIMENOrdering Facility: [facility] Address: [address] [place] [address] Performed By: #### 3 016-3, 14220-0, LIPNF, 82856-9 ####[facility] LABCLIA [id number] [place] [address] [place] Bilirubin [Mass/Vol] 0.5 mg/dL Normal 0.2-1.3 [facility] Comment on above: Order Comment: Speci men Type: BLOOD SPECIMENOrdering Facility: [facility] Address: [address] [place] [address] Performed By: #### 3 016-3, 34600-6, LIPNF, ####[facility] LABCLIA [id number] [place] [id number] [place] Calcium [Mass/Vol] 9.7 mg/dL Normal 8.5-10.2 [facility] Comment on above: Order Comment: Speci men Type: BLOOD SPECIMENOrdering Facility: [facility] Address: [address] [place] [address] Performed By: #### 3 016-3, 96230-3, LIPNF, ####[facility] LABCLIA [id number] [place] [address] [place] Chloride [Moles/Vol] 105 mmol/L Normal 98-107 [facility] Comment on above: Order Comment: Speci men Type: BLOOD SPECIMENOrdering Facility: [facility] Address: [address] [place] [address] Performed By: #### 3 016-3, 10978-5, LIPNF, ####[facility] LABCLIA [id number] [place] [address] [place] CO2 [Moles/Vol] 28 mmol/L Normal 22-30 [facility] Comment on above: Order Comment: Speci men Type: BLOOD SPECIMENOrdering Facility: [facility] Address: [address] [place] [address] Performed By: #### 3 016-3, 01347-9, LIPNF, ####[facility] LABCLIA [id number] [place] [address] [place] Creatinine [Mass/Vol] 0.75 mg/dL Normal 0.58-0.96 [facility] Comment on above: Order Comment: Speci men Type: BLOOD SPECIMENOrdering Facility: [facility] Address: [address] [place] [address] Performed By: #### 3 016-3, 80612-5, NIA, 98988-1 ####[facility] LABCLIA [id number] [place] [address] [place] Creatinine and Glomerular filtration rate.predicted panel (S/P/Bld) 86 mL/min/1.73m??? Normal >=60 [facility] Comment on above: Order Comment: Edith childs Type: BLOOD SPECIMENOrdering Facility: [facility] Address: [address] [place] [address] Result Comment: Niru mated Glomerular Filtration Rate [...] accurately reflect actual GFR. Performed By: #### 3 016-3, 42165-9, NIA, 31197-5 ####[facility] LABCLIA [id number] [place] [address] [place] Glucose [Mass/Vol] 112 mg/dL High 74-99 [facility] Comment on above: Order Comment: Edith childs Type: BLOOD SPECIMENOrdering Facility: [facility] Address: [address] [place] [address] Result Comment: The [place] Diabetes Association (ADA) provides guidance for cutoff [...] Standards of Medical Care in Diabetes 2016, [place] Diabetes Association. Diabetes Care. 2016.39(Suppl 1). Performed By: #### 3 016-3, 10598-4, LIPNF, ####[facility] LABCLIA [id number] [address] [address] [place] Potassium [Moles/Vol] 4.4 mmol/L Normal 3.7-5.1 [facility] Comment on above: Order Comment: Speci men Type: BLOOD SPECIMENOrdering Facility: [facility] Address: [address] [place] [address] Performed By: #### 3 016-3, 48217-3, LIPNF, ####[facility] LABCLIA [id number] [place] [address] [place] Protein [Mass/Vol] 7.2 g/dL Normal 6.3-8.0 [facility] Comment on above: Order Comment: Speci men Type: BLOOD SPECIMENOrdering Facility: [facility] Address: [address] [place] [address] Performed By: #### 3 016-3, 46977-8, LIPNF, ####[facility] LABCLIA [id number] [place] [address] [place] Sodium [Moles/Vol] 142 mmol/L Normal 136-144 [facility] Comment on above: Order Comment: Speci men Type: BLOOD SPECIMENOrdering Facility: [facility] Address: [address] [place] [address] Performed By: #### 3 016-3, 12350-4, LIPNF, ####[facility] LABCLIA [id number] [address] [address] [place] Urea nitrogen [Mass/Vol] 19 mg/dL Normal 7-21 [facility] Comment on above: Order Comment: Speci men Type: BLOOD SPECIMENOrdering Facility: [facility] Address: [address] [place] [address] Performed By: #### 3 016-3, 28333-8, LIPNF, ####[facility] LABCLIA [id number] [address] [place] HbA1c (Bld)on 09-14-2024 Average glucose Estimated from glycated hemoglobin (Bld) [Mass/Vol] 117 mg/dL Normal [facility] Comment on above: Order Comment: Edith childs Type: BLOOD SPECIMENOrdering Facility: [facility] Address: [address] [place] [address] Result Comment: eAG: (Estimated average glucose) is a calculated value from HgbA1c and is independent sales representative of the average blood glucose level in the last 2-3 month period. Performed By: #### 5 5454-3 ####[facility] LABIA [id number] [address] OF [facility] HbA1c (Bld) [Mass fraction] 5.7 % High 4.3-5.6 [facility] Comment on above: Order Comment: Edith childs Type: BLOOD SPECIMENOrdering Facility: [facility] Address: [address] [place] [address] Result Comment: [place] Diabetes Association guidelines indicate that patients with HgbA1c in the range 5.7-6.4% are at increased risk for development of diabetes, and intervention by lifestyle modification may be beneficial. HgbA1c greater or equal to 6.5% is considered diagnostic of diabetes. Performed By: #### 5 5454-3 ####[facility] LABIA [id number] [address] [place] LIPID PANEL, NONFASTINGon Cholesterol [Mass/Vol] 184 mg/dL Normal <200 [facility] Comment on above: Order Comment: Edith childs Type: BLOOD SPECIMENOrdering Facility: [facility] Address: [address] [place] [address] Result Comment: <200 mg/dL, Desirable 200-239 mg/dL, Borderline high >239 mg/dL, High Performed By: #### 3 016-3, 91883-8, LIPNF, 95846-4 ####[facility] LABCLIA [id number] [place] [address] [place] HDL CHOLESTEROL, NF 49 mg/dL Normal >39 [facility] Comment on above: Order Comment: Hayi men Type: BLOOD SPECIMENOrdering Facility: [facility] Address: [address] [place] [address] Result Comment: 40-5 9 mg/dL, Acceptable >59 mg/dL, High: Negative risk factor for coronary heart disease <40 mg/dL, Low: Positive risk factor for coronary heart disease Performed By: #### 3 016-3, 40683-1, LIPNF, ####[facility] LABCLIA [id number] [place] [address] [place] LDL CHOLESTEROL, NF 114 mg/dL High <100 [facility] Comment on above: Order Comment: Hayi men Type: BLOOD SPECIMENOrdering Facility: [facility] Address: [address] [place] [address] Result Comment: <100 mg/dL, Optimal 100-129 mg/dL, Near optimal/above optimal 130-159 mg/dL, Borderline high 160-189 mg/dL, High >189 mg/dL, Very high Secondary prevention optimal LDL Cholesterol levels are recommended to be < 70 mg/dL Performed By: #### 3 016-3, 45335-6, LIPNF, ####[facility] LABCLIA [id number] [address] [place] LDL/HDL RATIO, NF 2.33 mg/dL Normal <2.54 [facility] Comment on above: Order Comment: Speci men Type: BLOOD SPECIMENOrdering Facility: [facility] Address: [address] [place] [address] Result Comment: Refe rence: 1. National Cholesterol Education Program ATP III Guideline At-A-Glance Quick Desk Reference: National Heart, Lung, and Blood [place]. National Institutes of Health. 2001: NIH Publication No. 01-3305. 2. An International Atherosclerosis Society position paper: global recommendations for the management of dyslipidemia: executive summary, Atherosclerosis. 2014: 232(2):410-413. Performed By: #### 3 016-3, 25908-7, LIPNF, 15825-8 ####[facility] LABCLIA [id number] [place] [address] [place] NON HDL CHOL, NF 135 mg/dL High <130 [facility] Comment on above: Order Comment: Speci men Type: BLOOD SPECIMENOrdering Facility: [facility] Address: [address] [place] [address] Result Comment: <130 mg/dL, Optimal 130-159 mg/dL, Near optimal/above optimal 160-189 mg/dL, Borderline high 190-219 mg/dL, High >219 mg/dL, Very high Secondary prevention optimal non HDL Cholesterol levels are recommended to be <100 mg/dL Performed By: #### 3 016-3, 02912-4, LIPNF, ####[facility] LABCLIA [id number] [place] [address] [place] T CHOL/HDL RATIO NF 3.76 mg/dL Normal <5.10 [facility] Comment on above: Order Comment: Speci men Type: BLOOD SPECIMENOrdering Facility: [facility] Address: [address] [place] [address] Performed By: #### 3 016-3, 74199-4, LIPNF, ####[facility] LABCLIA [id number] [place] [address] [place] TRIGLYCERIDES, NF 106 mg/dL Normal <150 [facility] Comment on above: Order Comment: Speci men Type: BLOOD SPECIMENOrdering Facility: [facility] Address: [address] [place] [address] Result Comment: <150 mg/dL, Normal 150-199 mg/dL, Borderline high 200-499 mg/dL, High >499 mg/dL, Very high Performed By: #### 3 016-3, 65564-0, LIPNF, ####[facility] LABCLIA [id number] [place] [address] [place] VLDL CHOLESTEROL, NF 21 mg/dL Normal <30 [facility] Comment on above: Order Comment: Speci men Type: BLOOD SPECIMENOrdering Facility: [facility] Address: [address] [place] [address] Performed By: #### 3 016-3, 49386-2, LIPNF, 96633-4 ####[facility] LABIA [id number] [place] [address] [place] Magnesium SerPl-mCncon 09-14 Magnesium [Mass/Vol] 2.3 mg/dL Normal 1.7-2.3 [facility] Comment on above: Order Comment: Speci men Type: BLOOD SPECIMENOrdering Facility: [facility] Address: [address] [place] [address] Performed By: #### 3 016-3, 43772-8, LIPNF, ####[facility] LABIA [id number] [place] [address] [place] TSH SerPl-aCncon 09-14-2024 TSH Qn 2.520 m[IU]/L Normal 0.270-4.20 0 [facility] Comment on above: Order Comment: Speci men Type: BLOOD SPECIMENOrdering Facility: [facility] Address: [address] [place] [address] Performed By: #### 3 016-3, 59509-4, LIPNF, ####[facility] LABIA [id number] [place] [address] [place] Urinalysis complete panel (U )on 09-14-2024 Bacteria LM.HPF (Urine sed) [#/Area] Negative Normal Negative [facility] Comment on above: Order Comment: Speci men Type: URINE SPECIMENOrdering Facility: [facility] Address: [address] [place] [address] Performed By: #### 2 4356-8 ####[facility] LABCLIA [id number] [place] [address] [place] Bilirubin Ql (U) Negative Normal Negative [facility] Comment on above: Order Comment: Speci men Type: URINE SPECIMENOrdering Facility: [facility] Address: [address] [place] [address] Performed By: #### 2 4356-8 ####[facility] LABCLIA [id number] [place] [address] [place] Clarity (Unsp spec) Clear Normal Clear [facility] Comment on above: Order Comment: Speci men Type: URINE SPECIMENOrdering Facility: [facility] Address: [address] [place] [address] Performed By: #### 2 4356-8 ####[facility] [facility] [id number] [address] STATES OF [facility] Color (U) Yellow Normal Yellow [facility] Comment on above: Order Comment: Speci men Type: URINE SPECIMENOrdering Facility: [facility] Address: [address] [place] [address] Performed By: #### 2 4356-8 ####[facility] LABIA [id number] [place] [address] [place] Epithelial cells LM.HPF (Urine sed) [#/Area] None Seen Normal [facility] Comment on above: Order Comment: Speci men Type: URINE SPECIMENOrdering Facility: [facility] Address: [address] [place] [address] Performed By: #### 2 4356-8 ####[facility] LABIA [id number] [place] [address] [place] Glucose Test strip (U) [Mass/Vol] Negative Normal Negative [facility] Comment on above: Order Comment: Speci men Type: URINE SPECIMENOrdering Facility: [facility] Address: [address] [place] [address] Performed By: #### 2 4356-8 ####[facility] LABCLIA [id number] [place] [address] [place] Hemoglobin Ql (U) Negative Normal Negative [facility] Comment on above: Order Comment: Speci men Type: URINE SPECIMENOrdering Facility: [facility] Address: [address] [place] [address] Performed By: #### 2 4356-8 ####[facility] LABCLIA [id number] [place] [address] [place] Hyaline casts (Urine sed) [#/Area] 0 /[LPF] Normal 0 /LPF [facility] Comment on above: Order Comment: Speci men Type: URINE SPECIMENOrdering Facility: [facility] Address: [address] [place] [address] Performed By: #### 2 4356-8 ####[facility] LABCLIA [id number] [place] [address] [place] Ketones Ql (U) Negative Normal Negative [facility] Comment on above: Order Comment: Speci men Type: URINE SPECIMENOrdering Facility: [facility] Address: [address] [place] [address] Performed By: #### 2 4356-8 ####[facility] LABCLIA [id number] [place] [address] [place] Leukocyte esterase Test strip Ql (U) Trace Abnormal Negative [facility] Comment on above: Order Comment: Speci men Type: URINE SPECIMENOrdering Facility: [facility] Address: [address] [place] [address] Performed By: #### 2 4356-8 ####[facility] LABCLIA [id number] [place] [address] [place] Nitrite Ql (U) Negative Normal Negative [facility] Comment on above: Order Comment: Speci men Type: URINE SPECIMENOrdering Facility: [facility] Address: [address] [place] [address] Performed By: #### 2 4356-8 ####[facility] LABCLIA [id number] [place] [address] [place] pH (U) 6.0 [pH] Normal <8.5 [facility] Comment on above: Order Comment: Speci men Type: URINE SPECIMENOrdering Facility: [facility] Address: [address] [place] [address] Performed By: #### 2 4356-8 ####[facility] LABCLIA [id number] [place] [address] [place] Protein (U) [Mass/Vol] Negative Normal Negative [facility] Comment on above: Order Comment: Speci men Type: URINE SPECIMENOrdering Facility: [facility] Address: [address] [place] [address] Performed By: #### 2 4356-8 ####[facility] LABCLIA [id number] [place] [address] [place] RBC LM.HPF (Urine sed) [#/Area] 0-2 /HPF Normal 0-2 /HPF [facility] Comment on above: Order Comment: Speci men Type: URINE SPECIMENOrdering Facility: [facility] Address: [address] [place] [address] Performed By: #### 2 4356-8 ####[facility] LABCLIA [id number] [place] [address] [place] Specific gravity (U) [Rel density] 1.011 Normal 1.005-1.03 0 [facility] Comment on above: Order Comment: Speci men Type: URINE SPECIMENOrdering Facility: [facility] Address: [address] [place] [address] Performed By: #### 2 4356-8 ####[facility] LABCLIA [id number] [place] [address] [place] Urobilinogen Ql (U) 0.2 EU/dL Normal 0.2-1.0 EU/dL [facility] Comment on above: Order Comment: Speci men Type: URINE SPECIMENOrdering Facility: [facility] Address: [address] [place] [address] Performed By: #### 2 4356-8 ####[facility] LABIA [id number] [place] [address] [place] WBC LM.HPF (Urine sed) [#/Area] 0-5 /HPF Normal 0-5 /HPF [facility] Comment on above: Order Comment: Speci men Type: URINE SPECIMENOrdering Facility: [facility] Address: [address] [place] [address] Performed By: #### 2 4356-8 ####[facility] LABIA [id number] [place] [address] [place] Vit B12 [facility] 23-2 025 Cobalamin (Vitamin B12) [Mass/Vol] 840 pg/mL Normal 232-1245 [facility] Comment on above: Order Comment: Speci men Type: BLOOD SPECIMENOrdering Facility: [facility] Address: [address] [place] [address] Performed By: #### 2 132-9 ####[facility] LABIA [id number] [place] [address] [place] CNPLoren 08-11-2024 CNPN Telephone (FAMPWS) ELISHA GODFREY ([id number]) 1955 F Date Time Provider Department 08/11/24 KADE FRY FAMPWS During your visit today, [...] capsuleRfl: 0 VITAMIN B12 [SQB12] Order #: [id number] FUTURE COMPREHENSIVE METABOLIC PANEL [SQCMP] Order #: [id number] FUTURE HEMOGLOBIN A1C [IIJZF8Y] Order #: [id number] FUTURE THYROID STIMULATING HORMONE [SQTSH] Order #: [id number] FUTURE URINALYSIS, WITH MICROSCOPIC [SQUAWMIC] Order #: [id number] FUTURE LIPID PANEL, NONFASTING [SQLIPNF] Order #: [id number] FUTURE MAGNESIUM [SQMG1] Order #: [id number] FUTURE COMPLETE BLOOD COUNT AND DIFFERENTIAL [SQCBCDIF] Order #: [id number] FUTURE Prescriptions as of 08/11/2024 - ramipril [...] ALLERGY) 32 mcg/actuation nasal spray Use 1 [place] in each nostril once daily. - fexofenadine [...] incontinence [N39* (more content not included)... Normal [facility] CBC W/Diff, Automatedon 06-24 Absolute Lymph 1.01 X10 3/uL Normal 0.83-4.51 [facility] Comment on above: Performed By: #### L 100.0100, L500.4050 ####[facility] [address] [place], [address] Absolute Neut 2.5 X10 3/uL Normal 2.0-7.7 [facility] Comment on above: Performed By: #### L 100.0100, L500.4050 ####[facility] [address] [place], [address] Basophils/100 WBC (Bld) 0.8 % Normal 0-1 [facility] Comment on above: Performed By: #### L 100.0100, L500.4050 ####[facility] [address] [place], [address] Eosinophils/100 WBC (Bld) 2.3 % Normal 0-5 [facility] Comment on above: Performed By: #### L 100.0100, L500.4050 ####[facility] [address] [place], [address] Erythrocyte distribution width (RBC) [Ratio] 12.6 % Normal 11.6-14.6 [facility] Comment on above: Performed By: #### L 100.0100, L500.4050 ####[facility] [address] [place], [address] Hematocrit (Bld) [Volume fraction] 41.3 % Normal 37-47 [facility] Comment on above: Performed By: #### L 100.0100, L500.4050 ####[facility] [address] [place], [address] Hemoglobin (Bld) [Mass/Vol] 14.1 g/dL Normal 12.0-15.0 [facility] Comment on above: Performed By: #### L 100.0100, L500.4050 ####[facility] [address] [place], [address] IG% 0.500 Normal 0.0-0.9 [facility] Comment on above: Result Comment: IG% - Immature Granulocytes (promyelocytes, myelocytes and metamyelocytes) > 1% indicates that a LEFT SHIFT is Present. Performed By: #### L 100.0100, L500.4050 ####[facility] [address] [place], [address] Lymphocytes/100 WBC (Bld) 26.2 % Normal 19-41 [facility] Comment on above: Performed By: #### L 100.0100, L500.4050 ####[facility] [address] [place], [address] MCH (RBC) [Entitic mass] 35.7 pg High 27.0-32.0 [facility] Comment on above: Performed By: #### L 100.0100, L500.4050 ####[facility] [address] [place], [address] MCHC (RBC) [Mass/Vol] 34.1 g/dL Normal 32-36 [facility] Comment on above: Performed By: #### L 100.0100, L500.4050 ####[facility] [address] [place], [address] MCV (RBC) [Entitic vol] 104.6 fL High 81-99 [facility] Comment on above: Performed By: #### L 100.0100, L500.4050 ####[facility] [address] [place], [address] Monocytes/100 WBC (Bld) 5.5 % Normal 0-10 [facility] Comment on above: Performed By: #### L 100.0100, L500.4050 ####[facility] [address] [place], [address] Neutrophils/100 WBC (Bld) 64.7 % Normal 47-70 [facility] Comment on above: Performed By: #### L 100.0100, L500.4050 ####[facility] [address] [place], [address] Nucleated RBC (Bld) [#/Vol] 0 10*3/uL Normal 0-5 [facility] Comment on above: Performed By: #### L 100.0100, L500.4050 ####[facility] [address] [place], [address] Platelet mean volume (Bld) [Entitic vol] 10.2 fL Normal 6.2-12.0 [facility] Comment on above: Performed By: #### L 100.0100, L500.4050 ####[facility] [address] [place], [address] Platelets (Bld) [#/Vol] 179 10*3/uL Normal 150-450 [facility] Comment on above: Performed By: #### L 100.0100, L500.4050 ####[facility] [address] [place], [address] RBC (Bld) [#/Vol] 3.95 10*6/uL Low 4.2-5.4 [facility] Comment on above: Performed By: #### L 100.0100, L500.4050 ####[facility] [address] [place], [address] RDW SD 48.3 fl High 35.1-43.9 [facility] Comment on above: Performed By: #### L 100.0100, L500.4050 ####[facility] [address] [place], [address] WBC (Bld) [#/Vol] 3.9 10*3/uL Low 4.4-11.0 [facility] Comment on above: Performed By: #### L 100.0100, L500.4050 ####[facility] [address] [place], [address] Comprehensive Metabolic Prof [facility] 07-14-2024 Albumin [Mass/Vol] 4.0 g/dL Normal 3.2-5.0 [facility] Comment on above: Performed By: #### L 100.0100, L500.4050 ####[facility] [address] [place], [address] Albumin/Globulin [Mass ratio] 1.2 {ratio} Normal 0.9-2.4 [facility] Comment on above: Performed By: #### L 100.0100, L500.4050 ####[facility] [address] [place], [address] ALK P 81 U/L Normal 45-117 [facility] Comment on above: Performed By: #### L 100.0100, L500.4050 ####[facility] [address] [place], [address] ALT [Catalytic activity/Vol] 18 U/L Normal 13-56 [facility] Comment on above: Performed By: #### L 100.0100, L500.4050 ####[facility] [address] [place], [address] AST [Catalytic activity/Vol] 17 U/L Normal 15-37 [facility] Comment on above: Performed By: #### L 100.0100, L500.4050 ####[facility] [address] [place], [address] Bilirubin [Mass/Vol] 0.60 mg/dL Normal 0.20-1.00 [facility] Comment on above: Result Comment: For patients on eltrombopag therapy, use of Dimension [place] TBIL is not recommended. Performed By: #### L 100.0100, L500.4050 ####[facility] [address] [place], [address] BUN/CRE 20.1 RATIO High 10-20 [facility] Comment on above: Performed By: #### L 100.0100, L500.4050 ####[facility] [address] [place], [address] CA,Total 9.2 mg/dL Normal 8.5-10.1 [facility] Comment on above: Performed By: #### L 100.0100, L500.4050 ####[facility] [address] [place], [address] Chloride [Moles/Vol] 104 mmol/L Normal 98-107 [facility] Comment on above: Performed By: #### L 100.0100, L500.4050 ####[facility] [address] [place], [address] CO2 [Moles/Vol] 29.0 mmol/L Normal 21.0-32.0 [facility] Comment on above: Performed By: #### L 100.0100, L500.4050 ####[facility] [address] [place], [address] Creatinine [Mass/Vol] 0.85 mg/dL Normal 0.55-1.02 [facility] Comment on above: Result Comment: The validity of the calculated GFR GFRAA in patients over 70 years has not been determined. Clinical correlation is essential. Performed By: #### L 100.0100, L500.4050 ####[facility] [address] [place], [address] EST GFR - AA 85 mL/min Normal >60 [facility] Comment on above: Result Comment: Afri can [place]ic GFR Calc Performed By: #### L 100.0100, L500.4050 ####[facility] [address] [place], [address] GAP 6 Normal 5-15 [facility] Comment on above: Performed By: #### L 100.0100, L500.4050 ####[facility] [address] [place], [address] GFR/1.73 sq M.predicted among non-blacks MDRD (S/P/Bld) [Vol rate/Area] 71 mL/min/{1.73_m2} Normal >60 [facility] Comment on above: Result Comment: Non- GFR Calc Performed By: #### L 100.0100, L500.4050 ####[facility] [address] [place], [address] Globulin (S) [Mass/Vol] 3.3 g/dL Normal 2.2-4.2 [facility] Comment on above: Performed By: #### L 100.0100, L500.4050 ####[facility] [address] [place], [address] Glucose [Mass/Vol] 193 mg/dL High 74-106 [facility] Comment on above: Result Comment: Fast ing Glucose result greater than or equal to 126 mg/dL suggests DIABETES MELLITUS per A.D.A. criteria. Performed By: #### L 100.0100, L500.4050 ####[facility] [address] [place], [address] Potassium [Moles/Vol] 3.6 mmol/L Normal 3.5-5.1 [facility] Comment on above: Performed By: #### L 100.0100, L500.4050 ####[facility] [address] [place], [address] Sodium [Moles/Vol] 140 mmol/L Normal 136-145 [facility] Comment on above: Performed By: #### L 100.0100, L500.4050 ####[facility] [address] [place], [address] T PROT 7.3 g/dL Normal 6.4-8.2 [facility] Comment on above: Performed By: #### L 100.0100, L500.4050 ####[facility] [address] [place], [address] Urea nitrogen [Mass/Vol] 17 mg/dL Normal 7-18 [facility] Comment on above: Performed By: #### L 100.0100, L500.4050 ####[facility] [address] [place], [address] MG Breast Screeningon 2023 [facility] Absolute lymphocyte countOrd ered By: Dina Ferrer on 10-22-2023 Lymphocytes Auto (Unsp spec) [#/Vol] 0.62 10*3/uL 0.83-4.51 [facility] Automated lymphocyte count a s percentage of total leukocytesOrdered By: Dina Ferrer on 10-22-2023 Lymphocytes/100 WBC Auto (Unsp spec) 18.0 % 19-41 [facility] Basophil percentageOrdered B y: Dina Ferrer on 10-22-2023 Basophils/100 WBC (Bld) 0.9 % 0-1 [facility] Bilirubin [Mass/Vol] 0.70 mg/dL 0.20-1.00 [facility] Comment on above: For patients on eltr ombopag therapy, use of Dimension [place] TBIL is not recommended. Chloride [Moles/Vol] 106 mmol/L 98-107 [facility] Eosinophils/100 WBC (Bld) 3.2 % 0-5 [facility] Glucose [Mass/Vol] 128 mg/dL 74-106 [facility] Comment on above: Fasting Glucose resu lt greater than or equal to 126 mg/dL suggests DIABETES MELLITUS per A.D.A. criteria. Hemoglobin (Bld) [Mass/Vol] 13.2 g/dL 12.0-15.0 [facility] Monocytes/100 WBC (Bld) 6.7 % 0-10 [facility] Neutrophils (Bld) [#/Vol] 2.5 10*3/uL 2.0-7.7 [facility] Neutrophils/100 WBC (Bld) 70.9 % 47-70 [facility] Potassium [Moles/Vol] 4.0 mmol/L 3.5-5.1 [facility] Protein [Mass/Vol] 7.0 g/dL 6.4-8.2 [facility] Sodium [Moles/Vol] 140 mmol/L 136-145 [facility] WBC (Bld) [#/Vol] 3.5 10*3/uL 4.4-11.0 [facility] Determination of erythrocyte mean corpuscular volume (MCV)Ordered By: Dina Ferrer on 10-22-2023 MCV (RBC) [Entitic vol] 104.9 fL 81-99 [facility] Erythrocyte distribution wid th ratioOrdered By: Dina Ferrer on 10-22-2023 Erythrocyte distribution width (RBC) [Ratio] 12.7 % 11.6-14.6 [facility] Erythrocyte distribution wid th standard deviationOrdered By: [facility] Nabil on 10-22-2023 Erythrocyte distribution width (RBC) [Entitic vol] 48.8 fL 35.1-43.9 [facility] Hematocrit Auto (Bld) [Volum e fraction]Ordered By: [facility] Nabil on 10-22-2023 Hematocrit (Bld) [Volume fraction] 40.7 % 37-47 [facility] Immature granulocytes/100 WB C Auto (Bld)Ordered By: [facility] Nabil on 10-22-2023 Immature granulocytes/100 WBC (Bld) 0.300 % 0.0-0.9 [facility] Comment on above: IG% - Immature Granu locytes (promyelocytes, myelocytes and metamyelocytes) > 1% indicates that a LEFT SHIFT is Present. Laboratory - Chemistry and C hemistry - challengeOrdered By: Dinadahiana Ferrer on 10-22-2023 Albumin/Globulin [Mass ratio] 1.3 {ratio} 0.9-2.4 [facility] ALP [Catalytic activity/Vol] 86 U/L 45-117 [facility] ALT [Catalytic activity/Vol] 15 U/L 13-56 [facility] CO2 [Moles/Vol] 32.0 mmol/L 21.0-32.0 [facility] Globulin (S) [Mass/Vol] 3.1 g/dL 2.2-4.2 [facility] Urea nitrogen/Creatinine [Mass ratio] 18.2 mg/mg 10-20 [facility] Laboratory - Hematology and Cell countsOrdered By: [facility] Nabil on 10-22-2023 MCH (RBC) [Entitic mass] 34.0 pg 27.0-32.0 [facility] MCHC (RBC) [Mass/Vol] 32.4 g/dL 32-36 [facility] Nucleated RBC/100 WBC (Bld) [Ratio] 0 % 0-5 [facility] Platelet mean volume (Bld) [Entitic vol] 10.2 fL 6.2-12.0 [facility] Platelets (Bld) [#/Vol] 167 10*3/uL 150-450 [facility] No Panel InformationOrdered By: Dina Ferrer on 10-22-2023 Estimated GFR (MDRD) Amer 82 mL/min >60 [facility] Comment on above: GFR Calc Estimated GFR (MDRD) Non-Af Amer 68 mL/min >60 [facility] Comment on above: Non- GFR Calc RBC Auto (Bld) [#/Vol]Ordere d By: Dina Ferrer on 10-22-2023 RBC (Bld) [#/Vol] 3.88 10*6/uL 4.2-5.4 [facility] Serum or plasma calcium shira urement (mass/volume)Ordered By: Dina Ferrer on 10-22-2023 Calcium [Mass/Vol] 9.1 mg/dL 8.5-10.1 [facility] Serum or plasma creatinine m easurement (mass/volume)Ordered By: Dina Ferrer on 10-22-2023 Creatinine [Mass/Vol] 0.88 mg/dL 0.55-1.02 [facility] Comment on above: The validity of the calculated GFR & GFRAA in patients over 70 years has not been determined. Clinical correlation is essential. Serum or plasma urea nitroge n measurement (mass/volume)Ordered By: Dina Ferrer on 10-22-2023 Urea nitrogen [Mass/Vol] 16 mg/dL 7-18 [facility] Thin prep Papanicolaou smear with manual screeningOrdered By: Dina Ferrer on 10-22-2023 Thin prep Papanicolaou smear with manual screening 3.9 g/dL 3.2-5.0 [facility] Thin prep Papanicolaou smear with manual screening 15 U/L 15-37 [facility] Thin prep Papanicolaou smear with manual screening 2 5-15 [facility] XR Hand - left PA and Latera l and Obliqueon 08-24-2023 IMPRESSION: No acute osseous abnormality Senior Process Control Tech: PATO Transcribe Date/Time: Aug 24 2023 10:23A Dictated by : ZULMA ROE MD This examination was interpreted and the report reviewed and electronically signed by: ZULMA ROE MD on Aug 24 2023 10:24AM [facility] DIVISION OF RADIOLOGY * * *Final Report* [...] radiodense foreign body. DIVISION OF RADIOLOGY Provider, [facility] - 08/24/2023 * * *Final Report* * [...] body. IMPRESSION IMPRESSION: No acute osseous abnormality Senior Process Control Tech: PATO Transcribe Date/Time: Aug 24 2023 10:23A Dictated by : ZULMA ROE MD This examination was interpreted and the report reviewed and electronically signed by: ZULMA ROE MD on Aug 24 2023 10:24AM EST [facility] Radiology [facility]narrative[facility] [place] XR Hand - left PA and Latera l and ObliqueOrdered By: [facility] Provider on 08-24-2023 [facility] Absolute lymphocyte countOrd ered By: Dina Ferrer on 07-23-2023 Lymphocytes Auto (Unsp spec) [#/Vol] 0.92 10*3/uL 0.83-4.51 [facility] Basophil percentageOrdered B y: Dina Ferrer on 07-23-2023 Basophils/100 WBC (Bld) 0.6 % 0-1 [facility] Bilirubin [Mass/Vol] 0.80 mg/dL 0.20-1.00 [facility] Comment on above: For patients on eltr ombopag therapy, use of Dimension [place] TBIL is not recommended. Chloride [Moles/Vol] 106 mmol/L 98-107 [facility] Eosinophils/100 WBC (Bld) 3.4 % 0-5 [facility] Glucose [Mass/Vol] 103 mg/dL 74-106 [facility] Comment on above: Fasting Glucose resu lt from 100 to 125 mg/dL suggests IMPAIRED HOMEOSTASIS per A.D.A. criteria. Neutrophils (Bld) [#/Vol] 3.4 10*3/uL 2.0-7.7 [facility] Neutrophils/100 WBC (Bld) 70.7 % 47-70 [facility] Potassium [Moles/Vol] 3.7 mmol/L 3.5-5.1 [facility] Protein [Mass/Vol] 7.5 g/dL 6.4-8.2 [facility] Sodium [Moles/Vol] 141 mmol/L 136-145 [facility] WBC (Bld) [#/Vol] 4.8 10*3/uL 4.4-11.0 [facility] Blood erythrocytes count (nu mber/volume)Ordered By: Dina Ferrer on 07-23-2023 RBC (Bld) [#/Vol] 4.01 10*6/uL 4.2-5.4 [facility] Blood hemoglobin measurement (mass/volume)Ordered By: Dina Ferrer on 07-23-2023 Hemoglobin (Bld) [Mass/Vol] 13.9 g/dL 12.0-15.0 [facility] Blood lymphocytes/100 leukoc ytesOrdered By: Dina Ferrer on 07-23-2023 Lymphocytes/100 WBC (Bld) 19.4 % 19-41 [facility] Blood monocytes/100 leukocyt esOrdered By: Dina Ferrer on 07-23-2023 Monocytes/100 WBC (Bld) 5.7 % 0-10 [facility] Blood platelet mean volumeOr dered By: Dina Ferrer on 07-23-2023 Platelet mean volume (Bld) [Entitic vol] 10.2 fL 6.2-12.0 [facility] Determination of erythrocyte mean corpuscular volume (MCV)Ordered By: Dina Ferrer on 07-23-2023 MCV (RBC) [Entitic vol] 107.2 fL 81-99 [facility] Hematocrit Auto (Bld) [Volum e fraction]Ordered By: Dina Ferrer on 07-23-2023 Hematocrit (Bld) [Volume fraction] 43.0 % 37-47 [facility] Laboratory - Chemistry and C hemistry - challengeOrdered By: Dina Ferrer on 07-23-2023 ALP [Catalytic activity/Vol] 83 U/L 45-117 [facility] ALT [Catalytic activity/Vol] 17 U/L 13-56 [facility] CO2 [Moles/Vol] 31.0 mmol/L 21.0-32.0 [facility] Globulin (S) [Mass/Vol] 3.5 g/dL 2.2-4.2 [facility] Urea nitrogen/Creatinine [Mass ratio] 21.1 mg/mg 10-20 [facility] Laboratory - Hematology and Cell countsOrdered By: Dinadahiana Ferrer on 07-23-2023 Erythrocyte distribution width (RBC) [Entitic vol] 50.3 fL 35.1-43.9 [facility] Erythrocyte distribution width (RBC) [Ratio] 12.7 % 11.6-14.6 [facility] Immature granulocytes/100 WBC (Bld) 0.200 % 0.0-0.9 [facility] Comment on above: IG% - Immature Granu locytes (promyelocytes, myelocytes and metamyelocytes) > 1% indicates that a LEFT SHIFT is Present. MCH (RBC) [Entitic mass] 34.7 pg 27.0-32.0 [facility] Nucleated RBC/100 WBC (Bld) [Ratio] 0 % 0-5 [facility] MCHC Auto (RBC) [Mass/Vol]Or dered By: Dina Ferrer on 07-23-2023 MCHC (RBC) [Mass/Vol] 32.3 g/dL 32-36 [facility] No Panel InformationOrdered By: Dinadahiana Ferrer on 07-23-2023 Estimated GFR (MDRD) Amer 85 mL/min >60 [facility] Comment on above: GFR Calc Estimated GFR (MDRD) Non-Af Amer 70 mL/min >60 [facility] Comment on above: Non- GFR Calc Platelets bldOrdered By: Issac Ferrer on 07-23-2023 Platelets (Bld) [#/Vol] 196 10*3/uL 150-450 [facility] Serum or plasma albumin shira urement (mass/volume)Ordered By: Dina Ferrer on 07-23-2023 Albumin [Mass/Vol] 4.0 g/dL 3.2-5.0 [facility] Serum or plasma albumin/glob ulin mass ratioOrdered By: Dina Ferrer on 07-23-2023 Albumin/Globulin [Mass ratio] 1.1 {ratio} 0.9-2.4 [facility] Serum or plasma calcium shira urement (mass/volume)Ordered By: Dina Ferrer on 07-23-2023 Calcium [Mass/Vol] 9.1 mg/dL 8.5-10.1 [facility] Serum or plasma creatinine m easurement (mass/volume)Ordered By: Dina Ferrer on 07-23-2023 Creatinine [Mass/Vol] 0.85 mg/dL 0.55-1.02 [facility] Comment on above: The validity of the calculated GFR & GFRAA in patients over 70 years has not been determined. Clinical correlation is essential. Serum or plasma urea nitroge n measurement (mass/volume)Ordered By: Dina Ferrer on 07-23-2023 Urea nitrogen [Mass/Vol] 18 mg/dL 7-18 [facility] Thin prep Papanicolaou smear with manual screeningOrdered By: Dina Ferrer on 07-23-2023 Thin prep Papanicolaou smear with manual screening 18 U/L 15-37 [facility] Thin prep Papanicolaou smear with manual screening 4 5-15 [facility] Absolute lymphocyte countOrd ered By: Dina Ferrer on 05-07-2023 Lymphocytes Auto (Unsp spec) [#/Vol] 1.10 10*3/uL 0.83-4.51 [facility] Basophil percentageOrdered B y: Dina Ferrer on 05-07-2023 Basophils/100 WBC (Bld) 0.9 % 0-1 [facility] Bilirubin [Mass/Vol] 0.60 mg/dL 0.20-1.00 [facility] Comment on above: For patients on eltr ombopag therapy, use of Dimension [place] TBIL is not recommended. Chloride [Moles/Vol] 106 mmol/L 98-107 [facility] Eosinophils/100 WBC (Bld) 3.5 % 0-5 [facility] Glucose [Mass/Vol] 104 mg/dL 74-106 [facility] Comment on above: Fasting Glucose resu lt from 100 to 125 mg/dL suggests IMPAIRED HOMEOSTASIS per A.D.A. criteria. Neutrophils (Bld) [#/Vol] 1.9 10*3/uL 2.0-7.7 [facility] Neutrophils/100 WBC (Bld) 54.4 % 47-70 [facility] Potassium [Moles/Vol] 4.1 mmol/L 3.5-5.1 [facility] Protein [Mass/Vol] 7.2 g/dL 6.4-8.2 [facility] Sodium [Moles/Vol] 139 mmol/L 136-145 [facility] WBC (Bld) [#/Vol] 3.5 10*3/uL 4.4-11.0 [facility] Blood erythrocytes count (nu mber/volume)Ordered By: Dina Ferrer on 05-07-2023 RBC (Bld) [#/Vol] 3.88 10*6/uL 4.2-5.4 [facility] Blood hemoglobin measurement (mass/volume)Ordered By: Dina Ferrer on 05-07-2023 Hemoglobin (Bld) [Mass/Vol] 13.5 g/dL 12.0-15.0 [facility] Blood lymphocytes/100 leukoc ytesOrdered By: Dina Ferrer on 05-07-2023 Lymphocytes/100 WBC (Bld) 31.7 % 19-41 [facility] Blood monocytes/100 leukocyt esOrdered By: Dina Ferrer on 05-07-2023 Monocytes/100 WBC (Bld) 9.2 % 0-10 [facility] Blood platelet mean volumeOr dered By: Dina Ferrer on 05-07-2023 Platelet mean volume (Bld) [Entitic vol] 10.1 fL 6.2-12.0 [facility] Determination of erythrocyte mean corpuscular volume (MCV)Ordered By: Dina Ferrer on 05-07-2023 MCV (RBC) [Entitic vol] 105.7 fL 81-99 [facility] Hematocrit Auto (Bld) [Volum e fraction]Ordered By: Dina Ferrer on 05-07-2023 Hematocrit (Bld) [Volume fraction] 41.0 % 37-47 [facility] Laboratory - Chemistry and C hemistry - challengeOrdered By: [facility] ALP [Catalytic activity/Vol] 84 U/L 45-117 [facility] ALT [Catalytic activity/Vol] 18 U/L 13-56 [facility] CO2 [Moles/Vol] 28.0 mmol/L 21.0-32.0 [facility] Globulin (S) [Mass/Vol] 3.2 g/dL 2.2-4.2 [facility] Urea nitrogen/Creatinine [Mass ratio] 19.6 mg/mg 10-20 [facility] Laboratory - Hematology and Cell countsOrdered By: [facility] N[facility] on 05-07-2023 Erythrocyte distribution width (RBC) [Entitic vol] 49.9 fL 35.1-43.9 [facility] Erythrocyte distribution width (RBC) [Ratio] 13.0 % 11.6-14.6 [facility] Immature granulocytes/100 WBC (Bld) 0.300 % 0.0-0.9 [facility] Comment on above: IG% - Immature Granu locytes (promyelocytes, myelocytes and metamyelocytes) > 1% indicates that a LEFT SHIFT is Present. MCH (RBC) [Entitic mass] 34.8 pg 27.0-32.0 [facility] Nucleated RBC/100 WBC (Bld) [Ratio] 0 % 0-5 [facility] MCHC Auto (RBC) [Mass/Vol]Or dered By: Dina Ferrer on 05-07-2023 MCHC (RBC) [Mass/Vol] 32.9 g/dL 32-36 [facility] No Panel InformationOrdered By: Dina Ferrer on 05-07-2023 Estimated GFR (MDRD) Amer 83 mL/min >60 [facility] Comment on above: GFR Calc Estimated GFR (MDRD) Non-Af Amer 69 mL/min >60 [facility] Comment on above: Non- GFR Calc Platelets bldOrdered By: Issac Ferrer on 05-07-2023 Platelets (Bld) [#/Vol] 190 10*3/uL 150-450 [facility] Serum or plasma albumin shira urement (mass/volume)Ordered By: Dina Ferrer on 05-07-2023 Albumin [Mass/Vol] 4.0 g/dL 3.2-5.0 [facility] Serum or plasma albumin/glob ulin mass ratioOrdered By: Dina Ferrer on 05-07-2023 Albumin/Globulin [Mass ratio] 1.2 {ratio} 0.9-2.4 [facility] Serum or plasma calcium shira urement (mass/volume)Ordered By: Dina Ferrer on 05-07-2023 Calcium [Mass/Vol] 9.1 mg/dL 8.5-10.1 [facility] Serum or plasma creatinine m easurement (mass/volume)Ordered By: Dina Ferrer on 05-07-2023 Creatinine [Mass/Vol] 0.87 mg/dL 0.55-1.02 [facility] Comment on above: The validity of the calculated GFR & GFRAA in patients over 70 years has not been determined. Clinical correlation is essential. Serum or plasma urea nitroge n measurement (mass/volume)Ordered By: Dina Ferrer on 05-07-2023 Urea nitrogen [Mass/Vol] 17 mg/dL 7-18 [facility] Thin prep Papanicolaou smear with manual screeningOrdered By: Dina Ferrer on 05-07-2023 Thin prep Papanicolaou smear with manual screening 20 U/L 15-37 [facility] Thin prep Papanicolaou smear with manual screening 5 5-15 [facility] Absolute lymphocyte countOrd ered By: Dr. Ferrer on 02-05-2023 Lymphocytes Auto (Unsp spec) [#/Vol] 1.10 10*3/uL 0.83-4.51 [facility] Basophil percentageOrdered B y: Dr. Ferrer on 02-05-2023 Basophils/100 WBC (Bld) 0.9 % 0-1 [facility] Bilirubin [Mass/Vol] 0.60 mg/dL 0.20-1.00 [facility] Comment on above: For patients on eltr ombopag therapy, use of Dimension [place] TBIL is not recommended. Chloride [Moles/Vol] 105 mmol/L 98-107 [facility] Eosinophils/100 WBC (Bld) 2.7 % 0-5 [facility] Glucose [Mass/Vol] 134 mg/dL 74-106 [facility] Comment on above: Fasting Glucose resu lt greater than or equal to 126 mg/dL suggests DIABETES MELLITUS per A.D.A. criteria. Neutrophils (Bld) [#/Vol] 1.9 10*3/uL 2.0-7.7 [facility] Neutrophils/100 WBC (Bld) 57.2 % 47-70 [facility] Potassium [Moles/Vol] 3.8 mmol/L 3.5-5.1 [facility] Protein [Mass/Vol] 7.6 g/dL 6.4-8.2 [facility] Sodium [Moles/Vol] 140 mmol/L 136-145 [facility] WBC (Bld) [#/Vol] 3.4 10*3/uL 4.4-11.0 [facility] Blood erythrocytes count (nu mber/volume)Ordered By: Dr. Ferrer on 02-05-2023 RBC (Bld) [#/Vol] 4.04 10*6/uL 4.2-5.4 [facility] Blood hemoglobin measurement (mass/volume)Ordered By: Dr. Ferrer on 02-05-2023 Hemoglobin (Bld) [Mass/Vol] 14.2 g/dL 12.0-15.0 [facility] Blood lymphocytes/100 leukoc ytesOrdered By: Dr. Ferrer on 02-05-2023 Lymphocytes/100 WBC (Bld) 32.4 % 19-41 [facility] Blood monocytes/100 leukocyt esOrdered By: Dr. Ferrer on 02-05-2023 Monocytes/100 WBC (Bld) 6.5 % 0-10 [facility] Blood platelet mean volumeOr dered By: Dr. Ferrer on 02-05-2023 Platelet mean volume (Bld) [Entitic vol] 10.3 fL 6.2-12.0 [facility] Determination of erythrocyte mean corpuscular volume (MCV)Ordered By: Dr. Ferrer on 02-05-2023 MCV (RBC) [Entitic vol] 105.9 fL 81-99 [facility] Hematocrit Auto (Bld) [Volum e fraction]Ordered By: Dr. Ferrer on 02-05-2023 Hematocrit (Bld) [Volume fraction] 42.8 % 37-47 [facility] Laboratory - Chemistry and C hemistry - challengeOrdered By: Dr. Ferrer on 02-05-2023 ALP [Catalytic activity/Vol] 88 U/L 45-117 [facility] ALT [Catalytic activity/Vol] 17 U/L 13-56 [facility] CO2 [Moles/Vol] 29.0 mmol/L 21.0-32.0 [facility] Globulin (S) [Mass/Vol] 3.6 g/dL 2.2-4.2 [facility] Urea nitrogen/Creatinine [Mass ratio] 17.6 mg/mg 10-20 [facility] Laboratory - Hematology and Cell countsOrdered By: Dr. Ferrer on 02-05-2023 Erythrocyte distribution width (RBC) [Entitic vol] 49.8 fL 35.1-43.9 [facility] Erythrocyte distribution width (RBC) [Ratio] 12.7 % 11.6-14.6 [facility] Immature granulocytes/100 WBC (Bld) 0.300 % 0.0-0.9 [facility] Comment on above: IG% - Immature Granu locytes (promyelocytes, myelocytes and metamyelocytes) > 1% indicates that a LEFT SHIFT is Present. MCH (RBC) [Entitic mass] 35.1 pg 27.0-32.0 [facility] Nucleated RBC/100 WBC (Bld) [Ratio] 0 % 0-5 [facility] MCHC Auto (RBC) [Mass/Vol]Or dered By: Dr. Ferrer on 02-05-2023 MCHC (RBC) [Mass/Vol] 33.2 g/dL 32-36 [facility] No Panel InformationOrdered By: Dr. Ferrer on 02-05-2023 Estimated GFR (MDRD) Amer 92 mL/min >60 [facility] Comment on above: GFR Calc Estimated GFR (MDRD) Non-Af Amer 76 mL/min >60 [facility] Comment on above: Non- GFR Calc Platelets bldOrdered By: Dr. Ferrer on 02-05-2023 Platelets (Bld) [#/Vol] 204 10*3/uL 150-450 [facility] Serum or plasma albumin shira urement (mass/volume)Ordered By: Dr. Ferrer on 02-05-2023 Albumin [Mass/Vol] 4.0 g/dL 3.2-5.0 [facility] Serum or plasma albumin/glob ulin mass ratioOrdered By: Dr. Ferrer on 02-05-2023 Albumin/Globulin [Mass ratio] 1.1 {ratio} 0.9-2.4 [facility] Serum or plasma calcium shira urement (mass/volume)Ordered By: Dr. Ferrer on 02-05-2023 Calcium [Mass/Vol] 9.4 mg/dL 8.5-10.1 [facility] Serum or plasma creatinine m easurement (mass/volume)Ordered By: Dr. Ferrer on 02-05-2023 Creatinine [Mass/Vol] 0.80 mg/dL 0.55-1.02 [facility] Comment on above: The validity of the calculated GFR & GFRAA in patients over 70 years has not been determined. Clinical correlation is essential. Serum or plasma urea nitroge n measurement (mass/volume)Ordered By: Dr. Ferrer on 02-05-2023 Urea nitrogen [Mass/Vol] 14 mg/dL 7-18 [facility] Thin prep Papanicolaou smear with manual screeningOrdered By: Dr. Ferrer on 02-05-2023 Thin prep Papanicolaou smear with manual screening 20 U/L 15-37 [facility] Thin prep Papanicolaou smear with manual screening 6 5-15 [facility] Absolute lymphocyte countOrd ered By: Dr. Ferrer on 11-20-2022 Lymphocytes Auto (Unsp spec) [#/Vol] 1.05 10*3/uL 0.83-4.51 [facility] Basophil percentageOrdered B y: Dr. Ferrer on 11-20-2022 Basophils/100 WBC (Bld) 0.8 % 0-1 [facility] Bilirubin [Mass/Vol] 0.60 mg/dL 0.20-1.00 [facility] Comment on above: For patients on eltr ombopag therapy, use of Dimension [place] TBIL is not recommended. Chloride [Moles/Vol] 105 mmol/L 98-107 [facility] Eosinophils/100 WBC (Bld) 3.1 % 0-5 [facility] Glucose [Mass/Vol] 93 mg/dL 74-106 [facility] Neutrophils (Bld) [#/Vol] 2.1 10*3/uL 2.0-7.7 [facility] Neutrophils/100 WBC (Bld) 57.7 % 47-70 [facility] Potassium [Moles/Vol] 3.8 mmol/L 3.5-5.1 [facility] Protein [Mass/Vol] 7.3 g/dL 6.4-8.2 [facility] Sodium [Moles/Vol] 140 mmol/L 136-145 [facility] WBC (Bld) [#/Vol] 3.6 10*3/uL 4.4-11.0 [facility] Blood erythrocytes count (nu mber/volume)Ordered By: Dr. Ferrer on 11-20-2022 RBC (Bld) [#/Vol] 3.94 10*6/uL 4.2-5.4 [facility] Blood hemoglobin measurement (mass/volume)Ordered By: Dr. Ferrer on 11-20-2022 Hemoglobin (Bld) [Mass/Vol] 13.5 g/dL 12.0-15.0 [facility] Blood lymphocytes/100 leukoc ytesOrdered By: Dr. Ferrer on 11-20-2022 Lymphocytes/100 WBC (Bld) 29.2 % 19-41 [facility] Blood monocytes/100 leukocyt esOrdered By: Dr. Ferrer on 11-20-2022 Monocytes/100 WBC (Bld) 8.9 % 0-10 [facility] Blood platelet mean volumeOr dered By: Dr. Ferrer on 11-20-2022 Platelet mean volume (Bld) [Entitic vol] 10.4 fL 6.2-12.0 [facility] Determination of erythrocyte mean corpuscular volume (MCV)Ordered By: Dr. Ferrer on 11-20-2022 MCV (RBC) [Entitic vol] 105.1 fL 81-99 [facility] Hematocrit Auto (Bld) [Volum e fraction]Ordered By: Dr. Ferrer on 11-20-2022 Hematocrit (Bld) [Volume fraction] 41.4 % 37-47 [facility] Laboratory - Chemistry and C hemistry - challengeOrdered By: Dr. Ferrer on 11-20-2022 ALP [Catalytic activity/Vol] 86 U/L 45-117 [facility] ALT [Catalytic activity/Vol] 21 U/L 13-56 [facility] CO2 [Moles/Vol] 32.0 mmol/L 21.0-32.0 [facility] Globulin (S) [Mass/Vol] 3.2 g/dL 2.2-4.2 [facility] Urea nitrogen/Creatinine [Mass ratio] 20.3 mg/mg 10-20 [facility] Laboratory - Hematology and Cell countsOrdered By: Dr. Ferrer on 11-20-2022 Erythrocyte distribution width (RBC) [Entitic vol] 48.8 fL 35.1-43.9 [facility] Erythrocyte distribution width (RBC) [Ratio] 12.7 % 11.6-14.6 [facility] Immature granulocytes/100 WBC (Bld) 0.300 % 0.0-0.9 [facility] Comment on above: IG% - Immature Granu locytes (promyelocytes, myelocytes and metamyelocytes) > 1% indicates that a LEFT SHIFT is Present. MCH (RBC) [Entitic mass] 34.3 pg 27.0-32.0 [facility] Nucleated RBC/100 WBC (Bld) [Ratio] 0 % 0-5 [facility] MCHC Auto (RBC) [Mass/Vol]Or dered By: Dr. Ferrer on 11-20-2022 MCHC (RBC) [Mass/Vol] 32.6 g/dL 32-36 [facility] No Panel InformationOrdered By: Dr. Ferrer on 11-20-2022 Estimated GFR (MDRD) Amer 87 mL/min >60 [facility] Comment on above: GFR Calc Estimated GFR (MDRD) Non-Af Amer 72 mL/min >60 [facility] Comment on above: Non- GFR Calc Platelets bldOrdered By: Dr. Ferrer on 11-20-2022 Platelets (Bld) [#/Vol] 189 10*3/uL 150-450 [facility] Serum or plasma albumin shira urement (mass/volume)Ordered By: Dr. Ferrer on 11-20-2022 Albumin [Mass/Vol] 4.1 g/dL 3.2-5.0 [facility] Serum or plasma albumin/glob ulin mass ratioOrdered By: Dr. Ferrer on 11-20-2022 Albumin/Globulin [Mass ratio] 1.3 {ratio} 0.9-2.4 [facility] Serum or plasma calcium shira urement (mass/volume)Ordered By: Dr. Ferrer on 11-20-2022 Calcium [Mass/Vol] 9.3 mg/dL 8.5-10.1 [facility] Serum or plasma creatinine m easurement (mass/volume)Ordered By: Dr. Ferrer on 11-20-2022 Creatinine [Mass/Vol] 0.84 mg/dL 0.55-1.02 [facility] Comment on above: The validity of the calculated GFR & GFRAA in patients over 70 years has not been determined. Clinical correlation is essential. Serum or plasma urea nitroge n measurement (mass/volume)Ordered By: Dr. Ferrer on 11-20-2022 Urea nitrogen [Mass/Vol] 17 mg/dL 7-18 [facility] Thin prep Papanicolaou smear with manual screeningOrdered By: Dr. Ferrer on 11-20-2022 Thin prep Papanicolaou smear with manual screening 22 U/L 15-37 [facility] Thin prep Papanicolaou smear with manual screening 3 5-15 [facility] LEIGH SCREENINGon 11-06-2022 [facility] HEMOGLOBIN A1C (POC)on 09-21 HbA1c (Bld) [Mass fraction] 5.5 % 4.2 - 5.6 % [facility] Absolute lymphocyte countOrd ered By: Dr. Ferrer on 08-26-2022 Lymphocytes Auto (Unsp spec) [#/Vol] 1.09 10*3/uL 0.83-4.51 [facility] Basophil percentageOrdered B y: Dr. Ferrer on 08-26-2022 Basophils/100 WBC (Bld) 0.8 % 0-1 [facility] Bilirubin [Mass/Vol] 0.60 mg/dL 0.20-1.00 [facility] Comment on above: For patients on eltr ombopag therapy, use of Dimension [place] TBIL is not recommended. Chloride [Moles/Vol] 104 mmol/L 98-107 [facility] Eosinophils/100 WBC (Bld) 3.6 % 0-5 [facility] Glucose [Mass/Vol] 96 mg/dL 74-106 [facility] Neutrophils (Bld) [#/Vol] 2.1 10*3/uL 2.0-7.7 [facility] Neutrophils/100 WBC (Bld) 58.9 % 47-70 [facility] Potassium [Moles/Vol] 4.1 mmol/L 3.5-5.1 [facility] Protein [Mass/Vol] 7.1 g/dL 6.4-8.2 [facility] Sodium [Moles/Vol] 140 mmol/L 136-145 [facility] WBC (Bld) [#/Vol] 3.6 10*3/uL 4.4-11.0 [facility] Blood erythrocytes count (nu mber/volume)Ordered By: Dr. Ferrer on 08-26-2022 RBC (Bld) [#/Vol] 4.00 10*6/uL 4.2-5.4 [facility] Blood hemoglobin measurement (mass/volume)Ordered By: Dr. Ferrer on 08-26-2022 Hemoglobin (Bld) [Mass/Vol] 13.7 g/dL 12.0-15.0 [facility] Blood lymphocytes/100 leukoc ytesOrdered By: Dr. Ferrer on 08-26-2022 Lymphocytes/100 WBC (Bld) 30.3 % 19-41 [facility] Blood monocytes/100 leukocyt esOrdered By: Dr. Ferrer on 08-26-2022 Monocytes/100 WBC (Bld) 6.4 % 0-10 [facility] Blood platelet mean volumeOr dered By: Dr. Ferrer on 08-26-2022 Platelet mean volume (Bld) [Entitic vol] 10.2 fL 6.2-12.0 [facility] Determination of erythrocyte mean corpuscular volume (MCV)Ordered By: Dr. Ferrer on 08-26-2022 MCV (RBC) [Entitic vol] 105.5 fL 81-99 [facility] Hematocrit Auto (Bld) [Volum e fraction]Ordered By: Dr. Ferrer on 08-26-2022 Hematocrit (Bld) [Volume fraction] 42.2 % 37-47 [facility] Laboratory - Chemistry and C hemistry - challengeOrdered By: Dr. Ferrer on 08-26-2022 ALP [Catalytic activity/Vol] 81 U/L 45-117 [facility] ALT [Catalytic activity/Vol] 20 U/L 13-56 [facility] CO2 [Moles/Vol] 32.0 mmol/L 21.0-32.0 [facility] Globulin (S) [Mass/Vol] 3.0 g/dL 2.2-4.2 [facility] Urea nitrogen/Creatinine [Mass ratio] 17.7 mg/mg 10-20 [facility] Laboratory - Hematology and Cell countsOrdered By: Dr. Ferrer on 08-26-2022 Erythrocyte distribution width (RBC) [Entitic vol] 50.3 fL 35.1-43.9 [facility] Erythrocyte distribution width (RBC) [Ratio] 12.9 % 11.6-14.6 [facility] Immature granulocytes/100 WBC (Bld) 0.000 % 0.0-0.9 [facility] Comment on above: IG% - Immature Granu locytes (promyelocytes, myelocytes and metamyelocytes) > 1% indicates that a LEFT SHIFT is Present. MCH (RBC) [Entitic mass] 34.3 pg 27.0-32.0 [facility] Nucleated RBC/100 [facility] (Bld) [Ratio] 0 [facility]5 [facility] [Mass/Vol]Or dered By: Dr. Ferrer on 08-26-2022 MCHC (RBC) [Mass/Vol] 32.5 g/dL 32-36 [facility] No Panel InformationOrdered By: Dr. Ferrer on 08-26-2022 Estimated GFR (MDRD) Amer 86 mL/min >60 [facility] Comment on above: GFR Calc Estimated GFR (MDRD) Non-Af Amer 71 mL/min >60 [facility] Comment on above: Non- GFR Calc Platelets bldOrdered By: Dr. Ferrer on 08-26-2022 Platelets (Bld) [#/Vol] 184 10*3/uL 150-450 [facility] Serum or plasma albumin shira urement (mass/volume)Ordered By: Dr. Ferrer on 08-26-2022 Albumin [Mass/Vol] 4.1 g/dL 3.2-5.0 [facility] Serum or plasma albumin/glob ulin mass ratioOrdered By: Dr. Ferrer on 08-26-2022 Albumin/Globulin [Mass ratio] 1.4 {ratio} 0.9-2.4 [facility] [facility] Serum or plasma calcium shira urement (mass/volume)Ordered By: Dr. Ferrer on 08-26-2022 Calcium [Mass/Vol] 9.4 mg/dL 8.5-10.1 [facility] Serum or plasma creatinine m easurement (mass/volume)Ordered By: Dr. Ferrer on 08-26-2022 Creatinine [Mass/Vol] 0.85 mg/dL 0.55-1.02 [facility] Comment on above: The validity of the calculated GFR & GFRAA in patients over 70 years has not been determined. Clinical correlation is essential. Serum or plasma urea nitroge n measurement (mass/volume)Ordered By: Dr. Ferrer on 08-26-2022 Urea nitrogen [Mass/Vol] 15 mg/dL 7-18 [facility] Thin prep Papanicolaou smear with manual screeningOrdered By: Dr. Ferrer on 08-26-2022 Thin prep Papanicolaou smear with manual screening 19 U/L 15-37 [facility] Thin prep Papanicolaou smear with manual screening 4 5-15 [facility] Absolute lymphocyte countOrd ered By: Dr. Ferrer on 06-02-2022 Lymphocytes Auto (Unsp spec) [#/Vol] 1.08 10*3/uL 0.83-4.51 [facility] Basophil percentageOrdered B y: Dr. Ferrer on 06-02-2022 Basophils/100 WBC (Bld) 0.7 % 0-1 [facility] Bilirubin [Mass/Vol] 0.60 mg/dL 0.20-1.00 [facility] Comment on above: For patients on eltr ombopag therapy, use of Dimension [place] TBIL is not recommended. Chloride [Moles/Vol] 108 mmol/L 98-107 [facility] Eosinophils/100 WBC (Bld) 2.6 % 0-5 [facility] Glucose [Mass/Vol] 110 mg/dL 74-106 [facility] Comment on above: Fasting Glucose resu lt from 100 to 125 mg/dL suggests IMPAIRED HOMEOSTASIS per A.D.A. criteria. Neutrophils (Bld) [#/Vol] 2.7 10*3/uL 2.0-7.7 [facility] Neutrophils/100 WBC (Bld) 63.3 % 47-70 [facility] Potassium [Moles/Vol] 4.0 mmol/L 3.5-5.1 [facility] Protein [Mass/Vol] 7.3 g/dL 6.4-8.2 [facility] Sodium [Moles/Vol] 142 mmol/L 136-145 [facility] WBC (Bld) [#/Vol] 4.2 10*3/uL 4.4-11.0 [facility] Blood erythrocytes count (nu mber/volume)Ordered By: Dr. Ferrer on 06-02-2022 RBC (Bld) [#/Vol] 3.84 10*6/uL 4.2-5.4 [facility] Blood hemoglobin measurement (mass/volume)Ordered By: Dr. Ferrer on 06-02-2022 Hemoglobin (Bld) [Mass/Vol] 13.2 g/dL 12.0-15.0 [facility] Blood lymphocytes/100 leukoc ytesOrdered By: Dr. Ferrer on 06-02-2022 Lymphocytes/100 WBC (Bld) 25.8 % 19-41 [facility] Blood monocytes/100 leukocyt esOrdered By: Dr. Ferrer on 06-02-2022 Monocytes/100 WBC (Bld) 7.4 % 0-10 [facility] Blood platelet mean volumeOr dered By: Dr. Ferrer on 06-02-2022 Platelet mean volume (Bld) [Entitic vol] 10.3 fL 6.2-12.0 [facility] Determination of erythrocyte mean corpuscular volume (MCV)Ordered By: Dr. Ferrer on 06-02-2022 MCV (RBC) [Entitic vol] 104.4 fL 81-99 [facility] Hematocrit Auto (Bld) [Volum e fraction]Ordered By: Dr. Ferrer on 06-02-2022 Hematocrit (Bld) [Volume fraction] 40.1 % 37-47 [facility] Laboratory - Chemistry and C hemistry - challengeOrdered By: Dr. Ferrer on 06-02-2022 ALP [Catalytic activity/Vol] 93 U/L 45-117 [facility] ALT [Catalytic activity/Vol] 23 U/L 13-56 [facility] CO2 [Moles/Vol] 29.0 mmol/L 21.0-32.0 [facility] Globulin (S) [Mass/Vol] 3.5 g/dL 2.2-4.2 [facility] Urea nitrogen/Creatinine [Mass ratio] 37.2 mg/mg 10-20 [facility] Laboratory - Hematology and Cell countsOrdered By: Dr. Ferrer on 06-02-2022 Erythrocyte distribution width (RBC) [Entitic vol] 51.0 fL 35.1-43.9 [facility] Erythrocyte distribution width (RBC) [Ratio] 13.3 % 11.6-14.6 [facility] Immature granulocytes/100 WBC (Bld) 0.200 % 0.0-0.9 [facility] Comment on above: IG% - Immature Granu locytes (promyelocytes, myelocytes and metamyelocytes) > 1% indicates that a LEFT SHIFT is Present. MCH (RBC) [Entitic mass] 34.4 pg 27.0-32.0 [facility] Nucleated RBC/100 WBC (Bld) [Ratio] 0 % 0-5 [facility] MCHC Auto (RBC) [Mass/Vol]Or dered By: Dr. Ferrer on 06-02-2022 MCHC (RBC) [Mass/Vol] 32.9 g/dL 32-36 [facility] No Panel InformationOrdered By: Dr. Ferrer on 06-02-2022 Estimated GFR (MDRD) Amer 107 mL/min >60 [facility] Comment on above: GFR Calc Estimated GFR (MDRD) Non-Af Amer 89 mL/min >60 [facility] Comment on above: Non- GFR Calc Platelets bldOrdered By: Dr. Ferrer on 06-02-2022 Platelets (Bld) [#/Vol] 222 10*3/uL 150-450 [facility] Serum or plasma albumin shira urement (mass/volume)Ordered By: Dr. Ferrer on 06-02-2022 Albumin [Mass/Vol] 3.8 g/dL 3.2-5.0 [facility] Serum or plasma albumin/glob ulin mass ratioOrdered By: Dr. Ferrer on 06-02-2022 Albumin/Globulin [Mass ratio] 1.1 {ratio} 0.9-2.4 [facility] Serum or plasma calcium shira urement (mass/volume)Ordered By: Dr. Ferrer on 06-02-2022 Calcium [Mass/Vol] 9.1 mg/dL 8.5-10.1 [facility] Serum or plasma creatinine m easurement (mass/volume)Ordered By: Dr. Ferrer on 06-02-2022 Creatinine [Mass/Vol] 0.70 mg/dL 0.55-1.02 [facility] Comment on above: The validity of the calculated GFR & GFRAA in patients over 70 years has not been determined. Clinical correlation is essential. Serum or plasma urea nitroge n measurement (mass/volume)Ordered By: Dr. Ferrer on 06-02-2022 Urea nitrogen [Mass/Vol] 26 mg/dL 7-18 [facility] Thin prep Papanicolaou smear with manual screeningOrdered By: Dr. Ferrer on 06-02-2022 Thin prep Papanicolaou smear with manual screening 25 U/L 15-37 [facility] Thin prep Papanicolaou smear with manual screening 5 5-15 [facility] Absolute lymphocyte counton 04-10-2022 Lymphocytes Auto (Unsp spec) [#/Vol] 1.16 10*3/uL 0.83-4.51 [facility] Work Phone: [phone] Basophil percentageon 2021 Basophils/100 WBC (Bld) 0.5 % 0-1 [facility] Work Phone: [phone] Bilirubin [Mass/Vol] 0.50 mg/dL 0.20-1.00 [facility] Work Phone: [phone] Comment on above: For patients on eltr ombopag therapy, use of Dimension [place] TBIL is not recommended. Chloride [Moles/Vol] 103 mmol/L 98-107 [facility] Work Phone: Eosinophils/100 WBC (Bld) 3.0 % 0-5 [facility] Work Phone: [phone] Glucose [Mass/Vol] 108 mg/dL 74-106 [facility] Work Phone: [phone] Comment on above: Fasting Glucose resu lt from 100 to 125 mg/dL suggests IMPAIRED HOMEOSTASIS per A.D.A. criteria. Neutrophils (Bld) [#/Vol] 2.4 10*3/uL 2.0-7.7 [facility] Work Phone: Neutrophils/100 WBC (Bld) 58.7 % 47-70 [facility] Work Phone: [phone] Potassium [Moles/Vol] 4.2 mmol/L 3.5-5.1 [facility] Work Phone: [phone] Protein [Mass/Vol] 7.4 g/dL 6.4-8.2 [facility] Work Phone: Sodium [Moles/Vol] 137 mmol/L 136-145 [facility] Work Phone: [phone] WBC (Bld) [#/Vol] 4.0 10*3/uL 4.4-11.0 [facility] Work Phone: [phone] Blood erythrocytes count (nu mber/volume)on 04-10-2022 RBC (Bld) [#/Vol] 4.06 10*6/uL 4.2-5.4 [facility] Work Phone: [phone] Blood hemoglobin measurement (mass/volume)on 04-10-2022 Hemoglobin (Bld) [Mass/Vol] 13.8 g/dL 12.0-15.0 [facility] Work Phone: Blood lymphocytes/100 leukoc yteson 04-10-2022 Lymphocytes/100 WBC (Bld) 28.9 % 19-41 [facility] Work Phone: Blood monocytes/100 leukocyt eson 04-10-2022 Monocytes/100 WBC (Bld) 8.2 % 0-10 [facility] Work Phone: Blood platelet mean volumeon 04-10-2022 Platelet mean volume (Bld) [Entitic vol] 10.3 fL 6.2-12.0 [facility] Work Phone: [phone] Determination of erythrocyte mean corpuscular volume (MCV)on 04-10-2022 MCV (RBC) [Entitic vol] 102.7 fL 81-99 [facility] Work Phone: Hematocrit Auto (Bld) [Volum e fraction]on 04-10-2022 Hematocrit (Bld) [Volume fraction] 41.7 % 37-47 [facility] Work Phone: [phone] Laboratory - Chemistry and C hemistry - challengeon 04-10-2022 ALP [Catalytic activity/Vol] 91 U/L 45-117 [facility] Work Phone: [phone] ALT [Catalytic activity/Vol] 26 U/L 13-56 [facility] Work Phone: [phone] CO2 [Moles/Vol] 29.0 mmol/L 21.0-32.0 [facility] Work Phone: [phone] Globulin (S) [Mass/Vol] 3.5 g/dL 2.2-4.2 [facility] Work Phone: Urea nitrogen/Creatinine [Mass ratio] 21.5 mg/mg 10-20 [facility] Work Phone: Laboratory - Hematology and Cell countson 04-10-2022 Erythrocyte distribution width (RBC) [Entitic vol] 49.1 fL 35.1-43.9 [facility] Work Phone: Erythrocyte distribution width (RBC) [Ratio] 13.2 % 11.6-14.6 [facility] Work Phone: Immature granulocytes/100 WBC (Bld) 0.700 % 0.0-0.9 [facility] Work Phone: Comment on above: IG% - Immature Granu locytes (promyelocytes, myelocytes and metamyelocytes) > 1% indicates that a LEFT SHIFT is Present. MCH (RBC) [Entitic mass] 34.0 pg 27.0-32.0 [facility] Work Phone: Nucleated RBC/100 WBC (Bld) [Ratio] 0 % 0-5 [facility] Work Phone: MCHC Auto (RBC) [Mass/Vol]on 04-10-2022 MCHC (RBC) [Mass/Vol] 33.1 g/dL 32-36 [facility] Work Phone: No Panel Informationon 04-10 Estimated GFR (MDRD) Amer 100 mL/min >60 [facility] Work Phone: Comment on above: GFR Calc Estimated GFR (MDRD) Non-Af Amer 82 mL/min >60 [facility] Work Phone: Comment on above: Non- GFR Calc Platelets bldon 04-10-2022 Platelets (Bld) [#/Vol] 209 10*3/uL 150-450 [facility] Work Phone: Serum or plasma albumin shira urement (mass/volume)on 04-10-2022 Albumin [Mass/Vol] 3.9 g/dL 3.2-5.0 [facility] Work Phone: Serum or plasma albumin/glob ulin mass ratioon 04-10-2022 Albumin/Globulin [Mass ratio] 1.1 {ratio} 0.9-2.4 [facility] Work Phone: Serum or plasma calcium shira urement (mass/volume)on 04-10-2022 Calcium [Mass/Vol] 9.0 mg/dL 8.5-10.1 [facility] Work Phone: Serum or plasma creatinine m easurement (mass/volume)on 04-10-2022 Creatinine [Mass/Vol] 0.74 mg/dL 0.55-1.02 [facility] Work Phone: Comment on above: The validity of the calculated GFR & GFRAA in patients over 70 years has not been determined. Clinical correlation is essential. Serum or plasma urea nitroge n measurement (mass/volume)on 04-10-2022 Urea nitrogen [Mass/Vol] 16 mg/dL 7-18 [facility] Work Phone: Thin prep Papanicolaou smear with manual screeningon 04-10-2022 Thin prep Papanicolaou smear with manual screening 27 U/L 15-37 [facility] Work Phone: Thin prep Papanicolaou smear with manual screening 5 5-15 [facility] Work Phone: Absolute lymphocyte counton 02-16-2022 Lymphocytes Auto (Unsp spec) [#/Vol] 1.22 10*3/uL 0.83-4.51 [facility] Work Phone: Basophil percentageon 2021 Basophils/100 WBC (Bld) 0.5 % 0-1 [facility] Work Phone: Bilirubin [Mass/Vol] 0.70 mg/dL 0.20-1.00 [facility] Work Phone: Comment on above: For patients on eltr ombopag therapy, use of Dimension [place] TBIL is not recommended. Chloride [Moles/Vol] 106 mmol/L 98-107 [facility] Work Phone: Eosinophils/100 WBC (Bld) 3.0 % 0-5 [facility] Work Phone: Glucose [Mass/Vol] 102 mg/dL 74-106 [facility] Work Phone: Comment on above: Fasting Glucose resu lt from 100 to 125 mg/dL suggests IMPAIRED HOMEOSTASIS per A.D.A. criteria. Neutrophils (Bld) [#/Vol] 2.1 10*3/uL 2.0-7.7 [facility] Work Phone: Neutrophils/100 WBC (Bld) 55.7 % 47-70 [facility] Work Phone: Potassium [Moles/Vol] 3.8 mmol/L 3.5-5.1 [facility] Work Phone: Protein [Mass/Vol] 7.2 g/dL 6.4-8.2 [facility] Work Phone: Sodium [Moles/Vol] 140 mmol/L 136-145 [facility] Work Phone: WBC (Bld) [#/Vol] 3.7 10*3/uL 4.4-11.0 [facility] Work Phone: Blood erythrocytes count (nu mber/volume)on 02-16-2022 RBC (Bld) [#/Vol] 4.24 10*6/uL 4.2-5.4 [facility] Work Phone: Blood hemoglobin measurement (mass/volume)on 02-16-2022 Hemoglobin (Bld) [Mass/Vol] 14.2 g/dL 12.0-15.0 [facility] Work Phone: Blood lymphocytes/100 leukoc yteson 02-16-2022 Lymphocytes/100 WBC (Bld) 33.2 % 19-41 [facility] Work Phone: Blood monocytes/100 leukocyt eson 02-16-2022 Monocytes/100 WBC (Bld) 7.3 % 0-10 [facility] Work Phone: Blood platelet mean volumeon 02-16-2022 Platelet mean volume (Bld) [Entitic vol] 10.9 fL 6.2-12.0 [facility] Work Phone: [phone] Determination of erythrocyte mean corpuscular volume (MCV)on 02-16-2022 MCV (RBC) [Entitic vol] 100.7 fL 81-99 [facility] Work Phone: [phone] Hematocrit Auto (Bld) [Volum e fraction]on 02-16-2022 Hematocrit (Bld) [Volume fraction] 42.7 % 37-47 [facility] Work Phone: [phone] Laboratory - Chemistry and C hemistry - challengeon 02-16-2022 ALP [Catalytic activity/Vol] 96 U/L 45-117 [facility] Work Phone: [phone] ALT [Catalytic activity/Vol] 16 U/L 13-56 [facility] Work Phone: [phone] CO2 [Moles/Vol] 27.0 mmol/L 21.0-32.0 [facility] Work Phone: [phone] Globulin (S) [Mass/Vol] 3.2 g/dL 2.2-4.2 [facility] Work Phone: [phone] Urea nitrogen/Creatinine [Mass ratio] 29.2 mg/mg 10-20 [facility] Work Phone: [phone] Laboratory - Hematology and Cell countson 02-16-2022 Erythrocyte distribution width (RBC) [Entitic vol] 47.5 fL 35.1-43.9 [facility] Work Phone: [phone] Erythrocyte distribution width (RBC) [Ratio] 12.8 % 11.6-14.6 [facility] Work Phone: [phone] Immature granulocytes/100 WBC (Bld) 0.300 % 0.0-0.9 [facility] Work Phone: [phone] Comment on above: IG% - Immature Granu locytes (promyelocytes, myelocytes and metamyelocytes) > 1% indicates that a LEFT SHIFT is Present. MCH (RBC) [Entitic mass] 33.5 pg 27.0-32.0 [facility] Work Phone: Nucleated RBC/100 WBC (Bld) [Ratio] 0 % 0-5 [facility] Work Phone: MCHC Auto (RBC) [Mass/Vol]on 02-16-2022 MCHC (RBC) [Mass/Vol] 33.3 g/dL 32-36 [facility] Work Phone: No Panel Informationon 02-16 Estimated GFR (MDRD) Amer 110 mL/min >60 [facility] Work Phone: Comment on above: GFR Calc Estimated GFR (MDRD) Non-Af Amer 91 mL/min >60 [facility] Work Phone: Comment on above: Non- GFR Calc Platelets bldon 02-16-2022 Platelets (Bld) [#/Vol] 196 10*3/uL 150-450 [facility] Work Phone: Serum or plasma albumin shira urement (mass/volume)on 02-16-2022 Albumin [Mass/Vol] 4.0 g/dL 3.2-5.0 [facility] Work Phone: Serum or plasma albumin/glob ulin mass ratioon 02-16-2022 Albumin/Globulin [Mass ratio] 1.2 {ratio} 0.9-2.4 [facility] Work Phone: Serum or plasma calcium shira urement (mass/volume)on 02-16-2022 Calcium [Mass/Vol] 9.3 mg/dL 8.5-10.1 [facility] Work Phone: Serum or plasma creatinine m easurement (mass/volume)on 02-16-2022 Creatinine [Mass/Vol] 0.69 mg/dL 0.55-1.02 [facility] Work Phone: Comment on above: The validity of the calculated GFR & GFRAA in patients over 70 years has not been determined. Clinical correlation is essential. Serum or plasma urea nitroge n measurement (mass/volume)on 02-16-2022 Urea nitrogen [Mass/Vol] 20 mg/dL 7-18 [facility] Work Phone: Thin prep Papanicolaou smear with manual screeningon 02-16-2022 Thin prep Papanicolaou smear with manual screening 21 U/L 15-37 [facility] Work Phone: Thin prep Papanicolaou smear with manual screening 7 5-15 [facility] Work Phone: Absolute lymphocyte counton 12-22-2021 Lymphocytes Auto (Unsp spec) [#/Vol] 1.18 10*3/uL 0.83-4.51 [facility] Work Phone: Basophil percentageon 2021 Basophils/100 WBC (Bld) 0.3 % 0-1 [facility] Work Phone: Bilirubin [Mass/Vol] 1.00 mg/dL 0.20-1.00 [facility] Work Phone: Comment on above: For patients on eltr ombopag therapy, use of Dimension [place] TBIL is not recommended. Chloride [Moles/Vol] 104 mmol/L 98-107 [facility] Work Phone: Eosinophils/100 WBC (Bld) 2.1 % 0-5 [facility] Work Phone: Glucose [Mass/Vol] 99 mg/dL 74-106 [facility] Work Phone: Neutrophils (Bld) [#/Vol] 2.2 10*3/uL 2.0-7.7 [facility] Work Phone: Neutrophils/100 WBC (Bld) 58.5 % 47-70 [facility] Work Phone: Potassium [Moles/Vol] 3.7 mmol/L 3.5-5.1 [facility] Work Phone: [phone] Protein [Mass/Vol] 7.4 g/dL 6.4-8.2 [facility] Work Phone: Sodium [Moles/Vol] 139 mmol/L 136-145 [facility] Work Phone: WBC (Bld) [#/Vol] 3.7 10*3/uL 4.4-11.0 [facility] Work Phone: Blood erythrocytes count (nu mber/volume)on 12-22-2021 RBC (Bld) [#/Vol] 4.27 10*6/uL 4.2-5.4 [facility]: Blood hemoglobin measurement (mass/volume)on 12-22-2021 Hemoglobin (Bld) [Mass/Vol] 14.1 g/dL 12.0-15.0 [facility] Work Phone: Blood lymphocytes/100 leukoc yteson 12-22-2021 Lymphocytes/100 WBC (Bld) 31.6 % 19-41 [facility] Work Phone: Blood monocytes/100 leukocyt eson 12-22-2021 Monocytes/100 WBC (Bld) 7.0 % 0-10 [facility] Work Phone: Blood platelet mean volumeon 12-22-2021 Platelet mean volume (Bld) [Entitic vol] 10.6 fL 6.2-12.0 [facility] Work Phone: [phone] Determination of erythrocyte mean corpuscular volume (MCV)on 12-22-2021 MCV (RBC) [Entitic vol] 101.2 fL 81-99 [facility] Work Phone: Hematocrit Auto (Bld) [Volum e fraction]on 12-22-2021 Hematocrit (Bld) [Volume fraction] 43.2 % 37-47 [facility] Work Phone: [phone] Laboratory - Chemistry and C hemistry - challengeon 12-22-2021 ALP [Catalytic activity/Vol] 92 U/L 45-117 [facility] Work Phone: ALT [Catalytic activity/Vol] 19 U/L 13-56 [facility] Work Phone: CO2 [Moles/Vol] 28.0 mmol/L 21.0-32.0 [facility] Work Phone: Globulin (S) [Mass/Vol] 3.2 g/dL 2.2-4.2 [facility] Work Phone: Urea nitrogen/Creatinine [Mass ratio] 21.7 mg/mg 10-20 [facility] Work Phone: Laboratory - Hematology and Cell countson 12-22-2021 Erythrocyte distribution width (RBC) [Entitic vol] 51.3 fL 35.1-43.9 [facility] Work Phone: Erythrocyte distribution width (RBC) [Ratio] 13.7 % 11.6-14.6 [facility] Work Phone: Immature granulocytes/100 WBC (Bld) 0.500 % 0.0-0.9 [facility] Work Phone: Comment on above: IG% - Immature Granu locytes (promyelocytes, myelocytes and metamyelocytes) > 1% indicates that a LEFT SHIFT is Present. MCH (RBC) [Entitic mass] 33.0 pg 27.0-32.0 [facility] Work Phone: Nucleated RBC/100 WBC (Bld) [Ratio] 0 % 0-5 [facility] Work Phone: MCHC Auto (RBC) [Mass/Vol]on 12-22-2021 MCHC (RBC) [Mass/Vol] 32.6 g/dL 32-36 [facility] Work Phone: No Panel Informationon 12-22 Estimated GFR (MDRD) Amer 101 mL/min >60 [facility] Work Phone: Comment on above: GFR Calc Estimated GFR (MDRD) Non-Af Amer 83 mL/min >60 [facility] Work Phone: Comment on above: Non- GFR Calc Platelets bldon 12-22-2021 Platelets (Bld) [#/Vol] 210 10*3/uL 150-450 [facility] Work Phone: Serum or plasma albumin shira urement (mass/volume)on 12-22-2021 Albumin [Mass/Vol] 4.2 g/dL 3.2-5.0 [facility] Work Phone: Serum or plasma albumin/glob ulin mass ratioon 12-22-2021 Albumin/Globulin [Mass ratio] 1.3 {ratio} 0.9-2.4 [facility] Work Phone: Serum or plasma calcium shira urement (mass/volume)on 12-22-2021 Calcium [Mass/Vol] 9.1 mg/dL 8.5-10.1 [facility] Work Phone: Serum or plasma creatinine m easurement (mass/volume)on 12-22-2021 Creatinine [Mass/Vol] 0.74 mg/dL 0.55-1.02 [facility] Work Phone: Comment on above: The validity of the calculated GFR & GFRAA in patients over 70 years has not been determined. Clinical correlation is essential. Serum or plasma urea nitroge n measurement (mass/volume)on 12-22-2021 Urea nitrogen [Mass/Vol] 16 mg/dL 7-18 [facility] Work Phone: Thin prep Papanicolaou smear with manual screeningon 12-22-2021 Thin prep Papanicolaou smear with manual screening 22 U/L 15-37 [facility] Work Phone: Thin prep Papanicolaou smear with manual screening 7 5-15 [facility] Work Phone: XR Lumbar spine 2 Viewson IMPRESSION: Degenera tive changes as detailed in report. Anterolisthesis of L4 on L5 does not change on flexion and extension and compared to prior examination. No obvious pars interarticularis defect. Senior Process Control Tech: PATO Transcribe Date/Time: Sep 23 2021 2:17P Dictated by : BILL PAULINO MD This examination was interpreted and the report reviewed and electronically signed by: BILL PAULINO MD on Sep 23 2021 2:20PM EST DIVISION OF RADIOLOGY * * *Final [...] calcification and cholelithiasis. DIVISION OF RADIOLOGY Provider, [facility] - 09/23/2021 * * *Final Report* * [...] prior examination. No obvious pars interarticularis defect. Senior Process Control Tech: PSCB Transcribe Date/Time: Sep 23 2021 2:17P Dictated by : BILL PAULINO MD This examination was interpreted and the report reviewed and electronically signed by: BILL PAULINO MD on Sep 23 2021 2:20PM EST [facility] Radiology Study observation (narrative) [facility] XR Lumbar spine 2 ViewsOrder ed By: [facility] Provider on 09-23-2021 [facility] XR Lumbar spine AP and Later al and obliqueon 09-19-2021 IMPRESSION: Lumbar s pine degenerative changes as described above. Senior Process Control Tech: PSCB Transcribe Date/Time: Sep 19 2021 1:05P Dictated by : MELVIN MOON MD This examination was interpreted and the report reviewed and electronically signed by: MELVIN MOON MD on Sep 19 2021 1:07PM EST DIVISION OF RADIOLOGY * * *Final [...] spine are presented. FINDINGS: There are five [id number] lumbar vertebrae. No acute fracture seen. There is grade 1 L4 on L5 anterolisthesis. The disc spaces are grossly preserved. There is mild osteophyte formation, with facet arthrosis in the lower lumbar spine. Kissing spine seen on lateral view. Others: There is a 3.3 cm ovoid opacity in the right lateral abdomen, presumably representing gallbladder stone. DIVISION OF RADIOLOGY Provider, [facility] - 09/19/2021 * * *Final Report* * [...] spine are presented. FINDINGS: There are five vko-ado-[id number] lumbar vertebrae. No acute fracture seen. There [...] Lumbar spine degenerative changes as described above. Senior Process Control Tech: PATO Transcribe Date/Time: Sep 19 2021 1:05P Dictated by : MELVIN MOON MD This examination was interpreted and the report reviewed and electronically signed by: MELVIN MOON MD on Sep 19 2021 1:07PM EST [facility] Radiology Study observation (narrative) [facility] XR Lumbar spine AP and Later al and obliqueOrdered By: [facility] Provider on 09-19-2021 [facility] Vital Signs Date Time Vital Sign Value Performing Clinician Facility 05-28-2025 15:10-0400 Body temperature 97 [degF] Dr. Kade Fry MD Work Phone: [facility] 05-28-2025 15:10-0400 Diastolic blood pressure 65 mm[Hg] Dr. Kade Fry MD Work Phone: [facility] 05-28-2025 15:10-0400 Heart rate 56 /min Dr. Kade Fry MD Work Phone: [facility] 05-28-2025 15:10-0400 Respiratory rate 18 /min Dr. Kade Fry MD Work Phone: [facility] 05-28-2025 15:10-0400 SaO2% (BldA) [Mass fraction] 98 % Dr. Kade Fry MD Work Phone: [facility] 05-28-2025 15:10-0400 Systolic blood pressure 158 mm[Hg] Dr. Kade Fry MD Work Phone: 9(260)470-432311 [place] [address] 05-28-2025 12:15-0400 Inhaled oxygen flow rate 2 L/min Dr. Kade Fry MD Work Phone: 8(572)368-611511 [place] [address] 05-28-2025 06:24-0400 Body height 166.[address] Kade Fry MD Work Phone: 8(237)534-821711 [place] [address] 05-28-2025 06:24-0400 Body mass index (BMI) [Ratio] 31 kg/m2 Dr. Kade Fry MD Work Phone: 0(669)722-696111 [place] [address] 05-28-2025 06:24-0400 Body weight [address] Kade Fry MD Work Phone: 5(972)479-048911 [place] [address] 05-03-2025 13:36-0400 Body height 154.[address] Kade Fry MD Work Phone: 3(488)323-113911 [place] [address] 05-03-2025 13:36-0400 Body mass index (BMI) [Ratio] 36.2 kg/m2 Dr. Kade Fry MD Work Phone: 3(880)207-334011 [place] [address] 05-03-2025 13:36-0400 Body weight 87.[address] Kade Fry MD Work Phone: 1(314)993-937011 [place] [address] 05-03-2025 13:36-0400 Diastolic blood pressure 84 mm[Hg] Dr. Kade rFy MD Work Phone: 8(968)235-297711 [place] [address] 05-03-2025 13:36-0400 Heart rate 67 /min Dr. Kade Fry MD Work Phone: 8(452)129-440111 [place] [address] 05-03-2025 13:36-0400 Respiratory rate 17 /min Dr. Kade Fry MD Work Phone: 4(013)388-370511 [place] [address] 05-03-2025 13:36-0400 SaO2% (BldA) [Mass fraction] 97 % Dr. Kade Fry MD Work Phone: 6(164)420-111511 [place] [address] 05-03-2025 13:36-0400 Systolic blood pressure 172 mm[Hg] Dr. Kade Fry MD Work Phone: 8(366)368-542911 [place] [address] 02-12-2025 11:23-0400 Body temperature 97.8 [degF] Dr. Kade Fry MD Work Phone: 3(654)408-064311 [place] [address] 02-12-2025 11:23-0400 Diastolic blood pressure 68 mm[Hg] Dr. Kade Fry MD Work Phone: 4(244)487-101111 [place] [address] 02-12-2025 11:23-0400 Heart rate 53 /min Dr. Kade Fry MD Work Phone: 3(334)801-474111 [place] [address] 02-12-2025 11:23-0400 Respiratory rate 16 /min Dr. Kade Fry MD Work Phone: 0(919)350-004111 [place] [address] 02-12-2025 11:23-0400 SaO2% (BldA) [Mass fraction] 98 % Dr. Kade Fry MD Work Phone: 8(979)980-685211 [place] [address] 02-12-2025 11:23-0400 Systolic blood pressure 123 mm[Hg] Dr. Kade Fry MD Work Phone: 2(810)642-670811 [place] [address] 02-12-2025 09:26-0400 Body height 154.[address] Kade Fry MD Work Phone: 0(494)315-705911 [place] [address] 02-12-2025 09:26-0400 Body mass index (BMI) [Ratio] 36.1 kg/m2 Dr. Kade Fry MD Work Phone: 1(794)337-312693 [place] [address] 02-12-2025 09:26-0400 Body weight 86.[address] Kade Fry MD Work Phone: 8(992)048-838511 [place] [address] 09-21-2024 09:29-0500 Diastolic blood pressure 78 mm[Hg] Kade Fry MD Work Phone: 1(196)044-885174 [place] [address] 09-21-2024 09:29-0500 Systolic blood pressure 138 mm[Hg] Kade Fry MD Work Phone: 5(880)818-538574 [place] [address] 09-21-2024 08:36-0500 Body height 156.2 cm Kade Fry MD Work Phone: [facility] 09-21-2024 08:36-0500 Body mass index (BMI) [Ratio] 36.21 kg/m2 Kade Fry MD Work Phone: [facility] 09-21-2024 08:36-0500 Body weight 88.36 kg Kade Fry MD Work Phone: [facility] 09-21-2024 08:36-0500 Heart rate 58 /min Kade Fry MD Work Phone: [facility] 09-21-2022 09:12-0500 Body height 157 cm Ena Aguiar PA-C Work Phone: [facility] 09-21-2022 09:12-0500 Body weight 87.73 kg Ena Aguiar PA-C Work Phone: [facility] 09-21-2022 09:12-0500 Diastolic blood pressure 80 mm[Hg] Ena Aguiar PA-C Work Phone: [facility] 09-21-2022 09:12-0500 Heart rate 68 /min Ena Aguiar PA-C Work Phone: [facility] 09-21-2022 09:12-0500 Respiratory rate 16 /min Ena Aguiar PA-C Work Phone: [facility] 09-21-2022 09:12-0500 Systolic blood pressure 132 mm[Hg] Ena Aguiar PA-C Work Phone: [facility] 06-18-2022 10:05-0400 Body temperature 97.7 [degF] Chapis Sherley [employer] ENGLISH TUTOR Work Phone: [facility] 06-18-2022 10:05-0400 Body weight 87.54 kg Chapis Sherley [employer] ENGLISH TUTOR Work Phone: [facility] 06-18-2022 10:05-0400 Diastolic blood pressure 88 mm[Hg] Chapis Sherley [employer].ACT ENGLISH TUTOR Work Phone: [facility] 06-18-2022 10:05-0400 Heart rate 80 /min Chapis Sherley [employer].ACT ENGLISH TUTOR Work Phone: [facility] 06-18-2022 10:05-0400 Respiratory rate 18 /min Chapis Sherley [employer].ACT ENGLISH TUTOR Work Phone: [facility] 06-18-2022 10:05-0400 SaO2% (BldA) [Mass fraction] 98 % Chapis Sherley [employer].ACT ENGLISH TUTOR Work Phone: [facility] 06-18-2022 10:05-0400 Systolic blood pressure 162 mm[Hg] Chapis Sherley [employer] ENGLISH TUTOR Work Phone: [facility] 11-12-2021 10:03-0400 Body height 154.9 cm Sayra [place] PA-C Work Phone: [facility] 11-12-2021 10:03-0400 Body temperature 98.01 [degF] Sayra Katey PA-C Work Phone: [facility] 11-12-2021 10:03-0400 Body weight 84.37 kg Sayra [place] PA-C Work Phone: [facility] 11-12-2021 10:03-0400 Diastolic blood pressure 78 mm[Hg] Sayra [place] PA-C Work Phone: [facility] 11-12-2021 10:03-0400 Heart rate 72 /min Sayra [place] PA-C Work Phone: [facility] 11-12-2021 10:03-0400 SaO2% (BldA) [Mass fraction] 96 % Sayra [place] PA-C Work Phone: [facility] 11-12-2021 10:03-0400 Systolic blood pressure 122 mm[Hg] Sayra [place] PA-C Work Phone: [facility] Encounters Encounter Date Encounter Type Care Provider Facility Start: 07-03-2025 ambulatory KADE Rodney ty:[facility] Start: 06-29-2025 ambulatory Dina Ferrer Facility :[facility] Start: 06-20-2025 Encounter for other preprocedural examination Tavon Beauchamp [facility] Start: 06-06-2025 End: 06-06-[address] Tavon Beauchamp MD -[facility] Work Phone: Start: 06-06-2025 End: 06-06-[address] Kade Fry MD Work Phone: -[facility] Start: 05-28-2025 ambulatory Tavon Beauchamp Facility: [facility] Start: 05-28-2025 Non-patient / Non-visit Dr. Fatoumata Beauchamp MD -[facility] Start: 05-28-2025 End: 05-28-2025 Admission to same day surgery center Dr. Tavon Beauchamp [facility] Start: 05-28-2025 End: 05-28-[address] Kade Fry MD Work Phone: -[facility] Start: 05-15-2025 Non-patient / Non-visit Dr. Yrai PEARSON -[place] [facility] Work Phone: Start: 05-04-2025 End: 05-07-2025 Chart abstracting Ree Ng MA [facility] Comment on above: ext document (Surger y note); Outside Egyz-Gqq-PGR Ordered Start: 05-03-2025 End: 05-03-[address] Kade Fry MD Work Phone: -Laboratory Specimen Start: 05-03-2025 End: 05-03-[address] Tavon Beauchamp MD -[facility] Work Phone: Start: 05-03-2025 End: 05-03-[address] Tavon Beauchamp MD -[facility] Work Phone: Start: 05-03-2025 End: 05-03-[address] Kade Fry MD Work Phone: -[facility] Start: 05-03-2025 End: 05-03-2025 ambulatory Tavon Beauchamp Facility:[facility] Start: 04-06-2025 End: 04-06-2025 Patient encounter procedure Zulma AGARWAL -[facility] Work Phone: Start: 04-06-2025 End: 04-06-[address] Kade Fry MD Work Phone: -[facility] Start: 04-02-2025 End: 04-02-[address] Kade Fry MD Work Phone: -[facility] Start: 04-02-2025 End: 04-02-2025 Patient encounter procedure Zulma AGARWAL -[facility] Work Phone: Start: 04-02-2025 End: 04-02-2025 ambulatory Kade Fry Facility:[facility] Start: 03-27-2025 End: 03-27-[address] Kade Fry MD Work Phone: -[facility] [place] Start: 03-27-2025 End: 03-27-[address] Dina Ferrer MD -[facility] [place] Work Phone: Start: 03-27-2025 End: 03-27-2025 ambulatory Kade Fry Facility:[facility] Start: 03-09-2025 End: 03-09-2025 Patient encounter procedure Zulma AGARWAL -[facility] Work Phone: Start: 03-09-2025 End: 03-09-[address] Kade Fry MD Work Phone: [facility] Start: 02-12-2025 End: 02-12-2025 Chart abstracting Kade Fry MD Work Phone: [facility] Comment on above: Outside Testing (EGD , Colonoscopy, and GI OV note) Start: 02-12-2025 Non-patient / Non-visit Darrin Garcia nd, DO -[facility] Start: 02-12-2025 End: 02-12-2025 Admission to same day surgery center Darrinmeka Lozoya DO -Endoscopy Work Phone: Start: 02-12-2025 End: 02-12-[address] Kade Fry MD Work Phone: [facility] Work Phone: Start: 01-19-2025 End: 01-19-2025 Refill Kade Fry MD Work Phone: [facility] [place] Comment on above: Refill Request Start: 12-26-2024 End: 12-26-[address] Kade Fry MD Work Phone: [facility] Work Phone: Start: 12-26-2024 End: 12-26-[address] Dina Ferrer MD -Laboratory, [place] Work Phone: Start: 12-26-2024 End: 12-26-2024 ambulatory Kade Fry Facility:[facility] Start: 12-19-2024 End: 12-19-2024 Chart abstracting Kade Fry MD Work Phone: Family [facility] Comment on above: Outside Gastric Empt radha Study Start: 12-18-2024 End: 12-18-2024 Patient encounter procedure Darrin Devora DO -Nuclear Medicine, [facility] Work Phone: Start: 12-18-2024 End: 12-18-2024 ambulatory Darrin Lozoya Facility:[facility] Start: 12-05-2024 End: 12-06-2024 Follow-up encounter Kade Fry MD Work Phone: [facility] [place] Start: 12-05-2024 End: 12-05-2024 ambulatory KADE FRY Facility:[facility] Start: 12-05-2024 End: 12-05-2024 Subsequent hospital visit by physician Diagnostic Mammo [facility] Comment on above: Abnormal mammogram [ R92.8] Start: 12-01-2024 End: 12-01-2024 Chart abstracting Kade Fry MD Work Phone: [facility] [place] Comment on above: Outside Kukb-Uhz-EJN Ordered Start: 11-29-2024 End: 11-29-2024 Chart abstracting Feliciano Leahy MA Family Medicine [place] Comment on above: Results (Outside fac ility labs /) Start: 11-27-2024 End: 11-27-2024 ambulatory MANOJ GAMINO Facility:[facility] Start: 11-27-2024 End: 11-27-2024 Patient encounter procedure Manoj Gamino MD Work Phone: Orthopaedics Comment on above: Carpal tunnel syndro me of left wrist (Primary Dx); Trigger thumb, left thumb Start: 11-27-2024 End: 11-27-[address] Kade Fry MD Work Phone: [facility] Work Phone: Start: 11-27-2024 End: 11-27-2024 Patient encounter procedure Darrin Lozoya DO -Laboratory Work Phone: Start: 11-27-2024 End: 11-27-2024 Patient encounter procedure Darrin Lozoya DO -[facility] Work Phone: Start: 11-27-2024 End: 11-27-2024 ambulatory Kade Fry Facility:[facility] Start: 11-27-2024 End: 11-27-2024 ambulatory Darrin Lozoya Facility:[facility] Start: 11-23-2024 End: 11-23-2024 ambulatory CHETAN BHAGAT Facility:[facility] Start: 11-23-2024 End: 11-23-2024 Patient encounter procedure Chetan Bhagat Work Phone: Podiatry Comment on above: Open wound of toe, i nitial encounter (Primary Dx) Start: 11-15-2024 End: 11-15-2024 Chart abstracting Feliciano Leahy MA Family Medicine [address] Comment on above: Consult (Outside Mike rology /) Start: 11-15-2024 End: 11-15-2024 Telephone encounter Isidra Andrade MD Work Phone: Mammography Comment on above: Mammogram Result Carrington l Back (right breast diag mamm and us cb per ym) Start: 11-14-2024 ambulatory Manoj Gamino Facility :[facility] Start: 11-14-2024 Non-patient / Non-visit Dr. Audrey Bello MD -[facility] Start: 11-14-2024 End: 11-14-[address] Kade Fry MD Work Phone: [facility] Work Phone: Start: 11-14-2024 End: 11-14-[address] Manoj Gamino MD -Pulmonary Services/Neurology Work Phone: Start: 11-13-2024 End: 11-15-2024 Follow-up encounter Kade Fry MD Work Phone: [facility] [place] Comment on above: Results Start: 11-13-2024 End: 11-14-2024 ambulatory Manoj Gamino Facility:[facility] Start: 11-13-2024 End: 11-13-2024 Subsequent hospital visit by physician Screen Mammo [facility] Comment on above: Encounter for screen ing mammogram for breast cancer [Z12.31] Start: 10-31-2024 End: 10-31-2024 ambulatory CHETAN BHAGAT Facility:[facility] Start: 10-31-2024 End: 10-31-2024 Patient encounter procedure Chetan Bhagat Work Phone: Podiatry Comment on above: Onychodystrophy (Christianne tova Dx) Start: 10-17-2024 End: 10-18-2024 Follow-up encounter Chetan Bhagat Work Phone: Podiatry Start: 10-17-2024 End: 10-17-2024 ambulatory CHETAN BHAGAT Facility:[facility] Start: 10-16-2024 End: 10-16-2024 ambulatory CHETANCIELO BHAGAT Facility:[facility] Start: 10-16-2024 End: 10-16-2024 Patient encounter procedure Chetan Bhagat Work Phone: Podiatry Comment on above: Onychodystrophy (Christianne tova Dx); Pain in toes of both feet; Diminished pulses in lower extremity Start: 10-16-2024 End: 10-16-2024 ambulatory MANOJ GAMINO Facility: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 Dina Ferrer MD -Laboratory, [place] Work Phone: Start: 10-03-2024 End: 10-03-2024 ambulatory Dina Ferrer Facility:[facility] Start: 09-25-2024 End: 09-25-2024 Refill Kade Fry MD Work Phone: [facility] Comment on above: Refill Request Start: 09-21-2024 Patient encounter procedure KADE FRY [facility] Start: 09-21-2024 End: 09-21-2024 Patient encounter procedure Kade Fry MD Work Phone: [facility] Comment on above: Encounter for [...] Start: 09-21-2024 End: 09-21-2024 ambulatory KADE FRY Facility:[facility] Start: 09-14-2024 End: 09-14-2024 ambulatory KADE FRY Facility:[facility] Start: 08-11-2024 End: 08-11-2024 Telephone encounter Kade Fry MD Work Phone: [facility] Comment on above: Medication Problem; Orders Start: 07-14-2024 End: 07-14-2024 ambulatory Dina Ferrer Facility:[facility] Start: 05-22-2024 End: 05-22-2024 Chart abstracting [facility]ade [facility] MD [facility] Comment on above: Outside Hevt-Pxn-RXK Ordered Start: 04-17-2024 End: 04-17-2024 Chart abstracting Feliciano Leahy [facility] Comment on above: Results (Outside lab s /) Start: 02-11-2024 ambulatory Kade apodaca MD Work Phone: [facility] Comment on above: Allied Health Visit (Medication Adherence Outreach/) Start: 01-21-2024 Chart abstracting Kade contreras MD Work Phone: [facility] Start: 01-18-2024 Refill Kade apodaca MD Work Phone: [facility] Comment on above: Refill Request Start: 12-13-2023 Telephone encounter Kade Fry MD Work Phone: [facility] Comment on above: Medication Problem Start: 11-12-2023 Documentation procedure Mammog yvonne Coordinator [facility] Start: 11-12-2023 Letter encounter Mammography Coordinator [facility] Start: 11-12-2023 Telephone encounter Kade Fry MD Work Phone: [facility] Comment on above: Results Start: 11-12-2023 End: 11-12-2023 Subsequent hospital visit by physician Screen Mammo [facility] Comment on above: Encounter for screen ing mammogram for breast cancer [Z12.31] Start: 10-22-2023 End: 10-22-2023 ambulatory [facility] Work Phone: Start: 10-22-2023 End: 10-22-2023 Patient encounter procedure [facility] Work Phone: Start: 10-06-2023 Telephone encounter Kade Fry MD Work Phone: [facility] Comment on above: Bone Density Test Qu estion Start: 09-21-2023 Patient encounter procedure Kade Fry MD Work Phone: [facility] Work Phone: Start: 08-24-2023 End: 08-24-2023 Subsequent hospital visit by physician Xr [facility] Work Phone: Radiology Comment on above: Cat bite of left kirsty d, initial encounter [S61.452A, W55.01XA] Start: 07-27-2023 Chart abstracting Kade contreras MD Work Phone: [facility] Comment on above: Outside Iiko-Djr-GGO Ordered Start: 07-23-2023 End: 07-23-2023 [facility] Work Phone: Start: 07-23-2023 End: 07-23-2023 Patient encounter procedure [facility] Work Phone: Start: 07-21-2023 Refill Kade apodaca MD Work Phone: [facility] Comment on above: Refill Request Start: 05-07-2023 Chart abstracting Kade contreras MD Work Phone: [facility] Comment on above: Outside Sxov-Qbv-XNQ Ordered Start: 05-07-2023 End: 05-07-2023 [facility] Work Phone: Start: 05-07-2023 End: 05-07-2023 Patient encounter procedure [facility] Work Phone: Start: 02-05-2023 End: 02-05-2023 [facility] Work Phone: Start: 02-05-2023 End: 02-05-2023 Patient encounter procedure [facility] Start: 01-26-2023 ambulatory Addie Pugh (Pss) [facility] Comment on above: Population Health Na vigation Outreach ([employer] Gaps) Start: 11-26-2022 Chart abstracting Kade contreras MD Work Phone: [facility] Comment on above: Results, Lab Start: 11-20-2022 End: 11-20-2022 ambulatory [facility] Work Phone: Start: 11-20-2022 End: 11-20-2022 Patient encounter procedure [facility] Start: 11-09-2022 Documentation procedure Mammog yvonne Coordinator [facility] Start: 11-09-2022 Letter encounter Mammography Coordinator [facility] Start: 11-09-2022 Telephone encounter Addie mondragon APRN.CNP Work Phone: [facility] Comment on above: Results Start: 11-06-2022 End: 11-06-2022 Subsequent hospital visit by physician Screen Mammo [facility] Comment on above: Encounter for screen ing mammogram for breast cancer [Z12.31] Start: 09-21-2022 End: 09-21-2022 Patient encounter procedure Ena Aguiar PA-C Work Phone: [facility] Comment on above: Medicare annual well [facility] visit, initial (Primary Dx); Advance directive discussed with patient; Essential hypertension; Mixed hyperlipidemia; GERD without esophagitis; Inflammatory arthritis; Fibromyalgia; Cassidy's thyroiditis; Mixed stress and urge urinary incontinence; Elevated glucose; Encounter for screening mammogram for breast cancer; Screening for colon cancer; Onychomycosis Start: 09-08-2022 Telephone encounter Kade Fry MD Work Phone[facility] Comment on above: Lab Orders Start: 08-26-2022 End: 08-26-2022 ambulatory [facility] Work Phone: Start: 08-26-2022 End: 08-26-2022 Patient encounter procedure [facility] Start: 08-05-2022 Refill Kade apodaca MD Work Phone: [facility] Comment on above: Refill Request Start: 06-18-2022 End: 06-18-2022 Patient encounter procedure Chapis Lepe APRN.[facility] Work Phone: [facility] Comment on above: Tick bite of right t high, initial encounter (Primary Dx) Start: 06-02-2022 End: 06-02-2022 Patient encounter procedure [facility] Start: 04-10-2022 End: 04-10-2022 ambulatory [facility] Work Phone: Start: 04-10-2022 End: 04-10-2022 Patient encounter procedure [facility] Start: 02-16-2022 End: 02-16-2022 Patient encounter procedure [facility] Start: 12-22-2021 Chart abstracting Kade contreras MD Work Phone: [facility] Comment on above: external labs Start: 12-22-2021 End: 12-22-2021 Patient encounter procedure [facility] Start: 11-12-2021 End: 11-12-2021 Patient encounter procedure Sayra Del Toro PA-C Work Phone: General Surgery Comment on above: Tortuous colon (Prim adriel Dx); Internal hemorrhoids; Diverticulosis; Dysphagia, unspecified type Start: 09-23-2021 End: 09-23-2021 Subsequent hospital visit by physician Xr [facility] Work Phone: Radiology Comment on above: Spondylolisthesis at L4-L5 level [M43.16] Start: 09-19-2021 Patient encounter procedure Sayra Del Toro PA-C Work Phone: [facility] Work Phone: Start: 09-19-2021 End: 01-28-2022 Subsequent hospital visit by physician Xr [facility] Work Phone: Radiology Comment on above: Chronic low back charles n without sciatica, unspecified back pain laterality [M54.50, G89.29] Start: 10-29-2020 End: 10-29-2020 Discharged Recurring [facility]-Immunizations Procedures Date Procedure Procedure Detail Performing Clinician [...] Work Phone: Comment on above: Performed at: [address] [id number] Director: Eliazar Posadas PhD, Phone: [phone] at: [facility] [address] [id number] Director: Praveen Khan MD, Phone: [phone] Start: 11-13-2024 Screening digital br east tomosynthesis [...] DTaP,Tdap,Td Vaccine (2 - Td or Tdap) [facility] Start: 09-14-2029 Lipid panel Lipid Screening [facility] Start: 09-20-2028 Lipid panel Lipid Screening [facility] Start: 02-13-2028 Screening for malignant neoplasm of colon [facility] Start: 09-14-2027 Diabetes Screening Diabetes Screening [facility] Start: 09-10-2027 Lipid 1996 panel - Serum or Plasma Lipid Screening [facility] Start: 09-10-2027 LIPID SCREEN LIPID SCREEN [facility] Start: 09-20-2026 Diabetes Screening Diabetes Screening [facility] Start: 09-02-2026 LIPID SCREEN LIPID SCREEN [facility] Start: 11-13-2025 Screening for malignant neoplasm of breast Mammogram Screening [facility] Start: 09-21-2025 Annual PCP Team Chronic Disease Visit Annual PCP Team Chronic Disease Visit [facility] Start: 09-21-2025 Anxiety Screening Anxiety Screening [facility] Start: 09-21-2025 BP Controlled (<130/80) BP Controlled (<130/80) [facility] Start: 09-21-2025 Depression Screening Depression Screening [facility] Start: 09-21-2025 DIABETES SCREEN DIABETES SCREEN [facility] Start: 09-21-2025 Diabetes Screening Diabetes Screening [facility] Start: 09-21-2025 End: 09-21-2025 Patient encounter procedure [facility] [place] Comment on above: medicare wellness Start: 08-23-2025 Screening for malignant neoplasm of colon Colorectal Cancer Screening [facility] Comment on above: Postponed from 1999 (Declined at t his time) Start: 07-03-2025 End: 07-03-2025 Patient encounter procedure Mammogram Comment on above: Dx: Abnormal mammogram [R92.8] Start: 06-12-2025 End: 06-12-2025 Patient encounter procedure Mammogram Comment on above: Dx: Abnormal mammogram [R92.8] Start: 06-06-2025 End: 01-04-2026 MG Breast - right Diagnostic for implant LEIGH DIAGNOSTIC RIGHT Radiology Routine Abnormal mammogram Expected: 06/06/2025, Expires: 01/04/2026 Work Phone: Comment on above: Expected: 06/06/2025, Expires: Start: 05-28-2025 Anesthesia intraperitoneal lower abd w/laps nos ANESTH SURG LOWER ABDOMEN [facility] Start: 05-28-2025 RPR AA HRN 1ST 3-10 RDC RPR AA HRN 1ST 3-10 RDC [facility] Start: 05-28-2025 Patient discharge [facility] Start: 05-03-2025 Methicillin resistant Staphylococcus aureus screening test [facility] Start: 05-03-2025 Nasal Screen MRSA/MSSA Nasal Screen MRSA/MSSA [facility] Start: 04-23-2025 Influenza vaccination Influenza Vaccine (#1) [facility] Start: 04-02-2025 Computed tomography of abdomen and pelvis with contrast Abdomen/Pelvis WITH Contrast [facility] Start: 04-02-2025 CT Abdomen and Pelvis W contrast IV [facility] Start: 02-12-2025 Colonoscopy DIAGNOSTIC COLONOSCOPY [facility] Start: 02-12-2025 Colonoscopy flx dx w/collj spec when pfrmd DIAGNOSTIC COLONOSCOPY [facility] Start: 02-12-2025 Egd transoral biopsy single/multiple EGD BIOPSY SINGLE/MULTIPLE [facility] Start: 02-12-2025 Patient discharge [facility] Start: 12-08-2024 Covid-19 Vaccine ( season) Covid-19 Vaccine () [facility] Comment on above: Postponed from 08/04/2024 (Postponed - N ot Clinically Indicated) Start: 12-08-2024 Covid-19 Vaccine (6 - Pfizer risk season) Covid-19 Vaccine (6 - Pfizer risk ) [facility] Start: 12-05-2024 End: 12-05-2024 Patient encounter procedure Mammogram Comment on above: right breast diag mamm and us cb per ym Comp- RT CB Start: 11-27-2024 End: 11-27-2024 Patient encounter procedure 11/27/2024 2:30 PM EDT Office Visit Orthopaedics [address] [place] [address] Manoj Gamino MD [address] [place] [address] folllow up for results Orthopaedics Comment on above: folllow up for results Start: 11-23-2024 End: 11-23-2024 Patient encounter procedure Podiatry Comment on above: 3 wk follow up Start: 11-13-2024 End: 11-13-2024 Patient encounter procedure 11/13/2024 10:10 AM EDT Appointment Mammogram [address] [place], [place] [id number] Encounter for screening mammogram for breast cancer [Z12.31] Mammogram Comment on above: Encounter for screening mammogram for br east cancer [Z12.31] Start: 11-11-2024 Screening for malignant neoplasm of breast Mammogram Screening [facility] Start: 10-31-2024 End: 10-31-2024 Patient encounter procedure 10/31/2024 10:45 AM EDT Office Visit Podiatry [address] [place], [place] [id number] Chetan Bhagat [address] [address] Remove 3 toenails -- make appt 45 min per nurse. Podiatry Comment on above: Remove 3 toenails -- make appt 45 min pe r nurse. Start: 10-17-2024 End: 10-17-2024 Patient encounter procedure 10/17/2024 10:00 AM EST Office Visit Vasculary Surgery [address] [place] [address] : Pain in toes of both feet [M79.674, M79.675]; Onychodystrophy [L60.3]; Diminished pulses in lower extremity [R09.89] [facility] Comment on above: : Pain in toes of both feet [M79.674, M7 9.675]; Onychodystrophy [L60.3]; Diminished pulses in lower extremity [R09.89] Start: 10-16-2024 End: 10-16-2024 Patient encounter procedure 10/16/2024 10:45 AM EST Office Visit Podiatry [address] [place] [address] Chetan Bhagat [address] [address] Pain in toes of both feet [M79.674, M79.675] Podiatry Comment on above: Pain in toes of both feet [M79.674, M79. 675] Start: 10-16-2024 End: 10-16-2024 Patient encounter procedure 10/16/2024 9:15 AM EST Office Visit Orthopaedics [address] [place] [address] Manoj Gamino MD [address] [facility] [place] [place] [address] Numbness and tingling in left hand [R20.0, R20.2]; Trigger finger of left thumb [M65.312] Orthopaedics Comment on above: Numbness and tingling in left hand [R20. 0, R20.2]; Trigger finger of left thumb [M65.312] Start: 10-06-2024 DIABETES SCREEN DIABETES SCREEN [facility] Start: 09-21-2024 Annual PCP Team Chronic Disease Visit Annual PCP Team Chronic Disease Visit [facility] Start: 09-21-2024 BP Controlled (<130/80) BP Controlled (<130/80) [facility] Start: 09-21-2024 Covid-19 Vaccine (5 - 2023-24 season) Covid-19 Vaccine () [facility] Comment on above: Postponed from 04/23/2023 (Declined at t his time) Start: 09-21-2024 End: 09-21-2024 Patient encounter procedure 09/21/2024 8:40 AM EST Office Visit [facility] [place] [address] [place] [place], [place] [address] Kade Fry MD [address] [place] [address] Medicare Wellness [facility] [place] Comment on above: Medicare Wellness Start: 09-06-2024 Screening for malignant neoplasm of colon Colorectal Cancer Screening [facility] Comment on above: Postponed from 1999 (Declined at t his time) Start: 08-11-2024 End: 11-10-2024 CBC W Auto Differential panel - Blood COMPLETE BLOOD COUNT AND DIFFERENTIAL Lab Routine Cassidy's thyroiditis Medication management Expected: 08/11/2024, Expires: 11/10/2024 [facility] Comment on above: Expected: 08/11/2024, Expires: Start: 08-11-2024 End: 11-10-2024 Cobalamin (Vitamin B12) [Mass/volume] in Serum or Plasma VITAMIN B12 Lab Routine GERD without esophagitis Medication management Expected: 08/11/2024, Expires: 11/10/2024 Work Phone: Comment on above: Expected: 08/11/2024, Expires: Start: 08-11-2024 End: 11-10-2024 Comprehensive metabolic 2000 panel - Serum or Plasma COMPREHENSIVE METABOLIC PANEL Lab Routine Essential hypertension Mixed hyperlipidemia Elevated blood sugar Expected: 08/11/2024, Expires: 11/10/2024 [facility] Comment on above: Expected: 08/11/2024, Expires: Start: 08-11-2024 End: 11-10-2024 Hemoglobin A1c in Blood HEMOGLOBIN A1C Lab Routine Elevated blood sugar Expected: 08/11/2024, Expires: 11/10/2024 [facility] Comment on above: Expected: 08/11/2024, Expires: 5 Start: 08-11-2024 End: 11-10-2024 LIPID PANEL, NONFASTING LIPID PANEL, NONFASTING Lab Routine Essential hypertension Mixed hyperlipidemia Expected: 08/11/2024, Expires: 11/10/2024 [facility] Comment on above: Expected: 08/11/2024, Expires: 5 Start: 08-11-2024 End: 11-10-2024 Magnesium [Mass/volume] in Serum or Plasma MAGNESIUM Lab Routine GERD without esophagitis Medication management Expected: 08/11/2024, Expires: 11/10/2024 [facility] Comment on above: Expected: 08/11/2024, Expires: 5 Start: 08-11-2024 End: 11-10-2024 Thyrotropin [Units/volume] in Serum or Plasma THYROID STIMULATING HORMONE Lab Routine Cassidy's thyroiditis Expected: 08/11/2024, Expires: 11/10/2024 [facility] Comment on above: Expected: 08/11/2024, Expires: 5 Start: 08-11-2024 End: 11-10-2024 Urinalysis complete panel - Urine URINALYSIS, WITH MICROSCOPIC Lab Routine Essential hypertension Mixed hyperlipidemia Expected: 08/11/2024, Expires: 11/10/2024 [facility] Comment on above: Expected: 08/11/2024, Expires: 5 Start: 04-23-2024 Covid-19 Vaccine () Covid-19 Vaccine () [facility] Start: 04-23-2024 Covid-19 Vaccine () Covid-19 Vaccine () [facility] Start: 04-23-2024 [facility]enza [facility] Start: 11-07-[address] [facility] Start: 11-07-2023 Screening for malignant neoplasm of breast Mammogram Screening [facility] Start: 09-21-2023 ANNUAL PCP TEAM CHRONIC DISEASE VISIT ANNUAL PCP TEAM CHRONIC DISEASE VISIT [facility] Start: 09-21-2023 BP CONTROLLED (<130/80) BP CONTROLLED (<130/80) [facility] Start: 08-23-2023 Behavioral Health Screening Behavioral Health Screening [facility] Start: 04-23-2023 Covid-19 Vaccine () Covid-19 Vaccine () [facility] Start: 04-23-2023 Influenza vaccination Influenza Vaccine (#1) [facility] Start: 11-12-2022 BP CONTROLLED (<130/80) BP CONTROLLED (<130/80) [facility] Start: 10-29-[address] [facility] Start: 10-29-2022 COLORECTAL CANCER SCREENING COLORECTAL CANCER SCREENING [facility] Start: 10-29-2022 Screening for malignant neoplasm of colon Colonoscopy [facility] Start: 10-07-[address] [facility] Start: 09-19-2022 ANNUAL PCP TEAM CHRONIC DISEASE VISIT ANNUAL PCP TEAM CHRONIC DISEASE VISIT [facility] Start: 09-19-2022 BP CONTROLLED (<130/80) BP CONTROLLED (<130/80) [facility] Start: 09-19-2022 Urine microalbumin profile DTAP,TDAP,TD (1 - Tdap) [facility] Comment on above: Postponed from 1973 (Insurance Cov erage) Start: 09-09-2022 End: 11-09-2022 CBC W Auto Differential panel - Blood CBC + DIFF Lab Routine Essential hypertension Mixed hyperlipidemia Cassidy's thyroiditis Medication management Expected: 09/09/2022, Expires: 11/09/2022 Work Phone: Comment on above: Expected: 09/09/2022, Expires: 3 Start: 09-09-2022 End: 11-09-2022 Comprehensive metabolic 2000 panel - Serum or Plasma COMP METABOLIC PANEL Lab Routine Essential hypertension Expected: 09/09/2022, Expires: 11/09/2022 Work Phone: Comment on above: Expected: 09/09/2022, Expires: 3 Start: 09-09-2022 End: 11-09-2022 Lipid 1996 panel - Serum or Plasma LIPID PANEL BASIC Lab Routine Mixed hyperlipidemia Expected: 09/09/2022, Expires: 11/09/2022 Work Phone: Comment on above: Expected: 09/09/2022, Expires: 3 Start: 09-09-2022 End: 11-09-2022 Magnesium [Mass/volume] in Serum or Plasma MAGNESIUM BLD Lab Routine Medication management Expected: 09/09/2022, Expires: 11/09/2022 Work Phone: Comment on above: Expected: 09/09/2022, Expires: 3 Start: 09-09-2022 End: 11-09-2022 Thyrotropin [Units/volume] in Serum or Plasma TSH BLD Lab Routine Cassidy's thyroiditis Expected: 09/09/2022, Expires: 11/09/2022 Work Phone: Comment on above: Expected: 09/09/2022, Expires: 3 Start: 09-09-2022 End: 11-09-2022 Thyroxine (T4) free [Mass/volume] in Serum or Plasma T4 FREE/FREE THYROX Lab Routine Cassidy's thyroiditis Expected: 09/09/2022, Expires: 11/09/2022 Work Phone: Comment on above: Expected: 09/09/2022, Expires: 3 Start: 09-09-2022 End: 11-09-2022 Urinalysis complete panel - Urine URINALYSIS, WITH MICROSCOPIC Lab Routine Essential hypertension Expected: 09/09/2022, Expires: 11/09/2022 Work Phone: Comment on above: Expected: 09/09/2022, Expires: 3 Start: 08-23-2022 ADVANCE DIRECTIVE DISCUSSION ADVANCE DIRECTIVE DISCUSSION [facility] Start: 08-23-2022 DEPRESSION ASSESSMENT DEPRESSION ASSESSMENT [facility] Start: 07-13-2022 Covid-19 Vaccine (5 - Pfizer risk series) Covid-19 Vaccine (5 - Pfizer risk series) [facility] Start: 10-03-2021 COVID-19 VACCINE (4 - Booster for Pfizer series) COVID-19 VACCINE (4 - Booster for Pfizer series) [facility] Start: 08-23-2021 ADVANCE DIRECTIVE DISCUSSION ADVANCE DIRECTIVE DISCUSSION [facility] Start: 08-23-2021 DEPRESSION ASSESSMENT DEPRESSION ASSESSMENT [facility] Start: 2014 RSV Vaccine (1 - 1-dose 60+ series) RSV Vaccine (1 - 1-dose 60+ series) [facility] Start: 2014 RSV Vaccine (1 - Risk 60-74 years 1-dose series) RSV Vaccine (1 - Risk 60-74 years 1-dose series) [facility] Start: 1999 COLOGUARD (FIT-DNA) COLOGUARD (FIT-DNA) [facility] Start: [address] [facility] Start: 1999 FECAL OCCULT BLOOD FECAL OCCULT BLOOD [facility] Start: 1999 Screening for malignant neoplasm of colon [facility] Start: [address] [facility] Start: [address] [facility] Start: 1972 Anxiety Screening Anxiety Screening [facility] Start: 1972 Depression Screening Depression Screening [facility] End: 11-04-2024 BD DXA TRABECULAR BONE SCORE (TBS) BD DXA TRABECULAR BONE SCORE (TBS) Radiology Routine Asymptomatic menopause 1 Occurrences starting 10/06/2023 until 11/04/2024 Work Phone: Comment on above: 1 Occurrences starting 10/06/2023 until 11/04/2024 CT Abdomen and Pelvi s W contrast IV [facility] End: 10-20-2025 DBT Breast - bilateral screening LEIGH SCREENING W IRISH Radiology Routine Encounter for screening mammogram for breast cancer 1 Occurrences starting 09/21/2024 until 10/20/2025 Work Phone: Comment on above: 1 Occurrences starting 09/21/2024 until 10/20/2025 End: 11-04-2024 DXA Skeletal system.axial Views for bone density DXA-AXIAL SKELETON Radiology Routine Asymptomatic menopause 1 Occurrences starting 10/06/2023 until 11/04/2024 Work Phone: Comment on above: 1 Occurrences starting 10/06/2023 until 11/04/2024 End: 10-16-2025 EMG(NEURO/NI) EMG(NEURO/NI) EMG Routine Numbness and tingling in left hand Carpal tunnel syndrome of left wrist 1 Occurrences starting 10/16/2024 until 10/16/2025 Work Phone: Comment on above: 1 Occurrences starting 10/16/2024 until 10/16/2025 Folate [Moles/volume ] in Serum or Plasma [facility] Hemoglobin A1c/Hemoglobin.total in Blood HEMOGLOBIN A1C (POC) Lab Routine Elevated glucose Ordered: 09/21/2022 Work Phone: Comment on above: Ordered: 09/21/2022 End: 10-21-2023 LEIGH SCREENING LEIGH SCREENING Radiology Routine Encounter for screening mammogram for breast cancer 1 Occurrences starting 09/21/2022 until 10/21/2023 Work Phone: Comment on above: 1 Occurrences starting 09/21/2022 until 10/21/2023 End: 12-13-2025 MG Breast - right Diagnostic for implant LEIGH DIAGNOSTIC RIGHT Radiology Routine Abnormal mammogram 1 Occurrences starting 11/13/2024 until 12/13/2025 Work Phone: Comment on above: 1 Occurrences starting 11/13/2024 until 12/13/2025 Patient referral [facility] Work Phone: Radionuclide gastric emptying study [facility] End: 12-13-2025 US Breast - right limited US BREAST LTD RIGHT Radiology Routine Abnormal mammogram 1 Occurrences starting 11/13/2024 until 12/13/2025 [facility] Comment on above: 1 Occurrences starting 11/13/2024 until 12/13/2025 End: 01-04-2026 US Breast - right limited US BREAST LTD RIGHT Radiology Routine Abnormal mammogram 1 Occurrences starting 12/05/2024 until 01/04/2026 [facility] Comment on above: 1 Occurrences starting 12/05/2024 until 01/04/2026 End: 10-16-2025 US.doppler Extremity arteries - bilateral for physiologic artery study [facility]VR [facility] Routine Pain in toes of both feet Onychodystrophy Diminished pulses in lower extremity 1 Occurrences starting 10/16/2024 until 10/16/2025 Work Phone: Comment on above: 1 Occurrences starting 10/16/2024 until 10/16/2025 [facility] Immunizations Immunization Date Immunization Notes Care Provider Madan william 06-09-2024 influenza, high dose seasonal, preservative-free Kade Fry MD Work Phone: [facility] 06-09-2024 respiratory syncytia l virus (RSV) vaccine, bivalent (ABRYSVO) Kade Fry MD Work Phone: [facility] 06-09-2024 influenza virus vacc ine, unspecified formulation Ree Ng MA [facility] 08-24-2023 tetanus toxoid, redu angelic diphtheria toxoid, and acellular pertussis vaccine, adsorbed Kade Fry MD Work Phone: [facility] 06-21-2023 influenza (aIIV4) vaccine, age 65+ yr, quadrivalent, PF (FLUAD QUAD) Kade Fry MD Work Phone: [facility] Work Phone: 06-21-2023 influenza virus vacc ine, unspecified formulation Feliciano Leahy MA [facility] 05-18-2022 influenza (aIIV4) vaccine, age 65+ yr, quadrivalent, PF (FLUAD QUAD) Kade Fry MD Work Phone: [facility] Work Phone: 05-18-2022 influenza virus vacc ine, unspecified formulation Kade Fry MD Work Phone: [facility] 05-01-2021 influenza (HD-IIV4) vaccine, age 65+ yr, high dose, quadrivalent, PF (FLUZONE HIGH-DOSE) Kade Fry MD Work Phone: [facility] Work Phone: 05-01-2021 influenza, high dose seasonal, preservative-free Sayra Del Toro PA-C Work Phone: [facility] 04-23-2021 zoster vaccine recombinant Sayra Katey PA-C Work Phone: [facility] 01-21-2021 zoster vaccine recombinant Sayra [place] PA-C Work Phone: [facility] 11-19-2020 Covid (Pfizer) [facility] 10-29-2020 Covid (Pfizer) [facility] 09-18-2020 pneumococcal polysaccharide vaccine, 23 valent Sayra Katey PA-C Work Phone: [facility] 05-25-2020 influenza, high-dose , quadrivalent vaccine (FLUZONE HIGH DOSE QUADRIVALENT) Sayra [place] PA-C Work Phone: [facility] 08-28-2019 pneumococcal conjuga te vaccine, 13 valent Sayra [place] PA-C Work Phone: [facility] Work Phone: 06-17-2019 influenza, high dose seasonal, preservative-free Sayra Katey PA-C Work Phone: [facility] 05-02-2018 influenza, injectabl e, quadrivalent, contains preservative Sayra [place] PA-C Work Phone: [facility] 07-06-2017 influenza, seasonal, injectable Sayra Katey PA-C Work Phone: [facility] 08-12-2016 influenza, seasonal, injectable Sayra [place] PA-C Work Phone: [facility] 05-23-2014 influenza, seasonal, injectable Sayra Katey PA-C Work Phone: [facility] Work Phone: 05-23-2012 influenza virus vacc ine, unspecified formulation Sayra Katey PA-C Work Phone: [facility] Payers Date Payer Category Payer Self-pay [id number] 2021 Medicare [employer] MEDICARE A ETNA MEDICARE PPO [id number] 2021-Present [phone] [address] [place] [address] PPO [id number] 2021 Medicare [employer] MEDICARE A ETNA MEDICARE PPO [id number] 2021-Present [phone] [address] [place] [address] PPO [id number] 2021 Medicare (Managed Care) [employer] [place] DICARE [id number] 2021 Private Health Insurance [facility] [id number] 2016 Private Health Insurance [id number] 2016 Unknown [id number] Medicare [id number] Unknown [id number] [id number]. 462 Unknown [id number] 2.840.1.414760.3.579.2. 462 Unknown [id number] [id number]. 462 Unknown [id number] 2.16.840.1.890154.3.579.2. 462 Unknown [id number] 2.16.840.1.288469.3.579.2. 462 Unknown [id number] 2.16.840.1.484392.3.579.2. 462 Unknown [id number] 2.16840.1.873788.3.579.2. 462 Unknown [id number] 2.16840.1.231686.3.579.2. 462 Unknown [id number] 2.840.1.689790.3.579.2. 462 Unknown [id number] 2.840.1.759902.3.579.2. 462 Unknown [id number] 2.840.1.321945.3.579.2. 462 Unknown [id number] 2.840.1.480186.3.579.2. 462 Unknown [id number] 2.840.1.019788.3.579.2. 462 Unknown [id number] 2.840.1.490579.3.579.2. 462 Unknown [id number] 2.840.1.806972.3.579.2. 462 Unknown [id number] 2.840.1.834739.3.579.2. 462 Unknown [id number] 2.840.1.167931.3.579.2. 462 Unknown [id number] 2.840.1.923044.3.579.2. 462 Unknown [id number] 2.840.1.625375.3.579.2. 462 Unknown [id number] 2.840.1.622081.3.579.2. 462 Social History Date Type Detail Facility Start: 05-26-2016 End: 05-26-2016 Tobacco smoking status CAIS Unknown if ever smoked [facility] Start: 1955 Sex Assigned At Female [facility] Start: 06-18-2022 End: 05-14-2025 Tobacco smoking status NHIS Never smoked tobacco [facility] Start: 11-12-2021 End: 11-27-2024 Alcohol intake Current non-drinker of alcohol (finding) [facility] Start: 1955 Sex Assigned At Not on file [facility] Start: 08-20-2021 End: 06-18-2022 Exposure to SARS-CoV-2 (event) Not sure [facility] Start: 05-21-2011 End: 06-18-2022 Tobacco use and exposure Smokeless tobacco non-user [facility] Start: 09-21-2022 End: 08-26-2023 History of Social function [facility] Work Phone: Start: 09-21-2022 End: 08-26-[address] [facility] Work Phone: Start: 07-24-2012 Adult Depression Screening Assessment 0 [facility] Work Phone: Start: 11-18-2024 End: 11-30-2024 Sex Female (finding) [facility] NEGATED: Highlighted row Not [facility] Medical Equipment Procedure Code Equipment Code Equipment Origin al Text Equipment Identifier Dates Extra-gynaecolog ical surgical mesh, composite-polymer [id number] FDA Start: 05-28-2025 Goals Date Patient Goal Desired Activity /State Functional Status Date Assessment Result Facility 11-12-2014 Are you deaf, or do you have serious difficulty hearing No 11/12/2014 4:53 PM Carole Jordan RN No [facility] 11-12-2014 Are you blind, or do you have serious difficulty seeing, even when wearing glasses No 11/12/2014 4:53 PM Carole Jordan RN No [facility] 11-12-2014 Do you have serious difficulty walking or climbing stairs No 11/12/2014 4:53 PM Carole Jordan RN No [facility] 11-12-2014 Do you have difficul ty dressing or bathing No 11/12/2014 4:53 PM Carole Jordan RN No [facility] 11-12-2014 Because of a physica l, mental, or emotional condition, do you have difficulty doing errands alone such as visiting a physician's office or shopping No 11/12/2014 4:53 PM Carole Jordan RN No [facility] Mental Status Date Assessment Result Facility 05-28-2025 Cognitive function Voice/Name [facility] Work Phone: 02-12-2025 Cognitive function Voice/Name;To [facility] [facility] Work Phone: 11-12-2014 Because of a physica l, mental, or emotional condition, do you have serious difficulty concentrating, remembering, or making decisions No 11/12/2014 4:53 PM Carole Jordan RN No [facility] Clinical Notes 08-03-2012 to 07-03-2025 Note Date & Type Note Facility 07-03-2025 Note HNO ID: [id number] Author: ENMA VENEGAS RDMS Service: ? Author Type: Size Mixer Type: Progress Notes Filed: 07/03/2025 16:25 Note Text: Radiology Service Progress Note PATIENT NAME: Elisha Godfrey DATE OF SERVICE: July 03, 2025 TIME: 4:25 PM PATIENT IDENTITY VERIFICATION COMPLETED USING TWO [...] PATIENT PRESENTS WITH AN IMPLANTABLE OR ATTACHED PERSONAL LINES INSURANCE AGENT: No RADIOLOGY DEPARTMENT: Ultrasound PERIPHERAL IV DATA: Not applicable SIGNED BY: Enma Venegas RDMS July 03, 2025 4:25 PM [facility] 07-03-2025 Note HNO ID: [id number] Author: TODD ZUNIGA Mammo Tech Service: ? Author Type: Size Mixer Type: Progress Notes Filed: 07/03/2025 14:01 Note Text: Radiology Service Progress Note PATIENT NAME: Elisha Godfrey DATE OF SERVICE: July 03, 2025 TIME: 2:01 PM PATIENT IDENTITY VERIFICATION COMPLETED USING TWO [...] PATIENT PRESENTS WITH AN IMPLANTABLE OR ATTACHED PERSONAL LINES INSURANCE AGENT: No RADIOLOGY DEPARTMENT: Mammography PERIPHERAL IV DATA: Not applicable SIGNED BY: Todd Zuniga Pontaba July 03, 2025 2:01 PM [facility] 06-29-2025 Note HNO ID: [id number] Author: REMINGTON PEREYRA LPN Service: ? Author Type: Licensed Nurse Type: Progress Notes Filed: 06/29/2025 12:18 Note Text: Scan on 06/29/2025 10:37 AM by Jose Carlos Phelps PA-C: Hematology Scan on 06/29/2025 11:13 AM by Jose Carlos Phelps PA-C: Chemistry [facility] 06-07-2025 Note HNO ID: [id number] Author: REMINGTON PEREYRA LPN Service: ? Author Type: Licensed Nurse Type: Progress Notes Filed: 06/07/2025 07:09 Note Text: Scan on 06/06/2025 5:39 PM by Jose Carlos Phelps PA-C: Consultation - General Surgery [facility] 06-06-2025 Progress note [facility] 05-29-2025 Note HNO ID: [id number] Author: NANO RICHARD MA Service: ? Author Type: Licensed Nurse Type: Progress Notes Filed: 05/30/2025 09:38 Note Text: Scan on 05/28/2025 7:26 PM by Jose Carlos Phelps PA-C: Discharge Summary Scan on 05/29/2025 8:13 PM by Jose Carlos Phelps PA-C: Hernia Repair with mesh placement [facility] 05-28-2025 Consult note [facility] 05-28-2025 Consult note Note Date/Time May 28, 2025 4:05pm [facility] Medical Records Department [address] [place] [address] Anesthesia Postop Eval II 05/28/25 1236 MR#: [id number] Acct: [id number] Name: ELISHA GODFREY Rep #:[id number] : 1955 70 From: Mikaela Jade RNA PCP: Dr. Kade Fry MD Status:REG SDC Y Race: C Location: [place] [address] Anesthesia Postop Eval I Sum Postop Eval Completion status Anesthesia document: Postop Eval 1 completed: Yes Anesthesia Postop Eval I Summary Anesthesia Postop Eval I Summary: Anesthesia Postop Eval I: Assessment Summary Airway patent Yes 05/28/25 11:18 DIVER [email or web address].PKEL Spontaneous unlabored Yes 05/28/25 11:18 DIVER [email or web address].PKEL respirations Mental status Awake,Calm 05/28/25 11:18 DIVER PUMPER.PKEL nausea No 05/28/25 11:18 DIVER PUMPER.PKEL Vomiting No 05/28/25 11:18 DIVER PUMPER.PKEL Anesthesia Postop Eval I: Fluid Summary Crystalloid volume administer 2,000 05/28/25 11:18 DIVER PUMPER.PKEL (ml) Colloids volume administered ( ml) Blood Product volume administered (ml) Total IV fluid infused 2,000 05/28/25 11:18 DIVER [email or web address].PKEL Anesthesia Postop Eval I: Summary Notes Anesthesia Complication No 05/28/25 11:18 DIVER PUMPER.PKEL Anesthesia Complication Comment: Post-operative progress note Anesthesia: Postop Eval II Evaluation Mental status: Awake and Calm Pain Level: 1 nausea: No Vomiting: No Complications Anesthesia Complication: No 05/28/25 1236 <Electronically signed by Mikaela Bustamante CRNA> Date _ Mikaela Bustamante CRNA Cosigner Signature: Date CC: ~ Signed [facility] Work Phone: [phone]) 225-400310-06-2025 Consult note Author Eddie Miller [facility] Note Date/Time May 28, 2025 11 :18am [facility] Medical Records Department [address] [place] [address] Anesthesia Postop Eval I 05/28/25 1117 MR#: [id number] Acct: [id number] Name: ELISHA GODFREY Rep #:[id number] : 1955 70 From: Eddie Miller CRNA PCP: Dr. Kade Fry MD Status:REG SDC Y Race: C Location: [place] [address] Anesthesia: Postop Eval I Current Vital Signs [...] 05/28/25 1118 <Electronically signed by Eddie garcía CRNA> Date _ Eddie Miller CRNA Cosigner Signature: Date CC: ~ Signed [facility] Work Phone: [phone] Consult note [facility] Medical Records Department [address] [place] [address] Anesthesia Postop Eval I 05/28/25 1117 MR#: [id number] Acct: [id number] Name: ELISHA GODFREY Rep #:[id number] : 1955 70 From: Eddie Miller CRNA PCP: Dr. Kade Fry MD Status:REG SD Y Race: C Location: [place] [address] Anesthesia: Postop Eval I Current Vital Signs [...] Eval 1 completed: Yes 05/28/25 1118 y DIVER PUMPER> Date _ Eddie Miller DIVER PUMPER Cosigner Signature: Date CC: ~ Signed [facility]10-06-2025 Consult note Author Michael Spear [facility] Note Date/Time May 28, 2025 7: 33am [facility] Medical Records Department [address] [place] [address] Pre-Anesthesia Evaluation 05/28/25 0700 MR#: [id number] Acct: [id number] Name: ELISHA GODFREY Rep #:[id number] : 1955 70 From: Michael Spear MD PCP: Dr. Kade Fry MD Status[place] [place] Race: C Location: [place] [address] ASA Classification* ASA Classification ASA Classification: 3 [...] lab: CBC WBC, (4.4-11.0) 4.6 K/mm3 03/27/25, 12: RBC, (4.2-5.4) 3.97 M/mm3 L 03/27/25, : Hgb, (12.0-15.0) 13.9 g/dL 03/27/25, : Hct, (37-47) 41.4 % 03/27/25, : Plt Count, (150-450) 206 K/mm3 03/27/25, 12: CHEMISTRY Potassium, (3.3-5.1) 3.9 mmol/L 03/27/25, : Sodium, (133-145) 139 mmol/L 03/27/25, 12:44 BUN, (4-19) 19 mg/dL 03/27/25, 12: Creatinine, (0.70-1.20) 0.77 mg/dL 03/27/25, : Glucose, (70-99) 164 mg/dL H 03/27/25, 12:44 TSH, (0.300-4.200) 2.340 uIU/mL 11/27/24, 09:42 COAG Pre-Assessment Diagnosis/Proposed Procedure Planned Operative Procedure(s): LAP ROBOTIC INGUINAL HERNIA LEFT WITH MESH Anesthesia History Anesthesia History - large animal veterinarian: Anesthesia History - large animal veterinarian Hx Hospitalization No 05/14/25 13:02 Any Problems [...] sips of water?: Yes PONV PONV - large animal veterinarian: PONV - large animal veterinarian Female Yes 05/14/25 13:02 HX of Motion [...] 05/28/25 06:24 Respiratory Assessment Respiratory Assessment - large animal veterinarian: Respiratory Tract Infection Hx - large animal veterinarian Hx Respiratory Tract Infection No 05/14/25 13:02 STOP Sleep Apnea STOP Sleep Apnea - large animal veterinarian: STOP Sleep Apnea - large animal veterinarian Hx Hypertension Yes: ON MEDS BP CONTROLLED [...] 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 - large animal veterinarian: Tobacco Use History - large animal veterinarian Tobacco Use Smoking Status Never smoker 05/14/25 13:02 Hx Tobacco Use No 05/14/25 13:02 Years Smoking Packs Smoked per Day Smoking Cessation Date was within the last 15 years Hx Smoking Cessation Date Hx Smoking Cessation Counseling Hematologic Medial History Hematologic Hx - large animal veterinarian: 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 Hx of Blood Transfusion No 05/14/25 13:02 [...] confused, unrespo /Reproduction History /Reproductive History - large animal veterinarian: /Reproductive Hx- large animal veterinarian Hx Now Gestational Age (in weeks): EDC: [...] Unknown Verified 05/14/25 12:54 diphenhydramine (From AdvReac FEEL Verified 05/14/25 12:54 Benadryl) WEIRD Family History Mother Arthritis Brother Arthritis Diabetes [...] MD Cosigner Signature: Date CC: ~ Signed [facility] Work Phone: [phone]) [phone] History and physical note Author Tavon Beauchamp [facility] Note Date/Time May 28, 2025 7: 17am [facility] Medical Records Department [address] [place] [address] History & Physical Exam 05/28/2515 MR#: [id number] Acct: [id number] Name: BEKAHELISHA M Rep #:[id number] : 1955 70 From: Tvaon Oscar PCP: Dr. Kade Fry MD Status:[facility] Location: [place] [address] History and Physical Date of Admission: 05/28/25 Date of Service: 05/03/25 MR#: [id number] Acct: [id number] Name: ELISHA GODFREY Rep #: [id number] : 1955 Provider: Dr. Tavon Beauchamp MD Age/Sex: 70/F Location: [facility] Status: Signed Intake Vital Signs 02/12/2509:26 05/03/2513:36 [...] she does experience right upper quadrant pain at times. Once again she notes this pain comes and goes. She states that sometimes when she bends [...] confirmed. Proceed to OR as planned. 05/28/25 0717 <Electronically signed by Tavon Beauchamp MD> Cosigner Signature (if applicable): CC: Dr. Kade Fry MD; Dr. Tavon Beauchamp MD~ Signed [facility] Work Phone: [phone] NoteHNO ID: [id number] Author: NANO RICHARD MA Service: ? Author Type: Senior Advisory Type: Progress Notes Filed: 05/28/2025 08:39 Note Text: Scan on 05/28/2025 7:32 AM by Provider, External, PA-C: [facility] Consult note [facility] Medical Records Department [address] [place] [address] Pre-Anesthesia Evaluation 05/28/25 0700 MR#: [id number] Acct: [id number] Name: ELISHA GODFREY Rep #:[id number] : 1955 70 From: Michael Spear MD PCP: Dr. Kade Fry MD Status:REG SDC Y Race: C Location: [place] [address] ASA Classification* ASA Classification ASA Classification: 3 [...] 03/27/25, 12:44 Hct, (37-47) 41.4 % 03/27/25, :44 Plt Count, (150-450) 206 K/mm3 03/27/25, 12:44 [...] WITH MESH Anesthesia History Anesthesia History - large animal veterinarian: Anesthesia History - large animal veterinarian Hx Hospitalization No 05/14/25 13:02 Any Problems [...] sips of water?: Yes PONV PONV - large animal veterinarian: PONV - large animal veterinarian Female Yes 05/14/25 13:02 HX of Motion [...] 05/28/25 06:24 Respiratory Assessment Respiratory Assessment - large animal veterinarian: Respiratory Tract Infection Hx - large animal veterinarian Hx Respiratory Tract Infection No 05/14/25 13:02 STOP Sleep Apnea STOP Sleep Apnea - large animal veterinarian: STOP Sleep Apnea - large animal veterinarian Hx Hypertension Yes: ON MEDS BP CONTROLLED [...] 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 - large animal veterinarian: Tobacco Use History - large animal veterinarian Tobacco Use Smoking Status Never smoker 05/14/25 13:02 Hx Tobacco Use No 05/14/25 13:02 Years Smoking Packs Smoked per Day Smoking Cessation Date was within the last 15 years Hx Smoking Cessation Date Hx Smoking Cessation Counseling Hematologic Medial History Hematologic Hx - large animal veterinarian: 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 Hx of Blood Transfusion No 05/14/25 13:02 [...] confused, unrespo /Reproduction History /Reproductive History - large animal veterinarian: /Reproductive Hx- large animal veterinarian Hx Now Gestational Age (in weeks): EDC: [...] Unknown Verified 05/14/25 12:54 diphenhydramine (From AdvReac FEEL Verified 05/14/25 12:54 Benadryl) WEIRD Family History Mother Arthritis Brother Arthritis Diabetes [...] MD Cosigner Signature: Date CC: ~ Signed [facility]10-06-2025 History and physical note [facility] Medical Records Department [address] [place] [address] History & Physical Exam 05/28/25 0715 MR#: [id number] Acct: [id number] Name: ELISHA GODFREY Rep #:[id number] : 1955 70 From: Tavon Oscar PCP: Dr. Kade Fry MD Status:[facility] Location: [place] [address] History and Physical Date of Admission: 05/28/25 Date of Service: 05/03/25 MR#: [id number] Acct: [id number] Name: ELISHA GODFREY Rep #: [id number] : 1955 Provider: Dr. Tavon Beauchamp MD Age/Sex: 70/F Location: [facility] Status: Signed Intake Vital Signs 02/12/2509:26 05/03/2513:36 [...] she does experience right upper quadrant pain at times. Once again she notes this pain comes and goes. She states that sometimes when she bends [...] Fry MD; Dr. Tavon Beauchamp MD~ Signed [facility]10-06-2025 [facility] Medical Records Department [address] [place] [address] History Physical Exam 05/28/25714 MR#: [id number] Acct: [id number] Name: ELISHA GODFREY Rep #: [id number] : 1955 70 From: Tavon Beauchamp MD PCP: Dr. Kade Fry MD Status:[facility] Location: [place] [address] History and Physical Date of Admission: 05/28/25 Date of Service: 05/03/25 MR#: [id number] Acct: [id number] Name: ELISHA GODFREY Rep #: [id number] : 1955 Provider: Dr. Tavon Beauchamp MD Age/Sex: 70/F Location: [facility] Status: Signed Intake Vital Signs 02/12/2509:26 05/03/2513:36 [...] referred from PCP, Dr. Fry and from [facility]. She reports that she has had [...] with 2 separate won (more content not included)...[facility]09-15-2025 NoteHNO ID: [id number] Author: NANO RICHARD MA Service: ? Author Type: Senior Advisory Type: Progress Notes Filed: 05/07/2025 13:00 Note Text: Scan on 05/04/2025 4:35 PM by ProviderJose Carlos PA-C: [facility] History of Present illness Narrative* Nano Richard MA - 05/07/2025 12:59 PM EDT Scan on 05/04/2025 4:35 PM by Jose Carlos Phelps PA-C: MRSA screening * Ree Ng MA - 05/04/2025 12:37 PM EDT Scan on 05/03/2025 8:17 PM by ProviderJose Carlos PA-C: [place] [facility] NoteHNO ID: [id number] Author: ERE NG MA Service: ? Author Type: Senior Advisory Type: Progress Notes Filed: 05/07/2025 13:00 Note Text: Scan on 05/03/2025 8:17 PM by ProviderJose Carlos PA-C: [facility]08-12-2025 NoteHNO ID: [id number] Author: NANO RICHARD MA Service: ? Author Type: Senior Advisory Type: Progress Notes Filed: 04/03/2025 16:31 Note Text: Outside imaging CT Abd/Pelv. Nano Richard MA View External Imaging - Abdomen Pelvis [ID [id number]][facility] 04-03-2025 Radiology Diagnostic study note [facility] Imaging Services [address] [place], [place] [address] Abdomen/Pelvis WITH Contrast MR#: [id number] Acct: [id number] Name: ELISHA GODFREY Rep #: [id number] : 1955 F 69 From: Froylan Javier MD PCP: Dr. Kade Fry MD Status: REG CLI Study:Abdomen/Pelvis WITH Contrast Date of Ex am: 04/02/25 Exam# [id number] Ordering Dr: Stew Christianson THRASHER FEEDER-C PROCEDURE: ABDOMEN/PELVIS WITH CONTRAST 04/02/2025 REASON FOR [...] small bowel loops. Sigmoid diverticulosis. Reading Location: [place] [address] CC: ANY Christianson; Dr. Kade Fry MD ~ Senior Process Control Tech: Signed [facility]08-06-2025 NoteHNO ID: [id number] Author: NANO RICHARD MA Service: ? Author Type: Senior Advisory Type: Progress Notes Filed: 03/28/2025 09:00 Note Text: Outside labs, Non-[facility]F ordered. 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 Author Type: Senior Advisory Type: Progress Notes Filed: 02/21/2025 10:59 Note Text: View External Procedures - Colonoscopy report [ID [id number]] View External Procedures - EGD report [ID [id number]] GI HANDP Scan on 02/12/2025 9:49 AM by ProviderJose Carlos PA-C: H\EANDE\P Gastric Study: View External Imaging - Gastric Emptying Study [ID [id number]][facility] History of Present illness Narrative* Nano Richard MA - 02/12/2025 1:52 PM EDT View External Procedures - Colonoscopy report [ID [id number]] View External Procedures - EGD report [ID [id number]] GI H&P Scan on 02/12/2025 9:49 AM by ProviderJose Carlos PA-C: H\T\P [facility] Consult note [facility] Medical Records Department [address] [place] [address] Anesthesia Postop Eval II 02/12/25 1149 MR#: [id number] Acct: [id number] Name: ELISHA GODFREY Rep #:[id number] : 1955 69 From: Jimmy Oscar PCP: Dr. Kade Fry MD Status[place] [place] Race: C Location: [place] [address] Anesthesia Postop Eval I Sum Postop Eval [...] MD Cosigner Signature: Date CC: ~ Signed [facility]06-23-2025 Consult note Author Jimmy Gillis [facility] Note Date/Time February 12, 2025 9:56 am [facility] Medical Records Department [address] [place] [address] Pre-Anesthesia Evaluation 02/12/25 0953 MR#: [id number] Acct: [id number] Name: ELISHA GODFREY Gray Rep #:[id number] : 1955 69 From: Jimmy Oscar PCP: Dr. Kade Fry MD Status:[facility] Y Race: C Location: [place] [address] ASA Classification* ASA Classification ASA Classification: 2 [...] EGD, COLONOSCOPY Anesthesia History Anesthesia History - large animal veterinarian: Anesthesia History - large animal veterinarian Hx Hospitalization No 02/08/25 11:46 Any Problems [...] take am of surgery PONV PONV - large animal veterinarian: PONV - large animal veterinarian Female Yes 02/08/25 11:46 HX of Motion [...] 02/12/25 09:26 Respiratory Assessment Respiratory Assessment - large animal veterinarian: Respiratory Tract Infection Hx - large animal veterinarian Hx Respiratory Tract Infection No 02/08/25 11:46 STOP Sleep Apnea STOP Sleep Apnea - large animal veterinarian: STOP Sleep Apnea - large animal veterinarian Hx Hypertension Yes: PER PT, CONTROLLED ON [...] 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 - large animal veterinarian: Tobacco Use History - large animal veterinarian Tobacco Use Smoking Status Never smoker 02/08/25 11:46 Hx Tobacco Use No 02/08/25 11:46 Years Smoking Packs Smoked per Day Smoking Cessation Date was within the last 15 years Hx Smoking Cessation Date Hx Smoking Cessation Counseling Hematologic Medial History Hematologic Hx - large animal veterinarian: 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 Hx of Blood Transfusion No 02/08/25 11:46 [...] confused, unrespo /Reproduction History /Reproductive History - large animal veterinarian: /Reproductive Hx- large animal veterinarian Hx Now No 02/08/25 11:46 Gestational Age [...] C) 1,000 mg 1 g PO QDAY 02/11/25 History capsule methotrexate sodium 2.5 mg [...] MD Cosigner Signature: Date CC: ~ Signed [facility] Work Phone: [phone]) [phone] History and physical note Author Darrin Lozoya [facility] Note Date/Time February 12, 2025 9:42 am [facility] Medical Records Department [address] [place] [address] History & Physical Exam 02/12/2541 MR#: [id number] Acct: [id number] Name: ELISHA GODFREY Rep #:[id number] : 1955 69 From: Darrin Lozoya DO PCP: Dr. Kade Fry MD Status:[facility] Location: [place] [address] HPI - General General Date of Admission: [...] it is helpful, but not fully effective. [facility] Medical History Wears glasses Rheumatoid arthritis TIA [...] Kade Fry MD; Darrin Lozoya DO~ Signed [facility] Work Phone: 1([phone]) 371-768306-23-2025 Procedure note [facility] Medical Records Department [address] [place] [address] Colonoscopy Report MR#: [id number] Acct: [id number] Name: ELISHA GODFREY Rep #:[id number] : 1955 69 From: Darrin Lozoya DO PCP: Dr. Kade Fry MD Status:[facility] Patient Name: Elisha Godfrey Procedure Date: 02/12/2025 [...] to therapy. Procedure Code(s): --- Professional --- 03548, Colonoscopy, flexible; diagnostic, including collection of specimen(s) by brushing or washing, when performed (separate procedure) CPT copyright 2021 [employer]. All rights reserved. The codes documented in this report are preliminary and upon veterinary receptionist review may be revised to meet current compliance requirements. Darrin Lozoya DO 02/12/2025 11:10:50 AM This report has been signed electronically. Number of Addenda: 0 Note Initiated On: 02/12/2025 10:21 AM 02/12/25 1111 Date _ Darrin Lozanoignkaty Signature: Date (if indicated) CC: Dr. Kade Fry MD; Darrin Lozoya DO ~ Date Dictated: 02/12/25 102 Date Transcribed: Senior Process Control Tech: ABUNDIO Signed [facility]06-23-2025 Procedure note [facility] Medical Records Department [address] [facility] [place] [address] Operative Report - CC Letter MR#: [id number] Acct: [id number] Name: ELISHA GODFREY Rep #:[id number] : 1955 69 From: Darrin Lozoya DO PCP: Dr. Kade Fry MD Status:[facility] 02/12/2025 Kade Fry MD Re : Colonoscopy [...] ~ Date Dictated: 02/12/25 1021 Date Transcribed: Senior Process Control Tech: RF Signed [facility]06-23-2025 Consult note [facility] Medical Records Department [address] [facility] [place] [address] Anesthesia Postop Eval I 02/12/25 1108 MR#: [id number] Acct: [id number] Name: ELISHA GODFREY Rep #:[id number] : 1955 69 From: Javier Cat PCP: Dr. Kade Fry MD Status:[facility] [place] Race: C Location: [place] [address] Anesthesia: Postop Eval I Current Vital Signs [...] Javier Ruelas Signature: Date CC: ~ Signed [facility]06-23-2025 Procedure note [facility] Medical Records Department [address] [place] [address] EGD Report MR#: [id number] Acct: [id number] Name: ELISHA GODFREY Rep #:[id number] : 1955 69 From: Darrin Lozoya DO PCP: Dr. Kade Fry MD Status[place] Patient Name: Elisha Godfrey Procedure Date: 02/12/2025 [...] pathology results. Procedure Code(s): --- Professional --- 86396, Esophagogastroduodenoscopy, flexible, transoral; with biopsy, single or multiple CPT copyright 2021 [employer]. All rights reserved. The codes documented in this report are preliminary and upon veterinary receptionist review may be revised to meet current compliance requirements. Darrin Lozoya DO 02/12/2025 11:05:56 AM This report has been signed electronically. Number of Addenda: 0 Note Initiated On: 02/12/2025 10:04 AM 02/12/25 1106 Date _ Darrin Lozoya DO Cosigner Signature: Date (if indicated) CC: Dr. Kade Fry MD; Darrin Lozoya DO ~ Date Dictated: 02/12/25 1004 Date Transcribed: Senior Process Control Tech: RF Signed [facility]06-23-2025 Procedure note [facility] Medical Records Department [address] [place] [address] Operative Report - CC Letter MR#: [id number] Acct: [id number] Name: ANTELMO GODFREYIS Gray Rep #:[id number] : 1955 69 From: Darrin Lozoya DO PCP: Dr. Kade Fry MD Status:[facility] 02/12/2025 Kade Fry MD Re : Upper [...] ~ Date Dictated: 02/12/25 1004 Date Transcribed: Senior Process Control Tech: ABUNDIO Signed [facility]06-23-2025 Evaluation note* Diagnosis Onset Date Resolution Status Admit Date GERD (gastroesophageal reflu x disease) acute February 12, 2025 8:46am Personal history of colon polyps, unspecified acute February 12 025 8:46am Abdominal pain chronic February 12, 2025 8:46am Abdominal pain chronic March 09, 2025 8:53am Stenosis colon chronic March 09, 2025 8:53am [facility] Work Phone: 1(296) 668-384806-23-2025 Evaluation note* Diagnosis Onset Date Resolution Status Admit Date GERD (gastroesophageal reflu x disease) acute February 12, 2025 8:46am Personal history of colon polyps, unspecified acute February 12, 2 025 8:46am Abdominal pain chronic February 12, 2025 8:46am Abdominal pain chronic March 09, 2025 8:53am Stenosis colon chronic March 09, 2025 8:53am Spigelian hernia acute March 232024 1:13pm Abdominal pain chronic March 1:13pm Stenosis colon chronic March 1:13pm [facility] Work Phone: 1([phone]) 808-860606-23-2025 Evaluation note* Diagnosis Onset Date Resolution Status Admit Date GERD (gastroesophageal reflu x disease) acute February 12, 2025 8:46am Personal history of colon polyps, unspecified acute February 12 8:46am Abdominal pain chronic February 12, 2025 8:46am Abdominal pain chronic March 09, 2025 8:53am Stenosis colon chronic March 09, 2025 8:53am Spigelian hernia acute March 232024 1:13pm Abdominal pain chronic March 1:13pm [facility] Work Phone: 1(917) 546-179806-23-2025 Evaluation note* Diagnosis Onset Date Resolution Status [...] 2025 1:16pm Spigelian hernia acute 2024 1:16pm [facility] Work Phone: 1(574) 165-358106-23-2025 Consult note [facility] Medical Records Department [address] [place] [address] Pre-Anesthesia Evaluation 02/12/25 0953 MR#: [id number] Acct: [id number] Name: ELISHA GODFREY Rep #:[id number] : 1955 69 From: Jimmy Oscar PCP: Dr. Kade Fry MD Status:REG SDC Y Race: C Location: [place] [address] ASA Classification* ASA Classification ASA Classification: 2 [...] 12/26/24 TSH 2.340 uIU/mL (0.300-4.200) 11/27/24 09:42 04/0 03/16 COAG Pre-Assessment Diagnosis/Proposed Procedure Planned Operative Procedure(s): EGD, COLONOSCOPY Anesthesia History Anesthesia History - large animal veterinarian: Anesthesia History - large animal veterinarian Hx Hospitalization No 02/08/25 11:46 Any Problems [...] take am of surgery PONV PONV - large animal veterinarian: PONV - large animal veterinarian Female Yes 02/08/25 11:46 HX of Motion [...] 02/12/25 09:26 Respiratory Assessment Respiratory Assessment - large animal veterinarian: Respiratory Tract Infection Hx - large animal veterinarian Hx Respiratory Tract Infection No 02/08/25 11:46 STOP Sleep Apnea STOP Sleep Apnea - large animal veterinarian: STOP Sleep Apnea - large animal veterinarian Hx Hypertension Yes: PER PT, CONTROLLED ON [...] 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 - large animal veterinarian: Tobacco Use History - large animal veterinarian Tobacco Use Smoking Status Never smoker 02/08/25 11:46 Hx Tobacco Use No 02/08/25 11:46 Years Smoking Packs Smoked per Day Smoking Cessation Date was within the last 15 years Hx Smoking Cessation Date Hx Smoking Cessation Counseling Hematologic Medial History Hematologic Hx - large animal veterinarian: 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 Specify any problems Hx of Preganancy in last 3 No 02/08/25 11:46 Months Nurse Filling Out Transfusion MGRIJAZMINE 02/08/25 11:46 & Questions: Date: 02/08/25 02/08/25 11:46 Time: 11:48 02/08/25 11:46 Patient unable to answer at this time (ie. confused, unrespo /Reproduction History /Reproductive History - large animal veterinarian: /Reproductive Hx- large animal veterinarian Hx Now No 02/08/25 11:46 Gestational Age [...] MD Cosigner Signature: Date CC: ~ Signed [facility]06-23-2025 History and physical note [facility] Medical Records Department [address] [place] [address] History & Physical Exam 02/12/25 0941 MR#: [id number] Acct: [id number] Name: ELISHA GODFREY Rep #:[id number] : 1955 69 From: Darrin Lozoya DO PCP: Dr. Kade Fry MD Status:[facility] Location: [place] [address] HPI - General General Date of Admission: 02/12/25 Date of Service: 02/12/25 Chief Complaint: GERD and personal history of polyps HPI Narrative ELISHA GODFREY, is a 69 F who presents for an EGD and colonoscopy. *[facility] established 4.7.25 pt reports that she [...] it is helpful, but not fully effective. PFSH Medical History Wears glasses Rheumatoid arthritis [...] Kade Fry MD; Darrin Lozoya DO~ Signed [facility]06-23-2025 [facility] Medical Records Department [address] [place] [address] History Physical Exam 02/12/25 0941 MR#: [id number] Acct: [id number] Name: ELISHA GODFREY Rep #: [id number] : 1955 69 From: Darrin Lozoya DO PCP: Dr. Kade Fry MD Status:[facility] Location: [place] [address] HPI - General General Date of Admission: 02/12/25 Date of Service: 02/12/25 Chief Complaint: GERD and personal history of polyps HPI Narrative ELISHA GODFREY, is a 69 F who presents for an EGD and colonoscopy. *[facility] established 4.7.25 pt reports that she [...] it is helpful, but not fully effective. [facility] Medical History Wears glasses Rheumatoid arthritis TIA [...] healthy appearing General Appeara (more content not included)...[facility] 01-19-2025 Telephone encounter Note* Telephone Encounter - [...] Celia Chanel January 19, 2025 11:[address] [facility]05-30-2025 Miscellaneous Notes* Telephone Encounter - Celia Temple [...] 19, 2025 11:28 AM documented in this encounterSt. [facility]04-29-2025 NoteHNO ID: [id number] Author: REMINGTON PEREYRA LPN Service: ? Author Type: LICENSED NURSE Type: Progress Notes Filed: 12/19/2024 07:14 Note Text: Scan on 12/18/2024 7:57 PM by ProviderJose Carlos PA-C: [facility] History of Present illness Narrative* Remington Pereyra LPN - 12/19/2024 7:14 AM EDT Scan on 12/18/2024 7:57 PM by ProviderJose Carlos PA-C: GI documented in this encounterSt. [facility] Hospital04-16-2025 Telephone encounter Note * Telephone Encounter - Remington Pereyra LPN - 12/06/2024 9:39 AM EDT Patient notified of results and provider's instructions. Patient verbalizes understanding. Pt assisted in transfer to schedule repeat imaging in 6 months. [address] LPN [facility]04-16-2025 Miscellaneous Notes* Telephone Encounter - Remington Pereyra [...] 6 months. Order placed. documented in this encounterSt. [facility] Hospital04-15-2025 Telephone encounter Note * Telephone Encounter - Kade Fry MD - 12/05/2024 9:15 PM EDT Let patient know a small asymmetry )0.5 cm) seen in the right breast on x-ray was not seen on US and suspected to be benign. However recommendation is to repeat imaging in [address] [facility]04-15-2025 History of Present illness Narrative* Enma Venegas [...] PATIENT PRESENTS WITH AN IMPLANTABLE OR ATTACHED PERSONAL LINES INSURANCE AGENT: No RADIOLOGY DEPARTMENT: Ultrasound PERIPHERAL IV DATA: Not applicable SIGNED BY: Enma Venegas RDMS December 05, 2024 4:43 PM documented in this encounterSt. Vincent Hospital04-15-2025 NoteHNO ID: [id number] Author: ENMA VENEGAS RDMS Service: ? Author Type: Size Mixer Type: Progress Notes Filed: 12/05/2024 16:43 Note [...] PATIENT PRESENTS WITH AN IMPLANTABLE OR ATTACHED PERSONAL LINES INSURANCE AGENT: No RADIOLOGY DEPARTMENT: Ultrasound PERIPHERAL IV DATA: Not applicable SIGNED BY: Enma Venegas RDMS December 05, 2024 4:43 [facility]04-15-2025 History of Present illness Narrative* Todd Zuniga, Mammo Tech - 12/05/2024 1:00 PM EDT [...] PATIENT PRESENTS WITH AN IMPLANTABLE OR ATTACHED PERSONAL LINES INSURANCE AGENT: No RADIOLOGY DEPARTMENT: Mammography PERIPHERAL IV DATA: Not applicable SIGNED BY: Jimbo Silva December 05, 2024 1:01 PM documented in this encounterSt. Vincent Hospital04-15-2025 NoteHNO ID: [id number] Author: TODD ZUNIGA Mammo Tech Service: ? Author Type: Size Mixer Type: Progress Notes Filed: 12/05/2024 13:02 Note [...] PATIENT PRESENTS WITH AN IMPLANTABLE OR ATTACHED PERSONAL LINES INSURANCE AGENT: No RADIOLOGY DEPARTMENT: Mammography PERIPHERAL IV DATA: Not applicable SIGNED BY: Jimbo Silva December 05, 2024 1:01 [facility]04-11-2025 NoteHNO ID: [id number] Author: REMINGTON PEREYRA LPN Service: ? Author Type: LICENSED NURSE Type: Progress Notes Filed: 12/01/2024 16:13 Note Text: Scan on 11/30/2024 10:38 AM by Jose Carlos Phelps PA-C: Miscellaneous Lab [facility]04-11-2025 History of Present illness Narrative* Remington Pereyra LPN - 12/01/2024 4:13 PM EDT Scan on 11/30/2024 10:38 AM by Jose Carlos Phelps PA-C: Miscellaneous Lab documented in this encounterSt. [facility] Hospital04-09-2025 NoteHNO ID: [id number] Author: FELICIANO LEAHY MA Service: ? Author Type: Senior Advisory Type: Progress Notes Filed: 11/29/2024 13:46 Note Text: Scan on 11/27/2024 10:35 AM by ProviderJose Carlos PA-C: Chemistry Scan on 11/27/2024 11:41 AM by ProviderJose Carlos PA-C: Chemistry Feliciano Leahy [facility]04-09-2025 History of Present illness Narrative* Feliciano Leahy MA - 11/29/2024 1:46 PM EDT Scan on 11/27/2024 10:35 AM by Jose Carlos Phelps PA-C: Chemistry Scan on 11/27/2024 11:41 AM by Jose Carlos Phelps PA-C: Chemistry Feliciano Leahy MA documented in this encounterSt. [facility] Hospital04-07-2025 NoteHNO ID: [id number] Author: CAROL HARTMAN MA Service: ? Author Type: Senior Advisory Type: Progress Notes Filed: 11/27/2024 18:41 Note Text: PT ASSESSMENT - CASTING ROOM Eilsha presents for Application of brace. Applied Huma and Andersen Modabber wrist brace to Left wrist. Patient tolerated well. Patient has been instructed in Care and proper application of brace. Patient verbalized understanding. Carol Hartman [facility]04-07-2025 History of Present illness Narrative* Carol [...] MD Department of Orthopaedics Orthopaedics [address] [facility] [address] Dept: [phone] Dept November 27, 2024 CHIEF COMPLAINT: Established [...] in 3 years, with MAC at [facility] COLONOSCOPY FLX DX W/COLLJ SPEC WHEN PFRMD 02/22/2006 COLONOSCOPY FLX DX W/COLLJ SPEC WHEN PFRMD 03/23/2016 Colonoscopy, repeat 5 years EGD W/O [facility] SPEC VARICIES INJ 10/29/2021 ESOPHAGOGASTRODUODENOSCOPY TRANSORAL DIAGNOSTIC 12/23/1998 EGD LAPAROSCOPIC APPENDECTOMY 07/12/2007 Early acute LIG/TRNSXJ FLP TUBE ABDL/VAG APPR UNI/BI Tubal ligation PAST SURGICAL HISTORY OF lipoma back, left back PAST SURGICAL HISTORY OF Right 06/02/2016 Dr. Matthew COATS, Right Knee Scope PAST SURGICAL HISTORY OF Left bone spur and cyst removal left thumb SLING OPER STRES INCONTINENCE 09/20/2012 [place] and cystoscopy TONSILLECTOMY HX TONSILLECTOMY PRIMARY/SECONDARY <AGE [...] ALLERGY) 32 mcg/actuation nasal spray Use 1 [place] in each nostril as needed. ramipril (ALTACE) [...] The patient consented to the use of Cuff-Protect software for draft documentation of the visit consistent with [facility] s Notice of Privacy Practices. Manoj Gamino MD documented in this encounterSt. Vincent Hospital04-07-2025 NoteHNO ID: [id number] Author: MANOJ GAMINO MD Service: ? Author Type: Physician Type: Progress Notes Filed: 11/27/2024 18:41 Note Text: Manoj Gamino MD Department of Orthopaedics Orthopaedics [address] [facility] [address] Dept: [phone] Dept November 27, 2024 CHIEF COMPLAINT: Established [...] repeat in 3 years, with MAC at [facility] (more content not included)...[facility]04-07-2025 Evaluation note* Diagnosis Onset Date Resolution Status Admit Date Abdominal pain acute November 27, 2024 8:21am GERD (gastroesophageal reflu x disease) acute November 27, 2024 8:21am Personal history of colon po lyps, unspecified acute November 27, 2024 8:21am [facility] Work Phone: 1(856) [phone] Evaluation note* Diagnosis Onset Date Resolution Status [...] lyps, unspecified acute February 12, 2025 8:46am [facility] Work Phone: 1([phone]) 833-617904-07-2025 Evaluation note* Diagnosis Onset Date Resolution Status [...] Stenosis colon acute March 09, 2025 8:53am [facility] Work Phone: 1(495) 218-343404-03-2025 Instructions* Patient Instructions* Chetan Bhagat - 11/23/2024 10:12 AM EDT Your wounds are healing nicely Continue with band aide during the day for a few more days Once completely dry, can go without band aide Ok to air-out the toe at night documented in this encounterSt. Vincent Hospital04-03-2025 NoteHNO ID: [id number] Author: CHETAN BHAGAT, ? Service: ? Author [...] (H) 4.3 - 5.6 % Final Comment: [place] [employer] guidelines indicate that patients with [...] 09/19/2021 Inflammatory arthritis 09/21/2022 Seeing Rheum- Dr. eFrrer Internal hemorrhoids without mention of complication Lumbago [...] ALLERGY) 32 mcg/actuation nasal spray Use 1 [place] in each nostril as needed. ramipril (ALTACE) [...] repeat in 3 years, with MAC at [facility] COLONOSCOPY FLX DX W/COLLJ SPEC WHEN [...] Scope PAST SURGICAL HIS (more content not included)...[facility] 11-23-2024 History of Present illness Narrative* Chetan [...] (H) 4.3 - 5.6 % Final Comment: [place] [employer] guidelines indicate that patients with [...] ALLERGY) 32 mcg/actuation nasal spray Use 1 [place] in each nostril as needed. ramipril (ALTACE) [...] repeat in 3 years, with MAC at [facility] COLONOSCOPY FLX DX W/COLLJ SPEC WHEN PFRMD 02/22/2006 COLONOSCOPY FLX DX W/COLLJ SPEC WHEN PFRMD 03/23/2016 Colonoscopy, repeat 5 years EGD W/O [facility] SPEC VARICIES INJ 10/29/2021 ESOPHAGOGASTRODUODENOSCOPY TRANSORAL DIAGNOSTIC 12/23/1998 EGD LAPAROSCOPIC APPENDECTOMY 07/12/2007 Early acute LIG/TRNSXJ FLP TUBE ABDL/VAG APPR UNI/BI Tubal ligation PAST SURGICAL HISTORY OF lipoma back, left back PAST SURGICAL HISTORY OF Right 06/02/2016 Dr. Matthew COATS, Right Knee Scope PAST SURGICAL HISTORY OF Left bone spur and cyst removal left thumb SLING OPER STRES INCONTINENCE 09/20/2012 [place] and cystoscopy TONSILLECTOMY HX TONSILLECTOMY PRIMARY/SECONDARY <AGE [...] shoes and the dressings. documented in this encounterSt. Vincent Hospital04-03-2025 NoteHNO ID: [id number] Author: CAROL HARTMAN MA Service: ? Author Type: Senior Advisory Type: Progress Notes Filed: 11/23/2024 10:15 Note [...] pain is from her shoes and the dressings.[facility]03-26-2025 NoteHNO ID: [id number] Author: FELICIANO LEAHY MA Service: ? Author Type: Senior Advisory Type: Progress Notes Filed: 11/15/2024 16:12 Note Text: Scan on 11/14/2024 1:49 PM by Provider, External, PA-C: Neurology Feliciano Leahy [facility]03-26-2025 History of Present illness Narrative* Feliciano Leahy MA - 11/15/2024 4:06 PM EDT Scan on 11/14/2024 1:49 PM by Provider, Jose Carlos, PA-C: Neurology Feliciano Leahy MA documented in this encounterSt. Vincent Hospital03-26-2025 Telephone encounter Note * Telephone Encounter - Maci Borja - 11/15/2024 3:24 PM EDT Spoke with patient and transferred to the [facility] for scheduling. Maci Borja [facility]03-26-2025 Miscellaneous Notes* Telephone Encounter - Maci Borja - 11/15/2024 3:24 PM EDT Spoke with patient and transferred to the [facility] [place] for scheduling. Maci Borja * Telephone Encounter - Feilciano Leahy MA - 11/14/2024 10:31 AM EDT Patient notified and voiced understanding. Patient was unable to be transfer at another appointment. Please contact patient to schedule. Feliciano Leahy MA * Telephone Encounter - Kade Fry MD - 11/13/2024 3:46 PM EDT Let patient know her mammogram showed an asymmetry in the right breast that needs additional imaging. Orders placed. documented in this encounterSt. Vincent Hospital03-25-2025 Procedure note [facility] Pulmonary Services/Neurology [address] [place] [address] MR#: [id number] Acct: [id number] Name: ELISHA GODFREY Rep #:[id number] : 1955 69 From: Chas Bello MD Referring Dr: Manoj Gamino MD Sta tus: REG CLI Location: PSN Date: 11/14/24 Sex: [...] Multi Select Codes Neurology Neurology Interp Codes: 62386-15 Musc test done w/n test comp (interp) (1) and 41385-81 Nrv cndj test 7-8 studies (interp) 11/14/24 1346 MD> Date _ Chas Bello MD CC: Dr. Chas Bello MD; Dr. Manoj Gamino MD; Dr. Kade Fry MD ~ Date Dictated: 11/14/24 1131 Date Transcribed: 11/14/24 1131 Senior Process Control Tech: Signed [facility]03-25-2025 Telephone encounter Note* Telephone Encounter - Feliciano Leahy MA - 11/14/2024 10:31 AM EDT Patient notified and voiced understanding. Patient was unable to be transfer at another appointment. Please contact patient to schedule. Feliciano Leahy MA [facility]03-24-2025 Telephone encounter Note* Telephone Encounter - Kade Fry MD - 11/13/2024 3:46 PM EDT Let patient know her mammogram showed an asymmetry in the right breast that needs additional imaging. Orders placed. [facility]03-24-2025 History of Present illness Narrative* Todd Zuniga [...] PATIENT PRESENTS WITH AN IMPLANTABLE OR ATTACHED PERSONAL LINES INSURANCE AGENT: No RADIOLOGY DEPARTMENT: Mammography PERIPHERAL IV DATA: Not applicable SIGNED BY: Aylin Silvao Shea November 13, 2024 11:00 AM documented in this encounterSt. Vincent Hospital03-24-2025 NoteHNO ID: [id number] Author: TODD ZUNIGA Mammo Tech Service: ? Author Type: Size Mixer Type: Progress Notes Filed: 11/13/2024 11:00 Note [...] PATIENT PRESENTS WITH AN IMPLANTABLE OR ATTACHED PERSONAL LINES INSURANCE AGENT: No RADIOLOGY DEPARTMENT: Mammography PERIPHERAL IV DATA: Not applicable SIGNED BY: Jimbo Silva November 13, 2024 11:00 [facility]03-11-2025 NoteHNO ID: [id number] Author: MAUREEN DE LA TORRE LPN Service: [...] has been communicated to the patient or surrogate.[facility]03-11-2025 History of Present illness Narrative* Maureen De [...] follow up:nail thickening of b/l hallux and ibse7tv toe Patient presents to clinic for follow-up b/l hallux and left 2nd toenail thickening These cause her pain and at times, has developed infection She has no infection currently She is here today requesting nail removal PAIN EVALUATION No data found in the last 1 encounters. Hemoglobin A1C Date Value Ref Range Status 09/14/2024 5.7 (H) 4.3 - 5.6 % Final Comment: [place] [employer] guidelines indicate that patients with [...] ALLERGY) 32 mcg/actuation nasal spray Use 1 [place] in each nostril as needed. ramipril (ALTACE) [...] repeat in 3 years, with MAC at [facility] COLONOSCOPY FLX DX W/COLLJ SPEC WHEN PFRMD 02/22/2006 COLONOSCOPY FLX DX W/COLLJ SPEC WHEN PFRMD 03/23/2016 Colonoscopy, repeat 5 years EGD W/O [facility] SPEC VARICIES INJ 10/29/2021 ESOPHAGOGASTRODUODENOSCOPY TRANSORAL DIAGNOSTIC 12/23/1998 EGD LAPAROSCOPIC APPENDECTOMY 07/12/2007 Early acute LIG/TRNSXJ FLP TUBE ABDL/VAG APPR UNI/BI Tubal ligation PAST SURGICAL HISTORY OF lipoma back, left back PAST SURGICAL HISTORY OF Right 06/02/2016 Dr. Matthew COATS, Right Knee Scope PAST SURGICAL HISTORY OF Left bone spur and cyst removal left thumb SLING OPER STRES INCONTINENCE 09/20/2012 [place] and cystoscopy TONSILLECTOMY HX TONSILLECTOMY PRIMARY/SECONDARY <AGE [...] depressed or anxious. Vascular: Non-Invasive Vascular Laboratory [facility] Lower Extremity Arterial Physiology Study Bilateral/Complete Date [...] Normal at rest. Technologist: Sarah Ferrera RVT, [facility] [place] Ordering physician: CHETAN BHAGAT Interpreting physician: MOOSE [...] De La Torre LPN documented in this encounterSt. Vincent Hospital03-11-2025 NoteHNO ID: [id number] Author: CHETAN BHAGAT, ? Service: ? Author [...] (H) 4.3 - 5.6 % Final Comment: [place] [employer] guidelines indicate that patients with [...] ALLERGY) 32 mcg/actuation nasal spray Use 1 [place] in each nostril as needed. ramipril (ALTACE) [...] repeat in 3 years, with MAC at [facility] COLONOSCOPY FLX DX W/COLLJ SPEC WHEN [...] left thumb SLING O (more content not included)...[facility]03-11-2025 Instructions* Patient Instructions* Sayra Clifford, FÉLIX - 10/31/2024 11:02 AM EDT Post-Op Nail [...] as well if you have any questions/concerns [phone], ask for Podiatry Nurse documented in this encounterSt. Vincent Hospital03-11-2025 NoteHNO ID: [id number] Author: MAUREEN DE LA TORRE LPN Service: ? Author Type: LICENSED NURSE Type: Progress Notes Filed: 10/31/2024 12:51 Note Text: AMB ROOMING INTAKE FLOWSHEET DATA Patient presents with: Left Foot - Established Patient, Procedure: Great toe and 2nd toe Right Foot - Established Patient, Procedure: Great toe [facility] Telephone encounter Note* Telephone Encounter - Maureen De La Torre LPN - 10/18/2024 8:44 AM EST Patient notified of results and provider's instructions. Patient verbalizes understanding. Maureen De La Torre LPN [facility] Work Phone: 1(600) [phone] Miscellaneous Notes* Telephone Encounter - Maureen De La Torre LPN - 10/18/2024 8:44 AM EST Patient notified of results and provider's instructions. Patient verbalizes understanding. Maureen De La Torre LPN documented in this encounterSt. Vincent Hospital02-24-2025 NoteHNO ID: [id number] Author: CHETAN BHAGAT, ? Service: ? Author [...] 09/09/2018 5.6 08/17/2017 6.1 08/20/2016 6.2 HBA1C, [place] (%) Date Value 03/07/2011 5.5 Hemoglobin A1C [...] ALLERGY) 32 mcg/actuation nasal spray Use 1 [place] in each nostril as needed. ramipril (ALTACE) [...] repeat in 3 years, with MAC at [facility] COLONOSCOPY FLX DX W/COLLJ SPEC WHEN PFRMD 02/22/2006 COLONOSCOPY FLX DX W/COLLJ SPEC WHEN PFRMD 03/23/2016 Colonoscopy, repeat 5 years EGD W/O [facility] SPEC VARICIES INJ 10/29/2021 ESOPHAGOGASTRODUODENOSCOPY TRANSORAL DIAGNOSTIC 12/23/1998 EGD LAPAROSCOPIC APPENDECTOMY 07/12/2007 Early acute LIG/TRNSXJ FLP TUBE ABDL/VAG APPR UN (more content not included)...[facility]02-24-2025 History of Present illness Narrative* Chetan Bhagat [...] 09/09/2018 5.6 08/17/2017 6.1 08/20/2016 6.2 HBA1C, [place] (%) Date Value 03/07/2011 5.5 Hemoglobin A1C [...] ALLERGY) 32 mcg/actuation nasal spray Use 1 [place] in each nostril as needed. ramipril (ALTACE) [...] repeat in 3 years, with MAC at [facility] COLONOSCOPY FLX DX W/COLLJ SPEC WHEN PFRMD 02/22/2006 COLONOSCOPY FLX DX W/COLLJ SPEC WHEN PFD 03/23/2016 Colonoscopy, repeat 5 years EGD W/O [facility] SPEC VARICIES INJ 10/29/2021 ESOPHAGOGASTRODUODENOSCOPY TRANSORAL DIAGNOSTIC 12/23/1998 EGD LAPAROSCOPIC APPENDECTOMY 07/12/2007 Early acute LIG/TRNSXJ FLP TUBE ABDL/VAG APPR UNI/BI Tubal ligation PAST SURGICAL HISTORY OF lipoma back, left back PAST SURGICAL HISTORY OF Right 06/02/2016 Dr. Matthew COATS, Right Knee Scope PAST SURGICAL HISTORY OF Left bone spur and cyst removal left thumb SLING OPER STRES INCONTINENCE 09/20/2012 [place] and cystoscopy TONSILLECTOMY HX TONSILLECTOMY PRIMARY/SECONDARY <AGE [...] pvr Chetan Bhagat DPM Podiatry [address] [facility] [address] Dept: [phone] Dept * Sayra Clifford RN - 10/16/2024 [...] which is also uncomfortable. documented in this encounterSt. Vincent Hospital02-24-2025 NoteHNO ID: [id number] Author: SAYRA CLIFFORD RN Service: ? Author [...] so they are long which is also uncomfortable.[facility] 10-16-2024 NoteHNO ID: [id number] Author: MANOJ GAMINO MD Service: ? Author Type: Physician Type: Progress Notes Filed: 10/16/2024 12:26 Note Text: Manoj Gamino MD Department of Orthopaedics Orthopaedics [address] [facility] [address] Dept: [phone] Dept October 16, 2024 CHIEF COMPLAINT: New and Numbness of the Left Hand and Trigger Finger of the Left Thumb (Referred by Dr. Fry) HPI Patient here for evaluation left hand numbness and tingling. Her left thumb has also been locking. Patient states she has had the numbness and tingling for about 3 months. 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 IMAGING: IMPRESSION: No acute osseous abnormality Senior Process Control Tech: PSCB Transcribe Date/Time: Aug 24 2023 10:23A [...] these instructions. Informed Consent Consent Obtained: Verbal [place]ena Protocol A moment to CARE was completed. [...] Elevated blood sugar 09/21 (more content not included)...[facility]02-24-[facility]25 History of Present illness Narrative* Manoj Gamino MD - 10/16/2024 9:03 AM ESTAssociated Order(s): Additional Injections: L thumb A1 Post-Procedure Diagnose(s): Trigger finger of left thumb Manoj Gamino MD Department of Orthopaedics Orthopaedics [address] [facility] [address] Dept: [phone] Dept October 16, 2024 CHIEF COMPLAINT: New and Numbness of the Left Hand and Trigger Finger of the Left Thumb (Referred by Dr. Fry) HPI Patient here for evaluation left hand numbness and tingling. Her left thumb has also been locking. Patient states she has had the numbness and tingling for about 3 months. 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 IMAGING: IMPRESSION: No acute osseous abnormality Senior Process Control Tech: PATO Transcribe Date/Time: Aug 24 2023 10:23A [...] these instructions. Informed Consent Consent Obtained: Verbal [place]ena Protocol A moment to CARE was completed. [...] repeat in 3 years, with MAC at [facility] COLONOSCOPY FLX DX W/COLLJ SPEC WHEN [...] left thumb SLING OPER STRES INCONTINENCE 09/20/2012 [place] and cystoscopy TONSILLECTOMY HX TONSILLECTOMY PRIMARY/SECONDARY <AGE [...] ALLERGY) 32 mcg/actuation nasal spray Use 1 [place] in each nostril as needed. ramipril (ALTACE) [...] anxiety) Manoj Gamino MD documented in this encounterSt. [facility]25 NoteHNO ID: [id number] Author: REMINGTON PEREYRA LPN Service: ? Author Type: LICENSED NURSE Type: Progress Notes Filed: 10/03/2024 12:07 Note Text: Scan on 10/03/2024 11:20 AM by ProviderJose Carlos PA-C: Chemistry Scan on 10/03/2024 10:46 AM by ProviderJose Carlos PA-C: [facility] History of Present illness Narrative* Remington Pereyra LPN - 10/03/2024 12:06 PM EST Scan on 10/03/2024 11:20 AM by ProviderJose Carlos PA-C: Chemistry Scan on 10/03/2024 10:46 AM by Jose Carlos Phelps PA-C: Hematology documented in this encounterSt. [facility]02-[facility] Telephone encounter Note * Telephone Encounter - [...] Naik RN September 25, 2024 9:[address] [facility]02-03-[facility] Miscellaneous Notes* Telephone Encounter - Sayra Naik [...] 25, 2024 9:24 AM documented in this encounterSt. [facility]01-30-2025 Instructions* Patient Instructions* Kade Fry MD - [...] review all the medicines you take, even arcy-drm-xmocsze medicines. As you get older, the way [...] have certain medical conditions. documented in this encounterSt. [facility] Hospital01-30-2025 History of Present illness Narrative* Kade Fry [...] PCP - General (Family Medicine) Addie Birmingham APRN.ACT ENGLISH TUTOR as Protection Consultant (Family Medicine) Ena Aguiar PA-C as Protection Consultant (Family Medicine) Dr. Crockett: Rheum Medical/Family history [...] repeat in 3 years, with MAC at [facility] COLONOSCOPY FLX DX W/COLLJ SPEC WHEN PFRMD 02/22/2006 COLONOSCOPY FLX DX W/COLLJ SPEC WHEN PFRMD 03/23/2016 Colonoscopy, repeat 5 years EGD W/O [facility] SPEC VARICIES INJ 10/29/2021 ESOPHAGOGASTRODUODENOSCOPY TRANSORAL DIAGNOSTIC 12/23/1998 EGD LAPAROSCOPIC APPENDECTOMY 07/12/2007 Early acute LIG/TRNSXJ FLP TUBE ABDL/VAG APPR UNI/BI Tubal ligation PAST SURGICAL HISTORY OF lipoma back, left back PAST SURGICAL HISTORY OF Right 06/02/2016 Dr. Matthew COATS, Right Knee Scope SLING OPER STRES INCONTINENCE 09/20/2012 [place] and cystoscopy TONSILLECTOMY HX TONSILLECTOMY PRIMARY/SECONDARY <AGE [...] ALLERGY) 32 mcg/actuation nasal spray Use 1 [place] in each nostril once daily.(Patient taking differently: Use 1 [place] in each nostril as needed.) fexofenadine hcl(CARMELITA [...] Lymph 1.00 - 4.00 k/uL 1.20 1.12 Russell% % 6.6 6.1 Abs Russell <0.87 k/uL 0.24 0.25 Eosin% % 3.6 [...] Negative Negative Ketones, Urine Negative Negative Specific [place], Ur 1.005 - 1.030 1.011 Hemoglobin/Blood,Ur Negative [...] which included preparing to see the patient, [id number] patient care, completing clinical documentation, performing a medically appropriate examination, counseling and educating the patient/family/caregiver and ordering medications, tests, or procedures. Kade Fry MD documented in this encounterSt. [facility]01-30-2025 NoteHNO ID: [id number] Author: KADE FRY MD Service: ? Author [...] General (Family Medicine) Addie Birmingham APRN.ROSHAN as Protection Consultant (Family Medicine) Ena Aguiar PA-C as Protection Consultant (Family Medicine) Dr. Crockett: Rheum Medical/Family history [...] repeat in 3 years, with MAC at [facility] COLONOSCOPY FLX DX W/COLLJ SPEC WHEN PFRMD 02/22/2006 COLONOSCOPY FLX DX W/COLLJ SPEC WHEN PFRMD 03/23/2016 Colonoscopy, repeat 5 years EGD W/O [facility] SPEC VARICIES INJ 10/29/2021 ESOPHAGOGASTRODUODENOSCOPY TRANSORAL DIAGNOSTIC 12/23/1998 EGD LAPAROSCOPIC APPENDECTOMY 07/12/2007 Early acute LIG/TRNSXJ FLP TUBE ABDL/VAG APPR UNI/BI Tubal ligation PAST SURGICAL HISTORY OF lipoma back, left back PAST SURGICAL HISTORY OF Right 06/02/2016 Dr. Matthew COATS, Right Knee Scope SLING OPER STRES INCONTINENCE 09/20/2012 [place] and cystoscopy TONSILLECTOMY HX TONSILLECTOMY PRIMARY/SECONDARY Tonsillectomy VAG HYST 250 GM/< W/RMVL TUBEAND/OVARY 09/20/2012 TVH/BSO, for prolapse w/ Santos's VAGINAL HYSTERECTOMY Family History FAMILY HISTORY Problem Relation Age of Onset (more content not included)...[facility]12-[facility] Telephone encounter Note* Telephone Encounter - Kade Fry MD - 08/11/2024 10:32 AM EST The following approved medication requests have been transmitted electronically. Requested Prescriptions Signed Prescriptions Disp Refills ramipril (ALTACE) 5 mg capsule 14 capsule 0 Sig: Take 1 capsule by mouth once daily. Authorizing Provider: KADE FRY MD Labs placed [facility]-20-[facility] Miscellaneous Notes* Telephone Encounter - Kade Fry [...] drawn prior. Orders pended. documented in this encounterSt. [facility] Hospital12-20-2024 Telephone encounter Note * Telephone Encounter - [...] to get labs drawn prior. Orders pended. [facility]09-30-[facility] History of Present illness Narrative* Remington Pereyra LPN - 05/22/2024 6:49 AM EDT Scan on 05/19/2024 1:16 PM by Jose Carlos Phelps PA-C: Hematology documented in this encounterSt. [facility] Hospital08-26-2024 History of Present illness Narrative* Feliciano Leahy MA - 04/17/2024 4:10 PM EDT Scan on 04/17/2024 10:47 AM by Jose Carlos Phelps PA-C: Hematology Scan on 04/17/2024 11:42 AM by Jose Carlos Phelps PA-C: Chemistry Feliciano Leahy MA' documented in this encounterSt. [facility] Hospital06-21-2024 History of Present illness Narrative* Mesha Urias - 02/11/2024 9:04 AM EDT Elisha Godfrey is identified through a medication adherence outreach initiative based on pharmacy claims data from [facility] (insurer) for ROLLY medication(s). Patient is reviewed 06/21/24 due to medication adherence concerns with the [...] reconcile dispense Mesha Urias documented in this encounterSt. Vincent Hospital05-31-2024 History of Present illness Narrative* Sangita Jay LPN - 01/21/2024 12:47 PM EDT Scan on 01/21/2024 11:11 AM by ProviderJose Carlos PA-C: Chemistry Scan on 01/21/2024 10:36 AM by ProviderJose Carlos, PASandraC: Chemistry Sangita Jay LPN documented in this encounterSt. [facility] Hospital05-28-2024 Telephone encounter Note * Telephone Encounter - [...] care: Please advise. Thank you. Sandra Ramirez. [facility]-28-[facility] Miscellaneous Notes* Telephone Encounter - Sandra Gleason [...] Thank you. Sandra Ramirez. documented in this encounterSt. [facility] Hospital04-22-2024 Telephone encounter Note * Telephone Encounter - Sangita Jay LPN - 12/13/2023 1:27 PM EDT Pt notified of message, pt states she is not sure which route to take, states she will think about it & call back with her choice. Sangita Jay LPN [facility]-22-[facility]24 Miscellaneous Notes* Telephone Encounter - Sangita Jay [...] to please advise patient. documented in this encounterSt. Vincent Hospital04-22-2024 Telephone encounter Note * Telephone Encounter - Kade Fry MD - 12/13/2023 12:37 PM EDT Let patient know we can try a different once a week medication or I can refer her to Endocrinology to discuss injection options. [facility] Telephone encounter Note* Telephone Encounter - Gray [...] medication. Asking pcp to please advise patient. [facility]-22-2024 Miscellaneous Notes* Telephone Encounter - Ree Ng MA - 11/12/2023 2:36 PM EDT Letter mailed to pt home of results. Ree Ng MA * Telephone Encounter - Ree Ng MA - 11/12/2023 2:29 PM EDT ----- Message from Ena Aguiar PA-C sent at 11/12/2023 12:27 PM EDT ----- Normal mammogram. Repeat in 1 year. documented in this encounterSt. Vincent Hospital03-22-2024 Miscellaneous Notes* Letter - Coordinator, Mammography - 11/12/2023 12:11 PM EDT November 12, 2023 PID: [id number] Elisha Godfrey [address] [place] [address] Dear Ms. Godfrey, We are pleased to [...] report will be [facility] file at [facility] as part of your permanent medical record and are available for your continuing care. Thank you for allowing us to help in meeting your health care needs. Sincerely, Dr. Jeronimo Interpreting Radiologist [facility] (Normal over 40) documented in this encounterSt. Vincent Hospital03-22-2024 History of Present illness Narrative* Rosa Akbar [...] PATIENT PRESENTS WITH AN IMPLANTABLE OR ATTACHED PERSONAL LINES INSURANCE AGENT: No RADIOLOGY DEPARTMENT: Mammography PERIPHERAL IV DATA: Not applicable SIGNED BY: Aylin Marmolejoo Shea November 12, 2023 7:14 AM documented in this encounterSt. Vincent Hospital02-14-2024 Miscellaneous Notes* Telephone Encounter - Ena Augiar PA-C - 10/06/2023 2:34 PM EST New orders placed. * Telephone Encounter - Pamela Tate RN - 10/06/2023 2:13 PM EST Sabine calling from [facility] regarding pt's order. [...] placed. Pamela Tate RN documented in this encounterSt. Vincent Hospital01-02-2024 History of Present illness Narrative* Sangeetha Chang, RT(R) - 08/24/2023 10:00 AM EST Radiology [...] 24, 2023 10:05 AM documented in this encounterSt. Vincent Hospital12-05-2023 History of Present illness Narrative* Remington Pereyra LPN - 07/27/2023 8:39 AM EST Scan on 07/23/2023 12:38 PM by Provider, EDIS Branch: Hematology Scan on 07/23/2023 1:38 PM by Provider, Jose Carlos, EDDIEC: Chemistry documented in this encounterSt. Vincent Hospital11-29-2023 Miscellaneous Notes* Telephone Encounter - Kade Fry [...] patient. Rosamaria Moody Pss documented in this encounterSt. Vincent Hospital09-15-2023 History of Present illness Narrative* Remington Pereyra LPN - 05/07/2023 1:30 PM EDT Scan on 05/07/2023 1:21 PM by Provider, EDDIE BranchC: Chemistry Scan on 05/07/2023 12:39 PM by Provider, Jose Carlos, EDDIEC: Hematology documented in this encounterSt. Vincent Hospital06-06-2023 History of Present illness Narrative* Addie Chanel - 01/26/2023 12:28 PM EDT POPULATION HEALTH [...] 26, 2023 12:28 PM documented in this encounterSt. Vincent Hospital04-06-2023 History of Present illness Narrative* Feliciano Leahy MA - 11/26/2022 11:34 AM EDT Scan on 11/20/2022 12:37 PM by External Provider: Hematology Feliciano Leahy MA documented in this encounterSt. Vincent Hospital03-20-2023 Miscellaneous Notes* Telephone Encounter - Kacey Lou Cma - 11/09/2022 3:59 PM EDT Patient notified and verbalized understanding Kacey Lou Cma * Telephone Encounter - Addie Birmingham APRN.CNP - 11/09/2022 3:46 PM EDT Please let patient know her mammogram is normal. She should continue yearly screenings. documented in this encounterSt. Vincent Hospital03-20-2023 Miscellaneous Notes* Letter - Mammography Coordinator - 11/09/2022 1:49 PM EDT November 10, 2022 PID: [id number] Elisha Godfrey [address] [place] [address] Dear Ms. Godfrey, We are pleased to [...] report will be [facility] as part of your permanent medical record and are available for your continuing care. Thank you for allowing us to help in meeting your health care needs. Sincerely, Dr. Hoyt Interpreting Radiologist [facility] (Normal over 40) documented in this encounterSt. Vincent Hospital03-17-2023 History of Present illness Narrative* Shwetha Gregg [...] 06, 2022 1:44 PM documented in this encounterSt. Vincent Hospital01-30-2023 Instructions* Patient Instructions* Ena Aguiar PA-C - 09/21/2022 9:44 AM EST Aquaphor for dry skin. Can mix this with the steroid ointment as needed for increased treatment benefit. documented in this encounterSt. Vincent Hospital01-30-2023 History of Present illness Narrative* Ena Aguiar [...] repeat in 3 years, with MAC at [facility] COLONOSCOPY FLX DX W/COLLJ SPEC WHEN PFRMD 02/22/2006 COLONOSCOPY FLX DX W/COLLJ SPEC WHEN PFRMD 03/23/2016 Colonoscopy, repeat 5 years EGD W/O [facility] SPEC VARICIES INJ 10/29/2021 ESOPHAGOGASTRODUODENOSCOPY TRANSORAL DIAGNOSTIC 12/23/1998 EGD LAPAROSCOPIC APPENDECTOMY 07/12/2007 Early acute LIG/TRNSXJ FLP TUBE ABDL/VAG APPR UNI/BI Tubal ligation PAST SURGICAL HISTORY OF lipoma back, left back PAST SURGICAL HISTORY OF Right 06/02/2016 Dr. Matthew COATS, Right Knee Scope SLING OPER STRES INCONTINENCE 09/20/2012 [place] and cystoscopy TONSILLECTOMY HX TONSILLECTOMY PRIMARY/SECONDARY <AGE [...] repeat in 3 years, with MAC at [facility] COLONOSCOPY FLX DX W/COLLJ SPEC WHEN [...] Knee Scope SLING OPER STRES INCONTINENCE 09/20/2012 [place] and cystoscopy TONSILLECTOMY HX TONSILLECTOMY PRIMARY/SECONDARY <AGE [...] ALLERGY) 32 mcg/actuation nasal spray Use 1 [place] in each nostril once daily.(Patient taking differently: Use 1 [place] in each nostril as needed.) fexofenadine hcl(CARMELITA [...] No history of dysuria, frequency or incontinence HOT DOG VENDOR: Negative for abnormal vaginal bleeding, abnormal vaginal [...] Abs Lymph 1.00 - 4.00 k/uL 1.11 Russell% % 7.6 Abs Russell <0.87 k/uL 0.32 Eosin% % 3.3 Abs [...] Negative Ketones, Urine Trace, Negative Negative Specific [place], Ur 1.005 - 1.030 1.008 Hemoglobin/Blood,Ur Negative, [...] prn. Ena Aguiar PA-C documented in this encounterSt. Vincent Hospital01-18-2023 Miscellaneous Notes* Telephone Encounter - Feliciano Leahy [...] callonce they are placed. documented in this encounterSt. Vincent Hospital12-14-2022 Miscellaneous Notes* Telephone Encounter - Kade Fry [...] you. Pamela Tate RN documented in this encounterSt. Vincent Hospital10-27-2022 Instructions* Patient Instructions* Chapis Lepe APRN.ACT ENGLISH TUTOR - 06/18/2022 10:21 AM EDT Avoiding Tick [...] Problems with short-term memory documented in this encounterSt. Vincent Hospital10-27-2022 History of Present illness Narrative* Chapis Lepe APRN.ACT ENGLISH TUTOR - 06/18/2022 10:20 AM EDT Images from [...] have confirmed and edited as necessary, the [facility] Review of Systems Constitutional: Negative for [...] indetail warranting prompt ER evaluation. Chapis Lepe APRN.ROSHAN documented in this encounterSt. Vincent Hospital05-02-2022 History of Present illness Narrative* Feliciano Leahy MA - 12/22/2021 4:24 PM EDT Please see external labs. Feliciano Leahy MA Scan on 12/22/2021 2:23 PM by External Provider: Hematology documented in this encounterSt. Vincent Hospital03-23-2022 Instructions* Patient Instructions* Sayra Del Toro PA-C - 11/12/2021 10:46 AM EDT -Recommend repeat colonoscopy in 1-2 years with Monitored Anesthetic Care -Recommend daily fiber supplement and plenty of fluids -Call immediately if any changes in bowel habits or new concerns The following instructions are important for you related to your office visit today with the [facility] General Surgeons. INSTRUCTIONS FOR PEPTIC ULCER [...] you should contact our office immediately @ [phone] and ask to be transferred to the General Surgery department. documented in this encounterSt. Vincent Hospital03-23-2022 History of Present illness Narrative* Sayra Del Toro PA-C - 11/12/2021 10:10 AM EDT FOLLOW UP VISIT - ENDOSCOPY NAME: Elisha Godfrey [facility] NO.: [id number] DATE OF SERVICE: 11/12/2021 : 1955 REFERRING [...] one cassette issue. Gross examination performed at [facility], [address] [place] [address] FFS 10/29/2021 10:08 PM Performing Lab Diagnostic interpretation performed at [facility], [facility] [address] CLIA# [id number] Treasurer: Remy Yuan M.D. Addendum Given the background [...] (89 F), height 154.9 cm (5' 1), .4 kg (186 lb), SpO2 96 %. General: [...] in 1-2 years to be done at [facility] under Monitored Anesthetic Care. Patient agreeable [...] which included preparing to see the patient, [id number]-[id number] patient care, completing clinical documentation, obtaining and/or reviewing separately obtained history, counseling and educating the patient/family/caregiver, communicating with other HCPs (not separately reported), independently interpreting results (not separately reported) and communicating results to the patient/family/caregiver. Sayra Del Toro PA-C documented in this encounterHeather Ville [address]-03-2022 History of Past illness Narrative* Problem Noted [...] of this encounter (statuses as of 10/06/2023) [facility] of Past illness Narrative* Problem Noted [...] of this encounter (statuses as of 11/12/2023) [facility] of Past illness Narrative* Problem Noted [...] of this encounter (statuses as of 11/13/2023) [facility] of Past illness Narrative* Problem Noted [...] of this encounter (statuses as of 11/16/2023) [facility] History of Present illness Narrative* Nadine Chaudhary [...] PERIPHERAL IV DATA: Not applicable SIGNED BY: AISHWARYA Fonseca) September 23, 2021 1:48 PM documented in this encounterSt. Vincent Hospital01-28-2022 History of Present illness Narrative* Nadine Chaudhary [...] 19, 2021 11:48 AM documented in this encounterSt. Vincent Hospital12-12-2012 History of Past illness Narrative* Problem Noted Date Resolved Date Cystocele, midline 08/03/2012 10/31/2012 Rectocele 08/03/2012 10/31/2012 Uterine prolapse without mention of vaginal wall prolapse 08/03/2012 10/31/2012 Acute appendicitis without mention of peritoniti s 07/16/2007 09/19/2012 Hemorrhage of gastrointestinal tract, unspecifie d 08/28/2019 documented as of this encounter (statuses as of 11/12/2021) [facility] of [facility] illness Narrative* Problem Noted Date Resolved Date Cystocele, midline 08/03/2012 10/31/2012 Rectocele 08/03/2012 10/31/2012 Uterine prolapse without mention of vaginal wall prolapse 08/03/2012 10/31/2012 Acute appendicitis without mention of peritoniti s 07/16/2007 09/19/2012 Hemorrhage of gastrointestinal tract, unspecifie d 08/28/2019 documented as of this encounter (statuses as of 12/22/2021) [facility] Narrative* Problem Noted Date Resolved Date Cystocele, midline 08/03/2012 10/31/2012 Rectocele 08/03/2012 10/31/2012 Uterine prolapse without mention of vaginal wall prolapse 08/03/2012 10/31/2012 Acute appendicitis without mention of peritoniti s 07/16/2007 09/19/2012 Hemorrhage of gastrointestinal tract, unspecifie d 08/28/2019 documented as of this encounter (statuses as of 06/18/2022) [facility] Narrative* Problem Noted Date Resolved Date Cystocele, midline 08/03/2012 10/31/2012 Rectocele 08/03/2012 10/31/2012 Uterine prolapse without mention of vaginal wall prolapse 08/03/2012 10/31/2012 Acute appendicitis without mention of peritoniti s 07/16/2007 09/19/2012 Hemorrhage of gastrointestinal tract, unspecifie d 08/28/2019 documented as of this encounter (statuses as of 08/06/2022) [facility] Narrative* Problem Noted Date Resolved Date Cystocele, midline 08/03/2012 10/31/2012 Rectocele 08/03/2012 10/31/2012 Uterine prolapse without mention of vaginal wall prolapse 08/03/2012 10/31/2012 Acute appendicitis without mention of peritoniti s 07/16/2007 09/19/2012 Hemorrhage of gastrointestinal tract, unspecifie d 08/28/2019 documented as of this encounter (statuses as of 09/09/2022) [facility] Narrative* Problem Noted Date Resolved Date Cystocele, midline 08/03/2012 10/31/2012 Rectocele 08/03/2012 10/31/2012 Uterine prolapse without mention of vaginal wall prolapse 08/03/2012 10/31/2012 Acute appendicitis without mention of peritoniti s 07/16/2007 09/19/2012 Hemorrhage of gastrointestinal tract, unspecifie d 08/28/2019 documented as of this encounter (statuses as of 09/21/2022) [facility] Narrative* Problem Noted Date Resolved Date Cystocele, midline 08/03/2012 10/31/2012 Rectocele 08/03/2012 10/31/2012 Uterine prolapse without mention of vaginal wall prolapse 08/03/2012 10/31/2012 Acute appendicitis without mention of peritoniti s 07/16/2007 09/19/2012 Hemorrhage of gastrointestinal tract, unspecifie d 08/28/2019 documented as of this encounter (statuses as of 11/10/2022) [facility] Narrative* Problem Noted Date Resolved Date Cystocele, midline 08/03/2012 10/31/2012 Rectocele 08/03/2012 10/31/2012 Uterine prolapse without mention of vaginal wall prolapse 08/03/2012 10/31/2012 Acute appendicitis without mention of peritoniti s 07/16/2007 09/19/2012 Hemorrhage of gastrointestinal tract, unspecifie d 08/28/2019 documented as of this encounter (statuses as of 11/11/2022) [facility] Narrative* Problem Noted Date Resolved Date Cystocele, midline 08/03/2012 10/31/2012 Rectocele 08/03/2012 10/31/2012 Uterine prolapse without mention of vaginal wall prolapse 08/03/2012 10/31/2012 Acute appendicitis without mention of peritoniti s 07/16/2007 09/19/2012 Hemorrhage of gastrointestinal tract, unspecifie d 08/28/2019 documented as of this encounter (statuses as of 11/27/2022) [facility] Narrative* Problem Noted Date Resolved Date Cystocele, midline 08/03/2012 10/31/2012 Rectocele 08/03/2012 10/31/2012 Uterine prolapse without mention of vaginal wall prolapse 08/03/2012 10/31/2012 Acute appendicitis without mention of peritoniti s 07/16/2007 09/19/2012 Hemorrhage of gastrointestinal tract, unspecifie d 08/28/2019 documented as of this encounter (statuses as of 01/27/2023) [facility] Narrative* Problem Noted Date Diagnosed Date Resolved Date Cystocele, midline 08/03/2012 3 Rectocele 08/03/2012 10/31/2012 Uterine prolapse without men tion of vaginal wall prolapse 08/03/2012 10/31/2012 Acute appendicitis without m ention of peritonitis 07/16/2007 09/19/2012 Hemorrhage of gastrointestin al tract, unspecified 08/28/2019 documented as of this encounter (statuses as of 05/09/2023) [facility] Narrative* Problem Noted Date Diagnosed Date Resolved Date Cystocele, midline 08/03/2012 3 Rectocele 08/03/2012 10/31/2012 Uterine prolapse without men tion of vaginal wall prolapse 08/03/2012 10/31/2012 Acute appendicitis without m ention of peritonitis 07/16/2007 09/19/2012 Hemorrhage of gastrointestin al tract, unspecified 08/28/2019 documented as of this encounter (statuses as of 06/27/2023) [facility] History of Past illness Narrative* Problem Noted Date Diagnosed Date Resolved Date Cystocele, midline 08/03/2012 3 Rectocele 08/03/2012 10/31/2012 Uterine prolapse without men tion of vaginal wall prolapse 08/03/2012 10/31/2012 Acute appendicitis without m ention of peritonitis 07/16/2007 09/19/2012 Hemorrhage of gastrointestin al tract, unspecified 08/28/2019 documented as of this encounter (statuses as of 07/22/2023) [facility] History of Past illness Narrative* Problem Noted Date Diagnosed Date Resolved Date Cystocele, midline 08/03/2012 3 Rectocele 08/03/2012 10/31/2012 Uterine prolapse without men tion of vaginal wall prolapse 08/03/2012 10/31/2012 Acute appendicitis without m ention of peritonitis 07/16/2007 09/19/2012 Hemorrhage of gastrointestin al tract, unspecified 08/28/2019 documented as of this encounter (statuses as of 07/28/2023) [facility] Javier Cat [facility] Note Date/Time February 12, 2025 11:0 9am [facility] Medical Records Department [address] [place] [address] Anesthesia Postop Eval I 02/12/251107 MR#: [id number] Acct: [id number] Name: ELISHA GODFREY Rep #:[id number] : 1955 69 From: Javier Cat PCP: Dr. Kade Fry MD Status[place] Race: C Location: [place] [address] Anesthesia: Postop Eval I Current Vital Signs [...] Javier Ruelas Signature: Date CC: ~ Signed [facility] Work Phone: Consult note Author Jimmy Gillis [facility] Note Date/Time February 12, 2025 12:1 7pm [facility] Medical Records Department [address] [place] [address] Anesthesia Postop Eval II 02/12/25 1149 MR#: [id number] Acct: [id number] Name: ELISHA GODFREY Rep #:[id number] : 1955 69 From: Jimmy Oscar PCP: Dr. Kade Fry MD Status[place] Race: C Location: [place] [address] Anesthesia Postop Eval I Sum Postop Eval [...] MD Cosigner Signature: Date CC: ~ Signed [facility] Work Phone: Evaluation note* Diagnosis Tortuous colon- Primary Volvulus Internal hemorrhoids Internal hemorrhoids without mention of complication Diverticulosis Diverticulosis of colon (without mention of hemorrhage) Dysphagia, unspecified type [facility] encounter [facility]No assessment information [facility] Work Phone: Evaluation note* Diagnosis Tick bite of right thigh, initial encounter- Primary [facility] this [facility]* Diagnosis Hypertension, unspecified type documented in this encounter [facility] note* Diagnosis Essential hypertension- Primary Unspecified essential hypertension Mixed hyperlipidemia Cassidy's thyroiditis Chronic lymphocytic thyroiditis Medication management Encounter for long-term (current) use of other medications [facility] this [facility]* Diagnosis Medicare annual wellness [...] Dermatophytosis of nail [facility] Diagnosis Encounter for screening mammogram for breast cancer [facility]* Diagnosis Hypertension, unspecified type [facility]* Diagnosis Asymptomatic menopause- Primary [facility] Diagnosis Encounter for screening mammogram for breast cancer [facility] this [facility]* Diagnosis Hypertension, unspecified type [facility] this [facility]* Diagnosis Cat bite of left hand, initial encounter [facility] encounter [facility]* Diagnosis Spondylolisthesis at L4-L5 level documented [facility] encounter [facility]* Diagnosis Chronic low back pain without sciatica, unspecified back pain laterality [facility] this [facility]* Diagnosis Hyperlipidemia, mixed- Primary Mixed hyperlipidemia [...] Other abnormal glucose [facility] this [facility]* Diagnosis Encounter for Medicare annual wellness [...] malignant neoplasms, colon [facility] this [facility]* Diagnosis GERD without esophagitis Esophageal reflux [facility] this [facility]* Diagnosis Onychodystrophy- Primary Other specified disease of nail Pain in toes of both feet Diminished pulses in lower extremity Other symptoms involving cardiovascular system [facility] Diagnosis Raynaud phenomenon due to autoimmune disease (HCC)- Primary Numbness and tingling in left hand Disturbance of skin sensation Trigger finger of left thumb Carpal tunnel syndrome of left wrist Carpal tunnel syndrome [facility] Diagnosis Onychodystrophy- Primary Other specified disease of nail [facility] Diagnosis Abnormal mammogram- Primary Abnormal mammogram, unspecified [facility] Diagnosis Open wound of toe, initial encounter- Primary [facility] this [facility] Diagnosis Carpal tunnel syndrome of left wrist- Primary Carpal tunnel syndrome Trigger thumb, left thumb [facility] Diagnosis Abnormal mammogram Abnormal mammogram, unspecified [facility] Diagnosis Abnormal mammogram Abnormal mammogram, unspecified [facility] this [facility] Diagnosis Abnormal mammogram- Primary Abnormal mammogram, unspecified [facility]* General Surgery Location: None Selected [facility] Work Phone: Progress note Author Tavon Beauchamp [facility] Note Date/Time June 06, 2025 1 0:17am [facility] [address] [place] [address] OFFICE VISIT Date of Service: 06/06/25 MR#: [id number] Acct: [id number] Name: ELISHA GODFREY Rep #: [id number] : 1955 Provider: Dr. Rusty Beauchamp MD Age/Sex: 70/F Location: [facility] Status: Signed Intake Vital Signs 05/28/25 06:24 [...] 1,000 mg 1 g PO QDAY 5 05/28/25 History capsule methotrexate sodium 2.5 [...] and she reports that she is feeling a lot better. She states she noticed a difference with her stomach right away. They report minimal postoperative pain and did not require any of the prescribedpain medication during her recovery. She shares that her bowels are doing good and adds that they are better than what they had been. They had no wound concerns. They confirm that they are abiding by lifting restrictions. Inaddition to the above she is pleased to report that she had some issues with her legs and describes that she [...] post spigelian hernia repair, follow-up exam Z09 [facility] Medical History Loss of hearing Post-menopausal Bladder [...] of her colon and the spigelian hernia. 06/06/251731 <Electronically signed by Tavon Beauchamp MD> Date _ [facility]avon Beauchamp MD [facility] Signature: Date (if applicable) CC: Dr. Kade Fry MD ~ [place] [employer] [facility] Work Phone: Reason for referral (narrative)* Diagnostic Procedure Only (Routine) - Authorized Specialty Diagnoses / Procedures Referred By Lindaac t Referred To Contact [facility] Diagnoses Encounter for screening mammogram for breast cancer Procedures LEIGH SCREENING SCREENING MAMMOGRAPHY BI 2-VIEW BREAST INC Ena Vasques PA-C [address] [place] [address] [facility] [address] [place] [address] Referral ID Status Reason Start Date Expiration Date Visits Requested Visits Authorized [id number] Authorized Auto-Generat ed Referral 09/21/2022 10/21/[address] [facility] for referral (narrative)* Diagnostic Procedure Only (Routine) - Closed Specialty Diagnoses / Procedures Referred By Contac t Referred To Contact [facility] Diagnoses Encounter for screening mammogram for breast cancer Procedures LEIGH SCREENING SCREENING MAMMOGRAPHY BI 2-VIEW BREAST INC Ena Vasques PA-C [address] [place] [address] [facility] [address] [place] [address] Referral ID Status Reason Start Date Expiration Date V isits Requested Visits Authorized [id number] Closed Auto-Generate d Referral 09/21/2022 10/21/[address] [facility] for referral (narrative)* Diagnostic Procedure Only (Routine) - Closed Specialty Diagnoses / Procedures Referred By Karishma t Referred To Contact [facility] Diagnoses Encounter for screening mammogram for breast cancer Procedures LEIGH SCREENING SCREENING MAMMOGRAPHY BI 2-VIEW BREAST INC Ena Vasques PA-C [address] [place] [address] [facility] [address] [place] [address] Referral ID Status Reason Start Date Expiration Date V isits Requested Visits Authorized [id number] Closed Auto-Generate d Referral 09/21/2023 10/20/[address] [facility] for referral (narrative)* Diagnostic Procedure Only (Urgent) - Closed Specialty Diagnoses / Procedures Referred By Contac t Referred To Contact XR IMAGING Diagnoses Cat bite of left hand, initial encounter Procedures XR HAND GENERAL 3V PA/LAT/OBL LEFT RADEX HAND MINIMUM 3 VIEWS Yonas Cisse MD [address] [place] [address] [place] [address] Referral ID Status Reason Start Date Expiration Date V isits Requested Visits Authorized [id number] Closed Auto-Generate d Referral 08/24/2023 09/22/2024 1 1 [facility] for referral (narrative)* Diagnostic Procedure Only (Routine) - Closed Specialty Diagnoses / Procedures Referred By Contac t Referred To Contact XR IMAGING Diagnoses Spondylolisthesis at L4-L5 level Procedures XR LUMBAR LIMITED 2V FLEX/EXT RADEX SPINE LUMBOSACRAL 2/3 VIEWS Kade Fry MD [address] [place] [address] [place] [address] Referral ID Status Reason Start Date Expiration Date V isits Requested Visits Authorized [id number] Closed Auto-Generate d Referral 09/23/2021 10/23/2022 1 1 [facility] for referral (narrative)* Diagnostic Procedure Only (Routine) - Closed Specialty Diagnoses / Procedures Referred By Contac t Referred To Contact XR IMAGING Diagnoses Chronic low back pain without sciatica, unspecified back pain laterality Procedures XR LUMBAR PARS DEFECT 4V AP/LAT/BOTH OBL RADEX SPINE LUMBOSACRAL MINIMUM 4 VIEWS Kade Fry MD [address] [place] [address] Xr Imaging [id number] Referral ID Status Reason Start Date Expiration Date V isits Requested Visits Authorized [id number] Closed Auto-Generate d Referral 09/19/2021 10/19/2022 1 1 [facility] for referral (narrative)No reason for referral information availableWAdams [facility] Hospital Work Phone: Reason for visit Narrative* Diagnostic Procedure Only (Routine) - Closed Specialty Diagnoses / Procedures Referred By Contac t Referred To Contact [facility] Diagnoses Encounter for screening mammogram for breast cancer Procedures LEIGH SCREENING SCREENING MAMMOGRAPHY BI 2-VIEW BREAST INC Ena Vasques PA-C [address] [place] [address] [facility] [address] [place] [address] Referral ID Status Reason Start Date Expiration Date V isits Requested Visits Authorized [id number] Closed Auto-Generate d Referral 09/21/2022 10/21/[address] [facility] for visit Narrative* Diagnostic Procedure Only (Routine) - Closed Specialty Diagnoses / Procedures Referred By Contac t Referred To Contact [facility] Diagnoses Encounter for screening mammogram for breast cancer Procedures LEIGH SCREENING SCREENING MAMMOGRAPHY BI 2-VIEW BREAST INC CAD Ena Aguiar PA-C [address] [place] [address] [facility] [address] [place] [address] Referral ID Status Reason Start Date Expiration Date V isits Requested Visits Authorized [id number] Closed Auto-Generate d Referral 09/21/2023 10/20/[address] [facility] for visit Narrative* Diagnostic Procedure Only (Urgent) - Closed Specialty Diagnoses / Procedures Referred By Contac t Referred To Contact XR IMAGING Diagnoses Cat bite of left hand, initial encounter Procedures XR HAND GENERAL 3V PA/LAT/OBL LEFT RADEX HAND MINIMUM 3 VIEWS Yonas Cisse MD [address] [place] [id number] [place] [address] Referral ID Status Reason Start Date Expiration Date V isits Requested Visits Authorized [id number] Closed Auto-Generate d Referral 08/24/2023 09/22/[address] [facility] for visit Narrative* Diagnostic Procedure Only (Routine) - Closed Specialty Diagnoses / Procedures Referred By Contac t Referred To Contact XR IMAGING Diagnoses Spondylolisthesis at L4-L5 level Procedures XR LUMBAR LIMITED 2V FLEX/EXT RADEX SPINE LUMBOSACRAL 2/3 VIEWS Kade Fry MD [address] [place] [address] [place] [address] Referral ID Status Reason Start Date Expiration Date V isits Requested Visits Authorized [id number] Closed Auto-Generate d Referral 09/23/2021 10/23/[address] [facility] for visit Narrative* Diagnostic Procedure Only (Routine) - Closed Specialty Diagnoses / Procedures Referred By Lindaac t Referred To Contact XR IMAGING Diagnoses Chronic low back pain without sciatica, unspecified back pain laterality Procedures XR LUMBAR PARS DEFECT 4V AP/LAT/BOTH OBL RADEX SPINE LUMBOSACRAL MINIMUM 4 [place] [address] [place] [address] [place] [address] Referral ID Status Reason Start Date Expiration Date V isits Requested Visits Authorized [id number] Closed Auto-Generate d Referral 09/19/2021 10/19/[address] [facility] for visit Narrative* Diagnostic Procedure Only (Routine) - Closed Specialty Diagnoses / Procedures Referred By Karishma t Referred To Contact [facility] Diagnoses Encounter for screening mammogram for breast cancer Procedures LEIGH SCREENING W IRISH SCREENING DIGITAL BREAST TOMOSYNTHESIS BI SCREENING MAMMOGRAPHY BI 2-VIEW BREAST INC CAD Kade Fry MD [address] [place] [address] Phone: tel: fax: [facility] [address] [place] [address] Referral ID Status Reason Start Date Expiration Date V isits Requested Visits Authorized [id number] Closed Auto-Generate d Referral 09/21/2024 10/20/[address] [facility] for visit Narrative* Diagnostic Procedure Only (Routine) - Closed Specialty Diagnoses / Procedures Referred By Karishma t Referred To Contact [facility] Diagnoses Abnormal mammogram Procedures LEIGH DIAGNOSTIC RIGHT DIAGNOSTIC MAMMOGRAPHY COMPUTER-AIDED DETCJ UNI Kade Fry MD [address] [place] [address] Phone: tel: fax: [facility] [address] [place] [address] Referral ID Status Reason Start Date Expiration Date V isits Requested Visits Authorized [id number] Closed Auto-Generate d Referral 11/13/2024 12/13/[address] [facility] for visit Narrative* Diagnostic Procedure Only (Routine) - Closed Specialty Diagnoses / Procedures Referred By Karishma t Referred To Contact [facility] Diagnoses Abnormal mammogram Procedures US BREAST LTD RIGHT US BREAST UNI REAL TIME WITH IMAGE LIMITED Kade Fry MD [address] [place] [address] Phone: tel: fax: [facility] [place] [address] Referral ID Status Reason Start Date Expiration Date V isits Requested Visits Authorized [id number] Closed Auto-Generate d Referral 11/13/2024 12/13/[address] [facility] Chief Complaint and Reason for Visit Chief [...] reflux disease (GERD) A pri 2024 8:21am Reason for Visit Admit Date [...] 8:21 am GERD (gastroesophageal reflux disease) A [facility] 2024 8:21am Personal history of colon polyps, [...] 2024 11:31am Gastroesophageal reflux disease (GERD) A [facility] 2024 8:21am BLOATING, GERD December 18, 2024 12: 30pm PAIN- COPY PCP December 26, 2024 8:27am Test Result March 09, 2025 8:53 am Reason for Visit Admit Date Abdominal pain November 27, 2024 8:21 am GERD (gastroesophageal reflux disease) A [facility]2024 8:21am Personal history of colon polyps, unspec ified November 27, 2024 8:21am Abdominal pain February 12, 2025 8:46 am GERD (gastroesophageal reflux disease) J [facility] 2024 8:46am Personal history of colon [...] Admit Date GERD (gastroesophageal reflux disease) J [facility] 2024 8:46am Personal history of colon [...] Admit Date GERD (gastroesophageal reflux disease) J [facility] 2024 8:46am Personal history of colon [...] No May 26 6 11:02am Power of Tax Collection Coordinator No May 26 11:02am Documents on File Type Date Recorded 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 No February 08, 2025 11:46am Advance Directives No May 26, 2016 11:02am Advance Directive Response Recorded Date/ Time Do you have a Healthcare Power of Tax Collection Coordinator? No February 08, 2025 11:46am Do you have a Healthcare Power of Tax Collection Coordinator? No May 14, 2025 1:02pm Advance Directives No May 26, 2016 11:02am Advance Directive Response Recorded Date/ Time Do you have a Healthcare Power of Tax Collection Coordinator? No May 14, 2025 1:02pm Advance Directives No May 26, 2016 11:02am Assessments No Assessments Information Available Reason for Referral Specialty Diagnoses / Procedures Referred By Karishma canas Referred To Contact Podiatry Diagnoses Pain in toes of both feet Procedures CONSULT TO PODIATRY OFFICE/OUTPATIENT [facility] 60 MINUTES Kade Fry MD [address] [place] [address] Referral ID Status Reason Start Date Expiration Date Visits Requested Visits Authorized [id number] Authorized PCP Requested Referral 09/21/2024 09/21/2025 1 1 Specialty Diagnoses / Procedures Referred By Karishma canas Referred To Contact Orthopedics Diagnoses Numbness and tingling in left hand Trigger finger of left thumb Procedures CONSULT TO ORTHOPAEDICS OFFICE/OUTPATIENT [facility] 60 MINUTES Kade Fry MD [address] [place] [address] Referral ID Status Reason Start Date Expiration Date Visits Requested Visits Authorized [id number] Authorized PCP Requested Referral 09/21/2024 09/21/2025 1 1 Specialty Diagnoses / Procedures Referred By Contac t Referred To Contact Gastroenterology Diagnoses GERD without esophagitis Screening for colon cancer Dysphagia, unspecified type Procedures CONSULT TO GASTROENTEROLOGY OFFICE/OUTPATIENT [facility] 60 MINUTES Kade Fry MD [address] [place] [address] Referral ID Status Reason Start Date Expiration Date Visits Requested Visits Authorized [id number] Authorized PCP Requested Referral 09/21/2024 09/21/2025 1 1 Specialty Diagnoses / Procedures Referred By Contac t Referred To Contact [facility] Diagnoses Encounter for screening mammogram for breast cancer Procedures LEIGH SCREENING W IRISH SCREENING DIGITAL BREAST TOMOSYNTHESIS BI SCREENING MAMMOGRAPHY BI 2-VIEW BREAST INC CAD Kade Fry MD [address] [place] [address] [facility] [address] [place] [address] Referral ID Status Reason Start Date Expiration Date Visits Requested Visits Authorized [id number] Authorized Auto-Generat ed Referral 09/21/2024 10/20/2025 1 [...] or prosecute any alcohol or drug abuse patient.[facility] the event this information is protected by the Federal Confidentiality of Alcohol and Drug Abuse Patient Records regulations: The Federal rules restrict any use of the information to criminally investigate or prosecute any alcohol or drug abuse patient.[facility] the event this information is protected by the Federal Confidentiality of Alcohol and Drug Abuse Patient Records regulations: The Federal rules restrict any use of the information to criminally investigate or prosecute any alcohol or drug abuse patient.[facility] the event this information is protected by the Federal Confidentiality of Alcohol and Drug Abuse Patient Records regulations: The Federal rules restrict any use of the information to criminally investigate or prosecute any alcohol or drug abuse patient.[facility] the event this information is protected by the Federal Confidentiality of Alcohol and Drug Abuse Patient Records regulations: The Federal rules restrict any use of the information to criminally investigate or prosecute any alcohol or drug abuse patient.[facility] the event this information is protected by the Federal Confidentiality of Alcohol and Drug Abuse Patient Records regulations: The Federal rules restrict any use of the information to criminally investigate or prosecute any alcohol or drug abuse patient.[facility] the event this information is protected by the Federal Confidentiality of Alcohol and Drug Abuse Patient Records regulations: The Federal rules restrict any use of the information to criminally investigate or prosecute any alcohol or drug abuse patient.[facility] the event this information is protected by the Federal Confidentiality of Alcohol and Drug Abuse Patient Records regulations: The Federal rules restrict any use of the information to criminally investigate or prosecute any alcohol or drug abuse patient.[facility] the event this information is protected by the Federal Confidentiality of Alcohol and Drug Abuse Patient Records regulations: The Federal rules restrict any use of the information to criminally investigate or prosecute any alcohol or drug abuse patient.[facility] the event this information is protected by the Federal Confidentiality of Alcohol and Drug Abuse Patient Records regulations: The Federal rules restrict any use of the information to criminally investigate or prosecute any alcohol or drug abuse patient.[facility] the event this information is protected by the Federal Confidentiality of Alcohol and Drug Abuse Patient Records regulations: The Federal rules restrict any use of the information to criminally investigate or prosecute any alcohol or drug abuse patient.[facility] the event this information is protected by the Federal Confidentiality of Alcohol and Drug Abuse Patient Records regulations: The Federal rules restrict any use of the information to criminally investigate or prosecute any alcohol or drug abuse patient.[facility] the event this information is protected by the Federal Confidentiality of Alcohol and Drug Abuse Patient Records regulations: The Federal rules restrict any use of the information to criminally investigate or prosecute any alcohol or drug abuse patient.[facility] the event this information is protected by the Federal Confidentiality of Alcohol and Drug Abuse Patient Records regulations: The Federal rules restrict any use of the information to criminally investigate or prosecute any alcohol or drug abuse patient.[facility] the event this information is protected by the Federal Confidentiality of Alcohol and Drug Abuse Patient Records regulations: The Federal rules restrict any use of the information to criminally investigate or prosecute any alcohol or drug abuse patient.[facility] the event this information is protected by the Federal Confidentiality of Alcohol and Drug Abuse Patient Records regulations: The Federal rules restrict any use of the information to criminally investigate or prosecute any alcohol or drug abuse patient.[facility] HospitalIn the event this information is protected by the Federal Confidentiality of Alcohol and Drug Abuse Patient Records regulations: The Federal rules restrict any use of the information to criminally investigate or prosecute any alcohol or drug abuse patient.[facility] HospitalIn the event this information is protected by the Federal Confidentiality of Alcohol and Drug Abuse Patient Records regulations: The Federal rules restrict any use of the information to criminally investigate or prosecute any alcohol or drug abuse patient.[facility] HospitalIn the event this information is protected by the Federal Confidentiality of Alcohol and Drug Abuse Patient Records regulations: The Federal rules restrict any use of the information to criminally investigate or prosecute any alcohol or drug abuse patient.[facility] HospitalIn the event this information is protected by the Federal Confidentiality of Alcohol and Drug Abuse Patient Records regulations: The Federal rules restrict any use of the information to criminally investigate or prosecute any alcohol or drug abuse patient.[facility] HospitalIn the event this information is protected by the Federal Confidentiality of Alcohol and Drug Abuse Patient Records regulations: The Federal rules restrict any use of the information to criminally investigate or prosecute any alcohol or drug abuse patient.[facility] HospitalIn the event this information is protected by the Federal Confidentiality of Alcohol and Drug Abuse Patient Records regulations: The Federal rules restrict any use of the information to criminally investigate or prosecute any alcohol or drug abuse patient.[facility] HospitalIn the event this information is protected by the Federal Confidentiality of Alcohol and Drug Abuse Patient Records regulations: The Federal rules restrict any use of the information to criminally investigate or prosecute any alcohol or drug abuse patient.[facility] HospitalIn the event this information is protected by the Federal Confidentiality of Alcohol and Drug Abuse Patient Records regulations: The Federal rules restrict any use of the information to criminally investigate or prosecute any alcohol or drug abuse patient.[facility] HospitalIn the event this information is protected by the Federal Confidentiality of Alcohol and Drug Abuse Patient Records regulations: The Federal rules restrict any use of the information to criminally investigate or prosecute any alcohol or drug abuse patient.[facility] HospitalIn the event this information is protected by the Federal Confidentiality of Alcohol and Drug Abuse Patient Records regulations: The Federal rules restrict any use of the information to criminally investigate or prosecute any alcohol or drug abuse patient.[facility] HospitalIn the event this information is protected by the Federal Confidentiality of Alcohol and Drug Abuse Patient Records regulations: The Federal rules restrict any use of the information to criminally investigate or prosecute any alcohol or drug abuse patient.[facility] HospitalIn the event this information is protected by the Federal Confidentiality of Alcohol and Drug Abuse Patient Records regulations: The Federal rules restrict any use of the information to criminally investigate or prosecute any alcohol or drug abuse patient.[facility] HospitalIn the event this information is protected by the Federal Confidentiality of Alcohol and Drug Abuse Patient Records regulations: The Federal rules restrict any use of the information to criminally investigate or prosecute any alcohol or drug abuse patient.[facility] HospitalIn the event this information is protected by the Federal Confidentiality of Alcohol and Drug Abuse Patient Records regulations: The Federal rules restrict any use of the information to criminally investigate or prosecute any alcohol or drug abuse patient.[facility] HospitalIn the event this information is protected by the Federal Confidentiality of Alcohol and Drug Abuse Patient Records regulations: The Federal rules restrict any use of the information to criminally investigate or prosecute any alcohol or drug abuse patient.[facility] HospitalIn the event this information is protected by the Federal Confidentiality of Alcohol and Drug Abuse Patient Records regulations: The Federal rules restrict any use of the information to criminally investigate or prosecute any alcohol or drug abuse patient.[facility] HospitalIn the event this information is protected by the Federal Confidentiality of Alcohol and Drug Abuse Patient Records regulations: The Federal rules restrict any use of the information to criminally investigate or prosecute any alcohol or drug abuse patient.[facility] HospitalIn the event this information is protected by the Federal Confidentiality of Alcohol and Drug Abuse Patient Records regulations: The Federal rules restrict any use of the information to criminally investigate or prosecute any alcohol or drug abuse patient.[facility] HospitalIn the event this information is protected by the Federal Confidentiality of Alcohol and Drug Abuse Patient Records regulations: The Federal rules restrict any use of the information to criminally investigate or prosecute any alcohol or drug abuse patient.[facility] HospitalIn the event this information is protected by the Federal Confidentiality of Alcohol and Drug Abuse Patient Records regulations: The Federal rules restrict any use of the information to criminally investigate or prosecute any alcohol or drug abuse patient.[facility] HospitalIn the event this information is protected by the Federal Confidentiality of Alcohol and Drug Abuse Patient Records regulations: The Federal rules restrict any use of the information to criminally investigate or prosecute any alcohol or drug abuse patient.[facility] HospitalIn the event this information is protected by the Federal Confidentiality of Alcohol and Drug Abuse Patient Records regulations: The Federal rules restrict any use of the information to criminally investigate or prosecute any alcohol or drug abuse patient.[facility] HospitalIn the event this information is protected by the Federal Confidentiality of Alcohol and Drug Abuse Patient Records regulations: The Federal rules restrict any use of the information to criminally investigate or prosecute any alcohol or drug abuse patient.[facility] HospitalIn the event this information is protected by the Federal Confidentiality of Alcohol and Drug Abuse Patient Records regulations: The Federal rules restrict any use of the information to criminally investigate or prosecute any alcohol or drug abuse patient.[facility] HospitalIn the event this information is protected by the Federal Confidentiality of Alcohol and Drug Abuse Patient Records regulations: The Federal rules restrict any use of the information to criminally investigate or prosecute any alcohol or drug abuse patient.[facility] HospitalIn the event this information is protected by the Federal Confidentiality of Alcohol and Drug Abuse Patient Records regulations: The Federal rules restrict any use of the information to criminally investigate or prosecute any alcohol or drug abuse patient.[facility] HospitalIn the event this information is protected by the Federal Confidentiality of Alcohol and Drug Abuse Patient Records regulations: The Federal rules restrict any use of the information to criminally investigate or prosecute any alcohol or drug abuse patient.[facility] HospitalIn the event this information is protected by the Federal Confidentiality of Alcohol and Drug Abuse Patient Records regulations: The Federal rules restrict any use of the information to criminally investigate or prosecute any alcohol or drug abuse patient.[facility] HospitalIn the event this information is protected by the Federal Confidentiality of Alcohol and Drug Abuse Patient Records regulations: The Federal rules restrict any use of the information to criminally investigate or prosecute any alcohol or drug abuse patient.[facility] HospitalIn the event this information is protected by the Federal Confidentiality of Alcohol and Drug Abuse Patient Records regulations: The Federal rules restrict any use of the information to criminally investigate or prosecute any alcohol or drug abuse patient.[facility] HospitalIn the event this information is protected by the Federal Confidentiality of Alcohol and Drug Abuse Patient Records regulations: The Federal rules restrict any use of the information to criminally investigate or prosecute any alcohol or drug abuse patient.[facility] HospitalIn the event this information is protected by the Federal Confidentiality of Alcohol and Drug Abuse Patient Records regulations: The Federal rules restrict any use of the information to criminally investigate or prosecute any alcohol or drug abuse patient.[facility] HospitalIn the event this information is protected by the Federal Confidentiality of Alcohol and Drug Abuse Patient Records regulations: The Federal rules restrict any use of the information to criminally investigate or prosecute any alcohol or drug abuse patient.[facility] HospitalIn the event this information is protected by the Federal Confidentiality of Alcohol and Drug Abuse Patient Records regulations: The Federal rules restrict any use of the information to criminally investigate or prosecute any alcohol or drug abuse patient.[facility] Reason for Visit (unrecogniz ed section [...] 01/26/2023 [employer] Care Gaps Reason Comments Outside [id number] Ordered Reason Onset Date Comments Refill Request [...] both feet Procedures CONSULT TO PODIATRY OFFICE/OUTPATIENT [facility] 60 MINUTES Kade Fry MD [address] [place] [address] Phone: tel: fax: Referral ID Status Reason Start Date Expiration Date V isits Requested Visits Authorized [id number] Closed PCP Requested Referral 09/21/2024 09/21/2025 1 1 Reason Comments New Numbness Trigger Finger Referred by Dr. Steve apodaca Specialty Diagnoses / Procedures Referred By Karishma canas Referred To Contact Orthopedics Diagnoses Numbness and tingling in left hand Trigger finger of left thumb Procedures CONSULT TO ORTHOPAEDICS OFFICE/OUTPATIENT [facility] 60 MINUTES Kade Fry MD [address] [place] [address] Phone: tel: fax: Referral ID Status Reason Start Date Expiration Date V isits Requested Visits Authorized [id number] Closed PCP Requested Referral 09/21/2024 09/21/2025 1 [...] Reason Comments ext document Surgery note Outside [id number] Ordered Care Teams (unrecognized sec tion and content) Cleaning Handyman Relationship Specialty Start Date End Date Kade Fry MD [address] [place] [address] PCP - General Family Practice 08/28/19 Cleaning Handyman Relationship Specialty Start Date End Date Kade Fry MD [address] [place] [address] PCP - General Family Practice 08/28/19 Cleaning Handyman Relationship Specialty Start Date End Date Kade Fry MD [address] [place] [address] PCP - General Family Medicine 08/28/19 Cleaning Handyman Relationship Specialty Start Date End Date Kade Fry MD [address] [place] [address] PCP - General Family Medicine 08/28/19 Cleaning Handyman Relationship Specialty Start Date End Date Kade Fry MD [address] [place] [address] PCP - General Family Medicine 08/28/19 Team Status: Active Member Role Status Dates No Primary Care Physician Family Provider Active Dr. Kade Fry MD Primary Care Provider Active Team Status: Inactive Member Role Status Dates Dr. Kade Fry MD Primary Care Provider Active Dr. Dina Ferrer MD Attending Provider, Referring Provider Active Cleaning Handyman Relationship Specialty Start Date End Date Kade Fry MD [address] [place] [address] PCP - General Family Medicine 08/28/19 Cleaning Handyman Relationship Specialty Start Date End Date Kade Fry MD [address] [place] [address] PCP - General Family Medicine 08/28/19 Cleaning Handyman Relationship Specialty Start Date End Date Kade Fry MD [address] [place] [address] PCP - General Family Medicine 08/28/19 Cleaning Handyman Relationship Specialty Start Date End Date Kade Fry MD [address] [place] [address] PCP - General Family Medicine 08/28/19 Cleaning Handyman Relationship Specialty Start Date End Date Kade Fry MD [address] [place] [address] PCP - General Family Medicine 08/28/19 Cleaning Handyman Relationship Specialty Start Date End Date Kade Fry MD [address] [place] [address] PCP - General Family Medicine 08/28/19 Cleaning Handyman Relationship Specialty Start Date End Date Kade Fry MD [address] [place] [address] PCP - General Family Medicine 08/28/19 Cleaning Handyman Relationship Specialty Start Date End Date Kade Fry MD [address] [place] [address] PCP - General Family Medicine 08/28/19 Cleaning Handyman Relationship Specialty Start Date End Date Kade Fry MD [address] [place] [address] PCP - General Family Medicine 08/28/19 Cleaning Handyman Relationship Specialty Start Date End Date Kade Fry MD [address] [place] [address] PCP - General Family Medicine 08/28/19 Cleaning Handyman Relationship Specialty Start Date End Date Kade Fry MD [address] [place] [address] PCP - General Family Medicine 08/28/19 Cleaning Handyman Relationship Specialty Start Date End Date Kade Fry MD [address] [place] [address] PCP - General Family Medicine 08/28/19 Cleaning Handyman Relationship Specialty Start Date End Date Kade Fry MD [address] [place] [address] PCP - General Family Medicine 08/28/19 Cleaning Handyman Relationship Specialty Start Date End Date Kade Fry MD [address] [place] [address] PCP - General Family Medicine 08/28/19 Cleaning Handyman Relationship Specialty [place] [address] [place] [address] PCP - General Family Medicine 08/28/19 Cleaning Handyman Relationship Specialty Start Date End Date Kade Fry MD [address] [place] [address] PCP - General Family Medicine 08/28/19 Cleaning Handyman Relationship Specialty Start Date End Date Kade Fry MD [address] [place] [address] PCP - General Family Medicine 08/28/19 Cleaning Handyman Relationship Specialty Start Date End Date Kade Fry MD [address] [place] [address] PCP - General Family Medicine 08/28/19 Addie Birmingham APRN.ACT ENGLISH TUTOR [address] [place] [address] Protection Consultant Family [facility] 07/29/24 Ena Aguiar PA-C [address] [place] [address] [facility] 07/29/24 Cleaning Handyman Relationship Specialty Start Date End Date Kade Fry MD [address] [place] [address] PCP - General Family Medicine 08/28/19 Addie Birmingham APRN.ACT ENGLISH TUTOR [address] [place] [address] [facility] 07/29/24 Ena Aguiar PA-C [address] [place] [address] [facility] 07/29/24 Cleaning Handyman Relationship Specialty Start Date End Date Kade Fry MD [address] [place] [address] PCP - General Family Medicine 08/28/19 Addie Birmingham APRN.ACT ENGLISH TUTOR [address] [place] [address] [facility] 07/29/24 Ena Aguiar PA-C [address] [place] [address] [facility] 07/29/24 Cleaning Handyman Relationship Specialty Start Date End Date Kade Fry MD [address] [place] [address] PCP - General Family Medicine 08/28/19 Addie Birmingham APRN.ACT ENGLISH TUTOR [address] [facility] [place] [address] Protection Consultant Family Medicine 07/29/24 Ena Aguiar PA-C [address] [place] [address] Protection Consultant Family Medicine 07/29/24 Cleaning Handyman Relationship Specialty Start Date End Date Kade Fry MD [address] [place] [address] PCP - General Family Medicine 08/28/19 Addie Birmingham, DAMARIS.ACT ENGLISH TUTOR [address] [place] [address] Protection Consultant Family Medicine 07/29/24 Ena Aguiar PA-C [address] [place] [address] Protection Consultant Family Medicine 07/29/24 Cleaning Handyman Relationship Specialty Start Date End Date Kade Fry MD [address] [place] [address] PCP - General Family Medicine 08/28/19 Addie Birmingham, AGRICULTURE INTERNSHIP.ACT ENGLISH TUTOR [address] [facility] [place] [address] Protection Consultant Family Medicine 07/29/24 Ena Aguiar PA-C [address] [place] [address] Protection Consultant Family Medicine 07/29/24 Cleaning Handyman Relationship Specialty Start Date End Date Kade Fry MD [address] [place] [address] PCP - General Family Medicine 08/28/19 Addie Birmingham APRN.ACT ENGLISH TUTOR [address] [place] [address] Protection Consultant Family Medicine 07/29/24 Ena Aguiar PA-C [address] [place] [address] Protection Consultant Family Medicine 07/29/24 Cleaning Handyman Relationship Specialty Start Date End Date Kade Fry MD [address] [place] [address] PCP - General Family Medicine 08/28/19 Addie Birmingham APRN.ACT ENGLISH TUTOR [address] [place] [address] Protection Consultant Family Medicine 07/29/24 Ena Aguiar PA-C [address] [place] [address] Protection Consultant Family Medicine 07/29/24 Cleaning Handyman Relationship Specialty Start Date End Date Kade Fry MD [address] [place] [address] PCP - General Family Medicine 08/28/19 Addie Birmingham AGRICULTURE INTERNSHIP.ACT ENGLISH TUTOR [address] [place] [address] Protection Consultant Family Medicine 07/29/24 Ena Aguiar PA-C [address] [place] [address] Protection Consultant Family Medicine 07/29/24 Cleaning Handyman Relationship Specialty Start Date End Date Kade Fry MD [address] [place] [address] PCP - General Family Medicine 08/28/19 Addie Birmingham, DAMARIS.ACT ENGLISH TUTOR [address] [place], [place] [address] [facility] 07/29/24 Ena Aguiar PA-C [address] [place] [address] [facility] 07/29/24 Cleaning Handyman Relationship Specialty Start Date End Date Kade Fry MD [address] [place] [address] PCP - General Family Medicine 08/28/19 Addie Birmingham, AGRICULTURE INTERNSHIP.ACT ENGLISH TUTOR [address] [place] [address] [facility] 07/29/24 Ena Aguiar PA-C [address] [facility], [place] [address] [facility] 07/29/24 Team Status: Active Member Role Status [...] Attending Provider Active Start: November 14, 2024 Cleaning Handyman Relationship Specialty Start Date End Date Kade Fry MD [address] [place] [address] PCP - General Family Medicine 08/28/19 Addie Birmingham, AGRICULTURE INTERNSHIP.ACT ENGLISH TUTOR [address] [place] [address] Protection Consultant Family Medicine 07/29/24 Ena Aguiar PA-C [address] [place] [address] [facility] 07/29/24 Cleaning Handyman Relationship Specialty Start Date End Date Kade Fry MD [address] [place] [address] PCP - General Family Medicine 11/27/24 Addie Birmingham, AGRICULTURE INTERNSHIP.ACT ENGLISH TUTOR [address] [place] [address] Protection Consultant Family Medicine 07/29/24 Ena Aguiar PA-C [address] [place] [address] Protection Consultant Family Medicine 07/29/24 Cleaning Handyman Relationship Specialty Start Date End Date Kade Fry MD [address] [place] [address] PCP - General Family Medicine 11/27/24 Addie Birmingham APRN.ACT ENGLISH TUTOR [facility] [place] [address] [facility] 07/29/24 Ena Aguiar PA-C [facility] [place] [address] [facility] 07/29/24 Team Status: Inactive Member [...] November 27, 2024 End: November 27, 2024 Cleaning Handyman Relationship Specialty Start Date End Date Kade Fry MD [address] [place] [address] PCP - General Family Medicine 11/27/24 Addie Birmingham APRN.ACT ENGLISH TUTOR [address] [place] [address] [id number] [facility] 07/29/24 Ena Aguiar PA-C [address] [place], [place] [address] [facility] 07/29/24 Cleaning Handyman Relationship Specialty Start Date End Date Kade Fry MD [address] [place] [address] PCP - General [facility] Medicine 11/27/24 Addie Birmingham APRN.ACT ENGLISH TUTOR [address] [place] [address] [facility] 07/29/24 Ena Aguiar PA-C [address] [place] [address] [facility] 07/29/24 Cleaning Handyman Relationship Specialty Start Date End Date Kade Fry MD [address] [place] [address] PCP - General Family Medicine 11/27/24 Addie Birmingham APRN.ACT ENGLISH TUTOR [address] [place] [address] [facility] 07/29/24 Ena Aguiar PA-C [address] [place] [address] [facility] 07/29/24 Team Status: Inactive Member [...] December 26, 2024 End: December 26, 2024 Cleaning Handyman Relationship Specialty Start Date End Date Kade Fry MD [address] [place] [address] PCP - General Family Medicine 11/27/24 Ena Aguiar PA-C [address] [place] [phone] [facility] 07/29/24 Team Status: Inactive Member Role Status [...] Provider Active St art: February 12, 2025 Cleaning Handyman Relationship Specialty Start Date End Date Kade Fry MD [address] [place] [address] PCP - General Family Medicine 11/27/24 Addie Birmingham APRN.CNP [address] [place] [address] [id number] [facility] 01/22/25 Ena Aguiar PA-C [address] [place] [address] [phone] (work) [facility] 01/22/25 Team Status: Active Member Role/Relationship Status [...] 2024 End: November 27, 2024 Dr. Darrin Lozyoa DO Attending Provider Active Start: November 27, [...] Care Provider Active Start: April 02, 2025 ANY Paulino Attending Provider Active S tart: April 02, 2025 ANY Paulino Referring Provider [...] Referring Provider Active Start: May 03, 2025 Cleaning Handyman Relationship Specialty Start Date End Date Kade Fry MD [address] [place] [address] PCP - General Family Medicine 11/27/24 Addie Birmingham APRN.CNP [address] [place] [address] Protection Consultant Family Medicine 01/22/25 Ena Aguiar PA-C [address] [place] [address] Protection Consultant Family Medicine 01/22/25 Team Status: Active Member Role/Relationship Status [...] ized section and content) DATE CREATED AUTHOR 06/30/2025 [facility] DATE CREATED AUTHOR AUTHOR'S GEORGE PINTO 07/05/2025 [facility] FOR RECORDS PERTAINING TO PATIENTS WHO ARE [...] BE BASED ON THE PRIMARY CLINICAL RECORDS. [employer] [facility]. provides no warranty or guarantee of the accuracy or completeness of information in this document.
[2025-08-09] MEDS: Lactated Ringers 1,000 ML 15 ML IV (07:18)
--- NOTE | 2025-08-09 07:38 | PCM.PRE.AN2 ---
ASA Classification* ASA Classification ASA Classification: 2 Assessment & Plan Anesthesia* Anesthesia Assessment Anesthesia Assessment: Discussed sedation and/or anesthesia options, risks, benefits, and alternatives with patient/parents/legal guardian/POA. Questions invited. The patient/parents/legal guardian/POA seems to understand and agrees to proceed with anesthesia plan. Reviewed the physical assessment, medical history, allergy history and patient home medications list prior to surgery/procedure/anesthetic and documented any changes. Performed airway and anesthesia risk assessments. Anesthesia Type Anesthesia Type: MAC History Source History Obtained from:: Patient and Chart Anesthesia Focused Assessment* Temperature: 97.6 F Pulse Rate: 65 Blood Pressure: 155/79 Respiratory Rate: 16 Pulse Ox: 100 Oxygen Delivery Method: Room Air Airway Assessment Mouth opens: >3 cm Mallampati Score: II Teeth Condition: Intact Neck Range of motion (ROM): Full ROM Labs Anesthesia Preop lab: CBC WBC, (4.4-11.0) 3.3 K/mm3 L 06/29/25, 07:48 RBC, (4.2-5.4) 3.70 M/mm3 L 06/29/25, 07:48 Hgb, (12.0-15.0) 12.9 g/dL 06/29/25, 07:48 Hct, (37-47) 38.8 % 06/29/25, 07:48 Plt Count, (150-450) 181 K/mm3 06/29/25, 07:48 CHEMISTRY Potassium, (3.3-5.1) 3.9 mmol/L 06/29/25, 07:48 Sodium, (133-145) 141 mmol/L 06/29/25, 07:48 BUN, (4-19) 17 mg/dL 06/29/25, 07:48 Creatinine, (0.70-1.20) 0.71 mg/dL 06/29/25, 07:48 Glucose, (70-99) 96 mg/dL 06/29/25, 07:48 TSH, (0.300-4.200) 2.340 uIU/mL 11/27/24, 09:42 COAG Pre-Assessment Diagnosis/Proposed Procedure Planned Operative Procedure(s): COLONOSCOPY Anesthesia History 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 When Was Last Pacemaker Check QUESTION #4 FULL TEXT: You/Your Family Experience fever (hyperthermia) with Anesthesia Last Oral Intake Last Oral intake: Last Oral Intake NPO since 05:30 08/09/25 07:09 Meds taken in AM with sips of Yes 08/09/25 07:09 water? 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 Female Yes 08/07/25 14:28 HX of Motion Sickness No 08/07/25 14:28 HX of N/V After Surgery No 08/07/25 14:28 Non-Smoker Yes 08/07/25 14:28 Duration of Surgery greater No 08/07/25 14:28 than 60 minutes Number of Risk Factors 2 08/07/25 14:28 PONV Score Moderate Risk 08/07/25 14:28 Height & Weight Height & Weight: Anesthesia: Height & Weight Height 5 ft 1 in 08/09/25 07:09 Weight: 83.6 kg 08/09/25 07:09 Body Mass Index (BMI) 34.8 08/09/25 07:09 Respiratory Assessment Respiratory Assessment - c[employer] company flatbed driver: Respiratory Tract Infection Hx - c[employer] company flatbed driver Hx Respiratory Tract Infection No 08/07/25 14:28 STOP Sleep Apnea STOP Sleep Apnea - [employer] company flatbed driver: STOP Sleep Apnea - [employer] company flatbed driver Hx Hypertension Yes: ON MEDS BP CONTROLLED 08/07/25 14:28 Hx Sleep Apnea No 08/07/25 14:28 CPAP BIPAP Do you snore loudly (louder No 08/07/25 14:28 than talking or can be heard Do you often feel tired/ No 08/07/25 14:28 fatigued/ sleepy during daytime? Has anyone observed you stop No 08/07/25 14:28 breathing during sleep? STOP Results Negative 08/07/25 14:28 QUESTION #5 FULL TEXT : Do you snore loudly (louder than talking or can be heard through closed doors)? 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 Specify any problems Hx of Preganancy in last 3 No 08/07/25 14:28 Months Nurse Filling Out Transfusion VCHRISTIN 08/07/25 14:28 & Questions: Date: 08/07/25 08/07/25 14:28 Time: 14:30 08/07/25 14:28 Patient unable to answer at this time (ie. confused, unrespo /Reproduction History /Reproductive History - [employer] company flatbed driver: /Reproductive Hx- [employer] company flatbed driver Hx Now No 08/07/25 14:28 Gestational Age (in weeks): EDC: Hx Hx Para Hx Section SAB No 08/07/25 14:28 Does the father of the baby or his family experience fever w Father of the baby Malignant Hypertension history comment Active Medications Active Medications: Current Medications Generic Name Dose Route Start Last Admin Trade Name Freq PRN Reason Stop Dose Admin Lactated Ringer's 1,000 mls @ 15 mls/hr 08/09/25 07:00 08/09/25 07:18 IV 15 mls/hr .Q48H KIRIT Administration PFSH Medical History Loss of hearing Post-menopausal Bladder disease Easy bruising Back pain Injury of back History of diverticulitis History of stress test Wears glasses Rheumatoid arthritis TIA (transient ischemic attack) History of hiatal hernia Difficulty swallowing Non-smoker Shortness of breath on exertion Leg cramps History of edema GERD (gastroesophageal reflux disease) Osteopenia Hypertension Migraines Arthritis Home Medications ?Medication ?Instructions ?Recorded ?Last Taken ?Type Ibuprofen [Motrin] 800 mg PO TID PRN PRN Pain 05/26/16 05/27/25 History aspirin 81 mg tablet,delayed 81 mg PO MOWEFR 05/26/16 08/04/25 History release calcium carbonate (Oyster Shell 500 mg PO BID 05/26/16 05/27/25 History Calcium 500) cholecalciferol (vitamin D3) 25 2,000 unit PO BID 05/26/16 05/27/25 History mcg (1,000 unit) tablet (Vitamin D3) fexofenadine-pseudoephedrine ER 1 ea PO DAILY 05/26/16 05/27/25 History 180 mg-240 mg tablet,ext.release 24 hr (Carmelita-D 24 Hour) omega-3 fatty acids-fish oil 340 1 ea PO DAILY 05/26/16 08/05/25 History mg-1,000 mg capsule (Fish Oil) ramipril 5 mg capsule 5 mg PO DAILY 05/26/16 05/27/25 History vitamin B complex 1 ea PO DAILY 05/26/16 05/27/25 History ascorbic acid (vitamin C) 1,000 mg 1 g PO QDAY 11/21/24 05/27/25 History capsule methotrexate sodium 2.5 mg tablet 20 mg PO SA 11/21/24 05/27/25 History folic acid 1 mg tablet 2 mg PO QDAY 11/27/24 05/27/25 History budesonide 32 mcg/actuation nasal 2 spray intranasal QHS 05/14/25 05/27/25 History spray pantoprazole 40 mg tablet,delayed 40 mg PO DAILY GERD 05/14/25 08/09/25 04:45 History release zinc gluconate 50 mg tablet 50 mg PO DAILY 05/14/25 05/27/25 History Allergy/AdvReac Type Severity Reaction Status Date / Time lansoprazole (From Prevacid) Allergy Hives Verified 08/07/25 14:22 latex Allergy Unknown Verified 08/07/25 14:22 alendronate sodium (From AdvReac Unknown heartburn Verified 08/07/25 14:22 Fosamax) adhesive AdvReac Unknown Verified 08/07/25 14:22 diphenhydramine (From AdvReac FEEL Verified 08/07/25 14:22 Benadcassandra) WEIRD Family History Mother Arthritis Brother Arthritis Diabetes Heart disease Bleeding disorder Brother Colon cancer Bleeding disorder Surgical History Hx of inguinal hernia repair Status post spigelian hernia repair, follow-up exam History of esophagogastroduodenoscopy (EGD) History of colonoscopy History of tubal ligation H/O: hysterectomy History of appendectomy History of tonsillectomy Social History Smoking Status: Never smoker alcohol intake: never substance use type: does not use what type of physical activity do you participate in: none Review of Systems (Anesthesia) ROS Narrative System reviewed and no additional complaints, except as documented.
--- NOTE | 2025-08-09 08:26 | PCM.HP.STD ---
HPI - General General Date of Admission: 08/09/25 Date of Service: 08/09/25 Chief Complaint: colonic stenosis and abdominal pain HPI Narrative IRVIN GODFREY, is a 70 F who presents to evaluate intermittent sharp LLQ abdominal cramping pains that she's come to know as indicators of imminent BM. The pain is not always relieved by a BM however. She denies straining to pass BM, hematochezia and melena. We reviewed her bidirectional endoscopic procedures with pathology reports. Findings of 6cm colonic stenosis may correlate with her sharp pains experienced just before BM. She reports several BMs throughout a day, all feeling complete. [facility] Medical History Loss of hearing Post-menopausal Bladder disease Easy bruising Back pain Injury of back History of diverticulitis History of stress test Wears glasses Rheumatoid arthritis TIA (transient ischemic attack) History of hiatal hernia Difficulty swallowing Non-smoker Shortness of breath on exertion Leg cramps History of edema GERD (gastroesophageal reflux disease) Osteopenia Hypertension Migraines Arthritis Home Medications ?Medication ?Instructions ?Recorded ?Last Taken ?Type Ibuprofen [Motrin] 800 mg PO TID PRN PRN Pain 05/26/16 05/27/25 History aspirin 81 mg tablet,delayed 81 mg PO MOWEFR 05/26/16 08/04/25 History release calcium carbonate (Oyster Shell 500 mg PO BID 05/26/16 05/27/25 History Calcium 500) cholecalciferol (vitamin D3) 25 2,000 unit PO BID 05/26/16 05/27/25 History mcg (1,000 unit) tablet (Vitamin D3) fexofenadine-pseudoephedrine ER 1 ea PO DAILY 05/26/16 05/27/25 History 180 mg-240 mg tablet,ext.release 24 hr (Carmelita-D 24 Hour) omega-3 fatty acids-fish oil 340 1 ea PO DAILY 05/26/16 08/05/25 History mg-1,000 mg capsule (Fish Oil) ramipril 5 mg capsule 5 mg PO DAILY 05/26/16 05/27/25 History vitamin B complex 1 ea PO DAILY 05/26/16 05/27/25 History ascorbic acid (vitamin C) 1,000 mg 1 g PO QDAY 11/21/24 05/27/25 History capsule methotrexate sodium 2.5 mg tablet 20 mg PO SA 11/21/24 05/27/25 History folic acid 1 mg tablet 2 mg PO QDAY 11/27/24 05/27/25 History budesonide 32 mcg/actuation nasal 2 spray intranasal QHS 05/14/25 05/27/25 History spray pantoprazole 40 mg tablet,delayed 40 mg PO DAILY GERD 05/14/25 08/09/25 04:45 History release zinc gluconate 50 mg tablet 50 mg PO DAILY 05/14/25 05/27/25 History Allergy/AdvReac Type Severity Reaction Status Date / Time lansoprazole (From Prevacid) Allergy Hives Verified 08/07/25 14:22 latex Allergy Unknown Verified 08/07/25 14:22 alendronate sodium (From AdvReac Unknown heartburn Verified 08/07/25 14:22 Fosamax) adhesive AdvReac Unknown Verified 08/07/25 14:22 diphenhydramine (From AdvReac FEEL Verified 08/07/25 14:22 Benadryl) WEIRD Family History Mother Arthritis Brother Arthritis Diabetes Heart disease Bleeding disorder Brother Colon cancer Bleeding disorder Surgical History Hx of inguinal hernia repair Status post spigelian hernia repair, follow-up exam History of esophagogastroduodenoscopy (EGD) History of colonoscopy History of tubal ligation H/O: hysterectomy History of appendectomy History of tonsillectomy Social History Smoking Status: Never smoker alcohol intake: never substance use type: does not use what type of physical activity do you participate in: none ROS Constitutional Constitutional: Denies fatigue, fever(s), poor appetite, weight gain or weight loss Gastrointestinal Gastrointestinal: Denies belching, bloating, change in bowel habits, change in stool character, chewing difficulty, coffee ground emesis, constipation, cramping, diarrhea, dyspepsia, dysphagia, early satiety, excessive flatus, fecal incontinence, heartburn, hematemesis, hematochezia, hemorrhoids, loose stools, melena, nausea, odynophagia, rectal bleeding, tenesmus, vomiting or weight changes Patient's Goals Of Care . What would you like to achieve or improve as a result of your hospital stay?: Nothing Vital Signs Vital Signs Vital Signs: 08/09/25 07:09 08/09/25 07:09 08/09/25 07:09 Temperature 97.6 F L Temperature Source Temporal Pulse Rate 65 Respiratory Rate 16 Respiratory Pattern Normal Blood Pressure 155/79 H Blood Pressure Mean 104 Blood Pressure Source Monitor Blood Pressure Position Semi-Fowlers Blood Pressure Location Left Arm Baseline BP 155/79 Pulse Ox 100 Oxygen Delivery Method Room Air 08/09/25 07:40 Temperature 97.6 F L Temperature Source Pulse Rate 65 Respiratory Rate 16 Respiratory Pattern Blood Pressure 155/79 H Blood Pressure Mean Blood Pressure Source Blood Pressure Position Blood Pressure Location Baseline BP Pulse Ox 100 Oxygen Delivery Method Room Air Weight Weight: 184 lb 4.903 oz Body Mass Index (BMI) 34.8 Physical Exam Const alert, oriented x3, no apparent distress and healthy appearing General Appearance: cooperative GI normal to inspection, nondistended, normoactive bowel sounds, soft to palpation, non-tender and non-distended Percussion: normal to percussion Rectal Exam: deferred Assessment & Plan Assessment/Plan (1) Abdominal pain: QUALIFIERS: Abdominal location: left lower quadrant Qualified Code(s): R10.32 - Left lower quadrant pain (2) Personal history of colon polyps, unspecified: PLAN: She will undergo colonoscopy. She was explained alternatives, risk and benefits including withstanding bleeding, infection, subsequent perforation, emergent . She will have an ASA of 3.
--- NOTE | 2025-08-09 09:04 | OP.COLON_ITS ---
Patient Name: Elisha Fernandez Procedure Date: 08/09/2025 8:27 AM Date of : 1955 Age: 70 Procedure: Colonoscopy Indications: Abdominal pain in the left lower quadrant Providers: Darrin Lozoya DO Referring MD: Kade Frances MD Medicines: Monitored Anesthesia Care Patient Profile: This is a 70 year old female. Refer to note in patient chart for documentation of history and physical. Last Colonoscopy: within the past 3 years. Complications: No immediate complications. Procedure: Pre-Anesthesia Assessment: - Prior to the procedure, a History and Physical was performed, and patient medications and allergies were reviewed. The patient is competent. The risks and benefits of the procedure and the sedation options and risks were discussed with the patient. All questions were answered and informed consent was obtained. Patient identification and proposed procedure were verified by the physician in the pre-procedure area. Mental Status Examination: alert and oriented. Airway Examination: normal oropharyngeal airway and neck mobility. Respiratory Examination: clear to auscultation. CV Examination: normal. Prophylactic Antibiotics: The patient does not require prophylactic antibiotics. Prior Anticoagulants: The patient has taken no anticoagulant or antiplatelet agents except for NSAID medication. ASA Grade Assessment: II - A patient with mild systemic disease. After reviewing the risks and benefits, the patient was deemed in satisfactory condition to undergo the procedure. The anesthesia plan was to use monitored anesthesia care (MAC). Immediately prior to administration of medications, the patient was re-assessed for adequacy to receive sedatives. The heart rate, respiratory rate, oxygen saturations, blood pressure, adequacy of pulmonary ventilation, and response to care were monitored throughout the procedure. The physical status of the patient was re-assessed after the procedure. After I obtained informed consent, the scope was passed under direct vision. Throughout the procedure, the patient's blood pressure, pulse, and oxygen saturations were monitored continuously. The colonoscope was introduced through the anus and advanced to the cecum, identified by appendiceal orifice and ileocecal valve. The colonoscopy was performed without difficulty. The patient tolerated the procedure well. The quality of the bowel preparation was adequate. The ileocecal valve, appendiceal orifice, and rectum were photographed. Scope In: 8:42:47 AM Scope Withdrawal Time 0 hours 7 minutes 42 seconds Scope Out: 8:54:35 AM Total Procedure Duration Time 0 hours 11 minutes 48 seconds Findings: The perianal and digital rectal examinations were normal. Multiple small and large-mouthed diverticula were found in the recto-sigmoid colon, sigmoid colon, descending colon and splenic flexure. The exam was otherwise without abnormality on direct and retroflexion views. Impression: - Diverticulosis in the recto-sigmoid colon, in the sigmoid colon, in the descending colon and at the splenic flexure. - The examination was otherwise normal on direct and retroflexion views. - No specimens collected. Recommendation: - Discharge patient to home. - Resume previous diet. - Continue present medications. - Repeat colonoscopy in 5 years for surveillance. Procedure Code(s): --- Professional --- 53906, Colonoscopy, flexible; diagnostic, including collection of specimen(s) by brushing or washing, when performed (separate procedure) CPT copyright 2021 [employer]. All rights reserved. The codes documented in this report are preliminary and upon molding and trim installer review may be revised to meet current compliance requirements. Darrin Lozoya DO 08/09/2025 9:04:32 AM This report has been signed electronically. Number of Addenda: 0 Note Initiated On: 08/09/2025 8:27 AM
--- NOTE | 2025-08-09 09:04 | OP.PROVAT_ITS ---
08/09/2025 Kade Frances MD Re : Colonoscopy procedure for Elisha Fernandez Dear Dr. Frances This procedure was performed on July. My impressions and recommendations are as follows: Impressions : - Diverticulosis in the recto-sigmoid colon, in the sigmoid colon, in the descending colon and at the splenic flexure. - The examination was otherwise normal on direct and retroflexion views. - No specimens collected. Recommendations : - Discharge patient to home. - Resume previous diet. - Continue present medications. - Repeat colonoscopy in 5 years for surveillance. My findings are described in the full procedure note, which is enclosed. If I can be of further assistance, please feel free to contact me at . Sincerely, Darrin Lozoya, 08/09/2025 9:04:32 AM This report has been signed electronically.
--- NOTE | 2025-08-09 09:05 | PCM.POST.ANE ---
Anesthesia: Postop Eval I Current Vital Signs Temperature: 97.2 F Pulse Rate: 62 Blood Pressure: 117/69 Respiratory Rate: 16 Pulse Ox: 99 Oxygen Delivery Method: Room Air Assessment Airway patent: Yes Spontaneous unlabored respirations: Yes Mental status: Awake and Calm nausea: No Vomiting: No Anesthesia Complication: No Fluid Hydration Crystalloid volume administer (ml): 500 Total IV fluid infused: 500 Progress Note Anesthesia document: Postop Eval 1 completed: Yes
--- NOTE | 2025-08-09 12:48 | PCM.POSTANE2 ---
Anesthesia Postop Eval I Sum Postop Eval Completion status Anesthesia document: Postop Eval 1 completed: Yes Anesthesia Postop Eval I Summary Anesthesia Postop Eval I Summary: Anesthesia Postop Eval I: Assessment Summary Airway patent Yes 08/09/25 09:06 [email or web address] Spontaneous unlabored Yes 08/09/25 09:06 [email or web address] respirations Mental status Awake,Calm 08/09/25 09:06 [email or web address] nausea No 08/09/25 09:06 [email or web address] Vomiting No 08/09/25 09:06 [email or web address] Anesthesia Postop Eval I: Fluid Summary Crystalloid volume administer 500 08/09/25 09:06 [email or web address] (ml) Colloids volume administered ( ml) Blood Product volume administered (ml) Total IV fluid infused 500 08/09/25 09:06 [email or web address] Anesthesia Postop Eval I: Summary Notes Anesthesia Complication No 08/09/25 09:06 [email or web address] Anesthesia Complication Comment: Post-operative progress note Anesthesia: Postop Eval II Evaluation Mental status: Awake and Calm Pain Level: 1 nausea: No Vomiting: No Complications Anesthesia Complication: No
== END 2025-08-09 09:39 | disposition home or self-care (01) ==
LOC: EN 06:56 → AC 06:58
PROVIDERS: PCP Family Medicine; Referring Provider Family Medicine; Visit Provider Internal Medicine Gastroenterology
PROC: 0DJD8ZZ Inspection of Lower Intestinal Tract, Via Natural or Artificial Opening Endoscopic (ICD-10-PCS; CPT 45378; principal; 2025-08-09 08:10)
DX: K57.30 Diverticulosis of large intestine without perforation or abscess without bleeding (principal); I10 Essential (primary) hypertension; R10.32 Left lower quadrant pain; Z86.0100 Personal history of colon polyps, unspecified; K21.9 Gastro-esophageal reflux disease without esophagitis; Z79.899 Other long term (current) drug therapy
CPT/HCPCS: 45378; J2405